=== PATIENT | female | born 1990 | race Caucasian/White ===

== ENCOUNTER 2018-06-07 02:19 | Outpatient (CLI) | payer BC, SELFPAY ==
--- NOTE | 2018-06-07 08:25 | DI.RAD_ITS ---
SYMPTOM/DIAGNOSIS: ABD PAIN, NAUSEA AROUND TIME OF EATING, R10.9 ABDOMINAL ULTRASOUND: Routine examination was performed. The aorta and IVC are unremarkable. The liver has a normal appearance. The gallbladder and common duct are unremarkable. The pancreatic tail cannot be seen but the remainder of the pancreas is unremarkable. The spleen and kidneys have a normal appearance. IMPRESSION: Negative abdominal ultrasound.
== END 2018-06-07 02:39 ==
PROVIDERS: PCP Pediatrics; Visit Provider Family Medicine
DX: R10.9 Unspecified abdominal pain (principal); R11.0 Nausea
CPT/HCPCS: 76700

== ENCOUNTER 2018-06-28 01:39 | Outpatient (CLI) | payer BC, SELFPAY ==
--- NOTE | 2018-06-28 08:30 | DI.NM_ITS ---
SYMPTOMS/DIAGNOSIS: ABDOMINAL PAIN AND NAUSEA X 3 MONTHS, R10.9 CCK HEPATOBILIARY SCAN: 5.1 mCi of technetium 99m mebrofenin were administered IV. There is prompt visualization of the small bowel and gallbladder. 1.2 mcg of CCK was infused over 45 minutes. The patient experienced mild abdominal pain similar to her previous symptoms. The gallbladder ejection fraction is normal and calculated at 92%. IMPRESSION: Normal gallbladder ejection fraction of 92%.
== END 2018-06-28 01:59 ==
PROVIDERS: PCP Family Medicine; Visit Provider Family Medicine
DX: R10.84 Generalized abdominal pain (principal); R11.0 Nausea
CPT/HCPCS: 78227

== ENCOUNTER 2019-09-01 17:04 | Emergency (ER) | payer MEDICAID, SELFPAY ==
[2019-09-01 17:10] VITALS: BP 148/89; PULSE 102; RESP 16; TEMP 36.8; O2SAT 97
--- NOTE | 2019-09-01 17:28 | W.ED.GENAD ---
Discharge Plan Disposition Patient Disposition: HOME Condition: Stable Discharge Details Chief Complaint: Orthopedic Clinical Impression: Sprain of forearm, left Primary Care Provider: Jaqui Romero ED Provider: Geraldo Umaña Home Meds and New Rx's Prescriptions: No Action No Known Home Meds RF: 0 Discharge Instructions Instructions: Sprain (ED) Additional Instructions: Avoid activities that worsen pain. Rest your arm over the next 1 to 2 weeks. Please use wrist splint for the next 1 to 2 weeks. Please take ibuprofen over the counter. Take 600mg by mouth every 6 hours as needed for pain. Please contact your primary care physician to arrange follow-up. Return to the ER for any worsening or new concerning symptoms. If symptoms persist despite treatment, you will need additional work-up including potential diagnostic imaging. Referrals: Jaqui Romero [Primary Care Provider] - Medical Decision Making 28-year-old female here with pain, tenderness and mild swelling distal posterior forearm over the past 2 days after raking leaves. Suspect forearm strain/sprain. Plan for immobilization with splint and increased dose of NSAID. NSAID dosing was reviewed with the patient. Patient was encouraged to rest her arm and maintain immobilization. We discussed imaging forearm. While I do not think acute fracture is present, there are other potential bony abnormalities that could result in presentation. Patient provided informed refusal of imaging at this time and noted that she would plan on obtaining imaging should symptoms not improve with conservative management. Usual and customary discharge instructions were provided. I did stress the need to return immediately should she have any worsening or new concerning symptoms and to return for repeat assessment should symptoms not improve. HPI General Mode of arrival: ambulatory. Date/Time Provider Initiated Documentation: 09/01/19 17:28. Limitations to Documentation: no limitations. Information obtained by: patient. HPI Narrative: 28-year-old female presents with chief complaint of left forearm pain. Pain started 2 days ago and has persisted despite taking intermittent ibuprofen. Patient notes pain started the evening after raking leaves. Pain is moderate and worse with movement of her wrist. She denies any associated direct trauma to her wrist or forearm. No associated rash or fever. She does not recall any particular injury. Related Data Home Medications Medication Instructions Recorded Confirmed Unknown [No Known Home Meds] 09/01/19 09/01/19 Allergies Allergy/AdvReac Type Severity Reaction Status Date / Time No Known Allergies Allergy Unverified 09/01/19 17:15 General Stated Complaint: Orthopedic ALYSIA: 4 Review of Systems Constitutional Constitutional: Denies fever(s) Musculoskeletal Musculoskeletal: Reports as per HPI [facility] Social History Smoking/Tobacco Use Status: Never Alcohol Intake: current Alcohol Intake frequency: holidays/special occasions only Substance use type: does not use Do you feel safe at home: Yes Do you feel safe in your relationship?: Yes Exam Const General: cooperative and healthy appearing Cardio Rate: regular rate Rhythm: regular rhythm Pulses: radial pulses present on the left 2+ Extrem Right upper extremity: elbow/forearm Details: tenderness Location: other (Distal forearm posteriorly), swelling (Mid to distal posterior forearm mild) and other (Pain with supination and extension at wrist); no unusual warmth, no abrasions and no ecchymosis and wrist Details: no tenderness and no swelling Course Vital Signs Vital signs: Vital Signs Temperature 36.8 C 09/01/19 17:10 Pulse 102 H 09/01/19 17:10 Respiratory Rate 16 09/01/19 17:10 Blood Pressure 148/89 H 09/01/19 17:10 Pulse Oximetry 97 09/01/19 17:10 Temperature 36.8 C 09/01/19 17:10 Temperature Source Tympanic 09/01/19 17:10 Pulse 102 H 09/01/19 17:10 Respiratory Rate 16 09/01/19 17:10 Respiratory Effort Non-Labored 09/01/19 17:14 Blood Pressure 148/89 H 09/01/19 17:10 Blood Pressure Position Sitting 09/01/19 17:10 Pulse Oximetry 97 09/01/19 17:10 Oxygen Delivery Method Room Air 09/01/19 17:10 Oxygen Flow Rate 0 09/01/19 17:10 Pain Level 7 09/01/19 17:10
== END 2019-09-01 17:46 | disposition home or self-care (01) ==
PROVIDERS: Emergency Provider Student in an Organized Health Care Education/Training Program; PCP Family Medicine
DX: S63.592A Other specified sprain of left wrist, initial encounter (principal); X50.3XXA Overexertion from repetitive movements, initial encounter
CPT/HCPCS: 29125; 99283; L3908

== ENCOUNTER 2020-06-28 02:37 | Outpatient (CLI) | payer MEDICAID, SELFPAY ==
--- NOTE | 2020-06-28 | DI.US_ITS ---
EXAM: MG MAMMO DIAGNOSTIC BI CLINICAL HISTORY: DIAGNOSTIC, RT BREAST LUMP, N63.0. TECHNIQUE: Craniocaudal and mediolateral oblique Full Field Digital Mammography views with Computer Aided Diagnosis followed by Tomosynthesis and right breast ultrasound. COMPARISON: No previous for comparison. FINDINGS: Mammography/Tomosynthesis: Masses/Architectural Distortion: There is a 3 cm spiculated mass with associated architectural distor tion and microcalcifications 3 cm from the nipple. This corresponds to the palpable abnormality. Microcalcifictions: Please see the above discussion Skin Thickening/Nipple Retraction: None. Right breast US: Echotexture: Please see below. Shadowing: Please see below. Cyst: None. Solid lesions: There is a 3.2 x 1.2 cm hypoechoic spiculated area at the 12 o'clock position of the r ight breast immediately adjacent to the nipple. There is an associated hypoechoic nodule measuring 0 .7 cm with irregular borders. This area corresponds to the mammographic and palpable abnormality. Ductal dilation: None. Axilla: 4 well-circumscribed hypoechoic nodes are seen in the axilla. The largest measures 1.6 cm in length. IMPRESSION: 1. 3 cm spiculated mass with associated architectural distortion of microcalcifications in the retroa reolar region consistent with the patient's palpable abnormality. 2. Findings are suspicious for malignancy. 3. The findings were discussed with the patient on the date of the examination. BI-RADS Category 5 - Highly Suggestive of Malignancy: Biopsy recommended Breast Density - Category C - Heterogeneously dense Breast density Category C or D implies that the patient has dense breast tissue. Dense breast tissue can make it harder to find cancer on a mammogram. Dense breast tissue is also associated with an incr eased risk of breast cancer. This information about the result of the mammogram report was provided to the patient to raise their awareness. Use this report when you speak with the patient about their risks for breast cancer, which includes their family history. At that time, you may recommend additional screening tests (Ultrasoun d or MRI) as these tests may add significant information. A negative radiographic report should not delay biopsy if a dominant or clinically suspicious mass is present. Up to ten percent of cancers are not identified on mammography. A negative report may reinforce clinical impression. Adenosis and dense breasts may obscure an underlying neoplasm. False positive reports average 6 to 10%. Patient will receive a letter notifying them of these results.
== END 2020-06-28 02:57 ==
PROVIDERS: PCP Nurse Practitioner Family; Visit Provider Nurse Practitioner Family
DX: R92.0 Mammographic microcalcification found on diagnostic imaging of breast (principal); R92.8 Other abnormal and inconclusive findings on diagnostic imaging of breast
CPT/HCPCS: 76642; 77062; 77066; G0279

== ENCOUNTER 2020-07-07 18:30 | Emergency (ER) | payer MEDICAID, SELFPAY ==
[2020-07-07 18:37] VITALS: BP 161/98; PULSE 99; RESP 18; TEMP 37.2; O2SAT 99
--- NOTE | 2020-07-07 19:14 | ED.GENADUL_ITS ---
Discharge Plan Disposition Patient Disposition: HOME Condition: Stable Discharge Details Clinical Impression: Dry mouth, Throat discomfort Primary Care Provider: Charleen Williamson ED Provider: Valarie Madden Home Meds and New Rx's Prescriptions: No Action fluoxetine 10 mg capsule 20 mg PO DAILY RF: 0 Mucinex DM 30-600 mg Tablet Extended Release 12 Hr 1 tab PO PRN PRNRF: 0 Discharge Instructions Instructions: Pharyngitis (ED), Dry Mouth (ED) Additional Instructions: Gargle with warm salt water up to 3 times daily as needed. Increase oral fluids. Please discuss your symptoms with your primary care provider. Follow up with primary care provider in 3-5 days. Return to ED sooner if any worsening or concerns. Increase oral fluids. Please take Tylenol or Ibuprofen with food every 4-6 hours as needed for pain and swelling. The strep swab obtained today was negative. As always thank you for allowing us to care for you if you have any other concerns, hesitate to return to the ED. Referrals: Charleen Williamson [Primary Care Provider] - Medical Decision Making 29-year-old female presents to the ER chief complaint of dry mouth and throat irritation. She attributes the symptoms to new diet medication of Prozac which she has been taking for approximately 2 weeks increased dose just yesterday to 20 mg by her PCP. She also reports some increased phlegm to her her throat, she denies any productive cough, fever, myalgias or chills. She does endorse a rece nt diagnosis of breast cancer she does have upcoming follow-up through her PCP for this. At this time rapid strep swab ordered and obtained. POC rapid strep negative. Patient does appear anxious, I did offer anxiety medications. Patient prefers to follow-up with PCP regarding this. Patient was instructed to increase oral fluids, suck on hard candies if needed for dry mouth. Patient is hemodynamically stable, no tachycardia, no increased work of breathing no evidence of shortness of breath or cough. Patient instructed to follow-up with PCP. This text was generated using [employer] system, please disregard any oddities of phrase or misspellings. HPI General Mode of arrival: ambulatory . Date/Time Provider Initiated Documentation: 07/07/20 18:43 . Limitations to Documentation: no limitations . Information obtained by: patient . HPI Narrative: 29-year-old female presents to the ER chief complaint of dry mouth and throat irritation. She attributes the symptoms to new diet medication of Prozac which she has been taking for approximately 2 weeks increased dose just yesterday to 20 mg by her PCP. She also reports some increased phlegm to her her throat, she denies any productive cough, fever, myalgias or chills. She does endorse a recent diagnosis of breast cancer she does have upcoming follow-up through her PCP for this. Related Data Home Medications Medication Instructions Recorded Confirmed dextromethorphan-guaifenesin 1 tab PO PRN PRN 07/07/20 07/07/20 [Mucinex DM] fluoxetine 20 mg PO DAILY 07/07/20 07/07/20 Allergies Allergy/AdvReac Type Severity Reaction Status Date / Time No Known Allergies Allergy Unverified 07/07/20 18:42 General Stated Complaint: GenMedical ALYSAI: 4 Review of Systems Narrative: Constitutional: Negative for weight loss, alert and oriented, well groomed, normal body habitus, appears comfortable. HEENT: Denies trauma, headaches, blurry vision, nasal discharge, trouble swallowing. Dry mouth, throat irritation. Chest: Denies chest pain, palpitations, irregular rhythm, hypertension. Respiratory: Denies Shortness of breath, cough, hemoptysis. GI: Denies abdominal pain, nausea, vomiting, diarrhea, constipation. : Denies dysuria, hematuria, flank pain, rectal bleeding. Neuro: Denies dizziness, blurry vision, weakness, syncope, headache or facial numbness. Hematologic: Denies easy bruising, intolerance to heat or cold, hair loss. [facility] Social History Smoking/Tobacco Use Status: Never Smoking risk assessment performed?: Yes Alcohol Intake: current Alcohol Intake frequency: holidays/special occasions only Drug use: Never Substance use type: does not use Do you feel safe at home: Yes Do you feel safe in your relationship?: Yes Exam Narrative Exam Narrative: Constitutional: Alert and oriented x3. Appears stated age. Normal body habitus. Head: Normocephalic, no trauma. Eyes: Pupils PERRLA, Red reflex noted, EOM's intact. Eyelids symmetrical without lesions, discharge, or swelling. ENT: Bilateral TM's WNL, External ear normal to inspection, no mastoid TTP, swelling, or erythema, Nasal turbinates WNL, no nasal discharge. Normal dentition, Posterior pharynx mildly erythemic tonsils 2+ bilaterally, uvula midline,, no exudate. Chest: RRR, Normal S1, S2, distal pulses intact. Resp: Lungs clear to auscultation bilaterally, no wheezes, rales, or rhonchi. Musculoskeletal: Normal gait, 5/5 strength to all four extremities. Skin: No suspicious rashes or lesions. Capillary refill less than 2 sec. Neurologic: Cranial nerves II-XII intact. Alert and oriented x 3. DTR's intact. Hematologic/Lymphatic: No ecchymosis, no lymphadenopathy. Course Vital Signs Vital signs: Vital Signs Temperature 37.2 C 07/07/20 18:37 Pulse 99 H 07/07/20 18:37 Respiratory Rate 18 07/07/20 18:37 Blood Pressure 161/98 H 07/07/20 18:37 Pulse Oximetry 99 07/07/20 18:37 Temperature 37.2 C 07/07/20 18:37 Temperature Source Temporal Artery Scan 07/07/20 18:37 Pulse 99 H 07/07/20 18:37 Respiratory Rate 18 07/07/20 18:37 Respiratory Effort Non-Labored 07/07/20 18:43 Blood Pressure 161/98 H 07/07/20 18:37 Blood Pressure Position Sitting 07/07/20 18:37 Pulse Oximetry 99 07/07/20 18:37 Oxygen Delivery Method Room Air 07/07/20 18:37 Oxygen Flow Rate 0 07/07/20 18:37 Pain Level 3 07/07/20 18:37
[2020-07-07 19:59] VITALS: RESP 14
[2020-07-07 20:33] VITALS: BP 148/89; PULSE 77; RESP 16; O2SAT 97
== END 2020-07-07 20:43 | disposition home or self-care (01) ==
PROVIDERS: Emergency Provider Registered Nurse Emergency; PCP Nurse Practitioner Family
DX: R68.2 Dry mouth, unspecified (principal); J02.9 Acute pharyngitis, unspecified
CPT/HCPCS: 87880; 99283; 99282

== ENCOUNTER 2021-01-21 10:28 | Outpatient (RCR) | payer MEDICAID, SELFPAY ==
[2021-01-21 14:29] LABS: HCG Qual (Urine) Negative
== END 2021-01-24 23:59 | disposition home or self-care (01) ==
LOC: INF 10:28
PROVIDERS: PCP Nurse Practitioner Family; Visit Provider Radiology Radiation Oncology
DX: C50.111 Malignant neoplasm of central portion of right female breast (principal); Z45.2 Encounter for adjustment and management of vascular access device; Z17.0 Estrogen receptor positive status [ER+]
CPT/HCPCS: 81025

== ENCOUNTER 2021-05-21 03:36 | Outpatient (RCR) | payer MEDICAID, SELFPAY ==
[2021-04-30 08:42] LABS: Abs Immature Grans 0.01 10^3/uL (0.0-0.06); Absolute Basophil Count 0.05 10^3/uL (0.0-0.2); Absolute Eosinophil Count 0.05 10^3/uL (0.0-0.7); Absolute Lymphocyte Count 1.39 10^3/uL (1.2-3.4); Absolute Monocyte Count 0.46 10^3/uL (0.1-0.8); Absolute Neutrophil Count 3.39 10^3/uL (1.2-6.7); Basophils % 0.9; Eosinophils % 0.9; HCT 36.8 % (36.0-46.0); HGB 12.3 g/dL (11.2-15.7); Immature Grans % 0.2; MCH 30.4 pg (27.0-33.0); MCHC 33.4 % (32.0-36.0); MCV 91.1 fL (80-95); MPV 8.4 fL (8.0-11.0); Monocytes % 8.6; Neutrophils % 63.4; Nucleated RBC 0 %; Platelet Count 203 10^3/uL (130-400); RBC 4.04 10^6/uL (3.93-5.22); RDW 11.9 % (11.7-14.6); RDW-SD 39.8 fL; WBC 5.35 10^3/uL (4.4-10.8)
[2021-04-30] MEDS: Normal Saline Flush 10 ML SYR IVP (08:50)
[2021-04-30 09:10] LABS: ALT 26 U/L (14-59); AST 18 U/L (15-37); Albumin 3.8 g/dL (3.4-5.0); Alkaline Phosphatase 74 U/L (46-116); Anion Gap 8.9 mmol/L (3-11); BUN 16 mg/dL (7-18); Bilirubin, Total 0.4 mg/dL (0.2-1.0); CO2 28.1 mmol/L (21.0-32.0); CREATININE 0.8 mg/dL (0.55-1.02); Calcium 9.2 mg/dL (8.5-10.1); Chloride 104 mmol/L (98-107); Glucose 105 mg/dL (74-106); Potassium 3.7 mmol/L (3.5-5.1); Sodium 141 mmol/L (136-145); Total Protein 8.2 g/dL (6.4-8.2)
[2021-05-21] MEDS: Normal Saline Flush 10 ML SYR IVP (13:15)
[2021-05-21 13:29] LABS: Abs Immature Grans 0.02 10^3/uL (0.0-0.06); Absolute Basophil Count 0.05 10^3/uL (0.0-0.2); Absolute Eosinophil Count 0.05 10^3/uL (0.0-0.7); Absolute Lymphocyte Count 1.17 10^3/uL (1.2-3.4); Absolute Monocyte Count 0.79 10^3/uL (0.1-0.8); Absolute Neutrophil Count 4.29 10^3/uL (1.2-6.7); Basophils % 0.8; Eosinophils % 0.8; HCT 37.7 % (36.0-46.0); HGB 13.2 g/dL (11.2-15.7); Immature Grans % 0.3; Lymphocytes % 18.4; MCH 31.1 pg (27.0-33.0); MCV 88.9 fL (80-95); MPV 8.7 fL (8.0-11.0); Monocytes % 12.4; Neutrophils % 67.3; Nucleated RBC 0 %; Platelet Count 178 10^3/uL (130-400); RBC 4.24 10^6/uL (3.93-5.22); RDW 11.9 % (11.7-14.6); RDW-SD 38.1 fL; WBC 6.37 10^3/uL (4.4-10.8)
[2021-05-21 13:40] LABS: ALT 56 U/L (14-59); AST 31 U/L (15-37); Albumin 3.8 g/dL (3.4-5.0); Alkaline Phosphatase 91 U/L (46-116); Anion Gap 7.7 mmol/L (3-11); BUN 13 mg/dL (7-18); Bilirubin, Total 0.3 mg/dL (0.2-1.0); CO2 29.3 mmol/L (21.0-32.0); CREATININE 0.8 mg/dL (0.55-1.02); Calcium 9.2 mg/dL (8.5-10.1); Chloride 102 mmol/L (98-107); Glucose 115 mg/dL (74-106); Potassium 3.7 mmol/L (3.5-5.1); Sodium 139 mmol/L (136-145); Total Protein 8.7 g/dL (6.4-8.2)
== END 2021-05-27 23:59 | disposition home or self-care (01) ==
LOC: INF 03:36
PROVIDERS: PCP Nurse Practitioner Family; Visit Provider Internal Medicine
DX: C50.911 Malignant neoplasm of unspecified site of right female breast (principal); Z45.2 Encounter for adjustment and management of vascular access device
CPT/HCPCS: 36591; 80053; 85025

== ENCOUNTER 2022-06-03 20:49 | Outpatient (REF) | payer MEDICAID, SELFPAY ==
[2022-06-03 23:14] LABS: Magnesium 1.5 mg/dL (1.8-2.4); Vitamin B12 527 pg/mL (193-986)
== END 2022-06-03 20:50 | disposition home or self-care (01) ==
LOC: NCHCN 20:49
PROVIDERS: PCP Nurse Practitioner Family; Visit Provider Nurse Practitioner Family
DX: I10 Essential (primary) hypertension (principal); F41.8 Other specified anxiety disorders; G47.62 Sleep related leg cramps; R68.89 Other general symptoms and signs
CPT/HCPCS: 82607; 83735

== ENCOUNTER 2022-08-04 16:55 | Emergency (ER) | payer MEDICAID, SELFPAY ==
[2022-08-04] VITALS (14 sets, daily range): BP systolic 111–115; BP diastolic 65–70; PULSE 78–91; RESP 15–26; TEMP 37.2; O2SAT 97–99
[2022-08-04 17:24] LABS: Abs Immature Grans 0.05 10^3/uL (0.0-0.06); Absolute Basophil Count 0.04 10^3/uL (0.0-0.2); Absolute Eosinophil Count 0.03 10^3/uL (0.0-0.7); Absolute Lymphocyte Count 1.03 10^3/uL (1.2-3.4); Absolute Monocyte Count 0.66 10^3/uL (0.1-0.8); Absolute Neutrophil Count 8.04 10^3/uL (1.2-6.7); Basophils % 0.4; Eosinophils % 0.3; HCT 37.6 % (36.0-46.0); HGB 13.3 g/dL (11.2-15.7); Immature Grans % 0.5; Lymphocytes % 10.5; MCH 31.4 pg (27.0-33.0); MCHC 35.4 % (32.0-36.0); MCV 89 fL (80-95); Monocytes % 6.7; Neutrophils % 81.6; Platelet Count 130 10^3/uL (130-400); RBC 4.23 10^6/uL (3.93-5.22); RDW 11.4 % (11.7-14.6); RDW-SD 36.8 fL; WBC 9.85 10^3/uL (4.4-10.8)
[2022-08-04 17:39] LABS: ALT 35 U/L (14-59); AST 45 U/L (15-37); Albumin 3.5 g/dL (3.4-5.0); Alkaline Phosphatase 83 U/L (46-116); Anion Gap 6.8 mmol/L (3-11); BUN 13 mg/dL (7-18); Bilirubin, Total 0.4 mg/dL (0.2-1.0); CO2 26.2 mmol/L (21.0-32.0); CREATININE 0.8 mg/dL (0.55-1.02); Calcium 9.1 mg/dL (8.5-10.1); Chloride 101 mmol/L (98-107); Estimated GFR 102.22 (mL/min/1.73m2); Glucose 125 mg/dL (74-106); Magnesium 1.5 mg/dL (1.8-2.4); Sodium 134 mmol/L (136-145); Total Protein 8.2 g/dL (6.4-8.2)
[2022-08-04] MEDS: Prochlorperazine 10 MG/2 ML VIAL IVP (17:39)
[2022-08-04] MEDS: Normal Saline 50 ML 200 ML (17:39)
[2022-08-04] MEDS: Lactated Ringers 1,000 ML 1000 ML IV (17:39)
[2022-08-04] MEDS: MAGNESIUM SULFATE 1 GM/100 ML BAG IVPB (17:58)
--- NOTE | 2022-08-04 18:33 | ED.GENADUL_ITS ---
Discharge Plan Disposition Patient Disposition: Home Discharge Details Clinical Impression: Nausea & vomiting, Hypomagnesemia Primary Care Provider: Charleen Williamson ED Provider: Preeti Gallegos Home Meds and New Rx's Prescriptions: New prochlorperazine maleate [Compazine] 10 mg tablet 10 mg PO Q6H PRNQty: 10 0RF magnesium gluconate 30 mg (550 mg) tablet 30 mg PO BID Qty: 10 0RF Continued fluoxetine 10 mg capsule 20 mg PO DAILY Patient Comments: not taking Mucinex DM 30-600 mg Tablet Extended Release 12 Hr 1 tab PO PRN PRN trazodone 50 mg tablet 150 mg PO QHS Patient Comments: TAKE 3 TABLETS BY MOUTH EVERY NIGHT sertraline 100 mg tablet 200 mg PO DAILY Patient Comments: TAKE 2 TABLETS BY MOUTH EVERY DAY omeprazole 40 mg capsule,delayed release(DR/EC) 40 mg PO DAILY Patient Comments: TAKE 1 CAPSULE BY MOUTH EVERY DAY DIRECTED. INCREASE IN DOSAGE PER REQUEST OF ONCOLOGY meloxicam 7.5 mg tablet 7.5 mg PO DAILY Patient Comments: TAKE 1 TABLET BY MOUTH DAILY. MAY INCREASE TO 2 TABLETS DAILY NEEDED magnesium oxide 400 mg (241.3 mg magnesium) tablet 400 mg PO DAILY propranolol 20 mg tablet 20 mg PO BID Patient Comments: TAKE 1 TABLET BY MOUTH TWICE DAILY DIRECTED hydroxyzine HCl 10 mg tablet 10 mg PO PRN PRN Patient Comments: TAKE 1 TO 2 TABLETS BY MOUTH EVERY 8 HOURS NEEDED ondansetron 4 mg tablet,disintegrating 4 mg PO PRN PRN Patient Comments: PLACE ONE TABLET ON THE TONGUE AND ALLOW TO DISSOLVE EVERY 6 HOURS NEEDED tamoxifen 20 mg tablet 20 mg PO DAILY Patient Comments: Take 1 tablet by mouth once a day vitamin B complex-folic acid 0.4 mg tablet 1 tab PO DAILY melatonin 5 mg Tablet 10 mg PO HS PRN Discharge Instructions Instructions: Acute Nausea and Vomiting (ED) Additional Instructions: Take Compazine as needed for nausea and vomiting Take magnesium as as prescribed as your magnesium is low, follow-up with your doctor regarding this finding Please be reevaluated should you have persistent, new, or worsening symptoms Stand Alone Forms: Work Release Referrals: Charleen Williamson [Primary Care Provider] - 1 day Discharge Data Discharge Date/Time-TO BE ENTERED AT DEPARTURE: 08/04/22 19:06 Medical Decision Making 31-year-old presents with nausea in the absence of vomiting Appears well, diagnostic labs within normal limits Aside from magnesium which is slightly low, given IV magnesium and will increase her supplementation at home Encouraged to follow-up with her doctor Given antiemetics for home, able to tolerate p.o. after fluids and Reglan in the emergency department Return precautions reviewed and patient expressed understanding, discharged home stable condition with stable vitals Medical Records Medical records reviewed: Yes I reviewed the patient's medical records. Lab Data Lab results reviewed: Yes I reviewed the patient's lab results. HPI General Date/Time Provider Initiated Documentation: 08/04/22 17:01 . HPI Narrative: This 31-year-old female with history of hypertension and breast cancer presents with report of nausea that started approximately an hour ago. Denies fever or chills. Denies any chance of . Denies chest pain or shortness of breath. Denies known spoiled food exposure Related Data Home Medications Medication Instructions Recorded Confirmed dextromethorphan-guaifenesin 30 1 tab PO PRN PRN 07/07/20 08/04/22 mg-600 mg tablet extended [id number] hr (Mucinex DM) fluoxetine 10 mg capsule 20 mg PO DAILY 07/07/20 08/04/22 hydroxyzine HCl 10 mg tablet 10 mg PO PRN PRN 08/04/22 08/04/22 magnesium gluconate 30 mg (550 mg) 30 mg PO BID #10 tabs 08/04/22 tablet magnesium oxide 400 mg (241.3 mg 400 mg PO DAILY 08/04/22 08/04/22 magnesium) tablet melatonin 5 mg tablet 10 mg PO HS PRN 08/04/22 08/04/22 meloxicam 7.5 mg tablet 7.5 mg PO DAILY 08/04/22 08/04/22 omeprazole 40 mg capsule,delayed 40 mg PO DAILY 08/04/22 08/04/22 release ondansetron 4 mg disintegrating 4 mg PO PRN PRN 08/04/22 08/04/22 tablet prochlorperazine maleate 10 mg 10 mg PO Q6H PRN #10 tabs 08/04/22 tablet (Compazine) propranolol 20 mg tablet 20 mg PO BID 08/04/22 08/04/22 sertraline 100 mg tablet 200 mg PO DAILY 08/04/22 08/04/22 tamoxifen 20 mg tablet 20 mg PO DAILY 08/04/22 08/04/22 trazodone 50 mg tablet 150 mg PO QHS 08/04/22 08/04/22 vitamin B complex-folic acid 0.4 1 tab PO DAILY 08/04/22 08/04/22 mg tablet Previous Rx's Medication Instructions Recorded magnesium gluconate 30 mg (550 mg) 30 mg PO BID #10 tabs 08/04/22 tablet prochlorperazine maleate 10 mg 10 mg PO Q6H PRN #10 tabs 08/04/22 tablet (Compazine) Allergies Allergy/AdvReac Type Severity Reaction Status Date / Time silver AdvReac Mild Topical Unverified 08/04/22 17:02 [From Tegaderm AG Mesh] Irritation General Stated Complaint: Nausea/Vomit/Diar ALYSIA: 3 PFSH All Active Problems (Updated 08/04/22 @ 18:51 by PAYTON Frank) Dry mouth (Acute) Throat discomfort (Acute) Nausea & vomiting (Acute) Hypomagnesemia (Acute) Social History Smoking/Tobacco Use Status: Never Smoking risk assessment performed?: Yes Alcohol Intake: current Alcohol Intake frequency: holidays/special occasions only Drug use: Never Substance use type: does not use Do you feel safe at home: Yes Do you feel safe in your relationship?: Yes Exam Const General: cooperative, comfortable and no acute distress Orientation: alert and oriented x3 Eyes Pupils: PERRL Resp Effort & Inspection: normal respiratory effort Auscultation: clear to auscultation bilaterally Cardio Rate: regular rate Rhythm: regular rhythm GI Inspection: normal to inspection Other: Nontender Skin General skin exam: no rashes or lesions noted Neuro General: patient alert and patient oriented x3 Course Vital Signs Vital signs: Vital Signs Temperature 37.2 C 08/04/22 16:58 Pulse 78 08/04/22 16:58 Respiratory Rate 15 08/04/22 16:58 Blood Pressure 115/70 08/04/22 16:58 Pulse Oximetry 99 08/04/22 16:58 Temperature 37.2 C 08/04/22 16:58 Temperature Source Oral 08/04/22 16:58 Pulse 78 08/04/22 16:58 Respiratory Rate 15 08/04/22 16:58 Respiratory Effort Normal 08/04/22 17:00 Blood Pressure 115/70 08/04/22 16:58 Blood Pressure Position Sitting 08/04/22 16:58 Pulse Oximetry 99 08/04/22 16:58 Oxygen Delivery Method Room Air 08/04/22 16:58 Oxygen Flow Rate 0 08/04/22 16:58 Pain Level 0 08/04/22 16:58 Lab/Test Results Lab/Test Results: Laboratory Tests Range/Units 08/04/22 08/04/22 17:16 17:16 WBC (4.4-10.8) 10^3/uL 9.85 RBC (3.93-5.22) 10^6/uL 4.23 Hgb (11.2-15.7) g/dL 13.3 Hct (36.0-46.0) % 37.6 MCV (80-95) fL 89 MCH (27.0-33.0) pg 31.4 MCHC (32.0-36.0) % 35.4 RDW (11.7-14.6) % 11.4 L Plt Count (130-400) 10^3/uL 130 MPV (8.0-11.0) fL 8.0 Immature Gran % 0.5 Neutrophils % 81.6 Lymphocytes % 10.5 Monocytes % 6.7 Eosinophils % 0.3 Basophils % 0.4 Nucleated RBC % (0.0-0.3) % 0.0 Absolute Neutrophils (1.2-6.7) 10^3/uL 8.04 H Absolute Lymphocytes (1.2-3.4) 10^3/uL 1.03 L Absolute Monocytes (0.1-0.8) 10^3/uL 0.66 Absolute Eosinophils (0.0-0.7) 10^3/uL 0.03 Absolute Basophils (0.0-0.2) 10^3/uL 0.04 Sodium (136-145) mmol/L 134 L Potassium (3.5-5.1) mmol/L 4.0 Chloride (98-107) mmol/L 101 Carbon Dioxide (21.0-32.0) mmol/L 26.2 Anion Gap (3-11) mmol/L 6.8 BUN (7-18) mg/dL 13 Creatinine (0.55-1.02) mg/dL 0.8 Est GFR (CKD-EPI 2020) (mL/min/1.73m2) 102.22 Glucose (74-106) mg/dL 125 H Calcium (8.5-10.1) mg/dL 9.1 Magnesium (1.8-2.4) mg/dL 1.5 L Total Bilirubin (0.2-1.0) mg/dL 0.4 AST (15-37) U/L 45 H ALT (14-59) U/L 35 Alkaline Phosphatase (46-116) U/L 83 Total Protein (6.4-8.2) g/dL 8.2 Albumin (3.4-5.0) g/dL 3.5
[2022-08-04] MEDS: Prochlorperazine 10 MG TAB PO (19:00)
--- NOTE | 2022-08-05 08:00 | NUR.NOTE ---
Nursing Note: Accessed pt chart to determine whether or not pt had an MRI ordered. DI called stating that they had an order for her that matched another patient and was confirming her order. There was none documented and will DI will disregard the order for this patient.l
== END 2022-08-04 19:06 | disposition home or self-care (01) ==
PROVIDERS: Emergency Provider Physician Assistant; PCP Nurse Practitioner Family
DX: E83.42 Hypomagnesemia (principal); R11.2 Nausea with vomiting, unspecified; I10 Essential (primary) hypertension
CPT/HCPCS: 36415; 80053; 96361; 96365; 96375; 99284; 83735; 85025; J0780; J3475

== ENCOUNTER 2022-08-06 15:40 | Outpatient (REF) | payer MEDICAID, SELFPAY ==
[2022-08-06 21:36] LABS: Anion Gap 5.7 mmol/L (3-11); BUN 14 mg/dL (7-18); CO2 29.3 mmol/L (21.0-32.0); CREATININE 0.9 mg/dL (0.55-1.02); Calcium 8.4 mg/dL (8.5-10.1); Chloride 104 mmol/L (98-107); Estimated GFR 88.75 (mL/min/1.73m2); Glucose 85 mg/dL (74-106); Magnesium 1.6 mg/dL (1.8-2.4); Potassium 3.8 mmol/L (3.5-5.1); Sodium 139 mmol/L (136-145)
== END 2022-08-06 15:41 | disposition home or self-care (01) ==
LOC: NCHCN 15:40
PROVIDERS: PCP Nurse Practitioner Family; Visit Provider Nurse Practitioner Family
DX: E83.42 Hypomagnesemia (principal)
CPT/HCPCS: 80048; 83735

== ENCOUNTER 2022-08-21 10:05 | Outpatient (REF) | payer MEDICAID, SELFPAY ==
[2022-08-21 15:11] LABS: Magnesium 1.3 mg/dL (1.8-2.4)
== END 2022-08-21 10:06 | disposition home or self-care (01) ==
LOC: LBN 10:05
PROVIDERS: PCP Nurse Practitioner Family; Visit Provider Nurse Practitioner Family
DX: E83.42 Hypomagnesemia (principal)
CPT/HCPCS: 83735

== ENCOUNTER 2022-09-08 17:54 | Outpatient (REF) | payer OTHER, SELFPAY ==
[2022-09-08 15:45] LABS: Magnesium 1.5 mg/dL (1.8-2.4)
== END 2022-09-08 17:55 | disposition home or self-care (01) ==
LOC: NCHCN 17:54
PROVIDERS: PCP Nurse Practitioner Family; Visit Provider Nurse Practitioner Family
DX: E83.42 Hypomagnesemia (principal); G47.62 Sleep related leg cramps; I10 Essential (primary) hypertension; R51.9 Headache, unspecified; K30 Functional dyspepsia
CPT/HCPCS: 83735

== ENCOUNTER 2022-10-09 18:22 | Outpatient (REF) | payer OTHER, SELFPAY ==
[2022-10-09 15:24] LABS: Magnesium 1.3 mg/dL (1.8-2.4)
== END 2022-10-09 18:23 | disposition home or self-care (01) ==
LOC: NCHCN 18:22
PROVIDERS: PCP Nurse Practitioner Family; Visit Provider Nurse Practitioner Family
DX: E83.42 Hypomagnesemia (principal)
CPT/HCPCS: 83735

== ENCOUNTER 2022-11-11 16:04 | Outpatient (REF) | payer OTHER, SELFPAY ==
[2022-11-11 21:28] LABS: Abs Immature Grans 0.02 10^3/uL (0.0-0.06); Absolute Basophil Count 0.07 10^3/uL (0.0-0.2); Absolute Eosinophil Count 0.09 10^3/uL (0.0-0.7); Absolute Lymphocyte Count 1.94 10^3/uL (1.2-3.4); Absolute Monocyte Count 0.46 10^3/uL (0.1-0.8); Absolute Neutrophil Count 4.33 10^3/uL (1.2-6.7); Eosinophils % 1.3; HCT 36.4 % (36.0-46.0); HGB 12.6 g/dL (11.2-15.7); Immature Grans % 0.3; Lymphocytes % 28.1; MCH 31.6 pg (27.0-33.0); MCHC 34.6 % (32.0-36.0); MCV 91 fL (80-95); Monocytes % 6.7; Neutrophils % 62.6; RBC 3.99 10^6/uL (3.93-5.22); RDW 11.4 % (11.7-14.6); RDW-SD 38.4 fL; WBC 6.91 10^3/uL (4.4-10.8)
[2022-11-11 21:39] LABS: Iron 124 ug/dL (50-170); Total Iron Binding Capacity 382 ug/dL (250-450); Transferrin Sat 32 % (15-50)
[2022-11-11 21:46] LABS: Anion Gap 7.5 mmol/L (3-11); BUN 15 mg/dL (7-18); CO2 31.5 mmol/L (21.0-32.0); Calcium 9.5 mg/dL (8.5-10.1); Chloride 101 mmol/L (98-107); Estimated GFR 77.72 (mL/min/1.73m2); Ferritin 78 ng/mL (8-252); Glucose 105 mg/dL (74-106); Magnesium 1.6 mg/dL (1.8-2.4); Potassium 4.3 mmol/L (3.5-5.1); Sodium 140 mmol/L (136-145); TSH (W/Ref FT4) 1.99 uIU/mL (0.36-3.74)
[2022-11-11 21:59] LABS: Platelet Count 161 10^3/uL (130-400)
== END 2022-11-11 16:05 | disposition home or self-care (01) ==
LOC: NCHCN 16:04
PROVIDERS: PCP Nurse Practitioner Family; Visit Provider Nurse Practitioner Family
DX: E83.42 Hypomagnesemia (principal); I10 Essential (primary) hypertension; F41.8 Other specified anxiety disorders; K59.00 Constipation, unspecified; C50.111 Malignant neoplasm of central portion of right female breast; G47.62 Sleep related leg cramps
CPT/HCPCS: 80048; 82728; 83540; 83550; 83735; 84443; 85025

== ENCOUNTER 2022-12-04 09:56 | Outpatient (REF) | payer OTHER, SELFPAY ==
[2022-12-05 11:25] LABS: Varicella IgG Antibody Positive (See Note)
== END 2022-12-04 09:57 | disposition home or self-care (01) ==
LOC: NCHCN 09:56
PROVIDERS: PCP Nurse Practitioner Family; Visit Provider Nurse Practitioner Family
DX: Z11.59 Encounter for screening for other viral diseases (principal); Z02.0 Encounter for examination for admission to educational institution
CPT/HCPCS: 86787

== ENCOUNTER 2023-03-23 19:03 | Outpatient (CLI) | payer OTHER, SELFPAY ==
[2023-03-24 14:44] LABS: Hepatitis B Surface Ag Negative (Negative)
[2023-03-25 10:20] LABS: HBs Antibody, Quant >1000.0 mIU/mL (See Note); Hepatitis B Surface Ab Positive (See Note)
== END 2023-03-23 19:04 | disposition home or self-care (01) ==
LOC: LBO 19:04
PROVIDERS: PCP Nurse Practitioner Family; Visit Provider Nurse Practitioner Family
DX: Z02.1 Encounter for pre-employment examination (principal)
CPT/HCPCS: 36415; 86706; 87340

== ENCOUNTER 2023-07-28 15:27 | Outpatient (REF) | payer OTHER, SELFPAY ==
--- NOTE | 2023-07-28 09:15 | PAPFT_PTH ---
PATIENT: Alis Silva LOC: [id number] AGE/SX: 32/F ROOM: RE07/28/[address]: Charleen Williamson : 1990 BED: DIS: 07/28/2023 SPEC #: [id number] RECD: 07/28/23 18:01 STATUS: DANAE PANIAGUA #: [id number] VON: 07/28/23 09:[address]: Charleen Williamson DEPT: [facility] Cytology RECD BY: Preeti Winston Tissues: 1 - CX/ENDOCX FOR PAP SMEARS Procedures: PAP THIN PREP/UVM Screening HPV DNA PROBE Comments: [id number] (HPV 16 & 18/45)
== END 2023-07-28 15:28 | disposition home or self-care (01) ==
LOC: NCHCN 15:27
PROVIDERS: PCP Nurse Practitioner Family; Visit Provider Nurse Practitioner Family
DX: Z00.00 Encounter for general adult medical examination without abnormal findings (principal); Z12.4 Encounter for screening for malignant neoplasm of cervix; Z01.419 Encounter for gynecological examination (general) (routine) without abnormal findings; R87.810 Cervical high risk human papillomavirus (HPV) DNA test positive
CPT/HCPCS: 88142; 87624

== ENCOUNTER 2023-08-10 10:22 | Outpatient (REF) | payer OTHER, SELFPAY ==
[2023-08-10 16:05] LABS: ALT 29 U/L (14-59); AST 28 U/L (15-37); Albumin 3.6 g/dL (3.4-5.0); Alkaline Phosphatase 72 U/L (46-116); Anion Gap 8.6 mmol/L (3-11); BUN 18 mg/dL (7-18); Bilirubin, Total 0.4 mg/dL (0.2-1.0); CO2 27.4 mmol/L (21.0-32.0); Calculated LDL 86 mg/dL (<100); Chloride 106 mmol/L (98-107); Cholesterol 150 mg/dL (<200); Estimated GFR 77.72 (mL/min/1.73m2); Glucose 86 mg/dL (74-106); HDL Cholesterol 49 mg/dL (40-60); Magnesium 1.7 mg/dL (1.8-2.4); Sodium 142 mmol/L (136-145); Total Protein 7.9 g/dL (6.4-8.2); Triglyceride 77 mg/dL (<150); Vitamin B12 706 pg/mL (193-986)
== END 2023-08-10 10:23 | disposition home or self-care (01) ==
LOC: NCHCN 10:22
PROVIDERS: PCP Nurse Practitioner Family; Visit Provider Nurse Practitioner Family
DX: I10 Essential (primary) hypertension (principal); K30 Functional dyspepsia; M54.59 Other low back pain
CPT/HCPCS: 80053; 80061; 82607; 83735

== ENCOUNTER 2023-09-04 16:15 | Emergency (ER) | payer OTHER, SELFPAY ==
[2023-09-04 16:26] VITALS: BP 138/87; PULSE 85; RESP 18; TEMP 36.3; O2SAT 99
--- NOTE | 2023-09-04 16:30 | DI.RAD_ITS ---
Exam(s) XR KNEE RT 3V AP,LAT,MADHAVI EXAM: XR KNEE RT 3V AP,LAT,MADHAVI CLINICAL HISTORY: twisted on stairs, pain medial. TECHNIQUE: 2D digital imaging was performed of the right knee. Three views obtained. AP, lateral an d PA tunnel views were obtained. COMPARISON: No exams were available for comparison FINDINGS: BONES: No acute fracture is present. No bony destructive lesion is seen. JOINTS: The knee is normally aligned. No joint effusion is seen. SOFT TISSUE: Normal. IMPRESSION: Unremarkable radiographs of the right knee. DATA REPOSITORY: RADIATION DOSE DELIVERED:
--- NOTE | 2023-09-04 16:55 | ED.GENADUL_ITS ---
Discharge Plan Disposition Patient Disposition: Home Condition: Stable Discharge Details Clinical Impression: Right knee sprain, Right knee injury Primary Care Provider: Charleen Williamson ED Provider: Geraldo Umaña Home Meds and New Rx's Prescriptions: Continued acetylcysteine 600 mg capsule 600 mg PO BID Patient Comments: TAKE 1 CAPSULE BY MOUTH TWO TIMES A DAY Probacap 10 billion cell capsule 100 mmu cells PO DAILY biotin 1 mg capsule 1 mg PO DAILY trazodone 50 mg tablet 75 mg PO QHS Patient Comments: TAKE 3 TABLETS BY MOUTH EVERY NIGHT sertraline 100 mg tablet 200 mg PO DAILY Patient Comments: TAKE 2 TABLETS BY MOUTH EVERY DAY omeprazole 40 mg capsule,delayed release(DR/EC) 20 mg PO DAILY Patient Comments: TAKE 1 CAPSULE BY MOUTH EVERY DAY DIRECTED. INCREASE IN DOSAGE PER REQUEST OF ONCOLOGY propranolol 20 mg tablet 20 mg PO BID Patient Comments: TAKE 1 TABLET BY MOUTH TWICE DAILY DIRECTED hydroxyzine HCl 10 mg tablet 10 mg PO PRN PRN Patient Comments: TAKE 1 TO 2 TABLETS BY MOUTH EVERY 8 HOURS NEEDED vitamin B complex-folic acid 0.4 mg tablet 1 tab PO DAILY melatonin 5 mg Tablet 10 mg PO HS PRN magnesium gluconate 30 mg (550 mg) tablet 30 mg PO BID Qty: 10 0RF Discharge Instructions Instructions: Knee Sprain (ED) Additional Instructions: Please take ibuprofen over the counter. Take 600mg by mouth every 6 hours as needed for pain. Please take acetaminophen (tylenol) - 650mg every 6 hours by mouth as needed for pain. Please use hinged knee brace and crutches. Weight-bear as tolerated. If pain does not improve over the next 1 week, please follow-up with orthopedics. Avoid activities that worsen pain. Please contact your primary care physician to arrange follow-up. Return to the ER immediately for any worsening or new concerning symptoms. Stand Alone Forms: Work Release Referrals: [facility] [Provider Group] Charleen Williamson [Primary Care Provider] - Discharge Data Discharge Date/Time-TO BE ENTERED AT DEPARTURE: 09/04/23 17:21 HPI General Mode of arrival: ambulatory . Date/Time Provider Initiated Documentation: 09/04/23 16:44 . Limitations to Documentation: no limitations . Information obtained by: patient . HPI Narrative: 32-year-old female here after twisting her knee, sustaining injury this morning. Patient states she was going down the stairs and stepped and twisted her knee. Patient has pain medial knee. Associated mild swelling. No other injury sustained. No associated numbness or tingling. Related Data Home Medications Medication Instructions Recorded Confirmed hydroxyzine HCl 10 mg tablet 10 mg PO PRN PRN 08/04/22 09/04/23 magnesium gluconate 30 mg (550 mg) 30 mg PO BID #10 tabs 08/04/22 09/04/23 tablet melatonin 5 mg tablet 10 mg PO HS PRN 08/04/22 09/04/23 omeprazole 40 mg capsule,delayed 20 mg PO DAILY 08/04/22 09/04/23 release propranolol 20 mg tablet 20 mg PO BID 08/04/22 09/04/23 sertraline 100 mg tablet 200 mg PO DAILY 08/04/22 09/04/23 trazodone 50 mg tablet 75 mg PO QHS 08/04/22 09/04/23 vitamin B complex-folic acid 0.4 1 tab PO DAILY 08/04/22 09/04/23 mg tablet Lactobacillus acidophilus 10 100 mmu cells PO DAILY 09/04/23 09/04/23 billion cell capsule (Probacap) acetylcysteine 600 mg capsule 600 mg PO BID 09/04/23 09/04/23 biotin 1 mg capsule 1 mg PO DAILY 09/04/23 09/04/23 Previous Rx's Medication Instructions Recorded magnesium gluconate 30 mg (550 mg) 30 mg PO BID #10 tabs 08/04/22 tablet Allergies Allergy/AdvReac Type Severity Reaction Status Date / Time silver AdvReac Mild Topical Unverified 09/04/23 16:29 [From Tegaderm AG Mesh] Irritation General Stated Complaint: Orthopedic ALYSIA: 4 Review of Systems Musculoskeletal Musculoskeletal: Reports as per HPI Neurologic Neurologic: Reports as per HPI Exam Const General: cooperative and no acute distress [facility] Mouth: moist mucous membranes Cardio Rate: regular rate and not tachycardic Rhythm: regular rhythm Skin General skin exam: no rashes or lesions noted Neuro General: patient alert, patient awake, patient oriented x3 and tone normal Extrem Left lower extremity: knee Details: tenderness Location: of the medial joint line, swelling Location: of the patella (mild) and knee ligament exam abnormal Details: valgus stress test Details: pain noted Course Vital Signs Vital signs: Vital Signs Temperature 36.3 C L 09/04/23 16:26 Pulse 85 09/04/23 16:26 Respiratory Rate 18 09/04/23 16:26 Blood Pressure 138/87 09/04/23 16:26 Pulse Oximetry 99 09/04/23 16:26 Temperature 36.3 C L 09/04/23 16:26 Temperature Source Temporal Artery Scan 09/04/23 16:26 Pulse 85 09/04/23 16:26 Respiratory Rate 18 09/04/23 16:26 Respiratory Effort Normal, Non-Labored 09/04/23 16:35 Blood Pressure 138/87 09/04/23 16:26 Blood Pressure Position Sitting 09/04/23 16:26 Pulse Oximetry 99 09/04/23 16:26 Oxygen Delivery Method Room Air 09/04/23 16:26 Oxygen Flow Rate 0 09/04/23 16:26 Pain Level 7 09/04/23 16:35 Medical Decision Making 32-year-old female here after twisting her knee, sustaining injury this morning. Patient has pain medial knee. Mild swelling. Patient does have pain on valgus stress. ACL and PCL intact. Suspect lateral collateral ligament strain versus meniscal tear. Considered avulsion fracture. X-ray of the knee was reviewed and interpreted by radiology: Unremarkable radiographs of the right knee. Tylenol was provided for pain. Plan for hinged knee brace and crutches. Unfortunately no hinged knee brace available at this time. I will provide Aashish wrap and instructed the patient to seek hinged knee brace at pharmacy. All results were discussed with the patient. Usual customary discharge instructions were reviewed. Quality:SDOH Health Related Social Needs: No Data to Display PFSH All Active Problems Right knee injury (Acute) Right knee sprain (Acute) Throat discomfort (Acute) Dry mouth (Acute) Social History Smoking/Tobacco Use Status: Never Smoking risk assessment performed?: Yes Alcohol Intake: current Alcohol Intake frequency: holidays/special occasions only Drug use: Never Substance use type: does not use Do you feel safe at home: Yes Do you feel safe in your relationship?: Yes
[2023-09-04] MEDS: Acetaminophen 325 MG TAB 650 MG PO (17:05)
== END 2023-09-04 17:21 | disposition home or self-care (01) ==
LOC: ER 17:30
PROVIDERS: Emergency Provider Student in an Organized Health Care Education/Training Program; PCP Nurse Practitioner Family
DX: S83.92XA Sprain of unspecified site of left knee, initial encounter (principal); X50.1XXA Overexertion from prolonged static or awkward postures, initial encounter; Y93.01 Activity, walking, marching and hiking; Y92.89 Other specified places as the place of occurrence of the external cause
CPT/HCPCS: 73562; 99283

== ENCOUNTER 2024-02-24 14:40 | Outpatient (CLI) | payer OTHER, SELFPAY ==
[2024-02-24 15:44] LABS: TSH 2.46 uIU/mL (0.36-3.74)
[2024-02-24 23:18] LABS: Thyroperoxidase Antibody <28 U/mL (<=60)
[2024-02-25 09:33] LABS: Syphilis Serology (RPR) Negative (Negative)
[2024-02-25 09:36] LABS: HIV-1/2 Ag & Ab Screen Negative (Negative)
[2024-02-25 09:37] LABS: Rubella IgG Ab (UVM) Positive (See Note); Varicella IgG Antibody Positive (See Note)
[2024-02-25 12:41] LABS: Chlamydia Result Negative (Negative); GC Result Negative (Negative)
[2024-02-25 14:47] LABS: Hepatitis B Surface Ag Negative (Negative)
[2024-02-25 15:11] LABS: Hep B Core Antibody Negative (Negative)
[2024-02-25 15:41] LABS: Hepatitis C Ab w Rflx HCV PCR Negative (Negative)
[2024-02-26 13:19] LABS: Antimullerian Hormone 0.75 ng/mL (0.58-8.1)
== END 2024-02-24 14:41 | disposition home or self-care (01) ==
LOC: LBO 14:40
PROVIDERS: PCP Nurse Practitioner Family; Visit Provider Obstetrics & Gynecology
DX: Z11.3 Encounter for screening for infections with a predominantly sexual mode of transmission (principal); Z11.4 Encounter for screening for human immunodeficiency virus [HIV]; Z11.59 Encounter for screening for other viral diseases
CPT/HCPCS: 36415; 86704; 86787; 86803; 86850; 86900; 86901; 87340; 87389; 87491; 87591; 83520; 84443; 86376; 86592; 86762

== ENCOUNTER 2024-05-09 13:52 | Outpatient (REF) | payer OTHER, SELFPAY ==
--- OUTSIDE RECORDS SUMMARY | 2024-05-09 13:54 | XMS_ITS | Encounter Summary ---
Author Organization [facility] Address [facility] [place] [address] Care Team Providers Care Assistant Tennis Professional Name Role Phone Charleen Williamson APRN Primary Care Provider [phone] Reason for Visit * Reason Comments Follow-up Encounter Details Date Type Department Care Team (Late st Contact Info) Description 02/15/2024 1:00 PM EDT Office Visit Radiation Oncology at [address] [phone] Eleonora Mensah MD [facility] [address] S/P radiotherapy Social History Tobacco Use Types Packs/Day Years Used Date Smoking Tobacco: Never Smokeless Tobacco: Never Alcohol Use Standard Drinks/Week Comments Not Currently 0 (1 standard drink = 0.6 oz pur e alcohol) Overall Financial Resource Strain (CARDIA) Answe r Date Recorded How hard is it for you to pa y for the very basics like food, housing, medical care, and heating? Somewhat hard 04/23/2021 Hunger Vital Sign Answer Date Recorded Within the past 12 months, y ou worried that your food would run out before you got the money to buy more. Sometimes true Within the past 12 months, t he food you bought just didn't last and you didn't have money to get more. Never true PRAPARE - Transportation Answer Date Re corded In the past 12 months, has l ack of transportation kept you from medical appointments or from getting medications? No 03/28 In the past 12 months, has l ack of transportation kept you from meetings, work, or from getting things needed for daily living? No 04/23/2021 Housing Stability Vital Sign Answer Connor e Recorded In the last 12 months, was t here a time when you were not able to pay the mortgage or rent on time? No 04/23/2021 In the last 12 months, how many places have you lived? 1 04/23/2021 In the last 12 months, was t here a time when you did not have a steady place to sleep or slept in a residential (including now)? No 04/23/2021 Sex and Gender Information Value Date Recorded Sex Assigned at Female 07/19/2020 8:39 AM EDT Gender Identity Female 08/04/2022 1:11 PM EDT Sexual Orientation Straight 08/04/2022 1: 11 PM EDT documented as of this encounter Last Filed Vital Signs Vital Sign Reading Time Taken Comments Blood Pressure - - Pulse - - Temperature - - Respiratory Rate - - Oxygen Saturation - - Inhaled Oxygen Concentration - - Weight 82.9 kg (182 lb 12.8 oz) 024 1:07 PM EDT with shoes Height - - Body Mass Index 28.03 08/13/2023 1:33 PM EDT documented in this encounter Patient Instructions * Patient Instructions* Eleonora Mensah MD - 02/15/2024 1:00 PM EDT Osbaldo Alis. Your exam is without worrisome finding. Someone will contact you to schedule followup in 1 year. Eleonora documented in this encounter Progress Notes * Eleonora Mensah MD - 02/15/2024 1:00 PM EDT Images from the original note were not included. CC: Scheduled followup s/p xrt completion. HPI: Alis is a 33 y/o f who completed xrt 2 yr., 8 mos ago (06/03/21) for breast ca, R, invasive caw/ductal & lobular features, gr 2, ER+AR+, Her2+, cT3 cN1, s/p neoadjuvant TCHP, followed by R mastectomy w/NLOC excision clipped R axillary lymph node, unsuccessful SNB, ypT1b(m) ypN1mi, +LVI. Randomized on [id number] to ax dissxn, removing 13 lymph nodes, all neg. Xrt off protocol. Adjuvant TDM-1 concomitant w/xrt. Cabrera & goserelin started after xrt completion. 06/12/21 Dr. Cornejo, possible q 3 wk dosing of goserelin, continue TDM-1, start cabrera. 01/29/22 TDM-1 completed. 08/15/21 L mmg: Focal asymmetry L breast. 08/16/21 dx'ic L mmg: Neg 12/02/21 plain xray R hand: Diffuse soft tissue swelling. 12/02/21 bone scan: No definite skeletal metastases are present. Increased activity in multiple right-sided ribs is in a pattern most suggestive of fractures. Please correlate with a history of pain or trauma. If further clarification is needed, consider radiographs of the right-sided ribs. 02/11/22 MRI R hand: Cystic lesion within the volar subcutaneous tissues overlying the third finger proximal phalanx. This lesion has benign imaging features and likely represents a digital ganglion or mucoid cyst. 08/28/22 L mmg: Neg 08/28/22 Dr. Hunt, rtc 1 yr w/L mmg. 08/13/23 Dr. Cornejo, Stop tamoxifen and attempt with support from [facility]. - F/u with med onc after / or 2 years whichever comes sooner. 08/31/23 L mmg: No mammographic evidence of malignancy. IN VIEW OF HER RISK FACTORS AND BREAST DENSITY, BREAST MRI SCREENING SHOULD BE CONSIDERED IN ADDITION TO MAMMOGRAPHY. 09/16/23 Dr. Hunt, MRI breast, rtc 1 yr w/L mmg. 11/11/23 MRI B breast: Neg S: Continues to manage L hand/arm lymphedema w/sleeve which she wears @ night; lymphedema stable, doesn't change much. No new pain/lump. Past Medical History: Diagnosis Date Anxiety Breast cancer Depression Hypertension Lymphedema-right arm/ahnd No lupus/scleroderma. Past Surgical History: Procedure Laterality Date IR MEDIPORT PLACEMENT 07/23/2020 IR Mediport Placement [facility] INTERVENTIONL RAD IR MEDIPORT REMOVAL 02/13/2022 IR Mediport Removal 02/13/2022 Sena Green PA [facility] INTERVENTIONL RAD MAMMO US BIOPSY LYMPH NODE RIGHT Right 06/29/2020 Mammo US Biopsy Lymph Node Right 06/29/2020 Danni Osuna MD [facility] RAD MAMMOGRAPHY MAMMO US BIOPSY RIGHT Right 06/29/2020 Mammo Us Biopsy Right 06/29/2020 Danni Osuna MD [facility] RAD MAMMOGRAPHY MAMMO US NEEDLE LOCALIZATION RIGHT Right 01/03/2021 Mammo US Needle Localization Right 01/03/2021 Mili Burgos MD [facility] RAD MAMMOGRAPHY MRI GUIDED BIOPSY BREAST VACUUM ASSISTED LEFT Left 07/18/2020 MRI Guided Biopsy Breast Vacuum Assisted Left 07/18/2020 [facility] RAD MRI PRO BX/REMV, LYMPH NODE, DEEP AXILL Right 01/03/2021 BIOPSY OR EXCISION OF LYMPH NODE(S), OPEN, DEEP AXILLARY NODE(S) (WRVU 6.43) performed by Eulalio Hunt MD at [facility] MAIN OR PRO EXCISE BREAST LES W XRAY MARKER Right 01/03/2021 EXCISION LESION, BREAST W/ PREOP.MARKER (NEEDLE LOC.) (WRVU 6.69) performed by Eulalio Hunt, MDat [facility] MAIN OR PRO EXCISION LESION TENDON SHEATH OR JT CAPSULE, HAND OR FINGER Right 04/29/2022 EXCISION LESION TENDON SHEATH OR JOINT CAPSULE, HAND OR FINGER (WRVU 3.57) performed by Yoshi Abbasi MD at [facility] OSC PRO INTRAOP SENTINEL LYMPH ID W/DYE INJECTION Right 01/03/2021 INTRAOPERATIVE ID (MAPPING) SENTINEL LYMPH NODE,INCLUDES INJECTION (WRVU 2.5) performed by Eulalio Hunt MD at [facility] MAIN OR PRO MASTECTOMY, SIMPLE, COMPLETE Right 01/03/2021 MASTECTOMY, SIMPLE, COMPLETE (WRVU 15.85) performed by Eulalio Hunt MD at [facility] MAIN OR PRO REMOVE ARMPITS LYMPH NODES COMPLT Right 01/28/2021 LYMPHADENECTOMY, AXILLARY, COMPLETE (WRVU 13.87) performed by Eulalio Hunt MD at [facility] OSC Oral surgery Your Medications Accurate as of February 15, 2024 1:20 PM. If you have any questions, ask your nurse or doctor. Continued medications, unchanged Dose Details acetaminophen 500 mg tablet Commonly known as: Tylenol Take 2 tablets by mouth every 6 hours. 1,000 mg Quantity: 30 tablet Refills: 1 B Complex-Folic Acid 0.4 mg Tablet Take 1 tablet by mouth nightly. 1 tablet Refills: 0 hydrOXYzine 10 mg tablet Commonly known as: Atarax TAKE 1 TO 2 TABLETS BY MOUTH EVERY 8 HOURS NEEDED FOR ANXIETY Refills: 0 magnesium oxide 400 mg (241.3 mg magnesium) Tablet Commonly known as: Mag-Ox Take by mouth 2 times daily. Refills: 0 melatonin 5 mg tablet Take by mouth nightly. Refills: 0 NAC 600 mg Tablet Take 600 mg by mouth 2 times daily. Generic drug: acetylcysteine 600 mg Refills: [address] capsule Commonly known as: PriLOSEC Take 20 mg by mouth daily. 20 mg Refills: 0 ondansetron ODT 4 mg disintegrating tablet Commonly known as: Zofran-ODT Take 4 mg by mouth as needed. 4 mg Refills: 0 propranoloL 20 mg tablet Commonly known as: Inderal Take 20 mg by mouth 2 times daily. 20 mg Refills: 0 SERTRALINE ORAL Take 100 mg by mouth 2 times daily. 100 mg Refills: 0 traZODone 50 mg tablet Commonly known as: Desyrel Take 3 tablets by mouth nightly. 150 mg Quantity: 90 tablet Refills: 3 Physical Exam Constitutional: General: She is not in acute distress. Comments: Wt 82.9 kg (182 lb 12.8 oz) Comment: with shoes BMI 28.03 kg/m?? HENT: Head: Normocephalic. Eyes: General: No scleral icterus. Right eye: No discharge. Left eye: No discharge. Extraocular Movements: Extraocular movements intact. Conjunctiva/sclera: Conjunctivae normal. Pulmonary: Effort: Pulmonary effort is normal. No respiratory distress. Breath sounds: No stridor. Comments: S/p R mastectomy. No visible/palpable ca on R chest wall. Chest: Breasts: Left: No inverted nipple, mass, nipple discharge, skin change or tenderness. Abdominal: General: There is no distension. Palpations: Abdomen is soft. There is no mass. Tenderness: There is no abdominal tenderness. There is no guarding or rebound. Musculoskeletal: General: Swelling (Mild, nonpitting edema dorsal R hand; veins in area much less visible than on dorsal L hand) present. No tenderness. Normal range of motion. Cervical back: Normal range of motion and neck supple. No tenderness. Lymphadenopathy: Head: Right side of head: No submental, submandibular, preauricular, posterior auricular or occipital adenopathy. Left side of head: No submental, submandibular, preauricular, posterior auricular or occipital adenopathy. Cervical: No cervical adenopathy. Upper Body: Right upper body: No supraclavicular or axillary adenopathy. Left upper body: No supraclavicular or axillary adenopathy. Skin: General: Skin is warm and dry. Neurological: Mental Status: She is alert and oriented to person, place, and time. Coordination: Coordination normal. Gait: Gait normal. Psychiatric: Mood and Affect: Mood normal. Behavior: Behavior normal. Thought Content: Thought content normal. Judgment: Judgment normal. A: 1. ROSALEE. 2. Mild lymphedema dorsal R hand. P: Rtc 1 yr. I certify spending at least 15 mins in providing care to this patient today as reflected by the following activities: - review of patient's medical record in the chart, including interpretation of imaging, laboratory and pathologic studies referenced above - documenting the outcome of today's visit as above documented in this encounter Plan of Treatment Upcoming Encounters Date Type Department Care Team (Late st Contact Info) Description 02/13/2025 1:00 PM EDT Office Visit Radiation Oncology at [address] [phone] Eleonora Mensah MD [facility] [place] [address] documented as of this encounter Visit Diagnoses Diagnosis S/P radiotherapy Convalescence following radiotherapy documented in this encounter Care Teams Assistant Tennis Professional Relationship Specialty Start Date End Date Charleen Williamson APRN [address] [place] [address] PCP - General Family Medicine 06/29/20 documented as of this encounter
--- OUTSIDE RECORDS SUMMARY | 2024-05-09 13:54 | XMS_ITS | Encounter Summary ---
Author Organization [facility] Address [address] [place] [address] Care Team Providers Care Asset Protection Agent Name Role Phone Unavailable Primary Care Provider Unavailabl e Encounter Details Date Type Department Care Team (Late st Contact Info) Description 06/17/2022 Lab Requisition [facility] Pathology & Laboratory Medicine - [facility] [address] [place] [address] Outr Resulting Lab, Provider Social History Tobacco Use Types Packs/Day Years Used Date Smoking Tobacco: Never Assessed Comments Unknown Sex and Gender Information Value Date Recorded Sex Assigned at Not on file Legal Sex Female 11:09 EST Gender Identity Not on file Sexual Orientation Not on file documented as of this encounter Plan of Treatment Not on file documented as of this encounter Procedures Procedure Name Priority Date/Time Associated Diagnosis Comments HEPATITIS B SURFACE ANTIBODY Routine 06/17/2022 10:35 EST VARICELLA IGG ANTIBODY Routine 06/17/2022 10:35 EST documented in this encounter Results * HEPATITIS B SURFACE ANTIBODY (06/17/2022 10:35 EST) Hep B Surface Ab, Quantitative <3.1 See Note mIU/mL 06/18/2022 9:27 EST [facility] Comment: Reference Range for Hep B Surface Ab, Quant: Positive: >= 10.0 mIU/mL Negative: ??< 10.0 mIU/mL Patient is presumed to not be immune to infection with Hepatitis B Virus. Hep B Surface Ab, Qualitative Negative See Note 06/18/2022 9:27 EST [facility] Comment: Reference Range for Hep B Surface Ab, Qual: Unvaccinated: ??Negative Vaccinated: ??Positive Blood VENOUS BLOOD / Unknown 06/17/2022 10:35 EST 06/17/2022 17:14 EST us Provider Outr Resulting Lab CHEMISTRY & BLOOD GA S ORDERABLES Final Result Performing Organization Address [facility] Co de Phone Number [facility] [address] [place] [address] * VARICELLA IGG ANTIBODY (06/17/2022 10:35 EST) Varicella IgG Ab Positive See Note 06/19/2022 12:37 EST [facility] Comment:Presence of detectab le Varicella Zoster virus IgG antibodies. Blood VENOUS BLOOD / Unknown 06/17/2022 10:35 EST 06/17/2022 17:14 EST us Provider Outr Resulting Lab IMMUNOLOGY AND SEROL OGY ORDERABLES Final Result Performing Organization Address [facility] Co de Phone Number [facility] [address] [place] [address] documented in this encounter Visit Diagnoses Not on filedocumented in this encounter
--- OUTSIDE RECORDS SUMMARY | 2024-05-09 13:54 | XMS_ITS | Encounter Summary ---
Author Organization [facility] Address [address] [place] [address] Care Team Providers Care Sampler Ovens Name Role Phone Unavailable Primary Care Provider Unavailabl e Encounter Details Date Type Department Care Team (Late st Contact Info) Description 02/24/2024 Lab Requisition [facility] Pathology & Laboratory Medicine - [facility] [address] [place] [address] Outr Resulting Lab, Provider Social History Tobacco [...] Procedure Name Priority Date/Time Associated Diagnosis Comments HIV 1/2 ANTIGEN AND ANTIBODY, 4TH GENERATION Routine 02/24/2024 14:35 EDT documented in this encounter Results * HIV 1/2 ANTIGEN AND ANTIBODY, 4TH GENERATION (02/24/2024 14:35 EDT) HIV 1 and 2 Antibody/p24 Antigen, 4th Generation Negative Negative 02/25/2024 9:31 EDT [facility] Comment:If acute HIV-1 infec tion is suspected in a high risk patient, submit plasma specimen for HIV-1 RNA quantitation test. Blood VENOUS BLOOD / Unknown 02/24/2024 14:35 EDT 02/24/2024 21:51 EDT Narrative [facility] - 02/25/2024 9:31 EDT Fourth Generation assay performed on the [employer] XPT. us Provider Outr Resulting Lab IMMUNOLOGY AND SEROL OGY ORDERABLES Final Result [facility] [address] [place] [address] documented in this encounter Visit Diagnoses Not on filedocumented in this encounter
--- OUTSIDE RECORDS SUMMARY | 2024-05-09 13:54 | XMS_ITS | Encounter Summary ---
Author Organization [facility] Address [address] [place] [address] Care Team Providers Care Bench Repair Technician Name Role Phone Unavailable Primary Care Provider Unavailabl e Encounter Details Date Type Department Care Team (Late st Contact Info) Description 12/04/2022 Lab Requisition [facility] Pathology & Laboratory Medicine - [facility] [address] [place] [address] Outr Resulting Lab, Provider Social History Tobacco [...] Procedure Name Priority Date/Time Associated Diagnosis Comments VARICELLA IGG ANTIBODY Routine 12/04/2022 9:45 EDT documented in this encounter Results * VARICELLA IGG ANTIBODY (12/04/2022 9:45 EDT) Varicella IgG Ab Positive See Note 12/05/2022 11:19 EDT [facility] Comment:Presence of detectab le Varicella Zoster virus IgG antibodies. Blood VENOUS BLOOD / Unknown 12/04/2022 9:45 EDT 12/04/2022 21:26 EDT us Provider Outr Resulting Lab IMMUNOLOGY AND SEROL OGY ORDERABLES Final Result [facility] [address] [place] [address] documented in this encounter Visit Diagnoses Not on filedocumented in this encounter
--- OUTSIDE RECORDS SUMMARY | 2024-05-09 13:54 | XMS_ITS | Encounter Summary ---
Author Organization [facility] Address [address] [place] [address] Care Team Providers Care Line Patroller Name Role Phone Unavailable Primary Care Provider Unavailabl e Encounter Details Date Type Department Care Team (Late st Contact Info) Description 02/24/2024 Lab Requisition [facility] Pathology & Laboratory Medicine - [facility] [address] [place] [address] Outr Resulting Lab, Provider Social History Tobacco [...] Procedure Name Priority Date/Time Associated Diagnosis Comments THYROPEROXIDASE ANTIBODY Routine 02/24/2024 14:35 EDT SYPHILIS SEROLOGY Routine 02/24/2024 14: 35 EDT RUBELLA IGG ANTIBODY Routine 02/24/2024 14:35 EDT VARICELLA IGG ANTIBODY Routine 14:35 EDT documented in this encounter Results * THYROPEROXIDASE ANTIBODY (02/24/2024 14:35 EDT) Thyroperoxidase Ab <28 <=60 U/mL 2023 23:14 EDT [facility] Blood VENOUS BLOOD / Unknown 02/24/2024 14:35 EDT 02/24/2024 21:51 EDT us Provider Outr Resulting Lab CHEMISTRY & BLOOD GA S ORDERABLES Final Result Performing Organization Address [facility]/ZIP Co de Phone Number [facility] [address] [place] [address] * SYPHILIS SEROLOGY (02/24/2024 14:35 EDT) Syphilis Serology Negative Negative 02/25/2024 9:27 EDT [facility] Blood VENOUS BLOOD / Unknown 02/24/2024 14:35 EDT 02/24/2024 21:51 EDT us Provider Outr Resulting Lab IMMUNOLOGY AND SEROL OGY ORDERABLES Final Result Performing Organization Address [facility] Co de Phone Number [facility] [address] [place] [address] * VARICELLA IGG ANTIBODY (02/24/2024 14:35 EDT) Varicella IgG Ab Positive See Note 02/25/2024 9:32 EDT [facility] Comment:Presence of detectab le Varicella Zoster virus IgG antibodies. Blood VENOUS BLOOD / Unknown 02/24/2024 14:35 EDT 02/24/2024 21:51 EDT us Provider Outr Resulting Lab IMMUNOLOGY AND SEROL OGY ORDERABLES Final Result Performing Organization Address [facility] Co de Phone Number [facility] [address] [place] [id number] * RUBELLA IGG ANTIBODY (02/24/2024 14:35 EDT) Rubella IgG Ab Positive See Note 02/25/2024 9:31 EDT [facility] Comment:Positive for IgG ant ibodies to Rubella virus. Blood VENOUS BLOOD / Unknown 02/24/2024 14:35 EDT 02/24/2024 21:51 EDT us Provider Outr Resulting Lab CHEMISTRY & BLOOD GA S ORDERABLES Final Result Performing Organization Address [facility]/State/ZIP Co de Phone Number [facility] [address] [place] [address] documented in this encounter Visit Diagnoses Not on filedocumented in this encounter
--- OUTSIDE RECORDS SUMMARY | 2024-05-09 13:54 | XMS_ITS | Clinical Summary ---
Author Organization [facility] Address [address] [place] [address] Care Team Providers Care Life Insurance Sales Agent Name Role Phone Unavailable Primary Care Provider Unavailabl e Encounters Date Type Department Care Team Description 02/24/2024 Lab Requisition [facility] Pathology & Laboratory [address] [address] Outr Resulting Lab, Provider 02/24/2024 Lab Requisition [facility] Pathology & Laboratory [address] [address] Outr Resulting Lab, Provider 02/24/2024 Lab Requisition [facility] Pathology & Laboratory [address] [address] Outr Resulting Lab, Provider 02/24/2024 Lab Requisition [facility] Pathology & Laboratory [address] [address] Outr Resulting Lab, Provider from Last 3 Months Social History Tobacco Use Types Packs/Day Years Used Date Smoking Tobacco: Never Assessed Comments Unknown Sex and Gender Information Value Date Recorded Sex Assigned at Not on file Legal Sex Female 11:09 EST Gender Identity Not on file Sexual Orientation Not on file Plan of Treatment Health Maintenance Due Date Last Done Comments Hepatitis B Vaccine (1 of 3 - 19+ 3-dose series) 09/27 COVID-19 Vaccine ( season) 2023 Hepatitis C Screen Completed 02/24/2024 Procedures Procedure Name Priority Date/Time Associated Diagnosis Comments HOLD SST Today 02/24/2024 14:35 EDT HIV 1/2 ANTIGEN AND ANTIBODY, 4TH GENERATION Routine 02/24/2024 14:35 EDT HEPATITIS B CORE ANTIBODY (TOTAL) Today 02/24/2024 14:35 EDT HEPATITIS B SURFACE ANTIGEN Today 02/24/2024 14:35 EDT HEPATITIS C AB W REFLEX TO HCV RNA BY PCR Today 02/24/2024 14:35 EDT THYROPEROXIDASE ANTIBODY Routine 02/24/2024 14:35 EDT SYPHILIS SEROLOGY Routine 02/24/2024 14: 35 EDT VARICELLA IGG ANTIBODY Routine 14:35 EDT RUBELLA IGG ANTIBODY Routine 02/24/2024 14:35 EDT CHLAMYDIA/N. GONORRHOEAE AMPLIFIED NUCLEIC ACID Routine 02/24/2024 14:15 EDT from Last 3 Months Results * HOLD SST (02/24/2024 14:35 EDT) Hold Hold 02/24/2024 23:01 EDT [facility] Blood VENOUS BLOOD / Unknown 02/24/2024 14:35 EDT 02/24/2024 21:51 EDT us Provider Outr Resulting Lab LAB INFO SERVICE AND SUPPORT & PHONE RESULT Final Result [facility] [address] [place] [phone] * THYROPEROXIDASE ANTIBODY (02/24/2024 14:35 EDT) Thyroperoxidase Ab <28 <=60 U/mL 2023 23:14 EDT [facility] Blood VENOUS BLOOD / Unknown 02/24/2024 14:35 EDT 02/24/2024 21:51 EDT us Provider Outr Resulting Lab CHEMISTRY & BLOOD GA S ORDERABLES Final Result [facility] [address] [place] [address] * SYPHILIS SEROLOGY (02/24/2024 14:35 EDT) Syphilis Serology Negative Negative 02/25/2024 9:27 EDT [facility] Blood VENOUS BLOOD / Unknown 02/24/2024 14:35 EDT 02/24/2024 21:51 EDT us Provider Outr Resulting Lab IMMUNOLOGY AND SEROL OGY ORDERABLES Final Result Performing Organization Address [facility]/ZIP Co de Phone Number [facility] [address] [place] [address] * HEPATITIS C AB W REFLEX TO HCV RNA BY PCR (02/24/2024 14:35 EDT) Hep C Antibody Negative Negative 02/25/2024 15:36 EDT [facility] Blood VENOUS BLOOD / Unknown 02/24/2024 14:35 EDT 02/24/2024 21:51 EDT us Provider Outr Resulting Lab CHEMISTRY & BLOOD GA S ORDERABLES Final Result Performing Organization Address [facility]/ZIP Co de Phone Number [facility] [address] [place] [address] * HEPATITIS B CORE ANTIBODY (TOTAL) (02/24/2024 14:35 EDT) Hepatitis B Core Ab, Total Negative Negative 02/25/2024 15:06 EDT [facility] Blood VENOUS BLOOD / Unknown 02/24/2024 14:35 EDT 02/24/2024 21:51 EDT us Provider Outr Resulting Lab CHEMISTRY & BLOOD GA S ORDERABLES Final Result [facility] [address] [place], [place] [id number] * RUBELLA IGG ANTIBODY (02/24/2024 14:35 EDT) Rubella IgG Ab Positive See Note 02/25/2024 9:31 EDT [facility] Comment:Positive for IgG ant ibodies to Rubella virus. Blood VENOUS BLOOD / Unknown 02/24/2024 14:35 EDT 02/24/2024 21:51 EDT us Provider Outr Resulting Lab CHEMISTRY & BLOOD GA S ORDERABLES Final Result Performing Organization Address City/[facility]/ZIP Co de Phone Number [facility] [address] [place], [place] [phone] * HEPATITIS B SURFACE ANTIGEN (02/24/2024 14:35 EDT) Hep B Surface Ag Negative Negative 02/25/2024 14:41 EDT [facility] Blood VENOUS BLOOD / Unknown 02/24/2024 14:35 EDT 02/24/2024 21:51 EDT us Provider Outr Resulting Lab CHEMISTRY & BLOOD GA S ORDERABLES Final Result Performing Organization Address [facility]/ZIP Co de Phone Number [facility] [address] [place], [place] [phone] * VARICELLA IGG ANTIBODY (02/24/2024 14:35 EDT) Varicella IgG Ab Positive See Note 02/25/2024 9:32 EDT [facility] Comment:Presence of detectab le Varicella Zoster virus IgG antibodies. Blood VENOUS BLOOD / Unknown 02/24/2024 14:35 EDT 02/24/2024 21:51 EDT us Provider Outr Resulting Lab IMMUNOLOGY AND SEROL OGY ORDERABLES Final Result [facility] [address] [place] [id number] * HIV 1/2 ANTIGEN AND ANTIBODY, 4TH GENERATION (02/24/2024 14:35 EDT) Pathologist [facility] HIV 1 and 2 Antibody/p24 Antigen, 4th Generation Negative Negative 02/25/2024 9:31 EDT [facility] Comment:If acute HIV-1 infec tion is suspected in a high risk patient, submit plasma specimen for HIV-1 RNA quantitation test. Blood VENOUS BLOOD / Unknown 02/24/2024 14:35 EDT 02/24/2024 21:[address] [facility] - 02/25/2024 9:31 EDT Fourth Generation assay performed on the Krowderaur XPT. us Provider Outr Resulting Lab IMMUNOLOGY AND SEROL OGY ORDERABLES Final Result Performing Organization Address [facility]/ZIP Co de Phone Number [facility] [address] [place] [phone] * CHLAMYDIA/N. GONORRHOEAE AMPLIFIED NUCLEIC ACID (02/24/2024 14:15 EDT) Pathologist [facility] Neisseria gonorrhoeae Result Negative Negative 02/25/2024 12:35 EDT [facility] Chlamydia trachomatis Result Negative Negative 02/25/2024 12:35 EDT [facility] Urine URINE / Unknown 02/24/2024 1 4:15 EDT 02/24/2024 21:[address] [facility] - 02/25/2024 12:35 EDT A first catch urine specimen is acceptable for detection of Gonorrhea and Chlamydia, but might detect up to 10% fewer infections when compared with vaginal swab samples. us Provider Outr Resulting Lab MICROBIOLOGY - GENER AL ORDERABLES Final Result Performing Organization Address City/[facility]/ZIP Co de Phone Number [facility] [address] [place] [phone] from Last 3 Months
--- OUTSIDE RECORDS SUMMARY | 2024-05-09 13:54 | XMS_ITS | Encounter Summary ---
Author Organization [facility] Address [facility] [place] [address] Care Team Providers Care Historical Interpreter Name Role Phone Charleen Williamson APRN Primary Care Provider [phone] Encounter Details Date Type Department Care Team (Latest Contact Info) Description 09/13/2023 Travel Social History Tobacco Use Types Packs/Day Years [...] place to sleep or slept in a half-way (including now)? No 04/23/2021 Sex and Gender Information Value Date Recorded Sex Assigned at Female 07/19/2020 8:39 AM EDT Gender Identity Female 08/04/2022 1:11 PM EDT Sexual Orientation Straight 08/04/2022 1: 11 PM EDT documented as of this encounter Plan of Treatment Upcoming Encounters Date Type Department Care Team (Late st Contact Info) Description 02/13/2025 1:00 PM EDT Office Visit Radiation Oncology at [address] [phone] Eleonora Mensah MD [facility] [place] [address] documented as of this encounter Visit Diagnoses Not on filedocumented in this encounter Care Teams Historical Interpreter Relationship Specialty Start Date End Date Charleen Williamson APRN [address] [place] [address] PCP - General Family Medicine 06/29/20 documented as of this encounter
--- OUTSIDE RECORDS SUMMARY | 2024-05-09 13:54 | XMS_ITS | Encounter Summary ---
Author Organization [facility] Address [address] [place] [address] Care Team Providers Care Seed Corn Manager Production Name Role Phone Unavailable Primary Care Provider Unavailabl e Encounter Details Date Type Department Care Team (Late st Contact Info) Description 02/24/2024 Lab Requisition [facility] Pathology & Laboratory Medicine - [facility] [address] [place] [address] Outr Resulting Lab, Provider Social History Tobacco [...] Procedure Name Priority Date/Time Associated Diagnosis Comments CHLAMYDIA/N. GONORRHOEAE AMPLIFIED NUCLEIC ACID Routine 02/24/2024 14:15 EDT documented in this encounter Results * CHLAMYDIA/N. GONORRHOEAE AMPLIFIED NUCLEIC ACID (02/24/2024 14:15 EDT) Neisseria gonorrhoeae Result Negative Negative 02/25/2024 12:35 EDT [facility] Chlamydia trachomatis Result Negative Negative 02/25/2024 12:35 EDT [facility] Urine URINE / Unknown 02/24/2024 1 4:15 EDT 02/24/2024 21:43 EDT Narrative [facility] - 02/25/2024 12:35 EDT A first catch urine specimen is acceptable for detection of Gonorrhea and Chlamydia, but might detect up to 10% fewer infections when compared with vaginal swab samples. us Provider Outr Resulting Lab MICROBIOLOGY - GENER AL ORDERABLES Final Result [facility] [address] [place] [address] documented in this encounter Visit Diagnoses Not on filedocumented in this encounter
--- OUTSIDE RECORDS SUMMARY | 2024-05-09 13:54 | XMS_ITS | Encounter Summary ---
Author Organization [facility] [place] [place] [address] Care Team Providers Care Stitching Machine Feeder Or Offbearer Name Role Phone Charleen Williamson APRN Primary Care Provider [phone] Reason for Referral * Diagnostic Test (Routine) - Closed Specialty Diagnoses / Procedures Referred By Contac t Referred To Contact Radiology Diagnoses Malignant neoplasm of right breast in female, estrogen receptor positive, unspecified site of breast Procedures MRI Breast wwo Contrast Eulalio Lujan MD [facility] [place] [address] [place] [address] Referral ID Status Reason Start Date Expiration Date V isits Requested Visits Authorized [id number] Closed Specialty Service Requested 09/16/2023 03/18/2025 1 1 Reason for Visit * Diagnostic Test (Routine) - Closed Specialty Diagnoses / Procedures Referred By Contac t Referred To Contact Radiology Diagnoses Malignant neoplasm of right breast in female, estrogen receptor positive, unspecified site of breast Procedures MRI Breast wwo Contrast Eulalio Lujan MD [facility] [place] [address] [place] [address] Referral ID Status Reason Start Date Expiration Date V isits Requested Visits Authorized [id number] Closed Specialty Service Requested 09/16/2023 03/18/2025 1 1 Encounter Details Date Type Department Care Team (Latest Contact Info) Description 11/11/2023 8:15 AM EDT - 11/11/2023 11:59 PM EDT Hospital Encounter MRI at [facility] [place] [phone] Eulalio Hunt MD [facility] [place] [address] Malignant neoplasm of right breast in female, estrogen receptor positive, unspecified site of breast Discharge Disposition: Home Social History Tobacco Use Types Packs/Day Years [...] place to sleep or slept in a mcfp (including now)? No 04/23/2021 Sex and Gender Information Value Date Recorded Sex Assigned at Female 07/19/2020 8:39 AM EDT Gender Identity Female 08/04/2022 1:11 PM EDT Sexual Orientation Straight 08/04/2022 1: 11 PM EDT documented as of this encounter Medications at Time of Discharge Medication Sig Dispensed Refills Start Date End Date traZODone (Desyrel) 50 mg tablet Take 3 tablets by mouth nightly. 90 tablet 3 01/14/2023 magnesium oxide (Mag-Ox) 400 mg (241.3 mg magnesium) Tablet Take by mouth 2 times daily. 05/27/2022 B Complex-Folic Acid 0.4 mg Tablet Take 1 tablet by mouth nightly. 05/27/2022 sertraline HCl (SERTRALINE ORAL) Take 100 mg by mouth 2 times daily. acetaminophen (Tylenol) 500 mg Tablet Take 2 tablets by mouth every 6 hours. 30 tablet 1 01/28/2021 acetylcysteine (NAC) 600 mg Tablet Take 600 mg by mouth 2 times daily. omeprazole (PriLOSEC) [address] capsule Take 20 mg by mouth daily. 10/30/2020 propranoloL (Inderal) 20 mg Tablet Take 20 mg by mouth 2 times daily. 09/19/2020 ondansetron ODT (Zofran-ODT) 4 mg Tablet, Rapid Dissolve Take 4 mg by mouth as needed. 08/15/2020 melatonin 5 mg Tablet Take by mouth nightly. hydrOXYzine (Atarax) 10 mg Tablet TAKE 1 TO 2 TABLETS BY MOUTH EVERY 8 HOURS NEEDED FOR ANXIETY 07/09/2020 tamoxifen (Nolvadex) 20 mg tabletIndications:Malig nant 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, estrogen receptor positive,Medication management,Lymphedema of arm Take 1 tablet by mouth daily. 90 tablet 1 05/28/2023 02/15/2024 meloxicam (Mobic) 7.5 mg tabletIndications:Aroma tase inhibitor-associated arthralgia TAKE 1 TABLET BY MOUTH DAILY. MAY INCREASE TO 2 TABLETS DAILY NEEDED 60 tablet 5 03/24/2023 02/15/2024 diclofenac (Voltaren) 1 % Gel Apply 2 g to each affected area up to 4 times daily; maximum dose per joint: 8 g/day; maximum total body dose (all combined joints): 32 g/day. 200 g 07/24/2021 02/15/2024 lactobacillus rhamnosus, GG, (CULTURELLE) 10 billion cell Capsule Take 1 capsule by mouth daily. 02/15/2024 documented as of this encounter Plan of Treatment Upcoming Encounters Date Type Department Care Team (Late st Contact Info) Description 02/13/2025 1:00 PM EDT Office Visit Radiation Oncology at [address] [phone] Eleonora Mensah MD [facility] [place] [address] documented as of this encounter Procedures Procedure Name Priority Date/Time Associated Diagnosis Comments MRI BREAST WWO CONTRAST BILAT Routine 11/11/2023 9:37 AM EDT Malignant neoplasm of right breast in female, estrogen receptor positive, unspecified site of breast documented in this encounter Results * MRI Breast wwo Contrast Bilat (11/11/2023 9:37 AM EDT) Protagen WORKSTATION ID [id number] 1 RAD Anatomical Region Laterality Modality Breast Bilateral Magnetic Resonan ce Impressions 11/11/2023 3:52 PM EDT No MRI evidence of malignancy. RECOMMENDATION: Annual surveillance. FINAL ASSESSMENT: LEFT BREAST: BI-RADS Category 2: Benign Thank you for letting us participate in the care of this patient. ??If you are a health care provider and have any questions regarding this report, please contact the number below. ??For patients who have questions please contact the health senior care manager that requested your imaging first. ? Narrative 11/11/2023 3:52 PM EDT EXAMINATION: MRI BREAST WWO CONTRAST BILAT CLINICAL INDICATION: s/p right mastectomy for cancer. High risk for cancer due to her hisytory and family history and her young age and she has extremely dense breasts on mammography. TECHNIQUE: Multiplanar sequences were obtained pre- and post- Dotarem enhancement, to include SPGR weighted dynamic run-off and subtraction sequences obtained after the intravenous administration of 16 ccs of Dotarem. Computer algorithm analysis for lesion detection and kinetic contrast enhancement curve analysis was performed, using [employer] software. COMPARISON STUDIES: Compared and/or correlated with prior studies including MRI dated 12/14/2020 and more recent mammograms from August 2023 and August 2022.. FINDINGS: Background Enhancement Pattern (first post Dotarem image): Moderate (50-75% breast) Amount of Fibroglandular Tissue: The breast tissue is extremely dense, which lowers the sensitivity of mammography. LEFT Breast: No specific suspicious enhancing mass or nonmass enhancement is seen on the background of moderate parenchymal enhancement. Postbiopsy clip is again noted in the central breast, mid to posterior depth from prior benign biopsy. RIGHT Breast: Status post mastectomy. Lymph Node Basins/Other: There is no evidence of internal mammary or axillary adenopathy. No significant abnormalities are seen in the chest wall or skin. Eulalio Hunt MD IMG MRI ORDERABLES documented in this encounter Visit Diagnoses Diagnosis Malignant neoplasm of right breast in female, estrogen receptor positive, unspecified site of breast documented in this encounter Administered Medications Inactive Administered Medications - up to 3 most recent administrations Medication Order MAR Action Action Date Dose Rate Site gadoterate meglumine (Dotarem) (0.5 mMol/mL) injection solution 0-100 mL 0-100 mL, Intravenous, ONCE PRN, 1 dose, Starting on Thu11/11/23 at 0919, Until Thu11/11/23 at 0919, Per Protocol, Radiology Contrast, Routine Given 11/11/2023 9:19 AM EDT 16 mLs documented in this encounter Care Teams Stitching Machine Feeder Or Offbearer Relationship Specialty Start Date End Date Charleen Williamson APRN [address] [place] [address] PCP - General Family Medicine 06/29/20 documented as of this encounter
--- OUTSIDE RECORDS SUMMARY | 2024-05-09 13:54 | XMS_ITS | Encounter Summary ---
Author Organization [facility] Address [address] [place] [address] Care Team Providers Care Customer Assistant Name Role Phone Unavailable Primary Care Provider Unavailabl e Encounter Details Date Type Department Care Team (Late st Contact Info) Description 03/23/2023 Lab Requisition [facility] Pathology & Laboratory Medicine - [facility] [address] [place] [address] Outr Resulting Lab, Provider Social History Tobacco [...] Diagnosis Comments HEPATITIS B SURFACE ANTIBODY Routine 03/23/2023 14:25 EST HEPATITIS B SURFACE ANTIGEN Routine 03/23/2023 14:25 EST documented in this encounter Results * HEPATITIS B SURFACE ANTIBODY (03/23/2023 14:25 EST) Hep B Surface Ab, Quantitative >1,000.0 See Note mIU/mL 03/25/2023 10:16 EST [facility] Comment: Reference Range for Hep B Surface Ab, Quant: Positive: >= 10.0 mIU/mL Negative: ??< 10.0 mIU/mL Patient is presumed to be immune to infection with Hepatitis B Virus. Hep B Surface Ab, Qualitative Positive See Note 03/25/2023 10:16 EST [facility] Comment: Reference Range for Hep B Surface Ab, Qual: Unvaccinated: ??Negative Vaccinated: ??Positive Blood VENOUS BLOOD / Unknown 03/23/2023 14:25 EST 03/23/2023 21:43 EST us Provider Outr Resulting Lab CHEMISTRY & BLOOD GA S ORDERABLES Final Result Performing Organization Address City/[facility]/ZIP Co de Phone Number [facility] [address] [place] [address] * HEPATITIS B SURFACE ANTIGEN (03/23/2023 14:25 EST) Hep B Surface Ag Negative Negative 03/24/2023 14:39 EST [facility] Blood VENOUS BLOOD / Unknown 03/23/2023 14:25 EST 03/23/2023 21:43 EST us Provider Outr Resulting Lab CHEMISTRY & BLOOD GA S ORDERABLES Final Result Performing Organization Address [facility] Co de Phone Number [facility] [address] [place] [address] documented in this encounter Visit Diagnoses Not on filedocumented in this encounter
--- OUTSIDE RECORDS SUMMARY | 2024-05-09 13:54 | XMS_ITS ---
Author Organization [facility] Address [facility] [place] [address] Care Team Providers Care Engineering Analyst Name Role Phone Charleen Williamson APRN Primary Care Provider [phone] Active Problems Problem Noted Date Diagnosed Date Medication management 05/28/2023 Ganglion cyst of flexor tendon sheath right long finger 02/20/2022 Subcutaneous mass of finger of right hand 2021 Lymphedema of arm 09/30/2021 Malignant neoplasm of right breast in female, estrogen receptor positive 07/04/2020 Overview (02/26/2021): 29 yo self-palpated a mass under the right nipple when she noticed it had inverted at the end of May 2020. 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 R ALN bx + metastatic carcinoma. CT and bone scan negative for distant metastases cT2N1 grade 2/3 Stage IB Echo 07/20 normal Port placed and genetic testing sent 07/23/20 Fertility preservation referral, with egg harvest tentatively planned for 08/12/20, last depo provera shot 06/17 Ovarian suppression to improve chance of ovarian recovery planned for 08/13/20 2nd covid vaccination planned 08/14 Cycle 1 TCH-P 08/17/20- completed cycle 6 11/29/20 Lumpectomy with residual disease and 04/27 SLN + with treatmnet effect Randomized on [id number] to axillary dissection S/p Ax dissection LN + Adjuvant RT and TDM-1 planned. Fhx: PGM with breast cancer in her 80's; paternal aunt with ovarian ca; 2 brothers without cancer; no cousins with breast or ovarian cancer. menses age 14 to present; no menses while on Depo provera. Current Oncology Plans No current plan information found. Past Plans ADULT TREATMENT Plan Name Start Date Discontinue Date Treatment Medications Discontinue Reason Plan Provider [facility] ONC BREAST CANCER - ADO-TRASTuzum ab EMTANSINE (KADCYLA) 2 07/11/2022 ado-TRASTuzumab emtansine (Kadcyla) in sodium chloride 0.9% 250 mL infusion Therapy Complete Tyra Cornejo MD 14 of 14 cycles started [facility] ONC BREAST CANCER - CARBOplatin / DOCEtaxel / TRASTuzumab / PERTuzumab 08/11/19 21 03/01/2021 CARBOplatin (Paraplatin) in 150 mL infusionDOCEtaxeL (Taxotere) in sodium chloride 0.9% 250 mL infusionPERTuzumab (Perjeta) in sodium chloride 0.9% 250 mL infusionTRASTuzumab- anns (Kanjinti) in sodium chloride 0.9% 250 mL infusion Therapy Complete Tyra Cornejo MD 6 of 6 cycles started Mediport Maintenance Plan Name Start Date Discontinue Date Treatment Medications Discontinue Reason Plan Provider MEDIPORT ADMINISTRATION 10/23/2020 11/18/2023 No medications scheduled. Therapy Complete Tyra Cornejo MD Therapy Plan 1 Plan Name Start Date Discontinue Date Treatment Medications Discontinue Reason Plan Provider [facility] GOSERELIN (ZOLADEX) 3.6 MG 08/14/2020 07/01/2021 No medications scheduled. Patient Preference Tyra Cornejo MD Radiation Treatments * No radiation treatments are documented for this patient in [facility]. Treatments may have been administered in another system.
--- OUTSIDE RECORDS SUMMARY | 2024-05-09 13:54 | XMS_ITS | Encounter Summary ---
Author Organization [facility] Address [facility] [place] [address] Care Team Providers Care Social And Human Services Assistant Name Role Phone Charleen Williamson APRN Primary Care Provider [phone] [phone] Encounter Details Date Type Department Care Team (Late st Contact Info) Description 09/14/2023 Telephone Obstetrics [place] [phone] Gena Newmna MD [facility] DR OBSTETRICS [place] [address] Social History Tobacco Use Types Packs/Day Years [...] place to sleep or slept in a longterm (including now)? No 04/23/2021 Sex and Gender Information Value Date Recorded Sex Assigned at Female 07/19/2020 8:39 AM EDT Gender Identity Female 08/04/2022 1:11 PM EDT Sexual Orientation Straight 08/04/2022 1: 11 PM EDT documented as of this encounter Plan of Treatment Upcoming Encounters Date Type Department Care Team (Late st Contact Info) Description 02/13/2025 1:00 PM EDT Office Visit Radiation Oncology at [address] [phone] Eleonora Mensah MD [facility] DR [place] [address] documented as of this encounter Visit Diagnoses Not on filedocumented in this encounter Care Teams Social And Human Services Assistant Relationship Specialty Start Date End Date Charleen Williamson APRN [address] [place] [address] PCP - General Family Medicine 06/29/20 documented as of this encounter
--- OUTSIDE RECORDS SUMMARY | 2024-05-09 13:54 | XMS_ITS | Encounter Summary ---
Author Organization [facility] Address [facility] [place] [address] Care Team Providers Care Outreach Specialist Name Role Phone Charleen Williamson APRN Primary Care Provider +1 [phone] Encounter Details Date Type Department Care Team (Latest Contact Info) Description 02/15/2024 Travel Social History Tobacco Use Types Packs/Day [...] PM EDT Office Visit Radiation Oncology at [address] [phone] Eleonora Mensah MD [facility] [address] [place] [address] documented as of this encounter Visit Diagnoses Not on filedocumented in this encounter Care Teams Outreach Specialist Relationship Specialty Start Date End Date Charleen Williamson APRN [address] [place] [address] PCP - General Family Medicine 06/29/20 documented as of this encounter
--- OUTSIDE RECORDS SUMMARY | 2024-05-09 13:54 | XMS_ITS | Referral Summary ---
Author Organization [facility] Address [address] [place] [address] Care Team Providers Care Real Estate Subagent Name Role Phone Unavailable Primary Care Provider Unavailabl e Encounters Date Type Department Care Team Description 02/24/2024 Lab Requisition [facility] Pathology & Laboratory [address] [address] Outr Resulting Lab, Provider 02/24/2024 Lab Requisition [facility] Pathology & Laboratory [address] [address] Outr Resulting Lab, Provider 02/24/2024 Lab Requisition [facility] Pathology & Laboratory [address] [address] Outr Resulting Lab, Provider 02/24/2024 Lab Requisition [facility] Pathology & Laboratory [address] [address] Outr Resulting Lab, Provider from Last 3 Months Social History Tobacco Use Types Packs/Day Years Used Date Smoking Tobacco: Never Assessed Comments Unknown Sex and Gender Information Value Date Recorded Sex Assigned at Not on file Legal Sex Female 11:09 EST Gender Identity Not on file Sexual Orientation Not on file Plan of Treatment Not on file Procedures Procedure Name Priority Date/Time Associated Diagnosis [...] 14:35 EDT) Hold Hold 02/24/2024 23:01 EDT [facility] Blood VENOUS BLOOD / Unknown 02/24/2024 14:35 EDT 02/24/2024 21:51 EDT us Provider Outr Resulting Lab LAB INFO SERVICE AND SUPPORT & PHONE RESULT Final Result Performing Organization Address [facility]/ZIP Co de Phone Number [facility] [address] [place] [address] * THYROPEROXIDASE ANTIBODY (02/24/2024 14:35 EDT) Thyroperoxidase Ab <28 <=60 U/mL 2023 23:14 EDT [facility] Blood VENOUS BLOOD / Unknown 02/24/2024 14:35 EDT 02/24/2024 21:51 EDT us Provider Outr Resulting Lab CHEMISTRY & BLOOD GA S ORDERABLES Final Result Performing Organization Address City/[facility]/ZIP Co de Phone Number [facility] [address] [place] [address] * SYPHILIS SEROLOGY (02/24/2024 14:35 EDT) Syphilis Serology Negative Negative 02/25/2024 9:27 EDT [facility] Blood VENOUS BLOOD / Unknown 02/24/2024 14:35 EDT 02/24/2024 21:51 EDT us Provider Outr Resulting Lab IMMUNOLOGY AND SEROL OGY ORDERABLES Final Result [facility] [address] [place] [address] * HEPATITIS C AB W REFLEX TO HCV RNA BY PCR (02/24/2024 14:35 EDT) Pathologist [facility] Hep C Antibody Negative Negative 02/25/2024 15:36 EDT [facility] Blood VENOUS BLOOD / Unknown 02/24/2024 14:35 EDT 02/24/2024 21:51 EDT us Provider Outr Resulting Lab CHEMISTRY & BLOOD GA S ORDERABLES Final Result Performing Organization Address City/[facility]/ZIP Co de Phone Number [facility] [address] [place] [address] * HEPATITIS B CORE ANTIBODY (TOTAL) (02/24/2024 14:35 EDT) Pathologist [facility] Hepatitis B Core Ab, Total Negative Negative 02/25/2024 15:06 EDT [facility] Blood VENOUS BLOOD / Unknown 02/24/2024 14:35 EDT 02/24/2024 21:51 EDT us Provider Outr Resulting Lab CHEMISTRY & BLOOD GA S ORDERABLES Final Result Performing Organization Address City/[facility]/ZIP Co de Phone Number [facility] [address] [place] [address] * RUBELLA IGG ANTIBODY (02/24/2024 14:35 EDT) Pathologist [facility] Rubella IgG Ab Positive See Note 02/25/2024 9:31 EDT [facility] Comment:Positive for IgG ant ibodies to Rubella virus. Blood VENOUS BLOOD / Unknown 02/24/2024 14:35 EDT 02/24/2024 21:51 EDT us Provider Outr Resulting Lab CHEMISTRY & BLOOD GA S ORDERABLES Final Result Performing Organization Address City/[facility]/ZIP Co de Phone Number [facility] [address] [place] [address] * HEPATITIS B SURFACE ANTIGEN (02/24/2024 14:35 EDT) Pathologist [facility] Hep B Surface Ag Negative Negative 02/25/2024 14:41 EDT [facility] Blood VENOUS BLOOD / Unknown 02/24/2024 14:35 EDT 02/24/2024 21:51 EDT us Provider Outr Resulting Lab CHEMISTRY & BLOOD GA S ORDERABLES Final Result Performing Organization Address [facility] Co de Phone Number [facility] [address] [place] [address] * VARICELLA IGG ANTIBODY (02/24/2024 14:35 EDT) Pathologist [facility] Varicella IgG Ab Positive See Note 02/25/2024 9:32 EDT [facility] Comment:Presence of detectab le Varicella Zoster virus IgG antibodies. Blood VENOUS BLOOD / Unknown 02/24/2024 14:35 EDT 02/24/2024 21:51 EDT us Provider Outr Resulting Lab IMMUNOLOGY AND SEROL OGY ORDERABLES Final Result Performing Organization Address [facility] Co de Phone Number [facility] [address] [place] [id number] * HIV 1/2 ANTIGEN AND ANTIBODY, 4TH GENERATION (02/24/2024 14:35 EDT) Pathologist [facility] HIV 1 and 2 Antibody/p24 Antigen, 4th Generation Negative Negative 02/25/2024 9:31 EDT [facility] Comment:If acute HIV-1 infec tion is suspected in a high risk patient, submit plasma specimen for HIV-1 RNA quantitation test. Blood VENOUS BLOOD / Unknown 02/24/2024 14:35 EDT 02/24/2024 21:51 EDT [facility] - 02/25/2024 9:31 EDT Fourth Generation assay performed on the Siemens Centaur XPT. us Provider Outr Resulting Lab IMMUNOLOGY AND SEROL OGY ORDERABLES Final Result Performing Organization Address [facility]/ZIP Co de Phone Number [facility] [address] [place] [address] * CHLAMYDIA/N. GONORRHOEAE AMPLIFIED NUCLEIC ACID (02/24/2024 14:15 EDT) Pathologist [facility] Neisseria gonorrhoeae Result Negative Negative 02/25/2024 12:35 EDT [facility] Chlamydia trachomatis Result Negative Negative 02/25/2024 12:35 EDT [facility] Urine URINE / Unknown 02/24/2024 1 4:15 EDT 02/24/2024 21:43 EDT [facility] - 02/25/2024 12:35 EDT A first catch urine specimen is acceptable for detection of Gonorrhea and Chlamydia, but might detect up to 10% fewer infections when compared with vaginal swab samples. us Provider Outr Resulting Lab MICROBIOLOGY - GENER AL ORDERABLES Final Result [facility] [address] [place] [address] from Last 3 Months
--- OUTSIDE RECORDS SUMMARY | 2024-05-09 13:54 | XMS_ITS | Encounter Summary ---
Author Organization [facility] Address [address] [place] [address] Care Team Providers Care Mail Manager Name Role Phone Unavailable Primary Care Provider Unavailabl e Encounter Details Date Type Department Care Team (Late st Contact Info) Description 02/24/2024 Lab Requisition [facility] Pathology & Laboratory Medicine - [facility] [address] [place] [address] Outr Resulting Lab, Provider Social History Tobacco [...] Comments HOLD SST Today 02/24/2024 14:35 EDT HEPATITIS C AB W REFLEX TO HCV RNA BY PCR Today 02/24/2024 14:35 EDT HEPATITIS B CORE ANTIBODY (TOTAL) Today 02/24/2024 14:35 EDT HEPATITIS B SURFACE ANTIGEN Today 02/24/2024 14:35 EDT documented in this encounter Results * HOLD SST (02/24/2024 14:35 EDT) Hold Hold 02/24/2024 23:01 EDT [facility] Blood VENOUS BLOOD / Unknown 02/24/2024 14:35 EDT 02/24/2024 21:51 EDT us Provider Outr Resulting Lab LAB INFO SERVICE AND SUPPORT & PHONE RESULT Final Result [facility] [address] [place] [address] * HEPATITIS B CORE ANTIBODY (TOTAL) (02/24/2024 14:35 EDT) Hepatitis B Core Ab, Total Negative Negative 02/25/2024 15:06 EDT [facility] Blood VENOUS BLOOD / Unknown 02/24/2024 14:35 EDT 02/24/2024 21:51 EDT us Provider Outr Resulting Lab CHEMISTRY & BLOOD GA S ORDERABLES Final Result Performing Organization Address City/[facility]/ZIP Co de Phone Number [facility] [address] [place] [address] * HEPATITIS B SURFACE ANTIGEN (02/24/2024 14:35 EDT) Hep B Surface Ag Negative Negative 02/25/2024 14:41 EDT [facility] Blood VENOUS BLOOD / Unknown 02/24/2024 14:35 EDT 02/24/2024 21:51 EDT us Provider Outr Resulting Lab CHEMISTRY & BLOOD GA S ORDERABLES Final Result [facility] [address] [place] [address] * HEPATITIS C AB W REFLEX TO HCV RNA BY PCR (02/24/2024 14:35 EDT) Hep C Antibody Negative Negative 02/25/2024 15:36 EDT [facility] Blood VENOUS BLOOD / Unknown 02/24/2024 14:35 EDT 02/24/2024 21:51 EDT us Provider Outr Resulting Lab CHEMISTRY & BLOOD GA S ORDERABLES Final Result [facility] [address] [place] [address] documented in this encounter Visit Diagnoses Not on filedocumented in this encounter
--- OUTSIDE RECORDS SUMMARY | 2024-05-09 13:54 | XMS_ITS | Encounter Summary ---
Author Organization [facility] Address [facility] [place] [address] Care Team Providers Care Certified Green Building Engineer Name Role Phone Charleen Williamson APRN Primary Care Provider +1 [phone] Encounter Details Date Type Department Care Team (Latest Contact Info) Description 11/10/2023 Travel Social History Tobacco Use Types Packs/Day [...] place to sleep or slept in a care home (including now)? No 04/23/2021 Sex and Gender Information Value Date Recorded Sex Assigned at Female 07/19/2020 8:39 AM EDT Gender Identity Female 08/04/2022 1:11 PM EDT Sexual Orientation Straight 08/04/2022 1: 11 PM EDT documented as of this encounter Plan of Treatment Upcoming Encounters Date Type Department Care Team (Late st Contact Info) Description 02/13/2025 1:00 PM EDT Office Visit Radiation Oncology at [address] [phone] Eleonora Mensah MD [facility] [place] [address] documented as of this encounter Visit Diagnoses Not on filedocumented in this encounter Care Teams Certified Green Building Engineer Relationship Specialty Start Date End Date Charleen Williamson APRN [address] [place] [address] PCP - General Family Medicine 06/29/20 documented as of this encounter
--- OUTSIDE RECORDS SUMMARY | 2024-05-09 13:54 | XMS_ITS | Encounter Summary ---
Author Organization [facility] Address [facility] [place] [address] Care Team Providers Care Crop Supervisor Name Role Phone Charleen Williamson APRN Primary Care Provider +1 -[phone] Encounter Details Date Type Department Care Team (Latest Contact Info) Description 09/16/2023 Travel Social History Tobacco Use Types Packs/Day [...] PM EDT Office Visit Radiation Oncology at [address] [phone] Eleonora Mensah MD [facility] [place] [address] documented as of this encounter Visit Diagnoses Not on filedocumented in this encounter Care Teams Crop Supervisor Relationship Specialty Start Date End Date Charleen Williamson APRN [address] [place] [address] PCP - General Family Medicine 06/29/20 documented as of this encounter
--- OUTSIDE RECORDS SUMMARY | 2024-05-09 13:54 | XMS_ITS | Encounter Summary ---
Author Organization [facility] [place] [address] Care Team Providers Care Backwinder Name Role Phone Charleen Williamson APRN Primary Care Provider [phone] Reason for Referral * Diagnostic Test (Routine) - Closed Specialty Diagnoses / Procedures Referred By Contac t Referred To Contact Radiology Diagnoses Malignant neoplasm of right breast in female, estrogen receptor positive, unspecified site of breast Procedures MRI Breast wwo Contrast BilEulalio Lu MD [facility] [place] [address] [place] [address] Referral ID Status Reason Start Date Expiration Date V isits Requested Visits Authorized [id number] Closed Specialty Service Requested 09/16/2023 03/18/2025 1 1 Reason for Visit * Reason Comments Follow-up Encounter Details Date Type Department Care Team (Late st Contact Info) Description 09/16/2023 8:30 AM EDT Office Visit Hematology [place] [address] Eulalio Hunt MD [facility] [place] [address] Malignant neoplasm of right breast in female, estrogen receptor positive, unspecified site of breast Social History Tobacco Use Types Packs/Day Years [...] place to sleep or slept in a correction (including now)? No 04/23/2021 Sex and Gender Information Value Date Recorded Sex Assigned at Female 07/19/2020 8:39 AM EDT Gender Identity Female 08/04/2022 1:11 PM EDT Sexual Orientation Straight 08/04/2022 1: 11 PM EDT documented as of this encounter Last Filed Vital Signs Vital Sign Reading Time Taken Comments Blood Pressure 116/67 09/16/2023 9:05 AM EDT Pulse 94 09/16/2023 9:05 AM EDT Temperature 36.8 ??C (98.2 ??F) 09/16/2023 9:05 AM ED T Respiratory Rate 18 09/16/2023 9:05 AM EDT Oxygen Saturation 97% 09/16/2023 9:05 AM EDT Inhaled Oxygen Concentration - - Weight - - Height - - Body Mass Index - - documented in this encounter Progress Notes * Eulalio Hunt MD - 09/16/2023 8:30 AM EDT Alis Silva is a 32-year-old woman who returns after neoadjuvant chemotherapy for a HER-2 positive right breast cancer and then right mastectomy and right axillary targeted node excision on January 03, 2021, and right ax dissection on 01/28/21. She presented in June 2020 with a 5 cm palpable mass underneath the areola of her right breast with an 8 x 5 cm area of erythema and edema of the skin over this area. Right axillary ultrasound showed one lymph node that was 8 mm in diameter with a thickened cortex and core biopsy was positive for cancer. Core biopsy of her breast mass showed invasive carcinoma, ER positive, NE positive and HER-2 positive. MRI showed a 6 x 4 cm mass that involved the nipple. She had a metastatic work- up CT and bone scan showed no distant metastases. 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 She has a family history of breast cancer in her paternal grandmother who developed breast cancer in her 80s. A paternal aunt had ovarian cancer. Alis is not of Ashkenazi Sabianism heritage. She was considered to not have inflammatory breast cancer because she did not meet the NCCN criteria of more than a third of her breast skin being erythematous and edematous. She received 6 cycles of TCHP with egg preservation. Follow-up MRI showed that the mass in her breast decreased from 6 x 4 x 2.7 cm to 3.7 x 2 x 2 cm. Asecond mass seen on prechemo MRI in the 10:00 radian was no longer seen on MRI. On my exam she had a 3 cm mass underneath her areola. She still had some erythema of her central right breast that was less robust than it was initially. I recommended a mastectomy and a targeted node excision and sentinel node excision. On 01/03/2021 I did a right mastectomy. A pre-op ultrasound of her right axilla showed one slightly enlarged node. That node was wire localized. The clip was close to that node but not in it. I injected blue dye and used technetium. There were no radioactive nodes seen nor any blue lymphatic channelsor nodes identified. I removed the node that was targeted with the wire that was visible on ultrasound prior to surgery. Our specimen mammogram clearly showed that node was removed along with the wire. The clip was not seen in that specimen. I sent some additional tissue from the resection specimen(I had removed the wire and node en bloc with the axillary tail of the breast) and did a mammogram on that and I did not see the clip either. I had clearly removed the only node that was seen on postchemo ultrasound and so I did not proceed with any further surgery at that time. Pathology showed that she had a 1 mm metastasis in 1 lymph node that was identified. No other nodeswere seen. In her breast she had a 13 cm tumor bed with isolated tumor cells and nests of tumor cells throughout that tumor bed. All the margins were widely negative, > 1 cm. There was some dermal lymphovascular invasion seen. She randomized on the alliance trial [id number] to the axillary dissection arm. Therefore on 01/28/2021I did a right axillary dissection. 0 of 13 nodes were positive. She was treated with adjuvant XRT in May 2021 was on TDM-1 because she did not achieve a CR with neoadjuvant chemo. She has been on POSADA, stopped a month ago and will be trying to get . Tyra Cornejo is her medical oncologist. 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 She now returns for a check. She has not felt any chest wall or breast masses. On physical exam there are no right chest wall masses. No right axillary adenopathy. ROM right arm:abducts to about 150 degrees. Moderate right arm and hand edema. No left breast masses, no left axillary adenopathy. Left mammo from 08/31/23 was benign. Impression: No evidence of local recurrence or left breast new primary cancer. Onset of right arm edema soon after XRT, which she is managing. We discussed screening MRI in addition to mammography and she is interested in that, so I will order it. Plan:I will see her back in 1 year with a left mammo (f/u required for [place] trial) documented in this encounter Plan of Treatment Upcoming Encounters Date Type Department Care Team (Late st Contact Info) Description 02/13/2025 1:00 PM EDT Office Visit Radiation Oncology at [address] [address] Eleonora Mensah MD [facility] DR RADIATION [place] [address] Scheduled Orders Name Type Priority Associated Diagnoses Orde r Schedule Mammo Screening Cad and [place] Left Imaging Routine Malignant neoplasm of right breast in female, estrogen receptor positive, unspecified site of breast Expected: 09/15/2024 (Approximate), Expires: 03/17/2025 documented as of this encounter Results * MRI Breast wwo Contrast Bilat (11/11/2023 9:37 AM EDT) WORKSTATION ID [id number] 1 RAD Anatomical Region [...] who have questions please contact the health in home caregiver that requested your imaging first. ? Narrative [...] contrast enhancement curve analysis was performed, using [employer] software. COMPARISON STUDIES: Compared and/or correlated with [...] estrogen receptor positive, unspecified site of breast Malignant neoplasm of right breast in female, estrogen receptor positive, unspecified site of breast documented in this encounter Care Teams Backwinder Relationship Specialty Start Date End Date Charleen Williamson APRN [address] [place] [address] PCP - General Family Medicine 06/29/20 documented as of this encounter
--- OUTSIDE RECORDS SUMMARY | 2024-05-09 13:54 | XMS_ITS | Encounter Summary ---
Author Organization [facility] Address [address] [place] [address] Care Team Providers Care Mannequin Molder Name Role Phone Unavailable Primary Care Provider Unavailabl e Encounter Details Date Type Department Care Team (Latest Contact Info) Description 07/29/2023 Lab Requisition [facility] Pathology & Laboratory Medicine - [facility] [address] [place] [address] Charleen Williamson, CONSULTANT EDUCATION [address] [facility] [address] [place] [address] Encounter for gynecological examination (general) (routine) without abnormal findings; Encounter for screening for malignant neoplasm of cervix; Encounter for general adult medical examination without abnormal findings Social History Tobacco Use Types Packs/Day Years [...] Procedure Name Priority Date/Time Associated Diagnosis Comments PAP TEST Today 07/28/2023 9:15 EDT Encounter for gynecological examination (general) (routine) without abnormal findings Encounter for screening for malignant neoplasm of cervix Encounter for general adult medical examination without abnormal findings HPV GENOTYPES 16 AND 18/45 Today 07/28/2023 9:15 EDT Encounter for gynecological examination (general) (routine) without abnormal findings Encounter for screening for malignant neoplasm of cervix Encounter for general adult medical examination without abnormal findings HPV DNA DETECTION WITH GENOTYPING, PCR Today 07/28/2023 9:15 EDT Encounter for gynecological examination (general) (routine) without abnormal findings Encounter for screening for malignant neoplasm of cervix Encounter for general adult medical examination without abnormal findings documented in this encounter Results * HPV GENOTYPES 16 AND 18/45 (07/28/2023 9:15 EDT) HPV High Risk type 16, PCR Negative Negative 08/05/2023 10:10 EDT [facility] HPV18/45 RNA (HPV18/45) Negative Negative 08/05/2023 10:10 EDT [facility] Pap Test CERVIX UTERI STRUCTURE / Unknown 07/28/2023 9:15 EDT 08/03/2023 6:09 EDT Charleen Williamson CONSULTANT EDUCATION MICROBIOLOGY - GENERAL OR DERABLES Final Result Performing Organization Address [facility] Co de Phone Number [facility] [address] [place] [phone] * (ABNORMAL) HUMAN PAPILLOMAVIRUS (HPV) DETECTION-HIGH RISK TYPES (07/28/2023 9:15 EDT) HPV other High Risk types, PCR Positive( A) Negative 08/05/2023 10:10 EDT [facility] Comment:E6 OR E7 mRNA from o ne or more types of HPV types 16,18,31,33,35,39,45,51,52,56,58,59,66, and 68 is detected by cilnical scientist mediated amplification. High and intermediate risk HPV types are associated with most squamous intraepithelial lesions and cervical cancers. Pap Test CERVIX UTERI STRUCTURE / Unknown 07/28/2023 9:15 EDT 08/03/2023 6:09 EDT us Charleen Williamson CONSULTANT EDUCATION MICROBIOLOGY - GENERAL OR DERABLES Final Result Performing Organization Address [facility]/ZIP Co de Phone Number [facility] [address] [place] [phone] * PAP TEST (07/28/2023 9:15 EDT) Specimens A. Cervix and/or Endocervix , ThinPrep Imaging System with Manual Evaluation 08/05/2023 10:10 EDT [facility] Specimen Adequacy Satisfactory for Evaluation - transformation zone component absent 08/05/2023 10:10 EDT [facility] General Categorization Negative for intraepithelial lesion or malignancy 08/05/2023 10:10 T [facility] Attestation . 08/05/2023 10:10 T [facility] at 1010 Clinical History See below 08/05/19 10:10 EDT [facility] HPV The result for the Human Papillomavirus (HPV) Detection-High Risk Types is Positive . E6 OR E7 mRNA from one or more types of HPV types 16,18,31,33,35,39 ,45,51,52,56,58,5 9,66, and 68 is detected by cilnical scientist mediated amplification. High and intermediate risk HPV types are associated with most squamous intraepithelial lesions and cervical cancers. Testing was performed on specimen [id number] and was resulted on 08/03/2023 1518 EDT by FAMILIA, LAB INSTRUMENT RESULTS IN 08/05/2023 10:10 EDT [facility] Genotyping 16 & 18/45 The results for the HPV Genotypes 16 and 18/45 are Negative for the HPV16 RNA and Negative for the HPV18/45 RNA (HPV18/45). Testing was performed on specimen [id number] and was resulted on 08/04/2023 1507 EDT by FAMILIA, LAB INSTRUMENT RESULTS IN 08/05/2023 10:10 EDT [facility] Performing Lab [facility] 08/05/2023 10:10 EDT [facility] Scanned Images 08/05/2023 10:10 EDT [facility] Pap Test CERVIX UTERI STRUCTURE / Unknown 07/28/2023 9:15 EDT 07/29/2023 10:57 EDT us Charleen Williamson CONSULTANT EDUCATION PATHOLOGY ORDERABLES Madhavi banks Result [facility] [address] [place] [address] documented in this encounter Visit Diagnoses Diagnosis Encounter for gynecological examination (general) (routine) without abnormal findings Encounter for screening for malignant neoplasm of cervix Screening for malignant neoplasm of the cervix Encounter for general adult medical examination without abnormal findings Unspecified general medical examination documented in this encounter
--- OUTSIDE RECORDS SUMMARY | 2024-05-09 13:54 | XMS_ITS | Encounter Summary ---
Author Organization [facility] Address [address] [place] [address] Care Team Providers Care Pack Worker Name Role Phone Unavailable Primary Care Provider Unavailabl e Encounter Details Date Type Department Care Team (Late st Contact Info) Description 06/18/[address] [facility] Pathology & Laboratory Medicine - [facility] [address] [place] [address] Outr Resulting Lab, Provider Social History Tobacco [...] Procedure Name Priority Date/Time Associated Diagnosis Comments QUANTIFERON MITOGEN (PERFORMABLE) Today 06/17/2022 10:35 EST QUANTIFERON TB2 (PERFORMABLE) Today 06/17/2022 10:35 EST QUANTIFERON TB1 (PERFORMABLE) Today 06/17/2022 10:35 EST QUANTIFERON NIL (PERFORMABLE) Today 06/17/2022 10:35 EST QUANTIFERON INTERPRETATION (PERFORMABLE) Today 06/17/2022 10:35 EST QUANTIFERON TB GOLD PLUS Routine 06/17/2022 10:35 EST documented in this encounter Results * QUANTIFERON INTERPRETATION (PERFORMABLE) (06/17/2022 10:35 EST) Quantiferon Interpretation Negative Negative 06/19/2022 17:21 EST [facility] Comment:No interferon-gamma response to M. tuberculosis antigens was detected. ??Infection with M. tuberculosis is unlikely. A single negative result does not exclude infection with M. tuberculosis. ??In patients at high risk for M. tuberculosis infection, a second test should be considered. TB1 Ag minus Nil 0.00 IU/ml 06/19/19 17:21 EST [facility] TB2 Ag minus Nil 0.00 IU/mL 06/19/19 17:21 EST [facility] Blood VENOUS BLOOD / Unknown 06/17/2022 10:35 EST 06/19/2022 15:56 EST Narrative [facility] - 06/19/2022 17:21 EST Results were obtained with the [employer] QuantiFERON-TB Gold Plus CLIA. New platform in use 01/02/2021 us Provider Outr Resulting Lab IMMUNOLOGY AND SEROL OGY ORDERABLES Final Result Performing Organization Address [facility] Co de Phone Number [facility] [address] [place] [address] * QUANTIFERON MITOGEN (PERFORMABLE) (06/17/2022 10:35 EST) Blood VENOUS BLOOD / Unknown 06/17/2022 10:35 EST 06/18/2022 17:05 EST us Provider Outr Resulting Lab IMMUNOLOGY AND SEROL OGY ORDERABLES Final Result Performing Organization Address [facility] Co de Phone Number [facility] [address] [place] [phone] * QUANTIFERON TB2 (PERFORMABLE) (06/17/2022 10:35 EST) Blood VENOUS BLOOD / Unknown 06/17/2022 10:35 EST 06/18/2022 17:05 EST us Provider Outr Resulting Lab IMMUNOLOGY AND SEROL OGY ORDERABLES Final Result Performing Organization Address [facility]/ZIP Co de Phone Number [facility] [address] [place] [address] * QUANTIFERON TB1 (PERFORMABLE) (06/17/2022 10:35 EST) Blood VENOUS BLOOD / Unknown 06/17/2022 10:35 EST 06/18/2022 17:05 EST us Provider Outr Resulting Lab IMMUNOLOGY AND SEROL OGY ORDERABLES Final Result Performing Organization Address [facility] Co de Phone Number [facility] [address] [place] [address] * QUANTIFERON NIL (PERFORMABLE) (06/17/2022 10:35 EST) Blood VENOUS BLOOD / Unknown 06/17/2022 10:35 EST 06/18/2022 17:05 EST us Provider Outr Resulting Lab IMMUNOLOGY AND SEROL OGY ORDERABLES Final Result Performing Organization Address [facility] Co de Phone Number [facility] [address] [place] [address] documented in this encounter Visit Diagnoses Not on filedocumented in this encounter
--- OUTSIDE RECORDS SUMMARY | 2024-05-09 13:54 | XMS_ITS | Clinical Summary ---
Author Organization [facility] Address [facility] [place] [address] Care Team Providers Care Oven Press Tender Name Role Phone Charleen Williamson APRN Primary Care Provider [phone] Allergies Active Allergy Reactions Criticality Noted Date Comments Transparent Dressings 08/17/2020 Use alcohol and betadine, no biopatch. USE DUODERM Medications Medication Sig Dispensed Refills Start Date End Date Status hydrOXYzine (Atarax) 10 mg Tablet TAKE 1 TO 2 TABLETS BY MOUTH EVERY 8 HOURS NEEDED FOR ANXIETY 07/09/2020 Active melatonin 5 mg Tablet Take by mouth nightly. Active ondansetron ODT (Zofran-ODT) 4 mg Tablet, Rapid Dissolve Take 4 mg by mouth as needed. 08/15/2020 Active propranoloL (Inderal) 20 mg Tablet Take 20 mg by mouth 2 times daily. 09/19/2020 Active omeprazole (PriLOSEC) [address] capsule Take 20 mg by mouth daily. 10/30/2020 Active acetylcysteine (NAC) 600 mg Tablet Take 600 mg by mouth 2 times daily. Active acetaminophen (Tylenol) 500 mg Tablet Take 2 tablets by mouth every 6 hours. 30 tablet 1 01/28/2021 Active sertraline HCl (SERTRALINE ORAL) Take 100 mg by mouth 2 times daily. Active magnesium oxide (Mag-Ox) 400 mg (241.3 mg magnesium) Tablet Take by mouth 2 times daily. 05/27/2022 Active B Complex-Folic Acid 0.4 mg Tablet Take 1 tablet by mouth nightly. 05/27/2022 Active traZODone (Desyrel) 50 mg tablet Take 3 tablets by mouth nightly. 90 tablet 3 01/14/2023 Active Active Problems Problem Noted Date Diagnosed Date [...] the end of May 2020. [place] [facility] [place]2 + right invasive carcinoma with [...] SLN + with treatmnet effect Randomized on [id number] to axillary dissection S/p Ax dissection LN + Adjuvant RT and TDM-1 planned. Fhx: PGM with breast cancer in her 80's; paternal aunt with ovarian ca; 2 brothers without cancer; no cousins with breast or ovarian cancer. menses age 14 to present; no menses while on Depo provera. Encounters Date Type Department Care Team Description 02/15/2024 1:00 PM EDT Office Visit Radiation Oncology at [address] [phone] Eleonora Mensah MD S/P radiotherapy 02/15/2024 Travel from Last 3 Months Immunizations Name Administration Dates Next Due Covid-19 Bivalent (Pfizer Co mirnaty) 12yrs+ (1396-9160) 01/27/2022 Covid-19 Monovalent (Moderna Spikevax) 12yrs+ () 09/06/2021,02/18/2021,08/14/2020, 021 Family History Medical History Relation Comments Hypertension Father Hypertension Paternal Aunt Ovarian Cancer Paternal Aunt 's (around 2010) Uterine Cancer Paternal Aunt Hypertension Paternal Grandfather Breast Cancer Paternal Grandmother 's Hypertension Paternal Grandmother Type 2 Diabetes Paternal Grandmother Relation Status Comments Father Paternal Aunt Alive Paternal Grandfather Paternal Grandmother Alive Social History Tobacco Use Types Packs/Day Years [...] place to sleep or slept in a penitentiary (including now)? No 04/23/2021 Sex and Gender Information Value Date Recorded Sex Assigned at Female 07/19/2020 8:39 AM EDT Gender Identity Female 08/04/2022 1:11 PM EDT Sexual Orientation Straight 08/04/2022 1: 11 PM EDT Last Filed Vital Signs Vital Sign Reading Time Taken Comments Blood Pressure 116/67 09/16/2023 9:05 AM EDT Pulse 94 09/16/2023 9:05 AM EDT Temperature 36.8 ??C (98.2 ??F) 09/16/2023 9 :05 AM EDT Respiratory Rate 18 09/16/2023 9:05 AM EDT Oxygen Saturation 97% 09/16/2023 9:0 5 AM EDT Inhaled Oxygen Concentration - - Weight 82.9 kg (182 lb 12.8 oz) 024 1:07 PM EDT with shoes Height 172 cm (5' 7.72) 08/13/2023 1:3 3 PM EDT Body Mass Index 28.03 08/13/2023 1:33 PM EDT Plan of Treatment Upcoming Encounters Date Type Department Care Team (Late st Contact Info) Description 02/13/2025 1:00 PM EDT Office Visit Radiation Oncology at [address] [phone] Eleonora Mensah MD [facility] DR [place] [address] Health Maintenance Due Date Last Done Comments HIV screen 2010 Hepatitis C Screening 2010 Hepatitis B vaccine (0-59 yr s) (1) 09/28/2011 Tetanus/Diphtheria/Pertussis Vaccines (1 - Tdap) 09/28/2011 HPV test 2022 PAP Smear 2022 Covid-19 Vaccine (6 - 2023-2 5 season) 2023 01/27/2022, 09/06/2021, 02/18/2021, Additional history exists Influenza (Flu) vaccine (1 o f 1 - Influenza standard series) 12/27/2023 Medical Devices Implanted Type Area Duck Bill Operator Device Identifier Shelf Expiration Date Model / Serial / Lot Breast Clip-06/29/2020 Implanted:Qty: 1 on 06/29/2020 by Danni Osuna MD Breast Clip Right: Breast [id number] / [id number] / Description:SENOMARKULTRACOR ENHANCED COIL Breast Clip-06/29/2020 Implanted:Qty: 1 on 06/29/2020 by Danni Osuna MD Breast Clip Right: Axilla [id number] / [id number] / Description:ULTRACOR TWIRL Breast Clip-07/18/2020 Implanted:06/26 (Quantity not on file) Breast Clip Left: Breast [id number] / [id number] / [id number] Explanted Type Area Duck Bill Operator Device Identifier Shelf Expiration Date Model / Serial / Lot Port Infusion 8fr Cath Power Lp Ct Plastic Dignity ([id number])-06/26 Implanted:Qty : 1 on 07/23/2020 by Ernesto Urbina MD Explanted:Qty : 1 on 02/13/2022 by Sena Green PA IMPLANTS Left: Chest Wall [employer] - MEDCOMP IN [id number] / / [id number] Description:8fr mini power p ort in LEFT IJ Advance Directives * Attempt Cardiopulmonary Resuscitation - Inpatient (Latest Code Status on File) Date Activated Date Inactivated Comments 02/13/2022 1:55 PM 02/14/2022 4:40 AM Question Answer Comments Code Status decision made by: Patient * Attempt Cardiopulmonary Resuscitation - Inpatient Date Activated Date Inactivated Comments 01/28/2021 7:24 AM 01/28/2021 1:35 PM Question Answer Comments Code Status decision made by: Patient * Attempt Cardiopulmonary Resuscitation - Inpatient Date Activated Date Inactivated Comments 01/03/2021 12:08 PM 01/03/2021 9:21 PM Question Answer Comments Code Status decision made by: Patient * Attempt Cardiopulmonary Resuscitation - Inpatient Date Activated Date Inactivated Comments 07/23/2020 8:19 AM 07/24/2020 4:42 AM Question Answer Comments Code Status decision made by: Patient Care Teams Oven Press Tender Relationship Specialty Start Date End Date Charleen Williamson APRN [address] [place] [phone] PCP - General Family Medicine 06/29/20
--- OUTSIDE RECORDS SUMMARY | 2024-05-09 13:55 | XMS_ITS | Encounter Summary ---
Author Organization [facility] Address [facility] [place] [address] Care Team Providers Care Assembler Bonding Name Role Phone Charleen Williamson APRN Primary Care Provider [phone] Reason for Visit * Reason Onset Date Comments Medication Refill 03/23/2023 Encounter Details Date Type Department Care Team (Late st Contact Info) Description 03/23/2023 Refill Hematology [place] [address] Tyra Cornejo MD [facility] [place] [address] Social History Tobacco Use Types Packs/Day Years [...] place to sleep or slept in a halfway (including now)? No 04/23/2021 Sex and Gender Information Value Date Recorded Sex Assigned at Female 07/19/2020 8:39 AM EDT Gender Identity Female 08/04/2022 1:11 PM EDT Sexual Orientation Straight 08/04/2022 1: 11 PM EDT documented as of this encounter Miscellaneous Notes * Telephone Encounter - Delma Briones RN - 03/24/2023 10:43 AM EST Left vm for Alis to call back re: meloxicam refill request to assess pain and indication for continued refill prior to sending to provider for review. Alis returned my call at 11:58am. Report she thinks she takes meloxicam for general aches and pains, current treatment with tamoxifen. Per review of medical record, refill appears to be appropriate. Script prepared and sent to provider for review, signature and escribe. documented in this encounter Plan of Treatment Upcoming Encounters Date Type Department Care Team (Late st Contact Info) Description 02/13/2025 1:00 PM EDT Office Visit Radiation Oncology at [address] [phone] Eleonora Mensah MD [facility] [place] [address] documented as of this encounter Visit Diagnoses Not on filedocumented in this encounter Care Teams Assembler Bonding Relationship Specialty Start Date End Date Charleen Williamson APRN [address] [place] [address] PCP - General Family Medicine 06/29/20 documented as of this encounter
--- OUTSIDE RECORDS SUMMARY | 2024-05-09 13:55 | XMS_ITS | Encounter Summary ---
Author Organization [facility] Address [facility] [place] [address] Care Team Providers Care Carton Stenciler Name Role Phone Charleen Williamson APRN Primary Care Provider [phone] Encounter Details Date Type Department Care Team (Latest Contact Info) Description 08/10/2023 Travel Social History Tobacco Use Types Packs/Day [...] place to sleep or slept in a intermediate (including now)? No 04/23/2021 Sex and Gender Information Value Date Recorded Sex Assigned at Female 07/19/2020 8:39 AM EDT Gender Identity Female 08/04/2022 1:11 PM EDT Sexual Orientation Straight 08/04/2022 1: 11 PM EDT documented as of this encounter Plan of Treatment Upcoming Encounters Date Type Department Care Team (Late st Contact Info) Description 02/13/2025 1:00 PM EDT Office Visit Radiation Oncology at [address] [phone] Eleonora Mensah MD [facility] [place] [address] documented as of this encounter Visit Diagnoses Not on filedocumented in this encounter Care Teams Carton Stenciler Relationship Specialty Start Date End Date Charleen Williamson APRN [address] [place] [address] PCP - General Family Medicine 06/29/20 documented as of this encounter
--- OUTSIDE RECORDS SUMMARY | 2024-05-09 13:55 | XMS_ITS | Encounter Summary ---
[place] [address] Care Team Providers Care Urology Teacher Name Role Phone Charleen Williamson APRN Primary Care Provider [phone] Reason for Visit * Reason Comments Follow-up Encounter Details Date Type Department Care Team (Late st Contact Info) Description 06/18/2022 2:00 PM EST Office Visit Hematology [place] [address] Bernadine Velazquez PA Malignant neoplasm of right breast in female, [...] Sign Reading Time Taken Comments Blood Pressure 129/77 06/18/2022 1:54 PM EST Pulse 88 06/18/2022 1:54 PM EST Temperature 36.4 ??C (97.6 ??F) 06/18/2022 1 :54 PM EST Respiratory Rate 19 06/18/2022 1:54 PM EST Oxygen Saturation 98% 06/18/2022 1:5 4 PM EST Inhaled Oxygen Concentration - - Weight 79.5 kg (175 lb 4.3 oz) 06/18/19 1:54 PM EST with chains Height 175 cm (5' 8.9) 06/18/2022 1:54 PM EST Body Mass Index 25.96 06/18/2022 1:54 PM EST documented in this encounter Progress Notes * Bernadine Velazquez PA - 06/18/2022 2:00 PM EST [facility] ?? Breast Oncology Clinic: Follow-up Visit ?? Identification:??31??y.o.??female with locally advanced right breast cancer; s/p neoadjuvant chemotherapy with TCHP, R mastectomy/ALND; currently on adjuvant T- DM1 for residual disease??until 01/29/22. ?? Interim History:??Alis??presents today for follow-up, accompanied by her . She reports doing well on tamoxifen. Lymphedema is stable. She has been working with Sonam Bc on anti-depressantregimen and recently stopped Effexor & was started back on Sertraline. Hot flashes tolerable, better than when she initially started tamoxifen. She is inquiring about POSITIIVE study trial data presented at [facility]. Had excision of flexor sheath ganglion right long finger on 04/29/22. ?? Review of Systems: General: Denies fevers,??chills,??appetite changes.??++fatigue, grade 2. able to do ADL's, startingto work a bit now.?? Skin: Denies rashes, new skin lesions. HEENT: Denies headaches, double vision, dental pain, mouth sores. Pulm: Denies cough??or SOB.?? CV: Denies chest pain, palpitations. Extremities: Denies peripheral edema, leg swelling/pain/redness. GI: Denies vomiting, heartburn, diarrhea, constipation, hematochezia, melena.?? : Denies dysuria, hematuria. Repro: Premenopausal. Copper IUD placed recently. Previously on Depot Provera q3 months, last dose early June 2020. Currently receiving goserelin, last dose??10/16. Interested in discussing fertility and process for seeking .?No vaginal bleeding. Denies vaginal dryness or irritation. Heme: Denies bleeding, easy bruising. MSK: Denies??other??new or worsening skeletal pain, joint pains, myalgias. Neuro: Denies dizziness, lightheadedness, weakness, balance problems. ?? Psych:??stable.? Breast Cancer History: Diagnosis: -??29 yo self-palpated a mass under the right nipple when she noticed it had inverted at the end 2020.?? 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 R ALN bx + metastatic carcinoma.?? -??cT2N1 grade 2/3 Stage IB - 07/04/20 negative bone scan - 07/11/[address] - 07/11/20 breast MRI - L breast 6 mm mass; R breast - large retroareolar mass, additional mass at the posterior R outer breast with NME bridging the 2 masses; bx-proven R axillary node is identified,no other morphologically abnormal LNs; focal carlton-areolar skin thickening of R breast , <30% breast. - 07/18/20 bx of left breast lesion c/w benign breast tissue with nodular adenosis - 07/23/20 genetic testing done (see results below under Family History) ?? Treatment: - 08/13/2020 oocyte harvesting and embryo cryopreservation - 08/14/2020 goserelin dose #1 at [place] - 08/17/2020 cycle 1 neoadjuvant TCHP - 09/06/2020 cycle 2 TCHP - 2020 cycle 3 TCHP - 10/18/2020 cycle 4 TCHP - 11/08/2020 cycle 5 TCHP - 11/29/2020 cycle 6 TCHP, dose-reduced carbo/taxol - mastectomy + SLNB: 13 cm tumor bed w/ scattered foci of invasive disease, +LVI, 1 node with microscopic disease - Consented to [place] trial evaluating axillary dissection vs RT and randomized to dissection: 0/13 nodes positive. - Not eligible for adjuvant tucatinib trial due to participation in the [place] axillary management trial. - TDM-1??q3 wks x 14 cycles completed 01/29/22 - RT completed 04/22/21??to 06/03/21: 50??Gy in 25??fxs to R supraclavicular fossa, R axilla & R chest wall??with 6 & 10 MV Xray external beam, followed by volume reduction & 10 Gy/5 fxs tomastectomy scar with 9 MeV electron beam, boosting mastectomy scar to 60 Gy/30 fxs.??3D xrt??used.?? -goserelin + tamoxifen 07/16?? -tamoxifen alone as of 01/29/22 ?? RFs: Menses started age 14. No menses while on Depo provera. Now has copper IUD. ?? PMH: ? Patient Active Problem List Diagnosis Code ??? Malignant neoplasm of right breast in female, estrogen receptor positive C50.911, Z17.0 Anxiety ?? FH/Genetics: family history includes Breast Cancer (age of onset: 83) in her paternal grandmother; Ovarian Cancer (age of onset: 50) in her paternal aunt; Uterine Cancer (age of onset: 50) in her paternal aunt. ?? 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 - VUS was detected in the following??genes: Gene?Variant RET?c.2982A>C (p.Uov825Fsr) SDHB ?c.482A>G (p.Vwl634Czm) ?? SH: No smoking No current EtOH to [employer] occ on [employer] / unemployed No children - desires biological children in the future ?? Vitals: Last value Range last 8 hrs Temperature Temp: -- Heart Rate Heart Rate: -- Blood Pressure BP: -- Respiratory Rate Resp: -- SpO2 SpO2: -- Physical Exam: Vitals reviewed. General: A&Ox3. Well-developed??and well-nourished.??No acute distress. Head:??Normocephalic, atraumatic. Eyes: EOMs intact. Conjunctiva pink. No scleral icterus. Pulmonary:??Breathing comfortably on room air. Breasts: Right: s/p mastectomy without reconstruction. No chest wall masses or tenderness. Left: no masses, tenderness, erythema or edema. Extremities:??No??LE??edema.??Right??lymphedema sleeve and glove in place. Musculoskeletal: no point tenderness over ribs. Neurological: Gait normal. No focal deficits noted. Skin: Warm??and dry.??No rashes??noted. Psychiatric: ??Affect is mood-congruent. Insight is good. Thought-content is normal, future-oriented. ? Assessment & Plan:??Alis??is a 31??y.o.??premenopausal??woman with a large, node+, [place]+ HER2+ breast cancer, partial pathologic response to neoadjuvant TCHP??[[id number]], s/p??mastectomy/ALND, RT, now on tamoxifen alone. ROSALEE. ?? #Breast cancer ??? completed adjuvant T-DM1, 01/29/22.? continue tamoxifen. ?? #Treatment monitoring for toxicity Check cholesterol panel on tamoxifen #Right UE lymphedema Continue??lymphedema sleeve ?#Future childbearing ??? contraindicated during T-DM1 and for 7 months after last dose. ??? Safety of interrupting endocrine therapy to allow for is not known -- primary resultsof the POSITIVE study show that, under close medical surveillance and during a determined period, interruption of endocrine therapy in young women with endocrine-responsive breast cancer planning does not increase the risk of short-term relapse. This was relayed to pt. ??? Alis and Elmer have their embryos banked. Could consider carrying her own vs surrogate vs adoption.??They will reach out for a f/u fertility appt.? #Vasomotor symptoms ??? Effexor discontinued, now on Sertraline per??Sonam Yancey ELECTRON BEAM WELDING MACHINE OPERATOR. RTC in 3 months. ?? Bernadine Velazquez PA-C Breast Medical Oncology [facility] [address] - [phone] ? documented in this encounter Plan of Treatment Upcoming Encounters Date Type Department Care Team (Late st Contact Info) Description 02/13/2025 1:00 PM EDT Office Visit Radiation Oncology at [address] [phone] Eleonora Mensah MD [facility] [place] [address] documented as of this encounter Visit Diagnoses Diagnosis Malignant neoplasm of right breast in female, estrogen receptor positive, unspecified site of breast documented in this encounter Care Teams Urology Teacher Relationship Specialty Start Date End Date Charleen Williamson APRN [address] [place] [address] PCP - General Family Medicine 06/29/20 documented as of this encounter
--- OUTSIDE RECORDS SUMMARY | 2024-05-09 13:55 | XMS_ITS | Encounter Summary ---
[place] [address] Care Team Providers Care Shake Backboard Notcher Name Role Phone Charleen Williamson APRN Primary Care Provider [phone] Encounter Details Date Type Department Care Team (Latest Contact Info) Description 06/18/2022 12:31 PM EST - 06/18/2022 11:59 PM EST Hospital Encounter Hematology [place] [address] Malignant 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, estrogen receptor positive; Medication management Discharge Disposition: Home Social History Tobacco Use [...] place to sleep or slept in a prison (including now)? No 04/23/2021 Sex and Gender Information Value Date Recorded Sex Assigned at Female 07/19/2020 8:39 AM EDT Gender Identity Female 08/04/2022 1:11 PM EDT Sexual Orientation Straight 08/04/2022 1: 11 PM EDT documented as of this encounter Medications at Time of Discharge Medication Sig Dispensed Refills Start Date End Date magnesium oxide (Mag-Ox) 400 mg (241.3 mg [...] EVERY 8 HOURS NEEDED FOR ANXIETY 07/09/2020 traZODone (Desyrel) 50 mg Tablet Take 3 tablets by mouth nightly. 90 tablet 3 06/18/2022 01/09/2023 tamoxifen (NOLVADEX) 20 mg Tablet TAKE ONE TABLET BY MOUTH EVERY DAY 90 tablet 3 05/29/2022 09/01/2022 meloxicam (MOBIC) 7.5 mg Tablet TAKE 1 TABLET BY MOUTH DAILY. MAY INCREASE TO 2 TABLETS DAILY NEEDED 60 tablet 5 04/23/2022 03/24/2023 lidocaine (Xylocaine) 2 % jelly Apply topically to anal fissure as needed for pain relief. Do not use more than 30 mL in a 24-hr period. 30 mL 2 09/04/2021 06/10/2023 diclofenac (Voltaren) 1 % Gel Apply 2 [...] EDT Office Visit Radiation Oncology at [address] [phone] Eleonora Mensah MD [facility] [place] [address] documented as of this encounter Procedures Procedure Name Priority Date/Time Associated Diagnosis Comments HC VITAMIN D TOTAL-25 HYDROXY Routine 06/18/2022 12:49 PM EST Malignant 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, estrogen receptor positive Medication management HC VENIPUNCTURE Routine 06/18/2022 12:49 PM EST Malignant 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, estrogen receptor positive Medication management documented in this encounter Results * Vitamin D, 25-Hydroxy (06/18/2022 12:49 PM EST) Vitamin D Total 25 OH 34 21 - 100 ng/mL [facility] Vit D Interp Sufficient [facility] Blood 06/18/2022 12:4 9 PM EST 06/18/2022 12:57 PM EST Narrative Resulting Agency Comment Spec In Lab Tyra Cornejo MD CHEMISTRY ORDERABLE S [facility] [place] [address] * Lipid Panel (Reflex Direct LDL) (06/18/2022 12:49 PM EST) Cholesterol, Total 158 mg/dL [facility] Comment: Lower Risk: <200 mg/dL Average Risk: 200-239 mg/dL Higher Risk: >iu=212 mg/dL Triglyceride 175 mg/dL [facility] Comment: Average Risk/Lower Risk: <150 mg/dL Borderline High Risk: 150-199 mg/dL High Risk: 200-499 mg/dL Very High Risk: >et=558 mg/dL HDL Cholesterol 45 mg/dL [facility] Comment: Males: ?? Higher Risk: <40 mg/dL Females: ?? Higher Risk: <50 mg/dL LDL Cholesterol 78 mg/dL [facility] Comment: Lowest Risk: <100 mg/dL Lower Risk: 100-129 mg/dL Borderline High Risk: 130-159 mg/dL High Risk: 160-189 mg/dL Very High Risk: >tb=954 mg/dL Cholesterol/HDL Ratio 3.5 ratio [facility] Lipid Interpretation See Note [facility] Comment: Lipid management should be guided by a patient? s ASCVD risk, goals and preferences. ACC/AHA Guidelines recommend high intensity statin if clinical ASCVD or LDL greater than or equal to 190 mg/dL. [email or web address]/CMZ-OZM-Avyfzivhk Adults aged 40-75 with LDL 70-189 mg/dL should have their 10 year ASCVD risk estimated with the ACC/AHA ASCVD risk anthropology lecturer http://tools.acc.org/CNPGP-Nipw-Gsdwofrvn/ Statin should be discussed if risk greater than or equal to 7.5% in non-diabetics. With diabetes, moderate intensity statin is recommended if risk less than 7.5%, high intensity if risk greater than or equal to 7.5%. Annual lipid monitoring on statins is not necessary. Evaluate secondary causes of Triglycerides greater than 500 mg/dL or LDL greater than 190 mg/dL: See table 6 of ACC/AHA Guideline. Lifestyle modification is a critical component of ASCVD risk reduction. Blood 06/18/2022 12:4 9 PM EST 06/18/2022 12:57 PM EST Narrative Resulting Agency Comment Spec In Lab Tyra Cornejo MD CHEMISTRY ORDERABLE S Performing Organization Address City/State/[facility] Co de Phone Number [facility] [place] [address] documented in this encounter Visit Diagnoses Diagnosis Malignant 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, estrogen receptor positive Medication management Encounter for long-term (current) use of other medications documented in this encounter Care Teams Shake Backboard Notcher Relationship Specialty Start Date End Date Charleen Williamson APRN [address] [place] [address] PCP - General Family Medicine 06/29/20 documented as of this encounter
--- OUTSIDE RECORDS SUMMARY | 2024-05-09 13:55 | XMS_ITS | Encounter Summary ---
Author Organization [facility] Address [facility] [place] [address] Care Team Providers Care Land Manager Name Role Phone Charleen Williamson APRN Primary Care Provider [phone] Reason for Visit * Reason Comments Establish Care * Consultation (Routine) - Closed Specialty Diagnoses / Procedures Referred By Contac t Referred To Contact Obstetrics and Gynecology Diagnoses 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, estrogen receptor positive Medication management Lymphedema of arm Eleonora Saez PA [facility] [place] [address] [facility] [employer] [address] [place] [address] Referral ID Status Reason Start Date Expiration Date V isits Requested Visits Authorized [id number] Closed Consult, Test & Treat 05/28/2023 05/27/2024 1 1 Encounter Details Date Type Department Care Team (Late st Contact Info) Description 06/10/2023 9:15 AM EST Office Visit Obstetrics [place] [address] Gali Sams MD [facility] OBSTETRICS [place] [address] Encounter for preconception consultation; History of breast cancer Social History Tobacco Use Types Packs/Day Years [...] place to sleep or slept in a skilled nursing (including now)? No 04/23/2021 Sex and Gender Information Value Date Recorded Sex Assigned at Female 07/19/2020 8:39 AM EDT Gender Identity Female 08/04/2022 1:11 PM EDT Sexual Orientation Straight 08/04/2022 1: 11 PM EDT documented as of this encounter Last Filed Vital Signs Vital Sign Reading Time Taken Comments Blood Pressure 110/66 06/10/2023 8:49 AM EST Pulse 76 06/10/2023 8:49 AM EST Temperature 36.3 ??C (97.3 ??F) 06/10/2023 8:49 AM ES T Respiratory Rate 17 06/10/2023 8:49 AM EST Oxygen Saturation 97% 06/10/2023 8:49 AM EST Inhaled Oxygen Concentration - - Weight 79.7 kg (175 lb 11.2 oz) 06/10/2023 8:49 AM EST Height 172.7 cm (5' 8) 06/10/2023 8:49 AM EST Body Mass Index 26.72 06/10/2023 8:49 AM EST documented in this encounter Progress Notes * Jojo De Santiago LNA - 06/10/2023 9:15 AM EST __x__ Patient not reached, will update meds, allergies, tobacco, pharmacy, pain/depression during visit. ____Patient reached and the following information was reviewed/obtained per protocol: ___Confirmed patient name and date of ___Confirmed upcoming appt ___Reviewed medications, allergies, tobacco, pharmacy, pain/depression Confirmed has completed any pre-visit questionnaires If has not received required previsit questionnaires, send via [address] Other information or concerns: [phone] * Gali Sams MD - 06/10/2023 9:15 AM EST Diagnosis/Maternal Medicine Consult Note Alis Silva is a 32 y.o. year old female who is at Unknown gestation. She is seen in consultation at the request of PAYTON Rios for evaluation of preconception history of breast cancer. She was seen today for maternal- medicine consultation. Review of Systems Constitutional:feels well Patient Active Problem List Diagnosis Date Noted Medication management 05/28/2023 Ganglion cyst of flexor tendon sheath right long finger 02/20/2022 Subcutaneous mass of finger of right hand 01/24/2022 Lymphedema of arm 09/30/2021 Malignant neoplasm of right breast in female, estrogen receptor positive 07/04/2020 Past Medical History: Diagnosis Date Anxiety Breast cancer Depression Hypertension Lymphedema-right arm/ahnd Past Surgical History: Procedure Laterality Date IR MEDIPORT PLACEMENT 07/23/2020 IR Mediport Placement [facility] [place] INTERVENTIONL RAD IR MEDIPORT REMOVAL 02/13/2022 IR Mediport Removal 02/13/2022 Sena Green PA [facility] [place] INTERVENTIONL RAD MAMMO US BIOPSY LYMPH NODE RIGHT Right 06/29/2020 Mammo US Biopsy Lymph Node Right 06/29/2020 Danni Osuna MD [facility] RAD MAMMOGRAPHY MAMMO US BIOPSY RIGHT Right 06/29/2020 Mammo Us Biopsy Right 06/29/2020 Danni Osuna MD [facility] RAD MAMMOGRAPHY MAMMO US NEEDLE LOCALIZATION RIGHT Right 01/03/2021 Mammo US Needle Localization Right 01/03/2021 Mili Burgos MD [facility] RAD MAMMOGRAPHY MRI GUIDED BIOPSY BREAST VACUUM ASSISTED LEFT Left 07/18/2020 MRI Guided Biopsy Breast Vacuum Assisted Left 07/18/2020 [facility] RAD MRI PRO BX/REMV, LYMPH NODE, DEEP AXILL Right 01/03/2021 BIOPSY OR EXCISION OF LYMPH NODE(S), OPEN, DEEP AXILLARY NODE(S) (WRVU 6.43) performed by Eulalio Hunt MD at [facility] MAIN OR PRO EXCISE BREAST LES W XRAY MARKER Right 01/03/2021 EXCISION LESION, BREAST W/ PREOP.MARKER (NEEDLE LOC.) (WRVU 6.69) performed by Eulalio Hunt MDat [facility] [place] MAIN OR PRO EXCISION LESION TENDON SHEATH OR JT CAPSULE, HAND OR FINGER Right 04/29/2022 EXCISION LESION TENDON SHEATH OR JOINT CAPSULE, HAND OR FINGER (WRVU 3.57) performed by Yoshi Abbasi MD at [facility] OSC PRO INTRAOP SENTINEL LYMPH ID W/DYE INJECTION Right 01/03/2021 INTRAOPERATIVE ID (MAPPING) SENTINEL LYMPH NODE,INCLUDES INJECTION (WRVU 2.5) performed by Eulalio Hunt MD at [facility] MAIN OR PRO MASTECTOMY, SIMPLE, COMPLETE Right 01/03/2021 MASTECTOMY, SIMPLE, COMPLETE (WRVU 15.85) performed by Eulalio Hunt MD at [facility] [place] MAIN OR PRO REMOVE ARMPITS LYMPH NODES COMPLT Right 01/28/2021 LYMPHADENECTOMY, AXILLARY, COMPLETE (WRVU 13.87) performed by Eulalio Hunt MD at [facility] OSC Family History Problem Relation Age of Onset Hypertension Father Type 2 Diabetes Paternal Grandmother Hypertension Paternal Grandmother Breast Cancer Paternal Grandmother 83 's Hypertension Paternal Grandfather Hypertension Paternal Aunt Ovarian Cancer Paternal Aunt 50 's (around 2010) Uterine Cancer Paternal Aunt 50 Social History Occupational History Not on file Tobacco Use Smoking status: Never Smokeless tobacco: Never Vaping Use Vaping Use: Never used Substance and Sexual Activity Alcohol use: Not Currently Drug use: Never Sexual activity: Not on file OB History 0 Para 0 Term 0 0 AB 0 Living 0 SAB 0 IAB 0 Ectopic 0 Multiple 0 Live Births 0 Current Outpatient Medications Medication Sig Dispense Refill tamoxifen (Nolvadex) 20 mg tablet Take 1 tablet by mouth daily. 90 tablet 1 meloxicam (Mobic) 7.5 mg tablet TAKE 1 TABLET BY MOUTH DAILY. MAY INCREASE TO 2 TABLETS DAILY NEEDED 60 tablet 5 traZODone (Desyrel) 50 mg tablet Take 3 tablets by mouth nightly. 90 tablet 3 magnesium oxide (Mag-Ox) 400 mg (241.3 mg magnesium) Tablet Take by mouth 2 times daily. B Complex-Folic Acid 0.4 mg Tablet Take 1 tablet by mouth nightly. sertraline HCl (SERTRALINE ORAL) Take 100 mg by mouth 2 times daily. acetaminophen (Tylenol) 500 mg Tablet Take 2 tablets by mouth every 6 hours. 30 tablet 1 acetylcysteine (NAC) 600 mg Tablet Take 600 mg by mouth 2 times daily. omeprazole (PriLOSEC) 40 mg Capsule, Delayed Release(E.C.) Take 40 mg by mouth daily. propranoloL (Inderal) 20 mg Tablet Take 20 mg by mouth 2 times daily. ondansetron ODT (Zofran-ODT) 4 mg Tablet, Rapid Dissolve Take 4 mg by mouth as needed. lactobacillus rhamnosus, GG, (CULTURELLE) 10 billion cell Capsule Take 1 capsule by mouth daily. melatonin 5 mg Tablet Take by mouth nightly. hydrOXYzine (Atarax) 10 mg Tablet TAKE 1 TO 2 TABLETS BY MOUTH EVERY 8 HOURS NEEDED FOR ANXIETY diclofenac (Voltaren) 1 % Gel Apply 2 g to each affected area up to 4 times daily; maximum dose perjoint: 8 g/day; maximum total body dose (all combined joints): 32 g/day. (Patient not taking: Reported on 09/24/2022) 200 g 0 No current facility-administered medications for this visit. Allergies Allergen Reactions Tegaderm [Transparent Dressings] Use alcohol and betadine, no biopatch. USE DUODERM Physical Exam BP 110/66 Pulse 76 Temp 36.3 ??C (97.3 ??F) Resp 17 Ht 172.7 cm (5' 8) Wt 79.7 kg (175 lb 11.2 oz) SpO2 97% BMI 26.72 kg/m?? General: alert, well appearing, in no apparent distress HEENT: normocephalic, atraumatic Neurologic:alert, oriented, normal speech, no focal findings or movement disorder noted Psychiatric: Affect is Appropriate. Assessment and Recommendations: 32 y.o. year old female not currently for preconception counseling for history of breast cancer. I spent 40 minutes in face to face time with the patient of which 80% was in direct counseling, and a total of 10 minutes in patient care reviewing records and discussing her with other consultants. We reviewed her history in detail. She has frozen embryos and is considering a . She had stage 3 ER/NM + HER2 + invasive breast carcinoma diagnosed 2020 s/p mastectomy ALND, s/p neoadjuvant therapy TCHP, and Tamoxifen x2 years. Now off Tamoxifen for 3 months. She completed Trastuzumab 01/2022. We reviewed the recommendation to avoid for 2 years after diagnosis to minimize the risk of recurrence in . I encouraged her to confer with her oncologist about the appropriatetiming of to optimize outcomes. The risk of disease recurrence is ~ 8-9% and interruptionof Tamoxifen for does not seem to increase the risk. She has hypertension but is on Inderal for anxiety and hypertension. We reviewed the increased riskassociated with hypertension in including growth issues, abruption, exacerbation ofhypertension, preeclampsia, and delivery. Inderal is not considered a first line antihypertensive agent for but it's dual effect as in managing anxiety may warrant its continuation in . The FOB has type 1 DM. We reviewed the increased risk for his children to develop future type 1 DM. I recommend starting folic acid supplementation prior to conception 400-1000mcg to reduce the risk for feta neural tube defects. I appreciate the opportunity to be involved in this patients care, and am available if further questions should arise. GALI SAMS MD 06/10/2023 Cc: Eleonora Saez PA [facility] [place] [address] , with copy of ultrasound report documented in this encounter Plan of Treatment Upcoming Encounters Date Type Department Care Team (Late Contact Info) Description 02/13/2025 1:00 PM EDT Office Visit Radiation Oncology at [address] [address] Eleonora Mensah MD [facility] [place] [address] Scheduled Referrals Name Type Priority Associated Diagnoses Orde r Schedule Referral to Maternal Medicine Outpatient Referral Routine 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, estrogen receptor positive Medication management Lymphedema of arm Ordered: 05/28/2023 documented as of this encounter Visit Diagnoses Diagnosis Encounter for preconception consultation History of breast cancer Personal history of malignant neoplasm of breast documented in this encounter Care Teams Land Manager Relationship Specialty Start Date End Date Charleen Williamson APRN [address] [place] [id number] PCP - General Family Medicine 06/29/20 documented as of this encounter
--- OUTSIDE RECORDS SUMMARY | 2024-05-09 13:55 | XMS_ITS | Encounter Summary ---
[place] [address] Care Team Providers Care Warehouse Delivery Driver Name Role Phone Charleen Williamson APRN Primary Care Provider [phone] Reason for Visit * Auth/Cert (Routine) Specialty Diagnoses / Procedures Referred By Contac t Referred To Contact Diagnoses mucous cyst Procedures PRO EXCISION LESION TENDON SHEATH OR JT CAPSULE, HAND OR FINGER EXCISION LESION TENDON SHEATH OR JOINT CAPSULE, HAND OR FINGER (WRVU 3.57) Silas Abbasi MD [facility] [place] [address] [facility] Referral ID Status Reason Start Date Expiration Date Visits Re quested Visits Authorized [id number] 1 1 Encounter Details Date Type Department Care Team (Late st Contact Info) Description 04/29/2022 10:55 AM EST - 04/29/2022 12:00 PM EST Surgery [place] [address] [facility] [place] [address] EXCISION LESION TENDON SHEATH OR JOINT CAPSULE, HAND OR FINGER (WRVU 3.57) Social History Tobacco Use Types Packs/Day Years Used Date Smoking Tobacco: Never Smokeless Tobacco: Never Alcohol Use Standard Drinks/Week Comments Not Currently 0 (1 standard drink = 0.6 oz pur e alcohol) Overall Financial Resource Strain (CARDIA) Diogo costa Date Recorded How hard is it for [...] Orientation Straight 08/04/2022 1: 11 PM EDT COVID-19 Exposure Response Date Recorded In the last 10 days, have yo u been in contact with someone who was confirmed or suspected to have Coronavirus/COVID-19? No / Unsure 02/17/2022 8:31 PM EDT documented as of this encounter Last Filed Vital Signs Vital Sign Reading Time Taken Comments Blood Pressure 102/60 04/29/2022 12:00 PM EST Pulse 56 04/29/2022 12:00 PM EST Temperature 36.3 ??C (97.3 ??F) 04/29/2022 11:[address] Respiratory Rate 16 04/29/2022 11:53 AM EST Oxygen Saturation 100% 04/29/2022 12:00 PM EST Inhaled Oxygen Concentration - - Weight 78 kg (172 lb) 04/29/2022 9:48 AM EST Height 175.3 cm (5' 9) 04/29/2022 9:48 AM EST Body Mass Index 25.4 04/29/2022 9:48 AM EST documented in this encounter Discharge Instructions * Discharge Instructions* Aleyda Lewis, RN - 04/29/2022 9:54 AM EST At 0945 am you received 1000 mg of acetaminophen- Your next dose should not be taken before 8 hourshave passed. Next dose not before- 5:45pm You should not take more than a total of 3000 mg of acetaminophen in a 24 hour period. General Anesthesia Discharge Instructions Go home and rest. You may be sleepy for several hours. Take it easy as sudden position changes may cause nausea and/or dizziness. Use caution on stairs. Do not smoke if you are alone. Follow a light to regular diet as tolerated today. If nausea occurs, start with clear liquids, and progress slowly to a regular diet. Do not drive, operate machinery, drink alcoholic beverages or make any legal decisions after havinggeneral anesthesia. The medications given change your reaction time and alter your judgement. IV site -- slight redness is normal, you can use warm compresses. If tenderness and redness increases or foul drainage occurs, please contact your M.D. Patients who have had endotracheal tubes/LMA (tubes used by the anesthesia staff to ensure a safe airway during your operation) may have a sore throat. This is normal and cold liquids or soothing lozenges will help ease this discomfort. Narcotic pain medications can cause constipation, please ask the surgeons office what they recommend for prevention of this. Some non-pharmaceutical means of constipation prevention include increasing intake of fluids, eating more fruits and vegetables as well as fruit juices. If you are uncomfortable and/or unable to urinate within 8 hours of discharge and it is before 5 pm, call your physician. If it is after 5pm go to the closest emergency room or call the hospital plodder operator at [phone] and ask for physician bonded structures repairer covering for your physician. Questions or problems after 5pm or on a weekend: Call the [facility] plodder operator at and ask for the physician bonded structures repairer covering for your doctor. SCOPOLAMINE PATCH DISCHARGE INSTRUCTIONS You are wearing a scopolamine patch.This is a medication patch used to prevent and treat nausea andvomiting after surgery. The patch is located behind your ear. Please follow these instructions while you are wearing the patch. Try not to touch the patch. If you do touch the patch, wash your hands right away. Make sure to remove all traces of medicationfrom your hands. If the medication gets on your hands and then you touch your eyes, your vision may become blurry oryour pupils may widen. These are both normal and temporary reactions; they will go away shortly. You may remove the patch as early as: tonight BUT must remove it no later than am/pm on There will still be some active ingredients on the patch, so fold it in half (with the sticky sidestogether) and throw it in the trash. This will help prevent others from coming into contact with it. After removing the patch, carefully wash your hands and behind your ear (or wherever the patch was placed) with soap and water. If you have not urinated in 6-8 hours after your surgery, remove the patch and call your surgeon. * Patient Instructions* Bhavik Ordaz MD - 04/29/2022 11:03 AM EST Orthopaedic Hand Surgery Same Day Discharge Instructions: General Activities Diet: Start light and progress as tolerated. No alcoholic beverages on the day of surgery or while taking narcotics. If taking narcotics, make sure you are getting plenty of fluids and fiber. In general, care should be taken the first several days following surgery to limit strenuous activity. You want to avoid any activities that you may lose your balance, slip, trip, fall or re-injure your surgery. You may shower tomorrow. Cover your dressing/cast with a plastic bag to keep it dry. No driving while taking narcotic medications or wearing a device (splint, cast, sling, brace) that limits joint mobility. When you feel you can safely control your vehicle and respond to unpredictable situations you may resume driving. Hand Use Decreased sensation for several hours following surgery is often from the local anesthesia used during the procedure. This will resolve on its own. If a regional anesthetic was used, wear your sling until you regain full function of your limb, andkeep a close eye on the positioning of your arm and hand. When you have regained function and sensation you may then remove the sling. Do not use your operative hand for any lifting, pushing or pulling. You may move your elbow and shoulder as tolerated. Gentle exercises with any exposed fingers are encouraged and gently opening and closing the digits will keep the joints flexible. Specific activities and exercises will be discussed at your first postoperative visit. Elevation Some swelling is expected after surgery. Keep your hand properly elevated above the level of the heart i.e., fingers above palm, palm above the wrist, wrist above the elbow. Use pillows to increase elevation. Do not rely on a sling as it does not sufficiently elevate your hand. For proper elevation while walking around place your surgical hand on your opposite shoulder. Dressing/ Wound: The post-op dressing, splint or cast is a very important part of your treatment. If you have any questions please call us for clarification. If your dressing becomes wet or damaged please call the office. No creams, lotions or ointments on your incision. Keep steri-strips in place. They will fall off ontheir own Keep your dressing clean and DRY until your follow-up appointment. Do not change your dressing. Pain Management Most patients only require narcotics for a short period of time. Ice and elevation is an effective and important modality to use in conjunction with your oral pain medication. In a day or two you maybe ready to start decreasing the amount of pain medication your taking. Pain medication is to be taken on an ???as needed?if needed?? basis. Remember to start with the least amount and evaluate its effectiveness. You should not drink alcoholic beverages while on pain medication. If tolerated, please take Tylenol three times a day in conjunction with the narcotic as they complement each other. Once pain is better controlled, you may simply take extra strength Tylenol, one to two tablets every six hours as needed. Do not exceed 3,000 mg in 24 hours. The most common side effects of narcotic pain medications are nausea and constipation. To decrease nausea always take pain medication with food. If you are experiencing vomiting, please call us rightaway. To minimize constipation, drink plenty of fluids, eat a high fiber diet with plenty of fruitsand vegetables, and take a stool softener or laxative as needed. You may take an anti-inflammatory medication such as Ibuprofen/Advil/Motrin or Naproxen/Aleve. Refer to the medication bottles for daily allowance and dosing. Discontinue if it causes stomach upset. Contact Information: During clinic hours M-F 8-4:30 please call [phone] If it is after 5:00PM on a weekday or a weekend and it is of an urgent nature please call [phone] and ask for the on-call orthopaedic resident. Call if: You have a fever greater than 101 F or experience chills Increased drainage from incision Redness or extreme swelling around incision Increased pain or change in pain that is not controlled with elevation, ice and your pain medication. Any questions concerns related to surgery Future Appointments Date Time Provider Department Center 05/06/2022 3:30 PM Jossy Yancey APRN [facility] HEM ONC [facility] 05/12/2022 10:00 AM Silas Abbasi MD [facility] ORTH 3A [facility] 06/18/2022 3:00 PM LABORATORY, TECH [facility] INF 3K [facility] 06/18/2022 4:00 PM Tyra Cornejo MD [facility] HEM ONC [facility] 02/09/2023 11:00 AM Dafne Dykes, PhD [facility] PSY 5D Behavioral H 02/16/2023 11:00 AM Dafne Dykes, PhD [facility] PSY 5D Behavioral H documented in this encounter Medications at Time of Discharge Medication Sig Dispensed Refills Start Date End Date sertraline HCl (SERTRALINE ORAL) Take 100 mg [...] EVERY 8 HOURS NEEDED FOR ANXIETY 07/09/2020 traMADoL (Ultram) 50 mg Tablet Take 1 tablet by mouth every 6 hours as needed for Pain. 12 tablet 04/29/2022 06/18/2022 meloxicam (MOBIC) 7.5 mg Tablet TAKE 1 TABLET BY MOUTH DAILY. MAY INCREASE TO 2 TABLETS DAILY NEEDED 60 tablet 5 04/23/2022 03/24/2023 lidocaine-prilocaine (EMLA) Cream APPLY A THINK LAYER OF CREAM TO DESIGNATED SITE OF INTACT SKIN 60 MINUTES PRIOR TO ACCESING PORT. COVER SITE WITH OCCLUSIVE DRESSING. 30 g 1 09/11/2021 06/18/2022 lidocaine (Xylocaine) 2 % jelly Apply topically [...] joints): 32 g/day. 200 g 07/24/2021 02/15/2024 tamoxifen (NOLVADEX) 20 mg Tablet Take 1 tablet by mouth daily. 90 tablet 3 06/12/2021 05/29/2022 traZODone (Desyrel) 50 mg Tablet Take 3 tablets by mouth nightly. 90 tablet 3 04/18/2021 06/18/2022 Miscellaneous Medical Supply Misc by [facility]Non-Drug; Combo Route) route. Remedy Phytoplex Moisturizer. Apply to area of radiation twice a day but no less than 2 hours before a treatment. 06/18/2022 lactobacillus rhamnosus, GG, (CULTURELLE) 10 billion cell Capsule Take 1 capsule by mouth daily. 02/15/2024 documented as of this encounter Progress Notes * Blanca Knapp RN - 04/29/2022 12:38 PM EST Discharge instructions and medications reviewed with patient and Elmer. All questions answered and written copy sent home with patient. Refreshments, snacks, and bathroom offered prior to discharge. Patient ambulated to car for discharge accompanied by [facility] staff member. documented in this encounter H&P Notes * Bhavik Ordaz MD - 04/29/2022 10:57 AM EST 24-HOUR UPDATE Alis Silva's history and physical exam have been reviewed and completed. There has been no interval change from that of the pre-operative history and physical exam done within the last 30 days. CV: RRR, no RMG Pulm: LCTAB 04/29/22 10:57 AM documented in this encounter Miscellaneous Notes * Brief Op Note - Silas Abbasi MD - 04/29/2022 12:12 PM EST Brief Operative Note Patient Name: Alis Silva : [id number] MR#: [id number] Case Date: 04/29/2022 Surgeon: Surgeon(s) and Role: * Silas Abbasi MD - Primary * Bhavik Ordaz MD - Resident Preoperative diagnosis: Flexor sheath ganglion right long finger Postoperative diagnosis: Flexor sheath ganglion right long finger Procedure(s) (LRB): EXCISION LESION TENDON SHEATH OR JOINT CAPSULE, HAND OR FINGER (WRVU 3.57) (Right) Anesthesia: General Complications: None Intake: 700 cc crystalloid Output: Estimated Blood Loss: 2 cc Urine Output:: (no urine output recorded) Other Output: (no other output recorded) Drains: None Specimens removed during surgery: Order Name Source Comment Collection Info Order Time SPECIMEN TO PATHOLOGY mucous cyst Flexor shealth ganglion, right long finger excision No 04/29/2022 11:41 AM Time specimen removed from patient: 11:41 AM Number of tissue samples (in container) 1 Disposition: awakened from anesthesia, extubated and taken to the recovery room in a stable condition, having suffered no apparent untoward event. Condition: doing well without problems Attestation: Case Date: 04/29/2022 I was present and I participated during the entire procedure (does not need to include opening and closing). * Op Note - Silas Abbasi MD - 04/29/2022 11:30 AM EST [facility] Operative Note Patient Name: Alis Silva : [id number] MR#: [id number] Case Date: 04/29/2022 Surgeon: Surgeon(s) and Role: * Silas Abbasi MD - Primary * Bhavik Ordaz MD - Resident Preoperative diagnosis: Flexor sheath ganglion right long finger Postoperative diagnosis: Flexor sheath ganglion right long finger Procedure: Excision of flexor sheath ganglion right long finger Anesthesia: General Operative indication: Alis Silva is a 31-year-old female who presents with an enlarging flexor sheath ganglion coming from between the A1 and A2 pulleys of her right long finger. She was brought to the operating room for excision of this flexor sheath ganglion. Summary of procedure: After general anesthesia was performed, and 2 g of intravenous cefazolin wereadministered, the patient's right upper extremity was prepped with a Hibiclens scrub and a ChloraPrep. Her right upper extremity was draped in the usual sterile fashion. A preoperative timeout was performed as per [facility] protocol. 5 cc of 2% lidocaine was then infiltrated subcutaneously over the ganglion which was palpable at the proximal digital flexion crease on the palmar surface of her right long finger. No tourniquet was used for this procedure. A Franklin incision was made centered over this flexor sheath mass. Subcutaneous spreading was performed and hemostasis was achieved with electrocautery. Great care was taken to avoid injury to the radial and ulnar digital neurovascular bundles. The flexor sheath ganglion was found to be coming in from within the interval of the A1 and A2 pulleys. The stalk entered into this interval. The stalk with the cyst were excised in its entirety with a small rim of distal A1 jennifer. No injury occurred to the flexor tendons. No residual stalk or cyst was left behind. The cyst was sent to pathology. The site was now copiously irrigated. The skin was closed with 4-0 nylon suture. A sterile soft dressing was applied. She was then extubated and transferred to recovery room in stable condition. Estimated blood loss was 2 cc. IV fluid replacement was 700 cc of crystalloid. She tolerated the procedure well without apparent complications. Attestation: Case Date: 04/29/2022 I was present and I participated during the entire procedure (does not need to include opening and closing). SILAS ABBASI MD 04/29/2022 documented in this encounter Plan of Treatment Upcoming Encounters Date Type Department Care Team (Late st Contact Info) Description 02/13/2025 1:00 PM EDT Office Visit Radiation Oncology at [address] [address] [facility] [place] [address] documented as of this encounter Procedures Procedure Name Priority Date/Time Associated Diagnosis Comments SURGICAL PATHOLOGY REPORT Routine 04/29/2022 11:41 AM EST SPECIMEN TO PATHOLOGY Routine 04/29/2022 11:41 AM EST Excision Lesion Tendon Sheath Or Jt Capsule, Hand Or Finger ([id number]) 04/29/2022 11:08 AM EST Subcutaneous mass of finger of right hand EXCISION LESION TENDON SHEATH OR JOINT CAPSULE, HAND OR FINGER Routine 04/29/2022 9:30 AM EST Subcutaneous mass of finger of right hand documented in this encounter Results * Surgical Pathology Report (04/29/2022 11:41 AM EST) Final Diagnosis [id number] ? Location: [facility] The signing pathologist has (i) examined the relevant preparation(s) for the specimen(s) and (ii) rendered or confirmed the diagnosis(es). . ?Surgical Pathology DIAGNOSIS A - Flexor ??sheath, right long finger, excision: - Ganglion cyst Electronically signed by: ?Tono CRAFT, PhD, Mervin Cespedes Verified: ??05/01/2022 9:21 ?? Dermatopathologist , Bone & Soft Tissue Pathologist Performed at: ??-[facility] Dept. of Pathology, [place] [address] Motor Vehicle Or Caravan Salesperson: Tray Rao MD, FCAP, ??CLIA Certificate: [id number] SPECIMEN(S) SUBMITTED A - Flexor ??sheath ganglion, right long finger, excision (1) CLINICAL INFORMATION Mucous cyst SPECIMEN PROCESSING A - Labeled/Fixative: Flexor sheath ganglion, right long finger, formalin. Quantity/Size: Single, 1.4 x 0.6 x 0.5 cm. Tissue Description: Dominguez-pink fibromembranous portion of soft tissue. Sections/Processin g: Bisected and entirely submitted in 1 cassette labeled A1. ??nrl 05/01/2022 9:21 AM EST [facility] GANGLION CYST / Unknown 04/29/2022 11:41 AM EST 04/29/2022 11:41 AM EST Silas Abbasi MD PATHOLOGY/CYTOLOGY [facility] Performing Organization Address City/[facility]/ZIP Co de Phone Number [facility] [address] [place] [address] * Specimen to Pathology (04/29/2022 11:41 AM EST) AP Specimen 04/29/2022 11:4 1 AM EST 04/29/2022 11:41 AM EST Narrative [facility] - 04/29/2022 11:41 AM EST Specimen requisition ordered. ??Separate Pathology report to follow Silas Abbasi MD PATHOLOGY/CYTOLOGY [facility] [address] documented in this encounter Visit Diagnoses Diagnosis Subcutaneous mass of finger of right hand Subcutaneous mass of finger of right hand documented in this encounter Administered Medications Inactive Administered Medications - up to 3 most recent administrations Medication Order MAR Action Action Date Dose Rate Site acetaminophen (Tylenol) tablet 1,000 mg 1,000 mg, Oral, ONCE, 1 dose, On Thu04/29/22 at 1000, Administer with SIP of H2O only. Maximum dose of acetaminophen is 4,000 mg from all sources in 24 hours., Day of Surgery (Day of Procedure), Routine Given 04/29/2022 9:40 AM EST 1,000 mg fentaNYL (pf) (50 mcg/mL) multi-dose injection 25 mcg 25 mcg, Intravenous, EVERY 5 MIN PRN, Starting on Thu04/29/22 at 1206, Until Thu04/29/22 at 1512, Pain, Mild to moderate pain (1-5 out of 10), Hold for respiratory rate less than 10 per minute. Maximum dose 200 mcg over one hour, including OR administration. If ordered with HYDROmorphone or morphine, give HYDROmorphone or morphine first and use fentaNYL for breakthrough pain., PACU Recovery, Routine fentaNYL (pf) (50 mcg/mL) multi-dose injection 50 mcg 50 mcg, Intravenous, EVERY 5 MIN PRN, Starting on Thu04/29/22 at 1206, Until Thu04/29/22 at 1512, Pain, Moderate to severe pain (6-10 out of 10), Hold for respiratory rate less than 10 per minute. Maximum dose 200 mcg over one hour, including OR administration. If ordered with HYDROmorphone or morphine, give HYDROmorphone or morphine first and use fentaNYL for breakthrough pain., PACU Recovery, Routine HYDROmorphone (Dilaudid) (0.2 mg/1 mL) injection syringe 0.4 mg 0.4 mg, Intravenous, EVERY 10 MIN PRN, Starting on Thu04/29/22 at 1206, Until Thu04/29/22 at 1512, Pain, For Mild to Moderate Pain (1-5 out of 10), Hold for respiratory rate less than 10 per minute. Maximum dose 4 mg over one hour including administrations in the OR. If multiple pain medications are ordered, start with HYDROmorphone or morphine and use fentaNYL for breakthrough pain, PACU Recovery, Routine HYDROmorphone (Dilaudid) (0.2 mg/1 mL) injection syringe 0.6 mg 0.6 mg, Intravenous, EVERY 10 MIN PRN, Starting on Thu04/29/22 at 1206, Until Thu04/29/22 at 1512, Pain, For Moderate to Severe Pain (6-10 out of 10), Hold for respiratory rate less than 10 per minute. Maximum dose 4 mg over one hour including administrations in the OR. If multiple pain medications are ordered, start with HYDROmorphone or morphine and use fentaNYL for breakthrough pain, PACU Recovery, Routine lactated ringers infusion 1,000 mL, at 100 mL/hr, Intravenous, CONTINUOUS, Starting on Thu04/29/22 at 1000, Until Thu04/29/22 at 1512, Day of Surgery (Day of Procedure) lidocaine (Xylocaine) 1% (10 mg/mL) injection 3 mg 3 mg (0.3 mL), Subcutaneous, ONCE PRN, 1 dose, Starting on Thu04/29/22 at 0931, Until Thu04/29/22 at 1512, for discomfort with PIV insertion, Day of Surgery (Day of Procedure), Routine lidocaine-EPINEPHrine (pf) (2% - 1:200,000) injection ONCE PRN, Starting on Thu04/29/22 at 1133, Until Thu04/29/22 at 1512, Intra-Operative (Intra-Procedure), Routine Given 04/29/2022 11:33 AM EST 9 mLs 19- Surgical Site naloxone (Narcan) (0.4 mg/mL) injection 0.04 mg 0.04 mg, Intravenous, EVERY 5 MIN PRN, 3 doses, Starting on Thu04/29/22 at 1206, Until Thu04/29/22 at 1512, Opioid Reversal, for respiratory rate less than 6 or unresponsive., May repeat every 5 minutes to increase respiratory rate. DO NOT exceed 0.12 mg total dose. Notify anesthesia immediately if administered., PACU Recovery, Routine prochlorperazine (Compazine) (5 mg/mL) injection 5 mg 5 mg, Intravenous, EVERY 30 MIN PRN, 2 doses, Starting on Thu04/29/22 at 1206, Until Thu04/29/22 at 1512, Nausea, Maximum total dose of 10 mg (including OR administration). If multiple antiemetics ordered, use ondansetron first and if ineffective use prochlorperazine second and if ineffective use promethazine, PACU Recovery, Routine scopolamine (Transderm Scop) 1 mg over 3 days patch 1 patch 1 patch, Transdermal, Administer over 24 Hours, ONCE, 1 dose, On Thu04/29/22 at 1015, Day of Surgery (Day of Procedure), Routine Patch Applied 04/29/2022 9:58 AM EST 1 patch 01- Ear Behind (Left) scopolamine (Transderm-Scop) 1 mg patch Patch Verification Transdermal, 2 TIMES DAILY, 2 doses, First dose on Thu04/29/22 at 2200, Last dose on Thu04/30/22 at 0900, Verify scopolamine 1 mg patch., Recovery (Recovery-Hospital Unit) sodium chloride 0.9 % (flush) (BD PosiFlush Normal Saline 0.9) flush 5-20 mL 5-20 mL, Intravenous, EVERY 1 MIN PRN, Starting on Thu04/29/22 at 0931, Until Thu04/29/22 at 1512, flush, Flush pertains to all indwelling lines. Flush per protocol found in the job aid using the link provided on this medication record., Day of Surgery (Day of Procedure), Routine documented in this encounter Active and Recently Administered Medications Times are shown in EST. Scheduled Medication Order 04/27/2022 04/28/2022 04/29/2022 acetaminophen (Tylenol) tablet 1,000 mg (COMPLETED) 1,000 mg, Oral, ONCE, 1 dose, On Thu04/29/22 at 1000, Administer with SIP of H2O only. Maximum dose of acetaminophen is 4,000 mg from all sources in 24 hours., Day of Surgery (Day of Procedure), Routine 0940 (Given - Provid er: Aleyda Lewis RN) scopolamine (Transderm Scop) 1 mg over 3 days patch 1 patch 1 patch, Transdermal, Administer over 24 Hours, ONCE, 1 dose, On Thu04/29/22 at 1015, Day of Surgery (Day of Procedure), Routine 0958 (Patch Applied - Provider: Aleyda Lewis RN)1310 (Due: Patch Removed - Provider: Automatic Discharge Provider - Comment: Time automatically adjusted from order being discontinued) scopolamine (Transderm-Scop) 1 mg patch Patch Verification Transdermal, 2 TIMES DAILY, 2 doses, First dose on Thu04/29/22 at 2200, Last dose on Thu04/30/22 at 0900, Verify scopolamine 1 mg patch., Recovery (Recovery-Hospital Unit) Continuous Medication Order 04/27/2022 04/28/2022 04/29/2022 lactated ringers infusion 1,000 mL, at 100 mL/hr, Intravenous, CONTINUOUS, Starting on Thu04/29/22 at 1000, Until Thu04/29/22 at 1512, Day of Surgery (Day of Procedure) 1000 (Due) PRN Medication Order 04/27/2022 04/28/2022 04/29/2022 fentaNYL (pf) (50 mcg/mL) multi-dose injection 25 mcg(Linked Group 1) 25 mcg, Intravenous, EVERY 5 MIN PRN, Starting on Thu04/29/22 at 1206, Until Thu04/29/22 at 1512, Pain, Mild to moderate pain (1-5 out of 10), Hold for respiratory rate less than 10 per minute. Maximum dose 200 mcg over one hour, including OR administration. If ordered with HYDROmorphone or morphine, give HYDROmorphone or morphine first and use fentaNYL for breakthrough pain., PACU Recovery, Routine fentaNYL (pf) (50 mcg/mL) multi-dose injection 50 mcg(Linked Group 1) 50 mcg, Intravenous, EVERY 5 MIN PRN, Starting on Thu04/29/22 at 1206, Until Thu04/29/22 at 1512, Pain, Moderate to severe pain (6-10 out of 10), Hold for respiratory rate less than 10 per minute. Maximum dose 200 mcg over one hour, including OR administration. If ordered with HYDROmorphone or morphine, give HYDROmorphone or morphine first and use fentaNYL for breakthrough pain., PACU Recovery, Routine HYDROmorphone (Dilaudid) (0.2 mg/1 mL) injection syringe 0.4 mg(Linked Group 2) 0.4 mg, Intravenous, EVERY 10 MIN PRN, Starting on Thu04/29/22 at 1206, Until Thu04/29/22 at 1512, Pain, For Mild to Moderate Pain (1-5 out of 10), Hold for respiratory rate less than 10 per minute. Maximum dose 4 mg over one hour including administrations in the OR. If multiple pain medications are ordered, start with HYDROmorphone or morphine and use fentaNYL for breakthrough pain, PACU Recovery, Routine HYDROmorphone (Dilaudid) (0.2 mg/1 mL) injection syringe 0.6 mg(Linked Group 2) 0.6 mg, Intravenous, EVERY 10 MIN PRN, Starting on Thu04/29/22 at 1206, Until Thu04/29/22 at 1512, Pain, For Moderate to Severe Pain (6-10 out of 10), Hold for respiratory rate less than 10 per minute. Maximum dose 4 mg over one hour including administrations in the OR. If multiple pain medications are ordered, start with HYDROmorphone or morphine and use fentaNYL for breakthrough pain, PACU Recovery, Routine lidocaine (Xylocaine) 1% (10 mg/mL) injection 3 mg 3 mg (0.3 mL), Subcutaneous, ONCE PRN, 1 dose, Starting on Thu04/29/22 at 0931, Until Thu04/29/22 at 1512, for discomfort with PIV insertion, Day of Surgery (Day of Procedure), Routine lidocaine-EPINEPHrine (pf) (2% - 1:200,000) injection (CANCELED) ONCE PRN, Starting on Thu04/29/22 at 1133, Until Thu04/29/22 at 1512, Intra-Operative (Intra-Procedure), Routine 1133 (Given - Provid er: Silas Abbasi MD) naloxone (Narcan) (0.4 mg/mL) injection 0.04 mg 0.04 mg, Intravenous, EVERY 5 MIN PRN, 3 doses, Starting on Thu04/29/22 at 1206, Until Thu04/29/22 at 1512, Opioid Reversal, for respiratory rate less than 6 or unresponsive., May repeat every 5 minutes to increase respiratory rate. DO NOT exceed 0.12 mg total dose. Notify anesthesia immediately if administered., PACU Recovery, Routine prochlorperazine (Compazine) (5 mg/mL) injection 5 mg 5 mg, Intravenous, EVERY 30 MIN PRN, 2 doses, Starting on Thu04/29/22 at 1206, Until Thu04/29/22 at 1512, Nausea, Maximum total dose of 10 mg (including OR administration). If multiple antiemetics ordered, use ondansetron first and if ineffective use prochlorperazine second and if ineffective use promethazine, PACU Recovery, Routine sodium chloride 0.9 % (flush) (BD PosiFlush Normal Saline 0.9) flush 5-20 mL 5-20 mL, Intravenous, EVERY 1 MIN PRN, Starting on Thu04/29/22 at 0931, Until Thu04/29/22 at 1512, flush, Flush pertains to all indwelling lines. Flush per protocol found in the job aid using the link provided on this medication record., Day of Surgery (Day of Procedure), Routine Linked Groups Order Group 1: fentaNYL (pf) (50 mcg/mL) multi-dose injection 25 mcgJump to med 25 mcg, Intravenous, EVERY 5 MIN PRN, Starting on Thu04/29/22 at 1206, Until Thu04/29/22 at 1512, Pain, Mild to moderate pain (1-5 out of 10), Hold for respiratory rate less than 10 per minute. Maximum dose 200 mcg over one hour, including OR administration. If ordered with HYDROmorphone or morphine, give HYDROmorphone or morphine first and use fentaNYL for breakthrough pain., PACU Recovery, Routine Or fentaNYL (pf) (50 mcg/mL) multi-dose injection 50 mcgJump to med 50 mcg, Intravenous, EVERY 5 MIN PRN, Starting on Thu04/29/22 at 1206, Until Thu04/29/22 at 1512, Pain, Moderate to severe pain (6-10 out of 10), Hold for respiratory rate less than 10 per minute. Maximum dose 200 mcg over one hour, including OR administration. If ordered with HYDROmorphone or morphine, give HYDROmorphone or morphine first and use fentaNYL for breakthrough pain., PACU Recovery, Routine Group 2: HYDROmorphone (Dilaudid) (0.2 mg/1 mL) injection syringe 0.4 mgJump to med 0.4 mg, Intravenous, EVERY 10 MIN PRN, Starting on Thu04/29/22 at 1206, Until Thu04/29/22 at 1512, Pain, For Mild to Moderate Pain (1-5 out of 10), Hold for respiratory rate less than 10 per minute. Maximum dose 4 mg over one hour including administrations in the OR. If multiple pain medications are ordered, start with HYDROmorphone or morphine and use fentaNYL for breakthrough pain, PACU Recovery, Routine Or HYDROmorphone (Dilaudid) (0.2 mg/1 mL) injection syringe 0.6 mgJump to med 0.6 mg, Intravenous, EVERY 10 MIN PRN, Starting on Thu04/29/22 at 1206, Until Thu04/29/22 at 1512, Pain, For Moderate to Severe Pain (6-10 out of 10), Hold for respiratory rate less than 10 per minute. Maximum dose 4 mg over one hour including administrations in the OR. If multiple pain medications are ordered, start with HYDROmorphone or morphine and use fentaNYL for breakthrough pain, PACU Recovery, Routine documented in this encounter Care Teams Warehouse Delivery Driver Relationship Specialty Start Date End Date Charleen Williamson APRN [address] [place] [address] PCP - General Family Medicine 06/29/20 documented as of this encounter
--- OUTSIDE RECORDS SUMMARY | 2024-05-09 13:55 | XMS_ITS | Encounter Summary ---
Author Organization [facility] [place] [address] Care Team Providers Care Clock And Watch Assembler Name Role Phone Charleen Williamson APRN Primary Care Provider [phone] Reason for Referral * Physical Therapy (Routine) - Authorized Specialty Diagnoses / Procedures Referred By Contac t Referred To Contact Physical Therapy Diagnoses 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, estrogen receptor positive Medication management Lymphedema of arm Eleonora Saez PA [facility] [place] [address] [facility] [place] [address] Referral ID Status Reason Start Date Expiration Date Visits Requested Visits Authorized [id number] Authorized Evaluate and Treat 05/28/2023 05/27/2024 35 35 * Consultation (Routine) - Closed Specialty Diagnoses / Procedures Referred By Fawn t Referred To Contact Obstetrics and Gynecology Diagnoses 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, estrogen receptor positive Medication management Lymphedema of arm Eleonora Saez PA [facility] [place] [address] [facility] [address] [place] [address] Referral ID Status Reason Start Date Expiration Date V isits Requested Visits Authorized [id number] Closed Consult, Test & Treat 05/28/2023 05/27/2024 1 1 Reason for Visit * Reason Comments Follow-up Encounter Details Date Type Department Care Team (Kirstin st Contact Info) Description 05/28/2023 2:00 PM EST Office Visit Hematology [place] [address] Cheryl Stephenson MD 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, estrogen receptor positive; Medication management; Lymphedema of arm Social History Tobacco Use Types Packs/Day Years [...] place to sleep or slept in a [place] care facility (including now)? No 04/23/2021 Sex and Gender Information Value Date Recorded Sex Assigned at Female 07/19/2020 8:39 AM EDT Gender Identity Female 08/04/2022 1:11 PM EDT Sexual Orientation Straight 08/04/2022 1: 11 PM EDT documented as of this encounter Last Filed Vital Signs Vital Sign Reading Time Taken Comments Blood Pressure 114/61 05/28/2023 1:54 PM EST Pulse 69 05/28/2023 1:54 PM EST Temperature 36.8 ??C (98.2 ??F) 05/28/2023 1 :54 PM EST Respiratory Rate 18 05/28/2023 1:54 PM EST Oxygen Saturation 100% 05/28/2023 1:5 4 PM EST Inhaled Oxygen Concentration - - Weight 71.8 kg (158 lb 4.6 oz) 05/28/19 1:54 PM EST with boots Height 177.6 cm (5' 9.92) 05/28/2023 1 :54 PM EST Body Mass Index 22.76 05/28/2023 1:54 PM EST documented in this encounter Patient Instructions * Patient Instructions* Eleonora Saez PA - 05/28/2023 2:00 PM EST - please RTC in 8 wks w/ appt for MD visit - scheduling, please assist pt in making appts for PT/OT lymphedema clinic and maternal referral - pt is aware documented in this encounter Progress Notes * Eleonora Saez PA - 05/28/2023 2:00 PM EST Images from the original note were not included. [facility] Breast Oncology Clinic: Follow-up Visit Identification: 32 y.o. female with Stage 3 right breast cancer; s/p neoadjuvant chemotherapy with TCHP, R mastectomy/ALND; s/p T-DM1 for residual disease completed 01/29/22. Interim History: Ms. Silva is here today for a f/u visit here today with her , she continues to take the tamoxifen and it will be paused 07/18, she does experience menses but they are irregular since she completed her chemo, otherwise, she denies abnormal vaginal bleeding or swelling in either calf, she does wish to become and will need a highway truck driver/GYN referral, she did freeze embryos She continues to have lymphedema concerns of her right arm, she originally did follow w/ PT/OT and wore a sleeve but with working multiple jobs, she does not like wearing it throughout the day and night due to it being uncomfortable and limited time, she finds the sleeve irritating at night due to it compressing her hand and fingers She has noticed some tingling in her tips of her fingers of her right arm for which she also has lymphedema on that side, some difficulty with .net architect strength due to the swelling At today's visit, she has no breast concerns and denies any new lumps or bumps in her breasts or axilla. She denies any new or worsening headaches, visual changes/diplopia, excessive fatigue and or weightloss, fevers, chest pain, dyspnea, abdominal complaints including melena or hematochezia, rash, N/V/C/D, or lower extremity swelling, vaginal dryness or bleeding, additional VMS S&S, new bony-tenderness that is unexplained. Review of Systems: General: Denies fevers, chills, appetite changes. ++fatigue, grade 2. able to do ADL's, starting towork a bit now. Skin: Denies rashes HEENT: Denies headaches, double vision Pulm: Denies SOB. CV: Denies chest pain Extremities: Denies peripheral edema, leg swelling/pain/redness. GI: Denies vomiting, diarrhea, constipation, hematochezia, melena. : Denies dysuria, hematuria. - deferred Repro: Premenopausal. Copper IUD placed. s/p goserelin, last dose 10/16. LMP end of 03/2023, Interested in discussing fertility and process for seeking . No vaginal bleeding. Denies vaginal dryness or irritation. Heme: Denies bleeding, easy bruising. - deferred MSK: Denies other new or worsening skeletal pain, joint pains, myalgias. Neuro: Denies dizziness, lightheadedness, weakness, balance problems. - deferred Psych: stable. Breast Cancer History: Diagnosis: - dx at age 29 :self-palpated a mass under the right nipple when she noticed it had inverted at theend of May 2020. 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 R ALN bx+ metastatic carcinoma. - cT2N1 grade 2/3 Stage IB - 07/04/20 negative [...] done (see results below under Family History) Treatment: - 08/13/2020 oocyte harvesting and embryo cryopreservation - 08/14/2020 goserelin dose #1 at [place] - 08/17/2020 cycle 1 neoadjuvant TCHP - 09/06/2020 cycle 2 TCHP - 2020 cycle 3 TCHP - 10/18/2020 cycle 4 TCHP - 11/08/2020 cycle 5 TCHP - 11/29/2020 cycle 6 TCHP, dose-reduced carbo/taxol - mastectomy + SLNB: 13 cm tumor bed w/ scattered foci of invasive disease, +LVI, 1 node with microscopic disease - Consented to Chaplin trial evaluating axillary dissection vs RT and randomized to dissection: 0/13 nodes positive. - Not eligible for adjuvant tucatinib trial due to participation in the Chaplin axillary management trial. - TDM-1 q3 wks x 14 cycles completed 01/29/22 - RT completed 04/22/21 to 06/03/21: 50 Gy in 25 fxs to R supraclavicular fossa, R axilla & R chest wall with 6 & 10 MV Xray external beam, followed by volume reduction & 10 Gy/5 fxs to mastectomy scar with 9 MeV electron beam, boosting mastectomy scar to 60 Gy/30 fxs. 3D xrt used. -goserelin + tamoxifen 07/16 -tamoxifen alone as of 01/29/22 RFs: Menses started age 14. No menses while on Depo provera. Now has copper IUD. PMH: Patient Active Problem List Diagnosis Code Malignant neoplasm of right breast in female, estrogen receptor positive C50.911, Z17.0 Anxiety FH/Genetics: family history includes Breast Cancer (age of onset: 83) in her paternal grandmother; Ovarian Cancer (age of onset: 50) in her paternal aunt; Uterine Cancer (age of onset: 50) in her paternal aunt. 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 - VUS was detected in the following genes: Gene Variant RET c.2982A>C (p.Vsf352Apd) SDHB c.482A>G (p.Qfu062Tth) SH: No smoking No current EtOH to Elmer [employer] occ on [employer] / unemployed No children - desires biological children in the future Vitals: Patient Vitals for the past 24 hrs: Temp Pulse Resp BP SpO2 05/28/23 1354 36.8 ??C (98.2 ??F) 69 18 114/61 100 % Physical Exam: Vitals reviewed. General: A&Ox3. Well-developed and well-nourished. No acute distress. Head: Normocephalic, atraumatic. Eyes: Conjunctiva pink. No scleral icterus. Pulmonary: Breathing comfortably on room air. Breasts: Right: s/p mastectomy without reconstruction. No chest wall masses or tenderness. Left: no masses, tenderness, erythema or edema. Extremities: No LE edema. Right arm with 1+ lymphedema, normal ROM. Musculoskeletal: no point tenderness over ribs, negative Phalen's sign, negative Dimple's sign Neurological: Gait normal. No focal deficits noted. Skin: Warm and dry. No rashes noted. Psychiatric: Affect is mood-congruent. Insight is good. Thought-content is normal, future-oriented. Assessment & Plan: Alis is a 32 y.o. premenopausal woman with a large, node+, ER/MT+ HER2+ breast cancer, partial pathologic response to neoadjuvant TCHP [[id number]], s/p mastectomy/ALND, RT, now on tamoxifen alone. ROSALEE, she is here today for a f/u visit. #Breast cancer completed adjuvant T-DM1, 01/29/22. continue tamoxifen until 07/18 - pending planning for upcoming pause for attempts after establishing care with shot hole shooter Reviewed POSITIVE trial results showing safety of interrupting tamoxifen to seek after 2 yrs, then resuming after child bearing. Alis endorsed understanding risks entailed. #Treatment monitoring for toxicity - tamoxifen refill provided - Please touch base w/ PCP to check cholesterol panel on tamoxifen, no labs today #Right UE lymphedema - her N/T appears to be related lymphedema related, no evidence for comorbid carpal tunnel and or tenosynovitis - emphasized importance of PT/OT lymphedema clinic to re-assess her S&S - updated PT/OT lymphedema clinic referral provided today - encouraged lymphedema exercises and provided exercise information - Continue lymphedema sleeve #Future childbearing Safety of interrupting endocrine therapy to allow for is supported by retrospective data showing no increased risk of recurrence from , and -- primary results of the POSITIVE studyshow that, under close medical surveillance and during a determined period, interruption of endocrine therapy in young women with endocrine-responsive breast cancer planning does not increase the risk of short-term relapse. This was relayed to pt. Alis and Elmer have their embryos banked. Could consider carrying her own vs surrogatevs adoption. Maternal medicine referral provided today #Mammograms - please continue to follow w/ breast surgery who will order your L-sided mammogram #Vasomotor symptoms Continue Sertraline per Sonam Yancey DIRECTOR FOOD SAFETY - not discussed today Case discussed with Dr. Degroot and Dr. Stephenson. - please RTC in 8 wks w/ appt for MD visit - scheduling, please assist pt in making appts for PT/OT lymphedema clinic and maternal referral - pt is aware Manage stress levels, for any psychological concerns please let us know and or for emergencies please go to your nearest ER or call [phone] All questions were answered to the patient's satisfaction and they state understanding and agreement with today's treatment plan. They are encouraged to follow up sooner if they develop any new or concerning symptoms. If symptoms worsen or fail to improve as expected, or if they develop other concerning symptoms. Total time spent on the date of the encounter: 45 minutes (Includes time spent reviewing prior notes and tests, obtaining a history, performing an exam, counseling and education, coordination of care, ordering medications/tests, placing referrals, interpreting results, and documenting in the chart). Eleonora Saez PA-C Physician Project Control Analyst Breast Oncology Instructor in Medicine, [employer] [employer] [facility] [employer], [facility] Attending attestation: I have seen, examined the patient at clinic, and discussed the management with hematology oncology fellow, Dr.Elaine Seema MD and PAYTON Arnett. I have reviewed all pertinent laboratory and radiographic findings. I have reviewed Eleonora Saez's note; I agree with assessment and plan Counseling: Total time spent: 30 minutes with > 50% spend in discussion of above, [id number] time and coordination of care with the patient today Records were reviewed which included imaging ( mammogram, US, MRI, PET/CT, Ultrasounds that were non breast, CTs, ), surgical reports, pathology reports and physician notes. The patient was counseled extensively. We discussed the results of all recent diagnostic tests and what these results mean. We discussed the prognosis of the disease. We discussed the risks and benefits of the treatment plan at length. The patient was given instruction for treatment and the follow up appointments were reviewed. We reviewed all the medications and educated the patient about their appropriate uses. The importance of compliance with all medications and instruction was emphasized. All aspects of the plan were discussed with the patient. The patient was given opportunities to askquestions, which we answered. Mrs. Alis Silva has endorsed agreement and understanding of the treatment plan. * Karlie Degroot MD - 05/28/2023 2:00 PM EST Attending attestation: I have seen, examined the patient at clinic, and discussed the management with hematology oncology fellow, Dr.Elaine Seema MD and PAYTON Arnett. I have reviewed all pertinent laboratory and radiographic findings. I have reviewed Eleonora Saez's note; I agree with assessment and plan Counseling: Total time spent: 30 minutes with > 50% spend in discussion of above, [id number] time and coordination of care with the patient today Records were reviewed which included imaging ( mammogram, US, MRI, PET/CT, Ultrasounds that were non breast, CTs, ), surgical reports, pathology reports and physician notes. The patient was counseled extensively. We discussed the results of all recent diagnostic tests and what these results mean. We discussed the prognosis of the disease. We discussed the risks and benefits of the treatment plan at length. The patient was given instruction for treatment and the follow up appointments were reviewed. We reviewed all the medications and educated the patient about their appropriate uses. The importance of compliance with all medications and instruction was emphasized. All aspects of the plan were discussed with the patient. The patient was given opportunities to askquestions, which we answered. Mrs. Alis Silva has endorsed agreement and understanding of the treatment plan. documented in this encounter Miscellaneous Notes * Addendum Note - Karlie Degroot MD - 05/28/2023 2:00 PM ESTAddended by: KARLIE DEGROOT on: 06/05/2023 02:35 PM Modules accepted: Level of Service * Addendum Note - Karlie Degroot MD - 05/28/2023 2:00 PM ESTAddended by: KARLIE DEGROOT on: 06/05/2023 02:38 PM Modules accepted: Level of Service * Addendum Note - Karlie Degroot MD - 05/28/2023 2:00 PM ESTAddended by: KARLIE DEGROOT on: 07/01/2023 09:37 PM Modules accepted: Level of Service documented in this encounter Plan of Treatment Upcoming Encounters Date Type Department Care Team (Late st Contact Info) Description 02/13/2025 1:00 PM EDT Office Visit Radiation Oncology at [address] [phone] Eleonora Mensah MD [facility] [place] [address] Scheduled Referrals Name Type Priority Associated Diagnoses Orde r Schedule Referral to Maternal Medicine Outpatient Referral Routine 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, estrogen receptor positive Medication management Lymphedema of arm Ordered: 05/28/2023 Referral to PT/OT for Lymphedema Outpatient Referral Routine 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, estrogen receptor positive Medication management Lymphedema of arm Ordered: 05/28/2023 documented as of this encounter Visit Diagnoses Diagnosis 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, estrogen receptor positive Medication management Encounter for long-term (current) use of other medications Lymphedema of arm Other lymphedema documented in this encounter Care Teams Clock And Watch Assembler Relationship Specialty Start Date End Date Charleen Williamson APRN [address] [place] [address] PCP - General Family Medicine 06/29/20 documented as of this encounter
--- OUTSIDE RECORDS SUMMARY | 2024-05-09 13:55 | XMS_ITS | Encounter Summary ---
[facility] Organization [facility] Address [facility] [place] [address] Care Team Providers Care Bed Teacher Name Role Phone Charleen Williamson APRN Primary Care Provider [phone] Encounter Details Date Type Department Care Team (Latest Contact Info) Description 09/24/2022 Travel Social History Tobacco Use Types Packs/Day [...] PM EDT Office Visit Radiation Oncology at [address] [phone] Eleonora Mensah MD [facility] [place] [address] documented as of this encounter Visit Diagnoses Not on filedocumented in this encounter Care Teams Bed Teacher Relationship Specialty Start Date End Date Charleen Williamson APRN [address] [place] [address] PCP - General Family Medicine 06/29/20 documented as of this encounter
--- OUTSIDE RECORDS SUMMARY | 2024-05-09 13:55 | XMS_ITS | Encounter Summary ---
Author Organization [facility] Address [facility] [address] Care Team Providers Care Manuscript Reader Name Role Phone Charleen Williamson APRN Primary Care Provider +1 -[phone] Reason for Visit * Reason Comments Follow-up Encounter Details Date Type Department Care Team (Late st Contact Info) Description 08/13/2023 1:30 PM EDT Office Visit [place] [address] Tyra Cornejo MD [facility] DR [place]EM[place] [address] Malignant neoplasm of right breast in female, estrogen receptor positive, unspecified site of breast; Medication management Social History Tobacco Use Types Packs/Day Years [...] Sign Reading Time Taken Comments Blood Pressure 142/75 08/13/2023 1:33 PM EDT Pulse 68 08/13/2023 1:33 PM EDT Temperature 37.1 ??C (98.8 ??F) 08/13/2023 1:33 PM ED T Respiratory Rate 17 08/13/2023 1:33 PM EDT Oxygen Saturation 97% 08/13/2023 1:33 PM EDT Inhaled Oxygen Concentration - - Weight 78 kg (171 lb 15.3 oz) 08/13/2023 1:33 PM EDT Height 172 cm (5' 7.72) 08/13/2023 1:33 PM EDT Body Mass Index 26.37 08/13/2023 1:33 PM EDT documented in this encounter Progress Notes * Danni Aguero APRN - 08/13/2023 1:30 PM EDT Images from the original note were not included. [facility] Breast Oncology Clinic: Follow-up Visit Identification: 32 y.o. female with Stage 3 right breast cancer; s/p neoadjuvant chemotherapy with TCHP, R mastectomy/ALND; s/p T-DM1 for residual disease completed 01/29/22. Interim History: Here because she is interested in seeking and looking for approval from med onc. At today's visit, she has no breast concerns and denies any new lumps or bumps in her breasts or axilla. Review of Systems: General: Denies fevers, chills, [...] theend of May 2020. 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 - Not eligible for adjuvant tucatinib trial due to participation in the [place] axillary management trial. - TDM-1 q3 wks [...] tamoxifen 07/16 -tamoxifen alone as of 01/29/22 -08/13/23 holding tamoxifen for RFs: Menses started age 14. 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 - VUS was detected in the following genes: Gene Variant RET c.2982A>C (p.Ejp644Ryr) SDHB c.482A>G (p.Qeh196Ysz) SH: No smoking No current EtOH to [employer] Works occ on [employer] / unemployed No children - desires biological children in the future Objective Vitals: Patient Vitals for the past 24 hrs: Temp Pulse Resp BP SpO2 08/13/23 1333 37.1 ??C (98.8 ??F) 68 17 142/75 97 % Wt Readings from Last 3 Encounters: 08/13/23 78 kg (171 lb 15.3 oz) 06/10/23 79.7 kg (175 lb 11.2 oz) 05/28/23 71.8 kg (158 lb 4.6 oz) Physical Exam: Vitals reviewed. General: A&Ox3. Well-developed [...] y.o. premenopausal woman with a large, node+, ER/[place]+ HER2+ breast cancer, partial pathologic response to neoadjuvant TCHP [[id number]], s/p mastectomy/ALND, RT, now on tamoxifen alone. ROSALEE, she is here today for a f/u visit. #Breast cancer completed adjuvant T-DM1, 01/29/22. Stop tamoxifen today Reviewed POSITIVE trial results showing safety of [...] own vs surrogatevs adoption. Maternal medicine referral in place Discussed she should not restart tamoxifen while or and she may return to med onc if she has concerns at any time. Plan to see us in 2 years #Mammograms - please continue to follow w/ breast surgery who will order your L-sided mammogram #Vasomotor symptoms Continue Sertraline per Sonam Yancey APRN Brooks: - Stop tamoxifen and attempt with support from MFM. - F/u with med onc after / or 2 years whichever comes sooner. Manage stress levels, for any psychological concerns [...] interpreting results, and documenting in the chart). [facility] documented in this encounter Plan of Treatment Upcoming Encounters Date Type Department Care Team (Late st Contact Info) Description 02/13/2025 1:00 PM EDT Office Visit Radiation Oncology at [address] [phone] Eleonora Mensah MD [facility] [place] [address] documented as of this encounter Visit Diagnoses Diagnosis Malignant neoplasm of right breast in female, estrogen receptor positive, unspecified site of breast Medication management Encounter for long-term (current) use of other medications documented in this encounter Care Teams Manuscript Reader Relationship Specialty Start Date End Date Charleen Williamson APRN [address] [place] [address] PCP - General Family Medicine 06/29/20 documented as of this encounter
--- OUTSIDE RECORDS SUMMARY | 2024-05-09 13:55 | XMS_ITS | Encounter Summary ---
Author Organization [facility] Address [facility] [place] [address] Care Team Providers Care Computer Repair Instructor Name Role Phone Charleen Williamson APRN Primary Care Provider +1 [phone] Encounter Details Date Type Department Care Team (Latest Contact Info) Description 05/26/2023 Travel Social History Tobacco Use Types Packs/Day [...] place to sleep or slept in a detention (including now)? No 04/23/2021 Sex and Gender Information Value Date Recorded Sex Assigned at Female 07/19/2020 8:39 AM EDT Gender Identity Female 08/04/2022 1:11 PM EDT Sexual Orientation Straight 08/04/2022 1: 11 PM EDT documented as of this encounter Plan of Treatment Upcoming Encounters Date Type Department Care Team (Late st Contact Info) Description 02/13/2025 1:00 PM EDT Office Visit Radiation Oncology at [address] [phone] Eleonora Mensah MD [facility] [place] [address] documented as of this encounter Visit Diagnoses Not on filedocumented in this encounter Care Teams Computer Repair Instructor Relationship Specialty Start Date End Date Charleen Williamson APRN [address] [place] [address] PCP - General Family Medicine 06/29/20 documented as of this encounter
--- OUTSIDE RECORDS SUMMARY | 2024-05-09 13:55 | XMS_ITS | Encounter Summary ---
Author Organization [facility] Address [facility] [place] [address] Care Team Providers Care Management Tech Name Role Phone Charleen Williamson APRN Primary Care Provider +1 -[phone] Encounter Details Date Type Department Care Team (Latest Contact Info) Description 06/10/2023 Travel Social History Tobacco Use Types Packs/Day [...] PM EDT Office Visit Radiation Oncology at [address] [phone] Eleonora Mensah MD [facility] [place] [address] documented as of this encounter Visit Diagnoses Not on filedocumented in this encounter Care Teams Management Tech Relationship Specialty Start Date End Date Charleen Williamson APRN [address] [place] [address] PCP - General Family Medicine 06/29/20 documented as of this encounter
--- OUTSIDE RECORDS SUMMARY | 2024-05-09 13:55 | XMS_ITS | Encounter Summary ---
Author Organization [facility] Address [facility] [place] [address] Care Team Providers Care Financing Analyst Name Role Phone Charleen Williamson APRN Primary Care Provider +1 [phone] Reason for Visit * Reason Comments Follow-up Encounter Details Date Type Department Care Team (Late st Contact Info) Description 09/24/2022 2:30 PM EDT Office Visit [place]ology [place] [address] Tyra Cornejo MD [facility] DR H[place] [address] 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, estrogen receptor positive Social History Tobacco Use Types Packs/Day Years [...] place to sleep or slept in a mcc (including now)? No 04/23/2021 Sex and Gender Information Value Date Recorded Sex Assigned at Female 07/19/2020 8:39 AM EDT Gender Identity Female 08/04/2022 1:11 PM EDT Sexual Orientation Straight 08/04/2022 1: 11 PM EDT documented as of this encounter Last Filed Vital Signs Vital Sign Reading Time Taken Comments Blood Pressure 115/72 09/24/2022 2:14 PM EDT Pulse 77 09/24/2022 2:14 PM EDT Temperature 36.3 ??C (97.3 ??F) 09/24/2022 2:14 PM ED T Respiratory Rate 18 09/24/2022 2:14 PM EDT Oxygen Saturation 98% 09/24/2022 2:14 PM EDT Inhaled Oxygen Concentration - - Weight 73.3 kg (161 lb 9.6 oz) 09/24/2022 2:14 P M EDT Height 176.2 cm (5' 9.37) 09/24/2022 2:14 PM ED T Body Mass Index 23.61 09/24/2022 2:14 PM EDT documented in this encounter Progress Notes * Tyra Cornejo MD - 09/24/2022 2:30 PM EDT [facility] ?? Breast Oncology Clinic: Follow-up Visit ?? Identification:??32??y.o.??female with Stage 3 right breast cancer; s/p neoadjuvant chemotherapy with TCHP, R mastectomy/ALND; s/p T-DM1 for residual disease completed 01/29/22. ?? Interim History:??Alis??presents today for follow-up. She reports doing well on tamoxifen. Lymphedema is stable but she can't wear the sleeve at work. 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 . Doing well on Sertraline. Hot flashes tolerable, better than when she initially started tamoxifen. She is inquiring about [place] study trial data presented at [facility]. Had excision of flexor sheath ganglion right [...] Denies dysuria, hematuria. Repro: Premenopausal. Copper IUD placed. s/p goserelin, last dose??10/16. No menses. Occasional pelvic cramping, no breast tenderness. Interested in discussing fertility and process for seeking .?No vaginal bleeding. Denies vaginal dryness or irritation. Heme: Denies bleeding, easy bruising. MSK: Denies??other??new or worsening skeletal pain, joint pains, myalgias. Neuro: Denies dizziness, lightheadedness, weakness, balance problems. ?? Psych:??stable.? Breast Cancer History: Diagnosis: -??dx at age 29 :self-palpated a mass under the right nipple when she noticed it had inverted at the end of May 2020.?? 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 - Not eligible for adjuvant tucatinib trial due to participation in the [place] axillary management trial. - TDM-1??q3 wks x 14 cycles completed 01/29/22 - RT completed 04/22/21??to 06/03/21: 50??Gy in 25??fxs to R supraclavicular fossa, R axilla &??Rchest wall??with 6 &??10 MV Xray external beam, followed by volume reduction &??10 Gy/5 fxsto mastectomy scar with 9 MeV electron beam, [...] paternal aunt. ?? On??07/23/2020,??Alis??underwent genetic testing via [employer] Multi-Cancer Panel: - A pathogenic MUTYH??mutation was detected (only one copy), specifially??c.1187G>A (p.[id number]). - VUS was detected in the following??genes: Gene?Variant RET?c.2982A>C (p.Ftm438Bkk) SDHB ?c.482A>G (p.[id number]) ?? SH: No smoking No current EtOH to [employer] occ on [employer] / unemployed No children - desires biological children in the future ?? Vitals: Last value Range last 8 hrs Temperature Temp: 36.3 ??C (97.3 ??F) Temp: [36.3 ??C (97.3 ??F)] Heart Rate Heart Rate: 77 Heart Rate: [77] Blood Pressure BP: 115/72 BP: (115)/(72) Respiratory Rate Resp: 18 Resp: [18] SpO2 SpO2: 98 % SpO2: [98 %] Physical Exam: Vitals reviewed. General: A&Ox3. Well-developed??and well-nourished.??No acute distress. Head:??Normocephalic, atraumatic. Eyes: EOMs intact. Conjunctiva pink. No scleral icterus. Pulmonary:??Breathing comfortably on room air. Breasts: Right: s/p mastectomy without reconstruction. No chest wall masses or tenderness. Left: no masses, tenderness, erythema or edema. Extremities:??No??LE??edema.??Right??arm with 1+ lymphedema, normal ROM. Musculoskeletal:??no pointtenderness over ribs. Neurological: Gait normal. No focal deficits noted. Skin: Warm??and dry.??No rashes??noted. Psychiatric: ??Affect is mood-congruent. Insight is good. Thought-content is normal, future-oriented. ? Assessment & Plan:??Alis??is a 32??y.o.??premenopausal??woman with a large, node+, ER/[place]+ HER2+ breast cancer, partial pathologic response to neoadjuvant TCHP??[[id number]], s/p??mastectomy/ALND, RT, now on tamoxifen alone. ROSALEE. ?? #Breast cancer ??? completed adjuvant T-DM1, 01/29/22.? continue tamoxifen until 07/18. ??? Reviewed POSITIVE trial results showing safety of interrupting tamoxifen to seek after 2 yrs, then resuming after child bearing. . ?? #Treatment monitoring for toxicity Check cholesterol panel on tamoxifen ?? #Right UE lymphedema Continue??lymphedema sleeve ?#Future childbearing ??? Safety of interrupting endocrine therapy to allow for is supported by retrospective data showing no increased risk of recurrence from , and -- primary results of the POSITIVE study show that, under close [...] a f/u fertility appt.? #Vasomotor symptoms ??? Continue Sertraline per??Sonam Bc METAL PICKLING EQUIPMENT OPERATOR. ?? RTC in 6 months. Contact fertility clinic for work up after interrupting tamoxifen approx 07/18. ?? documented in this encounter Plan of Treatment Upcoming Encounters Date Type Department Care Team (Late st Contact Info) Description 02/13/2025 1:00 PM EDT Office Visit Radiation Oncology at [address] [phone] Eleonora Mensah MD [facility] [place] [address] documented as of this encounter Visit Diagnoses Diagnosis 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, estrogen receptor positive documented in this encounter Care Teams Financing Analyst Relationship Specialty Start Date End Date Charleen Williamson APRN [address] [place] [address] PCP - General Family Medicine 06/29/20 documented as of this encounter
--- OUTSIDE RECORDS SUMMARY | 2024-05-09 13:55 | XMS_ITS | Encounter Summary ---
Author Organization [facility] [place] [address] Care Team Providers Care Manager In Training Name Role Phone Charleen Williamson APRN Primary Care Provider +1 -[phone] Encounter Details Date Type Department Care Team (Late st Contact Info) Description 07/11/2022 Orders Only Hematology [place] [phone] Meg Titus Social History Tobacco Use Types Packs/Day Years [...] place to sleep or slept in a long term (including now)? No 04/23/2021 Sex and Gender Information Value Date Recorded Sex Assigned at Female 07/19/2020 8:39 AM EDT Gender Identity Female 08/04/2022 1:11 PM EDT Sexual Orientation Straight 08/04/2022 1: 11 PM EDT documented as of this encounter Plan of Treatment Upcoming Encounters Date Type Department Care Team (Late st Contact Info) Description 02/13/2025 1:00 PM EDT Office Visit Radiation Oncology at [address] [phone] Eleonora Mensah MD [facility] [place] [address] documented as of this encounter Visit Diagnoses Not on filedocumented in this encounter Care Teams Manager In Training Relationship Specialty Start Date End Date Charleen Williamson APRN [address] [place] [address] PCP - General Family Medicine 06/29/20 documented as of this encounter
--- OUTSIDE RECORDS SUMMARY | 2024-05-09 13:55 | XMS_ITS | Encounter Summary ---
[place] [address] Care Team Providers Care Log Chain Feeder Name Role Phone Charleen Williamson APRN Primary Care Provider +1 -[phone] Encounter Details Date Type Department Care Team (Late st Contact Info) Description 12/17/2022 Telephone [place]ematology [place] [address] Delma Briones RN Social History Tobacco Use Types Packs/Day Years [...] place to sleep or slept in a nursing home (including now)? No 04/23/2021 Sex and Gender Information Value Date Recorded Sex Assigned at Female 07/19/2020 8:39 AM EDT Gender Identity Female 08/04/2022 1:11 PM EDT Sexual Orientation Straight 08/04/2022 1: 11 PM EDT documented as of this encounter Miscellaneous Notes * Telephone Encounter - Delma Briones RN - 12/17/2022 10:20 AM EDT Call to [facility], they report they already transferred the trazodone script and she filled it on 11/15. Pharmacist, juni reports it was only filled for a 30 day supply and given that it was written for 90days, they are able to provide her with refills. They do not require a new script. Call placed to Alis to let her know that [facility] is refilling her trazodone and it should be ready later today. * Telephone Encounter - Delma Briones RN - 12/17/2022 10:13 AM EDT ----- Message from Delma Briones RN sent at 12/17/2022 9:30 AM EDT ----- Regarding: FW: Trazadone script ----- Message ----- From: Danni Ryan Sent: 12/17/2022 8:46 AM EDT To: [facility] Hem Onc Triage Breast Subject: Trazadone script Good morning Alis called and states insurance requests she fill at [facility] pharmacy and requests new script be sent to them please Thank you documented in this encounter Plan of Treatment Upcoming Encounters Date Type Department Care Team (Kirstin st Contact Info) Description 02/13/2025 1:00 PM EDT Office Visit Radiation Oncology at [address] [phone] Eleonora Mensah MD [facility] [place] [address] documented as of this encounter Visit Diagnoses Not on filedocumented in this encounter Care Teams Log Chain Feeder Relationship Specialty Start Date End Date Charleen Williamson, OBSTETRIC ANAESTHETIST [address] [place] [address] PCP - General Family Medicine 06/29/20 documented as of this encounter
--- OUTSIDE RECORDS SUMMARY | 2024-05-09 13:55 | XMS_ITS | Encounter Summary ---
Author Organization [facility] [place] [address] Care Team Providers Care Securities And Real Estate Director Name Role Phone Charleen Williamson APRN Primary Care Provider +1 -[phone] Reason for Visit * Reason Onset Date Comments Medication Refill 09/01/2022 Encounter Details Date Type Department Care Team (Late st Contact Info) Description 09/01/2022 Refill Hematology [place] [phone] Marisela Gonzalez, RETAIL INTERIOR DESIGNER ROOM Social History Tobacco Use Types Packs/Day Years [...] place to sleep or slept in a senior living (including now)? No 04/23/2021 Sex and Gender Information Value Date Recorded Sex Assigned at Female 07/19/2020 8:39 AM EDT Gender Identity Female 08/04/2022 1:11 PM EDT Sexual Orientation Straight 08/04/2022 1: 11 PM EDT documented as of this encounter Miscellaneous Notes * Telephone Encounter - Marisela Gonzalez RN - 09/01/2022 9:19 AM EDT Message received from medical secretary receptionist: Alis called this morning and has requested we send her prescription to [facility]. tamoxifen (NOLVADEX) 20 mg Tablet [[id number]] Per review of medical record last prescribed 05/2022 to different pharmacy Unable to locate pharmacy in [place]. Spoke w/ pt who stated that it's the pharmacy at [facility]- [phone] phone #. Explained to pt need to add pharmacy to [place] system prior to being able to escribe there. Pt verbalized understanding. Call placed to [facility], spoke w/ Barbara who stated that they are [place] [facility] [place]. Able to locate pharmacy in [place]. Script pended to provider for review, signature and escribe documented in this encounter Plan of Treatment Upcoming Encounters Date Type Department Care Team (Late st Contact Info) Description 02/13/2025 1:00 PM EDT Office Visit Radiation Oncology at [address] [phone] Eleonora Mensah MD [facility] [place] [address] documented as of this encounter Visit Diagnoses Not on filedocumented in this encounter Care Teams Securities And Real Estate Director Relationship Specialty Start Date End Date Charleen Williamson APRN [address] [place] [address] PCP - General Family Medicine 06/29/20 documented as of this encounter
--- OUTSIDE RECORDS SUMMARY | 2024-05-09 13:55 | XMS_ITS | Encounter Summary ---
[place] [address] Care Team Providers Care Tallow Maker Name Role Phone Charleen Williamson APRN Primary Care Provider +1 -[phone] Reason for Visit * Reason Onset Date Comments Other 06/10/2022 Medication quest ion Encounter Details Date Type Department Care Team (Late st Contact Info) Description 06/10/2022 Telephone [place]ematology [place] [address] Subha Holt, RN Other (Medication question) Social History Tobacco Use Types Packs/Day Years [...] encounter Miscellaneous Notes * Telephone Encounter - Subha Holt RN - 06/10/2022 1:15 PM EST ----- Message from Danni Ryan sent at 06/10/2022 12:51 PM EST ----- Regarding: Rose Mary rob Contact: [facility] in [place] just called and let me know that they and all locale pharmacies are out ofthis, and don't know when they'll get more. They're wondering if you can ok a substitute? [phone] Call placed to patient an spoke to Alis. She clarifies that she is looking for the Xylocaine prescription not the EMLA cream. [facility] is out of stock. Patient does not like [facility]. Patient checked message from [facility] which says they are out of stock but it is on it's way. Alis will call [facility] and see what on it's way means. If it is in the next day or two she will wait. If it is too far out she will ask them fi they can transfer to a different [facility]. If none of the [facility] can get it in a timely fashion she will ask them to transfer the RX to [facility]. If none of these options work she will call us back and ask that we write the Rx to mail order. documented in this encounter Plan of Treatment Upcoming Encounters Date Type Department Care Team (Late st Contact Info) Description 02/13/2025 1:00 PM EDT Office Visit Radiation Oncology at [address] [phone] Eleonora Mensah MD [facility] [place] [address] documented as of this encounter Visit Diagnoses Not on filedocumented in this encounter Care Teams Tallow Maker Relationship Specialty Start Date End Date Charleen Williamson APRN [address] [place] [address] PCP - General Family Medicine 06/29/20 documented as of this encounter
--- OUTSIDE RECORDS SUMMARY | 2024-05-09 13:55 | XMS_ITS | Encounter Summary ---
Author Organization [facility] Address [facility] [place] [address] Care Team Providers Care Administrative Services Manager Name Role Phone Charleen Williamson APRN Primary Care Provider +1 [phone] Encounter Details Date Type Department Care Team (Latest Contact Info) Description 08/13/2023 Travel Social History Tobacco Use Types Packs/Day [...] PM EDT Office Visit Radiation Oncology at [address] [phone] Eleonora Mensah MD [facility] [place] [address] documented as of this encounter Visit Diagnoses Not on filedocumented in this encounter Care Teams Administrative Services Manager Relationship Specialty Start Date End Date Charleen Williamson APRN [address] [place] [address] PCP - General Family Medicine 06/29/20 documented as of this encounter
--- OUTSIDE RECORDS SUMMARY | 2024-05-09 13:55 | XMS_ITS | Encounter Summary ---
Author Organization [facility] Address [facility] [place] [address] Care Team Providers Care Hyperion Administrator Name Role Phone Charleen Williamson APRN Primary Care Provider +1 [phone] Encounter Details Date Type Department Care Team (Late st Contact Info) Description 05/06/2022 3:30 PM EST TH Visit (TeleHealth) [place] [phone] Jossy Yancey SUPERVISOR FUNCTIONAL TESTING [facility] [place] [address] Current moderate episode of major depressive disorder without prior episode (Primary Dx); HER2-positive carcinoma of right breast Social History Tobacco Use Types Packs/Day [...] to sleep or slept in a senior care (including now)? No 04/23/2021 Sex and Gender Information Value Date Recorded Sex Assigned at Female 07/19/2020 8:39 AM EDT Gender Identity Female 08/04/2022 1:11 PM EDT Sexual Orientation Straight 08/04/2022 1: 11 PM EDT documented as of this encounter Progress Notes * Jossy Yancey APRN - 05/06/2022 3:30 PM EST PSYCHIATRY CONSULTATION AT [facility] FOLLOW UP Time Spent: 25 minutes Location: Alis located in her home in [place] Attendee(s): Jossy Snell APRN HISTORY Patient Identification: Alis Silva is a 31 y.o. Female presents today with MDD after their initial psychiatric evaluation on 08/06/21. Patient has locally advanced right breast cancer; s/p neoadjuvant chemotherapy with TCHP, R mastectomy/ALND; currently on adjuvant T-DM1 for residual disease. Current cancer treatment regiment: she is s/p??mastectomy/ALND, RT. She started tamoxifen on 06/18/21 and is also on adjuvant T-DM1, with Goserelin 10.8 mg q12 weeks (for ovarian suppression). Will only be on Tamoxifen after 01/29/22 Chief Complaint: I'm okay. HPI: () Currently at 150 mg and reports that she's 'good'. Feels that being done with one oncologic medication has been helpful. Denies side effects that are concerning. Feels her mood has improved and overall sustained with less irritability. Anxiety continues at times, especially in the afternoon. Notices when she doesn't take hydroxyzine, propranolol and NAC. Holidays were good, spent mostly at home. S/p cyst removal-will have wrap removed next week. Hoping for increased function/less pain. Unsure if it will make a difference in swelling. Looking towards adoption though is frustrated with the alexandre of adoption. Did apply for dental school-hopes to hear back next week Sleep at nighttime-'for the most part okay'. Discuss returning care back to Charleen; Alis is open to this and understands I am available if needed in the future. Denies SI/HI. Pertinent Medication Side Effects: Gabapentin I felt like a zombie when I took it in the morning (discontinued), Effexor: Restlessness day/evening Patient denies signs/symptoms of prasanna or hypomania, mood swings, paranoia, or a/v/t/g hallucinations. The patient denies suicidal/homicidal thoughts, intents, or plans. Support and encouragement were provided. PHQ9 Questionnaires Data (Clinic and Pt Entered): Today's value PHQ-9 QUESTIONNAIRE (AMB) 04/23/2021 Little interest or pleasure (Clinic) Not at all Down, depressed, hopeless (Clinic) Not at all Most Recent GAD7 GAD7 Questionnaires Data: last 4 values No flowsheet data found. Problem List: Patient Active Problem List Diagnosis Code ??? Malignant neoplasm of right breast in female, estrogen receptor positive C50.911, Z17.0 ??? Lymphedema of arm I89.0 ??? Subcutaneous mass of finger of right hand R22.31 ??? Ganglion cyst of flexor tendon sheath right long finger M67.40 Current Medications: Current Outpatient Medications Medication Sig Dispense Refill ??? traMADoL (Ultram) 50 mg Tablet Take 1 tablet by mouth every 6 hours as needed for Pain. 12 tablet 0 ??? meloxicam (MOBIC) 7.5 mg Tablet TAKE 1 TABLET BY MOUTH DAILY. MAY INCREASE TO 2 TABLETS DAILY NEEDED 60 tablet 5 ??? sertraline HCl (SERTRALINE ORAL) Take 150 mg by mouth. ??? lidocaine-prilocaine (EMLA) Cream APPLY A THINK LAYER OF CREAM TO DESIGNATED SITE OF INTACT SKIN 60 MINUTES PRIOR TO ACCESING PORT. COVER SITE WITH OCCLUSIVE DRESSING. (Patient not taking: Reported on 03/18/2022) 30 g 1 ??? lidocaine (Xylocaine) 2 % jelly Apply topically to anal fissure as needed for pain relief. Do not use more than 30 mL in a 24-hr period. (Patient not taking: Reported on 03/18/2022) 30 mL 2 ??? diclofenac (Voltaren) 1 % Gel Apply 2 g to each affected area up to 4 times daily; maximum doseper joint: 8 g/day; maximum total body dose (all combined joints): 32 g/day. (Patient taking differently: as needed. Apply 2 g to each affected area up to 4 times daily; maximum dose per joint: 8 g/day; maximum total body dose (all combined joints): 32 g/day.) 200 g 0 ??? tamoxifen (NOLVADEX) 20 mg Tablet Take 1 tablet by mouth daily. 90 tablet 3 ??? traZODone (Desyrel) 50 mg Tablet Take 3 tablets by mouth nightly. 90 tablet 3 ??? Miscellaneous Medical Supply Misc by [facility]Non-Drug; Combo Route) route. Remedy Phytoplex Moisturizer. Apply to area of radiation twice a day but no less than 2 hours before a treatment. ??? acetaminophen (Tylenol) 500 mg Tablet Take 2 tablets by mouth every 6 hours. (Patient taking differently: Take 1,000 mg by mouth as needed.) 30 tablet 1 ??? acetylcysteine (NAC) 600 mg Tablet Take 600 mg by mouth 2 times daily. ??? omeprazole (PriLOSEC) 40 mg Capsule, Delayed Release(E.C.) Take 40 mg by mouth daily. ??? propranoloL (Inderal) 20 mg Tablet Take 20 mg by mouth 2 times daily. ??? ondansetron ODT (Zofran-ODT) 4 mg Tablet, Rapid Dissolve Take 4 mg by mouth as needed. ??? lactobacillus rhamnosus, GG, (CULTURELLE) 10 billion cell Capsule Take 1 capsule by mouth daily. ??? melatonin 5 mg Tablet Take by mouth nightly. ??? hydrOXYzine (Atarax) 10 mg Tablet TAKE 1 TO 2 TABLETS BY MOUTH EVERY 8 HOURS NEEDED FOR ANXIETY No current facility-administered medications for this visit. Review of Systems: System Positive Negative Psychiatric X (as per HPI) Constitutional fatigue Integumentary x Eyes/Ears/Sinuses x Cardiac x Respiratory x Gastrointestinal x Genitourinary x Vascular Right hand lymphedema Musculoskeletal Low back pain, overall chronic Neurologic x Hematologic x Endocrine x Allergy x PFSH: (0) PAST PSYCHIATRIC HISTORY: ?? Hospitalizations: none ?? Suicide attempts: borderline suicidal when I got my diagnosis-unsure of what changed her mind ?? Counseling/Therapy: through PCP had a couple meetings with a therapist post-diagnosis ?? Medication Trials: current zoloft 200 mg- started 07/25/20-tapered off 07/2021 due to loss of efficacy. Restarted 01/15/22. Propranolol 20 mg BID (HR and anxiety) Hydroxyzine buspar (discontinue 08/06/21)-felt quite activated at night with it Trazodone 150 mg Effexor 225 mg (started at 37.5 mg 09/08/21, began to taper off 11/13/21 after 2 weeks of 225 mg withno obvious benefit since starting the medication) Trintellix 10 mg, increased to 20 mg x 3 weeks: restlessness SUBSTANCE USE HISTORY: ETOH: None currently Drugs: none Nicotine: none Caffeine: Very minimal, doesn't like coffee ?? FAMILY PSYCHIATRIC HISTORY: We never really talked about mental health growing up. No family history of suicide attempts ?? DEVELOPMENTAL/PSYCHOSOCIAL HISTORY: Currently lives in [place], [place] with her Elmer Relationship status: . 4 years Quality of relationship: supportive Progeny: Children: 0 Grandchildren: 0 Occupation: not working now; on disability-RA, diabetes Leisure pursuits: TV, reading Daily pursuits: Walking, getting dogs out, reading Continued engagement in important activities: yes. since your diagnosis have you been able to remain involved in activities that are important to you? ?? 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 Trauma/Abuse History: not reviewed EXAM Constitutional System ? Vital Signs: There were no vitals taken for this visit. Musculoskeletal System ? Muscle Strength/Tone: normal tone, no weakness ? Gait and Station: steady gait, without abnormality Psychiatric System ? General Appearance/Behavior: Cooperative. Appropriately dressed; behavior is guarded ? Movements: no abnormal movements or tremor ? Speech: slow rate, volume, and tone ? Thought Process: coherent, goal-directed ? Associations: Tight ? Abnormal Thoughts and Perceptions / Thought Content: Focused on Homicidality / Violent Thoughts: Denies Suicidality: Denies Hallucinations: Denies Delusions: None Obsessions: None ? Judgment and Insight: good/fair ? Mood & Affect: Mood is okay. Affect is flat, minimally engaged ? Orientation: to person, place, time and situation ? Attention/Concentration: grossly intact ? Memory: grossly intact ? Language: normal ? Fund of Knowledge: school admissions representative of education level MEDICAL DECISION MAKING ; ASSESSMENT: Alis Silva is a 31 y.o. Female with symptoms of MDD and anxiety, both likely exacerbated by previous ovarian suppression. We will continue Zoloft at 150 mg as mood continues to be overall positively sustained. If anxiety continues to increase, Zoloft can be titrated back to 200 mg. RECOMMENDATIONS/PLAN ?? Safety: SI/HI denied; reviewed office and emergency contact info. Crisis line is [phone] ?? Medications: Zoloft 150 mg with plan to continue care with PCP ?? Additional treatment recommendations: Continue with Sharon as scheduled ?? FOLLOW-UP CARE: 1. Follow up care: not planned-will continue with PCP and can reach out as needed 3. Pt is aware is aware of emergency contact procedures and given crisis phone number Routine suicide risk assessment: Acute suicide risk is considered low in light of personal, genetic, and demographic factors. Thank you for consulting me in the care of Alis Silva. I would be happy to see Alis Silva for another consultation in the future if that would be helpful. Please contact me with any questions regarding her care or to collaborate further on this case. Jossy Yancey APRN 05/06/2022 documented in this encounter Plan of Treatment Upcoming Encounters Date Type Department Care Team (Late st Contact Info) Description 02/13/2025 1:00 PM EDT Office Visit Radiation Oncology at [address] [phone] Eleonora Mensah MD [facility] [place] [address] documented as of this encounter Visit Diagnoses Diagnosis Current moderate episode of major depressive disorder without prior episode- Primary HER2-positive carcinoma of right breast documented in this encounter Care Teams Hyperion Administrator Relationship Specialty Start Date End Date Charleen Williamson APRN [address] [place] [address] PCP - General Family Medicine 06/29/20 documented as of this encounter
--- OUTSIDE RECORDS SUMMARY | 2024-05-09 13:55 | XMS_ITS | Encounter Summary ---
Author Organization [facility] Address [facility] [place] [address] Care Team Providers Care Jewel Hole Finish Opener Name Role Phone Charleen Williamson APRN Primary Care Provider [phone] [phone] Encounter Details Date Type Department Care Team (Late st Contact Info) Description 06/12/2023 Orders Only Hematology [place] [phone] Eleonora Saez PA [facility] [place] [address] Malignant neoplasm of right breast in female, estrogen receptor positive, unspecified site of breast; Lymphedema of arm Social History Tobacco Use [...] place to sleep or slept in a retirement (including now)? No 04/23/2021 Sex and Gender Information Value Date Recorded Sex Assigned at Female 07/19/2020 8:39 AM EDT Gender Identity Female 08/04/2022 1:11 PM EDT Sexual Orientation Straight 08/04/2022 1: 11 PM EDT documented as of this encounter Plan of Treatment Upcoming Encounters Date Type Department Care Team (Late st Contact Info) Description 02/13/2025 1:00 PM EDT Office Visit Radiation Oncology at [address] [phone] Eleonora Mensah MD [facility] [place] [address] documented as of this encounter Visit Diagnoses Diagnosis Malignant neoplasm of right breast in female, estrogen receptor positive, unspecified site of breast Lymphedema of arm Other lymphedema documented in this encounter Care Teams Jewel Hole Finish Opener Relationship Specialty Start Date End Date Charleen Williamson APRN [address] [place] [address] PCP - General Family Medicine 06/29/20 documented as of this encounter
--- OUTSIDE RECORDS SUMMARY | 2024-05-09 13:55 | XMS_ITS | Encounter Summary ---
[place] [address] Care Team Providers Care Nut Processing Supervisor Name Role Phone Charleen Williamson APRN Primary Care Provider +1 [phone] Reason for Visit * Reason Onset Date Comments Medication Refill 03/24/2023 Encounter Details Date Type Department Care Team (Late st Contact Info) Description 03/24/2023 Refill Hematology [place] [phone] Delma Briones RN Aromatase inhibitor-associated arthralgia Social History Tobacco Use Types Packs/Day Years [...] PM EDT Office Visit Radiation Oncology at [address] [phone] Eleonora Mensah MD [facility] [place] [address] documented as of this encounter Visit Diagnoses Diagnosis Aromatase inhibitor-associated arthralgia Pain in joint, site unspecified documented in this encounter Care Teams Nut Processing Supervisor Relationship Specialty Start Date End Date Charleen Williamson APRN [address] [place] [address] PCP - General Family Medicine 06/29/20 documented as of this encounter
--- OUTSIDE RECORDS SUMMARY | 2024-05-09 13:55 | XMS_ITS | Encounter Summary ---
Author Organization [facility] Address [facility] [place] [address] Care Team Providers Care Embedder Name Role Phone Charleen Williamson APRN Primary Care Provider +1 [phone] Encounter Details Date Type Department Care Team (Latest Contact Info) Description 08/30/2023 Travel Social History Tobacco Use Types Packs/Day [...] PM EDT Office Visit Radiation Oncology at [address] [phone] Eleonora Mensah MD [facility] [place] [address] documented as of this encounter Visit Diagnoses Not on filedocumented in this encounter Care Teams Embedder Relationship Specialty Start Date End Date Charleen Williamson APRN [address] [place] [address] PCP - General Family Medicine 06/29/20 documented as of this encounter
--- OUTSIDE RECORDS SUMMARY | 2024-05-09 13:55 | XMS_ITS | Encounter Summary ---
Author Organization [facility] Address [facility] [place] [address] Care Team Providers Care Barrel Lathe Operator Name Role Phone Charleen Williamson APRN Primary Care Provider +1 -[phone] Encounter Details Date Type Department Care Team (Latest Contact Info) Description 02/10/2023 Travel Social History Tobacco Use Types Packs/Day [...] EDT Office Visit Radiation Oncology at [address] [phone] Eleonora Mensah MD [facility] [place] [address] documented as of this encounter Visit Diagnoses Not on filedocumented in this encounter Care Teams Barrel Lathe Operator Relationship Specialty Start Date End Date Charleen Williamson APRN [address] [place] [address] PCP - General Family Medicine 06/29/20 documented as of this encounter
--- OUTSIDE RECORDS SUMMARY | 2024-05-09 13:55 | XMS_ITS | Encounter Summary ---
Author Organization [facility] Address [facility] [place] [address] Care Team Providers Care Electronics Technology Department Chair Name Role Phone Charleen Williamson APRN Primary Care Provider +1 -[phone] Encounter Details Date Type Department Care Team (Late st Contact Info) Description 12/08/2022 Telephone Psychiatry [place] [address] Xiao Crowley Social History Tobacco Use Types Packs/Day Years [...] place to sleep or slept in a chcf (including now)? No 04/23/2021 Sex and Gender Information Value Date Recorded Sex Assigned at Female 07/19/2020 8:39 AM EDT Gender Identity Female 08/04/2022 1:11 PM EDT Sexual Orientation Straight 08/04/2022 1: 11 PM EDT documented as of this encounter Miscellaneous Notes * Telephone Encounter - Xiao Crowley - 12/08/2022 8:59 AM EDT Pt called looking to reschedule her apt on 02/16. Call back is [phone]. Thank you documented in this encounter Plan of Treatment Upcoming Encounters Date Type Department Care Team (Late st Contact Info) Description 02/13/2025 1:00 PM EDT Office Visit Radiation Oncology at [address] [phone] Eleonora Mensah MD [facility] [address] [place] [address] documented as of this encounter Visit Diagnoses Not on filedocumented in this encounter Care Teams Electronics Technology Department Chair Relationship Specialty Start Date End Date Charleen Williamson APRN [address] [place] [address] PCP - General Family Medicine 06/29/20 documented as of this encounter
--- OUTSIDE RECORDS SUMMARY | 2024-05-09 13:55 | XMS_ITS | Encounter Summary ---
Author Organization [facility] Address [facility] [place] [address] Care Team Providers Care Sewer Digger Name Role Phone Charleen Williamson APRN Primary Care Provider +1 -[phone] Encounter Details Date Type Department Care Team (Latest Contact Info) Description 06/08/2023 Travel Social History Tobacco Use Types Packs/Day [...] place to sleep or slept in a fpc (including now)? No 04/23/2021 Sex and Gender Information Value Date Recorded Sex Assigned at Female 07/19/2020 8:39 AM EDT Gender Identity Female 08/04/2022 1:11 PM EDT Sexual Orientation Straight 08/04/2022 1: 11 PM EDT documented as of this encounter Plan of Treatment Upcoming Encounters Date Type Department Care Team (Late st Contact Info) Description 02/13/2025 1:00 PM EDT Office Visit Radiation Oncology at [address] [phone] Eleonora Mensah MD [facility] [address] [place] [address] documented as of this encounter Visit Diagnoses Not on filedocumented in this encounter Care Teams Sewer Digger Relationship Specialty Start Date End Date Charleen Williamson APRN [address] [place] [address] PCP - General Family Medicine 06/29/20 documented as of this encounter
--- OUTSIDE RECORDS SUMMARY | 2024-05-09 13:55 | XMS_ITS | Encounter Summary ---
Author Organization [facility] Address [facility] [place] [address] Care Team Providers Care Swat Team Member Name Role Phone Charleen Williamson APRN Primary Care Provider +1 -[phone] Reason for Referral * Physical Therapy (Routine) - Closed Specialty Diagnoses / Procedures Referred By Contmaycol weston Referred To Contact Diagnoses Ganglion cyst of flexor tendon sheath Yoshi Abbasi MD [facility] [place] [address] Physical Therapy, [address] [address] Referral ID Status Reason Start Date Expiration Date V isits Requested Visits Authorized [id number] Closed Evaluate and Treat 05/12/2022 11/08/2022 12 12 Reason for Visit * Reason Comments Post Op NXR DOS:04/29/22 RIGH T HAND CYST EXC Encounter Details Date Type Department Care Team (Late st Contact Info) Description 05/12/2022 10:00 AM EST Office [place] [phone] Yoshi Abbasi MD [facility] [place] [address] Ganglion cyst of flexor tendon sheath right long finger Social History Tobacco Use Types Packs/Day Years [...] place to sleep or slept in a long-term (including now)? No 04/23/2021 Sex and Gender Information Value Date Recorded Sex Assigned at Female 07/19/2020 8:39 AM EDT Gender Identity Female 08/04/2022 1:11 PM EDT Sexual Orientation Straight 08/04/2022 1: 11 PM EDT documented as of this encounter Last Filed Vital Signs Vital Sign Reading Time Taken Comments Blood Pressure 112/64 05/12/2022 9:53 AM EST Pulse - - Temperature - - Respiratory Rate - - Oxygen Saturation - - Inhaled Oxygen Concentration - - Weight 78 kg (172 lb) 05/12/2022 9:53 AM EST Height 175.3 cm (5' 9) 05/12/2022 9:53 AM EST Body Mass Index 25.4 05/12/2022 9:53 AM EST documented in this encounter Progress Notes * Yoshi Abbasi MD - 05/12/2022 10:00 AM EST Alis Silva underwent excision of a flexor sheath ganglion from between the A1 and A2 pulleys of her right long finger done on 04/29/2022. She had pre- existing lymphedema and therefore this was done without a tourniquet. She feels as though her hand is a bit more swollen since her surgery and her fingers are a bit stiff. Examination reveals that her right long finger is sensate and well perfused. Her right hand is mildly more swollen than it was prior to surgery consistent with lymphedema. Her incision does not appear to be infected and there is no drainage. Sutures are being removed and Steri-Strips will be applied today. She will be referred to her lymphedema therapist in the [place] area for follow-up management to help her with her lymphedema. She will see me back for this in the future on an as-needed basis. * Nona Amaya - 05/12/2022 10:00 AM EST Patient identification was verified using two identifiers and consent was obtained. YES Patient verbalized understanding of procedure: YES The incision area was cleaned and prepped using sterile antiseptic swab. YES Sterile gauze was placed next to suture line to act as a receptacle for removed bowen.YES All sutures were removed by gently pulling the knot away from the skin and cutting the sutures as close to the skin as possible. YES Incision was inspected and cleaned with a sterile, antiseptic swab. YES Wound closure strips were applied to maintain contact between wound edges. YES Patient tolerated procedure well. YES Patient instructed on care of incision. YES Additional patient questions for provider: None Additional comments: None documented in this encounter Plan of Treatment Upcoming Encounters Date Type Department Care Team (Late st Contact Info) Description 02/13/2025 1:00 PM EDT Office Visit Radiation Oncology at [address] [phone] Eleonora Mensah MD [facility] [place] [address] Scheduled Referrals Name Type Priority Associated Diagnoses Orde r Schedule Referral to Physical Therapy Outpatient Referral Routine Ganglion cyst of flexor tendon sheath right long finger Ordered: 05/12/2022 documented as of this encounter Visit Diagnoses Diagnosis Ganglion cyst of flexor tendon sheath right long finger Ganglion of tendon sheath documented in this encounter Care Teams Swat Team Member Relationship Specialty Start Date End Date Charleen Williamson, [employer] [address] [place] [address] PCP - General Family Medicine 06/29/20 documented as of this encounter
--- OUTSIDE RECORDS SUMMARY | 2024-05-09 13:55 | XMS_ITS | Encounter Summary ---
[facility] Address [facility] [place] [address] Care Team Providers Care Independent Sales Representative Name Role Phone Charleen Williamson APRN Primary Care Provider +1 -[phone] Reason for Referral * Consultation (Routine) - Closed Specialty Diagnoses / Procedures Referred By Contac t Referred To Contact Obstetrics and Gynecology Diagnoses Encounter for preconception consultation Gali Shelby MD [facility] OBSTETRICS [place] [address] [facility] [place] [place] [address] Referral ID Status Reason Start Date Expiration Date V isits Requested Visits Authorized [id number] Closed Consult, Test & Treat 08/21/2023 08/20/2024 1 1 Encounter Details Date Type Department Care Team (Late st Contact Info) Description 08/21/2023 Orders Only Obstetrics [place] [address] Gali Shelby MD [facility] OBSTETRICS [place] [address] Encounter for preconception consultation Social History Tobacco Use Types Packs/Day Years [...] place to sleep or slept in a alf (including now)? No 04/23/2021 Sex and Gender Information Value Date Recorded Sex Assigned at Female 07/19/2020 8:39 AM EDT Gender Identity Female 08/04/2022 1:11 PM EDT Sexual Orientation Straight 08/04/2022 1: 11 PM EDT documented as of this encounter Plan of Treatment Upcoming Encounters Date Type Department Care Team (Late st Contact Info) Description 02/13/2025 1:00 PM EDT Office Visit Radiation Oncology at [address] [phone] Eleonora Mensah MD [facility] [place] [address] Scheduled Referrals Name Type Priority Associated Diagnoses Orde r Schedule Referral to Ob-Order Entry Clerk Outpatient Referral Routine Encounter for preconception consultation Ordered: 08/21/2023 documented as of this encounter Visit Diagnoses Diagnosis Encounter for preconception consultation documented in this encounter Care Teams Independent Sales Representative Relationship Specialty Start Date End Date Charleen Williamson APRN [address] [place] [address] PCP - General Family Medicine 06/29/20 documented as of this encounter
--- OUTSIDE RECORDS SUMMARY | 2024-05-09 13:55 | XMS_ITS | Encounter Summary ---
Author Organization [facility] Address [facility] [place] [address] Care Team Providers Care Cds Sales Advisor Name Role Phone Charleen Williamson APRN Primary Care Provider +1 -[phone] Encounter Details Date Type Department Care Team (Latest Contact Info) Description 08/27/2022 Travel Social History Tobacco Use Types Packs/Day [...] PM EDT Office Visit Radiation Oncology at [address] [phone] Eleonora Mensah MD [facility] [place] [address] documented as of this encounter Visit Diagnoses Not on filedocumented in this encounter Care Teams Cds Sales Advisor Relationship Specialty Start Date End Date Charleen Williamson APRN [address] [place] [address] PCP - General Family Medicine 06/29/20 documented as of this encounter
--- OUTSIDE RECORDS SUMMARY | 2024-05-09 13:55 | XMS_ITS | Encounter Summary ---
Author Organization [facility] [place] [address] Care Team Providers Care Bedspread Inspector Name Role Phone Charleen Williamson APRN Primary Care Provider +1 -[phone] Encounter Details Date Type Department Care Team (Late st Contact Info) Description 06/03/2023 Telephone Obstetrics [place] [address] George Interiano Social History Tobacco Use Types Packs/Day Years [...] PM EDT Office Visit Radiation Oncology at [address] [phone] Eleonora Mensah MD [facility] [place] [address] documented as of this encounter Visit Diagnoses Not on filedocumented in this encounter Care Teams Bedspread Inspector Relationship Specialty Start Date End Date Charleen Williamson APRN [address] [place] [address] PCP - General Family Medicine 06/29/20 documented as of this encounter
--- OUTSIDE RECORDS SUMMARY | 2024-05-09 13:55 | XMS_ITS | Encounter Summary ---
Author Organization [facility] Address [facility] [place] [address] Care Team Providers Care Event Technician Name Role Phone Charleen Williamson APRN Primary Care Provider +1 -[phone] Encounter Details Date Type Department Care Team (Latest Contact Info) Description 05/11/2022 Travel Social History Tobacco Use Types Packs/Day [...] PM EDT Office Visit Radiation Oncology at [address] [phone] Eleonora Mensah MD [facility] [place] [address] documented as of this encounter Visit Diagnoses Not on filedocumented in this encounter Care Teams Event Technician Relationship Specialty Start Date End Date Charleen Williamson APRN [address] [place] [address] PCP - General Family Medicine 06/29/20 documented as of this encounter
--- OUTSIDE RECORDS SUMMARY | 2024-05-09 13:55 | XMS_ITS | Encounter Summary ---
Author Organization [facility] Address [facility] [place] [address] Care Team Providers Care Job Placement Officer Name Role Phone Charleen Williamson APRN Primary Care Provider +1 -[phone] Encounter Details Date Type Department Care Team (Latest Contact Info) Description 06/17/2022 Travel Social History Tobacco Use Types Packs/Day [...] PM EDT Office Visit Radiation Oncology at [address] [phone] Eleonora Mensah MD [facility] [place] [address] documented as of this encounter Visit Diagnoses Not on filedocumented in this encounter Care Teams Job Placement Officer Relationship Specialty Start Date End Date Charleen Williamson APRN [address] [place] [address] PCP - General Family Medicine 06/29/20 documented as of this encounter
--- OUTSIDE RECORDS SUMMARY | 2024-05-09 13:55 | XMS_ITS | Encounter Summary ---
Author Organization [facility] [place] [address] Care Team Providers Care Chucker Name Role Phone Charleen Williamson APRN Primary Care Provider +1 -[phone] Reason for Visit * Reason Onset Date Comments Medication Refill 01/09/2023 Encounter Details Date Type Department Care Team (Late st Contact Info) Description 01/09/2023 Refill H[place]ology [place] [phone] Bernadine Velazquez PA Social History Tobacco Use Types Packs/Day Years [...] place to sleep or slept in a custodial (including now)? No 04/23/2021 Sex and Gender Information Value Date Recorded Sex Assigned at Female 07/19/2020 8:39 AM EDT Gender Identity Female 08/04/2022 1:11 PM EDT Sexual Orientation Straight 08/04/2022 1: 11 PM EDT documented as of this encounter Miscellaneous Notes * Telephone Encounter - Subha Holt RN - 01/13/2023 8:21 AM EDTSummary: Medication Refill Received request via [facility] [facility] for refill of Trazodone. Per review of medical record, refill appears to be appropriate. Patient requesting change of pharmacy Last prescribed 06/18/22 Script prepared and sent to provider for review, signature and escribe. documented in this encounter Plan of Treatment Upcoming Encounters Date Type Department Care Team (Late st Contact Info) Description 02/13/2025 1:00 PM EDT Office Visit Radiation Oncology at [address] [phone] Eleonora Mensah MD [facility] [place] [address] documented as of this encounter Visit Diagnoses Not on filedocumented in this encounter Care Teams Chucker Relationship Specialty Start Date End Date Charleen Williamson APRN [address] [place] [address] PCP - General Family Medicine 06/29/20 documented as of this encounter
--- OUTSIDE RECORDS SUMMARY | 2024-05-09 13:55 | XMS_ITS | Encounter Summary ---
Author Organization [facility] Address [facility] [place] [address] Care Team Providers Care Goat Herder Name Role Phone Charleen Williamson APRN Primary Care Provider +1 -[phone] Encounter Details Date Type Department Care Team (Latest Contact Info) Description 05/28/2023 Travel Social History Tobacco Use Types Packs/Day [...] PM EDT Office Visit Radiation Oncology at [address] [phone] Eleonora Mensah MD [facility] [place] [address] documented as of this encounter Visit Diagnoses Not on filedocumented in this encounter Care Teams Goat Herder Relationship Specialty Start Date End Date Charleen Williamson APRN [address] [place] [address] PCP - General Family Medicine 06/29/20 documented as of this encounter
--- OUTSIDE RECORDS SUMMARY | 2024-05-09 13:55 | XMS_ITS | Encounter Summary ---
Author Organization [facility] [place] [address] Care Team Providers Care Heating And Ventilating Tender Name Role Phone Charleen Williamson APRN Primary Care Provider +1 [phone] Reason for Visit * Physical Therapy (Routine) - Authorized Specialty Diagnoses / Procedures Referred By Contac t Referred To Contact Physical Therapy Diagnoses 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, estrogen receptor positive Medication management Lymphedema of arm Eleonora Saez PA [facility] [place] [place] [address] [facility] [place] [address] Referral ID Status Reason Start Date Expiration Date Visits Requested Visits Authorized [id number] Authorized Evaluate and Treat 05/28/2023 05/27/2024 35 35 Encounter Details Date Type Department Care Team (Late st Contact Info) Description 06/10/2023 8:00 AM EST Office [place] [address] Kathy Perez, PT [facility] PHYSICAL MEDICINE & [place] [address] Secondary lymphedema Social History Tobacco Use Types Packs/Day Years Used Date Smoking Tobacco: Never Smokeless Tobacco: Never Alcohol Use Standard Drinks/Week Comments Not Currently 0 (1 standard drink = 0.6 oz pur e alcohol) Overall Financial Resource Strain (CARDIA) Arpita r Recorded How hard is it for you [...] place to sleep or slept in a jail (including now)? No 04/23/2021 Sex and Gender Information Value Date Recorded Sex Assigned at Female 07/19/2020 8:39 AM EDT Gender Identity Female 08/04/2022 1:11 PM EDT Sexual Orientation Straight 08/04/2022 1: 11 PM EDT documented as of this encounter Miscellaneous Notes * Initial Evaluation - Kathy Perez, PT - 06/10/2023 8:00 AM EST UE LYMPHEDEMA INITIAL EXAMINATION Date of Exam/First treatment: 06/10/23 Date of Onset :OR 2020, xrt finished 06/03/21 Referring Provider: PAYTON Rios Diagnosis and pertinent co-morbidities: right upper extremity lymphedema Total Treatment time: 60 minutes Total Timed Code Treatment: 60 minutes eval and self chcf management CURRENT HISTORY: Alis Silva is a 32 y.o. 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 Randomized on [id number] to ax dissxn, removing 13 lymph nodes, all neg. Saw Abdno Covarrubiasjackie, PT, CLT here at post op in 2020 then followed up closer to home. Also sleeve and gove which she is not allowed to wear at work. She didn't bring with her today. Doesn't know Brand name or size . Referred to PT for fitting of night time garment. Patient Active Problem List Diagnosis Code Malignant neoplasm of right breast in female, estrogen receptor positive C50.911, Z17.0 Lymphedema of arm I89.0 Subcutaneous mass of finger of right hand R22.31 Ganglion cyst of flexor tendon sheath right long finger M67.40 Medication management Z79.899 Work History and personal factors affecting plan of care: , lives in [place], [place] with and 3 cats. 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 Current Exercise: none. Very active job PAIN: aching, throbbing when swollen - 4/10 FUNCTIONAL LIMITATIONS: On a difficulty scale with 0 being unable to perform an activity, and 10 being able to perform at a pre injury level At RISK FOR CELLULITIS CLINICAL FINDINGS: 1) observation, posture : right shoulder protracted and internally rotated. 2) ROM: N/T 3) strength: N/T 4) palpation/inspection : lymphedema right upper extremity - more in the the forearm, wrist, hand .No fibrosis. 5) UE circumferences (cm) Right 06/10/23 Left 06/10/23 Mcp s 19.8 19.5 palm 21.0 20.0 Wrist 18.5 17.5 -10 cm 26.2 22.0 Elbow 26.5 25.2 +10 cm 29.0 29.5 G 32.8 32.2 length 41 CLINICAL EVALUATION AND DIAGNOSIS: 32 yo female with h/o right breast cancer, IDC, 0/13 LNP s/p neoadjuvant and xrt now with secondary lymphedema right upper extremity. Pt has a compression sleeve and glove but is not allowed to wear it at work because of the need to frequently wash her hands. She would likely benefit from Night time garment and Probably a pump to help reduce her welling as much as possible, prevent fibrosis and decrease risk of cellulitis and improve quality of life. Clinical presentation: Stable Evolving Unstable x Notes: Today Eval Pt education Looked at night time garments. Pt liked the [employer] Relax which I think is an excellent choice. Looked at pumps. Will schedule trial for hopefully June. Encouraged patient to wear her compression sleeve and glove as much as possible when not at work (except not at night). Clinical decision making of moderate complexity using standardized patient assessment instrument and measurable assessment of functional outcome. The patient's rehabilitation potential is good GOALS: Therapy Short Term Goals 4 weeks 1. Obtain well fitting night time compression garments. 2. independent in self care. 3. Pump trial Therapy Manager English Goals 8 weeks 1. maintain reduction in swelling. 2> reduced swelling INITIAL TREATMENT INCLUDED: eval, self care/home management PLAN: Frequency and duration: FU in June for pump trial and at fit and effectiveness of night time garment. Treatment: manual lymphatic drainage compression bandaging exercise teaching self care garment fitting The plan has been discussed with the patient and she has agreed with plan. KATHY PEREZ, PT documented in this encounter Plan of Treatment Upcoming Encounters Date Type Department Care Team (Late st Contact Info) Description 02/13/2025 1:00 PM EDT Office Visit Radiation Oncology at [address] [phone] Eleonora Mensah MD [facility] [place] [address] Scheduled Referrals Name Type Priority Associated Diagnoses Orde r Schedule Referral to PT/OT for Lymphedema Outpatient Referral Routine 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, estrogen receptor positive Medication management Lymphedema of arm Ordered: 05/28/2023 documented as of this encounter Visit Diagnoses Diagnosis Secondary lymphedema Other lymphedema documented in this encounter Care Teams Heating And Ventilating Tender Relationship Specialty Start Date End Date Charleen Williamson APRN [address] [place] [address] PCP - General Family Medicine 06/29/20 documented as of this encounter
--- OUTSIDE RECORDS SUMMARY | 2024-05-09 13:55 | XMS_ITS | Encounter Summary ---
[place] [address] Care Team Providers Care Ranch Hand Supervisor Name Role Phone Charleen Williamson APRN Primary Care Provider [phone] [phone] Reason for Visit * Auth/Cert (Routine) Specialty Diagnoses / Procedures Referred By Fawn weston Referred To Contact Diagnoses mucous cyst Procedures PRO EXCISION LESION TENDON SHEATH OR JT CAPSULE, HAND OR FINGER EXCISION LESION TENDON SHEATH OR JOINT CAPSULE, HAND OR FINGER (WRVU 3.57) Yoshi Abbasi MD [facility] [place] [address] [facility] Referral ID Status Reason Start Date Expiration Date Visits Re quested Visits Authorized [id number] 1 1 Encounter Details Date Type Department Care Team (Late st Contact Info) Description 04/29/2022 11:11 AM EST Anesthesia Event [place] [address] Guy Dodge MD [facility] [place] [address] Tommy Colon MD [facility] [place] [address] Anesthesia Record Procedure Summary Procedure Name Responsible Anesthesiologist Anesthesia Start Time Anesthesia Stop Time EXCISION LESION TENDON SHEATH OR JOINT CAPSULE, HAND OR FINGER (WRVU 3.57) (Right: Hand) Guy Dodge MD 04/29/22 1111 04/29/22 1201 Events Date Time Event Comment 04/29/2022 0952 1108 AN Verify 1111 Start 1111 An Start Data 1115 An Induction 1118 An Intubation 1122 Anesthesia Ready 1152 Extubation/LMA Out 1152 an stop data 1201 Recovery or ICU Handoff Genie ent care was transferred to the destination unit staff after review of the patient's medical history, current anesthetic/surgical status and plan, according to the Provider Handoff Checklist. 1201 Stop Meds Name Total Propofol 200 mg Propofol INF 128.7 mg fentaNYL 50 mcg Midazolam 2 mg Dexamethasone 8 mg Ondansetron 8 mg ePHEDrine 10 mg ceFAZolin 2 g Dexmedetomidine 8 mcg Lactated Ringers 0 mL * Agents Name O2 Air N2O Sevoflurane (et) * Blood No blood administrations on file. Lines, Drains, and Airways Type Details Placement Removal Incision lower, Right; breast ; horizontal 01/03/21 1328 by Incision 02/13/22; 1429; Left , upper; chest; horizontal, non-laparascopic puncture; former mediport pocket 02/13/22 1429 by Lora Shahid, RN Incision 04/29/22; 1130; Right; palm 04/29/22 1130 by Dalila Cornejo, DENISE (RETIRED) Peripheral IV Line - Single Lumen 04/29/22; 1050; basilic vein (medial side of arm), left; wnlj-vjb-iuimit catheter system; Anatomical Landmarks; 20 gauge; Marques; 04/29/22; 1305 04/29/22 1050 by Aleyda Lewis RN 04/29/22 1305 by Blanca Knapp RN Supraglottic Mask Ventilation: Easy (1); LMA Type: iGel; LMA Size: 3; Inserted by: lux mccabe; Removal Date: 04/29/22; Removal Time: 1152 04/29/22 1123 by Jennifer Hood CRNA 04/29/22 1152 by Jennifer Hood CRNA documented in this encounter Social History Tobacco Use Types Packs/Day Years [...] PM EDT documented as of this encounter OR Notes * Anesthesia Postprocedure Evaluation - Guy Dodge MD - 04/29/2022 2:18 PM EST Department of Anesthesiology Post-procedure Note Patient: Alis Silva Procedure Summary Date: 04/29/22 Room / Location: [facility] OR [address] [place] [address] OSC Anesthesia Start: 1111 Anesthesia Stop: 1201 Procedure: EXCISION LESION TENDON SHEATH OR JOINT CAPSULE, HAND OR FINGER (WRVU 3.57) (Right: Hand)Diagnosis: Subcutaneous mass of finger of right hand (mucous cyst) Surgeons: Yoshi Abbasi MD Responsible Provider: Guy Dodge MD Anesthesia Type: general ASA Status: 2 All Anesthesia Providers: Anesthesiologist: Guy Dodge MD FRAMING MECHANIC: Jennifer Hood CRNA Vitals Value Taken Time BP 115/75 04/29/22 1245 Temp 36.3 ??C (97.3 ??F) 04/29/22 1153 Pulse 64 04/29/22 1246 Resp 16 04/29/22 1245 SpO2 100 % 04/29/22 1246 Pain Level 0 04/29/22 1245 Vitals shown include unvalidated device data. Patient Location: PACU/[facility] Level of Consciousness: Awake and Alert Pain Management: Satisfactory Analgesia PONV: None Cardiovascular Status: At Baseline and Hemodynamically Stable Respiratory Status: At Baseline and Room Air Postoperative Fluid Status: Intravascular EUvolemia Possible Anesthetic Complications: NONE apparent at time of evaluation Final Primary Anesthesia Type: General (The anesthetic type performed was the same as planned.) Comments: Guy Dodge MD * Anesthesia Preprocedure Evaluation - Guy Dodge MD - 04/29/2022 9:51 AM EST Pre-Anesthesia Evaluation for: Alis Silva a 31 y.o. female. Procedure(s): EXCISION LESION TENDON SHEATH OR JOINT CAPSULE, HAND OR FINGER (VU 3.57) Patient Active Problem List Diagnosis Date Noted ??? Ganglion cyst of flexor tendon sheath right long finger 02/20/2022 ??? Subcutaneous mass of finger of right hand 01/24/2022 ??? Lymphedema of arm 09/30/2021 ??? Malignant neoplasm of right breast in female, estrogen receptor positive 07/04/2020 History reviewed. No pertinent past medical history. Past Surgical History: Procedure Laterality Date ??? IR MEDIPORT PLACEMENT 07/23/2020 IR Mediport Placement [facility] INTERVENTIONL RAD ??? IR MEDIPORT REMOVAL 02/13/2022 IR Mediport Removal 02/13/2022 Sean Green PA [facility] INTERVENTIONL RAD ??? MAMMO US BIOPSY LYMPH NODE RIGHT Right 06/29/2020 Mammo US Biopsy Lymph Node Right 06/29/2020 Danni Osuna MD [facility] RAD MAMMOGRAPHY ??? MAMMO US BIOPSY RIGHT Right 06/29/2020 Mammo Us Biopsy Right 06/29/2020 Danni Osuna MD [facility] RAD MAMMOGRAPHY ??? MAMMO US NEEDLE LOCALIZATION RIGHT Right 01/03/2021 Mammo US Needle Localization Right 01/03/2021 Mili Burgos MD [facility] RAD MAMMOGRAPHY ??? MRI GUIDED BIOPSY BREAST VACUUM ASSISTED LEFT Left 07/18/2020 MRI Guided Biopsy Breast Vacuum Assisted Left 07/18/2020 [facility] RAD MRI ??? PRO BX/REMV, LYMPH NODE, DEEP AXILL Right 01/03/2021 BIOPSY OR EXCISION OF LYMPH NODE(S), OPEN, DEEP AXILLARY NODE(S) (WRVU 6.43) performed by Eulalio Hunt MD at [facility] MAIN OR ??? PRO EXCISE BREAST LES W XRAY MARKER Right 01/03/2021 EXCISION LESION, BREAST W/ PREOP.MARKER (NEEDLE LOC.) (WRVU 6.69) performed by Eulalio Hunt MDat [facility] MAIN OR ??? PRO INTRAOP SENTINEL LYMPH ID W/DYE INJECTION Right 01/03/2021 INTRAOPERATIVE ID (MAPPING) SENTINEL LYMPH NODE,INCLUDES INJECTION (WRVU 2.5) performed by Eulalio Hunt MD at [facility] MAIN OR ??? PRO MASTECTOMY, SIMPLE, COMPLETE Right 01/03/2021 MASTECTOMY, SIMPLE, COMPLETE (WRVU 15.85) performed by Eulalio Hunt MD at [facility] MAIN OR ??? PRO REMOVE ARMPITS LYMPH NODES COMPLT Right 01/28/2021 LYMPHADENECTOMY, AXILLARY, COMPLETE (WRVU 13.87) performed by Eulalio Hunt MD at [facility] OSC Social History Tobacco Use ??? Smoking status: Never ??? Smokeless tobacco: Never Substance Use Topics ??? Alcohol use: Not Currently Social History Substance and Sexual Activity Drug Use Never Allergies Allergen Reactions ??? Tegaderm [Transparent Dressings] Use alcohol and betadine, no biopatch. USE DUODERM Medications: MAR and/or home medications have been reviewed. Physical Exam: Preprocedure Vitals Current as of 04/29/22 0951 BP: 110/78 Pulse: 65 Resp: 20 SpO2: 95 Temp: 37 ??C (98.6 ??F) Height: 175.3 cm (5' 9) (04/29/22) Weight: 78 kg (172 lb) (04/29/22) BMI: 25.4 IBW: 66.2 kg (146 lb 0.4 oz) Last edited 04/29/22 0948 by MV Airway Assessment: Mallampati: II TM distance: >3 FB Neck ROM: full Cardiovascular Assessment: system normal Pulmonary Assessment: pulmonary exam normal Dental Assessment: Misc Assessment: Last Filed Perioperative Cognitive Screening None Anesthesia Plan: ASA 2 general, with a(n) intravenous induction 31yo female presenting for right hand finger surgery Hx of ponv, no other prior anesthetic problems Appropriately npo Plan for GA LMA Region - Other Informed Consent: Anesthetic plan and risks discussed with patient. Plan discussed with FRAMING MECHANIC. Anesthesia Screening documented in this encounter Plan of Treatment Upcoming Encounters Date Type Department Care Team (Late st Contact Info) Description 02/13/2025 1:00 PM EDT Office Visit Radiation Oncology at [address] [phone] Eleonora Mensah MD [facility] [place] [address] documented as of this encounter Visit Diagnoses Not on filedocumented in this encounter Administered Medications Inactive Administered Medications - up to 3 most recent administrations Medication Order MAR Action Action Date Dose Rate Site ceFAZolin (Ancef) 1 g in dextrose 5% 50 mL infusion Intravenous, PRN, Starting on Thu04/29/22 at 1125, Until Thu04/29/22 at 1201, Administer over 30 Minutes, Anesthesia Intra-op Given 04/29/2022 11:25 AM EST 2 g dexAMETHasone (Decadron) injection Intravenous, PRN, Starting on Thu04/29/22 at 1125, Until Thu04/29/22 at 1201, Anesthesia Intra-op, Routine Given 04/29/2022 11:25 AM EST 8 mg dexmedeTOMIDine (Precedex) (4 mcg/mL) bolus injection (Anesthsia) Intravenous, PRN, Starting on Thu04/29/22 at 1115, Until Thu04/29/22 at 1201, Anesthesia Intra-op, Routine Given 04/29/2022 11:15 AM EST 8 mcg ePHEDrine sulfate (5 mg/mL) multi-dose injection Intravenous, PRN, Starting on Thu04/29/22 at 1130, Until Thu04/29/22 at 1201, Anesthesia Intra-op, Routine Given 04/29/2022 11:30 AM EST 10 mg fentaNYL (pf) (50 mcg/mL) multi-dose injection Intravenous, PRN, Starting on Thu04/29/22 at 1117, Until Thu04/29/22 at 1201, Anesthesia Intra-op, Routine Given 04/29/2022 11:17 AM EST 50 mcg lactated ringers infusion Intravenous, CONTINUOUS PRN, Starting on Thu04/29/22 at 1108, Until Thu04/29/22 at 1201, Anesthesia Intra-op New Bag 04/29/2022 11:08 AM EST midazolam (pf) (Versed) (1 mg/mL) multi-dose injection Intravenous, PRN, Starting on Thu04/29/22 at 1108, Until Thu04/29/22 at 1201, Anesthesia Intra-op, Routine Given 04/29/2022 11:08 AM EST 2 mg ondansetron (pf) (Zofran) (2 mg/mL) injection Intravenous, PRN, Starting on Thu04/29/22 at 1125, Until Thu04/29/22 at 1201, Anesthesia Intra-op, Routine Given 04/29/2022 11:41 AM EST 4 mg Given 04/29/2022 11:25 AM EST 4 mg propofoL (Diprivan) (10 mg/mL) infusion Intravenous, CONTINUOUS PRN, Starting on Thu04/29/22 at 1115, Until Thu04/29/22 at 1201, Anesthesia Intra-op, Routine New Bag 04/29/2022 11:15 AM EST 50 mcg/kg/min 23.4 mL/hr propofoL (Diprivan) 10 mg/mL bolus injection (Anesthesia) Intravenous, PRN, Starting on Thu04/29/22 at 1115, Until Thu04/29/22 at 1201, Anesthesia Intra-op Given 04/29/2022 11:15 AM EST 200 mg documented in this encounter Care Teams Ranch Hand Supervisor Relationship Specialty Start Date End Date Charleen Williamson APRN [address] [place] [address] PCP - General Family Medicine 06/29/20 documented as of this encounter
--- OUTSIDE RECORDS SUMMARY | 2024-05-09 13:55 | XMS_ITS | Encounter Summary ---
Author Organization [facility] Address [facility] [place] [address] Care Team Providers Care Self Rising Flour Mixer Name Role Phone Charleen Williamson APRN Primary Care Provider [phone] [phone] Reason for Visit * Reason Comments Follow-up Encounter Details Date Type Department Care Team (Late st Contact Info) Description 02/10/2023 10:00 AM EDT Office Visit Radiation Oncology at [address] [phone] Eleonora Mensah MD [facility] [place] [address] S/P radiotherapy Social History Tobacco Use Types [...] Sign Reading Time Taken Comments Blood Pressure 110/70 02/10/2023 10:06 AM EDT Pulse 85 02/10/2023 10:06 AM EDT Temperature 36.8 ??C (98.2 ??F) 02/10/2023 10:06 AM E DT Respiratory Rate 18 02/10/2023 10:06 AM EDT Oxygen Saturation 98% 02/10/2023 10:06 AM EDT Inhaled Oxygen Concentration - - Weight 75.8 kg (167 lb) 02/10/2023 10:06 AM EDT Height 176 cm (5' 9.29) 02/10/2023 10:06 AM EDT Body Mass Index 24.45 02/10/2023 10:06 AM EDT documented in this encounter Patient Instructions * Patient Instructions* Eleonora Mensah MD - 02/10/2023 10:00 AM EDT Your exam is without worrisome finding. Someone will contact you to schedule followup in 1 year. documented in this encounter Progress Notes * Eleonora Mensah MD - 02/10/2023 10:00 AM EDT Images from the original note were not included. CC: Scheduled followup s/p xrt completion. HPI: Alis is a 32 y/o f who completed xrt 1 yr., 8 mos ago (06/03/21) for breast ca, R, invasive caw/ductal & lobular features, gr 2, ER+NV+, Her2+, cT3 cN1, s/p neoadjuvant TCHP, followed by R mastectomy w/NLOC excision clipped R axillary lymph node, unsuccessful SNB, ypT1b(m) ypN1mi, +LVI. Randomized on [id number] to ax dissxn, removing 13 lymph nodes, [...] Dr. Hunt, rtc 1 yr w/L mmg. S: Lymphedema fluctuates w/activity; usually less w/increased activity. Seen by PT who advised PT appts 3 X/wk but Alis doesn't have enough time in day w/work schedule to allow 3 PT appts/wk. 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 Has a lymphedema sleeve but not allowed to wear it @ work. No new swelling/pain. History reviewed. No pertinent past medical history. No lupus/scleroderma. Past Surgical History: Procedure Laterality Date IR MEDIPORT PLACEMENT 07/23/2020 IR Mediport Placement [facility] INTERVENTIONL RAD IR MEDIPORT REMOVAL 02/13/2022 IR Mediport Removal 02/13/2022 Sena Green PA [facility] INTERVENTIONL RAD MAMMO US BIOPSY LYMPH NODE RIGHT Right 06/29/2020 Mammo US Biopsy Lymph Node Right 06/29/2020 Danni Osuna MD [facility] RAD MAMMOGRAPHY MAMMO US BIOPSY RIGHT Right 06/29/2020 Mammo Us Biopsy Right 06/29/2020 Danni Osuna MD [facility] RAD MAMMOGRAPHY MAMMO US NEEDLE LOCALIZATION RIGHT Right 01/03/2021 Mammo US Needle Localization Right 01/03/2021 Mili Burgos MD [facility] RAD MAMMOGRAPHY MRI GUIDED BIOPSY BREAST VACUUM ASSISTED LEFT Left 07/18/2020 MRI Guided Biopsy Breast Vacuum Assisted Left 07/18/2020 [facility] RAD MRI PRO BX/REMV, LYMPH NODE, DEEP AXILL Right 01/03/2021 BIOPSY OR EXCISION OF LYMPH NODE(S), OPEN, DEEP AXILLARY NODE(S) (WRVU 6.43) performed by Eulalio Hunt MD at [facility] MAIN OR PRO EXCISE BREAST LES W XRAY MARKER Right 01/03/2021 EXCISION LESION, BREAST W/ PREOP.MARKER (NEEDLE LOC.) (WRVU 6.69) performed by Eulalio Hunt, MDat [facility] MAIN OR PRO EXCISION LESION TENDON SHEATH OR JT CAPSULE, HAND OR FINGER Right 04/29/2022 EXCISION LESION TENDON SHEATH OR JOINT CAPSULE, HAND OR FINGER (WRVU 3.57) performed by Yoshi Abbasi MD at [facility] OSC PRO INTRAOP SENTINEL LYMPH ID W/DYE INJECTION Right 01/03/2021 INTRAOPERATIVE ID (MAPPING) SENTINEL LYMPH NODE,INCLUDES INJECTION (WRVU 2.5) performed by Eulalio Hunt MD at [facility] MAIN OR PRO MASTECTOMY, SIMPLE, COMPLETE Right 01/03/2021 MASTECTOMY, SIMPLE, COMPLETE (WRVU 15.85) performed by Eulalio Hunt MD at [facility] MAIN OR PRO REMOVE ARMPITS LYMPH NODES COMPLT Right 01/28/2021 LYMPHADENECTOMY, AXILLARY, COMPLETE (WRVU 13.87) performed by Eulalio Hunt MD at [facility] OSC Oral surgery Your Medications Accurate as of February 10, 2023 10:21 AM. If you have any questions, ask your nurse or doctor. Continued medications, unchanged Dose Details acetaminophen 500 mg tablet Commonly known as: Tylenol Take 2 tablets by mouth every 6 hours. 1,000 mg Quantity: 30 tablet Refills: 1 B Complex-Folic Acid 0.4 mg Tablet Take 1 tablet by mouth nightly. 1 tablet Refills: 0 diclofenac 1 % Gel Commonly known as: Voltaren Apply 2 g to each affected area up to 4 times daily; maximum dose per joint: 8 g/day; maximum totalbody dose (all combined joints): 32 g/day. Quantity: 200 g Refills: 0 hydrOXYzine 10 mg tablet Commonly known as: Atarax TAKE 1 TO 2 TABLETS BY MOUTH EVERY 8 HOURS NEEDED FOR ANXIETY Refills: 0 lactobacillus rhamnosus (GG) 10 billion cell Capsule Commonly known as: CULTURELLE Take 1 capsule by mouth daily. 1 capsule Refills: 0 lidocaine 2 % jelly Commonly known as: Xylocaine Apply topically to anal fissure as needed for pain relief. Do not use more than 30 mL in a 24-hr period. Quantity: 30 mL Refills: 2 magnesium oxide 400 mg (241.3 mg magnesium) Tablet Commonly known as: Mag-Ox Take by mouth 2 times daily. Refills: 0 melatonin 5 mg tablet Take by mouth nightly. Refills: 0 meloxicam 7.5 mg tablet Commonly known as: Mobic TAKE 1 TABLET BY MOUTH DAILY. MAY INCREASE TO 2 TABLETS DAILY NEEDED Quantity: 60 tablet Refills: 5 NAC 600 mg Tablet Take 600 mg by mouth 2 times daily. Generic drug: acetylcysteine 600 mg Refills: [address] capsule Commonly known as: PriLOSEC Take 40 mg by mouth daily. 40 mg Refills: 0 ondansetron ODT 4 mg disintegrating tablet Commonly known as: Zofran-ODT Take 4 mg by mouth as needed. 4 mg Refills: 0 propranoloL 20 mg tablet Commonly known as: Inderal Take 20 mg by mouth 2 times daily. 20 mg Refills: 0 SERTRALINE ORAL Take 100 mg by mouth 2 times daily. 100 mg Refills: 0 tamoxifen 20 mg tablet Commonly known as: Nolvadex Take 1 tablet by mouth daily. 20 mg Quantity: 90 tablet Refills: 3 traZODone 50 mg tablet Commonly known as: Desyrel Take 3 tablets by mouth nightly. 150 mg Quantity: 90 tablet Refills: 3 Physical Exam Constitutional: General: She is not in acute distress. Comments: BP 110/70 (Patient Position: Sitting) Pulse 85 Temp 36.8 ??C (98.2 ??F) (Temporal) Resp 18 Ht 176 cm (5' 9.29) Wt 75.8 kg (167 lb) SpO2 98% BMI 24.45 kg/m?? HENT: Head: Normocephalic. Eyes: General: No [...] dorsal R hand. P: Rtc 1 yr. 15 mins encounter. documented in this encounter Plan of Treatment Upcoming Encounters Date Type Department Care Team (Late st Contact Info) Description 02/13/2025 1:00 PM EDT Office Visit Radiation Oncology at [address] [phone] Eelonora Mensah MD [facility] [place] [address] documented as of this encounter Visit Diagnoses Diagnosis S/P radiotherapy Convalescence following radiotherapy documented in this encounter Care Teams Self Rising Flour Mixer Relationship Specialty Start Date End Date Charleen Williamson APRN [address] [place] [address] PCP - General Family Medicine 06/29/20 documented as of this encounter
--- OUTSIDE RECORDS SUMMARY | 2024-05-09 13:55 | XMS_ITS | Encounter Summary ---
Author Organization [facility] [place] [address] Care Team Providers Care Hop Separator Name Role Phone Charleen Williamson APRN Primary Care Provider [phone] Encounter Details Date Type Department Care Team (Latest Contact Info) Description 08/28/2022 9:41 AM EDT - 08/28/2022 11:59 PM EDT Hospital Encounter Mammography/[place] [address] Malignant 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, estrogen receptor positive Discharge Disposition: Home Social History Tobacco Use [...] place to sleep or slept in a fci (including now)? No 04/23/2021 Sex and Gender [...] EDT Office Visit Radiation Oncology at [address] [phone] Eleonora Mensah MD [facility] [place] [address] documented as of this encounter Procedures Procedure Name Priority Date/Time Associated Diagnosis Comments MAMMO SCREENING CAD AND PADMAJA LEFT Routine 08/28/2022 9:54 AM EDT Malignant 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, estrogen receptor positive documented in this encounter Results * Mammo Screening Cad and Padmaja Left (08/28/2022 9:54 AM EDT) Anatomical Region Laterality Modality Breast Left Mammography Narrative 08/28/2022 4:45 PM EDT EXAMINATION: Unilateral left breast mammogram CLINICAL HISTORY: Personal history of breast cancer. Status post right mastectomy. Technique: CC and MLO views were obtained of the left breast using standard 2-D mammography as well as 3-D tomosynthesis. Computer aided detection was used. Comparison: This is compared with prior images. Findings: The breasts are heterogeneously dense, which may obscure small masses. There are no suspicious microcalcifications, masses, or areas of distortion. The pattern is stable. Conclusion: No mammographic evidence of malignancy. Recommendation: Routine annual screening mammography is recommended for women age 40 and above. Additional studies may be recommended for women with higher than average risk for breast cancer. Given patient's age, personal history of breast cancer, and breast density, recommend high risk screening MRI. BI-RADS Category 1: Negative Thank you for letting us participate in the care of this patient. ??If you are a health care provider and have any questions regarding this report, please contact the number below. ??For patients who have questions please contact the health career services manager that requested your imaging first. ? Eulalio Hunt MD IMG MAMMO ORDERABLES documented in this encounter Visit Diagnoses Diagnosis Malignant 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, estrogen receptor positive documented in this encounter Care Teams Hop Separator Relationship Specialty Start Date End Date Charleen Williamson APRN [address] [place] [address] PCP - General Family Medicine 06/29/20 documented as of this encounter
--- OUTSIDE RECORDS SUMMARY | 2024-05-09 13:55 | XMS_ITS | Encounter Summary ---
Author Organization [facility] Address [facility] [place] [address] Care Team Providers Care Shoe Cobbler Name Role Phone Charleen Williamson APRN Primary Care Provider [phone] Reason for Visit * Reason Comments Medication Refill Encounter Details Date Type Department Care Team (Late st Contact Info) Description 05/29/2022 Refill [place] [phone] Tyra Cornejo MD [facility] [address] [place] [address] Social History Tobacco Use Types Packs/Day Years [...] Telephone Encounter - Subha Holt RN - 05/29/2022 9:38 AM EST Received request via [employer] for refill of Tamoxifen. Per review of medical record- Started May 2021. Per review of medical record, refill appears to be appropriate. Last prescribed 06/12/21 Script prepared and sent to provider for review, signature and escribe. documented in this encounter Plan of Treatment Upcoming Encounters Date Type Department Care Team (Late st Contact Info) Description 02/13/2025 1:00 PM EDT Office Visit Radiation Oncology at [address] [phone] Eleonora Mensah MD [facility] [place] [address] documented as of this encounter Visit Diagnoses Not on filedocumented in this encounter Care Teams Shoe Cobbler Relationship Specialty Start Date End Date Charleen Williamson APRN [address] [place] [address] PCP - General Family Medicine 06/29/20 documented as of this encounter
--- OUTSIDE RECORDS SUMMARY | 2024-05-09 13:55 | XMS_ITS | Encounter Summary ---
Author Organization [facility]ly [facility] Address [facility] [place] [address] Care Team Providers Care Senior Principal Process Engineer Name Role Phone Charleen Williamson APRN Primary Care Provider [phone] Reason for Visit * Reason Comments Follow-up Encounter Details Date Type Department Care Team (Late st Contact Info) Description 08/28/2022 11:15 AM EDT Office [place] [address] Eulalio Hunt MD [facility] [place] [address] Malignant neoplasm of central portion of right [...] place to sleep or slept in a assisted (including now)? No 04/23/2021 Sex and Gender [...] - Inhaled Oxygen Concentration - - Weight 73.7 kg (162 lb 6.4 oz) 08/28/2022 11:06 AM EDT Height - - Body Mass Index 24.05 06/18/2022 1:54 PM EST documented in this encounter Progress Notes * Eulalio Hunt MD - 08/28/2022 11:15 AM EDT Alis Silva is a 31-year-old woman who returns after neoadjuvant chemotherapy for [...] breast mass showed invasive carcinoma, ER positive, AK positive and HER-2 positive. MRI showed a 6 x 4 cm mass that involved the nipple. She had a metastatic work- up CT and bone scan showed no distant metastases. 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 She was considered to not have inflammatory [...] seen. She randomized on the alliance trial [id number] to the axillary dissection arm. Therefore on 01/28/2021I did a right axillary dissection. 0 of 13 nodes were positive. She was treated with adjuvant XRT in May 2021 was on TDM-1 because she did not achieve a CR with neoadjuvant chemo. She is now on POSADA. Tyra Cornejo is her medical oncologist. 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 She now returns for a check. She has not josé miguel any chest wall or breast masses. On physical exam there are no right chest wall masses. No right axillary adenopathy. ROM right arm:abducts to about 150 degrees. Moderate right arm and hand edema. No left breast masses, no left axillary adenopathy. Left mammo from today looks benign to my eye. Impression: No evidence of local recurrence or left breast new primary cancer. Onset of right arm edema soon after XRT, which she is managing. Plan:I will see her back in 1 year with a left mammo (f/u required for [place] trial) documented in this encounter Plan of Treatment Upcoming Encounters Date Type Department Care Team (Late st Contact Info) Description 02/13/2025 1:00 PM EDT Office Visit Radiation Oncology at [address] [phone] Eleonora Mensah MD [facility] [place] [address] documented as of this encounter Results * Mammo Screening Cad and Vijay Left (08/31/2023 9:07 AM EDT) Anatomical Region Laterality Modality Breast Left Mammography Narrative 08/31/2023 9:39 AM EDT LEFT BREAST MAMMOGRAPHY REASON FOR EXAM: Screening ??History of breast cancer TECHNIQUE: CC and MLO views were obtained of the left breast using standard 2-D mammography as well as 3-D tomosynthesis. Computer aided detection was used. This is compared with prior images. FINDINGS: The breast is extremely dense, which lowers the sensitivity of mammography. There are no suspicious microcalcifications, masses, or areas of distortion. The pattern is stable. CONCLUSION: No mammographic evidence of malignancy. IN VIEW OF HER RISK FACTORS AND BREAST DENSITY, BREAST MRI SCREENING SHOULD BE CONSIDERED IN ADDITION TO MAMMOGRAPHY. RECOMMENDATION: Regular screening mammograms starting at age 40 reduces the risk of from breast cancer. Yearly screening provides the most benefit. Women should discuss with their provider their preferred breast cancer screening schedule. Women should report any breast changes to a health care provider right away. Some women, because of their family history, a genetic tendency, or other factors, should be screened with annual breast MRI as well as with mammograms. A result letter has been sent to this patient by the [facility]. BIRADS CATEGORY 1: NEGATIVE Electronically signed by: ??DOUGLAS WILLIS MD Eulalio Hunt MD IMG MAMMO ORDERABLES documented in this encounter Visit Diagnoses Diagnosis Malignant 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, estrogen receptor positive Malignant 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, estrogen receptor positive documented in this encounter Care Teams Senior Principal Process Engineer Relationship Specialty Start Date End Date Charleen Williamson, IVY [address] [place] [address] PCP - General Family Medicine 06/29/20 documented as of this encounter
--- OUTSIDE RECORDS SUMMARY | 2024-05-09 13:55 | XMS_ITS | Encounter Summary ---
Author Organization [facility] Address [facility] [address] Care Team Providers Care Tool Maker Name Role Phone Charleen Williamson APRN Primary Care Provider [phone] Encounter Details Date Type Department Care Team (Latest Contact Info) Description 08/31/2023 8:57 AM EDT - 08/31/2023 11:59 PM EDT Hospital Encounter Mammography/[place] [address] Eulalio Hunt MD [facility] [place] [address] Malignant neoplasm of central portion of right [...] FOR ANXIETY 07/09/2020 tamoxifen (Nolvadex) 20 mg tabletIndications:Malderek nant neoplasm of overlapping sites of right [...] PM EDT Office Visit Radiation Oncology at [address] [phone] Eleonora Mensah MD [facility] [place] [address] documented as of this encounter Procedures Procedure Name Priority Date/Time Associated Diagnosis Comments MAMMO SCREENING CAD AND PADMAJA LEFT Routine 08/31/2023 9:07 AM EDT Malignant 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, estrogen receptor positive documented in this encounter Results * Mammo Screening Cad and Padmaja Left (08/31/2023 9:07 AM EDT) Anatomical Region [...] positive documented in this encounter Care Teams Tool Maker Relationship Specialty Start Date End Date Charleen Williamson APRN [address] [place] [address] PCP - General Family Medicine 06/29/20 documented as of this encounter
--- OUTSIDE RECORDS SUMMARY | 2024-05-09 13:55 | XMS_ITS | Encounter Summary ---
[place] [address] Care Team Providers Care Munitions Handler Name Role Phone Charleen Williamson APRN Primary Care Provider [phone] Reason for Visit * Reason Onset Date Comments Other 06/12/2023 Order for lymphe brittany garment Encounter Details Date Type Department Care Team (Late st Contact Info) Description 06/12/2023 Telephone [place]ology [place] [address] Subha Holt, RN Other (Order for lymphedema garment) Social History Tobacco Use Types Packs/Day Years [...] Telephone Encounter - Subha Holt RN - 06/12/2023 8:31 AM ESTSummary: garment order From: Dalila Perez PT Sent: 06/12/2023 8:06 AM EST To: PAYTON Rios; [facility] [place] [facility] Nurse Subject: orders for night time compression garment Thank you for the referral to see Alis for fitting with night time sleeve for her lymphedema. If someone could enter an order in the chart for same that would be great. 1) [employer] custom night time garment CCL1 FYI - I also recommended a pump. More to follow on that. Dalila Perez PT, CLT Order for compression garment written and pended to provider for review and signature if in agreement. Msg to Dalila that order has been signed. documented in this encounter Plan of Treatment Upcoming Encounters Date Type Department Care Team (Late st Contact Info) Description 02/13/2025 1:00 PM EDT Office Visit Radiation Oncology at [address] [phone] Eleonora Mensah MD [facility] [place] [address] documented as of this encounter Visit Diagnoses Diagnosis HER2-positive carcinoma of breast Chronic acquired lymphedema Other lymphedema documented in this encounter Care Teams Munitions Handler Relationship Specialty Start Date End Date Charleen Williamson APRN [address] [place] [address] PCP - General Family Medicine 06/29/20 documented as of this encounter
--- OUTSIDE RECORDS SUMMARY | 2024-05-09 13:56 | XMS_ITS | Encounter Summary ---
Author Organization [facility] Address [facility] [place] [address] Care Team Providers Care Commission Sales Associate Name Role Phone Charleen Williamson APRN Primary Care Provider [phone] Encounter Details Date Type Department Care Team (Latest Contact Info) Description 03/17/2022 1:30 PM EST TH Visit (TeleHealth) Psychiatry [place] [id number] Dafne Dykes, PhD [facility] [place] [address] Cognitive decline; Depression, unspecified depression type; Malignant neoplasm of central portion of right [...] as of this encounter Progress Notes * Dafne Dykes, PhD - 03/17/2022 1:30 PM EST NEUROPSYCHOLOGICAL CONSULTATION Patient's Name: Alis Silva A#: [id number] Date of Evaluation: 03/10, Age: 31 years Date of : 1990 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 Silva was referred for neuropsychological evaluation in view of her history of cognitive concerns in a context of breast cancer. Background information was obtained from an interview with the patient and from a review of medical records. History of the Present Illness: Ms. Silva has a history of locally advanced right breast cancer diagnosed 06/29/2020, s/p neoadjuvant chemotherapy with TCHP, right mastectomy/ALND, adjuvant T-DM1 forresidual disease, and is now on tamoxifen. When initially seen for neuropsychological consultation in July 2021, she reported frequent memoryissues, e.g., forgetting what she was doing mid-task, relying more on lists, and sometimes word finding difficulties. She started noticing this after radiation and felt it had been about the same over time. On brief neurocognitive testing at that time, she showed variable processing speed and difficulty with cognitive flexibility that were thought to be at least partly secondary to depression. The evaluation was abbreviated given the likely impact of depression on her cognitive functioning at that time, and the potential for near-term improvement once her psychotherapeutic care was established. She has been working with Sonam Yancey APRN and Sharon Desir (Feeder Associate) and has been starting to feel better. On interview today, she reports continued difficulty with short-term memory and reports ???forgetting things all the time?? . It was difficult for her to come up with examples. She also reports sometimes experiencing word-finding difficulty. She denied other cognitive difficulties. She reported hersleep is ???mostly ok?? and that her energy level is slowly improving. Since resuming sertraline, she reports her mood has been somewhat better. She has not particularly noticed improvement in cognition though she felt it might be too soon to tell. Other Medical History: She feels she has had anxiety since childhood, but never marked enough to require treatment. She has no history of head injury, seizures, or other neurological disorder. She has never used drugs or tobacco products, and has no history of alcohol use disorder. Developmental, Educational, and Social History: Her and early development were within normal limits. She never had attention or learning difficulties. She was a good student with grades mostly in the ???A?? range. She was less strong in Math and feels she has always had relatively weak spatial skills. 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 Shecurrently works on a [employer]. Family Medical History: There is no known family history of cognitive disorders such as ADHD or learning disorder in her family. Family history includes high blood pressure (mother, father), breast cancer (paternal grandmother), and ovarian and uterine cancer (paternal aunt). Medications: sertraline; meloxicam; lidocaine-prilocaine cream; lidocaine jelly; diclofenac (Voltaren) gel; tamoxifen; trazodone (Desyrel); acetaminophen (Tylenol); acetylcysteine (NAC); omeprazole (Prilosec); propranoloL (Inderal); ondansetron (Zofran); lactobacillus rhamnosus (Culturelle); melatonin; hydroxyzine (Atarax). Prior Neuropsychological Testing: As above. BEHAVIORAL OBSERVATIONS: Ms. Silva was alert and fully cooperative with the evaluation. She was able to understand and respond to interview questions. She was able to see and hear the test stimuli and understood all test instructions. She navigated well in the telehealth context. Her range of affect was restricted in general, though increased over time during the evaluation and was appropriate to context. She engaged well in the testing process and put forth maximal effort. The obtained test results are considered a valid indication of her current level of cognitive functioning. PROCEDURES ADMINISTERED: Clinical Interview Digit Span Forward and Backward (WAIS-IV) Brief Test of Attention (BTA) Symbol-Digit Modalities Test Oral Bethalto-Making Test Alternating Figures Ruth Ann-Chiang Executive Function System (DK) Color-Word Test NCSE Judgment Similarities (WAIS-IV) Heath Verbal Learning Test - Revised (HVLT-R) Trinh Memory Scale - IV Logical Memory Brief Visuospatial Memory Test - Revised Sentence Comprehension (BDAE3) Ruth Ann-Chiang Executive Function System (DK) Verbal Fluency Still Pond Naming Test - 3 Repetition (BDAE3) Reading () Narrative Writing Sample (Cookie Theft) Written Math Sample Test of Premorbid Function Proctor Visual Organization Test Drawings to Command and Copy Clock Drawing Test Visual Puzzles (WAIS-IV) Thumb-Finger Sequencing Test Linn Depression Inventory-II Villalta Apathy Scale Insomnia Severity Index Fatigue Severity Index Due to the COVID-19 pandemic, this appointment was, with the consent of the patient, carried out using gauzz software with the patient located at her parents??? home in [place]. A description of the specific test modifications is available on request. Telehealth testing is still undergoing evaluation in scientific research. This was taken into account during test administration and interpretation, and the diagnostic considerations and recommendations in this report are presented with this in mind. All tests were administered by the neuropsychologist. TEST RESULTS: Note: Descriptors are based on age-appropriate healthy adult normative data. The term ???within normal limits?? (WNL) is used when a more specific descriptor is not applicable. The descriptors referto the current test results only. Descriptor Standard Score Scaled z Percentile Very Superior >= 130 > 16 >= 2 >= 98 Superior 120-129 14-15 1.3 to 1.9 91-97 High Average 110-119 12-13 0.7 to 1.2 75-90 Average 90-109 8-11 -0.6 to +0.6 25-74 Low Average 80-89 6-7 -0.7 to -1.3 9-24 Borderline 70-79 4-5 -1.4 to -2.0 2-8 Extremely Low < 70 < 4 < -2 < 2 Measure Score Descriptor 07/2021 Current Attention and Executive Functioning Digit Span Forward () 9 12 High Average Digit Span Backward () 10 10 Average Brief Test of Attention (RS, KS) , 25-74 Average DK Stroop - Colors () 9 Average Words () 10 Average Color-Word () 8 Average Oral Bethalto-Making A (Seconds, z) 8 (-1.3) 7, -0.6 Average Oral Bethalto-Making B (Seconds, z) discontinued 77, -3.3 Extremely Low Alternating Figures (errors) 2 0 WNL NCSE Judgment (RS) 5/6 WNL Similarities () 8 Average Learning and Memory HVLT-R Form 1 1 Learning Trials (RS) 7, 10, 11 9, 11, 11 Total Learning (RS, z) 28/36 (-0.2) 31/36, 0.5 Average Delayed Recall (RS, z) 11/12 (0.4) 11/, 0.4 Average Recognition (TH, FP, z) 12, 1 FP (0.1) 11, 2 FP, -1.3 Low Average Logical Memory Immediate () 9 Average Delayed Recall () 9 Average Recognition (RS, CP) , 10-16 Low Average BVMT-R Form 1 Learning Trials (RS) 3, 6, 9 Total Learning (RS, z) 18/36, -2.0 Borderline Delayed Recall (RS, z) 8/12, -1.4 Borderline Recognition (TH, FP, KS) 6/6, 0 FP, >16 WNL Language Skills BDAE Speech Comprehension (RS) 7/10 Borderline [place] Pond Naming Test (RS, z) 57/60, 0.3 Average DK Verbal Fluency Form A A Letter () 8 11 Average Category () 2 9 Average Repetition (RS) 7/ WNL BDAE Reading Aloud (RS) 02/03 WNL Reading Comprehension (RS) 5/ WNL Narrative Writing Sample (Errors) 0 WNL Written Math Sample (RS) 10 WNL Test of Premorbid Function () 115 High Average Spatial Skills Proctor Visual Organization Test (T) 41 Low Average Visual Puzzles () 5 Borderline Drawing to Command - Cube (RS, z) -- 3, -1.4 Borderline Drawings to Copy - Cross (RS, z) 1 (0.8) 1, 0.8 High Average Cube (RS, z) 1 (0.8) 3, -1.5 Borderline Hexagons (RS, z) 3 (-2.1) 3, -2.1 Extremely Low Clock Drawing to Command (RS) 11/03 12/04 WNL Fine Motor Skills TFST - Dominant (RS, z) -- 8, -0.6 Average TFST - Nondominant (RS, z) 9 (0.1) 8, -0.5 Average Questionnaires Linn Depression Inventory (RS) BDI-Fast Screen 8 BDI-II 21 Moderate Villalta Apathy Scale (RS, z) 38, -3.0 Elevated Insomnia Severity Index (RS) 12 Subthreshold Elevation Fatigue Severity Scale (RS) 7 Severe RS = raw score; = age scaled score; T = T-score; TH = total hits; FP = false positives; KS = percentile rank; CP = cumulative percentage Note: Higher z-scores and standard scores reflect better neuropsychological status in all cases. REVIEW OF TEST RESULTS: Attention and Executive Functions: Basic auditory attention span was high average on a digit repetition task. Auditory-verbal working memory was average on a reverse digit repetition task. Speed of processing was consistently average. Cognitive flexibility was extremely low on one challenging timedtask, and within normal limits on another more basic task. Practical reasoning was within normal limits. Abstract verbal reasoning was average. Overall, with the exception of impaired cognitive flexibility (evangelina to mental multi-tasking) on one challenging task, attention and executive abilities were within normal limits. Learning and Memory: Learning and delayed recall of a word list were average. Recognition cueing did not further improve performance. Recall of stories was average on both immediate and delayed testing, and again recognition cueing did not further improve performance. Learning of a set of geometricdesigns was borderline. She was able to retain the information and reproduce it later, and recognition testing was within normal limits. Overall, with the exception of borderline spatial learning, this domain was within normal limits. Language: Speech comprehension was in the borderline range, with a small number of mistakes noted for basic yes/no questions and longer paragraph-length material. Confrontation naming was average andnear the top possible level for the test. Rate of word retrieval was also average. Brief screens ofreading fluency, reading comprehension, narrative writing, and written math were all within normal limits. Her reading vocabulary was in the high average range. Overall, with the exception of a smallnumber of speech comprehension errors (which may have been related to variation in attention), receptive and expressive language were intact. Spatial Skills: Visuoperceptual integration was low average. Ability to mentally arrange geometric designs to match a pattern was borderline. Drawings ranged from extremely low to high average; her lower scores were due to struggling with the drawing of a cube and minor imprecision on drawing of two intersecting hexagons. Overall, spatial skills were an area of personal weakness with most scores in the borderline to low average range. Fine Motor: Thumb-finger sequencing was within normal limits bilaterally. Self-Reports: On a depression screening questionnaire, she endorsed a moderate degree of symptoms including sadness, anhedonia, feelings of failure, guilt, and low self-worth, restlessness, and irritability among others. She also endorsed a relatively high number of symptoms of apathy. She denied suicidal ideation, intent, and plan. Her pattern of responses on an insomnia screening was consistentwith subthreshold insomnia. She takes melatonin about a half hour before bed, and also takes trazodone nightly. 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 . She reports that her tells her she snores but not that she stops breathing. Her self-rated level of fatigue was severe. Overall, she appears to be experiencing moderate depression, insomnia, and severe fatigue. Comparison to Prior Testing: Compared to limited screening from July 2021, Ms. Silva shows improved attention and word retrieval. She had greater difficulty drawing a cube on current testing, but her spatial skills are otherwise stable. Her remaining scores are also stable. SUMMARY AND RECOMMENDATIONS: Ms. Silva showed intact cognition in most areas on this evaluation. This includes intact attention, working memory, processing speed, practical reasoning, abstract reasoning, verbal learning and memory, naming, word retrieval, and fine motor coordination bilaterally. She did show impaired cognitive flexibility on a challenging rapid processing task; a personal weakness in spatial skills and spatial learning; and a small number of speech comprehension errors (that may have been attentional in origin). She also appears to be experiencing moderate depression, sleepdisruption, and severe fatigue. In summary, current testing is notable for impairment of cognitive flexibility, which is evangelina to ???mental multi-tasking?? , and other milder spatial and speech comprehension weaknesses. The pattern of findings is nonspecific with respect to etiology. In her case, contributing factors likely include her depression, sleep disturbance, and fatigue, and possibly a lifelong weakness in spatial skills(per her report). Direct effects of her breast cancer and treatment cannot be ruled out on the basis of this evaluation. Compared to an July 2021 cognitive screening, she shows improved cognition insome areas on formal testing, which may be related at least partly to the fact that she has now established mental health care and she feels her mood and energy level have been gradually improving. (1) I reviewed the preliminary findings with Ms. Silva at the time of testing, and met with her on 04/02/2022 to review the final results and recommendations in more detail. She demonstrated a good understanding of the information and appeared to find the results reassuring. She is aware she can access this report through [facility]. (2) She will benefit from continuing to engage in psychiatric and psychological care. In view of her moderate level of residual depression despite psychopharmacologic treatment, continued close monitoring and adjustments as needed in her medication regimen will be an important part of her care. It may also be helpful to review the medications she is currently taking for sleep (melatonin, trazodone) and how she is using them. (3) If not already done, it may be beneficial to include sleep recommendations as part of her psychotherapy. In the interim, I reviewed with her strategies she might wish to try such as: - going to bed and waking up at the same time each day - creating a good sleeping environment (comfortable, dark enough, quiet enough, right temperature) - developing relaxing nighttime rituals - using relaxation strategies before bed (see below [facility] resource) - exercising regularly, avoiding caffeine, and continue to avoid alcohol If she continues to have sleep disruption despite further intervention, a referral to Sleep Medicine may be appropriate. (4) [facility] offers a number of self-care resources for stress management, mindfulness, and general wellness that may be helpful to her: [email or web address]-[email or web address]-hioy-resources. On this this website, click on Stress Management, and click on Health Tools (at the bottom). Under Health Tools, I suggest she review one or more of these modules: - Breathing Exercises for Relaxation - Doing Guided Imagery to Relax, and - Doing Progressive Muscle Relaxation. (5) At the discretion of her referring clinician, she may benefit from lab tests for treatable etiologies of cognitive decline (e.g., Vitamins B12, B6, B9; homocysteine and methylmalonic acid if B12 or B9 are low; TSH). In addition, brain imaging may be appropriate, especially if she continues to experience subjective cognitive difficulties despite improvements in her mood and sleep. (6) I am hopeful that she will experience improved cognition with improvements in her mood and sleep. In the meantime, however, I encouraged her to use compensatory cognitive strategies. Based on hercurrent profile, the most important strategy is to avoid multi-tasking as follows: - focus on one task at a time, setting others aside - break larger tasks into smaller steps, and focus on one step at a time - set aside a quiet time and place for cognitive tasks - keep an organized environment, and minimize unnecessary visual and auditory distractions (7) Activity pacing is also likely to be helpful in managing her fatigue. I reviewed several ramirez elements with her: - take regular rest breaks throughout the day, ideally before becoming tired to avoid build-up of fatigue - schedule demanding tasks for times of day when you are most likely to be rested - set a time limit on fatiguing tasks - alternate easy and difficult tasks (8) We discussed the availability of Occupational Therapy if she would like assistance with implementing compensatory cognitive strategies and activity pacing, and she is aware she can request a referral. (9) In view of the fact that she continues to experience significant subjective cognitive concerns and is performing below expectation in some respects on formal testing, she would benefit from a brief neurobehavioral status exam in approximately one year (or sooner if needed) to track her cognitive trajectory and provide updated recommendations. She is in agreement with this plan, and I will create a call-back for her for the Fall of 2022. Thank you for referring Ms. Silva for neuropsychological evaluation. Please do not hesitate to contact me if I can be of assistance (Neuropsychology or via eD or [facility]). Dafne Dykes, PhD Clinical Neuropsychologist [id number]: 1:00 (1 unit) [id number]: 3:21 (3 units) [id number]: 0:30 (1 unit) [id number]: 3:07 (6 units) documented in this encounter Plan of Treatment Upcoming Encounters Date Type Department Care Team (Late st Contact Info) Description 02/13/2025 1:00 PM EDT Office Visit Radiation Oncology at [address] [phone] Eleonora Mensah MD [facility] [place] [address] documented as of this encounter Visit Diagnoses Diagnosis Cognitive decline Unspecified persistent mental disorders due to conditions classified elsewhere Depression, unspecified depression type Malignant 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, estrogen receptor positive documented in this encounter Care Teams Commission Sales Associate Relationship Specialty Start Date End Date Charleen Williamson APRN [address] [place] [address] PCP - General Family Medicine 06/29/20 documented as of this encounter
--- OUTSIDE RECORDS SUMMARY | 2024-05-09 13:56 | XMS_ITS | Encounter Summary ---
Author Organization [facility] Address [facility] [place] [address] Care Team Providers Care Network Design Architect Name Role Phone Charleen Williamson APRN Primary Care Provider [phone] Encounter Details Date Type Department Care Team (Late st Contact Info) Description 02/25/2022 3:30 PM EDT TH Visit (TeleHealth) Hematology [place] [address] Jossy Yancey ICE DELIVERY DRIVER [facility] [place] [address] Current moderate episode of major depressive disorder without prior episode (Primary Dx); Swelling of right hand; Malignant neoplasm of overlapping sites of right [...] Recorded In the last 10 days, have gino ryan been in contact with someone who was confirmed or suspected to have Coronavirus/COVID-19? No / Unsure 02/17/2022 8:31 PM EDT documented as of this encounter Progress Notes * Jossy Yancey APRN - 02/25/2022 3:30 PM EDT PSYCHIATRY CONSULTATION AT [facility] FOLLOW UP Time Spent: 30 minutes Location: Alis located in her home in [place] Attendee(s): Jossy Snell APRN HISTORY Patient Identification: [...] () Currently at 150 mg and reports the following that she's 'okay'. Denies side effects that are concerning. Feels her mood has improved but admits that she feels a great amount of depression 'because of the shit I have going on'. Less irritability, less snappy. Discusses the goal of applying for jobs; she states she has not completed because she and her do not have a vehicle as their motor went on their truck and their other truck's inspection ran out. Some jobs looked viable though near [place]. 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 Sleep at nighttime-'for the most part okay'. When wakes up to pee it's hard to get back to sleep asshe starts thinking and can't shut down. Denies overt anxiety. Denies SI/HI. Pertinent Medication Side Effects: Gabapentin [...] Outpatient Medications Medication Sig Dispense Refill ??? venlafaxine (EFFEXOR-XR) 150 mg Capsule, Sust. Release 24 hr ??? sertraline HCl (SERTRALINE ORAL) Take 150 mg by mouth. ??? meloxicam (MOBIC) 7.5 mg Tablet Take 1 tablet by mouth daily. May increase to 2 tablets daily if needed. 60 tablet 5 ??? lidocaine-prilocaine (EMLA) Cream APPLY A THINK LAYER OF CREAM TO DESIGNATED SITE OF INTACT SKIN 60 MINUTES PRIOR TO ACCESING PORT. COVER SITE WITH OCCLUSIVE DRESSING. 30 g 1 ??? lidocaine (Xylocaine) 2 % jelly Apply topically to anal fissure as needed for pain relief. Do not use more than 30 mL in a 24-hr period. 30 mL 2 ??? diclofenac (Voltaren) 1 [...] 3 ??? Miscellaneous Medical Supply Misc by [facility]Non-Drug; Combo Route) route. Remedy Phytoplex Moisturizer. Apply to area of radiation twice a day but no less than 2 hours before a treatment. ??? acetaminophen (Tylenol) 500 mg Tablet Take 2 tablets by mouth every 6 hours. (Patient taking differently: Take 1,000 mg by mouth as needed.) 30 tablet 1 ??? ibuprofen (Advil) 600 mg Tablet Take 1 tablet by mouth every 6 hours. (Patient not taking: No sig reported) 30 tablet 12 ??? acetylcysteine (NAC) 600 mg Tablet Take 600 mg by mouth 2 times daily. ??? omeprazole (PriLOSEC) 40 mg Capsule, Delayed Release(E.C.) Take 40 mg by mouth daily. ??? prochlorperazine (Compazine) 10 mg Tablet Take 1 tablet by mouth every 6 hours as needed for Nausea. (Patient not taking: No sig reported) 15 tablet 0 ??? propranoloL (Inderal) 20 mg Tablet Take [...] Hematologic x Endocrine x Allergy x PFSH: () PAST PSYCHIATRIC HISTORY: ?? Hospitalizations: none ?? [...] attempts ?? DEVELOPMENTAL/PSYCHOSOCIAL HISTORY: Currently lives in [place], [place] with her Elmer Relationship status: . [...] ?? 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 Trauma/Abuse History: not reviewed EXAM Constitutional System ? Vital Signs: There were no vitals taken for this visit. Musculoskeletal System ? Muscle Strength/Tone: normal tone, no weakness ? Gait and Station: steady gait, without abnormality Psychiatric System ? General Appearance/Behavior: Cooperative and pleasant. Appropriately dressed in cold-weather clothes (cold in house), behavior is guarded ? Movements: no abnormal [...] ? Language: normal ? Fund of Knowledge: investment representative of education level MEDICAL DECISION MAKING ; ASSESSMENT: Alis Silva is a 31 y.o. Female with symptoms of MDD and anxiety, both likely exacerbated by ovarian suppression. We will continue Zoloft at 150 mg with a MyDH check in in about 3 weeks. Though we have room to increase towards 200 mg Alis has not been at this therapeutic dose forvery long and appears to be benefiting from our changes. RECOMMENDATIONS/PLAN ?? Safety: SI/HI denied; reviewed office and emergency contact info. Crisis line is [phone] ?? Medications: Zoloft 150 mg ?? Additional treatment recommendations: Continue with Sharon as scheduled ?? FOLLOW-UP CARE: 1. Follow up care planned for: Apr 01 3. Pt is aware is aware of emergency contact procedures and given crisis phone number Routine suicide risk assessment: Acute suicide risk is considered low in light of personal, genetic, and demographic factors. Thank you for consulting me in the care of Alis Silva. I would be happy to see Alis iSlva for another consultation in the future if that would be helpful. Please contact me with any questions regarding his care or to collaborate further on this case. 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
--- OUTSIDE RECORDS SUMMARY | 2024-05-09 13:56 | XMS_ITS | Encounter Summary ---
[place] [address] Care Team Providers Care Corporate Pilot Name Role Phone Charleen Williamson APRN Primary Care Provider [phone] Encounter Details Date Type Department Care Team (Latest Contact Info) Description 04/01/2022 2:00 PM EST TH Visit (TeleHealth) [place] [address] Sharon Desir Current moderate episode of major depressive disorder without prior episode Social History Tobacco Use Types Packs/Day Years [...] as of this encounter Progress Notes * Sharon Desir - 04/01/2022 2:00 PM EST [facility] PSYCHO-ONCOLOGY FOLLOW-UP N [facility] HEMATOLOGY AND ONCOLOGY AT [facility] [id number] Dept: [phone] Loc: [phone] 04/01/2022 2:00 PM Time spent: 45 minutes. Location: Telehealth. Alis Silva gave permission for and was seen for today's appointment with a Telehealth visit. During this visit they were located [place]. Alis Silva is aware that for any urgent matter they can call [phone]. Attendees: Patient SESSION #: 8 CHIEF COMPLAINT Adjustment to cancer dx and tx GOALS FOR THERAPY ??? Reduce anxiety and depressive symptoms ??? Improve coping with uncertainty and fear of recurrence S/O Since the previous session, Alis Silva reported decreased anxiety and maintained depression. She rated her anxiety at a 3 on scale from 1 (not at all) to 10 (extremely) and her depression at a 4. Today's session focused on behavioral activation. Alis reported that she did not complete her goal of reading before bed due to her forgetting to do it. She suggested ways that she could remember to complete her goals, including setting a reminder on her phone or writing the goals down on the white board next to her bed. She reported that she was experiencing an improved mood due to being busy w ith work but expressed concerns that it would decrease since work is slowing down. 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 She reported that she is also interested in adoption or surrogacy but does not have money for it. She noted that some programs may have financial assistance, so she set a goal to look into this before her next session. We also completed an activity convention planner together to help her intentionally participate in pleasurable activities, including reading, coloring, and doing word puzzles. Diagnosis: Major depressive disorder, moderate Mental Status: No SI. Mental status WNL. Fully engaged in therapy process. P In between sessions, Alis will complete her behavioral activation activity convention planner and look into financial assistance for adoption or surrogacy. Follow-up appointment scheduled for return in 1 month. Alis Silva has my contact information and was encouraged to reach out to me in the future as needed. * Lacy Barroso, PhD - 04/01/2022 2:00 PM EST I have reviewed this note and agree with the plan and treatment Lacy Barroso, PhD documented in this encounter Plan of Treatment Upcoming Encounters Date Type Department Care Team (Late st Contact Info) Description 02/13/2025 1:00 PM EDT Office Visit Radiation Oncology at [address] [phone] Eleonora Mensah MD [facility] [place] [address] documented as of this encounter Visit Diagnoses Diagnosis Current moderate episode of major depressive disorder without prior episode documented in this encounter Care Teams Corporate Pilot Relationship Specialty Start Date End Date Charleen Williamson APRN [address] [place] [address] PCP - General Family Medicine 06/29/20 documented as of this encounter
--- OUTSIDE RECORDS SUMMARY | 2024-05-09 13:56 | XMS_ITS | Encounter Summary ---
Author Organization [facility] Address [facility] [place] [address] Care Team Providers Care Area Field Person Name Role Phone Charleen Williamson APRN Primary Care Provider [phone] [phone] Encounter Details Date Type Department Care Team (Latest Contact Info) Description 02/19/2022 Travel Social History Tobacco Use Types Packs/Day [...] EDT Office Visit Radiation Oncology at [address] [phone] Eleonora Mensah MD [facility] [place] [address] documented as of this encounter Visit Diagnoses Not on filedocumented in this encounter Care Teams Area Field Person Relationship Specialty Start Date End Date Charleen Williamson APRN [address] [place] [address] PCP - General Family Medicine 06/29/20 documented as of this encounter
--- OUTSIDE RECORDS SUMMARY | 2024-05-09 13:56 | XMS_ITS | Encounter Summary ---
Author Organization [facility] Address [facility] [place] [address] Care Team Providers Care Visitor Services Technician Name Role Phone Charleen Williamson APRN Primary Care Provider [phone] [phone] Encounter Details Date Type Department Care Team (Latest Contact Info) Description 03/16/2022 Travel Social History Tobacco Use Types Packs/Day [...] PM EDT Office Visit Radiation Oncology at [address] [phone] [facility] [address] [place] [address] documented as of this encounter Visit Diagnoses Not on filedocumented in this encounter Care Teams Visitor Services Technician Relationship Specialty Start Date End Date Charleen Williamson APRN [address] [place] [address] PCP - General Family Medicine 06/29/20 documented as of this encounter
--- OUTSIDE RECORDS SUMMARY | 2024-05-09 13:56 | XMS_ITS | Encounter Summary ---
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 [facility] [place] [address] Current moderate episode of major depressive disorder without prior episode (Primary Dx); Swelling of right hand; 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, estrogen receptor positive; Right hand pain Social History Tobacco Use Types Packs/Day Years [...] Progress Notes * Jossy Yancey APRN - 02/04/2022 9:30 AM EDT PSYCHIATRY CONSULTATION AT [facility] FOLLOW UP Time Spent: 30 minutes Location: Alis located in her home in [place] Attendee(s): Jossy Snell APRN HISTORY Patient Identification: [...] 01/29/22 Chief Complaint: I'm okay. HPI: () Restarted Zoloft and discontinued Trintellix. Currently at 100 mg and reports the following that she's 'okay'. Denies side effects including restlessness, upset stomach. Does endorse headaches but weare unsure if related to Zoloft. Sleep at nighttime-'for the most part okay'. Hot flashes at night-last for a few minutes then pass. Continues to 'get irritable over nothing'. Does express to me that she struggles with several aspects of life: not working full-time, living 'where I live', and stressors with her 's family with whom they share property with. Though minimal detail provided Alis states she's working with Sharon on verbalized issues. Denies overt anxiety. Has MRI scheduled on hand to see if ganglion cyst in hand (Feb 11) Denies SI/HI. Pertinent Medication Side Effects: Gabapentin I felt like a zombie when I took it in the morning (discontinued), Effexor: Restlessness day/evening Patient denies signs/symptoms of prasnana or hypomania, mood swings, paranoia, or a/v/t/g [...] mass of finger of right hand R22.31 Current Medications: Current Outpatient Medications Medication Sig Dispense Refill ??? vortioxetine (Trintellix) 20 mg Tablet Take 1 tablet by mouth daily. (Patient not taking: Reported on 01/24/2022) 30 tablet 3 ??? meloxicam (MOBIC) 7.5 mg Tablet Take [...] 3 ??? Miscellaneous Medical Supply Misc by [facility] [place]Non-Drug; Combo Route) route. Remedy Phytoplex Moisturizer. Apply [...] 1 tablet by mouth every 6 hours. 30 tablet 12 ??? acetylcysteine (NAC) 600 mg Tablet Take 600 mg by mouth 2 times daily. ??? omeprazole (PriLOSEC) 40 mg Capsule, Delayed Release(E.C.) Take 40 mg by mouth daily. ??? prochlorperazine (Compazine) 10 mg Tablet Take 1 tablet by mouth every 6 hours as needed for Nausea. 15 tablet 0 ??? propranoloL (Inderal) 20 [...] attempts ?? DEVELOPMENTAL/PSYCHOSOCIAL HISTORY: Currently lives in [place], [place] with her Elmer Relationship status: . [...] ?? 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 Trauma/Abuse History: not reviewed EXAM Constitutional System [...] ? Language: normal ? Fund of Knowledge: cash application representative of education level MEDICAL DECISION MAKING ; ASSESSMENT: Alis Silva is a 31 y.o. Female with symptoms of MDD and anxiety, both likely exacerbated by ovarian suppression. We will continue Zoloft and increase to 150 mg this Thursday (02/08). Tamara continues to work with Sharon and feels this is beneficial for therapy. Though Alis feels continued irritability she is also struggling with psychosocial stressors (not working full[place]time, [place], interpersonal struggles with 's family). Continued therapy will be most helpful for coping in conjunction with medication. RECOMMENDATIONS/PLAN ?? Safety: SI/HI denied; reviewed office and emergency contact info. Crisis line is [phone] ?? Medications: Zoloft 150 mg starting Thursday 02/08 ?? Additional treatment recommendations: Continue with Sharon as scheduled ?? FOLLOW-UP CARE: 1. Follow up care planned for: Feb 25 3:30 video 3. Pt is aware is aware of [...] further on this case. Jossy Yancey APRN 02/04/2022 documented in this encounter Plan of Treatment Upcoming Encounters Date Type Department Care Team (Late st Contact Info) Description 02/13/2025 1:00 PM EDT Office Visit Radiation Oncology at [address] [phone] Eleonora Mensah MD [facility] [place] [address] documented as of this encounter Visit Diagnoses Diagnosis Current moderate episode of major depressive disorder without prior episode- Primary Swelling of right hand 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, estrogen receptor positive Right hand pain Pain in limb documented in this encounter Care Teams Associate Automation Engineer Relationship Specialty Start Date End Date Charleen Williamson APRN [address] [place] [address] PCP - General Family Medicine 06/29/20 documented as of this encounter
--- OUTSIDE RECORDS SUMMARY | 2024-05-09 13:56 | XMS_ITS | Encounter Summary ---
Author Organization [facility] [place] [address] Care Team Providers Care Divinity Professor Name Role Phone Charleen Williamson APRN Primary Care Provider +1 [phone] Reason for Referral * Diagnostic Test (Routine) - Closed Specialty Diagnoses / Procedures Referred By Contac t Referred To Contact Radiology Diagnoses Subcutaneous mass of finger of right hand Procedures MRI Hand wwo Contrast Right MRI Hand wo Contrast Right Ching Bone PA [facility] [place] [address] [place] [address] Referral ID Status Reason Start Date Expiration Date V isits Requested Visits Authorized [id number] Closed Specialty Service Requested 01/24/2022 07/25/2023 1 1 Reason for Visit * Diagnostic Test (Routine) - Closed Specialty Diagnoses / Procedures Referred By Contac t Referred To Contact Radiology Diagnoses Subcutaneous mass of finger of right hand Procedures MRI Hand wwo Contrast Right MRI Hand wo Contrast Right Ching Bone PA [facility] [place] [address] [place] [address] Referral ID Status Reason Start Date Expiration Date V isits Requested Visits Authorized [id number] Closed Specialty Service Requested 01/24/2022 07/25/2023 1 1 Encounter Details Date Type Department Care Team (Latest Contact Info) Description 02/11/2022 7:26 PM EDT - 02/11/2022 11:59 PM EDT Hospital [facility] [place] [address] Yoshi Abbasi MD [facility] [place] [address] Subcutaneous mass of finger of right hand Discharge Disposition: Home Social History Tobacco Use [...] EVERY 8 HOURS NEEDED FOR ANXIETY 07/09/2020 venlafaxine (EFFEXOR-XR) 150 mg Capsule, Sust. Release 24 hr 12/23/2021 02/27/2022 meloxicam (MOBIC) 7.5 mg Tablet Take 1 tablet by mouth daily. May increase to 2 tablets daily if needed. 60 tablet 5 10/24/2021 04/23/2022 lidocaine-prilocaine (EMLA) Cream APPLY A THINK LAYER [...] 04/18/2021 06/18/2022 Miscellaneous Medical Supply Misc by [facility]Non-Drug; Combo Route) route. Remedy Phytoplex Moisturizer. Apply to area of radiation twice a day but no less than 2 hours before a treatment. 06/18/2022 ibuprofen (Advil) 600 mg Tablet Take 1 tablet by mouth every 6 hours. 30 tablet 12 01/28/2021 03/24/2022 prochlorperazine (Compazine) 10 mg Tablet Take 1 tablet by mouth every 6 hours as needed for Nausea. 15 tablet 12/07/2020 03/24/2022 lactobacillus rhamnosus, GG, (CULTURELLE) 10 billion cell Capsule Take 1 capsule by mouth daily. 02/15/2024 documented as of this encounter Plan of Treatment Upcoming Encounters Date Type Department Care Team (Late st Contact Info) Description 02/13/2025 1:00 PM EDT Office Visit Radiation Oncology at [address] [phone] Eleonora Mensah MD [facility] [place] [address] documented as of this encounter Procedures Procedure Name Priority Date/Time Associated Diagnosis Comments MRI HAND RIGHT WITH/WO CONTRAST Routine 02/11/2022 8:31 PM EDT Subcutaneous mass of finger of right hand documented in this encounter Results * MRI Hand wwo Contrast Right (02/11/2022 8:31 PM EDT) Anatomical Region Laterality Modality Hand Right Magnetic Resonan ce Impressions 02/12/2022 10:12 AM EDT Cystic lesion within the volar subcutaneous tissues overlying the third finger proximal phalanx. This lesion has benign imaging features and likely represents a digital ganglion or mucoid cyst. I have personally reviewed the image(s) and the resident's interpretation and agree with the findings, Sheryl Carvajal MD at 02/12/2022 10:12 AM Thank you for letting us participate in the care of this patient. ??If you are a health care provider and have any questions regarding this report, please contact the number below. ??For patients who have questions please contact the health child care center administrator that requested your imaging first. ? Electronically signed by: Sheryl Carvajal MD, [facility] ([phone]), at 02/12/2022 10:12 AM Narrative 02/12/2022 10:12 AM EDT EXAMINATION: MRI HAND WWO CONTRAST RIGHT CLINICAL HISTORY: right middle finger volar MP joint mass TECHNIQUE: MRI of the right hand with and without 16 ml Dotarem contrast COMPARISON: Right hand radiograph 12/02/2021 FINDINGS: There is a 13 x 13 x 8 mm T2/STIR hyperintense cystic lesion within the volar subcutaneous tissues superficial to the third proximal phalanx. Uniform fine rim enhancement. No solid enhancing components. Lesion abuts but is distinct from the deeper flexor digitorum profundus tendon. No identifiable stalk or communication to adjacent MTP joint. Normal marrow signal. Normal muscle bulk and signal. Normal appearance of the joint spaces. Procedure Note Sheryl Carvajal MD - 02/12/2022 EXAMINATION: MRI HAND WWO CONTRAST RIGHT CLINICAL HISTORY: right middle finger volar MP joint mass TECHNIQUE: MRI of the right hand with and without 16 ml Dotarem contrast COMPARISON: Right hand radiograph 12/02/2021 FINDINGS: There is a 13 x 13 x 8 mm T2/STIR hyperintense cystic lesion within thevolar subcutaneous tissues superficial to the third proximal phalanx. Uniformfine rim enhancement. No solid enhancing components. Lesion abuts but is distinct from the deeper flexor digitorum profundustendon. No identifiable stalk or communication to adjacent MTP joint. Normal marrow signal. Normal muscle bulk and signal. Normal appearance ofthe joint spaces. IMPRESSION Cystic lesion within the volar subcutaneous tissues overlying the thirdfinger proximal phalanx. This lesion has benign imaging features and likelyrepresents a digital ganglion or mucoid cyst. I have personally reviewed the image(s) and the resident's interpretationand agree with the findings, Sheryl Carvajal MD at 02/12/2022 10:12 AM Thank you for letting us participate in the care of this patient. If youare a health care provider and have any questions regarding this report,please contact the number below. For patients who have questions please contactthe health child care center administrator that requested your imaging first. Electronically signed by: Sheryl Carvajal MD, [facility]([phone]), at 02/12/2022 10:12 AM Yoshi Abbasi MD IMG MRI ORDERABLES documented in this encounter Visit Diagnoses Diagnosis Subcutaneous mass of finger of right hand documented in this encounter Administered Medications Inactive Administered Medications - up to 3 most recent administrations Medication Order MAR Action Action Date Dose Rate Site gadoterate meglumine (Dotarem) (0.5 mMol/mL) injection solution 0-100 mL 0-100 mL, Intravenous, ONCE PRN, 1 dose, Starting on Tu02/11/22 at 2030, Until Thu02/11/22 at 2030, Per Protocol, Radiology Contrast, Routine Given 02/11/2022 8:31 PM EDT 16 mLs documented in this encounter Care Teams Divinity Professor Relationship Specialty Start Date End Date Charleen Williamson APRN [address] [place] [address] PCP - General Family Medicine 06/29/20 documented as of this encounter
--- OUTSIDE RECORDS SUMMARY | 2024-05-09 13:56 | XMS_ITS | Encounter Summary ---
Author Organization [facility] Address [facility] [place] [address] Care Team Providers Care Cylinder Valve Repairer Name Role Phone Charleen Williamson APRN Primary Care Provider [phone] [phone] Encounter Details Date Type Department Care Team (Latest Contact Info) Description 02/17/2022 Travel Social History Tobacco Use Types Packs/Day [...] EDT Office Visit Radiation Oncology at [address] [phone] Eleonora Mensah MD [facility] [place] [address] documented as of this encounter Visit Diagnoses Not on filedocumented in this encounter Care Teams Cylinder Valve Repairer Relationship Specialty Start Date End Date Charleen Williamson APRN [address] [place] [address] PCP - General Family Medicine 06/29/20 documented as of this encounter
--- OUTSIDE RECORDS SUMMARY | 2024-05-09 13:56 | XMS_ITS | Encounter Summary ---
Author Organization [facility] Address [facility] [place] [address] Care Team Providers Care Liner Checker Name Role Phone Charleen Williamson APRN Primary Care Provider +1 [phone] Encounter Details Date Type Department Care Team (Latest Contact Info) Description 03/10/2022 Travel Social History Tobacco Use Types Packs/Day [...] EDT Office Visit Radiation Oncology at [address] [phone] Eleonora Mensah MD [facility] [place] [address] documented as of this encounter Visit Diagnoses Not on filedocumented in this encounter Care Teams Liner Checker Relationship Specialty Start Date End Date Charleen Williamson APRN [address] [place] [address] PCP - General Family Medicine 06/29/20 documented as of this encounter
--- OUTSIDE RECORDS SUMMARY | 2024-05-09 13:56 | XMS_ITS | Encounter Summary ---
Author Organization [facility] Address [facility] [place] [address] Care Team Providers Care Acid Recovery Operator Name Role Phone Charleen Williamson APRN Primary Care Provider +1 [phone] Encounter Details Date Type Department Care Team (Latest Contact Info) Description 03/10/2022 10:00 AM EST TH Visit (TeleHealth) Psychiatry [place] [phone] Dafne Dykes, PhD [facility] [address] Malignant neoplasm of central portion of right [...] Progress Notes * Dafne Dykes, PhD - 03/10/2022 10:00 AM EST Neuropsychology Note. This evaluation will be completed over more than one visit. The final visit is scheduled for 2021. documented in this encounter Plan of Treatment Upcoming Encounters Date Type Department Care Team (Late st Contact Info) Description 02/13/2025 1:00 PM EDT Office Visit Radiation Oncology at [address] [phone] [facility] [place] [address] documented as of this encounter Visit Diagnoses Diagnosis Malignant 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, estrogen receptor positive documented in this encounter Care Teams Acid Recovery Operator Relationship Specialty Start Date End Date Charleen Williamson APRN [address] [place] [address] PCP - General Family Medicine 06/29/20 documented as of this encounter
--- OUTSIDE RECORDS SUMMARY | 2024-05-09 13:56 | XMS_ITS | Encounter Summary ---
Author Organization [facility] Address [facility] [place] [address] Care Team Providers Care Aquatic Performer Name Role Phone Charleen Williamson APRN Primary Care Provider +1 [phone] Reason for Visit * Reason Comments Chemotherapy * Treatment/Therapy Plan Authorization (Routine) - Closed Specialty Diagnoses / Procedures Referred By Fawn t Referred To Contact Diagnoses 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, estrogen receptor positive Procedures INJ, ADO-TRASTUZUMAB EMT 1MG TC GOSERELIN ACETATE IMPLANT, 3.6MG (ZOLADEX) TC PALONOSETRON HCL, 25MCG, INJECTION (ALOXI) Tyra Cornejo MD [facility] [place] [address] [facility] Hem Onc Office [address] [place] [phone] Referral ID Status Reason Start Date Expiration Date Visits Re quested Visits Authorized [id number] Closed 03/01/2021 04/26/2022 99 99 Encounter Details Date Type Department Care Team (Latest Contact Info) Description 01/29/2022 6:53 AM EDT - 01/29/2022 11:59 PM EDT Hospital Encounter Hematology [place] [address] Malignant neoplasm of overlapping sites of right [...] Sign Reading Time Taken Comments Blood Pressure 109/72 01/29/2022 7:51 AM EDT Pulse 76 01/29/2022 7:51 AM EDT Temperature 36.7 ??C (98 ??F) 01/29/2022 7:51 AM EDT Respiratory Rate 20 01/29/2022 7:51 AM EDT Oxygen Saturation 97% 01/29/2022 7:51 AM EDT Inhaled Oxygen Concentration - - Weight 79.9 kg (176 lb 2.4 oz) 01/29/2022 7:51 A M EDT Height 177.6 cm (5' 9.92) 01/29/2022 7:51 AM ED T Body Mass Index 25.33 01/29/2022 7:51 AM EDT documented in this encounter Medications at Time of Discharge Medication Sig Dispensed Refills Start Date End Date acetaminophen (Tylenol) 500 mg Tablet Take 2 [...] Capsule, Sust. Release 24 hr 12/23/2021 02/27/2022 vortioxetine (Trintellix) 20 mg Tablet Take 1 tablet by mouth daily. 30 tablet 3 12/10/2021 02/04/2022 meloxicam (MOBIC) 7.5 mg Tablet Take 1 [...] 04/18/2021 06/18/2022 Miscellaneous Medical Supply Misc [place] [facility]Non-Drug; Combo Route) route. Remedy Phytoplex Moisturizer. Apply [...] as of this encounter Progress Notes * Raquel Xiong RN - 01/29/2022 8:08 AM EDT Patient Name: Alis Silva Patient Age: 31 y.o. Birthdate: 1990 Admit date: 01/29/2022 Attending Physician: No att. providers found Alis Silva, 31 y.o. female with diagnosis of Breast CA is here for IV infusion of Kadcyla 303mg. CYCLE: 14 DAY: 1 S: Pt. offers no complaints at this time. O: Orders independently verified for correct drug name, route and dosage per patient's height, weight and BSA by Raquel Xiong RN and onsite pharmacist. IV Medication administered per hospitalpolicy. REACTIONS: None. Pre-medicated with Aloxi 0.25 mg IV, and Decadron 10 mg IV. A: Pt. Tolerated treatment well. Alis Silva confirms that all questions and issues have been addressed. P: Return to clinic as scheduled. documented in this encounter Plan of Treatment Upcoming Encounters Date Type Department Care Team (Late st Contact Info) Description 02/13/2025 1:00 PM EDT Office Visit Radiation Oncology at [address] [phone] Eleonora Mensah MD [facility] [place] [address] documented as of this encounter Visit Diagnoses Diagnosis 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, estrogen receptor positive documented in this encounter Administered Medications Inactive Administered Medications - up to 3 most recent administrations Medication Order MAR Action Action Date Dose Rate Site ado-TRASTuzumab emtansine (Kadcyla) 300 mg in sodium chloride 0.9% 265 mL infusion 300 mg, Intravenous, ONCE, 1 dose, On Thu01/29/22 at 0930, Administer over 30 Minutes, Monitor patient for ado-trastuzumab emtansine infusion reactions 30 minutes after each subsequent dose if the first dose was well-tolerated. Dose Ordered = 303 mg (3.6 mg/kg). Pharmacist rounded dose per procedure., This agent is restricted to outpatient use. Is this drug being given as an outpatient? Yes New Bag 01/29/2022 9:07 AM EDT 300 mg 530 mL/hr dexAMETHasone (PF) (Decadron) (10 mg/mL) injection 10 mg 10 mg, Intravenous, ONCE, 1 dose, On Thu01/29/22 at 0830 Given 01/29/2022 8:36 AM EDT 10 mg heparin (pf) (porcine) (100 units/mL) flush 5 mL syringe 500 Units 500 Units, Intravenous, ONCE PRN, Starting on Thu01/29/22 at 0804, Until Alannah 01/30/22 at 0434, Line Care, Refer to Intravenous (IV) Procedure: Accessing Implanted Vascular Access Devices (344) procedure and/or Intravenous (IV) Job Aid: Adult Flushing & Catheter Care (2011) job aid for additional information regarding guidelines and administration., Routine Given 01/29/2022 9:50 AM EDT 500 Units palonosetron (Aloxi) (0.05 mg/mL) injection 0.25 mg 0.25 mg, Intravenous, ONCE, 1 dose, On Thu01/29/22 at 0830, Routine Given 01/29/2022 8:33 AM EDT 0.25 mg sodium chloride 0.9 % (flush) (BD PosiFlush Normal Saline 0.9) flush 5-20 mL 5-20 mL, Intravenous, EVERY 1 MIN PRN, Starting on Thu01/29/22 at 0653, Until Alannah 01/30/22 at 0434, Line Care, Flush pertains to all indwelling lines. Flush per protocol found in the job aid using the link provided on this medication record. Refer to Intravenous (IV) Job Aid: Adult Flushing & Catheter Care (7343) job aid for additional information regarding guidelines and administration., Routine Given 01/29/2022 9:50 AM EDT 20 mLs Given 01/29/2022 7:12 AM EDT 20 mLs documented in this encounter Care Teams Aquatic Performer Relationship Specialty Start Date End Date Charleen Williamson APRN [address] [place] [address] PCP - General Family Medicine 06/29/20 documented as of this encounter
--- OUTSIDE RECORDS SUMMARY | 2024-05-09 13:56 | XMS_ITS | Encounter Summary ---
[place] [address] Care Team Providers Care Movie Shot Cameraman Name Role Phone Charleen Williamson APRN Primary Care Provider +1 [phone] Reason for Visit * Auth/Cert (Routine) Specialty Diagnoses / Procedures Referred By Contac t Referred To Contact Diagnoses mucous cyst Procedures PRO EXCISION LESION TENDON SHEATH OR JT CAPSULE, HAND OR FINGER EXCISION LESION TENDON SHEATH OR JOINT CAPSULE, HAND OR FINGER (WRVU 3.57) Silas Abbasi MD [facility] [place] [address] [facility] Referral ID Status Reason Start Date Expiration Date Visits Re quested Visits Authorized [id number] 1 1 Encounter Details Date Type Department Care Team (Latest Contact Info) Description 04/29/2022 9:18 AM EST - 04/29/2022 1:10 PM [facility] Hospital Encounter [place] [address] Silas Abbasi MD [facility] [place] [address] Subcutaneous mass of finger of right hand [...] Sign Reading Time Taken Comments Blood Pressure 115/75 04/29/2022 12:45 PM EST Pulse 71 04/29/2022 12:45 PM EST Temperature 36.3 ??C (97.3 ??F) 04/29/2022 11:[address] Respiratory Rate 16 04/29/2022 12:45 PM EST Oxygen Saturation 98% 04/29/2022 12:45 PM EST Inhaled Oxygen Concentration - - [...] closest emergency room or call the hospital box blank machine operator at [phone] and ask for physician animated cartoons painter covering for your physician. Questions or problems after 5pm or on a weekend: Call the [facility] box blank machine operator at and ask for the physician animated cartoons painter covering for your doctor. SCOPOLAMINE PATCH DISCHARGE [...] During clinic hours M-F 8-4:30 please call [phone] If it is after 5:00PM on a weekday or a weekend and it is of an urgent nature please call [phone] and ask for the on-call orthopaedic resident. [...] Center 05/06/2022 3:30 PM Jossy Yancey APRN [facility] HEM ONC [facility] 05/12/2022 10:00 AM Silas Abbasi MD [facility] ORTH 3A [facility] 06/18/2022 3:00 PM LABORATORY, TECH [facility] INF 3K [facility] 06/18/2022 4:00 PM Tyra Cornejo MD [facility] HEM ONC [facility] 02/09/2023 11:00 AM Dafne Dykes, PhD [facility] PSY 5D Behavioral H 02/16/2023 11:00 AM Dafne Dykes, PhD [facility] PSY 5D Behavioral H documented in this [...] 04/18/2021 06/18/2022 Miscellaneous Medical Supply Misc [place] [facility]Non-[place]; Combo Route) route. Remedy Phytoplex Moisturizer. Apply [...] Operative Note Patient Name: Alis Silva : [id number] MR#: [id number] Case Date: 04/29/2022 Surgeon: Surgeon(s) and Role: [...] Abbasi MD - 04/29/2022 11:30 AM EST [facility] Operative Note Patient Name: Alis Silva : [id number] MR#: [id number] Case Date: 04/29/2022 Surgeon: Surgeon(s) and Role: [...] A preoperative timeout was performed as per [facility] protocol. 5 cc of 2% lidocaine was [...] PM EDT Office Visit Radiation Oncology at [address] [phone] Eleonora Mensah MD [facility] [place] [address] documented as of this encounter Procedures Procedure Name Priority Date/Time Associated Diagnosis Comments SURGICAL PATHOLOGY REPORT Routine 04/29/2022 11:41 AM EST SPECIMEN TO PATHOLOGY Routine 04/29/2022 11:41 AM EST Excision Lesion Tendon Sheath Or Jt Capsule, Hand Or Finger (35074) 04/29/2022 11:08 AM EST Subcutaneous mass of finger of right hand EXCISION LESION TENDON SHEATH OR JOINT CAPSULE, HAND OR FINGER Routine 04/29/2022 9:30 AM EST Subcutaneous mass of finger of right hand documented in this encounter Results * Surgical Pathology Report (04/29/2022 11:41 AM EST) Final Diagnosis [id number] ? Location: [facility] The signing pathologist has (i) examined the relevant preparation(s) for the specimen(s) and (ii) rendered or confirmed the diagnosis(es). . ?Surgical Pathology DIAGNOSIS A - Flexor ??sheath, right long finger, excision: - Ganglion cyst Electronically signed by: ?Tono CRAFT, PhD, Mervin Cespedes Verified: ??05/01/2022 9:21 ?? Dermatopathologist , Bone & Soft Tissue Pathologist Performed at: ??-[facility] Dept. of Pathology, [place] [address] [id number] Technical Lead: Tray Rao MD, FCAP, ??CLIA Certificate: [id number] SPECIMEN(S) SUBMITTED A - Flexor ??sheath ganglion, right long finger, excision (1) CLINICAL INFORMATION Mucous cyst SPECIMEN PROCESSING A - Labeled/Fixative: Flexor sheath ganglion, right long finger, formalin. Quantity/Size: Single, 1.4 x 0.6 x 0.5 cm. Tissue Description: Dominguez-pink fibromembranous portion of soft tissue. Sections/Processin g: Bisected and entirely submitted in 1 cassette labeled A1. ??nrl 05/01/2022 9:21 AM EST [facility] GANGLION CYST / Unknown 04/29/2022 11:41 AM EST 04/29/2022 11:41 AM EST Silas Abbasi MD PATHOLOGY/CYTOLOGY O ROGELIO Performing Organization Address City/[facility]/ZIP Co de Phone Number [facility] [address] [place] [address] * Specimen to Pathology (04/29/2022 11:41 AM EST) AP Specimen 04/29/2022 11:4 1 AM EST 04/29/2022 11:41 AM EST Narrative [facility] - 04/29/2022 11:41 AM EST Specimen requisition ordered. ??Separate Pathology report to follow Silas Abbasi MD PATHOLOGY/CYTOLOGY O ROGELIO [facility] [place] [address] documented in this encounter Visit Diagnoses Diagnosis [...] Day of Surgery (Day of Procedure), Routine naloxone (Narcan) (0.4 mg/mL) injection 0.04 mg [...] Routine documented in this encounter Care Teams Movie Shot Cameraman Relationship Specialty Start Date End Date Charleen Williamson, IVY [address] [place] [address] PCP - General Family Medicine 06/29/20 documented as of this encounter
--- OUTSIDE RECORDS SUMMARY | 2024-05-09 13:56 | XMS_ITS | Encounter Summary ---
Author Organization [facility] Address [facility] [place] [address] Care Team Providers Care Section Crews Activities Clerk Name Role Phone Charleen Williamson APRN Primary Care Provider [phone] [phone] Encounter Details Date Type Department Care Team (Latest Contact Info) Description 03/30/2022 Travel Social History Tobacco Use Types Packs/Day [...] PM EDT Office Visit Radiation Oncology at [address] [phone] Eleonora Mensah MD [facility] [place] [address] documented as of this encounter Visit Diagnoses Not on filedocumented in this encounter Care Teams Section Crews Activities Clerk Relationship Specialty Start Date End Date Charleen Williamson APRN [address] [place] [address] PCP - General Family Medicine 06/29/20 documented as of this encounter
--- OUTSIDE RECORDS SUMMARY | 2024-05-09 13:56 | XMS_ITS | Encounter Summary ---
Author Organization [facility] Address [facility] [place] [address] Care Team Providers Care Butter Maker Name Role Phone Charleen Williamson APRN Primary Care Provider [phone] [phone] Encounter Details Date Type Department Care Team (Late st Contact Info) Description 04/01/2022 3:30 PM EST TH Visit (TeleHealth) Hematology [place] [id number] Jossy Yancey SUPERVISOR OF RESEARCH [facility] [place] [address] Current moderate episode of major depressive disorder [...] Progress Notes * Jossy Yancey APRN - 04/01/2022 3:30 PM EST PSYCHIATRY CONSULTATION AT [facility] FOLLOW UP Time Spent: 25 minutes Location: Alis located in her home in [place] via telephone due to technological issues Attendee(s): Jossy Snell APRN HISTORY Patient Identification: [...] mg and reports the following that she's 'good'. Feels that being done with one oncologic medication has been helpful. Denies side effects that are concerning. Feels her mood has improved and overall sustained with less irritability. Holiday was good at family camp with immediate family to celebrate. Looking towards adoption/gestational carrier and wondering what options there are. Sleep at nighttime-'for the most part okay'. Denies overt anxiety. Denies SI/HI. Pertinent Medication [...] Outpatient Medications Medication Sig Dispense Refill ??? sertraline HCl (SERTRALINE ORAL) Take 150 [...] 3 ??? Miscellaneous Medical Supply Misc by [facility].(Non-Drug; Combo Route) route. Remedy Phytoplex Moisturizer. Apply [...] attempts ?? DEVELOPMENTAL/PSYCHOSOCIAL HISTORY: Currently lives in [place], [place] with her Elmer Relationship status: . [...] ?? 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 Trauma/Abuse History: not reviewed EXAM Constitutional [...] ? Language: normal ? Fund of Knowledge: security representative of education level MEDICAL DECISION MAKING ; ASSESSMENT: Alis Silva is a 31 y.o. Female with symptoms of MDD and anxiety, both likely exacerbated by ovarian suppression. We will continue Zoloft at 150 mg as mood continues to be overall positively sustained. Though we have room to increase towards 200 mg Alis has not been at this therapeutic dose for very long and appears to be benefiting from our changes. We discuss likely transition to PCP after our next visit, which she is agreeable to. RECOMMENDATIONS/PLAN ?? Safety: SI/HI denied; reviewed office and emergency contact info. Crisis line is [phone] ?? Medications: Zoloft 150 mg ?? Additional treatment recommendations: Continue with Sahron as scheduled ?? FOLLOW-UP CARE: 1. Follow up care planned for: May 06 3:30 video 3. Pt is aware is [...] further on this case. Jossy Yancey APRN 04/01/2022 documented in this encounter Plan of Treatment Upcoming Encounters Date Type Department Care Team (Late st Contact Info) Description 02/13/2025 1:00 PM EDT Office Visit Radiation Oncology at [address] [phone] Eleonora Mensah MD [facility] [place] [address] documented as of this encounter Visit Diagnoses Diagnosis Current moderate episode of major depressive disorder without prior episode- Primary HER2-positive carcinoma of right breast documented in this encounter Care Teams Butter Maker Relationship Specialty Start Date End Date Charleen Williamson APRN [address] [place] [address] PCP - General Family Medicine 06/29/20 documented as of this encounter
--- OUTSIDE RECORDS SUMMARY | 2024-05-09 13:56 | XMS_ITS | Encounter Summary ---
Author Organization [facility] Address [facility] [place] [address] Care Team Providers Care Business Account Executive Name Role Phone Charleen Williamson APRN Primary Care Provider [phone] [phone] Reason for Visit * Reason Comments Follow-up Encounter Details Date Type Department Care Team (Late st Contact Info) Description 02/10/2022 4:00 PM EDT Office Visit Radiation Oncology at [address] [phone] Eleonora Mensah MD [facility] [place] [address] S/P radiotherapy Social History Tobacco Use Types [...] Sign Reading Time Taken Comments Blood Pressure 132/82 02/10/2022 4:08 PM EDT Pulse 78 02/10/2022 4:08 PM EDT Temperature 36.6 ??C (97.8 ??F) 02/10/2022 4 :08 PM EDT Respiratory Rate 18 02/10/2022 4:08 PM EDT Oxygen Saturation 99% 02/10/2022 4:0 8 PM EDT Inhaled Oxygen Concentration - - Weight 80.6 kg (177 lb 12.8 oz) 022 4:08 PM EDT with shoes Height - - Body Mass Index 25.57 01/29/2022 7:51 AM EDT documented in this encounter Patient Instructions * Patient Instructions* Eleonora Mensah MD - 02/10/2022 4:00 PM EDT Alis Roblero. Since your appointment, I've been wondering if physical therapy might help decrease the swelling inyour right hand. It might be worthwhile for you to see one of the physical therapists @ who specializes in treating lymphedema, for @ least 1 visit. Would you like me to place a referral? Someone will contact you to schedule followup in 1 year. Eleonora documented in this encounter Progress Notes * Eleonora Mensah MD - 02/10/2022 4:00 PM EDT Images from the original note were not included. CC: Scheduled followup s/p xrt completion. HPI: Alis is a 31 y/o f who completed xrt 8 mos ago (06/03/21) for breast ca, R, invasive ca w/ductal &??lobular features, gr 2, ER+MA+, Her2+, cT3 cN1, s/p neoadjuvant TCHP, followed by R mastectomy w/NLOC excision clipped R axillary lymph node, unsuccessful SNB, ypT1b(m) ypN1mi, +LVI. ??Randomized on [id number] to ax dissxn, removing 13 lymph nodes, all neg. ??Xrt off protocol. ??Adjuvant TDM-1 concomitant w/xrt. ??Cabrera & goserelin started after xrt completion. 06/12/21 Dr. Cornejo, possible q 3 wk dosing of goserelin, continue TDM-1, start cabrera. 01/29/22 TDM-1. 08/15/21 L mmg: Focal asymmetry L breast. [...] needed, consider radiographs of the right-sided ribs. Subjective: Lymphedema R hand managed w/compression glove. Degree of lymphedema varies w/how much she is using R hand. 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 Does not notice any arm lymphedema. Accompanied by . History reviewed. No pertinent past medical history. No lupus/scleroderma. Past Surgical History: Procedure Laterality Date ??? IR MEDIPORT PLACEMENT 07/23/2020 IR Mediport Placement [facility] INTERVENTIONL RAD ??? MAMMO US BIOPSY LYMPH NODE RIGHT Right 06/29/2020 Mammo US Biopsy Lymph Node Right 06/29/2020 Danni Osuna MD [facility] RAD MAMMOGRAPHY ??? MAMMO US BIOPSY RIGHT Right 06/29/2020 Mammo Us Biopsy Right 06/29/2020 Danni Osuna MD [facility] RAD MAMMOGRAPHY ??? MAMMO US NEEDLE LOCALIZATION RIGHT Right 01/03/2021 Mammo US Needle Localization Right 01/03/2021 Mili Burgos MD [facility] RAD MAMMOGRAPHY ??? MRI GUIDED BIOPSY BREAST VACUUM ASSISTED LEFT Left 07/18/2020 MRI Guided Biopsy Breast Vacuum Assisted Left 07/18/2020 [facility] RAD MRI ??? PRO BX/REMV, LYMPH NODE, DEEP AXILL Right 01/03/2021 BIOPSY OR EXCISION OF LYMPH NODE(S), OPEN, DEEP AXILLARY NODE(S) (WRVU 6.43) performed by Eulalio Hunt MD at [facility] MAIN OR ??? PRO EXCISE BREAST LES W XRAY MARKER Right 01/03/2021 EXCISION LESION, BREAST W/ PREOP.MARKER (NEEDLE LOC.) (WRVU 6.69) performed by Eulalio Hunt MDat [facility] MAIN OR ??? PRO INTRAOP SENTINEL LYMPH ID W/DYE INJECTION Right 01/03/2021 INTRAOPERATIVE ID (MAPPING) SENTINEL LYMPH NODE,INCLUDES INJECTION (WRVU 2.5) performed by Eulalio Hunt MD at [facility] MAIN OR ??? PRO MASTECTOMY, SIMPLE, COMPLETE Right 01/03/2021 MASTECTOMY, SIMPLE, COMPLETE (WRVU 15.85) performed by Eulalio Hunt MD at [facility] MAIN OR ??? PRO REMOVE ARMPITS LYMPH NODES COMPLT Right 01/28/2021 LYMPHADENECTOMY, AXILLARY, COMPLETE (WRVU 13.87) performed by Eulalio Hunt MD at [facility] OSC Oral surgery Your Medications Accurate as of February 10, 2022 4:19 PM. If you have any questions, ask your nurse or doctor. Continued medications with new dosing Dose Details acetaminophen 500 mg Tab Commonly known as: Tylenol Take 2 tablets by mouth every 6 hours. What changed: ?? when to take this ?? reasons to take this 1,000 mg Quantity: 30 tablet Refills: 1 diclofenac 1 % Gel Commonly known as: Voltaren Apply 2 g to each affected area up to 4 times daily; maximum dose per joint: 8 g/day; maximum totalbody dose (all combined joints): 32 g/day. What changed: ?? when to take this ?? reasons to take this Quantity: 200 g Refills: 0 Continued medications, unchanged Dose Details hydrOXYzine 10 mg Tab Commonly known as: Atarax TAKE 1 TO 2 TABLETS BY MOUTH EVERY 8 HOURS NEEDED FOR ANXIETY Refills: 0 ibuprofen 600 mg Tab Commonly known as: Advil Take 1 tablet by mouth every 6 hours. 600 mg Quantity: 30 tablet Refills: 12 lactobacillus rhamnosus (GG) 10 billion cell Cap Commonly known as: CULTURELLE Take 1 capsule by mouth daily. 1 capsule Refills: 0 lidocaine 2 % Jell Commonly known as: Xylocaine Apply topically to anal fissure as needed for pain relief. Do not use more than 30 mL in a 24-hr period. Quantity: 30 mL Refills: 2 lidocaine-prilocaine Crea Commonly known as: EMLA APPLY A THINK LAYER OF CREAM TO DESIGNATED SITE OF INTACT SKIN 60 MINUTES PRIOR TO ACCESING PORT. COVER SITE WITH OCCLUSIVE DRESSING. Quantity: 30 g Refills: 1 melatonin 5 mg Tab Take by mouth nightly. Refills: 0 meloxicam 7.5 mg Tab Commonly known as: MOBIC Take 1 tablet by mouth daily. May increase to 2 tablets daily if needed. 7.5 mg Quantity: 60 tablet Refills: 5 Miscellaneous Medical Supply Misc by [facility].(Non-Drug; Combo Route) route. Remedy Phytoplex Moisturizer. Apply to area of radiation twice a day but no less than 2 hours before a treatment. Refills: 0 NAC 600 mg Tab Take 600 mg by mouth 2 times daily. Generic drug: acetylcysteine 600 mg Refills: 0 omeprazole 40 mg Cpdr Commonly known as: PriLOSEC Take 40 mg by mouth daily. 40 mg Refills: 0 ondansetron ODT 4 mg Tbdl Commonly known as: Zofran-ODT Take 4 mg by mouth as needed. 4 mg Refills: 0 prochlorperazine 10 mg Tab Commonly known as: Compazine Take 1 tablet by mouth every 6 hours as needed for Nausea. 10 mg Quantity: 15 tablet Refills: 0 propranoloL 20 mg Tab Commonly known as: Inderal Take 20 mg by mouth 2 times daily. 20 mg Refills: 0 SERTRALINE ORAL Take 150 mg by mouth. 150 mg Refills: 0 tamoxifen 20 mg Tab Commonly known as: NOLVADEX Take 1 tablet by mouth daily. 20 mg Quantity: 90 tablet Refills: 3 traZODone 50 mg Tab Commonly known as: Desyrel Take 3 tablets by mouth nightly. 150 mg Quantity: 90 tablet Refills: 3 Physical Exam Constitutional: General: She is not in acute distress. Comments: BP 132/82 (Patient Position: Sitting) Pulse 78 Temp 36.6 ??C (97.8 ??F) (Temporal) Resp 18 Wt 80.6 kg (177 lb 12.8 oz) Comment: with shoes SpO2 99% BMI 25.57 kg/m?? HENT: Head: Normocephalic. Eyes: General: No scleral icterus. Right eye: No discharge. Left eye: No discharge. Extraocular Movements: Extraocular movements intact. Conjunctiva/sclera: Conjunctivae normal. Pulmonary: Effort: Pulmonary effort is normal. No respiratory distress. Breath sounds: No stridor. Comments: S/p R mastectomy. Minimal hyperpigmentation R chest wall, consistent w/post xrt change. No visible/palpable ca on R chest wall. Chest: Breasts: Right: No axillary adenopathy or supraclavicular adenopathy. Left: No inverted nipple, mass, nipple discharge, skin change, tenderness, axillary adenopathy or supraclavicular adenopathy. Abdominal: General: There is no distension. Palpations: [...] 2. Mild lymphedema dorsal R hand. P: Consider PT for R hand. Rtc [address] Hunt w/L mmg July. 20 mins encounter. ?? documented in this encounter Plan of Treatment Upcoming Encounters Date Type Department Care Team (Late st Contact Info) Description 02/13/2025 1:00 PM EDT Office Visit Radiation Oncology at [address] [phone] Eleonora Mensah MD [facility] [place] [address] documented as of this encounter Visit Diagnoses Diagnosis S/P radiotherapy Convalescence following radiotherapy documented in this encounter Care Teams Business Account Executive Relationship Specialty Start Date End Date Charleen Williamson APRN [address] [place] [address] PCP - General Family Medicine 06/29/20 documented as of this encounter
--- OUTSIDE RECORDS SUMMARY | 2024-05-09 13:56 | XMS_ITS | Encounter Summary ---
[place] [address] Care Team Providers Care Java Programmer Analyst Name Role Phone Charleen Williamson APRN Primary Care Provider [phone] [phone] Reason for Referral * Diagnostic Test (Routine) - Closed Specialty Diagnoses / Procedures Referred By Contac t Referred To Contact Radiology Diagnoses Subcutaneous mass of finger of right hand Procedures MRI Hand wwo Contrast Right MRI Hand wo Contrast Right Ching Bone PA [facility] [place] [address] [place] [address] Referral ID Status Reason Start Date Expiration Date V isits Requested Visits Authorized [id number] Closed Specialty Service Requested 01/24/2022 07/25/2023 1 1 Reason for Visit * Reason Comments Establish Care * Consultation (Routine) - Closed Specialty Diagnoses / Procedures Referred By Contac t Referred To Contact Orthopaedics Diagnoses Right hand pain Tyra Cornejo MD [facility] [address] [place] [address] [facility] [address] [place] [phone] Referral ID Status Reason Start Date Expiration Date V isits Requested Visits Authorized [id number] Closed Consult, Test & Treat 12/18/2021 12/18/2022 1 1 Encounter Details Date Type Department Care Team (Late st Contact Info) Description 01/24/2022 2:30 PM EDT Office Visit Orthopaedics at [facility] [place] [phone] Ching Bone PA [facility] DR ORTHOPAEDIC [place] [address] Subcutaneous mass of finger of right hand Social History Tobacco Use Types Packs/Day Years [...] Sign Reading Time Taken Comments Blood Pressure 129/75 01/24/2022 2:27 PM EDT Pulse 82 01/24/2022 2:27 PM EDT Temperature - - Respiratory Rate - - Oxygen Saturation - - Inhaled Oxygen Concentration - - Weight 80.3 kg (177 lb) 01/24/2022 2:27 PM EDT Height 172.7 cm (5' 8) 01/24/2022 2:27 PM EDT Body Mass Index 26.91 01/24/2022 2:27 PM EDT documented in this encounter Progress Notes * Ching Bone PA - 01/24/2022 2:30 PM EDT PATIENT NAME: Alis Silva AGE: 31 y.o. MR#: [id number] DATE OF VISIT: 01/24/2022 DATE OF INJURY/ONSET: couple years CHIEF COMPLAINT: Right hand pain HISTORY OF PRESENT ILLNESS: Ms. Silva is a right hand dominant 31 y.o. female who comes into clinic today for evaluation of the right hand. The patient has a history significant for breast cancer with arm lymphedema. 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 She reports right middle finger pain located over the volar aspect of the MP joint worse with driving and gripping. No numbness. She denies triggering. Medications and Allergies were reviewed in eD-H PAST MEDICAL HX: No past medical history on file. PAST SURGICAL HX: Past Surgical History: Procedure Laterality Date ??? IR MEDIPORT PLACEMENT 07/23/2020 IR Mediport Placement [facility] INTERVENTIONL RAD ??? MAMMO US BIOPSY LYMPH NODE RIGHT Right 06/29/2020 Mammo US Biopsy Lymph Node Right 06/29/2020 Danni Osuna MD [facility] RAD MAMMOGRAPHY ??? MAMMO US BIOPSY RIGHT Right 06/29/2020 Mammo Us Biopsy Right 06/29/2020 Danni Osuna MD [facility] RAD MAMMOGRAPHY ??? MAMMO US NEEDLE LOCALIZATION RIGHT Right 01/03/2021 Mammo US Needle Localization Right 01/03/2021 Mili Burgos MD [facility] RAD MAMMOGRAPHY ??? MRI GUIDED BIOPSY BREAST VACUUM ASSISTED LEFT Left 07/18/2020 MRI Guided Biopsy Breast Vacuum Assisted Left 07/18/2020 [facility] RAD MRI ??? PRO BX/REMV, LYMPH NODE, DEEP AXILL Right 01/03/2021 BIOPSY OR EXCISION OF LYMPH NODE(S), OPEN, DEEP AXILLARY NODE(S) (WRVU 6.43) performed by Eulalio Hunt MD at [facility] MAIN OR ??? PRO EXCISE BREAST LES W XRAY MARKER Right 01/03/2021 EXCISION LESION, BREAST W/ PREOP.MARKER (NEEDLE LOC.) (WRVU 6.69) performed by Eulalio Hunt MDat [facility] MAIN OR ??? PRO INTRAOP SENTINEL LYMPH ID W/DYE INJECTION Right 01/03/2021 INTRAOPERATIVE ID (MAPPING) SENTINEL LYMPH NODE,INCLUDES INJECTION (WRVU 2.5) performed by Eulalio Hunt MD at [facility] MAIN OR ??? PRO MASTECTOMY, SIMPLE, COMPLETE Right 01/03/2021 MASTECTOMY, SIMPLE, COMPLETE (WRVU 15.85) performed by Eulalio Hunt MD at [facility] MAIN OR ??? PRO REMOVE ARMPITS LYMPH NODES COMPLT Right 01/28/2021 LYMPHADENECTOMY, AXILLARY, COMPLETE (WRVU 13.87) performed by Eulalio Hunt MD at [facility] OSC FAMILY HX: Family History Problem Relation Age of Onset ??? Breast Cancer Paternal Grandmother 83 's ??? Ovarian Cancer Paternal Aunt 50 's (around 2010) ??? Uterine Cancer Paternal Aunt 50 SOCIAL HX: Social History Occupational History ??? Not on file Tobacco Use ??? Smoking status: Never Smoker ??? Smokeless tobacco: Never Used Vaping Use ??? Vaping Use: Never used Substance and Sexual Activity ??? Alcohol use: Not Currently ??? Drug use: Never ??? Sexual activity: Not on file ROS: Constitutional: Denies fevers, chills Respiratory: Denies shortness of breath, cough Cardiac: Denies chest pain, palpitations GI: denies abdominal pain, nausea, vomiting Skin: Denies new rashes or lesions Neuro: no numbness Musculoskeletal: as above in HPI General Health, Prior Treatments, PreExisting Condition, Health Habits, About You 01/22/2022 PROMIS-10 General Health Good PROMIS-10 Quality of Life Fair PROMIS-10 Physical Health Good PROMIS-10 Mental Health Fair PROMIS-10 Social Activity Fair PROMIS-10 Everyday Activities Mostly PROMIS-10 Pain 5 PROMIS-10 Fatigue Moderate PROMIS-10 Social Roles Good PROMIS-10 Anxious or Depressed Sometimes PROMIS PHYSICAL SCORE (range 16-68) 42.3 PROMIS MENTAL SCORE (range 21-68) 36.3 Treatments Tried Acetaminophen (e.g. Tylenol), Over the counter anti- inflammatory drugs (e.g Advil,Aspirin, Aleve) Alzheimers or dementia No Cirrohosis or liver disease No HIV/AIDS No Pain in more than one joint in legs No Back or neck pain Yes Heart attack No Heart failure No Unclog/bypass leg arteries No Stroke, blood clot, TIA No Asthma No Emphysema, chronic bronchities, or COPD No Stomach ulcers/peptic ulcer disease No Diabetes No Poor kidney function No Rheumatic condtions No Cancer Yes Cancer spread No Leukemia or polycythemia vera No Lymphoma No Weight (lbs) 177 Height (feet) 5 feet Height (Inches) 8 BMI 26.91 (Overweight) Ever used tobacco products No Ever used alcoholic beverages Yes Alcohol frequency Never WHO - Alcohol Advice 0 (You are at low risk of health and other problems from your current pattern of use.) Live Alone No Marital situation Schooling 4 - year college Combined Household Income Less than $10,000 # People Supported 2 Slovak, , No, not Slovak// Race White Health Literacy Extremely Currently working Yes Current job situation Part-time due to health Employment status before injury Currently working Returned to previous employment Yes Working at same capacity as before injury No Spending time in inpatient rehab facility No Rate overall condition today 7 PHYSICAL EXAM: Ms. Silva is a 31 y.o. female General appearance: in no acute distress, alert, cooperative Psych: cooperative with exam, appropriate Head: normocephalic, atraumatic EENT: EOMI grossly intact Neck: supple, trachea midline Cardiac: regular rate and rhythm by peripheral pulse Lungs: non-labored respirations Musculoskeletal: RUE ??? Inspection: Lymphedema of right hand ??? Palpation: Minimally TTP over palmar aspect of middle finger MP joint with palpable mass. No triggering. ??? ROM: Full finger ROM. ??? Neurovascular: SGILT R/M/U/Ax nerve distributions; AIN/PIN/U nerves fire; 2+ radial pulse DIAGNOSTIC STUDIES: Right hand XR were personally reviewed and demonstrate preserved anatomic alignment without evidence of fracture or dislocation ASSESSMENT: Right hand mass, likely cyst coming from MP joint versus flexor sheath ganglion versus other mass PLAN: - The patient was counseled that she likely has a flexor sheath ganglion of the right middle finger. She was counseled that we recommend a right hand MRI for further evaluation of the etiology. She will avoid activities that aggravate her symptoms. She was counseled that if this is indeed a ganglion cyst then we would recommend either observation versus surgical excision. - She will return for follow up after MRI for results review. - The patient understands to contact us if they have any other questions or concerns. Ching Bone PA-C Department of Orthopaedics [facility] documented in this encounter Plan of Treatment Upcoming Encounters Date Type Department Care Team (Late st Contact Info) Description 02/13/2025 1:00 PM EDT Office Visit Radiation Oncology at [address] [phone] Eleonora Mensah MD [facility] [place] [address] documented as of this encounter Results * MRI Hand wwo [...] who have questions please contact the health ocular care aide that requested your imaging first. ? Narrative 02/12/2022 10:12 AM EDT EXAMINATION: MRI [...] patients who have questions please contactthe health ocular care aide that requested your imaging first. Electronically signed by: Sheryl Carvajal MD, [facility]([phone]), at 02/12/2022 10:12 AM Yoshi Abbasi MD IMG MRI ORDERABLES documented in this encounter Visit Diagnoses Diagnosis Subcutaneous mass of finger of right hand Subcutaneous mass of finger of right hand documented in this encounter Care Teams Java Programmer Analyst Relationship Specialty Start Date End Date Charleen Williamson APRN [address] [place] [address] PCP - General Family Medicine 06/29/20 documented as of this encounter
--- OUTSIDE RECORDS SUMMARY | 2024-05-09 13:56 | XMS_ITS | Encounter Summary ---
[facility] [place] [address] Care Team Providers Care Inventory Administrator Name Role Phone Charleen Williamson APRN Primary Care Provider [phone] [phone] Reason for Visit * Treatment/Therapy Plan Authorization (Routine) - Closed Specialty Diagnoses / Procedures Referred By Contac t Referred To Contact Diagnoses 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, estrogen receptor positive Procedures INJ, ADO-TRASTUZUMAB EMT 1MG TC GOSERELIN ACETATE IMPLANT, 3.6MG (ZOLADEX) TC PALONOSETRON HCL, 25MCG, INJECTION (ALOXI) Tyra Cornejo MD [facility] [address] HEMATOLOGY [place] [address] [facility] Hem Onc Office [address] [place] [phone] Referral ID Status Reason Start Date Expiration Date Visits Re quested Visits Authorized [id number] Closed 03/01/2021 04/26/2022 99 99 Encounter Details Date Type Department Care Team (Latest Contact Info) Description 01/29/2022 6:52 AM EDT Hospital Encounter Hematology [place] [address] Malignant neoplasm of overlapping sites of right [...] 04/18/2021 06/18/2022 Miscellaneous Medical Supply Misc by [employer].(Non-Drug; Combo Route) route. Remedy Phytoplex Moisturizer. Apply [...] of this encounter Progress Notes * Jossy Ghotra RN - 01/29/2022 7:14 AM EDT Patient Name: Alis Silva Patient Age: 31 y.o. Birthdate: 1990 Admit date: 01/29/2022 Attending Physician: No att. providers found Access visit. See MAR and/or flowsheet. documented in this encounter Plan of Treatment Upcoming Encounters Date Type Department Care Team (Late st Contact Info) Description 02/13/2025 1:00 PM EDT Office Visit Radiation Oncology at [address] [phone] Eleonora Mensah MD [facility] [address] [place] [address] documented as of this encounter Procedures Procedure Name Priority Date/Time Associated Diagnosis Comments HEMOGRAM STAT 01/29/2022 7:10 AM EDT 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, estrogen receptor positive DIFFERENTIAL, AUTOMATED STAT 01/29/2022 7:10 AM EDT 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, estrogen receptor positive HC CBC,PLT & AUTO DIFF STAT 7:10 AM EDT 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, estrogen receptor positive COMPREHENSIVE METABOLIC PANEL STAT 01/29/2022 7:10 AM EDT 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, estrogen receptor positive documented in this encounter Results * Differential, Automated (01/29/2022 7:10 AM EDT) Neutrophil % 60.8 % [facility] Neutrophil Absolute 4.05 1.70 - 6.10 x10(3)/[facility] Lymph % 25.6 % [facility] Lymphocytes Abs 1.7 0.9 - 3.2 x10(3)/[facility] Monocyte % 10.7 % [facility] Monocyte Abs 0.7 0.3 - 0.9 x10(3)/[facility] Eos % 1.7 % [facility] Eosinophils Abs 0.1 0.0 - 0.4 x10(3)/[facility] Basophil % 0.9 % [facility] Baso Absolute 0.1 0.0 - 0.1 x10(3)/[facility] Immature Gran % 0.30 % [facility] Comment: Immature granulocytes(IG's)percentage and absolute count will include metamyelocytes, myelocytes, and promyelocytes. Blood smears from CBCs yielding IG's will be scanned manually for concordance. If this scan disagrees with the automated IG or if promyelocytes are noted, a manual differential will be performed. Immature Gran Absolute 0.02 0.00 - 0.04 x10(3)/[facility] Blood 01/29/2022 7:10 AM EDT 01/29/2022 7:25 AM EDT Narrative Resulting Agency Comment Spec In Lab Tyra Cornejo MD HEMATOLOGY ORDERABL ES [facility] [address] * (ABNORMAL) Hemogram (01/29/2022 7:10 AM EDT) White Blood Cell 6.6 4.0 - 9.5 x10(3)/mc L [facility] Red Blood Cell 3.74(L) 4.00 - 5.21 x10(6)/ L [facility] Hemoglobin 11.5(L) 11.7 - 15.5 g/dL [facility] Hematocrit 32.7(L) 35.7 - 45.8 % [facility] Mean Cell Volume 87.4 82.6 - 94.[address] [facility] Mean Cell Hemoglobin 30.7 27.1 - 32.[address] [facility] Mean Cell Hemoglobin Concentration 35.2(H) 31.7 - 35.0 g/dL [facility] Platelet 72(L) 145 - 357 x10(3)/mc L [facility] RDW Standard Deviation 38.5 37.0 - 46.[address] [facility] RDW coefficient of variation 12.0 11.5 - 14.1 % [facility] Mean Platelet Volume 9.2 7.6 - 12.9 [facility] NRBC% auto 0.0 % [facility] NRBC Absolute 0.000 0.000 - 0.000 x10(3)/mc L [facility] Blood 01/29/2022 7:10 AM EDT 01/29/2022 7:25 AM EDT Narrative Resulting Agency Comment Spec In Lab Tyra Cornejo MD HEMATOLOGY ORDERABL ES [facility] [place] [address] * (ABNORMAL) Comprehensive metabolic panel (non-fasting) (01/29/2022 7:10 AM EDT) Glucose 106 65 - 199 mg/dL [facility] Comment:Diabetes: >=200 mg/d L plus symptoms Blood Urea Nitrogen 18 8 - 18 mg/dL [facility] Creatinine 0.80 0.70 - 1.20 mg/dL [facility] Sodium 138 135 - 145 mmol/L [facility] Potassium 3.9 3.5 - 5.0 mmol/L [facility] Comment: Please note: ??Patients with WBC >100,000 may have falsely elevated Potassium levels. ??For accurate Potassium quantification in these patients send serum separator tube (gold top) for subsequent determinations. ??Contact the Clinical Chemistry Laboratory if there are any questions. Chloride 102 98 - 107 mmol/L [facility] Carbon Dioxide 28 22 - 31 mmol/L [facility] Anion Gap 8 5 - 15 mmol/L [facility] Calcium 9.6 8.5 - 10.5 mg/dL [facility] Protein, Total 8.0 6.1 - 8.0 g/dL [facility] Albumin 4.2 3.2 - 5.2 g/dL [facility] Aspartate Aminotransferase 33(H) 0 - 30 unit/L [facility] Alanine Aminotransferase 22 0 - 30 unit/L [facility] Alkaline Phosphatase 62 35 - 105 unit/L [facility] Bilirubin, Total 0.2 0.2 - 1.3 mg/dL [facility] Est Glomerular Filtration Rate 102 >=60 mL/min/1. 73 m?? [facility] Comment: This patient's estimated GFR was calculated using the 2020 CKD-EPI equation. The estimated GFR can vary from the measured GFR by up to 30% in the absence of rapidly changing kidney function. Assessment of the estimated GFR is not appropriate when creatinine concentrations are rapidly changing. For clinical situations in which a more precise estimate of GFR is necessary, consider alternative methods of GFR estimation such as a 24-hour urine creatinine clearance. Assignment of CKD stage 1-5 for patients with an eGFR near the transition point between stages may be based on clinical assessment of muscle mass and symptoms in addition to eGFR. Blood 01/29/2022 7:10 AM EDT 01/29/2022 7:25 AM EDT Narrative Resulting Agency Comment Spec In Lab Tyra Cornejo MD CHEMISTRY ORDERABLE S [facility] [place] [address] documented in this encounter Visit Diagnoses Diagnosis 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, estrogen receptor positive documented in this encounter Administered Medications Inactive Administered Medications - up to 3 most recent administrations Medication Order MAR Action Action Date Dose Rate Site sodium chloride 0.9 % (flush) (BD PosiFlush Normal Saline 0.9) flush 5-20 mL 5-20 mL, Intravenous, EVERY 1 MIN PRN, Starting on 01/29/22 at 0653, Until Alannah 01/30/22 at 0434, Line Care, Flush pertains to all indwelling lines. Flush per protocol found in the job aid using the link provided on this medication record. Refer to Intravenous (IV) Job Aid: Adult Flushing & Catheter Care (3239) job aid for additional information regarding guidelines and administration., Routine Given 01/29/2022 9:50 AM EDT 20 mLs Given 01/29/2022 7:12 AM EDT 20 mLs documented in this encounter Care Teams Inventory Administrator Relationship Specialty Start Date End Date Charleen Williamson APRN [address] [place] [address] PCP - General Family Medicine 06/29/20 documented as of this encounter
--- OUTSIDE RECORDS SUMMARY | 2024-05-09 13:56 | XMS_ITS | Encounter Summary ---
Author Organization [facility] Address [facility] [place] [address] Care Team Providers Care Coil Cutter Name Role Phone Charleen Williamson APRN Primary Care Provider [phone] [phone] Encounter Details Date Type Department Care Team (Latest Contact Info) Description 04/02/2022 10:00 AM EST TH Visit (TeleHealth) Psychiatry [place] [phone] Dafne Dykes, PhD [facility] [place] [address] Cognitive decline; Depression, unspecified depression type; Malignant [...] place to sleep or slept in a snf (including now)? No 04/23/2021 Sex and Gender Information Value Date Recorded Sex Assigned at Female 07/19/2020 8:39 AM EDT Gender Identity Female 08/04/2022 1:11 PM EDT Sexual Orientation Straight 08/04/2022 1: 11 PM EDT documented as of this encounter Progress Notes * Dafne Dykes, PhD - 04/02/2022 10:00 AM EST Neuropsychology Feedback Note. I spoke with Ms. Silva to review her neuropsychological test results and recommendations. She demonstrated a good understanding of the information. 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
--- OUTSIDE RECORDS SUMMARY | 2024-05-09 13:56 | XMS_ITS | Encounter Summary ---
Author Organization [facility] Address [facility] [place] [address] Care Team Providers Care Accounting Manager Controller Name Role Phone Charleen Williamson APRN Primary Care Provider [phone] [phone] Encounter Details Date Type Department Care Team (Latest Contact Info) Description 03/18/2022 Travel Social History Tobacco Use Types Packs/Day [...] EDT Office Visit Radiation Oncology at [address] [phone] Eleonora Mensah MD [facility] DR [place] [address] documented as of this encounter Visit Diagnoses Not on filedocumented in this encounter Care Teams Accounting Manager Controller Relationship Specialty Start Date End Date Charleen Williamson APRN [address] [place] [address] PCP - General Family Medicine 06/29/20 documented as of this encounter
--- OUTSIDE RECORDS SUMMARY | 2024-05-09 13:56 | XMS_ITS | Encounter Summary ---
Author Organization [facility] Address [facility] [place] [address] Care Team Providers Care Patient Ambassador Name Role Phone Charleen Williamson APRN Primary Care Provider [phone] [phone] Encounter Details Date Type Department Care Team (Late st Contact Info) Description 01/14/2022 3:00 PM EDT TH Visit (TeleHealth) Hematology [place] [address] Jossy Yancey CYLINDER INSPECTOR AND TESTER [facility] [place] [place] [address] Current moderate episode of major depressive disorder without prior episode (Primary Dx); TALISHA (generalized anxiety disorder); Malignant neoplasm of overlapping sites of right [...] Progress Notes * Jossy Yancey APRN - 01/14/2022 3:00 PM EDT PSYCHIATRY CONSULTATION AT [facility] FOLLOW UP Time Spent: 25 minutes Location: Alis located in her home in [place] Attendee(s): Jossy Snell APRN HISTORY Patient Identification: [...] 01/29/22 Chief Complaint: I'm okay. HPI: () Trintellix 20 mg for about one month-continues to have bouts of irritability but most distressing is intermittent feelings of restlessness. Sometimes I feel fine, sometimes I feel restless. Has had restlessness randomly-feels like anxiety. Irritability 'depends on the day' -early afternoon- feels like Trintellix wears off (has been taking at night due to prior GI upset). When tired in the am feels irritable. Sleep has been 'weird'; will wake up at 5 am (which isn't ideal for her). 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 She prefers restarting Zoloft. We discuss that mood may stabilize a bit once infusions are completed (last one 01/29); will stop Trintellix today and start Zoloft 50 mg tomorrow (no need to taper due to long half life of the medication) Denies SI/HI. Pertinent Medication Side Effects: Gabapentin [...] C50.911, Z17.0 ??? 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 vortioxetine (Trintellix) 20 mg Tablet Take 1 tablet by mouth daily. 30 tablet 3 ??? meloxicam (MOBIC) 7.5 mg Tablet Take 1 tablet by mouth daily. May increase to 2 tablets daily if needed. 60 tablet 5 ??? lidocaine-prilocaine (EMLA) Cream APPLY A THINK LAYER OF CREAM TO DESIGNATED SITE OF INTACT SKIN 60 MINUTES PRIOR TO ACCESING PORT. COVER SITE WITH OCCLUSIVE DRESSING. 30 g 1 ??? RX ADULT COMPOUNDED MEDICATION After cleansing, apply topically to the fissure twice daily for four weeks. (Patient not taking: No sig reported) 1 each 0 ??? lidocaine (Xylocaine) 2 % jelly Apply [...] by mouth daily. 90 tablet 3 ??? silver sulfADIAZINE (Silvadene) 1 % Cream Apply as often as needed to irradiated area. (Patientnot taking: No sig reported) 50 g 0 ??? traZODone (Desyrel) 50 mg Tablet Take 3 tablets by mouth nightly. 90 tablet 3 ??? Miscellaneous Medical Supply Misc by [facility] [...] efficacy. Restarted 01/15/22. Propranolol 20 mg BID Hydroxyzine buspar (discontinue 08/06/21)-felt quite activated at night with it Trazodone 150 mg Effexor 225 mg (started at 37.5 mg 09/08/21, began to taper off 11/13/21 after 2 weeks of 225 mg withno obvious benefit since starting the medication) Trintellix: restlessness SUBSTANCE USE HISTORY: ETOH: None currently Drugs: none Nicotine: none Caffeine: Very minimal, doesn't like coffee ?? FAMILY PSYCHIATRIC HISTORY: We never really talked about mental health growing up. No family history of suicide attempts ?? DEVELOPMENTAL/PSYCHOSOCIAL HISTORY: Currently lives in [place], [place] with her Elmer Relationship status: . [...] ?? 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 Trauma/Abuse History: not reviewed EXAM Constitutional System ? Vital Signs: There were no vitals taken for this visit. Musculoskeletal System ? Muscle Strength/Tone: normal tone, no weakness ? Gait and Station: steady gait, without abnormality Psychiatric System ? General Appearance/Behavior: Cooperative and pleasant. Appropriately dressed. ? Movements: no abnormal movements or tremor ? Speech: regular rate, volume, and tone ? Thought Process: [...] ? Language: normal ? Fund of Knowledge: litigation claim representative of education level MEDICAL DECISION MAKING ; ASSESSMENT: Alis Silva is a 31 y.o. Female with symptoms of MDD and anxiety, both likely exacerbated by ovarian suppression. We will discontinueTrintellix to 20 mg (no need to taper due to longhalf life) and restart Zoloft at 50 mg. RECOMMENDATIONS/PLAN ?? Safety: SI/HI denied; reviewed office and emergency contact info. Crisis line is [phone] ?? Medications: Stop Trintellix 20 mg; tomorrow begin Zoloft 50 mg ?? Additional treatment recommendations: Continue with Sharon as scheduled ?? FOLLOW-UP CARE: 1. Follow up care planned for: 02/04 9:30 am video 3. Pt is aware is aware [...] further on this case. Jossy Yancey APRN 01/14/2022 documented in this encounter Plan of Treatment Upcoming Encounters Date Type Department Care Team (Late st Contact Info) Description 02/13/2025 1:00 PM EDT Office Visit Radiation Oncology at [address] [phone] Eleonora Mensah MD [facility] [place] [address] documented as of this encounter Visit Diagnoses Diagnosis Current moderate episode of major depressive disorder without prior episode- Primary TALISHA (generalized anxiety disorder) Generalized anxiety disorder 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, estrogen receptor positive documented in this encounter Care Teams Patient Ambassador Relationship Specialty Start Date End Date Charleen Williamson APRN [address] [place] [address] PCP - General Family Medicine 06/29/20 documented as of this encounter
--- OUTSIDE RECORDS SUMMARY | 2024-05-09 13:56 | XMS_ITS | Encounter Summary ---
Author Organization [facility] Address [facility] [place] [address] Care Team Providers Care Vending Machine Filler Name Role Phone Charleen Williamson APRN Primary Care Provider [phone] [phone] Encounter Details Date Type Department Care Team (Late st Contact Info) Description 03/18/2022 3:00 PM EST Office Visit Hematology [place] [phone] Tyra Cornejo MD [facility] HEMATOLOGY [place] [address] Malignant 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, estrogen receptor positive; Medication management Social History Tobacco Use Types [...] Sign Reading Time Taken Comments Blood Pressure 126/81 03/18/2022 2:50 PM EST Pulse 80 03/18/2022 2:50 PM EST Temperature 36.5 ??C (97.7 ??F) 03/18/2022 2:50 PM ES T Respiratory Rate 20 03/18/2022 2:50 PM EST Oxygen Saturation 98% 03/18/2022 2:50 PM EST Inhaled Oxygen Concentration - - Weight 77 kg (169 lb 12.1 oz) 03/18/2022 2:50 PM EST Height 176 cm (5' 9.29) 03/18/2022 2:50 PM EST Body Mass Index 24.86 03/18/2022 2:50 PM EST documented in this encounter Progress Notes * Tyra Cornejo MD - 03/18/2022 3:00 PM EST [facility] ?? Breast Oncology Clinic: Follow-up Visit ?? Identification:??31??y.o.??female with locally advanced right breast cancer; s/p neoadjuvant chemotherapy with TCHP, R mastectomy/ALND; currently on adjuvant T- DM1 for residual disease??until 01/29/22. ? Interim History:??Alis??presents today for follow-up . Finished TDM -1 01/29, port out 02/13. Worked a lot on [employer], just finished a huge order. Doing well on tamoxifen. Lymphedema is stable. ??Hand pain work up showed flexor sheath ganglion, working with ortho. ?She has been working with [employer] on anti- depressant regimen and doing better. Starting to think about child bearing in 2- 3 yrs. ?Joint pain is stable.? Review of Systems: General: Denies fevers,??chills,??appetite changes.??++fatigue, [...] Neuro: Denies dizziness, lightheadedness, weakness, balance problems. ??Psych:??stable.? Breast Cancer History: Diagnosis: -??29 yo self-palpated a mass under the right nipple when she noticed it had inverted at the end 2020.?? -??Dx 06/29/20 [facility] [place], ER/CT+ HER2 + right invasive carcinoma with ductal [...] cryopreservation - 08/14/2020 goserelin dose #1 at Left Hand - 08/17/2020 cycle 1 neoadjuvant TCHP - 09/06/2020 cycle 2 TCHP - 2020 cycle 3 TCHP - 10/18/2020 cycle 4 TCHP - 11/08/2020 cycle 5 TCHP - 11/29/2020 cycle 6 TCHP, dose-reduced carbo/taxol - mastectomy + SLNB: 13 cm tumor bed w/ scattered foci of invasive disease, +LVI, 1 node with microscopic disease - Consented to [place] trial evaluating axillary dissection vs RT and randomized to dissection: 0/13 nodes positive. - Not eligible for adjuvant tucatinib trial due to participation in the [place] axillary management trial. - TDM-1??q3 wks x [...] paternal aunt. ?? 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 - VUS was detected in the following??genes: Gene?Variant RET?c.2982A>C (p.Ltv008Ugi) SDHB ?c.482A>G (p.May905Cas) ?? SH: No smoking No current EtOH to [employer] [facility] on [employer] / unemployed No children - desires biological children in the future ?? Vitals: Last value Range last 8 hrs Temperature Temp: 36.5 ??C (97.7 ??F) Temp: [36.5 ??C (97.7 ??F)] Heart Rate Heart Rate: 80 Heart Rate: [80] Blood Pressure BP: 126/81 BP: (126)/(81) Respiratory Rate Resp: 20 Resp: [20] SpO2 SpO2: 98 % SpO2: [98 %] ? Physical Exam: Vitals reviewed. General: A&Ox3. Well-developed??and well-nourished.??No acute distress. Head:??Normocephalic, atraumatic. Eyes: EOMs intact. Conjunctiva pink. No scleral icterus. Chest: Port site (left) accessed. No tenderness. Pulmonary:??Breathing comfortably on room air. Extremities:??No??LE??edema.??Right??hand??with??1??+ edema, arm better, sleeve and glove in place.normal strength.?? Musculoskeletal : no point tenderness over ribs Neurological: Gait normal. No focal deficits noted. Skin: Warm??and dry.??No rashes??noted. Psychiatric: ??Affect is mood-congruent. Insight is good. Thought-content is normal, future-oriented.Good eye contact.? Results: Labs reviewed, ?? Assessment & Plan:??Alis??is a 31??y.o.??premenopausal??woman with a large, node+, ER/CT+ HER2+ breast cancer, partial pathologic response to neoadjuvant TCHP??[[id number]], s/p??mastectomy/ALND, RT, now on tamoxifen alone. ROSALEE. ?Right flank pain: resolved, consider spanx sports bra/ light compression for more support during her work ?? Right hand pain: Orthopedics referral in progress, surgery planned with Dr. Abbasi in April. ?#Breast cancer ??? completed adjuvant T-DM1,?? 01/29/22.? Continue tamoxifen, if high risk surgery for blood clots, d/c tamoxifen 4 wks prior to surgery.Will d/w Dr. Abbasi. ? #Treatment monitoring for toxicity Check cholesterol panel on tamoxifen ?? #Right wrist pain--ortho referral #Right UE lymphedema ??? Continue??lymphedema PT specialist ??? Voltaren gel applied locally up to 4x daily ?#Future childbearing ??? contraindicated during T-DM1 and for 7 months after last dose ??? Safety of interrupting endocrine therapy to allow for is not known -- ongoing POSITIVE trial looking at this and preliminary data suggest is safe after 2 yrs of tamoxifen. Current data do not suggest an increased risk of recurrence/ ??? Canelo have their embryos banked. Could consider carrying her own vs surrogate vs adoption.??They will reach out for a f/u fertility appt.? #Vasomotor symptoms ??? Unchanged??on current regimen, increase venlafaxine??as per?[employer] DIRECTOR MEDICAL as planned.? She declines a brief break in tamoxifen for now ?? #Psychosocial Continue f/u and recommendations ? F/u 3 months with labs ? documented in this encounter Plan of Treatment Upcoming Encounters Date Type Department Care Team (Late st Contact Info) Description 02/13/2025 1:00 PM EDT Office Visit Radiation Oncology at [address] [phone] Eleonora Mensah MD [facility] [place] [address] documented as of this encounter Results * Vitamin D, 25-Hydroxy (06/18/2022 12:49 PM EST) Vitamin D Total 25 OH 34 21 - 100 ng/mL [facility] Vit D Interp Sufficient [facility] Blood 06/18/2022 12:4 9 PM EST 06/18/2022 12:57 PM EST Narrative Resulting Agency Comment Spec In Lab Tyra Cornejo MD CHEMISTRY ORDERABLE S [facility] [place] [address] * Lipid Panel (Reflex Direct LDL) (06/18/2022 12:49 PM EST) Cholesterol, Total 158 mg/dL [facility] Comment: Lower Risk: <200 mg/dL Average Risk: 200-239 mg/dL Higher Risk: >ah=484 mg/dL Triglyceride 175 mg/dL [facility] Comment: Average Risk/Lower Risk: <150 mg/dL Borderline High Risk: 150-199 mg/dL High Risk: 200-499 mg/dL Very High Risk: >pp=170 mg/dL HDL Cholesterol 45 mg/dL [facility] Comment: Males: ?? Higher Risk: <40 mg/dL Females: ?? Higher Risk: <50 mg/dL LDL Cholesterol 78 mg/dL [facility] Comment: Lowest Risk: <100 mg/dL Lower Risk: 100-129 mg/dL Borderline High Risk: 130-159 mg/dL High Risk: 160-189 mg/dL Very High Risk: >ub=644 mg/dL Cholesterol/HDL Ratio 3.5 ratio [facility] Lipid Interpretation See Note [facility] Comment: Lipid management should be guided by a patient? s ASCVD risk, goals and preferences. ACC/AHA Guidelines recommend high intensity statin if clinical ASCVD or LDL greater than or equal to 190 mg/dL. http://[employer].com/SYX-AIL-Ezlkoqkjk Adults aged 40-75 with LDL 70-189 mg/dL should have their 10 year ASCVD risk estimated with the ACC/AHA ASCVD risk hospitality associate http://tools.acc.org/VAJBY-Qvnp-Ronpbfthu/ Statin should be discussed if risk greater [...] MD CHEMISTRY ORDERABLE S Performing Organization Address City/State/[facility] Co de Phone Number [facility] [place] [address] documented in this encounter Visit Diagnoses Diagnosis Malignant 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, estrogen receptor positive Medication management Encounter for long-term (current) use of other medications documented in this encounter Care Teams Vending Machine Filler Relationship Specialty Start Date End Date Charleen Williamson APRN [address] [place] [address] PCP - General Family Medicine 06/29/20 documented as of this encounter
--- OUTSIDE RECORDS SUMMARY | 2024-05-09 13:56 | XMS_ITS | Encounter Summary ---
Author Organization [facility] Address [facility] [place] [address] Care Team Providers Care Production Welder Name Role Phone Charleen Williamson APRN Primary Care Provider [phone] [phone] Reason for Visit * Reason Comments Follow-up Rt hand MRI Encounter Details Date Type Department Care Team (Late st Contact Info) Description 02/19/2022 1:00 PM EDT Office [place] [address] Silas Abbasi MD [facility] [place] [address] Subcutaneous mass of finger of right hand; Ganglion cyst of flexor tendon sheath right [...] Sign Reading Time Taken Comments Blood Pressure 123/73 02/19/2022 12:57 PM EDT Pulse - - Temperature - - Respiratory Rate - - Oxygen Saturation - - Inhaled Oxygen Concentration - - Weight 80.3 kg (177 lb) 02/19/2022 12:57 PM EDT Height 175.3 cm (5' 9) 02/19/2022 12:57 PM EDT Body Mass Index 26.14 02/19/2022 12:57 PM EDT documented in this encounter Progress Notes * Silas Abbasi MD - 02/19/2022 1:00 PM EDT I examined Alis Silva and I agree with Dr. Perez's note. She has a fairly large flexor sheathganglion on the palmar surface of her right long finger in the interval between the A1 and A2 pulleys which was confirmed by MRI. She would like to have this surgically excised. She does have lymphedema in her right arm due to prior lymph node surgery. Her right arm surgery would need to be done wit hout a tourniquet. She is aware of surgical risks which include but are not limited to infection, nerve injury, worsening swelling, recurrence of the mass, but delayed wound healing, finger stiffness, and sensitive scar. 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 SILAS ABBASI MD * Artie Perez MD - 02/19/2022 1:00 PM EDT Images from the original note were not included. Orthopaedic Hand Surgery Artie Perez MD CC: R mass over volar aspect of R middle MCP HPI: 31 y.o. female presenting to clinic for follow-up of MRI and further evaluation of R mass overvolar aspect of R middle MCP. Patient seen last 01/24 for complaints of the mass, which she has had for years. Patient has been unable to take care of it given she has a history of beast cancer and had nodes excised resulting in lymphedema of her R upper extremity. Patient is right handed and works on a [employer]. She has been experiencing worsening pain and reports worsening with daily activities including driving. Otherwise denies any loss of sensation or any other symptoms. She is currently taking tamoxifen for her history of breast cancer. Physical Exam: A&O x 3, resting comfortably in exam room RRR assessed peripherally Breathing comfortably on RA R Upper Extremity Exam: Trans-illuminating mass over volar aspect of R MCP between the A1 and A2 pulleys. Lymphedema of right upper extremity present. Mass is non-tender to palpation. Painless range of motion of elbow / wrist / fingers No effusion in elbow / wrist No ecchymosis, erythema, or overlying skin changes except as described above. Compartments soft and compressible. Sensation intact to light touch in M/R/U/LABC/MABC distributions Motor intact elbow flexion/extension, wrist flexion/extension, automatic head sawyer, EPL, AIN, IO Brisk capillary refill distally, 2+ radial pulse Imaging: MRI of right upper extremity shows Cystic lesion within the volar subcutaneous tissues overlying the third finger proximal phalanx. This lesion has benign imaging features and likely represents a digital ganglion or mucoid cyst. Assessment/Plan: 31 y.o. female with likely ganglion cyst of the volar flexor sheath in between A1 and A2 pulleys. MRI reviewed and diagnosis discussed with patient. At this time, recommending excisional biopsy of ganglion cyst of R middle finger. Risks and benefits of procedure were discussed at length including bleeding, infection, scarring, damage to nearby structures, risk of recurrence and re-operation, delayed wound healing, pain, and/or persistent or worsening swelling. Patient wishes toproceed with surgical intervention, however wants to schedule the procedure in late March/early April. Our office will be in touch with patient regarding scheduling procedure when a final decision is made about timing. Patient was seen and examined with Dr. Silas Abbasi. Consent signed in office. Artie Peerz MD Plastic and Reconstructive Surgery (PGY-2) * Kelli Menjivar RN - 02/19/2022 1:00 PM EDT Pre operative teaching done for cyst excision. Emphasis placed on keeping hand properly elevated with hand above heart,fingers above palm,palm above wrist and wrist above elbow for the first few daysand any time there is swelling. Patient may also use an ice pack on the extremity. Patient is to keep hand in original dressing until first follow up appointment. If showering, the extremity should be covered with a plastic bag and kept up and out of the way.. Patient was cautioned not to use the hand for any lifting,pushing or pulling. Suggestions for post op pain management suggested using the least amount initiallly and assessing discomfort on a daily basis. This should be tapered over a few days. Questions solicited and answered to patient satisfaction. Patient knows to call with any additionalquestions or concern.. documented in this encounter Plan of Treatment Upcoming Encounters Date Type Department Care Team (Late st Contact Info) Description 02/13/2025 1:00 PM EDT Office Visit Radiation Oncology at [address] [phone] Eleonora Mensah MD [facility] [place] [address] documented as of this encounter Visit Diagnoses Diagnosis Subcutaneous mass of finger of right hand Ganglion cyst of flexor tendon sheath right long finger Ganglion of tendon sheath documented in this encounter Care Teams Production Welder Relationship Specialty Start Date End Date Charleen Williamson, BENEFITS SPECIALIST RECRUITER [address] [place] [address] PCP - General Family Medicine 06/29/20 documented as of this encounter
--- OUTSIDE RECORDS SUMMARY | 2024-05-09 13:56 | XMS_ITS | Encounter Summary ---
Author Organization [facility] Address [facility] [place] [address] Care Team Providers Care Test Driller Name Role Phone Charleen Williamson APRN Primary Care Provider [phone] [phone] Encounter Details Date Type Department Care Team (Latest Contact Info) Description 03/02/2022 Travel Social History Tobacco Use Types Packs/Day [...] EDT Office Visit Radiation Oncology at [address] [phone] Eleonora Mensah MD [facility] [place] [address] documented as of this encounter Visit Diagnoses Not on filedocumented in this encounter Care Teams Test Driller Relationship Specialty Start Date End Date Charleen Williamson APRN [address] [place] [address] PCP - General Family Medicine 06/29/20 documented as of this encounter
--- OUTSIDE RECORDS SUMMARY | 2024-05-09 13:56 | XMS_ITS | Encounter Summary ---
[place] [address] Care Team Providers Care Leaf Size Picker Name Role Phone Charleen Williamson APRN Primary Care Provider [phone] [phone] Encounter Details Date Type Department Care Team (Latest Contact Info) Description 03/04/2022 3:00 PM EST TH Visit (TeleHealth) Hematology [place] [address] Sharon Desir Current moderate episode [...] encounter Progress Notes * Sharon Desir - 03/04/2022 3:00 PM EST [facility] PSYCHO-ONCOLOGY FOLLOW-UP [facility] HEMATOLOGY AND ONCOLOGY AT [facility] [address] Dept: [phone] Loc: [phone] 03/04/2022 2:00 PM Time spent: 45 minutes. Location: Telehealth. Alis Silva gave permission for and was seen for today's appointment with a Telehealth visit. During this visit they were located [place]. Alis Silva is aware that for any urgent matter they can call [phone]. Attendees: Patient SESSION #: 7 CHIEF COMPLAINT Adjustment to cancer dx and tx GOALS FOR THERAPY ??? Reduce anxiety and depressive symptoms ??? Improve coping with uncertainty and fear of recurrence S/O Since the previous session, Alis Silva reported decreased anxiety and maintained depression. She rated her anxiety at a 3 on scale from 1 (not at all) to 10 (extremely) and her depression at a 7. She reported that she did not complete her SMART goal of applying to jobs due to having car difficulties and not being able to drive to a new job if she were to get one. Today's session focused on behavioral activation. Alis endorsed an interest in increasing her self-care/leisure and reported that she has no motivation to engage in pleasurable activities given that she is fatigued from work. We discussed how scheduling activities related to self-care/leisure canhelp improve her mood and reduce depression, and Alis identified activities that she could complete inside her home that are not as fatiguing. She endorsed wanting to read more and agreed to schedule and engage in reading 2x/week on weekends. Diagnosis: Major depressive disorder, moderate Mental Status: No SI. Mental status WNL. Fully engaged in therapy process. P In between sessions, Alis will read 2x/week before bed. Follow-up appointment scheduled for return in 1 month. Alis Silva has my contact information and was encouraged to reach out to me in the future as needed. * Lacy Barroso, PhD - 03/04/2022 3:00 PM EST I have reviewed this note and agree with the plan and treatment Lacy Barroso, PhD documented in this encounter Plan of Treatment Upcoming Encounters Date Type Department Care Team (Late st Contact Info) Description 02/13/2025 1:00 PM EDT Office Visit Radiation Oncology at [address] [address] Eleonora Mensah MD [facility] [place] [address] documented as of this encounter Visit Diagnoses Diagnosis Current moderate episode of major depressive disorder without prior episode documented in this encounter Care Teams Leaf Size Picker Relationship Specialty Start Date End Date Charleen Williamson APRN [address] [place] [address] PCP - General Family Medicine 06/29/20 documented as of this encounter
--- OUTSIDE RECORDS SUMMARY | 2024-05-09 13:56 | XMS_ITS | Encounter Summary ---
Author Organization [facility] Address [facility] [place] [address] Care Team Providers Care Die Maintenance Name Role Phone Charleen Williamson APRN Primary Care Provider [phone] [phone] Reason for Visit * Treatment/Therapy Plan Authorization (Routine) - Closed Specialty Diagnoses / Procedures Referred By Contac t Referred To Contact Diagnoses 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, estrogen receptor positive Procedures INJ, ADO-TRASTUZUMAB EMT 1MG TC GOSERELIN ACETATE IMPLANT, 3.6MG (ZOLADEX) TC PALONOSETRON HCL, 25MCG, INJECTION (ALOXI) Tyra Cornejo MD [facility] [place] [address] [facility] Hem Onc Office [address] [place] [phone] Referral ID Status Reason Start Date Expiration Date Visits Re quested Visits Authorized [id number] Closed 03/01/2021 04/26/2022 99 99 Encounter Details Date Type Department Care Team (Latest Contact Info) Description 01/08/2022 6:56 AM EDT Hospital Encounter [place]ology [place] [address] Malignant neoplasm of overlapping sites [...] OCCLUSIVE DRESSING. 30 g 1 09/11/2021 06/18/2022 RX ADULT COMPOUNDED MEDICATION After cleansing, apply topically to the fissure twice daily for four weeks. 1 each 09/04/2021 01/24/2022 lidocaine (Xylocaine) 2 % jelly Apply topically [...] mouth daily. 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 50 g 05/21/2021 01/24/2022 traZODone (Desyrel) 50 mg Tablet Take 3 tablets by mouth nightly. 90 tablet 3 04/18/2021 06/18/2022 Miscellaneous Medical Supply Misc by [facility].(Non-Drug; Combo Route) route. Remedy [...] Progress Notes * Jossy Ghotra RN - 01/08/2022 7:22 AM EDT Patient Name: Alis Silva Patient Age: 31 y.o. Birthdate: 1990 Admit date: 01/08/2022 Attending Physician: No att. providers found Access visit. See MAR and/or flowsheet. documented in this encounter Plan of Treatment Upcoming Encounters Date Type Department Care Team (Late st Contact Info) Description 02/13/2025 1:00 PM EDT Office Visit Radiation Oncology at [address] [phone] Eleonora Mensah MD [facility] [place] [address] documented as of this encounter Procedures Procedure Name Priority Date/Time Associated Diagnosis Comments HEMOGRAM STAT 01/08/2022 7:13 AM EDT 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, estrogen receptor positive DIFFERENTIAL, AUTOMATED STAT 01/08/2022 7:13 AM EDT 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, estrogen receptor positive HC CBC,PLT & AUTO DIFF STAT 7:13 AM EDT 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, estrogen receptor positive COMPREHENSIVE METABOLIC PANEL STAT 01/08/2022 7:13 AM EDT 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, estrogen receptor positive documented in this encounter Results * Differential, Automated (01/08/2022 7:13 AM EDT) Neutrophil % 54.8 % [facility] Neutrophil Absolute 2.93 1.70 - 6.10 x10(3)/[facility] Lymph % 29.9 % [facility] Lymphocytes Abs 1.6 0.9 - 3.2 x10(3)/[facility] Monocyte % 12.3 % [facility] Monocyte Abs 0.7 0.3 - 0.9 x10(3)/[facility] Eos % 1.7 % [facility] Eosinophils Abs 0.1 0.0 - 0.4 x10(3)/[facility] Basophil % 0.9 % [facility] Baso Absolute 0.0 0.0 - 0.1 x10(3)/[facility] Immature Gran % 0.40 % [facility] Comment: Immature granulocytes(IG's)percentage and absolute count will include metamyelocytes, myelocytes, and promyelocytes. Blood smears from CBCs yielding IG's will be scanned manually for concordance. If this scan disagrees with the automated IG or if promyelocytes are noted, a manual differential will be performed. Immature Gran Absolute 0.02 0.00 - 0.04 x10(3)/[facility] Blood 01/08/2022 7:13 AM EDT 01/08/2022 7:23 AM EDT Narrative Resulting Agency Comment Spec In Lab Tyra Cornejo MD HEMATOLOGY ORDERABL ES [facility] [place] [address] * (ABNORMAL) Hemogram (01/08/2022 7:13 AM EDT) White Blood Cell 5.4 4.0 - 9.5 x10(3)/mc L [facility] Red Blood Cell 3.70(L) 4.00 - 5.21 x10(6)/mc L [facility] Hemoglobin 11.3(L) 11.7 - 15.5 g/dL [facility] Hematocrit 32.3(L) 35.7 - 45.8 % [facility] Mean Cell Volume 87.3 82.6 - 94.4 fL [facility] Mean Cell Hemoglobin 30.5 27.1 - 32.0 pg [facility] Mean Cell Hemoglobin Concentration 35.0 31.7 - 35.0 g/dL [facility] Platelet 75(L) 145 - 357 x10(3)/ L [facility] RDW Standard Deviation 39.3 37.0 - 46.0 [facility] RDW coefficient of variation 12.2 11.5 - 14.1 % [facility] Mean Platelet Volume 9.0 7.6 - 12.9 fL [facility] NRBC% auto 0.0 % [facility] NRBC Absolute 0.000 0.000 - 0.000 x10(3)/ L [facility] Blood 01/08/2022 7:13 AM EDT 01/08/2022 7:23 AM EDT Narrative Resulting Agency Comment Spec In Lab Tyra Cornejo MD HEMATOLOGY ORDERABL ES [facility] [place] [address] * (ABNORMAL) Comprehensive metabolic panel (non-fasting) (01/08/2022 7:13 AM EDT) [facility] Glucose 108 65 - 199 mg/dL [facility] Comment:Diabetes: >=200 mg/d L plus symptoms Blood Urea Nitrogen 13 8 - 18 mg/dL [facility] Creatinine 0.64(L) 0.70 - 1.20 mg/dL [facility] Sodium 139 135 - 145 mmol/L [facility] Potassium 3.9 3.5 - 5.0 mmol/L [facility] Comment: Please note: ??Patients with WBC >100,000 may have falsely elevated Potassium levels. ??For accurate Potassium quantification in these patients send serum separator tube (gold top) for subsequent determinations. ??Contact the Clinical Chemistry Laboratory if there are any questions. Chloride 101 98 - 107 mmol/L [facility] Carbon Dioxide 27 22 - 31 mmol/L [facility] Anion Gap 11 5 - 15 mmol/L [facility] Calcium 9.5 8.5 - 10.5 mg/dL [facility] Protein, Total 7.5 6.1 - 8.0 g/dL [facility] Albumin 4.2 3.2 - 5.2 g/dL [facility] Aspartate Aminotransferase 38(H) 0 - 30 unit/L [facility] Alanine Aminotransferase 34(H) 0 - 30 unit/L [facility] Alkaline Phosphatase 58 35 - 105 unit/L [facility] Bilirubin, Total 0.2 0.2 - 1.3 mg/dL [facility] Est Glomerular Filtration Rate 123 >=60 mL/min/1. 73 m?? [facility] Comment: This patient's estimated GFR [...] and symptoms in addition to eGFR. Blood 01/08/2022 7:13 AM EDT 01/08/2022 7:23 AM EDT Narrative Resulting Agency Comment Spec In Lab Tyra Cornejo MD CHEMISTRY ORDERABLE S [facility] [place] [address] documented in this encounter Visit Diagnoses Diagnosis [...] Intravenous, EVERY 1 MIN PRN, Starting on Thu01/08/22 at 0701, Until Alannah 01/09/22 at 0434, Line Care, Flush pertains to all indwelling lines. Flush per protocol found in the job aid using the link provided on this medication record. Refer to Intravenous (IV) Job Aid: Adult Flushing & Catheter Care (9731) job aid for additional information regarding guidelines and administration., Routine Given 01/08/2022 7:20 AM EDT 20 mLs documented in this encounter Care Teams Die Maintenance Relationship Specialty Start Date End Date Charleen Williamson APRN [address] [place] [address] PCP - General Family Medicine 06/29/20 documented as of this encounter
--- OUTSIDE RECORDS SUMMARY | 2024-05-09 13:56 | XMS_ITS | Encounter Summary ---
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, estrogen receptor positive Procedures IR Tyra Torres MD [facility] [address] HEMATOLOGY [place] [address] [facility] [place] [address] Referral ID Status Reason Start Date Expiration Date V isits Requested Visits Authorized [id number] Closed Specialty Service Requested 12/18/2021 06/20/2023 1 1 Reason for Visit * Diagnostic Test (Routine) - Closed Specialty Diagnoses / Procedures Referred By Contac t Referred To Contact Radiology Diagnoses Malignant 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, estrogen receptor positive Procedures IR Tyra Torres MD [facility] [address] HEMATOLOGY [place] [address] [facility] [place] [address] Referral ID Status Reason Start Date Expiration Date V isits Requested Visits Authorized [id number] Closed Specialty Service Requested 12/18/2021 06/20/2023 1 1 Encounter Details Date Type Department Care Team (Latest Contact Info) Description 02/13/2022 12:55 PM EDT - 02/13/2022 11:59 PM EDT Hospital Encounter Radiology at [facility] [place] [address] Tyra Cornejo MD [facility] [address] HEMATOLOGY [place] [address] Malignant neoplasm of central portion of right [...] Sign Reading Time Taken Comments Blood Pressure 132/79 02/13/2022 1:39 PM EDT Pulse 83 02/13/2022 1:39 PM EDT Temperature 37.2 ??C (99 ??F) 02/13/2022 1:39 PM EDT Respiratory Rate 20 02/13/2022 1:39 PM EDT Oxygen Saturation 98% 02/13/2022 1:39 PM EDT Inhaled Oxygen Concentration - - Weight - - Height - - Body Mass Index - - documented in this encounter Discharge Instructions * Discharge Instructions* Irene Raymond RN - 02/13/2022 2:20 PM EDT [facility] Vascular and Interventional Radiology Discharge Instructions for your Chest Port Removal Activity: Relax for the next 24 hours Diet: Drink plenty of fluids. Resume your regular diet Bandage: There is a sterile dressing consisting of small gauze with a clear dressing (Tegaderm or IV 3000). This dressing should be left in place for 48 hours. If the clear dressing becomes loose youshould place tape over the edges to secure it in place. No tub baths, swimming or whirlpools for 1 week. No showering for 48 hours. Note: There may be Kiana-barnett (skin glue) also, allow this to flake off. Do not pick this off. Bathing: Do not take a shower until 48 hours after your port is removed; after this time you may shower with the dressing in place, then remove it and pat your skin dry. After 48 hours, we recommend that you cover the area with THE AQUA GUARD PROVIDED for 1 week while showering, facing away from the shower stream. You may use a bandaid to cover the site after the 48 hours are up if there is any drainage. No tub baths, whirlpools or swimming for one week following port removal. Pain: Apply ice bag to site at 30 minute intervals (MAX 30 minutes on and AT LEAST 30 minutes off) for 24 hours. May use as needed for pain and/or bruising after 24 hours. When to call your healthcare provider: If you notice bleeding from the incision on your chest, you should lie flat and apply firm pressureover the site for 10-15 minutes, keeping the site covered and call your doctor. If you are still bleeding after 10-15 minutes, reapply pressure, and have someone drive you to the nearest Emergency Department, or call 911. If you develop pain, redness, drainage or swelling at or around chest incision site. If you develop a fever equal to or greater than 101 degrees Fahrenheit. You have received medication during your procedure to help lessen anxiety and keep you comfortable.These medications affect judgement and reaction time. We recommend that you do not drive, operate equipment, sign any important documents, or smoke unattended for 24 hours following your procedure. Because of the sedation, be careful on stairs, as you may be unsteady on your feet. You may resume your regular diet as tolerated. IV site -- slight redness, or tenderness is normal, you can use a warm compress. If tenderness and redness increases or foul drainage occurs, please contact your M. D. When to call the Interventional Radiology Department: Please call with any questions or concerns. If it is during regular office hours, please call [phone]. If it is after regular office hours, or on weekends or holidays, please call [phone] and ask to speak to the Hourly Associate station installer for Interventional Radiology. documented in this encounter Medications at Time [...] 04/18/2021 06/18/2022 Miscellaneous Medical Supply Misc by [facility].(Non-Drug; Combo Route) route. Remedy Phytoplex Moisturizer. Apply [...] as of this encounter Progress Notes * Ernestina Christiansen RN - 02/13/2022 11:59 PM EDT Interventional and Vascular Radiology Post-Procedure Call Name: Alis Silva Age: 31 y.o. Sex: Female Date of : 1990 Telephone Number: [phone] (home) Telephone Information: PCP Charleen Williamson, IVY [phone] Date/Time of call: February 14, 2022/8:38 AM Procedure: Mediport Removal Procedural Provider: Sena Green PA-C Contact made with Patient Are you having pain/difficulty breathing related to your procedure now? No Are you having any swelling or bleeding from the site? No If any, are your symptoms improving? NA Are you having any other problems related to your procedure? No Do you have any questions about the discharge instructions given to you? No Do you have any comments about your Nurse or Provider or the care you received? Yes Comments (if applicable): Everyone was great Concerns addressed, questions answered. POC updated and reviewed. Ernestina Christiansen RN * Lora Shahid RN - 02/13/2022 2:24 PM EDT [facility] NUR[facility] DATABASE Name: Alis Silva Date of : 1990 AGE: 31 y.o. Address: [address] [place] [address] Phone: [phone] (home) Mobile: Telephone Information: Referring Provider: Tyra Cornejo REASON FOR VISIT: Order Questions Answers Where will study be performed? [facility] Radiology [120] Reason for exam and clinical history: chemotherapy complete What labs need to be collected during imaging study? no Is the patient ? No Does patient require sedation? None Is the patient on anticoagulant / antiplatelet therapy ? No Plan Planned procedure: Port removal Labs to be performed day of procedure: No labs Sedation: No Sedation Prophylactic antibiotic : None Contrast: No contrast Additional medications for procedure: Lidocaine Position: Supine Consent: Pending Medications to discontinue (and days held): None Cytopathology presence needed: No Case Urgency:: G- Other (non E or F elective cases) No data recorded Allergies Allergen Reactions ??? Tegaderm [Transparent Dressings] Use alcohol and betadine, no biopatch. USE DUODERM Pertinent PMH: Patient Active Problem List Diagnosis Code ??? Malignant neoplasm of right breast in female, estrogen receptor positive C50.911, Z17.0 ??? Lymphedema of arm I89.0 ??? Subcutaneous mass of finger of right hand R22.31 ?? Date/Procedure Meds Given/Comments 07/23/20 Mediport placement Ancef 2 gm IV, Fentanyl 250 mcg IV, Versed 4 mg IV 02/13/22 Mediport removal Local only. ? 1405 to procedure room 4 via stretcher. Remained on stretcher supine. Local only. Laboratory Results: Lab Results Component Value Date CREATININE 0.80 01/29/2022 Lab Results Component Value Date K 3.9 01/29/2022 Lab Results Component Value Date PLATELET 72 (L) 01/29/2022 documented in this encounter Plan of Treatment Upcoming Encounters Date Type Department Care Team (Late st Contact Info) Description 02/13/2025 1:00 PM EDT Office Visit Radiation Oncology at [address] [address] Eleonora Mensah MD [facility] [place] [address] documented as of this encounter Procedures Procedure Name Priority Date/Time Associated Diagnosis Comments IR MEDIPORT REMOVAL Routine 02/13/2022 2 :54 PM EDT Malignant 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, estrogen receptor positive documented in this encounter Results * IR Mediport Removal (02/13/2022 2:54 PM EDT) Anatomical Region Laterality Modality X-Ray Angiograph y Narrative 02/13/2022 4:48 PM EDT Interventional Radiology Procedure Note Procedure: Subcutaneous venous port explant Indication: Right breast cancer, discontinue correction central venous access for chemotherapy Pre-procedure: Informed consent for the procedure including risks, benefits and alternatives was obtained. Active time-out was performed prior to the procedure. The site was prepared and draped using maximal sterile barrier technique. Sedation: None/ Technique: Local anesthetic was administered at the port site. A 2 cm transverse incision was made superior to the port. Catheter was removed from the vein via the subcutaneous tunnel. Hemostasis was achieved by applying direct pressure to the left neck. Blunt and sharp dissection used to remove, intact, the single-lumen port. Removal of the port reservoir, hub, and catheter were confirmed by their identification outside the patient. The wound was copiously irrigated with normal saline. The pocket was closed using a two-layer technique with 2-0 vicryl deep interrupted and 4-0 vicryl running subcuticular sutures. Skin closed with dermabond. Medications: Lidocaine 1% <10 cc subcutaneous Estimated blood loss: 1 mL Complications: No immediate Impression: Explantation of single-lumen left subcutaneous venous port with all components accounted for. Service provider: Sena Green PA-C Attending of record: Gorge Serra MD 02/13/2022 Tyra Cornejo MD IMG IR ORDERABLES documented in this encounter Visit Diagnoses Diagnosis Malignant 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, estrogen receptor positive documented in this encounter Administered Medications Inactive Administered Medications - up to 3 most recent administrations Medication Order MAR Action Action Date Dose Rate Site lidocaine (Xylocaine) 1% (10 mg/mL) injection 10 mg 10 mg, Subcutaneous, ONCE, 1 dose, On Alannah 02/13/22 at 1400, For use in Interventional Radiology (IR) only for procedure with direct provider supervision and verbal order., Angio/IR (Intra-Procedure), Routine Given 02/13/2022 2:26 PM EDT 10 mg lidocaine-EPINEPHrine (1% - 1:100,000) injection 20 mL 20 mL, Intradermal, ONCE, 1 dose, On Alannah 02/13/22 at 1400, For use in Interventional Radiology (IR) only for procedure with direct provider supervision and verbal order. *This order is NOT a Venous Ablation Order / Dose., Angio/IR (Intra-Procedure), Routine Given 02/13/2022 2:28 PM EDT 20 mLs documented in this encounter Care Teams Subway Train Operator Relationship Specialty Start Date End Date Charleen Williamson APRN [address] [place] [address] PCP - General Family Medicine 06/29/20 documented as of this encounter
--- OUTSIDE RECORDS SUMMARY | 2024-05-09 13:56 | XMS_ITS | Encounter Summary ---
Author Organization [facility] Address [facility] [place] [address] Care Team Providers Care Pile Driving Technician Name Role Phone Charleen Williamson APRN Primary Care Provider [phone] [phone] Encounter Details Date Type Department Care Team (Late st Contact Info) Description 02/11/2022 Telephone Radiation Oncology at [address] [address] Gretta Burk, RN Social History Tobacco Use Types Packs/Day [...] encounter Miscellaneous Notes * Telephone Encounter - Gretta Burk RN - 02/11/2022 1:43 PM EDT Telephone call to Alis to offer referral to PT for lymphedema. She responded that she is not interested in having a referral at this time. She would call back at a later time if this changes. Dr. Mensah updated with this note. * Telephone Encounter - Gretta Burk RN - 02/11/2022 1:40 PM EDT ----- Message from Eleonora Mensah MD sent at 02/11/2022 8:48 AM EDT ----- Gretta, will you please call & tell her I'm wondering if it might be worthwhile to see 1 of the physical therapists @ [facility] who specializes in lymphedema, for @ least 1 visit? If she would like, I can request referral. Eleonora documented in this encounter Plan of Treatment Upcoming Encounters Date Type Department Care Team (Late st Contact Info) Description 02/13/2025 1:00 PM EDT Office Visit Radiation Oncology at [address] [phone] Eleonora Mensah MD [facility] RADIATION ONCOLOGY [place] [id number] documented as of this encounter Visit Diagnoses Not on filedocumented in this encounter Care Teams Pile Driving Technician Relationship Specialty Start Date End Date Charleen Williamson APRN [address] [place] [address] PCP - General Family Medicine 06/29/20 documented as of this encounter
--- OUTSIDE RECORDS SUMMARY | 2024-05-09 13:56 | XMS_ITS | Encounter Summary ---
[place] [address] Care Team Providers Care Personal Banking Officer Name Role Phone Charleen Williamson APRN Primary Care Provider [phone] [phone] Encounter Details Date Type Department Care Team (Latest Contact Info) Description 03/18/2022 1:14 PM EST - 03/18/2022 11:59 PM EST Hospital Encounter [place] [address] HER2-positive carcinoma of right breast Discharge Disposition: Home Social History Tobacco [...] place to sleep or slept in a group home (including now)? No 04/23/2021 Sex and [...] 04/29/2022 06/18/2022 meloxicam (MOBIC) 7.5 mg Tablet Take 1 [...] 04/18/2021 06/18/2022 Miscellaneous Medical Supply Misc by [facility].(Non-Drug; Combo Route) route. Remedy Phytoplex Moisturizer. Apply [...] PM EDT Office Visit Radiation Oncology at [address] [phone] Eleonora Mensah MD [facility] [place] [address] documented as of this encounter Procedures Procedure Name Priority Date/Time Associated Diagnosis Comments HEMOGRAM Routine 03/18/2022 1:22 PM EST HER2-positive carcinoma of right breast DIFFERENTIAL, AUTOMATED Routine 03/18/2022 1:22 PM EST HER2-positive carcinoma of right breast HC CBC,PLT & AUTO DIFF Routine 03/18/2022 1:22 PM EST HER2-positive carcinoma of right breast HC VENIPUNCTURE Routine 03/18/2022 1:22 PM EST HER2-positive carcinoma of right breast documented in this encounter Results * Differential, Automated (03/18/2022 1:22 PM EST) Neutrophil % 60.0 % [facility] Neutrophil Absolute 4.37 1.70 - 6.10 x10(3)/[facility] Lymph % 29.2 % [facility] Lymphocytes Abs 2.1 0.9 - 3.2 x10(3)/[facility] Monocyte % 8.5 % [facility] Monocyte Abs 0.6 0.3 - 0.9 x10(3)/[facility] Eos % 1.2 % [facility] Eosinophils Abs 0.1 0.0 - 0.4 x10(3)/[facility] Basophil % 1.0 % [facility] Baso Absolute 0.1 0.0 - 0.1 x10(3)/[facility] Immature Gran % 0.10 % [facility] Comment: Immature granulocytes(IG's)percentage and absolute count will include metamyelocytes, myelocytes, and promyelocytes. Blood smears from CBCs yielding IG's will be scanned manually for concordance. If this scan disagrees with the automated IG or if promyelocytes are noted, a manual differential will be performed. Immature Gran Absolute 0.01 0.00 - 0.04 x10(3)/[facility] Blood 03/18/2022 1:22 PM EST 03/18/2022 1:28 PM EST Narrative Resulting Agency Comment Spec In Lab Omid Manning MD HEMATOLOGY ORDERABLE S [facility] [place] [address] * (ABNORMAL) Hemogram (03/18/2022 1:22 PM EST) White Blood Cell 7.3 4.0 - 9.5 x10(3)/mc L [facility] Red Blood Cell 3.97(L) 4.00 - 5.21 x10(6)/mc L [facility] Hemoglobin 12.5 11.7 - 15.5 g/dL [facility] Hematocrit 35.1(L) 35.7 - 45.8 % [facility] Mean Cell Volume 88.4 82.6 - 94.4 [facility] Mean Cell Hemoglobin 31.5 27.1 - 32.0 pg [facility] Mean Cell Hemoglobin Concentration 35.6(H) 31.7 - 35.0 g/dL [facility] Platelet 103(L) 145 - 357 x10(3)/mc L [facility] RDW Standard Deviation 40.1 37.0 - 46.0 [facility] RDW coefficient of variation 12.4 11.5 - 14.1 % [facility] Mean Platelet Volume 9.0 7.6 - 12.9 [facility] NRBC% auto 0.0 % [facility] NRBC Absolute 0.000 0.000 - 0.000 x10(3)/mc L [facility] Blood 03/18/2022 1:22 PM EST 03/18/2022 1:28 PM EST Narrative Resulting Agency Comment Spec In Lab Omid Manning MD HEMATOLOGY ORDERABLE S [facility] [place] [address] * (ABNORMAL) Comprehensive metabolic panel (non-fasting) (03/18/2022 1:22 PM EST) Glucose 65 65 - 199 mg/dL [facility] Comment:Diabetes: >=200 mg/d L plus symptoms Blood Urea Nitrogen 18 8 - 18 mg/dL [facility] Creatinine 0.90 0.70 - 1.20 mg/dL [facility] Sodium 140 135 - 145 mmol/L [facility] Potassium 3.7 3.5 - 5.0 mmol/L [facility] Comment: Please note: ??Patients with WBC >100,000 may have falsely elevated Potassium levels. ??For accurate Potassium quantification in these patients send serum separator tube (gold top) for subsequent determinations. ??Contact the Clinical Chemistry Laboratory if there are any questions. Chloride 101 98 - 107 mmol/L [facility] Carbon Dioxide 30 22 - 31 mmol/L [facility] Anion Gap 9 5 - 15 mmol/L [facility] Calcium 9.8 8.5 - 10.5 mg/dL [facility] Protein, Total 8.6(H) 6.1 - 8.0 g/dL [facility] Albumin 4.6 3.2 - 5.2 g/dL [facility] Aspartate Aminotransferase 30 0 - 30 unit/L [facility] Alanine Aminotransferase 21 0 - 30 unit/L [facility] Alkaline Phosphatase 67 35 - 105 unit/L [facility] Bilirubin, Total 0.3 0.2 - 1.3 mg/dL [facility] Est Glomerular Filtration Rate 89 >=60 mL/min/1. 73 m?? [facility] Comment: This patient's estimated GFR [...] and symptoms in addition to eGFR. Blood 03/18/2022 1:22 PM EST 03/18/2022 1:28 PM EST Narrative Resulting Agency Comment Spec In Lab Omid Manning MD CHEMISTRY ORDERABLES [facility] [place] [address] documented in this encounter Visit Diagnoses Diagnosis HER2-positive carcinoma of right breast documented in this encounter Care Teams Personal Banking Officer Relationship Specialty Start Date End Date Charleen Williamson APRN [address] [place] [address] PCP - General Family Medicine 06/29/20 documented as of this encounter
--- OUTSIDE RECORDS SUMMARY | 2024-05-09 13:56 | XMS_ITS | Encounter Summary ---
Author Organization [facility] Address [facility] [place] [address] Care Team Providers Care Machine Stone Polisher Name Role Phone Charleen Williamson APRN Primary Care Provider +1 [phone] Reason for Visit * Reason Comments Medication Refill Encounter Details Date Type Department Care Team (Late st Contact Info) Description 04/23/2022 Refill [place]ology [place] [phone] Tyra Cornejo MD [facility] HEMATOLOGY [place] [address] Social History Tobacco Use Types Packs/Day Years [...] Telephone Encounter - Marisela Gonzalez RN - 04/23/2022 3:22 PM EST Received request via [employer] [facility] [employer] [place] for refill of meloxicam. Per review of medical record, refill appears to be appropriate. Last prescribed 09/2021 Script prepared and sent to provider for review, signature and escribe. documented in this encounter Plan of Treatment Upcoming Encounters Date Type Department Care Team (Late st Contact Info) Description 02/13/2025 1:00 PM EDT Office Visit Radiation Oncology at [address] [phone] Eleonora Mensah MD [facility] [place] [address] documented as of this encounter Visit Diagnoses Not on filedocumented in this encounter Care Teams Machine Stone Polisher Relationship Specialty Start Date End Date Charleen Williamson APRN [address] [place] [address] PCP - General Family Medicine 06/29/20 documented as of this encounter
--- OUTSIDE RECORDS SUMMARY | 2024-05-09 13:56 | XMS_ITS | Encounter Summary ---
Author Organization [facility] [place] [place] [address] Care Team Providers Care Parts Counterman Name Role Phone Charleen Williamson APRN Primary Care Provider [phone] [phone] Encounter Details Date Type Department Care Team (Latest Contact Info) Description 02/04/2022 3:00 PM EDT TH Visit (TeleHealth) Hematology [place] [address] Sharon Desir Adjustment disorder with mixed anxiety and depressed mood Social History Tobacco Use Types Packs/Day Years [...] encounter Progress Notes * Sharon Desir - 02/04/2022 3:00 PM EDT [facility] PSYCHO[facility]ONCOLOGY FOLLOW-UP [facility] HEMATOLOGY AND ONCOLOGY AT [facility] [address] Dept: [phone] Loc: [phone] 02/04/2022 2:00 PM Time spent: 45 minutes. Location: Telehealth. Alis Silva gave permission for and was seen for today's appointment with a Telehealth visit. During this visit they were located [place]. Alis Silva is aware that for any urgent matter they can call [phone]. Attendees: Patient SESSION #: 6 CHIEF COMPLAINT Adjustment to cancer dx and tx GOALS FOR THERAPY ??? Reduce anxiety and depressive symptoms ??? Improve coping with uncertainty and fear of recurrence S/O Since the previous session, Alis Silva reported that she was experiencing some worries related to cancer recurrence and current living situations, including her job, money, and apartment. Today's session focused on identifying values and setting SMART goals that are in line with those values. She reported obtaining a job as one of her values but is worried about her fatigue interfering her ability to maintain work at a new place and that she will not get any job offers. She reportedthat these thoughts evoke anxiety, which result in her avoiding job applications. Alis identifieda SMART goal to apply for 3 jobs within the next 2 weeks. Diagnosis: Adjustment disorder with mixed anxiety and depressed mood Mental Status: No SI. Mental status WNL. Fully engaged in therapy process. P In between sessions, Alis will practice deep breathing when she is feeling anxious and apply for three jobs. Follow-up appointment scheduled for return in 1 month. Alis Silva has my contact information and was encouraged to reach out to me in the future as needed. * Lacy Barroso, PhD - 02/04/2022 3:00 PM EDT I have reviewed this note and agree with the plan and treatment Lacy Barroso, PhD documented in this encounter Plan of Treatment Upcoming Encounters Date Type Department Care Team (Late st Contact Info) Description 02/13/2025 1:00 PM EDT Office Visit Radiation Oncology at [address] [phone] Eleonora Mensah MD [facility] [place] [address] documented as of this encounter Visit Diagnoses Diagnosis Adjustment disorder with mixed anxiety and depressed mood documented in this encounter Care Teams Parts Counterman Relationship Specialty Start Date End Date Charleen Williamson APRN [address] [place] [address] PCP - General Family Medicine 06/29/20 documented as of this encounter
--- OUTSIDE RECORDS SUMMARY | 2024-05-09 13:57 | XMS_ITS | Encounter Summary ---
Author Organization [place] [address] Care Team Providers Care Pickler Helper Name Role Phone Charleen Williamson APRN Primary Care Provider [phone] [phone] Reason for Visit * Reason Comments Advice Only Right breast recon - hx of mastectomy * Consultation (Routine) - Closed Specialty Diagnoses / Procedures Referred By Fawn weston Referred To Contact Plastic Surgery Diagnoses Malignant 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, estrogen receptor positive Tyra Cornejo MD [facility] [address] HEMATOLOGY [place] [address] [facility] [address] [place] [address] Referral ID Status Reason Start Date Expiration Date V isits Requested Visits Authorized [id number] Closed Specialty Service Requested 11/07/2021 11/07/2022 1 1 Encounter Details Date Type Department Care Team (Late st Contact Info) Description 12/18/2021 2:00 PM EDT Office [place] [address] Collin Molina MD [facility] [place] [address] Personal history of breast cancer Social History Tobacco Use Types Packs/Day Years Used Date Smoking Tobacco: Never Smokeless Tobacco: Never Alcohol Use Standard Drinks/Week Comments Not Currently 0 (1 standard drink = 0.6 oz pur e alcohol) Overall Financial Resource Strain (CARDIA) Arpitae r Date Recorded How hard is it [...] - Inhaled Oxygen Concentration - - Weight 79.8 kg (176 lb) 12/18/2021 1:57 PM EDT Height 172.7 cm (5' 8) 12/18/2021 1:57 PM EDT Body Mass Index 26.76 12/18/2021 1:57 PM EDT documented in this encounter Progress Notes * Collin Molina MD - 12/18/2021 2:00 PM EDT Plastic Surgery Consultation Note Collin Molina MD. PCP: Charleen Williamson APRN DEVELOPMENTAL SERVICES WORKER: Eulalio Hunt MD. CC: breast reconstruction HPI: Alis Silva is a 31 y.o. female here in consultation, accompanied by her for today's visit. She had a right mastectomy done on 01/03/[address] Hunt. She reports that she is on the fence about having reconstruction. She notes that at the time of her mastectomy, Dr. Hunt did not want her to have immediate reconstruction due to the severity of her cancer. She denies use of tobacco or vape products. The patient is otherwise healthy. No heart, lung, breathing, liver, kidney, hepatitis, diabetes, thyroid, seizure issues, bleeding or blood clotting disorder. The patient has had surgeries in the past. She notes that she takes a long time to wake up after anesthesia. She works at her [employer]. No past medical history on file. Past Surgical History: Procedure Laterality Date ??? IR MEDIPORT PLACEMENT 07/23/2020 IR Mediport Placement [facility] INTERVENTIONL RAD ??? MAMMO US BIOPSY LYMPH NODE RIGHT Right 06/29/2020 Mammo US Biopsy Lymph Node Right 06/29/2020 Danni Osuna MD [facility] RAD MAMMOGRAPHY ??? MAMMO US BIOPSY RIGHT Right 06/29/2020 Mammo Us Biopsy Right 06/29/2020 Danni Osuna MD [facility] RAD MAMMOGRAPHY ??? MAMMO US NEEDLE LOCALIZATION RIGHT Right 01/03/2021 Mammo US Needle Localization Right 01/03/2021 Mili Burgos MD [facility] RAD MAMMOGRAPHY ??? MRI GUIDED BIOPSY BREAST VACUUM ASSISTED LEFT Left 07/18/2020 MRI Guided Biopsy Breast Vacuum Assisted Left 07/18/2020 [facility] RAD MRI ??? PRO BX/REMV, LYMPH NODE, DEEP AXILL Right 01/03/2021 BIOPSY OR EXCISION OF LYMPH NODE(S), OPEN, DEEP AXILLARY NODE(S) (WRVU 6.43) performed by Eulalio Hunt MD at [facility] MAIN OR ??? PRO EXCISE BREAST LES W XRAY MARKER Right 01/03/2021 EXCISION LESION, BREAST W/ PREOP.MARKER (NEEDLE LOC.) (WRVU 6.69) performed by Eulalio Hunt MDat [facility] MAIN OR ??? PRO INTRAOP SENTINEL LYMPH ID W/DYE INJECTION Right 01/03/2021 INTRAOPERATIVE ID (MAPPING) SENTINEL LYMPH NODE,INCLUDES INJECTION (WRVU 2.5) performed by Eulalio Hunt MD at [facility] MAIN OR ??? PRO MASTECTOMY, SIMPLE, COMPLETE Right 01/03/2021 MASTECTOMY, SIMPLE, COMPLETE (WRVU 15.85) performed by Eulalio Hunt MD at [facility] MAIN OR ??? PRO REMOVE ARMPITS LYMPH NODES COMPLT Right 01/28/2021 LYMPHADENECTOMY, AXILLARY, COMPLETE (WRVU 13.87) performed by Eulalio Hunt MD at [facility] OSC Social History Socioeconomic History ??? Marital status: Spouse name: Not on file ??? Number of children: Not on file ??? Years of education: Not on file ??? Highest education level: Not on file Occupational History ??? Not on file Tobacco Use ??? Smoking status: Never Smoker ??? Smokeless tobacco: Never Used Vaping Use ??? Vaping Use: Never used Substance and Sexual Activity ??? Alcohol use: Not Currently ??? Drug use: Never ??? Sexual activity: Not on file Other Topics Concern ??? 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 On Medicaid. Alis lives with her who is disabled and receives disability benefits. They also get food stamps, fuel assistance and use the local food pantry. Social Determinants of Health Financial Resource Strain: Medium Risk ??? Difficulty of Paying Living Expenses: Somewhat hard Food Insecurity: Food Insecurity Present ??? Worried About Running Out of Food in the Last Year: Sometimes true ??? Ran Out of Food in the Last Year: Never true Transportation Needs: No Transportation Needs ??? Lack of Transportation (Medical): No ??? Lack of Transportation (Non-Medical): No Physical Activity: Not on file Housing Stability: Low Risk ??? Unable to Pay for Housing in the Last Year: No ??? Number of Places Lived in the Last Year: 1 ??? Unstable Housing in the Last Year: No Allergies Allergen Reactions ??? Tegaderm [Transparent Dressings] Use alcohol and betadine, no biopatch. USE DUODERM Current Outpatient Medications on File Prior to Visit Medication Sig Dispense Refill ??? vortioxetine (Trintellix) [...] 3 ??? Miscellaneous Medical Supply Misc by [facility].(Non-Drug; Combo Route) route. Remedy [...] MOUTH EVERY 8 HOURS NEEDED FOR ANXIETY ??? RX ADULT COMPOUNDED MEDICATION After cleansing, apply topically to the fissure twice daily for four weeks. (Patient not taking: No sig reported) 1 each 0 ??? silver sulfADIAZINE (Silvadene) 1 % Cream Apply as often as needed to irradiated area. (Patientnot taking: No sig reported) 50 g 0 Current Facility-Administered Medications on File Prior to Visit Medication Dose Route Frequency Provider Last Rate Last Admin ??? sodium chloride 0.9 % (flush) (BD PosiFlush Normal Saline 0.9) flush 5-20 mL 5-20 mL Intravenous Q1 Min PRN Tyra Cornejo MD 20 mL at 12/18/21 0836 ??? [COMPLETED] palonosetron (Aloxi) (0.05 mg/mL) injection 0.25 mg 0.25 mg Intravenous Once Tyra Cornejo MD 0.25 mg at 12/18/21 1205 ??? [COMPLETED] dexAMETHasone (PF) (Decadron) (10 mg/mL) injection 10 mg 10 mg Intravenous Once Tyra Cornejo MD 10 mg at 12/18/21 1201 ??? [COMPLETED] goserelin (ZOLADEX) implant 10.8 mg 10.8 mg Subcutaneous Once Tyra Cornejo MD 10.8 mg at 12/18/21 1207 ??? [COMPLETED] ado-TRASTuzumab emtansine (Kadcyla) 300 mg in sodium chloride 0.9% 265 mL infusion 300 mg Intravenous Once Tyra Cornejo MD Stopped at 12/18/21 1259 ??? heparin (pf) (porcine) (100 units/mL) flush 5 mL syringe 500 Units 500 Units Intravenous Once PRN Tyra Cornejo MD 500 Units at 12/18/21 1312 ROS: HEENT, GI, /Renal, Psych, Card, Pulm, Endo, Heme, Immun, Neuro: negative Examination: Ht 172.7 cm (5' 8) Wt 79.8 kg (176 lb) BMI 26.76 kg/m?? Constitutional: No acute distress Right chest wall incisional scar Large pendulous [place] left breast Some evidence of pectus excavatum Indwelling left upper chest mediport Incisional scar on right extends to axilla No palpable masses or lesions Grade I abdominal pannus Enough abdominal soft tissue to make breast of smaller size Latissimus muscles fire symmetrically bilaterally Pt has lymphedema and wears a lymphedema glove on right hand Breast Measurements Right Left Ptosis Grade II-III SN-N (cm) 31 cm IMF-Nipple (cm) 14 cm Impression: Alis Silva is a 31 y.o. female patient here in consultation for right breast reconstruction. We discussed different reconstruction options including a NOEL flap, Latissimus flap with an implant. We discussed reducing her left breast to help with symmetry which could be done at thesame time of reconstruction or at a later time. We dicussed either changing Tamoxifen to a different drug or stopping 1 month prior to surgery. Post-operative restrictions include no lifting, pushing, or pulling more than 5lbs for 4-6 weeks. We discussed that they should expect 70% of their result at 3 month's post op. Walking is fine and encouraged. General risks of surgery including reconstruction: Bleeding; delayed healing; asymmetry; tissue or flap loss; delayed inset or need for revision; immediate versus staged reconstruction of nipple-areolar complex. Latissimus dorsi complications: asymmetry; loss of terminal extension of the arm; donor scar; prolonged drainage and high rate of seroma formation. TRAM Flap: Flap loss or failure, fat necrosis, hernia or bulge, loss of umbilical remnant, need forrevision. Free flap or NOEL flap complications: Flap loss or failure, microvascular anastomotic complications, fat necrosis, hernia or bulge, pneumothorax, loss of umbilical remnant, need for revision. Reduction mammoplasty/Mastopexy complications: tissue or nipple loss; fat necrosis. Implant related complications: The specific risks of implants were reviewed and she was provided with an ASPS informed consent document, the IOM report summary on the safety of silicone implants and the [place] brochure: Silicone implants, making an informed decision. We reviewed the general risksof implant reconstruction including: upper pole fullness, asymmetry, implant rupture, migration, infection, or contracture; visible rippling or waviness from the implant, likely need for revision or further surgery in the future. Plan: 1. Follow up in 6 months. 2. Re-send DANIEL video. Susana Darnell, am acting as scribe for Dr. Molina. All work documented was performed by Dr. Molina. ICOLLIN MD, performed the services which were documented by the scribe, and I agree withthe accuracy of the documentation in this encounter. documented in this encounter Plan of Treatment Upcoming Encounters Date Type Department Care Team (Late st Contact Info) Description 02/13/2025 1:00 PM EDT Office Visit Radiation Oncology at [address] [address] Eleonora Mensah MD [facility] [place] [address] Scheduled Referrals Name Type Priority Associated Diagnoses Orde r Schedule Referral to Plastic Surgery Outpatient Referral Routine Malignant 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, estrogen receptor positive Ordered: 11/07/2021 documented as of this encounter Visit Diagnoses Diagnosis Personal history of breast cancer Personal history of malignant neoplasm of breast documented in this encounter Care Teams Pickler Helper Relationship Specialty Start Date End Date Charleen Williamson APRN [address] [place] [address] PCP - General Family Medicine 06/29/20 documented as of this encounter
--- OUTSIDE RECORDS SUMMARY | 2024-05-09 13:57 | XMS_ITS | Encounter Summary ---
Author Organization [facility] Address [facility] [place] [address] Care Team Providers Care Solar Energy Technician Name Role Phone Charleen Williamson APRN Primary Care Provider +1 [phone] Reason for Visit * Treatment/Therapy Plan Authorization (Routine) - Closed Specialty Diagnoses / Procedures Referred By Contac t Referred To Contact Diagnoses 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, estrogen receptor positive Procedures INJ, ADO-TRASTUZUMAB EMT 1MG TC GOSERELIN ACETATE IMPLANT, 3.6MG (ZOLADEX) TC PALONOSETRON HCL, 25MCG, INJECTION (ALOXI) Tyra Cornejo MD [facility] [address] HEMATOLOGY [place] [address] [facility] Hem Onc Office [address] [place] [phone] Referral ID Status Reason Start Date Expiration Date Visits Re quested Visits Authorized [id number] Closed 03/01/2021 04/26/2022 99 99 Encounter Details Date Type Department Care Team (Latest Contact Info) Description 11/27/2021 8:03 AM EDT - 11/27/2021 11:59 PM EDT Hospital Encounter [place]ology [place] [address] Malignant neoplasm of overlapping sites of right [...] EVERY 8 HOURS NEEDED FOR ANXIETY 07/09/2020 vortioxetine (Trintellix) 10 mg Tablet Take 1 tablet by mouth daily. 30 tablet 3 11/25/2021 12/10/2021 meloxicam (MOBIC) 7.5 mg Tablet Take 1 [...] 06/18/2022 Miscellaneous Medical Supply Misc by [facility].(Non-Drug; Combo Route) [...] as of this encounter Progress Notes * Hilda Marin RN - 11/27/2021 8:30 AM EDT Patient Name: Alis Silva Patient Age: 31 y.o. Birthdate: 1990 Admit date: 11/27/2021 Attending Physician: No att. providers found Access visit. See MAR and/or flowsheet. documented in this encounter Plan of Treatment Upcoming Encounters Date Type Department Care Team (Late st Contact Info) Description 02/13/2025 1:00 PM EDT Office Visit Radiation Oncology at [address] [address] Eleonora Mensah MD [facility] [address] RADIATION [place] [address] documented as of this encounter Procedures Procedure Name Priority Date/Time Associated Diagnosis Comments HEMOGRAM STAT 11/27/2021 8:29 AM EDT 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, estrogen receptor positive DIFFERENTIAL, AUTOMATED STAT 11/27/2021 8:29 AM EDT 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, estrogen receptor positive HC CBC,PLT & AUTO DIFF STAT 8:29 AM EDT 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, estrogen receptor positive COMPREHENSIVE METABOLIC PANEL STAT 11/27/2021 8:29 AM EDT 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, estrogen receptor positive documented in this encounter Results * Differential, Automated (11/27/2021 8:29 AM EDT) Pathologist [facility] Neutrophil % 52.6 % [facility] Neutrophil Absolute 2.86 1.70 - 6.10 x10(3)/[facility] Lymph % 32.8 % [facility] Lymphocytes Abs 1.8 0.9 - 3.2 x10(3)/[facility] Monocyte % 11.8 % [facility] Monocyte Abs 0.6 0.3 - 0.9 x10(3)/[facility] Eos % 1.7 % [facility] Eosinophils Abs 0.1 0.0 - 0.4 x10(3)/[facility] Basophil % 0.9 % [facility] Baso Absolute 0.0 0.0 - 0.1 x10(3)/[facility] Immature Gran % 0.20 % [facility] Comment: Immature granulocytes(IG's)percentage and absolute count will include metamyelocytes, myelocytes, and promyelocytes. Blood smears from CBCs yielding IG's will be scanned manually for concordance. If this scan disagrees with the automated IG or if promyelocytes are noted, a manual differential will be performed. Immature Gran Absolute 0.01 0.00 - 0.04 x10(3)/[facility] Blood 11/27/2021 8:29 AM EDT 11/27/2021 8:43 AM EDT Narrative Resulting Agency Comment Spec In Lab Tyra Cornejo MD HEMATOLOGY ORDERABL ES [facility] [place] [address] * (ABNORMAL) Hemogram (11/27/2021 8:29 AM EDT) Pathologist [facility] White Blood Cell 5.4 4.0 - 9.5 x10(3)/mc L [facility] Red Blood Cell 3.68(L) 4.00 - 5.21 x10(6)/mc L [facility] Hemoglobin 11.3(L) 11.7 - 15.5 g/dL [facility] Hematocrit 32.1(L) 35.7 - 45.8 % [facility] Mean Cell Volume 87.2 82.6 - 94.4 fL [facility] Mean Cell Hemoglobin 30.7 27.1 - 32.0 pg [facility] Mean Cell Hemoglobin Concentration 35.2(H) 31.7 - 35.0 g/dL [facility] Platelet 96(L) 145 - 357 x10(3)/[facility] RDW Standard Deviation 39.9 37.0 - 46.0 [facility] RDW coefficient of variation 12.4 11.5 - 14.1 % [facility] Mean Platelet Volume 8.8 7.6 - 12.9 [facility] NRBC% auto 0.0 % [facility] NRBC Absolute 0.000 0.000 - 0.000 x10(3)/[facility] Blood 11/27/2021 8:29 AM EDT 11/27/2021 8:43 AM EDT Narrative Resulting Agency Comment Spec In Lab Tyra Cornejo MD HEMATOLOGY ORDERABL ES [facility] [place] [address] * (ABNORMAL) Comprehensive metabolic panel (non-fasting) (11/27/2021 8:29 AM EDT) Glucose 93 65 - 199 mg/dL [facility] Comment:Diabetes: >=200 mg/d L plus symptoms Blood Urea Nitrogen 10 8 - 18 mg/dL [facility] Creatinine 0.69(L) 0.70 - 1.20 mg/dL [facility] Sodium 140 135 - 145 mmol/L [facility] Potassium 4.2 3.5 - 5.0 mmol/L [facility] Comment: Please note: ??Patients with WBC >100,000 may have falsely elevated Potassium levels. ??For accurate Potassium quantification in these patients send serum separator tube (gold top) for subsequent determinations. ??Contact the Clinical Chemistry Laboratory if there are any questions. Chloride 103 98 - 107 mmol/L [facility] Carbon Dioxide 28 22 - 31 mmol/L [facility] Anion Gap 9 5 - 15 mmol/L [facility] Calcium 9.4 8.5 - 10.5 mg/dL [facility] Protein, Total 7.9 6.1 - 8.0 g/dL [facility] Albumin 4.3 3.2 - 5.2 g/dL [facility] Aspartate Aminotransferase 43(H) 0 - 30 unit/L [facility] Alanine Aminotransferase 39(H) 0 - 30 unit/L [facility] Alkaline Phosphatase 66 35 - 105 unit/L [facility] Bilirubin, Total <0.2(L) 0.2 - 1.3 mg/dL [facility] Est Glomerular Filtration Rate 120 >=60 mL/min/1. 73 m?? [facility] Comment: This patient's estimated GFR was [...] and symptoms in addition to eGFR. Blood 11/27/2021 8:29 AM EDT 11/27/2021 8:43 AM EDT Narrative Resulting Agency Comment Spec In Lab Tyra Cornejo MD CHEMISTRY ORDERABLE S [facility] [place] [place] [address] documented in this encounter Visit Diagnoses Diagnosis [...] Intravenous, EVERY 1 MIN PRN, Starting on Thu11/27/21 at 0807, Until Alannah 11/28/21 at 0434, Line Care, Flush pertains to all indwelling lines. Flush per protocol found in the job aid using the link provided on this medication record. Refer to Intravenous (IV) Job Aid: Adult Flushing & Catheter Care (7936) job aid for additional information regarding guidelines and administration., Routine Given 11/27/2021 8:30 AM EDT 20 mLs documented in this encounter Care Teams Solar Energy Technician Relationship Specialty Start Date End Date Charleen Williamson APRN [address] [place] [address] PCP - General Family Medicine 06/29/20 documented as of this encounter
--- OUTSIDE RECORDS SUMMARY | 2024-05-09 13:57 | XMS_ITS | Encounter Summary ---
Author Organization [facility] Address [facility] [place] [address] Care Team Providers Care Rinkman Name Role Phone Charleen Williamson APRN Primary Care Provider +1 -[phone] Reason for Visit * Reason Onset Date Comments Medication Refill 12/09/2021 Encounter Details Date Type Department Care Team (Late st Contact Info) Description 12/09/2021 Refill Hematology [place] [address] Tyra Cornejo MD [facility] HEMATOLOGY [place] [address] Social History Tobacco Use Types Packs/Day Years [...] EDT Office Visit Radiation Oncology at [address] [address] Eleonora Mensah MD [facility] [place] [address] documented as of this encounter Visit Diagnoses Not on filedocumented in this encounter Care Teams Rinkman Relationship Specialty Start Date End Date Charleen Williamson APRN [address] [place] [address] PCP - General Family Medicine 06/29/20 documented as of this encounter
--- OUTSIDE RECORDS SUMMARY | 2024-05-09 13:57 | XMS_ITS | Encounter Summary ---
Author Organization [facility] [place] [address] Care Team Providers Care Radiology Therapist Name Role Phone Charleen Williamson APRN Primary Care Provider +1 -[phone] Encounter Details Date Type Department Care Team (Late st Contact Info) Description 11/25/2021 Orders [place] [id number] Jossy Yancey APRN [facility] [place] [address] Social History Tobacco Use Types Packs/Day Years [...] EDT Office Visit Radiation Oncology at [address] [phone] [facility] [address] [place] [address] documented as of this encounter Visit Diagnoses Not on filedocumented in this encounter Care Teams Radiology Therapist Relationship Specialty Start Date End Date Charleen Williamson APRN [address] [place] [address] PCP - General Family Medicine 06/29/20 documented as of this encounter
--- OUTSIDE RECORDS SUMMARY | 2024-05-09 13:57 | XMS_ITS | Encounter Summary ---
Author Organization [facility] [place] [address] Care Team Providers Care Cheese Blender Name Role Phone Charleen Williamson APRN Primary Care Provider +1 -[phone] Encounter Details Date Type Department Care Team (Latest Contact Info) Description 11/26/2021 2:00 PM EDT TH Visit (TeleHealth) [place]ology [place] [address] Sharon Desir Adjustment disorder with [...] place to sleep or slept in a usp (including now)? No 04/23/2021 Sex and Gender Information Value Date Recorded Sex Assigned at Female 07/19/2020 8:39 AM EDT Gender Identity Female 08/04/2022 1:11 PM EDT Sexual Orientation Straight 08/04/2022 1: 11 PM EDT documented as of this encounter Progress Notes * Sharon Desir - 11/26/2021 2:00 PM EDT [facility] PSYCHO-ONCOLOG[facility] FOLLOW-UP N [facility] HEMAT[facility] ONCOL[facility]Y AT [facility] [address] Dept: [phone] Loc: [phone] 11/26/2021 1:00 PM Time spent: 45 minutes. Location: Telehealth. Alis Silva gave permission for and was seen for today's appointment with a Telehealth visit. During this visit they were located [place]. Alis Silva is aware that for any urgent matter they can call [phone]. Attendees: Patient SESSION #: 3 CHIEF COMPLAINT Adjustment to cancer dx and tx GOALS FOR THERAPY ??? Reduce anxiety and depressive symptoms ??? Improve coping with uncertainty and fear of recurrence S/O Since the previous session, Alis Silva reported that she has experienced increased depressivesymptoms and is in process of changing her medications. She expressed some frustrations over her symptoms not improving. 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 Today's session focused on establishing rapport and re-establishing treatment goals. Alis identified activities that she can engage in to improve her mood and depressive symptoms, including reading, spending time with her dogs, and camping. She continues to report anxiety symptoms, which are particularly elevated when she has an upcoming scan as she worries that it will reveal bad news. She reported feeling fidgety and nervous but feels better when taking her propanolol. Alis and Clinician discussed mindfulness skills that she may utilize to decrease awareness to anxiety and increase awareness to the present. Clinician introduced the 5-4-3-2-1 skill and Alis engaged with this during . A Diagnosis: Adjustment disorder with mixed anxiety and depressed mood Mental Status: No SI. Mental status WNL. Fully engaged in therapy process. P Between sessions, Alis agreed to practice the 5-4-3-2-1 skill at least once. She endorsed a desire to complete this when she is feeling anxious about her scans that are scheduled for Thursday. Follow-up appointment scheduled for return in 2 weeks. Alis Silva has my contact information and was encouraged to reach out to me in the future as needed. * Lacy Barroso, PhD - 11/26/2021 2:00 PM EDT I have reviewed this note and agree with the plan and treatment Lacy Barroso, PhD documented in this encounter Plan of Treatment Upcoming Encounters Date Type Department Care Team (Late st Contact Info) Description 02/13/2025 1:00 PM EDT Office Visit Radiation Oncology at [address] [address] Eleonora Mensah MD [facility] [place] [address] documented as of this encounter Visit Diagnoses Diagnosis Adjustment disorder with mixed anxiety and depressed mood documented in this encounter Care Teams Cheese Blender Relationship Specialty Start Date End Date Charleen Williamson APRN [address] [place] [address] PCP - General Family Medicine 06/29/20 documented as of this encounter
--- OUTSIDE RECORDS SUMMARY | 2024-05-09 13:57 | XMS_ITS | Encounter Summary ---
Author Organization [facility] [place] [address] Care Team Providers Care Muck Miner Blasting Name Role Phone Charleen Williamson APRN Primary Care Provider +1 -[phone] Encounter Details Date Type Department Care Team (Late st Contact Info) Description 11/07/2021 Telephone [place] [address] Susana Clemente Social History Tobacco Use Types Packs/Day Years [...] encounter Miscellaneous Notes * Telephone Encounter - Susana Clemente - 11/07/2021 4:54 PM EDT radha documented in this encounter Plan of Treatment Upcoming Encounters Date Type Department Care Team (Late st Contact Info) Description 02/13/2025 1:00 PM EDT Office Visit Radiation Oncology at [address] [address] Eleonora Mensah MD [facility] [place] [address] documented as of this encounter Visit Diagnoses Not on filedocumented in this encounter Care Teams Muck Miner Blasting Relationship Specialty Start Date End Date Charleen Williamson APRN [address] [place] [address] PCP - General Family Medicine 06/29/20 documented as of this encounter
--- OUTSIDE RECORDS SUMMARY | 2024-05-09 13:57 | XMS_ITS | Encounter Summary ---
Author Organization [facility] Address [facility] [place] [address] Care Team Providers Care Forensic Pathologist Name Role Phone Charleen Williamson APRN Primary Care Provider +1 -[phone] Reason for Visit * Reason Comments Chemotherapy Kadcyla/zoladex * Treatment/Therapy Plan Authorization (Routine) - Closed Specialty Diagnoses / Procedures Referred By Fawn weston Referred To Contact Diagnoses 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, estrogen receptor positive Procedures INJ, ADO-TRASTUZUMAB EMT 1MG TC GOSERELIN ACETATE IMPLANT, 3.6MG (ZOLADEX) TC PALONOSETRON HCL, 25MCG, INJECTION (ALOXI) Tyra Cornejo MD [facility] [place] [address] [facility] Hem Onc Office [address] [place] [phone] Referral ID Status Reason Start Date Expiration Date Visits Re quested Visits Authorized [id number] Closed 03/01/2021 04/26/2022 99 99 Encounter Details Date Type Department Care Team (Latest Contact Info) Description 12/18/2021 8:16 AM EDT - 12/18/2021 11:59 PM EDT Hospital Encounter [place] [address] Malignant neoplasm of overlapping sites of right [...] HOURS NEEDED FOR ANXIETY 07/09/2020 vortioxetine (Trintellix) 20 mg Tablet Take 1 [...] 04/18/2021 06/18/2022 Miscellaneous Medical Supply Misc by [facility].(Non-Drug; Combo Route) route. Remedy Phytoplex Moisturizer. Apply [...] Progress Notes * Jossy Ghotra RN - 12/18/2021 12:34 PM EDT Patient Name: Alis Silva Patient Age: 31 y.o. Birthdate: 1990 Admit date: 12/18/2021 Attending Physician: Shila att. providers found TIME TREATMENT STARTED: 1100 TIME TREATMENT ENDED: 1312 Alis Silva, 31 y.o. female with diagnosis of 1. 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, estrogen receptor positive is here for chemotherapy infusion of kadcyla and zoladex injection. PROTOCOL: NA CYCLE: 12 DAY: 1 S: Pt. offers no complaints at this time. Chemo checks performed per policy. Reviewed plan of care for Infusion visit, patient verbalized understanding of plan as outlined. Patient discharged to home O: Patient's Chemotherapy orders independently verified for correct drug name, route and dosage perpatient's height, weight and BSA by Jossy Ghotra RN and Pharmacist. REACTIONS (DESCRIPTION, TIME, INTERVENTION AND EFFECTIVENESS) None noted. A: Pt. Tolerated treatment well. Alis Silva confirms that all questions and issues have been addressed. Fluid intake, exercise, watching for a fever and handwashing discussed with patient. Pt deferred 30 min observation. P: Return to clinic per routine. documented in this encounter Plan of Treatment Upcoming Encounters Date Type Department Care Team (Late st Contact Info) Description 02/13/2025 1:00 PM EDT Office Visit Radiation Oncology at [address] [address] Eleonora Mensah MD [facility] [place] [address] documented as of this encounter Visit Diagnoses [...] 300 mg, Intravenous, ONCE, 1 dose, On Thu12/18/21 at 1215, Administer over 30 Minutes, Monitor patient for ado-trastuzumab emtansine infusion reactions 30 minutes after each subsequent dose if the first dose was well-tolerated. Dose Ordered = 303 mg (3.6 mg/kg). Pharmacist rounded dose per procedure., This agent is restricted to outpatient use. Is this drug being given as an outpatient? Yes New Bag 12/18/2021 12:29 PM EDT 300 mg 530 mL/hr dexAMETHasone (PF) (Decadron) (10 mg/mL) injection 10 mg 10 mg, Intravenous, ONCE, 1 dose, On Thu12/18/21 at 1115 Given 12/18/2021 12:01 PM EDT 10 mg goserelin (ZOLADEX) implant 10.8 mg 10.8 mg, Subcutaneous, ONCE, 1 dose, On Thu12/18/21 at 1115, Routine, This agent is restricted to outpatient use. Is this drug being given as an outpatient? Yes Given 12/18/2021 12:07 PM EDT 10.8 mg Right Lower Quadrant heparin (pf) (porcine) (100 units/mL) flush 5 mL syringe 500 Units 500 Units, Intravenous, ONCE PRN, Starting on Thu12/18/21 at 1057, Until Alannah 12/19/21 at 0434, Line Care, Refer to Intravenous (IV) Procedure: Accessing Implanted Vascular Access Devices (648) procedure and/or Intravenous (IV) Job Aid: Adult Flushing & Catheter Care (9821) job aid for additional information regarding guidelines and administration., Routine Given 12/18/2021 1:12 PM EDT 500 Units palonosetron (Aloxi) (0.05 mg/mL) injection 0.25 mg 0.25 mg, Intravenous, ONCE, 1 dose, On Thu12/18/21 at 1115, Routine Given 12/18/2021 12:05 PM EDT 0.25 mg documented in this encounter Care Teams Forensic Pathologist Relationship Specialty Start Date End Date Charleen Williamson APRN [address] [place] [address] PCP - General Family Medicine 06/29/20 documented as of this encounter
--- OUTSIDE RECORDS SUMMARY | 2024-05-09 13:57 | XMS_ITS | Encounter Summary ---
[place] [address] Care Team Providers Care Chief Mate Name Role Phone Charleen Williamson APRN Primary Care Provider [phone] [phone] Encounter Details Date Type Department Care Team (Late st Contact Info) Description 12/05/2021 Telephone Hematology [place] [address] Sarah Mckinney, RN Social History Tobacco Use Types Packs/Day [...] encounter Miscellaneous Notes * Telephone Encounter - Sarah Mckinney RN - 12/05/2021 8:56 AM EDT Caller: Alis Relationship: Self Clarified Two Patient Identifiers: [] Reason For Call: No chief complaint on file. Assessment/Symptom Review (onset, location, duration, what makes it better or worse, pertinent positives and negatives): Spoke to patient regarding myDH message and complaint of pain. Patient reports that she has right side rib pain. Denies obvious injury to the area.Reports that pain is improved, currently 2/10 at rest and 6/10 with activity. Patient is currently taking two 7.5mg tablets of meloxicam in the morning.Patient reports that tylenol extra strength does help. She is currently taking it as needed, 2 tablets once or twice daily. Advised patient that the maximum dose of meloxicam is 2 tablets daily. Advised patient not to increase meloxicam dose. Advised patient that she could continue taking tylenol as needed. Advised patient that I would follow up with provider. Currently patient verbalized that pain is tolerable and improved, advised patient to seek emergency evaluation if pain became severe. Patient verbalized understanding. Review of Systems Related to Reason for Call: System POS NEG Not Applicable Head (ENT /Neuro) [] [] [] Cardiac [] [] [] Respiratory [] [] [] GI [] [] [] [] [] [] Musculoskeletal [x] [] [] Integumentary [] [] [] Mental Health [] [] [] Select Specific Decision Support Tool Used: None available, provider to review Name of Guideline/Protocol Used: N/A Disposition/Plan of Care: Defer to provider recommendation Patient/Caregiver verbalizes understanding of plan of care: Yes Patient/Caregiver agrees with plan: Yes Advised patient/caregiver to: call office back for any new or worsening symptoms Patient/Caregiver demonstrates understanding via teach back: Yes * Telephone Encounter - Sarah Mckinney RN - 12/05/2021 8:51 AM EDT ----- Message from Alis Silva sent at 12/04/2021 6:26 PM EDT ----- Regarding: Meloxicam Hi wondering if you have heard anything back from Dr Cornejo? My right side is still bothering me, not as bad but I definitely notice it if I???m doing much of anything. Also when I sneeze it still hurts bad which is making me think it might be my ribs. I guess what I need to know is if I can take meloxicam twice a day or not and if Tylenol is my only other option for pain? documented in this encounter Plan of Treatment Upcoming Encounters Date Type Department Care Team (Late st Contact Info) Description 02/13/2025 1:00 PM EDT Office Visit Radiation Oncology at [address] [phone] Eleonora Mensah MD [facility] [place] [address] documented as of this encounter Visit Diagnoses Not on filedocumented in this encounter Care Teams Chief Mate Relationship Specialty Start Date End Date Charleen Williamson APRN [address] [place] [address] PCP - General Family Medicine 06/29/20 documented as of this encounter
--- OUTSIDE RECORDS SUMMARY | 2024-05-09 13:57 | XMS_ITS | Encounter Summary ---
[facility] Organization [facility] [place] [address] Care Team Providers Care Audio Visual Project Manager Name Role Phone Charleen Williamson APRN Primary Care Provider [phone] [phone] Encounter Details Date Type Department Care Team (Latest Contact Info) Description 01/07/2022 3:00 PM EDT TH Visit (TeleHealth) Hematology [place] [address] Sharon Desir Adjustment disorder with [...] encounter Progress Notes * Sharon Desir - 01/07/2022 3:00 PM EDT [facility] PSYCHO-ONCOLOGY FOLLOW-UP N [facility] HEMATOLOGY AND ONCOLOGY AT [facility] [address] Dept: [phone] Loc: [phone] 01/07/2022 2:00 PM Time spent: 45 minutes. Location: Telehealth. Alis Silva gave permission for and was seen for today's appointment with a Telehealth visit. During this visit they were located [place]. Alis Silva is aware that for any urgent matter they can call [phone]. Attendees: Patient SESSION #: 5 CHIEF COMPLAINT Adjustment to cancer dx and tx GOALS FOR THERAPY ??? Reduce anxiety and depressive symptoms ??? Improve coping with uncertainty and fear of recurrence S/O Since the previous session, Alis Silva reported that she was experiencing some worries related to cancer recurrence after she finishes her infusion treatments. She reported feeling overall restless and anxious with no specific thoughts causing this general anxiety. Today's session focused on identifying coping and relaxation skills to help with her generalized anxiety. We discussed how to practice relaxation despite feeling anxious. We practiced diaphragmatic breathing in session, and discussed how to notice intrusive, anxious thoughts and return focus back to breathing. Diagnosis: Adjustment disorder with mixed anxiety and depressed mood Mental Status: No SI. Mental status WNL. Fully engaged in therapy process. P In between sessions, Alis will practice deep breathing when she is feeling anxious. Follow-up appointment scheduled for return in 1 month. Alis Silva has my contact information and was encouraged to reach out to me in the future as needed. * Lacy Barroso, PhD - 01/07/2022 3:00 PM EDT I have reviewed this note and agree with the plan and treatment Lacy Barroso, PhD documented in this encounter Plan of Treatment Upcoming Encounters Date Type Department Care Team (Late st Contact Info) Description 02/13/2025 1:00 PM EDT Office Visit Radiation Oncology at [address] [address] Eleonora Mensah MD [facility] [place] [address] documented as of this encounter Visit Diagnoses Diagnosis Adjustment disorder with mixed anxiety and depressed mood documented in this encounter Care Teams Audio Visual Project Manager Relationship Specialty Start Date End Date Charleen Williamson APRN [address] [place] [address] PCP - General Family Medicine 06/29/20 documented as of this encounter
--- OUTSIDE RECORDS SUMMARY | 2024-05-09 13:57 | XMS_ITS | Encounter Summary ---
[place] [address] Care Team Providers Care Process Development Technician Name Role Phone Charleen Williamson APRN Primary Care Provider [phone] Reason for Referral * Diagnostic Test (Routine) - Closed Specialty Diagnoses / Procedures Referred By Contac t Referred To Contact Radiology Diagnoses Malignant 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, estrogen receptor positive Procedures NM Bone Scan Whole Body Tyra Cornejo MD [facility] [address] HEMATOLOGY [place] [address] [place] [address] Referral ID Status Reason Start Date Expiration Date V isits Requested Visits Authorized [id number] Closed Specialty Service Requested 11/06/2021 05/09/2023 1 1 Reason for Visit * Diagnostic Test (Routine) - Closed Specialty Diagnoses / Procedures Referred By Contac t Referred To Contact Radiology Diagnoses Malignant 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, estrogen receptor positive Procedures NM Bone Scan Whole Body Tyra Cornejo MD [facility] [address] HEMATOLOGY [place] [address] [facility] [place] [address] Referral ID Status Reason Start Date Expiration Date V isits Requested Visits Authorized [id number] Closed Specialty Service Requested 11/06/2021 05/09/2023 1 1 Encounter Details Date Type Department Care Team (Latest Contact Info) Description 12/02/2021 8:40 AM EDT - 12/02/2021 9:10 AM EDT Hospital Encounter Nuclear Medicine at [facility] [place] [address] Tyra Cornejo MD [facility] [address] HEMATOLOGY [place] [address] Malignant neoplasm of central portion of right [...] 04/18/2021 06/18/2022 Miscellaneous Medical Supply Misc by [facility].(Non-Drug; Combo Route) route. Remedy Phytoplex Moisturizer. Apply [...] PM EDT Office Visit Radiation Oncology at [address] [address] Eleonora Mensah MD [facility] [place] [address] documented as of this encounter Procedures Procedure Name Priority Date/Time Associated Diagnosis Comments NM BONE SCAN WHOLE BODY Routine 12/02/2021 12:45 PM EDT Malignant 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, estrogen receptor positive documented in this encounter Results * NM Bone Scan Whole Body (12/02/2021 12:45 PM EDT) Anatomical Region Laterality Modality Nuclear Medicine Impressions 12/03/2021 11:28 AM EDT No definite skeletal metastases are present. Increased activity in multiple right-sided ribs is in a pattern most suggestive of fractures. Please correlate with a history of pain or trauma. If further clarification is needed, consider radiographs of the right-sided ribs. I have personally reviewed the image(s) and the resident's interpretation and agree with the findings, Finn Zhu MD at 12/03/2021 11:28 AM Thank you for letting us participate in the care of this patient. ??If you are a health care provider and have any questions regarding this report, please contact the number below. ??For patients who have questions please contact the health customer care associate that requested your imaging first. ? Electronically signed by: Finn Zhu MD, [facility] ([phone]), at 12/03/2021 11:28 AM Narrative 12/03/2021 11:28 AM EDT EXAMINATION: NM BONE SCAN WHOLE BODY CLINICAL HISTORY: mid-thoracic back pain Malignant 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, estrogen receptor positive s/p neoadjuvant chemotherapy with TCHP, R mastectomy/ALND; currently on adjuvant T-DM1 for residual disease?until 01/29/22. TECHNIQUE: Three hours following the intravenous administration of 24.5 mCi of technetium-99m MDP, planar images of the skeleton in anterior and posterior projection were obtained. COMPARISON: Bone scan 07/04/2020 FINDINGS: Foci of increased activity are present in multiple right lateral ribs (approximately 3-7). This was not present in the prior study. Normal renally excreted activity in bilateral kidneys and in the urinary bladder. Procedure Note Finn Zhu MD - 12/03/2021 EXAMINATION: NM BONE SCAN WHOLE BODY CLINICAL HISTORY: mid-thoracic back pain Malignant 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,estrogen receptor positive s/p neoadjuvant chemotherapy with TCHP, R mastectomy/ALND; currently onadjuvant T-DM1 for residual disease?until 01/29/22. TECHNIQUE: Three hours following the intravenous administration of 24.5mCi of technetium-99m MDP, planar images of the skeleton in anterior andposterior projection were obtained. COMPARISON: Bone scan 07/04/2020 FINDINGS: Foci of increased activity are present in multiple right lateral ribs (approximately 3-7). This was not present in the prior study. Normal renally excreted activity in bilateral kidneys and in the urinary bladder. IMPRESSION No definite skeletal metastases are present. Increased activity in multiple right-sided ribs is in a pattern mostsuggestive of fractures. Please correlate with a history of pain or trauma. Iffurther clarification is needed, consider radiographs of the right-sided ribs. I have personally reviewed the image(s) and the resident's interpretationand agree with the findings, Finn Zhu MD at 12/03/2021 11:28 AM Thank you for letting us participate in the care of this patient. If youare a health care provider and have any questions regarding this report,please contact the number below. For patients who have questions please contactthe health customer care associate that requested your imaging first. Electronically signed by: Finn Zhu MD, [facility]([phone]), at 12/03/2021 11:28 AM Tyra Cornejo MD [facility] [place] ORDERABLES documented in this encounter Visit Diagnoses Diagnosis Malignant 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, estrogen receptor positive documented in this encounter Administered Medications Inactive Administered Medications - up to 3 most recent administrations Medication Order MAR Action Action Date Dose Rate Site technetium (Tc-99m) methylene diphosphonate (MDP) injection 0-30 mCi 0-30 mCi, Intravenous, ONCE PRN, 1 dose, Starting on Thu12/02/21 at 0909, Until Thu12/02/21 at 0905, Per Protocol, Radiology Contrast, Routine Given 12/02/2021 9:05 AM EDT 24.5 mCi Left Arm documented in this encounter Care Teams Process Development Technician Relationship Specialty Start Date End Date Charleen Williamson APRN [address] [place] [address] PCP - General Family Medicine 06/29/20 documented as of this encounter
--- OUTSIDE RECORDS SUMMARY | 2024-05-09 13:57 | XMS_ITS | Encounter Summary ---
Author Organization [facility] [place] [address] Care Team Providers Care Core Java Software Engineer Name Role Phone Charleen Williamson APRN Primary Care Provider [phone] Reason for Referral * Consultation (Routine) - Closed Specialty Diagnoses / Procedures Referred By Contac t Referred To Contact Plastic Surgery Diagnoses Malignant 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, estrogen receptor positive yTra Cornejo MD [facility] DR HEMATOLOGY [place] [address] [facility] Plastic Surg [address] [place] [address] Referral ID Status Reason Start Date Expiration Date V isits Requested Visits Authorized [id number] Closed Specialty Service Requested 11/07/2021 11/07/2022 1 1 * Diagnostic Test (Routine) - Closed Specialty Diagnoses / Procedures Referred By Contac t Referred To Contact Radiology Diagnoses Malignant 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, estrogen receptor positive Procedures NM Bone Scan Whole Body Tyra Cornejo MD [facility] HEMATOLOGY [place] [address] [place] [address] Referral ID Status Reason Start Date Expiration Date V isits Requested Visits Authorized [id number] Closed Specialty Service Requested 11/06/2021 05/09/2023 1 1 Reason for Visit * Reason Comments Follow-up Encounter Details Date Type Department Care Team (Kirstin bond Contact Info) Description 11/06/2021 1:30 PM EDT Office Visit Hematology and Oncology at [facility] [place] [address] Tyra Cornejo MD [facility] DR HEMATOLOGY [place] [address] Malignant neoplasm of central portion of right [...] Sign Reading Time Taken Comments Blood Pressure 124/90 11/06/2021 1:15 PM EDT Pulse 81 11/06/2021 1:15 PM EDT Temperature 36.7 ??C (98.1 ??F) 11/06/2021 1:15 PM ED T Respiratory Rate 17 11/06/2021 1:15 PM EDT Oxygen Saturation 97% 11/06/2021 1:15 PM EDT Inhaled Oxygen Concentration - - Weight 80.7 kg (178 lb) 11/06/2021 1:15 PM EDT Height 175.3 cm (5' 9.02) 11/06/2021 1:15 PM ED T Body Mass Index 26.27 11/06/2021 1:15 PM EDT documented in this encounter Progress Notes * Tyra Cornejo MD - 11/06/2021 1:30 PM EDT [facility] Breast Oncology Clinic: Follow-up Visit ?? Identification:??31??y.o.??female with locally advanced right breast cancer; s/p neoadjuvant chemotherapy with TCHP, R mastectomy/ALND; currently on adjuvant T- DM1 for residual disease until 01/29/22. ? Interim History:??Alis??presents today for 3-week follow-up on adjuvant T-DM1, ?Alis is doing better.?Working more, notes a pain in her right hand, would like to talk to someone about it. Mid back pain is unchanged. Saw her chiropractor, pain is stable. Used to have more low back pain, now mid-thoracic. She has seen PT and fitted for a sleeve and glove but that made theswelling worse. Was seen last week for wrapping, now somewhat better.??Hot flashes are stable. She has been working with Sonam Bc on increasing effexor. Joint pain is stable.? Review of Systems: General: Denies fevers,??chills,??appetite changes. ++fatigue, grade 2. able to do ADL's, starting to work a bit now. Skin: Denies rashes, new skin lesions. HEENT: Denies headaches, double vision, dental pain, mouth sores. Pulm: Denies cough or SOB. CV: Denies chest pain, palpitations. Extremities: Denies peripheral edema, leg swelling/pain/redness. GI: Denies vomiting, heartburn, diarrhea, constipation, hematochezia, melena.?? : Denies dysuria, hematuria. Repro: Premenopausal. Previously on Depot Provera q3 months, last dose early June 2020. Currently receiving goserelin, last dose 10/16. Interested in discussing fertility and process for seeking . No vaginal bleeding. Denies vaginal dryness or irritation. Heme: Denies bleeding, easy bruising. MSK: Denies??other??new or worsening skeletal pain, joint pains, myalgias. Neuro: Denies dizziness, lightheadedness, weakness, balance problems. Psych: stable. ?? Breast Cancer History: Diagnosis: -??29 yo self-palpated a mass under the right nipple when she noticed it had inverted at the end 2020.?? 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 Treatment: - 08/13/2020 oocyte harvesting and embryo cryopreservation - 08/14/2020 goserelin dose #1 at [place] - 08/17/2020 cycle 1 neoadjuvant TCHP - 09/06/2020 cycle 2 TCHP - 2020 cycle 3 TCHP - 10/18/2020 cycle 4 TCHP - 11/08/2020 cycle 5 TCHP - 11/29/2020 cycle 6 TCHP, dose-reduced carbo/taxol - mastectomy + SLNB: 13 cm tumor bed w/ scattered foci of invasive disease, +LVI, 1 node with microscopic disease - Consented to [place] trial evaluating axillary dissection vs RT and randomized to dissection: 0/13 nodes positive. - Not eligible for adjuvant tucatinib trial due to participation in the [place] axillary management trial. - TDM-1??q3 wks x 14 cycles planned as per LUIS trial results showing improved PFS with TDM-1 compared to trastuzumab in those who did not achieve a path CR with NAC. - RT completed 04/22/21??to 06/03/21: 50??Gy in 25??fxs to R supraclavicular fossa, R axilla & R chest wall??with 6 & 10 MV Xray external beam, followed by volume reduction & 10 Gy/5 fxs tomastectomy scar with 9 MeV electron beam, boosting mastectomy scar to 60 Gy/30 fxs.??3D xrt??used.?? -goserelin + tamoxifen 07/16 ?? RFs: Menses started age 14. No menses while on Depo provera. ?? PMH: ? Patient Active Problem List Diagnosis Code ??? Malignant neoplasm of right breast in female, estrogen receptor positive C50.911, Z17.0 Anxiety ?? FH/Genetics: family history includes Breast Cancer (age of onset: 83) in her paternal grandmother; Ovarian Cancer (age of onset: 50) in her paternal aunt; Uterine Cancer (age of onset: 50) in her paternal aunt. ?? On??07/23/2020,??Alis??underwent genetic testing via [employer]'s Multi-Cancer Panel: - A pathogenic MUTYH??mutation was detected (only one copy), specifially??c.1187G>A (p.Mgk144Ewl). - VUS was detected in the following??genes: Gene?Variant RET?c.2982A>C (p.Kez989Ghv) SDHB ?c.482A>G (p.Slz712Aur) ?? SH: No smoking No current EtOH to [employer] occ on [employer] / unemployed No children - desires biological children in the future ?? Vitals: Last value Range last 8 hrs Temperature Temp: 36.7 ??C (98.1 ??F) Temp: -- Heart Rate Heart Rate: 81 Heart Rate: -- Blood Pressure BP: 124/90 BP: -- Respiratory Rate Resp: 17 Resp: -- SpO2 SpO2: 97 % SpO2: -- ? Physical Exam: Vitals reviewed. General: A&Ox3. Well-developed??and well-nourished.??No acute distress. Head:??Normocephalic, atraumatic. Eyes: EOMs intact. Conjunctiva pink. No scleral icterus. Chest: Port site (left) accessed. No tenderness. Pulmonary:??Breathing comfortably on room air. Extremities:??No??LE??edema.??Right??arm with 1 + edema, normal strength. Musculoskeletal : tenderness directly over spine focally in mid-thoracic spine, between scapula, nomuscle tenderness, weakness, numbness or tingling.?? Neurological: Gait normal. No focal deficits noted. Skin: Warm??and dry.??No rashes??noted. Psychiatric: ??Affect is mood-congruent. Insight is good. Thought-content is normal, future-oriented.Good eye contact.? Results: Labs reviewed, meet parameters for treatment today? Assessment & Plan:??Alis??is a 31??y.o.??premenopausal??woman with a large, node+, ER/IN+ HER2+ breast cancer, partial pathologic response to neoadjuvant TCHP??[[id number]], s/p??mastectomy/ALND, RT, and is now receiving adjuvant T- DM1 for residual disease per??LUIS trial showing improved outcomes compared to trastuzumab.?She started tamoxifen on 06/18/21 and continues on ovarian suppression with grade 2 hot flashes. Will plan on goserelin until she is done with TDM-1 for fertilitypreservation, then continue tamoxifen alone. ?? Mid-back pain: proceed with chiropractor f/u appts as planned, will get bone scan now to assist with orthopedics work up. ?? #Breast cancer ?? Continue with adjuvant T-DM1,??to complete 14 cycles, last 01/29/22. ?? Goserelin 10.8 mg q12 weeks, endocrine markers show effective suppression of ovarian function.? Continue tamoxifen ? #Treatment monitoring for toxicity ?? Laboratory results are within acceptable limits to proceed with treatment today. ?? Cardiovascular monitoring: TTE repeated 06/26/21 and stable, next due 01/16. ?? #Right wrist pain #Right UE lymphedema ?? Continue??lymphedema PT specialist ?? Voltaren gel applied locally up to 4x daily ?#Future childbearing ?? contraindicated during T-DM1 and for 7 months after last dose ?? Safety of interrupting endocrine therapy to allow for is not known -- ongoing POSITIVEtrial looking at this. Current data do not suggest an increased risk of recurrence, though the healthy mother effect is likely a confounding factor. ?? Alis and Elmer have their embryos banked. Could consider carrying her own vs surrogate vs adoption. They will reach out for a f/u fertility appt. ?? #Vasomotor symptoms ?? Unchanged??on current regimen, increase venlafaxine as per Sonam Yancey APRN as planned.? She declines a brief break in tamoxifen for now ?? #Psychosocial Continue f/u and recommendations # right hand pain: bone scan, referral to orthopedics # referral to plastic surgery to discuss recon options. F/u 3 months Echo in Dec ? documented in this encounter Plan of Treatment Upcoming Encounters Date Type Department Care Team (Late st Contact Info) Description 02/13/2025 1:00 PM EDT Office Visit Radiation Oncology at [address] [address] Eleonora Mensah MD [facility] DR [place] [address] Scheduled Referrals Name Type Priority Associated Diagnoses Orde r Schedule Referral to Plastic Surgery Outpatient Referral Routine Malignant 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, estrogen receptor positive Ordered: 11/07/2021 documented as of this encounter Results * NM Bone Scan [...] caregiver that requested your imaging first. ? Electronically signed by: Finn Zhu MD, [facility] ([phone]), at 12/03/2021 11:28 AM Narrative 12/03/2021 11:28 [...] patients who have questions please contactthe health in home caregiver that requested your imaging first. Electronically signed by: Finn Zhu MD, [facility]([phone]), at 12/03/2021 11:28 AM Tyra Cornejo MD [facility] ORDERABLES * XR Hand Min 3 views Right (Generic) (12/02/2021 9:21 AM EDT) Anatomical Region Laterality Modality Hand Right Digital Radiogra phy Impressions 12/02/2021 10:17 AM EDT Normal osseous structures of the right hand. I have personally reviewed the image(s) and the resident's interpretation and agree with the findings, Sheryl Carvajal MD at 12/02/2021 10:17 AM Thank you for letting us participate in the care of this patient. ??If you are a health care provider and have any questions regarding this report, please contact the number below. ??For patients who have questions please contact the health in home caregiver that requested your imaging first. ? Electronically signed by: Sheryl Carvajal MD, [facility] ([phone]), at 12/02/2021 10:17 AM Narrative 12/02/2021 10:17 AM EDT EXAMINATION: XR HAND MIN 3 VIEWS RIGHT (GENERIC) CLINICAL HISTORY: right hand pain/ bone spur TECHNIQUE: 3 views RIGHT hand: PA, oblique, and lateral. COMPARISON: None FINDINGS: No fracture or malalignment. No focal sclerotic or lucencies. Preserved joint spaces the right hand. Diffuse soft tissue swelling. Procedure Note Sheryl Carvajal MD - 12/02/2021 EXAMINATION: XR HAND MIN 3 VIEWS RIGHT (GENERIC) CLINICAL HISTORY: right hand pain/ bone spur TECHNIQUE: 3 views RIGHT hand: PA, oblique, and lateral. COMPARISON: None FINDINGS: No fracture or malalignment. No focal sclerotic or lucencies. Preservedjoint spaces the right hand. Diffuse soft tissue swelling. IMPRESSION Normal osseous structures of the right hand. I have personally reviewed the image(s) and the resident's interpretationand agree with the findings, Sheryl Carvajal MD at 12/02/2021 10:17 AM Thank you for letting us participate in the care of this patient. If youare a health care provider and have any questions regarding this report,please contact the number below. For patients who have questions please contactthe health in home caregiver that requested your imaging first. Electronically signed by: Sheryl Carvajal MD, [facility]([phone]), at 12/02/2021 10:17 AM Tyra Cornejo MD IMG DX ORDERABLES documented in this encounter Visit Diagnoses Diagnosis Malignant 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, estrogen receptor positive Malignant 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, estrogen receptor positive Malignant 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, estrogen receptor positive documented in this encounter Care Teams Core Java Software Engineer Relationship Specialty Start Date End Date Charleen Williamson APRN [address] [place] [address] PCP - General Family Medicine 06/29/20 documented as of this encounter
--- OUTSIDE RECORDS SUMMARY | 2024-05-09 13:57 | XMS_ITS | Encounter Summary ---
Author Organization [facility] Address [facility] [place] [address] Care Team Providers Care Commercial Crabber Name Role Phone Charleen Williamson APRN Primary Care Provider [phone] [phone] Encounter Details Date Type Department Care Team (Late st Contact Info) Description 01/03/2022 [place] [address] Sena Green PA [facility] [place] [address] Social History Tobacco Use Types Packs/Day Years [...] PM EDT documented as of this encounter H&P Notes * Sena Green PA - 01/03/2022 8:53 AM EDT Images from the original note were not included. Interventional Radiology Focused Pre-procedure H&P: PCP: Charleen Williamson APRN Referring Provider: No ref. provider found Planned procedure: Port removal Procedure indication: Right breast cancer, completion of chemotherapy IR workflow: Procedure request received through Interventional Radiology eDH order queue. There are no answered order specific questions. History of Present Illness: Per chart review, Alis Silva is a 31 y.o. female with PMH of R breast CA (completed chemotherapy) who presents to Interventional Radiology to undergo port removal. LIJ port placed at [facility] in June. Remainder of patient's medical and surgical history, allergies, medications, and social/family history obtained below as previously outlined in patient's medical record. IR History: As above Imagin07/23/20 Assessment: 31 y.o. female with R breast CA s/p chemo presenting to Interventional Radiology for port removal. Plan Planned procedure: Port removal Labs to be performed day of procedure: No labs Sedation: No Sedation Prophylactic antibiotic : None Contrast: No contrast Additional medications for procedure: Lidocaine Position: Supine Consent: Pending Medications to discontinue (and days held): None Cytopathology presence needed: No Case Urgency:: G- Other (non E or F elective cases) Labs: Lab Results Component Value Date HGB 11.3 (L) 12/18/2021 HCT 31.7 (L) 12/18/2021 WBC 5.3 12/18/2021 PLATELET 82 (L) 12/18/2021 BUN 14 12/18/2021 CREATININE 0.84 12/18/2021 ALBUMIN 4.2 12/18/2021 BILITOT 0.3 12/18/2021 AST 37 (H) 12/18/2021 ALT 24 12/18/2021 ALKPHOS 56 12/18/2021 Allergies: Tegaderm [transparent dressings] Medications: Current Outpatient Medications on File Prior to [...] 3 ??? Miscellaneous Medical Supply Misc by [facility].(Non-Drug; Combo Route) route. [...] NEEDED FOR ANXIETY No current facility-administered medications on file prior to visit. Past Medical/Surgical history: Patient Active Problem List Diagnosis Code ??? Malignant neoplasm of right breast in female, estrogen receptor positive C50.911, Z17.0 ??? Lymphedema of arm I89.0 No past medical history on file. Past Surgical History: Procedure Laterality Date ??? IR MEDIPORT PLACEMENT 07/23/2020 IR Mediport Placement [facility] INTERVENTIONL RAD ??? MAMMO US BIOPSY LYMPH NODE RIGHT Right 06/29/2020 Mammo US Biopsy Lymph Node Right 06/29/2020 Danni Osuna MD [facility] RAD MAMMOGRAPHY ??? MAMMO US BIOPSY RIGHT Right 06/29/2020 Mammo Us Biopsy Right 06/29/2020 Danni Osuna MD [facility] RAD MAMMOGRAPHY ??? MAMMO US NEEDLE LOCALIZATION RIGHT Right 01/03/2021 Mammo US Needle Localization Right 01/03/2021 Mili Burgos MD [facility] RAD MAMMOGRAPHY ??? MRI GUIDED BIOPSY BREAST VACUUM ASSISTED LEFT Left 07/18/2020 MRI Guided Biopsy Breast Vacuum Assisted Left 07/18/2020 [facility] RAD MRI ??? PRO BX/REMV, LYMPH NODE, DEEP AXILL Right 01/03/2021 BIOPSY OR EXCISION OF LYMPH NODE(S), OPEN, DEEP AXILLARY NODE(S) (WRVU 6.43) performed by Eulalio Hunt MD at [facility] MAIN OR ??? PRO EXCISE BREAST LES W XRAY MARKER Right 01/03/2021 EXCISION LESION, BREAST W/ PREOP.MARKER (NEEDLE LOC.) (WRVU 6.69) performed by Eulalio Hunt MDat [facility] MAIN OR ??? PRO INTRAOP SENTINEL LYMPH ID W/DYE INJECTION Right 01/03/2021 INTRAOPERATIVE ID (MAPPING) SENTINEL LYMPH NODE,INCLUDES INJECTION (WRVU 2.5) performed by Eulalio Hunt MD at [facility] MAIN OR ??? PRO MASTECTOMY, SIMPLE, COMPLETE Right 01/03/2021 MASTECTOMY, SIMPLE, COMPLETE (WRVU 15.85) performed by Eulalio Hunt MD at [facility] MAIN OR ??? PRO REMOVE ARMPITS LYMPH NODES COMPLT Right 01/28/2021 LYMPHADENECTOMY, AXILLARY, COMPLETE (WRVU 13.87) performed by Eulalio Hunt MD at [facility] OSC Social History and Habits: Social History Tobacco Use ??? Smoking status: Never Smoker ??? Smokeless tobacco: Never Used Vaping Use ??? Vaping Use: Never used Substance Use Topics ??? Alcohol use: Not Currently ??? Drug use: Never Significant Family History: Family History Problem Relation Age of Onset ??? Breast Cancer Paternal Grandmother 83 's ??? Ovarian Cancer Paternal Aunt 50 's (around 2010) ??? Uterine Cancer Paternal Aunt 50 Pertinent ROS: as per HPI Physical Exam: Pending (to be performed in IR the day of procedure) ASA: Pending (to be assessed in IR the day of procedure) Mallampati class: Pending (to be assessed in IR the day of procedure) 01/03/2022 Sena Green PA-C documented in this encounter Plan of Treatment Upcoming Encounters Date Type Department Care Team (Late st Contact Info) Description 02/13/2025 1:00 PM EDT Office Visit Radiation Oncology at [address] [address] Eleonora Mensah MD [facility] [place] [address] documented as of this encounter Visit Diagnoses Not on filedocumented in this encounter Care Teams Commercial Crabber Relationship Specialty Start Date End Date Charleen Williamson APRN [address] [place] [address] PCP - General Family Medicine 06/29/20 documented as of this encounter
--- OUTSIDE RECORDS SUMMARY | 2024-05-09 13:57 | XMS_ITS | Encounter Summary ---
Author Organization [facility] Address [facility] [place] [address] Care Team Providers Care Aqua Ammonia Operator Name Role Phone Charleen Williamson APRN Primary Care Provider [phone] Reason for Visit * Treatment/Therapy Plan Authorization (Routine) - Closed Specialty Diagnoses / Procedures Referred By Contac t Referred To Contact Diagnoses 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, estrogen receptor positive Procedures INJ, ADO-TRASTUZUMAB EMT 1MG TC GOSERELIN ACETATE IMPLANT, 3.6MG (ZOLADEX) TC PALONOSETRON HCL, 25MCG, INJECTION (ALOXI) Tyra Cornejo MD [facility] [place] [address] [facility] Hem Onc Office [address] [place] [phone] Referral ID Status Reason Start Date Expiration Date Visits Re quested Visits Authorized [id number] Closed 03/01/2021 04/26/2022 99 99 Encounter Details Date Type Department Care Team (Latest Contact Info) Description 01/08/2022 6:57 AM EDT - 01/08/2022 11:59 PM EDT Hospital Encounter Hematology [place] [address] Malignant 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, estrogen receptor positive; Malignant neoplasm of overlapping sites of right [...] Sign Reading Time Taken Comments Blood Pressure 118/79 01/08/2022 7:51 AM EDT Pulse 68 01/08/2022 7:51 AM EDT Temperature 36.6 ??C (97.8 ??F) 01/08/2022 7:51 AM ED T Respiratory Rate 20 01/08/2022 7:51 AM EDT Oxygen Saturation 98% 01/08/2022 7:51 AM EDT Inhaled Oxygen Concentration - - Weight 80.4 kg (177 lb 4 oz) 01/08/2022 7:51 AM EDT Height 175.5 cm (5' 9.09) 01/08/2022 7:51 AM ED T Body Mass Index 26.1 01/08/2022 7:51 AM EDT documented in this encounter [...] 04/18/2021 06/18/2022 Miscellaneous Medical Supply Misc [place] [facility]Non-Drug; Combo Route) route. Remedy Phytoplex Moisturizer. Apply [...] Progress Notes * Hilda Marin RN - 01/08/2022 7:30 AM EDT Patient Name: Alis Silva Patient Age: 31 y.o. Birthdate: 1990 Admit date: 01/08/2022 Attending Physician: No att. providers found Alis Silva, 31 y.o. female with diagnosis of breast cancer is here for chemotherapy infusion of Kadcyla. PROTOCOL: n/a CYCLE: 13 DAY: 1 S: Pt. offers no complaints at this time. Reviewed plan of care for infusion visit, patient verbalized understanding of plan as outlined. O: Chemotherapy orders independently verified for correct drug name, route and dosage per patient'sheight, weight and BSA by Hilda Marin RN, RN and onsite pharmacist. Chemotherapy administered per protocol. REACTIONS (DESCRIPTION, TIME, INTERVENTION AND EFFECTIVENESS) none A: Pt. Tolerated treatment with out issue. Alis Silva confirms that all questions and issues have been addressed. P: Return to clinic as scheduled. documented in this encounter Plan of Treatment Upcoming Encounters Date Type Department Care Team (Late st Contact Info) Description 02/13/2025 1:00 PM EDT Office Visit Radiation Oncology at [address] [address] [facility] [place] [address] documented as of this encounter Visit Diagnoses Diagnosis Malignant 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, estrogen receptor positive 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, estrogen receptor positive documented in this encounter Administered Medications Inactive Administered Medications - up to 3 most recent administrations Medication Order MAR Action Action Date Dose Rate Site ado-TRASTuzumab emtansine (Kadcyla) 300 mg in sodium chloride 0.9% 265 mL infusion 300 mg, Intravenous, ONCE, 1 dose, On Thu01/08/22 at 0930, Administer over 30 Minutes, Monitor patient for ado-trastuzumab emtansine infusion reactions 30 minutes after each subsequent dose if the first dose was well-tolerated. Dose Ordered = 303 mg (3.6 mg/kg). Pharmacist rounded dose per procedure., This agent is restricted to outpatient use. Is this drug being given as an outpatient? Yes New Bag 01/08/2022 9:23 AM EDT 300 mg 530 mL/hr dexAMETHasone (PF) (Decadron) (10 mg/mL) injection 10 mg 10 mg, Intravenous, ONCE, 1 dose, On Thu01/08/22 at 0830 Given 01/08/2022 8:15 AM EDT 10 mg heparin (pf) (porcine) (100 units/mL) flush 5 mL syringe 500 Units 500 Units, Intravenous, ONCE PRN, Starting on Thu01/08/22 at 0804, Until Alannah 01/09/22 at 0434, Line Care, Refer to Intravenous (IV) Procedure: Accessing Implanted Vascular Access Devices (654) procedure and/or Intravenous (IV) Job Aid: Adult Flushing & Catheter Care (1593) job aid for additional information regarding guidelines and administration., Routine Given 01/08/2022 9:58 AM EDT 500 Units palonosetron (Aloxi) (0.05 mg/mL) injection 0.25 mg 0.25 mg, Intravenous, ONCE, 1 dose, On Thu01/08/22 at 0830, Routine Given 01/08/2022 8:15 AM EDT 0.25 mg documented in this encounter Care Teams Aqua Ammonia Operator Relationship Specialty Start Date End Date Charleen Williamson APRN [address] [place] [address] PCP - General Family Medicine 06/29/20 documented as of this encounter
--- OUTSIDE RECORDS SUMMARY | 2024-05-09 13:57 | XMS_ITS | Encounter Summary ---
Author Organization [facility] Address [facility] [place] [address] Care Team Providers Care Rehab Services Aide Name Role Phone Charleen Williamson APRN Primary Care Provider [phone] Reason for Referral * Diagnostic Test (Routine) - Closed Specialty Diagnoses / Procedures Referred By Contac t Referred To Contact Cardiology Diagnoses Lymphedema of arm Malignant 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, estrogen receptor positive Procedures Echocardiogram Transthoracic Germania Cornejo MD [facility] [address] [place] [address] [facility] [place] [address] Referral ID Status Reason Start Date Expiration Date V isits Requested Visits Authorized [id number] Closed Specialty Service Requested 10/16/2021 10/16/2022 1 1 Reason for Visit * Diagnostic Test (Routine) - Closed Specialty Diagnoses / Procedures Referred By Contac t Referred To Contact Cardiology Diagnoses Lymphedema of arm Malignant 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, estrogen receptor positive Procedures Echocardiogram Transthoracic Germania Cornejo MD [facility] [address] [place] [address] [facility] [place] [address] Referral ID Status Reason Start Date Expiration Date V isits Requested Visits Authorized [id number] Closed Specialty Service Requested 10/16/2021 10/16/2022 1 1 Encounter Details Date Type Department Care Team (Latest Contact Info) Description 01/06/2022 9:15 AM EDT - 01/06/2022 11:59 PM EDT Hospital Encounter Non-Invasive Cardiology Lab [facility] [place] [address] Germania Cornejo MD [facility] [address] [place] [address] Lymphedema of arm; Malignant neoplasm of central portion of right [...] 04/18/2021 06/18/2022 Miscellaneous Medical Supply Misc by [facility].(Non-Drug; Combo Route) route. Remedy Phytoplex [...] EDT Office Visit Radiation Oncology at [address] [address] Eleonora Mensah MD [facility] [place] [address] documented as of this encounter Procedures Procedure Name Priority Date/Time Associated Diagnosis Comments ECHO COMPLETE Routine 01/06/2022 10:18 AM EDT Lymphedema of arm Malignant 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, estrogen receptor positive documented in this encounter Results * ECHO COMPLETE (01/06/2022 10:18 AM EDT) EF 66 HEARTLAB SYSTEM Anatomical Region Laterality Modality Cardiac Other 01/06/2022 9:34 AM EDT Narrative 01/06/2022 10:28 AM EDT ? Echocardiogram Report Name: ALIS SILVA ? Study Date: 01/06/2022 09:34 AM ? BP: 129/84 mmHg ? Patient Location: 4A 0000 ? HR: 73 : 1990 ? Height: 173 cm ?Account: [id number] Age: 31 yrs ? Weight: 80 kg Gender: Female ?BSA: 1.9 m2 Ordering Physician: GERMANIA CORNEJO Referring Physician: GERMANIA CORNEJO Performed By: Mark Perrin RDCS Reason For Study: Breast tumor Interpretation Summary Left ventricle is of normal size. Wall thickness is normal. Left ventricular systolic function is normal. The left ventricular ejection fraction is 66% by Garcia's biplane (global strain did not appear to track properly - especially at the lateral wall). There are no segmental wall motion abnormalities. No significant valvular abnormalities. Other details as below. As compared to the prior echo report from 06/26/2021, there is no significant change. Procedure Complete-[id number]. Satisfactory quality. There is normal sinus rhythm. Left Ventricle Left ventricle is of normal size. There is no ventricular septal defect. Wall thickness is normal. Left ventricular systolic function is normal. The left ventricular ejection fraction is 66% by Garcia's biplane. There are no segmental wall motion abnormalities. Right Ventricle The right ventricle is of normal size. Right ventricular systolic function is normal. Left Atrium The left atrium is normal. There is no evidence for a patent foramen ovale. Right Atrium The right atrium is normal. Aortic Valve The aortic valve is structurally normal. There is no aortic stenosis. There is no aortic regurgitation. Mitral Valve The mitral valve is structurally and functionally normal. Tricuspid Valve The tricuspid valve is structurally normal. There is trace tricuspid regurgitation. Pulmonic Valve The pulmonic valve appears to be structurally and functionally normal. Great Arteries The aortic root is of normal size. No abnormalities are identified. Venous Inferior vena cava is normal in size. Inferior vena cava collapse greater than 50% with respiration. Pericardium/Pleural The pericardium appears normal. Hemodynamics Pulmonary artery hypertension could not be assessed due to inadequate tricuspid regurgitation jet. Left ventricular diastolic function is normal. Left ventricular filling pressure is normal. Ejection Fraction ?2D Measurements ? Volumes LV Biplane EF: 65.5 % ? IVSd: 0.78 cm ?LA Volume Index: ?LVIDd: 4.3 cm ?LVIDs: 2.8 cm ?19.1 ml/m2 ? EDV Biplane: 92.3 ml ?LVPWd: 0.83 cm ? EDV Biplane Index: 47.6 ?LV mass(C)d: 107.7 grams ? ESV Biplane: 31.8 ml ?LV mass(C)dI: 55.5 grams/m2 ?ESV Biplane Index: 16.4 ?Ao root diam: 2.8 cm ? SV(LVOT): 55.6 ml ?Ao root diam index: 1.5 ?LV Stroke Volume: 55.6 ml ?asc Aorta Diam: 2.5 cm ?LVOT diam: 1.8 cm ?SI(LVOT): 28.7 ml/m2 Doppler LV V1 VTI: 21.9 cm LVOT max Velocity: 102.8 cm/sec Ao Max: 124.3 cm/sec Ao valve max: 6.2 mmHg MV E max tushar: 92.5 cm/sec MV A max tushar: 62.4 cm/sec MV E/A: 1.5 MV dec time: 0.15 sec Lat Peak E' Tushar: 17.7 cm/sec E/ e' (lat): 5.2 Med Peak E' Tushar: 14.3 cm/sec E/e' (med): 6.4 E/e' Average: 5.8 I ?WMSI = 1.00 ? % Normal = 100 ?Segments ??Size X - Cannot ?2 - ?4 - ?1-2 ? small Interpret ?1 - Normal ?? Hypokinetic 3 - Akinetic Dyskinetic ?? 3-5 ? moderate 5 - ? 6-14 ?large Aneurysmal ?15-16 ?? diffuse Procedure Note Jabari Piedra MD - 01/06/2022 Echocardiogram Report Name: REYNAALIS Study Date: 01/06/2022 09:34 AM BP: 129/84mmHg Patient Location: [address] [place] [address] HR: 73 : 1990 Height: 173 cm Account:[id number] Age: 31 yrs Weight: 80 kg Gender: Female BSA: 1.9 m2 Ordering Physician: GERMANIA CORNEJO Referring Physician: GERMANIA CORNEJO Performed By: Mark Perrin RDCS Reason For Study: Breast tumor Interpretation Summary Left ventricle is of normal size. Wall thickness is normal. Leftventricular systolic function is normal. The left ventricular ejection fraction is 66%by Garcia's biplane (global strain did not appear to track properly -especially at the lateral wall). There are no segmental wall motion abnormalities. No significant valvular abnormalities. Other details as below. As compared to the prior echo report from 06/26/2021, there is nosignificant change. Procedure Complete-[id number]. Satisfactory quality. There is normal sinus rhythm. Left Ventricle Left ventricle is of normal size. There is no ventricular septal defect.Wall thickness is normal. Left ventricular systolic function is normal. Theleft ventricular ejection fraction is 66% by Garcia's biplane. There are nosegmental wall motion abnormalities. Right Ventricle The right ventricle is of normal size. Right ventricular systolic functionis normal. Left Atrium The left atrium is normal. There is no evidence for a patent foramenovale. Right Atrium The right atrium is normal. Aortic Valve The aortic valve is structurally normal. There is no aortic stenosis.There is no aortic regurgitation. Mitral Valve The mitral valve is structurally and functionally normal. Tricuspid Valve The tricuspid valve is structurally normal. There is trace tricuspid regurgitation. Pulmonic Valve The pulmonic valve appears to be structurally and functionally normal. Great Arteries The aortic root is of normal size. No abnormalities are identified. Venous Inferior vena cava is normal in size. Inferior vena cava collapse greaterthan 50% with respiration. Pericardium/Pleural The pericardium appears normal. Hemodynamics Pulmonary artery hypertension could not be assessed due to inadequatetricuspid regurgitation jet. Left ventricular diastolic function is normal. Leftventricular filling pressure is normal. Ejection Fraction 2D Measurements Volumes LV Biplane EF: 65.5 % IVSd: 0.78 cm LA VolumeIndex: LVIDd: 4.3 cm LVIDs: 2.8 cm 19.1 ml/m2 EDV Biplane: 92.3ml LVPWd: 0.83 cm EDV BiplaneIndex: 47.6 LV mass(C)d: 107.7 grams ESV Biplane: 31.8ml LV mass(C)dI: 55.5 grams/m2 ESV BiplaneIndex: 16.4 Ao root diam: 2.8 cm SV(LVOT): 55.6ml Ao root diam index: 1.5 LV Stroke Volume:55.6 ml asc Aorta Diam: 2.5 cm LVOT diam: 1.8 cm SI(LVOT): 28.7ml/m2 Doppler LV V1 VTI: 21.9 cm LVOT max Velocity: 102.8 cm/sec Ao Max: 124.3 cm/sec Ao valve max: 6.2 mmHg MV E max tushar: 92.5 cm/sec MV A max tushar: 62.4 cm/sec MV E/A: 1.5 MV dec time: 0.15 sec Lat Peak E' Tushar: 17.7 cm/sec E/ e' (lat): 5.2 Med Peak E' Tushar: 14.3 cm/sec E/e' (med): 6.4 E/e' Average: 5.8 I WMSI = 1.00 % Normal = 100 SegmentsSize X - Cannot 2 - 4 - 1-2small Interpret 1 - Normal Hypokinetic 3 - Akinetic Dyskinetic 3-5moderate 5 - 6-14large Aneurysmal 15-16diffuse Germania Cornejo MD ECHO ORDERABLES documented in this encounter Visit Diagnoses Diagnosis Lymphedema of arm Other lymphedema Malignant 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, estrogen receptor positive documented in this encounter Care Teams Rehab Services Aide Relationship Specialty Start Date End Date Charleen Williamson APRN [address] [place] [address] PCP - General Family Medicine 06/29/20 documented as of this encounter
--- OUTSIDE RECORDS SUMMARY | 2024-05-09 13:57 | XMS_ITS | Encounter Summary ---
[place] [address] Care Team Providers Care Professional System Administrator Name Role Phone Charleen Williamson APRN Primary Care Provider [phone] Reason for Referral * Diagnostic Test (Routine) - Closed Specialty Diagnoses / Procedures Referred By Contac t Referred To Contact Radiology Diagnoses Malignant 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, estrogen receptor positive Procedures IR Mediport Removal Tyra Cornejo MD [facility] DR HEMATOLOGY [place] [address] [facility] [place] [address] Referral ID Status Reason Start Date Expiration Date V isits Requested Visits Authorized [id number] Closed Specialty Service Requested 12/18/2021 06/20/2023 1 1 * Consultation (Routine) - Closed Specialty Diagnoses / Procedures Referred By Contac t Referred To Contact Orthopaedics Diagnoses Right hand pain Tyra Cornejo MD [facility] HEMATOLOGY [place] [address] [facility] [address] [place] [phone] Referral ID Status Reason Start Date Expiration Date V isits Requested Visits Authorized [id number] Closed Consult, Test & Treat 12/18/2021 12/18/2022 1 1 Reason for Visit * Reason Comments Follow-up Encounter Details Date Type Department Care Team (Kirstin bond Contact Info) Description 12/18/2021 9:30 AM EDT Office Visit Hematology and Oncology at [facility] [place] [address] Tyra Cornejo MD [facility] HEMATOLOGY [place] [address] Right hand pain; Malignant neoplasm of central portion of right [...] place to sleep or slept in a fdc (including now)? No 04/23/2021 Sex and Gender Information Value Date Recorded Sex Assigned at Female 07/19/2020 8:39 AM EDT Gender Identity Female 08/04/2022 1:11 PM EDT Sexual Orientation Straight 08/04/2022 1: 11 PM EDT documented as of this encounter Last Filed Vital Signs Vital Sign Reading Time Taken Comments Blood Pressure 124/79 12/18/2021 9:03 AM EDT Pulse 78 12/18/2021 9:03 AM EDT Temperature 36.5 ??C (97.7 ??F) 12/18/2021 9:03 AM ED T Respiratory Rate 18 12/18/2021 9:03 AM EDT Oxygen Saturation 99% 12/18/2021 9:03 AM EDT Inhaled Oxygen Concentration - - Weight 79.9 kg (176 lb 2.4 oz) 12/18/2021 9:03 A M EDT Height 172.7 cm (5' 7.99) 12/18/2021 9:03 AM ED T Body Mass Index 26.79 12/18/2021 9:03 AM EDT documented in this encounter Progress Notes * Tyra Cornejo MD - 12/18/2021 9:30 AM EDT [facility] ?? Breast Oncology Clinic: Follow-up Visit ?? Identification:??31??y.o.??female with locally advanced right breast cancer; s/p neoadjuvant chemotherapy with TCHP, R mastectomy/ALND; currently on adjuvant T- DM1 for residual disease until 01/29/22. ? Interim History:??Alis??presents today for follow-up on adjuvant T-DM1, ?Alis is doing??ok.?Working more, notes sudden pain in right flank, now resolved. No trauma or coughing. Bone scan and xrays negative but right hand bothers her the most. Hot flashes are stable.?She has been working with Sonam Yancey on anti-depressant regimen. Starting to think about childbearing in 2-3 yrs. ?Joint pain is stable.? Review of [...] inverted at the end 2020.?? -??[place] [facility] [place] HER2 + right invasive carcinoma with ductal [...] cryopreservation - 08/14/2020 goserelin dose #1 at [facility] - 08/17/2020 cycle 1 neoadjuvant TCHP - 09/06/2020 cycle 2 TCHP - 2020 cycle 3 TCHP - 10/18/2020 cycle 4 TCHP - 11/08/2020 cycle 5 TCHP - 11/29/2020 cycle 6 TCHP, dose-reduced carbo/taxol - mastectomy + SLNB: 13 cm tumor bed w/ scattered foci of invasive disease, +LVI, 1 node with microscopic disease - Consented to [place] trial evaluating axillary dissection vs RT and randomized to dissection: 0/13 nodes positive. - Not eligible for adjuvant tucatinib trial due to participation in the [place] axillary management trial. - TDM-1??q3 wks x 14 cycles planned as per ULIS trial results showing improved PFS with TDM-1 [...] 60 Gy/30 fxs.??3D xrt??used.?? -goserelin + tamoxifen 07/16? RFs: Menses started age 14. No menses [...] paternal aunt. ?? 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 - VUS was detected in the following??genes: Gene?Variant RET?c.2982A>C (p.Tob073Xha) SDHB ?c.482A>G (p.Dfw654Zuh) ?? SH: No smoking No current EtOH to Elmer Montiel occ on [employer] / unemployed No children - desires biological children in the future ?? Vitals: Last value Range last 8 hrs Temperature Temp: 36.5 ??C (97.7 ??F) Temp: [36.5 ??C (97.7 ??F)] Heart Rate Heart Rate: 78 Heart Rate: [78] Blood Pressure BP: 124/79 BP: (124)/(79) Respiratory Rate Resp: 18 Resp: [18] SpO2 SpO2: 99 % SpO2: [99 %] Physical Exam: Vitals reviewed. General: A&Ox3. Well-developed??and well-nourished.??No acute distress. Head:??Normocephalic, atraumatic. Eyes: EOMs intact. Conjunctiva pink. No scleral icterus. Chest: Port site (left) accessed. No tenderness. Pulmonary:??Breathing comfortably on room air. Extremities:??No??LE??edema.??Right??arm??with 1 + edema, normal strength.?? Musculoskeletal : no point tenderness over ribs Neurological: Gait normal. No focal deficits noted. Skin: Warm??and dry.??No rashes??noted. Psychiatric: ??Affect is mood-congruent. Insight is good. Thought-content is normal, future-oriented.Good eye contact.? Results: Labs reviewed, meet parameters for treatment today?? Bone scan reviewed showing rib fractures ?? Assessment & Plan:??Alis??is a 31??y.o.??premenopausal??woman with a large, node+, ER/NM+ HER2+ breast cancer, partial pathologic response to neoadjuvant TCHP??[[id number]], s/p??mastectomy/ALND, RT, and is now receiving adjuvant T- DM1 for residual disease per??LUIS trial showing improved outcomes compared to trastuzumab.?She started tamoxifen on 06/18/21 and continues on ovarian suppression??with grade 2 hot flashes. Will plan on goserelin until she is done with TDM-1 for fertility preservation, then continue tamoxifen alone.?Right flank pain: resolved, consider spanx sports bra/ light compression for more support during her work Right hand pain: Orthopedics referral ?#Breast cancer ?? Continue with adjuvant T-DM1,??to complete 14 cycles, last 01/29/22. ?? Goserelin 10.8 mg q12 weeks, endocrine markers show effective suppression of ovarian function.? Continue tamoxifen ?? Port out after 01/29. ? #Treatment monitoring for toxicity ?? Laboratory results are within acceptable limits to proceed with treatment today. ?? Cardiovascular monitoring: TTE repeated 06/26/21 and stable, next due 01/16.? #Right wrist pain--ortho referral #Right UE lymphedema ?? Continue??lymphedema PT specialist [...] #Vasomotor symptoms ?? Unchanged??on current regimen, increase venlafaxine??as per?Sonam Yancey [employer]IC[employer]ED SOCIAL WORKER as planned.? She declines a brief break in tamoxifen for now ?? #Psychosocial Continue f/u and recommendations ? # referral to plastic surgery pending later today. ?? F/u 3 months Echo in Dec ? documented in this encounter Plan of Treatment Upcoming Encounters Date Type Department Care Team (Late st Contact Info) Description 02/13/2025 1:00 PM EDT Office Visit Radiation Oncology at [address] [address] Eleonora Mensah MD [facility] [place] [address] Scheduled Referrals Name Type Priority Associated Diagnoses Order Schedule Referral to Orthopaedics Outpatient Referral Routine Right hand pain Ordered: 12/18/2021 documented as of this encounter Results * IR Mediport Removal (02/13/2022 2:54 PM EDT) Anatomical Region Laterality Modality X-Ray Angiograph y Narrative 02/13/2022 4:48 PM EDT Interventional Radiology Procedure Note Procedure: Subcutaneous venous port explant Indication: Right breast cancer, discontinue prison central venous access for chemotherapy Pre-procedure: Informed [...] documented in this encounter Visit Diagnoses Diagnosis Right hand pain Pain in limb Malignant 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, estrogen receptor positive Malignant 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, estrogen receptor positive documented in this encounter Care Teams Professional System Administrator Relationship Specialty Start Date End Date Charleen Williamson APRN [address] [place] [address] PCP - General Family Medicine 06/29/20 documented as of this encounter
--- OUTSIDE RECORDS SUMMARY | 2024-05-09 13:57 | XMS_ITS | Encounter Summary ---
Author Organization [facility] Address [facility] [place] [address] Care Team Providers Care International Specialist Name Role Phone Charleen Williamson APRN Primary Care Provider [phone] Encounter Details Date Type Department Care Team (Late st Contact Info) Description 11/12/2021 11:00 AM EDT TH Visit (TeleHealth) [place]ology [place] [address] Jossy Yancey APRN [facility] [place] [address] Current moderate episode of major depressive disorder without prior episode (Primary Dx); Cognitive changes Social History Tobacco Use Types Packs/Day Years [...] Progress Notes * Jossy Yancey APRN - 11/12/2021 11:00 AM EDT PSYCHIATRY CONSULTATION AT [facility] FOLLOW UP Time Spent: 20 minutes Location: Alis located [place] in [place] Attendee(s): Jossy Snell APRN HISTORY Patient Identification: [...] 10.8 mg q12 weeks (for ovarian suppression). Chief Complaint: I'm okay. HPI: () Since last visit had started Effexor 225 mg about 2.5 weeks ago. Today states she's found no obvious benefit from this medication and feels her mood seemed more 'predictable' on Zoloft and felt better depression-panda it's not helping my depression'. Continued feelings of restlessness during day and evening-feels like I have to move. Normally I'm pretty chill. Also noticing an increase in anxiety. Short fuse still-'snappy' at times. Went camping at [facility]-had a really good time and was happy to be be away with her and her dogs. Hot flashes continue, most obvious with higher temperatures. Continues struggling with lymphedema in her hand. Doing massage for drainage. Waldo and Alex's two dogs that she walks twice daily. Did well camping. Denies SI/HI Pertinent Medication Side Effects: Gabapentin I felt [...] Outpatient Medications Medication Sig Dispense Refill ??? meloxicam (MOBIC) 7.5 mg Tablet Take 1 tablet by mouth daily. May increase to 2 tablets daily if needed. 60 tablet 5 ??? venlafaxine XR (Effexor-XR) 75 mg Capsule, Sust. Release 24 hr Take 1 capsule by mouth daily. Take in addition to 150 mg capsule 30 capsule 3 ??? venlafaxine XR (EFFEXOR-XR) 150 mg Capsule, Sust. Release 24 hr Take 1 capsule by mouth daily. 30 capsule 3 ??? lidocaine-prilocaine (EMLA) Cream APPLY A THINK [...] a 24-hr period. 30 mL 2 ??? gabapentin (Neurontin) 100 mg Capsule Take 1 capsule by mouth 2 times daily. (Patient not taking: No sig reported) 60 capsule 0 ??? diclofenac (Voltaren) 1 % Gel Apply [...] No sig reported) 50 g 0 ??? clotrimazole (Mycelex) 10 mg Jennifer ??? triamcinolone (Kenalog) 0.1 % Cream APPLY SMALL AMOUNT TOPICALLY TO THE AFFECTED AREA TWICE DAILY ??? traZODone (Desyrel) 50 mg Tablet Take 3 tablets by mouth nightly. 90 tablet 3 ??? Miscellaneous Medical Supply Misc by [facility].(Non-Drug; Combo Route) route. [...] 4 mg by mouth as needed. ??? loratadine (Claritin) 10 mg Tablet Take 10 mg by mouth daily. ??? lactobacillus rhamnosus, GG, (CULTURELLE) 10 billion [...] Medication Trials: current zoloft 200 mg- started 07/25/20 Propranolol 20 mg BID Hydroxyzine buspar (discontinue 08/06/21)-felt quite activated at night with it Trazodone 150 mg Effexor 225 mg (started at 37.5 mg 09/08/21, began to taper off 11/13/21 after 2 weeks of 225 mg withno obvious benefit since starting the medication) SUBSTANCE USE HISTORY: ETOH: None currently Drugs: none Nicotine: none Caffeine: Very minimal, doesn't like coffee ?? FAMILY PSYCHIATRIC HISTORY: We never really talked about mental health growing up. No family history of suicide attempts ?? DEVELOPMENTAL/PSYCHOSOCIAL HISTORY: Currently lives in [place], [place] with her Elmer Relationship status: . 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 Trauma/Abuse History: not reviewed EXAM Constitutional System ? Vital Signs: There were no vitals taken for this visit. Musculoskeletal System ? Muscle Strength/Tone: normal tone, no weakness ? Gait and Station: steady gait, without abnormality Psychiatric System ? General Appearance/Behavior: Cooperative and pleasant. ? Movements: no abnormal movements or tremor ? Speech: regular rate, volume, and tone ? Thought Process: coherent, goal-directed ? Associations: Tight ? Abnormal Thoughts and Perceptions / Thought Content: Focused on Homicidality / Violent Thoughts: Denies Suicidality: Denies Hallucinations: Denies Delusions: None Obsessions: None ? Judgment and Insight: good/fair ? Mood & Affect: Mood is okay. Affect not seen due to telephone ? Orientation: to person, place, time and situation ? Attention/Concentration: grossly intact ? Memory: grossly intact ? Language: normal ? Fund of Knowledge: it sales representative of education level MEDICAL DECISION MAKING ; ASSESSMENT: Alsi Silva is a 31 y.o. Female with symptoms of MDD and anxiety, both likely exacerbated by ovarian suppression. We have successfully tapered off Zoloft though have found no benefitfrom Effexor at its maximum recommended dose (and since starting felt more antsy). A trial of vortioxetine could benefit depression, anxiety and the cognitive issues Alis has noted. RECOMMENDATIONS/PLAN ?? Safety: SI/HI denied; reviewed office and emergency contact info. Crisis line is [phone] ?? Medications: Continue Effexor 225 mg though recommend tapering and starting Trintellix if [place] in agreement (message sent to her with recs) ?? Additional treatment recommendations: on waitlist for new trainee at [facility] ?? FOLLOW-UP CARE: 1. Follow up care planned for: not planned as of yet; likely in one month 3. Pt is aware is aware of [...] further on this case. Jossy Yancey APRN 11/12/2021 documented in this encounter Plan of Treatment Upcoming Encounters Date Type Department Care Team (Late st Contact Info) Description 02/13/2025 1:00 PM EDT Office Visit Radiation Oncology at [address] [address] Eleonora Mensah MD [facility] [place] [address] documented as of this encounter Visit Diagnoses Diagnosis Current moderate episode of major depressive disorder without prior episode- Primary Cognitive changes Other signs and symptoms involving cognition documented in this encounter Care Teams International Specialist Relationship Specialty Start Date End Date Charleen Williamson APRN [address] [place] [address] PCP - General Family Medicine 06/29/20 documented as of this encounter
--- OUTSIDE RECORDS SUMMARY | 2024-05-09 13:57 | XMS_ITS | Encounter Summary ---
Author Organization [facility] Address [facility] [place] [address] Care Team Providers Care Architectural Job Captain Name Role Phone Charleen Williamson APRN Primary Care Provider [phone] Reason for Visit * Treatment/Therapy Plan Authorization (Routine) - Closed Specialty Diagnoses / Procedures Referred By Contac t Referred To Contact Diagnoses 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, estrogen receptor positive Procedures INJ, ADO-TRASTUZUMAB EMT 1MG TC GOSERELIN ACETATE IMPLANT, 3.6MG (ZOLADEX) TC PALONOSETRON HCL, 25MCG, INJECTION (ALOXI) Tyra Cornejo MD [facility] DR HEMATOLOGY [place] [address] [facility] Hem Onc Office [address] [place] [phone] Referral ID Status Reason Start Date Expiration Date Visits Re quested Visits Authorized [id number] Closed 03/01/2021 04/26/2022 99 99 Encounter Details Date Type Department Care Team (Latest Contact Info) Description 11/27/2021 8:03 AM EDT - 11/27/2021 11:59 PM EDT Hospital Encounter [place]ematology [place] [address] Malignant neoplasm of overlapping sites of right [...] Sign Reading Time Taken Comments Blood Pressure 143/93 11/27/2021 9:47 AM EDT Pulse 70 11/27/2021 9:47 AM EDT Temperature 36.6 ??C (97.8 ??F) 11/27/2021 9:47 AM ED T Respiratory Rate 18 11/27/2021 9:47 AM EDT Oxygen Saturation 99% 11/27/2021 9:47 AM EDT Inhaled Oxygen Concentration - - Weight 79.7 kg (175 lb 9.6 oz) 11/27/2021 9:47 A M EDT Height 172.7 cm (5' 8) 11/27/2021 9:47 AM EDT Body Mass Index 26.7 11/27/2021 9:47 AM EDT documented in this encounter Medications [...] 04/18/2021 06/18/2022 Miscellaneous Medical Supply Misc by [facility].(Non-Drug; Combo Route) route. Remedy Phytoplex [...] as of this encounter Progress Notes * Eleonora Allen RN - 11/27/2021 10:15 AM EDT Patient Name: Alis Silva Patient Age: 31 y.o. Birthdate: 1990 Admit date: 11/27/2021 Attending Physician: No att. providers found Alis Silva, 31 y.o. female with diagnosis of breast cancer is here for chemotherapy infusion of Kadcyla. PROTOCOL: No CYCLE: 11 DAY: 1 S: Pt. offers no complaints at this time. Reviewed plan of care for infusion visit; patient verbalized understanding of plan as outlined. O: Chemotherapy orders independently verified for correct drug name, route and dosage per patient'sheight, weight and BSA by Eleonora Allen, DENISE and onsite pharmacist. Chemotherapy administered per hospital policy. REACTIONS (DESCRIPTION, TIME, INTERVENTION AND EFFECTIVENESS) None reported. A: Pt. Tolerated treatment well. Alis Silva confirms that all questions and issues have been addressed. P: Return to clinic as scheduled. documented in this encounter Plan of Treatment Upcoming Encounters Date Type Department Care Team (Late st Contact Info) Description 02/13/2025 1:00 PM EDT Office Visit Radiation Oncology at [address] [phone] Eleonora Mensah MD [facility] [place] [address] documented as of this encounter Results * (ABNORMAL) Comprehensive metabolic panel (non-fasting) (11/27/2021 8:29 AM EDT) Glucose 93 65 - 199 mg/dL [facility] Comment:Diabetes: >=200 mg/d L plus symptoms Blood Urea Nitrogen 10 8 - 18 mg/dL [facility] Creatinine 0.69(L) 0.70 - 1.20 mg/dL [facility] Sodium 140 135 - 145 mmol/L [facility] Potassium 4.2 3.5 - 5.0 mmol/L [facility] Comment: Please note: ??Patients with WBC >100,000 may have falsely elevated Potassium levels. ??For accurate Potassium quantification in these patients send serum separator tube (gold top) for subsequent determinations. ??Contact the Clinical Chemistry Laboratory if there are any questions. Chloride 103 98 - 107 mmol/L [facility] Carbon Dioxide 28 22 - 31 mmol/L [facility] Anion Gap 9 5 - 15 mmol/L [facility] Calcium 9.4 8.5 - 10.5 mg/dL [facility] Protein, Total 7.9 6.1 - 8.0 g/dL [facility] Albumin 4.3 3.2 - 5.2 g/dL [facility] Aspartate Aminotransferase 43(H) 0 - 30 unit/L [facility] Alanine Aminotransferase 39(H) 0 - 30 unit/L [facility] Alkaline Phosphatase 66 35 - 105 unit/L [facility] Bilirubin, Total <0.2(L) 0.2 - 1.3 mg/dL [facility] Est Glomerular Filtration Rate 120 >=60 mL/min/1. 73 m?? [facility] Comment: This patient's estimated [...] Lab Tyra Cornejo MD CHEMISTRY ORDERABLE S [facility] [place] [address] documented in this encounter Visit Diagnoses Diagnosis [...] 300 mg, Intravenous, ONCE, 1 dose, On Thu11/27/21 at 1045, Administer over 30 Minutes, Monitor patient for ado-trastuzumab emtansine infusion reactions 30 minutes after each subsequent dose if the first dose was well-tolerated. Dose Ordered = 303 mg (3.6 mg/kg). Pharmacist rounded dose per procedure., This agent is restricted to outpatient use. Is this drug being given as an outpatient? Yes New Bag 11/27/2021 10:46 AM EDT 300 mg 530 mL/hr dexAMETHasone (PF) (Decadron) (10 mg/mL) injection 10 mg 10 mg, Intravenous, ONCE, 1 dose, On Thu11/27/21 at 0945 Given 11/27/2021 10:06 AM EDT 10 mg heparin (pf) (porcine) (100 units/mL) flush 5 mL syringe 500 Units 500 Units, Intravenous, ONCE PRN, Starting on Thu11/27/21 at 0928, Until Alannah 11/28/21 at 0434, Line Care, Refer to Intravenous (IV) Procedure: Accessing Implanted Vascular Access Devices (654) procedure and/or Intravenous (IV) Job Aid: Adult Flushing & Catheter Care (8746) job aid for additional information regarding guidelines and administration., Routine Given 11/27/2021 11:25 AM EDT 500 Units palonosetron (Aloxi) (0.05 mg/mL) injection 0.25 mg 0.25 mg, Intravenous, ONCE, 1 dose, On Thu11/27/21 at 0945, Routine Given 11/27/2021 10:04 AM EDT 0.25 mg sodium chloride 0.9 % (flush) (BD PosiFlush Normal Saline 0.9) flush 5-20 mL 5-20 mL, Intravenous, EVERY 1 MIN PRN, Starting on Thu11/27/21 at 0928, Until Alannah 11/28/21 at 0434, Line Care, Flush pertains to all indwelling lines. Flush per protocol found in the job aid using the link provided on this medication record. Refer to Intravenous (IV) Job Aid: Adult Flushing & Catheter Care (7373) job aid for additional information regarding guidelines and administration., Routine Given 11/27/2021 11:25 AM EDT 20 mLs documented in this encounter Care Teams Architectural Job Captain Relationship Specialty Start Date End Date Charleen Williamson APRN [address] [place] [address] PCP - General Family Medicine 06/29/20 documented as of this encounter
--- OUTSIDE RECORDS SUMMARY | 2024-05-09 13:57 | XMS_ITS | Encounter Summary ---
Author Organization [facility] [place] [address] Care Team Providers Care Spooler Name Role Phone Charleen Williamson APRN Primary Care Provider [phone] Encounter Details Date Type Department Care Team (Late st Contact Info) Description 11/26/2021 11:00 AM EDT TH Visit (TeleHealth) [place] [address] Jossy Yancey ELECTRIC TRAIN DRIVER [facility] [address] Current moderate episode of major depressive disorder without prior episode (Primary Dx); Cognitive changes; TALISHA (generalized anxiety disorder); Lymphedema of arm; Malignant neoplasm of overlapping sites of right [...] Progress Notes * Jossy Yancey APRN - 11/26/2021 11:00 AM EDT PSYCHIATRY CONSULTATION AT [facility] FOLLOW UP Time Spent: 25 minutes Location: Alis located in her home in [place] Attendee(s): Jossy Snell APRN HISTORY Patient Identification: [...] weeks (for ovarian suppression). Chief Complaint: I'm pretty shitty. HPI: () On Effexor 37.5 mg with a few days left-plan to transition to Trintellix though Alis alerts me that PA is needed. Will follow up on that as she's failed both Sertraline and Venlafaxine and options are limited due to contraindications with Zoladex and Tamoxifen. Feeling very dong and reactive. I wanted to punch my hand through the wall. Did not do but feelsvery frustrated with her mental health struggles. She is open to Trintellix though asks 'what if this doesn't help? Then what?'.She is experiencing pretty severe hotflashes still though does want to attend to her mental health (we discuss Cymbalta as an alternative though likely will not be beneficial for mood as evidenced by lack of efficacy with Effexor). Denies SI/HI. Hot flashes continue, most obvious with higher temperatures. Continues struggling with lymphedema in her hand. Doing massage for drainage. 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 Pertinent Medication Side Effects: Gabapentin I felt [...] ??? Miscellaneous Medical Supply Misc by [facility]Non-Drug; Combo Route) route. Remedy Phytoplex Moisturizer. Apply [...] 07/25/20-tapered off 07/2021 due to loss of efficacy Propranolol 20 mg BID Hydroxyzine buspar (discontinue [...] attempts ?? DEVELOPMENTAL/PSYCHOSOCIAL HISTORY: Currently lives in [place], [place] with her Elmer Relationship status: . [...] ?? 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 Trauma/Abuse History: not reviewed EXAM Constitutional [...] ? Language: normal ? Fund of Knowledge: specialty sales representative of education level MEDICAL DECISION [...] and the cognitive issues Alis has noted. She is very frustrated with her current mental health though is open to starting Trintellix. Will complete PA with recommendation to continue Effexor 37.5 mg until medication is received (her pharmacy is also only open M-). RECOMMENDATIONS/PLAN ?? Safety: SI/HI denied; reviewed office and emergency contact info. Crisis line is [phone] ?? Medications: Effexor 37.5 mg until Trintellix is obtained ?? Additional treatment recommendations: Starting therapy with Sharon through [facility] this afternoon ?? FOLLOW-UP CARE: 1. Follow up care [...] further on this case. Jossy Yancey APRN 11/26/2021 documented in this encounter Plan of Treatment Upcoming Encounters Date Type Department Care Team (Late st Contact Info) Description 02/13/2025 1:00 PM EDT Office Visit Radiation Oncology at [address] [address] Eleonora Mensah MD [facility] [place] [address] documented as of this encounter Visit Diagnoses Diagnosis Current moderate episode of major depressive disorder without prior episode- Primary Cognitive changes Other signs and symptoms involving cognition TALISHA (generalized anxiety disorder) Generalized anxiety disorder Lymphedema of arm Other lymphedema 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, estrogen receptor positive documented in this encounter Care Teams Spooler Relationship Specialty Start Date End Date Charleen Williamson APRN [address] [place] [address] PCP - General Family Medicine 06/29/20 documented as of this encounter
--- OUTSIDE RECORDS SUMMARY | 2024-05-09 13:57 | XMS_ITS | Encounter Summary ---
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, estrogen receptor positive Procedures INJ, ADO-TRASTUZUMAB EMT 1MG TC GOSERELIN ACETATE IMPLANT, 3.6MG (ZOLADEX) TC PALONOSETRON HCL, 25MCG, INJECTION (ALOXI) Tyra Cornejo MD [facility] [address] [place] [address] [facility] Hem Onc Office [address] [place] [id number] Referral ID Status Reason Start Date Expiration Date Visits Re quested Visits Authorized [id number] Closed 03/01/2021 04/26/2022 99 99 Encounter Details Date Type Department Care Team (Latest Contact Info) Description 11/06/2021 11:53 AM EDT - 11/06/2021 11:59 PM EDT Hospital Encounter [place]ematology [place] [address] Malignant neoplasm of overlapping sites of right [...] EVERY 8 HOURS NEEDED FOR ANXIETY 07/09/2020 meloxicam (MOBIC) 7.5 mg Tablet Take 1 tablet by mouth daily. May increase to 2 tablets daily if needed. 60 tablet 5 10/24/2021 04/23/2022 venlafaxine XR (Effexor-XR) 75 mg Capsule, Sust. Release 24 hr Take 1 capsule by mouth daily. Take in addition to 150 mg capsule 30 capsule 3 10/16/2021 11/25/2021 venlafaxine XR (EFFEXOR-XR) 150 mg Capsule, Sust. Release 24 hr Take 1 capsule by mouth daily. 30 capsule 3 10/01/2021 11/25/2021 lidocaine-prilocaine (EMLA) Cream APPLY A THINK LAYER [...] 24-hr period. 30 mL 2 09/04/2021 06/10/2023 gabapentin (Neurontin) 100 mg Capsule Take 1 capsule by mouth 2 times daily. 60 capsule 08/07/2021 11/15/2021 diclofenac (Voltaren) 1 % Gel Apply 2 g to each affected area up to 4 times daily; maximum dose per joint: 8 g/day; maximum total body dose (all combined joints): 32 g/day. 200 g 07/24/2021 02/15/2024 tamoxifen (NOLVADEX) 20 mg Tablet Take 1 tablet by mouth daily. 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 50 g 05/21/2021 01/24/2022 clotrimazole (Mycelex) 10 mg Jennifer 01/02/2021 11/15/2021 triamcinolone (Kenalog) 0.1 % Cream APPLY SMALL AMOUNT TOPICALLY TO THE AFFECTED AREA TWICE DAILY 03/26/2021 11/15/2021 traZODone (Desyrel) 50 mg Tablet Take 3 tablets by mouth nightly. 90 tablet 3 04/18/2021 06/18/2022 Miscellaneous Medical Supply Misc by [facility].(Non-Drug; Combo Route) route. Remedy [...] needed for Nausea. 15 tablet 12/07/2020 03/24/2022 loratadine (Claritin) 10 mg Tablet Take 10 mg by mouth daily. 11/15/2021 lactobacillus rhamnosus, GG, (CULTURELLE) 10 billion cell Capsule Take 1 capsule by mouth daily. 02/15/2024 documented as of this encounter Progress Notes * Sandra Richards, RN - 11/06/2021 4:02 PM EDT Patient Name: Alis Silva Patient Age: 31 y.o. Birthdate: 1990 Admit date: 11/06/2021 Attending Physician: No att. providers found Patient Name: Alis Silva Patient Age: 31 y.o. Birthdate: 1990 Admit date: 11/06/2021 Attending Physician: No att. providers found Alis Silva, 31 y.o. female with diagnosis of breast cancer is here for chemotherapy infusion of Kadcyla. PROTOCOL: n/a CYCLE: 10 DAY: 1 S: Pt. offers no complaints at this time. Reviewed plan of care for infusion visit, patient verbalized understanding of plan as outlined. O: Chemotherapy orders independently verified for correct drug name, route and dosage per patient'sheight, weight and BSA by SANDRA RICHARDS, RN, RN and onsite pharmacist. Chemotherapy administeredper protocol. REACTIONS (DESCRIPTION, TIME, INTERVENTION AND EFFECTIVENESS) none A: Pt. Tolerated treatment with out issue. Alis Avelar [place] confirms that all questions and issues have been addressed. P: Return to clinic as scheduled. documented in this encounter Plan of Treatment Upcoming Encounters Date Type Department Care Team (Late st Contact Info) Description 02/13/2025 1:00 PM EDT Office Visit Radiation Oncology at [address] [address] Eleonora Mensah MD [facility] [place] [address] documented as of this encounter Visit Diagnoses [...] 300 mg, Intravenous, ONCE, 1 dose, On Thu11/06/21 at 1545, Administer over 30 Minutes, Monitor patient for ado-trastuzumab emtansine infusion reactions 30 minutes after each subsequent dose if the first dose was well-tolerated. Dose Ordered = 303 mg (3.6 mg/kg). Pharmacist rounded dose per procedure., This agent is restricted to outpatient use. Is this drug being given as an outpatient? Yes New Bag 11/06/2021 3:15 PM EDT 300 mg 530 mL/hr dexAMETHasone (PF) (Decadron) (10 mg/mL) injection 10 mg 10 mg, Intravenous, ONCE, 1 dose, On Thu11/06/21 at 1445 Given 11/06/2021 3:00 PM EDT 10 mg palonosetron (Aloxi) (0.05 mg/mL) injection 0.25 mg 0.25 mg, Intravenous, ONCE, 1 dose, On Thu11/06/21 at 1445, Routine Given 11/06/2021 3:00 PM EDT 0.25 mg documented in this encounter Care Teams Weight Guesser Relationship Specialty Start Date End Date Charleen Williamson APRN [address] [place] [address] PCP - General Family Medicine 06/29/20 documented as of this encounter
--- OUTSIDE RECORDS SUMMARY | 2024-05-09 13:57 | XMS_ITS | Encounter Summary ---
Author Organization [facility] Address [facility] [place] [address] Care Team Providers Care Keyseater Operator Name Role Phone Charleen Williamson APRN Primary Care Provider [phone] [phone] Encounter Details Date Type Department Care Team (Late st Contact Info) Description 12/10/2021 3:00 PM EDT TH Visit (TeleHealth) [place] [address] Jossy Yancey SUPERVISOR OF OFFICIALS [facility] [place] [address] Current moderate episode of major depressive disorder without prior episode (Primary Dx); 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, estrogen receptor positive; Cognitive changes; TALISHA (generalized anxiety disorder) Social History Tobacco Use Types Packs/Day Years [...] Progress Notes * Jossy Yancey APRN - 12/10/2021 3:00 PM EDT PSYCHIATRY CONSULTATION AT [facility] FOLLOW UP Time Spent: 25 minutes Location: Alis located in her home in [place] Attendee(s): Jossy Snell APRN HISTORY Patient Identification: [...] suppression). Chief Complaint: I'm okay. HPI: () Trintellix 10 mg- had felt extremely dong, angry, pissed off when tapering off Effexor. Feels likeit was a sort of withdrawal. Does feel major nausea with Trintellix (between hours of 10-12 pm and is resolved with Zofran) but otherwise is well tolerated Has been meeting with Sharon for therapy-plan to engage every other week. 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 Continues to hot flashes. Denies SI/HI. Pertinent Medication Side Effects: Gabapentin [...] Medication Sig Dispense Refill ??? vortioxetine (Trintellix) 10 mg Tablet Take 1 [...] 3 ??? Miscellaneous Medical Supply Misc by [facility].(Non-Drug; Combo Route) route. Remedy [...] Eyes/Ears/Sinuses x Cardiac x Respiratory x Gastrointestinal Nausea between 10 am and noon Genitourinary x Vascular Right hand lymphedema Musculoskeletal [...] attempts ?? DEVELOPMENTAL/PSYCHOSOCIAL HISTORY: Currently lives in [place], [place] with her Elmer Relationship status: . [...] ?? 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 Trauma/Abuse History: not reviewed EXAM Constitutional [...] ? Language: normal ? Fund of Knowledge: hospital insurance representative of education level MEDICAL DECISION MAKING ; ASSESSMENT: Alis Silva is a 31 y.o. Female with symptoms of MDD and anxiety, both likely exacerbated by ovarian suppression. We will increase Trintellix to 20 mg and also suggested that Alis try taking at night to mitigate GI upset. She is open to this; we will meet in one month for f/u. RECOMMENDATIONS/PLAN ?? Safety: SI/HI denied; reviewed office and emergency contact info. Crisis line is [phone] ?? Medications: Trintellix 20 mg ?? Additional treatment recommendations: Continue with Sharon bi-weekly ?? FOLLOW-UP CARE: 1. Follow up care planned for: Jan 14 3 pm video 3. Pt is aware is aware [...] further on this case. Jossy Yancey APRN 12/10/2021 documented in this encounter Plan of Treatment Upcoming Encounters Date Type Department Care Team (Late st Contact Info) Description 02/13/2025 1:00 PM EDT Office Visit Radiation Oncology at [address] [address] Eleonora Mensah MD [facility] [place] [address] documented as of this encounter Visit Diagnoses Diagnosis Current moderate episode of major depressive disorder without prior episode- Primary 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, estrogen receptor positive Cognitive changes Other signs and symptoms involving cognition TALISHA (generalized anxiety disorder) Generalized anxiety disorder documented in this encounter Care Teams Keyseater Operator Relationship Specialty Start Date End Date Charleen Williamson APRN [address] [place] [address] PCP - General Family Medicine 06/29/20 documented as of this encounter
--- OUTSIDE RECORDS SUMMARY | 2024-05-09 13:57 | XMS_ITS | Encounter Summary ---
Author Organization [facility] Address [facility] [place] [address] Care Team Providers Care Bleach Packer Name Role Phone Charleen Williamson APRN Primary Care Provider [phone] [phone] Reason for Visit * Diagnostic Test (Routine) - Closed Specialty Diagnoses / Procedures Referred By Contac t Referred To Contact Radiology Diagnoses Malignant 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, estrogen receptor positive Procedures NM Bone Scan Whole Body Tyra Cornejo MD [facility] [address] [place] [address] [place] [address] Referral ID Status Reason Start Date Expiration Date V isits Requested Visits Authorized [id number] Closed Specialty Service Requested 11/06/2021 05/09/2023 1 1 Encounter Details Date Type Department Care Team (Latest Contact Info) Description 12/02/2021 11:30 AM EDT - 12/02/2021 11:59 PM EDT Hospital Encounter [place] [address] Tyra Cornejo MD [facility] [address] [place] [address] Discharge Disposition: Home Social History Tobacco Use [...] 04/18/2021 06/18/2022 Miscellaneous Medical Supply Misc by [facility].(Non-Drug; Combo Route) route. Remedy Phytoplex Moisturizer. Apply [...] EDT Office Visit Radiation Oncology at [address] [address] Eleonora Mensah MD [facility] [place] [address] documented as of this encounter Procedures Procedure [...] who have questions please contact the health managed care liaison that requested your imaging first. ? Electronically signed by: Finn Zhu MD, [facility] ([phone]), at 12/03/2021 11:28 AM Narrative 12/03/2021 11:28 [...] patients who have questions please contactthe health managed care liaison that requested your imaging first. Electronically signed by: Finn Zhu MD, [facility]([phone]), at 12/03/2021 11:28 AM Tyra Cornejo MD IMG NM ORDERABLES documented in this encounter Visit Diagnoses Not on filedocumented in this encounter Care Teams Bleach Packer Relationship Specialty Start Date End Date Charleen Williamson APRN [address] [place] [address] PCP - General Family Medicine 06/29/20 documented as of this encounter
--- OUTSIDE RECORDS SUMMARY | 2024-05-09 13:57 | XMS_ITS | Encounter Summary ---
Author Organization [facility] [place] [address] Care Team Providers Care Building Analyst/Supervisor Name Role Phone Charleen Williamson APRN Primary Care Provider [phone] [phone] Encounter Details Date Type Department Care Team (Latest Contact Info) Description 12/10/2021 2:00 PM EDT TH Visit (TeleHealth) Hematology [place] [address] Sharon Desir Adjustment disorder with [...] encounter Progress Notes * Sharon Desir - 12/10/2021 2:00 PM EDT [facility] PSYCHO-ONCOLOGY FOLLOW-UP N [facility] HEMATOLOGY AND ONCOLOGY AT [facility] [address] Dept: [phone] Loc: [phone] 12/10/2021 2:00 PM Time spent: 45 minutes. Location: Telehealth. Alis Silva gave permission for and was seen for today's appointment with a Telehealth visit. During this visit they were located [place]. Alis Silva is aware that for any urgent matter they can call [phone]. Attendees: Patient SESSION #: 4 CHIEF COMPLAINT Adjustment to cancer dx and tx GOALS FOR THERAPY ??? Reduce anxiety and depressive symptoms ??? Improve coping with uncertainty and fear of recurrence S/O Since the previous session, Alis Silva reported that she reported some increased fatigue and stressors related to work. She did demonstrate some increased acceptance to her treatments and is looking forward to finishing infusions in January. She reported that she did not enjoy camping due to it being too hot but has enjoyed getting back to a regular working schedule. Today's session focused on processing frustrations, anxiety, and sadness related to her not being able to become right now due to treatment. She stated that she hoped to have a baby by 30 but instead got cancer by 30. She reported that she is not able to attempt to get until February 2024 at the earliest; however, this would mean that she has to stop taking her medications and risk potential remittance. Clinician and Alis processed this together and explored her options. Diagnosis: Adjustment disorder with mixed anxiety and depressed mood Mental Status: No SI. Mental status WNL. Fully engaged in therapy process. P Follow-up appointment scheduled for return in 2 weeks. Alis Silva has my contact information and was encouraged to reach out to me in the future as needed. * Lacy Barroso, PhD - 12/10/2021 2:00 PM EDT I have reviewed this note and agree with the plan and treatment Lacy Barroso, PhD documented in this encounter Plan of Treatment Upcoming Encounters Date Type Department Care Team (Late st Contact Info) Description 02/13/2025 1:00 PM EDT Office Visit Radiation Oncology at [address] [address] Eleonora Mensah MD [facility] [place] [address] documented as of this encounter Visit Diagnoses Diagnosis Adjustment disorder with mixed anxiety and depressed mood documented in this encounter Care Teams Building Analyst/Supervisor Relationship Specialty Start Date End Date Charleen Williamson APRN [address] [place] [address] PCP - General Family Medicine 06/29/20 documented as of this encounter
--- OUTSIDE RECORDS SUMMARY | 2024-05-09 13:57 | XMS_ITS | Encounter Summary ---
Author Organization [facility] Address [facility] [place] [address] Care Team Providers Care Emissions Testing Technician Name Role Phone Charleen Williamson APRN Primary Care Provider [phone] [phone] Reason for Visit * Treatment/Therapy Plan Authorization (Routine) - Closed Specialty Diagnoses / Procedures Referred By Contac t Referred To Contact Diagnoses 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, estrogen receptor positive Procedures INJ, ADO-TRASTUZUMAB EMT 1MG TC GOSERELIN ACETATE IMPLANT, 3.6MG (ZOLADEX) TC PALONOSETRON HCL, 25MCG, INJECTION (ALOXI) Tyra Cornejo MD [facility] [address] [place] [address] [facility] Hem Onc Office [address] [place] [phone] Referral ID Status Reason Start Date Expiration Date Visits Re quested Visits Authorized [id number] Closed 03/01/2021 04/26/2022 99 99 Encounter Details Date Type Department Care Team (Latest Contact Info) Description 12/18/2021 8:15 AM EDT Hospital Encounter Hematology [place] [address] Malignant neoplasm of overlapping sites [...] as of this encounter Progress Notes * Thien Campoverde RN - 12/18/2021 8:37 AM EDT Access visit. See MAR and/or flowsheet. documented in this encounter Plan of Treatment Upcoming Encounters Date Type Department Care Team (Late st Contact Info) Description 02/13/2025 1:00 PM EDT Office Visit Radiation Oncology at [address] [phone] Eleonora Mensah MD [facility] [place] [address] documented as of this encounter Procedures Procedure Name Priority Date/Time Associated Diagnosis Comments HEMOGRAM STAT 12/18/2021 8:35 AM EDT 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, estrogen receptor positive DIFFERENTIAL, AUTOMATED STAT 12/18/2021 8:35 AM EDT 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, estrogen receptor positive HC ESTRADIOL, SERUM Routine 12/18/2021 8 :35 AM EDT 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, estrogen receptor positive HC CBC,PLT & AUTO DIFF STAT 8:35 AM EDT 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, estrogen receptor positive HC FSH ASSAY, SERUM Routine 12/18/2021 8 :35 AM EDT 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, estrogen receptor positive COMPREHENSIVE METABOLIC PANEL STAT 12/18/2021 8:35 AM EDT 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, estrogen receptor positive documented in this encounter Results * Differential, Automated (12/18/2021 8:35 AM EDT) Neutrophil % 56.2 % [facility] Neutrophil Absolute 2.96 1.70 - 6.10 x10(3)/[facility] Lymph % 29.5 % [facility] Lymphocytes Abs 1.6 0.9 - 3.2 x10(3)/[facility] Monocyte % 12.3 % [facility] Monocyte Abs 0.6 0.3 - 0.9 x10(3)/[facility] Eos % 0.9 % [facility] Eosinophils Abs 0.0 0.0 - 0.4 x10(3)/[facility] Basophil % 1.1 % [facility] Baso Absolute 0.1 0.0 - 0.1 x10(3)/[facility] Immature Gran % 0.00 % [facility] Comment: Immature granulocytes(IG's)percentage and absolute count will include metamyelocytes, myelocytes, and promyelocytes. Blood smears from CBCs yielding IG's will be scanned manually for concordance. If this scan disagrees with the automated IG or if promyelocytes are noted, a manual differential will be performed. Immature Gran Absolute 0.00 0.00 - 0.04 x10(3)/[facility] Blood 12/18/2021 8:35 AM EDT 12/18/2021 8:43 AM EDT Narrative Resulting Agency Comment Spec In Lab Tyra Cornejo MD HEMATOLOGY ORDERABL ES [facility] [place] [address] * (ABNORMAL) Hemogram (12/18/2021 8:35 AM EDT) [facility] White Blood Cell 5.3 4.0 - 9.5 x10(3)/mc L [facility] Red Blood Cell 3.58(L) 4.00 - 5.21 x10(6)/mc L [facility] Hemoglobin 11.3(L) 11.7 - 15.5 g/dL [facility] Hematocrit 31.7(L) 35.7 - 45.8 % [facility] Mean Cell Volume 88.5 82.6 - 94.4 fL [facility] Mean Cell Hemoglobin 31.6 27.1 - 32.0 pg [facility] Mean Cell Hemoglobin Concentration 35.6(H) 31.7 - 35.0 g/dL [facility] Platelet 82(L) 145 - 357 x10(3)/[facility] RDW Standard Deviation 40.2 37.0 - 46.0 fL [facility] RDW coefficient of variation 12.4 11.5 - 14.1 % [facility] Mean Platelet Volume 9.2 7.6 - 12.9 fL [facility] NRBC% auto 0.0 % [facility] NRBC Absolute 0.000 0.000 - 0.000 x10(3)/[facility] Blood 12/18/2021 8:35 AM EDT 12/18/2021 8:43 AM EDT Narrative Resulting Agency Comment Spec In Lab Tyra Cornejo MD HEMATOLOGY ORDERABL ES [facility] [place] [address] * (ABNORMAL) Comprehensive metabolic panel (non-fasting) (12/18/2021 8:35 AM EDT) [facility] Glucose 114 65 - 199 mg/dL [facility] Comment:Diabetes: >=200 mg/d L plus symptoms Blood Urea Nitrogen 14 8 - 18 mg/dL [facility] Creatinine 0.84 0.70 - 1.20 mg/dL [facility] Sodium 139 135 - 145 mmol/L [facility] Potassium 4.0 3.5 - 5.0 mmol/L [facility] Comment: Please note: ??Patients with WBC >100,000 may have falsely elevated Potassium levels. ??For accurate Potassium quantification in these patients send serum separator tube (gold top) for subsequent determinations. ??Contact the Clinical Chemistry Laboratory if there are any questions. Chloride 102 98 - 107 mmol/L [facility] Carbon Dioxide 29 22 - 31 mmol/L [facility] Anion Gap 8 5 - 15 mmol/L [facility] Calcium 9.5 8.5 - 10.5 mg/dL [facility] Protein, Total 7.9 6.1 - 8.0 g/dL [facility] Albumin 4.2 3.2 - 5.2 g/dL [facility] Aspartate Aminotransferase 37(H) 0 - 30 unit/L [facility] Alanine Aminotransferase 24 0 - 30 unit/L [facility] Alkaline Phosphatase 56 35 - 105 unit/L [facility] Bilirubin, Total 0.3 0.2 - 1.3 mg/dL [facility] Est Glomerular Filtration Rate 96 >=60 mL/min/1. 73 m?? [facility] Comment: This patient's estimated GFR [...] and symptoms in addition to eGFR. Blood 12/18/2021 8:35 AM EDT 12/18/2021 8:43 AM EDT Narrative Resulting Agency Comment Spec In Lab Tyra Cornejo MD CHEMISTRY ORDERABLE S Performing Organization Address [facility] [[email or web address]] Co de Phone Number [facility] [place] [address] * Follicle Stimulating Hormone (12/18/2021 8:35 AM EDT) Follicle Stimulating Hormone 2.8 mlU/ML [facility] Comment: Reference Ranges Male: ? 1.5-12.4 mIU/mL Female ?? Follicular: ?3.5-12.5 mIU/mL ?? Ovulation: ? 4.7-21.5 mIU/mL ?? Luteal: ?1.7-7.7 mIU/mL ?? Postmenopausal: ?25.8-134.8 mIU/mL Blood 12/18/2021 8:35 AM EDT 12/18/2021 8:43 AM EDT Narrative Resulting Agency Comment Spec In Lab Tyra Cornejo MD CHEMISTRY ORDERABLE S Performing Organization Address [facility] [[email or web address]] Co de Phone Number [facility] [place] [address] * Estradiol (12/18/2021 8:35 AM EDT) Estradiol <5 pg/mL [facility] Comment: Reference ranges: Males: Adult: ? 11 to 43 pg/mL Females: Non- females: ?Follicular: ??12-233 pg/mL ?Ovulation: ?? 41-398 pg/mL ?Luteal: ?22-341 pg/mL ?Postmenopausal: ?? <5 - 138 pg/mL females: ?1st trimester: ??154-3243 pg/mL ?2nd trimester: ??1561-04245 pg/mL ?3rd trimester: ??8525- >07658 pg/mL Blood 12/18/2021 8:35 AM EDT 12/18/2021 8:43 AM EDT Narrative Resulting Agency Comment Spec In Lab Tyra Cornejo MD CHEMISTRY ORDERABLE S [facility] [place] [address] documented in this encounter Visit Diagnoses Diagnosis [...] Intravenous, EVERY 1 MIN PRN, Starting on Thu12/18/21 at 0823, Until Alannah 12/19/21 at 0434, Line Care, Flush pertains to all indwelling lines. Flush per protocol found in the job aid using the link provided on this medication record. Refer to Intravenous (IV) Job Aid: Adult Flushing & Catheter Care (0890) job aid for additional information regarding guidelines and administration., Routine Given 12/18/2021 8:36 AM EDT 20 mLs documented in this encounter Care Teams Emissions Testing Technician Relationship Specialty Start Date End Date Charleen Williamson APRN [address] [place] [address] PCP - General Family Medicine 06/29/20 documented as of this encounter
--- OUTSIDE RECORDS SUMMARY | 2024-05-09 13:57 | XMS_ITS | Encounter Summary ---
Author Organization [facility] [address] Care Team Providers Care Retail Coordinator Name Role Phone Charleen Williamson APRN Primary Care Provider [phone] [phone] Encounter Details Date Type Department Care Team (Late st Contact Info) Description 11/26/2021 Telephone Psychiatry [place] [phone] Ronda Amaya, RN Social History Tobacco Use Types Packs/Day [...] encounter Miscellaneous Notes * Telephone Encounter - Ronda Amaya RN - 11/26/2021 4:10 PM EDT Let Alis sonalitellix was approved and pharmacy is filling now for leaf size picker by end of the day, Alis had no further questions. documented in this encounter Plan of Treatment Upcoming Encounters Date Type Department Care Team (Late st Contact Info) Description 02/13/2025 1:00 PM EDT Office Visit Radiation Oncology at [address] [phone] Eleonora Mensah MD [facility] [place] [address] documented as of this encounter Visit Diagnoses Not on filedocumented in this encounter Care Teams Retail Coordinator Relationship Specialty Start Date End Date Charleen Williamson APRN [address] [place] [address] PCP - General Family Medicine 06/29/20 documented as of this encounter
--- OUTSIDE RECORDS SUMMARY | 2024-05-09 13:57 | XMS_ITS | Encounter Summary ---
Author Organization [facility] Address [facility] [place] [address] Care Team Providers Care Chip Bin Operator Name Role Phone Charleen Williamson APRN Primary Care Provider +1 [phone] Encounter Details Date Type Department Care Team (Latest Contact Info) Description 12/02/2021 9:11 AM EDT - 12/02/2021 11:29 AM EDT Hospital Encounter XRay at [address] [place] [phone] Tyra Cornejo MD [facility] HEMATOLOGY [place] [address] Malignant neoplasm of central portion of right [...] 04/18/2021 06/18/2022 Miscellaneous Medical Supply Misc by [facility]Non-Drug; Combo Route) route. Remedy [...] PM EDT Office Visit Radiation Oncology at [address] [phone] Eleonora Mensah MD [facility] [place] [address] documented as of this encounter Procedures Procedure Name Priority Date/Time Associated Diagnosis Comments XR HAND MIN 3 VIEWS RIGHT Routine 12/02/2021 9:21 AM EDT Malignant 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, estrogen receptor positive documented in this encounter Results * XR Hand Min 3 views Right [...] have questions please contact the health career development specialist that requested your imaging first. ? Narrative 12/02/2021 10:17 AM EDT EXAMINATION: XR [...] patients who have questions please contactthe health career development specialist that requested your imaging first. Electronically signed by: Sheryl Carvajal MD, [facility]([phone]), at 12/02/2021 10:17 AM Tyra Cornejo MD IMG DX ORDERABLES documented in this encounter Visit Diagnoses Diagnosis Malignant 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, estrogen receptor positive documented in this encounter Care Teams Chip Bin Operator Relationship Specialty Start Date End Date Charleen Williamson APRN [address] [place] [address] PCP - General Family Medicine 06/29/20 documented as of this encounter
--- OUTSIDE RECORDS SUMMARY | 2024-05-09 13:57 | XMS_ITS | Encounter Summary ---
Author Organization [facility] Address [facility] [place] [address] Care Team Providers Care Rn Radiation Name Role Phone Charleen Williamson APRN Primary Care Provider +1 -[phone] Encounter Details Date Type Department Care Team (Latest Contact Info) Description 11/12/2021 1:00 PM EDT TH Visit (TeleHealth) Hematology [place] [phone] Dafne Dykes, PhD [facility] [place] [address] 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, estrogen receptor positive; Cognitive changes; Adjustment disorder with mixed anxiety and depressed [...] Progress Notes * Dafne Dykes, PhD - 11/12/2021 1:00 PM EDT Neuropsychology Note. I spoke with Ms. Silva by phone, as video visits are down today. We discussed her current cognitive and mood status. We agree to defer her evaluation by about three months to leave opportunity for a new medication to take effect. She is aware she is welcome to contact me in the meantime. documented in this encounter Plan of Treatment Upcoming Encounters Date Type Department Care Team (Late st Contact Info) Description 02/13/2025 1:00 PM EDT Office Visit Radiation Oncology at [address] [phone] Eleonora Mensah MD [facility] [place] [address] documented as of this encounter Visit Diagnoses Diagnosis 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, estrogen receptor positive Cognitive changes Other signs and symptoms involving cognition Adjustment disorder with mixed anxiety and depressed mood documented in this encounter Care Teams Rn Radiation Relationship Specialty Start Date End Date Charleen Williamson APRN [address] [place] [address] PCP - General Family Medicine 06/29/20 documented as of this encounter
--- OUTSIDE RECORDS SUMMARY | 2024-05-09 13:58 | XMS_ITS | Encounter Summary ---
Author Organization [facility] Address [facility] [address] Care Team Providers Care Electrician Front Name Role Phone Charleen Williamson APRN Primary Care Provider [phone] [phone] Reason for Visit * Treatment/Therapy Plan Authorization (Routine) - Closed Specialty Diagnoses / Procedures Referred By Contac t Referred To Contact Diagnoses 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, estrogen receptor positive Procedures INJ, ADO-TRASTUZUMAB EMT 1MG TC GOSERELIN ACETATE IMPLANT, 3.6MG (ZOLADEX) TC PALONOSETRON HCL, 25MCG, INJECTION (ALOXI) Tyra Cornejo MD [facility] [place] [address] [facility] Hem Onc Office [address] [place] [phone] Referral ID Status Reason Start Date Expiration Date Visits Re quested Visits Authorized [id number] Closed 03/01/2021 04/26/2022 99 99 Encounter Details Date Type Department Care Team (Latest Contact Info) Description 11/06/2021 11:52 AM EDT Hospital Encounter Hematology [place] [phone] Malignant neoplasm of overlapping sites of right [...] 04/18/2021 06/18/2022 Miscellaneous Medical Supply Misc by [facility]Non-Drug; Combo Route) route. Remedy Phytoplex Moisturizer. Apply [...] as of this encounter Progress Notes * Lori Cohn RN - 11/06/2021 12:16 PM EDT Patient Name: Alis Silva Patient Age: 31 y.o. Birthdate: 1990 Admit date: 11/06/2021 Attending Physician: No att. providers found Access visit. See MAR and/or flowsheet. documented in this encounter Plan of Treatment Upcoming Encounters Date Type Department Care Team (Late st Contact Info) Description 02/13/2025 1:00 PM EDT Office Visit Radiation Oncology at [address] [phone] Eleonora Mensah MD [facility] [place] [address] documented as of this encounter Procedures Procedure Name Priority Date/Time Associated Diagnosis Comments HEMOGRAM STAT 11/06/2021 12:19 PM EDT 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, estrogen receptor positive DIFFERENTIAL, AUTOMATED STAT 11/06/2021 12:19 PM EDT 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, estrogen receptor positive HC CBC,PLT & AUTO DIFF STAT 12:19 PM EDT 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, estrogen receptor positive COMPREHENSIVE METABOLIC PANEL STAT 11/06/2021 12:19 PM EDT 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, estrogen receptor positive documented in this encounter Results * Differential, Automated (11/06/2021 12:19 PM EDT) Neutrophil % 57.7 % [facility] Neutrophil Absolute 3.65 1.70 - 6.10 x10(3)/[facility] LAB[facility] Lymph % 27.4 % [facility] Lymphocytes Abs 1.7 0.9 - 3.2 x10(3)/[facility] Monocyte % 12.9 % [facility] Monocyte Abs 0.8 0.3 - 0.9 x10(3)/[facility] Eos % 0.9 % [facility] Eosinophils Abs 0.1 0.0 - 0.4 x10(3)/[facility] Basophil % 0.9 % [facility] Baso Absolute 0.1 0.0 - 0.1 x10(3)/[facility] Immature Gran % 0.20 % [facility] Comment: Immature granulocytes(IG's)percentage and absolute count will include metamyelocytes, myelocytes, and promyelocytes. Blood smears from CBCs yielding IG's will be scanned manually for concordance. If this scan disagrees with the automated IG or if promyelocytes are noted, a manual differential will be performed. Immature Gran Absolute 0.01 0.00 - 0.04 x10(3)/mcL [facility] Blood 11/06/2021 12:1 9 PM EDT 11/06/2021 12:27 PM EDT Narrative Resulting Agency Comment Spec In Lab Tyra Cornejo MD HEMATOLOGY ORDERABL ES [facility] [place] [address] * (ABNORMAL) Hemogram (11/06/2021 12:19 PM EDT) White Blood Cell 6.3 4.0 - 9.5 x10(3)/mc L [facility] Red Blood Cell 3.84(L) 4.00 - 5.21 x10(6)/mc L [facility] Hemoglobin 12.0 11.7 - 15.5 g/dL [facility] Hematocrit 33.9(L) 35.7 - 45.8 % [facility] Mean Cell Volume 88.3 82.6 - 94.4 fL [facility] Mean Cell Hemoglobin 31.3 27.1 - 32.0 pg [facility] Mean Cell Hemoglobin Concentration 35.4(H) 31.7 - 35.0 g/dL [facility] Platelet 152 145 - 357 x10(3)/mc L [facility] RDW Standard Deviation 40.8 37.0 - 46.0 [facility] RDW coefficient of variation 12.7 11.5 - 14.1 % [facility] Mean Platelet Volume 8.8 7.6 - 12.9 fL [facility] NRBC% auto 0.0 % [facility] NRBC Absolute 0.000 0.000 - 0.000 x10(3)/mc L [facility] Blood 11/06/2021 12:1 9 PM EDT 11/06/2021 12:27 PM EDT Narrative Resulting Agency Comment Spec In Lab Tyra Cornejo MD HEMATOLOGY ORDERABL ES [facility] [place] [address] * (ABNORMAL) Comprehensive metabolic panel (non-fasting) (11/06/2021 12:19 PM EDT) Glucose 98 65 - 199 mg/dL [facility] Comment:Diabetes: >=200 mg/d L plus symptoms Blood Urea Nitrogen 9 8 - 18 mg/dL [facility] Creatinine 0.79 0.70 - 1.20 mg/dL [facility] Sodium 140 135 - 145 mmol/L [facility] Potassium 4.1 3.5 - 5.0 mmol/L [facility] Comment: Please note: ??Patients with WBC >100,000 may have falsely elevated Potassium levels. ??For accurate Potassium quantification in these patients send serum separator tube (gold top) for subsequent determinations. ??Contact the Clinical Chemistry Laboratory if there are any questions. Chloride 104 98 - 107 mmol/L [facility] Carbon Dioxide 27 22 - 31 mmol/L [facility] Anion Gap 9 5 - 15 mmol/L [facility] Calcium 9.3 8.5 - 10.5 mg/dL [facility] Protein, Total 7.8 6.1 - 8.0 g/dL [facility] Albumin 3.9 3.2 - 5.2 g/dL [facility] Aspartate Aminotransferase 39(H) 0 - 30 unit/L [facility] Alanine Aminotransferase 32(H) 0 - 30 unit/L [facility] Alkaline Phosphatase 65 35 - 105 unit/L [facility] Bilirubin, Total 0.2 0.2 - 1.3 mg/dL [facility] Est Glomerular Filtration Rate 104 >=60 mL/min/1. 73 m?? [facility] Comment: This patient's estimated GFR was calculated using the 2021 CKD-EPI equation. The estimated GFR can vary [...] and symptoms in addition to eGFR. Blood 11/06/2021 12:1 9 PM EDT 11/06/2021 12:27 PM EDT Narrative Resulting Agency Comment Spec In Lab Tyra Cornjeo MD CHEMISTRY ORDERABLE S [facility] [place] [address] documented in this encounter Visit Diagnoses Diagnosis [...] Intravenous, EVERY 1 MIN PRN, Starting on Thu11/06/21 at 1153, Until Alannah 11/07/21 at 0434, Line Care, Flush pertains to all indwelling lines. Flush per protocol found in the job aid using the link provided on this medication record. Refer to Intravenous (IV) Job Aid: Adult Flushing & Catheter Care (6212) job aid for additional information regarding guidelines and administration., Routine Given 11/06/2021 12:16 PM EDT 20 mLs documented in this encounter Care Teams Electrician Front Relationship Specialty Start Date End Date Charleen Williamson APRN [address] [place] [address] PCP - General Family Medicine 06/29/20 documented as of this encounter
--- OUTSIDE RECORDS SUMMARY | 2024-05-09 13:58 | XMS_ITS | Encounter Summary ---
Author Organization [facility] Address [facility] [place] [address] Care Team Providers Care Renewable Energy Project Manager Name Role Phone Charleen Williamson APRN Primary Care Provider [phone] [phone] Reason for Visit * Treatment/Therapy Plan Authorization (Routine) - Closed Specialty Diagnoses / Procedures Referred By Contac t Referred To Contact Diagnoses 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, estrogen receptor positive Procedures INJ, ADO-TRASTUZUMAB EMT 1MG TC GOSERELIN ACETATE IMPLANT, 3.6MG (ZOLADEX) TC PALONOSETRON HCL, 25MCG, INJECTION (ALOXI) Tyra Cornejo MD [facility] [place] [address] [facility] Hem Onc Office [address] [place] [phone] Referral ID Status Reason Start Date Expiration Date Visits Re quested Visits Authorized [id number] Closed 03/01/2021 04/26/2022 99 99 Encounter Details Date Type Department Care Team (Latest Contact Info) Description 10/16/2021 8:58 AM EDT - 10/16/2021 11:59 PM EDT Hospital Encounter Hematology [place] [address] Malignant neoplasm of overlapping sites of right [...] 8 HOURS NEEDED FOR ANXIETY 07/09/2020 venlafaxine XR (Effexor-XR) 75 mg Capsule, Sust. [...] 04/18/2021 06/18/2022 Miscellaneous Medical Supply Misc by [facility]Non-Drug; Combo Route) route. Remedy Phytoplex Moisturizer. Apply [...] Progress Notes * Hilda Marin RN - 10/16/2021 12:29 PM EDT Patient Name: Alis Silva Patient Age: 31 y.o. Birthdate: 1990 Admit date: 10/16/2021 Attending Physician: No att. providers found Alis Silva, 31 y.o. female with diagnosis of breast cancer is here for chemotherapy infusion of Kadcyla. PROTOCOL: n/a CYCLE: 9 DAY: 1 S: Pt. offers no complaints at this time. Reviewed plan of care for infusion visit, patient verbalized understanding of plan as outlined. Patient declined 30 minute observation period. O: Chemotherapy orders independently verified for correct [...] EDT Office Visit Radiation Oncology at [address] [phone] Eleonora Mensah MD [facility] [place] [address] documented as of this encounter Results * (ABNORMAL) Comprehensive metabolic panel (non-fasting) (10/16/2021 9:33 AM EDT) Glucose 114 65 - 199 mg/dL [facility] Comment:Diabetes: >=200 mg/d L plus symptoms Blood Urea Nitrogen 9 8 - 18 mg/dL [facility] Creatinine 0.75 0.70 - 1.20 mg/dL [facility] Sodium 140 135 - 145 mmol/L [facility] Potassium 3.8 3.5 - 5.0 mmol/L [facility] Comment: Please note: ??Patients with WBC >100,000 may have falsely elevated Potassium levels. ??For accurate Potassium quantification in these patients send serum separator tube (gold top) for subsequent determinations. ??Contact the Clinical Chemistry Laboratory if there are any questions. Chloride 103 98 - 107 mmol/L [facility] Carbon Dioxide 24 22 - 31 mmol/L [facility] Anion Gap 13 5 - 15 mmol/L [facility] Calcium 9.0 8.5 - 10.5 mg/dL [facility] Protein, Total 7.6 6.1 - 8.0 g/dL [facility] Albumin 3.8 3.2 - 5.2 g/dL [facility] Aspartate Aminotransferase 34(H) 0 - 30 unit/L [facility] Alanine Aminotransferase 24 0 - 30 unit/L [facility] Alkaline Phosphatase 65 35 - 105 unit/L [facility] Bilirubin, Total <0.2(L) 0.2 - 1.3 mg/dL [facility] Est Glomerular Filtration Rate 110 >=60 mL/min/1. 73 m?? [facility] Comment: This patient's estimated [...] and symptoms in addition to eGFR. Blood 10/16/2021 9:33 AM EDT 10/16/2021 9:33 AM EDT Narrative Resulting Agency Comment Spec In Lab Tyra Cornejo MD CHEMISTRY ORDERABLE S [facility] [place] [address] documented in this encounter Visit Diagnoses Diagnosis [...] 300 mg, Intravenous, ONCE, 1 dose, On Thu10/16/21 at 1215, Administer over 30 Minutes, Monitor patient for ado-trastuzumab emtansine infusion reactions 30 minutes after each subsequent dose if the first dose was well-tolerated. Dose Ordered = 303 mg (3.6 mg/kg). Pharmacist rounded dose per procedure., This agent is restricted to outpatient use. Is this drug being given as an outpatient? Yes New Bag 10/16/2021 12:28 PM EDT 300 mg 530 mL/hr dexAMETHasone (PF) (Decadron) (10 mg/mL) injection 10 mg 10 mg, Intravenous, ONCE, 1 dose, On Thu10/16/21 at 1115 Given 10/16/2021 12:22 PM EDT 10 mg heparin (pf) (porcine) (100 units/mL) flush 5 mL syringe 500 Units 500 Units, Intravenous, ONCE PRN, Starting on Thu10/16/21 at 1059, Until Alannah 10/17/21 at 0434, Line Care, Refer to Intravenous (IV) Procedure: Accessing Implanted Vascular Access Devices (654) procedure and/or Intravenous (IV) Job Aid: Adult Flushing & Catheter Care (9235) job aid for additional information regarding guidelines and administration., Routine Given 10/16/2021 1:00 PM EDT 500 Units palonosetron (Aloxi) (0.05 mg/mL) injection 0.25 mg 0.25 mg, Intravenous, ONCE, 1 dose, On Thu10/16/21 at 1115, Routine Given 10/16/2021 12:22 PM EDT 0.25 mg documented in this encounter Care Teams Renewable Energy Project Manager Relationship Specialty Start Date End Date Charleen Williamson APRN [address] [place] [address] PCP - General Family Medicine 06/29/20 documented as of this encounter
--- OUTSIDE RECORDS SUMMARY | 2024-05-09 13:58 | XMS_ITS | Encounter Summary ---
Author Organization [facility] Address [facility] [place] [address] Care Team Providers Care Educational Consultant Name Role Phone Charleen Williamson APRN Primary Care Provider [phone] [phone] Encounter Details Date Type Department Care Team (Late st Contact Info) Description 10/24/2021 Orders Only Hematology [place] [phone] Tyra Cornejo MD [facility] [address] [place]EMATOLOG[place] [address] Social History Tobacco Use Types Packs/Day Years [...] EDT Office Visit Radiation Oncology at [address] [phone] Eleonora Mensah MD [facility] [place] [address] documented as of this encounter Visit Diagnoses Not on filedocumented in this encounter Care Teams Educational Consultant Relationship Specialty Start Date End Date Charleen Williamson APRN [address] [place] [address] PCP - General Family Medicine 06/29/20 documented as of this encounter
--- OUTSIDE RECORDS SUMMARY | 2024-05-09 13:58 | XMS_ITS | Encounter Summary ---
Author Organization [facility] Address [facility] [address] [place] [address] Care Team Providers Care Analytical Statistician Name Role Phone Charleen Williamson APRN Primary Care Provider [phone] Reason for Referral * Diagnostic Test (Routine) - Closed Specialty Diagnoses / Procedures Referred By Contac t Referred To Contact Cardiology Diagnoses Lymphedema of arm Malignant 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, estrogen receptor positive Procedures Echocardiogram Transthoracic Germania Cornejo MD [facility] [address] [place] [address] [facility] [place] [address] Referral ID Status Reason Start Date Expiration Date V isits Requested Visits Authorized [id number] Closed Specialty Service Requested 10/16/2021 10/16/2022 1 1 Encounter Details Date Type Department Care Team (Late st Contact Info) Description 10/16/2021 10:30 AM EDT Office Visit Hematology [place] [address] Germania Cornejo MD [facility] [address] [place] [address] Lymphedema of arm; Malignant neoplasm of central [...] Sign Reading Time Taken Comments Blood Pressure 125/78 10/16/2021 10:16 AM EDT Pulse 79 10/16/2021 10:16 AM EDT Temperature 36.3 ??C (97.3 ??F) 10/16/2021 10:16 AM E DT Respiratory Rate 18 10/16/2021 10:16 AM EDT Oxygen Saturation 97% 10/16/2021 10:16 AM EDT Inhaled Oxygen Concentration - - Weight 82.1 kg (181 lb) 10/16/2021 10:16 AM EDT Height 175.3 cm (5' 9.02) 10/16/2021 10:16 AM E DT Body Mass Index 26.72 10/16/2021 10:16 AM EDT documented in this encounter Progress Notes * Germania Cornejo MD - 10/16/2021 10:30 AM EDT [facility] Breast Oncology Clinic: Follow-up Visit ?? Identification:??31 y.o.??female with locally advanced right breast cancer; s/p neoadjuvant chemotherapy with TCHP, R mastectomy/ALND; currently on adjuvant T- DM1 for residual disease. ? Interim History:??Alis??presents today for 3-week follow-up on adjuvant T-DM1, cycle 9; ?Alis is doing better. ??Worked 2 days last week which was great but felt very tired afterward. Mid back pain is unchanged. Saw her chiropractor, pain is stable. Used to have more low back pain, now mid-thoracic. She has seen PT and fitted for a sleeve and glove but that made the swelling worse.Was seen last week for wrapping. Hot flashes are stable. She has been working with Sonam Yancey on increasing effexor. Joint pain is stable. ?? Review of Systems: General: Denies fevers,??chills,??appetite changes. [...] 2020. Currently receiving goserelin, last dose 10/16. No vaginal bleeding. Denies vaginal dryness or irritation. Heme: Denies bleeding, easy bruising. MSK: Denies??other??new or worsening skeletal pain, joint pains, myalgias. Neuro: Denies dizziness, lightheadedness, weakness, balance problems. Psych: stable. ?? Breast Cancer History: Diagnosis: -??29 yo self-palpated a mass under the right nipple when she noticed it had inverted at the end ofF2020.?? 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 - Not eligible for adjuvant tucatinib trial due to participation in the [place] axillary management trial. - TDM-1??q3 wks x 14 cycles planned as per LIUS trial results showing improved PFS with TDM-1 [...] paternal aunt. ?? 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 - VUS was detected in the following??genes: Gene?Variant RET?c.2982A>C (p.Vgf000Vzv) SDHB ?c.482A>G (p.Rjr871Vob) ?? SH: No smoking No current EtOH to [employer] occ on [employer] / unemployed No children - desires biological children in the future ?? Vitals: ?? Last value Range last 8 hrs Temperature Temp: 36.5 ??C (97.7 ??F) Temp: -- Heart Rate Heart Rate: 79 Heart Rate: -- Blood Pressure BP: 122/84 BP: -- Respiratory Rate Resp: 17 Resp: -- SpO2 SpO2: 99 % SpO2: -- ? Physical Exam: Vitals reviewed. General: A&Ox3. Well-developed??and well-nourished.??No acute distress. Head:??Normocephalic, atraumatic. Eyes: EOMs intact. Conjunctiva pink. No scleral icterus. Chest: Port site (left) accessed. No tenderness. Pulmonary:??Breathing comfortably on room air. Extremities:??No??LE??edema.??Right??arm with 2 + edema, normal strength. Musculoskeletal : tenderness directly over spine focally in mid-thoracic spine, between scapula, nomuscle tenderness, weakness, numbness or tingling. Neurological: Gait normal. No focal deficits noted. Skin: Warm??and dry.??No rashes??noted. Psychiatric: ??Affect is mood-congruent. Insight is good. Thought-content is normal, future-oriented.Good eye contact.? Results: Labs reviewed, meet parameters for treatment today Last value Range last 8 hrs Temperature Temp: 36.3 ??C (97.3 ??F) Temp: [36.3 ??C (97.3 ??F)] Heart Rate Heart Rate: 79 Heart Rate: [79] Blood Pressure BP: 125/78 BP: (125)/(78) Respiratory Rate Resp: 18 Resp: [18] SpO2 SpO2: 97 % SpO2: [97 %] ?? Assessment & Plan:??Alis??is a 31 y.o.??premenopausal??woman with a large, node+, ER/RI+ HER2+ breast cancer, partial pathologic response to neoadjuvant TCHP??[[id number]], s/p??mastectomy/ALND, RT, and is now receiving adjuvant T- DM1 for residual disease per??LUIS trial showing improvedoutcomes compared to trastuzumab.?She started tamoxifen on 06/18/21 and continues on ovarian suppression with grade 2 hot flashes. Will plan on goserelin until she is done with TDM-1 for fertility preservation, then continue tamoxifen alone. ?? Mid-back pain: proceed with chiropractor f/u appts as planned, if no improvement, consider further work up. Reimage at the end of TDM-1 with bone scan for new baseline. ?? #Breast cancer ?? Continue with adjuvant T-DM1,??to complete one year in Mar 2022.? Goserelin 10.8 mg q12 weeks, endocrine markers [...] carrying her own vs surrogate vs adoption. ?? #Vasomotor symptoms ?? Unchanged on current regimen, increase venlafaxine as per Sonam Yancey APRN as planned. ?? She declines a brief break in tamoxifen for now ?? #Psychosocial Continue f/u and recommendations ? documented in this encounter Plan of Treatment Upcoming Encounters Date Type Department Care Team (Late st Contact Info) Description 02/13/2025 1:00 PM EDT Office Visit Radiation Oncology at [address] [phone] Eleonora Mensah MD [facility] [place] [address] documented as of this encounter Results * ECHO COMPLETE (01/06/2022 10:18 AM EDT) EF 66 HEARTLAB SYSTEM Anatomical Region Laterality Modality Cardiac Other 01/06/2022 9:34 AM EDT Narrative 01/06/2022 10:28 AM EDT ? Echocardiogram Report Name: ALIS SILVA ? Study Date: 01/06/2022 09:34 AM ? BP: 129/84 mmHg ? Patient Location: [address] [place] [address] ? HR: 73 : 1990 ? Height: 173 cm ?Account: [id number] Age: 31 yrs ? Weight: 80 kg [...] 06/26/2021, there is no significant change. Procedure Complete-74126. Satisfactory quality. There is normal sinus rhythm. [...] Piedra MD - 01/06/2022 Echocardiogram Report Name: ALIS SILVA Study Date: 01/06/2022 09:34 AM BP: 129/84mmHg Patient Location: [address] [place] [address] HR: 73 : 1990 Height: 173 cm Account:[id number] Age: 31 yrs Weight: 80 kg Gender: [...] from 06/26/2021, there is nosignificant change. Procedure Complete-12397. Satisfactory quality. There is normal sinus rhythm. [...] right breast in female, estrogen receptor positive Lymphedema of arm Other lymphedema Malignant 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, estrogen receptor positive documented in this encounter Care Teams Analytical Statistician Relationship Specialty Start Date End Date Charleen Williamosn APRN [address] [place] [address] PCP - General Family Medicine 06/29/20 documented as of this encounter
--- OUTSIDE RECORDS SUMMARY | 2024-05-09 14:00 | XMS_ITS | Encounter Summary ---
Author Organization [facility] Address [facility] [place] [address] Care Team Providers Care Final Assembly Inspector Name Role Phone Charleen Williamson APRN Primary Care Provider [phone] [phone] Reason for Visit * Treatment/Therapy Plan Authorization (Routine) - Closed Specialty Diagnoses / Procedures Referred By Contac t Referred To Contact Diagnoses 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, estrogen receptor positive Procedures INJ, ADO-TRASTUZUMAB EMT 1MG TC GOSERELIN ACETATE IMPLANT, 3.6MG (ZOLADEX) TC PALONOSETRON HCL, 25MCG, INJECTION (ALOXI) Tyra Cornejo MD [facility] [address] [place] [address] [facility] Hem Onc Office [address] [place] [phone] Referral ID Status Reason Start Date Expiration Date Visits Re quested Visits Authorized [id number] Closed 03/01/2021 04/26/2022 99 99 Encounter Details Date Type Department Care Team (Latest Contact Info) Description 10/16/2021 8:58 AM EDT - 10/16/2021 11:59 PM EDT Hospital Encounter [place] [address] Malignant neoplasm of overlapping sites of right [...] 04/18/2021 06/18/2022 Miscellaneous Medical [facility] [...] as of this encounter Progress Notes * Solitario Lopez RN - 10/16/2021 9:28 AM EDT Patient Name: Alis Silva Patient Age: 31 y.o. Birthdate: 1990 Admit date: 10/16/2021 Attending Physician: No att. providers found Access visit. See MAR and/or flowsheet. documented in this encounter Plan of Treatment Upcoming Encounters Date Type Department Care Team (Late st Contact Info) Description 02/13/2025 1:00 PM EDT Office Visit Radiation Oncology at [address] [phone] Eleonora Mensah MD [facility] [place] [address] documented as of this encounter Procedures Procedure Name Priority Date/Time Associated Diagnosis Comments HEMOGRAM STAT 10/16/2021 9:33 AM EDT 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, estrogen receptor positive DIFFERENTIAL, AUTOMATED STAT 10/16/2021 9:33 AM EDT 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, estrogen receptor positive HC CBC,PLT & AUTO DIFF STAT 9:33 AM EDT 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, estrogen receptor positive COMPREHENSIVE METABOLIC PANEL STAT 10/16/2021 9:33 AM EDT 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, estrogen receptor positive documented in this encounter Results * Differential, Automated (10/16/2021 9:33 AM EDT) Neutrophil % 59.3 % [facility] Neutrophil Absolute 3.89 1.70 - 6.10 x10(3)/[facility] Lymph % 25.5 % [facility] Lymphocytes Abs 1.7 0.9 - 3.2 x10(3)/[facility] Monocyte % 12.8 % [facility] Monocyte Abs 0.8 0.3 - 0.9 x10(3)/[facility] Eos % 1.5 % [facility] Eosinophils Abs 0.1 0.0 - 0.4 x10(3)/[facility] Basophil % 0.6 % [facility] Baso Absolute 0.0 0.0 - 0.1 x10(3)/[facility] Immature Gran % 0.30 % [facility] Comment: Immature granulocytes(IG's)percentage and absolute count will include metamyelocytes, myelocytes, and promyelocytes. Blood smears from CBCs yielding IG's will be scanned manually for concordance. If this scan disagrees with the automated IG or if promyelocytes are noted, a manual differential will be performed. Immature Gran Absolute 0.02 0.00 - 0.04 x10(3)/[facility] Blood 10/16/2021 9:33 AM EDT 10/16/2021 9:33 AM EDT Narrative Resulting Agency Comment Spec In Lab Tyra Cornejo MD HEMATOLOGY ORDERABL ES Performing Organization Address City/[facility]/ZIP Co de Phone Number [facility] [place] [address] * (ABNORMAL) Hemogram (10/16/2021 9:33 AM EDT) White Blood Cell 6.6 4.0 - 9.5 x10(3)/mc L [facility] Red Blood Cell 3.86(L) 4.00 - 5.21 x10(6)/mc L [facility] Hemoglobin 11.6(L) 11.7 - 15.5 g/dL [facility] Hematocrit 33.3(L) 35.7 - 45.8 % [facility] Mean Cell Volume 86.3 82.6 - 94.4 fL [facility] Mean Cell Hemoglobin 30.1 27.1 - 32.0 pg [facility] Mean Cell Hemoglobin Concentration 34.8 31.7 - 35.0 g/dL [facility] Platelet 128(L) 145 - 357 x10(3)/mc L [facility] RDW Standard Deviation 39.5 37.0 - 46.0 [facility] RDW coefficient of variation 12.7 11.5 - 14.1 % [facility] Mean Platelet Volume 8.7 7.6 - 12.9 fL [facility] NRBC% auto 0.0 % [facility] NRBC Absolute 0.000 0.000 - 0.000 x10(3)/mc L [facility] Blood 10/16/2021 9:33 AM EDT 10/16/2021 9:33 AM EDT Narrative Resulting Agency Comment Spec In Lab Tyra Cornejo MD HEMATOLOGY ORDERABL ES [facility] [place] [address] * (ABNORMAL) Comprehensive metabolic panel (non-fasting) (10/16/2021 9:33 AM EDT) Glucose 114 65 - 199 mg/dL [facility] Comment:Diabetes: >=200 mg/d L plus symptoms Blood Urea Nitrogen 9 8 - 18 mg/dL [facility] Creatinine 0.75 0.70 - 1.20 mg/dL [facility] Sodium 140 135 - 145 mmol/L [facility] Potassium 3.8 3.5 - 5.0 mmol/L [facility] Comment: Please note: ??Patients with WBC >100,000 may have falsely elevated Potassium levels. ??For accurate Potassium quantification in these patients send serum separator tube (gold top) for subsequent determinations. ??Contact the Clinical Chemistry Laboratory if there are any questions. Chloride 103 98 - 107 mmol/L [facility] Carbon Dioxide 24 22 - 31 mmol/L [facility] Anion Gap 13 5 - 15 mmol/L [facility] Calcium 9.0 8.5 - 10.5 mg/dL [facility] Protein, Total 7.6 6.1 - 8.0 g/dL [facility] Albumin 3.8 3.2 - 5.2 g/dL [facility] Aspartate Aminotransferase 34(H) 0 - 30 unit/L [facility] Alanine Aminotransferase 24 0 - 30 unit/L [facility] Alkaline Phosphatase 65 35 - 105 unit/L [facility] Bilirubin, Total <0.2(L) 0.2 - 1.3 mg/dL [facility] Est Glomerular Filtration Rate 110 >=60 mL/min/1. 73 m?? [facility] Comment: This patient's estimated GFR [...] Lab Tyra Cornejo MD CHEMISTRY ORDERABLE S [facility] [place] [address] documented in this encounter Visit Diagnoses Diagnosis [...] Intravenous, EVERY 1 MIN PRN, Starting on 10/16/21 at 0904, Until Alannah 10/17/21 at 0434, Line Care, Flush pertains to all indwelling lines. Flush per protocol found in the job aid using the link provided on this medication record. Refer to Intravenous (IV) Job Aid: Adult Flushing & Catheter Care (5334) job aid for additional information regarding guidelines and administration., Routine Given 10/16/2021 9:28 AM EDT 20 mLs documented in this encounter Care Teams Final Assembly Inspector Relationship Specialty Start Date End Date Charleen Williamson APRN [address] [place] [address] PCP - General Family Medicine 06/29/20 documented as of this encounter
--- OUTSIDE RECORDS SUMMARY | 2024-05-09 14:00 | XMS_ITS | Encounter Summary ---
Author Organization [facility] Address [facility] [place] [address] Care Team Providers Care Sorting Livestock Worker Name Role Phone Charleen Williamson APRN Primary Care Provider [phone] [phone] Encounter Details Date Type Department Care Team (Late st Contact Info) Description 10/15/2021 11:00 AM EDT TH Visit (TeleHealth) [place] [address] [facility] [place] [address] Adjustment disorder with mixed anxiety and depressed mood; Lymphedema of arm; TALISHA (generalized anxiety disorder) Social History Tobacco [...] Progress Notes * Jossy Yancey APRN - 10/15/2021 11:00 AM EDT PSYCHIATRY CONSULTATION AT [facility] FOLLOW UP Time Spent: 30 minutes Location: Alis located in her home in [place] Attendee(s): Jossy Snell APRN HISTORY Patient Identification: [...] suppression). Chief Complaint: I'm okay. HPI: () I definitely still have a short fuse. Iterates that temper changed when she received her dx and started treatment. Gets frustrated very easily and mad at little things. Not noticing much change with Effexor XR. Negative effects include mild tiredness, possibly difficulty falling asleep, though once asleep Alis states she's good. Usually checking phone before bed and trying to shut down prior to. Sleep has possibly gotten worse since starting Effexor. Restlessness-throughout day, intermittent. When on Zoloft felt restlessness mostly in the evening. Daily scheduled up, dogs out, breakfast, some painting yesterday outdoors. After three hours felt wiped out. She understands fatigue is expected but is annoyed by this as she used to work long days without an issue. Hot flashes 'pretty bad'. Continues struggling with lymphedema. Had been wearing sleeve though thatincreased edema and pain. Getting wrapped during the week. [place] and Alex's two dogs that she walks twice daily. Chronic back pain-will sometimes do OTC pain relief Continues struggling with lymphedema. Had been wearing sleeve though that increased edema and pain.Getting wrapped during the week. Denies SI/HI Pertinent Medication Side Effects: Gabapentin I felt like a zombie when I took it in the morning (discontinued) Patient denies signs/symptoms of prasanna or hypomania, [...] Medications Medication Sig Dispense Refill ??? venlafaxine XR (EFFEXOR-XR) 150 mg Capsule, [...] daily for four weeks. (Patient not taking: Reported on 09/25/2021) 1 each 0 ??? lidocaine (Xylocaine) 2 [...] 3 ??? Miscellaneous Medical Supply Misc by [facility].(Non-Drug; Combo Route) route. Remedy Phytoplex Moisturizer. Apply [...] at night with it Trazodone 150 mg SUBSTANCE USE HISTORY: ETOH: None currently Drugs: none Nicotine: none Caffeine: Very minimal, doesn't like coffee ?? FAMILY PSYCHIATRIC HISTORY: We never really talked about mental health growing up. No family history of suicide attempts ?? DEVELOPMENTAL/PSYCHOSOCIAL HISTORY: Currently lives in [place], [place] with her Elmer Relationship status: . 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 Trauma/Abuse History: not reviewed EXAM Constitutional System ? Vital Signs: There were no vitals taken for this visit. Musculoskeletal System ? Muscle Strength/Tone: normal tone, no weakness ? Gait and Station: steady gait, without abnormality Psychiatric System ? General Appearance/Behavior: Well-developed, well nourished female appearing stated age. Dressed in casual weather-appropriate clothing. Cooperative and pleasant. ? Movements: no abnormal movements or tremor ? Speech: regular rate, volume, and tone ? Thought Process: coherent, goal-directed ? Associations: Tight ? Abnormal Thoughts and Perceptions / Thought Content: Focused on Homicidality / Violent Thoughts: Denies Suicidality: Denies Hallucinations: Denies Delusions: None Obsessions: None ? Judgment and Insight: good/fair ? Mood & Affect: Mood is okay. Affect is congruent with mild blunted presentation ? Orientation: to person, place, time and situation ? Attention/Concentration: grossly intact ? Memory: grossly intact ? Language: normal ? Fund of Knowledge: employee's representative of education level MEDICAL DECISION MAKING ; ASSESSMENT: Alis Silva is a 31 y.o. Female with symptoms of MDD and anxiety, both likely exacerbated by ovarian suppression. We have successfully tapered off Zoloft and continued Venlafaxine at150 mg for 1.5 weeks. Alis is interested in increasing to 225 mg; directed to take an additional 37.5 mg Thursday and with increase to 225 mg on Thursday of this week (10/18). Most beneficial will be continued therapy once the oncology center establishes a new trainee. F/U in two weeks. RECOMMENDATIONS/PLAN ?? Safety: SI/HI denied; reviewed office and emergency contact info. Crisis line is [phone] ?? Medications: Effexor 150 mg increasing to 225 mg this Thursday ?? Additional treatment recommendations: on waitlist for new trainee at [facility] ?? FOLLOW-UP CARE: 1. Follow up care planned for: 2 weeks with this provider 3. Pt is aware is aware of [...] further on this case. Jossy Yancey APRN 10/15/2021 documented in this encounter Plan of Treatment Upcoming Encounters Date Type Department Care Team (Late st Contact Info) Description 02/13/2025 1:00 PM EDT Office Visit Radiation Oncology at [address] [address] [facility] [place] [address] documented as of this encounter Visit Diagnoses Diagnosis Adjustment disorder with mixed anxiety and depressed mood Lymphedema of arm Other lymphedema TALISHA (generalized anxiety disorder) Generalized anxiety disorder documented in this encounter Care Teams Sorting Livestock Worker Relationship Specialty Start Date End Date Charleen Williamson APRN [address] [place] [address] PCP - General Family Medicine 06/29/20 documented as of this encounter
--- OUTSIDE RECORDS SUMMARY | 2024-05-09 14:01 | XMS_ITS | Encounter Summary ---
Author Organization [facility] Address [facility] [place] [address] Care Team Providers Care Transportation Planning Technician Name Role Phone Charleen Williamson APRN Primary Care Provider [phone] Encounter Details Date Type Department Care Team (Late st Contact Info) Description 10/01/2021 11:00 AM EDT TH Visit (TeleHealth) Hematology [place] [address] Jossy Yancey GENERAL LEDGER BOOKKEEPER [facility] [address] Adjustment disorder with mixed anxiety and depressed mood (Primary Dx); Lymphedema of arm; Malignant neoplasm of overlapping [...] Progress Notes * Jossy Yancey APRN - 10/01/2021 11:00 AM EDT PSYCHIATRY CONSULTATION AT [facility] FOLLOW UP Time Spent: 30 minutes Location: Alis located in her home in [place] Attendee(s): Jossy Snell APRN HISTORY Patient Identification: [...] suppression). Chief Complaint: I'm okay. HPI: () Continues feeling irritable, angry though thinks mood may be slightly improved. Less irritable thanin previous months and is unsure if this is related to Zoladex q 3 months versus monthly. We reviewZoladex and effects it has on body/emotions. Just increased Effexor XR to 112.5 mg on 09/[address] Cramer Hot flashes extreme when hot outside. . Gets frustrated very easily and mad at little things. This is not how I used to be. Gives exampleof leaving his shoes where they aren't supposed to go. I usually move them and then I'm pissy for a little while. Hoping to get back to work-wants to start at the [employer] and then go out from there Sleep- If I can fall asleep I'm fine. Waking up around 5 am and still going to bed around 9 pm. [place] and Alex's two dogs that she walks twice daily. Did go grocery shopping this past Thursday. Enjoys in general and felt good to get out. Therapy next week with Mei. Struggling with lymphedema of right hand-Thursday getting fitted with sleeve. Denies SI/HI Pertinent Medication Side Effects: Gabapentin [...] Medication Sig Dispense Refill ??? venlafaxine XR (Effexor-XR) 37.5 mg Capsule, Sust. Release 24 hr Take 3 capsules by mouth daily. 90 capsule 3 ??? lidocaine-prilocaine (EMLA) Cream APPLY [...] 3 ??? Miscellaneous Medical Supply Misc by [facility] [...] Negative Psychiatric X (as per HPI) Constitutional x Integumentary x Eyes/Ears/Sinuses x Cardiac x Respiratory x Gastrointestinal x Genitourinary x Vascular Right hand lymphedema Musculoskeletal x Neurologic x Hematologic x Endocrine x Allergy [...] attempts ?? DEVELOPMENTAL/PSYCHOSOCIAL HISTORY: Currently lives in [place], [place] with her Elmer Relationship status: . 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 Trauma/Abuse History: not reviewed EXAM Constitutional [...] ? Language: normal ? Fund of Knowledge: telephone claims representative of education level MEDICAL DECISION MAKING ; ASSESSMENT: Alis Silva is a 31 y.o. Female with symptoms of MDD and anxiety, both likely exacerbated by ovarian suppression. We have successfully tapered off Zoloft and continued Venlafaxine at112.5 mg this week. We will continue on this dose with plan to increase to 150 mg this Thursday. F/U in two weeks. RECOMMENDATIONS/PLAN ?? Safety: SI/HI denied; reviewed office and emergency contact info. Crisis line is [phone] ?? Medications: Effexor 112.5 mg increasing to 150 mg this Thursday ?? Additional treatment recommendations: continued therapy with Mei ?? FOLLOW-UP CARE: 1. Follow up care [...] collaborate further on this case. Jossy Yancey, GENERAL LEDGER BOOKKEEPER 10/01/2021 documented in this encounter Plan of Treatment Upcoming Encounters Date Type Department Care Team (Late st Contact Info) Description 02/13/2025 1:00 PM EDT Office Visit Radiation Oncology at [address] [phone] Eleonora Mensah MD [facility] [place] [address] documented as of this encounter Visit Diagnoses Diagnosis Adjustment disorder with mixed anxiety and depressed mood- Primary Lymphedema of arm Other lymphedema 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, estrogen receptor positive documented in this encounter Care Teams Transportation Planning Technician Relationship Specialty Start Date End Date Charleen Williamson APRN [address] [place] [address] PCP - General Family Medicine 06/29/20 documented as of this encounter
--- OUTSIDE RECORDS SUMMARY | 2024-05-09 14:01 | XMS_ITS | Encounter Summary ---
Author Organization [facility] [place] [address] Care Team Providers Care Financial Reporting Accountant Name Role Phone Charleen Williamson APRN Primary Care Provider [phone] [phone] Encounter Details Date Type Department Care Team (Late st Contact Info) Description 08/20/2021 11:30 AM EDT TH Visit (TeleHealth) Hematology [place] [address] Jossy Yancey BAG PRESSER [facility] [place] [address] Current moderate episode of major depressive disorder without prior episode (Primary Dx); TALISHA (generalized anxiety disorder); Malignant 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, estrogen receptor positive; Swelling of right hand Social History Tobacco Use [...] Progress Notes * Jossy Yancey APRN - 08/20/2021 11:30 AM EDT PSYCHIATRY CONSULTATION AT [facility] FOLLOW UP Time Spent: 30 minutes Location: Alis located in her home in [place] Attendee(s): Jossy Snell APRN HISTORY Patient Identification: Alis Silva is a 30 y.o. Female presents today with MDD after their initial psychiatric evaluation on 08/06/21. Patient has breast cancer. Current cancer treatment regiment: she is s/p??mastectomy/ALND, RT. She started tamoxifen on 06/18/21 and is also on adjuvant T-DM1, with Goserelin 10.8 mg q12 weeks (for ovarian suppression). Chief Complaint: I'm still really irritable. HPI: () Irritable, angry at times (swearing at times), shut down. Also frustrated with brain fog/decreased concentration. Did have neuropsychological test with Dr. Dykes last week. Feels sleep has improved with Buspar discontinued and starting gabapentin. Sleeping 9pm -7 am. We discuss trialing a few nights without gabapentin-the discontinuation of Buspar may be all she needed to sleep well again Review the likelihood of ovarian suppression exacerbating her underlying depression and anxiety. Her main concern is irritability and overall low mood. Anxiety is intermittent. As of today: Depression: 7/10 (ten being the worst) Anxiety: 4/5 Pertinent Medication Side Effects: Gabapentin I felt like a zombie when I took it in the morning Patient denies signs/symptoms of prasanna or hypomania, [...] in female, estrogen receptor positive C50.911, Z17.0 Current Medications: Current Outpatient Medications Medication Sig Dispense Refill ??? gabapentin (Neurontin) 100 mg Capsule Take 1 capsule by mouth 2 times daily. 60 capsule 0 ??? diclofenac (Voltaren) 1 % Gel Apply 2 g to each affected area up to 4 times daily; maximum doseper joint: 8 g/day; maximum total body dose (all combined joints): 32 g/day. 200 g 0 ??? tamoxifen (NOLVADEX) 20 [...] 3 ??? Miscellaneous Medical Supply Misc [place] [facility]Non-Drug; Combo Route) route. Remedy Phytoplex Moisturizer. Apply to area of radiation twice a day but no less than 2 hours before a treatment. ??? acetaminophen (Tylenol) 500 mg Tablet Take 2 tablets by mouth every 6 hours. 30 tablet 1 ??? ibuprofen (Advil) 600 mg Tablet Take 1 tablet by mouth every 6 hours. 30 tablet 12 ??? acetylcysteine (NAC) 600 mg Tablet Take 600 mg by mouth 2 times daily. ??? omeprazole (PriLOSEC) 40 mg Capsule, Delayed Release(E.C.) Take 40 mg by mouth daily. ??? sertraline (ZOLOFT) 100 mg Tablet Take 200 mg by mouth daily. ??? prochlorperazine (Compazine) [...] Take 10 mg by mouth daily. ??? lidocaine-prilocaine (EMLA) Cream Apply topically 60 minutes prior to accessing port. Apply a thick layer of cream to designated site of intact skin. Cover site with occlusive dressing. 30 g 1 ??? lactobacillus rhamnosus, GG, (CULTURELLE) 10 billion [...] x Gastrointestinal x Genitourinary x Vascular Right arm lymphedema Musculoskeletal x Neurologic x Hematologic x [...] attempts ?? DEVELOPMENTAL/PSYCHOSOCIAL HISTORY: Currently lives in [place], [place] with her Elmer Relationship status: . [...] ?? 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 Trauma/Abuse History: not reviewed EXAM Constitutional [...] good/fair ? Mood & Affect: Mood is not great. Affect is flat/congruent ? Orientation: to person, place, time and situation ? Attention/Concentration: grossly intact ? Memory: grossly intact ? Language: normal ? Fund of Knowledge: patient registration representative of education level MEDICAL DECISION MAKING ASSESSMENT: Alis Silva is a 30 y.o. Female with symptoms of MDD and anxiety, both likely exacerbated by ovarian suppression. Eliminating Buspar seems to have helped improve sleep though irritability during the day continues as does brain fog and overall low mood. We discuss stopping gabapentin altogether as sleep may be improved just by stopping Buspar. I am concerned with serotonin syndrome and do not want to add a serotonergic agent in combination with Trazodone and Zoloft. One consideration would be to discontinue Zoloft and start a SNRI; an alternative would be to add Abilify as an adjunct to current regimen. Venlafaxine would target not only mood symptoms but vasomotor symptoms Alis continues to have. Will begin by tapering Zoloft over the next few weeks and start venlafaxineat a low dose. RECOMMENDATIONS/PLAN ?? Safety: SI/HI denied; reviewed office and emergency contact info. Crisis line is [phone] ?? Medications: Zoloft 150 mg x 1 week, 100 mg x 1 week, 50 mg x 1 week then stop; start venlaxine 37.5 mg the day after stopping Zoloft ?? Additional treatment recommendations: continued therapy with Mei ?? FOLLOW-UP CARE: 1. Follow up care planned for: one month with this provider 3. Pt is aware [...] further on this case. Jossy Yancey APRN 08/20/21 documented in this encounter Plan of Treatment Upcoming Encounters Date Type Department Care Team (Late st Contact Info) Description 02/13/2025 1:00 PM EDT Office Visit Radiation Oncology at [address] [phone] Eleonora Mensah MD [facility] [place] [address] documented as of this encounter Visit Diagnoses Diagnosis Current moderate episode of major depressive disorder without prior episode- Primary TALISHA (generalized anxiety disorder) Generalized anxiety disorder Malignant 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, estrogen receptor positive Swelling of right hand documented in this encounter Care Teams Financial Reporting Accountant Relationship Specialty Start Date End Date Charleen Williamson APRN [address] [place] [address] PCP - General Family Medicine 06/29/20 documented as of this encounter
--- OUTSIDE RECORDS SUMMARY | 2024-05-09 14:01 | XMS_ITS | Encounter Summary ---
Author Organization [facility] Address [facility] [place] [address] Care Team Providers Care Rolloff Truck Driver Name Role Phone Charleen Williamson APRN Primary Care Provider [phone] [phone] Reason for Visit * Treatment/Therapy Plan Authorization (Routine) - Closed Specialty Diagnoses / Procedures Referred By Contac t Referred To Contact Diagnoses 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, estrogen receptor positive Procedures INJ, ADO-TRASTUZUMAB EMT 1MG TC GOSERELIN ACETATE IMPLANT, 3.6MG (ZOLADEX) TC PALONOSETRON HCL, 25MCG, INJECTION (ALOXI) Tyra Cornejo MD [facility] [place] [address] [facility] Hem Onc Office [address] [place] [phone] Referral ID Status Reason Start Date Expiration Date Visits Re quested Visits Authorized [id number] Closed 03/01/2021 04/26/2022 99 99 Encounter Details Date Type Department Care Team (Latest Contact Info) Description 09/04/2021 12:04 PM EDT - 09/04/2021 11:59 PM EDT Hospital Encounter Hematology [place] [address] Malignant neoplasm of overlapping sites of right [...] EVERY 8 HOURS NEEDED FOR ANXIETY 07/09/2020 RX ADULT COMPOUNDED MEDICATION After cleansing, apply topically to the fissure twice daily for four weeks. 1 each 09/04/2021 01/24/2022 lidocaine (Xylocaine) 2 % jelly Apply topically to anal fissure as needed for pain relief. Do not use more than 30 mL in a 24-hr period. 30 mL 2 09/04/2021 06/10/2023 venlafaxine XR (Effexor-XR) 37.5 mg Capsule, Sust. Release 24 hr Take 1 capsule by mouth daily. After 5 doses, increase to two capsules (begin this medicine after stopping Zoloft as directed) 30 capsule 09/03/2021 09/17/2021 gabapentin (Neurontin) 100 mg Capsule Take 1 [...] 04/18/2021 06/18/2022 Miscellaneous Medical Supply Misc by [facility].(Non-Drug; Combo Route) route. Remedy Phytoplex Moisturizer. Apply to area of radiation twice a day but no less than 2 hours before a treatment. 06/18/2022 ibuprofen (Advil) 600 mg Tablet Take 1 tablet by mouth every 6 hours. 30 tablet 12 01/28/2021 03/24/2022 sertraline (ZOLOFT) 100 mg Tablet Take 200 mg by mouth daily. 12/11/2020 09/17/2021 prochlorperazine (Compazine) 10 mg Tablet Take 1 tablet by mouth every 6 hours as needed for Nausea. 15 tablet 12/07/2020 03/24/2022 loratadine (Claritin) 10 mg Tablet Take 10 mg by mouth daily. 11/15/2021 lidocaine-prilocaine (EMLA) Cream Apply topically 60 minutes prior to accessing port. Apply a thick layer of cream to designated site of intact skin. Cover site with occlusive dressing. 30 g 1 07/20/2020 09/11/2021 lactobacillus rhamnosus, GG, (CULTURELLE) 10 billion cell Capsule Take 1 capsule by mouth daily. 02/15/2024 documented as of this encounter Progress Notes * Alis Mc RN - 09/04/2021 3:25 PM EDT Patient Name: Alis Silva Patient Age: 30 y.o. Birthdate: 1990 Admit date: 09/04/2021 Attending Physician: No att. providers found Alis Silva, 30 y.o. female with diagnosis of Breast cancer is here for chemotherapy infusion of Kadcyla. PROTOCOL: no CYCLE: 7 DAY: 1 S: Pt. offers no complaints at this time. Reviewed plan of care for infusion visit; patient verbalized understanding of plan as outlined. O: Chemotherapy orders independently verified for correct drug name, route and dosage per patient'sheight, weight and BSA by Alis Mc RN and onsite pharmacist. Chemotherapy administered per hospital [...] PM EDT Office Visit Radiation Oncology at [address] [phone] Eleonora Mensah MD [facility] DR [place] [address] documented as of this encounter Visit Diagnoses [...] 300 mg, Intravenous, ONCE, 1 dose, On Thu09/04/21 at 1530, Administer over 30 Minutes, Monitor patient for ado-trastuzumab emtansine infusion reactions 30 minutes after each subsequent dose if the first dose was well-tolerated. Dose Ordered = 303 mg (3.6 mg/kg). Pharmacist rounded dose per procedure., This agent is restricted to outpatient use. Is this drug being given as an outpatient? Yes New Bag 09/04/2021 3:57 PM EDT 300 mg 530 mL/hr dexamethasone (PF) (Decadron) (10 mg/mL) injection 10 mg 10 mg, Intravenous, ONCE, 1 dose, On Thu09/04/21 at 1430 Given 09/04/2021 2:51 PM EDT 10 mg heparin (pf) (porcine) (100 units/mL) flush 5 mL syringe 500 Units 500 Units, Intravenous, ONCE PRN, Starting on Thu09/04/21 at 1402, Until Alannah 09/05/21 at 0434, Line Care, Refer to Intravenous (IV) Procedure: Accessing Implanted Vascular Access Devices (214) procedure and/or Intravenous (IV) Job Aid: Adult Flushing & Catheter Care (1395) job aid for additional information regarding guidelines and administration., Routine Given 09/04/2021 4:36 PM EDT 500 Units palonosetron (Aloxi) (0.05 mg/mL) injection 0.25 mg 0.25 mg, Intravenous, ONCE, 1 dose, On Thu09/04/21 at 1430, Routine Given 09/04/2021 2:46 PM EDT 0.25 mg sodium chloride 0.9 % (flush) (BD PosiFlush Normal Saline 0.9) flush 5-20 mL 5-20 mL, Intravenous, EVERY 1 MIN PRN, Starting on Thu09/04/21 at 1402, Until Alannah 09/05/21 at 0434, Line Care, Flush pertains to all indwelling lines. Flush per protocol found in the job aid using the link provided on this medication record. Refer to Intravenous (IV) Job Aid: Adult Flushing & Catheter Care (6430) job aid for additional information regarding guidelines and administration., Routine Given 09/04/2021 4:36 PM EDT 20 mLs documented in this encounter Care Teams Rolloff Truck Driver Relationship Specialty Start Date End Date Charleen Williamson APRN [address] [place] [address] PCP - General Family Medicine 06/29/20 documented as of this encounter
--- OUTSIDE RECORDS SUMMARY | 2024-05-09 14:01 | XMS_ITS | Encounter Summary ---
[place] [address] Care Team Providers Care Manager Sports Name Role Phone Charleen Williamson APRN Primary Care Provider [phone] Encounter Details Date Type Department Care Team (Latest Contact Info) Description 10/08/2021 1:00 PM EDT TH Visit (TeleHealth) Hematology [place] [address] Mei Zamora Adjustment disorder with mixed anxiety and depressed [...] as of this encounter Progress Notes * Mei Zamora - 10/08/2021 1:00 PM EDT [facility] PSYCHO-ONCOLOGY FOLLOW-UP N [facility] HEMATOLOGY AND ONCOLOGY AT [facility] [id number] Dept: [phone] Loc: [phone] 10/08/2021 1:00PM Time spent: 45 minutes. Location: Telehealth. Alis Silva gave permission for and was seen for today's appointment with a Telehealth visit. During this visit they were located [place]. Alis Silva is aware that for any urgent matter they can call [phone]. Attendees: Patient SESSION #: 2 CHIEF COMPLAINT Adjustment to cancer dx and tx GOALS FOR THERAPY ??? Reduce anxiety, irritability and overwhelmed ??? Improve coping with uncertainty and fear of recurrence S/O Since the previous session, Alis Silva reported a slight improvement in anxiety and depression, likely due to a recent change in medication. Today's session focused on psychoeducation and behavioral activation. Therapist introduced Cognitive Behavioral Therapy and provided rationale for behavioral intervention. Patient and therapist identified multiple activities that would increase her positive affect, and problem solved barriers (money, low energy). Lastly, therapist notified patient ofher departure from [facility] at the end of September and patient and therapist discussed termination plan. Patient expressed that she would prefer to be transferred and agreed to [facility] for her next visit. A Diagnosis: Adjustment disorder with mixed anxiety and depressed mood Mental Status: No SI. Mental status WNL. Fully engaged in therapy process. P No follow up with current therapist required. Patient requested to be transferred to new training therapist. Alis Silva has my contact information and was encouraged to reach out to me in the future as needed. * Lacy Barroso, PhD - 10/08/2021 1:00 PM EDT I have reviewed this note and agree with the plan and treatment. Alis will be transferred to the incoming analytics intern towards the end of October/beginning of November. Alis is aware that she canreach out to this provider in the interim. Lacy Barroso, PhD documented in this encounter Plan of Treatment Upcoming Encounters Date Type Department Care Team (Late st Contact Info) Description 02/13/2025 1:00 PM EDT Office Visit Radiation Oncology at [address] [address] Eleonora Mensah MD [facility] [place] [address] documented as of this encounter Visit Diagnoses Diagnosis Adjustment disorder with mixed anxiety and depressed mood documented in this encounter Care Teams Manager Sports Relationship Specialty Start Date End Date Charleen Williamson APRN [address] [place] [address] PCP - General Family Medicine 06/29/20 documented as of this encounter
--- OUTSIDE RECORDS SUMMARY | 2024-05-09 14:01 | XMS_ITS | Encounter Summary ---
Author Organization [facility] Address [facility] [place] [address] Care Team Providers Care Floor Installation Mechanic Name Role Phone Charleen Williamson APRN Primary Care Provider [phone] Reason for Visit * Psychiatric (Routine) - Closed Specialty Diagnoses / Procedures Referred By Contac t Referred To Contact Hematology and Oncology Diagnoses Adjustment disorder with mixed anxiety and depressed mood Cognitive changes Barbara Cain PA [facility] [place] [address] Dafne Dykes, PhD [facility] [place] [address] Referral ID Status Reason Start Date Expiration Date V isits Requested Visits Authorized [id number] Closed Consult, Test & Treat 07/24/2021 07/24/2022 1 1 Encounter Details Date Type Department Care Team (Latest Contact Info) Description 08/12/2021 10:00 AM EDT TH Visit (TeleHealth) [place]ology [place] [address] Dafne Dykes, PhD [facility] [place] [address] Malignant 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, estrogen receptor positive; Adjustment disorder with mixed anxiety and depressed mood; Fatigue, unspecified type; Cognitive changes Social History Tobacco Use Types [...] Progress Notes * Dafne Dykes, PhD - 08/12/2021 10:00 AM EDT NEUROPSYCHOLOGICAL CONSULTATION Patient's Name: Alis Silva A#: [id number] Date of Evaluation: 08/12/2021 Age: 30 years Date of : 1990 Occupation: Not currently employed Sex: Female Education: 16+ years Lateral Dominance: Right-handed Referred By: IVY Moffett MD BACKGROUND AND REASON FOR REFERRAL: Ms. [...] cancer diagnosed 06/29/2020, s/p neoadjuvant chemotherapy with TCHP and right mastectomy/ALND. 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 She has been experiencing ongoing fatigue, cognitive difficulties, hot flashes, night sweats, irritability, sadness, and anxiety. She is being seen through the Psycho-Oncology program for medication treatment and is about to start psychotherapy. On interview today, she reports frequent difficulty remembering things. For example, if she stops mid-task she forgets what was doing. At doctor???s appointments, she has difficulty remembering answers to questions. Memory difficulties affect her ability to plan and organize unless she writes things down. She started noticing this after radiation and it???s been about the same over time. She sometimes notices difficulty with word-finding. She has not noticed significant difficulties with other cognitive domains such as speech comprehension or spatial skills. She is currently being treated forright arm lymphedema, but otherwise has not noticed difficulty with hand/arm function. She notices being a little off-balance when on a treadmill, but feels her gross motor function is otherwise within normal limits. In terms of activities of daily living, she sets alarms to remind her to take her medications. She tends to write things down now but sometimes forgets when she put the reminders. She is driving and has had no difficulties, accidents, or close-calls. Other Medical History: She has had depression and anxiety, which she feels is under fairly good control with medication. She will be starting psychotherapy through the psycho-oncology program tomorrow. She feels she has had anxiety since childhood, but never marked enough to require treatment. She has no history of head injury, seizures, or other neurological disorder. She has never used drugs ortobacco products. She is not currently consuming alcohol. Developmental, Educational, and Social History: Her and early development were within normal limits. She never had attention or learning difficulties. She was a good student with grades mostly in the ???A?? range. She was less strong in Math. 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 She has not been formally employed since then. 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 She would like to return to work when she is able, but is unsure what type of work she will do. Family Medical History: There is no known history of cognitive disorders such as ADHD or learning disorder in her family. Other family history includes high blood pressure (mother, father), breast cancer (paternal grandmother), and ovarian and uterine cancer (paternal aunt). Medications: gabapentin (Neurontin), diclofenac (Voltaren) gel, tamoxifen, Silvadene cream, clotrimazole (Mycelex), triamcinolone (Kenalog) cream, trazodone (Desyrel), acetaminophen (Tylenol), ibuprofen (Advil), acetylcysteine, omeprazole (Prilosec), sertraline (Zoloft), prochlorperazine (Compazine), propranoloL (Inderal), ondansetron (Zofran), loratadine (Claritin), lidocaine- prilocaine cream, lactobacillus rhamnosus, melatonin, hydroxyzine (Atarax). Prior Neuropsychological Testing: None. BEHAVIORAL OBSERVATIONS: Ms. Silva was alert and fully cooperative with the evaluation. She had no difficulty understanding interview questions. Her speech was fluent, without paraphasic errors, and normal in content. Thought processes were linear and goal-directed. Affect appeared depressed withrestricted range. She was able to see and hear the test stimuli, and understood the test instructions. At times, she was able to increase her performance (e.g., her rate of responding) with encouragement or a second trial. She appeared to give maximal effort, and the obtained results are considereda valid indication of her current level of cognitive functioning. PROCEDURES ADMINISTERED: Clinical Interview Digit Span Forward and Backward (WAIS-IV) Oral [place]-Making Test Alternating Figures Heath Verbal Learning Test - Revised (HVLT-R) Ruth Ann-Chiang Executive Function System (DK) Verbal Fluency Drawings to Command and Copy Clock Drawing Test Thumb-Finger Sequencing Test Linn Depression Inventory-Fast Screen for Medical Patients (BDI-FS) Due to the COVID-19 pandemic, this appointment was, with the consent of the patient, carried out using [employer] [place] software with the patient located at her parents??? home in [place]. A description of the specific test modifications [...] a more specific descriptor is not applicable. Descriptor Standard Score Scaled z Percentile Very [...] < -2 < 2 Measure Score Descriptor Attention and Executive Functioning Digit Span Forward () 9 Average Digit Span Backward () 10 Average Oral [place]-Making A (Seconds, z) 8 (-1.3) Low Average Oral [place]-Making B (Seconds, z)* 63 (-2.4) Extremely Low Alternating Figures (errors) 2 WNL Learning and Memory HVLT-R Form 1 Learning Trials (RS) 7, 10, 11 Total Learning (RS, z) 28/36 (-0.2) Average Delayed Recall (RS, z) 11/12 (0.4) Average Recognition (TH, FP, z) 12/12, 1 FP (0.1) Average Language Skills DK Verbal Fluency Form A Letter () 8 Average Category () 2 Extremely Low Spatial Skills Drawing to Command - Cube (RS, z) -- See Text Drawings to Copy - Cross (RS, z) 1 (0.8) High Average Cube (RS, z) 1 (0.8) High Average Hexagons (RS, z) 3 (-2.1) Extremely Low Clock Drawing to Command (RS) 7/10 WNL Fine Motor Skills TFST - Dominant (RS, z) -- See Text TFST - Nondominant (RS, z) 9 (0.1) Average Questionnaires BDI-FS (RS) 8 Mild RS = raw score; = age scaled score; T = T-score; TH = total hits; FP = false positives; FL = percentile rank; CP = cumulative percentage * prorated after discontinuation REVIEW OF TEST RESULTS: Attention and Executive Functions: Basic auditory attention span was in the average range. Auditory-verbal working memory was also in the average range. Her initial performance on a ojqvk-rz-axbkzhkzwp task was somewhat slow, but improved to the low average range with re-instruction on a second trial. When demands on cognitive flexibility were added, however, she was unable to complete the task; her her prorated score was in the extremely low range. On a step-down measure of cognitive flexibility, she made two errors (within normal limits). Learning and Memory: Learning of a word list was in the average range. Delayed recall and recognition of the words were also average. Language: Rate of word retrieval was in the average range on a letter-cued task, and in the extremely low range on a category-cued task. There were no paraphasic errors, rare repetitions, and no lossof set. Overall, the pattern was most suggestive of variable processing speed rather than a core language deficit per se. Spatial Skills: Clock-drawing to command was within normal limits, with only minor difficulty with spatial arrangement of the numbers and an error in setting the time. Her hujwiio-at-smepylr of a cube was a 2D square and was not scored. Drawings to copy were in the high average range for a cross and a cube. When asked to copy intersecting hexagons, there were minor errors in placement and size. Overall, despite some variability, spatial skills were grossly within normal limits. Fine Motor: Fine motor function could not be tested with her right (dominant) hand because of lymphedema. Left fine motor function was average. Questionnaire: On a brief mood screen, her pattern of responses suggested clinically significant depression. She endorsed items such as sadness, anhedonia, discouragement, sense of failure, loss of confidence, and self- critical thinking. She denied suicidal ideation, intent, and plan. Comparison to Prior Testing: No prior. SUMMARY AND RECOMMENDATIONS: On current brief evaluation, Ms. Silva???s cognition was intact in most domains assessed. This includes intact attention, working memory, verbal learning and memory, spatial skills, and fine motor function with the left hand (the right being treated for lymphedema). She did show variations in speed of processing, and difficulty with cognitive flexibility on a task that required her to rapidly switch trains of thought. Rate of word retrieval was also variable, mostlikely due to the rapid processing demands rather than a core language deficit per se. Mood was depressed. She denied suicidal ideation, intent, and plan. In summary, she showed variable processing speed and difficulty with cognitive flexibility (or ???mental multi-tasking?? ) in a context of otherwise intact cognition and depressed mood. Her isolated cognitive difficulties are likely at least partly due to her depression, though underlying deficits related to the cancer or its treatment cannot be ruled out at this time. Her difficulties are likelyexacerbated when she is tired and in situations that call for fast-paced responding and mental multi-tasking. (1) I reviewed the preliminary findings with Ms. Silva at the time of testing, and have met with her to review the final results in more detail. It is encouraging to see such strong memory test results at this time. (2) She can be commended for participating in both medication treatment and psychotherapy for treatment of depression. This treatment combination is optimal and we discussed that with improvement in her mood she is likely to also experience improvement in cognitive functioning. (3) In terms of compensatory cognitive strategies, at this time I recommend adopting small changes,such as starting to keep a single centralized marketing planner or diary where she can keep her lists and notes in one place. Ideally, this should be something that she can carry with her to medical appointments to help her respond to questions during appointments. (4) The current evaluation was abbreviated given the likely impact of depression on her current cognitive functioning and the potential for near-term improvement once her psychotherapeutic care is established. I would like to see her back in about three months to assess whether or not she continuesto experience significant subjective cognitive difficulties and to determine whether more comprehensive evaluation and/or cognitive rehabilitation is warranted at that time. She is in agreement with this plan. (5) She is aware she is welcome to contact me at any time in the interim ( or via [facility]). Thank you for referring Ms. Silva for neuropsychological evaluation. Please do not hesitate to contact me if I can be of assistance (Neuro-Oncology or via eD or [facility]). Dafne Dykes, PhD Clinical Neuropsychologist 14338: 0:18 (0 units) 30937: 1:00 (1 unit) 51797: 0:51 (1 unit) 20546: 0:30 (1 unit) 45465: 0:45 (1 unit) documented in this encounter Plan of Treatment Upcoming Encounters Date Type Department Care Team (Late st Contact Info) Description 02/13/2025 1:00 PM EDT Office Visit Radiation Oncology at [address] [phone] Eleonora Mensah MD [facility] [place] [address] Scheduled Referrals Name Type Priority Associated Diagnoses Order Schedule Referral to Neuropsychology Outpatient Referral Routine Adjustment disorder with mixed anxiety and depressed mood Cognitive changes Ordered: 07/24/2021 documented as of this encounter Visit Diagnoses Diagnosis Malignant 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, estrogen receptor positive Adjustment disorder with mixed anxiety and depressed mood Fatigue, unspecified type Cognitive changes Other signs and symptoms involving cognition documented in this encounter Care Teams Floor Installation Mechanic Relationship Specialty Start Date End Date Charleen Williamson APRN [address] [place] [address] PCP - General Family Medicine 06/29/20 documented as of this encounter
--- OUTSIDE RECORDS SUMMARY | 2024-05-09 14:01 | XMS_ITS | Encounter Summary ---
Author Organization [facility] Address [facility] [place] [address] Care Team Providers Care Spudder Name Role Phone Charleen Williamson APRN Primary Care Provider [phone] [phone] Reason for Visit * Reason Comments Follow-up Encounter Details Date Type Department Care Team (Late st Contact Info) Description 08/14/2021 1:30 PM EDT Office Visit Hematology [place] [address] Tyra Cornejo MD [facility] [address] [place] [address] Malignant 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, estrogen receptor positive; Lymphedema Social History Tobacco Use Types Packs/Day Years [...] Sign Reading Time Taken Comments Blood Pressure 125/81 08/14/2021 1:04 PM EDT Pulse 82 08/14/2021 1:04 PM EDT Temperature 36.7 ??C (98.1 ??F) 08/14/2021 1:04 PM ED T Respiratory Rate 17 08/14/2021 1:04 PM EDT Oxygen Saturation 100% 08/14/2021 1:04 PM EDT Inhaled Oxygen Concentration - - Weight 82.6 kg (182 lb) 08/14/2021 1:04 PM EDT Height 175 cm (5' 8.9) 08/14/2021 1:04 PM EDT Body Mass Index 26.96 08/14/2021 1:04 PM EDT documented in this encounter Progress Notes * Tyra Cornejo MD - 08/14/2021 1:30 PM EDT [facility] Breast Oncology Clinic: Follow-up Visit ?? Identification: 30 y.o. female with locally advanced right breast cancer; s/p neoadjuvant chemotherapy with TCHP, R mastectomy/ALND; currently on adjuvant T- DM1 for residual disease. ? Interim History: Alis presents today for 3-week follow-up on adjuvant T-DM1; ?? Her hand and wrist began swelling several weeks ago. Duplex US was negative for DVT. Alternating Tylenol and ibuprofen has been somewhat helpful. She has seen PT and a wrap was placed while she gets fitted for a sleeve. She would like to go back to work but this is another big setback. ?? She remains quite fatigued, mood is ok and she is following up with all recommended referrals and compliant with medications. She admits she isn't one to talk to people much about what she's feeling.She is trying to stay active. ? Review of Systems: General: Denies fevers, chills, appetite changes. Skin: Denies rashes, new skin lesions. HEENT: Denies headaches, double vision, dental pain, mouth sores. Pulm: Denies cough. Reports intermittent dyspnea with activity/stairs. CV: Denies chest pain, palpitations. Extremities: Denies peripheral edema, leg swelling/pain/redness. GI: Denies vomiting, heartburn, diarrhea, constipation, hematochezia, melena. : Denies dysuria, hematuria. Repro: Premenopausal. Previously on Depot Provera q3 months, last dose early June 2020. Currently receiving goserelin. No vaginal bleeding. Denies vaginal dryness or irritation. Heme: Denies bleeding, easy bruising. MSK: Denies other new or worsening skeletal pain, joint pains, myalgias. Neuro: Denies dizziness, lightheadedness, weakness, balance problems. Reports intermittent numbness/tingling in fingertips/toes, stable. Psych: Reports anxiety, depression. Taking trazodone for sleep. ?? Breast Cancer History: Diagnosis: -??29 yo self-palpated a mass under the right nipple when she noticed it had inverted at the end 2020.?? -??[place] [facility] [place]2 + right invasive carcinoma with ductal [...] cryopreservation - 08/14/2020 goserelin dose #1 at [place] - 08/17/2020 cycle 1 neoadjuvant TCHP - 09/06/2020 cycle 2 TCHP - 2020 cycle 3 TCHP - 10/18/2020 cycle 4 TCHP - 11/08/2020 cycle 5 TCHP - 11/29/2020 cycle 6 TCHP, dose-reduced carbo/taxol - mastectomy + SLNB: 13 cm tumor bed w/ scattered foci of invasive disease, +LVI, 1 node with microscopic disease - Consented to [place] trial evaluating axillary dissection vs RT and randomized to dissection: 0/13 nodes positive. - Not eligible for adjuvant tucatinib trial due to participation in the [place] axillary management trial. - TDM-1 q3 wks x 14 cycles planned as per [...] boosting mastectomy scar to 60 Gy/30 fxs.??3D xrt??used.? RFs: Menses started age 14. No menses while on Depo provera. ?? PMH: Patient Active Problem List Diagnosis Code ??? Malignant neoplasm of right breast in female, estrogen receptor positive C50.911, Z17.0 Anxiety ?? FH/Genetics: family history includes Breast Cancer (age of onset: 83) in her paternal grandmother; Ovarian Cancer (age of onset: 50) in her paternal aunt; Uterine Cancer (age of onset: 50) in her paternal aunt. ?? On??07/23/2020,??Alis??underwent genetic testing via [facility]'s Multi-Cancer Panel: - A pathogenic MUTYH??mutation was detected (only one copy), specifially??c.1187G>A (p.Uya543Uvg). - VUS was detected in the following??genes: Gene?Variant RET?c.2982A>C (p.Rhe847Pwc) SDHB ?c.482A>G (p.Mqu907Pzl) ?? SH: No smoking No current EtOH to [employer] occ on [employer] / unemployed No children - desires biological children in the future ?? Vitals: Last value Range last 8 hrs Temperature Temp: 36.7 ??C (98.1 ??F) Temp: -- Heart Rate Heart Rate: 82 Heart Rate: -- Blood Pressure BP: 125/81 BP: -- Respiratory Rate Resp: 17 Resp: -- SpO2 SpO2: 100 % SpO2: -- Physical Exam: Vitals reviewed. General: A&Ox3. Well-developed??and well-nourished.??No acute distress. Head:??Normocephalic, atraumatic. Eyes: EOMs intact. Conjunctiva pink. No scleral icterus. Chest: Port site (left) accessed. No tenderness. Pulmonary:??Breathing comfortably on room air. Extremities:??No LE edema. Right arm wrapped Neurological: Gait normal. No focal deficits noted. Skin: Warm??and dry.??No rashes??noted. Psychiatric: Affect is mood-congruent. Insight is good. Thought-content is normal, future-oriented.Good eye contact. ?? Results: Recent Results (from the past 72 hour(s)) Comprehensive metabolic panel (non-fasting) Result Value Ref Range Glucose Lvl 98 65 - 199 mg/dL BUN 11 8 - 18 mg/dL Creatinine 0.77 0.70 - 1.20 mg/dL Sodium 140 135 - 145 mmol/L Potassium 4.0 3.5 - 5.0 mmol/L Chloride 102 98 - 107 mmol/L CO2 26 22 - 31 mmol/L Anion Gap 12 5 - 15 mmol/L Calcium 9.7 8.5 - 10.5 mg/dL Total Protein 8.0 6.1 - 8.0 g/dL Albumin 4.2 3.2 - 5.2 g/dL AST 32 (H) 0 - 30 unit/L ALT 21 0 - 30 unit/L Alk Phos 74 35 - 105 unit/L Total Bilirubin 0.2 0.2 - 1.3 mg/dL Estimated GFR 105 >=60 mL/min/1.73 m?? Hemogram Result Value Ref Range WBC 7.1 4.0 - 9.5 x10(3)/mcL RBC 4.11 4.00 - 5.21 x10(6)/mcL Hemoglobin 12.8 11.7 - 15.5 g/dL Hematocrit 36.1 35.7 - 45.8 % MCV 87.8 82.6 - 94.4 fL MCH 31.1 27.1 - 32.0 pg MCHC 35.5 (H) 31.7 - 35.0 g/dL Platelets 163 145 - 357 x10(3)/mcL RDWSD 40.7 37.0 - 46.0 fL RDWCV 12.8 11.5 - 14.1 % MPV 8.9 7.6 - 12.9 fL nRBC % Auto 0.0 % nRBC Abs Auto 0.000 0.000 - 0.000 x10(3)/mcL Differential, Automated Result Value Ref Range Neutrophils % 61.9 % Neutr Abs (ANC) 4.40 1.70 - 6.10 x10(3)/mcL Lymphocytes % 25.1 % Lymphocytes Abs 1.8 0.9 - 3.2 x10(3)/mcL Monocytes % 10.5 % Monocyte Abs 0.8 0.3 - 0.9 x10(3)/mcL Eosinophils % 0.8 % Eosinophils Abs 0.1 0.0 - 0.4 x10(3)/mcL Basophils % 0.7 % Basophils Abs 0.0 0.0 - 0.1 x10(3)/mcL Immature Gran % 1.00 % Madalyn Gran Abs 0.07 (H) 0.00 - 0.04 x10(3)/mcL Assessment & Plan: Alis is a 30 y.o. premenopausal woman with a large, node+, ER/[place]+ HER2+ breast cancer, partial pathologic response to neoadjuvant TCHP??[[id number]], s/p??mastectomy/ALND, RT, and is now receiving adjuvant T- DM1 for residual disease per [place] trial showing improved outcomes compared to trastuzumab. She started tamoxifen on 06/18/21 and continues on ovarian suppression. ?? Alis is doing ok. She is compliant with all recommendations and we will continue to follow her closely. She may benefit from the Young Strong support group at [facility] for young breast cancer survivors. She is an excellent candidate for possible lymphatic transfer as suggested by Dr. Hunt. I will remind her of this at her next visit, but hopefully PT and massage will improve her function by then. ?? #Breast cancer ?? Continue with adjuvant T-DM1, to complete one year in Mar 2022. ?? Goserelin 10.8 mg q12 weeks, endocrine markers show effective suppression of ovarian function. ?? Continue tamoxifen Left mammo reviewed, and is benign. ?? #Treatment monitoring for toxicity ?? Laboratory results are within acceptable limits to proceed with treatment today. ?? Cardiovascular monitoring: TTE repeated 06/26/21 and stable ?? Mastectomy bra rx to [facility] in [place] ?? #Right wrist pain #Right UE lymphedema ?? Continue lymphedema PT specialist ?? Voltaren gel applied locally up to 4x daily ?? #Future childbearing ?? contraindicated during T-DM1 and for [...] surrogate vs adoption. ?? #Vasomotor symptoms ?? Stable on current regimen ?? She declines a brief break in tamoxifen for now ?? #Psychosocial Continue f/u and recommendations documented in this encounter Plan of Treatment Upcoming Encounters Date Type Department Care Team (Late st Contact Info) Description 02/13/2025 1:00 PM EDT Office Visit Radiation Oncology at [address] [phone] Eleonora Mensah MD [facility] [place] [address] documented as of this encounter Visit Diagnoses Diagnosis Malignant 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, estrogen receptor positive Lymphedema Other lymphedema documented in this encounter Care Teams Spudder Relationship Specialty Start Date End Date Charleen Williamson APRN [address] [place] [address] PCP - General Family Medicine 06/29/20 documented as of this encounter
--- OUTSIDE RECORDS SUMMARY | 2024-05-09 14:01 | XMS_ITS | Encounter Summary ---
Author Organization [facility] Address [facility] [place] [address] Care Team Providers Care Laborer Ammunition Assembly Name Role Phone Charleen Williamson APRN Primary Care Provider [phone] [phone] Reason for Visit * Treatment/Therapy Plan Authorization (Routine) - Closed Specialty Diagnoses / Procedures Referred By Contac t Referred To Contact Diagnoses 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, estrogen receptor positive Procedures INJ, ADO-TRASTUZUMAB EMT 1MG TC GOSERELIN ACETATE IMPLANT, 3.6MG (ZOLADEX) TC PALONOSETRON HCL, 25MCG, INJECTION (ALOXI) Tyra Cornejo MD [facility] [place] [address] [facility] Hem Onc Office [address] [place] [phone] Referral ID Status Reason Start Date Expiration Date Visits Re quested Visits Authorized [id number] Closed 03/01/2021 04/26/2022 99 99 Encounter Details Date Type Department Care Team (Latest Contact Info) Description 09/25/2021 8:40 AM EDT - 09/25/2021 11:59 PM EDT Hospital Encounter [place] [address] Malignant neoplasm of overlapping sites of right [...] NEEDED FOR ANXIETY 07/09/2020 venlafaxine XR (Effexor-XR) 37.5 mg Capsule, Sust. Release 24 hr Take 3 capsules by mouth daily. 90 capsule 3 09/25/2021 10/01/2021 lidocaine-prilocaine (EMLA) Cream APPLY A THINK LAYER [...] 06/18/2022 Miscellaneous Medical Supply Misc by [facility] [place].(Non-Drug; Combo Route) route. Remedy [...] Progress Notes * Eleonora Allen RN - 09/25/2021 5:04 PM EDT Patient Name: Alis Silva Patient Age: 30 y.o. Birthdate: 1990 Admit date: 09/25/2021 Attending Physician: No att. providers found Alis Silva, 30 y.o. female with diagnosis of breast cancer is here for chemotherapy infusion of Kadcyla and Zoladex injection. PROTOCOL: No CYCLE: 8 DAY: 1 S: Pt. offers no complaints [...] Encounters Date Type Department Care Team (Late Psychiatric hospital Info) Description 02/13/2025 1:00 PM EDT Office Visit Radiation Oncology at [address] [phone] Eleonora Mensah MD [facility] [place] [place] [address] documented as of this encounter Visit Diagnoses [...] 300 mg, Intravenous, ONCE, 1 dose, On Thu09/25/21 at 1530, Administer over 30 Minutes, Monitor patient for ado-trastuzumab emtansine infusion reactions 30 minutes after each subsequent dose if the first dose was well-tolerated. Dose Ordered = 303 mg (3.6 mg/kg). Pharmacist rounded dose per procedure., This agent is restricted to outpatient use. Is this drug being given as an outpatient? Yes New Bag 09/25/2021 4:06 PM EDT 300 mg 530 mL/hr dexamethasone (PF) (Decadron) (10 mg/mL) injection 10 mg 10 mg, Intravenous, ONCE, 1 dose, On Thu09/25/21 at 1445 Given 09/25/2021 3:44 PM EDT 10 mg goserelin (ZOLADEX) implant 10.8 mg 10.8 mg, Subcutaneous, ONCE, 1 dose, On Thu09/25/21 at 1430, Routine, This agent is restricted to outpatient use. Is this drug being given as an outpatient? Yes Given 09/25/2021 4:51 PM EDT 10.8 mg Left Lower Quadrant heparin (pf) (porcine) (100 units/mL) flush 5 mL syringe 500 Units 500 Units, Intravenous, ONCE PRN, Starting on Thu09/25/21 at 1408, Until Alannah 09/26/21 at 0434, Line Care, Refer to Intravenous (IV) Procedure: Accessing Implanted Vascular Access Devices (374) procedure and/or Intravenous (IV) Job Aid: Adult Flushing & Catheter Care (4795) job aid for additional information regarding guidelines and administration., Routine Given 09/25/2021 4:42 PM EDT 500 Units palonosetron (Aloxi) (0.05 mg/mL) injection 0.25 mg 0.25 mg, Intravenous, ONCE, 1 dose, On Thu09/25/21 at 1445, Routine Given 09/25/2021 3:43 PM EDT 0.25 mg sodium chloride 0.9 % (flush) (BD PosiFlush Normal Saline 0.9) flush 5-20 mL 5-20 mL, Intravenous, EVERY 1 MIN PRN, Starting on Thu09/25/21 at 1408, Until Alannah 09/26/21 at 0434, Line Care, Flush pertains to all indwelling lines. Flush per protocol found in the job aid using the link provided on this medication record. Refer to Intravenous (IV) Job Aid: Adult Flushing & Catheter Care (3623) job aid for additional information regarding guidelines and administration., Routine Given 09/25/2021 4:42 PM EDT 20 mLs documented in this encounter Care Teams Laborer Ammunition Assembly Relationship Specialty Start Date End Date Charleen Williamson APRN [address] [place] [address] PCP - General Family Medicine 06/29/20 documented as of this encounter
--- OUTSIDE RECORDS SUMMARY | 2024-05-09 14:01 | XMS_ITS | Encounter Summary ---
Author Organization [facility] Address [facility] [place] [address] Care Team Providers Care Log Handling Equipment Operator Name Role Phone Charleen Williamson APRN Primary Care Provider [phone] [phone] Reason for Visit * Reason Comments Follow-up Encounter Details Date Type Department Care Team (Late st Contact Info) Description 09/25/2021 10:00 AM EDT Office Visit Hematology [place] [address] Tyra Cornejo MD [facility] [address] [place] [address] Malignant 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, estrogen receptor positive; Lymphedema of arm Social History Tobacco Use [...] Sign Reading Time Taken Comments Blood Pressure 122/84 09/25/2021 9:44 AM EDT Pulse 79 09/25/2021 9:44 AM EDT Temperature 36.5 ??C (97.7 ??F) 09/25/2021 9:44 AM ED T Respiratory Rate 17 09/25/2021 9:44 AM EDT Oxygen Saturation 99% 09/25/2021 9:44 AM EDT Inhaled Oxygen Concentration - - Weight 81 kg (178 lb 9.6 oz) 09/25/2021 9:44 AM EDT Height 175.2 cm (5' 8.98) 09/25/2021 9:44 AM ED T Body Mass Index 26.39 09/25/2021 9:44 AM EDT documented in this encounter Progress Notes * Tyra Cornejo MD - 09/25/2021 10:00 AM EDT [facility] Breast Oncology Clinic: Follow-up Visit ?? Identification:??31 y.o.??female with locally advanced right breast cancer; s/p neoadjuvant chemotherapy with TCHP, R mastectomy/ALND; currently on adjuvant T- DM1 for residual disease. ? Interim History:??Alis??presents today for 3-week follow-up on adjuvant T-DM1, cycle 8; ?? Alis is doing ok. She has seen PT and a wrap was placed while she gets fitted for a sleeve. Hoping to get the sleeve in the next few weeks, as she needs it to go back to work. ?? She remains quite fatigued, mood is stable overall but Elmer reports an episode once [place] had a knife in her hand and made a comment about self-harm. She has been working with Sonam Yancey on depression and has started effexor but doesn't feel like it's helping at all yet. She has persistent hot flashes, night sweats and depression symptoms. She does not feel they are significantly worse, and denies suicidal ideation, but is not feeling much better. She has f/u with Sonam on 10/01. Also notes mid-back pain x 3 wks, has worked with a chiropractor for that in the past. Joint pain is stable. Review of Systems: General: Denies fevers,??chills,??appetite changes. Skin: Denies rashes, new skin lesions. [...] June 2020. Currently receiving goserelin, last dose 07/16. No vaginal bleeding. Denies vaginal dryness or [...] inverted at the end 2020.?? -??Dx 06/29/20 [facility] [place]+ HER2 + right invasive carcinoma with ductal [...] cryopreservation - 08/14/2020 goserelin dose #1 at [place] - 08/17/2020 cycle 1 neoadjuvant TCHP - 09/06/2020 cycle 2 TCHP - 2020 cycle 3 TCHP - 10/18/2020 cycle 4 TCHP - 11/08/2020 cycle 5 TCHP - 11/29/2020 cycle 6 TCHP, dose-reduced carbo/taxol - mastectomy + SLNB: 13 cm tumor bed w/ scattered foci of invasive disease, +LVI, 1 node with microscopic disease - Consented to [place] trial evaluating axillary dissection vs RT and randomized to dissection: 0/13 nodes positive. - Not eligible for adjuvant tucatinib trial due to participation in the [place] axillary management trial. - TDM-1??q3 wks x [...] paternal aunt. ?? On??07/23/2020,??Alis??underwent genetic testing via [facility] Multi-Cancer Panel: - A pathogenic MUTYH??mutation was detected (only one copy), specifially??c.1187G>A (p.Lhn979Zow). - VUS was detected in the following??genes: Gene?Variant RET?c.2982A>C (p.Lki782Vvw) SDHB ?c.482A>G (p.Tzh894Eba) ?? SH: No smoking No current EtOH to [employer] [facility] on [employer] / unemployed No children - desires biological [...] No tenderness. Pulmonary:??Breathing comfortably on room air. Extremities:??No??LE??edema.??Right arm wrapped Musculoskeletal : tenderness directly over spine focally in mid-thoracic spine, between scapula, nomuscle tenderness, weakness, numbness or tingling. Neurological: Gait normal. No focal deficits noted. Skin: Warm??and dry.??No rashes??noted. Psychiatric: Affect is mood-congruent. Insight is good. Thought-content is normal, future-oriented.Good eye contact. ?? Results: Labs reviewed, meet parameters for treatment today Assessment & Plan:??Alis??is a 31 y.o.??premenopausal??woman with a large, node+, ER/[place]+ HER2+ breast cancer, partial pathologic response to neoadjuvant TCHP??[[id number]], s/p??mastectomy/ALND, RT, and is now receiving adjuvant T- DM1 for residual disease per [place] trial showing improved outcomes compared to trastuzumab. She started tamoxifen on 06/18/21 and continues on ovarian suppression.? Alis is doing ok. We discussed her depression symptoms and I contacted Sonam Yancey who agrees with an increase in effexor to 112.5 mg daily. ?? Mid-back pain: proceed with chiropractor f/u appt as planned, if no improvement, consider further work up. We will help as we can to get her back to work after she has her sleeve. She is an excellent candidate for possible lymphatic transfer as suggested by Dr. Hunt. I will remind her of this at her next visit, but hopefully PT and massage will improve her function by then. ?? #Breast cancer ?? Continue with adjuvant T-DM1,??to complete one year in Mar 2022. ?? Goserelin 10.8 mg q12 weeks, endocrine markers show effective suppression of ovarian function. ?? Continue tamoxifen ?? #Treatment monitoring for toxicity ?? Laboratory results are within acceptable limits to proceed with treatment today. ?? Cardiovascular monitoring: TTE repeated 06/26/21 and stable ?? #Right wrist pain #Right UE lymphedema [...] ?? Unchanged on current regimen, increase venlafaxine to 112.5 mg daily, f/u with Sonam Yancey APRN as planned. ?? She declines a brief break in tamoxifen for now ?? #Psychosocial Continue f/u and recommendations ? documented in this encounter Plan of Treatment Upcoming Encounters Date Type Department Care Team (Late st Contact Info) Description 02/13/2025 1:00 PM EDT Office Visit Radiation Oncology at [address] [phone] Eleonora Menash MD [facility] [place] [address] documented as of this encounter Visit Diagnoses Diagnosis Malignant 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, estrogen receptor positive Lymphedema of arm Other lymphedema documented in this encounter Care Teams Log Handling Equipment Operator Relationship Specialty Start Date End Date Charleen Williamson APRN [address] [place] [address] PCP - General Family Medicine 06/29/20 documented as of this encounter
--- OUTSIDE RECORDS SUMMARY | 2024-05-09 14:01 | XMS_ITS | Encounter Summary ---
Author Organization [facility] Address [facility] [place] [address] Care Team Providers Care Used Car Sales Supervisor Name Role Phone Charleen Williamson APRN Primary Care Provider [phone] Encounter Details Date Type Department Care Team (Late st Contact Info) Description 07/24/2021 Notes Only Care Management [place] [phone] Kenyetta Kohler, DONOR TECHNICIAN Social History Tobacco Use Types Packs/Day Years [...] as of this encounter Progress Notes * Kenyetta Kohler MSW - 07/24/2021 2:52 PM EDT I'm able to meet with pt, Alis, after her f/u with PAYTON Moffett. We review ongoing benefit from financial assistance, particularly with current high alexandre of gas. I'm able to provide [employer] card today, and I also mail Alis a [employer] card. Alis reports that [facility] does not accept [place] Medicaid for prosthesis. I explore options closer to Alis's home, and let her know that the [facility] is in the process of working to accept [place] Medicaid. She is also interested in local exercise program tailored to bc tx -- something like [facility] but again close to her home. I'm able to reach out to PALS director, and connect Alis with her to review option of remote PALS program. Finally, I provide information/application for [employer] per Alis's interest in peer connection. Per her request I f/u with Alis over [facility] portal with resources per above. Completed today: Brief assessment Community Resource documented in this encounter Plan of Treatment Upcoming Encounters Date Type Department Care Team (Late st Contact Info) Description 02/13/2025 1:00 PM EDT Office Visit Radiation Oncology at [address] [phone] Eleonora Mensah MD [facility] [place] [address] documented as of this encounter Visit Diagnoses Not on filedocumented in this encounter Care Teams Used Car Sales Supervisor Relationship Specialty Start Date End Date Charleen Williamson APRN [address] [place] [address] PCP - General Family Medicine 06/29/20 documented as of this encounter
--- OUTSIDE RECORDS SUMMARY | 2024-05-09 14:01 | XMS_ITS | Encounter Summary ---
Author Organization [facility] Address [facility] [place] [address] Care Team Providers Care Mattress Weaver Name Role Phone Charleen Williamson APRN Primary Care Provider [phone] Reason for Visit * Treatment/Therapy Plan Authorization (Routine) - Closed Specialty Diagnoses / Procedures Referred By Contac t Referred To Contact Diagnoses 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, estrogen receptor positive Procedures INJ, ADO-TRASTUZUMAB EMT 1MG TC GOSERELIN ACETATE IMPLANT, 3.6MG (ZOLADEX) TC PALONOSETRON HCL, 25MCG, INJECTION (ALOXI) Tyra Cornejo MD [facility] [place] [address] [facility] Hem Onc Office [address] [place] [phone] Referral ID Status Reason Start Date Expiration Date Visits Re quested Visits Authorized [id number] Closed 03/01/2021 04/26/2022 99 99 Encounter Details Date Type Department Care Team (Latest Contact Info) Description 09/04/2021 12:04 PM EDT - 09/04/2021 11:59 PM EDT Hospital Encounter Hematology [place] [address] Malignant neoplasm of overlapping sites of right [...] 04/18/2021 06/18/2022 Miscellaneous Medical Supply Misc by [facility].(Non-Drug; Combo Route) route. [...] Progress Notes * Thien Campoverde RN - 09/04/2021 12:22 PM EDT Access visit. See MAR and/or flowsheet. documented in this encounter Plan of Treatment Upcoming Encounters Date Type Department Care Team (Late st Contact Info) Description 02/13/2025 1:00 PM EDT Office Visit Radiation Oncology at [address] [address] Eleonora Mensah MD [facility] [place] [place] [address] documented as of this encounter Procedures Procedure Name Priority Date/Time Associated Diagnosis Comments HEMOGRAM STAT 09/04/2021 12:20 PM EDT 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, estrogen receptor positive DIFFERENTIAL, AUTOMATED STAT 09/04/2021 12:20 PM EDT 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, estrogen receptor positive HC ESTRADIOL, SERUM Routine 09/04/2021 1 2:20 PM EDT 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, estrogen receptor positive HC CBC,PLT & AUTO DIFF STAT 12:20 PM EDT 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, estrogen receptor positive HC FSH ASSAY, SERUM Routine 09/04/2021 1 2:20 PM EDT 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, estrogen receptor positive COMPREHENSIVE METABOLIC PANEL STAT 09/04/2021 12:20 PM EDT 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, estrogen receptor positive documented in this encounter Results * Differential, Automated (09/04/2021 12:20 PM EDT) Neutrophil % 60.3 % [facility] Neutrophil Absolute 4.20 1.70 - 6.10 x10(3)/[facility] Lymph % 25.5 % [facility] Lymphocytes Abs 1.8 0.9 - 3.2 x10(3)/[facility] Monocyte % 12.1 % [facility] Monocyte Abs 0.8 0.3 - 0.9 x10(3)/[facility] Eos % 0.9 % [facility] Eosinophils Abs 0.1 0.0 - 0.4 x10(3)/[facility] Basophil % 0.9 % [facility] Baso Absolute 0.1 0.0 - 0.1 x10(3)/[facility] Immature Gran % 0.30 % [facility] Comment: Immature granulocytes(IG's)percentage and absolute count will include metamyelocytes, myelocytes, and promyelocytes. Blood smears from CBCs yielding IG's will be scanned manually for concordance. If this scan disagrees with the automated IG or if promyelocytes are noted, a manual differential will be performed. Immature Gran Absolute 0.02 0.00 - 0.04 x10(3)/[facility] Blood 09/04/2021 12:2 0 PM EDT 09/04/2021 12:33 PM EDT Narrative Resulting Agency Comment Spec In Lab Tyra Cornejo MD HEMATOLOGY ORDERABL ES [facility] [place] [address] * Hemogram (09/04/2021 12:20 PM EDT) White Blood Cell 7.0 4.0 - 9.5 x10(3)/[facility] Red Blood Cell 4.27 4.00 - 5.21 x10(6)/[facility] Hemoglobin 13.0 11.7 - 15.5 g/dL [facility] Hematocrit 37.2 35.7 - 45.8 % [facility] Mean Cell Volume 87.1 82.6 - 94.4 fL [facility] Mean Cell Hemoglobin 30.4 27.1 - 32.0 pg [facility] Mean Cell Hemoglobin Concentration 34.9 31.7 - 35.0 g/dL [facility] Platelet 165 145 - 357 x10(3)/[facility] RDW Standard Deviation 40.0 37.0 - 46.0 [facility] RDW coefficient of variation 12.6 11.5 - 14.1 % [facility] Mean Platelet Volume 8.6 7.6 - 12.9 fL [facility] NRBC% auto 0.0 % [facility] NRBC Absolute 0.000 0.000 - 0.000 x10(3)/[facility] Blood 09/04/2021 12:2 0 PM EDT 09/04/2021 12:33 PM EDT Narrative Resulting Agency Comment Spec In Lab Tyra Cornejo MD HEMATOLOGY ORDERABL ES [facility] [place] [address] * (ABNORMAL) Comprehensive metabolic panel (non-fasting) (09/04/2021 12:20 PM EDT) Glucose 97 65 - 199 mg/dL [facility] Comment:Diabetes: >=200 mg/d L plus symptoms Blood Urea Nitrogen 12 8 - 18 mg/dL [facility] Creatinine 0.79 0.70 - 1.20 mg/dL [facility] Sodium 139 135 - 145 mmol/L [facility] Potassium 3.9 3.5 - 5.0 mmol/L [facility] Comment: Please note: ??Patients with WBC >100,000 may have falsely elevated Potassium levels. ??For accurate Potassium quantification in these patients send serum separator tube (gold top) for subsequent determinations. ??Contact the Clinical Chemistry Laboratory if there are any questions. Chloride 101 98 - 107 mmol/L [facility] Carbon Dioxide 26 22 - 31 mmol/L [facility] Anion Gap 12 5 - 15 mmol/L [facility] Calcium 9.8 8.5 - 10.5 mg/dL [facility] Protein, Total 8.3(H) 6.1 - 8.0 g/dL [facility] Albumin 4.2 3.2 - 5.2 g/dL [facility] Aspartate Aminotransferase 35(H) 0 - 30 unit/L [facility] Alanine Aminotransferase 23 0 - 30 unit/L [facility] Alkaline Phosphatase 71 35 - 105 unit/L [facility] Bilirubin, Total 0.3 0.2 - 1.3 mg/dL [facility] Est Glomerular Filtration Rate 102 >=60 mL/min/1. 73 m?? [facility] Comment: This patient? s estimated glomerular filtration rate (eGFR) is between 102 mL/min/1.73 m2 (patients with less muscle mass) and 118 mL/min/1.73 m2 (patients with more muscle mass) as determined by the CKD-EPI equation. Assessment of eGFR is not appropriate when creatinine concentrations are rapidly changing. For clinical decisions where creatinine clearance will affect therapy, a 24-hour urine creatinine clearance may be advised. Assignment of CKD stage 1 - 5 for patients with an eGFR near the transition point between stages may be based on clinical assessment of muscle mass and symptoms in addition to eGFR. Blood 09/04/2021 12:2 0 PM EDT 09/04/2021 12:33 PM EDT Narrative Resulting Agency Comment Spec In Lab yTra Cornejo MD CHEMISTRY ORDERABLE S Performing Organization Address [facility] Co de Phone Number [facility] [place] [address] * Follicle Stimulating Hormone (09/04/2021 12:20 PM EDT) Follicle Stimulating Hormone 2.8 mlU/ML [facility] Comment: Reference Ranges Male: ? 1.5-12.4 mIU/mL Female ?? Follicular: ?3.5-12.5 mIU/mL ?? Ovulation: ? 4.7-21.5 mIU/mL ?? Luteal: ?1.7-7.7 mIU/mL ?? Postmenopausal: ?25.8-134.8 mIU/mL Blood 09/04/2021 12:2 0 PM EDT 09/04/2021 12:33 PM EDT Narrative Resulting Agency Comment Spec In Lab Tyra Cornejo MD CHEMISTRY ORDERABLE S Performing Organization Address [facility] Co de Phone Number [facility] [place] [address] * Estradiol (09/04/2021 12:20 PM EDT) Estradiol <5 pg/mL [facility] Comment: Reference ranges: Males: Adult: ? 11 to 43 pg/mL Females: Non- females: ?Follicular: ??12-233 pg/mL ?Ovulation: ?? 41-398 pg/mL ?Luteal: ?22-341 pg/mL ?Postmenopausal: ?? <5 - 138 pg/mL females: ?1st trimester: ??154-3243 pg/mL ?2nd trimester: ??1561-93223 pg/mL ?3rd trimester: ??8525- >66185 pg/mL Blood 09/04/2021 12:2 0 PM EDT 09/04/2021 12:33 PM EDT Narrative Resulting Agency Comment Spec In Lab Tyra Cornejo MD CHEMISTRY ORDERABLE S [facility] [place] [address] documented in this encounter Visit Diagnoses Diagnosis [...] Intravenous, EVERY 1 MIN PRN, Starting on 09/04/21 at 1206, Until Alannah 09/05/21 at 0434, Line Care, Flush pertains to all indwelling lines. Flush per protocol found in the job aid using the link provided on this medication record. Refer to Intravenous (IV) Job Aid: Adult Flushing & Catheter Care (0501) job aid for additional information regarding guidelines and administration., Routine Given 09/04/2021 12:21 PM EDT 20 mLs documented in this encounter Care Teams Mattress Weaver Relationship Specialty Start Date End Date Charleen Williamson APRN [address] [place] [address] PCP - General Family Medicine 06/29/20 documented as of this encounter
--- OUTSIDE RECORDS SUMMARY | 2024-05-09 14:01 | XMS_ITS | Encounter Summary ---
[place] [address] Care Team Providers Care Tester Operator Helper Name Role Phone Charleen Williamson APRN Primary Care Provider [phone] Reason for Visit * Reason Comments Medication Refill Encounter Details Date Type Department Care Team (Late st Contact Info) Description 09/11/2021 Refill Hematology [place] [address] Barbara Cain PA Social History Tobacco Use Types Packs/Day [...] Telephone Encounter - Subha Holt RN - 09/11/2021 10:29 AM EDT Received request via surescripts for refill of lidocaine-prilocaine EMLA Cream. Per review of medical record, refill is appropriate. Last prescribed 07/19/20 Script prepared and sent to provider for review, signature and escribe. documented in this encounter Plan of Treatment Upcoming Encounters Date Type Department Care Team (Late st Contact Info) Description 02/13/2025 1:00 PM EDT Office Visit Radiation Oncology at [address] [address] Eleonora Mensah MD [facility] [place] [address] documented as of this encounter Visit Diagnoses Not on filedocumented in this encounter Care Teams Tester Operator Helper Relationship Specialty Start Date End Date Charleen Williamson APRN [address] [place] [address] PCP - General Family Medicine 06/29/20 documented as of this encounter
--- OUTSIDE RECORDS SUMMARY | 2024-05-09 14:01 | XMS_ITS | Encounter Summary ---
Author Organization [facility] [place] [address] Care Team Providers Care Entry Level Manager Name Role Phone Charleen Williamson APRN Primary Care Provider [phone] Reason for Visit * Consultation (Routine) - Closed Specialty Diagnoses / Procedures Referred By Contac t Referred To Contact Hematology and Oncology Diagnoses Malignant 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, estrogen receptor positive Adjustment disorder with mixed anxiety and depressed mood Barbara Cain PA [facility] [place] [address] [facility] [place] [address] [place] [address] Referral ID Status Reason Start Date Expiration Date V isits Requested Visits Authorized [id number] Closed Consult, Test & Treat 07/03/2021 07/03/2022 1 1 Encounter Details Date Type Department Care Team (Latest Contact Info) Description 08/13/2021 4:00 PM EDT TH Visit (TeleHealth) Hematology [place] [address] Mei Zamora Adjustment disorder with [...] encounter Progress Notes * Mei Zamora - 08/13/2021 4:00 PM EDT [facility] PSYCHO-ONCOLOGY EVALUATION N [facility] HEMATOLOGY AND ONCOLOGY AT [facility] [address] Dept: [phone] Loc: [phone] 08/13/2021 4:00 PM REFERRAL QUESTION: Adjustment to cancer dx and tx Alis Silva is a 30 y.o. female who was referred by PAYTON Knight to evaluate and make recommendations regarding the appropriateness of cognitive- behavioral treatment for coping with cancer diagnosis. Alis was seen for 45 minutes. she was alone, and was seen Telehealth. Alis Silva gave permission for and was seen for today's appointment with a Telehealth visit. During this visit they were located [place]. Alis Silva is aware that for any urgent matter they can call [phone]. Limits to confidentiality were reviewed at the start of the session. SUMMARY Alis was referred for an evaluation of her psychological functioning secondary to a diagnosis of breast cancer. Main concerns: anxiety regarding recurrence, depression, feeling overwhelmed, distress tolerance, unknowns about fertility, irritability. Social support: good for emotional support (e.g., listening, comforting) and good for task support (e.g., transportation, daily living care). Primary support: comes from friend(s), parent(s) and spouse. Health behaviors: are not problematic. Information preference: she is a moderate information seeker, and indicates that the doctors/nurses are communicating well. Alis would ask questions to the team. Potential barriers to treatment compliance: none reported TREATMENT PLAN AND RECOMMENDATIONS Reviewed with the short-term nature of embedded psychosocial care at the [facility]. Specifically, treatment typically lasts 6-8 sessions. If after a short-term course of treatment Alis would continue tobenefit from ongoing therapy, she will be referred out to a community provider. Alis Silva expressed an understanding to the above and has agreed to return in 3 Weeks to participate in individual therapy. Treatment will involve the following strategies: distress tolerance and interpersonal skills via DBT. DBT may be particularly beneficial for patient because it includes specific/concrete skills and techniques for the patient to implement, that may improve her ability to tolerate negative/unwanted emotions and communicate effectively. DIAGNOSIS Adjustment disorder with mixed anxiety and depressed mood The above assessment and plan was based on the following information obtained during the appointment: MAIN CONCERN TO PATIENT ?? Feeling overwhelmed and anxious regarding recurrence and unknowns about future ?? Irritability (especially towards her ) and distress tolerance HISTORY & IMPACT CANCER DIAGNOSIS/TREATMENT: ?? Self-identified lump on right breast May 2020 ?? Dx of ER/DE+ HER2 + invasive carcinoma. R ALN bx + metastatic carcinoma. 06/29/21 at [facility] ?? Oocyte harvesting and embryo cryopreservation 07/2021 ?? Chemotherapy beginning 08/14/20, radiation therapy completed 04/22/21??to 06/03/21 ?? 12/2020 mastectomy ?? Currently on adjunctive T-DM1 and tamoxifen SOCIAL HISTORY/CURRENT FUNCTIONING Household composition: patient and spouse Relationship status: . Quality of relationship: supportive Progeny: Children: 0 Grandchildren: N/A Quality of relationship with children: supportive. Occupation: unemployed due to physical limitations ([employer]) Leisure pursuits: Reading, going camping, playing with dogs/cats Daily pursuits: Caring for dogs/cats, walk on treadmill daily Continued engagement in important activities: No physical limitations (lymphadema, injury on hand, fatigue) that keep her from engaging in her typical activities FAMILY/SOCIAL HX OF CANCER ?? Paternal grandmother- breast cancer ?? Paternal aunt- ovarian and uterine CURRENT SOCIAL SUPPORT NETWORK Primary support comes from friend(s), parent(s) and spouse Quality of EMOTIONAL support: good Quality of TASK support: good Family's reaction to diagnosis/treatment: shocked COPING STYLE Alis uses the following methods to cope with difficult circumstances: Reading, playing with animals, watch TV BMED QUESTIONNAIRES No flowsheet data found. No flowsheet data found. Chronic Pain Grade ??? Grade 0 = No pain ??? Grade 1, low intensity, low interference = Usual Pain Intensity score of less than 5 AND 2-itemdisability score less than 9 ??? Grade 2, moderate intensity = Usual Pain Intensity score of 5 or greater AND 2-item disability score less than 9 ??? Grade 3, moderate interference = 2-item disability score of 9-12 ??? Grade 4, severe interference = 2-item disability score of 13-20 No flowsheet data found. PHQ-9 QUESTIONNAIRE (AMB) 04/23/2021 Little interest or pleasure (Clinic) Not at all Down, depressed, hopeless (Clinic) Not at all No flowsheet data found. Other anxiety symptoms: Panic attacks: occurring daily beforehand; but has not occured since she has been on medications ADDITIONAL PSYCHOSOCIAL CONCERNS History of trauma: denied Current stressors: family, financial, occupational and drug and alcohol. Overall, how would you rate your quality of life? good SURVIVORSHIP CONCERNS Fear of cancer recurrence: yes, one of my biggest fears currently Avoidance of cancer reminders (thoughts/places): denied MENTAL HEALTH HISTORY Prior diagnoses: denied Prior psychiatric hospitalizations: No Prior outpatient treatment: No Prior suicide attempts or self-harm: No Prior substance abuse treatment:No Current treatment (therapy, medication): FB group[facility]; zoloft; propranonlol; hydroxyzine; effexor MENTAL STATUS Appearance: within normal limits Behavior: within normal limits Speech: within normal limits Affect: mood congruent Suicidality/homicidality: no suicidal ideation, no homicidal ideation Thought content/ process: within normal limits and goal directed Cognitive function: While not formally tested, function appears to be [facility]HAVI[facility] ETOH: not since dx; Medicinal Marijuana: no Drugs: denied Nicotine: non-smoker Caffeine: 0 cups/day Exercise: walks on the treadmill daily for 45mins Sleep: Hours of sleep per night 8; occasional difficulty falling asleep and staying asleep (difficulty caused by anxiety) DETAIL OF INFORMATION PREFERENCE Alis is a moderate information seeker . Alis is receiving the right amount of information from the doctors and nurses. Alis indicates that the doctors/nurses are communicating well. Alis would ask questions to the team. The assessment and plan for Alis are detailed at the beginning of this report. * Lacy Barroso, PhD - 08/13/2021 4:00 PM EDT I have reviewed this note and agree with the diagnosis, plan and treatment Lacy Barroso, PhD documented in this encounter Plan of Treatment Upcoming Encounters Date Type Department Care Team (Late st Contact Info) Description 02/13/2025 1:00 PM EDT Office Visit Radiation Oncology at [address] [phone] Eleonora Mensah MD [facility] [address] Scheduled Referrals Name Type Priority Associated Diagnoses Order Schedule Referral to [facility] Psychiatry (Cancer Center Only) Outpatient Referral Routine Malignant 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, estrogen receptor positive Adjustment disorder with mixed anxiety and depressed mood Ordered: 07/03/2021 documented as of this encounter Visit Diagnoses Diagnosis Adjustment disorder with mixed anxiety and depressed mood documented in this encounter Care Teams Entry Level Manager Relationship Specialty Start Date End Date Charleen Williamson APRN [address] [place] [address] PCP - General Family Medicine 06/29/20 documented as of this encounter
--- OUTSIDE RECORDS SUMMARY | 2024-05-09 14:01 | XMS_ITS | Encounter Summary ---
Author Organization [facility] Address [facility] [place] [address] Care Team Providers Care Salt Maker Name Role Phone Charleen Williamson APRN Primary Care Provider [phone] Reason for Visit * Reason Comments Follow-up Encounter Details Date Type Department Care Team (Late st Contact Info) Description 08/15/2021 11:00 AM EDT Office Visit [place] [address] Eulalio Hunt MD [facility] [place] [address] Malignant neoplasm of central portion of right [...] as of this encounter Progress Notes * Eulalio Hunt MD - 08/15/2021 11:00 AM EDT Alis Silva is a 30-year-old woman who returns after neoadjuvant chemotherapy for [...] breast mass showed invasive carcinoma, ER positive, CO positive and HER-2 positive. MRI showed a [...] seen. She randomized on the alliance trial [id number] to the axillary dissection arm. Therefore on 01/28/2021I did a right axillary dissection. 0 of 13 nodes were positive. She was treated with adjuvant XRT in May 2021 and is now on TDM-1 because she did not achieve a CR with neoadjuvant chemo. She now returns for a check. She recently began to develop right arm edema and has an william wrap on and is planning to get a sleeve soon. On physical exam there are no right chest wall masses. No right axillary adenopathy. Full ROM rightarm. Arm is wrapped: I did not remove the wrapping. No left breast masses, no left axillary adenopathy. Left mammo from today looks benign to my eye. Impression: No evidence of local recurrence or left breast new primary cancer. New onset of right arm edema soon after XRT. I informed her that if the sleeve is not effective, she could see Dr Molina about lymph node transfer I will see her back in 1 year with a left mammo documented in this encounter Plan of Treatment Upcoming Encounters Date Type Department Care Team (Late st Contact Info) Description 02/13/2025 1:00 PM EDT Office Visit Radiation Oncology at [address] [phone] Eleonora Mensah MD [facility] [place] [address] documented as of this encounter Results * Mammo Screening Cad and Vijay Left (08/28/2022 9:54 AM EDT) Anatomical Region [...] questions please contact the health senior care provider that requested your imaging first. ? Eulalio Hunt MD IMG MAMMO ORDERABLES documented in this encounter Visit Diagnoses Diagnosis Malignant 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, estrogen receptor positive Malignant 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, estrogen receptor positive documented in this encounter Care Teams Salt Maker Relationship Specialty Start Date End Date Charleen Williamson, [employer] [address] [place] [address] PCP - General Family Medicine 06/29/20 documented as of this encounter
--- OUTSIDE RECORDS SUMMARY | 2024-05-09 14:01 | XMS_ITS | Encounter Summary ---
Author Organization [facility] Address [facility] [place] [address] Care Team Providers Care Media Marketing Director Name Role Phone Charleen Williamson APRN Primary Care Provider +1 [phone] Reason for Visit * Treatment/Therapy Plan Authorization (Routine) - Closed Specialty Diagnoses / Procedures Referred By Contac t Referred To Contact Diagnoses 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, estrogen receptor positive Procedures INJ, ADO-TRASTUZUMAB EMT 1MG TC GOSERELIN ACETATE IMPLANT, 3.6MG (ZOLADEX) TC PALONOSETRON HCL, 25MCG, INJECTION (ALOXI) Tyra Cornejo MD [facility] [address] [place] [address] [facility] Hem Onc Office [address] [place] [phone] Referral ID Status Reason Start Date Expiration Date Visits Re quested Visits Authorized [id number] Closed 03/01/2021 04/26/2022 99 99 Encounter Details Date Type Department Care Team (Latest Contact Info) Description 09/25/2021 8:39 AM EDT Hospital Encounter Hematology [place] [address] Malignant neoplasm of overlapping sites [...] EVERY 8 HOURS NEEDED FOR ANXIETY 07/09/2020 lidocaine-prilocaine (EMLA) Cream APPLY A THINK LAYER [...] 06/18/2022 Miscellaneous Medical Supply Misc by [facility] [...] Progress Notes * Hilda Marin RN - 09/25/2021 9:12 AM EDT Patient Name: Alis Silva Patient Age: 30 y.o. Birthdate: 1990 Admit date: 09/25/2021 Attending Physician: No att. providers found Access visit. See MAR and/or flowsheet. documented in this encounter Plan of Treatment Upcoming Encounters Date Type Department Care Team (Late st Contact Info) Description 02/13/2025 1:00 PM EDT Office Visit Radiation Oncology at [address] [phone] Eleonora Mensah MD [facility] [place] [address] documented as of this encounter Procedures Procedure Name Priority Date/Time Associated Diagnosis Comments HEMOGRAM STAT 09/25/2021 9:10 AM EDT 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, estrogen receptor positive DIFFERENTIAL, AUTOMATED STAT 09/25/2021 9:10 AM EDT 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, estrogen receptor positive HC ESTRADIOL, SERUM Routine 09/25/2021 9 :10 AM EDT 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, estrogen receptor positive HC CBC,PLT & AUTO DIFF STAT 9:10 AM EDT 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, estrogen receptor positive HC FSH ASSAY, SERUM Routine 09/25/2021 9 :10 AM EDT 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, estrogen receptor positive COMPREHENSIVE METABOLIC PANEL STAT 09/25/2021 9:10 AM EDT 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, estrogen receptor positive documented in this encounter Results * Differential, Automated (09/25/2021 9:10 AM EDT) Neutrophil % 60.2 % [facility] Neutrophil Absolute 3.78 1.70 - 6.10 x10(3)/[facility] Lymph % 27.5 % [facility] Lymphocytes Abs 1.7 0.9 - 3.2 x10(3)/[facility] Monocyte % 10.2 % [facility] Monocyte Abs 0.6 0.3 - 0.9 x10(3)/[facility] Eos % 1.1 % [facility] Eosinophils Abs 0.1 0.0 - 0.4 x10(3)/[facility] Basophil % 0.8 % [facility] Baso Absolute 0.0 0.0 - 0.1 x10(3)/[facility] Immature Gran % 0.20 % [facility] Comment: Immature granulocytes(IG's)percentage and absolute count will include metamyelocytes, myelocytes, and promyelocytes. Blood smears from CBCs yielding IG's will be scanned manually for concordance. If this scan disagrees with the automated IG or if promyelocytes are noted, a manual differential will be performed. Immature Gran Absolute 0.01 0.00 - 0.04 x10(3)/[facility] Blood 09/25/2021 9:10 AM EDT 09/25/2021 9:48 AM EDT Narrative Resulting Agency Comment Spec In Lab Barbara CAIN HEMATOLOGY ORDERABLE S [facility] [place] [address] * (ABNORMAL) Hemogram (09/25/2021 9:10 AM EDT) White Blood Cell 6.3 4.0 - 9.5 x10(3)/mc L [facility] Red Blood Cell 4.09 4.00 - 5.21 x10(6)/mc L [facility] Hemoglobin 12.5 11.7 - 15.5 g/dL [facility] Hematocrit 35.6(L) 35.7 - 45.8 % [facility] Mean Cell Volume 87.0 82.6 - 94.4 fL [facility] Mean Cell Hemoglobin 30.6 27.1 - 32.0 pg [facility] Mean Cell Hemoglobin Concentration 35.1(H) 31.7 - 35.0 g/dL [facility] Platelet 146 145 - 357 x10(3)/mc L [facility] RDW Standard Deviation 39.8 37.0 - 46.0 [facility] RDW coefficient of variation 12.5 11.5 - 14.1 % [facility] Mean Platelet Volume 9.0 7.6 - 12.9 [facility] NRBC% auto 0.0 % [facility] NRBC Absolute 0.000 0.000 - 0.000 x10(3)/mc L [facility] Blood 09/25/2021 9:10 AM EDT 09/25/2021 9:48 AM EDT Narrative Resulting Agency Comment Spec In Lab Barbara CAIN HEMATOLOGY ORDERABLE S [facility] [place] [address] * (ABNORMAL) Comprehensive metabolic panel (non-fasting) (09/25/2021 9:10 AM EDT) Glucose 137 65 - 199 mg/dL [facility] Comment:Diabetes: >=200 mg/d L plus symptoms Blood Urea Nitrogen 15 8 - 18 mg/dL [facility] Creatinine 0.80 0.70 - 1.20 mg/dL [facility] Sodium 141 135 - 145 mmol/L [facility] Potassium 3.9 3.5 - 5.0 mmol/L [facility] Carbon Dioxide 28 22 - 31 mmol/L [facility] Anion Gap 10 5 - 15 mmol/L [facility] Calcium 9.4 8.5 - 10.5 mg/dL [facility] Protein, Total 7.9 6.1 - 8.0 g/dL [facility] Albumin 4.0 3.2 - 5.2 g/dL [facility] Aspartate Aminotransferase 34(H) 0 - 30 unit/L [facility] Alanine Aminotransferase 21 0 - 30 unit/L [facility] Alkaline Phosphatase 68 35 - 105 unit/L [facility] Bilirubin, Total 0.2 0.2 - 1.3 mg/dL [facility] Est Glomerular Filtration Rate 100 >=60 mL/min/1. 73 m?? [facility] Comment: This patient? s estimated glomerular filtration rate (eGFR) is between 100 mL/min/1.73 m2 (patients with less muscle mass) and 116 mL/min/1.73 m2 (patients with more muscle mass) [...] and symptoms in addition to eGFR. Blood 09/25/2021 9:10 AM EDT 09/25/2021 9:48 AM EDT Narrative Resulting Agency Comment Spec In Lab Tyra Cornejo MD CHEMISTRY ORDERABLE S Performing Organization Address [facility] Co de Phone Number [facility] [address] * Follicle Stimulating Hormone (09/25/2021 9:10 AM EDT) Follicle Stimulating Hormone 2.2 mlU/ML [facility] Comment: Reference Ranges Male: ? 1.5-12.4 mIU/mL Female ?? Follicular: ?3.5-12.5 mIU/mL ?? Ovulation: ? 4.7-21.5 mIU/mL ?? Luteal: ?1.7-7.7 mIU/mL ?? Postmenopausal: ?25.8-134.8 mIU/mL Blood 09/25/2021 9:10 AM EDT 09/25/2021 9:48 AM EDT Narrative Resulting Agency Comment Spec In Lab Tyra Cornejo MD CHEMISTRY ORDERABLE S Performing Organization Address [facility] Co de Phone Number [facility] [place] [address] * Estradiol (09/25/2021 9:10 AM EDT) Estradiol <5 pg/mL [facility] Comment: Reference ranges: Males: Adult: ? 11 to 43 pg/mL Females: Non- females: ?Follicular: ??12-233 pg/mL ?Ovulation: ?? 41-398 pg/mL ?Luteal: ?22-341 pg/mL ?Postmenopausal: ?? <5 - 138 pg/mL females: ?1st trimester: ??154-3243 pg/mL ?2nd trimester: ??1561-84275 pg/mL ?3rd trimester: ??8525- >91493 pg/mL Blood 09/25/2021 9:10 AM EDT 09/25/2021 9:48 AM EDT Narrative Resulting Agency Comment Spec In Lab Tyra Cornejo MD CHEMISTRY ORDERABLE S [facility] [place] [address] documented in this encounter Visit Diagnoses Diagnosis [...] 1 MIN PRN, Starting on Thu09/25/21 at 0842, Until Alannah 09/26/21 at 0434, Line Care, Flush pertains to all indwelling lines. Flush per protocol found in the job aid using the link provided on this medication record. Refer to Intravenous (IV) Job Aid: Adult Flushing & Catheter Care (3690) job aid for additional information regarding guidelines and administration., Routine Given 09/25/2021 9:12 AM EDT 20 mLs documented in this encounter Care Teams Media Marketing Director Relationship Specialty Start Date End Date Charleen Williamson APRN [address] [place] [address] PCP - General Family Medicine 06/29/20 documented as of this encounter
--- OUTSIDE RECORDS SUMMARY | 2024-05-09 14:01 | XMS_ITS | Encounter Summary ---
Author Organization [facility] Address [facility] [place] [address] Care Team Providers Care Political Anthropologist Name Role Phone Charleen Williamson APRN Primary Care Provider [phone] [phone] Reason for Visit * Treatment/Therapy Plan Authorization (Routine) - Closed Specialty Diagnoses / Procedures Referred By Contac t Referred To Contact Diagnoses 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, estrogen receptor positive Procedures INJ, ADO-TRASTUZUMAB EMT 1MG TC GOSERELIN ACETATE IMPLANT, 3.6MG (ZOLADEX) TC PALONOSETRON HCL, 25MCG, INJECTION (ALOXI) Tyra Cornejo MD [facility] DR [place] [address] [facility] Hem Onc Office [address] [place] [phone] Referral ID Status Reason Start Date Expiration Date Visits Re quested Visits Authorized [id number] Closed 03/01/2021 04/26/2022 99 99 Encounter Details Date Type Department Care Team (Latest Contact Info) Description 08/14/2021 12:01 PM EDT - 08/14/2021 11:59 PM EDT Hospital Encounter Hematology [place] [address] Malignant neoplasm of overlapping sites of right [...] EVERY 8 HOURS NEEDED FOR ANXIETY 07/09/2020 gabapentin (Neurontin) 100 mg Capsule Take 1 [...] 04/18/2021 06/18/2022 [facility] [...] as of this encounter Progress Notes * Dalila Sotelo RN - 08/14/2021 4:45 PM EDT Patient Name: Alis Silva Patient Age: 30 y.o. Birthdate: 1990 Admit date: 08/14/2021 Attending Physician: No att. providers found Alis Silva, 30 y.o. female with diagnosis of Breast CA is here for chemotherapy infusion of Kadcyla . CYCLE: 6 DAY: 1 S: Pt. offers no complaints at this time. O: Chemotherapy orders independently verified for correct drug name, route and dosage per patient'sheight, weight and BSA by Dalila Sotelo RN and onsite pharmacist REACTIONS (DESCRIPTION, TIME, INTERVENTION AND EFFECTIVENESS) None A: Pt. Tolerated treatment well. Alis Silva confirms that all questions and issues have been addressed. P: Return to clinic as scheduled. Pt. chemo teaching instructions included: During clinic hours (8am-5pm Thursday-Thursday): pt. can call [phone] with questions or concerns. After clinic hours (5pm-8am Thursday-Thursday and weekends) pt can call [phone] and ask for the word processor operator/oncologist distribution engineer. Alis verbalized understanding of potential chemotherapy side effects and home care including but not limited to- handwashing to prevent infection, signs and symptoms of low blood counts (fever, fatigue, bleeding), to call with a fever of 100.4 or greater, any significant constipation/diarrhea, importance of nutrition and fluid intake (drinking at least 32-64 ounces of non-caffeinated beverages/d ay), mouth care. Alis verbalized understanding of how to take prescription medications given for home use after chemotherapy. documented in this encounter Plan of Treatment Upcoming Encounters Date Type Department Care Team (Late st Contact Info) Description 02/13/2025 1:00 PM EDT Office Visit Radiation Oncology at [address] [phone] Eleonora Mensah MD [facility] [place] [address] documented as of this encounter Results * (ABNORMAL) Comprehensive metabolic panel (non-fasting) (08/14/2021 12:10 PM EDT) Glucose 98 65 - 199 mg/dL [facility] Comment:Diabetes: >=200 mg/d L plus symptoms Blood Urea Nitrogen 11 8 - 18 mg/dL [facility] Creatinine 0.77 0.70 - 1.20 mg/dL [facility] Sodium 140 135 - 145 mmol/L [facility] Potassium 4.0 3.5 - 5.0 mmol/L [facility] Comment: Please note: ??Patients with WBC >100,000 may have falsely elevated Potassium levels. ??For accurate Potassium quantification in these patients send serum separator tube (gold top) for subsequent determinations. ??Contact the Clinical Chemistry Laboratory if there are any questions. Chloride 102 98 - 107 mmol/L [facility] Carbon Dioxide 26 22 - 31 mmol/L [facility] Anion Gap 12 5 - 15 mmol/L [facility] Calcium 9.7 8.5 - 10.5 mg/dL [facility] Protein, Total 8.0 6.1 - 8.0 g/dL [facility] Albumin 4.2 3.2 - 5.2 g/dL [facility] Aspartate Aminotransferase 32(H) 0 - 30 unit/L [facility] Alanine Aminotransferase 21 0 - 30 unit/L [facility] Alkaline Phosphatase 74 35 - 105 unit/L [facility] Bilirubin, Total 0.2 0.2 - 1.3 mg/dL [facility] Est Glomerular Filtration Rate 105 >=60 mL/min/1. 73 m?? [facility] Comment: This patient? s estimated glomerular filtration rate (eGFR) is between 105 mL/min/1.73 m2 (patients with less muscle mass) and 122 mL/min/1.73 m2 (patients with more muscle mass) [...] and symptoms in addition to eGFR. Blood 08/14/2021 12:1 0 PM EDT 08/14/2021 12:37 PM EDT Narrative Resulting Agency Comment Spec In Lab Tyra Cornejo MD CHEMISTRY ORDERABLE S [facility] [place] [address] documented in this encounter Visit Diagnoses Diagnosis [...] 300 mg, Intravenous, ONCE, 1 dose, On Thu08/14/21 at 1530, Administer over 30 Minutes, Monitor patient for ado-trastuzumab emtansine infusion reactions 30 minutes after each subsequent dose if the first dose was well-tolerated. Dose Ordered = 303 mg (3.6 mg/kg). Pharmacist rounded dose per procedure., This agent is restricted to outpatient use. Is this drug being given as an outpatient? Yes New Bag 08/14/2021 3:43 PM EDT 300 mg 530 mL/hr dexamethasone (PF) (Decadron) (10 mg/mL) injection 10 mg 10 mg, Intravenous, ONCE, 1 dose, On Thu08/14/21 at 1430 Given 08/14/2021 3:11 PM EDT 10 mg heparin (pf) (porcine) (100 units/mL) flush 5 mL syringe 500 Units 500 Units, Intravenous, ONCE PRN, Starting on Thu08/14/21 at 1414, Until Alannah 08/15/21 at 0434, Line Care, Refer to Intravenous (IV) Procedure: Accessing Implanted Vascular Access Devices (654) procedure and/or Intravenous (IV) Job Aid: Adult Flushing & Catheter Care (3211) job aid for additional information regarding guidelines and administration., Routine Given 08/14/2021 4:17 PM EDT 500 Units palonosetron (Aloxi) (0.05 mg/mL) injection 0.25 mg 0.25 mg, Intravenous, ONCE, 1 dose, On Thu08/14/21 at 1430, Routine Given 08/14/2021 3:10 PM EDT 0.25 mg documented in this encounter Care Teams Political Anthropologist Relationship Specialty Start Date End Date Charleen Williamson APRN [address] [place] [address] PCP - General Family Medicine 06/29/20 documented as of this encounter
--- OUTSIDE RECORDS SUMMARY | 2024-05-09 14:01 | XMS_ITS | Encounter Summary ---
[place] [address] Care Team Providers Care Greens Or Grounds Superintendent Name Role Phone Charleen Williamson APRN Primary Care Provider [phone] [phone] Reason for Visit * Reason Onset Date Comments Medical Care Coordination 08/16/2021 Mastec jess bra Encounter Details Date Type Department Care Team (Late st Contact Info) Description 08/16/2021 Telephone Hematology [place] [address] Subha Holt, RN Medical Care Coordination (Mastectomy bra) Social History Tobacco Use Types Packs/Day Years [...] Telephone Encounter - Subha Holt RN - 08/16/2021 4:55 PM EDT Tyra Cornejo MD Sent: ThuAugust 16, 2021 ??4:32 PM To: P [facility] Hem Onc Breast Oncology Scheduling; Eulalio Hunt MD; P [facility] Hem Onc Triage Breast Karlene/ aspen --please schedule f/u with me in about 3 months Triage--can you help get a mastectomy bra order to the [facility] supplier in [place] ? [address] [place] [address] [phone] Post Right mastectomy bras ordered and pended to provider for signature. Order signed by provider and e-faxed to [phone]. 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
--- OUTSIDE RECORDS SUMMARY | 2024-05-09 14:01 | XMS_ITS | Encounter Summary ---
Author Organization [facility] Address [facility] [place] [address] Care Team Providers Care Core Stacker Name Role Phone Charleen Williamson APRN Primary Care Provider [phone] [phone] Encounter Details Date Type Department Care Team (Late st Contact Info) Description 09/17/2021 11:30 AM EDT TH Visit (TeleHealth) Hematology [place] [address] Jossy Yancey ELECTRICAL PROSPECTING OBSERVER [facility] [place] [address] Adjustment disorder with mixed anxiety and depressed mood (Primary Dx); Malignant neoplasm of overlapping sites [...] Progress Notes * Jossy Yancey APRN - 09/17/2021 11:30 AM EDT PSYCHIATRY CONSULTATION AT [facility] FOLLOW UP Time Spent: 30 minutes Location: Alis located in her home in [place] Attendee(s): Jossy Snell APRN HISTORY Patient Identification: [...] Complaint: I'm still really irritable. HPI: () Has tapered off of Zoloft and admits to feeling irritable, angry. Started Effexor 37.5 mg last weekand 75 mg today. We plan to continue 75 mg for next two weeks and will check in thereafter. Hot flashes extreme when hot outside. Had been sleeping 9pm -7 am but states since coming off Zoloft it's been hard to sleep when tapering and felt like she's activated at night Minimal 'fun' activities but planning on getting take out for birthday. Hopes to meet with Mei for therapy in near future. Pertinent Medication Side Effects: Gabapentin I felt [...] Outpatient Medications Medication Sig Dispense Refill ??? lidocaine-prilocaine (EMLA) Cream APPLY A THINK LAYER OF CREAM TO DESIGNATED SITE OF INTACT SKIN 60 MINUTES PRIOR TO ACCESING PORT. COVER SITE WITH OCCLUSIVE DRESSING. 30 g 1 ??? RX ADULT COMPOUNDED MEDICATION After cleansing, apply topically to the fissure twice daily for four weeks. 1 each 0 ??? lidocaine (Xylocaine) 2 % jelly Apply topically to anal fissure as needed for pain relief. Do not use more than 30 mL in a 24-hr period. 30 mL 2 ??? venlafaxine XR (Effexor-XR) 37.5 mg Capsule, Sust. Release 24 hr Take 1 capsule by mouth daily.After 5 doses, increase to two capsules (begin this medicine after stopping Zoloft as directed) (Patient not taking: Reported on 09/04/2021) 30 capsule 0 ??? gabapentin (Neurontin) 100 mg Capsule Take 1 capsule by mouth 2 times daily. (Patient not taking: Reported on 09/04/2021) 60 capsule 0 ??? diclofenac (Voltaren) 1 [...] attempts ?? DEVELOPMENTAL/PSYCHOSOCIAL HISTORY: Currently lives in [place], [place] with her Elmer Relationship status: . [...] ?? 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 Trauma/Abuse History: not reviewed EXAM Constitutional [...] & Affect: Mood is okay. Affect is blunted ? Orientation: to person, place, time and situation ? Attention/Concentration: grossly intact ? Memory: grossly intact ? Language: normal ? Fund of Knowledge: account retention representative of education level MEDICAL DECISION MAKING ; ASSESSMENT: Alis Silva is a 30 y.o. Female with symptoms of MDD and anxiety, both likely exacerbated by ovarian suppression. We have successfully tapered off Zoloft and started Venlafaxine 75 mg this week. We will continue on this dose with plan to increase if necessary after our next meeting. SI/HI denied. RECOMMENDATIONS/PLAN ?? Safety: SI/HI denied; reviewed office and emergency contact info. Crisis line is [phone] ?? Medications: Effexor 75 mg with plan to increase to 112.5 mg (max dose 225 mg) ?? Additional treatment recommendations: continued therapy with [...] further on this case. Jossy Yancey APRN 09/17/2021 documented in this encounter Plan of Treatment Upcoming Encounters Date Type Department Care Team (Late st Contact Info) Description 02/13/2025 1:00 PM EDT Office Visit Radiation Oncology at [address] [phone] Eleonora Mensah MD [facility] [place] [address] documented as of this encounter Visit Diagnoses Diagnosis Adjustment disorder with mixed anxiety and depressed mood- Primary 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, estrogen receptor positive documented in this encounter Care Teams Core Stacker Relationship Specialty Start Date End Date Charleen Williamson APRN [address] [place] [address] PCP - General Family Medicine 06/29/20 documented as of this encounter
--- OUTSIDE RECORDS SUMMARY | 2024-05-09 14:01 | XMS_ITS | Encounter Summary ---
Author Organization [facility] Address [facility] [place] [address] Care Team Providers Care Publications Distribution Clerk Name Role Phone Charleen Williamson APRN Primary Care Provider [phone] [phone] Encounter Details Date Type Department Care Team (Latest Contact Info) Description 08/16/2021 2:58 PM EDT - 08/16/2021 11:59 PM EDT Hospital [place] [address] Reema Florence MD [facility] [place] [address] Abnormal finding on breast imaging Discharge Disposition: Home Social History Tobacco Use [...] EDT Office Visit Radiation Oncology at [address] [address] Eleonora Mensah MD [facility] [place] [address] documented as of this encounter Procedures Procedure Name Priority Date/Time Associated Diagnosis Comments MAMMO CALL BACK DIAGNOSTIC PADMAJA WITHOUT CAD LEFT Routine 08/16/2021 3:20 PM EDT Abnormal finding on breast imaging documented in this encounter Results * Mammo Call Back Diagnostic Padmaja Without Cad Left (08/16/2021 3:20 PM EDT) Anatomical Region Laterality Modality Breast Left Mammography Impressions 08/16/2021 3:31 PM EDT No mammographic evidence of malignancy. Recommendation: High risk screening. BI-RADS Category 1: Negative Thank you for letting us participate in the care of this patient. ??If you are a health care provider and have any questions regarding this report, please contact the number below. ??For patients who have questions please contact the health health care manager that requested your imaging first. ? Electronically signed by: Danni Osuna MD, [facility] ([phone]), at 08/16/2021 3:31 PM Narrative 08/16/2021 3:31 PM EDT EXAMINATION: MAMMO CALL BACK DIAGNOSTIC PADMAJA WITHOUT CAD LEFT CLINICAL HISTORY: Abnormal finding on breast imaging TECHNIQUE: True lateral, spot compression CC and spot compression MLO views were obtained of the left breast. 2-D direct digital capture, 3-D tomosynthesis and computer aided detection (CAD) were used.. COMPARISON: This study was compared with prior images. FINDINGS: There are no suspicious masses, suspicious microcalcifications, or areas of architectural distortion. Specifically the questioned asymmetry represents overlapping fibroglandular tissue. Reema Florence MD IMG MAMMO ORDERABL ES documented in this encounter Visit Diagnoses Diagnosis Abnormal finding on breast imaging Other (abnormal) findings on radiological examination of breast documented in this encounter Care Teams Publications Distribution Clerk Relationship Specialty Start Date End Date Charleen Williamson, [employer] IN[employer] [address] [place] [address] PCP - General Family Medicine 06/29/20 documented as of this encounter
--- OUTSIDE RECORDS SUMMARY | 2024-05-09 14:01 | XMS_ITS | Encounter Summary ---
Author Organization [facility] Address [facility] [place] [address] Care Team Providers Care Front Desk Admin Name Role Phone Charleen Williamson APRN Primary Care Provider [phone] [phone] Reason for Visit * Treatment/Therapy Plan Authorization (Routine) - Closed Specialty Diagnoses / Procedures Referred By Contac t Referred To Contact Diagnoses 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, estrogen receptor positive Procedures INJ, ADO-TRASTUZUMAB EMT 1MG TC GOSERELIN ACETATE IMPLANT, 3.6MG (ZOLADEX) TC PALONOSETRON HCL, 25MCG, INJECTION (ALOXI) Tyra Cornejo MD [facility] [place] [address] [facility] Hem Onc Office [address] [place] [id number] Referral ID Status Reason Start Date Expiration Date Visits Re quested Visits Authorized [id number] Closed 03/01/2021 04/26/2022 99 99 Encounter Details Date Type Department Care Team (Latest Contact Info) Description 08/14/2021 12:00 PM EDT Hospital Encounter Hematology [place] [address] Malignant neoplasm of overlapping sites [...] 04/18/2021 06/18/2022 Miscellaneous Medical Supply Misc by [facility] [place]Non-Drug; Combo Route) route. [...] as of this encounter Progress Notes * Michaela Mcleod RN - 08/14/2021 12:14 PM EDT Patient Name: Alis Silva Patient Age: 30 y.o. Birthdate: 1990 Admit date: 08/14/2021 Attending Physician: No att. providers found Access visit. See MAR and/or flowsheet. documented in this encounter Plan of Treatment Upcoming Encounters Date Type Department Care Team (Late st Contact Info) Description 02/13/2025 1:00 PM EDT Office Visit Radiation Oncology at [address] [phone] Eleonora Mensah MD [facility] [place] [address] documented as of this encounter Procedures Procedure Name Priority Date/Time Associated Diagnosis Comments HEMOGRAM STAT 08/14/2021 12:10 PM EDT 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, estrogen receptor positive DIFFERENTIAL, AUTOMATED STAT 08/14/2021 12:10 PM EDT 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 Neutrophil Absolute 4.40 1.70 - 6.10 x10(3)/[facility] Lymph % 25.1 % [facility] Lymphocytes Abs 1.8 0.9 - 3.2 x10(3)/[facility] Monocyte % 10.5 % [facility] Monocyte Abs 0.8 0.3 - 0.9 x10(3)/[facility] Eos % 0.8 % [facility] Eosinophils Abs 0.1 0.0 - 0.4 x10(3)/[facility] Basophil % 0.7 % [facility] Baso Absolute 0.0 0.0 - 0.1 x10(3)/[facility] Immature Gran % 1.00 % [facility] Comment: Immature granulocytes(IG's)percentage and absolute count will include metamyelocytes, myelocytes, and promyelocytes. Blood smears from CBCs yielding IG's will be scanned manually for concordance. If this scan disagrees with the automated IG or if promyelocytes are noted, a manual differential will be performed. Immature Gran Absolute 0.07(H) 0.00 - 0.04 x10(3)/[facility] Blood 08/14/2021 12:1 0 PM EDT 08/14/2021 12:37 PM EDT Narrative Resulting Agency Comment Spec In Lab Tyra Cornejo MD HEMATOLOGY ORDERABL ES [facility] [place] [address] * (ABNORMAL) Hemogram (08/14/2021 12:10 PM EDT) Pathologist [facility] White Blood Cell 7.1 4.0 - 9.5 x10(3)/[facility] Red Blood Cell 4.11 4.00 - 5.21 x10(6)/mc L [facility] Hemoglobin 12.8 11.7 - 15.5 g/dL [facility] Hematocrit 36.1 35.7 - 45.8 % [facility] Mean Cell Volume 87.8 82.6 - 94.4 fL [facility] Mean Cell Hemoglobin 31.1 27.1 - 32.0 pg [facility] Mean Cell Hemoglobin Concentration 35.5(H) 31.7 - 35.0 g/dL [facility] Platelet 163 145 - 357 x10(3)/mc L [facility] RDW Standard Deviation 40.7 37.0 - 46.0 fL [facility] RDW coefficient of variation 12.8 11.5 - 14.1 % [facility] Mean Platelet Volume 8.9 7.6 - 12.9 fL [facility] NRBC% auto 0.0 % [facility] NRBC Absolute 0.000 0.000 - 0.000 x10(3)/mc L [facility] Blood 08/14/2021 12:1 0 PM EDT 08/14/2021 12:37 PM EDT Narrative Resulting Agency Comment Spec In Lab Tyra Cornejo MD HEMATOLOGY ORDERABL ES [facility] [place] [address] * (ABNORMAL) Comprehensive metabolic panel (non-fasting) (08/14/2021 12:10 PM EDT) Glucose 98 65 - 199 mg/dL [facility] Comment:Diabetes: >=200 mg/d L plus symptoms Blood Urea Nitrogen 11 8 - 18 mg/dL [facility] Creatinine 0.77 0.70 - 1.20 mg/dL [facility] Sodium 140 135 - 145 mmol/L [facility] Potassium 4.0 3.5 - 5.0 mmol/L [facility] Comment: Please note: ??Patients with WBC >100,000 may have falsely elevated Potassium levels. ??For accurate Potassium quantification in these patients send serum separator tube (gold top) for subsequent determinations. ??Contact the Clinical Chemistry Laboratory if there are any questions. Chloride 102 98 - 107 mmol/L [facility] Carbon Dioxide 26 22 - 31 mmol/L [facility] Anion Gap 12 5 - 15 mmol/L [facility] Calcium 9.7 8.5 - 10.5 mg/dL [facility] Protein, Total 8.0 6.1 - 8.0 g/dL [facility] Albumin 4.2 3.2 - 5.2 g/dL [facility] Aspartate Aminotransferase 32(H) 0 - 30 unit/L [facility] Alanine Aminotransferase 21 0 - 30 unit/L [facility] Alkaline Phosphatase 74 35 - 105 unit/L [facility] Bilirubin, Total 0.2 0.2 - 1.3 mg/dL [facility] Est Glomerular Filtration Rate 105 >=60 mL/min/1. 73 m?? [facility] Comment: This patient? s estimated [...] Lab Tyra Cornejo MD CHEMISTRY ORDERABLE S [facility] [place] [address] documented in this encounter Visit Diagnoses Diagnosis [...] Intravenous, EVERY 1 MIN PRN, Starting on 08/14/21 at 1201, Until Alannah 08/15/21 at 0434, Line Care, Flush pertains to all indwelling lines. Flush per protocol found in the job aid using the link provided on this medication record. Refer to Intravenous (IV) Job Aid: Adult Flushing & Catheter Care (4398) job aid for additional information regarding guidelines and administration., Routine Given 08/14/2021 12:13 PM EDT 20 mLs documented in this encounter Care Teams Front Desk Admin Relationship Specialty Start Date End Date Charleen Williamson APRN [address] [place] [address] PCP - General Family Medicine 06/29/20 documented as of this encounter
--- OUTSIDE RECORDS SUMMARY | 2024-05-09 14:01 | XMS_ITS | Encounter Summary ---
Author Organization [facility] Address [facility] [place] [address] Care Team Providers Care Manager Business Banking Name Role Phone Charleen Williamson APRN Primary Care Provider [phone] [phone] Encounter Details Date Type Department Care Team (Latest Contact Info) Description 08/15/2021 9:55 AM EDT - 08/15/2021 11:59 PM EDT Hospital Encounter Mammography/[place] [address] Eulalio Hunt MD [facility] [place] [address] Malignant neoplasm of central portion of right [...] PM EDT Office Visit Radiation Oncology at [address] [address] Eleonora Mensah MD [facility] [place] [address] documented as of this encounter Procedures Procedure Name Priority Date/Time Associated Diagnosis Comments MAMMO SCREENING CAD AND PADMAJA LEFT Routine 08/15/2021 10:08 AM EDT Malignant 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, estrogen receptor positive documented in this encounter Results * Mammo Screening Cad and Padmaja Left (08/15/2021 10:08 AM EDT) Anatomical Region Laterality Modality Breast Left Mammography Impressions 08/15/2021 11:42 AM EDT Focal asymmetry left breast for which additional imaging is recommended. The Breast Imaging Division will contact the patient to coordinate this follow-up. BI-RADS Category 0: Incomplete-Need Additional Imaging Evaluation and/or Prior Mammograms for Comparison * ??Regular screening mammograms starting between age 40 and 50 reduces the risk of from breast cancer. * ??All screening tests have both risks and benefits. These risks and benefits should be assessed for each individual patient through discussion with their provider to determine their preferred breast cancer screening schedule. * ??Women should report any breast changes to a health care provider right away. * ??Some women, because of their family history, a genetic tendency, or other factors, should be screened with annual breast MRI as well as with mammograms. (The number of women who fall into this category is very small). Patients and health care providers should discuss the history of each patient to decide if earlier screening and/or breast MRI are appropriate. * ??Screening should continue as long as a woman is in good health and is expected to live 10 years or longer. * ??Screening mammography may not detect 10-15% of breast cancers. Thank you for letting us participate in the care of this patient. ??If you are a health care provider and have any questions regarding this report, please contact the number below. ??For patients who have questions please contact the health weekend caregiver that requested your imaging first. ? Electronically signed by: Reema Florence MD, [facility] ([phone]), at 08/15/2021 11:42 AM Narrative 08/15/2021 11:42 AM EDT EXAMINATION: MAMMO SCREENING CAD AND PADMAJA LEFT CLINICAL HISTORY: s/p right mastectomy for cancer TECHNIQUE: CC and MLO views were obtained of the left breast. 2-D and 3- D tomosynthesis images were obtained. Computer aided detection was used. COMPARISON: 06/28/2020 FINDINGS: Breast density: The breasts are heterogeneously dense, which may obscure small masses Patient is status post right mastectomy. There is a 13 mm focal asymmetry in the upper outer left breast, 7.5 cm from the nipple. This may be related to superimposition or under compression, but additional imaging is recommended for further evaluation. No concerning microcalcifications are present. There is a biopsy clip in the central left breast noted. Eulalio Hunt MD IMG MAMMO ORDERABLES documented in this encounter Visit Diagnoses Diagnosis Malignant 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, estrogen receptor positive documented in this encounter Care Teams Manager Business Banking Relationship Specialty Start Date End Date Charleen Williamson, WATER PURIFICATION CHEMIST [address] [place] [address] PCP - General Family Medicine 06/29/20 documented as of this encounter
--- OUTSIDE RECORDS SUMMARY | 2024-05-09 14:01 | XMS_ITS | Encounter Summary ---
Author Organization [facility] Address [facility] [place] [address] Care Team Providers Care Power And Recovery Supervisor Name Role Phone Charleen Williamson APRN Primary Care Provider [phone] [phone] Encounter Details Date Type Department Care Team (Latest Contact Info) Description 08/13/2021 3:00 PM EDT TH Visit (TeleHealth) Hematology [place] [phone] Dafne Dykes, PhD [facility] [place] [address] Malignant 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, estrogen receptor positive; Cognitive changes; Fatigue, unspecified type; Adjustment disorder with mixed anxiety and depressed [...] Progress Notes * Dafne Dykes, PhD - 08/13/2021 3:00 PM EDT Neuropsychology Note. I spoke with Ms. Silva to review her neuropsychological screening results and recommendations. She demonstrated a good understanding of the information, and is in agreement with the plan for near-term follow-up in about three months. documented in this encounter Plan of Treatment Upcoming Encounters Date Type Department Care Team (Late st Contact Info) Description 02/13/2025 1:00 PM EDT Office Visit Radiation Oncology at [address] [address] Eleonora Mensah MD [facility] [place] [address] documented as of this encounter Visit Diagnoses Diagnosis Malignant 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, estrogen receptor positive Cognitive changes Other signs and symptoms involving cognition Fatigue, unspecified type Adjustment disorder with mixed anxiety and depressed mood documented in this encounter Care Teams Power And Recovery Supervisor Relationship Specialty Start Date End Date Charleen Williamson APRN [address] [place] [address] PCP - General Family Medicine 06/29/20 documented as of this encounter
--- OUTSIDE RECORDS SUMMARY | 2024-05-09 14:01 | XMS_ITS | Encounter Summary ---
Author Organization [facility] Address [facility] [place] [address] Care Team Providers Care Core Drill Operator Name Role Phone Charleen Williamson APRN Primary Care Provider [phone] [phone] Reason for Visit * Consultation (Urgent) - Closed Specialty Diagnoses / Procedures Referred By Contac t Referred To Contact Hematology and Oncology Diagnoses Malignant 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, estrogen receptor positive Adjustment disorder with mixed anxiety and depressed mood Barbara Cain PA [facility] [place] [address] [facility] [address] [place] [address] Referral ID Status Reason Start Date Expiration Date V isits Requested Visits Authorized [id number] Closed Consult, Test & Treat 07/24/2021 07/24/2022 1 1 Encounter Details Date Type Department Care Team (Late st Contact Info) Description 08/06/2021 2:00 PM EDT TH Visit (TeleHealth) [place] [address] Jossy Yancey APRN [facility] [place] [address] Adjustment disorder with mixed anxiety and depressed mood (Primary Dx); TALISHA (generalized anxiety disorder); Cognitive changes; Swelling of right hand; Malignant neoplasm of central portion of right [...] Progress Notes * Jossy Yancey APRN - 08/06/2021 2:00 PM EDT PSYCHIATRY CONSULTATION IN [facility]: INITIAL EVALUATION REFERRING PROVIDER: Barbara Cain Pa [facility] Hematology/[place] [address] LOCATION: N [facility] HEMATOLOGY AND ONCOLOGY AT [facility] [address] Dept: [phone] Loc: [phone] 08/06/2021 LENGTH OF APPOINTMENT: 60 minutes PATIENT IDENTIFICATION: Alis Silva is a 30 y.o. female who presents at the request of Barbara Cain PA-C for evaluation of anxiety and depression. Patient has large, node+, ER/MS+ HER2+ breast cancer, partial pathologic response to neoadjuvant TCHP??[[id number]], s/p??mastectomy/ALND, RT. She started tamoxifen on 06/18/21 and is also on adjuvant T-DM1, (recently completed cycle 5) with Goserelin 10.8 mg q12 weeks (for ovarian suppression). CC: I think I have always had anxiety. HPI Alis Silva is a 30 y.o. female with current symptoms of anxiety and irritability; she has been on sertraline for over one year and is currently at 200 mg in conjunction with Trazodone 150 mg, Buspar 5 mg BID, and hydroxyzine 10 mg BID for her mental health. She states that sometimes reading or petting her cat can help decrease negative thoughts and anxiety. She reports that physically she has been struggling with vasomotor symptoms-hot flashes during day and when getting to bed/overnight Mild increase in anxiety with this but 'nothing too bad'. She also states that since starting Busparher sleep has been 'terrible' and she's been feeling more restless at night. Alis states that shedid have an appointment with a psychiatrist through her local health center ([facility]) though cancelled it due to psychiatry offered through the cancer center; I did encourage Alis mookule an intake there for half-way psychiatric needs as our relationship will be relatively short term. She will also be meeting with Dr. Dykes in regards to reported brain fog and decreased concentration. Alis states that looking back she feels like she's always had anxiety but never had significant 'reason' for it. She feels it's better controlled with sertraline but feels her mind wandering to 'dark places' at times and admits to irritability that is not always triggered (though tells me about her steroid- induced prasanna with anger/irritability that she struggled with after infusion), otherwise denying symptoms of prasanna. She states she has good support from and parents and currently lives at an apartment with her on his family's [employer]. 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 She admits to a l imited social network due to COVID. Alis's main concern is her irritability as well as recent onset of difficulty sleeping with addition of Buspar. PHQ9 Questionnaires Data (Clinic and Pt Entered): Today's value PHQ-9 QUESTIONNAIRE (AMB) 04/23/2021 Little interest or pleasure (Clinic) Not at all Down, depressed, hopeless (Clinic) Not at all GAD7 Questionnaires Data: last 4 values No flowsheet data found. PSYCHIATRIC ROS: Neurovegative symptoms Sleep:Hours of sleep per night - was sleeping well but then started Buspar and feels like it's harder to fall asleep, also harder to fall back asleep when up to pee. Feels like mind starts racing. More irritable Appetite: nauseous after infusions, eating otherwise 'normal'. Can't eat spicy or fried foods. Three meals daily Energy: I'd like to be working but my body says no. Will walk on treadmill, get dogs out for walks (11 year old dog and 5 month old puppy). Three cats. Exercise: treadmill walking-typically walks for 45 minute, 4% incline Concentration: fair Paranoia/Delusions: none Auditory/Visual Hallucinations: none Prasanna/Hypomania: none though felt manic-high energy but 'angry' after infusion (steroid-induced) Panic Attacks: no specific symptoms PTSD symptoms: none OCD symptoms: none PAST PSYCHIATRIC HISTORY: Hospitalizations: none Suicide attempts: borderline suicidal when I got my diagnosis-unsure of what changed her mind Counseling/Therapy: through PCP had a couple meetings with a therapist post-diagnosis Medication Trials: current zoloft - started 07/25/20 Propranolol Hydroxyzine buspar SUBSTANCE USE HISTORY: ETOH: None currently Drugs: none Nicotine: none Caffeine: Very minimal, doesn't like coffee FAMILY PSYCHIATRIC HISTORY: We never really talked about mental health growing up. No family history of suicide attempts DEVELOPMENTAL/PSYCHOSOCIAL HISTORY: Currently lives in [place], [place] with her Elmer Relationship status: . 4 years Quality of relationship: supportive Progeny: Children: 0 Grandchildren: 0 Occupation: not working now; on disability-RA, diabetes Leisure pursuits: TV, reading Daily pursuits: Walking, getting dogs out, reading Continued engagement in important activities: yes. since your diagnosis have you been able to remain involved in activities that are important to you? Level of education: Trauma/Abuse History: not reviewed ACTIVE PROBLEMS: Patient Active Problem List Diagnosis Code ??? Malignant neoplasm of right breast in female, estrogen receptor positive C50.911, Z17.0 CURRENT MEDICATIONS: Current Outpatient Medications on File Prior to Visit Medication Sig Dispense Refill ??? busPIRone (Buspar) 5 mg Tablet Take 5 mg by mouth 3 times daily. ??? diclofenac (Voltaren) 1 % Gel Apply [...] 3 ??? Miscellaneous Medical Supply Misc by [facility]Non-Drug; Combo Route) route. Remedy Phytoplex Moisturizer. Apply [...] facility-administered medications on file prior to visit. MEDICAL ROS: System Positive Psychiatric X (as per HPI) Constitutional fatigue Integumentary neg Eyes/Ears/Sinuses neg Cardiac neg Respiratory neg Gastrointestinal neg Genitourinary neg Vascular R arm lymphedema (painful, swollen) Musculoskeletal neg Neurologic neg Hematologic neg Endocrine neg Allergies Allergen Reactions ??? Tegaderm [Transparent Dressings] Use alcohol and betadine, no biopatch. USE DUODERM LABS: Lab Results Component Value Date WBC 7.4 07/24/2021 HGB 13.1 07/24/2021 HCT 38.0 07/24/2021 MCV 87.4 07/24/2021 PLATELET 209 07/24/2021 Lab Results Component Value Date NA 136 07/24/2021 K 3.9 07/24/2021 CL 100 07/24/2021 CO2 26 07/24/2021 BUN 16 07/24/2021 CREATININE 0.70 07/24/2021 GLUCOSE 85 07/24/2021 CALCIUM 10.0 07/24/2021 Lab Results Component Value Date ALT 20 07/24/2021 AST 28 07/24/2021 ALKPHOS 79 07/24/2021 BILITOT 0.3 07/24/2021 Lab Results Component Value Date TSH 1.80 07/24/2021 No results found for: [id number] No results found for: SFOLATE Vitals: No data found. NEURO EXAM: No muscle atrophy, tics, tremors, or abnormal movements.Normal.None. MENTAL STATUS EXAM Manner/Cooperation: Minimal. Orientation: person, place and time Appearance: Neat. Hygiene: Good. Eye Contact: WNL. Speech: Rate: slow Volume: WNL. Quality: WNL. Mood: Euthymic. Affect: Flat. Suicidally/homicidally: no suicidal ideation, no homicidal ideation Thought Process: Associations: Intact. Content: Logical Perception: Denied AH/VH Judgement: Fair. Insight: fair Recent and remote memory: Not formally tested, appeared intact based on interview Attention/Concentration: Alert PHQ9 Questionnaires Data (Clinic and Pt Entered): last 4 values of depression scores No flowsheet data found. No flowsheet data found. GAD7 Questionnaires Data: last 4 values of anxiety scores No flowsheet data found. Routine Suicide Risk Assessment: Patient denies suicidal and homicidal ideation. Protective factorsinclude: family and community support, engaged in medical and/or mental health care, effective coping skills and future orientation ASSESSMENT: 1. TALISHA 2. Adjustment disorder with mixed anxiety and depression Alis Silva is a 30 y.o. female with history of what appears to be TALISHA, exacerbated by her cancer diagnosis and multi-modal treatment. She is currently at maximum dose of Sertraline and Trazodone 150 mg; adding another serotonergic agent would cause concern for serotonin syndrome. Buspar may be contributing to restlessness overnight and increased irritability; we discuss discontinuing this and trying gabapentin, both for anxiety and mood as well as vasomotor symptoms. We will start at a low dose (100 mg BID) and check in via myDH in one week. Could increase thereafter but want to mitigate sedation as much as possible. Also recommend rescheduling psychiatry appointment at [facility] for longer term engagement. PLAN: ?? Safety: SI/HI denied; reviewed office and emergency contact info. Crisis line is [phone] ?? Labs: none needed at this time ?? Medications: ?? Discontinue Buspar 5 mg BID ?? Begin gabapentin 100 mg BID (AM, dinner) ?? Additional treatment recommendations: ?? Therapy: 08/07 initial appointment with Mei Zamora ?? FOLLOW-UP CARE: --Patient will follow up with this telegraphic typewriter installer on 08/20 at 1130 via video --Patient is aware they can call the office with questions or concerns --Patient is aware of emergency contact procedures Thank you for consulting me in the care of this patient. Please feel free to contact me with questions or to collaborate further on this case. Jossy Yancey APRN 08/06/21 documented in this encounter Plan of Treatment Upcoming Encounters Date Type Department Care Team (Late st Contact Info) Description 02/13/2025 1:00 PM EDT Office Visit Radiation Oncology at [address] [address] Eleonora Mensah MD [facility] [place] [address] documented as of this encounter Visit Diagnoses Diagnosis Adjustment disorder with mixed anxiety and depressed mood- Primary TALISHA (generalized anxiety disorder) Generalized anxiety disorder Cognitive changes Other signs and symptoms involving cognition Swelling of right hand Malignant 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, estrogen receptor positive documented in this encounter Care Teams Core Drill Operator Relationship Specialty Start Date End Date Charleen Williamson APRN [address] [place] [address] PCP - General Family Medicine 06/29/20 documented as of this encounter
--- OUTSIDE RECORDS SUMMARY | 2024-05-09 14:01 | XMS_ITS | Encounter Summary ---
[place] [address] Care Team Providers Care Revenue Cycle Consultant Name Role Phone Charleen Williamson APRN Primary Care Provider [phone] Encounter Details Date Type Department Care Team (Latest Contact Info) Description 09/10/2021 2:00 PM EDT TH Visit (TeleHealth) Hematology [place] [address] Mei Zamora Adjustment disorder with [...] encounter Progress Notes * Mei Zamora - 09/10/2021 2:00 PM EDT [facility] PSYCHO-ONCOLOGY FOLLOW-UP N [facility] HEMATOLOGY AND ONCOLOGY AT [facility] [address] Dept: [phone] Loc: [phone] 09/30/2021 8:13 AM Time spent: 45 minutes. Location: Telehealth. Alis Silva gave permission for and was seen for today's appointment with a Telehealth visit. During this visit they were located [place]. Alis Silva is aware that for any urgent matter they can call [phone]. Attendees: Patient SESSION #: 1 CHIEF COMPLAINT Adjustment to cancer dx and tx GOALS FOR THERAPY ??? Reduce anxiety, irritability and overwhelmed ??? Improve coping with uncertainty and fear of recurrence S/O Since the previous session, Alis Silva reported feeling overwhelmed and irritable. Today's session focused on identifying triggers for anxiety and irritability. Patient and therapist discussed areas in her life where she does and does not have control. Therapist discussed how attempting to control aspects of life makes things worse, and patient agreed. Therapist introduced worry time and discussed how this may help her let go of things she cannot control. A Diagnosis: Adjustment disorder with mixed anxiety and depressed mood Mental Status: No SI. Mental status WNL. Fully engaged in therapy process. P Between sessions, Alis practice worry time Follow-up appointment schedule for return in 2 Weeks. Alis Silva has my contact information and was encouraged to reach out to me in the future as needed. * Lacy Barroso, PhD - 09/10/2021 2:00 PM EDT I have reviewed this note and agree with the plan and treatment Lacy Barroso, PhD documented in this encounter Plan of Treatment Upcoming Encounters Date Type Department Care Team (Late st Contact Info) Description 02/13/2025 1:00 PM EDT Office Visit Radiation Oncology at [address] [phone] Eleonora Mensah MD [facility] DR RADIATION [facility]COLOGY [place] [address] documented as of this encounter Visit Diagnoses Diagnosis Adjustment disorder with mixed anxiety and depressed mood documented in this encounter Care Teams Revenue Cycle Consultant Relationship Specialty Start Date End Date Charleen Williamson APRN [address] [place] [address] PCP - General Family Medicine 06/29/20 documented as of this encounter
--- OUTSIDE RECORDS SUMMARY | 2024-05-09 14:01 | XMS_ITS | Encounter Summary ---
Author Organization [facility] Address [facility] [place] [address] Care Team Providers Care Steam Setter Name Role Phone Charleen Williamson APRN Primary Care Provider [phone] Reason for Visit * Treatment/Therapy Plan Authorization (Routine) - Closed Specialty Diagnoses / Procedures Referred By Contac t Referred To Contact Diagnoses 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, estrogen receptor positive Procedures INJ, ADO-TRASTUZUMAB EMT 1MG TC GOSERELIN ACETATE IMPLANT, 3.6MG (ZOLADEX) TC PALONOSETRON HCL, 25MCG, INJECTION (ALOXI) Tyra Cornejo MD [facility] [place] [address] [facility] Hem Onc Office [address] [place] [phone] Referral ID Status Reason Start Date Expiration Date Visits Re quested Visits Authorized [id number] Closed 03/01/2021 04/26/2022 99 99 Encounter Details Date Type Department Care Team (Latest Contact Info) Description 07/24/2021 11:23 AM EDT - 07/24/2021 11:59 PM EDT Hospital Encounter [place]ematology [place] [address] Malignant neoplasm of overlapping sites of right [...] EVERY 8 HOURS NEEDED FOR ANXIETY 07/09/2020 busPIRone (Buspar) 5 mg Tablet Take 5 mg by mouth 3 times daily. 08/07/2021 diclofenac (Voltaren) 1 % Gel Apply 2 [...] 04/18/2021 06/18/2022 Miscellaneous Medical Supply Misc by [facility]Non-Drug; Combo Route) route. Remedy Phytoplex Moisturizer. Apply [...] as of this encounter Progress Notes * Kymberly Harris RN - 07/24/2021 11:55 AM EDT Patient Name: Alis Silva Patient Age: 30 y.o. Birthdate: 1990 Admit date: 07/24/2021 Attending Physician: No att. providers found Access visit. See MAR and/or flowsheet. documented in this encounter Plan of Treatment Upcoming Encounters Date Type Department Care Team (Late st Contact Info) Description 02/13/2025 1:00 PM EDT Office Visit Radiation Oncology at [address] [phone] Eleonora Mensah MD [facility] [place] [address] documented as of this encounter Procedures Procedure Name Priority Date/Time Associated Diagnosis Comments HC THYROID STIMULATING HORMONE, SERUM Routine 07/24/2021 11:52 AM EDT 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, estrogen receptor positive HEMOGRAM STAT 07/24/2021 11:52 AM EDT 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, estrogen receptor positive DIFFERENTIAL, AUTOMATED STAT 07/24/2021 11:52 AM EDT 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, estrogen receptor positive HC CBC,PLT & AUTO DIFF STAT 11:52 AM EDT 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, estrogen receptor positive COMPREHENSIVE METABOLIC PANEL STAT 07/24/2021 11:52 AM EDT 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, estrogen receptor positive documented in this encounter Results * Differential, Automated (07/24/2021 11:52 AM EDT) Neutrophil % 64.9 % [facility] Neutrophil Absolute 4.78 1.70 - 6.10 x10(3)/[facility] Lymph % 22.8 % [facility] Lymphocytes Abs 1.7 0.9 - 3.2 x10(3)/[facility] Monocyte % 10.4 % [facility] Monocyte Abs 0.8 0.3 - 0.9 x10(3)/[facility] Eos % 0.9 % [facility] Eosinophils Abs 0.1 0.0 - 0.4 x10(3)/[facility] Basophil % 0.9 % [facility] Baso Absolute 0.1 0.0 - 0.1 x10(3)/[facility]OR[facility] Immature Gran % 0.10 % [facility] Comment: Immature granulocytes(IG's)percentage and absolute count will include metamyelocytes, myelocytes, and promyelocytes. Blood smears from CBCs yielding IG's will be scanned manually for concordance. If this scan disagrees with the automated IG or if promyelocytes are noted, a manual differential will be performed. Immature Gran Absolute 0.01 0.00 - 0.04 x10(3)/[facility] Blood 07/24/2021 11:5 2 AM EDT 07/24/2021 12:16 PM EDT Narrative Resulting Agency Comment Spec In Lab Tyra Cornejo MD HEMATOLOGY ORDERABL ES [facility] [place] [address] * Hemogram (07/24/2021 11:52 AM EDT) [facility] White Blood Cell 7.4 4.0 - 9.5 x10(3)/[facility] Red Blood Cell 4.35 4.00 - 5.21 x10(6)/[facility] Hemoglobin 13.1 11.7 - 15.5 g/dL [facility] Hematocrit 38.0 35.7 - 45.8 % [facility] Mean Cell Volume 87.4 82.6 - 94.4 fL [facility] Mean Cell Hemoglobin 30.1 27.1 - 32.0 pg [facility] Mean Cell Hemoglobin Concentration 34.5 31.7 - 35.0 g/dL [facility] Platelet 209 145 - 357 x10(3)/[facility] RDW Standard Deviation 39.2 37.0 - 46.0 [facility] RDW coefficient of variation 12.3 11.5 - 14.1 % [facility] Mean Platelet Volume 8.8 7.6 - 12.9 [facility] NRBC% auto 0.0 % [facility] NRBC Absolute 0.000 0.000 - 0.000 x10(3)/[facility] Blood 07/24/2021 11:5 2 AM EDT 07/24/2021 12:16 PM EDT Narrative Resulting Agency Comment Spec In Lab Tyra Cornejo MD HEMATOLOGY ORDERABL ES [facility] [place] [address] * (ABNORMAL) Comprehensive metabolic panel (non-fasting) (07/24/2021 11:52 AM EDT) [facility] Glucose 85 65 - 199 mg/dL [facility] Comment:Diabetes: >=200 mg/d L plus symptoms Blood Urea Nitrogen 16 8 - 18 mg/dL [facility] Creatinine 0.70 0.70 - 1.20 mg/dL [facility] Sodium 136 135 - 145 mmol/L [facility] Potassium 3.9 3.5 - 5.0 mmol/L [facility] Comment: Please note: ??Patients with WBC >100,000 may have falsely elevated Potassium levels. ??For accurate Potassium quantification in these patients send serum separator tube (gold top) for subsequent determinations. ??Contact the Clinical Chemistry Laboratory if there are any questions. Chloride 100 98 - 107 mmol/L [facility] Carbon Dioxide 26 22 - 31 mmol/L [facility] Anion Gap 10 5 - 15 mmol/L [facility] Calcium 10.0 8.5 - 10.5 mg/dL [facility] Protein, Total 8.4(H) 6.1 - 8.0 g/dL [facility] Albumin 4.5 3.2 - 5.2 g/dL [facility] Aspartate Aminotransferase 28 0 - 30 unit/L [facility] Alanine Aminotransferase 20 0 - 30 unit/L [facility] Alkaline Phosphatase 79 35 - 105 unit/L [facility] Bilirubin, Total 0.3 0.2 - 1.3 mg/dL [facility] Est Glomerular Filtration Rate 118 >=60 mL/min/1. 73 m?? [facility] Comment: This patient? s estimated glomerular filtration rate (eGFR) is between 118 mL/min/1.73 m2 (patients with less muscle mass) and 137 mL/min/1.73 m2 (patients with more muscle mass) [...] and symptoms in addition to eGFR. Blood 07/24/2021 11:5 2 AM EDT 07/24/2021 12:16 PM EDT Narrative Resulting Agency Comment Spec In Lab Tyra Cornejo MD CHEMISTRY ORDERABLE S Performing Organization Address City/[facility]/ZIP Co de Phone Number [facility] [place] [address] * TSH Jackson (07/24/2021 11:52 AM EDT) Thyroid Stimulating Hormone 1.80 0.27 - 4.20 mcIU/mL [facility] Comment: Reference Interval (mcIU/mL): Females: ??First Trimester: 0.23-3.88 ??Second Trimester: 0.22-3.90 ??Third Trimester: 0.44-4.66 Blood 07/24/2021 11:5 2 AM EDT 07/24/2021 12:16 PM EDT Narrative Resulting Agency Comment Spec In Lab Tyra Cornejo MD CHEMISTRY ORDERABLE S Performing Organization Address [facility] Co de Phone Number [facility] [place] [address] documented in this encounter Visit Diagnoses Diagnosis [...] Intravenous, EVERY 1 MIN PRN, Starting on Thu07/24/21 at 1124, Until Thu07/25/21 at 0435, Line Care, Flush pertains to all indwelling lines. Flush per protocol found in the job aid using the link provided on this medication record. Refer to Intravenous (IV) Job Aid: Adult Flushing & Catheter Care (5441) job aid for additional information regarding guidelines and administration., Routine Given 07/24/2021 11:55 AM EDT 20 mLs documented in this encounter Care Teams Steam Setter Relationship Specialty Start Date End Date Charleen Williamson APRN [address] [place] [address] PCP - General Family Medicine 06/29/20 documented as of this encounter
--- OUTSIDE RECORDS SUMMARY | 2024-05-09 14:01 | XMS_ITS | Encounter Summary ---
[place] [address] Care Team Providers Care Extrusion Die Coordinator Name Role Phone Charleen Williamson APRN Primary Care Provider [phone] Reason for Referral * Consultation (Routine) - Closed Specialty Diagnoses / Procedures Referred By Fawn t Referred To Contact Podiatry Diagnoses Paronychia of great toe of right foot Ingrown nail Barbara Cain PA [facility] [place] [address] [facility] [place] [address] Referral ID Status Reason Start Date Expiration Date V isits Requested Visits Authorized [id number] Closed Consult, Test & Treat 09/04/2021 09/04/2022 1 1 Reason for Visit * Reason Comments Follow-up Encounter Details Date Type Department Care Team (Late st Contact Info) Description 09/04/2021 1:30 PM EDT Office Visit [place] [address] Barbara Cain PA Malignant 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, estrogen receptor positive; Swelling of right hand; Adjustment disorder with mixed anxiety and depressed mood; Chronic anal fissure; Paronychia of great toe of right foot; Ingrown nail Social History Tobacco Use Types Packs/Day Years [...] Sign Reading Time Taken Comments Blood Pressure 128/89 09/04/2021 1:28 PM EDT Pulse 81 09/04/2021 1:28 PM EDT Temperature 36.4 ??C (97.5 ??F) 09/04/2021 1:28 PM ED T Respiratory Rate 18 09/04/2021 1:28 PM EDT Oxygen Saturation 96% 09/04/2021 1:28 PM EDT Inhaled Oxygen Concentration - - Weight 81.3 kg (179 lb 3.2 oz) 09/04/2021 1:28 P M EDT Height 174 cm (5' 8.5) 09/04/2021 1:28 PM EDT Body Mass Index 26.85 09/04/2021 1:28 PM EDT documented in this encounter Patient Instructions * Attachments The following attachments cannot be sent through Care Everywhere. * Anal Fissure ([facility]) * Paronychia ([facility]) documented in this encounter Progress Notes * Barbara Cain PA - 09/04/2021 1:30 PM EDT [facility] Breast Oncology Clinic: Follow-up Visit Identification: Alis Silva is a 30 y.o. female with locally advanced right breast cancer; s/pneoadjuvant chemotherapy with TCHP, R mastectomy/ALND; currently on adjuvant T-DM1 for residual disease. Medical Oncologist: Tyra Cornejo MD Interim History: Alis presents today for 3-week follow-up on adjuvant T-DM1; consideration of cycle 7. Working on coming off sertraline with psychiatric nursing assistant; currently on 100 mg, will start 50 mg tomorrow. Feeling more irritable and angry, especially when a hot flash comes on. Continuing on trazodone. Gabapentin discontinued (felt fatigued, did not help hot flashes). She continues to have anal irritation, pain, and bleeding, especially with bowel movements. PCP rx'd Nystatin and triamcinolone, but they have not helped. Having some irritation around the nails on her toes; expressed pus from the right great toe last week. Right arm swelling and wrist pain persists; working on getting a sleeve. Review of Systems: General: Denies fevers, chills, appetite changes. Skin: Denies rashes, new skin lesions. HEENT: Denies headaches, double vision, dental pain, mouth sores. Pulm: Denies cough. Reports intermittent dyspnea with activity/stairs. CV: Denies chest pain, palpitations. Extremities: Denies peripheral edema, leg swelling/pain/redness. GI: Denies vomiting, heartburn, diarrhea, melena. : Denies dysuria, hematuria. Repro: Premenopausal. [...] Reports anxiety, depression. Taking trazodone for sleep. Breast Cancer History: Diagnosis: - 29 yo self-palpated a mass under the right nipple when she noticed it had inverted at the end of May 2020. 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 - Not eligible for adjuvant tucatinib trial due to participation in the [place] axillary management trial. - TDM-1 q3 wks x 14 cycles planned as per LUIS trial results showing improved PFS with TDM-1 compared to trastuzumab in those who did not achieve a path CR with NAC. - RT completed 04/22/21 to 06/03/21: 50 Gy in 25 fxs to R supraclavicular fossa, R axilla & R chest wall with 6 & 10 MV Xray external beam, followed by volume reduction & 10 Gy/5 fxs to mastectomy scar with 9 MeV electron beam, boosting mastectomy scar to 60 Gy/30 fxs. 3D xrt used.? RFs: Menses started age 14. 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 - VUS was detected in the following genes: Gene Variant RET c.2982A>C (p.Eeo937Hqm) SDHB c.482A>G (p.Hpv392Caa) SH: No smoking No current EtOH to [employer] occ on [employer] / unemployed No children - desires biological children in the future Vitals: Patient Vitals for the past 24 hrs: Temp Pulse Resp BP SpO2 09/04/21 1328 36.4 ??C (97.5 ??F) 81 18 128/89 96 % Wt Readings from Last 3 Encounters: 09/04/21 81.3 kg (179 lb 3.2 oz) 08/14/21 82.6 kg (182 lb) 07/24/21 82.6 kg (182 lb 3.2 oz) Physical Exam: Vitals reviewed. General: A&Ox3. Well-developed and well-nourished. No acute distress. Head: Normocephalic, atraumatic. Eyes: EOMs intact. Conjunctiva pink. No scleral icterus. Chest: Port site (left) accessed. No tenderness. Blotchy erythema; no hives. Pulmonary: Breathing comfortably on room air. Lungs CTAB CV: RRR without murmurs. No LE edema. Breasts: s/p right mastectomy. Left breast without suspicious masses, skin changes, nipple changes,or palpable axillary nodes. Abdomen: NTND. : Skin tag and linear ulceration extending into anus at 7:00. No erythema, fluctuance, rash, or hemorrhoids. Extremities: Right arm wrapped. Neurological: Gait normal. No focal deficits noted. Skin: Warm and dry. No rashes noted. Psychiatric: Mood is anxious. Affect is mood-congruent. Insight is good. Thought-content is normal,future-oriented. Results: Lab Results Component Value Date WBC 7.0 09/04/2021 HGB 13.0 09/04/2021 HCT 37.2 09/04/2021 MCV 87.1 09/04/2021 PLATELET 165 09/04/2021 Lab Results Component Value Date NEUTROABS 4.20 09/04/2021 Lab Results Component Value Date NA 139 09/04/2021 K 3.9 09/04/2021 CL 101 09/04/2021 CO2 26 09/04/2021 BUN 12 09/04/2021 CREATININE 0.79 09/04/2021 GLUCOSE 97 09/04/2021 CALCIUM 9.8 09/04/2021 ESTGFR 102 09/04/2021 Lab Results Component Value Date ALT 23 09/04/2021 AST 35 (H) 09/04/2021 ALKPHOS 71 09/04/2021 BILITOT 0.3 09/04/2021 ALBUMIN 4.2 09/04/2021 PROT 8.3 (H) 09/04/2021 Baseline TTE 07/20/20: EF 62% TTE 12/06/20: EF = 54% TTE 02/20/21: EF = 59% TTE 06/26/21: EF = 61% Most recent left mammo 08/16/21 (callback): benign Assessment & Plan: Alis is a 30 y.o. premenopausal woman with a large, node+, ER/OR+ HER2+ breast cancer, partial pathologic response to neoadjuvant TCHP [[id number]], s/p mastectomy/ALND, RT, and is now receiving adjuvant T-DM1 for residual disease per LUIS trial. She started tamoxifen on 06/18/21 and continues on ovarian suppression. #Breast cancer ?? Continue with adjuvant T-DM1, cycle 7 ?? Goserelin 10.8 mg q12 weeks - due at next visit; could consider holding to see if this helps with some of her symptoms ?? Continue tamoxifen ?? Left mammo UTD #Treatment monitoring for toxicity ?? Laboratory results are within acceptable limits to proceed with treatment today. ?? Cardiovascular monitoring: TTE repeated 06/26/21 and stable #Right wrist pain #Right UE lymphedema ?? Referred to lymphedema PT specialist ?? Voltaren gel applied locally up to 4x daily (difficult with current lymphedema wraps); OK to alternate tylenol and ibuprofen per bottle instructions #Anal fissure ?? Topical nitroglycerin BID x 4 weeks ?? Topical lidocaine PRN for pain ?? Sitz baths and general supportive care (written info provided) ?? Increase fiber ?? If no improvement after 4-8 weeks, refer to surgery #Paronychia ?? No indication for oral abx ?? General hygiene/care instructions provided ?? Referral to podiatry for nail care #Psychosocial ?? Followed by psycho-oncology for med management and counseling ?? Breast cancer cognitive clinic evaluation showed isolated cognitive difficulties likely due at least in part to depression ?? HOTEL DESK CLERK following Total time spent on the date of the encounter: 45 minutes (Includes time spent reviewing prior notes and tests, obtaining a history, performing an exam, counseling and education, coordination of care, ordering medications/tests, placing referrals, interpreting results, and documenting in the chart). Barbara Cain PA-C Comprehensive Breast Program, Medical Oncology [facility] Pager - [phone] Future Appointments Date Time Provider Department Center 09/10/2021 2:00 PM Mei Zamora [facility] HEM ONC [facility] 09/17/2021 11:30 AM Jossy Yancey APRN [facility] HEM ONC [facility] 09/25/2021 9:00 AM ACCESS ROOM [facility] INF [address] [place] [address] 09/25/2021 10:00 AM Tyra Cornejo MD [facility] HEM ONC [facility] 09/25/2021 3:00 PM [facility] [address] 10/16/2021 9:30 AM ACCESS ROOM [facility] INF [address] [place] [address] 10/16/2021 10:30 AM Tyra Cornejo MD [facility] HEM ONC [facility] 10/16/2021 12:00 PM [facility] INFUSION THERAPY [facility] INF 3K [facility] 11/06/2021 12:15 PM ACCESS ROOM [facility] INF 3K [facility] 11/06/2021 1:30 PM Tyra Cornejo MD [facility] HEM ONC [facility] 11/06/2021 3:00 PM [facility] INFUSION THERAPY [facility] INF 3K [facility] 11/12/2021 1:00 PM Dafne Dykes, PhD [facility] HEM ONC [facility] documented in this encounter Plan of Treatment Upcoming Encounters Date Type Department Care Team (Late st Contact Info) Description 02/13/2025 1:00 PM EDT Office Visit Radiation Oncology at [address] [address] Eleonora Mensah MD [facility] [place] [address] Scheduled Referrals Name Type Priority Associated Diagnoses Orde r Schedule Referral to Podiatry Outpatient Referral Routine Paronychia of great toe of right foot Ingrown nail Ordered: 09/04/2021 documented as of this encounter Visit Diagnoses Diagnosis Malignant 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, estrogen receptor positive Swelling of right hand Adjustment disorder with mixed anxiety and depressed mood Chronic anal fissure Anal fissure Paronychia of great toe of right foot Onychia and paronychia of toe Ingrown nail Ingrowing nail documented in this encounter Care Teams Extrusion Die Coordinator Relationship Specialty Start Date End Date Charleen Williamson, JAVASCRIPT ENGINEER [address] [address] PCP - General Family Medicine 06/29/20 documented as of this encounter
--- OUTSIDE RECORDS SUMMARY | 2024-05-09 14:01 | XMS_ITS | Encounter Summary ---
Author Organization [facility] Address [facility] [place] [address] Care Team Providers Care Turbine Blade Assembler Name Role Phone Charleen Williamson APRN Primary Care Provider [phone] Encounter Details Date Type Department Care Team (Late st Contact Info) Description 09/25/2021 Notes Only Care Management [facility] [id number] Kenyetta Kohler, CITY PLANNING TEACHER Social History Tobacco Use Types Packs/Day Years [...] Progress Notes * Kenyetta Kohler MSW - 09/25/2021 9:59 AM EDT I'm able to meet briefly with pt, Alis, while she is here today for oncology follow up with Dr. Cornejo. Alis reports that she is thinking of changing jobs when she completes tx. 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 However, she has concerns about potential change of insurance plan/loss of [place] Medicaidif she takes on more gainful employment. We review insurance basics of annual financial responsibility in the form of deductible, co-insurance, and ohm-kn-hcgide maximum. Alis would like to maintain zero to minimal co-pays for prescription coverage. We also review that eligibility for [place] Medicaid depends on household income, and if Alis takes a position earning over the limit she could lose the coverage. 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 She is also considering going back to school. Per our planning I send her link to Cancer + Careers website (https://[email or web address].org/en) for her review. We also plan to keep in touch as she thinks through her preferences and options so Ican offer relevant resources as may be useful to her process. Completed today: Brief assessment Other: employment resources documented in this encounter Plan of Treatment Upcoming Encounters Date Type Department Care Team (Late st Contact Info) Description 02/13/2025 1:00 PM EDT Office Visit Radiation Oncology at [address] [phone] Eleonora Mensah MD [facility] [place] [address] documented as of this encounter Visit Diagnoses Not on filedocumented in this encounter Care Teams Turbine Blade Assembler Relationship Specialty Start Date End Date Charleen Williamson APRN [address] [place] [address] PCP - General Family Medicine 06/29/20 documented as of this encounter
--- OUTSIDE RECORDS SUMMARY | 2024-05-09 14:02 | XMS_ITS | Encounter Summary ---
Author Organization [facility] Address [facility] [place] [address] Care Team Providers Care Foreign Food Cook Specialty Name Role Phone Charleen Williamson APRN Primary Care Provider [phone] Reason for Visit * Reason Comments Chemotherapy Cycle 2, Day 1 * Treatment/Therapy Plan Authorization (Routine) - Closed Specialty Diagnoses / Procedures Referred By Fawn weston Referred To Contact Diagnoses 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, estrogen receptor positive Procedures INJ, ADO-TRASTUZUMAB EMT 1MG TC GOSERELIN ACETATE IMPLANT, 3.6MG (ZOLADEX) TC PALONOSETRON HCL, 25MCG, INJECTION (ALOXI) Tyra Cornejo MD [facility] [address] H[place]ATOLOGY [place] [address] [facility] Hem Onc Office [address] [place] [address] Referral ID Status Reason Start Date Expiration Date Visits Re quested Visits Authorized [id number] Closed 03/01/2021 04/26/2022 99 99 Encounter Details Date Type Department Care Team (Late st Contact Info) Description 05/21/2021 2:30 PM EST Infusion Hematology Oncology at [address] [address] Malignant neoplasm of overlapping sites of right [...] as of this encounter Progress Notes * Fernando Fisher RN - 05/21/2021 2:30 PM EST INFUSION THERAPY ADMINISTRATION NOTES DIAGNOSIS: Breast Cancer CYCLE #2: Day 1 REASON FOR VISIT: ado-Trastuzumab emtansine SUBJECTIVE Alis Silva offers no complaints. Seen by provider in clinic. Dexamethasone added to premedication to aid with nausea symptoms. OBJECTIVE LAB DATA: Done today at [facility] [place] for treatment. IV ACCESS: Mediport accessed at OSH for Labs, brisk blood return noted. Pre administration: Chemotherapy orders independently verified for drug name, route, and dosage per patient's height, weight and BSA by Fernando Fisher, DENISE & onsite pharmacist. REACTIONS (DESCRIPTION, TIME, INTERVENTION AND EFFECTIVENESS) none ASSESSMENT Alis Silva was awake, alert and tolerated treatment well. Remained in clinic for 30 min afterinfusion to monitor for reactions without issue. PLAN Return to clinic per routine. documented in this encounter Plan of Treatment Upcoming Encounters Date Type Department Care Team (Late st Contact Info) Description 02/13/2025 1:00 PM EDT Office Visit Radiation Oncology at [address] [phone] Eleonora Mensah MD [facility] [place] [address] documented as of this encounter Visit Diagnoses [...] 300 mg, Intravenous, ONCE, 1 dose, On Thu05/21/21 at 1545, Administer over 30 Minutes, Monitor patient for ado-trastuzumab emtansine infusion reactions 30 minutes after each subsequent dose if the first dose was well-tolerated. Dose Ordered = 303 mg (3.6 mg/kg). Pharmacist rounded dose per procedure., This agent is restricted to outpatient use. Is this drug being given as an outpatient? Yes New Bag 05/21/2021 2:59 PM EST 300 mg 530 mL/hr dexamethasone (Decadron) injection 10 mg 10 mg, Intravenous, ONCE, 1 dose, On Thu05/21/21 at 1445 Given 05/21/2021 2:26 PM EST 10 mg heparin (pf) (porcine) (100 units/mL) flush 5 mL syringe 500 Units 500 Units, Intravenous, ONCE PRN, Starting on Thu05/21/21 at 1416, Until Thu05/21/21 at 1827, Line Care, Refer to Intravenous (IV) Procedure: Accessing Implanted Vascular Access Devices (654) procedure and/or Intravenous (IV) Job Aid: Adult Flushing & Catheter Care (3907) job aid for additional information regarding guidelines and administration., Routine Given 05/21/2021 4:04 PM EST 500 Units ondansetron (Zofran) tablet 8 mg 8 mg, Oral, ONCE, 1 dose, On Thu05/21/21 at 1445, Administer prior to chemotherapy, Routine Given 05/21/2021 2:24 PM EST 8 mg sodium chloride 0.9 % (flush) (BD PosiFlush Normal Saline 0.9) flush 5-20 mL 5-20 mL, Intravenous, EVERY 1 MIN PRN, Starting on Thu05/21/21 at 1416, Until Thu05/21/21 at 1827, Line Care, Flush pertains to all indwelling lines. Flush per protocol found in the job aid using the link provided on this medication record. Refer to Intravenous (IV) Job Aid: Adult Flushing & Catheter Care (4516) job aid for additional information regarding guidelines and administration., Routine Given 05/21/2021 4:04 PM EST 20 mLs documented in this encounter Care Teams Foreign Food Cook Specialty Relationship Specialty Start Date End Date Charleen Williamson APRN [address] [place] [address] PCP - General Family Medicine 06/29/20 documented as of this encounter
--- OUTSIDE RECORDS SUMMARY | 2024-05-09 14:02 | XMS_ITS | Encounter Summary ---
Author Organization [facility] Address [facility] [place] [address] Care Team Providers Care Press Tender Incendiary Grenade Name Role Phone Charleen Williamson APRN Primary Care Provider [phone] [phone] Reason for Visit * Reason Comments Chemotherapy Kadcyla * Treatment/Therapy Plan Authorization (Routine) - Closed Specialty Diagnoses / Procedures Referred By Fawn weston Referred To Contact Diagnoses 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, estrogen receptor positive Procedures INJ, ADO-TRASTUZUMAB EMT 1MG TC GOSERELIN ACETATE IMPLANT, 3.6MG (ZOLADEX) TC PALONOSETRON HCL, 25MCG, INJECTION (ALOXI) Tyra Cornejo MD [facility] [place] [address] [facility] Hem Onc Office [address] [place] [phone] Referral ID Status Reason Start Date Expiration Date Visits Re quested Visits Authorized [id number] Closed 03/01/2021 04/26/2022 99 99 Encounter Details Date Type Department Care Team (Latest Contact Info) Description 07/24/2021 11:23 AM EDT - 07/24/2021 11:59 PM EDT Hospital Encounter [place] [address] Malignant neoplasm of overlapping sites of right [...] 06/18/2022 Miscellaneous Medical Supply Misc [place] [facility] [place]rug; Combo Route) route. Remedy Phytoplex Moisturizer. Apply [...] as of this encounter Progress Notes * Kasia Krishna RN - 07/24/2021 4:13 PM EDT Patient Name: Alis Silva Patient Age: 30 y.o. Birthdate: 1990 Admit date: 07/24/2021 Attending Physician: Shila att. providers found Alis Silva, 30 y.o. female with diagnosis of 1. 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, estrogen receptor positive is here for chemotherapy infusion of Kadcyla. PROTOCOL: n/a CYCLE: 5 DAY: 1 S: Pt. offers no complaints at this time. Reviewed plan of care for infusion visit, patient verbalized understanding of plan as outlined. O: Chemotherapy orders independently verified for correct drug name, route and dosage per patient'sheight, weight and BSA by Kasia Krishna RN, RN and onsite pharmacist. Chemotherapy administered per protocol. REACTIONS (DESCRIPTION, TIME, INTERVENTION AND EFFECTIVENESS) none A: Pt. Tolerated treatment without issue. Alis Silva confirms that all questions and issues have been addressed. Patient waited for 30 min obs period, no issues observed/reported. P: Return to clinic as scheduled. documented in this encounter Plan of Treatment Upcoming Encounters Date Type Department Care Team (Late st Contact Info) Description 02/13/2025 1:00 PM EDT Office Visit Radiation Oncology at [address] [phone] Eleonora Mensah MD [facility] [place] [address] documented as of this encounter Results * (ABNORMAL) Comprehensive metabolic panel (non-fasting) (07/24/2021 11:52 AM EDT) Glucose 85 65 - 199 mg/dL [facility] Comment:Diabetes: >=200 mg/d L plus symptoms Blood Urea Nitrogen 16 8 - 18 mg/dL [facility] Creatinine 0.70 0.70 - 1.20 mg/dL [facility] Sodium 136 135 - 145 mmol/L [facility] Potassium 3.9 3.5 - 5.0 mmol/L [facility] Comment: Please note: ??Patients with WBC >100,000 may have falsely elevated Potassium levels. ??For accurate Potassium quantification in these patients send serum separator tube (gold top) for subsequent determinations. ??Contact the Clinical Chemistry Laboratory if there are any questions. Chloride 100 98 - 107 mmol/L [facility] Carbon Dioxide 26 22 - 31 mmol/L [facility] Anion Gap 10 5 - 15 mmol/L [facility] Calcium 10.0 8.5 - 10.5 mg/dL [facility] Protein, Total 8.4(H) 6.1 - 8.0 g/dL [facility] Albumin 4.5 3.2 - 5.2 g/dL [facility] Aspartate Aminotransferase 28 0 - 30 unit/L [facility] Alanine Aminotransferase 20 0 - 30 unit/L [facility] Alkaline Phosphatase 79 35 - 105 unit/L [facility] Bilirubin, Total 0.3 0.2 - 1.3 mg/dL [facility] Est Glomerular Filtration Rate 118 >=60 mL/min/1. 73 m?? [facility] Comment: This patient? s estimated [...] CHEMISTRY ORDERABLE S [facility] [place] [place] [address] documented in this encounter Visit Diagnoses Diagnosis [...] 300 mg, Intravenous, ONCE, 1 dose, On Thu07/24/21 at 1545, Administer over 30 Minutes, Monitor patient for ado-trastuzumab emtansine infusion reactions 30 minutes after each subsequent dose if the first dose was well-tolerated. Dose Ordered = 303 mg (3.6 mg/kg). Pharmacist rounded dose per procedure., This agent is restricted to outpatient use. Is this drug being given as an outpatient? Yes New Bag 07/24/2021 3:42 PM EDT 300 mg 530 mL/hr dexamethasone (PF) (Decadron) (10 mg/mL) injection 10 mg 10 mg, Intravenous, ONCE, 1 dose, On Thu07/24/21 at 1445 Given 07/24/2021 3:32 PM EDT 10 mg heparin (pf) (porcine) (100 units/mL) flush 5 mL syringe 500 Units 500 Units, Intravenous, ONCE PRN, Starting on Thu07/24/21 at 1429, Until Alannah 07/25/21 at 0435, Line Care, Refer to Intravenous (IV) Procedure: Accessing Implanted Vascular Access Devices (774) procedure and/or Intravenous (IV) Job Aid: Adult Flushing & Catheter Care (8476) job aid for additional information regarding guidelines and administration., Routine Given 07/24/2021 4:50 PM EDT 500 Units palonosetron (Aloxi) (0.05 mg/mL) injection 0.25 mg 0.25 mg, Intravenous, ONCE, 1 dose, On Thu07/24/21 at 1445, Routine Given 07/24/2021 3:31 PM EDT 0.25 mg sodium chloride 0.9 % (flush) (BD PosiFlush Normal Saline 0.9) flush 5-20 mL 5-20 mL, Intravenous, EVERY 1 MIN PRN, Starting on Thu07/24/21 at 1429, Until Alananh 07/25/21 at 0435, Line Care, Flush pertains to all indwelling lines. Flush per protocol found in the job aid using the link provided on this medication record. Refer to Intravenous (IV) Job Aid: Adult Flushing & Catheter Care (7578) job aid for additional information regarding guidelines and administration., Routine Given 07/24/2021 4:48 PM EDT 20 mLs documented in this encounter Care Teams Press Tender Incendiary Grenade Relationship Specialty Start Date End Date Charleen Williamson, AERIAL SURVEY TECHNICIAN [address] [place] [address] PCP - General Family Medicine 06/29/20 documented as of this encounter
--- OUTSIDE RECORDS SUMMARY | 2024-05-09 14:02 | XMS_ITS | Encounter Summary ---
Author Organization [facility] Address [facility] [place] [address] Care Team Providers Care Wet Cleaner Machine Name Role Phone Charleen Williamson APRN Primary Care Provider [phone] [phone] Reason for Visit * Treatment/Therapy Plan Authorization (Routine) - Closed Specialty Diagnoses / Procedures Referred By Contac t Referred To Contact Diagnoses 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, estrogen receptor positive Procedures INJ, ADO-TRASTUZUMAB EMT 1MG TC GOSERELIN ACETATE IMPLANT, 3.6MG (ZOLADEX) TC PALONOSETRON HCL, 25MCG, INJECTION (ALOXI) Tyra Cornejo MD [facility] [address] [place] [address] [facility] Hem Onc Office [address] [place] [phone] Referral ID Status Reason Start Date Expiration Date Visits Re quested Visits Authorized [id number] Closed 03/01/2021 04/26/2022 99 99 Encounter Details Date Type Department Care Team (Latest Contact Info) Description 06/12/2021 7:45 AM EST Hospital Encounter Hematology [place] [address] Malignant neoplasm of overlapping sites [...] EVERY 8 HOURS NEEDED FOR ANXIETY 07/09/2020 silver sulfADIAZINE (Silvadene) 1 % CreamIndications:Contac t [...] 06/18/2022 Miscellaneous Medical [place]isc [place] [facility] [place]; Combo Route) route. Remedy Phytoplex Moisturizer. Apply to area of radiation twice a day but no less than 2 hours before a treatment. 06/18/2022 ibuprofen (Advil) 600 mg Tablet Take 1 tablet by mouth every 6 hours. 30 tablet 12 01/28/2021 03/24/2022 oxyCODONE (Roxicodone) 5 mg Tablet Take 1 tablet by mouth every 6 hours as needed for Pain. 10 tablet 01/03/2021 07/03/2021 sertraline (ZOLOFT) 100 mg Tablet Take 200 mg by mouth daily. 12/11/2020 09/17/2021 prochlorperazine (Compazine) 10 mg Tablet Take 1 tablet by mouth every 6 hours as needed for Nausea. 15 tablet 12/07/2020 03/24/2022 dexamethasone (DECADRON) 2 mg Tablet Take 2 tablets 2-3 days after chemotherapy, then take 1 tablet for 1-3 more days, stop when nausea resolves. 6 tablet 11/29/2020 07/03/2021 chlorhexidine (PERIDEX) 0.12 % Mouthwash Take 15 mLs by mouth 2 times daily. 120 mL 11/29/2020 07/03/2021 LORazepam (Ativan) 0.5 mg Tablet Take 1 tablet by mouth every 6 hours as needed (chemotherapy induced nausea). 30 tablet 11/13/2020 07/03/2021 loratadine (Claritin) 10 mg Tablet Take 10 [...] as of this encounter Progress Notes * Rosio Castillo RN - 06/12/2021 8:04 AM EST Patient Name: Alis Silva Patient Age: 30 y.o. Birthdate: 1990 Admit date: 06/12/2021 Attending Physician: No att. providers found Access visit. See MAR and/or flowsheet. * Rosio Castillo RN - 06/12/2021 8:01 AM EST Patient Name: Alis Silva Patient Age: 30 y.o. Birthdate: 1990 Admit date: 06/12/2021 Attending Physician: No att. providers found Access visit. See MAR and/or flowsheet. documented in this encounter Miscellaneous Notes * Addendum Note - Rosio Castillo RN - 06/12/2021 8:04 AM ESTEncounter addended by: Rosio Castillo RN on: 06/12/2021 8:04 AM Actions taken: Flowsheet accepted, Clinical Note Signed documented in this encounter Plan of Treatment Upcoming Encounters Date Type Department Care Team (Late st Contact Info) Description 02/13/2025 1:00 PM EDT Office Visit Radiation Oncology at [address] [phone] Eleonora Mensah MD [facility] [place] [address] documented as of this encounter Procedures Procedure Name Priority Date/Time Associated Diagnosis Comments HEMOGRAM STAT 06/12/2021 7:59 AM EST 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, estrogen receptor positive DIFFERENTIAL, AUTOMATED STAT 06/12/2021 7:59 AM EST 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, estrogen receptor positive HC CBC,PLT & AUTO DIFF STAT 7:59 AM EST 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, estrogen receptor positive COMPREHENSIVE METABOLIC PANEL STAT 06/12/2021 7:59 AM EST 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, estrogen receptor positive documented in this encounter Results * Differential, Automated (06/12/2021 7:59 AM EST) Neutrophil % 67.3 % [facility] Neutrophil Absolute 3.11 1.70 - 6.10 x10(3)/[facility] Lymph % 19.9 % [facility] Lymphocytes Abs 0.9 0.9 - 3.2 x10(3)/[facility] Monocyte % 10.0 % [facility] Monocyte Abs 0.5 0.3 - 0.9 x10(3)/[facility] Eos % 1.3 % [facility] Eosinophils Abs 0.1 0.0 - 0.4 x10(3)/[facility] Basophil % 1.1 % [facility] Baso Absolute 0.0 0.0 - 0.1 x10(3)/[facility] Immature Gran % 0.40 % [facility] Comment: Immature granulocytes(IG's)percentage and absolute count will include metamyelocytes, myelocytes, and promyelocytes. Blood smears from CBCs yielding IG's will be scanned manually for concordance. If this scan disagrees with the automated IG or if promyelocytes are noted, a manual differential will be performed. Immature Gran Absolute 0.02 0.00 - 0.04 x10(3)/[facility] Blood 06/12/2021 7:59 AM EST 06/12/2021 8:25 AM EST Narrative Resulting Agency Comment Spec In Lab Tyra Cornejo MD HEMATOLOGY ORDERABL ES [facility] [place] [address] * (ABNORMAL) Hemogram (06/12/2021 7:59 AM EST) White Blood Cell 4.6 4.0 - 9.5 x10(3)/[facility] Red Blood Cell 4.08 4.00 - 5.21 x10(6)/[facility] Hemoglobin 12.9 11.7 - 15.5 g/dL [facility] Hematocrit 36.2 35.7 - 45.8 % [facility] Mean Cell Volume 88.7 82.6 - 94.4 [facility] Mean Cell Hemoglobin 31.6 27.1 - 32.0 pg [facility] Mean Cell Hemoglobin Concentration 35.6(H) 31.7 - 35.0 g/dL [facility] Platelet 185 145 - 357 x10(3)/[facility] RDW Standard Deviation 38.2 37.0 - 46.0 [facility] RDW coefficient of variation 11.9 11.5 - 14.1 % [facility] Mean Platelet Volume 8.6 7.6 - 12.9 [facility] NRBC% auto 0.0 % [facility] NRBC Absolute 0.000 0.000 - 0.000 x10(3)/[facility] Blood 06/12/2021 7:59 AM EST 06/12/2021 8:25 AM EST Narrative Resulting Agency Comment Spec In Lab Tyra Cornejo MD HEMATOLOGY ORDERABL ES [facility] [place] [address] * (ABNORMAL) Comprehensive metabolic panel (non-fasting) (06/12/2021 7:59 AM EST) Glucose 138 65 - 199 mg/dL [facility] Comment:Diabetes: >=200 mg/d L plus symptoms Blood Urea Nitrogen 16 8 - 18 mg/dL [facility] Creatinine 0.70 0.70 - 1.20 mg/dL [facility] Sodium 137 135 - 145 mmol/L [facility] [...] Laboratory if there are any questions. Chloride 99 98 - 107 mmol/L [facility] Carbon Dioxide 26 22 - 31 mmol/L [facility] Anion Gap 12 5 - 15 mmol/L [facility] Calcium 9.9 8.5 - 10.5 mg/dL [facility] Protein, Total 8.1(H) 6.1 - 8.0 g/dL [facility] Albumin 4.3 3.2 - 5.2 g/dL [facility] Aspartate Aminotransferase 25 0 - 30 unit/L [facility] Alanine Aminotransferase 29 0 - 30 unit/L [facility] Alkaline Phosphatase 93 35 - 105 unit/L [facility] Bilirubin, Total 0.3 0.2 - 1.3 mg/dL [facility] Est Glomerular Filtration Rate 118 >=60 mL/min/1. 73 m?? [facility] [place] [...] and symptoms in addition to eGFR. Blood 06/12/2021 7:59 AM EST 06/12/2021 8:25 AM EST Narrative Resulting Agency Comment Spec In Lab Tyra Cornejo MD CHEMISTRY ORDERABLE S [facility] [place] [address] documented in this encounter Visit Diagnoses Diagnosis [...] Intravenous, EVERY 1 MIN PRN, Starting on Thu06/12/21 at 0747, Until Alannah 06/13/21 at 0434, Line Care, Flush pertains to all indwelling lines. Flush per protocol found in the job aid using the link provided on this medication record. Refer to Intravenous (IV) Job Aid: Adult Flushing & Catheter Care (5388) job aid for additional information regarding guidelines and administration., Routine Given 06/12/2021 8:01 AM EST 20 mLs documented in this encounter Care Teams Wet Cleaner Machine Relationship Specialty Start Date End Date Charleen Williamson APRN [address] [place] [address] PCP - General Family Medicine 06/29/20 documented as of this encounter
--- OUTSIDE RECORDS SUMMARY | 2024-05-09 14:02 | XMS_ITS | Encounter Summary ---
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 Social History Tobacco Use [...] Sign Reading Time Taken Comments Blood Pressure 126/75 05/14/2021 10:20 AM EST Pulse 85 05/14/2021 10:20 AM EST Temperature 37.3 ??C (99.1 ??F) 05/14/2021 1 0:20 AM EST Respiratory Rate 16 05/14/2021 10:2 0 AM EST Oxygen Saturation 99% 05/14/2021 10: 20 AM EST Inhaled Oxygen Concentration - - Weight 82.9 kg (182 lb 12.8 oz) 022 10:20 AM EST Height - - Body Mass Index 26.98 05/03/2021 10:29 AM EST documented in this encounter Patient Instructions * Patient Instructions* Eleonora Mensah MD - 05/14/2021 10:30 AM EST 1% hydrocortisone cream is available over the counter & can be applied to the irradiated area for itchiness. documented in this encounter Progress Notes * Eleonora Mensah MD - 05/14/2021 10:30 AM EST Images from the original note were not included. 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 Randomized on [id number] to ax dissxn, removing 13 lymph nodes, all neg. Xrt off protocol. Adjuvant TDM-1 concomitant w/xrt. On zoladex. Cabrera after xrt completion. ?? CURRENT TREATMENT DOSE: 32 Gy R supraclav, R axilla, R chest wall ANTICIPATED TOTAL DOSE: 50 Gy R supraclav, R axilla, R chest wall; 60 Gy mastectomy scar Current # of xrt received: 16 Anticipated total # of xrt txs: 30 Evaluation of port verification films: Approved. For details, see electronic film record in [employer]. Changes in Medical Condition: Rash (possibly from TDM-1) on legs less, seen by Heme-Onc DATA ACQUISITION TECHNICIAN yesterday w/rec to follow. Itchiness of skin w/in irrad'd area, incompletely relieved by phytoplex cream. Soreness of throat relieved by baking soda & salt mouth rinse/gargle. Back pain, longstanding, managed w/ibuprofen & chiropracter; bothers her when lying on xrt tx table. Tried tylenol for B sh oulder pain when on xrt tx table, but it bothered stomach, prefers to deal w/shoulder pain w/o medication. Pain?: See above. Your Medications Accurate as of May 14, 2021 10:39 AM. If you have any questions, ask your nurse or doctor. Continued medications, unchanged Dose Details acetaminophen 500 mg Tab Commonly known as: Tylenol Take 2 tablets by mouth every 6 hours. 1,000 mg Quantity: 30 tablet Refills: 1 chlorhexidine 0.12 % Mwsh Commonly known as: Peridex Take 15 mLs by mouth 2 times daily. 15 mL Quantity: 120 mL Refills: 0 clotrimazole 10 mg Troc Commonly known as: Mycelex Refills: 0 dexamethasone 2 mg Tab Commonly known as: DECADRON Take 2 tablets 2-3 days after chemotherapy, then take 1 tablet for 1-3 more days, stop when nausea resolves. Quantity: 6 tablet Refills: 0 hydrOXYzine 10 mg Tab Commonly known as: [...] by mouth daily. 1 capsule Refills: 0 lidocaine-prilocaine Crea Commonly known as: EMLA Apply topically 60 minutes prior to accessing port. Apply a thick layer of cream to designated siteof intact skin. Cover site with occlusive dressing. Quantity: 30 g Refills: 1 loratadine 10 mg Tab Commonly known as: Claritin Take 10 mg by mouth daily. 10 mg Refills: 0 LORazepam 0.5 mg Tab Commonly known as: Ativan Take 1 tablet by mouth every 6 hours as needed (chemotherapy induced nausea). 0.5 mg Quantity: 30 tablet Refills: 0 melatonin 5 mg Tab Take by mouth nightly. Refills: 0 Miscellaneous Medical [place] [facility] [place]; Combo Route) route. Remedy Phytoplex [...] mouth as needed. 4 mg Refills: 0 oxyCODONE 5 mg Tab Commonly known as: Roxicodone Take 1 tablet by mouth every 6 hours as needed for Pain. 5 mg Quantity: 10 tablet Refills: 0 prochlorperazine 10 mg Tab Commonly known as: Compazine Take 1 tablet by mouth every 6 hours as needed for Nausea. 10 mg Quantity: 15 tablet Refills: 0 propranoloL 20 mg Tab Commonly known as: Inderal Take 20 mg by mouth 2 times daily. 20 mg Refills: 0 sertraline 100 mg Tab Commonly known as: ZOLOFT Take 200 mg by mouth daily. 200 mg Refills: 0 traZODone 50 mg Tab Commonly known as: Desyrel Take 3 tablets by mouth nightly. 150 mg Quantity: 90 tablet Refills: 3 triamcinolone 0.1 % Crea Commonly known as: Kenalog APPLY SMALL AMOUNT TOPICALLY TO THE AFFECTED AREA TWICE DAILY Refills: 0 Physical Exam: BP 126/75 (Patient Position: Sitting) Pulse 85 Temp 37.3 ??C (99.1 ??F) (Temporal) Resp 16 Wt 82.9 kg (182 lb 12.8 oz) SpO2 99% BMI 26.98 kg/m?? A&Ox3, NAD. Irrad'd area w/mild erythema. Amb stable. Imagin03/19/21 Dx'ic Rad Interp CTsim: No suspicious lesion. Performance Status: KPS 100% Response to xrt: As expected. Irradiation Related Symptoms: Skin rxn. Pharyngitis/esophagitis. Treatment for Symptom Control: 1% htc recommended for itchiness w/in irrad'd area; also given aquaphor ointment. Phytoplex cream. Baking soda & salt gargle; declines BMX. Pain Management: Ibuprofen. Recommendation on Continuing Course of xrt: Continue. 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
--- OUTSIDE RECORDS SUMMARY | 2024-05-09 14:02 | XMS_ITS | Encounter Summary ---
Author Organization [facility] Address [facility] [place] [address] Care Team Providers Care [employer] Supervisor Name Role Phone Charleen Williamson APRN Primary Care Provider [phone] Encounter Details Date Type Department Care Team (Late st Contact Info) Description 05/02/2021 Orders Only Hematology [place] [phone] Omid Manning MD [facility] [address] [place]AT[place] [address] Social History Tobacco Use Types Packs/Day Years [...] EDT Office Visit Radiation Oncology at [address] [phone] [address] [facility] [place] [address] documented as of this encounter Visit Diagnoses Not on filedocumented in this encounter Care Teams [employer] Supervisor Relationship Specialty Start Date End Date Charleen Williamson APRN [address] [place] [address] PCP - General Family Medicine 06/29/20 documented as of this encounter
--- OUTSIDE RECORDS SUMMARY | 2024-05-09 14:02 | XMS_ITS | Encounter Summary ---
Author Organization [facility] Address [facility] [place] [address] Care Team Providers Care Wheel Setter Name Role Phone Charleen Williamson APRN Primary Care Provider [phone] Reason for Visit * Reason Comments Injections SC zoladex * Treatment/Therapy Plan Authorization (Routine) - Closed Specialty Diagnoses / Procedures Referred By Fawn weston Referred To Contact Diagnoses 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, estrogen receptor positive Procedures INJ, ADO-TRASTUZUMAB EMT 1MG TC GOSERELIN ACETATE IMPLANT, 3.6MG (ZOLADEX) TC PALONOSETRON HCL, 25MCG, INJECTION (ALOXI) Tyra Cornejo MD [facility] [address] [place] [address] [facility] Hem Onc Office [address] [place] [phone] Referral ID Status Reason Start Date Expiration Date Visits Re quested Visits Authorized [id number] Closed 03/01/2021 04/26/2022 99 99 Encounter Details Date Type Department Care Team (Late st Contact Info) Description 05/03/2021 10:30 AM EST Infusion Hematology Oncology at [address] [phone] Malignant neoplasm of overlapping sites [...] Sign Reading Time Taken Comments Blood Pressure 112/68 05/03/2021 10:29 AM EST Pulse 82 05/03/2021 10:29 AM EST Temperature 36.9 ??C (98.4 ??F) 05/03/2021 1 0:29 AM EST Respiratory Rate 20 05/03/2021 10:2 9 AM EST Oxygen Saturation 99% 05/03/2021 10: 29 AM EST Inhaled Oxygen Concentration - - Weight 85 kg (187 lb 6.4 oz) 05/03/2021 10:29 AM EST with boots on Height 175.3 cm (5' 9.02) 05/03/2021 1 0:29 AM EST Body Mass Index 27.66 05/03/2021 10:29 AM EST documented in this encounter Progress Notes * Cheryl Nuñez RN - 05/03/2021 10:30 AM EST INFUSION THERAPY ADMINISTRATION NOTES DIAGNOSIS: Breast Cancer CYCLE #: Ongoing REASON FOR VISIT: SQ zoladex SUBJECTIVE: Alis Silva offers no complaints. OBJECTIVE: VSS LAB DATA: NA IV ACCESS: NA Pre administration: Chemotherapy orders independently verified for drug name, route, and dosage per patient's height, weight and BSA by Cheryl Nuñez, DENISE and Staff Pharmacist(s). REACTIONS (DESCRIPTION, TIME, INTERVENTION AND EFFECTIVENESS) none ASSESSMENT: Alis Silva was awake, alert and tolerated treatment well. Injection administered in RLQ. PLAN: Return to clinic per routine. documented in this encounter Plan of Treatment Upcoming Encounters Date Type Department Care Team (Late st Contact Info) Description 02/13/2025 1:00 PM EDT Office Visit Radiation Oncology at [address] [phone] Eleonora Mensah MD [facility] [place] [address] documented as of this encounter Visit Diagnoses Diagnosis 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, estrogen receptor positive documented in this encounter Administered Medications Inactive Administered Medications - up to 3 most recent administrations Medication Order MAR Action Action Date Dose Rate Site goserelin (ZOLADEX) implant 3.6 mg 3.6 mg, Subcutaneous, ONCE, 1 dose, On Thu05/03/21 at 1100, Routine, This agent is restricted to outpatient use. Is this drug being given as an outpatient? Yes Given 05/03/2021 11:13 AM EST 3.6 mg Right Lower Quadrant lidocaine (Xylocaine) 1% (10 mg/mL) injection 10 mg 10 mg (1 mL), Subcutaneous, ONCE, 1 dose, On Thu05/03/21 at 1100, Order either Ice or lidocaine for the injection. Inject up to 3 mL, Routine Given 05/03/2021 11:00 AM EST 10 mg documented in this encounter Care Teams Wheel Setter Relationship Specialty Start Date End Date Charleen Williamson APRN [address] [place] [address] PCP - General Family Medicine 06/29/20 documented as of this encounter
--- OUTSIDE RECORDS SUMMARY | 2024-05-09 14:02 | XMS_ITS | Encounter Summary ---
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 Social History Tobacco Use Types Packs/Day Years [...] Sign Reading Time Taken Comments Blood Pressure 118/65 05/21/2021 10:57 AM EST Pulse 91 05/21/2021 10:57 AM EST Temperature 37.2 ??C (99 ??F) 05/21/2021 10: 57 AM EST Respiratory Rate 18 05/21/2021 10:5 7 AM EST Oxygen Saturation 99% 05/21/2021 10: 57 AM EST Inhaled Oxygen Concentration - - Weight 84.5 kg (186 lb 3.2 oz) 05/21/19 22 10:57 AM EST with boots Height - - Body Mass Index 27.48 05/03/2021 10:29 AM EST documented in this encounter Patient Instructions * Patient Instructions* Jc Mensah MD - 05/21/2021 10:45 AM EST Prescription for silvadene sent to [facility]'s. Apply small amount to back of left hand & if no reaction within 48 hours, may then apply to irradiated area as often as needed, just not within 2 hours prior to radiotherapy. documented in this encounter Progress Notes * Jc Mensah MD - 05/21/2021 10:45 AM EST Images from the original note were not included. DIAGNOSIS: 30 y/o premenopausal female w/central breast ca, R, invasive ca w/ductal & lobular features, gr 2, ER+NV+, Her2+, cT3 cN1, s/p neoadjuvant TCHP, followed by R mastectomy w/NLOC excision clipped R axillary lymph node, unsuccessful SNB, ypT1b(m) ypN1mi, +LVI. Randomized on [id number] to ax dissxn, removing 13 lymph nodes, all neg. Xrt off protocol. Adjuvant TDM-1 concomitant w/xrt. On zoladex. Cabrera after xrt completion. ?? CURRENT TREATMENT DOSE: 42 Gy R supraclav, R axilla, R chest wall ANTICIPATED TOTAL DOSE: 50 Gy R supraclav, R axilla, R chest wall; 60 Gy mastectomy scar Current # of xrt received: 21 Anticipated total # of xrt txs: 30 Evaluation of port verification films: Approved. For details, see electronic film record in [employer]. Changes in Medical Condition: Rash (possibly from TDM-1) on legs less, seen by Heme-Onc PEDIATRICS HOSPITALIST yesterday w/rec to follow. Itchiness of skin w/in irrad'd area, incompletely relieved by phytoplex cream. Soreness of throat less, relieved by baking soda & salt mouth rinse/gargle. Back pain, longstanding, managed w/ibuprofen & chiropracter; bothers her when lying on xrt tx table. Tried tylenol for B shoulder pain when on xrt tx table, but it bothered stomach, prefers to deal w/shoulder pain w/o medication. Pain?: See above. Your Medications Accurate as of May 21, 2021 11:29 AM. If you have any questions, ask your nurse or doctor. New Medications Dose Details silver sulfADIAZINE 1 % Crea Commonly known as: Silvadene Apply as often as needed to irradiated area. Started by: JC MENSAH MD Quantity: 50 g Refills: 0 Continued medications, unchanged Dose Details acetaminophen 500 [...] Refills: 0 Miscellaneous Medical Supply Misc by [facility].(Non-Drug; Combo Route) route. Remedy Phytoplex Moisturizer. Apply [...] TWICE DAILY Refills: 0 Physical Exam: BP 118/65 (Patient Position: Sitting) Pulse 91 Temp 37.2 ??C (99 ??F) (Temporal) Resp 18 Wt 84.5 kg (186 lb 3.2 oz) Comment: with boots SpO2 99% BMI 27.48 kg/m?? A&Ox3, NAD. Irrad'd area w/moderate erythema. Amb stable. Imagin03/19/21 Dx'ic Rad Interp CTsim: No suspicious lesion. Performance Status: KPS 100% Response to xrt: As expected. Irradiation Related Symptoms: Skin rxn. Pharyngitis/esophagitis. Treatment for Symptom Control: Rx for silvadene. 1% htc recommended for itchiness w/in irrad'd area; also given aquaphor ointment. Phytoplex cream. Baking soda & salt gargle; declines BMX. Pain Management: Ibuprofen. Recommendation on Continuing Course of xrt: Continue. 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
--- OUTSIDE RECORDS SUMMARY | 2024-05-09 14:02 | XMS_ITS | Encounter Summary ---
Author Organization [facility] Address [facility] [place] [address] Care Team Providers Care Rug Receiving Clerk Name Role Phone Charleen Williamson APRN Primary Care Provider [phone] Reason for Visit * Treatment/Therapy Plan Authorization (Routine) - Closed Specialty Diagnoses / Procedures Referred By Contac t Referred To Contact Diagnoses 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, estrogen receptor positive Procedures INJ, ADO-TRASTUZUMAB EMT 1MG TC GOSERELIN ACETATE IMPLANT, 3.6MG (ZOLADEX) TC PALONOSETRON HCL, 25MCG, INJECTION (ALOXI) Tyra Cornejo MD [facility] DR HEMATOLOGY [place] [address] [facility] Hem Onc Office [address] [place] [phone] Referral ID Status Reason Start Date Expiration Date Visits Re quested Visits Authorized [id number] Closed 03/01/2021 04/26/2022 99 99 Encounter Details Date Type Department Care Team (Latest Contact Info) Description 07/03/2021 8:20 AM EST - 07/03/2021 11:59 PM EST Hospital Encounter Hematology [place] [phone] Malignant neoplasm of overlapping sites of right [...] 8 HOURS NEEDED FOR ANXIETY 07/09/2020 tamoxifen (NOLVADEX) 20 mg Tablet Take 1 [...] as of this encounter Progress Notes * AshleighNikki york RN - 07/03/2021 12:41 PM EST Patient Name: Alis Silva Patient Age: 30 y.o. Birthdate: 1990 Admit date: 07/03/2021 Attending Physician: Shila att. providers found Alis Silva, 30 y.o. female with diagnosis of 1. 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, estrogen receptor positive is here for chemotherapy infusion of Kadycla/Zolodex. PROTOCOL: no CYCLE: 4 WEEK: n/a DAY: 1 S: Pt. offers complaints 09/03 to right arm r/t radiation. Patient did speak to NOA Moffett about this today. Declined taking any medication and did not want to at this time. Reviewed plan of care for infusion visit, patient verbalized understanding of plan as outlined. O: Chemotherapy orders independently verified for correct drug name, route and dosage per patient'sheight, weight and BSA by aMrnie Sotelo RN and onsite pharmacist. REACTIONS (DESCRIPTION, TIME, INTERVENTION AND EFFECTIVENESS) None reported. A: Alis Silva tolerated treatment well and confirms that all questions and issues have been addressed. P: Return to clinic as scheduled. documented in this encounter Plan of Treatment Upcoming Encounters Date Type Department Care Team (Late st Contact Info) Description 02/13/2025 1:00 PM EDT Office Visit Radiation Oncology at [address] [phone] Eleonora Mensah MD [facility] [place] [address] documented as of this encounter Results * Comprehensive metabolic panel (non-fasting) (07/03/2021 8:50 AM EST) Glucose 128 65 - 199 mg/dL [facility] Comment:Diabetes: >=200 mg/d L plus symptoms Blood Urea Nitrogen 11 8 - 18 mg/dL [facility] Creatinine 0.78 0.70 - 1.20 mg/dL [facility] Sodium 138 135 - 145 mmol/L [facility] Potassium 3.9 3.5 - 5.0 mmol/L [facility] Comment: Please note: ??Patients with WBC >100,000 may have falsely elevated Potassium levels. ??For accurate Potassium quantification in these patients send serum separator tube (gold top) for subsequent determinations. ??Contact the Clinical Chemistry Laboratory if there are any questions. Chloride 100 98 - 107 mmol/L [facility] Carbon Dioxide 27 22 - 31 mmol/L [facility] Anion Gap 11 5 - 15 mmol/L [facility] Calcium 9.7 8.5 - 10.5 mg/dL [facility] Protein, Total 8.0 6.1 - 8.0 g/dL [facility] Albumin 4.2 3.2 - 5.2 g/dL [facility] Aspartate Aminotransferase 27 0 - 30 unit/L [facility] Alanine Aminotransferase 22 0 - 30 unit/L [facility] Alkaline Phosphatase 87 35 - 105 unit/L [facility] Bilirubin, Total 0.2 0.2 - 1.3 mg/dL [facility] Est Glomerular Filtration Rate 103 >=60 mL/min/1. 73 m?? [facility] Comment: This patient? s estimated glomerular filtration rate (eGFR) is between 103 mL/min/1.73 m2 (patients with less muscle mass) and 120 mL/min/1.73 m2 (patients with more muscle mass) [...] and symptoms in addition to eGFR. Blood 07/03/2021 8:50 AM EST 07/03/2021 9:04 AM EST Narrative Resulting Agency Comment Spec In Lab Tyra Cornejo MD CHEMISTRY ORDERABLE S Performing Organization Address [facility] de Phone Number [facility] [place] [address] * Follicle Stimulating Hormone (07/03/2021 8:50 AM EST) Follicle Stimulating Hormone 3.7 mlU/ML [facility] Comment: Reference Ranges Male: ? 1.5-12.4 mIU/mL Female ?? Follicular: ?3.5-12.5 mIU/mL ?? Ovulation: ? 4.7-21.5 mIU/mL ?? Luteal: ?1.7-7.7 mIU/mL ?? Postmenopausal: ?25.8-134.8 mIU/mL Blood 07/03/2021 8:50 AM EST 07/03/2021 9:04 AM EST Narrative Resulting Agency Comment Spec In Lab Tyra Cornejo MD CHEMISTRY ORDERABLE S Performing Organization Address [facility] de Phone Number [facility] [place] [address] * Estradiol (07/03/2021 8:50 AM EST) Estradiol <5 pg/mL [facility] Comment: Reference ranges: Males: Adult: ? 11 to 43 pg/mL Females: Non- females: ?Follicular: ??12-233 pg/mL ?Ovulation: ?? 41-398 pg/mL ?Luteal: ?22-341 pg/mL ?Postmenopausal: ?? <5 - 138 pg/mL females: ?1st trimester: ??154-3243 pg/mL ?2nd trimester: ??1561-09255 pg/mL ?3rd trimester: ??8525- >13446 pg/mL Blood 07/03/2021 8:50 AM EST 07/03/2021 9:04 AM EST Narrative Resulting Agency Comment Spec In Lab Tyra Cornejo MD CHEMISTRY ORDERABLE S [facility] [place] [address] documented in this encounter Visit Diagnoses Diagnosis [...] 300 mg, Intravenous, ONCE, 1 dose, On Thu07/03/21 at 1215, Administer over 30 Minutes, Monitor patient for ado-trastuzumab emtansine infusion reactions 30 minutes after each subsequent dose if the first dose was well-tolerated. Dose Ordered = 303 mg (3.6 mg/kg). Pharmacist rounded dose per procedure., This agent is restricted to outpatient use. Is this drug being given as an outpatient? Yes New Bag 07/03/2021 12:07 PM EST 300 mg 530 mL/hr dexamethasone (PF) (Decadron) (10 mg/mL) injection 10 mg 10 mg, Intravenous, ONCE, 1 dose, On Thu07/03/21 at 1115 Given 07/03/2021 11:47 AM EST 10 mg goserelin (ZOLADEX) implant 10.8 mg 10.8 mg, Subcutaneous, ONCE, 1 dose, On Thu07/03/21 at 1115, Routine, This agent is restricted to outpatient use. Is this drug being given as an outpatient? Yes Given 07/03/2021 12:23 PM EST 10.8 mg Abdominal Tissue heparin (pf) (porcine) (100 units/mL) flush 5 mL syringe 500 Units 500 Units, Intravenous, ONCE PRN, Starting on Thu07/03/21 at 1057, Until Alannah 07/04/21 at 0434, Line Care, Refer to Intravenous (IV) Procedure: Accessing Implanted Vascular Access Devices (654) procedure and/or Intravenous (IV) Job Aid: Adult Flushing & Catheter Care (1365) job aid for additional information regarding guidelines and administration., Routine Given 07/03/2021 1:07 PM EST 500 Units palonosetron (Aloxi) (0.05 mg/mL) injection 0.25 mg 0.25 mg, Intravenous, ONCE, 1 dose, On Thu07/03/21 at 1115, Routine Given 07/03/2021 11:45 AM EST 0.25 mg sodium chloride 0.9 % (flush) (BD PosiFlush Normal Saline 0.9) flush 5-20 mL 5-20 mL, Intravenous, EVERY 1 MIN PRN, Starting on Thu07/03/21 at 1057, Until Alannah 07/04/21 at 0434, Line Care, Flush pertains to all indwelling lines. Flush per protocol found in the job aid using the link provided on this medication record. Refer to Intravenous (IV) Job Aid: Adult Flushing & Catheter Care (2818) job aid for additional information regarding guidelines and administration., Routine Given 07/03/2021 1:06 PM EST 20 mLs documented in this encounter Care Teams Rug Receiving Clerk Relationship Specialty Start Date End Date Charleen Williamson APRN [address] [place] [address] PCP - General Family Medicine 06/29/20 documented as of this encounter
--- OUTSIDE RECORDS SUMMARY | 2024-05-09 14:02 | XMS_ITS | Encounter Summary ---
Author Organization [facility] [place] [address] Care Team Providers Care College Hire Name Role Phone Charleen Williamson APRN Primary Care Provider [phone] Reason for Referral * Physical Therapy (Routine) - Closed Specialty Diagnoses / Procedures Referred By Contac t Referred To Contact Physical Therapy Diagnoses Malignant 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, estrogen receptor positive Fatigue, unspecified type Physical deconditioning Barbara Cain PA [facility] [place] [address] Referral ID Status Reason Start Date Expiration Date V isits Requested Visits Authorized [id number] Closed Evaluate and Treat 07/03/2021 12/30/2021 12 12 * Consultation (Routine) - Closed Specialty Diagnoses / Procedures Referred By Contac t Referred To Contact Hematology and Oncology Diagnoses Malignant 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, estrogen receptor positive Adjustment disorder with mixed anxiety and depressed mood Barbara Cain PA [facility] [place] [address] [facility] Onc [address] [place] [address] Referral ID Status Reason Start Date Expiration Date V isits Requested Visits Authorized [id number] Closed Consult, Test & Treat 07/03/2021 07/03/2022 1 1 Reason for Visit * Reason Comments Follow-up Encounter Details Date Type Department Care Team (Latest Contact Info) Description 07/03/2021 9:45 AM EST Office Visit Hematology and Oncology at [facility] [place] [address] Barbara Cain PA Malignant 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, estrogen receptor positive; Adjustment disorder with mixed anxiety and depressed mood; Fatigue, unspecified type; Physical deconditioning Social History Tobacco Use Types Packs/Day Years [...] Sign Reading Time Taken Comments Blood Pressure 128/82 07/03/2021 9:36 AM EST Pulse 86 07/03/2021 9:36 AM EST Temperature 36.3 ??C (97.3 ??F) 07/03/2021 9:36 AM ES T Respiratory Rate 16 07/03/2021 9:36 AM EST Oxygen Saturation 97% 07/03/2021 9:36 AM EST Inhaled Oxygen Concentration - - Weight 84.8 kg (187 lb) 07/03/2021 9:36 AM EST Height 175 cm (5' 8.9) 07/03/2021 9:36 AM EST Body Mass Index 27.7 07/03/2021 9:36 AM EST documented in this encounter Progress Notes * Barbara Cain PA - 07/03/2021 9:45 AM EST [facility] Breast Oncology Clinic: Follow-up Visit Identification: 30 y.o. female with locally advanced right breast cancer; s/p neoadjuvant chemotherapy with TCHP, R mastectomy/ALND; currently on adjuvant T- DM1 for residual disease. Medical Oncologist: Tyra Cornejo MD Interim History: Alis presents today for 3-week follow-up on adjuvant T-DM1. She's doing okay. Started doing more stretches and is now having arm pain over lateral upper arm. Remains fatigued; ableto work 3 hrs at a time; takes naps. Not exercising much but got a puppy (goldendoodle named Davis)! She feels tired and nauseous for a few days after each infusion. Bowels normal. Hot flashes and night sweats daily, no change since starting tamoxifen on 06/18/21. Has not noticed any mood changes, increased nausea, headache, dizziness, muscle cramping, or other side effects. Review of Systems: General: Denies fevers, appetite changes. Reports feeling cold, fatigue. Skin: Denies rashes, new skin lesions. HEENT: Denies headaches, double vision, dental pain, mouth sores. Pulm: Denies cough. Reports intermittent dyspnea with activity/stairs. CV: Denies chest pain, palpitations. Extremities: Denies peripheral edema, leg swelling/pain/redness. Breast: Denies new masses, nipple discharge, breast pain. Lymph: Denies lymphadenopathy, lymphedema. GI: Denies vomiting, heartburn, diarrhea, constipation, hematochezia, melena. Reports occ abdominaldiscomfort. : Denies dysuria, hematuria. Repro: Premenopausal. Previously on Depot Provera q3 months, last dose early June 2020. Currently receiving goserelin. No vaginal bleeding. Denies abnormal vaginal bleeding, vaginal dryness or irritation. Heme: Denies bleeding, easy bruising. MSK: Denies new or worsening skeletal pain, joint pains, myalgias. Has occ farris/ankle aching. Neuro: Denies dizziness, lightheadedness, weakness, balance problems. Reports intermittent numbness/tingling in fingertips/toes, stable. Reports forgetfulness. Psych: Denies depression, insomnia. Reports anxiety. On sertraline, propranolol, hydroxyzine. Breast Cancer History: Diagnosis: - 29 yo self-palpated a mass under the right nipple when she noticed it had inverted at the end of May 2020. 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 - Not eligible for adjuvant tucatinib trial due to participation in the [place] axillary management trial. - TDM-1 q3 wks [...] in female, estrogen receptor positive C50.911, Z17.0 Meds: Miscellaneous Medical Supply, acetaminophen, acetylcysteine, clotrimazole, hydrOXYzine, ibuprofen, lactobacillus rhamnosus (GG), lidocaine-prilocaine, loratadine, melatonin, omeprazole, ondansetron ODT, prochlorperazine, propranoloL, sertraline, silver sulfADIAZINE, tamoxifen, traZODone, and triamci nolone FH/Genetics: family history includes Breast Cancer (age of onset: 83) in her paternal grandmother; Ovarian Cancer (age of onset: 50) in her paternal aunt; Uterine Cancer (age of onset: 50) in her paternal aunt. 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 - VUS was detected in the following genes: Gene Variant RET c.2982A>C (p.[id number]) SDHB c.482A>G (p.[id number]) SH: No smoking No current EtOH to [employer] occ on [employer] / unemployed Vitals: Patient Vitals for the past 24 hrs: Temp Pulse Resp BP SpO2 07/03/21 0936 36.3 ??C (97.3 ??F) 86 16 128/82 97 % Wt Readings from Last 3 Encounters: 07/03/21 84.8 kg (187 lb) 06/17/21 85.5 kg (188 lb 9.6 oz) 06/12/21 83 kg (183 lb) Physical Exam: Vitals reviewed. General: A&Ox3. Well-developed and well-nourished. No acute distress. Head: Normocephalic, atraumatic. Eyes: EOMs intact. Conjunctiva pink. No scleral icterus. Mouth: Good dentition. No oral erythema, exudates, or ulcerations. Neck: Supple, nontender. No cervical or supraclavicular lymphadenopathy. No thyromegaly. Chest: Port site (left) accessed. No tenderness. Cardiovascular: Normal rate, regular rhythm. No murmurs appreciated. No peripheral edema. Pulmonary: Breathing comfortably on room air. Lungs clear to auscultation bilaterally without wheezes, rhonchi, or crackles. Breasts: ?? Right: s/p mastectomy, incision well healed. No palpable axillary nodes. Cording of axilla with limited right arm ROM. ??? Left: There are no suspicious masses, skin changes, nipple changes, or palpable axillary nodes. Musculoskeletal: No spinal or pelvic tenderness upon palpation. No TTP of upper right arm. Neurological: Gait normal. No focal deficits noted. Skin: Warm and dry. No rashes noted. Psychiatric: Mood is anxious. Affect is mood-congruent. Insight is good. Thought-content is normal,future-oriented. Results: Lab Results Component Value Date WBC 5.1 07/03/2021 HGB 12.2 07/03/2021 HCT 35.1 (L) 07/03/2021 MCV 88.2 07/03/2021 PLATELET 180 07/03/2021 Lab Results Component Value Date NEUTROABS 3.17 07/03/2021 Lab Results Component Value Date NA 138 07/03/2021 K 3.9 07/03/2021 CL 100 07/03/2021 CO2 27 07/03/2021 BUN 11 07/03/2021 CREATININE 0.78 07/03/2021 GLUCOSE 128 07/03/2021 CALCIUM 9.7 07/03/2021 ESTGFR 103 07/03/2021 Lab Results Component Value Date ALT 22 07/03/2021 AST 27 07/03/2021 ALKPHOS 87 07/03/2021 BILITOT 0.2 07/03/2021 ALBUMIN 4.2 07/03/2021 PROT 8.0 07/03/2021 No results found for: TSH Baseline TTE 07/20/20: EF 62% TTE 12/06/20: EF = 54% TTE 02/20/21: EF = 59% TTE 06/26/21: EF = 61% Assessment & Plan: Alis is a 30 y.o. woman with a large, node+, ER/[place]+ HER2+ breast cancer, partial pathologic response to neoadjuvant TCHP [[id number]], s/p mastectomy/ALND, RT, and is now receiving adjuvant T-DM1 for residual disease per [facility]. She started tamoxifen on 06/18/21 and continues on ovarian suppression. She is tolerating treatment with minimal treatment related toxicities. Laboratory results are within acceptable limits to proceed with treatment today. #Breast cancer ?? Continue with adjuvant T-DM1, cycle 4 ?? Goserelin 10.8 mg q12 weeks ?? Left mammo scheduled 08/15, will discuss ?indication for MRI screening with Dr. Hunt #Treatment monitoring for toxicity ?? Laboratory results are within acceptable limits to proceed with treatment today. ?? Cardiovascular monitoring: TTE repeated 06/26/21 and stable #Symptom management ?? Nausea: premed Zofran changed to Aloxi ?? Fatigue: encouraged exercise; PT referral locally for deconditioning and exercise post-tx; TSH at next visit #Psychosocial ?? Continue anxiety med management with PCP ?? Referral for short term counseling here. LOGISTICS ASSOCIATE to assist with keno terminal operator counseling referral. All questions answered, many about recurrence/surveillance. Total time spent on the date of the encounter: 50 minutes (Includes time spent reviewing prior notes and tests, obtaining a history, performing an exam, counseling and education, coordination of care, ordering medications/tests, placing referrals, interpreting results, and documenting in the chart). Barbara Cain PA-C Medical Oncology - Breast & GI Cancers [facility] Pager - [phone] Future Appointments Date Time Provider Department Center 07/24/2021 11:30 AM ACCESS ROOM [facility] [place] [address] [place] [address] 07/24/2021 1:30 PM Barbara Cain PA [facility] [place] [facility] 07/24/2021 3:00 PM [facility] INFUSION THERAPY [facility] [address] [place] [address] 08/14/2021 12:15 PM ACCESS ROOM [facility] [address] [place] [address] 08/14/2021 1:30 PM Tyra Cornejo MD [facility] [place] [facility] 08/14/2021 3:00 PM [facility] INFUSION THERAPY [facility] [address] [place] [address] 08/15/2021 10:10 AM [facility] DB CINDY ROOM 2 MH Mammo [facility] Rad 08/15/2021 11:00 AM Eulalio Hunt MD [facility] [place] [facility] 09/04/2021 12:15 PM ACCESS ROOM [facility] [address] [place] [address] 09/04/2021 1:30 PM Barbara Cain PA [facility] [place] [facility] 09/04/2021 3:00 PM [facility] INFUSION THERAPY [address] documented in this encounter Plan of Treatment Upcoming Encounters Date Type Department Care Team (Late st Contact Info) Description 02/13/2025 1:00 PM EDT Office Visit Radiation Oncology at [address] [phone] Eleonora Mensah MD [facility] [place] [address] Scheduled Referrals Name Type Priority Associated Diagnoses Orde r Schedule Referral to [facility] Psychiatry (Cancer Center Only) Outpatient Referral Routine Malignant 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, estrogen receptor positive Adjustment disorder with mixed anxiety and depressed mood Ordered: 07/03/2021 Referral to Physical Therapy Outpatient Referral Routine Malignant 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, estrogen receptor positive Fatigue, unspecified type Physical deconditioning Ordered: 07/03/2021 documented as of this encounter Visit Diagnoses Diagnosis Malignant 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, estrogen receptor positive Adjustment disorder with mixed anxiety and depressed mood Fatigue, unspecified type Physical deconditioning Debility, unspecified documented in this encounter Care Teams College Hire Relationship Specialty Start Date End Date Charleen Williamson APRN [address] [place] [address] PCP - General Family Medicine 06/29/20 documented as of this encounter
--- OUTSIDE RECORDS SUMMARY | 2024-05-09 14:02 | XMS_ITS | Encounter Summary ---
Author Organization [facility] Address [facility] [place] [address] Care Team Providers Care Welt Sewer Name Role Phone Charleen Williamson APRN Primary Care Provider +1 [phone] Encounter Details Date Type Department Care Team (Late st Contact Info) Description 07/22/2021 Orders Only [place]ology [place] [phone] Tyra Cornejo MD [facility] [address] [place] [address] Social History Tobacco Use Types Packs/Day Years [...] EDT Office Visit Radiation Oncology at [address] [phone] Eleonora Mensah MD [facility] [place] [address] documented as of this encounter Visit Diagnoses Not on filedocumented in this encounter Care Teams Welt Sewer Relationship Specialty Start Date End Date Charleen Williamson APRN [address] [place] [address] PCP - General Family Medicine 06/29/20 documented as of this encounter
--- OUTSIDE RECORDS SUMMARY | 2024-05-09 14:02 | XMS_ITS | Encounter Summary ---
Author Organization [facility] Address [facility] [place] [address] Care Team Providers Care Rotary Swaging Machine Operator Name Role Phone Charleen Williamson APRN Primary Care Provider +1 [phone] Reason for Visit * Reason Comments On Treatment Visit Encounter Details Date Type Department Care Team (Late st Contact Info) Description 05/07/2021 11:15 AM EST Office Visit Radiation Oncology at [address] [phone] Eleonora Mensah MD [facility] [place] [address] Hormone receptor positive malignant neoplasm of right [...] Sign Reading Time Taken Comments Blood Pressure 113/76 05/07/2021 10:00 AM EST Pulse 79 05/07/2021 10:00 AM EST Temperature 36.1 ??C (97 ??F) 05/07/2021 10: 00 AM EST Respiratory Rate 17 05/07/2021 10:0 0 AM EST Oxygen Saturation 100% 05/07/2021 10: 00 AM EST Inhaled Oxygen Concentration - - Weight 84.3 kg (185 lb 12.8 oz) 022 10:00 AM EST with boots Height - - Body Mass Index 27.43 05/03/2021 10:29 AM EST documented in this encounter Patient Instructions * Patient Instructions* Eleonora Mensah MD - 05/07/2021 11:15 AM EST The sore throat may be from radiotherapy. Mix 1 teaspoon salt + 1 teaspoon baking soda + 1 quart lukewarm water. Gargle with mixture 3 times/day. documented in this encounter Progress Notes * Eleonora Mensah MD - 05/07/2021 11:15 AM EST Images from the original note were not included. DIAGNOSIS: 30 y/o premenopausal female w/central breast ca, R, invasive ca w/ductal & lobular features, gr 2, ER+[place]+, Her2+, cT3 cN1, s/p neoadjuvant TCHP, followed by R mastectomy w/NLOC excision clipped R axillary lymph node, unsuccessful SNB, ypT1b(m) ypN1mi, +LVI. Randomized on [id number] to ax dissxn, removing 13 lymph nodes, all neg. Xrt off protocol. Adjuvant TDM-1 concomitant w/xrt. On zoladex. Cabrera after xrt completion. ?? CURRENT TREATMENT DOSE: 22 Gy R supraclav, R axilla, R chest wall ANTICIPATED TOTAL DOSE: 50 Gy R supraclav, R axilla, R chest wall; 60 Gy mastectomy scar Current # of xrt received: 11 Anticipated total # of xrt txs: 30 Evaluation of port verification films: Approved. For details, see electronic film record in [email or web address] System. Changes in Medical Condition: A new rash on legs over past wk, not itchy, she thinks is from TDM-1,no new detergent/soap/lotion/med. Mild soreness of throat. Back pain, longstanding, managed w/ibuprofen & chiropracter (last visit several wks ago) bothers her when lying on xrt tx table. Managing w/tylenol prior to xrt for B shoulder pain when on xrt tx table w/arms up. Mild pinkening of irrad'd area. Zoladex given 05/03/21. Pain?: See above. Your Medications Accurate as of May 07, 2021 10:58 AM. If you have any questions, ask [...] Refills: 0 Miscellaneous Medical Supply Misc by Misc.(Non-Drug; Combo Route) route. Remedy Phytoplex Moisturizer. Apply [...] TWICE DAILY Refills: 0 Physical Exam: BP 113/76 (Patient Position: Sitting) Pulse 79 Temp 36.1 ??C (97 ??F) (Temporal) Resp 17 Wt 84.3 kg (185 lb 12.8 oz) Comment: with boots SpO2 100% BMI 27.43 kg/m?? A&Ox3, NAD. Intraoral exam shows moist mucosa w/o mucositis/thrush/lesion. Irrad'd area w/minimal erythema. A few 1 mm minimal erythematous crusted areas on L lower leg. Amb stable. Imagin03/19/21 Dx'ic Rad Interp CTsim: No suspicious lesion. Performance Status: KPS 100% Response to xrt: As expected. Irradiation Related Symptoms: Pharyngitis/esophagitis. Skin rxn. Treatment for Symptom Control: Baking soda & salt gargle; declines BMX. Phytoplex cream. Pain Management: Tylenol/ibuprofen. Recommendation on Continuing Course of xrt: Continue. Notify Dr. Manning about possible skin eruption after TDM-1. documented in this encounter Plan of Treatment Upcoming Encounters Date Type Department Care Team (Late st Contact Info) Description 02/13/2025 1:00 PM EDT Office Visit Radiation Oncology at [address] [phone] Eleonora Mensah MD [facility] [place] [address] documented as of this encounter Visit Diagnoses Diagnosis Hormone receptor positive malignant neoplasm of right breast documented in this encounter Care Teams Rotary Swaging Machine Operator Relationship Specialty Start Date End Date Charleen Williamson APRN [address] [place] [address] PCP - General Family Medicine 06/29/20 documented as of this encounter
--- OUTSIDE RECORDS SUMMARY | 2024-05-09 14:02 | XMS_ITS | Encounter Summary ---
Author Organization [facility] Address [facility] [place] [address] Care Team Providers Care High School Football Coach Name Role Phone Charleen Williamson APRN Primary Care Provider +1 [phone] Reason for Visit * Reason Comments Follow-up Encounter Details Date Type Department Care Team (Late st Contact Info) Description 06/12/2021 9:00 AM EST Office Visit Hematology [place] [address] Tyra Cornejo MD [facility] [address] [place] [address] Randi Schwarz MD HER2-positive carcinoma of right breast; Encounter for chemotherapy management Social History Tobacco Use Types Packs/Day [...] Sign Reading Time Taken Comments Blood Pressure 127/83 06/12/2021 8:57 AM EST Pulse 82 06/12/2021 8:57 AM EST Temperature 37.1 ??C (98.8 ??F) 06/12/2021 8:57 AM ES T Respiratory Rate 16 06/12/2021 8:57 AM EST Oxygen Saturation 97% 06/12/2021 8:57 AM EST Inhaled Oxygen Concentration - - Weight 83 kg (183 lb) 06/12/2021 8:57 AM EST Height 175.3 cm (5' 9.02) 06/12/2021 8:57 AM ES T Body Mass Index 27.01 06/12/2021 8:57 AM EST documented in this encounter Progress Notes * Randi Schwarz MD - 06/12/2021 9:00 AM EST Patient ID: Alis Silva is a 30 y.o. female. ?? CC: breast cancer follow-up Interval history: Alis presents for consideration of cycle 3 of TDM1. Completed RT on 06/03 She reports fatigue with more effort needed to complete daily tasks. 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 She denied new breast changes, no new lumps/swelling under the arm or in the neck Her appetite is not bad, has nausea sometimes compazine and zofran are used infrequently. She is the most nauseous after infusions. No abdominal pain, diarrhea or constipation She has dyspnea with exertion, which is stable She described hot flashes at least once daily. Also, has joint pain and stiffness of the hands, particularly in the morning but this gets better throughout the day. No formal exercise routine HPI:?? 30 y.o. self-palpated a mass under the right nipple when she noticed it had inverted at the end of May 2020. 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 ?? R ALN bx + metastatic carcinoma. CT and bone scan negative for distant metastases cT2N1 grade 2/3 Stage IB Echo 07/20 normal Port placed and genetic testing sent 07/23/20 Fertility preservation referral, with egg harvest tentatively planned for 08/12/20, last depo provera shot 06/17 Ovarian suppression to improve chance of ovarian recovery planned for 08/13/20 2nd covid vaccination planned 08/14 Cycle 1 TCH-P 08/17/20, completed 6 cycles S/p mastectomy and sentinel node : 13 cm tumor bed with scattered foci of invasive disease, + LVI, 1 node with microscopic disease. Consented to [place] trial evaluating axillary dissection vs RT and randomized to dissection: 0/13nodes positive. Not eligible for adjuvant tucatinib trial due to participation in the [place] axillary management trial. TDM-1 q 3 wks x 14 cycles planned as per LUIS trial results showing improved PFS with TDM-1 compared to trastuzumab in those who did not achieve a path CR with NAC. ?? Fhx: PGM with breast cancer in her 80's; paternal aunt with ovarian ca; 2 brothers without cancer; no cousins with breast or ovarian cancer. menses age 14 to present; no menses while on Depo provera. 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 Review of Systems Constitutional: Positive for activity change. Tired by ADL's., not working due to fatigue. HENT: Negative for nosebleeds. Eyes: Negative. Respiratory: As above Gastrointestinal: Mild nausea Endocrine: Negative. Genitourinary: Negative. Musculoskeletal: Negative. Skin: Negative. Allergic/Immunologic: Negative. Neurological: Negative. Psychiatric/Behavioral: Negative. ? Objective: Physical Exam Constitutional: General: She is not in acute distress. HENT: Mouth/Throat: Mouth: Mucous membranes are moist. Pharynx: Oropharynx is clear. Eyes: General: No scleral icterus. Cardiovascular: Rate and Rhythm: Regular rhythm. Heart sounds: Normal heart sounds. No murmur heard. Pulmonary: Effort: Pulmonary effort is normal. No respiratory distress. Chest: Comments: Right mastectomy scar. No overlying nodules or skin changes. No masses in left breast. Noaxillary adenopathy Musculoskeletal: Right lower leg: No edema. Left lower leg: No edema. Lymphadenopathy: Cervical: No cervical adenopathy. Neurological: General: No focal deficit present. Mental Status: She is alert and oriented to person, place, and time. ?? Echo 02/20/21 with stable EF Assessment and Plan: ?? #1 Breast cancer--Alis is a 30 yo woman with ER+ HER2 + breast cancer,+ clinical response to NAC but partial path response [[id number]] grade 2 er/pr + her2 + stage IIA], s/p RT and is now receivingadjuvant ado-trastuzumab emtasine. She has received 2 of the planned 14 cycles with minimal treatment related toxicities. She will commence tamoxifen as part of adjuvant therapy and continues with ovarian suppression while receiving TDM1. Last received goserelin on 05/31/21 #2 Chemotherapy--monitoring for toxicity Lab parameters met and will proceed with cycle 3 We discussed need for Rpt echo #3 Fatigue--grade 2. Slowly improving ?? #4 Menopausal symptoms--Mild hot flashes, stable. ?? #5 Bone health--chronic LBP, worse with inactivity. Resumed seeing her chiropractor with good effect. ?? #6 Medication management --Script sent for Tamoxifen 20mg po daily. Side effects may include but are not limited to fatigue, worsening of hot flashes, joint aches/stiffness, vaginal dryness/bleeding and increased risk of blood clots (DVTs). #Genetic testing:One pathogenic variant identified in MUTYH identified ?? Plan: -Commence Tamoxifen 20mg po daily -Proceed with cycle 3 of T-DM1 -RTC x 3 weeks for cycle 4 of T-DM 1 -Plan for TTE ahead of next treatment Alis was seen and discussed with attending, Dr. Clemente Schwarz MD Hematology/Oncology Fellow Pager: [phone] * Tyra Cornejo MD - 06/12/2021 9:00 AM EST I have seen the patient in person and reviewed the resident's above history and I agree with the details as written. The assessment and plan were formulated in discussion with me and I agree with them as documented. Pertinent History: Doing well after RT except for fatigue. Starting to work again. Hair coming in. Pertinent Exam: Mild hyperpigmentation right chest wall, s/p RT Major issues addressed: Continue ovarian suppression, start tamoxifen Plan: Consult pharmacy on q 3 wk dosing of goserelin for pt convenience Continue TDM-1 Start tamoxifen documented in this encounter Plan of Treatment Upcoming Encounters Date Type Department Care Team (Late st Contact Info) Description 02/13/2025 1:00 PM EDT Office Visit Radiation Oncology at [address] [phone] Eleonora Mensah MD [facility] [place] [address] documented as of this encounter Visit Diagnoses Diagnosis HER2-positive carcinoma of right breast Encounter for chemotherapy management documented in this encounter Care Teams High School Football Coach Relationship Specialty Start Date End Date Charleen Williamson APRN [address] [place] [address] PCP - General Family Medicine 06/29/20 documented as of this encounter
--- OUTSIDE RECORDS SUMMARY | 2024-05-09 14:02 | XMS_ITS | Encounter Summary ---
Author Organization [facility] Address [facility] [place] [address] Care Team Providers Care Sustainability Officer Name Role Phone Charleen Williamson APRN Primary Care Provider [phone] [phone] Encounter Details Date Type Department Care Team (Late st Contact Info) Description 05/21/2021 Orders Only Hematology [place] [address] Tyra Cornejo MD [facility] [address] [place] [address] Social History Tobacco Use Types Packs/Day Years [...] EDT Office Visit Radiation Oncology at [address] [phone] Eleonora Mensah MD [facility] [place] [address] documented as of this encounter Visit Diagnoses Not on filedocumented in this encounter Care Teams Sustainability Officer Relationship Specialty Start Date End Date Charleen Williamson APRN [address] [place] [address] PCP - General Family Medicine 06/29/20 documented as of this encounter
--- OUTSIDE RECORDS SUMMARY | 2024-05-09 14:02 | XMS_ITS | Encounter Summary ---
Author Organization [facility] Address [facility] [place] [address] Care Team Providers Care Applied Exercise Physiologist Name Role Phone Charleen Williamson APRN Primary Care Provider [phone] [phone] Encounter Details Date Type Department Care Team (Late st Contact Info) Description 05/02/2021 Orders Only Hematology/Oncology at [address] [phone] Janet Wheeler APRN [facility] [address] Social History Tobacco Use Types Packs/Day Years [...] PM EDT Office Visit Radiation Oncology at [address] [phone] Eleonora Mensah MD [facility] [place] [address] documented as of this encounter Visit Diagnoses Not on filedocumented in this encounter Care Teams Applied Exercise Physiologist Relationship Specialty Start Date End Date Charleen Williamson APRN [address] [place] [address] PCP - General Family Medicine 06/29/20 documented as of this encounter
--- OUTSIDE RECORDS SUMMARY | 2024-05-09 14:02 | XMS_ITS | Encounter Summary ---
Author Organization [facility] Address [facility] [place] [address] Care Team Providers Care Jacquard Loom Weaver Name Role Phone Charleen Williamson APRN Primary Care Provider [phone] [phone] Reason for Visit * Treatment/Therapy Plan Authorization (Routine) - Closed Specialty Diagnoses / Procedures Referred By Contac t Referred To Contact Diagnoses 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, estrogen receptor positive Procedures INJ, ADO-TRASTUZUMAB EMT 1MG TC GOSERELIN ACETATE IMPLANT, 3.6MG (ZOLADEX) TC PALONOSETRON HCL, 25MCG, INJECTION (ALOXI) Tyra Cornejo MD [facility] [address] [place] [address] [facility] Hem Onc Office [address] [place] [phone] Referral ID Status Reason Start Date Expiration Date Visits Re quested Visits Authorized [id number] Closed 03/01/2021 04/26/2022 99 99 Encounter Details Date Type Department Care Team (Latest Contact Info) Description 06/12/2021 7:46 AM EST - 06/12/2021 11:59 PM EST Hospital Encounter Hematology [place] [address] Malignant neoplasm of overlapping sites of right [...] 04/18/2021 06/18/2022 Miscellaneous Medical Supply Misc by [facility].(Non-Drug; Combo Route) route. Remedy Phytoplex [...] Progress Notes * Hilda Marin RN - 06/12/2021 10:10 AM EST Patient Name: Alis Silva Patient Age: 30 y.o. Birthdate: 1990 Admit date: 06/12/2021 Attending Physician: No att. providers found Alis Silva, 30 y.o. female with diagnosis of breast cancer is here for chemotherapy infusion of Kadcyla. PROTOCOL: n/a CYCLE: 3 DAY: 1 S: Pt. offers no complaints [...] EDT Office Visit Radiation Oncology at [address] [phone] Eleonora Mensah MD [facility] [place] [address] documented as of this encounter Results * (ABNORMAL) Comprehensive metabolic panel (non-fasting) (06/12/2021 7:59 AM EST) Glucose 138 65 - 199 mg/dL [facility] Comment:Diabetes: >=200 mg/d L plus symptoms Blood Urea Nitrogen 16 8 - 18 mg/dL [facility] Creatinine 0.70 0.70 - 1.20 mg/dL [facility] Sodium 137 135 - 145 mmol/L [facility] Potassium 3.9 3.5 - 5.0 mmol/L [facility] Comment: Please note: ??Patients with WBC >100,000 may have falsely elevated Potassium levels. ??For accurate Potassium quantification in these patients send serum separator tube (gold top) for subsequent determinations. ??Contact the Clinical Chemistry Laboratory if there are any questions. Chloride 99 98 - 107 mmol/L [facility] Carbon Dioxide 26 22 - 31 mmol/L [facility] Anion Gap 12 5 - 15 mmol/L [facility] Calcium 9.9 8.5 - 10.5 mg/dL [facility] Protein, Total 8.1(H) 6.1 - 8.0 g/dL [facility] Albumin 4.3 3.2 - 5.2 g/dL [facility] Aspartate Aminotransferase 25 0 - 30 unit/L [facility] Alanine Aminotransferase 29 0 - 30 unit/L [facility] Alkaline Phosphatase 93 35 - 105 unit/L [facility] [...] Lab Tyra Cornejo MD CHEMISTRY ORDERABLE S [facility] [place] [address] documented in this encounter Visit Diagnoses Diagnosis [...] 300 mg, Intravenous, ONCE, 1 dose, On Thu06/12/21 at 1145, Administer over 30 Minutes, Monitor patient for ado-trastuzumab emtansine infusion reactions 30 minutes after each subsequent dose if the first dose was well-tolerated. Dose Ordered = 303 mg (3.6 mg/kg). Pharmacist rounded dose per procedure., This agent is restricted to outpatient use. Is this drug being given as an outpatient? Yes New Bag 06/12/2021 11:23 AM EST 300 mg 530 mL/hr dexamethasone (PF) (Decadron) (10 mg/mL) injection 10 mg 10 mg, Intravenous, ONCE, 1 dose, On Thu06/12/21 at 1045 Given 06/12/2021 10:39 AM EST 10 mg heparin (pf) (porcine) (100 units/mL) flush 5 mL syringe 500 Units 500 Units, Intravenous, ONCE PRN, Starting on Thu06/12/21 at 1028, Until [place] 06/13/21 at 0434, Line Care, Refer to Intravenous (IV) Procedure: Accessing Implanted Vascular Access Devices (444) procedure and/or Intravenous (IV) Job Aid: Adult Flushing & Catheter Care (3669) job aid for additional information regarding guidelines and administration., Routine Given 06/12/2021 12:08 PM EST 500 Units ondansetron (Zofran) tablet 8 mg 8 mg, Oral, ONCE, 1 dose, On Thu06/12/21 at 1045, Administer prior to chemotherapy, Routine Given 06/12/2021 10:39 AM EST 8 mg documented in this encounter Care Teams Jacquard Loom Weaver Relationship Specialty Start Date End Date Charleen Williamson APRN [address] [place] [address] PCP - General Family Medicine 06/29/20 documented as of this encounter
--- OUTSIDE RECORDS SUMMARY | 2024-05-09 14:02 | XMS_ITS | Encounter Summary ---
Author Organization [facility] [place] [address] Care Team Providers Care Photographic Equipment Technician Name Role Phone Charleen Williamson APRN Primary Care Provider +1 -[phone] Encounter Details Date Type Department Care Team (Late st Contact Info) Description 07/03/2021 Telephone Hematology [place] [address] Danni Ryan Social History Tobacco Use Types Packs/Day Years [...] encounter Miscellaneous Notes * Telephone Encounter - Danni Ryan - 07/03/2021 3:40 PM EST Faxed referral for physical therapy to [facility] at [phone], documented in this encounter Plan of Treatment Upcoming Encounters Date Type Department Care Team (Late st Contact Info) Description 02/13/2025 1:00 PM EDT Office Visit Radiation Oncology at [address] [phone] Eleonora Mensah MD [facility] [place] [address] documented as of this encounter Visit Diagnoses Not on filedocumented in this encounter Care Teams Photographic Equipment Technician Relationship Specialty Start Date End Date Charleen Williamson APRN [address] [place] [address] PCP - General Family Medicine 06/29/20 documented as of this encounter
--- OUTSIDE RECORDS SUMMARY | 2024-05-09 14:02 | XMS_ITS | Encounter Summary ---
Author Organization [facility] [place] [address] Care Team Providers Care Stud Setter Name Role Phone Charleen Williamson APRN Primary Care Provider +1 [phone] Reason for Visit * Reason Onset Date Comments Other 05/08/2021 Encounter Details Date Type Department Care Team (Late st Contact Info) Description 05/08/2021 Telephone Hematology/Oncology at [address] [phone] Kristin Pat RN Other Social History Tobacco Use Types Packs/Day Years [...] encounter Miscellaneous Notes * Telephone Encounter - Kristin Pat RN - 05/08/2021 4:04 PM EST Pt was noted by Dr. Mensah to have skin eruptions on legs and arms. Pt had left for day so laura Puentes Bobbin Winder was not able to look at it. Pt describes them as less than pea size shaped reddened area on lower legs and arms. They are not itchy she noted them last Thursday day after receiving Kadcyla.. they are not itchy. Laura puentse would like to look at them Thursday when pt comes in for radiation and when laura is on site next. Pt will ask for med onc triage nurse. Pt will call if they change or worsen. Dr. Cornejo and Dr. Manning updated via this note documented in this encounter Plan of Treatment Upcoming Encounters Date Type Department Care Team (Late st Contact Info) Description 02/13/2025 1:00 PM EDT Office Visit Radiation Oncology at [address] [phone] Eleonora Mensah MD [facility] [place] [address] documented as of this encounter Visit Diagnoses Not on filedocumented in this encounter Care Teams Stud Setter Relationship Specialty Start Date End Date Charleen Williamson APRN [address] [place] [address] PCP - General Family Medicine 06/29/20 documented as of this encounter
--- OUTSIDE RECORDS SUMMARY | 2024-05-09 14:02 | XMS_ITS | Encounter Summary ---
Author Organization Formerly [facility], [facility] Address [facility] [place] [address] Care Team Providers Care Machine Stone Polisher Apprentice Name Role Phone Charleen Williamson APRN Primary Care Provider [phone] Reason for Visit * Reason Comments Follow-up Encounter Details Date Type Department Care Team (Late st Contact Info) Description 06/17/2021 3:30 PM EST Office Visit Radiation Oncology at [address] [phone] Eleonora Mensah MD [facility] [place] [address] S/P radiotherapy Social History Tobacco Use Types [...] Reading Time Taken Comments Blood Pressure 129/75 06/17/2021 3:30 PM EST Pulse 79 06/17/2021 3:30 PM EST Temperature 37.2 ??C (99 ??F) 06/17/2021 3:3 0 PM EST Respiratory Rate 18 06/17/2021 3:30 PM EST Oxygen Saturation 99% 06/17/2021 3:3 0 PM EST Inhaled Oxygen Concentration - - Weight 85.5 kg (188 lb 9.6 oz) 06/17/19 3:30 PM EST with boots Height 175.3 cm (5' 9.02) 06/17/2021 3 :30 PM EST Body Mass Index 27.84 06/17/2021 3:30 PM EST documented in this encounter Patient Instructions * Patient Instructions* Eleonora Mensah MD - 06/17/2021 3:48 PM EST Your exam shows that you are healing nicely from radiotherapy. You may use a straight/regular razor on your right underarm. You may expose the irradiated area to sun, but it is recommended that you apply sunscreen with an SPF of @ least #45 on the irradiated area prior to exposing it to sun. You may swim in chlorinated water. You may expose irradiated area to hot tub water. Someone will contact you to schedule followup with me in January. documented in this encounter Progress Notes * Eleonora Mensah MD - 06/17/2021 3:30 PM EST Images from the original note were not included. CC: Scheduled followup s/p xrt completion. HPI: Alis is a 30 y/o f who completed xrt 2 wks ago (06/03/21) for breast ca, R, invasive ca w/ductal &??lobular features, gr 2, ER+CT+, Her2+, cT3 cN1, s/p neoadjuvant TCHP, followed by R mastectomy w/NLOC excision clipped R axillary lymph node, unsuccessful SNB, ypT1b(m) ypN1mi, +LVI. ??Randomized on [id number] to ax dissxn, removing 13 lymph nodes, all neg. ??Xrt off protocol. ??Adjuvant TDM-1 concomitant w/xrt. ??On zoladex. ??Cabrera after xrt completion. 06/12/21 Dr. Cornejo, possible q 3 wk dosing of goserelin, continue TDM-1, start cabrera. Subjective: Plans to start cabrera tomorrow. Skin w/in irrad'd area healing. No past medical history on file. No lupus/scleroderma. Past Surgical History: Procedure Laterality Date ??? IR MEDIPORT PLACEMENT 07/23/2020 IR Mediport Placement [facility] INTERVENTIONL RAD ??? MAMMO US BIOPSY LYMPH NODE RIGHT Right 06/29/2020 Mammo US Biopsy Lymph Node Right 06/29/2020 Danni Osuna MD [facility] RAD MAMMOGRAPHY ??? MAMMO US BIOPSY RIGHT Right 06/29/2020 Mammo Us Biopsy Right 06/29/2020 Danni Osuna MD [facility] RAD MAMMOGRAPHY ??? MAMMO US NEEDLE LOCALIZATION RIGHT Right 01/03/2021 Mammo US Needle Localization Right 01/03/2021 Mili Burgos MD [facility] RAD MAMMOGRAPHY ??? MRI GUIDED BIOPSY BREAST VACUUM ASSISTED LEFT Left 07/18/2020 MRI Guided Biopsy Breast Vacuum Assisted Left 07/18/2020 [facility] RAD MRI ??? PRO BX/REMV, LYMPH NODE, DEEP AXILL Right 01/03/2021 BIOPSY OR EXCISION OF LYMPH NODE(S), OPEN, DEEP AXILLARY NODE(S) (WRVU 6.43) performed by Eulalio Hunt MD at [facility] MAIN OR ??? PRO EXCISE BREAST LES W XRAY MARKER Right 01/03/2021 EXCISION LESION, BREAST W/ PREOP.MARKER (NEEDLE LOC.) (WRVU 6.69) performed by Eulalio Hunt MDat [facility] MAIN OR ??? PRO INTRAOP SENTINEL LYMPH ID W/DYE INJECTION Right 01/03/2021 INTRAOPERATIVE ID (MAPPING) SENTINEL LYMPH NODE,INCLUDES INJECTION (WRVU 2.5) performed by Eulalio Hunt MD at [facility] MAIN OR ??? PRO MASTECTOMY, SIMPLE, COMPLETE Right 01/03/2021 MASTECTOMY, SIMPLE, COMPLETE (WRVU 15.85) performed by Eulalio Hunt MD at [facility] MAIN OR ??? PRO REMOVE ARMPITS LYMPH NODES COMPLT Right 01/28/2021 LYMPHADENECTOMY, AXILLARY, COMPLETE (WRVU 13.87) performed by Eulalio Hunt MD at [facility] OSC Oral surgery Your Medications Accurate as of June 17, 2021 4:04 PM. If you have any questions, ask [...] by mouth daily. 200 mg Refills: 0 silver sulfADIAZINE 1 % Crea Commonly known as: Silvadene Apply as often as needed to irradiated area. Quantity: 50 g Refills: 0 tamoxifen 20 mg Tab Commonly [...] AFFECTED AREA TWICE DAILY Refills: 0 Physical Exam Constitutional: General: She is not in acute distress. Comments: BP 129/75 (Patient Position: Sitting) Pulse 79 Temp 37.2 ??C (99 ??F) (Temporal) Resp 18 Ht 175.3 cm (5' 9.02) Wt 85.5 kg (188 lb 9.6 oz) Comment: with boots SpO2 99% BMI 27.84 kg/m?? HENT: Head: Normocephalic. Eyes: General: No scleral icterus. Right eye: No discharge. Left eye: No discharge. Extraocular Movements: Extraocular movements intact. Conjunctiva/sclera: Conjunctivae normal. Pulmonary: Effort: Pulmonary effort is normal. No respiratory distress. Breath sounds: No stridor. Comments: S/p R mastectomy. Mild erythema R chest wall, consistent w/post xrt change. [...] is no guarding or rebound. Musculoskeletal: General: No swelling or tenderness. Normal range of motion. Cervical back: [...] Thought content normal. Judgment: Judgment normal. A: Healing well from xrt. P: Care of irrad'd skin discussed. Rtc Dr. Hunt w/Arslan mmg July. ?? documented in this encounter Plan of Treatment Upcoming Encounters Date Type Department Care Team (Late st Contact Info) Description 02/13/2025 1:00 PM EDT Office Visit Radiation Oncology at [address] [phone] Eleonora Mensah MD [facility] [place] [address] documented as of this encounter Visit Diagnoses Diagnosis S/P radiotherapy Convalescence following radiotherapy documented in this encounter Care Teams Machine Stone Polisher Apprentice Relationship Specialty Start Date End Date Charleen Williamson APRN [address] [place] [address] PCP - General Family Medicine 06/29/20 documented as of this encounter
--- OUTSIDE RECORDS SUMMARY | 2024-05-09 14:02 | XMS_ITS | Encounter Summary ---
Author Organization Pending Sale To [facility] Address [facility] [place] [address] Care Team Providers Care Health Care Attorney Name Role Phone Charleen Williamson APRN Primary Care Provider [phone] Reason for Referral * Diagnostic Test (Routine) - Closed Specialty Diagnoses / Procedures Referred By Contac t Referred To Contact Cardiology Diagnoses Malignant 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, estrogen receptor positive Procedures Echocardiogram Transthoracic([facility] or [facility]) Germania Cornejo MD [facility] [place] [address] [facility] [place] [address] Referral ID Status Reason Start Date Expiration Date V isits Requested Visits Authorized [id number] Closed Specialty Service Requested 05/20/2021 05/20/2022 1 1 Encounter Details Date Type Department Care Team (Late st Contact Info) Description 05/20/2021 Orders Only [place]ology [place] [phone] Germania Cornejo MD [facility] [place] [address] Malignant neoplasm of central portion of right [...] EDT Office Visit Radiation Oncology at [address] [phone] Eleonora Mensah MD [facility] [place] [address] documented as of this encounter Results * ECHO COMPLETE W CONTRAST (06/26/2021 3:53 PM EST) EF 61 HEARTLAB SYSTEM Anatomical Region Laterality Modality Other 06/26/2021 2:40 PM EST Narrative 06/26/2021 4:07 PM EST ?[facility] ?[address] ? [place] [address] ?Voice: ?Fax: ? Echocardiogram Report Name: ALIS SILVA ? Study Date: 06/26/2021 02:40 PMBP: 122/64 mmHg ? Patient Location: : 1990 ? Height: 175 cm ? Account: [id number] Age: 30 yrs ? Weight: 85 kg Gender: Female ?BSA: 2.0 m2 Ordering Physician: GERMANIA CORNEJO Referring Physician: GERMANIA CORNEJO Performed By: Jolly Jo RDCS Reason For Study: Malignant 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, estrogen receptor positive Exam Location: [facility]. Interpretation Summary Left ventricle is of normal size. Wall thickness is normal. The left ventricular ejection fraction is 61% by Garcia's biplane. There are no segmental wall motion abnormalities. The right ventricle is of normal size. Right ventricular systolic function is normal. No significant valve disease. Compared to study from 02/20/2021, findings are similar. Procedure Complete-[id number]. Image enhancement Definity was used for left ventricular opacification. Left Ventricle Left ventricle is of normal size. No membranous ventricular septal defect. Wall thickness is normal. Left ventricular systolic function is normal. The left ventricular ejection fraction is 61% by Garcia's biplane. There are no segmental [...] mitral valve is structurally and functionally normal. There is trace mitral regurgitation. Tricuspid Valve The tricuspid valve is structurally normal. There is trace tricuspid regurgitation. Pulmonic Valve The pulmonic valve is not well visualized. Great Arteries The aortic root is of [...] ?2D Measurements ? Volumes LV Biplane EF: 61.0 % ? IVSd: 0.93 cm ?LA volume: 27.2 ml ?LVIDd: 4.2 cm ?LA Volume Index: ?LVIDs: 2.6 cm ?LVPWd: 1.0 cm ?13.5 ml/m2 ? EDV(MOD-sp4): 89.3 ml ?Ao root diam: 2.9 cm ? EDV(MOD-sp2): 95.4 ml ?LVOT diam: 2.0 cm ?SV(LVOT): 59.9 ml ? LV Stroke Volume: 62.0 ml ? SI(LVOT): 29.8 ml/m2 Doppler MV E max nabila: 79.9 cm/sec MV A max nabila: 67.3 cm/sec MV E/A: 1.2 MV dec time: 0.18 sec E/ e' (lat): 4.4 E/e' (med): 4.8 Procedure Note Gio Haywood MD - 06/26/[address] [address] Voice: Fax: Echocardiogram Report Name: ALIS SILVA Study Date: 202:40 PMBP: 122/64 mmHg Patient Location: : 1990 Height: 175 cm Account: [id number] Age: 30 yrs Weight: 85 kg Gender: Female BSA: 2.0 m2 Ordering Physician: GERMANIA CORNEJO Referring Physician: GERMANIA CORNEJO Performed By: Jolly Jo RDCS Reason For Study: Malignant neoplasm of central portion of right breastin female, estrogen receptor positive Exam Location: [facility]. Interpretation Summary Left ventricle is of normal size. Wall thickness is normal. The leftventricular ejection fraction is 61% by Garcia's biplane. There are no segmental wallmotion abnormalities. The right ventricle is of normal size. Right ventricular systolic functionis normal. No significant valve disease. Compared to study from 02/20/2021, findings are similar. Procedure Complete-[id number]. Image enhancement Definity was used for left ventricular opacification. Left Ventricle Left ventricle is of normal size. No membranous ventricular septal defect.Wall thickness is normal. Left ventricular systolic function is normal. Theleft ventricular ejection fraction is 61% by Garcia's biplane. There are nosegmental wall [...] mitral valve is structurally and functionally normal. There is tracemitral regurgitation. Tricuspid Valve The tricuspid valve is structurally normal. There is trace tricuspid regurgitation. Pulmonic Valve The pulmonic valve is not well visualized. Great Arteries The aortic root is of [...] Fraction 2D Measurements Volumes LV Biplane EF: 61.0 % IVSd: 0.93 cm LA volume: 27.2ml LVIDd: 4.2 cm LA VolumeIndex: LVIDs: 2.6 cm LVPWd: 1.0 cm 13.5 ml/m2 EDV(MOD-sp4):89.3 ml Ao root diam: 2.9 cm EDV(MOD-sp2):95.4 ml LVOT diam: 2.0 cm SV(LVOT): 59.9ml LV Stroke Volume:62.0 ml SI(LVOT): 29.8ml/m2 Doppler MV E max nabila: 79.9 cm/sec MV A max nabila: 67.3 cm/sec MV E/A: 1.2 MV dec time: 0.18 sec E/ e' (lat): 4.4 E/e' (med): 4.8 Germania Cornejo MD ECHO ORDERABLES documented in this encounter Visit Diagnoses Diagnosis Malignant 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, 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
--- OUTSIDE RECORDS SUMMARY | 2024-05-09 14:02 | XMS_ITS | Encounter Summary ---
[place] [address] Care Team Providers Care Knotter Name Role Phone Charleen Williamson APRN Primary Care Provider [phone] Encounter Details Date Type Department Care Team (Late st Contact Info) Description 07/19/2021 11:30 AM EDT Tech [place] [phone] Vanda Tate Swelling of right hand; Malignant neoplasm of [...] EDT Office Visit Radiation Oncology at [address] [phone] Eleonora Mensah MD [facility] [place] [address] documented as of this encounter Procedures Procedure Name Priority Date/Time Associated Diagnosis Comments DUPLEX FOR DVT, ARM, UNILAT STAT 07/19/2021 11:10 AM EDT Swelling of right hand Malignant 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, estrogen receptor positive documented in this encounter Results * Duplex for DVT, Arm, Unilat (07/19/2021 11:10 AM EDT) VB Text Report Department: Vascular Surgery Lab Patient: [id number] (ALIS SILVA) CPT: 18452 Referring Physician: GERMANIA CORNEJO ?? Indications: right hand/arm swelling and pain, progressive, pt with hx of right breast cancer s/p mastectomy, ongoing chemotherapy, ? DVT. Findings: Right: The axillary, brachial, radial, ulnar, cephalic and basilic veins are patent and fully compressible with no evidence of thrombus. The internal jugular vein is patent and fully compressible with no evidence of thrombus. While compression maneuvers cannot be performed on the subclavian or innominate veins, there is no pulsed Doppler or color Doppler evidence to suggest thrombus in these veins. Interpretation: Right: No evidence of upper extremity deep or superficial venous thrombus. No evidence of internal jugular vein thrombus. Comparison: ?? No previous study in our vascular lab database for comparison. Electronically Signed by: SENA MORELOS on 2021-07-19 03:04:45 PM [facility] VB Text Report End of Report [facility] 07/19/2021 11:1 0 AM EDT Germania Cornejo MD VASCULAR ORDERABLES [facility] documented in this encounter Visit Diagnoses Diagnosis Swelling of right hand Malignant 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, estrogen receptor positive documented in this encounter Care Teams Knotter Relationship Specialty Start Date End Date Charleen Williamson APRN [address] [place] [address] PCP - General Family Medicine 06/29/20 documented as of this encounter
--- OUTSIDE RECORDS SUMMARY | 2024-05-09 14:02 | XMS_ITS | Encounter Summary ---
Author Organization [facility] [place] [address] Care Team Providers Care Sample Weaver Name Role Phone Charleen Williamson APRN Primary Care Provider [phone] Reason for Referral * Psychiatric (Routine) - Closed Specialty Diagnoses / Procedures Referred By Contac t Referred To Contact Hematology and Oncology Diagnoses Adjustment disorder with mixed anxiety and depressed mood Cognitive changes Barbara Cain PA [facility] [place] [address] Dafne Dykes, PhD [facility] [place] [address] Referral ID Status Reason Start Date Expiration Date V isits Requested Visits Authorized [id number] Closed Consult, Test & Treat 07/24/2021 07/24/2022 1 1 * Consultation (Urgent) - Closed Specialty Diagnoses / Procedures Referred By Contac t Referred To Contact Hematology and Oncology Diagnoses Malignant 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, estrogen receptor positive Adjustment disorder with mixed anxiety and depressed mood Barbara Cain PA [facility] [place] [address] [facility] Onc [address] [place] [address] Referral ID Status Reason Start Date Expiration Date V isits Requested Visits Authorized [id number] Closed Consult, Test & Treat 07/24/2021 07/24/2022 1 1 Reason for Visit * Reason Comments Follow-up Encounter Details Date Type Department Care Team (Late st Contact Info) Description 07/24/2021 1:30 PM EDT Office Visit [place] [address] Barbara Cain PA Malignant 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, estrogen receptor positive; Adjustment disorder with mixed anxiety and depressed mood; Localized edema; Cognitive changes Social History Tobacco Use Types [...] Sign Reading Time Taken Comments Blood Pressure 134/82 07/24/2021 1:20 PM EDT Pulse 93 07/24/2021 1:20 PM EDT Temperature 36.4 ??C (97.5 ??F) 07/24/2021 1:20 PM ED T Respiratory Rate 18 07/24/2021 1:20 PM EDT Oxygen Saturation 97% 07/24/2021 1:20 PM EDT Inhaled Oxygen Concentration - - Weight 82.6 kg (182 lb 3.2 oz) 07/24/2021 1:20 P M EDT Height 175 cm (5' 8.9) 07/24/2021 1:20 PM EDT Body Mass Index 26.99 07/24/2021 1:20 PM EDT documented in this encounter Progress Notes * Barbara Cain PA - 07/24/2021 1:30 PM EDT [facility] Breast Oncology Clinic: Follow-up Visit Identification: 30 y.o. female with locally advanced right breast cancer; s/p neoadjuvant chemotherapy with TCHP, R mastectomy/ALND; currently on adjuvant T- DM1 for residual disease. Medical Oncologist: Tyra Cornejo MD Interim History: Alis presents today for 3-week follow-up on adjuvant T-DM1; consideration of cycle 5. She has had right wrist pain for about a month, mostly at the thumb base, but occasionally radiating up the arm. It started after she tried tapping trees. Her PCP referred her to PT, which has not yet been helpful. Her hand and wrist began swelling about a week ago. Duplex US was negative for DVT. Alternating Tylenol and ibuprofen has been somewhat helpful. She remains quite fatigued. She reports 'brain fog,' trouble concentrating, and forgetting things. She is having hot flashes and night sweats daily, now more severe and lasting longer. She is irritable and more anxious and sad. She is on max dose sertraline, and her PCP recently added Buspar, though it has not yet been helpful. She is scheduled to see their psychiatrist at the end of July. She is walking on the treadmill everyday. She has several questions about endocrine therapy and future childbearing. Review of Systems: General: Denies fevers, chills, [...] end of May 2020. - Dx 06/29/20 [facility] [place] ER/LA+ HER2 + right invasive carcinoma with ductal [...] cryopreservation - 08/14/2020 goserelin dose #1 at [place] - 08/17/2020 cycle 1 neoadjuvant TCHP - 09/06/2020 cycle 2 TCHP - 2020 cycle 3 TCHP - 10/18/2020 cycle 4 TCHP - 11/08/2020 cycle 5 TCHP - 11/29/2020 cycle 6 TCHP, dose-reduced carbo/taxol - mastectomy + SLNB: 13 cm tumor bed w/ scattered foci of invasive disease, +LVI, 1 node with microscopic disease - Consented to [place] trial evaluating axillary dissection vs RT and randomized to dissection: 0/13 nodes positive. - Not eligible for adjuvant tucatinib trial due to participation in the [place] axillary management trial. 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 - VUS was detected in the following genes: Gene Variant RET c.2982A>C (p.Cee690Vlb) SDHB c.482A>G (p.Seh166Uno) SH: No smoking No current EtOH to [employer] occ on [employer] / unemployed No children - desires biological children in the future Vitals: Patient Vitals for the past 24 hrs: Temp Pulse Resp BP SpO2 07/24/21 1320 36.4 ??C (97.5 ??F) 93 18 134/82 97 % Wt Readings from Last 3 Encounters: 07/24/21 82.6 kg (182 lb 3.2 oz) 07/03/21 84.8 kg (187 lb) 06/17/21 85.5 kg (188 lb 9.6 oz) Physical Exam: Vitals reviewed. General: A&Ox3. Well-developed and well-nourished. No acute distress. Head: Normocephalic, atraumatic. Eyes: EOMs intact. Conjunctiva pink. No scleral icterus. Chest: Port site (left) accessed. No tenderness. Pulmonary: Breathing comfortably on room air. Extremities: No LE edema. Right wrist with early lymphedema signs (loss of definition in right wrist). Tinel's sign neg for CTS (no radiation of pain, but does have pain over volar aspect of wrist). Phalen's negative. Wrist flexion limited to ~75 degrees. Tenderness at right thumb base. Neurological: Gait normal. No focal deficits noted. Skin: Warm and dry. No rashes noted. Psychiatric: Mood is anxious. Affect is mood-congruent. Insight is good. Thought-content is normal,future-oriented. Results: Lab Results Component Value Date WBC 7.4 07/24/2021 HGB 13.1 07/24/2021 HCT 38.0 07/24/2021 MCV 87.4 07/24/2021 PLATELET 209 07/24/2021 Lab Results Component Value Date NEUTROABS 4.78 07/24/2021 Lab Results Component Value Date NA 136 07/24/2021 K 3.9 07/24/2021 CL 100 07/24/2021 CO2 26 07/24/2021 BUN 16 07/24/2021 CREATININE 0.70 07/24/2021 GLUCOSE 85 07/24/2021 CALCIUM 10.0 07/24/2021 ESTGFR 118 07/24/2021 Lab Results Component Value Date ALT 20 07/24/2021 AST 28 07/24/2021 ALKPHOS 79 07/24/2021 BILITOT 0.3 07/24/2021 ALBUMIN 4.5 07/24/2021 PROT 8.4 (H) 07/24/2021 Lab Results Component Value Date TSH 1.80 07/24/2021 Baseline TTE 07/20/20: EF 62% TTE 12/06/20: EF = 54% TTE 02/20/21: EF = 59% TTE 06/26/21: EF = 61% Assessment & Plan: Alis is a 30 y.o. premenopausal woman with a large, node+, ER/LA+ HER2+ breast cancer, partial pathologic response to neoadjuvant TCHP [[id number]], s/p mastectomy/ALND, RT, and is now receiving adjuvant T-DM1 for residual disease per [facility]. She started tamoxifen on 06/18/21 and continues on ovarian suppression. Alis is having more significant symptoms from endocrine therapy, such as VMS. She is also bothered by fatigue, irritability, and cognitive changes, likely due to a combination of endocrine therapy and recovery from prior treatments and the stress of diagnosis. We talked about how the early monthsof endocrine therapy, after chemo and radiation, can be quite challenging as this is a major adjustment period. Side effects do tend to improve over time. Nonetheless, these are distressing to her atthe time. She is interested in a referral to our psychiatric nurse practitioners here to discuss psychiatric medication management. Venlafaxine may be a great choice for her due to low interaction wit h tamoxifen and possible benefit in reducing hot flashes. We could also consider gabapentin for help with hot flashes and neuropathic pain. If symptoms remain significant despite these methods, we could discuss altering her endocrine therapy (either to tamoxifen alone, or OS + AI). #Breast cancer ?? Continue with adjuvant T-DM1, cycle 5 ?? Goserelin 10.8 mg q12 weeks ?? Continue tamoxifen ?? Left mammo scheduled 08/15, she will discuss ?indication for MRI screening with Dr. Hunt #Treatment monitoring for toxicity ?? Laboratory results are within acceptable limits to proceed with treatment today. ?? Cardiovascular monitoring: TTE repeated 06/26/21 and stable #Right wrist pain #Right UE lymphedema ?? Referred to lymphedema PT specialist ?? Voltaren gel applied locally up to 4x daily #Future childbearing ?? contraindicated during T-DM1 and [...] carrying her own vs surrogate vs adoption. #Vasomotor symptoms ?? Discussed non-pharmacologic management and common triggers ?? Will wait for psych WAX PATTERN REPAIRER consult before adding medications ?? She declines a brief break in tamoxifen for now #Psychosocial ?? Psycho-oncology referral for med management ?? Referral to breast cancer cognitive clinic for evaluation given level of distress around cognitive changes ?? Will begin counseling with Mei Zamora on 08/07 ?? FAMILY SUPPORT COORDINATOR following -- will assist with peer mentor match All questions answered, many about recurrence/surveillance. Total time spent on the date of the encounter: 50 minutes (Includes time spent reviewing prior notes and tests, obtaining a history, performing an exam, counseling and education, coordination of care, ordering medications/tests, placing referrals, interpreting results, and documenting in the chart). Barbara Cain PA-C Comprehensive Breast Program, Medical Oncology [facility] Pager - [phone] Future Appointments Date Time Provider Department Center 07/30/2021 10:00 AM Jossy Yancey APRN [facility] [place] [facility] [place]C [facility] [place] 08/07/2021 2:00 PM Mei Zamora [facility] [place] HEM ONC [facility] [place] 08/14/2021 12:15 PM ACCESS ROOM [facility] [place] INF [address] [place] [address] 08/14/2021 1:30 PM Tyra Cornejo MD [facility] [place] HEM [facility]C [facility] [place] 08/14/2021 3:00 PM [facility] INFUSION THERAPY [facility] [place] [facility] [address] [place] [address] 08/15/2021 10:10 AM [facility] DB CINDY ROOM 2 MH Mammo [facility] Rad 08/15/2021 11:00 AM Eulalio Hunt MD [facility] [place] SURG [facility] [place] 09/04/2021 12:15 PM ACCESS ROOM [facility] [place] IN[facility] [address] [place] [address] 09/04/2021 1:30 PM Barbara Cain PA [facility] [place] HEM ONC [facility] [place] 09/04/2021 3:00 PM [facility] INF[facility] THERAPY [address] documented in this encounter Plan of Treatment Upcoming Encounters Date Type Department Care Team (Late st Contact Info) Description 02/13/2025 1:00 PM EDT Office Visit Radiation Oncology at [address] [address] Eleonora Mensah MD [facility] [place] [address] Scheduled Referrals Name Type Priority Associated Diagnoses Order Schedule Referral to [facility] Psychiatry (Cancer Center Only) Outpatient Referral Routine Malignant 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, estrogen receptor positive Adjustment disorder with mixed anxiety and depressed mood Ordered: 07/24/2021 Referral to Neuropsychology Outpatient Referral Routine Adjustment disorder with mixed anxiety and depressed mood Cognitive changes Ordered: 07/24/2021 documented as of this encounter Visit Diagnoses Diagnosis Malignant 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, estrogen receptor positive Adjustment disorder with mixed anxiety and depressed mood Localized edema Edema Cognitive changes Other signs and symptoms involving cognition documented in this encounter Care Teams Sample Weaver Relationship Specialty Start Date End Date Charleen Williamson APRN [address] [place] [address] PCP - General Family Medicine 06/29/20 documented as of this encounter
--- OUTSIDE RECORDS SUMMARY | 2024-05-09 14:02 | XMS_ITS | Encounter Summary ---
Author Organization [facility] Address [facility] [place] [address] Care Team Providers Care Rough Rib Grader Name Role Phone Charleen Williamson APRN Primary Care Provider [phone] Reason for Visit * Reason Comments On Treatment Visit Encounter Details Date Type Department Care Team (Late st Contact Info) Description 05/28/2021 10:30 AM EST Office Visit Radiation Oncology at [address] [phone] Eleonora Mensah MD [facility] [place] [address] Hormone receptor positive malignant neoplasm of right [...] PM EDT documented as of this encounter Patient Instructions * Patient Instructions* Eleonora Mensah MD - 05/28/2021 10:30 AM EST You will complete radiotherapy M., 06/03/21. Please continue @ least 1 of the creams/ointments (Phytoplex or aquaphor ointment or silvadene or 1% hydrocortisone cream) @ least once/day to irradiated area. If you develop a moist peel, apply silvadene @ least once/day to area to prevent infection. Please do not use a straight/regular razor on your right underarm. An electric razor is ok. Please do not expose the irradiated area to sun, cover it with clothing. Please do not expose irradiated area to chlorinated water. Saltwater or freshwater is ok. Please do not expose irradiated area to hot tub water. Hot bath/shower ok. Followup M., 06/17/21 @ 3:30. documented in this encounter Progress Notes * Eleonora Mensah MD - 05/28/2021 10:30 AM EST Images from the original note were not included. DIAGNOSIS: 30 y/o premenopausal female w/central breast ca, R, invasive ca w/ductal & lobular features, gr 2, ER+[place]+, Her2+, cT3 cN1, s/p neoadjuvant TCHP, followed by R mastectomy w/NLOC excision clipped R axillary lymph node, unsuccessful SNB, ypT1b(m) ypN1mi, +LVI. Randomized on [id number] to ax dissxn, removing 13 lymph nodes, all neg. Xrt off protocol. Adjuvant TDM-1 concomitant w/xrt. On zoladex. Cabrera after xrt completion. ?? CURRENT TREATMENT DOSE: 50 Gy R supraclav, R axilla, R chest wall; 52 Gy mastectomy scar ANTICIPATED TOTAL DOSE: 50 Gy R supraclav, R axilla, R chest wall; 60 Gy mastectomy scar Current # of xrt received: 25 R supraclav, R axilla, R chest wall; 26 Gy mastectomy scar Anticipated total # of xrt txs: 25 R supraclav, R axilla, R chest wall; 30 mastectomy scar Evaluation of port verification films: Approved. For details, see electronic film record in [employer]. Changes in Medical Condition: Increased soreness of skin w/in irrad'd area, managed w/ibuprofen & silvadene. Throat ok. Pain?: See above. Your Medications Accurate as of May 28, 2021 10:24 AM. If you have any questions, ask [...] Refills: 0 Miscellaneous Medical Supply Misc by [facility] [...] irradiated area. Quantity: 50 g Refills: 0 traZODone 50 mg Tab Commonly known as: Desyrel Take 3 tablets by mouth nightly. 150 mg Quantity: 90 tablet Refills: 3 triamcinolone 0.1 % Crea Commonly known as: Kenalog APPLY SMALL AMOUNT TOPICALLY TO THE AFFECTED AREA TWICE DAILY Refills: 0 Physical Exam: A&Ox3, NAD. Irrad'd area w/moderately brisk erythema, intact. Amb stable. Imagin03/19/21 Dx'ic Rad Interp CTsim: No suspicious lesion. Performance Status: KPS 100% Response to xrt: As expected. Irradiation Related Symptoms: Skin rxn. Treatment for Symptom Control: Silvadene. 1% htc recommended for itchiness w/in irrad'd area; also given aquaphor ointment. Phytoplex cream. Pain Management: Ibuprofen. Recommendation on Continuing Course of xrt: Continue. Completes xrt 06/03/21. Care of irrad'd area discussed. Rtc 06/17/21. documented in this encounter Plan of Treatment Upcoming Encounters Date Type Department Care Team (Late st Contact Info) Description 02/13/2025 1:00 PM EDT Office Visit Radiation Oncology at [address] [phone] Eleonora Mensah MD [facility] [place] [address] documented as of this encounter Visit Diagnoses Diagnosis Hormone receptor positive malignant neoplasm of right breast documented in this encounter Care Teams Rough Rib Grader Relationship Specialty Start Date End Date Charleen Williamson APRN [address] [place] [address] PCP - General Family Medicine 06/29/20 documented as of this encounter
--- OUTSIDE RECORDS SUMMARY | 2024-05-09 14:02 | XMS_ITS | Encounter Summary ---
Author Organization [facility] Address [facility] [place] [address] Care Team Providers Care Painter Barrel Name Role Phone Charleen Williamson APRN Primary Care Provider [phone] [phone] Reason for Visit * Treatment/Therapy Plan Authorization (Routine) - Closed Specialty Diagnoses / Procedures Referred By Contac t Referred To Contact Diagnoses 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, estrogen receptor positive Procedures INJ, ADO-TRASTUZUMAB EMT 1MG TC GOSERELIN ACETATE IMPLANT, 3.6MG (ZOLADEX) TC PALONOSETRON HCL, 25MCG, INJECTION (ALOXI) Germania Cornejo MD [facility] DR HEMATOLOGY [place] [address] [facility] Hem Onc Office [address] [place] [phone] Referral ID Status Reason Start Date Expiration Date Visits Re quested Visits Authorized [id number] Closed 03/01/2021 04/26/2022 99 99 Encounter Details Date Type Department Care Team (Latest Contact Info) Description 07/03/2021 8:19 AM EST Hospital Encounter Hematology [place] [address] Malignant neoplasm of overlapping sites [...] 04/18/2021 06/18/2022 Miscellaneous Medical Supply Misc by [facility].(Non-Drug; Combo Route) route. Remedy Phytoplex Moisturizer. Apply [...] as of this encounter Progress Notes * Mindi Vences RN - 07/03/2021 8:58 AM EST Patient Name: Alis Silva Patient Age: 30 y.o. Birthdate: 1990 Admit date: 07/03/2021 Attending Physician: No att. providers found Access visit. See MAR and/or flowsheet. documented in this encounter Plan of Treatment Upcoming Encounters Date Type Department Care Team (Late st Contact Info) Description 02/13/2025 1:00 PM EDT Office Visit Radiation Oncology at [address] [phone] Eleonora Mensah MD [facility] DR [place] [address] documented as of this encounter Procedures Procedure Name Priority Date/Time Associated Diagnosis Comments HEMOGRAM STAT 07/03/2021 8:50 AM EST 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, estrogen receptor positive DIFFERENTIAL, AUTOMATED STAT 07/03/2021 8:50 AM EST 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, estrogen receptor positive HC ESTRADIOL, SERUM Routine 07/03/2021 8 :50 AM EST 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, estrogen receptor positive HC CBC,PLT & AUTO DIFF STAT 8:50 AM EST 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, estrogen receptor positive HC FSH ASSAY, SERUM Routine 07/03/2021 8 :50 AM EST 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, estrogen receptor positive COMPREHENSIVE METABOLIC PANEL STAT 07/03/2021 8:50 AM EST 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, estrogen receptor positive documented in this encounter Results * Differential, Automated (07/03/2021 8:50 AM EST) Neutrophil % 61.8 % [place] [facility] Neutrophil Absolute 3.17 1.70 - 6.10 x10(3)/[facility] Lymph % 22.3 % [facility] Lymphocytes Abs 1.1 0.9 - 3.2 x10(3)/[facility] Monocyte % 12.9 % [facility] Monocyte Abs 0.7 0.3 - 0.9 x10(3)/[facility] Eos % 1.4 % [facility] Eosinophils Abs 0.1 0.0 - 0.4 x10(3)/[facility] Basophil % 1.2 % [facility] Baso Absolute 0.1 0.0 - 0.1 x10(3)/[facility] Immature Gran % 0.40 % [facility] Comment: Immature granulocytes(IG's)percentage and absolute count will include metamyelocytes, myelocytes, and promyelocytes. Blood smears from CBCs yielding IG's will be scanned manually for concordance. If this scan disagrees with the automated IG or if promyelocytes are noted, a manual differential will be performed. Immature Gran Absolute 0.02 0.00 - 0.04 x10(3)/[facility] Blood 07/03/2021 8:50 AM EST 07/03/2021 9:04 AM EST Narrative Resulting Agency Comment Spec In Lab Germania Cornejo MD HEMATOLOGY ORDERABL ES [facility] [place] [address] * (ABNORMAL) Hemogram (07/03/2021 8:50 AM EST) [facility] White Blood Cell 5.1 4.0 - 9.5 x10(3)/mc L [facility] Red Blood Cell 3.98(L) 4.00 - 5.21 x10(6)/mc L [facility] Hemoglobin 12.2 11.7 - 15.5 g/dL [facility] Hematocrit 35.1(L) 35.7 - 45.8 % [facility] Mean Cell Volume 88.2 82.6 - 94.4 fL [facility] Mean Cell Hemoglobin 30.7 27.1 - 32.0 pg [facility] Mean Cell Hemoglobin Concentration 34.8 31.7 - 35.0 g/dL [facility] Platelet 180 145 - 357 x10(3)/mc L [facility] RDW Standard Deviation 38.2 37.0 - 46.0 fL [facility] RDW coefficient of variation 11.9 11.5 - 14.1 % [facility] Mean Platelet Volume 8.9 7.6 - 12.9 fL [facility] NRBC% auto 0.0 % [facility] NRBC Absolute 0.000 0.000 - 0.000 x10(3)/mc L [facility] Blood 07/03/2021 8:50 AM EST 07/03/2021 9:04 AM EST Narrative Resulting Agency Comment Spec In Lab Germania Cornejo MD HEMATOLOGY ORDERABL ES [facility] [place] [address] * Estradiol (07/03/2021 8:50 AM EST) Estradiol <5 pg/mL [facility] Comment: Reference ranges: Males: Adult: ? 11 to 43 pg/mL Females: Non- females: ?Follicular: ??12-233 pg/mL ?Ovulation: ?? 41-398 pg/mL ?Luteal: ?22-341 pg/mL ?Postmenopausal: ?? <5 - 138 pg/mL females: ?1st trimester: ??154-3243 pg/mL ?2nd trimester: ??1561-84402 pg/mL ?3rd trimester: ??8525- >94054 pg/mL Blood 07/03/2021 8:50 AM EST 07/03/2021 9:04 AM EST Narrative Resulting Agency Comment Spec In Lab Germania Cornejo MD CHEMISTRY ORDERABLE S Performing Organization Address [facility] Co de Phone Number [facility] [place] [address] * Follicle Stimulating Hormone (07/03/2021 8:50 AM EST) Follicle Stimulating Hormone 3.7 mlU/ML [facility] Comment: Reference Ranges Male: ? 1.5-12.4 mIU/mL Female ?? Follicular: ?3.5-12.5 mIU/mL ?? Ovulation: ? 4.7-21.5 mIU/mL ?? Luteal: ?1.7-7.7 mIU/mL ?? Postmenopausal: ?25.8-134.8 mIU/mL Blood 07/03/2021 8:50 AM EST 07/03/2021 9:04 AM EST Narrative Resulting Agency Comment Spec In Lab Germania Cornejo MD CHEMISTRY ORDERABLE S Performing Organization Address [facility] Co de Phone Number [facility] [place] [address] * Comprehensive metabolic panel (non-fasting) (07/03/2021 8:50 AM EST) Glucose 128 65 - 199 mg/dL [facility] Comment:Diabetes: >=200 mg/d L plus symptoms Blood Urea Nitrogen 11 8 - 18 mg/dL [facility] Creatinine 0.78 0.70 - 1.20 mg/dL [facility] Sodium 138 135 - 145 mmol/L [facility] Potassium 3.9 3.5 - 5.0 mmol/L [facility] Comment: Please note: ??Patients with WBC >100,000 may have falsely elevated Potassium levels. ??For accurate Potassium quantification in these patients send serum separator tube (gold top) for subsequent determinations. ??Contact the Clinical Chemistry Laboratory if there are any questions. Chloride 100 98 - 107 mmol/L [facility] Carbon Dioxide 27 22 - 31 mmol/L [facility] Anion Gap 11 5 - 15 mmol/L [facility] Calcium 9.7 8.5 - 10.5 mg/dL [facility] Protein, Total 8.0 6.1 - 8.0 g/dL [facility] Albumin 4.2 3.2 - 5.2 g/dL [facility] Aspartate Aminotransferase 27 0 - 30 unit/L [facility] Alanine Aminotransferase 22 0 - 30 unit/L [facility] Alkaline Phosphatase 87 35 - 105 unit/L [facility] Bilirubin, Total 0.2 0.2 - 1.3 mg/dL [facility] Est Glomerular Filtration Rate 103 >=60 mL/min/1. 73 m?? [facility] Comment: This patient? s estimated [...] Narrative Resulting Agency Comment Spec In Lab Germania Cornejo MD CHEMISTRY ORDERABLE S [facility] [place] [address] documented in this encounter Visit Diagnoses Diagnosis [...] 1 MIN PRN, Starting on Thu07/03/21 at 0822, Until Alannah 07/04/21 at 0434, Line Care, Flush pertains to all indwelling lines. Flush per protocol found in the job aid using the link provided on this medication record. Refer to Intravenous (IV) Job Aid: Adult Flushing & Catheter Care (0964) job aid for additional information regarding guidelines and administration., Routine Given 07/03/2021 8:56 AM EST 20 mLs documented in this encounter Care Teams Painter Barrel Relationship Specialty Start Date End Date Charleen Williamson APRN [address] [place] [address] PCP - General Family Medicine 06/29/20 documented as of this encounter
--- OUTSIDE RECORDS SUMMARY | 2024-05-09 14:02 | XMS_ITS | Encounter Summary ---
Author Organization [facility] Address [facility] [place] [address] Care Team Providers Care Assistant Softball Coach Name Role Phone Charleen Williamson APRN Primary Care Provider +1 -[phone] Encounter Details Date Type Department Care Team (Late st Contact Info) Description 07/01/2021 Orders Only [place]ology [place] [phone] Tyra Cornejo MD [facility] [address] HEMATOLOGY [place] [address] Social History Tobacco Use Types Packs/Day Years [...] EDT Office Visit Radiation Oncology at [address] [phone] Eleonora Mensah MD [facility] [place] [address] documented as of this encounter Visit Diagnoses Not on filedocumented in this encounter Care Teams Assistant Softball Coach Relationship Specialty Start Date End Date Charleen Williamson APRN [address] [place] [address] PCP - General Family Medicine 06/29/20 documented as of this encounter
--- OUTSIDE RECORDS SUMMARY | 2024-05-09 14:02 | XMS_ITS | Encounter Summary ---
Author Organization [facility] Address [facility] [place] [address] Care Team Providers Care Senior Microsoft Consultant Name Role Phone Charleen Williamson APRN Primary Care Provider +1 -[phone] Encounter Details Date Type Department Care Team (Late st Contact Info) Description 04/30/2021 Notes Only Hematology/Oncology at [address] [phone] Jaqui Martins, [facility] OFFICE OF CARE MANAGEMENT Social History Tobacco Use Types Packs/Day Years [...] as of this encounter Progress Notes * Jaqui Martins, JOINT FINISHER - 04/30/2021 10:06 AM EST Reason for Referral: Brief assessment of social and emotional needs. Met with pt during her infusion visit today to introduce myself and role of professor of social work to assess/address barriers to getting toand through treatments; address support needs and connect with community services and resources as needed. Reviewed notes from Ronda Silva MSW and Britney Roach MSW. Pt scored +SDOH on her screening. Family/Social Supports: Pt identified her of 3 years as her primary support. Her parents live nearby. She has a support in her PCP office. Living Situation/Daily Activities/Transportation: Pt manages her daily chores and activities. She is tired some of the time. She does not expect any issues with transportation other than cost of gas.We have a gas guzzling truck. She stated she did look into mileage reimbursement through [employer] but did not find it worth it. Gave pt information to [facility] re their financial assistance with travel costs. Pt already accessed fund through the [facility] for travel costs and repair of their vehicle. Assisted pt with 2/$50 gas cards from the [facility] to help with cost of travel for her 6 weeks of RT treatments. Work/Finances/Insurance: Pt is not working right now. 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 She has Medicaid for insurance. Pt indicated their largest expenses is their rent and truck payment. Suggested considering the [employer] for help with rent, truck payment and food assistance. Pt indicated she does get food assistance and fuel assistance. Advance Directives: Pt has not completed her advance directive and does not want information re this. Utilization of Community Resources: [employer] (August 2020); food assistance; fuel assistance. Adjustment to Illness/Mental Health Concerns: Need to assess further. Identified Needs: financial resources to assist with travel expenses and some other costs as only has husbands SSDI income to live on. Referrals: Gave pt information re [facility] and suggested [employer] as a resource. Pt to consider. Social Work Interventions: Brief assessment Supportive Counseling Food insecurity resources Financial resources Transportation resources Plan: Informed pt of JOINT FINISHER availability and contact information. Will follow to assess/address psychosocial needs. MILAGROS Montes, MANAGER PRICING, OSW-C Chemical Supervisor [facility] documented in this encounter Plan of Treatment Upcoming Encounters Date Type Department Care Team (Late st Contact Info) Description 02/13/2025 1:00 PM EDT Office Visit Radiation Oncology at [address] [phone] Eleonora Mensah MD [facility] [place] [address] documented as of this encounter Visit Diagnoses Not on filedocumented in this encounter Care Teams Senior Microsoft Consultant Relationship Specialty Start Date End Date Charleen Williamson APRN [address] [place] [address] PCP - General Family Medicine 06/29/20 documented as of this encounter
--- OUTSIDE RECORDS SUMMARY | 2024-05-09 14:02 | XMS_ITS | Encounter Summary ---
Author Organization [facility] Address [facility] [place] [address] Care Team Providers Care Hand Paster Name Role Phone Charleen Williamson APRN Primary Care Provider +1 -[phone] Encounter Details Date Type Department Care Team (Late st Contact Info) Description 06/03/2021 10:30 AM EST Notes Only Radiation Oncology at [address] [phone] Eleonora Mensah MD [facility] [place] [address] Social History Tobacco Use Types Packs/Day Years [...] of this encounter Progress Notes * Eleonora Mensah MD - 06/03/2021 10:30 AM EST Alis Avelar Ricardo has completed xrt for breast ca, R, invasive ca w/ductal &??lobular features, 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 Randomized on [id number] to ax dissxn, removing 13 lymph nodes, all neg. Xrt off protocol. Adjuvant TDM-1 concomitant w/xrt. On zoladex. Cabrera after xrt completion.. The course of xrt is summarized as follows: Treatment was given from 04/22/21 to 06/03/21. 50 Gy in 25 fxs was given to R supraclavicular fossa, R axilla & R chest wall with 6 & 10 MV Xray external beam, followed by volume reduction & 10 Gy/5 fxs to mastectomy scar with 9 MeV electron beam, boosting mastectomy scar to 60 Gy/30 fxs. 3D xrt used. The course of xrt was tolerated well, w/the expected side effect of skin reaction w/in irradiated area managed w/silvadene, 1% hydrocortisone cream, aquaphor ointment & phytoplex cream. Exam nearcompletion of xrt showed moderately brisk erythema w/in irradiated area, skin intact. Rtc 06/17/20. documented in this encounter Plan of Treatment Upcoming Encounters Date Type Department Care Team (Late st Contact Info) Description 02/13/2025 1:00 PM EDT Office Visit Radiation Oncology at [address] [phone] Eleonora Mensah MD [facility] [place] [address] documented as of this encounter Visit Diagnoses Not on filedocumented in this encounter Care Teams Hand Paster Relationship Specialty Start Date End Date Charleen Williamson APRN [address] [place] [address] PCP - General Family Medicine 06/29/20 documented as of this encounter
--- OUTSIDE RECORDS SUMMARY | 2024-05-09 14:02 | XMS_ITS | Encounter Summary ---
Author Organization [facility] [place] [address] Care Team Providers Care Professor Of Sport Management Name Role Phone Charleen Williamson APRN Primary Care Provider +1 -[phone] Reason for Referral * Diagnostic Test (Emergency) - Closed Specialty Diagnoses / Procedures Referred By Contac t Referred To Contact Diagnoses Swelling of right hand Malignant 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, estrogen receptor positive Procedures Duplex for DVT, Arm, Unilat Barbara Cain PA [facility] [place] [address] [facility] Lab [address] [place] [address] Referral ID Status Reason Start Date Expiration Date V isits Requested Visits Authorized [id number] Closed Specialty Service Requested 07/18/2021 07/18/2022 1 1 Encounter Details Date Type Department Care Team (Late st Contact Info) Description 07/18/2021 Orders Only Hematology [place] [address] Barbara Cain PA Swelling of right hand; Malignant neoplasm of [...] PM EDT Office Visit Radiation Oncology at [address] [phone] Eleonora Mensah MD [facility] [place] [address] documented as of this encounter Results * Duplex for DVT, Arm, Unilat (07/19/2021 11:10 AM EDT) VB Text Report Department: Vascular Surgery Lab Patient: [id number] (ALIS SILVA) CPT: 94689 Referring Physician: GERMANIA CORNEJO ?? Indications: right [...] positive documented in this encounter Care Teams Professor Of Sport Management Relationship Specialty Start Date End Date Charleen Williamson APRN [address] [place] [address] PCP - General Family Medicine 06/29/20 documented as of this encounter
--- OUTSIDE RECORDS SUMMARY | 2024-05-09 14:02 | XMS_ITS | Encounter Summary ---
Author Organization [facility] [place] [address] Care Team Providers Care Lathe Operator Name Role Phone Charleen Williamson APRN Primary Care Provider +1 -[phone] Reason for Referral * Physical Therapy (Routine) - Closed Specialty Diagnoses / Procedures Referred By Contac t Referred To Contact Diagnoses Localized edema Malignant 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, estrogen receptor positive Barbara Cain PA [facility] GENERAL [place] [address] Physical Therapy, Raul Aponte [place] [address] Referral ID Status Reason Start Date Expiration Date V isits Requested Visits Authorized [id number] Closed Evaluate and Treat 07/19/2021 01/15/2022 12 12 Reason for Visit * Reason Onset Date Comments Arm Swelling 07/18/2021 Encounter Details Date Type Department Care Team (Late st Contact Info) Description 07/18/2021 Telephone Hematology [place] [address] Subha Holt RN Arm Swelling Social History Tobacco Use Types Packs/Day Years [...] Telephone Encounter - Subha Holt RN - 07/18/2021 10:43 AM EDT Images from the original note were not included. Referral Call received from patient was going to OT for wrist pain and last week hand looked swollen. Since then it is not just hand it is her whole arm too. Painful 6/10 achy when using and 5/10 when not using, Denies redness, no injuries, no warmth. Lower arm feels tight. Touching arm makes pain go up. Elevating arm Raul Aponte PT [place] fax Saw lymphedema specialist. Appointment. Tomorrow. Alis called to report OT noticed her hand looked swollen last week and since then the swelling has moved up her whole arm. 6/10 achy Pain when using and 5/10 pain otherwise. Denies warmth, redness,injury. Has PT appointment tomorrow. I will call PT to see if current referral is adequate for them to evaluate test and treat if it is indeed lymphedema and if not will pend new referral. Alis has an appointment with you 07/24. She is wondering what she can take for pain. She usually takes IBU for pain. Can she take this or should she take tylenol? Discussed elevating her arm. Barbara Cain, Subha Pantoja, RN Thanks, Bea. I think we should get an US of the arm to evaluate for DVT. Can you see where she would like to go (here vs [facility] or other) and get an order going? I agree with checking on PT referral too so they can do some lypmhedema work if that is it. Ibuprofen or tylenol is OK; can also alternate each -- just follow dosing/max on bottle. [facility] or . Referral pended to provider for review and signature and faxed to number above with provider notes,demographics, alergy and medication lists. Barbara Cain PA Andrews, Patricia A, DENISE; Walter Mcpherson, It's not the axilla, it would be the whole right arm. I will put in order now. Bea, please still ask PT to eyeball it tomorrow, and she should call us or go to ED if it is worsening before the US can be done. Call placed to patient to review plan Right arm swelling. Patient agrees with plan and will cancel PT appointment for Wednesday 07/19 and come to for US of right arm for rule out DVT. documented in this encounter Plan of Treatment Upcoming Encounters Date Type Department Care Team (Late st Contact Info) Description 02/13/2025 1:00 PM EDT Office Visit Radiation Oncology at [address] [phone] Eleonora Mensah MD [facility] [place] [address] Scheduled Referrals Name Type Priority Associated Diagnoses Orde r Schedule Referral to Physical Therapy Outpatient Referral Routine Localized edema Malignant 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, estrogen receptor positive Ordered: 07/19/2021 documented as of this encounter Visit Diagnoses Diagnosis Localized edema Edema Malignant 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, estrogen receptor positive documented in this encounter Care Teams Lathe Operator Relationship Specialty Start Date End Date Charleen Williamson APRN [address] [place] [address] PCP - General Family Medicine 06/29/20 documented as of this encounter
--- OUTSIDE RECORDS SUMMARY | 2024-05-09 14:02 | XMS_ITS | Encounter Summary ---
Author Organization [facility] Address [facility] [place] [address] Care Team Providers Care Lab Head Name Role Phone Charleen Williamson APRN Primary Care Provider [phone] [phone] Encounter Details Date Type Department Care Team (Late st Contact Info) Description 06/20/2021 Orders Only H[place]ology [place] [phone] Tyra Cornejo MD [facility] [address] HEMATOLOGY [place] [address] Social History Tobacco Use Types Packs/Day Years [...] EDT Office Visit Radiation Oncology at [address] [phone] Eleonora Mensah MD [facility] [place] [address] documented as of this encounter Visit Diagnoses Not on filedocumented in this encounter Care Teams Lab Head Relationship Specialty Start Date End Date Charleen Williamson APRN [address] [place] [address] PCP - General Family Medicine 06/29/20 documented as of this encounter
--- OUTSIDE RECORDS SUMMARY | 2024-05-09 14:02 | XMS_ITS | Encounter Summary ---
Author Organization [facility] Address [facility] [place] [address] Care Team Providers Care Solar Energy Systems Designer Name Role Phone Charleen Williamson APRN Primary Care Provider [phone] [phone] Encounter Details Date Type Department Care Team (Late st Contact Info) Description 05/21/2021 2:00 PM EST Office Visit Hematology/Oncology at [address] [phone] Omid Manning MD [facility] [address] [place] [address] Janet Wheeler APRN [facility] [place] [address] Malignant 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, estrogen receptor positive; HER2-positive carcinoma of right breast Social History [...] Sign Reading Time Taken Comments Blood Pressure 129/68 05/21/2021 1:45 PM EST Pulse 88 05/21/2021 1:45 PM EST Temperature 36.6 ??C (97.8 ??F) 05/21/2021 1:45 PM ES T Respiratory Rate 18 05/21/2021 1:45 PM EST Oxygen Saturation 99% 05/21/2021 1:45 PM EST Inhaled Oxygen Concentration - - Weight 85.5 kg (188 lb 9.6 oz) 05/21/2021 1:45 P M EST Height 175.3 cm (5' 9.02) 05/21/2021 1:45 PM ES T Body Mass Index 27.84 05/21/2021 1:45 PM EST documented in this encounter Progress Notes * Janet Wheeler, SURVEY CREW CHIEF - 05/21/2021 2:00 PM EST Hematology & Medical Oncology [address] [id number] Alis returns today to continue treatment for ER/AR+ HER2+ breast cancer ?HPI: 29 yo self-palpated a mass under the right nipple when she noticed it had inverted at the end of May 2020. Dx 06/29/20 [facility] [place]/AR + HER2 + right invasive carcinoma with [...] 1 node with microscopic disease. Consented to [place] trial evaluating axillary dissection vs RT and randomized to dissection: 0/13nodes positive. Not eligible for adjuvant tucatinib trial due to participation in the [place] axillary management trial. TDM-1 q 3 wks x 14 cycles planned as per [facility] trial results showing improved PFS with TDM-1 compared to trastuzumab in those who did not achieve a path CR with NAC. Interval history(05/21/21): Alis is in clinic today for follow-up of breast cancer and to continueadjuvant therapy with Kadcyla. She is also receiving RT. Complains of nausea on Day 2 and 3 post treatment. She is using the compazine and zofran with some effect. Numbness and tingling in her extremities minimal- she had a couple of brief episodes in her arms and legs that came and went quickly.No fever or chills. No cough. Eating and drinking well. Ms. Silva continues to see Dr. Cramer. She has an appointment with her in May. Denies any new lumps or bumps. No shortness of breath, chest pain or edema. No other focal complaints today. ?? Fhx: PGM with breast cancer in her 80's; paternal aunt with ovarian ca; 2 brothers without cancer; no cousins with breast or ovarian cancer. menses age 14 to present; no menses while on Depo provera. ? Review of Systems Constitutional: Positive for activity change. Very tired by ADL's., not working due to fatigue. HENT: Negative for nosebleeds. Eyes: Negative. Respiratory: Negative. Gastrointestinal: negative Endocrine: Negative. Genitourinary: Negative. Musculoskeletal: Negative. Skin: Negative. Allergic/Immunologic: Negative. Neurological: Negative. Psychiatric/Behavioral: Negative. ? Objective: There were no vitals taken for this visit. Vitals and nursing note reviewed. Constitutional: General: She is not in acute distress. HENT: Head: Normocephalic. Nose: No congestion or rhinorrhea. Eyes: General: No scleral icterus. Conjunctiva/sclera: Conjunctivae normal. Cardiovascular: Rate and Rhythm: Normal rate. Pulses: Normal pulses. Pulmonary: Effort: Pulmonary effort is normal. Lungs clear TO. Chest: Breasts: Right: Incision well healed. Abdominal: General: Abdomen is flat. Musculoskeletal: General: Normal range of motion. Cervical back: Normal range of motion. Skin: General: Skin is warm and dry. Neurological: General: No focal deficit present. Mental Status: She is alert and oriented to person, place, and time. Psychiatric: Mood and Affect: Mood normal. Behavior: Behavior normal. Thought Content: Thought content normal. Judgment: Judgment normal. ?echo 02/20/21 with stable EF Labs: 05/21/21- WBC-6.37 Hgb/Hct-13.2/37.7 Plt-178 ANC-4.29 Na-139 K+-3.7 BUN/Cr-13/0.8 Glucose-115 Ca-9.2 T. Bili-0.3 AST-31 ALT-56 Alk phos-91 Albumin-3.8 04/30/21- WBC-5.35 Hgb/Hct-12.3/36.8 Plt-203 ANC-3.39 Na-141 K+-3.7 BUN/Cr-16/0.8 Glucose-105 Ca-9.2 T. Bili-0.4 AST-18 ALT-26 Alk phos-74 Albumin-3.8 Assessment and Plan: ? #1 Breast cancer--30 yo with ER+ her2 + breast cancer , + clinical response to NAC. Partial path response. [id number] grade 2 er/pr + her2 + stage IIA 04/30/21- ADO-Trastuzumab Emtansine-Kadcyla IV 3.6mg/kg over 90 minutes every 3 weeks for 14 cycles. ?? # Fatigue--grade 2. Should start improving, seeking emotional support appropriately. ?? # Menopausal symptoms--stable. She is on Zoladex injections. Next due on 05/31/21. She is having hot flashes. No menstrual bleeding. ?? # Bone health--chronic LBP, worse with inactivity. Resumed seeing her chiropractor with good effect. ?? # Medication management --no new rx. Tamoxifen after RT. Alis presents today to continue treatment with Kadcyla IV. Labs and toxicities assessed and we will continue with current treatment plan. She has some mild nausea on day 2 and 3. Will add dexamethasone to premedication today. . Plan: ??1. Proceed with Kadcyla today as scheduled. 2. Continue radiation therapy as scheduled. Final treatment planned for 06/03/21. 3. Follow up in 3 weeks with CBC,CMP and 3rd cycle of Kadcyla . Alis voiced understanding of the plan and was given an opportunity to ask questions which I answered to the best of my ability.Alis understands she can call the clinic between visits with any questions/concerns or new symptoms. Janet Wheeler MSN, SURVEY CREW CHIEF, AOCNP Medical Oncology I spent 30 minutes, (including face to face and non-face to face time) for this encounter. This includes: Preparation for the visit: _x_ reviewing test results _x_ obtaining interim medical/surgical history __ reviewing patient completed questionnaires During the visit: _x_ obtaining the history/ROS _x_ performing medically appropriate examination and ROS _x_ reviewing test results with patient/family/caregiver _x_ discussing disease status _x_ counseling/educating the patient/family/caregiver __ ordering medications/tests/procedures _x_ referring and communicating with other health professionals Post visit: x__ documenting in medical record x__ communications with other health professionals __ other: documented in this encounter Plan of Treatment Upcoming Encounters Date Type Department Care Team (Late st Contact Info) Description 02/13/2025 1:00 PM EDT Office Visit Radiation Oncology at [address] [phone] Eleonora Mensah MD [facility] [place] [address] documented as of this encounter Visit Diagnoses Diagnosis Malignant 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, estrogen receptor positive HER2-positive carcinoma of right breast documented in this encounter Care Teams Solar Energy Systems Designer Relationship Specialty Start Date End Date Charleen Williamson, SURVEY CREW CHIEF [address] [place] [address] PCP - General Family Medicine 06/29/20 documented as of this encounter
--- OUTSIDE RECORDS SUMMARY | 2024-05-09 14:02 | XMS_ITS | Encounter Summary ---
[place] [address] Care Team Providers Care Block Machine Operator Name Role Phone Charleen Williamson APRN Primary Care Provider [phone] [phone] Reason for Visit * Reason Comments Injections Zoladex * Treatment/Therapy Plan Authorization (Routine) - Closed Specialty Diagnoses / Procedures Referred By Fawn weston Referred To Contact Diagnoses 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, estrogen receptor positive Procedures TC GOSERELIN ACETATE IMPLANT, 3.6MG (ZOLADEX) J9202 Zoladex (Goserelin) Tyra Cornejo MD [facility] DR [place] [address] [facility] [address] [place] [address] Referral ID Status Reason Start Date Expiration Date Visits Re quested Visits Authorized [id number] Closed 07/27/2020 07/14/2021 99 99 Encounter Details Date Type Department Care Team (Late st Contact Info) Description 05/31/2021 10:30 AM EST Infusion Hematology Oncology at [address] [phone] Malignant neoplasm of overlapping sites [...] Sign Reading Time Taken Comments Blood Pressure 114/69 05/31/2021 10:30 AM EST Pulse 86 05/31/2021 10:30 AM EST Temperature - - Respiratory Rate 16 05/31/2021 10:30 AM EST Oxygen Saturation 99% 05/31/2021 10:30 AM EST Inhaled Oxygen Concentration - - Weight - - Height - - Body Mass Index - - documented in this encounter Progress Notes * Charline Carpio RN - 05/31/2021 10:30 AM EST INFUSION THERAPY ADMINISTRATION NOTES DIAGNOSIS: Breast Cancer REASON FOR VISIT: SQ zoladex SUBJECTIVE: Alis Silva offers no complaints. OBJECTIVE: Patient Vitals for the past 24 hrs: Pulse Resp BP SpO2 O2 Device 05/31/21 1030 86 16 114/69 99 % RA Pre administration: Chemotherapy orders independently verified for drug name, route, and dosage per patient's height, weight and BSA by Charline Carpio, DENISE and Staff Pharmacist(s). REACTIONS (DESCRIPTION, TIME, INTERVENTION AND EFFECTIVENESS) none ASSESSMENT: Alis Silva was awake, alert and tolerated treatment well. Injection administered in LLQ. PLAN: Return to clinic per routine. documented in this encounter Plan of Treatment Upcoming Encounters Date Type Department Care Team (Late st Contact Info) Description 02/13/2025 1:00 PM EDT Office Visit Radiation Oncology at [address] [phone] [facility] [place] [address] documented as of this encounter Visit Diagnoses Diagnosis 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, estrogen receptor positive documented in this encounter Administered Medications Inactive Administered Medications - up to 3 most recent administrations Medication Order MAR Action Action Date Dose Rate Site goserelin (ZOLADEX) implant 3.6 mg 3.6 mg, Subcutaneous, ONCE, 1 dose, On Thu05/31/21 at 1030, Routine, This agent is restricted to outpatient use. Is this drug being given as an outpatient? Yes Given 05/31/2021 10:32 AM EST 3.6 mg Left Lower Quadrant lidocaine (Xylocaine) 1% (10 mg/mL) injection 10 mg 10 mg (1 mL), Subcutaneous, ONCE, 1 dose, On Thu05/31/21 at 1030, Order either Ice or lidocaine for the injection. Inject up to 3 mL, Routine Given 05/31/2021 10:30 AM EST 10 mg Left Lower Quadrant documented in this encounter Care Teams Block Machine Operator Relationship Specialty Start Date End Date Charleen Williamson APRN [address] [place] [address] PCP - General Family Medicine 06/29/20 documented as of this encounter
--- OUTSIDE RECORDS SUMMARY | 2024-05-09 14:02 | XMS_ITS | Encounter Summary ---
Author Organization [facility] Address [facility] [place] [address] Care Team Providers Care Catcher Plug Name Role Phone Charleen Williamson APRN Primary Care Provider [phone] [phone] Reason for Referral * Diagnostic Test (Routine) - Closed Specialty Diagnoses / Procedures Referred By Contac t Referred To Contact Cardiology Diagnoses Malignant 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, estrogen receptor positive Procedures Echocardiogram Transthoracic([facility] or [facility]) Germania Cornejo MD [facility] [address] [place] [address] [facility] [place] [address] Referral ID Status Reason Start Date Expiration Date V isits Requested Visits Authorized [id number] Closed Specialty Service Requested 05/20/2021 05/20/2022 1 1 Reason for Visit * Diagnostic Test (Routine) - Closed Specialty Diagnoses / Procedures Referred By Contac t Referred To Contact Cardiology Diagnoses Malignant 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, estrogen receptor positive Procedures Echocardiogram Transthoracic([facility] or [facility]) Germania Cornejo MD [facility] [address] [place] [address] [facility] [place] [address] Referral ID Status Reason Start Date Expiration Date V isits Requested Visits Authorized [id number] Closed Specialty Service Requested 05/20/2021 05/20/2022 1 1 Encounter Details Date Type Department Care Team (Latest Contact Info) Description 06/26/2021 2:08 PM EST - 06/26/2021 11:59 PM EST Hospital Encounter Non-Invasive Cardiology Lab [facility] [place] [address] Germania Cornejo MD [facility] [address] [place] [address] Malignant neoplasm of central portion of right [...] Medical Supply Misc by [facility].(Non-Drug; Combo Route) route. Remedy [...] EDT Office Visit Radiation Oncology at [address] [phone] Eleonora Mensah MD [facility] [address] [place] [address] documented as of this encounter Procedures Procedure Name Priority Date/Time Associated Diagnosis Comments ECHO COMPLETE W CONTRAST Routine 06/26/2021 3:53 PM EST Malignant 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, estrogen receptor positive documented in this encounter Results * ECHO COMPLETE W CONTRAST (06/26/2021 3:53 PM EST) EF 61 HEARTLAB SYSTEM Anatomical Region Laterality Modality Other 06/26/2021 2:40 PM EST Narrative 06/26/2021 4:07 PM EST ?[facility] ?[address] ? [place] [address] ?Voice: ?Fax: ? Echocardiogram Report Name: ALIS SILVA ? Study Date: 06/26/2021 02:40 PMBP: 122/64 mmHg ? Patient Location: : 1990 ? Height: 175 cm ? Account: [id number] Age: 30 yrs ? Weight: 85 kg Gender: Female ?BSA: 2.0 m2 Ordering Physician: GERMANIA CORNEJO Referring Physician: GERMANIA CORNEJO Performed By: Jolly Jo RDCS Reason For Study: Malignant 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, estrogen receptor positive Exam Location: [facility]. Interpretation Summary Left ventricle is of normal size. Wall thickness is normal. The left ventricular ejection fraction is 61% by Garcia's biplane. There are no segmental wall motion abnormalities. The right ventricle is of normal size. Right ventricular systolic function is normal. No significant valve disease. Compared to study from 02/20/2021, findings are similar. Procedure Complete-[id number]. Image enhancement Definity was used for left [...] Procedure Note Gio Haywood MD - 06/26/2021 [facility] [address] [place] [address] Voice: Fax: Echocardiogram Report Name: ALIS SILVA Study Date: 202:40 PMBP: 122/64 mmHg Patient Location: : 1990 Height: 175 cm Account: [id number] Age: 30 yrs Weight: 85 kg Gender: Female BSA: 2.0 m2 Ordering Physician: GERMANIA CORNEJO Referring Physician: GERMANIA CORNEJO Performed By: Jolly Jo RDCS Reason For Study: Malignant neoplasm of central portion of right breastin female, estrogen receptor positive Exam Location: [facility]. Interpretation Summary Left ventricle is of normal size. Wall thickness is normal. The leftventricular ejection fraction is 61% by Garcia's biplane. There are no segmental wallmotion abnormalities. The right ventricle is of normal size. Right ventricular systolic functionis normal. No significant valve disease. Compared to study from 02/20/2021, findings are similar. Procedure Complete-[id number]. Image enhancement Definity was used for left [...] MAR Action Action Date Dose Rate Site perflutren lipid microspheres (Definity) injection 0.5 mL 0.5 mL, Intravenous, ONCE PRN, 1 dose, Starting on Thu06/26/21 at 1554, Until Thu06/26/21 at 1500, Other, for enhancement of sub-optimal echo images, Echo Lab (Intra-Procedure), Routine Given 06/26/2021 3:00 PM EST 1.5 mLs documented in this encounter Care Teams Catcher Plug Relationship Specialty Start Date End Date Charleen Williamson APRN [address] [place] [address] PCP - General Family Medicine 06/29/20 documented as of this encounter
--- OUTSIDE RECORDS SUMMARY | 2024-05-09 14:03 | XMS_ITS | Encounter Summary ---
Author Organization [facility] Address [facility] [place] [address] Care Team Providers Care Document Control Associate Name Role Phone ClayNiharika packerhryn Christopher HAYNES Primary Care Provider [phone] [phone] Encounter Details Date Type Department Care Team (Late st Contact Info) Description 02/26/2021 Orders Only Hematology [place] [address] Tyra Cornejo MD [facility] DR HEMATOLOGY [place] [address] Social History Tobacco Use Types Packs/Day Years Used Date Smoking Tobacco: Never Smokeless Tobacco: Never Alcohol Use Standard Drinks/Week Comments Not Currently 0 (1 standard drink = 0.6 oz pur e alcohol) Overall Financial Resource Strain (CARDIA) Answe r Date Recorded How hard is it for you to pa y for the very basics like food, housing, medical care, and heating? Hard 07/04/2020 Sex and Gender Information Value Date Recorded Sex Assigned at Female 07/19/2020 8:39 AM EDT Gender Identity Female 08/04/2022 1:11 PM EDT Sexual Orientation Straight 08/04/2022 1: 11 PM EDT documented as of this encounter Plan of Treatment Upcoming Encounters Date Type Department Care Team (Late st Contact Info) Description 02/13/2025 1:00 PM EDT Office Visit Radiation Oncology at [address] [phone] Eleonora Mensah MD [facility] [place] [address] documented as of this encounter Visit Diagnoses Not on filedocumented in this encounter Care Teams Document Control Associate Relationship Specialty Start Date End Date Charleen Williamson APRN [address] [place] [address] PCP - General Family Medicine 06/29/20 documented as of this encounter
--- OUTSIDE RECORDS SUMMARY | 2024-05-09 14:03 | XMS_ITS | Encounter Summary ---
Author Organization [facility] [place] [address] Care Team Providers Care Obstetrical Nurse Name Role Phone Charleen Williamson APRN Primary Care Provider [phone] [phone] Reason for Visit * Treatment/Therapy Plan Authorization (Routine) - Closed Specialty Diagnoses / Procedures Referred By Contac t Referred To Contact Diagnoses 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, estrogen receptor positive Procedures TC GOSERELIN ACETATE IMPLANT, 3.6MG (ZOLADEX) [id number] Zoladex (Goserelin) Tyra Cornejo MD [facility] [address] [place] [address] [facility] [address] [place] [address] Referral ID Status Reason Start Date Expiration Date Visits Re quested Visits Authorized [id number] Closed 07/27/2020 07/14/2021 99 99 Encounter Details Date Type Department Care Team (Latest Contact Info) Description 02/26/2021 1:45 PM EDT - 02/26/2021 11:59 PM EDT Hospital Encounter Hematology [place] [address] Malignant neoplasm of overlapping sites [...] EVERY 8 HOURS NEEDED FOR ANXIETY 07/09/2020 clotrimazole (Mycelex) 10 mg Jennifer 01/02/2021 11/15/2021 dexamethasone (Decadron) 4 mg Tablet 01/02/202104/30 sulfamethoxazole-trime thoprim DS (Bactrim DS) 800-160 mg Tablet Take 1 tablet by mouth 2 times daily for 10 days. 20 tablet 1 02/26/2021 03/08/2021 ibuprofen (Advil) 600 mg Tablet Take 1 tablet by mouth every 6 hours. 30 tablet 12 01/28/2021 03/24/2022 oxyCODONE (Roxicodone) 5 mg Tablet Take 1 tablet by mouth every 6 hours as needed for Pain. 10 tablet 01/03/2021 07/03/2021 traZODone (Desyrel) 50 mg Tablet Take 3 tablets by mouth nightly. 90 tablet 3 12/20/2020 04/18/2021 sertraline (ZOLOFT) 100 mg Tablet Take 200 [...] Progress Notes * Kymberly Harris RN - 02/26/2021 5:03 PM EDT Patient Name: Alis Silva Patient Age: 30 y.o. Birthdate: 1990 Admit date: 02/26/2021 Attending Physician: No att. providers found Access visit. See MAR and/or flowsheet. Zoladex administered, tolerated well. documented in this encounter Plan of Treatment Upcoming Encounters Date Type Department Care Team (Late st Contact Info) Description 02/13/2025 1:00 PM EDT Office Visit Radiation Oncology at [address] [phone] Eleonora Mensah MD [facility] [place] [address] documented as of this encounter Visit Diagnoses Diagnosis 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, estrogen receptor positive documented in this encounter Administered Medications Inactive Administered Medications - up to 3 most recent administrations Medication Order MAR Action Action Date Dose Rate Site goserelin (ZOLADEX) implant 3.6 mg 3.6 mg, Subcutaneous, ONCE, 1 dose, On Thu02/26/21 at 1630, Routine, This agent is restricted to outpatient use. Is this drug being given as an outpatient? Yes Given 02/26/2021 4:47 PM EDT 3.6 mg Right Lower Quadrant lidocaine (Xylocaine) 1% (10 mg/mL) injection 10 mg 10 mg (1 mL), Subcutaneous, ONCE, 1 dose, On Thu02/26/21 at 1630, Order either Ice or lidocaine for the injection. Inject up to 3 mL, Routine Given 02/26/2021 4:47 PM EDT 10 mg Right Lower Quadrant documented in this encounter Care Teams Obstetrical Nurse Relationship Specialty Start Date End Date Charleen Williamson APRN [address] [place] [address] PCP - General Family Medicine 06/29/20 documented as of this encounter
--- OUTSIDE RECORDS SUMMARY | 2024-05-09 14:03 | XMS_ITS | Encounter Summary ---
Author Organization [facility] [place] [address] Care Team Providers Care Surgical Resident Name Role Phone Charleen Williamson APRN Primary Care Provider +1 -[phone] Encounter Details Date Type Department Care Team (Latest Contact Info) Description 02/26/2021 1:44 PM EDT Hospital Encounter Hematology [place] [phone] Malignant neoplasm of central portion of right [...] 11/15/2021 dexamethasone (Decadron) 4 mg Tablet 01/02/202104/30 ibuprofen (Advil) 600 mg Tablet Take 1 [...] Progress Notes * Michaela Mcleod RN - 02/26/2021 2:01 PM EDT Patient Name: Alis Silva Patient Age: 30 y.o. Birthdate: 1990 Admit date: 02/26/2021 Attending Physician: No att. providers found Access visit. See MAR and/or flowsheet. documented in this encounter Plan of Treatment Upcoming Encounters Date Type Department Care Team (Late st Contact Info) Description 02/13/2025 1:00 PM EDT Office Visit Radiation Oncology at [address] [phone] Eleonora Mensah MD [facility] [place] [address] Scheduled Orders Name Type Priority Associated Diagnoses Orde r Schedule urine, qualitative ([place]) Lab Routine Malignant 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, estrogen receptor positive 1 Occurrences starting 02/26/2021 until 02/26/2021 documented as of this encounter Procedures Procedure Name Priority Date/Time Associated Diagnosis Comments HEMOGRAM STAT 02/26/2021 1:55 PM EDT Malignant 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, estrogen receptor positive DIFFERENTIAL, AUTOMATED STAT 02/26/2021 1:55 PM EDT Malignant 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, estrogen receptor positive HC CBC,PLT & AUTO DIFF STAT 1:55 PM EDT Malignant 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, estrogen receptor positive COMPREHENSIVE METABOLIC PANEL STAT 02/26/2021 1:55 PM EDT Malignant 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, estrogen receptor positive documented in this encounter Results * Differential, Automated (02/26/2021 1:55 PM EDT) Pathologist [facility] Neutrophil % 61.6 % [facility] Neutrophil Absolute 5.27 1.70 - 6.10 x10(3)/[facility] Lymph % 30.3 % [facility] Lymphocytes Abs 2.6 0.9 - 3.2 x10(3)/[facility] Monocyte % 6.8 % [facility] Monocyte Abs 0.6 0.3 - 0.9 x10(3)/[facility] Eos % 0.6 % [facility] Eosinophils Abs 0.0 0.0 - 0.4 x10(3)/[facility] Basophil % 0.5 % [facility] Baso Absolute 0.0 0.0 - 0.1 x10(3)/[facility] Immature Gran % 0.20 % [facility] Comment: Immature granulocytes(IG's)percentage and absolute count will include metamyelocytes, myelocytes, and promyelocytes. Blood smears from CBCs yielding IG's will be scanned manually for concordance. If this scan disagrees with the automated IG or if promyelocytes are noted, a manual differential will be performed. Immature Gran Absolute 0.02 0.00 - 0.04 x10(3)/[facility] Blood 02/26/2021 1:55 PM EDT 02/26/2021 2:02 PM EDT Narrative Resulting Agency Comment Spec In Lab Tyra Cronejo MD HEMATOLOGY ORDERABL ES [facility] [place] [address] * (ABNORMAL) Hemogram (02/26/2021 1:55 PM EDT) Pathologist [facility] White Blood Cell 8.6 4.0 - 9.5 x10(3)/mc L [facility] Red Blood Cell 4.17 4.00 - 5.21 x10(6)/mc L [facility] Hemoglobin 13.1 11.7 - 15.5 g/dL [facility] Hematocrit 37.5 35.7 - 45.8 % [facility] Mean Cell Volume 89.9 82.6 - 94.4 fL [facility] Mean Cell Hemoglobin 31.4 27.1 - 32.0 pg [facility] Mean Cell Hemoglobin Concentration 34.9 31.7 - 35.0 g/dL [facility] Platelet 245 145 - 357 x10(3)/ L [facility] RDW Standard Deviation 36.7(L) 37.0 - 46.0 [facility] RDW coefficient of variation 11.0(L) 11.5 - 14.1 % [facility] Mean Platelet Volume 8.4 7.6 - 12.9 [facility] NRBC% auto 0.0 % [facility] NRBC Absolute 0.000 0.000 - 0.000 x10(3)/ L [facility] Blood 02/26/2021 1:55 PM EDT 02/26/2021 2:02 PM EDT Narrative Resulting Agency Comment Spec In Lab Tyra Cornejo MD HEMATOLOGY ORDERABL ES [facility] [place] [address] * (ABNORMAL) Comprehensive metabolic panel (non-fasting) (02/26/2021 1:55 PM EDT) Glucose 140 65 - 199 mg/dL [facility] Comment:Diabetes: >=200 mg/d L plus symptoms Blood Urea Nitrogen 11 8 - 18 mg/dL [facility] Creatinine 0.72 0.70 - 1.20 mg/dL [facility] Sodium 138 135 - 145 mmol/L [facility] Potassium 4.1 3.5 - 5.0 mmol/L [facility] Comment: Please note: ??Patients with WBC >100,000 may have falsely elevated Potassium levels. ??For accurate Potassium quantification in these patients send serum separator tube (gold top) for subsequent determinations. ??Contact the Clinical Chemistry Laboratory if there are any questions. Chloride 103 98 - 107 mmol/L [facility] Carbon Dioxide 24 22 - 31 mmol/L [facility] Anion Gap 11 5 - 15 mmol/L [facility] Calcium 9.9 8.5 - 10.5 mg/dL [facility] Protein, Total 8.5(H) 6.1 - 8.0 g/dL [facility] Albumin 4.3 3.2 - 5.2 g/dL [facility] Aspartate Aminotransferase Not Perf 0 - 30 [facility] Comment:Unable to quantitate due to sample hemolysis. Sample redraw suggested. Alanine Aminotransferase 16 0 - 30 unit/L [facility] Alkaline Phosphatase 90 35 - 105 unit/L [facility] Bilirubin, Total 0.2 0.2 - 1.3 mg/dL [facility] Est Glomerular Filtration Rate 114 >=60 mL/min/1. 73 m?? [facility] Comment: This patient? s estimated glomerular filtration rate (eGFR) is between 114 mL/min/1.73 m2 (patients with less muscle mass) and 132 mL/min/1.73 m2 (patients with more muscle mass) [...] and symptoms in addition to eGFR. Blood 02/26/2021 1:55 PM EDT 02/26/2021 2:02 PM EDT Narrative Resulting Agency Comment Spec In Lab Tyra Cornejo MD CHEMISTRY ORDERABLE S [facility] [place] [address] documented in this encounter Visit Diagnoses Diagnosis Malignant 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, estrogen receptor positive documented in this encounter Administered Medications Inactive Administered Medications - up to 3 most recent administrations Medication Order MAR Action Action Date Dose Rate Site heparin (pf) (porcine) (100 units/mL) flush 5 mL syringe 500 Units 500 Units, Intravenous, ONCE PRN, Starting on Thu02/26/21 at 1350, Until Thu02/27/21 at 0440, Line Care, Routine Given 02/26/2021 2:00 PM EDT 500 Units sodium chloride 0.9 % (flush) (BD PosiFlush Normal Saline 0.9) flush 20 mL 20 mL, Intravenous, EVERY 1 MIN PRN, Starting on Thu02/26/21 at 1349, Until Thu02/27/21 at 0440, Technical Research Scientist, Routine Given 02/26/2021 2:00 PM EDT 20 mLs documented in this encounter Care Teams Surgical Resident Relationship Specialty Start Date End Date Charleen Williamson APRN [address] [place] [address] PCP - General Family Medicine 06/29/20 documented as of this encounter
--- OUTSIDE RECORDS SUMMARY | 2024-05-09 14:03 | XMS_ITS | Encounter Summary ---
[place] [address] Care Team Providers Care Freedom Of Information Officer Name Role Phone Charleen Williamson APRN Primary Care Provider +1 [phone] Reason for Visit * Reason Comments Injections Zoladex Breast Cancer * Treatment/Therapy Plan Authorization (Routine) - Closed Specialty Diagnoses / Procedures Referred By Fawn weston Referred To Contact Diagnoses 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, estrogen receptor positive Procedures TC GOSERELIN ACETATE IMPLANT, 3.6MG (ZOLADEX) [id number] Zoladex (Goserelin) Tyra Cornejo MD [facility] DR [place]Y [place] [address] [facility] [address] [place] [address] Referral ID Status Reason Start Date Expiration Date Visits Re quested Visits Authorized [id number] Closed 07/27/2020 07/14/2021 99 99 Encounter Details Date Type Department Care Team (Late st Contact Info) Description 01/25/2021 12:30 PM EDT Infusion Hematology Oncology at [address] [phone] Malignant neoplasm of overlapping sites [...] Sign Reading Time Taken Comments Blood Pressure 138/74 01/25/2021 12:27 PM EDT Pulse 84 01/25/2021 12:27 PM EDT Temperature 36.6 ??C (97.8 ??F) 01/25/2021 1 2:27 PM EDT Respiratory Rate 18 01/25/2021 12:2 7 PM EDT Oxygen Saturation 99% 01/25/2021 12: 27 PM EDT Inhaled Oxygen Concentration - - Weight 84.7 kg (186 lb 12.8 oz) 021 12:27 PM EDT Height - - Body Mass Index 27.76 12/19/2020 8:45 AM EDT documented in this encounter Progress Notes * Mireille Gasca RN - 01/25/2021 12:30 PM EDT INFUSION THERAPY ADMINISTRATION NOTES DIAGNOSIS: Breast CA REASON FOR VISIT: Zoladex Injection SUBJECTIVE Alis is here for her Zoladex injection. She reports that she has surgery scheduled for Mon 01/28. OBJECTIVE Pre administration: Orders independently verified for drug name, route, and dosage by Shea Gasca RN and pharmacist on-site. REACTIONS (DESCRIPTION, TIME, INTERVENTION AND EFFECTIVENESS) none ASSESSMENT Ms. Silva was awake, alert and she tolerated treatment well. PLAN Surgery scheduled for 01/28. She currently is scheduled for SIM on 02/[address] Mensah but does not feel that she will be ready for that. RN message to Dr. Mensah and rad/onc nursing to review plan for SIM and contact patient to discuss. documented in this encounter Plan of Treatment Upcoming Encounters Date Type Department Care Team (Late st Contact Info) Description 02/13/2025 1:00 PM EDT Office Visit Radiation Oncology at [address] [phone] Eleonora eMnsah MD [facility] RADIATION ONCOLOGY [place] [address] documented as of this encounter Visit Diagnoses Diagnosis 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, estrogen receptor positive documented in this encounter Administered Medications Inactive Administered Medications - up to 3 most recent administrations Medication Order MAR Action Action Date Dose Rate Site goserelin (ZOLADEX) implant 3.6 mg 3.6 mg, Subcutaneous, ONCE, 1 dose, On Thu01/25/21 at 1245, Routine, This agent is restricted to outpatient use. Is this drug being given as an outpatient? Yes Given 01/25/2021 12:49 PM EDT 3.6 mg Left Lower Quadrant lidocaine (Xylocaine) 1% (10 mg/mL) injection 10 mg 10 mg (1 mL), Subcutaneous, ONCE, 1 dose, On Thu01/25/21 at 1245, Order either Ice or lidocaine for the injection. Inject up to 3 mL, Routine Given 01/25/2021 12:45 PM EDT 10 mg Left Lower Quadrant documented in this encounter Care Teams Freedom Of Information Officer Relationship Specialty Start Date End Date Charleen Williamson APRN [address] [place] [address] PCP - General Family Medicine 06/29/20 documented as of this encounter
--- OUTSIDE RECORDS SUMMARY | 2024-05-09 14:03 | XMS_ITS | Encounter Summary ---
Author Organization [facility] [place] [address] Care Team Providers Care Water Resource Consultant Name Role Phone Charleen Williamson APRN Primary Care Provider +1 -[phone] Encounter Details Date Type Department Care Team (Latest Contact Info) Description 02/26/2021 1:00 PM EDT Clinical Support [place] [phone] Visit for wound check Social History Tobacco Use Types Packs/Day Years [...] as of this encounter Progress Notes * Chary Garcia, RN - 02/26/2021 1:00 PM EDT Pt was seen and evaluated by Dr Hunt documented in this encounter Plan of Treatment Upcoming Encounters Date Type Department Care Team (Late st Contact Info) Description 02/13/2025 1:00 PM EDT Office Visit Radiation Oncology at [address] [phone] Eleonora Mensah MD [facility] [place] [address] documented as of this encounter Visit Diagnoses Diagnosis Visit for wound check Encounter for other specified aftercare documented in this encounter Care Teams Water Resource Consultant Relationship Specialty Start Date End Date Charleen Williamson APRN [address] [place] [address] PCP - General Family Medicine 06/29/20 documented as of this encounter
--- OUTSIDE RECORDS SUMMARY | 2024-05-09 14:03 | XMS_ITS | Encounter Summary ---
Author Organization [facility] Address [facility] [place] [address] Care Team Providers Care Business Development Sales Executive Name Role Phone Charleen Williamson APRN Primary Care Provider +1 -[phone] Reason for Visit * Reason Comments Follow-up Encounter Details Date Type Department Care Team (Late st Contact Info) Description 02/26/2021 3:00 PM EDT Office Visit Hematology [place] [address] Tyra Cornejo MD [facility] DR HEMATOLOGY [place] [address] Malignant neoplasm of central portion of right [...] Sign Reading Time Taken Comments Blood Pressure 126/80 02/26/2021 2:55 PM EDT Pulse 93 02/26/2021 2:55 PM EDT Temperature 36.8 ??C (98.2 ??F) 02/26/2021 2 :55 PM EDT Respiratory Rate 22 02/26/2021 2:55 PM EDT Oxygen Saturation 98% 02/26/2021 2:5 5 PM EDT Inhaled Oxygen Concentration - - Weight 84.2 kg (185 lb 9.6 oz) 02/27/20 2:55 PM EDT with shoes Height 175.3 cm (5' 9.02) 02/26/2021 2 :55 PM EDT with shoes Body Mass Index 27.4 02/26/2021 2:55 PM EDT documented in this encounter Progress Notes * Tyra Cornejo MD - 02/26/2021 3:00 PM EDT Patient ID: Alis Silva is a 30 y.o. female. ?? Cc: breast cancer ?? 29 yo self-palpated a mass under the right nipple when she noticed it had inverted at the end of May 2020. Dx 06/29/20 [facility], ER/OR + HER2 + right invasive carcinoma with [...] 1 node with microscopic disease. Consented to [place] trial evaluating axillary dissection vs RT and randomized to dissection: 0/13nodes positive. Not eligible for adjuvant tucatinib trial due to participation in the [place] axillary management trial. TDM-1 q 3 wks [...] Negative. Psychiatric/Behavioral: Negative. ? Objective: Physical Exam Last value Range last 8 hrs Temperature Temp: 36.8 ??C (98.2 ??F) Temp: -- Heart Rate Heart Rate: 93 Heart Rate: -- Blood Pressure BP: 126/80 BP: -- Respiratory Rate Resp: 22 Resp: -- SpO2 SpO2: 98 % SpO2: -- Vitals and nursing note reviewed. Constitutional: General: She is not in acute distress. HENT: Head: Normocephalic. Right Ear: External ear normal. Left Ear: External ear normal. Nose: No congestion or rhinorrhea. Eyes: General: No scleral icterus. Conjunctiva/sclera: Conjunctivae normal. Cardiovascular: Rate and Rhythm: Normal rate. Pulses: Normal pulses. Pulmonary: Effort: Pulmonary effort is normal. Chest: Breasts: Right: chest wall healing well Abdominal: General: Abdomen is flat. Musculoskeletal: General: [...] Judgment normal. ?echo 02/20/21 with stable EF Assessment and Plan: ?? No problem-specific Assessment & Plan notes found for this encounter. ?? #1 Breast cancer--30 yo with ER+ her2 + breast cancer , + clinical response to NAC. Partial path response. [id number] grade 2 er/pr + her2 + stage IIA ? #2 Chemotherapy--monitoring for toxicity--thrombocytopenia resolved. ?? #3 Fatigue--grade 2. Should start improving, seeking emotional support appropriately. ?? #4 Menopausal symptoms--stable. ?? #5 Bone health--chronic LBP, worse with inactivity. Resumed seeing her chiropractor with good effect. ?? #6 Medication management --no new rx. Tamoxifen after RT. ?? Plan: f/u with rad onc and St [facility] infusion to start TDM-1 ?? After RT: Breast cancer recovery trial and PHIT trial * Jh Nurys T - 02/26/2021 3:00 PM EDT Patient ID: Alis Silva is a 30 y.o. female. ?? Cc: breast cancer ?? Interval history: Since her last cycle of chemotherapy with TCH-P 11/29/20, the patient has been feeling overall well. She underwent R mastectomy and R axillary targeted node excision by Dr. Hunt which revealed residual invasive carcinoma with ductal and lobular features, dermal lymphovascular invasion present and probable or definite response to neoadjuvant therapy. 1/ LN+ with 1mm of metastasis. R axillary LN dissection 01/28/21 revealed 0/13 LN+. She also endorses anxiety / depression related to her illness and seeks counseling services. She isstable on sertraline and lorazepam under the guidance of her PCP. ?? 29 yo self-palpated a mass under the right nipple when she noticed it had inverted at the end of May 2020. Dx 06/29/20 [facility], ER/OR + HER2 + right invasive carcinoma with [...] covid vaccination planned 08/14 Cycle 1 TCH-P 08/17/20 Cycle 6 TCH-P 11/29/20 01/03/21- R mastectomy and R axillary targeted node excision which revealed 1/1 LN+. 1mm metastasis in 1 LN. No extranodal extension present. R breast mastectomy revealed residual invasive carcinoma with ductal and lobular features, dermal lymphovascular invasion present. Partial pathalogic response. Probable or definite response to presurgical therapy. ER 70-80%, OR 1-10%, HER2+. pTX pN1mi. 01/28/21- R axillary LN dissection. 0/13 LN+. ?? Fhx: PGM with breast cancer in her 80's; paternal aunt with ovarian ca; 2 brothers without cancer; no cousins with breast or ovarian cancer. menses age 14 to present; no menses while on Depo provera. ? Review of Systems PE: Abdominal: General: Abdomen is flat. Musculoskeletal: General: Normal range of motion. Cervical back: Normal range of motion. Skin: General: Skin is warm and dry. Neurological: General: No focal deficit present. Mental Status: She is alert and oriented to person, place, and time. Psychiatric: Mood and Affect: Mood normal. Behavior: Behavior normal. Thought Content: Thought content normal. Judgment: Judgment normal. ?? Assessment and Plan: ?? 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 In patients who were treated with neoadjuvant chemotherapy, such as Ms. Silva, are treated with [id number] targeted therapy in the adjuvant setting, with the specific chemotherapy regimen dependent on the pathalogic findings of response to treatment. Because this patient was found to have residualdisease, we will offer her 14 cycles of TDM-1, which is an antibody-drug conjugate of Trastuzumab, in the adjuvant setting (Carmencita et al. JCO. 2020). In addition, she endorses anxiety and depression worse from baseline associated with her illness. She is stable on lorazepam and sertraline under the guidance of her primary care physician and would like counseling services in addition. ?? #1 Breast cancer--30 yo with ER+ her2 + breast cancer s/p TCH-P x 6, s/p R mastectomy with residualdisease ?? #2 Chemotherapy--monitoring for toxicity-- resolved, platelets 245k #3 Bone health--chronic LBP, worse with inactivity. She can return to her chiropractor as needed. #4 Depression / anxiety -- will help with coordinating counseling services. ? Plan: f/u with rad onc and St J infusion to start TDM-1 ?? After RT: Breast cancer recovery trial and PHIT trial Help with coordinating counseling services for depression / anxiety related to illness documented in this encounter Plan of Treatment Upcoming Encounters Date Type Department Care Team (Late st Contact Info) Description 02/13/2025 1:00 PM EDT Office Visit Radiation Oncology at [address] [phone] Eleonora Mensah MD [facility] DR RADI[place] [address] documented as of this encounter Visit Diagnoses Diagnosis Malignant 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, estrogen receptor positive documented in this encounter Care Teams Business Development Sales Executive Relationship Specialty Start Date End Date Charleen Williamson, NURSE RESEARCHER [address] [place] [address] PCP - General Family Medicine 06/29/20 documented as of this encounter
--- OUTSIDE RECORDS SUMMARY | 2024-05-09 14:03 | XMS_ITS | Encounter Summary ---
Author Organization [facility] [place] [address] Care Team Providers Care Gis Database Administrator Name Role Phone Charleen Williamson APRN Primary Care Provider [phone] [phone] Reason for Referral * Physical Therapy (Routine) - Closed Specialty Diagnoses / Procedures Referred By Contac t Referred To Contact Physical Therapy Diagnoses Malignant neoplasm of female breast, unspecified estrogen receptor status, unspecified laterality, unspecified site of breast Eulalio Hunt MD [facility] [place] [address] Referral ID Status Reason Start Date Expiration Date V isits Requested Visits Authorized [id number] Closed Evaluate and Treat 02/13/2021 08/12/2021 12 12 Encounter Details Date Type Department Care Team (Late st Contact Info) Description 02/13/2021 Orders Only General Surgery at [place] [phone] Eulalio Hunt MD [facility] [address] Malignant neoplasm of female breast, unspecified estrogen receptor status, unspecified laterality, unspecified site of breast Social History Tobacco [...] EDT Office Visit Radiation Oncology at [address] [phone] Eleonora Mensah MD [facility] [place] [address] Scheduled Referrals Name Type Priority Associated Diagnoses Orde r Schedule Referral to Physical Therapy Outpatient Referral Routine Malignant neoplasm of female breast, unspecified estrogen receptor status, unspecified laterality, unspecified site of breast Ordered: 02/13/2021 documented as of this encounter Visit Diagnoses Diagnosis Malignant neoplasm of female breast, unspecified estrogen receptor status, unspecified laterality, unspecified site of breast documented in this encounter Care Teams Gis Database Administrator Relationship Specialty Start Date End Date Charleen Williamson APRN [address] [place] [address] PCP - General Family Medicine 06/29/20 documented as of this encounter
--- OUTSIDE RECORDS SUMMARY | 2024-05-09 14:03 | XMS_ITS | Encounter Summary ---
[place] [address] Care Team Providers Care Refrigerator Car Icer Name Role Phone ClayCharleen APRN Primary Care Provider +1 [phone] Reason for Visit * Reason Onset Date Comments Other 01/22/2021 SDM Encounter Details Date Type Department Care Team (Late st Contact Info) Description 01/22/2021 Telephone [facility] [place] [phone] Annette Alvarez Other (SDM) Social History Tobacco Use Types Packs/Day Years [...] encounter Miscellaneous Notes * Telephone Encounter - Annette Alvarez - 01/25/2021 2:27 PM EDT Left another message for patient in effort to offer her decision support counseling, based on referral from Dr. Eleonora Mensah. Plan: Will send patient myd-h message with contact information. Annette Alvarez MA Shared Decision Making Specialist Knowledge Map * Telephone Encounter - Annette Alvarez - 01/22/2021 2:29 PM EDT Left message for patient after receiving referral from Radiation Oncologist, Dr. Eleonora Mensah, to offer patient decision support counseling. Will try patient again later in the week if no return call. Annette Alvarez MA Shared Decision Making Specialist Knowledge Map documented in this encounter Plan of Treatment Upcoming Encounters Date Type Department Care Team (Late st Contact Info) Description 02/13/2025 1:00 PM EDT Office Visit Radiation Oncology at [address] [phone] Eleonora Mensah MD [facility] [place] [address] documented as of this encounter Visit Diagnoses Not on filedocumented in this encounter Care Teams Refrigerator Car Icer Relationship Specialty Start Date End Date Charleen Williamson APRN [address] [place] [address] PCP - General Family Medicine 06/29/20 documented as of this encounter
--- OUTSIDE RECORDS SUMMARY | 2024-05-09 14:03 | XMS_ITS | Encounter Summary ---
Author Organization [facility] Address [facility] [place] [address] Care Team Providers Care Bilingual School Psychologist Name Role Phone Charleen Williamson APRN Primary Care Provider [phone] [phone] Reason for Visit * Consultation (Routine) - Closed Specialty Diagnoses / Procedures Referred By Contac t Referred To Contact Radiation Oncology Diagnoses Malignant neoplasm of upper-outer quadrant of right female breast, unspecified estrogen receptor status Procedures Simulation for Radiation Therapy Planning Eleonora Mensah MD [facility] [place] [address] [facility] Rad Onc Office [address] [place] [phone] Referral ID Status Reason Start Date Expiration Date V isits Requested Visits Authorized [id number] Closed Consult, Test & Treat 01/21/2021 01/21/2022 33 33 Encounter Details Date Type Department Care Team (Latest Contact Info) Description 03/19/2021 11:30 AM EST Ancillary Appointment Radiation Oncology at [address] [phone] Eleonora Mensah MD [facility] [place] [address] Malignant neoplasm of central portion of right female breast, unspecified estrogen receptor status Social History Tobacco Use Types Packs/Day Years [...] this encounter Patient Instructions * Patient Instructions* Gretta Burk RN - 03/19/2021 11:30 AM EST Information for Patients receiving radiation therapy to the Breast Approximately two weeks after your first treatment, you may begin to experience side effects causedby the radiation. These effects may continue throughout the treatment period and not start improving until 1-2 weeks after treatment is completed. Your doctor will tell you which side effects you aremost likely to experience, when you will notice them and how long they might last. It is important to follow the appropriate instructions to minimize your discomfort. Skin Care ??? Wash skin in the treatment field with lukewarm water and mild or moisturizing, unscented soap daily. Blot skin dry with a soft towel. ??? Do not apply any ointment, salve, deodorant, perfume, cologne, cosmetic or self-remedy to the treatment area while you are undergoing radiation and for 1-2 weeks following treatment. An all natural deodorant with no aluminum can be used if necessary. ??? Moisturizing cream will be provided for you. This may be used in the treatment area once daily beginning on your first treatment day. Do not apply 2 hours before your radiation treatments. As dryness/redness develop you can use this more often. ??? Do not rub or scratch the skin in the treatment field. This includes shaving unless you use an electric razor. If your skin becomes dry or itchy, tell your nurse or doctor. If necessary, your doctor may order a medication specifically for this problem. ??? Do not use hot water bottles, heating lights, electric heating pads, or hot packs to the treatment area. ??? Keep treated areas out of the sun throughout the treatment period. Be careful of sun exposure to the treatment field for one year following treatment. Please use SPF> 30 to all exposed areas of skin and limit sun exposure. ??? Avoid tight fitting clothes. We would prefer that you wear a cotton t-shirt instead of a bra. If you are unable to go without a bra please wear a soft cotton bra without underwire. ??? Examine your skin in the treatment area daily and watch for changes. If you cannot reach the whole treatment field ask a family member to look at it and apply cream as needed. Be careful to keep the area under your breast clean and dry as this area can get irritated first. ??? You will meet with your nurse and doctor weekly. They will check your skin and help you with any side effects you are having. Please ask to see the nurse if you have concerns in between these days. ??? During the last weeks of treatment you may notice some peeling of skin and/or a moist reaction.Be sure to let us know if this happens so we can provide you with further skin care instructions.. ??? Continue to stay active, walk daily, eat healthy foods and drink several glasses of water each day. Fatigue You may notice that you feel unusually tired towards the end of treatment. This is not unusual. We recommend that you pace your activities and plan for rest periods to avoid becoming over-tired. Feel free to direct any questions or concerns you may have related to your treatment to your nurse or doctor. [facility] Radiation Oncology Our normal business hours are: Thursday - Thursday 8 AM to 5 PM [place], [place], [place] For emergent situations after hours please call for either location and ask for the Radiation Oncologist direct support professional home health. documented in this encounter Progress Notes * Gretta Burk RN - 03/19/2021 11:30 AM EST Radiation Oncology Simulation Note Alis Montero is here for radiation planning , undergoing a simulation to the right chest wall andsupraclavicular fossa, right axilla for breast cancer treatment . Usual radiation oncology routines and purpose of on treatment visits were explained. Remedy Phytoplex Moisturizer cream provided and instructions for use reviewed Anticipatory Guidance: Please see AVS which was reviewed with patient. Barriers to Treatment/ Compliance issues identified: None identified Patient confirms they can have no difficulties lying flat. pre- medication plan made: none needed Referrals: * Eleonora Mensah MD - 03/19/2021 11:30 AM EST Here for sim. HX: 30 y/o f w/central breast ca, R, invasive ca w/ductal & lobular features, gr 2, ER+GA+, Her2+, cT3 cN1, s/p neoadjuvant TCHP, followed by R mastectomy w/NLOC excision clipped R axillary lymphnode, unsuccessful SNB, ypT1b(m) ypN1mi, +LVI. Randomized on [id number] to ax dissxn, which was done 01/28/21. Path: 13 lymph nodes, all neg. 02/26/21 Dr. Hunt, 14 x 6 cm mild erythema under lateral mastectomy scar, rx for bactrim for 10 days, rtc June w/mmg. 02/26/21 Dr. Cornejo, TDM-1 x 14, adjuvant; rhodes after xrt. S: Healing well from axillary dissxn. Completed bactrim. Redness resolved. No pain. O: R mastectomy scar well healed. Drain site scar R ant ax line, 4 cm inf to mastectomy scar. No erythema. No evidence of swelling/ca. Sim: Custom vac bag w/breast bd immobilization; flat bbs on R mastectomy scar, drain site scar & around breast perimeter from 2-10:00; CT through neck & chest; 3D xrt planned. She tolerated sim well, w/o problem. Tx Plan: 3D xrt. Start xrt 1-2 wks. documented in this encounter Plan of Treatment Upcoming Encounters Date Type Department Care Team (Late st Contact Info) Description 02/13/2025 1:00 PM EDT Office Visit Radiation Oncology at [address] [phone] Eleonora Mensah MD [facility] [place] [address] documented as of this encounter Visit Diagnoses Diagnosis Malignant neoplasm of central portion of right female breast, unspecified estrogen receptor status documented in this encounter Care Teams Bilingual School Psychologist Relationship Specialty Start Date End Date Charleen Williamson APRN [address] [place] [address] PCP - General Family Medicine 06/29/20 documented as of this encounter
--- OUTSIDE RECORDS SUMMARY | 2024-05-09 14:03 | XMS_ITS | Encounter Summary ---
Author Organization [facility] [place] [address] Care Team Providers Care Tenter Frame Back Tender Name Role Phone Charleen Williamson APRN Primary Care Provider [phone] [phone] Encounter Details Date Type Department Care Team (Late st Contact Info) Description 01/21/2021 Orders Only Radiation Oncology at [address] [phone] Lyla Mccollum RN Malignant neoplasm of central portion of right [...] as of this encounter Miscellaneous Notes * Addendum Note - Lyla Mccollum RN - 01/21/2021 9:10 AM EDTAddended by: LYLA MCCOLLUM on: 01/21/2021 11:12 AM Modules accepted: Orders documented in this encounter Plan of Treatment Upcoming Encounters Date Type Department Care Team (Late st Contact Info) Description 02/13/2025 1:00 PM EDT Office Visit Radiation Oncology at [address] [phone] Eleonora Mensah MD [facility] [place] [address] Scheduled Orders Name Type Priority Associated Diagnoses Orde r Schedule urine, qualitative ([place]) Lab Routine Malignant 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, estrogen receptor positive Expected: 01/21/2021 (Approximate), Expires: 07/23/2021 documented as of this encounter Visit Diagnoses Diagnosis Malignant 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, estrogen receptor positive documented in this encounter Care Teams Tenter Frame Back Tender Relationship Specialty Start Date End Date Charleen Williamson APRN [address] [place] [address] PCP - General Family Medicine 06/29/20 documented as of this encounter
--- OUTSIDE RECORDS SUMMARY | 2024-05-09 14:03 | XMS_ITS | Encounter Summary ---
Author Organization [facility] Address [facility] [address] [facility] [place] [address] Care Team Providers Care Fry Cook Name Role Phone Charleen Williamson APRN Primary Care Provider [phone] [phone] Reason for Visit * Reason Comments Follow-up Encounter Details Date Type Department Care Team (Late st Contact Info) Description 02/13/2021 8:30 AM EDT Office Visit Hematology [place] [address] Eulalio Hunt MD [facility] [place] [address] Malignant neoplasm of central portion of right [...] Sign Reading Time Taken Comments Blood Pressure 123/79 02/13/2021 8:34 AM EDT Pulse 80 02/13/2021 8:34 AM EDT Temperature 36.6 ??C (97.9 ??F) 02/13/2021 8 :34 AM EDT Respiratory Rate 22 02/13/2021 8:34 AM EDT Oxygen Saturation 97% 02/13/2021 8:3 4 AM EDT Inhaled Oxygen Concentration - - Weight 85.4 kg (188 lb 3.2 oz) 02/14/20 8:34 AM EDT with shoes Height 175.3 cm (5' 9) 02/13/2021 8:34 AM EDT with shoes Body Mass Index 27.79 02/13/2021 8:34 AM EDT documented in this encounter Progress Notes * Eulalio Hunt MD - 02/13/2021 8:30 AM EDT Alis Silva is a 30-year-old [...] breast mass showed invasive carcinoma, ER positive, RI positive and HER-2 positive. MRI showed a [...] seen. She randomized on the alliance trial [id number] to the axillary dissection arm. Therefore on 01/28/2021I did a right axillary dissection. 0 of 13 nodes were positive. She now returns for a check. Her AMRSHA drain has been putting out about 60 mL a day despite keeping her arm in a sling. On physical exam her incision is very nicely healed. There is no sign of infection, hematoma or seroma. I removed her drain. Impression: Alis is recovering well after right axillary dissection and after right mastectomy. I gave her a copy of her pathology report and we reviewed it. She understands that chest wall radiation therapy is planned. Since she has to move her arm above her head for the treatment planning films we are going to delay her treatment planning CT scan for about 3 weeks from now so that she can accomplish that to get her treatment planning CT. I asked my secretary office clerk to set her up with a physical therapist in [facility]. I demonstrated rangeof motion exercises for her which I asked her to start 5 days from now to give it a little more time to seal down and heal up given the given that she was draining 60 mL/day from her drain. I also asked for her to set her up to see Brianna Collier to discuss right breast prosthesis. I will plan to see her back in June with a left mammogram. She will be due for a screening mammogram at that time. Copy to Eleonora Bazan and Tyra Cornejo. documented in this encounter Plan of Treatment Upcoming Encounters Date Type Department Care Team (Late st Contact Info) Description 02/13/2025 1:00 PM EDT Office Visit Radiation Oncology at [address] [phone] Eleonora Mensah MD [facility] [place] [address] documented as of this encounter Results * [...] questions please contact the health career development coordinator that requested your imaging first. ? Narrative 08/15/2021 11:42 AM EDT EXAMINATION: MAMMO [...] positive documented in this encounter Care Teams Fry Cook Relationship Specialty Start Date End Date Charleen Williamson APRN [address] [place] [address] PCP - General Family Medicine 06/29/20 documented as of this encounter
--- OUTSIDE RECORDS SUMMARY | 2024-05-09 14:03 | XMS_ITS | Encounter Summary ---
Author Organization [facility] [place] [address] Care Team Providers Care Seamer Elastic Band Name Role Phone Clay Charleen White APRN Primary Care Provider [phone] [phone] Encounter Details Date Type Department Care Team (Late st Contact Info) Description 02/26/2021 Notes [place] [phone] Kenyetta Kohler, PSYCHIATRIC ASSISTANT Social History Tobacco Use Types Packs/Day Years [...] this encounter Progress Notes * Kenyetta Kohler PSYCHIATRIC ASSISTANT - 02/26/2021 4:45 PM EDT I'm able to meet with pt, Alis, while she is here today for f/u with Dr. Cornejo. She presentswith some blunted mood and congruent affect, and is accompanied by Elmer in the exam room. Note: Pt physical address in [place], [place]; mailing address in [place]. Alis requests resources/referrals for individual therapy to address ongoing stress, depression, and anxiety related to adjustment to illness. She also requests link to [facility] support group, and would like to speak with a oracle programmer. Alis and Elmer continue to report some financial strain with fixed income, including increased cost of gas and monthly bills for reproductive clinic per egg retrieval and embryo banking, as well as auto insurance. Per their report they are provided with $100 V[employer] gift card and $20 [employer] gas card. Per plan with Alis I f/u with resources to her [facility] account. Completed today: Brief assessment Care Coordination Financial resources Transportation resources documented in this encounter Plan of Treatment Upcoming Encounters Date Type Department Care Team (Late st Contact Info) Description 02/13/2025 1:00 PM EDT Office Visit Radiation Oncology at [address] [phone] Eleonora Mensah MD [facility] [place] [address] documented as of this encounter Visit Diagnoses Not on filedocumented in this encounter Care Teams Seamer Elastic Band Relationship Specialty Start Date End Date Charleen Williamson APRN [address] [place] [address] PCP - General Family Medicine 06/29/20 documented as of this encounter
--- OUTSIDE RECORDS SUMMARY | 2024-05-09 14:03 | XMS_ITS | Encounter Summary ---
Author Organization [facility] [place] [address] Care Team Providers Care Teradata Architect Name Role Phone Charleen Williamson APRN Primary Care Provider +1 [phone] Encounter Details Date Type Department Care Team (Late st Contact Info) Description 03/06/2021 10:00 AM EST Telephone [place]ematology [place] [phone] [facility] [place] [address] Social History Tobacco Use Types Packs/Day Years [...] encounter Miscellaneous Notes * Telephone Encounter - Minal Hart RD - 03/06/2021 9:20 AM EST [facility] Initial Assessment Patient Name: Alis Silva Diagnosis:ER/ND+, HER-2 + breast cancer Assessment: HPI Pt is 30 yo female s/p right mastectomy and right axillary targeted node excision after neoadjuvantchemotherapy. She is planned for adjuvant radiation. Patient Active Problem List Diagnosis Code ??? Malignant neoplasm of right breast in female, estrogen receptor positive C50.911, Z17.0 Estimated body mass index is 27.4 kg/m?? as calculated from the following: Height as of 02/26/21: 175.3 cm (5' 9.02). Weight as of 02/26/21: 84.2 kg (185 lb 9.6 oz). Wt Readings from Last 3 Encounters: 02/26/21 84.2 kg (185 lb 9.6 oz) 02/13/21 85.4 kg (188 lb 3.2 oz) 01/28/21 84.8 kg (187 lb) Lost 5# after chemo ended Medications: bactrim Labs: Lab Results Component Value Date NA 138 02/26/2021 K 4.1 02/26/2021 CL 103 02/26/2021 CO2 24 02/26/2021 BUN 11 02/26/2021 CREATININE 0.72 02/26/2021 GLUCOSE 140 02/26/2021 CALCIUM 9.9 02/26/2021 ESTGFR 114 02/26/2021 PO intake: not eating as much as during chemo. Steroids made her really hungry during treatment Pt has a list of questions prepared. She is asking about f/v intake and specific f/u, protein sources, ideas for lunch, and snack ideas. She is currently eating 3 meals per day and not snacking. She has lost 5# since chemo ended, but had gained wt during treatment. No vitamins or supplements except probiotics Nutrition Intervention: ? Discussed snack/lunch ideas ? Discussed fruit/veggie intake, options ? Discussed exercise recommendations ? Send handouts via [facility]: [employer] Snack ideas, 100 kcal additions Monitoring and Evaluation: Will follow up with pt as needed. I have provided her with my card and contact information should she have any questions in the meantime. Thank you for this consult. Minal Hart RD documented in this encounter Plan of Treatment Upcoming Encounters Date Type Department Care Team (Late st Contact Info) Description 02/13/2025 1:00 PM EDT Office Visit Radiation Oncology at [address] [phone] Eleonora Mensah MD [facility] [place] [address] documented as of this encounter Visit Diagnoses Not on filedocumented in this encounter Care Teams Teradata Architect Relationship Specialty Start Date End Date Charleen Williamson APRN [address] [place] [address] PCP - General Family Medicine 06/29/20 documented as of this encounter
--- OUTSIDE RECORDS SUMMARY | 2024-05-09 14:03 | XMS_ITS | Encounter Summary ---
[place] [address] Care Team Providers Care Aerial Gunner Superintendent Name Role Phone Clay Charleen White APRN Primary Care Provider [phone] Reason for Visit * Auth/Cert Specialty Diagnoses / Procedures Referred By Fawn t Referred To Contact Diagnoses Breast cancer breast cancer Procedures PRO REMOVE ARMPITS LYMPH NODES COMPLT LYMPHADENECTOMY, AXILLARY, COMPLETE (WRVU 13.87) Referral ID Status Reason Start Date Expiration Date Visits Re quested Visits Authorized [id number] 1 1 Encounter Details Date Type Department Care Team (Latest Contact Info) Description 01/28/2021 6:22 AM EDT - 01/28/2021 11:27 AM EDT Hospital Encounter [place] [address] Eulalio Eng MD [facility] [place] [address] Discharge Disposition: Home Social History Tobacco Use [...] Reading Time Taken Comments Blood Pressure 114/69 01/28/2021 10:45 AM EDT Pulse 80 01/28/2021 10:45 AM EDT Temperature 36.1 ??C (97 ??F) 01/28/2021 10:03 AM EDT Respiratory Rate 16 01/28/2021 10:45 AM EDT Oxygen Saturation 99% 01/28/2021 10:45 AM EDT Inhaled Oxygen Concentration - - Weight 84.8 kg (187 lb) 01/28/2021 6:36 AM EDT Height 172.7 cm (5' 8) 01/28/2021 6:36 AM EDT Body Mass Index 28.43 01/28/2021 6:36 AM EDT documented in this encounter Discharge Instructions * Discharge Instructions* Maida Mcpherson RN - 01/28/2021 7:30 AM EDT SCOPOLAMINE PATCH DISCHARGE INSTRUCTIONS You are wearing a scopolamine patch.This is a medication patch used to prevent and treat nausea andvomiting after surgery. The patch is located behind your left ear. Please follow these instructions while you are wearing the patch. Try not to touch the patch. ??? If you do touch the patch, wash your hands right away. Make sure to remove all traces of medication from your hands. ??? If the medication gets on your hands and then you touch your eyes, your vision may become blurry or your pupils may widen. These are both normal and temporary reactions; they will go away shortly. You may remove the patch as early as: tonight BUT must remove it no later than 0715 am on There will still be some active ingredients on the patch, so fold it in half (with the sticky sidestogether) and throw it in the trash. This will help prevent others from coming into contact with it. After removing the patch, carefully wash your hands and behind your ear (or wherever the patch was placed) with soap and water. ?? If you have not urinated in 6-8 hours after your surgery, remove the patch and call your surgeon. General Anesthesia Discharge Instructions Go home and [...] closest emergency room or call the hospital heavy equipment operator at [phone] and ask for physician internal communications intern covering for your physician. Questions or problems after 5pm or on a weekend: Call the [facility] heavy equipment operator at and ask for the physician internal communications intern covering for your doctor. * Patient Instructions* Monica Montoya MD - 01/28/2021 9:57 AM EDT Images from the original note were not included. Instructions following Breast Surgery Wound Care: Keep dressing on incision for the next 5 days, then you may remove and leave open to air. You may shower tomorrow morning with the tape covering the site. Do not scrub area vigorously for the next 1 week. Do not soak incision(s) under water for the next 2 weeks (i.e. soaking in bath or swimming) as this may promote a wound infection. You may remove dressing if it becomes saturated/wet and replace with dry gauze as needed for seepage/comfort. If there are pieces of tape directly on the incision (steri-strips), please leave them onuntil they fall off on their own. You may trim them back as they begin to peel up. ICE: You may apply ice to incision during the first 48 hours following surgery to help limit swelling, bruising, and discomfort. You may also find wearing a bra for the first two days following surgery will help with discomfort, although this is not absolutely necessary. Your stitches will dissolve and do not need to be removed. Activity: As tolerated by your comfort level. Call Doctor for: Please call if you notice worsening redness or drainage from incision(s) lasting longer than 5 days after your surgery, any foul-smelling drainage from the incision, pain not controlled by pain medications, persistent nausea and vomiting, or for any fevers greater than 101.3 F. The number for questions is [phone] before 5 PM week. Pain Medication: Please use ibuprofen (motrin, advil) 600 mg four times per day with food and tylenol 1000 mg. If you still have significant pain after taking ibuprofen and tylenol, then use the opioid that was prescribed for you from your previous surgery. No driving for 8 hours after any dose of opioid pain medication if one was prescribed for you. Follow-up: Follow-up appointment will be scheduled with in 1-2 weeks. However please call our clinic sooner if your drain is putting out 30cc or less in a 24 hour period Scheduled Appointments: The following appointment with Dr. Eng has been scheduled on your behalf: Future Appointments Date Time Provider Department Center 02/05/2021 11:00 AM [facility] 02/05/2021 11:30 AM Eleonora Mensah MD [facility] 02/05/2021 11:30 AM TYSON BELTRAN/ONC, TREATMENT [facility] Beltran [facility] 02/13/2021 8:30 AM Eulalio Eng MD [facility] HEM ONC [facility] Please call [phone] (clinic number) if any changes need to be made to your appointment time. Cedric Mitchell Drain Nursing Discharge Instructions: Inspect the skin around the insertion site daily for signs of infection such as: ??? Redness or swelling ??? Pus or drainage ??? Fever over 100 F (38 C) or chills ??? Increased pain or discomfort at the insertion site Washing instructions: ??? Gently wash the skin with tap water and pat dry ??? Rinse and air dry the skin before wearing clothes Tube Maintenance: ??? Make sure the tube is properly secured to prevent accidental removal. ??? Strip tubing and empty your drain in the morning and evening ??? Record the drainage amount in the chart provided by your nurse. Contact your physician if: ??? There is a significant change in drainage amount or color. ??? If the tube becomes dislodged. ??? If you notice signs of infection (see above). DRAIN CARE INSTRUCTIONS Drains help to keep fluid from collecting by removing the extra blood and fluid from under the skinor from an abscess within the body. A drain is temporary. It stays in place until the drainage has slowed down or stopped. Your Provider will decide when each drain should be removed. This is usuallyafter each drain has 30cc or less in 24 hours for 2-3 days in a row. You may then be scheduled for w hat is called a Sinogram to check and see if the fluid collection has gotten smaller but this varies. How do I care for the drains at home? Pin your drain/s to your clothing by using a safety pin through the plastic loop on the top of the bulb. If the drain is not attached to your clothing, it may pull out from under your skin. Also, a drain usually feels more comfortable when it???s attached. To care for the drain at home, you will have to empty the drain, ???strip?? the drain tubing, and change the dressing if applicable. * See the following pages for instructions on how to do this. What problems may I have with my drain? The bulb is not compressed- The bulb may not be squeezed tightly enough, the plug may not be closed securely, or the tube has slipped out a bit and is leaking. Follow the instructions on how to empty the drain. If the bulb remains expanded, then notify your doctor or nurse during business hours. ??? No drainage or sudden decrease in amount of drainage- This may be due to a plug in the drain. Please notify your doctor or nurse during business hours. ??? The tube accidentally falls out- If this happens, place a dry gauze dressing over the drain site and notify your doctor or nurse during business hours. ??? Increased redness, swelling, or heat around the tube insertion site- This may be a sign of infection. Take your temperature: if it is higher than 101F or 38.8C, call your doctor or nurse immediately. Otherwise, notify your doctor or nurse during business hours and keep the dressing clean and dry. How to Empty Your Drain Note: Wash your hands thoroughly before emptying your drain(s). Unpin the drain from your clothing. 1. Turn the white stopcock so it is not parallel (in line) with the tubing. 2. Unscrew the tubing with the bulb attached from stopcock. Make sure you keep everything clean. 3. Attach the syringe with sterile saline to the stopcock. 4. Re-attach the tubing with the bulb to the stopcock. 5. Invert the bulb and pull open the plug. 6. Have the plastic measuring cup from the hospital ready to collect and measure the drainage. Please measure the output at the same time every 24 hours and record the amount. 1. 7. Turn the drain upside down and squeeze the contents of the bulb into the measuring cup. Be sure to empty the bulb as completely as possible. Flush the contents in the toilet. 8. Use the drain output log chart to record the amount of drainage twice a day or any time the bulbis full. Record the total for 24 hours for each drain you have. 9. If you have more than one drain, remember to record the drainage from each drain separately. 10. To prevent infection, do not let the stopper or top of the bottle touch the measuring cup or any other surface. 2. Use one hand to squeeze all of the air from the drain. With the drain still squeezed, use your other hand to replace the top. This creates the suction necessary to remove the fluids from your body. 3. Pin the drain back on your clothing to avoid pulling it out accidently. 4. Wash your hands again. Remember to wash your hands before and after the procedure to reduce the risk of infection. Flushing the Drain: Do Not flush the drain. Cedric-Mitchell Drainage Record NAME: Date of Surgery: Date: Time: If more than one drain, which one: Drainage Amount (per drain) Total Amount (per drain; in 24 hours) documented in this encounter Medications at Time [...] as of this encounter Progress Notes * Tyra Washington RN - 01/28/2021 11:28 AM EDT Discharge instructions and medications reviewed with patient and escort. All questions answered andwritten copy sent home with patient. Patient ambulated to car for discharge accompanied by [facility] staff member. knows to pick pulling machine operator meds and where. * Joy Cid RN - 01/24/2021 10:50 AM EDT Patient states that they and there , Elmer (escort for the day of surgery) have had the Covid vaccine. They also deny any fever, cough, SOB or any other illness in the last 14 days. Patient informed of procedure to be followed upon arrival to the [facility]. That being, COVID questions will be asked again, temperature will be taken, patient and caregiver/power truck driver will be given a mask to wear the entire time they are in the [facility] building. Patient also stated when I asked about menstruating that she is not getting her period currently because she is getting Zolidex injections to protect her ovaries. Patient states she just took at test at [facility] and had to have a negative test to be part of this study. documented in this encounter H&P Notes * Eulalio Eng MD - 01/28/2021 7:19 AM EDT I examined and marked this patient today and she is ready for surgery. Right axillary dissection for breast cancer documented in this encounter Miscellaneous Notes * Op Note - Eulalio Eng MD - 01/28/2021 8:05 AM EDT [facility] Operative Note Patient Name: Alis Silva : [id number] MR#: [id number] Case Date: 01/28/2021 Surgeon: Surgeon(s) and Role: * Eulalio Eng MD - Primary * Monica Montoya MD - Resident Preoperative diagnosis: breast cancer Postoperative diagnosis: breast cancer Procedure(s) (LRB): LYMPHADENECTOMY, AXILLARY, COMPLETE (WRVU 13.87) (Right) Anesthesia: General Estimated Blood Loss: 20 ml Specimens removed during surgery: right axillary contents Drains: Drain/Device Site 01/03/21 1444 Right lower breast collapsible closed device (Active) Drain/Device Site 01/28/21 0926 Right axilla collapsible closed device (Active) Dressing dressing applied 01/28/21926 Surgical Closure: Primary Closure - skin incision is completely closed without any wires, lilly, drains or other devices Indications for surgery: Alis Silva is a 30-year-old woman who had a positive targeted lymph node removed from her right axilla after neoadjuvant chemotherapy. She was entered on Mcfarlan trial [id number] which randomized her to receive an axillary dissection. Details of the operation: She was prepped with ChloraPrep and was draped. She was given preoperative antibiotics. I anesthetized the skin and then opened her old mastectomy incision from the lateral border of her pectoralis major to the lateral edge of the incision. We then created a skin flap between the axillary contents and the skin going up to the level of the axillary vein. We dissected along the lateral border of the pectoralis minor until we identified the axillary vein. We then dissected along axillary vein and saw the thoracodorsal vein and the thoracodorsal nerve. We then clamped divided and tied the tissue medial to the thoracodorsal nerve and the chest wall. After clearing some of this tissue we then carefully dissected and identified the long thoracic nerve. We dissected thatnerve out. We then removed all the mary tissue that was between the long thoracic and the thoracodorsal nerves. We removed all the nodes from level 2 of the axilla. We then continued to dissect downalong the thoracodorsal nerve and the thoracodorsal vein and artery and cleared the nerves in the central and lateral part cleared the nodes in the central and lateral portions of the axilla. The specimen was then sent to pathology labeled right axillary contents. We achieved meticulous hemostasis. The thoracodorsal and long thoracic nerves were both functional at the end of the case. We made sure we had perfect hemostasis. We then left a 10 Turkmen Cedric-Mitchell drain and sutured that in place. The suction held nicely after closing the deep dermis with interrupted 3- 0 Vicryl and the skin with 4-0 Monocryl. Infection Bundle used? N/A Attestation: Case Date: 01/28/2021 I was present and I participated during the entire procedure (does not need to include opening and closing). EULALIO ENG MD 01/28/2021 documented in this encounter Plan of Treatment Upcoming Encounters Date Type Department Care Team (Late st Contact Info) Description 02/13/2025 1:00 PM EDT Office Visit Radiation Oncology at [address] [address] Eleonora Mensah MD [facility] [place] [address] documented as of this encounter Procedures Procedure Name Priority Date/Time Associated Diagnosis Comments SURGICAL PATHOLOGY REPORT Routine 01/28/2021 9:20 AM EDT SPECIMEN TO PATHOLOGY Routine 01/28/2021 9:20 AM EDT Remove Armpits Lymph Nodes Complt (12593) Yes 01/28/2021 7:31 AM EDT breast cancer documented in this encounter Results * Surgical Pathology Report (01/28/2021 9:20 AM EDT) Final Diagnosis [id number] ? Location: [facility] The signing pathologist has (i) examined the relevant preparation(s) for the specimen(s) and (ii) rendered or confirmed the diagnosis(es). . ?Surgical Pathology DIAGNOSIS Right axillary dissection: Thirteen lymph nodes, negative for malignancy (0/13). Electronically signed by: ?Annel Michaels DO Verified: ??01/31/2021 14:25 ??Pathologist Performed at: ??-[facility] Dept. of Pathology, [place], [place] SPECIMEN(S) SUBMITTED A - Right axillary ??dissection , excision (1) CLINICAL INFORMATION Breast cancer SPECIMEN PROCESSING A - Labeled/Fixativ e: Right axillary dissection, fresh. Quantity/Size: Multiple, 15 x 7 x 3 cm. Tissue Description: Adipose tissue with focal fibrosis and embedded suture material. Multiple lymph nodes are identified, up to 3.5 cm in greatest dimension. Sections/Proces sing: The lymph nodes are entirely submitted. Public Bath Attendant sections in 18 cassettes as follows: ?A1: ??Four nodes ?A2: ??Three nodes ?A3: ??Two nodes ?A4: ??One node bisected ?A5: ??One node bisected ?A6: ??One node bisected ?A7-A9: ??? One lymph node, serially sectioned ?A10-A15: ??One node serially sectioned ?A16-A18: ??One node serially sectioned ??sns 01/31/2021 2:25 PM EDT [facility] Axillary Contents 01/28/2021 9:20 AM EDT 01/28/2021 9:20 AM EDT Eulalio Eng MD PATHOLOGY/CYTOLOGY O ROGELIO Performing Organization Address City/[facility]/ZIP Co de Phone Number [facility] [place] [address] * Specimen to Pathology (01/28/2021 9:20 AM EDT) AP Specimen 01/28/2021 9:20 AM EDT 01/28/2021 9:20 AM EDT Narrative [facility] - 01/28/2021 9:20 AM EDT Specimen requisition ordered. ??Separate Pathology report to follow Eulalio Eng MD PATHOLOGY/CYTOLOGY O ROGELIO Performing Organization Address City/[facility] Co de Phone Number [facility] [place] [address] documented in this encounter Visit Diagnoses Not on filedocumented in this encounter Administered Medications Inactive Administered Medications - up to 3 most recent administrations Medication Order MAR Action Action Date Dose Rate Site heparin (pf) (porcine) (100 units/mL) flush 5 mL syringe 500 Units 500 Units (5 mL), Intravenous, DAILY PRN, 1 dose, Starting on Thu01/28/21 at 1103, Until Thu01/28/21 at 1330, Line Care, Terminal Flush for de-accessing of Implantable Port, Routine scopolamine (TRANSDERM-SCOP) 1 mg patch Patch Removal Transdermal, ONCE, 1 dose, On Thu01/29/21 at 0730, Remove scopolamine 1 mg patch, Recovery (Recovery-Hospital Unit) scopolamine (TRANSDERM-SCOP) 1 mg patch Patch Verification Transdermal, 2 TIMES DAILY, 2 doses, First dose on Thu01/28/21 at 1930, Last dose on Thu01/29/21 at 0900, Verify scopolamine 1 mg patch., Recovery (Recovery-Hospital Unit) documented in this encounter Active and Recently Administered Medications Times are shown in EDT. Scheduled Medication Order 01/26/2021 01/27/2021 01/28/2021 ceFAZolin (Ancef) 2 g in dextrose 5% 100 mL infusion (COMPLETED) 2 g, Intravenous, 30 MIN PRE-OP, 1 dose, On Thu01/28/21 at 0745, Administer over 30 Minutes, Indication for (Active or Suspected): Prophylaxis 0746 (Given - Provid er: Zac Tucker) scopolamine (TRANSDERM-SCOP) 1 mg patch Patch Removal Transdermal, ONCE, 1 dose, On Thu01/29/21 at 0730, Remove scopolamine 1 mg patch, Recovery (Recovery-Hospital Unit) scopolamine (TRANSDERM-SCOP) 1 mg patch Patch Verification Transdermal, 2 TIMES DAILY, 2 doses, First dose on Thu01/28/21 at 1930, Last dose on Thu01/29/21 at 0900, Verify scopolamine 1 mg patch., Recovery (Recovery-Hospital Unit) Continuous Medication Order 01/26/2021 01/27/2021 01/28/2021 lactated ringers infusion (CANCELED) 1,000 mL, at 100 mL/hr, Intravenous, CONTINUOUS, Starting on Thu01/28/21 at 0645, Until Thu01/28/21 at 1129, Day of Surgery (Day of Procedure) 0735 (New Bag - Prov ider: Zac Tucker)0747 (Anesthesia Volume Adjustment - Provider: Zac Tucker)0936 (Anesthesia Volume Adjustment - Provider: Zac Tucker) PRN Medication Order 01/26/2021 01/27/2021 01/28/2021 BUpivacaine (pf) (Marcaine) (5 mg/mL) 0.5% injection (CANCELED) ONCE PRN, Starting on Thu01/28/21 at 0805, Until Thu01/28/21 at 1330, Intra-Operative (Intra-Procedure), Routine 0805 (Given - Provid er: Monica Montoya MD - Comment: mixed 1:1 with 1% lidocaine) heparin (pf) (porcine) (100 units/mL) flush 5 mL syringe 500 Units 500 Units (5 mL), Intravenous, DAILY PRN, 1 dose, Starting on Thu01/28/21 at 1103, Until Thu01/28/21 at 1330, Line Care, Terminal Flush for de-accessing of Implantable Port, Routine lidocaine (pf) (Xylocaine) (10 mg/mL) 1% injection (CANCELED) ONCE PRN, Starting on Thu01/28/21 at 0805, Until Thu01/28/21 at 1330, Intra-Operative (Intra-Procedure), Routine 0805 (Given - Provid er: Monica Montoya MD - Comment: mixed 1:1 with 0.5% marcaine) oxyCODONE (Roxicodone) tablet 5 mg 5 mg, Oral, ONCE PRN, 1 dose, Starting on Thu01/28/21 at 0957, Until Thu01/28/21 at 1330, Pain, May repeat once in 30 minutes if ineffective., Routine documented in this encounter Care Teams Aerial Gunner Superintendent Relationship Specialty Start Date End Date Charleen Williamson APRN [address] [place] [address] PCP - General Family Medicine 06/29/20 documented as of this encounter
--- OUTSIDE RECORDS SUMMARY | 2024-05-09 14:03 | XMS_ITS | Encounter Summary ---
Author Organization [facility] Address [facility] [place] [address] Care Team Providers Care Package Winder Name Role Phone Charleen Williamson APRN Primary Care Provider [phone] [phone] Reason for Visit * Reason Comments On Treatment Visit Encounter Details Date Type Department Care Team (Late st Contact Info) Description 04/30/2021 12:45 PM EST Office Visit Radiation Oncology at [address] [phone] Eleonora Mensah MD [facility] [place] [address] Hormone receptor positive malignant neoplasm of right [...] Progress Notes * Eleonora Mensah MD - 04/30/2021 12:45 PM EST Images from the original note were not included. DIAGNOSIS: 30 y/o premenopausal female w/central breast ca, R, invasive ca w/ductal & lobular features, gr 2, ER+MS+, Her2+, cT3 cN1, s/p neoadjuvant TCHP, followed by R mastectomy w/NLOC excision clipped R axillary lymph node, unsuccessful SNB, ypT1b(m) ypN1mi, +LVI. Randomized on [id number] to ax dissxn, removing 13 lymph nodes, all neg. Xrt off protocol. Adjuvant TDM-1 concomitant w/xrt. Cabrera after xrt completion. ?? CURRENT TREATMENT DOSE: 12 Gy R supraclav, R axilla, R chest wall ANTICIPATED TOTAL DOSE: 50 Gy R supraclav, R axilla, R chest wall; 60 Gy mastectomy scar Current # of xrt received: 6 Anticipated total # of xrt txs: 30 Evaluation of port verification films: Approved. For details, see electronic film record in [facility]. Changes in Medical Condition: Back pain, longstanding, managed w/ibuprofen & chiropracter (lastvisit several wks ago) bothers her when lying on xrt tx table. Forgot to try tylenol prior to xrt for B shoulder pain when on xrt tx table w/arms up. No problem w/irrad'd area. Asks if next zoladex can be sched'd; says due next wk. Pain?: See above. Your Medications Accurate as of April 30, 2021 1:07 PM. If you have any questions, ask [...] Refills: 0 Miscellaneous Medical Supply Misc by Mary Hurley [...] AREA TWICE DAILY Refills: 0 Physical Exam: 186 lbs 97 F 79 18 115/76 SpO2 99% A&Ox3, NAD. Irrad'd area w/minimal erythema. Amb stable. Imagin03/19/21 Dx'ic Rad Interp CTsim: No suspicious lesion. Performance Status: KPS 100% Response to xrt: As expected. Irradiation Related Symptoms: Skin rxn. Treatment for Symptom Control: Phytoplex cream. Pain Management: Advised 2 tylenol (reg/extra strength) half hr prior to xrt; could also take ibuprofen @ same time. Recommendation on Continuing Course of xrt: Continue. Ask Heme-Onc about next zoladex. 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
--- OUTSIDE RECORDS SUMMARY | 2024-05-09 14:03 | XMS_ITS | Encounter Summary ---
Author Organization [facility] Address [facility] [place] [address] Care Team Providers Care [employer] Name Role Phone Charleen Williamson APRN Primary Care Provider [phone] [phone] Encounter Details Date Type Department Care Team (Late st Contact Info) Description 04/30/2021 9:00 AM EST Office Visit Hematology/Oncology at [address] [phone] Janet Wheeler APRN [facility] [place] [address] Malignant neoplasm of overlapping sites of right [...] Sign Reading Time Taken Comments Blood Pressure 115/76 04/30/2021 8:43 AM EST Pulse 79 04/30/2021 8:43 AM EST Temperature 36.1 ??C (97 ??F) 04/30/2021 8:43 AM EST Respiratory Rate 18 04/30/2021 8:43 AM EST Oxygen Saturation 99% 04/30/2021 8:43 AM EST Inhaled Oxygen Concentration - - Weight 84.5 kg (186 lb 3.2 oz) 04/30/2021 8:43 A M EST Height 175.3 cm (5' 9.02) 04/30/2021 8:43 AM ES T Body Mass Index 27.48 04/30/2021 8:43 AM EST documented in this encounter Progress Notes * Janet Wheeler, BIG DATA HADOOP DEVELOPER - 04/30/2021 9:00 AM EST Patient ID: Alis Silva is a 30 y.o. female. ?? Cc: breast cancer ?? 29 yo self-palpated a mass under the right nipple when she noticed it had inverted at the end of May 2020. Dx 06/29/20 [facility] [place], [place] + HER2 + right invasive carcinoma with [...] 1 node with microscopic disease. Consented to [place] trial evaluating axillary dissection vs RT and randomized to dissection: 0/13nodes positive. Not eligible for adjuvant tucatinib trial due to participation in the [place] axillary management trial. TDM-1 q 3 wks x 14 cycles planned as per LUIS trial results showing improved PFS with TDM-1 compared to trastuzumab in those who did not achieve a path CR with NAC. Interval history(04/30/21): Alis is in clinic today for follow-up of breast cancer and to start adjuvant therapy with Kadcyla. She complains of fatigue. Numbness and tingling in her extremities minimal. No fever or chills. No cough. Eating and drinking well. She started radiation therapy. Ms. Silva would like to receive adjuvant treatment here while getting radiation therapy. She'll continue tofollow with Dr. Cornejo after that. Breast incision has healed well. Denies any new lumps or bumps. ?? Fhx: PGM with breast cancer in [...] Negative. Neurological: Negative. Psychiatric/Behavioral: Negative. ? Objective: BP 115/76 (Patient Position: Sitting) Pulse 79 Temp 36.1 ??C (97 ??F) (Temporal) Resp 18 Ht175.3 cm (5' 9.02) Wt 84.5 kg (186 lb 3.2 oz) SpO2 99% BMI 27.48 kg/m?? Vitals and nursing note reviewed. Constitutional: General: [...] normal. ?echo 02/20/21 with stable EF Labs: 04/30/21- WBC-5.35 Hgb/Hct-12.3/36.8 Plt-203 ANC-3.39 Na-141 K+-3.7 BUN/Cr-16/0.8 Glucose-105 Ca-9.2 T. Bili-0.4 AST-18 ALT-26 Alk phos-74 Albumin-3.8 Assessment and Plan: ? #1 Breast cancer--30 yo with ER+ her2 + breast cancer , + clinical response to NAC. Partial path response. [id number] grade 2 er/pr + her2 + stage IIA Here to begin TDM 1. Approval was based on LUIS ([id number]), a randomized, multicenter, open- label trial of 1486 patients with HER2-positive EBC. Breast tumor samples were required to demonstrate HER2 overexpression defined as 3+ IHC or DONALD amplification ratio >= 2.0 determined at a central laboratory using [place]???s PATHWAY anti-HER2-/marcos (4B5) Rabbit Monoclonal Primary Antibody or INFORM HER2 Dual DONALD DNA Probe Cocktail assays. Patients were required to have had neoadjuvant taxane and trastuzumab-based therapy with residual invasive tumor in the breast and/or axillary lymph nodes. Patients received radiotherapy and/or hormonal therapy concurrent with study treatment per local guidelines. Patients were randomized (1:1) to receive ado-trastuzumab emtansine 3.6 mg/kg intravenously or trastuzumab 6 mg/kg intravenously on day 1 of a 21-day cycle for 14 cycles. The trial???s primary endpoint was invasive disease-free survival (IDFS), defined as the time from the date of randomization to first occurrence of ipsilateral invasive breast tumor recurrence, ipsilateral local or regional invasive breast cancer recurrence, distant recurrence, contralateral invasive breast cancer, or from any cause. After a median follow-up of 40 months, the trial demonstrated a statistically significant improvement in IDFS in patients who received ado-trastuzumab emtansine compared with those who received trastuzumab (HR 0.50; 95% CI: 0.39, 0.64; p<0.0001). Overallsurvival data were not mature at the time of the IDFS analysis. The recommended ado-trastuzumab emtansine dose is 3.6 mg/kg given as an intravenous infusion every 3 weeks (21-day cycle) for a total of 14 cycles for patients with EBC, unless there is disease recurrence or unacceptable toxicity. ?? # Fatigue--grade 2. Should start improving, seeking emotional support appropriately. ?? # Menopausal symptoms--stable. ?? # Bone health--chronic LBP, worse with inactivity. Resumed seeing her chiropractor with good effect. ?? # Medication management --no new rx. Tamoxifen after RT. Alis presents today to begin treatment with Kadcyla IV. The following information was reviewed with the patient. Antitumor Therapy Schedule: ADO-Trastuzumab Emtansine-Kadcyla IV 3.6mg/kg over 90 minutes every 3 weeks for 14 cycles. Laboratory Tests: You will need labs done prior to every chemotherapy treatment. Provider Visits: You will see the doctor or TARGETING ACQUISITION OFFICER before each treatment to review your labs and make sure you are doing OK. Possible Side Effects include, but are not limited to: Kadcyla-The most common adverse reactions (>= 25%) with KADCYLA were fatigue, nausea, increased transaminases, musculoskeletal pain, hemorrhage, thrombocytopenia, headache, peripheral neuropathy, and arthralgia. Medications: the following prescriptions should be picked up before starting treatment She has ondansetron tablets at home. Plan: Alis was given written information regarding treatment regimen, side effects and managementstrategies. We reviewed side effects of medications, symptom management, how and when to call the clinic, home safety and emergency procedures. She was given an opportunity to ask questions and verbalized understanding of the information and treatment plan. No barriers to learning were identified. Alis was counseled on how to call for any further questions or concerns. ??? Treatment is scheduled to begin today. 04/30/21. ??? Testing/Diagnostics o Baseline blood work was reviewed and is adequate for treatment ??? Fertility: She has preserved her eggs and gone through ovarian suppression. ??? Smoking cessation: N/A ??? Offered services of social work and flight instructor if needed. . Plan: ??1. Proceed with Kadcyla today as scheduled. 2. Continue radiation therapy as scheduled. 3. Follow up in 3 weeks with CBC,CMP and 2nd cycle of Kadcyla on May 21. Alis voiced understanding of the plan and was given an opportunity to ask questions which I answered to the best of my ability.Alis understands she can call the clinic between visits with any questions/concerns or new symptoms. Janet Wheeler MSN, BIG DATA HADOOP DEVELOPER, AOCNP Medical Oncology I spent 30 minutes, [...] EDT Office Visit Radiation Oncology at [address] [phone] Eleonora Mensah MD [facility] [place] [address] documented as of this encounter Visit Diagnoses Diagnosis 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, estrogen receptor positive HER2-positive carcinoma of right breast documented in this encounter Care Teams [employer] Relationship Specialty Start Date End Date Charleen Williamson APRN [address] [place] [address] PCP - General Family Medicine 06/29/20 documented as of this encounter
--- OUTSIDE RECORDS SUMMARY | 2024-05-09 14:03 | XMS_ITS | Encounter Summary ---
[place] [address] Care Team Providers Care Assistant Branch Operations Manager Name Role Phone Charleen Williamson APRN Primary Care Provider [phone] [phone] Reason for Visit * Reason Onset Date Comments Medication Refill 04/18/2021 Encounter Details Date Type Department Care Team (Late st Contact Info) Description 04/18/2021 Refill Hematology [place] [address] Marisela Gonzalez, CHAIRMAN & CHIEF EXECUTIVE OFFICER ROOM Social History Tobacco Use Types Packs/Day [...] Telephone Encounter - Marisela Gonzalez RN - 04/18/2021 9:11 AM EST Message received from membership secretary: Alis called and requests a refill of her Trazadone be sent to the [facility] in [place], [place]. She has 3 days left. Last prescribed 12/20/20 Taking for sleep per review of medical record. Script pended to provider for review, signature and escribe. documented in this encounter Plan of Treatment Upcoming Encounters Date Type Department Care Team (Late st Contact Info) Description 02/13/2025 1:00 PM EDT Office Visit Radiation Oncology at [address] [phone] Eleonora Mensah MD [facility] DR [place] [address] documented as of this encounter Visit Diagnoses Not on filedocumented in this encounter Care Teams Assistant Branch Operations Manager Relationship Specialty Start Date End Date Charleen Williamson APRN [address] [place] [address] PCP - General Family Medicine 06/29/20 documented as of this encounter
--- OUTSIDE RECORDS SUMMARY | 2024-05-09 14:03 | XMS_ITS | Encounter Summary ---
Author Organization [facility] Address [facility] [place] [address] Care Team Providers Care Sales Associate Fishing Name Role Phone Charleen Williamson APRN Primary Care Provider [phone] [phone] Reason for Visit * Consultation (Routine) - Closed Specialty Diagnoses / Procedures Referred By Contac t Referred To Contact Hematology and Oncology Diagnoses Malignant 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, estrogen receptor positive Tyra Cornejo MD [facility] DR HEMAT[place] [address] Stj Hem Onc Office [address] [place] [phone] Referral ID Status Reason Start Date Expiration Date V isits Requested Visits Authorized [id number] Closed Consult, Test & Treat 03/15/2021 03/15/2022 1 1 Encounter Details Date Type Department Care Team (Late st Contact Info) Description 04/23/2021 3:00 PM EST Office Visit Hematology/Oncology at [address] [phone] [facility] [address] HEMATOLOGY [place] [address] [facility] [place] [address] HER2-positive carcinoma of right breast (Primary Dx); Encounter for chemotherapy management Social History Tobacco [...] Taken Comments Blood Pressure - - Pulse 87 04/23/2021 2:57 PM EST Temperature 37.3 ??C (99.1 ??F) 04/23/2021 2:57 PM ES T Respiratory Rate 16 04/23/2021 2:57 PM EST Oxygen Saturation 98% 04/23/2021 2:57 PM EST Inhaled Oxygen Concentration - - Weight 84.8 kg (187 lb) 04/23/2021 2:57 PM EST Height 175.3 cm (5' 9.02) 04/23/2021 2:57 PM ES T Body Mass Index 27.6 04/23/2021 2:57 PM EST documented in this encounter Progress Notes * Kristin Pat, RN - 04/23/2021 3:00 PM EST MEDICAL ONCOLOGY INITIAL NURSING ASSESSMENT ADVANCE DIRECTIVES: In EDH [ ] Has documents [ ] Will bring in [ ] none at this time IF NO: Advance Directive pamphlet provided : Referral to Care Management : PRESENTING SYSTEMS and PATHOLOGY: found lump in right breast REVIEW OF SYSTEMS:see Nigel's note Prior Radiotherapy: no[ x ] Yes[ ]Site Date Facility Prior Chemotherapy: no[ ] Yes[ x ] with Dr. Cramer LastTreatment: Balance difficulty: [ x ]no [ ]yes At risk for fall: [x ] no [ ] yes If yes, actions implemented to prevent fall. Patient/family instructed to avoid independent ambulation. Use wheelchair and ask for assistance of staff while in the clinic. ADL [ x ] no limits [ ] needs dressing assistance [ ] needs meal assistance Assistive device:[ x]none [ ]cane [ ]walker [ ]wheelchair [ ]other: explain PAIN ASSESSMENT: [ 0 ] out of 10 Location: Description: [ ] Dull [ ] Sharp [ ] Burning [ ] Throbbing [ ] Radiating [ ] Continuous [ ]Intermittent Aggravating Factors: [ ] Movement [ ] Position [ ]Immobility [ ]Other Alleviating Factors: [ ]Medication [ ] Positioning [ ] Other Current Pain Management Plan: [ ]Satisfied [ ] Not satisfied SOCIAL ASSESSMENT: See EDH social assessment information entered. Support Systems: lives with , parents live local transportation plan: [x ]private vehicle [ ] RCT needs Social Work referral [ ] Unknown at this time needs Social Work referral Barriers to treatment: none at this time Referrals/Interventions: LEARNING STYLE: Visual and verbal, wants written material and verbal discussion. TEACHING: __ NCI ???Chemotherapy and You?? and folder given __ Specific chemotherapy literature provided and reviewed with patient * Omid Manning MD - 04/23/2021 3:00 PM EST Patient ID: Alis Silva is a 30 y.o. female. ?? Cc: breast cancer ?? 29 yo self-palpated a mass under the right nipple when she noticed it had inverted at the end of May 2020. Dx 06/29/20 [facility] [place], [place] + HER2 + right invasive carcinoma with [...] 1 node with microscopic disease. Consented to [place] trial evaluating axillary dissection vs RT and randomized to dissection: 0/13nodes positive. Not eligible for adjuvant tucatinib trial due to participation in the [place] axillary management trial. TDM-1 q 3 wks x 14 cycles planned as per LUIS trial results showing improved PFS with TDM-1 compared to trastuzumab in those who did not achieve a path CR with NAC. Interval history: Alis is in clinic for follow-up appointment on breast cancer and to start adjuvant therapy with Kadcyla. She still feels tired. Numbness and tingling in her extremities minimal. No fever or chills. Eating and drinking well. She started radiation therapy yesterday. Ms. Silva would like to receive adjuvant treatment here while getting radiation therapy. She'll continue to follow with Dr. Cornejo after that. ?? Fhx: PGM with breast cancer in [...] Negative. Neurological: Negative. Psychiatric/Behavioral: Negative. ? Objective: Pulse 87 Temp 37.3 ??C (99.1 ??F) (Temporal) Resp 16 Ht 175.3 cm (5' 9.02) Wt 84.8 kg (187lb) SpO2 98% BMI 27.60 kg/m?? Vitals and nursing note reviewed. Constitutional: [...] 02/20/21 with stable EF Assessment and Plan: ? #1 Breast cancer--30 yo with ER+ her2 + breast cancer , + clinical response to NAC. Partial path response. [id number] grade 2 er/pr + her2 + stage IIA We discussed risk and benefits of TDM 1. pproval was based on LUIS ([id number]), a randomized, multicenter, open- label trial of 1486 patients with HER2-positive EBC. Breast tumor samples were required to demonstrate HER2 overexpression defined as 3+ IHC or DONALD amplification ratio >= 2.0 determined at a central laboratory using [place]???s PATHWAY anti-HER2-/marcos (4B5) Rabbit Monoclonal Primary Antibody or INFORM HER2 Dual DONALD DNA Probe Cocktail assays. Patients were required to have had neoadjuvant taxane and trastuzumab-basedtherapy with residual invasive tumor in the breast [...] the time of the IDFS analysis. The most common adverse reactions (>= 25%) with KADCYLA were fatigue, nausea, increased transaminases, musculoskeletal pain, hemorrhage, thrombocytopenia, headache, peripheral neuropathy, and arthralgia. The recommended ado-trastuzumab emtansine dose is 3.6 mg/kg given as an intravenous infusion every 3 weeks (21-day cycle) for a total of 14 cycles for patients with EBC, unless there is disease recurrence or unacceptable toxicity. All questions were answered to patient satisfaction. She is interested to proceed with Kadcyla. Informed verbal consent was obtained ?? #2 Chemotherapy--monitoring for toxicity--thrombocytopenia resolved. ?? #3 Fatigue--grade 2. Should start improving, seeking emotional support appropriately. ?? #4 Menopausal symptoms--stable. ?? #5 Bone health--chronic LBP, worse with inactivity. Resumed seeing her chiropractor with good effect. ?? #6 Medication management --no new rx. Tamoxifen after RT. ?? Plan: ??1. Next visit with OIL PLANT OPERATOR, CBC, CMP and Kadcyla on April 30 2. After that visit with blood work and 2nd cycle of Kadcyla on May 21 The plan was discussed with the patient in details. All questions were answered to patient satisfaction. I would like to thank Dr. Cornejo for allowing me to participate in the care of this wonderful lady documented in this encounter Plan of Treatment Upcoming Encounters Date Type Department Care Team (Late st Contact Info) Description 02/13/2025 1:00 PM EDT Office Visit Radiation Oncology at [address] [phone] [facility] [place] [address] documented as of this encounter Visit Diagnoses Diagnosis HER2-positive carcinoma of right breast- Primary Encounter for chemotherapy management documented in this encounter Care Teams Sales Associate Fishing Relationship Specialty Start Date End Date Charleen Williamson APRN [address] [place] [address] PCP - General Family Medicine 06/29/20 documented as of this encounter
--- OUTSIDE RECORDS SUMMARY | 2024-05-09 14:03 | XMS_ITS | Encounter Summary ---
Author Organization [facility] Address [place] [address] Care Team Providers Care Racecourse Barrier Attendant Name Role Phone Charleen Williamson APRN Primary Care Provider [phone] [phone] Encounter Details Date Type Department Care Team (Late st Contact Info) Description 02/26/2021 1:00 PM EDT Office [place] [phone] Eulalio Hunt MD [facility] [place] [address] Cellulitis of chest wall Social History Tobacco Use Types Packs/Day Years [...] Progress Notes * Eulalio Hunt MD - 02/26/2021 1:00 PM EDT Alis Silva is a 30-year-old woman [...] breast mass showed invasive carcinoma, ER positive, ME positive and HER-2 positive. MRI showed a [...] seen. She randomized on the [place] trial [id number] to the axillary dissection arm. Therefore on 01/28/2021I did a right axillary dissection. 0 of 13 nodes were positive. I removed her drain on 02/13/21. She now returns for a check. She has recently developed some erythema under the mastectomy flaps. No fevers, no tenderness. No drainage of fluid. On physical exam her incision is very nicely healed. She has a 14 X 6 cm area of mild erythema under the lateral side of her mastectomy scar. No fluid collection. Non-tender. Impression: Cellulitis right chest after mastectomy. Will give bactrim for 10 days. She has an appointment with PT: I told her she could do any stretching exercise she wants. I will plan to see her back in June with a left mammogram. She will be due for a screening mammogram at that time. documented in this encounter Plan of Treatment Upcoming Encounters Date Type Department Care Team (Late st Contact Info) Description 02/13/2025 1:00 PM EDT Office Visit Radiation Oncology at [address] [phone] Eleonora Mensah MD [facility] DR [place] [address] documented as of this encounter Visit Diagnoses Diagnosis Cellulitis of chest wall Cellulitis and abscess of trunk documented in this encounter Care Teams Racecourse Barrier Attendant Relationship Specialty Start Date End Date Charleen Williamson APRN [address] [address] PCP - General Family Medicine 06/29/20 documented as of this encounter
--- OUTSIDE RECORDS SUMMARY | 2024-05-09 14:03 | XMS_ITS | Encounter Summary ---
Author Organization [facility] Address [facility] [place] [address] Care Team Providers Care Director Of Aviation Name Role Phone Charleen Williamson APRN Primary Care Provider [phone] Reason for Referral * Consultation (Routine) - Closed Specialty Diagnoses / Procedures Referred By Contac t Referred To Contact Hematology and Oncology Diagnoses Malignant 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, estrogen receptor positive Tyra Cornejo MD [facility] [place] [address] [facility] Hem Onc Office [address] [place] [phone] Referral ID Status Reason Start Date Expiration Date V isits Requested Visits Authorized [id number] Closed Consult, Test & Treat 03/15/2021 03/15/2022 1 1 Encounter Details Date Type Department Care Team (Late st Contact Info) Description 03/15/2021 Orders Only [place]ematology [place] [address] Tyra Cornejo MD [facility] [place] [address] Malignant neoplasm of central portion of right [...] EDT Office Visit Radiation Oncology at [address] [phone] Eleonora Mensah MD [facility] [address] Scheduled Referrals Name Type Priority Associated Diagnoses Order Schedule Referral to Hematology and Oncology Outpatient Referral Routine Malignant 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, estrogen receptor positive Ordered: 03/15/2021 documented as of this encounter Visit Diagnoses Diagnosis Malignant 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, estrogen receptor positive documented in this encounter Care Teams Director Of Aviation Relationship Specialty Start Date End Date Charleen Williamson APRN [address] [place] [address] PCP - General Family Medicine 06/29/20 documented as of this encounter
--- OUTSIDE RECORDS SUMMARY | 2024-05-09 14:03 | XMS_ITS | Encounter Summary ---
Author Organization [facility] [place] [address] Care Team Providers Care Jv Baseball Coach Name Role Phone Charleen Williamson APRN Primary Care Provider [phone] [phone] Encounter Details Date Type Department Care Team (Late st Contact Info) Description 02/15/2021 Orders Only [place] [id number] Tyra Cornejo MD [facility] [address] [place] [address] Malignant neoplasm of central portion of right [...] encounter Miscellaneous Notes * Addendum Note - Nimesh Bonner RN - 02/15/2021 3:26 PM EDTAddended by: NIMESH BONNER on: 02/18/2021 03:51 PM Modules accepted: Orders * Addendum Note - Nimesh Bonner RN - 02/15/2021 3:26 PM EDTAddended by: NIMESH BONNER on: 02/22/2021 01:45 PM Modules accepted: Orders documented in this encounter Plan of Treatment Upcoming Encounters Date Type Department Care Team (Late st Contact Info) Description 02/13/2025 1:00 PM EDT Office Visit Radiation Oncology at [address] [phone] Eleonora Mensah MD [facility] [place] [address] documented as of this encounter Results * (ABNORMAL) Comprehensive metabolic panel (non-fasting) (02/26/2021 1:55 PM EDT) [facility] Glucose 140 65 - 199 mg/dL [facility] Comment:Diabetes: >=200 mg/d L plus symptoms Blood Urea Nitrogen 11 8 - 18 mg/dL [facility] Creatinine 0.72 0.70 - 1.20 mg/dL [facility] Sodium 138 135 - 145 mmol/L [facility] Potassium 4.1 3.5 - 5.0 mmol/L [facility] [...] mmol/L [facility] Anion Gap 11 5 - 15 mmol/L [facility] Calcium 9.9 8.5 - 10.5 mg/dL [facility] Protein, Total 8.5(H) 6.1 - 8.0 g/dL [facility] Albumin 4.3 3.2 - 5.2 g/dL [facility] Aspartate Aminotransferase Not Perf 0 - 30 [facility] Comment:Unable to quantitate due to sample hemolysis. Sample redraw suggested. Alanine Aminotransferase 16 0 - 30 unit/L [facility] Alkaline Phosphatase 90 35 - 105 unit/L [facility] Bilirubin, Total 0.2 0.2 - 1.3 mg/dL [facility] Est Glomerular Filtration Rate 114 >=60 mL/min/1. 73 m?? [facility] Comment: This patient? s [...] CHEMISTRY ORDERABLE S [facility] [place] [address] documented in this encounter Visit Diagnoses Diagnosis Malignant 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, estrogen receptor positive documented in this encounter Care Teams Jv Baseball Coach Relationship Specialty Start Date End Date Charleen Williamson APRN [address] [place] [address] PCP - General Family Medicine 06/29/20 documented as of this encounter
--- OUTSIDE RECORDS SUMMARY | 2024-05-09 14:03 | XMS_ITS | Encounter Summary ---
Author Organization [facility] Address [facility] [place] [address] Care Team Providers Care Guide Dog Mobility Instructor Name Role Phone Charleen Williamson APRN Primary Care Provider [phone] [phone] Reason for Visit * Reason Comments Chemotherapy Cycle 1, Day 1; Kadc yla * Treatment/Therapy Plan Authorization (Routine) - Closed Specialty Diagnoses / Procedures Referred By Fawn weston Referred To Contact Diagnoses 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, estrogen receptor positive Procedures INJ, ADO-TRASTUZUMAB EMT 1MG TC GOSERELIN ACETATE IMPLANT, 3.6MG (ZOLADEX) TC PALONOSETRON HCL, 25MCG, INJECTION (ALOXI) Tyra Cornejo MD [facility] [place] [address] [facility] Hem Onc Office [address] [place] [phone] Referral ID Status Reason Start Date Expiration Date Visits Re quested Visits Authorized [id number] Closed 03/01/2021 04/26/2022 99 99 Encounter Details Date Type Department Care Team (Late st Contact Info) Description 04/30/2021 9:30 AM EST Infusion Hematology Oncology at [address] [phone] Malignant neoplasm of overlapping sites [...] as of this encounter Progress Notes * Jorden Chiang RN - 04/30/2021 9:30 AM EST INFUSION THERAPY ADMINISTRATION NOTES DIAGNOSIS: Breast Cancer CYCLE #: 1, Day 1 REASON FOR VISIT: ado-Trastuzumab emtansine SUBJECTIVE Alis Silva offers no complaints. OBJECTIVE LAB DATA: [facility] at [facility] IV ACCESS: Mediport accessed at OSH for Labs, brisk blood return noted Pre administration: Chemotherapy orders independently verified for drug name, route, and dosage per patient's height, weight and BSA by JORDEN CHIANG, DENISE & onsite pharmacist. REACTIONS (DESCRIPTION, TIME, INTERVENTION AND EFFECTIVENESS) none ASSESSMENT Alis Silva was awake, alert and tolerated treatment well. Remained in clinic for 90min after infusion to monitor for reactions without issue PLAN Return to clinic per routine. documented in this encounter Plan of Treatment Upcoming Encounters Date Type Department Care Team (Late st Contact Info) Description 02/13/2025 1:00 PM EDT Office Visit Radiation Oncology at [address] [phone] Eleonora Mensah MD [facility] [place] [address] documented as of this encounter [...] 300 mg, Intravenous, ONCE, 1 dose, On Thu04/30/21 at 1045, Administer over 90 Minutes, Dose Ordered = 303 mg (3.6 mg/kg). Pharmacist rounded dose per procedure. Monitor patient for 90 minutes after the first dose of ado-trastuzumab emtansine for infusion reactions., This agent is restricted to outpatient use. Is this drug being given as an outpatient? Yes New Bag 04/30/2021 10:08 AM EST 300 mg 176.7 mL/hr heparin (pf) (porcine) (100 units/mL) flush 5 mL syringe 500 Units 500 Units, Intravenous, ONCE PRN, Starting on Thu04/30/21 at 0919, Until Thu04/30/21 at 1751, Line Care, Refer to Intravenous (IV) Procedure: Accessing Implanted Vascular Access Devices (784) procedure and/or Intravenous (IV) Job Aid: Adult Flushing & Catheter Care (6323) job aid for additional information regarding guidelines and administration., Routine Given 04/30/2021 1:16 PM EST 500 Units ondansetron (Zofran) tablet 8 mg 8 mg, Oral, ONCE, 1 dose, On Thu04/30/21 at 0945, Administer prior to chemotherapy, Routine Given 04/30/2021 9:27 AM EST 8 mg sodium chloride 0.9 % (flush) (BD PosiFlush Normal Saline 0.9) flush 5-20 mL 5-20 mL, Intravenous, EVERY 1 MIN PRN, Starting on Thu04/30/21 at 0919, Until Thu04/30/21 at 1751, Line Care, Flush pertains to all indwelling lines. Flush per protocol found in the job aid using the link provided on this medication record. Refer to Intravenous (IV) Job Aid: Adult Flushing & Catheter Care (4764) job aid for additional information regarding guidelines and administration., Routine Given 04/30/2021 1:15 PM EST 20 mLs documented in this encounter Care Teams Guide Dog Mobility Instructor Relationship Specialty Start Date End Date Charleen Williamson APRN [address] [place] [address] PCP - General Family Medicine 06/29/20 documented as of this encounter
--- OUTSIDE RECORDS SUMMARY | 2024-05-09 14:03 | XMS_ITS | Encounter Summary ---
Author Organization [facility] [place] [address] Care Team Providers Care File Keeper Name Role Phone Charleen Williamson APRN Primary Care Provider [phone] [phone] Encounter Details Date Type Department Care Team (Late st Contact Info) Description 04/16/2021 Telephone Radiation Oncology at [address] [phone] Eleonora Mensah MD [facility] [place] [address] Social History Tobacco Use Types Packs/Day Years [...] encounter Miscellaneous Notes * Telephone Encounter - Eleonora Mensah MD - 04/16/2021 8:11 AM EST Phone conversation w/Alis to explain decision to give radiotherapy off protocol, in order to minimize xrt dose to L breast. Beam films 04/18/21, start xrt 04/22/21. 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
--- OUTSIDE RECORDS SUMMARY | 2024-05-09 14:03 | XMS_ITS | Encounter Summary ---
Author Organization [facility] [place] [address] Care Team Providers Care Design Maker Name Role Phone ClayCharleen packer Christopher HAYNES Primary Care Provider [phone] [phone] Encounter Details Date Type Department Care Team (Late st Contact Info) Description 01/21/2021 Orders Only H[place]ology [place] [address] Tyra Cornejo MD [facility] DR [place] [address] Social History Tobacco Use Types Packs/Day Years [...] EDT Office Visit Radiation Oncology at [address] [phone] Eleonora Mensah MD [facility] [place] [address] documented as of this encounter Visit Diagnoses Not on filedocumented in this encounter Care Teams Design Maker Relationship Specialty Start Date End Date Charleen Williamson APRN [address] [place] [address] PCP - General Family Medicine 06/29/20 documented as of this encounter
--- OUTSIDE RECORDS SUMMARY | 2024-05-09 14:03 | XMS_ITS | Encounter Summary ---
[place] [address] Care Team Providers Care Asphalt Patcher Name Role Phone Charleen Williamson APRN Primary Care Provider [phone] [phone] Reason for Visit * Reason Comments Chemotherapy Injections * Treatment/Therapy Plan Authorization (Routine) - Closed Specialty Diagnoses / Procedures Referred By Fawn weston Referred To Contact Diagnoses 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, estrogen receptor positive Procedures TC GOSERELIN ACETATE IMPLANT, 3.6MG (ZOLADEX) [id number] Zoladex (Goserelin) Tyra Cornejo MD [facility] [place] [address] [facility] Hem Onc [address] [place] [address] Referral ID Status Reason Start Date Expiration Date Visits Re quested Visits Authorized [id number] Closed 07/27/2020 07/14/2021 99 99 Encounter Details Date Type Department Care Team (Late st Contact Info) Description 04/05/2021 8:00 AM EST Infusion Hematology Oncology at [address] [phone] Malignant neoplasm of overlapping sites [...] Sign Reading Time Taken Comments Blood Pressure 129/62 04/05/2021 8:15 AM EST Pulse 75 04/05/2021 8:15 AM EST Temperature 37.1 ??C (98.7 ??F) 04/05/2021 8:15 AM ES T Respiratory Rate 20 04/05/2021 8:15 AM EST Oxygen Saturation 98% 04/05/2021 8:15 AM EST Inhaled Oxygen Concentration - - Weight 85.6 kg (188 lb 12.8 oz) 04/05/2021 8:15 AM EST Height 175.3 cm (5' 9.02) 04/05/2021 8:15 AM ES T Body Mass Index 27.87 04/05/2021 8:15 AM EST documented in this encounter Progress Notes * Steven Luque RN - 04/05/2021 8:00 AM EST Infusion Note Diagnosis: Breast Cancer Treatment: Zoladex Injection Zoladex 3.6 mg injected in Left Lower Quadrant Patient instructed on side effects of Zoladex. Patient states understanding of teaching, Patient aware to call clinic with any questions or concerns. Plan: Return to clinic as scheduled. documented in this encounter Plan of Treatment Upcoming Encounters Date Type Department Care Team (Late st Contact Info) Description 02/13/2025 1:00 PM EDT Office Visit Radiation Oncology at [address] [phone] Eleonora Mensah MD [facility] [place] [address] documented as of this encounter Visit Diagnoses Diagnosis 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, estrogen receptor positive documented in this encounter Administered Medications Inactive Administered Medications - up to 3 most recent administrations Medication Order MAR Action Action Date Dose Rate Site goserelin (ZOLADEX) implant 3.6 mg 3.6 mg, Subcutaneous, ONCE, 1 dose, On Thu04/05/21 at 0845, Routine, This agent is restricted to outpatient use. Is this drug being given as an outpatient? Yes Given 04/05/2021 8:31 AM EST 3.6 mg Left Lower Quadrant lidocaine (Xylocaine) 1% (10 mg/mL) injection 10 mg 10 mg (1 mL), Subcutaneous, ONCE, 1 dose, On Thu04/05/21 at 0845, Order either Ice or lidocaine for the injection. Inject up to 3 mL, Routine Given 04/05/2021 8:28 AM EST 10 mg documented in this encounter Care Teams Asphalt Patcher Relationship Specialty Start Date End Date Charleen Williamson APRN [address] [place] [address] PCP - General Family Medicine 06/29/20 documented as of this encounter
--- OUTSIDE RECORDS SUMMARY | 2024-05-09 14:03 | XMS_ITS | Encounter Summary ---
[place] [address] Care Team Providers Care Engineer Systems Name Role Phone Charleen Williamson APRN Primary Care Provider +1 [phone] Encounter Details Date Type Department Care Team (Late st Contact Info) Description 02/19/2021 Telephone [place] [phone] Candi Erwin RN Social History Tobacco Use Types Packs/Day [...] encounter Miscellaneous Notes * Telephone Encounter - Candi Erwin RN - 02/19/2021 9:11 AM EDT Images from the original note were not included. Nursing Triage - Phone Note CALLER: Alis Christopher RN CHIEF COMPLAINT: swelling SUBJECTIVE- I am having some swelling near my incision line where Dr. Hunt did my surgery. PERTINENT PAST SURGICAL HISTORY: Alis Silva is a 30-year-old woman who returns after neoadjuvant chemotherapy for a HER-2 positive right breast cancer and then right mastectomy and right axillary targeted node excision on January 03, 2021, and right ax dissection on 01/28/21. ?? She presented in June 2020 with a [...] breast mass showed invasive carcinoma, ER positive, NJ positive and HER-2 positive. MRI showed a 6 x 4 cm mass that involved the nipple. She had a metastatic work- up CT and bone scan showed no distant metastases. ?? 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 ?? She was considered to not have inflammatory breast cancer because she did not meet the NCCN criteria of more than a third of her breast skin being erythematous and edematous. ?? She received 6 cycles of TCHP with egg preservation. ?? Follow-up MRI showed that the mass in [...] targeted node excision and sentinel node excision. ?? On 01/03/2021 I did a right mastectomy. [...] with any further surgery at that time. ?? Pathology showed that she had a 1 mm metastasis in 1 lymph node that was identified. No other nodeswere seen. In her breast she had a 13 cm tumor bed with isolated tumor cells and nests of tumor cells throughout that tumor bed. All the margins were widely negative, > 1 cm. There was some dermal lymphovascular invasion seen. ?? She randomized on the alliance trial [id number] to the axillary dissection arm. Therefore on 01/28/2021I did a right axillary dissection. 0 of 13 nodes were positive. ?? She now returns for a check. Her MARSHA drain has been putting out about 60 mL a day despite keeping her arm in a sling. ?? On physical exam her incision is very nicely healed. There is no sign of infection, hematoma or seroma. I removed her drain. ?? Impression: Alis is recovering well after right axillary dissection and after right mastectomy. ?? I gave her a copy of her pathology report and we reviewed it. ?? She understands that chest wall radiation therapy is planned. Since she has to move her arm above her head for the treatment planning films we are going to delay her treatment planning CT scan for about 3 weeks from now so that she can accomplish that to get her treatment planning CT. ?? I asked my pellet press operator to set her up with a physical therapist in [facility]. I demonstrated rangeof motion exercises for her which I asked her to start 5 days from now to give it a little more time to seal down and heal up given the given that she was draining 60 mL/day from her drain. ?? I also asked for her to set her up to see Brianna Collier to discuss right breast prosthesis. ?? I will plan to see her back in June with a left mammogram. She will be due for a screening mammogram at that time. ?? Copy to Eleonora Bazan and Tyra Cornejo. NURSING ASSESSMENT: Spoke with Alis. She states that she started to develop some swelling by her left axilla incision. She says that is is not red or warm to the touch No drainage.She is unable to describe the size because of the nature of the swelling. She denies fevers, chills, nausea or pain but does have generalized discomfort. She would like to know if this is something that needs to be drained. INTERVENTION/PLAN/ FOLLOW UP: I have asked Alis to continue to monitor the area for s/sx of infection, which includes spreading redness, warmth to the area, fever, increasing pain or new purulent drainage. I told her to send us a photo of the area and I will forward it to Dr. Hunt; in the meantime she can apply a warm compress and take her prescribed pain relievers like Tylenol. She agrees to this plan. Disposition:Patient to continue to monitor from home. Teaching:I reviewed the signs and symptoms of infection (fever of 101, spreading redness that is hot to the touch, purulent drainage, severe persistent pain) and instructed the patient to continue tomonitor. Patient able to verbalize teaching plan: Y Worsening symptoms:If you develop fever of 101, spreading redness, purulent drainage, severe prolonged pain, prolonged nausea and vomiting, please call ([phone] during daytime and [phone] at night/weekends) and/or go to the ED for evaluation. If you are bleeding and cannot get it to stop,have chest pain or breathing difficulties please go to the closest ED or call 911 for assistance. Patient able to verbalize worsening symptom plan: Y Resource in decision making: PCP: Charleen Williamson APRN documented in this encounter Plan of Treatment Upcoming Encounters Date Type Department Care Team (Late st Contact Info) Description 02/13/2025 1:00 PM EDT Office Visit Radiation Oncology at [address] [phone] Eleonora Mensah MD [facility] [place] [address] documented as of this encounter Visit Diagnoses Not on filedocumented in this encounter Care Teams Engineer Systems Relationship Specialty Start Date End Date Charleen Williamson APRN [address] [place] [address] PCP - General Family Medicine 06/29/20 documented as of this encounter
--- OUTSIDE RECORDS SUMMARY | 2024-05-09 14:03 | XMS_ITS | Encounter Summary ---
[place] [address] Care Team Providers Care Saxophone Teacher Name Role Phone Charleen Williamson APRN Primary Care Provider [phone] [phone] Reason for Visit * Auth/Cert Specialty Diagnoses / Procedures Referred By Fawn t Referred To Contact Diagnoses Breast cancer breast cancer Procedures PRO REMOVE ARMPITS LYMPH NODES COMPLT LYMPHADENECTOMY, AXILLARY, COMPLETE (WRVU 13.87) Referral ID Status Reason Start Date Expiration Date Visits Re quested Visits Authorized [id number] 1 1 Encounter Details Date Type Department Care Team (Late st Contact Info) Description 01/28/2021 7:30 AM EDT - 01/28/2021 9:45 AM EDT Surgery [place] [address] Eulalio Eng MD [facility] [place] [address] LYMPHADENECTOMY, AXILLARY, COMPLETE (WRVU 13.87) Social History Tobacco Use Types Packs/Day Years [...] Sign Reading Time Taken Comments Blood Pressure 128/86 01/28/2021 6:52 AM EDT Pulse 76 01/28/2021 6:52 AM EDT Temperature 36.2 ??C (97.2 ??F) 01/28/2021 6:52 AM ED T Respiratory Rate 16 01/28/2021 6:52 AM EDT Oxygen Saturation 98% 01/28/2021 6:52 AM EDT Inhaled Oxygen Concentration - - [...] closest emergency room or call the hospital nuclear plant equipment operator at [phone] and ask for physician occupational therapist's assistant covering for your physician. Questions or problems after 5pm or on a weekend: Call the [facility] nuclear plant equipment operator at and ask for the physician occupational therapist's assistant covering for your doctor. * Patient Instructions* [...] 101.3 F. The number for questions is [phone] before 5 PM week. Pain Medication: Please [...] 11:00 AM [facility]in [facility] [place] [facility] 02/05/2021 11:30 AM Eleonora Mensah MD [facility] [place] [facility] 02/05/2021 11:30 AM ST[facility]idel RAD/ONC, TREATMENT [facility] [place] [facility] 02/13/2021 8:30 AM Eulalio Eng [address] [facility] HEM ONC [facility] Please call [phone] (clinic number) if any changes need to [...] accompanied by [facility] staff member. knows to picking machine operator meds and where. * Joy [...] again, temperature will be taken, patient and caregiver/double bottom driver will be given a mask to wear the entire time they are in the [facility] building. Patient also stated when I asked about menstruating that she is not getting her period currently because she is getting Zolidex injections to protect her ovaries. Patient states she just took at test at [facility] and had to have a negative test [...] Eng MD - 01/28/2021 8:[address] [facility] Operative Note Patient Name: Alis Silva : [id number] MR#: [id number] Case Date: 01/28/2021 Surgeon: Surgeon(s) and Role: [...] collapsible closed device (Active) Dressing dressing applied 01/28/21 0927 Surgical Closure: Primary Closure - skin incision is completely closed without any wires, lilly, drains or other devices Indications for surgery: Alis Silva is a 30-year-old woman who had a positive targeted lymph node removed from her right axilla after neoadjuvant chemotherapy. She was entered on [place] trial [id number] which randomized her to receive an axillary [...] perfect hemostasis. We then left a 10 Citizen [place] Cedric-Mitchell drain and sutured that in place. [...] EDT Office Visit Radiation Oncology at [address] [address] Eleonora Mensah MD [facility] [place] [address] documented as of this encounter Procedures Procedure Name Priority Date/Time Associated Diagnosis Comments SURGICAL PATHOLOGY REPORT Routine 01/28/2021 9:20 AM EDT SPECIMEN TO PATHOLOGY Routine 01/28/2021 9:20 AM EDT Remove Armpits Lymph Nodes Complt ([id number]) Yes 01/28/2021 7:31 AM EDT breast cancer documented in this encounter Results * Surgical Pathology Report (01/28/2021 9:20 AM EDT) Final Diagnosis [id number] ? Location: [facility] The signing pathologist has (i) examined the relevant preparation(s) for the specimen(s) and (ii) rendered or confirmed the diagnosis(es). . ?Surgical Pathology DIAGNOSIS Right axillary dissection: Thirteen lymph nodes, negative for malignancy (0/13). Electronically signed by: ?Annel Michaels DO Verified: ??01/31/2021 14:25 ??Pathologist Performed at: ??-[facility] Dept. of Pathology, [place], [place] SPECIMEN(S) SUBMITTED A - Right axillary [...] sing: The lymph nodes are entirely submitted. Remote Encoding Center Manager sections in 18 cassettes as follows: ?A1: ??Four nodes ?A2: ??Three nodes ?A3: ??Two nodes ?A4: ??One node bisected ?A5: ??One node bisected ?A6: ??One node bisected ?A7-A9: ??? One lymph node, serially sectioned ?A10-A15: ??One node serially sectioned ?A16-A18: ??One node serially sectioned ??sns 01/31/2021 2:25 PM EDT [facility] Axillary Contents 01/28/2021 9:20 AM EDT 01/28/2021 9:20 AM EDT Eulalio Eng MD PATHOLOGY/CYTOLOGY O ROGELIO Performing Organization Address City/[facility]/ZIP Co de Phone Number [facility] [place] [address] * Specimen to Pathology (01/28/2021 9:20 AM EDT) AP Specimen 01/28/2021 9:20 AM EDT 01/28/2021 9:20 AM EDT Narrative [facility] - 01/28/2021 9:20 AM EDT Specimen requisition ordered. ??Separate Pathology report to follow Eulalio Eng MD PATHOLOGY/CYTOLOGY O ROGELIO Performing Organization Address [facility] [place] [address] documented in this encounter Visit Diagnoses Not on filedocumented in this encounter Administered Medications Inactive Administered Medications - up to 3 most recent administrations Medication Order MAR Action Action Date Dose Rate Site BUpivacaine (pf) (Marcaine) (5 mg/mL) 0.5% injection ONCE PRN, Starting on Thu01/28/21 at 0805, Until Thu01/28/21 at 1330, Intra-Operative (Intra-Procedure), Routine Given 01/28/2021 8:05 AM EDT 5 mLs 19- Surgical Site heparin (pf) (porcine) (100 units/mL) flush 5 mL syringe 500 Units 500 Units (5 mL), Intravenous, DAILY PRN, 1 dose, Starting on Thu01/28/21 at 1103, Until Thu01/28/21 at 1330, Line Care, Terminal Flush for de-accessing of Implantable Port, Routine lidocaine (pf) (Xylocaine) (10 mg/mL) 1% injection ONCE PRN, Starting on Thu01/28/21 at 0805, Until Thu01/28/21 at 1330, Intra-Operative (Intra-Procedure), Routine Given 01/28/2021 8:05 AM EDT 5 mLs 19- Surgical Site scopolamine (TRANSDERM-SCOP) 1 mg patch Patch Removal [...] Until Thu01/28/21 at 1330, Intra-Operative (Intra-Procedure), Routine 08 (Given - Provid er: Monica Montoya MD [...] Until Thu01/28/21 at 1330, Intra-Operative (Intra-Procedure), Routine 08 (Given - Provid er: Monica Montoya MD - Comment: mixed 1:1 with 0.5% marcaine) oxyCODONE (Roxicodone) tablet 5 mg 5 mg, Oral, ONCE PRN, 1 dose, Starting on Thu01/28/21 at 0957, Until Thu01/28/21 at 1330, Pain, May repeat once in 30 minutes if ineffective., Routine documented in this encounter Care Teams Saxophone Teacher Relationship Specialty Start Date End Date Charleen Williamson APRN [address] [place] [address] PCP - General Family Medicine 06/29/20 documented as of this encounter
--- OUTSIDE RECORDS SUMMARY | 2024-05-09 14:03 | XMS_ITS | Encounter Summary ---
Author Organization [facility] [place] [address] Care Team Providers Care Sharepoint Engineer Name Role Phone Charleen Williamson APRN Primary Care Provider [phone] [phone] Encounter Details Date Type Department Care Team (Late st Contact Info) Description 03/06/2021 Telephone Radiation Oncology at [address] [address] Gretta Burk RN Social History Tobacco Use Types Packs/Day [...] Telephone Encounter - Gretta Burk RN - 03/06/2021 6:01 PM EST Telephone call to patient. She asks if the Leo protocol is available in [facility]. I let her knowthat we do not have the camaras in [facility] and that for now she would have to go to [facility] for that protocol. I also let her know that both Dr. Cornejo and Dr. Cabrera advised that she should have the radiation wherever it's most comfortable/convenient for her. Alis states that [facility] is most convenient rather than daily trips to [facility] so she will plan to receive her xrt in [facility]. She anticipates coming in 03/[address] sim[address] * Telephone Encounter - Gretta Burk RN - 03/06/2021 6:00 PM EST ----- Message from Odessa Jones sent at 03/06/2021 12:36 PM EST ----- Can you please call the patient and explain the below information. Thank you, Odessa ----- Message ----- From: Danni Ryan Sent: 03/06/2021 10:35 AM EST To: [facility] Office Associate Could you please help with passing along Dr. Cabrera' response to patient? ----- Message ----- From: Tyra Cornejo MD Sent: 03/05/2021 8:31 AM EST To: Eleonora Mensah MD, Sveta Cabrera MD, # Ok thanks Sveta! Karlene/ Dafne--could you let alis know? If she wants the special cameras that Dr. Cabrera discussed at her presentation she'd have to come to [facility] but at this point there's no proven advantage to doing that. She should have the radiation wherever it's most comfortable for her. Tyra ----- Message ----- From: Sveta Cabrera MD Sent: 03/04/2021 10:09 PM EST To: Tyra Cornejo MD, Eleonora Mensah MD, # Tyra- We don't have cameras in [facility]. Interestingly, we do in [place] though. Hopefully, we will in all of our sites someday. Meanwhile, I recommend that she have tx where it is most convenient for her now though. lj ----- Message ----- From: Tyra Cornejo MD Sent: 03/01/2021 4:38 PM EST To: Eleonora Mensah MD, Sveta Cabrera MD, # Please schedule TDM-1 infusions in [facility], needs med onc referral but I can enter the beacon plan. F/u with me in about 3 months Rad Onc as planned: Alis Maza was asking about the Renato protocol, is that possible in [facility]? documented in this encounter Plan of Treatment Upcoming Encounters Date Type Department Care Team (Late st Contact Info) Description 02/13/2025 1:00 PM EDT Office Visit Radiation Oncology at [address] [phone] Eleonora Mensah MD [facility] [place] [address] documented as of this encounter Visit Diagnoses Not on filedocumented in this encounter Care Teams Sharepoint Engineer Relationship Specialty Start Date End Date Charleen Williamson, TECHNICAL SERVICE REP [address] [place] [address] PCP - General Family Medicine 06/29/20 documented as of this encounter
--- OUTSIDE RECORDS SUMMARY | 2024-05-09 14:03 | XMS_ITS | Encounter Summary ---
Author Organization [facility] Address [facility] [place] [address] Care Team Providers Care Inspector Balance Bridge Name Role Phone Charleen Williamson APRN Primary Care Provider [phone] [phone] Reason for Referral * Diagnostic Test (Routine) - Closed Specialty Diagnoses / Procedures Referred By Contac t Referred To Contact Cardiology Diagnoses Malignant 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, estrogen receptor positive Procedures Echocardiogram Transthoracic([facility]) Tyra Cornejo MD [facility] [address] [place] [address] [facility] [place] [address] Referral ID Status Reason Start Date Expiration Date V isits Requested Visits Authorized [id number] Closed Specialty Service Requested 02/13/2021 02/13/2022 1 1 Reason for Visit * Diagnostic Test (Routine) - Closed Specialty Diagnoses / Procedures Referred By Contac t Referred To Contact Cardiology Diagnoses Malignant 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, estrogen receptor positive Procedures Echocardiogram Transthoracic([facility]) Tyra oCrnejo MD [facility] [address] [place] [address] [facility] [place] [address] Referral ID Status Reason Start Date Expiration Date V isits Requested Visits Authorized [id number] Closed Specialty Service Requested 02/13/2021 02/13/2022 1 1 Encounter Details Date Type Department Care Team (Latest Contact Info) Description 02/20/2021 8:45 AM EDT - 02/20/2021 11:59 PM EDT Hospital Encounter Non[place] [address] Tyra Cornejo MD [facility] [address] [place] [address] Malignant neoplasm of central portion of right [...] EDT Office Visit Radiation Oncology at [address] [address] Eleonora Mensah MD [facility] [place] [address] documented as of this encounter Procedures Procedure Name Priority Date/Time Associated Diagnosis Comments ECHO COMPLETE W CONTRAST Routine 02/20/2021 10:26 AM EDT Malignant 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, estrogen receptor positive documented in this encounter Results * ECHO COMPLETE W CONTRAST (02/20/2021 10:26 AM EDT) EF 59 HEARTLAB SYSTEM Anatomical Region Laterality Modality Other 02/20/2021 Narrative 02/20/2021 10:38 AM EDT Procedure: ?Transthoracic Echocardiogram Patient: ?REYNA FORMAN R ?(Age): 1990(30y) Med Rec#: ? [id number] ?Sex: ?F ? [place] Loc: ? [facility] ?Ht / Wt: ??175.26(cm)/85.2 Pt. Loc: ?Echo Lab ?BSA: ?2.01 Study Date: ?? 02/20/2021 ?Pt. Type: Outpatient Tape: ? Referring: Tyra Cornejo Reading: Gio Garcia ([id number]) Egg Grader: Jolly Jo Diagnosis: *Malignant neoplasm of central portion of right female breast (C50.111) *Estrogen receptor positive status [ER+] (Z17.0) BP: ? 129/78 SUMMARY: 1. The left ventricular chamber size is normal. Left ventricular wall thickness is normal. There are no left ventricular segmental wall motion abnormalities. There is normal global left ventricular systolic function. The quantitative left ventricular ejection fraction by biplane Garcia's method is 59%. Doppler assessment is consistent with normal left sided filling pressure. The study was too technically limited to perform an analysis of strain. 2. The right ventricle is normal in size. Right ventricular global systolic function is normal. 3. There is no hemodynamically significant valve disease. 4. No significant change compared to the prior study from 12/06/20. 5. See remainder of report for additional findings. Findings ? : Study Quality: ? Technically limited Left Ventricle: ? The left ventricular chamber size is normal. ?Left ventricular wall thickness is normal. ?There is no evidence of LVOT obstruction. ?There is normal global left ventricular systolic function. ?The quantitative left ventricular ejection fraction by biplane Garcia's method is 59%. ?There are no left ventricular segmental wall motion abnormalities. ?Doppler assessment is consistent with normal left sided filling pressure. Left Atrium: ? The left atrium is normal in size. Right Ventricle: ? The right ventricle is normal in size. ?Right ventricular global systolic function is normal. ?Pulmonary artery hypertension could not be assessed due to inadequate tricuspid regurgitation jet. Right Atrium: ? The right atrium is normal in size. Aortic Valve: ? The aortic valve is tricuspid. ?There is no evidence of aortic valve stenosis. ?There is no evidence of aortic regurgitation. Mitral Valve: ? The mitral valve leaflets appear normal. Tricuspid Valve: ? The tricuspid valve leaflets are morphologically normal. ?There is no evidence of tricuspid valve regurgitation present. Pulmonic Valve: ? The pulmonic valve is not well visualized. Pericardium: ? There is no pericardial effusion. Aorta: ? The aortic root is normal in size. ?The ascending aorta is normal in size. Pulmonary Artery: ? The main pulmonary artery is not well visualized. Venous: ? The inferior vena cava appears normal in size. ?There is a greater than 50% respiratory change in the inferior vena cava dimension. Misc: ? Two-dimensional echo, spectral Doppler and color Doppler performed. ?Definity contrast (one 1.5 ml vial)was used to enhance endocardial definition. Excess contrast was discarded. Chambers 2D ?Value ?Units (Range) ? IVSd (2D) ? 0.76 ? cm ? LVPWd (2D) ?0.83 ? cm ? IVS:LVPW ratio (2D) 0.92 ? ratio ? RWT (2D) ?0.34 ? ratio ? RWT PW (2D) ? 0.36 ? ratio ? LVIDd (2D) ?4.67 ? cm ? LVIDs (2D) ?2.92 ? cm ? LVIDd (2D) index ?2.32 ? cm/m2 ? LVIDs (2D) index ?1.45 ? cm/m2 ? LV FS (2D) ?37.47 ?% ? EF Teichholz (2D) ?? 67.51 ?% ? Ao root diameter (2D3 ?cm (2.1 - 3.6) ? Ascending Ao ?2.4 ?cm (2 - 3.5) ? Volumes/Mass ?Value ?Units (Range) ? LA Area 4 CH ?10 ? cm2 (<21) ? RA AREA 4CH ? 9 ?cm2 ? LA ESV BP (MOD) inde9.05 ? ml/m2 ? LV ESV SP 4CH (MOD) 28.1 ? ml ? LV ESV SP 2CH (MOD) 32.4 ? ml ? LV EDV BP ? 75.8 ? ml ? LV ESV BP ? 31 ? ml ? LV EDV BP index ? 37.67 ?ml/m2 ? LV ESV BP index ? 15.41 ?ml/m2 ? BP EF (MOD) ? 59.1 ? % ? LV mass (2D) ?120.36 ? g ? LV mass (2D) index ??59.82 ?g/m2 ? Diastolic/Systolic Function ?Value ?Units (Range) ? MV E-wave Vmax ?0.84 ? m/sec ? MV deceleration [id number] ?msec ? MV A-wave Vmax ?0.53 ? m/sec ? MV E:A ratio ?1.58 ? ratio ? LV septal e' Vmax ?? 0.16 ? m/sec ? LV lateral e' Vmax ??0.14 ? m/sec ? LV average e' Vmax ??0.15 ? m/sec ? LV E:e' septal ratio5.27 ? ratio ? LV E:e' lateral rati6.02 ? ratio ? LV average E:e' rati5.62 ? ratio ? Aortic Valve ?Value ?Units (Range) ? LVOT diameter ? 1.8 ?cm ? LVOT Vmax ? 1.08 ? m/sec ? LVOT VTI ?20.7 ? cm ? LVOT peak gradient ??5 ?mmHg ? LVOT mean gradient ??2 ?mmHg ? SV LVOT ? 52.65 ?ml ? SV LVOT Index ? 26 ? ml/m2 ? Mitral Valve ?Value ?Units (Range) ? MV PHT ?68 ? msec ? MVA (PHT) ? 3.2 ?cm2 ? This report has been electronically signed by: Gio Garcia MD ? 02/20/2021 10:37:38 Images reviewed and interpretation verified [facility] Cardiac Ultrasound Laboratory Procedure Note Gio Garcia MD - 02/20/2021 Procedure: Transthoracic Echocardiogram Patient: REYNA HEMPHILL(Age): 1990(30y) Med Rec#: [id number] Sex: F [place] Loc[place] [facility] Ht / Wt: 175.26(cm)/85.2 Pt. Loc: Echo Lab BSA: 2.01 Study Date: 02/20/2021 Pt. Type: Outpatient Tape: Referring: Tyra Cornejo Reading: Gio Garcia ([id number]) Egg Grader: Jolly Jo Diagnosis: *Malignant neoplasm of central portion of right female breast (C50.111) *Estrogen receptor positive status [ER+] (Z17.0) BP: 129/78 SUMMARY: 1. The left ventricular chamber size is normal. Left ventricular wall thickness is normal. There are no left ventricular segmental wall motion abnormalities. There is normal global left ventricular systolic function. The quantitative left ventricular ejection fraction by biplane Garcia's method is 59%. Doppler assessment is consistent with normal left sided filling pressure. The study was too technically limited to perform an analysis of strain. 2. The right ventricle is normal in size. Right ventricular global systolic function is normal. 3. There is no hemodynamically significant valve disease. 4. No significant change compared to the prior study from 12/06/20. 5. See remainder of report for additional findings. Findings : Study Quality: Technically limited Left Ventricle: The left ventricular chamber size is normal. Left ventricular wall thickness is normal. There is no evidence of LVOT obstruction. There is normal global left ventricular systolic function. The quantitative left ventricular ejection fraction by biplane Garcia's method is 59%. There are no left ventricular segmental wall motion abnormalities. Doppler assessment is consistent with normal left sided filling pressure. Left Atrium: The left atrium is normal in size. Right Ventricle: The right ventricle is normal in size. Right ventricular global systolic function is normal. Pulmonary artery hypertension could not be assessed due to inadequate tricuspid regurgitation jet. Right Atrium: The right atrium is normal in size. Aortic Valve: The aortic valve is tricuspid. There is no evidence of aortic valve stenosis. There is no evidence of aortic regurgitation. Mitral Valve: The mitral valve leaflets appear normal. Tricuspid Valve: The tricuspid valve leaflets are morphologically normal. There is no evidence of tricuspid valve regurgitation present. Pulmonic Valve: The pulmonic valve is not well visualized. Pericardium: There is no pericardial effusion. Aorta: The aortic root is normal in size. The ascending aorta is normal in size. Pulmonary Artery: The main pulmonary artery is not well visualized. Venous: The inferior vena cava appears normal in size. There is a greater than 50% respiratory change in the inferior vena cava dimension. Misc: Two-dimensional echo, spectral Doppler and color Doppler performed. Definity contrast (one 1.5 ml vial)was used to enhance endocardial definition. Excess contrast was discarded. Chambers 2D Value Units (Range) IVSd (2D) 0.76 cm LVPWd (2D) 0.83 cm IVS:LVPW ratio (2D) 0.92 ratio RWT (2D) 0.34 ratio RWT PW (2D) 0.36 ratio LVIDd (2D) 4.67 cm LVIDs (2D) 2.92 cm LVIDd (2D) index 2.32 cm/m2 LVIDs (2D) index 1.45 cm/m2 LV FS (2D) 37.47 % EF Teichholz (2D) 67.51 % Ao root diameter (2D3 cm (2.1 - 3.6) Ascending Ao 2.4 cm (2 - 3.5) Volumes/Mass Value Units (Range) LA Area 4 CH 10 cm2 (<21) RA AREA 4CH 9 cm2 LA ESV BP (MOD) inde9.05 ml/m2 LV ESV SP 4CH (MOD) 28.1 ml LV ESV SP 2CH (MOD) 32.4 ml LV EDV BP 75.8 ml LV ESV BP 31 ml LV EDV BP index 37.67 ml/m2 LV ESV BP index 15.41 ml/m2 BP EF (MOD) 59.1 % LV mass (2D) 120.36 g LV mass (2D) index 59.82 g/m2 Diastolic/Systolic Function Value Units (Range) MV E-wave Vmax 0.84 m/sec MV deceleration quaj883 msec MV A-wave Vmax 0.53 m/sec MV E:A ratio 1.58 ratio LV septal e' Vmax 0.16 m/sec LV lateral e' Vmax 0.14 m/sec LV average e' Vmax 0.15 m/sec LV E:e' septal ratio5.27 ratio LV E:e' lateral rati6.02 ratio LV average E:e' rati5.62 ratio Aortic Valve Value Units (Range) LVOT diameter 1.8 cm LVOT Vmax 1.08 m/sec LVOT VTI 20.7 cm LVOT peak gradient 5 mmHg LVOT mean gradient 2 mmHg SV LVOT 52.65 ml SV LVOT Index 26 ml/m2 Mitral Valve Value Units (Range) MV PHT 68 msec MVA (PHT) 3.2 cm2 This report has been electronically signed by: Gio Garcia MD 02/20/2021 10:37:38 Images reviewed and interpretation verified [facility] Cardiac Ultrasound Laboratory Tyra Cornejo MD ECHO ORDERABLES documented in this [...] Intravenous, ONCE PRN, 1 dose, Starting on Thu02/20/21 at 1027, Until Thu02/20/21 at 0945, Other, for enhancement of sub-optimal echo images, Echo Lab (Intra-Procedure), Routine Given 02/20/2021 9:45 AM EDT 1.5 mLs documented in this encounter Care Teams Inspector Balance Bridge Relationship Specialty Start Date End Date Charleen Williamson, PERSONALIZED LIVING MANAGER NURSE [address] [place] [address] PCP - General Family Medicine 06/29/20 documented as of this encounter
--- OUTSIDE RECORDS SUMMARY | 2024-05-09 14:03 | XMS_ITS | Encounter Summary ---
Author Organization Formerly [facility], [facility] Address [facility] [place] [address] Care Team Providers Care Power Line Installer And Repairer Name Role Phone Charleen Williamson APRN Primary Care Provider +1 [phone] Reason for Referral * Diagnostic Test (Routine) - Closed Specialty Diagnoses / Procedures Referred By Contac t Referred To Contact Cardiology Diagnoses Malignant 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, estrogen receptor positive Procedures Echocardiogram Transthoracic([facility] or [facility]) Tyra Cornejo MD [facility] [address] [place] [address] [facility] [place] [address] Referral ID Status Reason Start Date Expiration Date V isits Requested Visits Authorized [id number] Closed Specialty Service Requested 02/13/2021 02/13/2022 1 1 Encounter Details Date Type Department Care Team (Late st Contact Info) Description 02/13/2021 Orders Only [place] [address] Tyra Cornejo MD [facility] [place] [address] Malignant neoplasm of central portion of right [...] EDT Office Visit Radiation Oncology at [address] [phone] Eleonora Mensah MD [facility] [place] [address] documented as of this encounter Results * ECHO COMPLETE W CONTRAST (02/20/2021 10:26 AM EDT) EF 59 HEARTLAB SYSTEM Anatomical Region Laterality Modality Other 02/20/2021 Narrative 02/20/2021 10:38 AM EDT Procedure: ?Transthoracic Echocardiogram Patient: ?REYNA FORMAN R ?(Age): 1990(30y) Med Rec#: ? [id number] ?Sex: ?F ? Site Loc: ? [facility] [place]Ht / Wt: ??175.26(cm)/85.2 Pt. Loc: ?Echo Lab ?BSA: ?2.01 Study Date: ?? 02/20/2021 ?Pt. Type: Outpatient Tape: ? Referring: Tyra Cornejo Reading: Gio Garcia ([id number]) Coffee Brewer: Jolly Jo Diagnosis: *Malignant neoplasm of central [...] Vmax ?0.84 ? m/sec ? MV deceleration [id number] ?msec ? MV A-wave Vmax ?0.53 ? [...] 02/20/2021 10:37:38 Images reviewed and interpretation verified [facility] Procedure Note Gio Garcia MD - 02/20/2021 Procedure: Transthoracic Echocardiogram Patient: REYNA Avelar DOB(Age): 1990(30y) Med Rec#: [id number] Sex: F Site Loc: [facility] Ht / Wt: 175.26(cm)/85.2 Pt. Loc: Echo Lab BSA: 2.01 Study Date: 02/20/2021 Pt. 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
--- OUTSIDE RECORDS SUMMARY | 2024-05-09 14:03 | XMS_ITS | Encounter Summary ---
Author Organization [facility] Address [facility] [place] [address] Care Team Providers Care Felled Seam Operator Chainstitch Name Role Phone Charleen Williamson APRN Primary Care Provider +1 [phone] Encounter Details Date Type Department Care Team (Latest Contact Info) Description 02/08/2021 2:41 PM EDT - 02/08/2021 11:59 PM EDT Hospital En[place] [address] Mili Burgos MD [facility] [place] [address] Discharge Disposition: Home Social History Tobacco Use [...] EDT Office Visit Radiation Oncology at [address] [phone] Eleonora Mensah MD [facility] [place] [address] documented as of this encounter Procedures Procedure Name Priority Date/Time Associated Diagnosis Comments MAMMO BREAST PATHOLOGY MASTECTOMY Routine 02/08/2021 2:41 PM EDT documented in this encounter Results * MAMMO BREAST PATHOLOGY MASTECTOMY (02/08/2021 2:41 PM EDT) Narrative Dicom, Auditing User - 02/08/2021 2:41 PM EDT This exam is auto-finalizing. No interpretation was done. Mili Hester MD IMG MAMM O ORDERABLES documented in this encounter Visit Diagnoses Not on filedocumented in this encounter Care Teams Felled Seam Operator Chainstitch Relationship Specialty Start Date End Date Charleen Williamson APRN [address] [place] [address] PCP - General Family Medicine 06/29/20 documented as of this encounter
--- OUTSIDE RECORDS SUMMARY | 2024-05-09 14:03 | XMS_ITS | Encounter Summary ---
Author Organization [facility] [place] [address] Care Team Providers Care Broom Stitcher Name Role Phone Clay, Charleen White APRN Primary Care Provider +1 [phone] Reason for Visit * Auth/Cert Specialty Diagnoses / Procedures Referred By Fawn t Referred To Contact Diagnoses Breast cancer breast cancer Procedures PRO REMOVE ARMPITS LYMPH NODES COMPLT LYMPHADENECTOMY, AXILLARY, COMPLETE (WRVU 13.87) Referral ID Status Reason Start Date Expiration Date Visits Re quested Visits Authorized [id number] 1 1 Encounter Details Date Type Department Care Team (Late st Contact Info) Description 01/28/2021 7:35 AM EDT Anesthesia Event [facility] [address] Ronda Rincon MD [facility] [place] [address] Bull Matamoros MD Anesthesia Record Procedure Summary Procedure Name Responsible Anesthesiologist Anesthesia Start Time Anesthesia Stop Time LYMPHADENECTOMY, AXILLARY, COMPLETE (WRVU 13.87) (Right: Axilla) Ronda Rincon MD 01/28/21 0735 01/28/21 1003 Events Date Time Event Comment 01/28/2021 0723 0734 AN Verify 0735 Start 0735 An Start Data 0741 An Induction 0744 An Intubation 0746 Anesthesia Ready 0955 Extubation/LMA Out 0958 an stop data 1003 Recovery or ICU Handoff Genie ent care was transferred to the destination unit staff after review of the patient's medical history, current anesthetic/surgical status and plan, according to the Provider Handoff Checklist. 1003 Stop Meds Name Total Midazolam 2 mg fentaNYL 100 mcg Propofol 330 mg Propofol INF 1,674.8 mg Dexamethasone 4 mg Ondansetron 8 mg PHENYLephrine 160 mcg ceFAZolin (Ancef) 2 g in dextrose 5% 100 mL infusion 2 g ePHEDrine 20 mg ketorolac (Toradol) (30 mg/mL) injection 30 mg lactated ringers infusion 450 mL * Agents Name O2 Air N2O Sevoflurane (et) * Blood No blood administrations on file. Lines, Drains, and Airways Type Details Placement Removal Incision lower, Right; breast ; horizontal 01/03/21 1328 by (RETIRED) Implanted Port - Single Lumen (non-apheresis) 07/23/20; 0709; 02/13/22; 1440 07/23/20 0709 by Michaela Mcleod RN 02/13/22 1440 by Lora Shahid RN Incision 07/23/20; 0918; Left , lower; neck; non-laparascopic puncture; mediport insertion site ; 12/23/21 (LDA cleanup utility RA#[id number]); 1715 (LDA cleanup utility RA#[id number]) 07/23/20 0918 by Lora Shahid RN 12/23/21 1715 by Jose Alfredo Michaels Incision 07/23/20; 0925; Left , upper; chest; horizontal, non-laparascopic puncture; mediport pocket site ; 12/23/21 (LDA cleanup utility RA#[id number]); 1715 (LDA cleanup utility RA#[id number]) 07/23/20 0925 by Lora Shahid RN 12/23/21 1715 by Jose Alfredo Michaels (RETIRED) Implanted Port - Single Lumen (non-apheresis) 07/23/20; 0941; infraclavicular fossa, left; power injectable port; superior vena cava; Dr. Urbina; Lot #[id number] [address] Port ; 01/28/21; 1127 07/23/20 0941 by Lora Shahid RN 01/28/21 1127 by Trya Washington RN Drain/Device Site 01/03/21; 1444; Righ t; lower; breast; collapsible closed device; not present upon assessment; 02/13/22; 1441 01/03/21 1444 by Barbara Giraldo RN 02/13/22 144 by Lora Shahid RN Supraglottic Mask Ventilation: Ea sy (1); LMA Size: 4; Removal Date: 01/28/21; Removal Time: 95401/28/21 0749 by Zac Tucker MD 01/28/21 0955 by Zac Tucker MD Incision 01/28/21; 0805; Righ t, upper; axilla; horizontal; LDA not present upon assessment; 02/13/22; 14401/28/21 0805 by Dafne Erwin RN 02/13/22 1441 by Lora Shahid RN Drain/Device Site 01/28/21; 09; Righ t; axilla; collapsible closed device; Dr. [place]; 10Fr Flat Drain; LDA not present upon admission; 02/13/22; 1442 01/28/21 0926 by Dafne Erwin RN 02/13/22 1442 by Lora Shahid, RN documented in this encounter Social History Tobacco [...] OR Notes * Anesthesia Postprocedure Evaluation - Zac Tucker - 01/28/2021 10:16 AM EDT Department of Anesthesiology Post-procedure Note Patient: Alis Silva Procedure Summary Date: 01/28/21 Room / Location: [facility] OR [address] [place] [address] [facility] Anesthesia Start: 734 Anesthesia Stop: 1003 Procedure: LYMPHADENECTOMY, AXILLARY, COMPLETE (WRVU 13.87) (Right Axilla) Diagnosis: (breast cancer) Surgeons: Eulalio Hunt MD Responsible Provider: Ronda Rincon MD Anesthesia Type: general ASA Status: 2 All Anesthesia Providers: Anesthesiologist: Ronda Rincon MD Electronic Parts Designer: Zac Tucker MD Vitals Value Taken Time BP 131/81 01/28/21 1003 Temp 36.1 ??C (97 ??F) 01/28/21 1003 Pulse 76 01/28/21 1003 Resp 16 01/28/21 1003 SpO2 98 % 01/28/21 1003 Pain Level Patient Location: PACU/[facility] Level of Consciousness: Awake and Alert Pain Management: Satisfactory Analgesia PONV: None Cardiovascular Status: At Baseline and Hemodynamically Stable Respiratory Status: At Baseline and Room Air Postoperative Fluid Status: Intravascular EUvolemia Possible Anesthetic Complications: NONE apparent at time of evaluation Final Primary Anesthesia Type: General (The anesthetic type performed was the same as planned.) Comments: Zac Tucker MD * Anesthesia Preprocedure Evaluation - Ronda Rincon MD - 01/27/2021 1:42 PM EDT Pre-Anesthesia Evaluation for: Alis Silva a 30 y.o. female. Procedure(s): LYMPHADENECTOMY, AXILLARY, COMPLETE (WRVU 13.87) Patient Active Problem List Diagnosis ??? Malignant neoplasm of right breast in female, estrogen receptor positive 29 yo self-palpated a mass under the right nipple when she noticed it had inverted at the end of May 2020. Dx 06/29/20 [facility] + HER2 + right invasive carcinoma with [...] vaccination planned 08/14 Cycle 1 TCH-P 08/17/20 Fhx: PGM with breast cancer in her 80's; paternal aunt with ovarian ca; 2 brothers without cancer; no cousins with breast or ovarian cancer. menses age 14 to present; no menses while on Depo provera. No past medical history on file. Past Surgical History: Procedure Laterality Date ??? IR MEDIPORT PLACEMENT 07/23/2020 IR Mediport Placement [facility] INTERVENTIONL RAD ??? MAMMO US BIOPSY LYMPH NODE RIGHT Right 06/29/2020 Mammo US Biopsy Lymph Node Right 06/29/2020 Danni Osuna MD [facility] RAD MAMMOGRAPHY ??? MAMMO US BIOPSY RIGHT Right 06/29/2020 Mammo Us Biopsy Right 06/29/2020 Danni Osuna MD [facility] RAD MAMMOGRAPHY ??? MAMMO US NEEDLE LOCALIZATION RIGHT Right 01/03/2021 Mammo US Needle Localization Right 01/03/2021 Mili Burgos MD [facility] RAD MAMMOGRAPHY ??? MRI GUIDED BIOPSY BREAST VACUUM ASSISTED LEFT Left 07/18/2020 MRI Guided Biopsy Breast Vacuum Assisted Left 07/18/2020 [facility] RAD MRI ??? PRO BX/REMV, LYMPH NODE, DEEP AXILL Right 01/03/2021 BIOPSY OR EXCISION OF LYMPH NODE(S), OPEN, DEEP AXILLARY NODE(S) (WRVU 6.43) performed by Eulalio Hunt MD at [facility] MAIN OR ??? PRO EXCISE BREAST LES W XRAY MARKER Right 01/03/2021 EXCISION LESION, BREAST W/ PREOP.MARKER (NEEDLE LOC.) (WRVU 6.69) performed by Eulalio Hunt MDat [facility] MAIN OR ??? PRO INTRAOP SENTINEL LYMPH ID W/DYE INJECTION Right 01/03/2021 INTRAOPERATIVE ID (MAPPING) SENTINEL LYMPH NODE,INCLUDES INJECTION (WRVU 2.5) performed by Eulalio Hunt MD at [facility] MAIN OR ??? PRO MASTECTOMY, SIMPLE, COMPLETE Right 01/03/2021 MASTECTOMY, SIMPLE, COMPLETE (WRVU 15.85) performed by Eulalio Hunt MD at [facility] MAIN OR Social History Tobacco Use ??? Smoking status: Never Smoker ??? Smokeless tobacco: Never Used Substance Use Topics ??? Alcohol use: Not Currently Social History Substance and Sexual Activity Drug Use Never Allergies Allergen Reactions ??? Tegaderm [Transparent Dressings] Use alcohol and betadine, no biopatch. USE DUODERM Medications: MAR and/or home medications have been reviewed. Physical Exam: Preprocedure Vitals Current as of 01/27/21 1342 No BP, pulse, respiration, SpO2, or temperature recorded. Height: Weight: BMI: IBW: Airway Assessment: Mallampati: II TM distance: >3 FB Neck ROM: full Cardiovascular Assessment: system normal Pulmonary Assessment: pulmonary exam normal Dental Assessment: - normal exam Misc Assessment: IV access: Peripheral line Last Filed Perioperative Cognitive Screening None Anesthesia Plan: ASA 2 general, 30 yo f will undergo lymphadenectomy of R axilla. No significant Mhx based on chart review. Underwent mastectomy month ago: Mac 3, Gr1v. Will plan on GA with LMA. Informed Consent: Anesthesia Screening documented in this encounter Plan of Treatment Upcoming Encounters Date Type Department Care Team (Late st Contact Info) Description 02/13/2025 1:00 PM EDT Office Visit Radiation Oncology at [address] [phone] Eleonora Mensah MD [facility] [place] [address] documented as of this encounter Visit Diagnoses Not on filedocumented in this encounter Administered Medications Inactive Administered Medications - up to 3 most recent administrations Medication Order MAR Action Action Date Dose Rate Site ceFAZolin (Ancef) 2 g in dextrose 5% 100 mL infusion 2 g, Intravenous, 30 MIN PRE-OP, 1 dose, On Thu01/28/21 at 0745, Administer over 30 Minutes, Indication for (Active or Suspected): Prophylaxis Given 01/28/2021 7:46 AM EDT 2 g dexamethasone (Decadron) injection Intravenous, PRN, Starting on Thu01/28/21 at 0752, Until Thu01/28/21 at 1003, Anesthesia Intra-op, Routine Given 01/28/2021 7:52 AM EDT 4 mg ePHEDrine sulfate (5 mg/mL) multi-dose injection Intravenous, PRN, Starting on Thu01/28/21 at 0757, Until Thu01/28/21 at 1003, Anesthesia Intra-op, Routine Given 01/28/2021 8:06 AM EDT 10 mg Given 01/28/2021 7:57 AM EDT 10 mg fentaNYL (pf) (50 mcg/mL) multi-dose injection Intravenous, PRN, Starting on Thu01/28/21 at 0752, Until Thu01/28/21 at 1003, Anesthesia Intra-op, Routine Given 01/28/2021 9:33 AM EDT 50 mcg Given 01/28/2021 8:55 AM EDT 25 mcg Given 01/28/2021 7:52 AM EDT 25 mcg ketorolac (Toradol) (30 mg/mL) injection Intravenous, PRN, Starting on Thu01/28/21 at 0934, Until Thu01/28/21 at 1003, Anesthesia Intra-op, Routine Given 01/28/2021 9:34 AM EDT 30 mg lactated ringers infusion 1,000 mL, at 100 mL/hr, Intravenous, CONTINUOUS, Starting on Thu01/28/21 at 0645, Until Thu01/28/21 at 1129, Day of Surgery (Day of Procedure) New Bag 01/28/2021 7:35 AM EDT midazolam (pf) (Versed) (1 mg/mL) multi-dose injection Intravenous, PRN, Starting on Thu01/28/21 at 0734, Until Thu01/28/21 at 1003, Anesthesia Intra-op, Routine Given 01/28/2021 7:34 AM EDT 2 mg ondansetron (pf) (Zofran) (2 mg/mL) injection Intravenous, PRN, Starting on Thu01/28/21 at 0752, Until Thu01/28/21 at 1003, Anesthesia Intra-op, Routine Given 01/28/2021 9:43 AM EDT 4 mg Given 01/28/2021 7:52 AM EDT 4 mg PHENYLephrine in NS (PF) (NIKO-SYNEPHRINE) 0.8 mg/10 mL (80 mcg/mL) multi-dose injection Syrg Intravenous, PRN, Starting on Thu01/28/21 at 0758, Until Thu01/28/21 at 1003, Anesthesia Intra-op, Routine Given 01/28/2021 8:07 AM EDT 80 mcg Given 01/28/2021 7:58 AM EDT 80 mcg propofoL (Diprivan) 10 mg/mL bolus injection (Anesthesia) Intravenous, PRN, Starting on Thu01/28/21 at 0741, Until Thu01/28/21 at 1003, Anesthesia Intra-op Given 01/28/2021 9:46 AM EDT 20 mg Given 01/28/2021 9:43 AM EDT 10 mg Given 01/28/2021 9:42 AM EDT 30 mg propofoL (Diprivan) infusion Intravenous, CONTINUOUS PRN, Starting on Thu01/28/21 at 0741, Until Thu01/28/21 at 1003, Anesthesia Intra-op, Routine Rate/Dose Change 01/28/2021 9:32 AM EDT 150 mcg/kg/min 76.32 mL/hr Rate/Dose Change 01/28/2021 8:55 AM EDT 175 mcg/kg/min 89. 04 mL/hr Rate/Dose Change 01/28/2021 8:34 AM EDT 150 mcg/kg/min 76. 32 mL/hr documented in this encounter Care Teams Broom Stitcher Relationship Specialty Start Date End Date Charleen Williamson APRN [address] [place] [address] PCP - General Family Medicine 06/29/20 documented as of this encounter
--- OUTSIDE RECORDS SUMMARY | 2024-05-09 14:03 | XMS_ITS | Encounter Summary ---
Author Organization [facility] [place] [address] Care Team Providers Care Library Supervisor Name Role Phone Charleen Williamson APRN Primary Care Provider +1 [phone] Encounter Details Date Type Department Care Team (Late st Contact Info) Description 04/14/2021 Telephone [place] [phone] Eleonora Mensah MD [facility] [place] [address] Social History Tobacco Use Types Packs/Day Years [...] Telephone Encounter - Eleonora Mensah MD - 04/14/2021 2:47 PM EST Phone call to discuss timing of tomorrow's appointment, no answer, left VM. documented in this encounter Plan of Treatment Upcoming Encounters Date Type Department Care Team (Late st Contact Info) Description 02/13/2025 1:00 PM EDT Office Visit Radiation Oncology at [address] [address] Eleonora Mensah MD [facility] [place] [address] documented as of this encounter Visit Diagnoses Diagnosis Malignant neoplasm of upper-outer quadrant of right female breast, unspecified estrogen receptor status documented in this encounter Care Teams Library Supervisor Relationship Specialty Start Date End Date Charleen Williamson APRN [address] [place] [address] PCP - General Family Medicine 06/29/20 documented as of this encounter
--- OUTSIDE RECORDS SUMMARY | 2024-05-09 14:03 | XMS_ITS | Encounter Summary ---
[place] [address] Care Team Providers Care Machine Clothing Man Name Role Phone Charleen Williamson APRN Primary Care Provider +1 [phone] Encounter Details Date Type Department Care Team (Late st Contact Info) Description 02/19/2021 [place] [phone] Brianna Collier Social History Tobacco Use Types Packs/Day Years Used Date Smoking Tobacco: Never Smokeless Tobacco: Never Alcohol Use Standard Drinks/Week Comments Not Currently 0 (1 standard drink = 0.6 oz pur e alcohol) Overall Financial Resource Strain (CARDIA) Diogo r Date Recorded How hard is it [...] encounter Miscellaneous Notes * Telephone Encounter - Brianna Collier - 02/19/2021 2:13 PM EDT Returned call from voicemail message. All questions answered. Patient scheduled. documented in this encounter Plan of Treatment Upcoming Encounters Date Type Department Care Team (Late st Contact Info) Description 02/13/2025 1:00 PM EDT Office Visit Radiation Oncology at [address] [phone] Eleonora Mensah MD [facility] [place] [address] documented as of this encounter Visit Diagnoses Not on filedocumented in this encounter Care Teams Machine Clothing Man Relationship Specialty Start Date End Date Charleen Williamson, ALL AROUND PATTERNMAKER [address] [place] [address] PCP - General Family Medicine 06/29/20 documented as of this encounter
--- OUTSIDE RECORDS SUMMARY | 2024-05-09 14:03 | XMS_ITS | Encounter Summary ---
Author Organization [facility] Address [facility] [place] [address] Care Team Providers Care Hospital Corpsman Name Role Phone Charleen Williamson APRN Primary Care Provider [phone] [phone] Reason for Visit * Reason Comments On Treatment Visit Encounter Details Date Type Department Care Team (Late st Contact Info) Description 04/23/2021 4:15 PM EST Office Visit Radiation Oncology at [address] [phone] Eleonora Mensah MD [facility] [address] Hormone receptor positive malignant neoplasm [...] Progress Notes * Eleonora Mensah MD - 04/23/2021 4:15 PM EST Images from the original note were not included. DIAGNOSIS: 30 y/o premenopausal female w/premenopausal femail w/central breast ca, R, invasive ca w/ductal & lobular features, gr 2, ER+MN+, Her2+, cT3 cN1, s/p neoadjuvant TCHP, followed by R mastectomy w/NLOC excision clipped R axillary lymph node, unsuccessful SNB, ypT1b(m) ypN1mi, +LVI. Randomized on [id number] to ax dissxn, removing 13 lymph nodes, all neg. Xrt off protocol. Adjuvant TDM-1 concomitant w/xrt. Cabrera after xrt completion. ?? CURRENT TREATMENT DOSE: 4 Gy R supraclav, R axilla, R chest wall ANTICIPATED TOTAL DOSE: 50 Gy R supraclav, R axilla, R chest wall; 60 Gy mastectomy scar Current # of xrt received: 2 Anticipated total # of xrt txs: 30 Evaluation of port verification films: Approved. For details, see electronic film record in [employer]. Changes in Medical Condition: B shoulder pain when on xrt tx table w/arms up. Pain?: See above. Your Medications Accurate as of April 23, 2021 4:33 PM. If you have any questions, ask your nurse or doctor. Continued medications, unchanged Dose Details acetaminophen 500 mg Tab Commonly known as: Tylenol Take 2 tablets by mouth every 6 hours. 1,000 mg Quantity: 30 tablet Refills: 1 chlorhexidine 0.12 % Mwsh Commonly known as: Peridex Take 15 mLs by mouth 2 times daily. 15 mL Quantity: 120 mL Refills: 0 dexamethasone 2 mg Tab Commonly [...] Refills: 0 Miscellaneous Medical Supply Misc by [facility].(Non-Drug; Combo Route) route. Remedy Phytoplex Moisturizer. [...] mg Quantity: 90 tablet Refills: 3 Physical Exam: 187 lbs 99.1 F 87 16 SpO2 98% A&Ox3, NAD. Amb stable. Imagin03/19/21 Dx'ic Rad Interp CTsim: No suspicious lesion. Performance Status: KPS 100% Response to xrt: As expected. Irradiation Related Symptoms: None. Treatment for Symptom Control: Phytoplex cream for irrad'd area. Pain Management: Advised 2 tylenol (reg/extra strength) half hr prior to xrt. Recommendation on Continuing Course of xrt: Continue. documented in this encounter Plan of Treatment Upcoming Encounters Date Type Department Care Team (Late st Contact Info) Description 02/13/2025 1:00 PM EDT Office Visit Radiation Oncology at [address] [phone] Eleonora Mensah MD [facility] [place] [address] documented as of this encounter Visit Diagnoses Diagnosis Hormone receptor positive malignant neoplasm of right breast documented in this encounter Care Teams Hospital Corpsman Relationship Specialty Start Date End Date Charleen Williamson APRN [address] [place] [address] PCP - General Family Medicine 06/29/20 documented as of this encounter
--- OUTSIDE RECORDS SUMMARY | 2024-05-09 14:04 | XMS_ITS | Encounter Summary ---
[place] [address] Care Team Providers Care Electrical Appliance Preparer Name Role Phone Charleen Williamson APRN Primary Care Provider [phone] Reason for Visit * Reason Onset Date Comments Follow-up 11/30/2020 multiple issues Encounter Details Date Type Department Care Team (Late st Contact Info) Description 11/30/2020 Telephone [place]ology [place] [phone] Subha Holt RN Follow-up (multiple issues) Social History Tobacco Use Types Packs/Day Years Used Date Smoking Tobacco: Never Smokeless Tobacco: Never Overall Financial Resource Strain (CARDIA) Answe r [...] Telephone Encounter - Subha Holt RN - 11/30/2020 12:19 PM EDT Images from the original note were not included. Message received from line tender: Danni Ryan [facility] Hem Onc Triage Breast Good morning, Alis called with multiple issues this morning, and would like a call back [phone] to discuss, please! *has anal tear, Dr. Cornejo suggested yesterday that she apply Desitin. However, she had to quickly wipe it all off, as she felt like the skin was burning, as her skin is too sensitive. She wonders if she can use petroleum jelly instead? *she doesn't remember whether she mentioned to Dr. Cornejo that just about the anal tear, she has a small grape sized hard, painful lump/bump. She said it only hurts when she touches it, and shecan see it in the mirror. *she's wondering if she is ok to make dentist and eye appointments, routine, or if she should hold off a bit longer. *finally, wondering how long she should keep using the magic mouthwash. She said that she never actually got mouth sores, was using preventatively. Could you please give her a call [phone] to advise on all of the above? Call placed to patient. Noticed tear a couple of rounds of chemo ago. Noticed lump a week and a half ago. Above the tear. Painful when touched. Painful with BM sometimes. Tyra Cornejo MD Andrews, Patricia A, RN She should try sitz baths once or twice daily, 6-8 inches of warm water in a tub, either with or without epsom salts. Avoid inserting anything into the anus, but vaseline or petroleum around the areais ok. Can also try calendula cream for babies ([employer] product) Call placed to patient and left. [employer] message sent. documented in this encounter Plan of Treatment Upcoming Encounters Date Type Department Care Team (Late st Contact Info) Description 02/13/2025 1:00 PM EDT Office Visit Radiation Oncology at [address] [phone] Eleonora Mensah MD [facility] [place] [address] documented as of this encounter Visit Diagnoses Not on filedocumented in this encounter Care Teams Electrical Appliance Preparer Relationship Specialty Start Date End Date Charleen Williamson APRN [address] [place] [address] PCP - General Family Medicine 06/29/20 documented as of this encounter
--- OUTSIDE RECORDS SUMMARY | 2024-05-09 14:04 | XMS_ITS | Encounter Summary ---
Author Organization [facility] Address [facility] [place] [address] Care Team Providers Care Food Services Coordinator Name Role Phone Charleen Williamson APRN Primary Care Provider [phone] Reason for Visit * Treatment/Therapy Plan Authorization (Routine) - Closed Specialty Diagnoses / Procedures Referred By Contac t Referred To Contact Diagnoses 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, estrogen receptor positive Procedures TC PEGFILGRASTIM, 6MG, INJECTION TC APREPITANT, 1 MG, INJECTION TC PALONOSETRON HCL, 25MCG, INJECTION (ALOXI) TC PACLITAXEL, 1MG, INJ TC PERTUZUMAB, 1 MG, INJECTION TC CARBOPLATIN, 50MG, INJECTION (PARAPLATIN) [id number] Romie (Trastuzumab-anns) Tyra Cornejo MD [facility] [address] HEMATOLOGY [place] [address] [facility] Hem Onc [address] [place] [address] Referral ID Status Reason Start Date Expiration Date Visits Re quested Visits Authorized [id number] Closed 07/20/2020 07/20/2021 99 99 Encounter Details Date Type Department Care Team (Latest Contact Info) Description 11/29/2020 8:38 AM EDT - 11/29/2020 11:59 PM EDT Hospital Encounter Hematology [place] [address] Malignant neoplasm of overlapping sites [...] Sig Dispensed Refills Start Date End Date omeprazole (PriLOSEC) [address] capsule Take [...] EVERY 8 HOURS NEEDED FOR ANXIETY 07/09/2020 dexamethasone (DECADRON) 2 mg Tablet Take 2 [...] (chemotherapy induced nausea). 30 tablet 11/13/2020 07/03/2021 mupirocin (BACTROBAN) 2 % Ointment 0.1 g by Nasal route 2 times daily. Use one-half of tube in each nostril twice daily for five (5) days. After application, press sides of nose together and gently massage. 10 g 10/23/2020 12/19/2020 omeprazole (PriLOSEC) 20 mg Capsule, Delayed Release(E.C.) Take 20 mg by mouth daily. 12/19/2020 sertraline (Zoloft) 50 mg Tablet TAKE 1 TABLET BY MOUTH DAILY 08/08/2020 12/19/2020 loratadine (Claritin) 10 mg Tablet Take 10 mg by mouth daily. 11/15/2021 prochlorperazine (Compazine) 10 mg Tablet Take 1 tablet by mouth every 6 hours as needed for Nausea. 15 tablet 3 07/20/2020 12/07/2020 lidocaine-prilocaine (EMLA) Cream Apply topically 60 minutes prior to accessing port. Apply a thick layer of cream to designated site of intact skin. Cover site with occlusive dressing. 30 g 1 07/20/2020 09/11/2021 lactobacillus rhamnosus, GG, (CULTURELLE) 10 billion cell Capsule Take 1 capsule by mouth daily. 02/15/2024 traZODone (Desyrel) 50 mg Tablet Take 1 tablet by mouth nightly. My take up to three nightly for sleep. 90 tablet 3 07/18/2020 12/20/2020 documented as of this encounter Progress Notes * Kymberly Harris RN - 11/29/2020 4:24 PM EDT Patient Name: Alis Silva Patient Age: 30 y.o. Birthdate: 1990 Admit date: 11/29/2020 Attending Physician: No att. providers found Alis Silva, 30 y.o. female with diagnosis of Breast Cancer is here for chemotherapy infusion of T-CHP, Zoladex injection, and application of OnPro. PROTOCOL: N/A CYCLE: 6 DAY: 1 S: Pt. offers no complaints at this time. Reviewed plan of care for infusion visit, patient verbalized understanding of plan as outlined. O: Chemotherapy orders independently verified for correct drug name, route and dosage per patient'sheight, weight and BSA by Kymberly Harris RN, RN and onsite pharmacist. Chemotherapy administered [...] EDT Office Visit Radiation Oncology at [address] [phone] Eleonroa Mensah MD [facility] [place] [address] documented as of this encounter Visit Diagnoses Diagnosis 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, estrogen receptor positive documented in this encounter Administered Medications Inactive Administered Medications - up to 3 most recent administrations Medication Order MAR Action Action Date Dose Rate Site aprepitant (CINVANTI) injection Emul 130 mg 130 mg, Intravenous, Administer over 2 Minutes, ONCE, 1 dose, On Alannah 11/29/20 at 1100, Alternative administration of IV push over 2 minutes is a recommendation from the battalion fire chief. Administer prior to chemotherapy., Routine Given 11/29/2020 12:02 PM EDT 130 mg CARBOplatin (Paraplatin) 600 mg in dextrose 5% 310 mL infusion 600 mg (Target AUC = 4), Intravenous, ONCE, 1 dose, On Alannah 11/29/20 at 1400, Administer over 30 Minutes, Warning Vesicant/Irritant Medication New Bag 11/29/2020 3:19 PM EDT 600 mg 620 mL/hr dexamethasone (PF) (Decadron) (10 mg/mL) injection 10 mg 10 mg, Intravenous, ONCE, 1 dose, On Alannah 11/29/20 at 1100, Administer 60 minutes prior to DOCEtaxel Given 11/29/2020 12:02 PM EDT 10 mg diphenhydrAMINE (Benadryl) capsule 50 mg 50 mg, Oral, ONCE, 1 dose, On Alannah 11/29/20 at 1100, Administer 60 minutes prior to DOCEtaxel, Routine Given 11/29/2020 12:01 PM EDT 50 mg DOCEtaxeL (Taxotere) 120 mg in sodium chloride 0.9% Non-PVC 256 mL infusion 120 mg, Intravenous, ONCE, 1 dose, On Alannah 11/29/20 at 1300, Administer over 60 Minutes, Warning Vesicant/Irritant Medication Dose Ordered = 122 mg (60 mg/m2). Pharmacist rounded dose per procedure. New Bag 11/29/2020 2:08 PM EDT 120 mg 256 mL/hr famotidine (Pepcid) (10 mg/mL) injection 20 mg 20 mg, Intravenous, ONCE, 1 dose, On Alannah 11/29/20 at 1100, Administer 60 minutes prior to DOCEtaxel Given 11/29/2020 12:02 PM EDT 20 mg goserelin (ZOLADEX) implant 3.6 mg 3.6 mg, Subcutaneous, ONCE, 1 dose, On Alannah 11/29/20 at 1100, Routine, This agent is restricted to outpatient use. Is this drug being given as an outpatient? Yes Given 11/29/2020 4:09 PM EDT 3.6 mg Right Lower Quadrant heparin (pf) (porcine) (100 units/mL) flush 5 mL syringe 500 Units 500 Units, Intravenous, ONCE PRN, Starting on Alannah 11/29/20 at 1036, Until Thu11/30/20 at 0436, Line Care, Refer to Intravenous (IV) Procedure: Accessing Implanted Vascular Access Devices (914) procedure and/or Intravenous (IV) Job Aid: Adult Flushing & Catheter Care (8578) job aid for additional information regarding guidelines and administration., Routine Given 11/29/2020 3:57 PM EDT 500 Units lidocaine (Xylocaine) 1% (10 mg/mL) injection 10 mg 10 mg (1 mL), Subcutaneous, ONCE, 1 dose, On Alannah 11/29/20 at 1100, Order either Ice or lidocaine for the injection. Inject up to 3 mL, Routine Given 11/29/2020 4:09 PM EDT 10 mg Right Lower Quadrant palonosetron (Aloxi) (0.05 mg/mL) injection 0.25 mg 0.25 mg, Intravenous, ONCE, 1 dose, On Alannah 11/29/20 at 1100, Administer over 30 seconds., Routine Given 11/29/2020 12:02 PM EDT 0.25 mg pegfilgrastim (Neulasta Onpro) (6 mg/0.6 mL) injection kit 6 mg 6 mg, Subcutaneous, ONCE, 1 dose, On Alannah 11/29/20 at 1100, Allow the prefilled syringe co-packaged with the on-body injector to reach room temperature at least 30 minutes prior to administration. , Routine, This agent is restricted to outpatient use. Is this drug being given as an outpatient? Yes Given 11/29/2020 4:02 PM EDT 6 mg Right Arm pertuzumab (Perjeta) 420 mg in sodium chloride 0.9% 264 mL infusion 420 mg, Intravenous, ONCE, 1 dose, On Alannah 11/29/20 at 1200, Administer over 30 Minutes, This agent is restricted to outpatient use. Is this drug being given as an outpatient? Yes New Bag 11/29/2020 12:15 PM EDT 420 mg 528 mL/hr TRASTuzumab-anns (Kanjinti) 510 mg in sodium chloride 0.9% 274.31 mL infusion 510 mg (rounded from 513 mg = 6 mg/kg/dose ? 85.5 kg Treatment plan Recorded weight), Intravenous, ONCE, 1 dose, On Alannah 11/29/20 at 1230, Administer over 30 Minutes, Incompatible in D5W, This agent is restricted to outpatient use. Is this drug being given as an outpatient? Yes New Bag 11/29/2020 1:22 PM EDT 510 mg 548.6 mL/hr documented in this encounter Care Teams Food Services Coordinator Relationship Specialty Start Date End Date Charleen Williamson APRN [address] [place] [address] PCP - General Family Medicine 06/29/20 documented as of this encounter
--- OUTSIDE RECORDS SUMMARY | 2024-05-09 14:04 | XMS_ITS | Encounter Summary ---
[place] [address] Care Team Providers Care Therapist Physical Name Role Phone Charleen Williamson APRN Primary Care Provider [phone] Reason for Visit * Reason Onset Date Comments Diarrhea 12/11/2020 Encounter Details Date Type Department Care Team (Late st Contact Info) Description 12/11/2020 Telephone Hematology [place] [phone] Subha Holt RN Diarrhea Social History Tobacco Use Types Packs/Day Years [...] Telephone Encounter - Subha Holt RN - 12/11/2020 7:54 AM EDT Tyra Cornejo MD Sent: Iram December 09, 2020 ??3:14 PM To: Karen Trevizo, Cc: Barbara Cain PA; Subha Holt RN Thank you Flaco It is also a common side effect of pertuzumab. Her chemo doses were reduced for the last cycle fortunately so I hope this resolves from here. Ill copy Barbara Cain and Bea oHlt to check in with her tomorrow to make sure she is hydrating well. May also benefit from metamucil or citrucel to bulkup her stools. Call placed to patient to follow up on diarrhea. Better today. 2-3 loose stools by 1500. Took the metamucil this morning to bulk stool and had a nutritional shake. Vomited that up. Does not currentlyhave nausea. Today has had 3 imodium. Last loose stool 3 hours ago. No atropine today. Afebrile. Noimprovement of appetite. Eating 2/3 usual diet. Food in general is not appealing, no specific foods. Egg sandwich stayed down for lunch. Some abdominal pain this morning after taking metamucil. Feelslike it might be the metamucil that made her throw up. Bumpy tongue is worse today. Makes it harder to eat. Taking in about 32 oz bottle of water and 2 gator aids. Discussed the need to push fluids. Suggested trying to add in jello, pop cicles, soups to help boost her fluid intake. She will monitor and call with any new or worsening s/s, new fever, vomiting that does not mello, more than 5-6 loose stools. No follow up needed by RN at this time. documented in this encounter Plan of Treatment Upcoming Encounters Date Type Department Care Team (Late st Contact Info) Description 02/13/2025 1:00 PM EDT Office Visit Radiation Oncology at [address] [phone] Eleonora Mensah MD [facility] [place] [address] documented as of this encounter Visit Diagnoses Not on filedocumented in this encounter Care Teams Therapist Physical Relationship Specialty Start Date End Date Charleen Williamson APRN [address] [place] [address] PCP - General Family Medicine 3/5/21 documented as of this encounter
--- OUTSIDE RECORDS SUMMARY | 2024-05-09 14:04 | XMS_ITS | Encounter Summary ---
Author Organization [facility] Address [facility] [place] [address] Care Team Providers Care Second Chef Name Role Phone Charleen Williamson APRN Primary Care Provider [phone] [phone] Reason for Visit * Auth/Cert Specialty Diagnoses / Procedures Referred By Fawn t Referred To Contact Diagnoses Breast cancer BREAST CANCER Procedures PRO MASTECTOMY, SIMPLE, COMPLETE PRO BX/REMV, LYMPH NODE, DEEP AXILL PRO INTRAOP SENTINEL LYMPH ID W/DYE INJECTION PRO EXCISE BREAST LES W XRAY MARKER MASTECTOMY, SIMPLE, COMPLETE (WRVU 15.85) BIOPSY OR EXCISION OF LYMPH NODE(S), OPEN, DEEP AXILLARY NODE(S) (WRVU 6.43) INTRAOPERATIVE ID (MAPPING) SENTINEL LYMPH NODE,INCLUDES INJECTION (WRVU 2.5) EXCISION LESION, BREAST W/ PREOP.MARKER (NEEDLE LOC.) (WRVU 6.69) MODIFIER WITH NEEDLE LOC., LESION #1 MODIFIER SENTINEL NODE EXCISION Referral ID Status Reason Start Date Expiration Date Visits Re quested Visits Authorized [id number] 1 1 Encounter Details Date Type Department Care Team (Latest Contact Info) Description 01/03/2021 9:16 AM EDT - 01/03/2021 10:46 AM EDT Hospital [place] [phone] Eulalio Hunt MD [facility] [address] Malignant neoplasm of right breast in female, [...] 11/15/2021 dexamethasone (Decadron) 4 mg Tablet 01/02/202104/30 oxyCODONE (Roxicodone) 5 mg Tablet Take 1 [...] as of this encounter Progress Notes * Segun Munoz - 01/02/2021 1:30 PM EDT Pre-procedure note for needle breast biopsies performed in radiology. Procedure date: Tomorrow Procedure type: right breast NLOC and sentinel node injection Allergies: Tegaderm [transparent dressings] Medications: Current Outpatient Medications: ??? traZODone (Desyrel) 50 mg Tablet, Take 3 tablets by mouth nightly., Disp: 90 tablet, Rfl: 3 ??? omeprazole (PriLOSEC) 40 mg Capsule, Delayed Release(E.C.), Take 40 mg by mouth daily., Disp: ,Rfl: ??? sertraline (ZOLOFT) 100 mg Tablet, Take 200 mg by mouth daily., Disp: , Rfl: ??? prochlorperazine (Compazine) 10 mg Tablet, Take 1 tablet by mouth every 6 hours as needed for Nausea., Disp: 15 tablet, Rfl: 0 ??? dexamethasone (DECADRON) 2 mg Tablet, Take 2 tablets 2-3 days after chemotherapy, then take 1 tablet for 1-3 more days, stop when nausea resolves., Disp: 6 tablet, Rfl: 0 ??? chlorhexidine (PERIDEX) 0.12 % Mouthwash, Take 15 mLs by mouth 2 times daily., Disp: 120 mL, Rfl: 0 ??? LORazepam (Ativan) 0.5 mg Tablet, Take 1 tablet by mouth every 6 hours as needed (chemotherapy induced nausea)., Disp: 30 tablet, Rfl: 0 ??? propranoloL (Inderal) 20 mg Tablet, Take 20 mg by mouth 2 times daily., Disp: , Rfl: ??? ondansetron ODT (Zofran-ODT) 4 mg Tablet, Rapid Dissolve, Take 4 mg by mouth as needed., Disp: , Rfl: ??? loratadine (Claritin) 10 mg Tablet, Take 10 mg by mouth daily., Disp: , Rfl: ??? lidocaine-prilocaine (EMLA) Cream, Apply topically 60 minutes prior to accessing port. Apply a thick layer of cream to designated site of intact skin. Cover site with occlusive dressing., Disp: 30 g, Rfl: 1 ??? lactobacillus rhamnosus, GG, (CULTURELLE) 10 billion cell Capsule, Take 1 capsule by mouth daily., Disp: , Rfl: ??? melatonin 5 mg Tablet, Take by mouth nightly., Disp: , Rfl: ??? hydrOXYzine (Atarax) 10 mg Tablet, TAKE 1 TO 2 TABLETS BY MOUTH EVERY 8 HOURS NEEDED FOR ANXIETY, Disp: , Rfl: Anticoagulation status: none stopped on: N/A Imaging reviewed and procedural plan approved by Dr. Segun Munoz MD documented in this encounter Plan of Treatment Upcoming Encounters Date Type Department Care Team (Late st Contact Info) Description 02/13/2025 1:00 PM EDT Office Visit Radiation Oncology at [address] [phone] Eleonora Mensah MD [facility] [place] [address] documented as of this encounter Procedures Procedure Name Priority Date/Time Associated Diagnosis Comments MAMMO US NEEDLE LOCALIZATION RIGHT Routine 01/03/2021 10:17 AM EDT Malignant neoplasm of right breast in female, estrogen receptor positive, unspecified site of breast documented in this encounter Results * Mammo US Needle Localization Right (01/03/2021 10:17 AM EDT) Anatomical Region Laterality Modality Breast Right Mammography Impressions 01/03/2021 10:27 AM EDT Status post ultrasound-guided needle localization and confirmation of appropriate positioning. Status post sentinel lymph node injection without follow-up imaging. The radiotracer injection was administered under the supervision of authorized user Dr. Brent Mason. Thank you for letting us participate in the care of this patient. ??If you are a health care provider and have any questions regarding this report, please contact the number below. ??For patients who have questions please contact the health caregivers non medical that requested your imaging first. ? Electronically signed by: Mili Whalen MD, [facility] ([phone]), at 01/03/2021 10:27 AM Narrative 01/03/2021 10:27 AM EDT ULTRASOUND GUIDED NEEDLE LOCALIZATION OF ??right axillary lymph node CLINICAL HISTORY: PLEASE NEEDLE LOCALIZE RIGHT BREAST CANCER AXILLA NODE TECHNIQUE:Informed consent was confirmed and a timeout procedure was performed per protocol. Using sterile technique and local anesthetic (less than 5 cc's of 1% lidocaine) a needle localization of the biopsy-proven metastatic lymph node in the right axilla was performed using ultrasound guidance. The needle was positioned through the mass. After confirming satisfactory positioning of the needle the wire was deployed and a sonographic image was obtained. This image confirms the wire traverses the lesion and the tip of the wire is 1 cm beyond the lesion. A sentinel node injection was performed using 0.2 mCi of Tc-99m sulfur colloid. One third was injected into the dermis and 2/3 was injected in the parenchyma. Half the dose was injected subcutaneously and half injected intradermally. No additional imaging was performed. There were no complications. Images were annotated on PACS for the operating surgeon. Procedural attestation: Resident: Dr. Segun Mann I performed the procedure with the resident observing. Eulalio Hunt MD IMG MAMMO ORDERABLES documented in this encounter Visit Diagnoses Diagnosis Malignant neoplasm of right breast in female, estrogen receptor positive, unspecified site of breast documented in this encounter Administered Medications Inactive Administered Medications - up to 3 most recent administrations Medication Order MAR Action Action Date Dose Rate Site lidocaine (Xylocaine) 1% (10 mg/mL) injection 10 mg 10 mg, Intradermal, ONCE, 1 dose, On Alannah 01/03/21 at 1000, Routine Given 01/03/2021 10:00 AM EDT 10 mg documented in this encounter Care Teams Second Chef Relationship Specialty Start Date End Date Charleen Williamson APRN [address] [place] [address] PCP - General Family Medicine 06/29/20 documented as of this encounter
--- OUTSIDE RECORDS SUMMARY | 2024-05-09 14:04 | XMS_ITS | Encounter Summary ---
Author Organization [facility] Address [facility] [place] [address] Care Team Providers Care Beam Carrier Hauler Pusher Name Role Phone Charleen Williamson APRN Primary Care Provider [phone] Reason for Referral * Consultation (Routine) - Closed Specialty Diagnoses / Procedures Referred By Contac t Referred To Contact Diagnoses Malignant neoplasm of upper-outer quadrant of right female breast, unspecified estrogen receptor status Eleonora Mensah MD [facility] [place] [address] Ed [place] [address] Referral ID Status Reason Start Date Expiration Date V isits Requested Visits Authorized [id number] Closed Consult, Test & Treat 01/21/2021 01/21/2022 1 1 * Consultation (Routine) - Closed Specialty Diagnoses / Procedures Referred By Contac t Referred To Contact Radiation Oncology Diagnoses Malignant neoplasm of upper-outer quadrant of right female breast, unspecified estrogen receptor status Procedures Simulation for Radiation Therapy Planning Eleonora Mensah MD [facility] [place] [address] [facility] Rad Onc Office [address] [place] [phone] Referral ID Status Reason Start Date Expiration Date V isits Requested Visits Authorized [id number] Closed Consult, Test & Treat 01/21/2021 01/21/2022 33 33 Reason for Visit * Reason Comments Radiation Consult Encounter Details Date Type Department Care Team (Late st Contact Info) Description 01/21/2021 11:00 AM EDT Office Visit Radiation Oncology at [address] [phone] Eleonora Mensah MD [facility] [place] [address] Malignant neoplasm of upper-outer quadrant of right female breast, unspecified estrogen receptor status; Malignant neoplasm of central portion of right [...] Sign Reading Time Taken Comments Blood Pressure 125/80 01/21/2021 10:38 AM EDT Pulse 98 01/21/2021 10:38 AM EDT Temperature 37.3 ??C (99.1 ??F) 01/21/2021 10:38 AM E DT Respiratory Rate 20 01/21/2021 10:38 AM EDT Oxygen Saturation 98% 01/21/2021 10:38 AM EDT Inhaled Oxygen Concentration - - Weight 84.9 kg (187 lb 3.2 oz) 01/21/2021 10:38 AM EDT Height - - Body Mass Index 27.82 12/19/2020 8:45 AM EDT documented in this encounter Patient Instructions * Patient Instructions* Eleonora Mensah MD - 01/21/2021 11:00 AM EDT Someone will call you to schedule CTsimulation for T., 02/05/21 @ earliest. If surgery is to be done on underarm, someone will call you to schedule CTsimulation to be done 3 weeks after surgery @ earliest. Someone will call you to schedule consultation with [facility], which you can decline/accept. I will ask Dr. Cornejo about zoladex. documented in this encounter Progress Notes * Gretta Burk RN - 01/21/2021 11:00 AM EDT RADIATION ONCOLOGY NURSING INITIAL NURSING ASSESSMENT IDENTIFICATION: Alis Silva is a 30 y.o. year-old female with right breast cancer. ER+ [place]+ Her2 marcos positive. PRESENTING SYMPTOMS/CHIEF COMPLAINT: Self palpated mass which led to work up and diagnosis. REVIEW OF SYSTEMS: Review of Systems Constitutional: Positive for appetite change and fatigue (improving post chemo). Respiratory: Negative for cough and shortness of breath. Cardiovascular: Negative for chest pain. Gastrointestinal: Positive for rectal pain (occ blood on tissue when wiping. discomfort 4/10 with BM only). Negative for blood in stool, constipation, diarrhea, nausea and vomiting. Genitourinary: Negative for dysuria. Musculoskeletal: Positive for back pain (history of back pain chronic). Negative for gait problem. Neurological: Negative for dizziness, gait problem and light-headedness. IN THE PAST 12 MONTHS HAVE YOU: Fallen more than one time? No Injured yourself as result of the fall? N/a Experienced difficulty with walking/problems with balance? No Do you use any assistive devices? No Any history of collagen vascular diseases: No Any Implanted Devices/Hardware: No Mediport, breast clip If yes please put alert in ARIA patient summary Prior Radiotherapy: No Prior Chemotherapy: Last chemo done November 29, 2020 Prior Hormone Therapy: Just during egg harvest. LEARNING ASSESSMENT REVIEWED: yes ADVANCED DIRECTIVE: not discussed this encounter. PAIN ASSESSMENT: 0 out of 10 *eD-H Adult PCS Flow Sheet if 4 or above SOCIAL ASSESSMENT: See ED social assessment information entered. Support Systems: Elmer and family. Barriers to treatment: None identified by patient. Finances have been a concern and she is happy that she can receive treatment in [facility] rather than [facility]. Referrals/Interventions: PLANTING MATERIAL UNLOADER per routine to follow. RADIATION SPECIFIC TEACHING: [facility] Radiation Therapy and You Site specific teaching : Breast teaching to be done by nursing on day of simulation. Other: PLAN: Per Dr. Mensah * Eleonora Mensah MD - 01/21/2021 11:00 AM EDT Images from the original note were not included. CC: Referred by Shea Williamson APRN, for eval for xrt for breast ca. HPI: Alis is a 30 y/o f who presented after noticing a R breast mass beneath areola. [facility] 06/28/20 dx'ic B mmg & R breast US: R breast retroareolar mass w/assoc'd microcalcs. 06/29/20 R axillary US: Morphologically abnl 0.8 cm nonenlarged R axillary lymph node. 06/29/20 US guided core needle bxs R axillary node & R breast. Path: A - R axillary node: Lymph node w/met ca, ER+[place]+, Her2 FISH+. B - R breast: Invasive ca w/ductal & lobular features. 07/04/20 bone scan: No skeletal met. 07/11/20 CT c/a/p: 1. Right breast mass. Morphologically suspicious subcentimeter right axillary lymph node. 2. No metastatic disease in the abdomen or pelvis. ?? 07/11/20 Dr. Hunt, exam showing 8 x 5 cm erythema around R areola; erythema assoc'd w/pitting edema; 5 x 4 cm mass underneath R areola; areolar skin immobile over mass; mass mobile on chest wall; no adenopathy. 07/11/20 MRI B breasts: Right breast: Dominant retroareolar mass with contiguous nonmass enhancement extending to a second mass in the right upper outer quadrant suggestive of a satellite lesion with intervening DCIS. There is overlying skin thickening and distortion. Known right axillary node metastasis is visualized. L breast w/6 mm mass w/plateau kinetics. 07/23/20 genetic testing: One pathogenic MUTYH mutation. 07/18/20 MRI guided core needle bxs L breast. Path: Benign. 10/23/20 CXR: No acute C-P findings. 11/29/20 completed TCHP x 6, w/egg preservation. 12/14/20 MRI B breasts: Partial response of dominant known malignancy in the right retroareolar region. Complete imaging response of lesion in the right upper outer quadrant. No adenopathy. 12/19/20 Dr. Hunt, exam showed 3 cm R breast mass @ 9:00, 2 cm from nipple w/8 x 5 cm erythema assoc'd w/skin edema, centered on nipple, no adenopathy. 12/26/20 Breast Tumor Bd: Options Discussed: mastectomy + axillary dissection vs targeted node excision + SLN. Recommendations: Radiation Oncology consult reasonable to avoid axillary dissection and proceed with targeted node excision + SLN. 01/03/21 R mastectomy, R axillary NLOC node excision & excision of additional R axillary mary tissue w/specimen mmg, SNB attempted, but no appreciable radioactivity/blue nodes, no palpable adenopathy. 1 drain placed in inferior flap. Path: A - Targeted lymph node, excision: Residual met ca in 1 lymph node (04/27). Met deposit 1 mm, no PARI. B - R axillary lower mary tissue, excision: Benign, no mary tissue identified. C - R breast: Residual invasive ca w/ductal & lobular features; gr 2, tumor site central (nipple); partial path response. Treated tumor bed retroareolar, measuring 13.0 cm. +LVI, including dermalLVI. RM-. DISCUSSION A 13.0 cm mass was grossly identified in the retroareolar region of the right breast. ??Microscopic sections taken from this area show residual invasive carcinoma within ??a treated tumor bed ?? consisting of fibrosis, stromal edema, chronic inflammation, foamy macrophages, and stromal calcifications. A size of residual invasive carcinoma ??is difficult to determine. While residual invasive carcinoma spans the majority of ??sections taken from the 13.0 cm gross mass, the tumor is present as single cells ??and small tumor nests with large intervening areas of fibrosis without tumor. The ??largest microscopic measurement on a single slide is 1.0 cm. The residual tumor is ??likely best staged as ypT1b(m) ypN1mi pMX. Compared to the tumor cellularity in the pre-treatment core biopsy [id number]) ??estimated therapeutic response in the breast is 75-85%. 01/16/21 Breast Tumor Bd: Clinical stage prior to NAC was cT3N1. Rec Rad Onc consult, discuss enrollment on [id number], consider [id number] after surg/xrt. 01/16/21 Dr. Hunt, demonstrated ROM exercises, to start in a few days, consent for [place] trial [id number] signed Subjective: Healing well. No pain. No hand/arm swelling. ROM arms around shoulders ok. Energy levelok. History reviewed. No pertinent past medical history. No lupus/scleroderma. No prior xrt. Past Surgical History: Procedure Laterality Date ??? IR MEDIPORT PLACEMENT 07/23/2020 IR Mediport Placement [facility] INTERVENTIONL RAD ??? MAMMO US BIOPSY LYMPH NODE RIGHT Right 06/29/2020 Mammo US Biopsy Lymph Node Right 06/29/2020 Danni Osuna MD [facility] RAD MAMMOGRAPHY ??? MAMMO US BIOPSY RIGHT Right 06/29/2020 Mammo Us Biopsy Right 06/29/2020 Danni Osuna MD [facility] RAD MAMMOGRAPHY ??? MAMMO US NEEDLE LOCALIZATION RIGHT Right 01/03/2021 Mammo US Needle Localization Right 01/03/2021 Mili Burgos MD [facility] RAD MAMMOGRAPHY ??? MRI GUIDED BIOPSY BREAST VACUUM ASSISTED LEFT Left 07/18/2020 MRI Guided Biopsy Breast Vacuum Assisted Left 07/18/2020 [facility] RAD MRI ??? PRO BX/REMV, LYMPH NODE, DEEP AXILL Right 01/03/2021 BIOPSY OR EXCISION OF LYMPH NODE(S), OPEN, DEEP AXILLARY NODE(S) (WRVU 6.43) performed by Eulalio Hunt MD at [facility] MAIN OR ??? PRO EXCISE BREAST LES W XRAY MARKER Right 01/03/2021 EXCISION LESION, BREAST W/ PREOP.MARKER (NEEDLE LOC.) (WRVU 6.69) performed by Eulalio Hunt MDat [facility] MAIN OR ??? PRO INTRAOP SENTINEL LYMPH ID W/DYE INJECTION Right 01/03/2021 INTRAOPERATIVE ID (MAPPING) SENTINEL LYMPH NODE,INCLUDES INJECTION (WRVU 2.5) performed by Eulalio Hunt MD at [facility] MAIN OR ??? PRO MASTECTOMY, SIMPLE, COMPLETE Right 01/03/2021 MASTECTOMY, SIMPLE, COMPLETE (WRVU 15.85) performed by Eulalio Hunt MD at [facility] MAIN OR Oral surgery Your Medications Accurate as of January 21, 2021 11:59 PM. If you have any questions, ask your nurse or doctor. Continued medications, unchanged Dose Details chlorhexidine 0.12 % Mwsh Commonly known as: [...] 0 lactobacillus rhamnosus (GG) 10 billion cell Cap [...] Tab Take by mouth nightly. Refills: 0 NAC 600 mg Tab Take [...] 150 mg Quantity: 90 tablet Refills: 3 FHx: + ca, breast in pat grmo, ovarian in pat aunt. Physical Exam Constitutional: General: She is not in acute distress. Comments: BP 125/80 (Patient Position: Sitting) Pulse 98 Temp 37.3 ??C (99.1 ??F) (Temporal) Resp 20 Wt 84.9 kg (187 lb 3.2 oz) SpO2 98% BMI 27.82 kg/m?? HENT: Head: Normocephalic. Eyes: General: No scleral icterus. Right eye: No discharge. Left eye: No discharge. Extraocular Movements: Extraocular movements intact. Conjunctiva/sclera: Conjunctivae normal. Pulmonary: Effort: Pulmonary effort is normal. No respiratory distress. Breath sounds: No stridor. Comments: R mastectomy scar healing well. Drain site scar R midaxillary line, 5 cm from mastectomy scar. No visible/palpable ca on R chest wall. [...] of motion and neck supple. No tenderness. Right lower leg: No edema. Left lower leg: No edema. Lymphadenopathy: Head: Right side of head: No [...] Thought content normal. Judgment: Judgment normal. A: Young, premenopausal femail w/central breast ca, R, invasive ca w/ductal & lobular features,gr 2, ER+[place]+, Her2+, cT3 cN1, s/p neoadjuvant TCHP, followed by R mastectomy w/NLOC excision clipped R axillary lymph node, unsuccessful SNB, ypT1b(m) ypN1mi, +LVI. P: We discussed xrt as per [place] [id number] protocol. Xrt would be directed to R chest wall & draining lymphatics & given in 30 fxs. Possible side effects of xrt discussed, w/acute/immediate side effects including: Pinkening, soreness & peeling of skin in treated area; swelling of treated area; soreness of treated area; cough;shortness of breath; sore throat; sense of fullness in throat; swelling of R hand/arm, which could be permanent; numbness, tingling, weakness & difficulty coordinating R hand/arm; tiredness. To decrease risk of lymphedema, she was instructed to avoid bp measurement on R upper extremity, avoid needle sticks on R upper extremity, avoid lifting heavy objects with R upper extremity & to contact her physician if upper extremity turns pink or starts to swell. 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 Need for CTsim prior to xrt discussed. She underwent urine test today for [id number] & will await randomization to axillary dissection vs axillary xrt. CTsim 02/05/21, which likely be rescheduled if she is randomized to axillary dissection. She voiced some indecision about proceeding on [id number] trial, as she may prefer axillary dissection, given that it is the more established treatment regimen, & was agreeable to referral to [facility] for assistance if needed. She asked if zoladex will be continued & I will check w/Dr. Cornejo. Radiation reid:Post mastectomy Radiation boost:Yes Total dose of radiation: 60 Gy 80 mins in encounter. documented in this encounter Plan of Treatment Upcoming Encounters Date Type Department Care Team (Late st Contact Info) Description 02/13/2025 1:00 PM EDT Office Visit Radiation Oncology at [address] [phone] Eleonora Mensah MD [facility] [place] [address] Scheduled Orders Name Type Priority Associated Diagnoses Orde r Schedule Simulation for Radiation Therapy Planning Procedures Routine Malignant neoplasm of upper-outer quadrant of right female breast, unspecified estrogen receptor status Ordered: 01/21/2021 Scheduled Referrals Name Type Priority Associated Diagnoses Orde r Schedule Referral to [facility] Outpatient Referral Routine Malignant neoplasm of upper-outer quadrant of right female breast, unspecified estrogen receptor status Ordered: 01/21/2021 documented as of this encounter Visit Diagnoses Diagnosis Malignant neoplasm of upper-outer quadrant of right female breast, unspecified estrogen receptor status Malignant neoplasm of central portion of right female breast, unspecified estrogen receptor status documented in this encounter Care Teams Beam Carrier Hauler Pusher Relationship Specialty Start Date End Date Charleen Williamson APRN [address] [place] [address] PCP - General Family Medicine 06/29/20 documented as of this encounter
--- OUTSIDE RECORDS SUMMARY | 2024-05-09 14:04 | XMS_ITS | Encounter Summary ---
Author Organization [facility] Address [facility] [place] [address] Care Team Providers Care Data Reviewer Name Role Phone Charleen Williamson APRN Primary Care Provider [phone] Reason for Visit * Auth/Cert Specialty Diagnoses [...] Expiration Date Visits Re quested Visits Authorized [id number] 1 1 Encounter Details Date Type Department Care Team (Late st Contact Info) Description 01/03/2021 12:00 PM EDT - 01/03/2021 2:45 PM EDT [place] [phone] Eulalio Hunt MD [facility] [place] [address] MASTECTOMY, SIMPLE, COMPLETE (WRVU 15) Social History Tobacco Use Types Packs/Day Years [...] Sign Reading Time Taken Comments Blood Pressure 150/83 01/03/2021 11:01 AM EDT Pulse 85 01/03/2021 11:01 AM EDT Temperature 36.8 ??C (98.2 ??F) 01/03/2021 11:01 AM E DT Respiratory Rate 16 01/03/2021 11:01 AM EDT Oxygen Saturation 97% 01/03/2021 11:01 AM EDT Inhaled Oxygen Concentration - - Weight - - Height - - Body Mass Index - - documented in this encounter Discharge Instructions * Discharge Instructions* Bk Winston MD - 01/03/2021 2:54 PM EDT Images from the original note were not included. DRAIN CARE INSTRUCTIONS Drains help to keep fluid from collecting by removing the extra blood and fluid from under the skinor from an abscess within the body. A drain is temporary. It stays in place until the drainage has slowed down or stopped. You should call the clinic to schedule an appointment to have the drain removed when the output is less than 30mL over a 24hr period. Please call in 10 days if the drain output remains greater than 30mL daily. Inspect the skin around the insertion site [...] the drainage amount in the chart provided below. Contact your physician if: ??? There is a significant change in drainage amount or color. ??? If the tube becomes dislodged. ??? If you notice signs of infection (see above). What problems may I have with my [...] the dressing clean and dry. How to empty the bulb of a Cedric-Mitchell drain Follow any instructions your doctor gives you. How often you empty the bulb depends on how much fluid is draining. Empty the bulb when it is half full. 1. Wash your hands with soap and water. 2. Take the plug out of the bulb. 3. Empty the bulb. If your doctor asks you to measure the fluid, empty the fluid into a measuring cup, and write down the color and how much you collected. Your doctor will want to know this information. 4. Clean the plug with alcohol. 5. Squeeze the bulb until it is flat. This removes all the air from the bulb. You may need to put the bulb on a table or a counter to flatten it. 6. Keep the bulb flat, and put the plug in. The bulb should stay flat after you put the plug back in. This creates the suction that pulls the fluid into the bulb. 7. Empty the fluid into the toilet. 8. Wash your hands. How to change the dressing around your surgical drain You may have a dressing (bandage). The dressing is often made of gauze pads held on with tape. You should change the dressing daily, or more frequently if necessary. 1. Wash your hands with soap and water. 2. Take off the dressing from around the drain. 3. Clean the drain site and the skin around it with soap and water. Use gauze or a cotton swab. 4. When the site is dry, put on a new dressing. The way your dressing is put on depends on what kind of drain you have. You will get instructions for your type of drain. 5. Wash your hands again with soap and water. Your doctor may ask you to keep track of your dressing changes. Write down the time of day and the amount and color of the fluid on the dressing. How to help prevent clogs in your surgical drain Squeezing or milking the tube of your surgical drain can help prevent clogs so that it drains correctly. Your doctor will tell you when you need to do this. In general, you do this when: ?? You see a clot in the tube that prevents fluid from draining. The clot may look like a dark, stringy lining. ?? You see fluid leaking around the tube where it goes into the skin. Follow these steps for milking the tube. 1. Use one hand to hold and pinch the tube where it leaves the skin. 2. With the thumb and first finger of your other hand, pinch the tube just below where you're holding it. 3. Slowly and firmly push your thumb and first finger down the tubing toward the end of the tube. 4. Repeat this as many times as needed to move the clot. If you have a Cedric-Mitchell (MARSHA) drain, the clot should move down the tube and into the bulb. If you have a Quincy drain, the clot should move into the dressing. Cedric-Mitchell Drainage Record NAME: Date of Surgery: Date: Time: If more than one drain, which one: Drainage Amount (per drain) Total Amount (per drain; in 24 hours) * Patient Instructions* Bk Winston MD - 01/03/2021 12:14 PM EDT Instructions following Breast Surgery Wound Care: Keep dressing on incision for the next 5 days, then you may remove and leave open to air. You may shower tomorrow morning with the Tegaderm covering the site. Do not scrub area [...] 101.3 F. The number for questions is [phone] before 5 PM week. Pain Medication: Please use ibuprofen (motrin, advil) 600 mg three times per day with food and tylenol 650 mg every 8 hours between the ibuprofen doses. If you still have significant pain after taking ibuprofen and tylenol, then use the opioid that was prescribed for you. No driving for 8 hours after any dose of opioid pain medication if one was prescribed for you. Follow-up: Follow-up appointment will be scheduled with in 1-2 weeks. Scheduled Appointments: The following appointment with Dr. Hunt has been scheduled on your behalf: Future Appointments Date Time Provider Department Center 01/14/2021 9:00 AM Ame Beard PT PT Rehab [facility] 01/16/2021 4:00 PM Eulalio Hunt MD [facility] [place]G [facility] Please call [phone] (clinic number) if any changes need to be made to your appointment time. documented in this encounter Medications at Time [...] as of this encounter Progress Notes * Magdalena Todd RN - 01/03/2021 7:15 PM EDT AVS reviewed with patient and patients by previous RN. Patient meets discharge criteria at this time. Patient discharged home with . DENISE Nichols * Jamila Mcclellan RN - 01/03/2021 6:24 PM EDT Patient alert and oriented, vital signs stable. Reviewed discharge instructions; patient and mingo verbalized understanding. Copy of instruction sheet with contact numbers for questions/concerns with _pt and mark_. Pain assessment documented. documented in this encounter H&P Notes * Eulalio Hunt MD - 01/03/2021 12:06 PM EDT I examined this patient today and she is marked and is ready for surgery Right mastectomy and sentinel node and targeted node removal for breast cancer documented in this encounter Miscellaneous Notes * Op Note - Eulalio Hunt MD - 01/03/2021 12:56 PM EDT [facility] [place] Operative Note Patient Name: Alis Silva : [id number] MR#: [id number] Case Date: 01/03/2021 Surgeon: Surgeon(s) and Role: * Eulalio Hunt MD - Primary * Bk Winston MD - Resident Preoperative diagnosis: BREAST CANCER Postoperative diagnosis: BREAST CANCER Procedure(s) (LRB): MASTECTOMY, SIMPLE, COMPLETE (WRVU 15.85) (Right) BIOPSY OR EXCISION OF LYMPH NODE(S), OPEN, DEEP AXILLARY NODE(S) (WRVU 6.43) (Right) INTRAOPERATIVE ID (MAPPING) SENTINEL LYMPH NODE,INCLUDES INJECTION (WRVU 2.5) (Right) EXCISION LESION, BREAST W/ PREOP.MARKER (NEEDLE LOC.) (WRVU 6.69) (Right) MODIFIER WITH NEEDLE LOC., LESION #1 (Right) MODIFIER SENTINEL NODE EXCISION (Right) Anesthesia: General Estimated Blood Loss: 100 mL Specimens removed during surgery: right breast; right axillary wire localized node; additional right axillary mary tissue. Drains: Drain/Device Site 01/03/21 1444 Right lower breast collapsible closed device (Active) Surgical Closure: Primary Closure - skin incision is completely closed without any wires, lilly, drains or other devices Indications for surgery: Alis Silva is a 30-year-old woman who presented with an extensive cancer in her right breast. She had some erythema over the central portion of her breast but it was not greater than a third of the breast skin to satisfy the criteria for inflammatory breast cancer. 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 We decided to proceed with a mastectomy. She also had a suspicious right axillary lymph node on ultrasound preoperatively and core biopsy that was positive for cancer. So we wire localized that node. The wire was placed in a node that was the only node that was visible in the right axilla. The clip was not in any node; it was about 5 mm away from that node. Details of the operation: I used the gamma probe and was not able to detect a peak of radioactivityin the right axilla despite the technetium having been injected several hours before surgery. I injected 3 mL of methylene blue dye in the right breast at the upper outer areolar border and massaged that. We then anesthetized the skin and made the inferior mastectomy incision and just the medial half ofthe upper arm of the mastectomy incision. We did not make the whole incision to give the blue dye and Tc more time to travel to the lymph nodes. We placed 2-0 silk sutures for retraction. I then created a thin skin flap inferiorly to past the inferior mammary fold, tapering it down to the chest wall. We also created a skin flap to the right edge of the sternum. At this point we then finished the incision in the skin on the superior lateral portion of the ellipse. We therefore gave the blue dye and the technetium another 30 to 45 minutes to get to the axilla. We then made this incision and placed a few more retraction sutures then we created this superior skin flap. We then removed all the breast tissue including the fascia from the pectoralis major muscle. When we got up into the axilla I flicked the wire into the wound and then actually divided the lower axillary tissue at least 3 cm cranial to where the wire was going into the lower axillary tissue. I used right angles and clamped and then cut and then we tied with several right angles to help prevent lymphatic leakage. In this way the breast and the targeted lymph node were removed. I then trimmed some tissue that was around the wire off the axillary edge of the specimen so that Icould create a specimen to be imaged for the targeted node. There was no appreciable radioactivity or blue nodes in that specimen. A specimen mammogram was done and it showed that the node that was targeted was removed but there was no clip in the specimen. I therefore removed some of the additional superior lateral tissue from the mastectomy specimen and got a mammogram of that and there was no clip seen in that either. I had a discussion with Radiologist Dr. Rivera about this. It was clear that the node that we removed was the only node that was seen in the axilla on pre-op US and it was v lisha close to the clip and it was therefore the node that needed to be removed and I removed that node. I was not going to blindly try to take out more no more mary tissue in an attempt to get the clip since our real goal was the node that the clip was marking and we had clearly taken that out. I used the gamma probe and the remaining radioactivity in the axilla had a maximal count of 2. There were no blue lymphatic channels and there were no blue nodes that I could envision in the axilla. I consider doing a completion axillary dissection but decided that that really was not going to change how this patient was going to be cared for with adjuvant treatments since its extremely likely she will be getting postmastectomy chest wall and axillary radiation therapy and additional Her-2 targeted and hormone systemic therapy. Therefore I did not proceed with an axillary dissection. There were certainly no palpable or enlarged nodes in the axilla. We then made sure he had perfect hemostasis. I irrigated. I then did a pec block I. I injected 10 mL of lidocaine Marcaine solution underneath the fascia of the serratus lateral to the pectoralis major and pectoralis minor muscles. Then placed a 10 [place] [employer] Cedric-Mitchell drain through a stab wound in the inferior inferior flap and sutured that in place. We then placed 3-0 Vicryl sutures in the deep dermis and 3-0 Monocryl suturesto close the skin. The drain was placed to suction and suction held. At first it did not hold and Ihad a place two 4-0 nylon sutures in the skin but after I did that the suction held well. Gauze and IV 3000 plastic dressings were placed. Infection Bundle used? N/A Attestation: Case Date: 01/03/2021 I was present and I participated during the entire procedure (does not need to include opening and closing). EULALIO HUNT MD 01/03/2021 documented in this encounter Plan of Treatment Upcoming Encounters Date Type Department Care Team (Late st Contact Info) Description 02/13/2025 1:00 PM EDT Office Visit Radiation Oncology at [address] [phone] Eleonora Mensah MD [facility] [place] [address] documented as of this encounter Procedures Procedure Name Priority Date/Time Associated Diagnosis Comments SPECIMEN TO PATHOLOGY Routine 01/03/2021 2:31 PM EDT SPECIMEN TO PATHOLOGY Routine 01/03/2021 2:09 PM EDT SPECIMEN TO PATHOLOGY Routine 01/03/2021 2:02 PM EDT SURGICAL PATHOLOGY REPORT Routine 01/03/2021 2:00 PM EDT MODIFIER SENTINEL NODE EXCISION 01/03/2021 12:33 PM EDT BREAST CANCER MODIFIER WITH NEEDLE LOC., LESION #1 01/03/2021 12:33 PM EDT BREAST CANCER Excise Breast Les W Xray Marker ([id number]) 01/03/2021 12:33 PM EDT BREAST CANCER Intraop [place] Lymph Id W/Dye Injection ([id number]) 01/03/2021 12:33 PM EDT BREAST CANCER Bx/Remv, Lymph Node, Deep Axill ([id number]) 01/03/2021 12:33 PM EDT BREAST CANCER Mastectomy, Simple, Complete ([id number]) 01/03/2021 12:33 PM EDT BREAST CANCER POCT GLUCOSE Routine 01/03/2021 11:36 AM EDT documented in this encounter Results * Specimen to Pathology (01/03/2021 2:31 PM EDT) AP Specimen 01/03/2021 2:31 PM EDT 01/03/2021 2:[address] [facility] - 01/03/2021 2:31 PM EDT Specimen requisition ordered. ??Separate Pathology report to follow Eulalio Hunt MD PATHOLOGY/CYTOLOGY O ROGELIO Performing Organization Address [facility] [place] [address] * Specimen to Pathology (01/03/2021 2:09 PM EDT) AP Specimen 01/03/2021 2:09 PM EDT 01/03/2021 2:[address] [facility] - 01/03/2021 2:09 PM EDT Specimen requisition ordered. ??Separate Pathology report to follow Eulalio Hunt MD PATHOLOGY/CYTOLOGY O ROGELIO Performing Organization Address [facility]/ZIP Co de Phone Number [facility] [place] [address] * Specimen to Pathology (01/03/2021 2:02 PM EDT) AP Specimen 01/03/2021 2:02 PM EDT 01/03/2021 2:[address] [facility] - 01/03/2021 2:02 PM EDT Specimen requisition ordered. ??Separate Pathology report to follow Eulalio Hunt MD PATHOLOGY/CYTOLOGY O ROGELIO [facility] [place] [address] * Surgical Pathology Report (01/03/2021 2:00 PM EDT) Final Diagnosis [id number] ? Location: [facility]; [facility]; A The signing pathologist has (i) examined the relevant preparation(s) for the specimen(s) and (ii) rendered or confirmed the diagnosis(es). . ?Surgical Pathology DIAGNOSIS A - Targeted lymph node, excision: ??- Residual metastatic carcinoma present in one lymph node (04/27). ?- Metastatic deposit: 1 mm in size, no extranodal extension. ?- Background fibrosis and treatment effect present. B - Right axillary lower mary tissue, excision: ??- Benign breast tissue, no mary tissue identified. C - Right breast, mastectomy, post neoadjuvant therapy: ??- Residual invasive carcinoma with ductal and lobular ?features; partial pathologic response (see Synoptic Report ?and Discussion). ??- Treated tumor bed, retroareolar, measuring 13.0 cm. ??- Lymphovascular invasion, including dermal lymphovascular ?invasion present. ??- Epidermis uninvolved by tumor. ??- Biopsy site changes present. Electronically signed by: ?Annel Michaels DO Verified: ??01/15/2021 12:54 ??Pathologist Performed at: ??-[facility] Dept. of Pathology, [place], [place] SYNOPTIC Specimen ? Procedure: ??Total mastectomy ? Specimen Laterality: ??Right Tumor ? Tumor Site: ??Central; ??Nipple ? 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 Glandular (Acinar) / Tubular Differentiation: ??Score 3 ? Nuclear Pleomorphism: ??Score 2 ? Mitotic Rate: ??Score 1 ? Overall Grade: ??Grade 2 (scores of 6 or 7) ? Tumor Size: ??Size of largest invasive focus cannot be determined - see ?Discussion ? Ductal Carcinoma In Situ (DCIS): ??Not identified ? Lobular Carcinoma In Situ (LCIS): ??Not identified ? Tumor Extent ?Skin Invasion: ??Invasive carcinoma directly invades into the dermis ? or epidermis without skin ulceration (this does not change the T ? classification) ? Lymphovascular Invasion: ??Present ? Dermal Lymphovascular Invasion: ??Present ? Microcalcification s: ??Present in non-neoplastic tissue ? Treatment Effect in the Breast: ??Probable or definite response to presurgical ?therapy in the invasive carcinoma ? Treatment Effect in the Lymph Nodes: ??Probable or definite response to ?presurgical therapy in metastatic carcinoma Margins ? Invasive Carcinoma Margins: ??Uninvolved by invasive carcinoma ?Distance from Closest Margin (Millimeters): ??Greater than 10 mm ?Closest Margin(s): ??Anterior; ??Posterior Lymph Nodes . SYNOPTIC ? Regional Lymph Nodes: ??Involved by tumor cells ?Number of Lymph Nodes with Macrometastases (> 2 mm): ??0 ?Number of Lymph Nodes with Micrometastases (> 0.2 mm to 2 mm and / or > ? 200 cells): ??1 ?Number of Lymph Nodes with Isolated Tumor Cells (<= 0.2 mm or <= 200 ? cells): ??0 ?Size of Largest Metastatic Deposit (Millimeters): ??1 mm ?Extranodal Extension: ??Not identified ?Total Number of Lymph Nodes Examined: ??1 Pathologic Stage Classification (pTNM, AJCC 8th Edition) ? TNM Descriptors: ??y (post-treatment) ? Primary Tumor (pT): ??pTX ? Regional Lymph Nodes (pN): ??pN1mi Tumor Block(s): ??C8, C21 CAP eCC May 2019 Annual Release ER, MD, and HER2 studies (performed on prior biopsy, [id number]): ER: Positive (70-80%, moderate to strong) MD: Positive (1-10%, weak) HER2 FISH: Positive (HER2/CEP-17 ratio = 12.7) DISCUSSION A 13.0 cm mass was grossly identified in the retroareolar region of the right breast. Microscopic sections taken from this area show residual invasive carcinoma within a treated tumor bed ?? consisting of fibrosis, stromal edema, chronic inflammation, foamy macrophages, and stromal calcifications. A size of residual invasive carcinoma is difficult to determine. While residual invasive carcinoma spans the majority of sections taken from the 13.0 cm gross mass, the tumor is present as single cells and small tumor nests with large intervening areas of fibrosis without tumor. The largest microscopic measurement on a single slide is 1.0 cm. The residual tumor is likely best staged as ypT1b(m) ypN1mi pMX. Compared to the tumor cellularity in the pre-treatment core biopsy [id number]) estimated therapeutic response in the breast is 75-85%. SPECIMEN(S) SUBMITTED A - Targeted node, excision (1) B - Right axillary lower mary tissue, excision (1) C - Right breast, excision (1) CLINICAL INFORMATION Breast cancer SPECIMEN PROCESSING A - Labeled/Fixative: Right axillary targeted node, fresh. Quantity/Size: Single, 5.3 x 4.0 x 1.0 cm. Tissue Description: Adipose tissue with six potential lymph nodes, up to 2.3 x 1.2 x 1.0 cm. Sections/Processin g: [employer]ing [employer] sections in 8 cassettes as follows: ?A1: ??Two lymph nodes; in toto ?A2: ??One candidate lymph node; serially sectioned and entirely submitted ?A3: ??One lymph node; in toto ?A4-A5: ??One lymph node; serially sectioned and entirely submitted ?A6-A8: ??One lymph node; serially sectioned and entirely submitted B - Labeled/Fixative: Right axillary lower mary tissue, fresh. Quantity/Size: Single, 10.5 x 5.5 x 2.0 cm. Tissue Description: Adipose tissue with three lymph nodes, up to 1.2 x 0.7 x 0.5 cm. . SPECIMEN PROCESSING Sections/Processin g: Motor[employer]ing [employer] sections in 8 cassettes as follows: ?B1-B2: ??One lymph node; serially sectioned and entirely submitted ?B3-B7: ??One lymph node; serially sectioned and entirely submitted ?B8: ??One lymph node; in toto C - Labeled/Fixative: Right breast, fresh. Quantity/Size/Weig ht: Single, M-L 24.0 cm; S-I 23.5 cm; A-P 6.0 cm, 1600 g. SPECIMEN DESCRIPTION Resection Specimen: Intact, right, simple mastectomy. Orientation: Long stitch lateral; short stitch cranial. Skin: 24.0 x 13.5 cm, unremarkable. Nipple: 0.6 cm diameter, inverted. Deep Margin: Smooth, no irregularities. LESION ??Description: 13.0 x 5.0 x 1.0 cm, salazar-pink, rubbery mass, Retroareolar, with ill- defined borders. ??Location: Retroareolar. ??Clip: Identified. ??Margins: 5.2 cm the posterior margin; 1.5 cm to skin; 1.0 cm to anterior margin. OTHER Parenchyma: Yellow, 85% fibrous tissue; 15% fatty tissue. Ink Designation: Posterior margin inked black. Anterior margin inked blue. Sections/Processin g: Motor[employer] Commanding [employer] sections in 28 cassettes as follows: ?C1: ??Nipple ?C2: ??Skin underneath nipple ?C3-C10: ??Clip and tumor bed, sections from posterior to skin margin. Mid ? retroareolar. ?C11-C15: ??From superior to inferior tumor bed; field representatives director sections ?C16-C18: ??From superior to inferior tumor bed; mid to inferior ?C19-C20: ??Medial to clip; field representatives director section ?C21-C23: ??Lateral to clip; field representatives director sections ?C24-C28: ??Upper outer quadrant; field representatives director sections Ischemic Time: 2.1 hours, Case presented to Dr. Salas. ??njrs 01/15/2021 12:[address] [facility] BREAST STRUCTURE / Unknown 01/03/2021 2:00 PM EDT 01/03/2021 2:00 PM EDT Axillary Contents 01/03/2021 2:00 PM EDT 01/03/2021 2:00 PM EDT BREAST STRUCTURE / Unknown 01/03/2021 2:00 PM EDT 01/03/2021 2:00 PM EDT Eulalio Hunt MD PATHOLOGY/CYTOLOGY Aldo [address] [facility] [place] [address] * POCT Glucose (01/03/2021 11:36 AM EDT) Glucose, POC 104 65 - 199 mg/dL [facility] Comment: Supplemental ranges: <140 mg/dL before meals <180 mg/dL all other times of the day Blood 01/03/2021 11:3 6 AM EDT 01/03/2021 11:36 AM EDT Eulalio Hunt MD POINT OF CARE TEST O RDERABLES [facility] [place] [address] documented in this encounter Visit Diagnoses Not on filedocumented in this encounter Administered Medications Inactive Administered Medications - up to 3 most recent administrations Medication Order MAR Action Action Date Dose Rate Site BUpivacaine (pf) (Marcaine) (5 mg/mL) 0.5% injection ONCE PRN, Starting on [place] 01/03/21 at 1430, Until [place] 01/03/21 at 2116, Intra-Operative (Intra-Procedure), Routine Given 01/03/2021 2:30 PM EDT 10 mLs 19- Surgical Site HYDROmorphone (Dilaudid) (0.2 mg/1 mL) injection syringe 0.2 mg 0.2 mg, Intravenous, EVERY 10 MIN PRN, Starting on [place] 01/03/21 at 1509, Until [place] 01/03/21 at 1736, Pain, For Mild to Moderate Pain (1-5 out of 10), Hold for respiratory rate less than 10 per minute. Maximum dose 3 mg over one hour including administrations in the OR. If multiple pain medications are ordered, start with HYDROmorphone or morphine and use fentaNYL for breakthrough pain, PACU Recovery, Routine Given 01/03/2021 5:27 PM EDT 0.2 mg Given 01/03/2021 4:49 PM EDT 0.2 mg lactated ringers infusion 1,000 mL, at 100 mL/hr, Intravenous, CONTINUOUS, Starting on Alannah 01/03/21 at 1130, Until Alannah 01/03/21 at 1736, Day of Surgery (Day of Procedure) New Bag 01/03/2021 12:32 PM EDT New Bag 01/03/2021 11:31 AM EDT 1,000 mLs 100 mL/hr lidocaine (pf) (Xylocaine) (10 mg/mL) 1% injection ONCE PRN, Starting on Alannah 01/03/21 at 1430, Until Alannah 01/03/21 at 2116, Intra-Operative (Intra-Procedure), Routine Given 01/03/2021 2:30 PM EDT 10 mLs 19- Surgical Site methylene blue (Provayblue) (5 mg/mL) injection ONCE PRN, Starting on Alannah 01/03/21 at 1256, Until Alannah 01/03/21 at 2116, Intra-Operative (Intra-Procedure) Given 01/03/2021 12:56 PM EDT 3 mLs 19- Surgical Site oxyCODONE (Roxicodone) tablet 5 mg 5 mg, Oral, EVERY 4 HOURS PRN, Starting on Alannah 01/03/21 at 1713, Until Alannah 01/03/21 at 2116, Pain, Routine Given 01/03/2021 6:16 PM EDT 5 mg documented in this encounter Active and Recently Administered Medications Times are shown in EDT. Scheduled Medication Order 01/01/2021 01/02/2021 01/03/2021 ceFAZolin (Ancef) 2 g in dextrose 5% 100 mL (2 x 1 g/50 mL premix bags) infusion (COMPLETED) 2 g, Intravenous, EVERY 3 HOURS, 1 dose, First dose on Alannah 01/03/21 at 1130, Administer over 30 Minutes, Total dose of ceFAZolin 2 grams, administered using two ceFAZolin 1g/50mL IV bags. Infuse each ceFAZolin 1g/50mL bag over 30 minutes (100 ml/hr) for total infusion time of 60 minutes. On the MAR, document administration of first bag using New Bag (1 of 2) MAR action for dose of 1g. On the MAR, document administration of second bag using Next Bag (2 of 2) MAR action for dose of 1g (resulting in total dose of 2g)., Intra-Operative (Intra-Procedure), Indication for (Active or Suspected): Prophylaxis 1247 (Given - Provid er: Terry Moctezuma MD) Continuous Medication Order 01/01/2021 01/02/2021 01/03/2021 lactated ringers infusion (CANCELED) 1,000 mL, at 100 mL/hr, Intravenous, CONTINUOUS, Starting on Alannah 01/03/21 at 1130, Until Alannah 01/03/21 at 1736, Day of Surgery (Day of Procedure) 1131 (New Bag - Prov ider: Jeovanny Parmar RN)1231 (Paused - Provider: Terry Moctezuma MD - Comment: Switch to gravity)1232 (New Bag - Provider: Terry Moctezuma MD)1338 (Anesthesia Volume Adjustment - Provider: Terry Moctezuma MD)1430 (Anesthesia Volume Adjustment - Provider: Terry Moctezuma MD) PRN Medication Order 01/01/2021 01/02/2021 01/03/2021 BUpivacaine (pf) (Marcaine) (5 mg/mL) 0.5% injection (CANCELED) ONCE PRN, Starting on Alannah 01/03/21 at 1430, Until Alannah 01/03/21 at 2116, Intra-Operative (Intra-Procedure), Routine 1430 (Given - Provid er: Eulalio Hunt MD - Comment: 1% lidocaine and 0.5% bupivacaine mixed 1:1 Total of 20mLs given) HYDROmorphone (Dilaudid) (0.2 mg/1 mL) injection syringe 0.2 mg (CANCELED)(Linked Group 1) 0.2 mg, Intravenous, EVERY 10 MIN PRN, Starting on Alannah 01/03/21 at 1509, Until Alannah 01/03/21 at 1736, Pain, For Mild to Moderate Pain (1-5 out of 10), Hold for respiratory rate less than 10 per minute. Maximum dose 3 mg over one hour including administrations in the OR. If multiple pain medications are ordered, start with HYDROmorphone or morphine and use fentaNYL for breakthrough pain, PACU Recovery, Routine 1649 (Given - Provid er: Jamila Mcclellan RN)1727 (Given - Provider: Jamila Mcclellan RN) lidocaine (pf) (Xylocaine) (10 mg/mL) 1% injection (CANCELED) ONCE PRN, Starting on Alannah 01/03/21 at 1430, Until Alannah 01/03/21 at 2116, Intra-Operative (Intra-Procedure), Routine 1430 (Given - Provid er: Eulalio Hunt MD - Comment: 1% lidocaine and 0.5% bupivacaine mixed 1:1 Total of 20mLs given) methylene blue (Provayblue) (5 mg/mL) injection (CANCELED) ONCE PRN, Starting on Alannah 01/03/21 at 1256, Until Alannah 01/03/21 at 2116, Intra-Operative (Intra-Procedure) 1256 (Given - Provid er: Eulalio Hunt MD) oxyCODONE (Roxicodone) tablet 5 mg 5 mg, Oral, EVERY 4 HOURS PRN, Starting on Alannah 01/03/21 at 1713, Until Alannah 01/03/21 at 2116, Pain, Routine 1816 (Given - Provid er: Jamila Mcclellan RN) Linked Groups Order Group 1: HYDROmorphone (Dilaudid) (0.2 mg/1 mL) injection syringe 0.2 mg (CANCELED)Jump to med 0.2 mg, Intravenous, EVERY 10 MIN PRN, Starting on Alannah 01/03/21 at 1509, Until Alannah 01/03/21 at 1736, Pain, For Mild to Moderate Pain (1-5 out of 10), Hold for respiratory rate less than 10 per minute. Maximum dose 3 mg over one hour including administrations in the OR. If multiple pain medications are ordered, start with HYDROmorphone or morphine and use fentaNYL for breakthrough pain, PACU Recovery, Routine Or HYDROmorphone (Dilaudid) (0.2 mg/1 mL) injection syringe 0.4 mg (CANCELED) 0.4 mg, Intravenous, EVERY 10 MIN PRN, Starting on Alannah 01/03/21 at 1509, Until Alannah 01/03/21 at 1736, Pain, For Moderate to Severe Pain (6-10 out of 10), Hold for respiratory rate less than 10 per minute. Maximum dose 3 mg over one hour including administrations in the OR. If multiple pain medications are ordered, start with HYDROmorphone or morphine and use fentaNYL for breakthrough pain, PACU Recovery, Routine documented in this encounter Care Teams Data Reviewer Relationship Specialty Start Date End Date Charleen Williamson APRN [address] [place] [address] PCP - General Family Medicine 06/29/20 documented as of this encounter
--- OUTSIDE RECORDS SUMMARY | 2024-05-09 14:04 | XMS_ITS | Encounter Summary ---
Author Organization [facility] [place] [address] Care Team Providers Care Heavy Equipment Rental Associate Name Role Phone Charleen Williamson APRN Primary Care Provider [phone] Reason for Visit * Treatment/Therapy Plan Authorization [...] (PARAPLATIN) [id number] Romie (Trastuzumab-anns) Tyra Cornejo MD [facility] [address] HEMATOLOGY [place] [address] [facility] [address] [place] [address] Referral ID Status Reason Start Date Expiration Date Visits Re quested Visits Authorized [id number] Closed 07/20/2020 07/20/2021 99 [phone] Encounter Details Date Type Department Care Team (Latest Contact Info) Description 11/08/2020 10:27 AM EDT - 11/08/2020 11:59 PM EDT Hospital Encounter Hematology [place] [address] 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, estrogen receptor positive; Malignant neoplasm of central portion of right [...] days, stop when nausea resolves. 6 tablet 1 11/08/2020 11/29/2020 mupirocin (BACTROBAN) 2 % Ointment 0.1 g by Nasal route 2 times daily. Use one-half of tube in each nostril twice daily for five (5) days. After application, press sides of nose together and gently massage. 10 g 10/23/2020 12/19/2020 chlorhexidine (PERIDEX) 0.12 % Mouthwash Take 15 mLs by mouth 2 times daily. 120 mL 3 09/06/2020 11/29/2020 omeprazole (PriLOSEC) 20 mg Capsule, Delayed Release(E.C.) [...] as of this encounter Progress Notes * Rinku Berry, DENISE - 11/08/2020 5:57 PM EDT Patient Name: Alis Silva Patient Age: 30 y.o. Birthdate: 1990 Admit date: 11/08/2020 Attending Physician: No att. providers found 1700 Assumed care of patient. Carbo hung and finished. OnPro flashing Green at discharge. Chemo completed without incident. Patient discharged to home * Sherita Lainez RN - 11/08/2020 4:13 PM EDT Patient Name: Alis Silva Patient Age: 30 y.o. Birthdate: 1990 Admit date: 11/08/2020 Attending Physician: No att. providers found Alis Silva, 30 y.o. female with diagnosis of breast cancer is here for chemotherapy infusion of T-CHP, Zoladex injection and application of OnPro. PROTOCOL: N/a CYCLE: 5 WEEK: N/a DAY: 1 S: 0.5 mg PO PRN Ativan given for anxiety with good effect. O: Chemotherapy orders independently verified for correct drug name, route and dosage per patient'sheight, weight and BSA by Sherita Lainez RN and onsite pharmacist REACTIONS (DESCRIPTION, TIME, INTERVENTION AND EFFECTIVENESS) None reported A: Pt. Tolerated treatment well. Alis Silva confirms that all questions and issues have been addressed. P: Return to clinic per protocol documented in this encounter Plan of Treatment Upcoming Encounters Date Type Department Care Team (Late st Contact Info) Description 02/13/2025 1:00 PM EDT Office Visit Radiation Oncology at [address] [phone] Eleonora Mensah MD [facility] [place] [address] documented as of this encounter Procedures Procedure Name Priority Date/Time Associated Diagnosis Comments GOLD TUBE HOLD Routine 11/08/2020 2:00 PM EDT COMPREHENSIVE METABOLIC PANEL STAT 11/08/2020 1:49 PM EDT Malignant 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, estrogen receptor positive documented in this encounter Results * Gold Tube HOLD (11/08/2020 2:00 PM EDT) Gold Hold Sample in lab. [facility] Blood No Charge / Unknown 11/08/2020 2:00 PM EDT 11/08/2020 2:13 PM EDT Barbara CAIN CHEMISTRY ORDERABLES [facility] [place] [address] * (ABNORMAL) Comprehensive metabolic panel (non-fasting) (11/08/2020 1:49 PM EDT) Glucose 132 65 - 199 mg/dL [facility] Comment:Diabetes: >=200 mg/d L plus symptoms Blood Urea Nitrogen 11 8 - 18 mg/dL [facility] Creatinine 0.69(L) 0.70 - 1.20 mg/dL [facility] Sodium 138 135 - 145 mmol/L [facility] Potassium 3.6 3.5 - 5.0 mmol/L [facility] Comment: Please note: ??Patients with WBC >100,000 may have falsely elevated Potassium levels. ??For accurate Potassium quantification in these patients send serum separator tube (gold top) for subsequent determinations. ??Contact the Clinical Chemistry Laboratory if there are any questions. Chloride 103 98 - 107 mmol/L [facility] Carbon Dioxide 25 22 - 31 mmol/L [facility] Anion Gap 10 5 - 15 mmol/L [facility] Calcium 9.3 8.5 - 10.5 mg/dL [facility] Protein, Total 7.6 6.1 - 8.0 gm/dL [facility] Albumin 4.4 3.2 - 5.2 gm/dL [facility] Aspartate Aminotransferase 17 0 - 30 unit/L [facility] Alanine Aminotransferase 24 0 - 30 unit/L [facility] Alkaline Phosphatase 64 35 - 105 unit/L [facility] Bilirubin, Total 0.4 0.2 - 1.3 mg/dL [facility] Est Glomerular Filtration Rate 118 >=60 mL/min/1. 73 m?? [facility] Comment: This patient? [...] and symptoms in addition to eGFR. Blood 11/08/2020 1:49 PM EDT 11/08/2020 1:57 PM EDT Narrative Resulting Agency Comment Spec In Lab Tyra Cornejo MD CHEMISTRY ORDERABLE S [facility] [place] [address] * Comprehensive metabolic panel (non-fasting) (11/08/2020 10:45 AM EDT) Glucose 124 65 - 199 mg/dL [facility] Comment:Diabetes: >=200 mg/d L plus symptoms Blood Urea Nitrogen 13 8 - 18 mg/dL [facility] Creatinine 0.75 0.70 - 1.20 mg/dL [facility] Sodium 139 135 - 145 mmol/L [facility] Potassium Not Perf 3.5 - 5.0 [facility] Comment: Please note: ??Patients with WBC >100,000 may have falsely elevated Potassium levels. ??For accurate Potassium quantification in these patients send serum separator tube (gold top) for subsequent determinations. ??Contact the Clinical Chemistry Laboratory if there are any questions. Unable to quantitate due to sample hemolysis. ??Sample redraw suggested. 11/08/20 11:36 [facility] Chloride 104 98 - 107 mmol/L [facility] Carbon Dioxide 24 22 - 31 mmol/L [facility] Anion Gap 11 5 - 15 mmol/L [facility] Calcium 9.3 8.5 - 10.5 mg/dL [facility] Protein, Total 7.7 6.1 - 8.0 gm/dL [facility] Albumin 4.4 3.2 - 5.2 gm/dL [facility] Aspartate Aminotransferase Not Perf 0 - 30 [facility] Comment: Unable to quantitate due to sample hemolysis. ??Sample redraw suggested. 11/08/20 11:36 [facility] Alanine Aminotransferase Not Perf 0 - 30 [facility] Comment: Unable to quantitate due to sample hemolysis. ??Sample redraw suggested. 11/08/20 11:36 [facility] Alkaline Phosphatase 61 35 - 105 unit/L [facility] Bilirubin, Total 0.4 0.2 - 1.3 mg/dL [facility] Est Glomerular Filtration Rate 108 >=60 mL/min/1. 73 m?? [facility] Comment: This patient? s estimated glomerular filtration rate (eGFR) is between 108 mL/min/1.73 m2 (patients with less muscle mass) and 126 mL/min/1.73 m2 (patients with more muscle mass) [...] and symptoms in addition to eGFR. Blood 11/08/2020 10:4 5 AM EDT 11/08/2020 10:57 AM EDT Narrative Resulting Agency Comment Spec In Lab Tyra Cornejo MD CHEMISTRY ORDERABLE S [facility] [place] [id number] documented in this encounter Visit Diagnoses Diagnosis [...] 2 Minutes, ONCE, 1 dose, On Alannah 11/08/20 at 1245, Alternative administration of IV push over 2 minutes is a recommendation from the lumber piler. Administer prior to chemotherapy., Routine Given 11/08/2020 2:31 PM EDT 130 mg CARBOplatin (Paraplatin) 900 mg in dextrose 5% 340 mL infusion 900 mg (Target AUC = 6), Intravenous, ONCE, 1 dose, On Alannah 11/08/20 at 1500, Administer over 30 Minutes, Warning Vesicant/Irritant Medication New Bag 11/08/2020 5:16 PM EDT 900 mg 680 mL/hr dexamethasone (PF) (Decadron) (10 mg/mL) injection 10 mg 10 mg, Intravenous, ONCE, 1 dose, On Alannah 11/08/20 at 1245, Administer 60 minutes prior to DOCEtaxel Given 11/08/2020 2:30 PM EDT 10 mg diphenhydrAMINE (Benadryl) capsule 50 mg 50 mg, Oral, ONCE, 1 dose, On [place] 11/08/20 at 1245, Administer 60 minutes prior to DOCEtaxel, Routine Given 11/08/2020 1:31 PM EDT 50 mg DOCEtaxeL (Taxotere) 140 mg in sodium chloride 0.9% Non-PVC 257 mL infusion 140 mg, Intravenous, ONCE, 1 dose, On Alannah 11/08/20 at 1500, Administer over 60 Minutes, Warning Vesicant/Irritant Medication Dose Ordered = 153 mg (75 mg/m2). Pharmacist rounded dose per procedure. New Bag 11/08/2020 4:03 PM EDT 140 mg 257 mL/hr famotidine (Pepcid) (10 mg/mL) injection 20 mg 20 mg, Intravenous, ONCE, 1 dose, On Alannah 11/08/20 at 1245, Administer 60 minutes prior to DOCEtaxel Given 11/08/2020 2:30 PM EDT 20 mg goserelin (ZOLADEX) implant 3.6 mg 3.6 mg, Subcutaneous, ONCE, 1 dose, On Alannah 11/08/20 at 1245, Routine, This agent is restricted to outpatient use. Is this drug being given as an outpatient? Yes Given 11/08/2020 4:03 PM EDT 3.6 mg Left Lower Quadrant heparin (pf) (porcine) (100 units/mL) flush 5 mL syringe 500 Units 500 Units, Intravenous, ONCE PRN, Starting on Alannah 11/08/20 at 1215, Until Thu11/09/20 at 0441, Line Care, Refer to Intravenous (IV) Procedure: Accessing Implanted Vascular Access Devices (084) procedure and/or Intravenous (IV) Job Aid: Adult Flushing & Catheter Care (1080) job aid for additional information regarding guidelines and administration., Routine Given 11/08/2020 5:49 PM EDT 500 Units lidocaine (Xylocaine) 1% (10 mg/mL) injection 10 mg 10 mg (1 mL), Subcutaneous, ONCE, 1 dose, On Alannah 11/08/20 at 1245, Order either Ice or lidocaine for the injection. Inject up to 3 mL, Routine Given 11/08/2020 4:00 PM EDT 10 mg LORazepam (Ativan) tablet 0.5 mg 0.5 mg, Oral, EVERY 4 HOURS PRN, Starting on Alannah 11/08/20 at 1438, Until Thu11/09/20 at 0441, Anxiety, Nausea, Vomiting, If multiple antiemetics are ordered, use in the following sequence: Ondansetron>Prochlorpe razine or Promethazine>Lorazepam >Metoclopramide, Routine Given 11/08/2020 2:44 PM EDT 0.5 mg palonosetron (Aloxi) (0.25 mg/mL) injection 0.25 mg 0.25 mg, Intravenous, ONCE, 1 dose, On Alannah 11/08/20 at 1245, Administer over 30 seconds., Routine Given 11/08/2020 2:30 PM EDT 0.25 mg pegfilgrastim (Neulasta Onpro) (6 mg/0.6 mL) injection kit 6 mg 6 mg, Subcutaneous, ONCE, 1 dose, On Alannah 11/08/20 at 1245, Allow the prefilled syringe co-packaged with the on-body injector to reach room temperature at least 30 minutes prior to administration. , Routine, This agent is restricted to outpatient use. Is this drug being given as an outpatient? Yes Given 11/08/2020 5:44 PM EDT 6 mg Right Arm pertuzumab (Perjeta) 420 mg in sodium chloride 0.9% 264 mL infusion 420 mg, Intravenous, ONCE, 1 dose, On Alannah 11/08/20 at 1330, Administer over 30 Minutes, This agent is restricted to outpatient use. Is this drug being given as an outpatient? Yes New Bag 11/08/2020 2:36 PM EDT 420 mg 528 mL/hr TRASTuzumab-anns (Kanjinti) 510 mg in sodium chloride 0.9% 274.31 mL infusion 510 mg (rounded from 513 mg = 6 mg/kg/dose ? 85.5 kg Treatment plan Recorded weight), Intravenous, ONCE, 1 dose, On Alannah 11/08/20 at 1330, Administer over 30 Minutes, Incompatible in D5W, This agent is restricted to outpatient use. Is this drug being given as an outpatient? Yes New Bag 11/08/2020 3:21 PM EDT 510 mg 548.6 mL/hr documented in this encounter Care Teams Heavy Equipment Rental Associate Relationship Specialty Start Date End Date Charleen Williamson APRN [address] [place] [address] PCP - General Family Medicine 06/29/20 documented as of this encounter
--- OUTSIDE RECORDS SUMMARY | 2024-05-09 14:04 | XMS_ITS | Encounter Summary ---
Author Organization Formerly [facility] Address [facility] [place] [address] Care Team Providers Care Rim Roller Operator Name Role Phone Charleen Williamson APRN Primary Care Provider [phone] [phone] Reason for Referral * Diagnostic Test (Routine) - Closed Specialty Diagnoses / Procedures Referred By Contac t Referred To Contact Radiology Diagnoses Malignant 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, estrogen receptor positive SOB (shortness of breath) Procedures MRI Breast wwo Contrast Tyra Alarcon MD [facility] DR H[place] [address] [place] [address] Referral ID Status Reason Start Date Expiration Date V isits Requested Visits Authorized [id number] Closed Specialty Service Requested 10/23/2020 04/24/2022 1 1 Reason for Visit * Diagnostic Test (Routine) - Closed Specialty Diagnoses / Procedures Referred By Contac t Referred To Contact Radiology Diagnoses Malignant 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, estrogen receptor positive SOB (shortness of breath) Procedures MRI Breast wwo Contrast Tyra Alarcon MD [facility] DR [place] [address] [place] [address] Referral ID Status Reason Start Date Expiration Date V isits Requested Visits Authorized [id number] Closed Specialty Service Requested 10/23/2020 04/24/2022 1 1 Encounter Details Date Type Department Care Team (Latest Contact Info) Description 12/14/2020 8:14 AM EDT - 12/14/2020 11:59 PM EDT Hospital Encounter MRI at [facility] [address] Tyra Cornejo MD [facility] DR [place] [address] Malignant 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, estrogen receptor positive; SOB (shortness of breath) Discharge Disposition: Home Social History Tobacco Use [...] EVERY 8 HOURS NEEDED FOR ANXIETY 07/09/2020 sertraline (ZOLOFT) 100 mg Tablet Take 200 [...] 07/18/2020 12/20/2020 documented as of this encounter Plan of Treatment Upcoming Encounters Date Type Department Care Team (Late st Contact Info) Description 02/13/2025 1:00 PM EDT Office Visit Radiation Oncology at [address] [phone] Eleonora Mensah MD [facility] [place] [address] documented as of this encounter Procedures Procedure Name Priority Date/Time Associated Diagnosis Comments MRI BREAST WWO CONTRAST BILAT Routine 12/14/2020 9:56 AM EDT Malignant 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, estrogen receptor positive SOB (shortness of breath) documented in this encounter Results * MRI Breast wwo Contrast Bilat (12/14/2020 9:56 AM EDT) Anatomical Region Laterality Modality Breast Bilateral Magnetic Resonan ce Impressions 12/14/2020 12:38 PM EDT Partial response of dominant known malignancy in the right retroareolar region. Complete imaging response of lesion in the right upper outer quadrant RECOMMENDATION:Definitive management. LEFT BREAST 1. Normal RIGHT BREAST ??6. Known malignancy Thank you for letting us participate in the care of this patient. ??If you are a health care provider and have any questions regarding this report, please contact the number below. ??For patients who have questions please contact the health medicare coordinator that requested your imaging first. ? Narrative 12/14/2020 12:38 PM EDT BILATERAL BREAST MRI CLINICAL INDICATION: ??Status post neoadjuvant chemotherapy for right breast cancer with dominant mass measuring 6 cm in the retroareolar area and a second lesion measuring 1.7 cm with intervening nonmass enhancement. MR guided core biopsy of an incidental left breast mass was benign. TECHNIQUE: Multiplanar sequences were obtained post- gadolinium enhancement, to include SPGR weighted dynamic run-off and subtraction sequences obtained after the intravenous administration of 20 ccs of Dotarem. Computer algorithm analysis for lesion detection and kinetic contrast enhancement curve analysis was performed, using [employer] software. Kinetic features are impaired as the technologist injected and obtained the first sequence at the same time, limiting the quality of the subtraction images. COMPARISON STUDIES: Compared and/or correlated with prior studies including 07/11/2020. FINDINGS: Background Enhancement Pattern (first post gadolinium image): Minimal Amount of Fibroglandular Tissue: Heterogeneous LEFT Breast: There are no morphologic abnormalities were areas of abnormal parenchymal enhancement. RIGHT Breast:There is persistent but slightly decreased skin thickening and edema. There is increased edema within the retroareolar mass. The mass has decreased in size (transverse diameter 2 cm, decreased from 4 cm, anterior to posterior diameter 2 cm, decreased from 2.7 cm, and superior to inferior dimension 3.7 cm, decreased from 6 cm). The second mass is no longer visualized in the right upper outer quadrant. Lymph Node Basins/Other: There is no evidence of internal mammary or axillary adenopathy.. No significant abnormalities are seen in the chest wall or skin.. Tyra Cornejo MD IMG MRI ORDERABLES documented in this encounter Visit Diagnoses Diagnosis Malignant 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, estrogen receptor positive SOB (shortness of breath) Shortness of breath documented in this encounter Administered Medications Inactive Administered Medications - up to 3 most recent administrations Medication Order MAR Action Action Date Dose Rate Site gadoterate meglumine (Dotarem) (0.5 mMol/mL) injection solution 0-100 mL 0-100 mL, Intravenous, ONCE PRN, 1 dose, Starting on Thu12/14/20 at 0938, Until Thu12/14/20 at 0938, Per Protocol, Radiology Contrast, Routine Given 12/14/2020 9:38 AM EDT 20 mLs documented in this encounter Care Teams Rim Roller Operator Relationship Specialty Start Date End Date Charleen Williamson APRN [address] [place] [address] PCP - General Family Medicine 06/29/20 documented as of this encounter
--- OUTSIDE RECORDS SUMMARY | 2024-05-09 14:04 | XMS_ITS | Encounter Summary ---
[place] [address] Care Team Providers Care Radar Operator Name Role Phone Charleen Williamson APRN Primary Care Provider [phone] [phone] Reason for Visit * Physical Therapy (Routine) - Closed Specialty Diagnoses / Procedures Referred By Fawn t Referred To Contact Physical Therapy Diagnoses Breast cancer Eulalio Hunt MD [facility] [place] [address] [facility] [place] [address] Referral ID Status Reason Start Date Expiration Date Visits Re quested Visits Authorized [id number] Closed 12/27/2020 12/27/2021 30 30 Encounter Details Date Type Department Care Team (Late st Contact Info) Description 01/14/2021 9:00 AM EDT Office [place] [address] Ame Santo, PT H/O right mastectomy Social History Tobacco Use Types Packs/Day Years [...] encounter Miscellaneous Notes * Initial Evaluation - Ame Santo, PT - 01/14/2021 9:00 AM EDT Images from the original note were not included. PHYSICAL THERAPY EVALUATION Date of Exam/First treatment: 01/14/2021 Date of Onset 01/03/2021 Referring Provider: Eulalio Hunt Primary Insurance: Payor: [place] / Plan: [place] PRIMARY CARE PL[place] / Product Type: *No Product type* / Diagnosis and pertinent co-morbidities: No diagnosis found. Medicare Cert Period: 01/14/2021 - total treatment time: 45 minutes total timed code treatment: 0 minutes 1 eval CURRENT HISTORY: Alis Silva is a 30 y.o. female s/p R mastectomy , pt had chemo pre surgery for R sided breastcancer . 04/27 nodes positive. No complications. Patient Active Problem List Diagnosis Date Noted ??? Malignant neoplasm of right breast in female, estrogen receptor positive 07/04/2020 Adjuvant Treatment pending: Radiation Hormonal Social: Pt. lives in [facility] [place] [facility], near [facility] and would follow up PT closer to her home Work: on medical leave Function/exercise history: lives with , three cats and dog Walking distance/frequency had been walking 2 miles most days Other exercise Hobbies Pain: Very little pain, mostly at night when she is on her back.0-3/10 Hasn't needed any medicationfor a few days. FUNCTIONAL LIMITATIONS: On a difficulty scale with 0 being unable to perform an activity, and 10 being able to perform at a pre injury level she rates Walk for exercise, drive her car, reach over head, do dishes, vacum 5/10 CLINICAL FINDINGS: Posture: Forward R shoulder Active Range of motion: supine L wnl No previous injury to R shoulder rom deferred due to drain in place right left Sh flexion Sh abduction Sh ER Sh IR na na Strength: L 5/5 R not tested Palpation/inspection: deferred Flexibility: decreased at: pectoralis CLINICAL EVALUATION AND DIAGNOSIS: pt in sling with drain still in place will need to have PT follow up closer to home to return to full function /pain free Clinical presentation: Stable Evolving Unstable Notes: Clinical decision making of moderate complexity using standardized patient assessment instrument and measurable assessment of functional outcome. The patient's rehabilitation potential is good. GOALS: Therapy Short Term Goals: 2 weeks 1. Increase ROM 90/90 flexion/abd active 2. Decrease pain 0-1 3 independent in all home ex Therapy Finance Professor Goals: 6 weeks 1. Full functional use of UE without discomfort 2. Walking 150 min a week INITIAL TREATMENT INCLUDED: Plan: Treatment: Home ex, education, manual therapy as needed Frequency and Duration: Follow up per Raul Aponte's office /PT The plan has been discussed with the patient and she has agreed with it. AME SANTO PT documented in this encounter Plan of Treatment Upcoming Encounters Date Type Department Care Team (Late st Contact Info) Description 02/13/2025 1:00 PM EDT Office Visit Radiation Oncology at [address] [phone] Eleonora Mensah MD [facility] [place] [address] documented as of this encounter Visit Diagnoses Diagnosis H/O right mastectomy Acquired absence of breast and nipple documented in this encounter Care Teams Radar Operator Relationship Specialty Start Date End Date Charleen Williamson APRN [address] [place] [address] PCP - General Family Medicine 06/29/20 documented as of this encounter
--- OUTSIDE RECORDS SUMMARY | 2024-05-09 14:04 | XMS_ITS | Encounter Summary ---
Author Organization Formerly [facility] Address [facility] [address] Care Team Providers Care Business Process Expert Name Role Phone ClayNiharika packerhrjessica White IVY Primary Care Provider [phone] [phone] Encounter Details Date Type Department Care Team (Late st Contact Info) Description 12/19/2020 Orders [place] [address] [facility] [place] [address] Malignant neoplasm of right breast in female, [...] EDT Office Visit Radiation Oncology at [address] [phone] [facility] [place] [address] documented as of this encounter Results * Mammo Specimen Right (01/03/2021 2:46 PM EDT) Anatomical Region Laterality Modality Breast Right Mammography Impressions 01/03/2021 3:47 PM EDT Positive specimen x-ray as described. Results phoned to the operating surgeon intraoperatively. Thank you for letting us participate in the care of this patient. ??If you are a health care provider and have any questions regarding this report, please contact the number below. ??For patients who have questions please contact the health adult day care worker that requested your imaging first. ? Electronically signed by: Mili Whalen MD, [facility] ([phone]), at 01/03/2021 3:47 PM Narrative 01/03/2021 3:47 PM EDT EXAMINATION: Specimen x-ray INDICATION: Intraoperative specimen image for adequacy of lesion and/or clip removal TECHNIQUE: A single projection specimen x-ray from the right axilla is obtained superimposed on alphanumeric grid COMPARISON: This is correlated with preoperative imaging FINDINGS: Morphologically abnormal lymph node and localization wire are identified in the surgical specimen. Biopsy clip from prior axillary lymph node biopsy is not present in the surgical specimen. As discussed with Dr. Hunt, the clip was noted to be outside of the morphologically abnormal lymph node at the time of preoperative wire localization. Additional tissue from the upper outer quadrant of the right mastectomy was imaged and does not contain the axillary node biopsy clip. Eulalio Hunt MD IMG MAMMO ORDERABLES * Mammo [place] Node Injection (01/03/2021 10:18 AM EDT) Anatomical Region Laterality Modality Breast N/A Mammography Impressions 01/03/2021 10:27 AM EDT Status [...] who have questions please contact the health adult day care worker that requested your imaging first. ? Electronically signed by: Mili Whalen MD, [facility] ([phone]), at 01/03/2021 10:27 AM Narrative 01/03/2021 10:27 [...] observing. Eulalio Hunt MD IMG MAMMO ORDERABLES * Mammo US Needle Localization Right (01/03/2021 [...] who have questions please contact the health adult day care worker that requested your imaging first. ? Electronically signed by: Mili Whalen MD, [facility] ([phone]), at 01/03/2021 10:27 AM Narrative 01/03/2021 10:27 [...] breast documented in this encounter Care Teams Business Process Expert Relationship Specialty Start Date End Date Charleen Williamson APRN [address] [place] [address] PCP - General Family Medicine 06/29/20 documented as of this encounter
--- OUTSIDE RECORDS SUMMARY | 2024-05-09 14:04 | XMS_ITS | Encounter Summary ---
[place] [address] Care Team Providers Care Catalog Library Assistant Name Role Phone Charleen Williamson APRN Primary Care Provider [phone] [phone] Encounter Details Date Type Department Care Team (Late st Contact Info) Description 01/18/2021 Telephone [place] [phone] Reema Quinones RN Social History Tobacco Use Types Packs/Day [...] encounter Miscellaneous Notes * Telephone Encounter - Reema Quinones RN - 01/18/2021 4:08 PM EDT I received a voicemail message from Gali, nurse with [facility]. She is calling to report that the patient has declined further care. She states that the patient is doing well and managing independently. documented in this encounter Plan of Treatment Upcoming Encounters Date Type Department Care Team (Late st Contact Info) Description 02/13/2025 1:00 PM EDT Office Visit Radiation Oncology at [address] [phone] Eleonora Mensah MD [facility] [place] [address] documented as of this encounter Visit Diagnoses Not on filedocumented in this encounter Care Teams Catalog Library Assistant Relationship Specialty Start Date End Date Charleen Williamson APRN [address] [place] [address] PCP - General Family Medicine 06/29/20 documented as of this encounter
--- OUTSIDE RECORDS SUMMARY | 2024-05-09 14:04 | XMS_ITS | Encounter Summary ---
Author Organization [facility] Address [facility] [place] [address] Care Team Providers Care Pound Keeper Name Role Phone Charleen Williamson APRN Primary Care Provider +1 -[phone] Reason for Visit * Treatment/Therapy Plan Authorization [...] (PARAPLATIN) [id number] Romie (Trastuzumab-anns) Tyra Cornejo MD [facility] DR H[place]AT[place] [address] [facility] [address] [place] [address] Referral ID Status Reason Start Date Expiration Date Visits Re quested Visits Authorized [id number] Closed 07/20/2020 07/20/2021 99 99 Encounter Details Date Type Department Care Team (Latest Contact Info) Description 11/29/2020 8:37 AM EDT Hospital Encounter Hematology [place] [address] Malignant neoplasm of overlapping sites [...] EVERY 8 HOURS NEEDED FOR ANXIETY 07/09/2020 LORazepam (Ativan) 0.5 mg Tablet Take 1 [...] as of this encounter Progress Notes * Sherita Lainez, RN - 11/29/2020 9:02 AM EDT Patient Name: Alis Silva Patient Age: 30 y.o. Birthdate: 1990 Admit date: 11/29/2020 Attending Physician: No att. providers found Access visit. See MAR and/or flowsheet. documented in this encounter Miscellaneous Notes * Addendum Note - Sherita Lainez RN - 11/29/2020 9:03 AM EDTEncounter addended by: Sherita Lainez, RN on: 11/29/2020 9:03 AM Actions taken: Flowsheet accepted documented in this encounter Plan of Treatment Upcoming Encounters Date Type Department Care Team (Late st Contact Info) Description 02/13/2025 1:00 PM EDT Office Visit Radiation Oncology at [address] [phone] Eleonora Mensah MD [facility] [place] [address] documented as of this encounter Procedures Procedure Name Priority Date/Time Associated Diagnosis Comments HEMOGRAM STAT 11/29/2020 9:00 AM EDT 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, estrogen receptor positive DIFFERENTIAL, AUTOMATED STAT 11/29/2020 9:00 AM EDT 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, estrogen receptor positive CBC,PLT & AUTO DIFF STAT 9:00 AM EDT 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, estrogen receptor positive COMPREHENSIVE METABOLIC PANEL STAT 11/29/2020 9:00 AM EDT 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, estrogen receptor positive documented in this encounter Results * Differential, Automated (11/29/2020 9:00 AM EDT) Neutrophil % 56.0 % [facility] Neutrophil Absolute 2.62 1.70 - 6.10 x10(3)/[facility] Lymph % 34.4 % [facility] Lymphocytes Abs 1.6 0.9 - 3.2 x10(3)/[facility] Monocyte % 9.0 % [facility] Monocyte Abs 0.4 0.3 - 0.9 x10(3)/[facility] Eos % 0.0 % [facility] Eosinophils Abs 0.0 0.0 - 0.4 x10(3)/[facility] Basophil % 0.4 % [facility] Baso Absolute 0.0 0.0 - 0.1 x10(3)/[facility] Immature Gran % 0.20 % [facility] Comment: Immature granulocytes(IG's)percentage and absolute count will include metamyelocytes, myelocytes, and promyelocytes. Blood smears from CBCs yielding IG's will be scanned manually for concordance. If this scan disagrees with the automated IG or if promyelocytes are noted, a manual differential will be performed. Immature Gran Absolute 0.01 0.00 - 0.04 x10(3)/[facility] Blood 11/29/2020 9:00 AM EDT 11/29/2020 9:11 AM EDT Narrative Resulting Agency Comment Spec In Lab Barbara CAIN HEMATOLOGY ORDERABLE S [facility] [place] [address] * (ABNORMAL) Hemogram (11/29/2020 9:00 AM EDT) White Blood Cell 4.7 4.0 - 9.5 x10(3)/mc L [facility] Red Blood Cell 2.55(L) 4.00 - 5.21 x10(6)/mc L [facility] Hemoglobin 9.0(L) 11.7 - 15.5 gm/dL [facility] Hematocrit 26.0(L) 35.7 - 45.8 % [facility] Mean Cell Volume 102.0(H) 82.6 - 94.4 fL [facility] Mean Cell Hemoglobin 35.3(H) 27.1 - 32.0 pg [facility] Mean Cell Hemoglobin Concentration 34.6 31.7 - 35.0 gm/dL [facility] Platelet 65(L) 145 - 357 x10(3)/mc L [facility] RDW Standard Deviation 57.0(H) 37.0 - 46.0 [facility] RDW coefficient of variation 15.6(H) 11.5 - 14.1 % [facility] Mean Platelet Volume 9.5 7.6 - 12.9 [facility] NRBC% auto 0.0 % [facility] NRBC Absolute 0.000 0.000 - 0.000 x10(3)/mc L [facility] Blood 11/29/2020 9:00 AM EDT 11/29/2020 9:11 AM EDT Narrative Resulting Agency Comment Spec In Lab Barbara CAIN HEMATOLOGY ORDERABLE S [facility] [place] [address] * Comprehensive metabolic panel (non-fasting) (11/29/2020 9:00 AM EDT) Glucose 122 65 - 199 mg/dL [facility] Comment:Diabetes: >=200 mg/d L plus symptoms Blood Urea Nitrogen 10 8 - 18 mg/dL [facility] Creatinine 0.72 0.70 - 1.20 mg/dL [facility] Sodium 142 135 - 145 mmol/L [facility] Potassium 3.8 3.5 - 5.0 mmol/L [facility] Comment: Please note: ??Patients with WBC >100,000 may have falsely elevated Potassium levels. ??For accurate Potassium quantification in these patients send serum separator tube (gold top) for subsequent determinations. ??Contact the Clinical Chemistry Laboratory if there are any questions. Chloride 105 98 - 107 mmol/L [facility] Carbon Dioxide 26 22 - 31 mmol/L [facility] Anion Gap 11 5 - 15 mmol/L [facility] Calcium 8.9 8.5 - 10.5 mg/dL [facility] Protein, Total 7.0 6.1 - 8.0 gm/dL [facility] Albumin 4.2 3.2 - 5.2 gm/dL [facility] Aspartate Aminotransferase 20 0 - 30 unit/L [facility] Alanine Aminotransferase 21 0 - 30 unit/L [facility] Alkaline Phosphatase 60 35 - 105 unit/L [facility] Bilirubin, Total 0.3 0.2 - 1.3 mg/dL [facility] Est Glomerular Filtration Rate 114 >=60 mL/min/1. 73 m?? [facility] Comment: This patient? s estimated [...] and symptoms in addition to eGFR. Blood 11/29/2020 9:00 AM EDT 11/29/2020 9:11 AM EDT Narrative Resulting Agency Comment Spec In Lab Tyra Cornejo MD CHEMISTRY ORDERABLE S [facility] [place] [address] documented in this encounter Visit Diagnoses Diagnosis [...] Intravenous, EVERY 1 MIN PRN, Starting on Alannah 11/29/20 at 0847, Until Thu11/30/20 at 0436, Line Care, Flush pertains to all indwelling lines. Flush per protocol found in the job aid using the link provided on this medication record. Refer to Intravenous (IV) Job Aid: Adult Flushing & Catheter Care (9665) job aid for additional information regarding guidelines and administration., Routine Given 11/29/2020 9:01 AM EDT 20 mLs documented in this encounter Care Teams Pound Keeper Relationship Specialty Start Date End Date Charleen Williamson APRN [address] [place] [address] PCP - General Family Medicine 06/29/20 documented as of this encounter
--- OUTSIDE RECORDS SUMMARY | 2024-05-09 14:04 | XMS_ITS | Encounter Summary ---
Author Organization [facility] Address [facility] [place] [address] Care Team Providers Care Bed Machine Operator Name Role Phone Charleen Williamson APRN Primary Care Provider +1 [phone] Encounter Details Date Type Department Care Team (Late st Contact Info) Description 11/08/2020 Notes [place] [phone] Kenyetta Kohler, ASSISTANT ACTIVITIES DIRECTOR Social History Tobacco Use Types Packs/Day Years [...] this encounter Progress Notes * Kenyetta Kohler ASSISTANT ACTIVITIES DIRECTOR - 11/08/2020 1:27 PM EDT Per pt email request I'm able to meet with her today while she is present for consultation with PAYTON Moffett. Pt is accompanied by , Daren. Pt presents with stable mood and affect, and is alert, oriented, and conversant with normal speech and soft volume. Pt has asked to discuss need for financial assistance per unemployment status and 's disability status. They drive approx 1.5 hours to treatment and have been having car trouble.Pt provides anestimate for repairs, and will obtain another estimate for additional needed repairs next week. We review that pt applied for assistance through [facility] with former [facility] child protective services social worker MILAGROS Hernandez. Zack submit an additional application to [facility] for vehicle repair estimate. I will also consider additional sources of available funding as pt's need for financial assistance is ongoing at this time. Pt is given $20 gas card for today's appt. I will submit pt's application to [facility]. documented in this encounter Plan of Treatment Upcoming Encounters Date Type Department Care Team (Late st Contact Info) Description 02/13/2025 1:00 PM EDT Office Visit Radiation Oncology at [address] [address] Eleonora Mensah MD [facility] [place] [address] documented as of this encounter Visit Diagnoses Not on filedocumented in this encounter Care Teams Bed Machine Operator Relationship Specialty Start Date End Date Charleen Williamson APRN [address] [place] [address] PCP - General Family Medicine 06/29/20 documented as of this encounter
--- OUTSIDE RECORDS SUMMARY | 2024-05-09 14:04 | XMS_ITS | Encounter Summary ---
Author Organization [facility] [place] [address] Care Team Providers Care Gis Analyst Developer Name Role Phone Charleen Williamson APRN Primary Care Provider +1 [phone] Encounter Details Date Type Department Care Team (Late st Contact Info) Description 01/17/2021 Orders Only [place] [phone] Tyra Cornejo MD [facility] [place] [address] Malignant neoplasm of central portion of right [...] Addendum Note - Nimesh Bonner RN - 01/17/2021 3:40 PM EDTAddended by: NIMESH BONNER on: 02/18/2021 03:46 PM Modules accepted: Orders documented in this encounter Plan of Treatment Upcoming Encounters Date Type Department Care Team (Late st Contact Info) Description 02/13/2025 1:00 PM EDT Office Visit Radiation Oncology at [address] [address] Eleonora Mensah MD [facility] [place] [address] documented as of this encounter Visit Diagnoses Diagnosis Malignant 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
--- OUTSIDE RECORDS SUMMARY | 2024-05-09 14:04 | XMS_ITS | Encounter Summary ---
Author Organization [facility] Address [facility] [place] [address] Care Team Providers Care Mash Preparatory Operator Name Role Phone Charleen Williamson APRN Primary Care Provider +1 [phone] Reason for Visit * Auth/Cert Specialty Diagnoses [...] Expiration Date Visits Re quested Visits Authorized [id number] 1 1 Encounter Details Date Type Department Care Team (Latest Contact Info) Description 01/03/2021 9:15 AM EDT Hospital Encounter [place] [phone] Eulalio Hunt MD [facility] [place] [address] Malignant neoplasm of right breast in female, [...] EDT Office Visit Radiation Oncology at [address] [address] Eleonora Mensha MD [facility] [place] [address] documented as of this encounter Procedures Procedure Name Priority Date/Time Associated Diagnosis Comments MAMMO SENTINEL NODE INJECTION Routine 01/03/2021 10:18 AM EDT Malignant neoplasm of right breast in female, estrogen receptor positive, unspecified site of breast documented in this encounter Results * Mammo [place] Node Injection (01/03/2021 10:18 AM EDT) Anatomical [...] who have questions please contact the health emergency care tech that requested your imaging first. ? Electronically signed by: Mili Whalen MD, [facility] ([phone]), at 01/03/2021 10:27 AM Narrative 01/03/2021 10:27 [...] Action Date Dose Rate Site technetium (Tc-99m) sulfur colloid injection 0-18 mCi 0-18 mCi, Intradermal, ONCE PRN, 1 dose, Starting on Alannah 01/03/21 at 1033, Until Alannah 01/03/21 at 1015, Per Protocol, Radiology Contrast, Routine Given 01/03/2021 10:15 AM EDT 1.5 mCi documented in this encounter Care Teams Mash Preparatory Operator Relationship Specialty Start Date End Date Charleen Williamson APRN [address] [place] [address] PCP - General Family Medicine 06/29/20 documented as of this encounter
--- OUTSIDE RECORDS SUMMARY | 2024-05-09 14:04 | XMS_ITS | Encounter Summary ---
Author Organization [facility] Address [facility] [place] [address] Care Team Providers Care Cognos Lead Name Role Phone Charleen Williamson APRN Primary Care Provider +1 [phone] Encounter Details Date Type Department Care Team (Late st Contact Info) Description 11/29/2020 10:00 AM EDT Office Visit Hematology [place] [phone] Tyra Cornejo MD [facility] DR HEMATOLOGY [place] [address] Malignant neoplasm of central portion of right [...] Sign Reading Time Taken Comments Blood Pressure 139/70 11/29/2020 9:49 AM EDT Pulse 92 11/29/2020 9:49 AM EDT Temperature 36.1 ??C (97 ??F) 11/29/2020 9:49 AM EDT Respiratory Rate 17 11/29/2020 9:49 AM EDT Oxygen Saturation 97% 11/29/2020 9:49 AM EDT Inhaled Oxygen Concentration - - Weight 89.1 kg (196 lb 6.4 oz) 11/29/2020 9:49 A M EDT Height 174.7 cm (5' 8.78) 11/29/2020 9:49 AM ED T Body Mass Index 29.19 11/29/2020 9:49 AM EDT documented in this encounter Progress Notes * Tyra Cornejo MD - 11/29/2020 10:00 AM EDT Images from the original note were not included. Subjective: Patient ID: Alis Silva is a 30 y.o. female. Cc: breast cancer Interval history: Alis is here for her last cycle of chemotherapy. She reports increasing fatigue, and feeling very tired for the week after chemo with persistent nausea. Takes anti-emetics and dexamethasone with good effect, is able to eat and drink regularly. Has chronic low back pain that is also a bit worse lately. Usually sees a chiropractor but hasn't seen him/ her recently. Has continuednasal pain and patch of mucosal inflammation left nares, and an anal tear. Denies significant constipation or straining. Occasional blood on toilet paper, last time over a week ago. No pain, fevers, chills or sweats. 29 yo self-palpated a mass under the right nipple when she noticed it had inverted at the end of May 2020. [place] 06/29/20 [facility] + HER2 + right invasive carcinoma with [...] present; no menses while on Depo provera. Review of Systems Constitutional: Positive for activity change. Very tired by ADL's., not working due to fatigue. HENT: Negative for nosebleeds. Eyes: Negative. Respiratory: Negative. Gastrointestinal: Positive for anal bleeding and rectal pain. Endocrine: Negative. Genitourinary: Negative. Musculoskeletal: Negative. Skin: Negative. Allergic/Immunologic: Negative. Neurological: Negative. Psychiatric/Behavioral: Negative. Objective: Physical Exam Vitals and nursing note reviewed. Constitutional: General: She is not in acute distress. HENT: Head: Normocephalic. Right Ear: External ear normal. Left Ear: External ear normal. Nose: No congestion or rhinorrhea. Comments: Erythema and edema inner left nares with scab. Eyes: General: No scleral icterus. Conjunctiva/sclera: Conjunctivae normal. Cardiovascular: Rate and Rhythm: Normal rate. Pulses: Normal pulses. Pulmonary: Effort: Pulmonary effort is normal. Chest: Breasts: Right: Mass present. No nipple discharge, skin change or tenderness. Abdominal: General: Abdomen is flat. Genitourinary: Musculoskeletal: General: Normal range of motion. Cervical back: Normal range of motion. Skin: General: Skin is warm and dry. Neurological: General: No focal deficit present. Mental Status: She is alert and oriented to person, place, and time. Psychiatric: Mood and Affect: Mood normal. Behavior: Behavior normal. Thought Content: Thought content normal. Judgment: Judgment normal. labs reviewed and discussed with Alis, Pl count 65K, anc ok Assessment and Plan: No problem-specific Assessment & Plan notes found for this encounter. #1 Breast cancer--30 yo with ER+ her2 + breast cancer , + clinical response to NAC. Mass still present but skin changes resolved. MRI planned next week and f/u with Dr. Hunt on 12/12. Pre and post photos are in patients chart to assist with tumor board discussion regarding optimal surgical management. Alis is interested in breast conservation if possible. #2 Chemotherapy--monitoring for toxicity--thrombocytopenia, will dose reduce carbo and docetaxel today. #3 Fatigue--grade 2. Should start improving, especially with dose reductions. #4 Menopausal symptoms--stable. #5 Bone health--chronic LBP, worse with inactivity. She can return to her chiropractor as needed. #6 Medication management --dexamethasone and peridex renewed. Desitin to [place]-anal area. Plan: Cycle 6 TCHP today with dose reductions as above F/u approximately 4-6 wks, coordinate with post op visit to review pathology documented in this encounter Plan of Treatment Upcoming Encounters Date Type Department Care Team (Late st Contact Info) Description 02/13/2025 1:00 PM EDT Office Visit Radiation Oncology at [address] [address] Eleonora Mensah MD [facility] [place] [address] documented as of this encounter Visit Diagnoses Diagnosis Malignant 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, estrogen receptor positive documented in this encounter Care Teams Cognos Lead Relationship Specialty Start Date End Date Charleen Williamson APRN [address] [place] [address] PCP - General Family Medicine 06/29/20 documented as of this encounter
--- OUTSIDE RECORDS SUMMARY | 2024-05-09 14:04 | XMS_ITS | Encounter Summary ---
Author Organization [facility] Address [facility] [place] [address] Care Team Providers Care Building Certifier Name Role Phone Charleen Williamson APRN Primary Care Provider +1 [phone] Encounter Details Date Type Department Care Team (Latest Contact Info) Description 01/16/2021 Multidisciplinary Ca re Committee [place] [phone] Tyra Cornejo MD [facility] [place] [address] Social History Tobacco Use Types Packs/Day Years [...] of this encounter Progress Notes * Tyra Cornejo MD - 01/16/2021 11:30 AM EDT Breast - Tumor Board Note Date Presented: 01/16/2021 Presenting Physician: Saturnino Hunt Diagnosis/Tumor Site: Is this Metastatic Disease: No Synopsis of History/HPI: Date Presented: Synopsis of History/HPI:30 yo woman with large central right breast mass with skin involvement and erythema, her2+ Imaging:photograph shows <1/3 of breast involved with erythema, not classic inflammatory appearance Pathology/Histology: IDCA er/pr + her2 pos Stage:[id number] grade 2/3 stage IB ; anatomic stage pending surgical path Surgery 12/03/20: Imaging:excellent radiographic response to NAC Pathology/Histology: 13 cm tumor bed with significant treatment effect, down to 1 cm. No epidermal involvement or treatment effect. Stage:cT3N1 [id number] Clinical Data (Exams, Labs, etc.): pre-op US identified an abnormal node without a clip in it, so this was wire loc'd; blue dye and technetium did not identify sentinel nodes, wired node was removed. Molecular Pathology Results:HER2 FISH + Clinical Trial Availability: [id number] RT vs cALND; and [id number] TDM-1 + tucatinib vs TDM-1 for residual node + ER+/ HEr2+ disease after NAC Options Discussed: Presentation photograph prior to starting neoadjuvant chemotherapy reviewed again showing 8 cm erythema discretely and directly overlying the tumor mass, covering <30% of the breast. No visual or pathologic skin involvement, therefore clinical stage prior to NAC was cT3N1. Recommendations: Radiation Oncology consult, discuss enrollment on [id number] , also consider [id number] after surg/ RT. DISCLAIMER: The patient was discussed and the tumor board made recommendations but it is ultimatelyup to the treatment provider(s) and the patient to determine the patient???s care. documented in this encounter Plan of Treatment Upcoming Encounters Date Type Department Care Team (Late st Contact Info) Description 02/13/2025 1:00 PM EDT Office Visit Radiation Oncology at [address] [address] Eleonora Mensah MD [facility] [place] [address] documented as of this encounter Visit Diagnoses Not on filedocumented in this encounter Care Teams Building Certifier Relationship Specialty Start Date End Date Charleen Williamson APRN [address] [place] [address] PCP - General Family Medicine 06/29/20 documented as of this encounter
--- OUTSIDE RECORDS SUMMARY | 2024-05-09 14:04 | XMS_ITS | Encounter Summary ---
[place] [address] Care Team Providers Care Market Research Specialist Name Role Phone Charleen Williamson APRN Primary Care Provider +1 -[phone] Reason for Visit * Reason Onset Date Comments Diarrhea 12/10/2020 Encounter Details Date Type Department Care Team (Late st Contact Info) Description 12/10/2020 Telephone Hematology [place] [phone] Marisela Gonzalez DIGITAL MEDIA DESIGNER ROOM Diarrhea Social History Tobacco Use Types Packs/Day [...] Telephone Encounter - Marisela Gonzalez RN - 12/10/2020 8:27 AM EDT Message received from secretary administrative assistant: [phone] - patient called - states the medications she has fordiarrhea aren't helping - hoping something else can be called in to help - [facility] in [place], [place] Per Tyra Cornejo MD in response to msg from regional marketing manager fellow: It is also a common side effect of pertuzumab. Her chemo doses were reduced for the last cycle fortunately so I hope this resolves fromhere. Ill copy Barbara Cain and Bea Holt to check in with her tomorrow to make sure she is hydrating well. May also benefit from metamucil or citrucel to bulk up her stools. Diagnosis/Treatment- carbotaxel, paclitaxel, pertuzumab, trastuzumab Spoke w/ pt who stated that she spoke w/ the fellow on Thursday and that was the worst day for diarrhea. She wasn't drinking as much over the weekend as she was tired of having diarrhea but today sshe's had about 40 oz water/flavored water. Stools are still liquid but not as bad, only 3-4 stools in the last 24hrs. Over the weekend had about 10 loose stools. Stools were varying amounts of liquid, no blood or black stools. No abd distention, firmness, bloating or pain. Last time she took imodium oratropine was last night. Denies dizziness or lightheadedness w/ position change, urine is clear or slightly yellow. She has been forcing herself to eat, ate breakfast and lunch today. No appetite andis eating less than usual. No fever. Has two little sore spots on her tongue, no white patches in mouth. Denies any other complaints including pain, SOB, emesis. Some nausea but not taking compazine. Plan: as above- metamucil, citrucel to help bulk up stool, push fluids, discussed ways to increase fluid intake (smoothies, jellow, popsicles) and need to take in liquids that contained electrolytes nikita as wasn't eating well, imodium /lomotil as prescribed, discussed that her diarrhea would take time to resolve as would the mouth sores however both were expected side effects from her treatment, encouraged baking soda/salt water rinses in add't to her mouthwash, clinic will check in later this week. Pt verbalized agreement with plan and knows to call clinic with any concerns and/or questions. documented in this encounter Plan of Treatment Upcoming Encounters Date Type Department Care Team (Late st Contact Info) Description 02/13/2025 1:00 PM EDT Office Visit Radiation Oncology at [address] [address] Eleonora Mensah MD [facility] [place] [address] documented as of this encounter Visit Diagnoses Not on filedocumented in this encounter Care Teams Market Research Specialist Relationship Specialty Start Date End Date Charleen Williamson APRN [address] [place] [address] PCP - General Family Medicine 06/29/20 documented as of this encounter
--- OUTSIDE RECORDS SUMMARY | 2024-05-09 14:04 | XMS_ITS | Encounter Summary ---
[place] [address] Care Team Providers Care Data Keyer Name Role Phone Charleen Williamson APRN Primary Care Provider +1 -[phone] Encounter Details Date Type Department Care Team (Latest Contact Info) Description 01/14/2021 10:00 AM EDT Clinical Support [place] [phone] Change or removal of drains Social History Tobacco Use Types Packs/Day Years [...] this encounter Patient Instructions * Patient Instructions* Halina Jin RN - 01/14/2021 10:00 AM EDT Alis Silva 01/14/2021 9:32 AM Contact information for the General Surgery Nurses After clinic hours, weekday holidays or on the weekend please call and ask to speak to the Doctor consumer services consultant ?? You need to keep your drain site covered with bacitracin and a gauze dressing while it is draining. This usually lasts 24-48 hours. Your dressing needs to be changed when it becomes wet. A small amount of drainage is normal. ?? You may develop a seroma (which is a collection of fluid) at or around the drain site. A seroma may be firm or soft and can vary in shapes and size. This is not a medical emergency, but we would like a call if this develops. Call if you develop any of the followin. Fever greater than 100.5 or chills. 2. Continual drainage from your drain site. 3. Redness and or swelling of your drain site or surgical incision (mingo the area with a permanent marker so you can tell if it is worsening). 4. Pain that is not controlled with Tylenol (acetaminophen), Advil (ibuprofen) or prescription painmedication. . documented in this encounter Progress Notes * Halina Jin RN - 01/14/2021 10:00 AM EDT Date: 01/14/2021 Time: 9:55 AM Procedure:Right simple mastectomy Surgeon: Dr. Eulalio Hunt Drain Site: Right chest wall Amount of Time Drain was in: 12 days Drainage volume in past 24 hours: 20ml Documentation of drain removal: The patient is identified as Alis Silva. Alis exposed the drain site and was comfortably positioned on exam table. I explained as I proceeded what I was doing. The suction on the collection bulb was released and the suture cut thus removing the suture from the skin. Alis was instructed to take a deep breath;at which time the drain was easily removed intact. Bacitracin ointment on dry sterile gauze was placed at the drain site and secured with tape. Alistolerated the procedure with well. Patient Education: Alis Silva was instructed to keep the drain site covered with bacitracin and gauze while it continues to drain (usually 24-48 hours). The dressing should be changed when wet. I reviewed with Alis the following information which the received in a written form. All questions were answered and concerns addressed. 1. You will need to cover your drain site while it is draining. This usually lasts 24-48 hours. Your dressing needs to be changed when it becomes wet. A small amount of drainage is normal. Apply a small amount of Bacitracin ointment to the gauze and secure with tape over your drain site. 2. You may develop a seroma (a collection of fluid) at or around the drain site. A seroma may be firm or soft and can vary in shapes and size. This is not a medical emergency, but it is something to call the General Surgery nurses to discuss further instructions. The nurse's phone number is [phone]. 3. Call the General Surgery nurses or the General Surgery Doctor consumer services consultant if you develop any of the following: A. Fever greater than 100.5 or chills. B. Continual drainage from your drain site. C. Redness / swelling of your drain site or surgical incision. Should you develop redness mingo the area with a permanent marker so you can tell if it is worsening. D. Pain that is not controlled with Tylenol (acetaminophen), Advil (ibuprofen) or prescription painmedication. documented in this encounter Plan of Treatment Upcoming Encounters Date Type Department Care Team (Late st Contact Info) Description 02/13/2025 1:00 PM EDT Office Visit Radiation Oncology at [address] [address] Eleonora Mensah MD [facility] [place] [address] documented as of this encounter Visit Diagnoses Diagnosis Change or removal of drains Other specified aftercare following surgery documented in this encounter Care Teams Data Keyer Relationship Specialty Start Date End Date Charleen Williamson APRN [address] [place] [address] PCP - General Family Medicine 06/29/20 documented as of this encounter
--- OUTSIDE RECORDS SUMMARY | 2024-05-09 14:04 | XMS_ITS | Encounter Summary ---
[place] [address] Care Team Providers Care Hearing Therapy Director Name Role Phone Charleen Williamson APRN Primary Care Provider +1 [phone] Encounter Details Date Type Department Care Team (Late st Contact Info) Description 12/07/2020 Orders Only Hematology [place] [phone] Karen Trevizo DO Social History Tobacco Use Types Packs/Day Years [...] as of this encounter Progress Notes * Karen Trevizo DO - 12/07/2020 6:46 PM EDT Patient ID: Alis Silva : [id number] Call from: Alis Rosio Castus (self) Alis Silva is a 30 yo f with ER+ her2 + breast cancer who is being treated by Dr. Cornejo with [facility]. She is calling today because she has had diarrhea in the past few days. She reports that she had about 10 bowel movements that were loose in the last 24 hours. She has taken 8 Imodium's and3 doses of atropine which have both together helped her diarrhea. She reports that it is now improved. She has had diarrhea after her previous cycles but it was not this bad. She also reports some nausea but no vomiting. She is also had poor appetite. She has been checking her temperatures and has continued to be afebrile, she denies any abdominal pain but reports that her stomach feels upset. She has no other complaints. I explained to Alis that this is a possible side effects especially with the docetaxel. I explained that a doses of Imodium is a lot and that we should avoid taking any more. Her diarrhea is well controlled for now but I recommended that if it comes back or if she feels dehydrated or that she is unable to make up for the fluid loss in her diarrhea that she should proceed to the emergency departm ent for IV fluid administration and work-up of her diarrhea and why it is not responding to the administered medication. Alis voiced understanding of this plan and she agrees. I told her that she does not have to come to the emergency department at and that she can be seen in her local department. I told her that I would remain on-call throughout the night. She should call me back if she hasany questions or any worsening of her symptoms Alis had also called earlier for a refill on her Compazine but it was sent to the wrong pharmacy so I refilled it to her local pharmacy instead. Karen Trevizo DO Fellow, Hematology and Medical Oncology [facility] Pager: [phone], 12/07/20, 6:48 PM CC: Dr. Cornejo. documented in this encounter Plan of Treatment Upcoming Encounters Date Type Department Care Team (Late st Contact Info) Description 02/13/2025 1:00 PM EDT Office Visit Radiation Oncology at [address] [phone] Eleonora eMnsah MD [facility] [place] [address] documented as of this encounter Visit Diagnoses Not on filedocumented in this encounter Care Teams Hearing Therapy Director Relationship Specialty Start Date End Date Charleen Williamson APRN [address] [place] [address] PCP - General Family Medicine 06/29/20 documented as of this encounter
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
--- OUTSIDE RECORDS SUMMARY | 2024-05-09 14:04 | XMS_ITS | Encounter Summary ---
[place] [address] Care Team Providers Care Admin Prog Coord Name Role Phone Charleen Williamson APRN Primary Care Provider [phone] [phone] Reason for Visit * Reason Comments Patient Education Encounter Details Date Type Department Care Team (Latest Contact Info) Description 12/19/2020 9:30 AM EDT Clinical Support [place] [phone] Other specified counseling Social History Tobacco Use Types Packs/Day Years [...] as of this encounter Progress Notes * Reema Champion RN - 12/19/2020 9:30 AM EDT Alis Silva presents to the General Surgery Clinic to receive pre-operative teaching on drain care. She has completed a course of chemo for right breast cancer, and she is scheduled for: 01/03/21: Right simple mastectomy with sentinel nodes with Dr. Hunt A Cedric Mitchell drain model was used to teach drain care along with the milking/ stripping techniques. Written information was reviewed with and given to Alis along with a tally sheet to keep trackof amounts, a marsupial pouch and a measuring cup. Post Breast Surgery Exercises were reviewed and given to Alis. A Visiting Nurse referral was offered to Alis. She accepts referral to [facility] for first visit date of 01/04/21 to assist with drain care and general post-op care: [facility] REFERRAL FORM Referral Date12/19/2020 New Admission: x Re-Admission: Resumption of Care: PATIENT INFORMATION Last Name: First Name: Alis Mailing Address: same Service Address: [address] [place] [address] City: [place] State: [place] Zip: [address] Emergency Contact: renetta Mercedes Contact : 89 Gender: female Marital Status: REFERRAL INFORMATION Visit to occur within 24 hours of discharge Requested First Visit Date: 01/04/21 Home Care: x Admit Date: outpatient surgery 01/03/21 SN: x PT: OT: ST: Discharge Date: REFERRAL SOURCE INFORMATION [facility] 4 L Address: [address] [facility] City: [place] State: [place] Zip: [address] Referral Contact:General Surgery Nurses MD for 1st visit: Eulalio villalba MD whose signature will cover the order(s) for the next 60 days: same Primary Care Physician: Charleen Williamson APRN Phone: DIAGNOSES Primary Diagnosis: RIGHT breast cancer Surgical Procedures: RIGHT simple mastectomy Date: 07/11/20 Date: 01/03/21 INSURANCE INFORMATION (attached) Medicaid#: Eff. Date: Group#: Policy#: CLINICAL INFORMATION and HOME CARE ORDERS Medication and Allergies: Attached Referral Taken By: Signature: Procedure: right simple mastectomy (1 MARSHA drain) Expected Date: 01/03/21 Home care orders: RN visits initially once a day for post-operative assessment. Home Care Orders: Retirement (RN) ?? Inspect incision and drain site daily for signs and symptoms of infection. (Hot, red, swelling, pain, bleeding or drainage noted) ?? Remove original dressing on day 2; no further dressing necessary unless draining. ?? Teach dressing care/changes as appropriate. ?? Do not use any products on incision or drain site unless instructed. ?? Do not submerge the incision for 2 weeks or drain site for 2 weeks after removal. ?? Assess bowel functions: Stool softeners and laxatives are recommended to prevent constipation while using narcotics. ?? Assess bladder function: Urinary retention requires quick assessment, treatment and follow up. Call Doc concrete bucket hooker or Clinic ?? Pain assessment 0-10 scale: Teach narcotic awareness (keep medications locked up, do not discussmedications with people who do not need to know), teach compliance, weaning, side effects and risk factors. ?? Use ibuprofen and acetaminophen alternating- Do not exceed maximum 24 hour dose. ?? Teach comfort measures: rest, ice, warmth, elevation, and positioning. ?? Reinforce drain teaching (i.e. emptying the drain, care of the drain, stripping the tubing and monitoring the output). ?? Avoid repetitious movement of affected extremity while the drain is in. ?? If drain amounts increase, assess activity; curtailing activity of affected extremity may resultin a decrease of drain output. ?? Teach troubleshooting techniques for drain and site care. ?? When the drain output is less than 30 cc's in a 24 hour period for 2 days; call to arrange drainremoval. ?? When the drain has been removed, apply bacitracin dressings to the site to absorb drainage. ?? Assess for and teach about seroma. ?? Teach and reinforce after breast surgery exercises per instruction sheet. ?? Assess nutritional status and encourage the following daily goals. ?? Daily multivitamin ?? 60 grams of protein consumption ?? 64 ounces of hydrating fluids ?? Teach the importance of ambulation, ankle exercises, deep breathing and coughing. ?? Teach self-assessment for infection, pneumonia, deep vein thrombosis and other post-operative complications. documented in this encounter Plan of Treatment Upcoming Encounters Date Type Department Care Team (Late st Contact Info) Description 02/13/2025 1:00 PM EDT Office Visit Radiation Oncology at [address] [phone] Eleonora Mensah MD [facility] [place] [address] documented as of this encounter Procedures Procedure Name Priority Date/Time Associated Diagnosis Comments ORDS - PROVIDER CARE SCAN 12/19/2020 12:00 AM EDT documented in this encounter Results * SCAN DOC: ORDS - PROVIDER CARE (12/19/2020 12:00 AM EDT) Unknown MEDIA MGR SCAN EXT O RDR/RSLT documented in this encounter Visit Diagnoses Diagnosis Other specified counseling documented in this encounter Care Teams Admin Prog Coord Relationship Specialty Start Date End Date Charleen Williamson APRN [address] [place] [address] PCP - General Family Medicine 06/29/20 documented as of this encounter
--- OUTSIDE RECORDS SUMMARY | 2024-05-09 14:04 | XMS_ITS | Encounter Summary ---
Author Organization [facility] Address [facility] [place] [address] Care Team Providers Care Drop Man Name Role Phone Clay, Charleen White APRN Primary Care Provider [phone] [phone] Encounter Details Date Type Department Care Team (Latest Contact Info) Description 12/26/2020 Multidisciplinary Ca re Committee Hematology [place] [phone] Trya Cornejo MD [facility] DR HEM[place]OLOGY [place] [address] Social History Tobacco Use Types Packs/Day Years [...] Progress Notes * Tyra Cornejo MD - 12/26/2020 11:59 PM EDT Breast - Tumor Board Note Date Presented: 01/04/2021 12/26/20 Presenting Physician: Marilee Diagnosis/Tumor Site: Is this Metastatic Disease: No Synopsis of History/HPI:30 yo woman with large central right breast mass with skin involvement and erythema, her2+ Imaging:photograph shows <1/3 of breast involved with erythema, not classic inflammatory appearance Pathology/Histology: IDCA er/pr + her2 pos Stage:[id number] grade 2/3 stage IB ; anatomic stage pending surgical path Clinical Data (Exams, Labs, etc.): Molecular Pathology Results:n/a Clinical Trial Availability: none Options Discussed: mastectomy + axillary dissection vs targeted node excision + SLN Recommendations: Radiation Oncology consult reasonable to avoid axillary dissection and proceed with targeted node excision + SLN DISCLAIMER: The patient was discussed and the tumor board made recommendations but it is ultimatelyup to the treatment provider(s) and the patient to determine the patient???s care. documented in this encounter Plan of Treatment Upcoming Encounters Date Type Department Care Team (Late st Contact Info) Description 02/13/2025 1:00 PM EDT Office Visit Radiation Oncology at [address] [phone] [address] [facility] [place] [address] documented as of this encounter Visit Diagnoses Not on filedocumented in this encounter Care Teams Drop Man Relationship Specialty Start Date End Date Charleen Williamson APRN [address] [place] [address] PCP - General Family Medicine 06/29/20 documented as of this encounter
--- OUTSIDE RECORDS SUMMARY | 2024-05-09 14:04 | XMS_ITS | Encounter Summary ---
Author Organization [facility] Address [facility] [place] [address] Care Team Providers Care Floor Waxer Name Role Phone Charleen Williamson APRN Primary Care Provider [phone] [phone] Reason for Visit * Auth/Cert Specialty Diagnoses [...] Expiration Date Visits Re quested Visits Authorized [id number] 1 1 Encounter Details Date Type Department Care Team (Latest Contact Info) Description 01/03/2021 9:16 AM EDT - 01/03/2021 10:46 AM EDT Hospital En[place] [phone] Eulalio Hunt MD [facility] [place] [address] Malignant neoplasm of right breast in female, [...] EDT Office Visit Radiation Oncology at [address] [phone] Eleonora Mensah MD [facility] [place] [address] documented as of this encounter Procedures Procedure Name Priority Date/Time Associated Diagnosis Comments MAMMO SPECIMEN RIGHT Routine 01/03/2021 2:46 PM EDT Malignant neoplasm of right breast in female, estrogen receptor positive, unspecified site of breast documented in this encounter Results * Mammo Specimen Right [...] who have questions please contact the health care support representative that requested your imaging first. ? Electronically signed by: Mili Whalen MD, [facility] ([phone]), at 01/03/2021 3:47 PM Narrative 01/03/2021 3:47 [...] clip. Eulalio Hunt MD IMG MAMMO ORDERABLES documented in this encounter Visit Diagnoses Diagnosis Malignant neoplasm of right breast in female, estrogen receptor positive, unspecified site of breast documented in this encounter Care Teams Floor Waxer Relationship Specialty Start Date End Date Charleen Williamson, SEAMING INSPECTOR [address] [place] [address] PCP - General Family Medicine 06/29/20 documented as of this encounter
--- OUTSIDE RECORDS SUMMARY | 2024-05-09 14:04 | XMS_ITS | Encounter Summary ---
[place] [address] Care Team Providers Care Nursing Home Manager Name Role Phone Charleen Williamson APRN Primary Care Provider +1 [phone] Reason for Visit * Reason Onset Date Comments Fatigue 12/04/2020 Encounter Details Date Type Department Care Team (Late st Contact Info) Description 12/04/2020 Telephone Hematology [place] [phone] Subha Holt RN Fatigue Social History Tobacco Use Types Packs/Day Years [...] Telephone Encounter - Subha Holt RN - 12/04/2020 8:46 AM EDT Images from the original note were not included. TRIAGE CALL Message received from accredited legal secretary: Received call from pt, transferred by accredited legal secretary who identified pt's name/ and provided MRN to RN. Message received from accredited legal secretary: Dafne Cabrera [facility] [place] Breast Call back [phone] Alis called with c/o a couple days of lethargy. She took her BP last night and it was on the low side (she couldn't remember the exact numbers) and she took her BP this morning and it was 111/75. Could you call and chat with her? She just wants to make sure this is normal for people that are on chemo and not something she needs to be concerned with. Diagnosis/current treatment:Breast cancer/ FinishedCARBOplatin / DOCEtaxel / TRASTuzumab / PERTuzumab 11/29; herceptin to begin 12/20 Call placed to patient. Identified via name and : Yes Symptom Review per conversation with caller: Feeling very low energy to do anything. Can't do anything for more than 5 minutes for more than 5 minutes without being SOB or fatigued. At it is 130/90. This AM about 111/75. Feeling so tired she needs to sit down, denies dizziness, and lightheadedness. HR 88 when she had the 111/75. Walking the dog she can feel her HR is sped up. Platelet count was 67 on 11/29. Provided bleeding precautions and reasons to call. Nose Bleed that does not stop with pressure, blood in stool, unusual bruising. Patient wonders if she should get labs again while she is in 12/07. Message sent to provider. Plan of Care and actions for worsening condition per discussion with PAYTON Hale, Telephone Triage for Oncology Nurses, 3rd Edition, ONC, [place] and [place], 2019 Barbara Cain PA Andrews, Patricia A, RN Thanks, I think OK to monitor for now. She is still within the timeframe for these to be expected side effects. Coming up on rose, her counts will likely be low. Can you call on to see how she is doing? If worsening or not improving, may add labs for 12/07. She should call us with any dizziness, lightheadedness, chest pain, SOB with rest, or bleeding. Pt/responsible caregiver able to read back and verbalize understanding of plan and intention to comply with plan/disposition: Yes Pt/responsible caregiver able to verbalize understanding of and intention to call clinic with any new or worsening signs or symptoms: yes Follow up needed? no Patient will monitor s/s and call if not feeling better by Thursday 12/07. documented in this encounter Plan of Treatment Upcoming Encounters Date Type Department Care Team (Late st Contact Info) Description 02/13/2025 1:00 PM EDT Office Visit Radiation Oncology at [address] [phone] Eleonora Mensah MD [facility] [place] [address] documented as of this encounter Visit Diagnoses Not on filedocumented in this encounter Care Teams Nursing Home Manager Relationship Specialty Start Date End Date Charleen Williamson APRN [address] [place] [address] PCP - General Family Medicine 06/29/20 documented as of this encounter
--- OUTSIDE RECORDS SUMMARY | 2024-05-09 14:04 | XMS_ITS | Encounter Summary ---
Author Organization [facility] Address [facility] [place] [address] Care Team Providers Care Community Health Agent Name Role Phone Charleen Williamson APRN Primary Care Provider [phone] Reason for Visit * Reason Comments Follow Up Surgery Encounter Details Date Type Department Care Team (Late st Contact Info) Description 01/16/2021 4:00 PM EDT Office [place] [address] Eulalio Hunt MD [facility] [place] [address] Malignant neoplasm of right breast in female, [...] Progress Notes * Eulalio Hunt MD - 01/16/2021 4:00 PM EDT Alis Silva is a 30-year-old woman who returns after neoadjuvant chemotherapy for a HER-2 positive right breast cancer and then right mastectomy and right axillary targeted node excision on January 03, 2021. She presented in June 2020 with a [...] breast mass showed invasive carcinoma, ER positive, IN positive and HER-2 positive. MRI showed a [...] was some dermal lymphovascular invasion seen. She now returns for a check. She had her drain taken out a couple days ago. She has no pain. On physical exam her skin is completely viable, her incision is nicely healed, there is no sign of infection or hematoma. She has a trace amount of fluid seroma underneath her inferior mastectomy flap. Impression: Alis is recovering well from her right mastectomy and targeted node excision. I gave her a copy of her pathology report and we reviewed it. We discussed her case in tumor board today. I demonstrated range of motion exercises for her and she has an appointment with physical therapy to go over range of motion. I asked her to start that a few days from now just to let things heal down a little bit further. I discussed with Alis that the standard next treatment with a positive node after neoadjuvant therapy would be to proceed with a completion axillary dissection. Our radiation oncologist will recommend adjuvant radiation therapy to the chest wall and mary basins. She is eligible for the [place] trial [id number] which randomizes patients to receive axillary dissection plus adjuvant radiation therapy versus adjuvant radiation therapy alone. I discussed the study with her and answered her questions. She read and signed the consent form and I gave her a copy of the signed consent form. Will wait to see which rx group she randomizes to. Will make sure she has a rad onc appointment. documented in this encounter Plan of Treatment Upcoming Encounters Date Type Department Care Team (Late st Contact Info) Description 02/13/2025 1:00 PM EDT Office Visit Radiation Oncology at [address] [address] Eleonora Mensah MD [facility] [place] [address] documented as of this encounter Visit Diagnoses Diagnosis Malignant neoplasm of right breast in female, estrogen receptor positive, unspecified site of breast documented in this encounter Care Teams Community Health Agent Relationship Specialty Start Date End Date Charleen Williasmon APRN [address] [place] [address] PCP - General Family Medicine 06/29/20 documented as of this encounter
--- OUTSIDE RECORDS SUMMARY | 2024-05-09 14:04 | XMS_ITS | Encounter Summary ---
[place] [address] Care Team Providers Care Airline Lounge Receptionist Name Role Phone Charleen Williamson APRN Primary Care Provider [phone] Reason for Visit * Reason Onset Date Comments Medication Refill 12/07/2020 Encounter Details Date Type Department Care Team (Late st Contact Info) Description 12/07/2020 Refill Hematology [place] [address] Subha Holt RN Social History Tobacco Use Types Packs/Day [...] Telephone Encounter - Subha Holt RN - 12/07/2020 8:41 AM EDT Images from the original note were not included. Message received from choke setter: Danni Ryan [facility] Hem Onc Triage Breast Good morning, Alis called today and would like a refill of her Compazine sent to [facility] in [place], [place]. She can be reached at [phone] if needed. Received request via [employer] for refill of compazine. Per review of medical record, refill is appropriate. Last prescribed 07/20/20 Script prepared and sent to provider for review, signature and escribe. documented in this encounter Plan of Treatment Upcoming Encounters Date Type Department Care Team (Late st Contact Info) Description 02/13/2025 1:00 PM EDT Office Visit Radiation Oncology at [address] [address] Eleonora Mensah MD [facility] [place] [address] documented as of this encounter Visit Diagnoses Not on filedocumented in this encounter Care Teams Airline Lounge Receptionist Relationship Specialty Start Date End Date Charleen Williamson APRN [address] [place] [address] PCP - General Family Medicine 06/29/20 documented as of this encounter
--- OUTSIDE RECORDS SUMMARY | 2024-05-09 14:04 | XMS_ITS | Encounter Summary ---
[place] [address] Care Team Providers Care Digital Solutions Architect Name Role Phone Charleen Williamson APRN Primary Care Provider [phone] Reason for Visit * Reason Onset Date Comments Medication Refill 12/19/2020 Encounter Details Date Type Department Care Team (Late st Contact Info) Description 12/19/2020 Refill [place] [address] Marisela Gonzalez ENGINE LATHE SET UP OPERATOR ROOM Social History Tobacco Use Types Packs/Day [...] Telephone Encounter - Marisela Gonzalez RN - 12/19/2020 3:26 PM EDT Message received from paralegal legal secretary: Call back [phone] Alis would like a refill of her trazodone sent to [facility] in [place], [place] My [facility] sent to pt for clarification on amount taking. Pt replied w/ myDH that she was taking 3/night. Last prescribed 3/24/21 Script pended to provider for review, signature and escribe. documented in this encounter Plan of Treatment Upcoming Encounters Date Type Department Care Team (Late st Contact Info) Description 02/13/2025 1:00 PM EDT Office Visit Radiation Oncology at [address] [address] Eleonora Mensah MD [facility] [place] [address] documented as of this encounter Visit Diagnoses Not on filedocumented in this encounter Care Teams Digital Solutions Architect Relationship Specialty Start Date End Date Charleen Williamson, END MAKER [address] [place] [address] PCP - General Family Medicine 06/29/20 documented as of this encounter
--- OUTSIDE RECORDS SUMMARY | 2024-05-09 14:04 | XMS_ITS | Encounter Summary ---
Author Organization [facility] Address [facility] [place] [address] Care Team Providers Care Labor Contract Analyst Name Role Phone Charleen Williamson APRN Primary Care Provider [phone] Reason for Visit * Reason Comments Follow-up Encounter Details Date Type Department Care Team (Late st Contact Info) Description 12/19/2020 8:30 AM EDT Office Visit Hematology [place] [address] Eulalio Hunt MD [facility] [place] [address] Malignant neoplasm of central portion of right [...] Sign Reading Time Taken Comments Blood Pressure 146/85 12/19/2020 8:45 AM EDT Pulse 89 12/19/2020 8:45 AM EDT Temperature 36.4 ??C (97.5 ??F) 12/19/2020 8:45 AM ED T Respiratory Rate 17 12/19/2020 8:45 AM EDT Oxygen Saturation 97% 12/19/2020 8:45 AM EDT Inhaled Oxygen Concentration - - Weight 89.9 kg (198 lb 3.2 oz) 12/19/2020 8:45 A M EDT Height 174.7 cm (5' 8.78) 12/19/2020 8:45 AM ED T Body Mass Index 29.46 12/19/2020 8:45 AM EDT documented in this encounter Progress Notes * Eulalio Hunt MD - 12/19/2020 8:30 AM EDT Alis Silva is a 30-year-old woman who returns after neoadjuvant chemo for Her-2 and ER positiveright breast cancer. In June 2020 She had a mammogram which showed a 2.7 cm right retroareolar mass with calcificationsand some skin thickening. On ultrasound a 2.5 cm mass was seen at 11:00 2 cm from the right nipple. Core biopsy showed invasive carcinoma, ER positive, CA positive and HER-2 positive. On examination of her right breast in June she had an 8 x 5 cm area of erythema over the skin thatis present around the areola. There is pitting edema of the skin in that area also. Her nipple is inverted. There is a 5 x 4 cm mass present underneath the entire areola. The areolar skin is really not movable over the mass. The mass is movable on the chest wall. Right axillary ultrasound showed 1 lymph node with that was 8 mm in diameter but had a thickened cortex. Core biopsy of that was positive for cancer. MRI showed an extensive right breast cancer involving the nipple. MRI also showed a suspicious left breast mass: core bx: benign. Metastatic work-up has included a bone scan and CT that were negative for metastatic disease. She has a family history of breast cancer in her paternal grandmother who developed breast cancer in her 80s. A paternal aunt had ovarian cancer. Alis is not of Ashkenazi Latter-Day heritage. Genetic testing: MUTYH mutation: increased risk colon cancer: recommend colos at age 27. She is G0, P0. She received 6 cycles of TCHP with egg preservation. F/U MRI: The main mass on MRI decreased from 6 X 4 X 2.7 to 3.7 X 2 X 2 cm. The tumor continues to involve the base of the nipple and the areaola, especially at the infero-lateral aspect. Skin thickening can still be seen on MRI. The second mass identified on the pre-chemo MRI: 1.7 cm 10:00 8 cm from nipple, is no longer seen on MRI. Current medications: Inderal and hydroxyzine. She has no known drug allergies. Past surgical history significant for some oral surgery. Social history: she works on a [employer] outside of [facility]. She is here with her significant other. His name is Elmer. Review of systems: negative for cardiac, pulmonary, renal symptoms. Rest of ROS negative. On physical exam she is alert and oriented. In general she appears anxious. BMI is 29. Lungs are clear. Heart is a regular rhythm. There is a 3 cm mass in the right breast located at 9:00, 2 cm from nipple. There is 8 X 5 cm of erythema right breast with skin edema, centered on the nipple. There are no other masses in the right breast. There is no right axillary adenopathy. She has full range of motion of the right arm, no right arm edema. I personally reviewed her new MRI images. Impression: 29-year-old woman with ER positive Her-2 positive right breast cancer with a partial response to neoadjuvant chemo. She had erythema of the skin and edema of the skin over an 8 X 5 cm area at the time of my initial exam. Although this may not satisfy the NCCN criteria from inflammatory breast cancer (involvement of more than one third of the breast skin with erythema and edema), her involvement of the skin was very close to 1/3 of the breast and it has not significantly decreased in response to neoadjuvant chemo. The NCCN guideline for treatment of inflammatory breast cancer is total mastectomy without immediate reconstruction and axillary dissection. Given the persistent extent of tumor in her breast and skin, and persistent involvement of the nipple, I feel that mastectomy is certainly required, and will plan on that, without immediate reconstruction. As for treatment of the axilla, she has not had bulky adenopathy; largest node was 8 mm, but it wasbiopsied pre-chemo and was positive for cancer. The axillary nodes are not palpable now and are notenlarged on post-chemo MRI. In the interest of minimizing the chance of arm edema, one could consider doing a sentinel node and target and excise the clipped node, as we would routinely do for patients after neoadjuvant chemo who do not have a diagnosis of inflammatory breast cancer. She would liketo limit the chance of arm edema. We recognize that she will be recommended to have chest wall and axillary XRT post-op, which should control any microscopic mary disease. [facility] now will plan to do a targeted node excision and sentinel node excision rather than axillary dissection. documented in this encounter Plan of Treatment Upcoming Encounters Date Type Department Care Team (Late st Contact Info) Description 02/13/2025 1:00 PM EDT Office Visit Radiation Oncology at [address] [address] Eleonora Mensah MD [facility] [place] [address] documented as of this encounter Visit Diagnoses Diagnosis Malignant 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, estrogen receptor positive documented in this encounter Care Teams Labor Contract Analyst Relationship Specialty Start Date End Date Charleen Williamson APRN [address] [place] [address] PCP - General Family Medicine 06/29/20 documented as of this encounter
--- OUTSIDE RECORDS SUMMARY | 2024-05-09 14:04 | XMS_ITS | Encounter Summary ---
Author Organization [facility] Address [facility] [place] [address] Care Team Providers Care Physical Testing Supervisor Name Role Phone Charleen Williamson APRN Primary Care Provider [phone] Reason for Referral * Diagnostic Test (Routine) - Closed Specialty Diagnoses / Procedures Referred By Contac t Referred To Contact Cardiology Diagnoses Malignant 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, estrogen receptor positive Procedures Echocardiogram Transthoracic([facility] or [facility]) Barbara Cain PA [facility] [place] [address] [facility] [place] [address] Referral ID Status Reason Start Date Expiration Date V isits Requested Visits Authorized [id number] Closed Specialty Service Requested 11/12/2020 11/12/2021 1 1 Reason for Visit * Diagnostic Test (Routine) - Closed Specialty Diagnoses / Procedures Referred By Contac t Referred To Contact Cardiology Diagnoses Malignant 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, estrogen receptor positive Procedures Echocardiogram Transthoracic([facility] or [facility]) Barbara Cain PA [facility] [place] [address] [facility] [place] [address] Referral ID Status Reason Start Date Expiration Date V isits Requested Visits Authorized [id number] Closed Specialty Service Requested 11/12/2020 11/12/2021 1 1 Encounter Details Date Type Department Care Team (Latest Contact Info) Description 12/06/2020 9:45 AM EDT - 12/06/2020 11:59 PM EDT Hospital Encounter Non-Invasive Cardiology Lab [facility] [place] [address] Tyra Cornejo MD [facility] [place] [address] Malignant neoplasm of central portion of right [...] EDT Office Visit Radiation Oncology at [address] [address] Eleonora Mensah MD [facility] [place] [address] documented as of this encounter Procedures Procedure Name Priority Date/Time Associated Diagnosis Comments ECHO COMPLETE W CONTRAST Routine 12/06/2020 11:53 AM EDT Malignant 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, estrogen receptor positive documented in this encounter Results * ECHO COMPLETE W CONTRAST (12/06/2020 11:53 AM EDT) EF 59 HEARTLAB SYSTEM Anatomical Region Laterality Modality Other 12/06/2020 Narrative 12/06/2020 12:29 PM EDT Procedure: ?Transthoracic Echocardiogram Patient: ?REYNA FORMAN ?(Age): 1990(30y) Med Rec#: ? [id number] ?Sex: ?F ? Site Loc: ? [facility] ?Ht / Wt: ??172.72(cm)/88.9 Pt. Loc: ?Echo Lab ?BSA: ?2.03 Study Date: ?? 12/06/2020 ?Pt. Type: Outpatient Tape: ? Referring: Tyra Cornejo Reading: Conrad Yeung ([id number]) Director Of Epidemiology: Sunshine Joseph Diagnosis: *Estrogen receptor positive status [ER+] (Z17.0) *Malignant neoplasm of central portion of right female breast (C50.111) *Patient with breast cancer, currently receiving TCHP, transitioning to year of anti-HER2 tx1 vial Optison given after port was accessed vy IV team BP: ? 123/70 SUMMARY: 1. The left ventricular chamber size is normal. There is normal global left ventricular systolic function with an EF of 59% and no wall motion abnormalities. 2. Right ventricular chamber size, wall thickness, and systolic function are within normal limits. 3. The cardiac valves appear structurally and functionally normal. 4. This is a normal echo. ??Compared to the images of June 2020, there has been no change. Findings ? : Study Quality: ? Technically limited Left Ventricle: ? The left ventricular chamber size is normal. ?Left ventricular wall thickness is normal. ?There is no evidence of LVOT obstruction. ?No ventricular septal defect is visualized. ?There is normal global left ventricular systolic function. ?The quantitative left ventricular ejection fraction by biplane Garcia's method is 54%. ?The quantitative left ventricular ejection fraction by 3-D rendering is 59%. ?There are no left ventricular segmental wall motion abnormalities. ?Doppler assessment is consistent with normal left sided filling pressure. Left Atrium: ? The left atrium is normal in size. Right Ventricle: ? Right ventricular chamber size, wall thickness, and systolic function are within normal limits. ?Pulmonary artery hypertension could not be assessed due to inadequate tricuspid regurgitation jet. Right Atrium: ? The right atrium appears normal. Aortic Valve: ? The aortic valve is trileaflet. The leaflets are thin with normal excursion. There is no aortic stenosis or regurgitation present. Mitral Valve: ? The mitral valve appears normal in structure and function. Tricuspid Valve: ? The tricuspid valve appears normal in structure and function. ?There is trace tricuspid regurgitation present. Pulmonic Valve: ? The pulmonic valve appears normal in structure and function. ?There is trace pulmonic regurgitation present. Pericardium: ? The pericardium appears normal and there is no evidence of a pericardial effusion. Aorta: ? The aortic root is normal in size. ?The ascending aorta is normal in size. Pulmonary Artery: ? The main pulmonary artery appears normal. Venous: ? The inferior vena cava appears normal in size. ?There is a greater than 50% respiratory change in the inferior vena cava dimension. Misc: ? The cardiac valves appear structurally and functionally normal. ?Two-dimensional echo, spectral Doppler and color Doppler performed. ?Optison contrast (one 3 ml vial) was used to enhance endocardial definition. Excess contrast was discarded. Chambers 2D ?Value ?Units (Range) ? RVIDd ??Base ? 3.8 ?cm ? RVIDd ??Mid (AP) ? 3.1 ?cm ? IVSd (2D) ? 0.93 ? cm ? LVPWd (2D) ?0.87 ? cm ? IVS:LVPW ratio (2D) 1.07 ? ratio ? RWT (2D) ?0.41 ? ratio ? RWT PW (2D) ? 0.4 ?ratio ? LVIDd (2D) ?4.34 ? cm ? LVIDs (2D) ?2.56 ? cm ? LVIDd (2D) index ?2.14 ? cm/m2 ? LVIDs (2D) index ?1.26 ? cm/m2 ? LV FS (2D) ?41.05 ?% ? EF Teichholz (2D) ?? 72.15 ?% ? Ao root diameter (2D2.81 ? cm (2.1 - 3.6) ? Ascending Ao ?2.62 ? cm (2 - 3.5) ? Volumes/Mass ?Value ?Units (Range) ? LA Area 4 CH ?14 ? cm2 (<21) ? LA ESV BP (A/L) inde15.95 ?ml/m2 ? RA AREA 4CH ? 13 ? cm2 ? LV ESV SP 4CH (MOD) 42.41 ?ml ? LV ESV SP 2CH (MOD) 44.55 ?ml ? LV EDV BP ? 94.49 ?ml ? LV ESV BP ? 43.88 ?ml ? LV EDV BP index ? 46.63 ?ml/m2 ? LV ESV BP index ? 21.66 ?ml/m2 ? BP EF (MOD) ? 53.56 ?% ? LV mass (2D) ?124.97 ? g ? LV mass (2D) index ??61.67 ?g/m2 ? Diastolic/Systolic Function ?Value ?Units (Range) ? MV E-wave Vmax ?0.89 ? m/sec ? MV deceleration msru571.05 ? msec ? MV A-wave Vmax ?0.73 ? m/sec ? MV E:A ratio ?1.22 ? ratio ? LV septal e' Vmax ?? 0.14 ? m/sec ? LV lateral e' Vmax ??0.19 ? m/sec ? LV average e' Vmax ??0.17 ? m/sec ? LV E:e' septal ratio6.35 ? ratio ? LV E:e' lateral rati4.68 ? ratio ? LV average E:e' rati5.39 ? ratio ? Aortic Valve ?Value ?Units (Range) ? LVOT diameter ? 1.97 ? cm ? LVOT Vmax ? 0.97 ? m/sec ? LVOT VTI ?16.05 ?cm ? LVOT peak gradient ??3.75 ? mmHg ? LVOT mean gradient ??2.84 ? mmHg ? SV LVOT ? 48.96 ?ml ? CO LVOT ? 6.82 ? l/min ? Cardiac index ? 3.37 ? l/min/m2 ? Tricuspid Valve ?Value ?Units (Range) ? TAPSE ? 2.2 ?cm ? Pulmonic Valve/Qp:Qs ?Value ?Units (Range) ? MD end-diastolic Vma1.25 ? m/sec ? Wall Motion: Segment Name ?Rest ? Base-Anteroseptal ?? Normal ? Base-Anterior ? Normal ? Base-Anterolateral ??Normal ? Base-Posterolateral Normal ? Base-Inferior ? Normal ? Base-Inferoseptal ?? Normal ? Mid-Anteroseptal ?Normal ? Mid-Anterior ?Normal ? Mid-Anterolateral ?? Normal ? Mid-Posterolateral ??Normal ? Mid-Inferior ?Normal ? Mid-Inferoseptal ?Normal ? Jermyn-Septal ? Normal ? Jermyn-Anterior ? Normal ? Jermyn-Lateral ?Normal ? Jermyn-Inferior ? Normal ? Jermyn-Tip ?Normal ? This report has been electronically signed by: Conrad Yeung M.D. ? 12/06/2020 12:28:43 Images reviewed and interpretation verified [facility] Cardiac Ultrasound Laboratory Procedure Note Conrad Yeung MD - 12/06/2020 Procedure: Transthoracic Echocardiogram Patient: REYNA HEMPHILL(Age): 1990(30y) Med Rec#: [id number] Sex: F Site Loc: [facility] Ht / Wt: 172.72(cm)/88.9 Pt. Loc: Echo Lab BSA: 2.03 Study Date: 12/06/2020 Pt. Type: Outpatient Tape: Referring: Tyra Cornejo Reading: Conrad Yeung ([id number]) Director Of Epidemiology: Sunshine Joseph Diagnosis: *Estrogen receptor positive status [ER+] (Z17.0) *Malignant neoplasm of central portion of right female breast (C50.111) *Patient with breast cancer, currently receiving TCHP, transitioning to year of anti-HER2 tx1 vial Optison given after port was accessed vy IV team BP: 123/70 SUMMARY: 1. The left ventricular chamber size is normal. There is normal global left ventricular systolic function with an EF of 59% and no wall motion abnormalities. 2. Right ventricular chamber size, wall thickness, and systolic function are within normal limits. 3. The cardiac valves appear structurally and functionally normal. 4. This is a normal echo. Compared to the images of June 2020, there has been no change. Findings : Study Quality: Technically limited Left Ventricle: The left ventricular chamber size is normal. Left ventricular wall thickness is normal. There is no evidence of LVOT obstruction. No ventricular septal defect is visualized. There is normal global left ventricular systolic function. The quantitative left ventricular ejection fraction by biplane Garcia's method is 54%. The quantitative left ventricular ejection fraction by 3-D rendering is 59%. There are no left ventricular segmental wall motion abnormalities. Doppler assessment is consistent with normal left sided filling pressure. Left Atrium: The left atrium is normal in size. Right Ventricle: Right ventricular chamber size, wall thickness, and systolic function are within normal limits. Pulmonary artery hypertension could not be assessed due to inadequate tricuspid regurgitation jet. Right Atrium: The right atrium appears normal. Aortic Valve: The aortic valve is trileaflet. The leaflets are thin with normal excursion. There is no aortic stenosis or regurgitation present. Mitral Valve: The mitral valve appears normal in structure and function. Tricuspid Valve: The tricuspid valve appears normal in structure and function. There is trace tricuspid regurgitation present. Pulmonic Valve: The pulmonic valve appears normal in structure and function. There is trace pulmonic regurgitation present. Pericardium: The pericardium appears normal and there is no evidence of a pericardial effusion. Aorta: The aortic root is normal in size. The ascending aorta is normal in size. Pulmonary Artery: The main pulmonary artery appears normal. Venous: The inferior vena cava appears normal in size. There is a greater than 50% respiratory change in the inferior vena cava dimension. Misc: The cardiac valves appear structurally and functionally normal. Two-dimensional echo, spectral Doppler and color Doppler performed. Optison contrast (one 3 ml vial) was used to enhance endocardial definition. Excess contrast was discarded. Chambers 2D Value Units (Range) RVIDd Base 3.8 cm RVIDd Mid (AP) 3.1 cm IVSd (2D) 0.93 cm LVPWd (2D) 0.87 cm IVS:LVPW ratio (2D) 1.07 ratio RWT (2D) 0.41 ratio RWT PW (2D) 0.4 ratio LVIDd (2D) 4.34 cm LVIDs (2D) 2.56 cm LVIDd (2D) index 2.14 cm/m2 LVIDs (2D) index 1.26 cm/m2 LV FS (2D) 41.05 % EF Teichholz (2D) 72.15 % Ao root diameter (2D2.81 cm (2.1 - 3.6) Ascending Ao 2.62 cm (2 - 3.5) Volumes/Mass Value Units (Range) LA Area 4 CH 14 cm2 (<21) LA ESV BP (A/L) inde15.95 ml/m2 RA AREA 4CH 13 cm2 LV ESV SP 4CH (MOD) 42.41 ml LV ESV SP 2CH (MOD) 44.55 ml LV EDV BP 94.49 ml LV ESV BP 43.88 ml LV EDV BP index 46.63 ml/m2 LV ESV BP index 21.66 ml/m2 BP EF (MOD) 53.56 % LV mass (2D) 124.97 g LV mass (2D) index 61.67 g/m2 Diastolic/Systolic Function Value Units (Range) MV E-wave Vmax 0.89 m/sec MV deceleration ehvx161.05 msec MV A-wave Vmax 0.73 m/sec MV E:A ratio 1.22 ratio LV septal e' Vmax 0.14 m/sec LV lateral e' Vmax 0.19 m/sec LV average e' Vmax 0.17 m/sec LV E:e' septal ratio6.35 ratio LV E:e' lateral rati4.68 ratio LV average E:e' rati5.39 ratio Aortic Valve Value Units (Range) LVOT diameter 1.97 cm LVOT Vmax 0.97 m/sec LVOT VTI 16.05 cm LVOT peak gradient 3.75 mmHg LVOT mean gradient 2.84 mmHg SV LVOT 48.96 ml CO LVOT 6.82 l/min Cardiac index 3.37 l/min/m2 Tricuspid Valve Value Units (Range) TAPSE 2.2 cm Pulmonic Valve/Qp:Qs Value Units (Range) MD end-diastolic Vma1.25 m/sec Wall Motion: Segment Name Rest Base-Anteroseptal Normal Base-Anterior Normal Base-Anterolateral Normal Base-Posterolateral Normal Base-Inferior Normal Base-Inferoseptal Normal Mid-Anteroseptal Normal Mid-Anterior Normal Mid-Anterolateral Normal Mid-Posterolateral Normal Mid-Inferior Normal Mid-Inferoseptal Normal Jermyn-Septal Normal Jermyn-Anterior Normal Jermyn-Lateral Normal Jermyn-Inferior Normal Jermyn-Tip Normal This report has been electronically signed by: Conrad Yeung M.D. 12/06/2020 12:28:43 Images reviewed and interpretation verified [facility] Cardiac Ultrasound Laboratory Tyra Cornejo MD ECHO ORDERABLES documented in this encounter Visit Diagnoses Diagnosis Malignant 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, estrogen receptor positive documented in this encounter Administered Medications Inactive Administered Medications - up to 3 most recent administrations Medication Order MAR Action Action Date Dose Rate Site perflutren protein-A microsphers (Optison) (0.22 mg/mL) injection 0.5 mL 0.5 mL, Intravenous, ONCE PRN, 1 dose, Starting on Alannah 12/06/20 at 1153, Until Alannah 12/06/20 at 1153, for enhancement of sub-optimal echo images, Echo Lab (Intra-Procedure), Routine Given 12/06/2020 11:53 AM EDT 0.5 mLs documented in this encounter Care Teams Physical Testing Supervisor Relationship Specialty Start Date End Date Charleen Williamson APRN [address] [place] [address] PCP - General Family Medicine 06/29/20 documented as of this encounter
--- OUTSIDE RECORDS SUMMARY | 2024-05-09 14:04 | XMS_ITS | Encounter Summary ---
[place] [address] Care Team Providers Care Oven Tender Bagels Name Role Phone Charleen Williamson APRN Primary Care Provider [phone] Reason for Visit * Reason Onset Date Comments Medication Refill 11/13/2020 Encounter Details Date Type Department Care Team (Late st Contact Info) Description 11/13/2020 Refill Hematology [place] [address] Marisela Gonzalez, CHILD AND YOUTH PROGRAM ASSISTANT ROOM Social History Tobacco Use Types Packs/Day [...] Telephone Encounter - Marisela Gonzalez RN - 11/13/2020 8:00 AM EDT Message received from press secretary: Call back [phone] Alis would like a refill of her lorazepam sent to [email or web address] in [place], [place]. She is down to 2pills. Last prescribed 07/20/20 Per 11/08 note from Barbara Cain PA-C: Antiemetic plan: ? Premedications: Cinvanti, Aloxi ? Home regimen: ?? Dexamethasone 4 mg for 2-3 days, followed by 2 mg for 1-3 days Compazine and/or Zofran and/or Ativan PRN. Spoke w/ pt who stated that she's been using compazine in addition to the ativan for nausea control. She hasn't used the ondansetron at all as it hadn't helped her nausea last cycle. Her nausea is worse the first few days after chemo and she takes the compazine QID those days along w/ ativan 'a couple times/day'.Has taken the compazine once today and at present nausea controlled. No emesis. Trying to stay well hydrated. Otherwise - she is slightly constipated but took a laxative. She had 'a bitof rib pain' the first few days after chemo, has mostly resolved now. For the pain she didn't take anything as 'otc meds tend to upset my stomach'. Plan: will send ativan refill to prescriber for review, signature and escribe; discussed need to manage constipation to avoid worsening nausea, discussed use of heat or ice for rib pain and to call clinic when occurs so assessment and treatment plan can be made, encouraged hydration Pt verbalized agreement with plan and knows to call clinic with any concerns and/or questions. documented in this encounter Plan of Treatment Upcoming Encounters Date Type Department Care Team (Late st Contact Info) Description 02/13/2025 1:00 PM EDT Office Visit Radiation Oncology at [address] [address] Eleonora Mensah MD [facility] DR RADIATION ONCOLOGY [place], [place] [id number] documented as of this encounter Visit Diagnoses Not on filedocumented in this encounter Care Teams Oven Tender Bagels Relationship Specialty Start Date End Date Charleen Williamson APRN [address] [place] [address] PCP - General Family Medicine 06/29/20 documented as of this encounter
--- OUTSIDE RECORDS SUMMARY | 2024-05-09 14:04 | XMS_ITS | Encounter Summary ---
[place] [address] Care Team Providers Care Wireless Telegrapher Name Role Phone Charleen Williamson APRN Primary Care Provider [phone] Reason for Visit * Reason Onset Date Comments Nausea 11/15/2020 Fatigue 11/15/2020 Encounter Details Date Type Department Care Team (Late st Contact Info) Description 11/15/2020 Telephone Hematology [place] [id number] Subha Holt RN Nausea; Fatigue Social History Tobacco Use Types Packs/Day [...] Telephone Encounter - Subha Holt RN - 11/15/2020 8:29 AM EDT Message received from real estate legal secretary: Dafne Cabrera [facility] Hem Onc Triage Breast Call back [phone] Alis called with c/o upset stomach. Woke up this morning around 5am with upset stomach, drank some water and immediately vomited back up. Tried small bite of qatari muffin and some Gatorade which stayed down. She's wondering if there is something she's able to take in addition to the compazine for upset stomach. She also mentioned general feeling of lethargy and weakness. Noticed that even taking her dog out for a short walk makes her exhausted and also causes her leg muscles to ache/cramp. She's wondering if this is related to chemo or something else. CARBOplatin / DOCEtaxel / TRASTuzumab / PERTuzumab Cycle 5/6 11/13. Nausea and soft stool tarted yesterday. Stomach is better now but was worse in AM. Vomited once this morning. Threw up all the water she drank. Took compazine this morning. Yesterday soft stool and on this AM. Is taking imodium. Imodium is keeping that in check. Not very hungry. Eating about 75% of her usual. Drinking about 8 8oz.glasses of water and gator aid. Did not take as much steroid this time around per Barbara changed dosing 2pills 1- 3 days and 1 pill 1-3 days. She wonders if that is why she feels worse. Feeling weak and lethargic. Just walking the dogs wears her out. No fevers, denies light headed ness, dizziness. We discussed taking compazine at first sign of nausea or upset stomach, don't wait until she is throwing up. Take imodium as needed. Sip fluids, don't gulp. Gulping fluids can cause you to throw it back up. Rest. This is cycle 5/6 and her body is tired and does not recover from each treatment as quickly. Alis agrees to the plan to watch these symptoms, take medications at first sign of symptom, continue to take in fluids but in sips and rest as needed. Patient verbalizes understanding to call with new or worsening s/s. documented in this encounter Plan of Treatment Upcoming Encounters Date Type Department Care Team (Late st Contact Info) Description 02/13/2025 1:00 PM EDT Office Visit Radiation Oncology at [address] [address] Eleonora Mensah MD [facility] [address] [place] [address] documented as of this encounter Visit Diagnoses Not on filedocumented in this encounter Care Teams Wireless Telegrapher Relationship Specialty Start Date End Date Charleen Williamson APRN [address] [place] [address] PCP - General Family Medicine 06/29/20 documented as of this encounter
--- OUTSIDE RECORDS SUMMARY | 2024-05-09 14:04 | XMS_ITS | Encounter Summary ---
[place] [address] Care Team Providers Care Associate Pathologist Name Role Phone Charleen Williamson APRN Primary Care Provider [phone] Reason for Visit * Auth/Cert Specialty Diagnoses [...] Expiration Date Visits Re quested Visits Authorized [id number] 1 1 Encounter Details Date Type Department Care Team (Late st Contact Info) Description 01/03/2021 12:33 PM EDT Anesthesia [place] [address] Akilah Perera MD Mikhail, Daniel, MD Anesthesia Record Procedure Summary Procedure Name Responsible Anesthesiologist Anesthesia Start Time Anesthesia Stop Time MASTECTOMY, SIMPLE, COMPLETE (WRVU 15) (Right: Breast) Akilah Perera MD 01/03/21 1233 01/03/21 1456 Events Date Time Event Comment 01/03/2021 1208 1233 AN Verify 1233 Start 1233 An Start Data 1238 An Induction 1240 An Intubation 1247 Anesthesia Ready 1258 Procedure Start 1305 Break/Relief In I assumed ca re for Break Relief before which we: 1. Identified the patient 2. Identified the responsible provider(s) 3. Reviewed the pertinent medical history 4. Discussed the surgical plan and course 5. Reviewed intra-op anesthesia management and issues during anesthesia 6. Set expectations for the relief (and/or post-procedure) period 7. Allowed opportunity for questions and acknowledgement of understanding LINK SHAIKH MD 1452 Extubation/LMA Out 1452 an stop data 1456 Recovery or ICU Handoff Genie ent care was transferred to the destination unit staff after review of the patient's medical history, current anesthetic/surgical status and plan, according to the Provider Handoff Checklist. 1456 Stop Meds Name Total fentaNYL 75 mcg Propofol 200 mg Rocuronium 50 mg PHENYLephrine 80 mcg Ondansetron 4 mg Neostigmine 3 mg Glycopyrrolate 0.6 mg ceFAZolin (Ancef) 2 g in dex trose 5% 100 mL (2 x 1 g/50 mL premix bags) infusion 2 g Dexmedetomidine 16 mcg Propofol INF 188.79 mg ketorolac (Toradol) (30 mg/mL) injection 30 mg lactated ringers infusion 700 mL * Agents Name O2 Air N2O Sevoflurane (et) * Blood No blood administrations on file. Lines, Drains, and Airways Type Details Placement Removal Incision lower, Right; breast ; horizontal 01/03/21 1328 by (RETIRED) Implanted Port - Single Lumen (non-apheresis) 07/23/20; 0709; 02/13/22; 1440 07/23/20 0709 by Michaela Mcleod, RN 02/13/22 1440 by Lora Shahid, RN Incision 07/23/20; 0918; Left , lower; neck; non-laparascopic puncture; mediport insertion site ; 12/23/21 (LDA cleanup utility RA#[id number]); 171 (LDA cleanup utility RA#[id number]) 07/23/20 0918 by Lora Shahid, RN 12/23/21 171 by Jose Alfredo Michaels Incision 07/23/20; 0925; Left , upper; chest; horizontal, non-laparascopic puncture; mediport pocket site ; 12/23/21 (LDA cleanup utility RA#[id number]); 1715 (LDA cleanup utility RA#[id number]) 07/23/20 09 by Lora Shahid RN 12/23/21 171 by Jose Alfredo Michaels (RETIRED) Implanted Port - Single Lumen (non-apheresis) 07/23/20; 09; infraclavicular fossa, left; power injectable port; superior vena cava; Dr. Urbina; Lot #[id number] [address] Port ; 01/28/21; 112[address]/23/20 09 by Lora Shahid RN 01/28/21 112 by Tyra Washington RN ETT Mask Ventilation: Ea mj (1); ETT Type: Cuffed, Oral; ETT Size: 7 mm; Mac Blade: 3; Notes: Asleep, Pre-O2; Attempts: 1; Laryngoscopy Grade: 1; ETT Placement Verified By: Capnometry, Visual; Inserted by: Jose Elias CRAFT; Removal Date: 01/03/21; Removal Time: 1452 01/03/21 1240 by Terry Moctezuma MD 01/03/21 1452 by Terry Moctezuma MD Drain/Device Site 01/03/21; 1444; Righ t; lower; breast; collapsible closed device; not present upon assessment; 02/13/22; 1441 01/03/21 1444 by Barbara Giraldo RN 02/13/22 1441 by Lora Shahid RN documented in this encounter Social History [...] OR Notes * Anesthesia Postprocedure Evaluation - Terry Moctezuma MD - 01/03/2021 3:22 PM EDT Department of Anesthesiology Post-procedure Note Patient: Alis Silva Procedure Summary Date: 01/03/21 Room / Location: [address] MAIN OR Anesthesia Start: 1233 Anesthesia Stop: 1456 Procedures: MASTECTOMY, SIMPLE, COMPLETE (WRVU 15.85) (Right Breast) BIOPSY OR EXCISION OF LYMPH NODE(S), OPEN, DEEP AXILLARY NODE(S) (WRVU 6.43) (Right Axilla) INTRAOPERATIVE ID (MAPPING) SENTINEL LYMPH NODE,INCLUDES INJECTION (WRVU 2.5) (Right ) EXCISION LESION, BREAST W/ PREOP.MARKER (NEEDLE LOC.) (WRVU 6.69) (Right Breast) MODIFIER WITH NEEDLE LOC., LESION #1 (Right ) MODIFIER SENTINEL NODE EXCISION (Right ) Diagnosis: (BREAST CANCER) Surgeons: Eulalio Hunt MD Responsible Provider: Akilah Perera MD Anesthesia Type: general ASA Status: 3 All Anesthesia Providers: Anesthesiologist: Akilah Perera MD Corporate Human Resources Manager: Terry Moctezuma MD Vitals Value Taken Time BP 131/81 01/03/21 1515 Temp Pulse 86 01/03/21 1522 Resp 20 01/03/21 1522 SpO2 100 % 01/03/21 1518 Pain Level Vitals shown include unvalidated device data. Patient Location: PACU/[facility] Level of Consciousness: Conscious but Sleepy Pain Management: Satisfactory Analgesia PONV: None Cardiovascular Status: At Baseline and Hemodynamically Stable Respiratory Status: At Baseline, Room Air and Supplemental O2 (NC or FM) Postoperative Fluid Status: Intravascular EUvolemia Possible Anesthetic Complications: NONE apparent at time of evaluation Final Primary Anesthesia Type: General (The anesthetic type performed was the same as planned.) Comments: Terry Moctezuma MD * Anesthesia Preprocedure Evaluation - Akilah Perera MD - 01/02/2021 7:21 PM EDT Pre-Anesthesia Evaluation for: Alis Silva a 30 y.o. female. Procedure(s): MASTECTOMY, SIMPLE, COMPLETE (WRVU 15.85) BIOPSY OR EXCISION OF LYMPH NODE(S), OPEN, DEEP AXILLARY NODE(S) (WRVU 6.43) INTRAOPERATIVE ID (MAPPING) SENTINEL LYMPH NODE,INCLUDES INJECTION (WRVU 2.5) EXCISION LESION, BREAST W/ PREOP.MARKER (NEEDLE LOC.) (WRVU 6.69) MODIFIER WITH NEEDLE LOC., LESION #1 MODIFIER SENTINEL NODE EXCISION Patient Active Problem List Diagnosis ??? Malignant neoplasm of right breast in female, estrogen receptor positive 29 yo self-palpated a mass under the right nipple when she noticed it had inverted at the end of May 2020. [place] [facility] [place]2 + right invasive carcinoma with [...] IR MEDIPORT PLACEMENT 07/23/2020 IR Mediport Placement [facility] INTERVENTIONL RAD ??? MAMMO US BIOPSY LYMPH NODE RIGHT Right 06/29/2020 Mammo US Biopsy Lymph Node Right 06/29/2020 Danni Osuna MD [facility] RAD MAMMOGRAPHY ??? MAMMO US BIOPSY RIGHT Right 06/29/2020 Mammo Us Biopsy Right 06/29/2020 Danni Osuna MD [facility] RAD MAMMOGRAPHY ??? MRI GUIDED BIOPSY BREAST VACUUM ASSISTED LEFT Left 07/18/2020 MRI Guided Biopsy Breast Vacuum Assisted Left 07/18/2020 [facility] RAD MRI Social History Tobacco Use ??? Smoking status: Never Smoker ??? Smokeless tobacco: Never Used Substance Use Topics ??? Alcohol use: Not on file Social History Substance and Sexual Activity Drug Use Not on file Allergies Allergen Reactions ??? Tegaderm [Transparent Dressings] Use alcohol and betadine, no biopatch. USE DUODERM Medications: MAR and/or home medications have been reviewed. Physical Exam: Preprocedure Vitals Current as of 01/02/211920 No BP, pulse, respiration, SpO2, or temperature recorded. Height: Weight: BMI: IBW: Airway Assessment: Mallampati: I TM distance: >3 FB Neck ROM: full Cardiovascular Assessment: Rhythm: regular Rate: normal system normal Pulmonary Assessment: unlabored breathing pulmonary exam normal Dental Assessment: Misc Assessment: IV access: Central line Other exam findings: Port accessed Last Filed Perioperative Cognitive Screening None Anesthesia Plan: ASA 3 general, with a(n) intravenous induction 30 y.o., 89 kg (BMI of 29) female with breast cancer presenting for Right complete mastectomy. PMH significant for anxiety, breast cancer s/p neoadjuvant chemotherapy and GERD on omeprazole. Anesthetic hx: No reported prior complications with anesthesia Airway hx: no records ECHO: 2020 04. The left ventricular chamber size is normal. There is normal global left ventricular systolic function with an EF of 59% and no wall motion abnormalities. Lab Results Component Value Date HGB 9.0 (L) 11/29/2020 PLATELET 65 (L) 11/29/2020 NA 142 11/29/2020 K 3.8 11/29/2020 CREATININE 0.72 11/29/2020 No results for input(s): ABORH in the last 7068 hours. Allergies: -- Tegaderm (Transparent Dressings) -- Use alcohol and betadine, no biopatch. USE DUODERM NPO Status: Appropriate Anesthetic Plan: GA with ETT Standard ASA monitoring Adequate IV access Region - Other Informed Consent: Anesthetic plan and risks discussed with patient. Plan discussed with resident. Anesthesia Screening documented in this encounter Plan of Treatment Upcoming Encounters Date Type Department Care Team (Late st Contact Info) Description 02/13/2025 1:00 PM EDT Office Visit Radiation Oncology at [address] [phone] Eleonora Mensah MD [facility] [place] [address] documented as of this encounter Visit Diagnoses Not on filedocumented in this encounter Administered Medications Inactive Administered Medications - up to 3 most recent administrations Medication Order MAR Action Action Date Dose Rate Site ceFAZolin (Ancef) 2 g in dextrose 5% 100 mL (2 x 1 g/50 mL premix bags) infusion 2 g, Intravenous, EVERY 3 HOURS, 1 [...] (Intra-Procedure), Indication for (Active or Suspected): Prophylaxis Given 01/03/2021 12:47 PM EDT 2 g dexmedetomidine (Precedex) (4 mcg/mL) bolus injection (Anesthsia) Intravenous, PRN, Starting on Alannah 01/03/21 at 1252, Until Alannah 01/03/21 at 1522, Anesthesia Intra-op, Routine Given 01/03/2021 12:57 PM EDT 8 mcg Given 01/03/2021 12:52 PM EDT 8 mcg fentaNYL (pf) (50 mcg/mL) multi-dose injection Intravenous, PRN, Starting on Alannah 01/03/21 at 1306, Until Alannah 01/03/21 at 1522, Anesthesia Intra-op, Routine Given 01/03/2021 1:58 PM EDT 25 mcg Given 01/03/2021 1:06 PM EDT 50 mcg glycopyrrolate (Robinul) (0.2 mg/mL) multi-dose injection Intravenous, PRN, Starting on Alannah 01/03/21 at 1408, Until Alannah 01/03/21 at 1522, Anesthesia Intra-op, Routine Given 01/03/2021 2:11 PM EDT 0.2 mg Given 01/03/2021 2:08 PM EDT 0.4 mg ketorolac (Toradol) (30 mg/mL) injection Intravenous, PRN, Starting on Alannah 01/03/21 at 1414, Until Alannah 01/03/21 at 1522, Anesthesia Intra-op, Routine Given 01/03/2021 2:14 PM EDT 30 mg lactated ringers infusion 1,000 mL, at 100 mL/hr, Intravenous, CONTINUOUS, Starting on Alannah 01/03/21 at 1130, Until Alannah 01/03/21 at 1736, Day of Surgery (Day of Procedure) New Bag 01/03/2021 12:32 PM EDT New Bag 01/03/2021 11:31 AM EDT 1,000 mLs 100 mL/hr neostigmine (Bloxiver) (1 mg/mL) injection Intravenous, PRN, Starting on Alannah 01/03/21 at 1408, Until Alannah 01/03/21 at 1522, Anesthesia Intra-op, Routine Given 01/03/2021 2:08 PM EDT 3 mg ondansetron (pf) (Zofran) (2 mg/mL) injection Intravenous, PRN, Starting on Alannah 01/03/21 at 1408, Until Alannah 01/03/21 at 1522, Anesthesia Intra-op, Routine Given 01/03/2021 2:08 PM EDT 4 mg PHENYLephrine in NS (PF) (NIKO-SYNEPHRINE) 0.8 mg/10 mL (80 mcg/mL) multi-dose injection Syrg Intravenous, PRN, Starting on Alannah 01/03/21 at 1342, Until Alannah 01/03/21 at 1522, Anesthesia Intra-op, Routine Given 01/03/2021 1:42 PM EDT 80 mcg propofoL (Diprivan) 10 mg/mL bolus injection (Anesthesia) Intravenous, PRN, Starting on Alannah 01/03/21 at 1238, Until Alannah 01/03/21 at 1522, Anesthesia Intra-op Given 01/03/2021 12:38 PM EDT 200 mg propofoL (Diprivan) infusion Intravenous, CONTINUOUS PRN, Starting on Alannah 01/03/21 at 1308, Until Alannah 01/03/21 at 1522, Anesthesia Intra-op, Routine Rate/Dose Change 01/03/2021 1:36 PM EDT 25 mcg/kg/min 13.485 mL/hr New Bag 01/03/2021 1:08 PM EDT 50 mcg/kg/min 26.97 mL/h r rocuronium (Zemuron) (10 mg/mL) multi-dose injection Intravenous, PRN, Starting on Alannah 01/03/21 at 1238, Until Alannah 01/03/21 at 1522, Anesthesia Intra-op, Routine Given 01/03/2021 12:38 PM EDT 50 mg documented in this encounter Care Teams Associate Pathologist Relationship Specialty Start Date End Date Charleen Williamson APRN [address] [place] [address] PCP - General Family Medicine 06/29/20 documented as of this encounter
--- OUTSIDE RECORDS SUMMARY | 2024-05-09 14:05 | XMS_ITS | Encounter Summary ---
[place] [address] Care Team Providers Care Singing Telegram Performer Name Role Phone Charleen Williamson APRN Primary Care Provider [phone] Reason for Visit * Reason Comments Follow-up Encounter Details Date Type Department Care Team (Late st Contact Info) Description 2020 11:00 AM EDT Office Visit [place] [address] Barbara Cain PA Malignant neoplasm of right breast in female, estrogen receptor positive, unspecified site of breast; Diarrhea, unspecified type; Thrush; CINV (chemotherapy-induced nausea and vomiting) Social History Tobacco Use Types Packs/Day Years [...] Sign Reading Time Taken Comments Blood Pressure 139/93 2020 10:43 AM EDT Pulse 82 2020 10:43 AM EDT Temperature 37.3 ??C (99.1 ??F) 2020 1 0:43 AM EDT Respiratory Rate 18 2020 10:4 3 AM EDT Oxygen Saturation 98% 2020 10: 43 AM EDT Inhaled Oxygen Concentration - - Weight 89.3 kg (196 lb 13.9 oz) 021 10:43 AM EDT Height 174.7 cm (5' 8.78) 2020 1 0:43 AM EDT Body Mass Index 29.26 2020 10:43 AM EDT documented in this encounter Progress Notes * Barbara Cain PA - 2020 11:00 AM EDT [facility] Follow-up Visit CC: breast cancer Identification: 30 y.o. female with locally advanced right breast cancer on neoadjuvant chemotherapy with TCHP Medical Oncologist: Tyra Cornejo MD Interim History: Alis presents today to continue neoadjuvant chemotherapy with TCHP q3 weeks x 6 cycles. Alis presents today for cycle 3. Overall feels cycle 2 went much better than the first. She notesimproved appetite, nausea, and energy with 4 mg dexamethasone for 1 week after treatment. She took compazine a few times for breakthrough nausea with good relief. She experienced diarrhea a handful of days, no more than 3 loose stools per day and responding to 1 dose of imodium. She experienced recurrence of thrush which cleared after an additional 7 days of clotrimazole troches. No mouth soresor irritation; felt that Peridex rinse dried out her mouth. No neuropathy symptoms but fingertips feel swollen when she is walking on the treadmill. No further leg swelling. She is walking 60 minutesper day, eating and hydrating well. Review of Systems: General: Denies fevers, chills, appetite changes, weight changes, fatigue. Skin: Denies rashes, new skin lesions. Scalp itching resolved. HEENT: Denies double vision, dental pain, mouth sores. Reports less than 5 headaches in the past 3 weeks, had to take ibuprofen on some occasions. Reports intermittent blurred vision with distance. Pulm: Denies cough, dyspnea. CV: Denies chest pain, palpitations. Extremities: Denies peripheral edema, leg swelling/pain/redness. Breast: Denies new masses, nipple discharge, breast pain. Breast erythema has decreased further. Lymph: Denies lymphadenopathy, lymphedema. Posterior left neck node has gone away. GI: Denies N/V/C, abdominal pain, heartburn, melena, hematochezia. Reports occasional diarrhea. Reports very mild constipation in the first few days after chemo. : Denies dysuria, hematuria. UTI sx have not recurred. Repro: Premenopausal. Previously on Depot Provera q3 months, last dose early June 2020. Currently receiving goserelin q3 weeks. No vaginal bleeding since last visit. Denies abnormal vaginal bleeding, vaginal dryness or irritation. Endo: Denies hot flashes. Reports nighttime sweating but not waking up with hot flashes. Heme: Denies bleeding. Has noticed some small bruises. MSK: Denies new or worsening skeletal pain, joint pains, myalgias. No Neulasta associated aches. Neuro: Denies dizziness, lightheadedness, weakness, balance problems, peripheral neuropathy, cognitive changes. Psych: Denies depression, insomnia. Feels mood is more stable but still anxious, particularly aboutgoing out in public/COVID exposures. Started sertraline on 07/25, taking 50 mg. Breast Cancer History: Diagnosis: - 29 yo self-palpated a mass under the right nipple when she noticed it had inverted at the end of May 2020. 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 R ALN bx + metastatic carcinoma. - cT2N1 grade 2/3 Stage [...] cryopreservation - 08/14/2020 goserelin dose #1 at [facility] - 08/17/2020 cycle 1 neoadjuvant TCHP - 09/06/2020 cycle 2 TCHP, dose #2 goserelin - 2020 cycle 3 TCHP, dose #3 goserelin ?? RFs: menses age 14 to present; no menses while on Depo provera. ?? PMH: Patient Active Problem List Diagnosis Code ??? Malignant neoplasm of right breast in female, estrogen receptor positive C50.911, Z17.0 Meds: chlorhexidine, clotrimazole, dexamethasone, diphenoxylate-atropine, hydrOXYzine, lactobacillus rhamnosus (GG), lidocaine-prilocaine, loratadine, melatonin, nitrofurantoin, omeprazole, ondansetron ODT, prochlorperazine, sertraline, and traZODone Allergies: Allergies Allergen Reactions ??? Tegaderm [Transparent Dressings] Use mepilex FH: family history includes Breast Cancer (age of onset: 83) in her paternal grandmother; Ovarian Cancer (age of onset: 50) in her paternal aunt; Uterine Cancer (age of onset: 50) in her paternal aunt. 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 - VUS was detected in the following genes: Gene Variant RET c.2982A>C (p.Gbm262Bzs) SDHB c.482A>G (p.[id number]) SH: Social History Tobacco Use ??? Smoking status: Never Smoker ??? Smokeless tobacco: Never Used Vaping Use ??? Vaping Use: Never used Substance Use Topics ??? Alcohol use: Not on file ??? Drug use: Not on file Social History Social History Narrative Had been working on a [employer] outside of [facility] but unemployed recently. On Medicaid. Alis lives with her who is disabled and receives disability benefits. They also get food stamps, fuel assistance and use the local food pantry. Vitals: Patient Vitals for the past 24 hrs: Temp Pulse Resp BP SpO2 09/27/20 1043 37.3 ??C (99.1 ??F) 82 18 (!) 139/93 98 % Wt Readings from Last 3 Encounters: 09/27/20 89.3 kg (196 lb 13.9 oz) 09/06/20 88.5 kg (195 lb) 08/17/20 89.6 kg (197 lb 9.6 oz) Physical Exam: Vitals reviewed and remarkable for: BP 139/93 (anxious), weight gain of 1 pound in the last 3 weeks; afebrile General: A&Ox3. Well-developed and well-nourished. No acute distress. Head: Normocephalic, atraumatic. Eyes: PERRL. EOMs intact. Conjunctiva pink. No scleral icterus. Mouth: Good dentition. No oral erythema, exudates, or ulcerations. Neck: Supple, nontender. No cervical or supraclavicular lymphadenopathy. No thyromegaly. Chest: Port site (left) accessed. No tenderness. Diffuse patchy erythema beginning at edge of Mepilex dressing and extending across chest wall. Cardiovascular: Normal rate, regular rhythm. No murmurs appreciated. No peripheral edema. Pulmonary: Breathing comfortably on room air. Lungs clear to auscultation bilaterally without wheezes, rhonchi, or crackles. Breasts: ?? Right: Nearly resolved erythema and induration. General retroareolar density without mass. No palpable axillary nodes. ??? Left: There are no suspicious masses, skin changes, nipple changes, or palpable axillary nodes. Musculoskeletal: No spinal or pelvic tenderness upon palpation. Neurological: Gait normal. No focal deficits noted. Skin: Warm and dry. No rashes noted. Psychiatric: Friendly and conversive. Mood is euthymic. Affect is mood- congruent. Insight is good. Thought-content is normal, future-oriented. Results: Lab Results Component Value Date WBC 8.9 09/06/2020 HGB 11.5 (L) 09/06/2020 HCT 33.1 (L) 09/06/2020 MCV 87.8 09/06/2020 PLATELET 190 09/06/2020 Lab Results Component Value Date NEUTROABS 5.62 09/06/2020 Lab Results Component Value Date NA 138 09/06/2020 K 4.2 09/06/2020 CL 105 09/06/2020 CO2 25 09/06/2020 BUN 10 09/06/2020 CREATININE 0.73 09/06/2020 GLUCOSE 94 09/06/2020 CALCIUM 9.3 09/06/2020 ESTGFR 113 09/06/2020 Lab Results Component Value Date ALT 26 09/06/2020 AST 19 09/06/2020 ALKPHOS 86 09/06/2020 BILITOT 0.3 09/06/2020 ALBUMIN 4.2 09/06/2020 PROT 7.8 09/06/2020 Baseline echo 07/20/20: EF 62% Assessment & Plan: Alis is a 30 y.o. woman with locally advanced right breast cancer. She underwent oocyte harvesting and embryo preservation and received her first dose of goserelin for preservation of ovarian function on 08/14/20. She started TCHP neoadjuvant chemotherapy on 08/17/20. Her breast exam has significantly improved. She presents today for cycle 3 of TCHP. Laboratory results are within acceptable limits to proceed with treatment today. She is feeling much better with improved side effect management. ?? Proceed with C3 of TCHP, to be given q3 weeks x 6 cycles ?? Goserelin injections for fertility preservation to be done q3 weeks to align with chemotherapy treatments. ?? Growth factor support: Neulasta OnPro. Taking Claritin. ?? Contraception: Dr. Cornejo has recommended abstinence for 4 weeks, after which ovaries shouldbe suppressed with goserelin. ?? Cardiovascular monitoring: Baseline TTE 07/20/20, EF 62%. Due December. ?? Antiemetic plan: ?? Premedications: Cinvanti, Aloxi ?? Home regimen: ?? Dexamethasone 4 mg every morning as needed for up to 1 week after treatments. ?? Compazine and/or Ativan PRN. ?? Symptom management: ?? Diarrhea: Imodium, has not needed Lomotil ?? Constipation: Mild and likely due to Aloxi. Will keep for nausea control. Encouraged hydration, prune juice +/- laxative in the days after treatment. ?? Thrush: resolved, can restart clotrimazole troches if it recurs, or treat systemically ?? Psychosocial: Coping well, anxiety improved. Good support from , PCP. Followed by MILAGROS Hernandez. ?? Coordination of care: ?? Transition to HER2-targeted therapy after TCHP, final recommendations will depend on pathology. [facility] ?? She intends to have surgery here. We will notify Dr. Hunt's office at the time of cycle 4. ?? RTC in 3 weeks. She will contact me in the interim if she has any concerns. ?? She will get her port dressing changed after our visit as she is experiencing an allergic rash. No refills needed. All questions answered. Barbara Cain PA-C Medical Oncology - Breast & GI Cancers [facility] Pager - [phone] Future Appointments Date Time Provider Department Center 2020 11:00 AM Barbara Cain PA [facility] [place] [facility] 2020 12:30 PM [facility]AP[facility] [place] [address] [place] [address] 10/18/2020 10:00 AM ACCESS ROOM [facility] [address] [place] [address] 10/18/2020 11:00 AM Tyra Cornejo MD [facility] [place] 10/18/2020 12:30 PM [facility]ION THERAPY [facility] [address] [place] [address] 11/08/2020 10:30 AM ACCESS ROOM [facility] [address] [place] [address] 11/08/2020 11:30 AM Barbara Cain PA [facility] 11/08/2020 1:00 PM [facility] INFUSION THERAPY [facility] [address] [place] [address] 11/29/2020 9:00 AM ACCESS ROOM [facility] [address] [place] [address] 11/29/2020 10:00 AM Tyra Cornejo MD [facility] 11/29/2020 11:30 AM [facility] [address] documented in this encounter Plan of Treatment Upcoming Encounters Date Type Department Care Team (Late st Contact Info) Description 02/13/2025 1:00 PM EDT Office Visit Radiation Oncology at [address] [address] Eleonora Mensah MD [facility] [place] [address] documented as of this encounter Visit Diagnoses Diagnosis Malignant neoplasm of right breast in female, estrogen receptor positive, unspecified site of breast Diarrhea, unspecified type Thrush Candidiasis of mouth CINV (chemotherapy-induced nausea and vomiting) Nausea with vomiting documented in this encounter Care Teams Singing Telegram Performer Relationship Specialty Start Date End Date Charleen Williamson APRN [address] [place] [address] PCP - General Family Medicine 06/29/20 documented as of this encounter
--- OUTSIDE RECORDS SUMMARY | 2024-05-09 14:05 | XMS_ITS | Encounter Summary ---
[place] [address] Care Team Providers Care Steam Hand Name Role Phone Charleen Williamson APRN Primary Care Provider [phone] Encounter Details Date Type Department Care Team (Latest Contact Info) Description 10/23/2020 1:45 PM EDT - 10/23/2020 2:05 PM EDT Hospital Encounter [place]ematology [place] [address] Malignant 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, estrogen receptor positive (Primary Dx); SOB (shortness of breath); Non-cardiac chest pain Discharge Disposition: Home Social History Tobacco Use [...] Sig Dispensed Refills Start Date End Date propranoloL (Inderal) 20 mg Tablet Take 20 mg by mouth 2 times daily. 09/19/2020 ondansetron ODT (Zofran-ODT) 4 mg Tablet, Rapid Dissolve Take 4 mg by mouth as needed. 08/15/2020 melatonin 5 mg Tablet Take by mouth nightly. hydrOXYzine (Atarax) 10 mg Tablet TAKE 1 TO 2 TABLETS BY MOUTH EVERY 8 HOURS NEEDED FOR ANXIETY 07/09/2020 dexamethasone (DECADRON) 2 mg Tablet Take 1 tablet by mouth daily (after breakfast). For 3-5 days after chemotherapy, stop when nausea resolves. 6 tablet 1 10/18/2020 11/08/2020 chlorhexidine (PERIDEX) 0.12 % Mouthwash Take 15 [...] Progress Notes * Rosio Castillo RN - 10/23/2020 2:11 PM EDT Patient Name: Alis Silva Patient Age: 30 y.o. Birthdate: 1990 Admit date: 10/23/2020 Attending Physician: No att. providers found Access visit. See MAR and/or flowsheet. documented in this encounter Plan of Treatment Upcoming Encounters Date Type Department Care Team (Late st Contact Info) Description 02/13/2025 1:00 PM EDT Office Visit Radiation Oncology at [address] [phone] Eleonora Mensah MD [facility] [address] [place] [address] documented as of this encounter Procedures Procedure Name Priority Date/Time Associated Diagnosis Comments SCAN, PERIPHERAL BLOOD Routine 2:15 PM EDT HEMOGRAM Routine 10/23/2020 2:15 PM EDT Malignant 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, estrogen receptor positive SOB (shortness of breath) Non-cardiac chest pain DIFFERENTIAL, AUTOMATED Routine 10/23/2020 2:15 PM EDT Malignant 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, estrogen receptor positive SOB (shortness of breath) Non-cardiac chest pain HC CBC,PLT & AUTO DIFF Routine 2:15 PM EDT Malignant 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, estrogen receptor positive SOB (shortness of breath) Non-cardiac chest pain COMPREHENSIVE METABOLIC PANEL Routine 10/23/2020 2:15 PM EDT Malignant 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, estrogen receptor positive SOB (shortness of breath) Non-cardiac chest pain documented in this encounter Results * Scan, Peripheral Blood (10/23/2020 2:15 PM EDT) Plat estimate Decreased [facility] RBC Morphology Normal [facility] Blood 10/23/2020 2:15 PM EDT 10/23/2020 2:15 PM EDT Narrative Resulting Agency Comment Spec In Lab Tyra Cornejo MD HEMATOLOGY ORDERABL ES [facility] [place] [address] * (ABNORMAL) Differential, Automated (10/23/2020 2:15 PM EDT) Neutrophil % 67.9 % [facility] Neutrophil Absolute 4.12 1.70 - 6.10 x10(3)/ L [facility] Lymph % 23.2 % [facility] Lymphocytes Abs 1.4 0.9 - 3.2 x10(3)/ L [facility] Monocyte % 6.8 % [facility] Monocyte Abs 0.4 0.3 - 0.9 x10(3)/[facility] Eos % 0.2 % [facility] Eosinophils Abs 0.0 0.0 - 0.4 x10(3)/[facility] Basophil % 0.3 % [facility] Baso Absolute 0.0 0.0 - 0.1 x10(3)/[facility] Immature Gran % 1.60 % [facility] Comment: Immature granulocytes(IG's)percentage and absolute count will include metamyelocytes, myelocytes, and promyelocytes. Blood smears from CBCs yielding IG's will be scanned manually for concordance. If this scan disagrees with the automated IG or if promyelocytes are noted, a manual differential will be performed. Immature Gran Absolute 0.10(H) 0.00 - 0.04 x10(3)/ L [facility] Blood 10/23/2020 2:15 PM EDT 10/23/2020 2:15 PM EDT Narrative Resulting Agency Comment Spec In Lab Tyra Cornejo MD HEMATOLOGY ORDERABL ES [facility] [place] [address] * (ABNORMAL) Hemogram (10/23/2020 2:15 PM EDT) Pathologist [facility] White Blood Cell 6.1 4.0 - 9.5 x10(3)/mc L [facility] Red Blood Cell 3.57(L) 4.00 - 5.21 x10(6)/mc L [facility] Hemoglobin 11.8 11.7 - 15.5 gm/dL [facility] Hematocrit 33.1(L) 35.7 - 45.8 % [facility] Mean Cell Volume 92.7 82.6 - 94.4 fL [facility] Mean Cell Hemoglobin 33.1(H) 27.1 - 32.0 pg [facility] Mean Cell Hemoglobin Concentration 35.6(H) 31.7 - 35.0 gm/dL [facility] Platelet 119(L) 145 - 357 x10(3)/[facility] RDW Standard Deviation 49.9(H) 37.0 - 46.0 fL [facility] RDW coefficient of variation 14.6(H) 11.5 - 14.1 % [facility] Mean Platelet Volume 9.1 7.6 - 12.9 fL [facility] NRBC% auto 0.0 % [facility] NRBC Absolute 0.000 0.000 - 0.000 x10(3)/[facility] Blood 10/23/2020 2:15 PM EDT 10/23/2020 2:15 PM EDT Narrative Resulting Agency Comment Spec In Lab Tyra Cornejo MD HEMATOLOGY ORDERABL ES [facility] [place] [address] * (ABNORMAL) Comprehensive metabolic panel (non-fasting) (10/23/2020 2:15 PM EDT) Glucose 103 65 - 199 mg/dL [facility] Comment:Diabetes: >=200 mg/d L plus symptoms Blood Urea Nitrogen 15 8 - 18 mg/dL [facility] Creatinine 0.79 0.70 - 1.20 mg/dL [facility] Sodium 136 135 - 145 mmol/L [facility] Potassium 3.6 3.5 - 5.0 mmol/L [facility] Comment: Please note: ??Patients with WBC >100,000 may have falsely elevated Potassium levels. ??For accurate Potassium quantification in these patients send serum separator tube (gold top) for subsequent determinations. ??Contact the Clinical Chemistry Laboratory if there are any questions. Chloride 99 98 - 107 mmol/L [facility] Carbon Dioxide 27 22 - 31 mmol/L [facility] Anion Gap 10 5 - 15 mmol/L [facility] Calcium 9.5 8.5 - 10.5 mg/dL [facility] Protein, Total 8.1(H) 6.1 - 8.0 gm/dL [facility] Albumin 4.7 3.2 - 5.2 gm/dL [facility] Aspartate Aminotransferase 26 0 - 30 unit/L [facility] Alanine Aminotransferase 37(H) 0 - 30 unit/L [facility] Alkaline Phosphatase 106(H) 35 - 105 unit/L [facility] Bilirubin, Total 0.5 0.2 - 1.3 mg/dL [facility] [...] and symptoms in addition to eGFR. Blood 10/23/2020 2:15 PM EDT 10/23/2020 2:15 PM EDT Narrative Resulting Agency Comment Spec In Lab Tyra Cornejo MD CHEMISTRY ORDERABLE S [facility] [address] [place] [address] documented in this encounter Visit Diagnoses Diagnosis Malignant 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, estrogen receptor positive- Primary SOB (shortness of breath) Shortness of breath Non-cardiac chest pain Other chest pain documented in this encounter Administered Medications Inactive Administered Medications - up to 3 most recent administrations Medication Order MAR Action Action Date Dose Rate Site heparin (pf) (porcine) (100 units/mL) flush 5 mL syringe 500 Units 500 Units, Intravenous, ONCE PRN, Starting on Thu10/23/20 at 1353, Until Thu10/24/20 at 0435, Line Care, Routine Given 10/23/2020 2:10 PM EDT 500 Units sodium chloride 0.9 % (flush) flush 20 mL 20 mL, Intravenous, EVERY 1 MIN PRN, Starting on Thu10/23/20 at 1353, Until Thu10/24/20 at 0435, Chief Sales Officer, Routine Given 10/23/2020 2:10 PM EDT 20 mLs documented in this encounter Care Teams Steam Hand Relationship Specialty Start Date End Date Charleen Williamson APRN [address] [place] [address] PCP - General Family Medicine 06/29/20 documented as of this encounter
--- OUTSIDE RECORDS SUMMARY | 2024-05-09 14:05 | XMS_ITS | Encounter Summary ---
Author Organization [facility] Address [facility] [place] [address] Care Team Providers Care Assistant Program Director Name Role Phone Charleen Williamson APRN Primary Care Provider [phone] Reason for Referral * Diagnostic Test (Routine) - Closed Specialty Diagnoses / Procedures Referred By Contac t Referred To Contact Radiology Diagnoses Malignant 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, estrogen receptor positive SOB (shortness of breath) Procedures MRI Breast wwo Contrast Bilat Tyra Cornejo MD [facility] [address] [place] [address] [place] [address] Referral ID Status Reason Start Date Expiration Date V isits Requested Visits Authorized [id number] Closed Specialty Service Requested 10/23/2020 04/24/2022 1 1 Encounter Details Date Type Department Care Team (Late st Contact Info) Description 10/23/2020 Orders Only Hematology [place] [address] Tyra Cornejo MD [facility] [place] [address] Malignant 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, estrogen receptor positive; SOB (shortness of breath); Non-cardiac chest pain Social History Tobacco Use Types Packs/Day [...] PM EDT Office Visit Radiation Oncology at [address] [address] Eleonora Mensah MD [facility] [place] [address] documented as of this encounter Results * [...] have questions please contact the health care nurse rn that requested your imaging first. ? Electronically signed by: Danni Osuna MD, [facility] ([phone]), at 12/14/2020 12:38 PM Narrative 12/14/2020 12:38 PM EDT BILATERAL BREAST [...] contrast enhancement curve analysis was performed, using Weblio software. Kinetic features are impaired as the [...] skin.. Tyra Cornejo MD IMG MRI ORDERABLES * XR Chest PA & Lateral (Generic) (10/23/2020 2:31 PM EDT) Anatomical Region Laterality Modality Chest N/A Digital Radiogra phy Impressions 10/23/2020 3:46 PM EDT No acute cardiopulmonary findings. I have personally reviewed the image(s) and the resident's interpretation and agree with the findings, Jung Byrne MD at 10/23/2020 3:46 PM Thank you for letting us participate in the care of this patient. ??If you are a health care provider and have any questions regarding this report, please contact the number below. ??For patients who have questions please contact the health care nurse rn that requested your imaging first. ? Electronically signed by: Jung Byrne MD, [facility] ([phone]), at 10/23/2020 3:46 PM Narrative 10/23/2020 3:46 PM EDT EXAMINATION: XR CHEST PA AND LATERAL (GENERIC) CLINICAL HISTORY: sob + chest pain TECHNIQUE: PA and lateral views of the chest COMPARISON: CT chest abdomen pelvis are 2020 FINDINGS: Left-sided chest port with its catheter tip at the cavoatrial junction. Metallic ring projected over the right mid lung likely a prior breast biopsy clip. Lungs are clear. No pneumothorax. Cardiomediastinal silhouette, pleura, mónica and pulmonary vasculature are unremarkable. No acute osseous abnormality, specifically no sclerotic or lytic lesions are seen. Procedure Note Jung Byrne MD - 10/23/2020 EXAMINATION: XR CHEST PA AND LATERAL (GENERIC) CLINICAL HISTORY: sob + chest pain TECHNIQUE: PA and lateral views of the chest COMPARISON: CT chest abdomen pelvis are 2020 FINDINGS: Left-sided chest port with its catheter tip at the cavoatrial junction.Metallic ring projected over the right mid lung likely a prior breast biopsyclip. Lungs are clear. No pneumothorax. Cardiomediastinal silhouette, pleura,mónica and pulmonary vasculature are unremarkable. No acute osseous abnormality, specifically no sclerotic or lytic lesions are seen. IMPRESSION No acute cardiopulmonary findings. I have personally reviewed the image(s) and the resident's interpretationand agree with the findings, Jung Byrne MD at 10/23/2020 3:46 PM Thank you for letting us participate in the care of this patient. If youare a health care provider and have any questions regarding this report,please contact the number below. For patients who have questions please contactthe health care nurse rn that requested your imaging first. Electronically signed by: Jung Byrne MD, [facility]([phone]), at 10/23/2020 3:46 PM Tyra Cornejo MD IMG DX ORDERABLES * (ABNORMAL) D-Dimer, Quantitative (10/23/2020 2:20 PM EDT) Pathologist [facility] D-Dimer 672(H) 0 - 500 FEU ng/ml [facility] Comment: The D-Dimer assay is used to aid in the diagnosis of deep vein thrombosis and pulmonary embolism. A normal D-Dimer result (less than 500 FEU ng/ml) has a negative predictive value of approximately 95% for the exclusion of acute PE and DVT when there is low to moderate pretest probability. To use age adjusted cutoff: Age x 10 ng/ml. Blood 10/23/2020 2:20 PM EDT 10/23/2020 2:38 PM EDT Narrative Resulting Agency Comment Spec In Lab Tyra Cornejo MD HEMATOLOGY ORDERABL ES [facility] [place] [address] * (ABNORMAL) Comprehensive metabolic panel (non-fasting) (10/23/2020 2:15 PM EDT) Pathologist [facility] Glucose 103 65 - 199 mg/dL [facility] Comment:Diabetes: >=200 mg/d L plus symptoms Blood Urea Nitrogen 15 8 - 18 mg/dL [facility] Creatinine 0.79 0.70 - 1.20 mg/dL [facility] Sodium 136 135 - 145 mmol/L [facility] Potassium 3.6 3.5 - 5.0 mmol/L [facility] Comment: Please note: ??Patients with WBC >100,000 may have falsely elevated Potassium levels. ??For accurate Potassium quantification in these patients send serum separator tube (gold top) for subsequent determinations. ??Contact the Clinical Chemistry Laboratory if there are any questions. Chloride 99 98 - 107 mmol/L [facility] Carbon Dioxide 27 22 - 31 mmol/L [facility] Anion Gap 10 5 - 15 mmol/L [facility] Calcium 9.5 8.5 - 10.5 mg/dL [facility] Protein, Total 8.1(H) 6.1 - 8.0 gm/dL [facility] Albumin 4.7 3.2 - 5.2 gm/dL [facility] Aspartate Aminotransferase 26 0 - 30 unit/L [facility] Alanine Aminotransferase 37(H) 0 - 30 unit/L [facility] Alkaline Phosphatase 106(H) 35 - 105 unit/L [facility] Bilirubin, Total 0.5 0.2 - 1.3 mg/dL [facility] Est Glomerular Filtration Rate 102 >=60 mL/min/1. 73 m?? [facility] Comment: This patient? [...] S [facility] [place] [address] documented in this encounter Visit Diagnoses Diagnosis Malignant 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, estrogen receptor positive SOB (shortness of breath) Shortness of breath Non-cardiac chest pain Other chest pain Malignant 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, estrogen receptor positive SOB (shortness of breath) Shortness of breath Non-cardiac chest pain Other chest pain Malignant 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, estrogen receptor positive SOB (shortness of breath) Shortness of breath documented in this encounter Care Teams Assistant Program Director Relationship Specialty Start Date End Date Charleen Williamson, IVY [address] [place] [address] PCP - General Family Medicine 06/29/20 documented as of this encounter
--- OUTSIDE RECORDS SUMMARY | 2024-05-09 14:05 | XMS_ITS | Encounter Summary ---
Author Organization [facility] Address [facility] [place] [address] Care Team Providers Care Check Services Clerk Name Role Phone Charleen Williamson APRN Primary Care Provider [phone] Reason for Visit * Reason Comments Chemotherapy TCHP * Treatment/Therapy Plan Authorization (Routine) - Closed Specialty Diagnoses / Procedures Referred By Fawn weston Referred To Contact Diagnoses 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, estrogen receptor positive Procedures TC PEGFILGRASTIM, 6MG, INJECTION TC APREPITANT, 1 MG, INJECTION TC PALONOSETRON HCL, 25MCG, INJECTION (ALOXI) TC PACLITAXEL, 1MG, INJ TC PERTUZUMAB, 1 MG, INJECTION TC CARBOPLATIN, 50MG, INJECTION (PARAPLATIN) [id number] Corbyjinti (Trastuzumab-anns) Tyra Cornejo MD [facility] [address] [place] [address] [facility] Hem On[facility] [address] [place] [address] Referral ID Status Reason Start Date Expiration Date Visits Re quested Visits Authorized [id number] Closed 07/20/2020 07/20/2021 99 99 Encounter Details Date Type Department Care Team (Latest Contact Info) Description 09/06/2020 8:45 AM EDT - 09/06/2020 11:59 PM EDT Hospital Encounter Hematology [place] [address] Malignant neoplasm of overlapping sites [...] Sig Dispensed Refills Start Date End Date ondansetron ODT (Zofran-ODT) 4 mg Tablet, Rapid Dissolve Take 4 mg by mouth as needed. 08/15/2020 melatonin 5 mg Tablet Take by mouth nightly. hydrOXYzine (Atarax) 10 mg Tablet TAKE 1 TO 2 TABLETS BY MOUTH EVERY 8 HOURS NEEDED FOR ANXIETY 07/09/2020 dexamethasone (Decadron) 4 mg Tablet Take 1 tablet by mouth daily (after breakfast). 7 tablet 5 09/06/2020 10/18/2020 diphenoxylate-atropine (Lomotil) 2.5-0.025 mg Tablet Take 1 tablet by mouth 4 times daily as needed for Diarrhea. 60 tablet 3 09/06/2020 10/18/2020 chlorhexidine (PERIDEX) 0.12 % Mouthwash Take 15 mLs by mouth 2 times daily. 120 mL 3 09/06/2020 11/29/2020 nitrofurantoin (Macrobid) 100 mg Capsule Take 1 capsule by mouth 2 times daily. 10 tablet 08/25/2020 10/18/2020 clotrimazole (MYCELEX) 10 mg Jennifer Take 1 tablet by mouth 5 times daily. One tablet dissolved in the mouth five times daily for 7 to 14 days. 70 tablet 08/23/2020 09/13/2020 omeprazole (PriLOSEC) 20 mg Capsule, Delayed Release(E.C.) [...] Progress Notes * Kasia Krishna RN - 09/06/2020 1:28 PM EDT Patient Name: Alis Silva Patient Age: 29 y.o. Birthdate: 1990 Admit date: 09/06/2020 Attending Physician: No att. providers found Alis Silva, 29 y.o. female with diagnosis of 1. 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, estrogen receptor positive is here for chemotherapy infusion of TCHP w/ zoladex injection and OnPro application. PROTOCOL: n/a CYCLE: 2 DAY: 1 S: Pt. offers no complaints at this time. Reviewed plan of care for infusion visit, patient verbalized understanding of plan as outlined. O: Chemotherapy orders independently verified for correct drug name, route and dosage per patient'sheight, weight and BSA by Kasia Krishna, DENISE, RN and onsite pharmacist. Chemotherapy administered per protocol. REACTIONS (DESCRIPTION, TIME, INTERVENTION AND EFFECTIVENESS) none A: Pt. Tolerated treatment without issue. Alis Silva confirms that all questions and issues have been addressed. Zoladex given LLQ abd, tolerated well. Neulasta OnPro applied to right arm, green light flashing and canister reads full at discharge. Patient verbalizes understanding of instructions. P: Return to clinic as scheduled. documented in this encounter Plan of Treatment Upcoming Encounters Date Type Department Care Team (Late st Contact Info) Description 02/13/2025 1:00 PM EDT Office Visit Radiation Oncology at [address] [phone] Eleonora Mensah MD [facility] [place] [address] documented as of this encounter Results * Comprehensive metabolic panel (non-fasting) (09/06/2020 8:57 AM EDT) Glucose 94 65 - 199 mg/dL [facility] Comment:Diabetes: >=200 mg/d L plus symptoms Blood Urea Nitrogen 10 8 - 18 mg/dL [facility] Creatinine 0.73 0.70 - 1.20 mg/dL [facility] Sodium 138 135 - 145 mmol/L [facility] Potassium 4.2 3.5 - 5.0 mmol/L [facility] Comment: Please note: ??Patients with WBC >100,000 may have falsely elevated Potassium levels. ??For accurate Potassium quantification in these patients send serum separator tube (gold top) for subsequent determinations. ??Contact the Clinical Chemistry Laboratory if there are any questions. Chloride 105 98 - 107 mmol/L [facility] Carbon Dioxide 25 22 - 31 mmol/L [facility] Anion Gap 8 5 - 15 mmol/L [facility] Calcium 9.3 8.5 - 10.5 mg/dL [facility] Protein, Total 7.8 6.1 - 8.0 gm/dL [facility] Albumin 4.2 3.2 - 5.2 gm/dL [facility] Aspartate Aminotransferase 19 0 - 30 unit/L [facility] Alanine Aminotransferase 26 0 - 30 unit/L [facility] Alkaline Phosphatase 86 35 - 105 unit/L [facility] Bilirubin, Total 0.3 0.2 - 1.3 mg/dL [facility] Est Glomerular Filtration Rate 113 >=60 mL/min/1. 73 m?? [facility] Comment: This patient? s estimated glomerular filtration rate (eGFR) is between 113 mL/min/1.73 m2 (patients with less muscle mass) and 131 mL/min/1.73 m2 (patients with more muscle mass) [...] and symptoms in addition to eGFR. Blood specimen (specimen) 09/06/2020 8:57 AM EDT 09/06/2020 9:08 AM EDT Narrative Resulting Agency Comment Spec In Lab Tyra Cornejo MD CHEMISTRY ORDERABLE S [facility] [place] [address] documented in this encounter Visit Diagnoses Diagnosis 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, estrogen receptor positive documented in this encounter Administered Medications Inactive Administered Medications - up to 3 most recent administrations Medication Order MAR Action Action Date Dose Rate Site aprepitant (CINVANTI) injection Emul 130 mg 130 mg, Intravenous, Administer over 2 Minutes, ONCE, 1 dose, On Alannah 09/06/20 at 1115, Alternative administration of IV push over 2 minutes is a recommendation from the care coordination manager. Administer prior to chemotherapy., Routine Given 09/06/2020 12:58 PM EDT 130 mg CARBOplatin (Paraplatin) 900 mg in dextrose 5% 340 mL infusion 900 mg (Target AUC = 6), Intravenous, ONCE, 1 dose, On Alannah 09/06/20 at 1215, Administer over 30 Minutes, Warning Vesicant/Irritant Medication New Bag 09/06/2020 4:04 PM EDT 900 mg 680 mL/hr dexamethasone (PF) (Decadron) (10 mg/mL) injection 10 mg 10 mg, Intravenous, ONCE, 1 dose, On [place] 09/06/20 at 1115, Administer 60 minutes prior to DOCEtaxel Given 09/06/2020 12:48 PM EDT 10 mg diphenhydrAMINE (Benadryl) capsule 50 mg 50 mg, Oral, ONCE, 1 dose, On [place] 09/06/20 at 1115, Administer 60 minutes prior to DOCEtaxel, Routine Given 09/06/2020 12:47 PM EDT 50 mg DOCEtaxeL (Taxotere) 140 mg in sodium chloride 0.9% Non-PVC 257 mL infusion 140 mg, Intravenous, ONCE, 1 dose, On Alannah 09/06/20 at 1215, Administer over 60 Minutes, Warning Vesicant/Irritant Medication Dose Ordered = 153 mg (75 mg/m2). Pharmacist rounded dose per procedure. New Bag 09/06/2020 2:53 PM EDT 140 mg 257 mL/hr famotidine (Pepcid) (10 mg/mL) injection 20 mg 20 mg, Intravenous, ONCE, 1 dose, On [place] 09/06/20 at 1115, Administer 60 minutes prior to DOCEtaxel Given 09/06/2020 12:53 PM EDT 20 mg goserelin (ZOLADEX) implant 3.6 mg 3.6 mg, Subcutaneous, ONCE, 1 dose, On [place] 09/06/20 at 1115, Routine, This agent is restricted to outpatient use. Is this drug being given as an outpatient? Yes Given 09/06/2020 4:47 PM EDT 3.6 mg Left Lower Quadrant heparin (pf) (porcine) (100 units/mL) flush 5 mL syringe 500 Units 500 Units, Intravenous, ONCE PRN, Starting on Alannah 09/06/20 at 1047, Until Thu09/07/20 at 0436, Line Care, Refer to Intravenous (IV) Procedure: Accessing Implanted Vascular Access Devices (744) procedure and/or Intravenous (IV) Job Aid: Adult Flushing & Catheter Care (9859) job aid for additional information regarding guidelines and administration., Routine Given 09/06/2020 4:41 PM EDT 500 Units lidocaine (Xylocaine) 1% (10 mg/mL) injection 10 mg 10 mg (1 mL), Subcutaneous, ONCE, 1 dose, On Alannah 09/06/20 at 1115, Order either Ice or lidocaine for the injection. Inject up to 3 mL, Routine Given 09/06/2020 4:43 PM EDT 10 mg loperamide (Imodium A-D) capsule 2 mg 2 mg, Oral, ONCE, 1 dose, On [place]annah 09/06/20 at 1115, Do not exceed 16 mg/day., Routine Given 09/06/2020 12:46 PM EDT 2 mg palonosetron (Aloxi) (0.25 mg/mL) injection 0.25 mg 0.25 mg, Intravenous, ONCE, 1 dose, On [place]annah 09/06/20 at 1115, Administer over 30 seconds., Routine Given 09/06/2020 12:56 PM EDT 0.25 mg pegfilgrastim (Neulasta Onpro) (6 mg/0.6 mL) injection kit 6 mg 6 mg, Subcutaneous, ONCE, 1 dose, On Alannah 09/06/20 at 1115, Allow the prefilled syringe co-packaged with the on-body injector to reach room temperature at least 30 minutes prior to administration. , Routine, This agent is restricted to outpatient use. Is this drug being given as an outpatient? Yes Given 09/06/2020 4:53 PM EDT 6 mg Right Arm pertuzumab (Perjeta) 420 mg in sodium chloride 0.9% 264 mL infusion 420 mg, Intravenous, ONCE, 1 dose, On Alannah 09/06/20 at 1215, Administer over 30 Minutes, This agent is restricted to outpatient use. Is this drug being given as an outpatient? Yes New Bag 09/06/2020 1:07 PM EDT 420 mg 528 mL/hr sodium chloride 0.9 % (flush) flush 5-20 mL 5-20 mL, Intravenous, EVERY 1 MIN PRN, Starting on Alannah 09/06/20 at 1047, Until Thu09/07/20 at 0436, Line Care, Flush pertains to all indwelling lines. Flush per protocol found in the job aid using the link provided on this medication record. Refer to Intravenous (IV) Job Aid: Adult Flushing & Catheter Care (4781) job aid for additional information regarding guidelines and administration., Routine Given 09/06/2020 4:39 PM EDT 20 mLs TRASTuzumab-anns (Kanjinti) 510 mg in sodium chloride 0.9% 274.31 mL infusion 510 mg (rounded from 513 mg = 6 mg/kg/dose ? 85.5 kg Treatment plan Recorded weight), Intravenous, ONCE, 1 dose, On Alannah 09/06/20 at 1215, Administer over 30 Minutes, Incompatible in D5W, This agent is restricted to outpatient use. Is this drug being given as an outpatient? Yes New Bag 09/06/2020 2:12 PM EDT 510 mg 548.6 mL/hr documented in this encounter Care Teams Check Services Clerk Relationship Specialty Start Date End Date Charleen Williamson, IVY [address] [place] [address] PCP - General Family Medicine 06/29/20 documented as of this encounter
--- OUTSIDE RECORDS SUMMARY | 2024-05-09 14:05 | XMS_ITS | Encounter Summary ---
Author Organization [facility] Address [facility] [place] [address] Care Team Providers Care Highway Construction Inspector Name Role Phone Charleen Williamson APRN Primary Care Provider [phone] [phone] Reason for Visit * Treatment/Therapy Plan Authorization [...] [id number] Romie (Trastuzumab-anns) Tyra Cornejo MD [facility] [address] [place] [address] [facility] [place] [address] [place] [address] Referral ID Status Reason Start Date Expiration Date Visits Re quested Visits Authorized [id number] Closed 07/20/2020 07/20/2021 99 99 Encounter Details Date Type Department Care Team (Latest Contact Info) Description 2020 10:00 AM EDT - 2020 10:11 AM EDT Hospital Encounter Hematology [place] [address] Malignant neoplasm of overlapping sites [...] 8 HOURS NEEDED FOR ANXIETY 07/09/2020 clotrimazole (MYCELEX) 10 mg Jennifer Take 1 tablet by mouth 5 times daily. One tablet dissolved in the mouth five times daily for 7 to 14 days. 70 tablet 09/13/2020 10/18/2020 dexamethasone (Decadron) 4 mg Tablet Take 1 [...] 2 times daily. 10 tablet 08/25/2020 10/18/2020 omeprazole (PriLOSEC) 20 mg Capsule, Delayed Release(E.C.) [...] Progress Notes * Kymberly Harris RN - 2020 10:32 AM EDT Patient Name: Alis Silva Patient Age: 30 y.o. Birthdate: 1990 Admit date: 2020 Attending Physician: No att. providers found Access visit. See MAR and/or flowsheet. documented in this encounter Miscellaneous Notes * Addendum Note - Sherita Lainez RN - 2020 11:37 AM EDTEncounter addended by: Sherita Lainez RN on: 2020 11:37 AM Actions taken: Flowsheet accepted, Allergies modified documented in this encounter Plan of Treatment Upcoming Encounters Date Type Department Care Team (Late st Contact Info) Description 02/13/2025 1:00 PM EDT Office Visit Radiation Oncology at [address] [address] Eleonora Mensah MD [facility] [place] [address] documented as of this encounter Procedures Procedure Name Priority Date/Time Associated Diagnosis Comments HEMOGRAM STAT 2020 10:25 AM EDT 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, estrogen receptor positive DIFFERENTIAL, AUTOMATED STAT 2020 10:25 AM EDT 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, estrogen receptor positive HC CBC,PLT & AUTO DIFF STAT 10:25 AM EDT 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, estrogen receptor positive COMPREHENSIVE METABOLIC PANEL STAT 2020 10:25 AM EDT 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, estrogen receptor positive documented in this encounter Results * Differential, Automated (2020 10:25 AM EDT) Neutrophil % 60.9 % [facility] Neutrophil Absolute 4.02 1.70 - 6.10 x10(3)/[facility] Lymph % 30.7 % [facility] Lymphocytes Abs 2.0 0.9 - 3.2 x10(3)/[facility] Monocyte % 7.0 % [facility] Monocyte Abs 0.5 0.3 - 0.9 x10(3)/[facility] Eos % 0.0 % [facility] Eosinophils Abs 0.0 0.0 - 0.4 x10(3)/[facility] Basophil % 1.1 % [facility] Baso Absolute 0.1 0.0 - 0.1 x10(3)/[facility] Immature Gran % 0.30 % [facility] Comment: Immature granulocytes(IG's)percentage and absolute count will include metamyelocytes, myelocytes, and promyelocytes. Blood smears from CBCs yielding IG's will be scanned manually for concordance. If this scan disagrees with the automated IG or if promyelocytes are noted, a manual differential will be performed. Immature Gran Absolute 0.02 0.00 - 0.04 x10(3)/mcL [facility] Blood 2020 10:2 5 AM EDT 2020 11:06 AM EDT Narrative Resulting Agency Comment Spec In Lab Barbara CAIN HEMATOLOGY ORDERABLE S [facility] [place] [address] * (ABNORMAL) Hemogram (2020 10:25 AM EDT) White Blood Cell 6.6 4.0 - 9.5 x10(3)/mc L [facility] Red Blood Cell 3.52(L) 4.00 - 5.21 x10(6)/mc L [facility] Hemoglobin 11.3(L) 11.7 - 15.5 gm/dL [facility] Hematocrit 32.2(L) 35.7 - 45.8 % [facility] Mean Cell Volume 91.5 82.6 - 94.4 fL [facility] Mean Cell Hemoglobin 32.1(H) 27.1 - 32.0 pg [facility] Mean Cell Hemoglobin Concentration 35.1(H) 31.7 - 35.0 gm/dL [facility] Platelet 146 145 - 357 x10(3)/mc L [facility] RDW Standard Deviation 49.1(H) 37.0 - 46.0 fL [facility] RDW coefficient of variation 14.9(H) 11.5 - 14.1 % [facility] Mean Platelet Volume 8.6 7.6 - 12.9 fL [facility] NRBC% auto 0.0 % [facility] NRBC Absolute 0.000 0.000 - 0.000 x10(3)/mc L [facility] Blood 2020 10:2 5 AM EDT 2020 11:06 AM EDT Narrative Resulting Agency Comment Spec In Lab Barbara CAIN HEMATOLOGY ORDERABLE S [facility] [place] [address] * (ABNORMAL) Comprehensive metabolic panel (non-fasting) (2020 10:25 AM EDT) Glucose 98 65 - 199 mg/dL [facility] Comment:Diabetes: >=200 mg/d L plus symptoms Blood Urea Nitrogen 9 8 - 18 mg/dL [facility] Creatinine 0.82 0.70 - 1.20 mg/dL [facility] Sodium 140 135 - 145 mmol/L [facility] Potassium 4.2 3.5 - 5.0 mmol/L [facility] Comment: Please note: ??Patients with WBC >100,000 may have falsely elevated Potassium levels. ??For accurate Potassium quantification in these patients send serum separator tube (gold top) for subsequent determinations. ??Contact the Clinical Chemistry Laboratory if there are any questions. Chloride 105 98 - 107 mmol/L [facility] Carbon Dioxide 26 22 - 31 mmol/L [facility] Anion Gap 9 5 - 15 mmol/L [facility] Calcium 9.3 8.5 - 10.5 mg/dL [facility] Protein, Total 7.8 6.1 - 8.0 gm/dL [facility] Albumin 4.4 3.2 - 5.2 gm/dL [facility] Aspartate Aminotransferase 24 0 - 30 unit/L [facility] Alanine Aminotransferase 36(H) 0 - 30 unit/L [facility] Alkaline Phosphatase 83 35 - 105 unit/L [facility] Bilirubin, Total 0.4 0.2 - 1.3 mg/dL [facility] Est Glomerular Filtration Rate 97 >=60 mL/min/1. 73 m?? [facility] Comment: This patient? s estimated glomerular filtration rate (eGFR) is between 97 mL/min/1.73 m2 (patients with less muscle mass) and 113 mL/min/1.73 m2 (patients with more muscle mass) [...] and symptoms in addition to eGFR. Blood 2020 10:2 5 AM EDT 2020 11:06 AM EDT Narrative Resulting Agency Comment Spec In Lab Tyra Cornejo MD CHEMISTRY ORDERABLE S [facility] [place] [address] documented in this encounter Visit Diagnoses Diagnosis 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, estrogen receptor positive documented in this encounter Administered Medications Inactive Administered Medications - up to 3 most recent administrations Medication Order MAR Action Action Date Dose Rate Site sodium chloride 0.9 % (flush) flush 5-20 mL 5-20 mL, Intravenous, EVERY 1 MIN PRN, Starting on Alannah 09/27/20 at 1012, Until Thu09/28/20 at 0436, Line Care, Flush pertains to all indwelling lines. Flush per protocol found in the job aid using the link provided on this medication record. Refer to Intravenous (IV) Job Aid: Adult Flushing & Catheter Care (6220) job aid for additional information regarding guidelines and administration., Routine Given 2020 10:32 AM EDT 20 mLs documented in this encounter Care Teams Highway Construction Inspector Relationship Specialty Start Date End Date Charleen Williamson APRN [address] [place] [address] PCP - General Family Medicine 3/5/21 documented as of this encounter
--- OUTSIDE RECORDS SUMMARY | 2024-05-09 14:05 | XMS_ITS | Encounter Summary ---
Author Organization [facility] Address [facility] [place] [address] Care Team Providers Care Wrapping Machine Tender Name Role Phone Charleen Williamson APRN Primary Care Provider [phone] Reason for Visit * Treatment/Therapy Plan Authorization [...] (PARAPLATIN) [id number] Romie (Trastuzumab-anns) Tyra Cornejo MD [facility] [place] [address] [facility] [place] [facility] Onc [address] [place] [address] Referral ID Status Reason Start Date Expiration Date Visits Re quested Visits Authorized [id number] Closed 07/20/2020 07/20/2021 99 99 Encounter Details Date Type Department Care Team (Latest Contact Info) Description 10/18/2020 9:47 AM EDT - 10/18/2020 11:59 PM EDT Hospital Encounter [place] [address] Malignant neoplasm of overlapping sites [...] Progress Notes * Eleonora Allen RN - 10/18/2020 5:42 PM EDT Patient Name: Alis Silva Patient Age: 30 y.o. Birthdate: 1990 Admit date: 10/18/2020 Attending Physician: Shila att. providers found Alis Silva, 30 y.o. female with diagnosis of BREAST CA is here for chemotherapy infusion of PERTUZUMAB, TRASTUZUMAB, DOCETAXEL AND CARBOPLATIN; ONPRO application and Zoladex injection. PROTOCOL: No CYCLE: 4 DAY: 1 S: Pt. offers no complaints at this time. Reviewed plan of care for infusion visit; patient verbalized understanding of plan as outlined. O: Chemotherapy orders independently verified for correct drug name, route and dosage per patient'sheight, weight and BSA by Eleonora Allen RN and onsite pharmacist. Chemotherapy administered per hospital policy. REACTIONS (DESCRIPTION, TIME, INTERVENTION AND EFFECTIVENESS) None reported. Patient was observed 30mins post Pertuzumab/before Trastuzumab; no s/s of reaction. A: Pt. Tolerated treatment well. Alis Silva confirms that all questions and issues have been addressed. P: Return to clinic as scheduled. documented in this encounter Plan of Treatment Upcoming Encounters Date Type Department Care Team (Late st Contact Info) Description 02/13/2025 1:00 PM EDT Office Visit Radiation Oncology at [address] [phone] Eleonora Mensah MD [facility] [place] [address] documented as of this encounter Results * (ABNORMAL) Comprehensive metabolic panel (non-fasting) (10/18/2020 10:05 AM EDT) Glucose 132 65 - 199 mg/dL [facility] Comment:Diabetes: >=200 mg/d L plus symptoms Blood Urea Nitrogen 12 8 - 18 mg/dL [facility] Creatinine 0.71 0.70 - 1.20 mg/dL [facility] Sodium 139 135 - 145 mmol/L [facility] Potassium 3.9 3.5 - 5.0 mmol/L [facility] Comment: Please note: ??Patients with WBC >100,000 may have falsely elevated Potassium levels. ??For accurate Potassium quantification in these patients send serum separator tube (gold top) for subsequent determinations. ??Contact the Clinical Chemistry Laboratory if there are any questions. Chloride 104 98 - 107 mmol/L [facility] Carbon Dioxide 26 22 - 31 mmol/L [facility] Anion Gap 9 5 - 15 mmol/L [facility] Calcium 9.4 8.5 - 10.5 mg/dL [facility] Protein, Total 7.5 6.1 - 8.0 gm/dL [facility] Albumin 4.3 3.2 - 5.2 gm/dL [facility] Aspartate Aminotransferase 26 0 - 30 unit/L [facility] Alanine Aminotransferase 36(H) 0 - 30 unit/L [facility] Alkaline Phosphatase 74 35 - 105 unit/L [facility] Bilirubin, Total 0.3 0.2 - 1.3 mg/dL [facility] Est Glomerular Filtration Rate 116 >=60 mL/min/1. 73 m?? [facility] Comment: This patient? s estimated glomerular filtration rate (eGFR) is between 116 mL/min/1.73 m2 (patients with less muscle mass) and 134 mL/min/1.73 m2 (patients with more muscle mass) [...] and symptoms in addition to eGFR. Blood 10/18/2020 10:0 5 AM EDT 10/18/2020 10:46 AM EDT Narrative Resulting Agency Comment Spec In Lab Tyra Cornejo MD CHEMISTRY ORDERABLE S [facility] [place] [address] documented in this encounter Visit Diagnoses Diagnosis 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, estrogen receptor positive documented in this encounter Administered Medications Inactive Administered Medications - up to 3 most recent administrations Medication Order MAR Action Action Date Dose Rate Site aprepitant (CINVANTI) injection Emul 130 mg 130 mg, Intravenous, Administer over 2 Minutes, ONCE, 1 dose, On Alannah 10/18/20 at 1200, Alternative administration of IV push over 2 minutes is a recommendation from the lead miner. Administer prior to chemotherapy., Routine Given 10/18/2020 1:03 PM EDT 130 mg CARBOplatin (Paraplatin) 900 mg in dextrose 5% 340 mL infusion 900 mg (Target AUC = 6), Intravenous, ONCE, 1 dose, On Alannah 10/18/20 at 1300, Administer over 30 Minutes, Warning Vesicant/Irritant Medication New Bag 10/18/2020 4:14 PM EDT 900 mg 680 mL/hr dexamethasone (PF) (Decadron) (10 mg/mL) injection 10 mg 10 mg, Intravenous, ONCE, 1 dose, On Alannah 10/18/20 at 1200, Administer 60 minutes prior to DOCEtaxel Given 10/18/2020 1:06 PM EDT 10 mg diphenhydrAMINE (Benadryl) capsule 50 mg 50 mg, Oral, ONCE, 1 dose, On Alannah 10/18/20 at 1200, Administer 60 minutes prior to DOCEtaxel, Routine Given 10/18/2020 12:53 PM EDT 50 mg DOCEtaxeL (Taxotere) 160 mg in sodium chloride 0.9% Non-PVC 258 mL infusion 160 mg, Intravenous, ONCE, 1 dose, On Thu10/18/20 at 1300, Administer over 60 Minutes, Warning Vesicant/Irritant Medication Dose Ordered = 153 mg (75 mg/m2). Pharmacist rounded dose per procedure. New Bag 10/18/2020 2:58 PM EDT 160 mg 258 mL/hr famotidine (Pepcid) (10 mg/mL) injection 20 mg 20 mg, Intravenous, ONCE, 1 dose, On Alannah 10/18/20 at 1200, Administer 60 minutes prior to DOCEtaxel Given 10/18/2020 12:58 PM EDT 20 mg goserelin (ZOLADEX) implant 3.6 mg 3.6 mg, Subcutaneous, ONCE, 1 dose, On Alannah 10/18/20 at 1200, Routine, This agent is restricted to outpatient use. Is this drug being given as an outpatient? Yes Given 10/18/2020 5:10 PM EDT 3.6 mg Abdominal Tissue heparin (pf) (porcine) (100 units/mL) flush 5 mL syringe 500 Units 500 Units, Intravenous, ONCE PRN, Starting on Thu10/18/20 at 1136, Until Thu10/19/20 at 0436, Line Care, Refer to Intravenous (IV) Procedure: Accessing Implanted Vascular Access Devices (514) procedure and/or Intravenous (IV) Job Aid: Adult Flushing & Catheter Care (0836) job aid for additional information regarding guidelines and administration., Routine Given 10/18/2020 4:50 PM EDT 500 Units lidocaine (Xylocaine) 1% (10 mg/mL) injection 10 mg 10 mg (1 mL), Subcutaneous, ONCE, 1 dose, On Alannah 10/18/20 at 1200, Order either Ice or lidocaine for the injection. Inject up to 3 mL, Routine Given 10/18/2020 5:03 PM EDT 10 mg Abdominal Tissue palonosetron (Aloxi) (0.25 mg/mL) injection 0.25 mg 0.25 mg, Intravenous, ONCE, 1 dose, On Alannah 10/18/20 at 1200, Administer over 30 seconds., Routine Given 10/18/2020 12:55 PM EDT 0.25 mg pegfilgrastim (Neulasta Onpro) (6 mg/0.6 mL) injection kit 6 mg 6 mg, Subcutaneous, ONCE, 1 dose, On Alannah 10/18/20 at 1200, Allow the prefilled syringe co-packaged with the on-body injector to reach room temperature at least 30 minutes prior to administration. , Routine, This agent is restricted to outpatient use. Is this drug being given as an outpatient? Yes Given 10/18/2020 4:50 PM EDT 6 mg pertuzumab (Perjeta) 420 mg in sodium chloride 0.9% 264 mL infusion 420 mg, Intravenous, ONCE, 1 dose, On Alannah 10/18/20 at 1300, Administer over 30 Minutes, This agent is restricted to outpatient use. Is this drug being given as an outpatient? Yes New Bag 10/18/2020 1:13 PM EDT 420 mg 528 mL/hr TRASTuzumab-anns (Kanjinti) 510 mg in sodium chloride 0.9% 274.31 mL infusion 510 mg (rounded from 513 mg = 6 mg/kg/dose ? 85.5 kg Treatment plan Recorded weight), Intravenous, ONCE, 1 dose, On Alannah 10/18/20 at 1300, Administer over 30 Minutes, Incompatible in D5W, This agent is restricted to outpatient use. Is this drug being given as an outpatient? Yes New Bag 10/18/2020 2:18 PM EDT 510 mg 548.6 mL/hr documented in this encounter Care Teams Wrapping Machine Tender Relationship Specialty Start Date End Date Charleen Williamson APRN [address] [place] [address] PCP - General Family Medicine 06/29/20 documented as of this encounter
--- OUTSIDE RECORDS SUMMARY | 2024-05-09 14:05 | XMS_ITS | Encounter Summary ---
[place] [address] Care Team Providers Care Bass Guitar Teacher Name Role Phone Charleen Williamson APRN Primary Care Provider [phone] [phone] Reason for Visit * Reason Onset Date Comments Abdominal Cramping 08/30/2020 Vaginal Bleeding 08/30/2020 Encounter Details Date Type Department Care Team (Late st Contact Info) Description 08/30/2020 Telephone Hematology [place] [phone] Subha Holt RN Abdominal Cramping; Vaginal Bleeding Social History Tobacco Use Types Packs/Day Years [...] Telephone Encounter - Subha Holt RN - 08/30/2020 8:46 AM EDT Images from the original note were not included. TRIAGE CALL Message received from new home sales consultant: Danni Ryan [facility] [place] Hem Onc Triage Breast Good morning, Alis called this morning, as she is having some spotting and cramping, which started last night. First dose of Zoladex 08/14. Could you please give her a call on her cell [phone]? Diagnosis/current treatment: Breast cancer/ CARBOplatin / DOCEtaxel / TRASTuzumab / PERTuzumab/Neulasta Call placed to patient. Symptom Review per conversation with caller: Light period. Started last night. Tolerable cramping. Diarrhea better but if she doesn't take the initial dose of imodium everyday then her bowels get loose and go to liquid. No more floaters in her eyes. Plan of Care and actions for worsening condition per discussion with PAYTON Moffett Sarah K, PA Andrews, Patricia A, RN It is typical, and she has been through so many hormonal changes recently from being on Depot to doing IVF to starting zoladex. It varies but should start to even out after the next 1 or 2 injections. Discussed information about spotting and cramping provided by PAYTON Moffett. Patient states she was being cautious and letting us know. Pt/responsible caregiver able to read back and verbalize understanding of plan and intention to comply with plan/disposition: Yes Pt/responsible caregiver able to verbalize understanding of and intention to call clinic with any new or worsening signs or symptoms: yes documented in this encounter Plan of Treatment Upcoming Encounters Date Type Department Care Team (Late st Contact Info) Description 02/13/2025 1:00 PM EDT Office Visit Radiation Oncology at [address] [phone] Eleonora Mensah MD [facility] [place] [address] documented as of this encounter Visit Diagnoses Not on filedocumented in this encounter Care Teams Bass Guitar Teacher Relationship Specialty Start Date End Date Charleen Williamson APRN [address] [place] [address] PCP - General Family Medicine 06/29/20 documented as of this encounter
--- OUTSIDE RECORDS SUMMARY | 2024-05-09 14:05 | XMS_ITS | Encounter Summary ---
[place] [address] Care Team Providers Care Berry Grower Name Role Phone Charleen Williamson APRN Primary Care Provider [phone] [phone] Reason for Visit * Reason Onset Date Comments Other 08/27/2020 nasal dryness Encounter Details Date Type Department Care Team (Late st Contact Info) Description 08/27/2020 Telephone [place]ematology [place] [phone] Subha Holt RN Other (nasal dryness) Social History Tobacco Use Types Packs/Day Years [...] Telephone Encounter - Subha Holt RN - 08/27/2020 4:46 PM EDT Images from the original note were not included. Message received from gear lapper: Dafne Cabrera [facility] Triage Breast Call back [phone] Alis called with c/o dryness in her nose. She is running a humidifier in her bedroom and living room of the house but it's not helping. She's wondering if there is something she can do to help withdryness. Call placed to patient. Her nose has been very dry and she is already running a humidifier at night. Denies nose bleeds. Suggested she could purchase OTC saline spray at any pharmacy that she can spray in her nose to moisten the mucous membranes. She should follow the animal husbandry teacher's instructions for use. She could alsotry putting some petroleum/unpetroleum jelly in each of her nares at bed time to help with overnight dryness. Patient verbalizes understanding to call with new or worsening s/s. documented in this encounter Plan of Treatment Upcoming Encounters Date Type Department Care Team (Late st Contact Info) Description 02/13/2025 1:00 PM EDT Office Visit Radiation Oncology at [address] [phone] Eleonora Mensah MD [facility] [place] [address] documented as of this encounter Visit Diagnoses Not on filedocumented in this encounter Care Teams Berry Grower Relationship Specialty Start Date End Date Charleen Williamson APRN [address] [place] [address] PCP - General Family Medicine 06/29/20 documented as of this encounter
--- OUTSIDE RECORDS SUMMARY | 2024-05-09 14:05 | XMS_ITS | Encounter Summary ---
[place] [address] Care Team Providers Care Commercial Credit Portfolio Manager Name Role Phone Charleen Williamson APRN Primary Care Provider [phone] Reason for Visit * Reason Onset Date Comments Shortness of Breath 10/22/2020 Encounter Details Date Type Department Care Team (Late st Contact Info) Description 10/22/2020 Telephone [place] [id number] Subha Holt RN Shortness of Breath Social History Tobacco Use Types Packs/Day Years [...] Telephone Encounter - Subha Holt RN - 10/22/2020 3:28 PM EDT Images from the original note were not included. TRIAGE CALL Message received from dental secretary: Dafne Cabrera [facility] Hem Onc Triage Breast Call back [phone] Alis called with various symptoms issues. Last night she was having issues with breathing when she laid flat or on her side last night to go to bed. When she woke up this morning her ribs hurt on both sides. She is also still having issues with getting the raw spot in her left nostril to heal andthe scab is almost blocking the entire left side of her nostril. She has also had about 6 loose stools today but doesn't know if she should take her Lomotil or not.She also skipped her AM dose of steroid and isn't sure if that is causing her loose bowels. Diagnosis/current treatment: Right breast cancer/CARBOplatin / DOCEtaxel / TRASTuzumab / PERTuzumab/Neulasta/21 day cycle. 10/18 last C4 Call placed to patient Symptom Review per conversation with caller: Last night when she went to bed it felt harder than normal to breath. Tried back and side sleeping. When she woke she had right sided 4/10 rib pain that went away after a couple of hours. Having to take deep breaths more often than normal. Denies chest pain but when she takes deep breaths her throat hurts a little. Denies arm or shoulder pain. Even though rib pain went away it still feels like she isn't getting a full breath. The first anxiety med she took she had some breating issues. Denies fevers Raw spot in left nare and was completely blocking nare last night. Running the humidifier at night but right now she is staying with her parents as her is in the hospital with fevers. Bad sinus infection that got worse. 6 episodes of liquid diarrhea today. She has only taken one imodium today and will follow up with more. Provider dropped her steroid dose down and today was the first day of the lower dose. More fatigue, more nausea with lower steroid And generally feeling worse. Plan of Care and actions for worsening condition per discussion with Tyra Cornejo MD. Tyra Cornejo MD Andrews, Patricia A RN She should come in for labs, CXR vitals MD ag (I have time this afternoon I think) and referral to ED for further work up if anything abnormal. Call placed to patient to review plan of care per provider. Alis states that her breathing seems a little better today. No diarrhea today. White stuff on tongue is back. She has been using the peridex. Patient agrees to come in to today for CXR, provider visit and labs. Alis will mention thrush to provider again to possibly receive another Rx for fluconazole to treat thrush. Pt/responsible caregiver able to read back and [...] EDT Office Visit Radiation Oncology at [address] [phone] Eleonora Mensah MD [facility] [place] [address] documented as of this encounter Visit Diagnoses Not on filedocumented in this encounter Care Teams Commercial Credit Portfolio Manager Relationship Specialty Start Date End Date Charleen Williamson APRN [address] [place] [address] PCP - General Family Medicine 06/29/20 documented as of this encounter
--- OUTSIDE RECORDS SUMMARY | 2024-05-09 14:05 | XMS_ITS | Encounter Summary ---
Author Organization [facility] Address [facility] [place] [address] Care Team Providers Care Pharmacy Customer Care Specialist Name Role Phone Charleen Williamson APRN Primary Care Provider [phone] Encounter Details Date Type Department Care Team (Late st Contact Info) Description 10/18/2020 11:00 AM EDT Office Visit Hematology [place] [phone] Tyra Cornejo MD [facility] [address] [place] [address] Malignant neoplasm of central portion of right [...] Sign Reading Time Taken Comments Blood Pressure 145/96 10/18/2020 10:48 AM EDT Pulse 82 10/18/2020 10:48 AM EDT Temperature 37.1 ??C (98.8 ??F) 10/18/2020 10:48 AM E DT Respiratory Rate 16 10/18/2020 10:48 AM EDT Oxygen Saturation 99% 10/18/2020 10:48 AM EDT Inhaled Oxygen Concentration - - Weight 88.6 kg (195 lb 5.2 oz) 10/18/2020 10:48 AM EDT Height 174.1 cm (5' 8.54) 10/18/2020 10:48 AM E DT Body Mass Index 29.23 10/18/2020 10:48 AM EDT documented in this encounter Progress Notes * Tyra Cornejo MD - 10/18/2020 11:00 AM EDT Patient ID: Alis Silva is a 30 y.o. female. ?? Cc: breast cancer ?? Interval history: Alis is here by herself today. Daren is in the hospital due to fevers, covid negative, and they've both been vaccinated. She is doing ok today. Side effects have improved, managed reasonably well with supportive care. Notices increased agitation at the end of the first week, taking dex 4 mg daily for that week. Takes compazine 2x/ cycle, usually in the first week, also immodium once or twice. No lomotil. Leg swelling, mouth pain and dry eye has resolved. No vaginal bleeding, spotting or cramping. Not much work to do this time of year. Is working out on the treadmill an hour a day. 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 ?? 29 yo self-palpated a mass under the right nipple when she noticed it had inverted at the end of May 2020. [place] [facility] [place] HER2 + right invasive carcinoma [...] vaccination planned 08/14 Cycle 1 TCH-P 08/17/20 ?? Fhx: PGM with breast cancer in her 80's; paternal aunt with ovarian ca; 2 brothers without cancer; no cousins with breast or ovarian cancer. menses age 14 to present; no menses while on Depo provera. ? Review of Systems Constitutional: Positive for activity change . Negative for appetite change, chills, diaphoresis, fever and unexpected weight change. HENT: Negative. Eyes: visual floaters have resolved. Respiratory: Negative. Gastrointestinal: Negative. Endocrine: Negative. Genitourinary: Negative. Musculoskeletal: Negative. No pain after neulasta. Skin: Right breast redness resolved. Allergic/Immunologic: Negative. Neurological: Negative. Hematological: Negative. Psychiatric/Behavioral: Negative. ? Objective: Physical Exam Vitals reviewed. HENT: Head: Normocephalic. Right Ear: External ear normal. Left Ear: External ear normal. Eyes: General: No scleral icterus. Cardiovascular: Rate and Rhythm: Normal rate. Pulses: Normal pulses. Pulmonary: Effort: Pulmonary effort is normal. Chest: Breasts: Right: Inverted nipple, mass palpable in central retroareolar region 3 cm, erythema and peau d'orange has resolved. No nipple discharge or tenderness. No palpable adenopathy. Abdominal: General: Bowel sounds are normal. Musculoskeletal: Cervical back: Normal range of motion. Skin: General: Skin is warm. Neurological: General: No focal deficit present. Mental Status: She is alert and oriented to person, place, and time. Mental status is at baseline. Psychiatric: Mood and Affect: Mood normal. Behavior: Behavior normal. Thought Content: Thought content normal. Judgment: Judgment normal. ? Assessment and Plan: ?? No problem-specific Assessment & Plan notes found for this encounter. ?? #1 Breast cancer--30 yo with Stage IB triple positive breast cancer, partial clinical response to cycle 1-3 TCHP. Multiple grade 1/2 toxicities, mostly resolved, managing well overall . ? #2 Chemotherapy--monitoring for toxicity--labs reviewed and meet parameters for treatment. ?? Diarrhea: grade 1, immodium prn. ?? Nausea--grade 1, dex reduce to 2 mg daily day 1-5 prn; compazine prn. #3 Fatigue--improved, continue normal activities and exercise as tolerated. ?? #4 Menopausal symptoms--continue goserelin, ?? #5 Bone health--no bone pain ?? #6 Medication management--as above, dex re-ordered with 2 mg tablets. ?? Plan: Cycle 4 today + goserelin ?? F/u 3 wks for cycle 5 + goserelin Last chemo planned for 11/29 Discuss timing of MRI with Dr. Hunt documented in this encounter Plan of Treatment Upcoming Encounters Date Type Department Care Team (Late st Contact Info) Description 02/13/2025 1:00 PM EDT Office Visit Radiation Oncology at [address] [phone] Eleonora Mensah MD [facility] [place] [address] documented as of this encounter Visit Diagnoses Diagnosis Malignant 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, estrogen receptor positive documented in this encounter Care Teams Pharmacy Customer Care Specialist Relationship Specialty Start Date End Date Charleen Williamson APRN [address] [place] [address] PCP - General Family Medicine 06/29/20 documented as of this encounter
--- OUTSIDE RECORDS SUMMARY | 2024-05-09 14:05 | XMS_ITS | Encounter Summary ---
Author Organization [facility] Address [facility] [place] [address] Care Team Providers Care Wildlife Conservationist Name Role Phone Charleen Williamson APRN Primary Care Provider [phone] Reason for Visit * Treatment/Therapy Plan Authorization [...] (PARAPLATIN) [id number] Romie (Trastuzumab-anns) Tyra Cornejo MD [facility] [address] HEMATOLOGY [place] [address] [facility] Hem Onc [address] [place] [address] Referral ID Status Reason Start Date Expiration Date Visits Re quested Visits Authorized [id number] Closed 07/20/2020 07/20/2021 99 99 Encounter Details Date Type Department Care Team (Latest Contact Info) Description 09/06/2020 8:44 AM EDT Hospital Encounter Hematology [place] [phone] Malignant neoplasm of overlapping sites [...] EVERY 8 HOURS NEEDED FOR ANXIETY 07/09/2020 nitrofurantoin (Macrobid) 100 mg Capsule Take 1 [...] Progress Notes * Lori Cohn RN - 09/06/2020 8:59 AM EDT Patient Name: Alis Silva Patient Age: 29 y.o. Birthdate: 1990 Admit date: 09/06/2020 Attending Physician: No att. providers found Access visit. See MAR and/or flowsheet. documented in this encounter Plan of Treatment Upcoming Encounters Date Type Department Care Team (Late st Contact Info) Description 02/13/2025 1:00 PM EDT Office Visit Radiation Oncology at [address] [phone] Eleonora Mensah MD [facility] [place] [address] documented as of this encounter Procedures Procedure Name Priority Date/Time Associated Diagnosis Comments HEMOGRAM STAT 09/06/2020 8:57 AM EDT 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, estrogen receptor positive DIFFERENTIAL, AUTOMATED STAT 09/06/2020 8:57 AM EDT 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, estrogen receptor positive HC CBC,PLT & AUTO DIFF STAT 8:57 AM EDT 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, estrogen receptor positive COMPREHENSIVE METABOLIC PANEL STAT 09/06/2020 8:57 AM EDT 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, estrogen receptor positive documented in this encounter Results * Differential, Automated (09/06/2020 8:57 AM EDT) Neutrophil % 63.5 % [facility] Neutrophil Absolute 5.62 1.70 - 6.10 x10(3)/[facility] Lymph % 25.6 % [facility] Lymphocytes Abs 2.3 0.9 - 3.2 x10(3)/[facility] Monocyte % 8.9 % [facility] Monocyte Abs 0.8 0.3 - 0.9 x10(3)/[facility] Eos % 0.3 % [facility] Eosinophils Abs 0.0 0.0 - 0.4 x10(3)/[facility] Basophil % 1.4 % [facility] Baso Absolute 0.1 0.0 - 0.1 x10(3)/[facility] Immature Gran % 0.30 % [facility] Comment: Immature granulocytes(IG's)percentage and absolute count will include metamyelocytes, myelocytes, and promyelocytes. Blood smears from CBCs yielding IG's will be scanned manually for concordance. If this scan disagrees with the automated IG or if promyelocytes are noted, a manual differential will be performed. Immature Gran Absolute 0.03 0.00 - 0.04 x10(3)/[facility] Blood specimen (specimen) 09/06/2020 8:57 AM EDT 09/06/2020 9:08 AM EDT Narrative Resulting Agency Comment Spec In Lab Barbara CAIN HEMATOLOGY ORDERABLE S [facility] [place] [address] * (ABNORMAL) Hemogram (09/06/2020 8:57 AM EDT) White Blood Cell 8.9 4.0 - 9.5 x10(3)/mc L [facility] Red Blood Cell 3.77(L) 4.00 - 5.21 x10(6)/mc L [facility] Hemoglobin 11.5(L) 11.7 - 15.5 gm/dL [facility] Hematocrit 33.1(L) 35.7 - 45.8 % [facility] Mean Cell Volume 87.8 82.6 - 94.[address] [facility] Mean Cell Hemoglobin 30.5 27.1 - 32.[address] [facility] Mean Cell Hemoglobin Concentration 34.7 31.7 - 35.0 gm/dL [facility] Platelet 190 145 - 357 x10(3)/mc L [facility] RDW Standard Deviation 38.3 37.0 - 46.[address] [facility] RDW coefficient of variation 12.3 11.5 - 14.1 % [facility] Mean Platelet Volume 8.6 7.6 - 12.[address] [facility] NRBC% auto 0.0 % [facility] NRBC Absolute 0.000 0.000 - 0.000 x10(3)/mc L [facility] Blood specimen (specimen) 09/06/2020 8:57 AM EDT 09/06/2020 9:08 AM EDT Narrative Resulting Agency Comment Spec In Lab Barbara CAIN HEMATOLOGY ORDERABLE S [facility] [place] [address] * Comprehensive metabolic panel (non-fasting) (09/06/2020 8:57 AM EDT) Glucose 94 65 - 199 mg/dL [facility] Comment:Diabetes: >=200 mg/d L plus symptoms Blood Urea Nitrogen 10 8 - 18 mg/dL [facility] Creatinine 0.73 0.70 - 1.20 mg/dL [facility] Sodium 138 135 - 145 mmol/L [facility] Potassium 4.2 3.5 - 5.0 mmol/L [facility] Comment: Please note: ??Patients with WBC >100,000 may have falsely elevated Potassium levels. ??For accurate Potassium quantification in these patients send serum separator tube (gold top) for subsequent determinations. ??Contact the Clinical Chemistry Laboratory if there are any questions. Chloride 105 98 - 107 mmol/L [facility] Carbon Dioxide 25 22 - 31 mmol/L [facility] Anion Gap 8 5 - 15 mmol/L [facility] Calcium 9.3 8.5 - 10.5 mg/dL [facility] Protein, Total 7.8 6.1 - 8.0 gm/dL [facility] Albumin 4.2 3.2 - 5.2 gm/dL [facility] Aspartate Aminotransferase 19 0 - 30 unit/L [facility] Alanine Aminotransferase 26 0 - 30 unit/L [facility] Alkaline Phosphatase 86 35 - 105 unit/L [facility] Bilirubin, Total 0.3 0.2 - 1.3 mg/dL [facility] Est Glomerular Filtration Rate 113 >=60 mL/min/1. 73 m?? [facility] CHEMISTRY ORDERABLE [facility] [place] [address] documented in this encounter Visit Diagnoses Diagnosis [...] MIN PRN, Starting on Alannah 09/06/20 at 0847, Until 09/07/20 at 0436, Line Care, Flush pertains to all indwelling lines. Flush per protocol found in the job aid using the link provided on this medication record. Refer to Intravenous (IV) Job Aid: Adult Flushing & Catheter Care (2621) job aid for additional information regarding guidelines and administration., Routine Given 09/06/2020 8:59 AM EDT 20 mLs documented in this encounter Care Teams Wildlife Conservationist Relationship Specialty Start Date End Date Charleen Williamson APRN [address] [place] [address] PCP - General Family Medicine 06/29/20 documented as of this encounter
--- OUTSIDE RECORDS SUMMARY | 2024-05-09 14:05 | XMS_ITS | Encounter Summary ---
Author Organization [facility]ly [facility] [place] [address] Care Team Providers Care Printing Equipment Mechanic Name Role Phone Charleen Williamson APRN Primary Care Provider [phone] [phone] Reason for Visit * Treatment/Therapy Plan Authorization [...] [id number] Romie (Trastuzumab-anns) Tyra Cornejo MD [facility] [place] [address] [facility] Hem Onc [address] [place] [address] Referral ID Status Reason Start Date Expiration Date Visits Re quested Visits Authorized [id number] Closed 07/20/2020 07/20/2021 99 99 Encounter Details Date Type Department Care Team (Latest Contact Info) Description 11/08/2020 10:26 AM EDT Hospital Encounter Hematology [place] [address] Malignant neoplasm of overlapping sites [...] EVERY 8 HOURS NEEDED FOR ANXIETY 07/09/2020 mupirocin (BACTROBAN) 2 % Ointment 0.1 g [...] Progress Notes * Thien Campoverde RN - 11/08/2020 11:08 AM EDT Access visit. See MAR and/or flowsheet. documented in this encounter Miscellaneous Notes * Addendum Note - Michaela Mcleod RN - 11/08/2020 1:58 PM EDTEncounter addended by: Michaela Mcleod RN on: 11/08/2020 1:58 PM Actions taken: Allergies modified * Addendum Note - Michaela Mcleod RN - 11/08/2020 12:28 PM EDTEncounter addended by: Michaela Mcleod RN on: 11/08/2020 12:28 PM Actions taken: Child order released for a procedure order documented in this encounter Plan of Treatment Upcoming Encounters Date Type Department Care Team (Late st Contact Info) Description 02/13/2025 1:00 PM EDT Office Visit Radiation Oncology at [address] [phone] Eleonora Mensah MD [facility] DR RADIATION ONCOLOGY [facility] [place] [address] documented as of this encounter Procedures Procedure Name Priority Date/Time Associated Diagnosis Comments COMPREHENSIVE METABOLIC PANEL STAT 11/08/2020 12:36 PM EDT Malignant 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, estrogen receptor positive HEMOGRAM STAT 11/08/2020 10:45 AM EDT 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, estrogen receptor positive DIFFERENTIAL, AUTOMATED STAT 11/08/2020 10:45 AM EDT 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, estrogen receptor positive HC CBC,PLT & AUTO DIFF STAT 10:45 AM EDT 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, estrogen receptor positive COMPREHENSIVE METABOLIC PANEL STAT 11/08/2020 10:45 AM EDT 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, estrogen receptor positive documented in this encounter Results * (ABNORMAL) Comprehensive metabolic panel (non-fasting) (11/08/2020 12:36 PM EDT) Glucose 96 65 - 199 mg/dL [facility] Comment:Diabetes: >=200 mg/d L plus symptoms Blood Urea Nitrogen 12 8 - 18 mg/dL [facility] Creatinine 0.65(L) 0.70 - 1.20 mg/dL [facility] Sodium 137 135 - 145 mmol/L [facility] Potassium Not Perf 3.5 - 5.0 [facility] Comment: Please note: ??Patients with WBC >100,000 may have falsely elevated Potassium levels. ??For accurate Potassium quantification in these patients send serum separator tube (gold top) for subsequent determinations. ??Contact the Clinical Chemistry Laboratory if there are any questions. Unable to quantitate due to sample hemolysis. ??Sample redraw suggested. called 11/08/20 13:32 to Barbara Cain Chloride 105 98 - 107 mmol/L [facility] Carbon Dioxide 24 22 - 31 mmol/L [facility] Anion Gap 8 5 - 15 mmol/L [facility] Calcium 8.9 8.5 - 10.5 mg/dL [facility] Protein, Total Not Perf 6.1 - 8.0 [facility] Comment: Unable to quantitate due to sample hemolysis. ??Sample redraw suggested. called 11/08/20 13:32 to Barbara Baezsh Albumin 4.3 3.2 - 5.2 gm/dL [facility] Aspartate Aminotransferase Not Perf 0 - 30 [facility] Comment: Unable to quantitate due to sample hemolysis. ??Sample redraw suggested. called 11/08/20 13:32 to Barbara Cain Alanine Aminotransferase Not Perf 0 - 30 [facility] Comment: Unable to quantitate due to sample hemolysis. ??Sample redraw suggested. called 11/08/20 13:32 to Barbara Baezsh Alkaline Phosphatase Not Perf 35 - 105 [facility] Comment: Unable to quantitate due to sample hemolysis. ??Sample redraw suggested. called 11/08/20 13:32 to Barbara Baezsh Bilirubin, Total 0.4 0.2 - 1.3 mg/dL [facility] Est Glomerular Filtration Rate 121 >=60 mL/min/1. 73 m?? [facility] Comment: This patient? s estimated glomerular filtration rate (eGFR) is between 121 mL/min/1.73 m2 (patients with less muscle mass) and 140 mL/min/1.73 m2 (patients with more muscle mass) [...] symptoms in addition to eGFR. Blood 11/08/2020 12:3 6 PM EDT 11/08/2020 12:52 PM EDT Narrative Resulting Agency Comment Spec In Lab Tyra Cornejo MD [place] [address] * Differential, Automated (11/08/2020 10:45 AM EDT) Pathologist [facility] Neutrophil % 58.5 % [facility] Neutrophil Absolute 3.67 1.70 - 6.10 x10(3)/[facility] Lymph % 29.2 % [facility] Lymphocytes Abs 1.8 0.9 - 3.2 x10(3)/[facility] Monocyte % 10.7 % [facility] Monocyte Abs 0.7 0.3 - 0.9 x10(3)/[facility] Eos % 0.2 % [facility] Eosinophils Abs 0.0 0.0 - 0.4 x10(3)/[facility] Basophil % 1.1 % [facility] Baso Absolute 0.1 0.0 - 0.1 x10(3)/[facility] Immature Gran % 0.30 % [facility] Comment: Immature granulocytes(IG's)percentage and absolute count will include metamyelocytes, myelocytes, and promyelocytes. Blood smears from CBCs yielding IG's will be scanned manually for concordance. If this scan disagrees with the automated IG or if promyelocytes are noted, a manual differential will be performed. Immature Gran Absolute 0.02 0.00 - 0.04 x10(3)/[facility] Blood 11/08/2020 10:4 5 AM EDT 11/08/2020 10:57 AM EDT Narrative Resulting Agency Comment Spec In Lab Barbara CAIN [place] [address] * (ABNORMAL) Hemogram (11/08/2020 10:45 AM EDT) [facility] White Blood Cell 6.3 4.0 - 9.5 x10(3)/ L [facility] Red Blood Cell 3.09(L) 4.00 - 5.21 x10(6)/ L [facility] Hemoglobin 10.4(L) 11.7 - 15.5 gm/dL [facility] Hematocrit 30.2(L) 35.7 - 45.8 % [facility] Mean Cell Volume 97.7(H) 82.6 - 94.4 fL [facility] Mean Cell Hemoglobin 33.7(H) 27.1 - 32.0 pg [facility] Mean Cell Hemoglobin Concentration 34.4 31.7 - 35.0 gm/dL [facility] Platelet 145 145 - 357 x10(3)/[facility] RDW Standard Deviation 54.6(H) 37.0 - 46.0 [facility] RDW coefficient of variation 15.6(H) 11.5 - 14.1 % [facility] Mean Platelet Volume 9.6 7.6 - 12.9 [facility] NRBC% auto 0.0 % [facility] NRBC Absolute 0.000 0.000 - 0.000 x10(3)/[facility] Blood 11/08/2020 10:4 5 AM EDT 11/08/2020 10:57 AM EDT Narrative Resulting Agency Comment Spec In Lab Barbara CAIN HEMATOLOGY ORDERABLE S [facility] [place] [address] * Comprehensive metabolic panel (non-fasting) (11/08/2020 10:45 AM EDT) Glucose 124 65 - 199 mg/dL [facility] Comment:Diabetes: >=200 mg/d L plus symptoms Blood Urea Nitrogen 13 8 - 18 mg/dL [facility] Creatinine 0.75 0.70 - 1.20 mg/dL [facility] Sodium 139 135 - 145 mmol/L [facility] Potassium Not Perf 3.5 - 5.0 [facility] Comment: Please note: ??Patients with WBC >100,000 may have falsely elevated Potassium levels. ??For accurate Potassium quantification in these patients send serum separator tube (gold top) for subsequent determinations. ??Contact the Clinical Chemistry Laboratory if there are any questions. Unable to quantitate due to sample hemolysis. ??Sample redraw suggested. 11/08/20 11:36 [facility] Chloride 104 98 - 107 mmol/L [facility] Carbon Dioxide 24 22 - 31 mmol/L [facility] Anion Gap 11 5 - 15 mmol/L [facility] Calcium 9.3 8.5 - 10.5 mg/dL [facility] Protein, Total 7.7 6.1 - 8.0 gm/dL [facility] Albumin 4.4 3.2 - 5.2 gm/dL [facility] Aspartate Aminotransferase Not Perf 0 - 30 [facility] Comment: Unable to quantitate due to sample hemolysis. ??Sample redraw suggested. 11/08/20 11:36 [facility] Alanine Aminotransferase Not Perf 0 - 30 [facility] Comment: Unable to quantitate due to sample hemolysis. ??Sample redraw suggested. 11/08/20 11:36 [facility] Alkaline Phosphatase 61 35 - 105 unit/L [facility] Bilirubin, Total 0.4 0.2 - 1.3 mg/dL [facility] Est Glomerular Filtration Rate 108 >=60 mL/min/1. 73 m?? [facility] ORDERABLE S [facility] [place] [place] [address] documented in this encounter Visit Diagnoses Diagnosis [...] EVERY 1 MIN PRN, Starting on Alannah 11/08/20 at 1029, Until Thu11/09/20 at 0436, Line Care, Flush pertains to all indwelling lines. Flush per protocol found in the job aid using the link provided on this medication record. Refer to Intravenous (IV) Job Aid: Adult Flushing & Catheter Care (4143) job aid for additional information regarding guidelines and administration., Routine Given 11/08/2020 11:07 AM EDT 20 mLs documented in this encounter Care Teams Printing Equipment Mechanic Relationship Specialty Start Date End Date Charleen Williamson APRN [address] [place] [address] PCP - General Family Medicine 06/29/20 documented as of this encounter
--- OUTSIDE RECORDS SUMMARY | 2024-05-09 14:05 | XMS_ITS | Encounter Summary ---
[place] [address] Care Team Providers Care Personal Banker Name Role Phone Charleen Williamson APRN Primary Care Provider [phone] [phone] Reason for Visit * Reason Onset Date Comments Other 08/27/2020 swollen lymph no de Encounter Details Date Type Department Care Team (Late st Contact Info) Description 08/27/2020 Telephone Hematology [place] [phone] Subha Holt RN Other (swollen lymph node) Social History Tobacco Use Types Packs/Day Years [...] Encounter - Subha Holt RN - 08/27/2020 8:31 AM EDT Images from the original note were not included. TRIAGE CALL Danni Ryan [facility] Hem Onc Triage Breast Good morning, Alis called and states that she has a new swollen lymph node, that she says is in the back of herneck on the left side. She said that it is a little bit sore to the touch and that she just noticedit this morning. She also mentioned that the digestive issues that she mentioned last week have gotten a little bit better, but that they are still not at her baseline. Could you please give her a call on her cell phone [phone]? Diagnosis/current treatment:Right Breast Cancer/CARBOplatin / DOCEtaxel / TRASTuzumab / PERTuzumab/Neulasta Call placed to patient Symptom Review per conversation with caller: Left back of neck swollen lymph node. Hairline. Pea sized. Tender to touch. Not warm to the touch. Denies fevers temp this morning was about 98. Bowels are better. Stool is a little more formed but not normal. Been using the tablets and they taste gross. Head has been itchy. No extra hair in her brush. Had already cut it shorter. Thought she had a UTI. Called in to fellow who put her on Macrobid. The pills are huge but the burning is better. Drinking 6-8 8 oz glasses of water per day . Patient mentioned that her sense of taste has dulled since chemo but she can smell and taste food. Plan of Care and actions for worsening condition per discussion with PAYTON Moffett and Telephone Triage for Oncology Nurses, 3rd Edition, ONC, [place] and [place], 2019 Barbara Cain PA Andrews, Patricia A, RN ...she can use the lidocaine cream on a small spot on her abdomen, but the nurses also have orders to give lidocaine subcutaneously before the injection. We will have to take a look at the lymph node when she is in this week. It sounds like it may be more of a pustule related to the HER2 therapies. No other rash/skin changes? For the scalp itching she can try Selsun Blue or Neutrogena T-Gel shampoo. Patient will monitor taste and smell and if she loses sense of taste and smell will contact us as then she may need to have COIVD ruled out before her next visit to . Pt/responsible caregiver able to read back and [...] EDT Office Visit Radiation Oncology at [address] [address] Eleonora Mensah MD [facility] [place] [address] documented as of this encounter Visit Diagnoses Not on filedocumented in this encounter Care Teams Personal Banker Relationship Specialty Start Date End Date Charleen Williamson APRN [address] [place] [address] PCP - General Family Medicine 06/29/20 documented as of this encounter
--- OUTSIDE RECORDS SUMMARY | 2024-05-09 14:05 | XMS_ITS | Encounter Summary ---
Author Organization [facility] Address [facility] [place] [address] Care Team Providers Care Document Examiner Name Role Phone Charleen Williamson APRN Primary Care Provider [phone] [phone] Reason for Visit * Reason Comments Chemotherapy [...] (PARAPLATIN) [id number] Romie (Trastuzumab-anns) Tyra Cornejo MD [facility] [address] [place] [address] [facility] Hem Onc [address] [place] [address] Referral ID Status Reason Start Date Expiration Date Visits Re quested Visits Authorized [id number] Closed 07/20/2020 07/20/2021 99 99 Encounter Details Date Type Department Care Team (Latest Contact Info) Description 2020 10:12 AM EDT - 2020 11:59 PM EDT Hospital Encounter Hematology [place] [address] Malignant neoplasm of overlapping sites [...] Progress Notes * Mindi Vences RN - 2020 3:25 PM EDT Patient Name: Alis Silva Patient Age: 30 y.o. Birthdate: 1990 Admit date: 2020 Attending Physician: No att. providers found Alis Silva, 30 y.o. female with diagnosis of breast cancer is here for chemotherapy infusion of Pertuzumab, Trastuzumab, Docetaxel, Carboplatin and Onpro application as well as Zoladex injection. PROTOCOL: No CYCLE: 3 DAY: 1 S: Pt. offers no complaints at this time. O: Chemotherapy orders independently verified for correct drug name, route and dosage per patient'sheight, weight and BSA by Fadi Vences RN and onsite pharmacist REACTIONS (DESCRIPTION, TIME, INTERVENTION AND EFFECTIVENESS) None A: Pt. Tolerated treatment well. Alis Silva confirms that all questions and issues have been addressed. P: Return to clinic as scheduled documented in this encounter Plan of Treatment Upcoming Encounters Date Type Department Care Team (Late st Contact Info) Description 02/13/2025 1:00 PM EDT Office Visit Radiation Oncology at [address] [phone] Eleonora Mensah MD [facility] DR RADIATION ONCOLOGY [place] [address] documented as of this encounter Visit Diagnoses [...] 2 Minutes, ONCE, 1 dose, On Alannah 09/27/20 at 1245, Alternative administration of IV push over 2 minutes is a recommendation from the sap portal consultant. Administer prior to chemotherapy., Routine Given 2020 1:11 PM EDT 130 mg CARBOplatin (Paraplatin) 900 mg in dextrose 5% 340 mL infusion 900 mg (Target AUC = 6), Intravenous, ONCE, 1 dose, On Alannah 09/27/20 at 1345, Administer over 30 Minutes, Warning Vesicant/Irritant Medication New Bag 2020 5:11 PM EDT 900 mg 680 mL/hr dexamethasone (PF) (Decadron) (10 mg/mL) injection 10 mg 10 mg, Intravenous, ONCE, 1 dose, On Alannah 09/27/20 at 1245, Administer 60 minutes prior to DOCEtaxel Given 2020 1:20 PM EDT 10 mg diphenhydrAMINE (Benadryl) capsule 50 mg 50 mg, Oral, ONCE, 1 dose, On Alannah 09/27/20 at 1245, Administer 60 minutes prior to DOCEtaxel, Routine Given 2020 1:14 PM EDT 50 mg DOCEtaxeL (Taxotere) 160 mg in sodium chloride 0.9% Non-PVC 258 mL infusion 160 mg, Intravenous, ONCE, 1 dose, On Alannah 09/27/20 at 1345, Administer over 60 Minutes, Dose Ordered = 153 mg (75 mg/m2). Pharmacist rounded dose per procedure. Warning Vesicant/Irritant Medication New Bag 2020 3:50 PM EDT 160 mg 258 mL/hr famotidine (Pepcid) (10 mg/mL) injection 20 mg 20 mg, Intravenous, ONCE, 1 dose, On Alannah 09/27/20 at 1245, Administer 60 minutes prior to DOCEtaxel Given 2020 1:17 PM EDT 20 mg goserelin (ZOLADEX) implant 3.6 mg 3.6 mg, Subcutaneous, ONCE, 1 dose, On Alannah 09/27/20 at 1245, Routine, This agent is restricted to outpatient use. Is this drug being given as an outpatient? Yes Given 2020 6:04 PM EDT 3.6 mg Abdominal Tissue heparin (pf) (porcine) (100 units/mL) flush 5 mL syringe 500 Units 500 Units, Intravenous, ONCE PRN, Starting on Thu09/27/20 at 1224, Until Thu09/28/20 at 0436, Line Care, Refer to Intravenous (IV) Procedure: Accessing Implanted Vascular Access Devices (384) procedure and/or Intravenous (IV) Job Aid: Adult Flushing & Catheter Care (5758) job aid for additional information regarding guidelines and administration., Routine Given 2020 5:53 PM EDT 500 Units lidocaine (Xylocaine) 1% (10 mg/mL) injection 10 mg 10 mg (1 mL), Subcutaneous, ONCE, 1 dose, On Alannah 09/27/20 at 1245, Order either Ice or lidocaine for the injection. Inject up to 3 mL, Routine Given 2020 5:59 PM EDT 10 mg Abdominal Tissue palonosetron (Aloxi) (0.25 mg/mL) injection 0.25 mg 0.25 mg, Intravenous, ONCE, 1 dose, On Alannah 09/27/20 at 1245, Administer over 30 seconds., Routine Given 2020 1:15 PM EDT 0.25 mg pegfilgrastim (Neulasta Onpro) (6 mg/0.6 mL) injection kit 6 mg 6 mg, Subcutaneous, ONCE, 1 dose, On Alannah 09/27/20 at 1245, Allow the prefilled syringe co-packaged with the on-body injector to reach room temperature at least 30 minutes prior to administration. , Routine, This agent is restricted to outpatient use. Is this drug being given as an outpatient? Yes Given 2020 6:13 PM EDT 6 mg Right Arm pertuzumab (Perjeta) 420 mg in sodium chloride 0.9% 264 mL infusion 420 mg, Intravenous, ONCE, 1 dose, On Alannah 09/27/20 at 1345, Administer over 30 Minutes, This agent is restricted to outpatient use. Is this drug being given as an outpatient? Yes New Bag 2020 1:50 PM EDT 420 mg 528 mL/hr sodium chloride 0.9 % (flush) flush 5-20 mL 5-20 mL, Intravenous, EVERY 1 MIN PRN, Starting on Alannah 09/27/20 at 1224, Until Thu09/28/20 at 0436, Line Care, Flush pertains to all indwelling lines. Flush per protocol found in the job aid using the link provided on this medication record. Refer to Intravenous (IV) Job Aid: Adult Flushing & Catheter Care (8168) job aid for additional information regarding guidelines and administration., Routine Given 2020 5:53 PM EDT 20 mLs TRASTuzumab-anns (Kanjinti) 510 mg in sodium chloride 0.9% 274.31 mL infusion 510 mg (rounded from 513 mg = 6 mg/kg/dose ? 85.5 kg Treatment plan Recorded weight), Intravenous, ONCE, 1 dose, On Alannah 09/27/20 at 1345, Administer over 30 Minutes, Incompatible in D5W, This agent is restricted to outpatient use. Is this drug being given as an outpatient? Yes New Bag 2020 3:05 PM EDT 510 mg 548.6 mL/hr documented in this encounter Care Teams Document Examiner Relationship Specialty Start Date End Date Charleen Williamson APRN [address] [place] [address] PCP - General Family Medicine 06/29/20 documented as of this encounter
--- OUTSIDE RECORDS SUMMARY | 2024-05-09 14:05 | XMS_ITS | Encounter Summary ---
[place] [address] Care Team Providers Care Motor Hotel Manager Name Role Phone Charleen Williamson APRN Primary Care Provider [phone] [phone] Encounter Details Date Type Department Care Team (Latest Contact Info) Description 10/23/2020 2:06 PM EDT - 10/23/2020 2:21 PM EDT Hospital Encounter [place]ematology [place] [address] Malignant neoplasm of central portion of right [...] EDT Office Visit Radiation Oncology at [address] [phone] Eleonora Mensah MD [facility] [place] [address] documented as of this encounter Procedures Procedure Name Priority Date/Time Associated Diagnosis Comments HC VENIPUNCTURE Routine 10/23/2020 2:20 PM EDT Malignant 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, estrogen receptor positive SOB (shortness of breath) Non-cardiac chest pain documented in this encounter Results * (ABNORMAL) D-Dimer, Quantitative (10/23/2020 2:20 PM EDT) D-Dimer 672(H) 0 - 500 FEU ng/ml [facility] Comment: The D-Dimer assay is used [...] HEMATOLOGY ORDERABL ES [facility] [place] [address] documented in this encounter Visit Diagnoses Diagnosis Malignant 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
--- OUTSIDE RECORDS SUMMARY | 2024-05-09 14:05 | XMS_ITS | Encounter Summary ---
Author Organization [facility] [place] [address] Care Team Providers Care Yarder Engineer Name Role Phone Charleen Williamson APRN Primary Care Provider [phone] Encounter Details Date Type Department Care Team (Late st Contact Info) Description 09/18/2020 Orders Only [place]ematology [place] [phone] Barbara Cain PA Social History Tobacco Use [...] EDT Office Visit Radiation Oncology at [address] [phone] Eleonora Mensah MD [facility] [place] [address] documented as of this encounter Visit Diagnoses Not on filedocumented in this encounter Care Teams Yarder Engineer Relationship Specialty Start Date End Date Charleen Williamson APRN [address] [place] [address] PCP - General Family Medicine 06/29/20 documented as of this encounter
--- OUTSIDE RECORDS SUMMARY | 2024-05-09 14:05 | XMS_ITS | Encounter Summary ---
Author Organization [facility] Address [facility] [place] [address] Care Team Providers Care Business Office Associate Name Role Phone Charleen Williamson APRN Primary Care Provider [phone] [phone] Encounter Details Date Type Department Care Team (Latest Contact Info) Description 10/23/2020 2:22 PM EDT - 10/23/2020 11:59 PM EDT Hospital Encounter XRay at [address] [place] [address] Tyra Cornejo MD [facility] HEMATOLOGY [place] [address] Malignant neoplasm of central portion of right [...] and gently massage. 10 g 10/23/2020 12/19/2020 dexamethasone (DECADRON) 2 mg Tablet Take 1 [...] PM EDT Office Visit Radiation Oncology at [address] [address] Eleonora Mensah MD [facility] [place] [address] documented as of this encounter Procedures Procedure Name Priority Date/Time Associated Diagnosis Comments XR CHEST PA AND LATERAL Routine 10/23/2020 2:31 PM EDT Malignant 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, estrogen receptor positive SOB (shortness of breath) Non-cardiac chest pain documented in this encounter Results * XR Chest PA & Lateral (Generic) [...] who have questions please contact the health client care manager that requested your imaging first. ? Narrative 10/23/2020 3:46 PM EDT EXAMINATION: XR [...] patients who have questions please contactthe health client care manager that requested your imaging first. 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
--- OUTSIDE RECORDS SUMMARY | 2024-05-09 14:05 | XMS_ITS | Encounter Summary ---
Author Organization [place] [address] Care Team Providers Care Corporate Communications Associate Name Role Phone Charleen Williamson APRN Primary Care Provider [phone] [phone] Encounter Details Date Type Department Care Team (Late st Contact Info) Description 08/25/2020 Telephone Hematology [place] [phone] Gabe Quintana MD [facility] DR HEMATOLOGY/[place] [address] Social History Tobacco Use Types Packs/Day Years [...] encounter Miscellaneous Notes * Telephone Encounter - Gabe Quintana - 08/25/2020 11:49 AM EDT Reason for call: Possible UTI Alis Silva is a 29 y.o. female calling to report that she has burning urination and possible mild hematuria since yesterday. No fever, chills. Hydrating well. I prescribed Macrobid 100 mg BID Gabe Quintana MD, MS Hematology/Medical Oncology Fellow [facility] [place] at [facility] Page # [phone] 08/25/20, 11:54 AM documented in this encounter Plan of Treatment Upcoming Encounters Date Type Department Care Team (Late st Contact Info) Description 02/13/2025 1:00 PM EDT Office Visit Radiation Oncology at [address] [address] Eleonora Mensah MD [facility] [place] [address] documented as of this encounter Visit Diagnoses Not on filedocumented in this encounter Care Teams Corporate Communications Associate Relationship Specialty Start Date End Date Charleen Williamson APRN [address] [place] [address] PCP - General Family Medicine 06/29/20 documented as of this encounter
--- OUTSIDE RECORDS SUMMARY | 2024-05-09 14:05 | XMS_ITS | Encounter Summary ---
[place] [address] Care Team Providers Care Rn Intern Name Role Phone Charleen Williamson APRN Primary Care Provider [phone] [phone] Reason for Visit * Reason Onset Date Comments Diarrhea 08/22/2020 Encounter Details Date Type Department Care Team (Late st Contact Info) Description 08/22/2020 Telephone Hematology [place] [phone] Subha Holt RN Diarrhea Social History Tobacco [...] Telephone Encounter - Subha Holt RN - 08/22/2020 2:26 PM EDT Images from the original note were not included. TRIAGE CALL Message received from pathology secretary: Dafne Cabrera [facility] Triage Breast Call back [phone] Alis called with c/o ongoing issues with loose stools and occasional diarrhea. Called over the weekend and felt better Thursday. Thursday loose stools started again and she's back to having diarrhea today. She wanted to discuss if there is anything she can take to prevent this while she's on treatment. She was also wondering when she will need a follow-up ekg/echo as it was mentioned during her chemo teach but none have been scheduled. Diagnosis/current treatment:Breast cancer/ CARBOplatin / DOCEtaxel / TRASTuzumab / PERTuzumab Echo performed 07/20 Call placed to patient Symptom Review per conversation with caller: Started Thursday night loose stools and Thursday night diarrhea, back and forth. 2-3 Liquid stools today. Last loose stool was a couple of hours ago. Sometimes Green and blue afterblue gator aid. Denies blood in stool. Some cramping not bad. Denies abdominal distention. Eating relatively normal with mild nausea. Not taking nausea medication As it makes her tiered. Wondering when her next echo is. Uses [facility] Plan of Care and actions for worsening condition per discussion withBarbara Cain PA: Barbara Cain PA Andrews, Patricia A, RN Cc: Tyra Cornejo MD Hi Patti, Thanks for following up with her. It sounds like she will need something added to her antiemetic regimen - perhaps scheduled dexamethasone or olanzapine. Hopefully that will cut her nausea down and she will be able to manage with alternating compazine/zofran. She also had the zofran from her PCP and it was only 4 mg, so she might be better with 8 mg. Sanju Mary as she will see her next time and can discuss these additions for next cycle. We do the echo every 6 months while on HER2 targeted therapy, or sooner if she develops any cardiacsymptoms. Push fluids 8 or more 8 oz glasses of water. This can include soups, popsicles, jello, sports drinks. Small more frequent meals. Call with blood in her stool, severe abdominal cramping. Can use baby wipes or damp towelettes with each stool. Wipe gently, dab not wipe. Can use Desitin or A&D ointment if bottom gets sore. Can do sitz baths as well. Telephone Triage for Oncology Nurses, 3rd Edition, ONC, [place] and [place], 2019 Pt/responsible caregiver able to read back and [...] EDT Office Visit Radiation Oncology at [address] [address] Eleonora Mensah MD [facility] [place] [address] documented as of this encounter Visit Diagnoses Not on filedocumented in this encounter Care Teams Rn Intern Relationship Specialty Start Date End Date Charleen Williamson APRN [address] [place] [address] PCP - General Family Medicine 06/29/20 documented as of this encounter
--- OUTSIDE RECORDS SUMMARY | 2024-05-09 14:05 | XMS_ITS | Encounter Summary ---
Author Organization [facility] [place] [address] Care Team Providers Care Executive Director Sheltered Workshop Name Role Phone Charleen Williamson APRN Primary Care Provider [phone] [phone] Encounter Details Date Type Department Care Team (Late st Contact Info) Description 09/07/2020 Notes [place] [phone] Ronda Silva MSW Social History Tobacco Use Types Packs/Day Years [...] as of this encounter Progress Notes * Ronda Silva MSW - 09/07/2020 3:21 PM EDT CCM submitted a request to [employer] for assistance with the cost of pt's new tires. P- CCM will continue to provide support and resources to pt. documented in this encounter Plan of Treatment Upcoming Encounters Date Type Department Care Team (Late st Contact Info) Description 02/13/2025 1:00 PM EDT Office Visit Radiation Oncology at [address] [phone] Eleonora Mensah MD [facility] [place] [address] documented as of this encounter Visit Diagnoses Not on filedocumented in this encounter Care Teams Executive Director Sheltered Workshop Relationship Specialty Start Date End Date Charleen Williamson APRN [address] [place] [address] PCP - General Family Medicine 06/29/20 documented as of this encounter
--- OUTSIDE RECORDS SUMMARY | 2024-05-09 14:05 | XMS_ITS | Encounter Summary ---
Author Organization [facility] Address [facility] [place] [address] Care Team Providers Care Support Staff Name Role Phone Charleen Williamson APRN Primary Care Provider [phone] [phone] Reason for Visit * Reason Comments Follow-up Encounter Details Date Type Department Care Team (Late st Contact Info) Description 09/06/2020 10:00 AM EDT Office Visit [place]ematology [place] [address] Tyra Cornejo MD [facility] [address] [place] [address] Malignant neoplasm of overlapping sites of right [...] Sign Reading Time Taken Comments Blood Pressure 136/95 09/06/2020 9:55 AM EDT Pulse 72 09/06/2020 9:55 AM EDT Temperature 37 ??C (98.6 ??F) 09/06/2020 9:55 AM EDT Respiratory Rate 17 09/06/2020 9:55 AM EDT Oxygen Saturation 97% 09/06/2020 9:55 AM EDT Inhaled Oxygen Concentration - - Weight 88.5 kg (195 lb) 09/06/2020 9:55 AM EDT Height 175 cm (5' 8.9) 09/06/2020 9:55 AM EDT Body Mass Index 28.88 09/06/2020 9:55 AM EDT documented in this encounter Progress Notes * Tyra Cornejo MD - 09/06/2020 10:00 AM EDT Images from the original note were not included. Subjective: Patient ID: Alis Silva is a 29 y.o. female. Cc: breast cancer Interval history: Alis is here with her Daren. She is doing ok today. Had A lot of side effects from cycle 1, but managed reasonably well. Called in appropriately for assistance with diarrhea management and other side effects. Appetite maintained pretty well. Nausea was persistent for about 7 days, but no vomiting. Burning with urination resolved. Developed spotting and cramping last week, lasted 4-5 days and stopped. Has only worked one day since chemo started. 29 yo self-palpated a mass under the right nipple when she noticed it had inverted at the end of May 2020. Dx 06/29/20 [facility], ER/HI + HER2 + right invasive carcinoma with [...] of Systems Constitutional: Positive for activity change and fatigue. Negative for appetite change, chills, diaphoresis, fever and unexpected weight change. HENT: Negative. Eyes: Positive for visual disturbance. Distance vision is blurry; no double vision. Respiratory: Negative. Gastrointestinal: Negative. Endocrine: Negative. Genitourinary: Negative. Musculoskeletal: Negative. No pain after neulasta. Skin: Positive for color change. Right breast redness is markedly improved. Allergic/Immunologic: Negative. Neurological: Negative. Hematological: Negative. Psychiatric/Behavioral: Negative. Objective: Physical Exam Vitals reviewed. HENT: Head: Normocephalic. Right Ear: External ear normal. Left Ear: External ear normal. Eyes: General: No scleral icterus. Cardiovascular: Rate and Rhythm: Normal rate. Pulses: Normal pulses. Pulmonary: Effort: Pulmonary effort is normal. Chest: Breasts: Right: Inverted nipple, mass and skin change present. No nipple discharge or tenderness. Abdominal: General: Bowel sounds are normal. Musculoskeletal: Cervical back: Normal range of motion. Skin: General: Skin is warm. Neurological: General: No focal deficit present. Mental Status: She is alert and oriented to person, place, and time. Mental status is at baseline. Psychiatric: Mood and Affect: Mood normal. Behavior: Behavior normal. Thought Content: Thought content normal. Judgment: Judgment normal. Recent Results (from the past 24 hour(s)) Comprehensive metabolic panel (non-fasting) Result Value Ref Range Glucose Lvl 94 65 - 199 mg/dL BUN 10 8 - 18 mg/dL Creatinine 0.73 0.70 - 1.20 mg/dL Sodium 138 135 - 145 mmol/L Potassium 4.2 3.5 - 5.0 mmol/L Chloride 105 98 - 107 mmol/L CO2 25 22 - 31 mmol/L Anion Gap 8 5 - 15 mmol/L Calcium 9.3 8.5 - 10.5 mg/dL Total Protein 7.8 6.1 - 8.0 gm/dL Albumin 4.2 3.2 - 5.2 gm/dL AST 19 0 - 30 unit/L ALT 26 0 - 30 unit/L Alk Phos 86 35 - 105 unit/L Total Bilirubin 0.3 0.2 - 1.3 mg/dL Estimated GFR 113 >=60 mL/min/1.73 m?? Hemogram Result Value Ref Range WBC 8.9 4.0 - 9.5 x10(3)/mcL RBC 3.77 (L) 4.00 - 5.21 x10(6)/mcL Hemoglobin 11.5 (L) 11.7 - 15.5 gm/dL Hematocrit 33.1 (L) 35.7 - 45.8 % MCV 87.8 82.6 - 94.4 fL MCH 30.5 27.1 - 32.0 pg MCHC 34.7 31.7 - 35.0 gm/dL Platelets 190 145 - 357 x10(3)/mcL RDWSD 38.3 37.0 - 46.0 fL RDWCV 12.3 11.5 - 14.1 % MPV 8.6 7.6 - 12.9 fL nRBC % Auto 0.0 % nRBC Abs Auto 0.000 0.000 - 0.000 x10(3)/mcL Differential, Automated Result Value Ref Range Neutrophils % 63.5 % Neutr Abs (ANC) 5.62 1 - 6 x10(3)/mcL Lymphocytes % 25.6 % Lymphocytes Abs 2.3 0.9 - 3.2 x10(3)/mcL Monocytes % 8.9 % Monocyte Abs 0.8 0.3 - 0.9 x10(3)/mcL Eosinophils % 0.3 % Eosinophils Abs 0.0 0.0 - 0.4 x10(3)/mcL Basophils % 1.4 % Basophils Abs 0.1 0.0 - 0.1 x10(3)/mcL Immature Gran % 0.30 % Madalyn Gran Abs 0.03 0.00 - 0.04 x10(3)/mcL Assessment and Plan: No problem-specific Assessment & Plan notes found for this encounter. #1 Breast cancer--29 yo with Stage IB triple positive breast cancer, excellent clinical response tocycle 1 TCHP. Multiple grade 1/2 toxicities, managing pretty well overall . #2 Chemotherapy--monitoring for toxicity--labs reviewed and meet parameters for treatment. Diarrhea: add immodium to pre-meds today; continue immodium prn. If loose stools return and are worse than with cycle 1, start lomotil and take that on a scheduled basis, with immodium still prn for any break through loose stools. Once stools firm up, stop lomotil, continue immodium if needed, to try to avoid rebound constipation. Nausea--add dexamethasone 4 mg q am day 2-7 prn.Continue compazine PRN. Mouth pain: use peridex TID day 1-10 of each cycle Leg swelling-monitor, if worsens start dex 4 mg BID the day before chemo. Eye and nose dryness: saline eye drops and vaseline in the external nares qhs. Saline nasal mist orhumidifier can also be used. #3 Fatigue--often improves a bit after cycle 1. Try to resume normal activities and exercise as tolerated. #4 Menopausal symptoms--continue goserelin, will change to q 3 wks to accommodate schedule; may seespotting and cramping intermittently. Call if heavy bleeding or severe pain develops. UTI symptoms may also be more of a chemical cystitis, flush with PO fluids as much as possible. Antibiotics if blood, pain or fever develops. #5 Bone health--no bone pain #6 Medication management--as above, peridex, dex and lomotil script ordered. Plan: Cycle 2 today + goserelin F/u 3 wks for cycle 3 + goserelin documented in this encounter Plan of Treatment Upcoming Encounters Date Type Department Care Team (Late st Contact Info) Description 02/13/2025 1:00 PM EDT Office Visit Radiation Oncology at [address] [address] Eleonora Mensah MD [facility] [place] [address] documented as of this encounter Visit Diagnoses Diagnosis 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, estrogen receptor positive documented in this encounter Care Teams Support Staff Relationship Specialty Start Date End Date Charleen Williamson APRN [address] [place] [address] PCP - General Family Medicine 06/29/20 documented as of this encounter
--- OUTSIDE RECORDS SUMMARY | 2024-05-09 14:05 | XMS_ITS | Encounter Summary ---
Author Organization [facility] Address [facility] [place] [address] Care Team Providers Care Stoner Hand Name Role Phone Charleen Williamson APRN Primary Care Provider [phone] [phone] Reason for Visit * Treatment/Therapy Plan Authorization [...] (PARAPLATIN) [id number] Romie (Trastuzumab-anns) Tyra Cornejo MD [facility] DR [place] [address] [facility] Hem Onc [address] [place] [address] Referral ID Status Reason Start Date Expiration Date Visits Re quested Visits Authorized [id number] Closed 07/20/2020 07/20/2021 99 99 Encounter Details Date Type Department Care Team (Latest Contact Info) Description 10/18/2020 9:47 AM EDT - 10/18/2020 11:59 PM EDT Hospital Encounter Hematology [place] [address] Malignant neoplasm of overlapping sites [...] Progress Notes * Kasia Krishna RN - 10/18/2020 10:10 AM EDT Patient Name: Alis Silva Patient Age: 30 y.o. Birthdate: 1990 Admit date: 10/18/2020 Attending Physician: Shila att. providers found Access visit. See MAR and/or flowsheet. trialed alcohol/betadine w/ no biopatch. Patient states she has had rashes and itching w/ both mepilex and duoderm dressings. Patient chose to use duoderm today. documented in this encounter Miscellaneous Notes * Addendum Note - Michaela Mcleod RN - 10/18/2020 10:18 AM EDTEncounter addended by: Michaela Mcleod RN on: 10/18/2020 10:18 AM Actions taken: Allergies modified documented in this encounter Plan of Treatment Upcoming Encounters Date Type Department Care Team (Late st Contact Info) Description 02/13/2025 1:00 PM EDT Office Visit Radiation Oncology at [address] [address] 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, estrogen receptor positive COMPREHENSIVE METABOLIC PANEL STAT 10/18/2020 10:05 AM EDT 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, estrogen receptor positive documented in this encounter Results * Differential, Automated (10/18/2020 10:05 AM EDT) Neutrophil % 64.3 % [facility] Neutrophil Absolute 4.18 1.70 - 6.10 x10(3)/[facility] Lymph % 26.0 % [facility] Lymphocytes Abs 1.7 0.9 - 3.2 x10(3)/[facility] Monocyte % 8.3 % [facility] Monocyte Abs 0.5 0.3 - 0.9 x10(3)/[facility] Eos % 0.0 % [facility] Eosinophils Abs 0.0 0.0 - 0.4 x10(3)/[facility] Basophil % 1.2 % [facility] Baso Absolute 0.1 0.0 - 0.1 x10(3)/[facility] Immature Gran % 0.20 % [facility] Comment: Immature granulocytes(IG's)percentage and absolute count will include metamyelocytes, myelocytes, and promyelocytes. Blood smears from CBCs yielding IG's will be scanned manually for concordance. If this scan disagrees with the automated IG or if promyelocytes are noted, a manual differential will be performed. Immature Gran Absolute 0.01 0.00 - 0.04 x10(3)/[facility] Blood 10/18/2020 10:0 5 AM EDT 10/18/2020 10:46 AM EDT Narrative Resulting Agency Comment Spec In Lab Barbara CAIN HEMATOLOGY ORDERABLE S [facility] [place] [address] * (ABNORMAL) Hemogram (10/18/2020 10:05 AM EDT) White Blood Cell 6.5 4.0 - 9.5 x10(3)/mc L [facility] Red Blood Cell 3.41(L) 4.00 - 5.21 x10(6)/mc L [facility] Hemoglobin 11.1(L) 11.7 - 15.5 gm/dL [facility] Hematocrit 32.6(L) 35.7 - 45.8 % [facility] Mean Cell Volume 95.6(H) 82.6 - 94.4 fL [facility] Mean Cell Hemoglobin 32.6(H) 27.1 - 32.0 pg [facility] Mean Cell Hemoglobin Concentration 34.0 31.7 - 35.0 gm/dL [facility] Platelet 234 145 - 357 x10(3)/mc L [facility] RDW Standard Deviation 56.3(H) 37.0 - 46.0 [facility] RDW coefficient of variation 16.2(H) 11.5 - 14.1 % [facility] Mean Platelet Volume 8.5 7.6 - 12.9 [facility] NRBC% auto 0.0 % [facility] NRBC Absolute 0.000 0.000 - 0.000 x10(3)/ L [facility] Blood 10/18/2020 10:0 5 AM EDT 10/18/2020 10:46 AM EDT Narrative Resulting Agency Comment Spec In Lab Barbara CAIN HEMATOLOGY ORDERABLE S [facility] [place] [address] * (ABNORMAL) Comprehensive metabolic panel (non-fasting) (10/18/2020 10:05 AM EDT) Glucose 132 65 - 199 mg/dL [facility] Comment:Diabetes: >=200 mg/d L plus symptoms Blood Urea Nitrogen 12 8 - 18 mg/dL [facility] Creatinine 0.71 0.70 - 1.20 mg/dL [facility] Sodium 139 135 - 145 mmol/L [facility] Potassium 3.9 3.5 - 5.0 mmol/L [facility] Comment: Please note: ??Patients with WBC >100,000 may have falsely elevated Potassium levels. ??For accurate Potassium quantification in these patients send serum separator tube (gold top) for subsequent determinations. ??Contact the Clinical Chemistry Laboratory if there are any questions. Chloride 104 98 - 107 mmol/L [facility] Carbon Dioxide 26 22 - 31 mmol/L [facility] Anion Gap 9 5 - 15 mmol/L [facility] Calcium 9.4 8.5 - 10.5 mg/dL [facility] Protein, Total 7.5 6.1 - 8.0 gm/dL [facility] Albumin 4.3 3.2 - 5.2 gm/dL [facility] Aspartate Aminotransferase 26 0 - 30 unit/L [facility] Alanine Aminotransferase 36(H) 0 - 30 unit/L [facility] Alkaline Phosphatase 74 35 - 105 unit/L [facility] Bilirubin, Total 0.3 0.2 - 1.3 mg/dL [facility] Est Glomerular Filtration Rate 116 >=60 mL/min/1. 73 m?? [facility] Comment: This patient? s [...] Lab Tyra Cornejo MD CHEMISTRY ORDERABLE S [facility] [place] [address] documented in this encounter Visit Diagnoses Diagnosis 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, estrogen receptor positive documented in this encounter Administered Medications Inactive Administered Medications - up to 3 most recent administrations Medication Order MAR Action Action Date Dose Rate Site sodium chloride 0.9 % (flush) flush 5-20 mL 5-20 mL, Intravenous, EVERY 1 MIN PRN, Starting on [place] 10/18/20 at 0954, Until Thu10/19/20 at 0436, Line Care, Flush pertains to all indwelling lines. Flush per protocol found in the job aid using the link provided on this medication record. Refer to Intravenous (IV) Job Aid: Adult Flushing & Catheter Care (4829) job aid for additional information regarding guidelines and administration., Routine Given 10/18/2020 10:10 AM EDT 20 mLs documented in this encounter Care Teams Stoner Hand Relationship Specialty Start Date End Date Charleen Williamson APRN [address] [place] [address] PCP - General Family Medicine 06/29/20 documented as of this encounter
--- OUTSIDE RECORDS SUMMARY | 2024-05-09 14:05 | XMS_ITS | Encounter Summary ---
[place] [address] Care Team Providers Care Health Coach Name Role Phone Charleen Williamson APRN Primary Care Provider [phone] Encounter Details Date Type Department Care Team (Latest Contact Info) Description 09/07/2020 9:00 AM EDT TH Visit (TeleHealth) Hematology [place] [id number] Arjun Parker, [facility] Malignant neoplasm of right breast in female, [...] as of this encounter Progress Notes * Arjun Parker, [facility] - 09/07/2020 9:00 AM EDT Oncology Clinical Pharmacist Consultation: Cycle 2, Day 1 follow-up Visit Type: TOV Subjective: Patient ID: Alis Sivla is a 29 y.o. female diagnosed with ER/TX + HER2 + Breast Cancer who presented on 09/06/20 for cycle 2, day 1 of TCHP. Chemotherapy regimen including supportive care was reviewed during the telephone office visit with the patient. Allergies and Drug intolerance: Allergies Allergen Reactions ??? Tegaderm [Transparent Dressings] Use mepilex Chemotherapy Regimen includes the following agents: ?? Pertuzumab 420mg over 30mins every 21 days ?? Trastuzumab 6mg/kg over 30mins every 21 days ?? Docetaxel 75mg/m2 over 60mins every 21 days ?? Carboplatin AUC=6 over 30mins every 21 days Current Supportive Care Regimen: ?? Palonosetron 0.25mg IV prior to chemotherapy ?? Aprepitant 130mg IV prior to chemotherapy ?? Diphenhydramine 50mg PO prior to chemotherapy ?? Famotidine 20mg IV prior to chemotherapy ?? Dexamethasone 10mg PO prior to chemotherapy ?? Loperamide 2mg PO prior to chemotherapy ?? Pegfilgrastim (Neulasta Onpro) 6mg ?? Home prescriptions ?? Dexamethasone (Decadron) 4mg PO Qam for days 2-7 ?? Prochlorperazine (Compazine) 10mg Q6hrs PRN for nausea ?? Diphenoxylate-atropine (Lomotil) 1 tablet PO QID PRN for diarrhea Common side effects of this regimen include, but are not limited to: Docetaxel (taxotere): The most common potential side effects include: Hair loss, decrease in blood counts (decrease in white blood cells, red blood cells and platelets, resulting in increased risk ofinfection, anemia and bleeding), fluid retention, fatigue, peripheral neuropathy (pain, numbness ortingling in fingers and toes), nausea, changes in nails, and diarrhea. Less common side effects incl ude allergic reactions to the drug, muscle, bone or joint pain, and changes in liver function tests. Carboplatin (paraplatin): The most common side effects include decrease in blood counts (decrease in white blood cells, red blood cells and platelets resulting in increased risk of infection, anemia and bleeding), nausea and vomiting, taste changes, hair loss, weakness, low magnesium level. Less common side effects include infusion reaction, diarrhea or constipation, mouth sores, kidney dysfunction, ringing in the ears or hearing loss, electrolyte abnormalities. Trastuzumab (herceptin/Kanjinti) and Pertuzumab (perjeta): The most common potential side effects include: Diarrhea, mild nausea, rash, allergic reactions to the drug, and a small risk of heart failure or decrease in heart function. Patient reports the following side effects during cycle 1: ?? Fatigue ?? Significant Diarrhea after first infusion ?? Nausea persistent for ~7days after chemotherapy infusion ?? Mouth sore and mouth pain Assessment and Recommendations: Assessment Alis Silva is a 29 y.o. female diagnosed with ER/TX + HER2 + Breast Cancer who presented on 09/06/20 for cycle 2, day 1 of TCHP. She reported the following side effects during cycle 1 of therapy: fatigue, diarrhea, nausea, mouth pain. The chemotherapy schedule, supportive care, common side effects, and ways to manage side effects were discussed with the patient during the telephone visit today. The following side effect mitigation and management strategies were discussed with the patient: ?? Fatigue - Patient reports experiencing fatigue after her first treatment. We reviewed managementstrategies to help with these symptoms. She confirms good hydration throughout the day and takes naps as needed. ?? Diarrhea - patient experienced issues with loose stools after her first cycle of chemotherapy. She is aware immodium was added as a premed to her regimen and has a supply to take at home if needed. She confirms she also has the Lomotil to take if she experiences any issues with loose stool moving forward. ?? Nausea- patient experienced nausea for about 7 days. We reviewed she has also been prescribed dexamethasone to take at home. Patient also confirms she has started taking it today. ?? Mouth pain - She was using clotrimazole with good effects and has also been prescribed peridex to use with each chemo cycle. ?? Denies any skeletal-pain associated with the neulasta onpro and confirms she is taking loratadine to prevent these symptoms. ?? Mrs. Silva had no other issues or questions to discuss at this time. Patient knows to contact her care team should she encounter any new or worsening symptoms. Additional Recommendations: None F/u needed? no Alis Silva was provided with clinic pharmacist contact information. Pt understands no changes to current drug regimen were made at the appointment and that [facility] is providing recommendations for provider review and follow up. Arjun Patton RPH 09/06/20 2:20 PM 12 minutes were spent providing patient education. documented in this encounter Plan of Treatment Upcoming Encounters Date Type Department Care Team (Late st Contact Info) Description 02/13/2025 1:00 PM EDT Office Visit Radiation Oncology at [address] [phone] Eleonora Mensah MD [facility] [place] [address] documented as of this encounter Visit Diagnoses Diagnosis Malignant neoplasm of right breast in female, estrogen receptor positive, unspecified site of breast documented in this encounter Care Teams Health Coach Relationship Specialty Start Date End Date Charleen Williamson APRN [address] [place] [address] PCP - General Family Medicine 06/29/20 documented as of this encounter
--- OUTSIDE RECORDS SUMMARY | 2024-05-09 14:05 | XMS_ITS | Encounter Summary ---
[place] [address] Care Team Providers Care Tennis Professional Name Role Phone Charleen Williamson APRN Primary Care Provider [phone] Reason for Visit * Reason Onset Date Comments Eye Problem 08/23/2020 floaters Encounter Details Date Type Department Care Team (Late st Contact Info) Description 08/23/2020 Telephone [place]ematology [place] [phone] Subha Holt RN Eye Problem (floaters) Social History Tobacco Use Types Packs/Day Years [...] encounter Miscellaneous Notes * Addendum Note - Barbara Kim PA - 08/23/2020 3:49 PM EDTAddended by: BARBARA KIM on: 08/23/2020 03:49 PM Modules accepted: Orders * Addendum Note - Subha Holt RN - 08/23/2020 3:17 PM EDTAddended by: SUBHA HOLT on: 08/23/2020 03:17 PM Modules accepted: Orders * Telephone Encounter - Subha Holt RN - 08/23/2020 8:48 AM EDT Images from the original note were not included. TRIAGE CALL Message received from payroll secretary: Dafne Cabrera [facility] [place] [place] Call back [phone] Alis called with c/o floaters in the peripheral vision of her right eye, only lasted a couple minutes but wanted to make us aware in case there was reason to be concerned about it. She also mentioned increased sensitivity of her tongue and was wondering if there was a special toothpaste she could use to help with this. Diagnosis/current treatment:Right Breast Cancer/CARBOplatin / DOCEtaxel / TRASTuzumab / PERTuzumab and Neulasta Call placed to patient Symptom Review per conversation with caller: Floaters in peripheral vision. Lasted a couple of minutes and stopped. Denies blurred vision, redness, swelling, discharge or pain. Denies Hx of migraines however she does get Head aches. Usually relieved with lying down or napping. Takes IBU when she gets a HART but really it just makes her sleepy not really relieves pain. Tongue is also irritated. It feels like the back of her throat is irritated. She is a little hoarse. Her sensitivity toothpaste is irritating it. Diarrhea is better but still has to take one-two doses of imodium each day. Plan of Care and actions for worsening condition per discussion withTelephone Triage for Oncology Nurses, 3rd Edition, ONC, [place] [facility] [place], 2019 Monitor eye floaters making not of any other s/s associated. Call if painful, blurred or changes invision that are concerning and/or fever >100.4. Use baking soda, salt water gargles q4h prn especially after she eats. Can use Biotene but stay away from other commercial mouth washes. Get a new soft bristle tooth brush and floss and brush carefully. Avoid, foods that are too hot, spicy, dry, crunchy or acidic. Call if sores develop that interfere with swallowing, eating or opening her mouth. Look for and notify us if yellow or white patches develop on her tongue which could indicate an over growth of yeast. Monitor diarrhea. Push fluids. Call if imodium is not stopping the diarrhea, blood in stool, sever abdominal cramping. Patient called back after looking in the mirror. She noted she has white patches on the back of hertongue. Barbara Kim PA Andrews, Patricia A, RN Let's do clotrimazole troches (one 10 mg ole dissolved in the mouth five times daily) for 7-14 days. Thanks! Pt/responsible caregiver able to read back and [...] EDT Office Visit Radiation Oncology at [address] [phone] Eleonora Mensah MD [facility] [place] [address] documented as of this encounter Visit Diagnoses Not on filedocumented in this encounter Care Teams Tennis Professional Relationship Specialty Start Date End Date Charleen Williamson APRN [address] [place] [address] PCP - General Family Medicine 06/29/20 documented as of this encounter
--- OUTSIDE RECORDS SUMMARY | 2024-05-09 14:05 | XMS_ITS | Encounter Summary ---
Author Organization [facility] Address [facility] [place] [address] Care Team Providers Care Concrete Floater Name Role Phone Charleen Williamson APRN Primary Care Provider [phone] Encounter Details Date Type Department Care Team (Late st Contact Info) Description 09/06/2020 Notes [place] [phone] Ronda Silva MSW Social History Tobacco Use [...] Progress Notes * Ronda Silva MSW - 09/06/2020 4:03 PM EDT CCM/EVANGELINA met with pt during her infusion today. She states she tolerated her first chemo treatment well. Pt requested and was given a [employer] hat and will be mailed a gas card. I told pt she was eligibleto receive mileage reimbursement to her medical appts from [place] medicaid but she must sign-up with [facility] in [facility] to receive payments. I encouraged Alis to contact me with any questions or dale rns. P- CCM will continue to provide support and resources to pt. documented in this encounter Plan of Treatment Upcoming Encounters Date Type Department Care Team (Late st Contact Info) Description 02/13/2025 1:00 PM EDT Office Visit Radiation Oncology at [address] [phone] Eleonora Mensah MD [facility] [address] [place] [address] documented as of this encounter Visit Diagnoses Not on filedocumented in this encounter Care Teams Concrete Floater Relationship Specialty Start Date End Date Charleen Williamson, IVY [address] [place] [address] PCP - General Family Medicine 06/29/20 documented as of this encounter
--- OUTSIDE RECORDS SUMMARY | 2024-05-09 14:05 | XMS_ITS | Encounter Summary ---
[place] [address] Care Team Providers Care Board Handler Name Role Phone Charleen Williamson APRN Primary Care Provider [phone] Reason for Visit * Reason Onset Date Comments Mouth Lesions 09/13/2020 Encounter Details Date Type Department Care Team (Late st Contact Info) Description 09/13/2020 Telephone Hematology [place] [phone] Subha Holt RN Mouth Lesions Social History Tobacco Use Types Packs/Day Years [...] Telephone Encounter - Subha Holt RN - 09/13/2020 9:12 AM EDT Images from the original note were not included. Message received from secretary specialist: Dafne Cabrera [facility] Hem Onc Triage Breast Call back [phone] Alis called as her mouth sores and spots have returned and wanted to discuss restarting her clotrimazole. She has some on hand but if she restarts will need a refill. Can you call her to discuss? Call placed to patient and spoke with Alis. Mouth sores are back. She took the clotrimazole for a week and then 1 1/2 weeks. Dry mouth and white on back of her tongue. Eating normally. Took last dexamethasone today. Can she stop the peridex as it seems like it is drying out her mouth. Message sent to provider. Plan of care per Barbara Cain PA Andrews, Patricia A, RN Oh darn, yes let's do the same troches. If she hates the taste we could do nystatin swish and swallow instead but people hate the taste of that too and it's less effective. She can swap out the peridex for plain old salt/soda Prescription refill pended to provider for approval and signature. documented in this encounter Plan of Treatment Upcoming Encounters Date Type Department Care Team (Late st Contact Info) Description 02/13/2025 1:00 PM EDT Office Visit Radiation Oncology at [address] [phone] Eleonora Mensah MD [facility] DR [place] [address] documented as of this encounter Visit Diagnoses Not on filedocumented in this encounter Care Teams Board Handler Relationship Specialty Start Date End Date Charleen Williamson APRN [address] [place] [address] PCP - General Family Medicine 06/29/20 documented as of this encounter
--- OUTSIDE RECORDS SUMMARY | 2024-05-09 14:05 | XMS_ITS | Encounter Summary ---
Author Organization [facility] Address [facility] [place] [address] Care Team Providers Care Coal Unloader Name Role Phone Charleen Williamson APRN Primary Care Provider [phone] Reason for Referral * Diagnostic Test (Routine) - Closed Specialty Diagnoses / Procedures Referred By Contac t Referred To Contact Cardiology Diagnoses Malignant 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, estrogen receptor positive Procedures Echocardiogram Transthoracic([facility] or [facility]) Barbara Cain PA [facility] [place] [address] [facility] [place] [address] Referral ID Status Reason Start Date Expiration Date V isits Requested Visits Authorized [id number] Closed Specialty Service Requested 11/12/2020 11/12/2021 1 1 Reason for Visit * Reason Comments Follow-up Encounter Details Date Type Department Care Team (Late st Contact Info) Description 11/08/2020 11:30 AM EDT Office Visit Hematology [place] [address] Barbara Cain PA Malignant neoplasm [...] Sign Reading Time Taken Comments Blood Pressure 141/89 11/08/2020 11:22 AM EDT Pulse 92 11/08/2020 11:22 AM EDT Temperature 36.2 ??C (97.2 ??F) 11/08/2020 11:22 AM E DT Respiratory Rate 18 11/08/2020 11:22 AM EDT Oxygen Saturation 99% 11/08/2020 11:22 AM EDT Inhaled Oxygen Concentration - - Weight 88.6 kg (195 lb 5.2 oz) 11/08/2020 11:22 AM EDT Height 174.9 cm (5' 8.86) 11/08/2020 11:22 AM E DT Body Mass Index 28.96 11/08/2020 11:22 AM EDT documented in this encounter Progress Notes * Barbara Cain PA - 11/08/2020 11:[address] [facility] Follow-up Visit CC: breast cancer Identification: 30 y.o. female with locally advanced right breast cancer on neoadjuvant chemotherapy with TCHP Medical Oncologist: Tyra Cornejo MD Interim History: Alis presents today to continue neoadjuvant chemotherapy with TCHP q3 weeks x 6 cycles. She is here for consideration of cycle 5. She is feeling fairly well. She was evaluated a few days after her last chemotherapy by Dr. Cramer for rib pain, shortness of breath, and abdominal pain. She reports that the rib pain and shortness of breath have resolved, but she still gets occasional diffuse abdominal pains that are difficult to describe. She gets occasional nausea, worst in the days after treatments. She continues to havediarrhea, most pronounced in the first week (5 stools per day). Imodium works very well, and she has not had to use this in the last 1.5 weeks. She tried a BRAT diet but thinks this made things worse. She finds it difficult to hydrate due to nausea. While 4 mg dexamethasone made her irritable, she felt that the 2 mg dose did not help her nausea. She had a headache for the first week after chemotherapy. She was constipated for 2 days after the last treatment and felt a possible tear with minor rectal bleeding; this has since resolved. Review of Systems: General: Denies fevers, chills, appetite changes, weight changes, fatigue. Skin: Denies rashes, new skin lesions. HEENT: Denies double vision, dental pain, mouth sores. Reports headaches. Pulm: Denies cough, dyspnea. CV: Denies chest pain, palpitations. Extremities: Denies peripheral edema, leg swelling/pain/redness. Breast: Denies new masses, nipple discharge, breast pain. Breast erythema has decreased further. Lymph: Denies lymphadenopathy, lymphedema. GI: Denies vomiting, heartburn, melena. Reports nausea, abdominal pain, diarrhea, constipation. : Denies dysuria, hematuria. Repro: Premenopausal. Previously on Depot Provera q3 months, last dose early June 2020. Currently receiving goserelin q3 weeks. No vaginal bleeding. Denies abnormal vaginal bleeding, vaginal drynessor irritation. Endo: Denies hot flashes. Reports nighttime sweating. Heme: Denies bleeding, easy bruising. MSK: Denies new or worsening skeletal pain, joint pains, myalgias. No Neulasta associated aches. Knees ache, back hurt - chronic. Neuro: Denies dizziness, lightheadedness, weakness, balance problems, peripheral neuropathy, cognitive changes. Psych: Denies depression, insomnia. Reports anxiety. Started sertraline on 07/25. Breast Cancer History: Diagnosis: - 29 yo self-palpated a mass under the right nipple when she noticed it had inverted at the end of May 2020. 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 RFs: menses age 14 to present; no menses while on Depo provera. ?? PMH: Patient Active Problem List Diagnosis Code ??? Malignant neoplasm of right breast in female, estrogen receptor positive C50.911, Z17.0 Meds: chlorhexidine, dexamethasone, hydrOXYzine, lactobacillus rhamnosus (GG), lidocaine-prilocaine, loratadine, melatonin, mupirocin, omeprazole, ondansetron ODT, prochlorperazine, propranoloL, sertraline, and traZODone Allergies: Allergies Allergen Reactions ??? Tegaderm [Transparent Dressings] Use alcohol and betadine, no biopatch and duoderm. FH: family history includes Breast Cancer (age of onset: 83) in her paternal grandmother; Ovarian Cancer (age of onset: 50) in her paternal aunt; Uterine Cancer (age of onset: 50) in her paternal aunt. 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 - VUS was detected in the following genes: Gene Variant RET c.2982A>C (p.Glq091Inl) SDHB c.482A>G (p.Ssb855Dot) SH: Social History Tobacco Use ??? Smoking status: Never Smoker ??? Smokeless tobacco: Never Used Vaping Use ??? Vaping Use: Never used Substance Use Topics ??? Alcohol use: Not on file ??? 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 On Medicaid. Alis lives with her who is disabled and receives disability benefits. They also get food stamps, fuel assistance and use the local food pantry. Vitals: Patient Vitals for the past 24 hrs: Temp Pulse Resp BP SpO2 11/08/20 1122 36.2 ??C (97.2 ??F) 92 18 141/89 99 % Wt Readings from Last 3 Encounters: 11/08/20 88.6 kg (195 lb 5.2 oz) 10/23/20 88 kg (193 lb 15.7 oz) 10/18/20 88.6 kg (195 lb 5.2 oz) Physical Exam: Vitals reviewed and remarkable for: BP 141/89 (anxious) General: A&Ox3. Well-developed and well-nourished. No acute [...] Results: Lab Results Component Value Date WBC 6.3 11/08/2020 HGB 10.4 (L) 11/08/2020 HCT 30.2 (L) 11/08/2020 MCV 97.7 (H) 11/08/2020 PLATELET 145 11/08/2020 Lab Results Component Value Date NEUTROABS 3.67 11/08/2020 Lab Results Component Value Date NA 139 11/08/2020 K Not Perf 11/08/2020 CL 104 11/08/2020 CO2 24 11/08/2020 BUN 13 11/08/2020 CREATININE 0.75 11/08/2020 GLUCOSE 124 11/08/2020 CALCIUM 9.3 11/08/2020 ESTGFR 108 11/08/2020 Lab Results Component Value Date ALT Not Perf 11/08/2020 AST Not Perf 11/08/2020 ALKPHOS 61 11/08/2020 BILITOT 0.4 11/08/2020 ALBUMIN 4.4 11/08/2020 PROT 7.7 11/08/2020 Baseline echo 07/20/20: EF 62% Assessment & Plan: Alis is a 30 y.o. woman with locally advanced ER/MS+ HER2+ right breast cancer. She underwent oocyte harvesting and embryo preservation and received her first dose of goserelin for preservation of ovarian function on 08/14/20. She started TCHP neoadjuvant chemotherapy on 08/17/20. I can no longer feel her right breast mass. She presents today for cycle 5 of TCHP. Laboratory results are within acceptable limits to proceed with treatment today. ?? Proceed with C5 of TCHP, q3 weeks x 6 cycles ?? Goserelin injections for fertility preservation to be done q3 weeks to align with chemotherapy treatments. ?? Growth factor support: Neulasta OnPro. ?? Contraception: Dr. Cornejo has recommended abstinence for 4 weeks, after which ovaries shouldbe suppressed with goserelin. We will need to discuss a contraception plan after goserelin injections are stopped. ?? Cardiovascular monitoring: Baseline TTE 07/20/20, EF 62%. Due December, ordered today. ?? Antiemetic plan: ?? Premedications: Cinvanti, Aloxi ?? Home regimen: ?? Dexamethasone 4 mg for 2-3 days, followed by 2 mg for 1-3 days ?? Compazine and/or Zofran and/or Ativan PRN. ?? Symptom management: ?? Diarrhea: Imodium PRN, has not needed Lomotil ?? Constipation: Likely due to Aloxi, will keep for nausea control. Encouraged hydration, prune juice +/- laxative in the days after treatment. ?? Psychosocial: Coping well, anxiety improved. Good support from , PCP. Followed by Britney Kohler MSW. ?? Coordination of care: ?? Transition to HER2-targeted therapy after TCHP, final recommendations will depend on pathology. She may choose to have these treatments at [facility] in the winter. ?? She intends to have surgery here; MRI and f/u with Dr. Hunt planned for 12/06 and 12/12 ?? RTC in 3 weeks for 6th and final cycle of TCHP. She will contact me in the interim if she has any concerns. All questions answered. Barbara Cain PA-C Medical Oncology - Breast & GI Cancers [facility] Pager - [phone] Future Appointments Date Time Provider Department Center 11/08/2020 1:00 PM [facility] INFUSION THERAPY [facility] INF [address] [place] [address] 11/29/2020 9:00 AM ACCESS ROOM [facility] INF 3K [facility] 11/29/2020 10:00 AM Tyra Cornejo MD [facility] HEM ONC [facility] 11/29/2020 11:30 AM [facility] INFUSION THERAPY [facility] INF 3K [facility] 12/06/2020 10:50 AM [facility] MR 1 MH MRI [facility] Rad 12/12/2020 3:30 PM Eulalio Hunt MD [facility] SURG [facility] documented in this encounter Plan of Treatment Upcoming Encounters Date Type Department Care Team (Late st Contact Info) Description 02/13/2025 1:00 PM EDT Office Visit Radiation Oncology at [address] [phone] Eleonora Mensah MD [facility] [place] [address] documented as of this encounter Results * ECHO COMPLETE W CONTRAST (12/06/2020 11:53 AM EDT) EF 59 HEARTLAB SYSTEM Anatomical Region Laterality Modality Other 12/06/2020 Narrative 12/06/2020 12:29 PM EDT Procedure: ?Transthoracic Echocardiogram Patient: ?REYNA FORMAN ?(Age): 1990(30y) Med Rec#: ? [id number] ?Sex: ?F ? Site Loc: ? [facility] ?Ht / Wt: ??172.72(cm)/88.9 Pt. Loc: ?Echo Lab ?BSA: ?2.03 Study Date: ?? 12/06/2020 ?Pt. Type: Outpatient Tape: ? Referring: Tyra Cornejo Reading: Conrad Yeung ([id number]) Interactive Media Marketing Specialist: Sunshine Joseph Diagnosis: *Estrogen receptor positive status [...] Vmax ?0.89 ? m/sec ? MV deceleration [id number] ? msec ? MV A-wave Vmax ?0.73 [...] ? Pulmonic Valve/Qp:Qs ?Value ?Units (Range) ? MS end-diastolic Vma1.25 ? m/sec ? Wall Motion: Segment Name ?Rest ? Base-Anteroseptal ?? Normal ? Base-Anterior ? Normal ? Base-Anterolateral ??Normal ? Base-Posterolateral Normal ? Base-Inferior ? Normal ? Base-Inferoseptal ?? Normal ? Mid-Anteroseptal ?Normal ? Mid-Anterior ?Normal ? Mid-Anterolateral ?? Normal ? Mid-Posterolateral ??Normal ? Mid-Inferior ?Normal ? Mid-Inferoseptal ?Normal ? [place]-Septal ? Normal ? [place]-Anterior ? Normal ? [place]-Lateral ?Normal ? [place]-Inferior ? Normal ? [place]-Tip ?Normal ? This report has been electronically signed by: Conrad Yeung M.D. ? 12/06/2020 12:28:43 Images reviewed and interpretation verified [facility] Cardiac Ultrasound Laboratory Procedure Note Conrad Yeung MD - 12/06/2020 Procedure: Transthoracic Echocardiogram Patient: REYNA HEMPHILL(Age): 1990(30y) Med Rec#: [id number] Sex: F Site Loc: [facility] Ht / Wt: 172.72(cm)/88.9 Pt. Loc: Echo Lab BSA: 2.03 Study Date: 12/06/2020 Pt. Type: Outpatient Tape: Referring: Tyra Cornejo Reading: Conrad Yeung ([id number]) Interactive Media Marketing Specialist: Sunshine Joseph Diagnosis: *Estrogen receptor positive status [...] MV E-wave Vmax 0.89 m/sec MV deceleration [id number] msec MV A-wave Vmax 0.73 m/sec MV [...] 2.2 cm Pulmonic Valve/Qp:Qs Value Units (Range) MS end-diastolic Vma1.25 m/sec Wall Motion: Segment Name Rest Base-Anteroseptal Normal Base-Anterior Normal Base-Anterolateral Normal Base-Posterolateral Normal Base-Inferior Normal Base-Inferoseptal Normal Mid-Anteroseptal Normal Mid-Anterior Normal Mid-Anterolateral Normal Mid-Posterolateral Normal Mid-Inferior Normal Mid-Inferoseptal Normal [place]-Septal Normal [place]-Anterior Normal [place]-Lateral Normal [place]-Inferior Normal [place]-Tip Normal This report has been electronically signed by: Conrad Yeung M.D. 12/06/2020 12:28:43 Images reviewed and interpretation verified [facility] Cardiac Ultrasound Laboratory Tyra Cornejo MD ECHO ORDERABLES * (ABNORMAL) Comprehensive metabolic panel (non-fasting) (11/08/2020 1:49 PM EDT) Glucose 132 65 - 199 mg/dL [facility] Comment:Diabetes: >=200 mg/d L plus symptoms Blood Urea Nitrogen 11 8 - 18 mg/dL [facility] Creatinine 0.69(L) 0.70 - 1.20 mg/dL [facility] Sodium 138 135 - 145 mmol/L [facility] Potassium 3.6 3.5 - 5.0 mmol/L [facility] Comment: Please note: ??Patients with WBC >100,000 may have falsely elevated Potassium levels. ??For accurate Potassium quantification in these patients send serum separator tube (gold top) for subsequent determinations. ??Contact the Clinical Chemistry Laboratory if there are any questions. Chloride 103 98 - 107 mmol/L [facility] Carbon Dioxide 25 22 - 31 mmol/L [facility] Anion Gap 10 5 - 15 mmol/L [facility] Calcium 9.3 8.5 - 10.5 mg/dL [facility] Protein, Total 7.6 6.1 - 8.0 gm/dL [facility] Albumin 4.4 3.2 - 5.2 gm/dL [facility] Aspartate Aminotransferase 17 0 - 30 unit/L [facility] Alanine Aminotransferase 24 0 - 30 unit/L [facility] Alkaline Phosphatase 64 35 - 105 unit/L [facility] Bilirubin, Total 0.4 0.2 - 1.3 mg/dL [facility] Est Glomerular Filtration Rate 118 >=60 mL/min/1. 73 m?? [facility] Comment: This patient? s estimated [...] Lab Tyra Cornejo MD CHEMISTRY ORDERABLE S [facility] [place] [address] * (ABNORMAL) Comprehensive metabolic panel (non-fasting) (11/08/2020 12:36 PM EDT) Glucose 96 65 - 199 mg/dL [facility] Comment:Diabetes: >=200 mg/d L plus symptoms Blood Urea Nitrogen 12 8 - 18 mg/dL [facility] Creatinine 0.65(L) 0.70 - 1.20 mg/dL [facility] Sodium 137 135 - 145 mmol/L [facility] Potassium Not Perf 3.5 - 5.0 [facility] Comment: Please note: ??Patients with WBC >100,000 may have falsely elevated Potassium levels. ??For accurate Potassium quantification in these patients send serum separator tube (gold top) for subsequent determinations. ??Contact the Clinical Chemistry Laboratory if there are any questions. Unable to quantitate due to sample hemolysis. ??Sample redraw suggested. called 11/08/20 13:32 to Barbara Cain Chloride 105 98 - 107 mmol/L [facility] Carbon Dioxide 24 22 - 31 mmol/L [facility] Anion Gap 8 5 - 15 mmol/L [facility] Calcium 8.9 8.5 - 10.5 mg/dL [facility] Protein, Total Not Perf 6.1 - 8.0 [facility] Comment: Unable to quantitate due to sample hemolysis. ??Sample redraw suggested. called 11/08/20 13:32 to Barbara Cain Albumin 4.3 3.2 - 5.2 gm/dL [facility] Aspartate Aminotransferase Not Perf 0 - 30 [facility] Comment: Unable to quantitate due to sample hemolysis. ??Sample redraw suggested. called 11/08/20 13:32 to Barbara Cain Alanine Aminotransferase Not Perf 0 - 30 [facility] Comment: Unable to quantitate due to sample hemolysis. ??Sample redraw suggested. called 11/08/20 13:32 to Barbara Cain Alkaline Phosphatase Not Perf 35 - 105 [facility] Comment: Unable to quantitate due to sample hemolysis. ??Sample redraw suggested. called 11/08/20 13:32 to Barbara Cain Bilirubin, Total 0.4 0.2 - 1.3 mg/dL [facility] Est Glomerular Filtration Rate 121 >=60 mL/min/1. 73 m?? [facility] Comment: This patient? 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
--- OUTSIDE RECORDS SUMMARY | 2024-05-09 14:05 | XMS_ITS | Encounter Summary ---
[place] [address] Care Team Providers Care Production Cook Name Role Phone Charleen Williamson APRN Primary Care Provider [phone] Reason for Visit * Reason Onset Date Comments Follow-up 10/04/2020 mouth sores Encounter Details Date Type Department Care Team (Late st Contact Info) Description 10/04/2020 Telephone [place]ology [place] [phone] Subha Holt RN Follow-up (mouth sores) Social History Tobacco Use Types Packs/Day Years [...] Telephone Encounter - Subha Holt RN - 10/04/2020 9:00 AM EDT Images from the original note were not included. TRIAGE CALL Message received from area secretary: Dafne Cabrera [facility] Hem Onc Triage Breast Call back [phone] Alis called with c/o ongoing mouth sores and white spots on her tongue. She's wondering if she should restart her clotrimazole or not. Diagnosis/current treatment:Right breast cancer/CARBOplatin / DOCEtaxel / TRASTuzumab / PERTuzumab Call placed to patient Symptom Review per conversation with caller: White stuff on tongue, back and middle of tongue. Denies pain, redness, sores, fevers or chills. Does not interfere with eating except that her taste is off. Dry mouth is back again. Did not use peridex today but has been using lately. She finished the last batch of troches and restarted the peridex. This was fine for a little while and now they are back. Plan of Care and actions for worsening condition per discussion withPAYTON Moffett Telephone Triage for Oncology Nurses, 3rd Edition, ONC, [place] [facility] [place], 2019 Barbara Cain PA Andrews, Patricia A, RN Osbaldo Figueredo, I think by this point we should give her fluconazole PO. 200 mg on day 1, then 100 mg on days 2-7, with 1 refill to go up to 14 days if symptoms persist. Pt/responsible caregiver able to read back and [...] EDT Office Visit Radiation Oncology at [address] [phone] Eleonora Mensah MD [facility] [place] [address] documented as of this encounter Visit Diagnoses Not on filedocumented in this encounter Care Teams Production Cook Relationship Specialty Start Date End Date Charleen Williamson APRN [address] [place] [address] PCP - General Family Medicine 06/29/20 documented as of this encounter
--- OUTSIDE RECORDS SUMMARY | 2024-05-09 14:05 | XMS_ITS | Encounter Summary ---
Author Organization [facility] Address [facility] [place] [address] Care Team Providers Care Flat Spring Assembler Name Role Phone Charleen Williamson APRN Primary Care Provider [phone] [phone] Reason for Visit * Reason Comments Follow-up Encounter Details Date Type Department Care Team (Late st Contact Info) Description 10/23/2020 3:30 PM EDT Office Visit Hematology [place] [address] Tyra Cornejo MD [facility] [address] [place] [address] Malignant neoplasm of central portion of right [...] Sign Reading Time Taken Comments Blood Pressure 131/93 10/23/2020 3:28 PM EDT Pulse 100 10/23/2020 3:28 PM EDT Temperature 36.9 ??C (98.4 ??F) 10/23/2020 3:28 PM ED T Respiratory Rate 18 10/23/2020 3:28 PM EDT Oxygen Saturation 98% 10/23/2020 3:28 PM EDT Inhaled Oxygen Concentration - - Weight 88 kg (193 lb 15.7 oz) 10/23/2020 3:28 PM EDT Height 173.5 cm (5' 8.31) 10/23/2020 3:28 PM ED T Body Mass Index 29.23 10/23/2020 3:28 PM EDT documented in this encounter Progress Notes * Tyra Cornejo MD - 10/23/2020 3:30 PM EDT Images from the original note were not included. Subjective: Patient ID: Alis Silva is a 30 y.o. female. Cc: rib/ upper abdominal pain Interval history: Alis called in this am complaining of poor sleep due to shortness of breath, bilateral lower rib pain, upper abdominal pain, nausea and diarrhea. Eating and drinking ok. Persistent nausea, unimproved with compazine and ondansetron. No vomiting. 6 loose stools yesterday, took immodium once. 2 loose stools this am, took immodium before she camehere as directed. +nasal pain from nasal sore + coating on her tongue 29 yo self-palpated a mass under the right nipple when she noticed it had inverted at the end of May 2020. Dx 06/29/20 [facility], [place] + HER2 + right invasive carcinoma with [...] of Systems Constitutional: Positive for activity change. Staying with her parents until Daern is done with his antibiotics. Gets along well with her parents. HENT: Negative for mouth sores, nosebleeds and sore throat. Respiratory: Positive for shortness of breath. Negative for cough, wheezing and stridor. Cardiovascular: Negative for chest pain, palpitations and leg swelling. Gastrointestinal: Positive for abdominal pain, diarrhea and nausea. Negative for abdominal distention, anal bleeding, blood in stool and constipation. Endocrine: Negative. Genitourinary: Negative. Musculoskeletal: Negative. Skin: Negative. Neurological: Negative. Hematological: Negative. Psychiatric/Behavioral: Positive for agitation. Did get agitated on lower dex dose, stopped it early, after 3 days. Objective: Physical Exam Vitals reviewed. Constitutional: Appearance: Normal appearance. HENT: Head: Normocephalic. Right Ear: External ear normal. Left Ear: External ear normal. Nose: Mucosal edema present. Left Turbinates: Enlarged and swollen. Mouth/Throat: Mouth: Mucous membranes are moist. Pharynx: Oropharyngeal exudate present. No posterior oropharyngeal erythema. Comments: Scant exudate on posterior tongue, no white plaques. Eyes: General: No scleral icterus. Conjunctiva/sclera: Conjunctivae normal. Cardiovascular: Rate and Rhythm: Normal rate and regular rhythm. Pulses: Normal pulses. Heart sounds: Normal heart sounds. Pulmonary: Effort: Pulmonary effort is normal. No respiratory distress. Breath sounds: Normal breath sounds. No stridor. No wheezing, rhonchi or rales. Comments: Takes deep breaths without difficulty, no guarding or splinting, no pleurisy reported. Chest: Chest wall: No tenderness. Abdominal: General: Abdomen is flat. Bowel sounds are normal. There is no distension. Palpations: Abdomen is soft. There is no mass. Tenderness: There is no abdominal tenderness. There is no guarding or rebound. Hernia: No hernia is present. Musculoskeletal: General: Normal range of motion. Cervical back: Normal range of motion and neck supple. No rigidity. Lymphadenopathy: Cervical: No cervical adenopathy. Skin: General: Skin is warm and dry. Neurological: General: No focal deficit present. Mental Status: She is alert and oriented to person, place, and time. Psychiatric: Mood and Affect: Mood normal. Behavior: Behavior normal. Thought Content: Thought content normal. Judgment: Judgment normal. CXR viewed by me, normal cardiopulmonary imaging Normal pulse, and oxygen, and BP. Recent Results (from the past 24 hour(s)) Comprehensive metabolic panel (non-fasting) Result Value Ref Range Glucose Lvl 103 65 - 199 mg/dL BUN 15 8 - 18 mg/dL Creatinine 0.79 0.70 - 1.20 mg/dL Sodium 136 135 - 145 mmol/L Potassium 3.6 3.5 - 5.0 mmol/L Chloride 99 98 - 107 mmol/L CO2 27 22 - 31 mmol/L Anion Gap 10 5 - 15 mmol/L Calcium 9.5 8.5 - 10.5 mg/dL Total Protein 8.1 (H) 6.1 - 8.0 gm/dL Albumin 4.7 3.2 - 5.2 gm/dL AST 26 0 - 30 unit/L ALT 37 (H) 0 - 30 unit/L Alk Phos 106 (H) 35 - 105 unit/L Total Bilirubin 0.5 0.2 - 1.3 mg/dL Estimated GFR 102 >=60 mL/min/1.73 m?? Hemogram Result Value Ref Range WBC 6.1 4.0 - 9.5 x10(3)/mcL RBC 3.57 (L) 4.00 - 5.21 x10(6)/mcL Hemoglobin 11.8 11.7 - 15.5 gm/dL Hematocrit 33.1 (L) 35.7 - 45.8 % MCV 92.7 82.6 - 94.4 fL MCH 33.1 (H) 27.1 - 32.0 pg MCHC 35.6 (H) 31.7 - 35.0 gm/dL Platelets 119 (L) 145 - 357 x10(3)/mcL RDWSD 49.9 (H) 37.0 - 46.0 fL RDWCV 14.6 (H) 11.5 - 14.1 % MPV 9.1 7.6 - 12.9 fL nRBC % Auto 0.0 % nRBC Abs Auto 0.000 0.000 - 0.000 x10(3)/mcL Differential, Automated Result Value Ref Range Neutrophils % 67.9 % Neutr Abs (ANC) 4.12 1 - 6 x10(3)/mcL Lymphocytes % 23.2 % Lymphocytes Abs 1.4 0.9 - 3.2 x10(3)/mcL Monocytes % 6.8 % Monocyte Abs 0.4 0.3 - 0.9 x10(3)/mcL Eosinophils % 0.2 % Eosinophils Abs 0.0 0.0 - 0.4 x10(3)/mcL Basophils % 0.3 % Basophils Abs 0.0 0.0 - 0.1 x10(3)/mcL Immature Gran % 1.60 % Madalyn Gran Abs 0.10 (H) 0.00 - 0.04 x10(3)/mcL Scan, Peripheral Blood Result Value Ref Range Plat Estimate Decreased RBC Morphology Normal D-Dimer, Quantitative Result Value Ref Range D-Dimer, Quant 672 (H) 0 - 500 FEU ng/ml Assessment and Plan: No problem-specific Assessment & Plan notes found for this encounter. #1 Breast cancer--29 yo with her2 + breast cancer, clinical response to therapy, currently day 6 ofcycle 4. Chest pain/ SOB not reproducible on exam today, D-Dimer likely elevated due to chronic inflammationsecondary to chemo/ breast cancer. Low clinical probability of PE. #2 Chemotherapy--monitoring for toxicity--multiple grade 1/ 2 issues: Epigastric pain: increase omeprazole to 40 mg daily. Nausea poorly controlled on compazine and ondansetron--if omeprazole doesn't help, consider olanzapine day 1-3 with next cycle; add phenergan prn. Diarrhea--emphasized importance of Conscientious use of immodium with each loose stool, add lomotilif more than 6 loose stools in a day despite immodium as directed. Discussed a GI Friendly diet, with BRAT diet, simple carbohydrate comfort fords, as well as bone broth, warm milk and ovaltine qhs, warm soaks and/or hot water bottle to upper abdomen at night. Antibiotic ointment prescribed to inner left turbinate inflammation. If worsens or no improvement: ENT consult. #3 Fatigue--increased due to poor sleep. Try above interventions, call back if still not sleeping well. #4 Menopausal symptoms--stable. #5 Bone health--not discussed. #6 Medication management --as above. muciprocin nasal ointment prescribed to [facility] pharmacy Plan: as above If still struggling later this week/ next week, recommend IV hydration with IV phenergan. F/u as previously scheduled for cycle 5 documented in this encounter Plan of Treatment Upcoming Encounters Date Type Department Care Team (Late st Contact Info) Description 02/13/2025 1:00 PM EDT Office Visit Radiation Oncology at [address] [address] Eleonora Mensah MD [facility] [place] [address] documented as of this encounter Visit Diagnoses Diagnosis Malignant 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, estrogen receptor positive documented in this encounter Care Teams Flat Spring Assembler Relationship Specialty Start Date End Date Charleen Williamson APRN [address] [place] [address] PCP - General Family Medicine 06/29/20 documented as of this encounter
--- OUTSIDE RECORDS SUMMARY | 2024-05-09 14:06 | XMS_ITS | Encounter Summary ---
Author Organization [facility] [place] [address] Care Team Providers Care Lead Software Engineer Name Role Phone Charleen Williamson APRN Primary Care Provider [phone] Reason for Referral * Consultation (Urgent) - Specialty Diagnoses / Procedures Referred By Contac t Referred To Contact Reproductive Endocrinology Diagnoses Encounter for fertility preservation counseling 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, estrogen receptor positive Barbara Cain PA [facility] [place] [address] Referral ID Status Reason Start Date Expiration Date V isits Requested Visits Authorized [id number] Consult, Test & Treat 07/20/2020 01/16/2021 1 1 Encounter Details Date Type Department Care Team (Late st Contact Info) Description 07/20/2020 Orders Only [place]ology [place] [address] Barbara Cain PA Encounter for fertility preservation counseling; Malignant neoplasm of overlapping sites of right [...] EDT Office Visit Radiation Oncology at [address] [address] Eleonora Mensah MD [facility] [place] [address] Scheduled Referrals Name Type Priority Associated Diagnoses Orde r Schedule Referral to Infertility Outpatient Referral Routine Encounter for fertility preservation counseling 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, estrogen receptor positive Ordered: 07/20/2020 documented as of this encounter Visit Diagnoses Diagnosis Encounter for fertility preservation counseling 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, estrogen receptor positive documented in this encounter Care Teams Lead Software Engineer Relationship Specialty Start Date End Date Charleen Williamson APRN [address] [place] [address] PCP - General Family Medicine 06/29/20 documented as of this encounter
--- OUTSIDE RECORDS SUMMARY | 2024-05-09 14:06 | XMS_ITS | Encounter Summary ---
Author Organization [facility] Address [facility] [place] [address] Care Team Providers Care Ski Lift Mechanic Name Role Phone Charleen Williamson APRN Primary Care Provider [phone] [phone] Reason for Visit * Treatment/Therapy Plan Authorization [...] (PARAPLATIN) [id number] Romie (Trastuzumab-anns) Tyra Cornejo MD [facility] [address] [place] [address] [facility] Hem Onc [address] [place] [address] Referral ID Status Reason Start Date Expiration Date Visits Re quested Visits Authorized [id number] Closed 07/20/2020 07/20/2021 99 99 Encounter Details Date Type Department Care Team (Latest Contact Info) Description 08/17/2020 8:49 AM EDT - 08/17/2020 11:59 PM EDT Hospital Encounter [place]ology [place] [address] Malignant neoplasm of overlapping sites [...] PM EDT documented as of this encounter Discharge Instructions * Patient Instructions* Michaela Mcleod RN - 08/17/2020 12:07 PM EDT Pt. chemo teaching instructions reinforced: During clinic hours (8am-5pm Thursday-Thursday): pt. can call [phone] with questions or concerns. After clinic hours (5pm-8am Thursday-Thursday and weekends) pt can call [phone] and ask for the anime artist/oncologist workers compensation defense attorney. Alis Silva verbalized understanding of potential chemotherapy side effects and home care including but not limited to- handwashing to prevent infection, signs and symptoms of low blood counts (fever, fatigue, bleeding), to call with a fever of 100.4 or greater, any significant constipation/diarrhea, importance of nutrition and fluid intake (drinking at least 32-64 ounces of non-caffeinated beverages/day), mouth care. CALL IF YOU EXPERIENCE ?? Fever of 38 C /100.4 F or higher (do not take medicine to lower your temperature unless your care Team tells you it is OK) ?? Shaking chills with or without fever ?? Difficulty breathing-different from your normal breathing ?? New or uncontrolled pain anywhere ?? Inability to keep fluids down ?? Bleeding ?? Chest pain or palpitations ?? Fluttering in the chest (may feel like butterflies) ?? Swelling of the legs, arm or face ?? Sudden change in vision ?? Seizure ?? Changes in your bowel pattern, with or without abdominal pain (more than 3 loose stools per day,or no stool for 2 days) ?? Sudden changes in your ability to speak documented in this encounter Medications at Time of Discharge Medication Sig Dispensed Refills Start Date End Date ondansetron ODT (Zofran-ODT) 4 mg Tablet, Rapid Dissolve Take 4 mg by mouth as needed. 08/15/2020 melatonin 5 mg Tablet Take by mouth nightly. hydrOXYzine (Atarax) 10 mg Tablet TAKE 1 TO 2 TABLETS BY MOUTH EVERY 8 HOURS NEEDED FOR ANXIETY 07/09/2020 omeprazole (PriLOSEC) 20 mg Capsule, Delayed Release(E.C.) Take 20 mg by mouth daily. 12/19/2020 sertraline (Zoloft) 50 mg Tablet TAKE 1 TABLET BY MOUTH DAILY 08/08/2020 12/19/2020 loratadine (Claritin) 10 mg Tablet Take 10 mg by mouth daily. 11/15/2021 LORazepam (Ativan) 0.5 mg Tablet Take 1 tablet by mouth every 6 hours as needed (for chemo-induced nausea) for up to 30 days. 15 tablet 07/20/2020 08/19/2020 prochlorperazine (Compazine) 10 mg Tablet Take 1 [...] Progress Notes * Michaela Mcleod RN - 08/17/2020 11:49 AM EDT Patient Name: Alis Silva Patient Age: 29 y.o. Birthdate: 1990 Admit date: 08/17/2020 Attending Physician: No att. providers found Alis Silva, 29 y.o. female with diagnosis of breast cancer is here for first time chemotherapy infusion of TCHOP with Onpro application. Patient observed for 60 minutes post pertuzumab per protocol. Oriented to the infusion suite and all questions addressed. PROTOCOL: no CYCLE: 1 DAY: 1 LVEF: 07/20/2020 62% S: Patient offers no complaints at this time. O: Chemotherapy orders independently verified for correct drug name, route and dosage per patient'sheight, weight and BSA by Chaya Mcleod RN and onsite pharmacist REACTIONS (DESCRIPTION, TIME, INTERVENTION AND EFFECTIVENESS) None A: Pt. Tolerated treatment well. Alis Avelar Ricardo confirms that all questions and issues have been addressed. P: Return to clinic as scheduled Pt. chemo teaching instructions included: During clinic hours (8am-5pm Thursday-Thursday): pt. can call [phone] with questions or concerns. After clinic hours (5pm-8am Thursday-Thursday and s) pt can call [phone] and ask for the anime artist/oncologist workers compensation defense attorney. Alis Silva verbalized understanding of potential chemotherapy side effects and home care including but not limited to- handwashing to prevent infection, signs and symptoms of low blood counts (fever, fatigue, bleeding), to call with a fever of 100.4 or greater, any significant constipation/diarrhea, importance of nutrition and fluid intake (drinking at least 32-64 ounces of non-caffeinated beverages/day), mouth care. Alis Silva verbalized understanding of how to take prescription medications given for home use after chemotherapy. documented in this encounter Plan of Treatment Upcoming Encounters Date Type Department Care Team (Late st Contact Info) Description 02/13/2025 1:00 PM EDT Office Visit Radiation Oncology at [address] [address] Eleonora Mensah MD [facility] [place] [address] documented as of this encounter Visit Diagnoses Diagnosis 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, estrogen receptor positive documented in this encounter Administered Medications Inactive Administered Medications - up to 3 most recent administrations Medication Order MAR Action Action Date Dose Rate Site aprepitant (CINVANTI) injection Emul 130 mg 130 mg, Intravenous, Administer over 2 Minutes, ONCE, 1 dose, On Thu08/17/20 at 1045, Alternative administration of IV push over 2 minutes is a recommendation from the supervisor acoustical tile carpenters. Administer prior to chemotherapy., Routine Given 08/17/2020 1:05 PM EDT 130 mg CARBOplatin (Paraplatin) 900 mg in dextrose 5% 340 mL infusion 900 mg (Target AUC = 6), Intravenous, ONCE, 1 dose, On Thu08/17/20 at 1145, Administer over 30 Minutes, Warning Vesicant/Irritant Medication New Bag 08/17/2020 5:08 PM EDT 900 mg 680 mL/hr dexamethasone (PF) (Decadron) (10 mg/mL) injection 10 mg 10 mg, Intravenous, ONCE, 1 dose, On Thu08/17/20 at 1045, Administer 60 minutes prior to DOCEtaxel Given 08/17/2020 1:05 PM EDT 10 mg diphenhydrAMINE (Benadryl) capsule 50 mg 50 mg, Oral, ONCE, 1 dose, On Thu08/17/20 at 1045, Administer 60 minutes prior to DOCEtaxel, Routine Given 08/17/2020 1:04 PM EDT 50 mg DOCEtaxeL (Taxotere) 140 mg in sodium chloride 0.9% Non-PVC 257 mL infusion 140 mg, Intravenous, ONCE, 1 dose, On Thu08/17/20 at 1145, Administer over 60 Minutes, Warning Vesicant/Irritant Medication Dose Ordered = 153 mg (75 mg/m2). Pharmacist rounded dose per procedure. New Bag 08/17/2020 3:59 PM EDT 140 mg 257 mL/hr famotidine (Pepcid) (10 mg/mL) injection 20 mg 20 mg, Intravenous, ONCE, 1 dose, On Thu08/17/20 at 1045, Administer 60 minutes prior to DOCEtaxel Given 08/17/2020 1:05 PM EDT 20 mg heparin (pf) (porcine) (100 units/mL) flush 5 mL syringe 500 Units 500 Units, Intravenous, ONCE PRN, Starting on Thu08/17/20 at 1025, Until 4/24/21 at 0435, Line Care, Refer to Intravenous (IV) Procedure: Accessing Implanted Vascular Access Devices (654) procedure and/or Intravenous (IV) Job Aid: Adult Flushing & Catheter Care (3811) job aid for additional information regarding guidelines and administration., Routine Given 08/17/2020 5:44 PM EDT 500 Units palonosetron (Aloxi) (0.25 mg/mL) injection 0.25 mg 0.25 mg, Intravenous, ONCE, 1 dose, On Thu08/17/20 at 1045, Administer over 30 seconds., Routine Given 08/17/2020 1:05 PM EDT 0.25 mg pegfilgrastim (Neulasta Onpro) (6 mg/0.6 mL) injection kit 6 mg 6 mg, Subcutaneous, ONCE, 1 dose, On Thu08/17/20 at 1045, Allow the prefilled syringe co-packaged with the on-body injector to reach room temperature at least 30 minutes prior to administration. , Routine, This agent is restricted to outpatient use. Is this drug being given as an outpatient? Yes Given 08/17/2020 5:37 PM EDT 6 mg Right Arm pertuzumab (Perjeta) 840 mg in sodium chloride 0.9% 278 mL infusion 840 mg, Intravenous, ONCE, 1 dose, On Thu08/17/20 at 1145, Administer over 60 Minutes, This agent is restricted to outpatient use. Is this drug being given as an outpatient? Yes New Bag 08/17/2020 11:39 AM EDT 840 mg 278 mL/hr sodium chloride 0.9 % (flush) flush 5-20 mL 5-20 mL, Intravenous, EVERY 1 MIN PRN, Starting on Thu08/17/20 at 1025, Until 08/18/20 at 0435, Line Care, Flush pertains to all indwelling lines. Flush per protocol found in the job aid using the link provided on this medication record. Refer to Intravenous (IV) Job Aid: Adult Flushing & Catheter Care (1681) job aid for additional information regarding guidelines and administration., Routine Given 08/17/2020 5:44 PM EDT 20 mLs TRASTuzumab-anns (Kanjinti) 680 mg in sodium chloride 0.9% 282.4133 mL infusion 680 mg (rounded from 684 mg = 8 mg/kg/dose ? 85.5 kg Treatment plan Recorded weight), Intravenous, ONCE, 1 dose, On Thu08/17/20 at 1145, Administer over 90 Minutes, Incompatible in D5W, This agent is restricted to outpatient use. Is this drug being given as an outpatient? Yes New Bag 08/17/2020 2:10 PM EDT 680 mg 188.3 mL/hr documented in this encounter Care Teams Ski Lift Mechanic Relationship Specialty Start Date End Date Charleen Williamson APRN [address] [place] [address] PCP - General Family Medicine 06/29/20 documented as of this encounter
--- OUTSIDE RECORDS SUMMARY | 2024-05-09 14:06 | XMS_ITS | Encounter Summary ---
[place] [address] Care Team Providers Care Health Care Assistant Name Role Phone Charleen Williamson APRN Primary Care Provider [phone] [phone] Encounter Details Date Type Department Care Team (Late st Contact Info) Description 07/23/2020 Telephone Hematology [place] [phone] Dafne Cabrera Social History Tobacco Use Types Packs/Day Years [...] encounter Miscellaneous Notes * Telephone Encounter - Dafne Cabrera - 07/23/2020 7:59 AM EDT Referral for fertility preservation sent to [facility] Reproductive Medicine documented in this encounter Plan of Treatment Upcoming Encounters Date Type Department Care Team (Late st Contact Info) Description 02/13/2025 1:00 PM EDT Office Visit Radiation Oncology at [address] [address] Eleonora Mensah MD [facility] [place] [address] documented as of this encounter Visit Diagnoses Not on filedocumented in this encounter Care Teams Health Care Assistant Relationship Specialty Start Date End Date Charleen Williamson APRN [address] [place] [address] PCP - General Family Medicine 06/29/20 documented as of this encounter
--- OUTSIDE RECORDS SUMMARY | 2024-05-09 14:06 | XMS_ITS | Encounter Summary ---
Author Organization [facility] Address [facility] [place] [address] Care Team Providers Care Jacquard Loom Weaver Name Role Phone Charleen Williamson APRN Primary Care Provider [phone] [phone] Reason for Visit * Reason Comments Establish Care Encounter Details Date Type Department Care Team (Late st Contact Info) Description 07/11/2020 3:45 PM EDT Office Visit [place] [address] Eulalio Hunt MD [facility] [place] [address] Malignant neoplasm of right breast in female, estrogen receptor positive, unspecified site of breast Social History Tobacco Use Types Packs/Day Years Used Date Smoking Tobacco: Never Assessed Overall Financial Resource Strain (CARDIA) Answe r [...] Sign Reading Time Taken Comments Blood Pressure 141/86 07/11/2020 3:14 PM EDT Pulse 109 07/11/2020 3:14 PM EDT Temperature 36.5 ??C (97.7 ??F) 07/11/2020 3:14 PM ED T Respiratory Rate 18 07/11/2020 3:14 PM EDT Oxygen Saturation 100% 07/11/2020 3:14 PM EDT Inhaled Oxygen Concentration - - Weight 87.5 kg (193 lb) 07/11/2020 3:14 PM EDT Height 172.7 cm (5' 8) 07/11/2020 3:14 PM EDT Body Mass Index 29.35 07/11/2020 3:14 PM EDT documented in this encounter Progress Notes * Eulalio Hunt MD - 07/11/2020 3:45 PM EDT Alis Silva is a 29-year-old woman sent for consultation by Charleen Williamson for right breast cancer. Alis over the last several months felt a mass located beneath her right areola. Her right nipple began to invert a bit as well. She had a mammogram which showed a 2.7 cm right retroareolar mass with calcifications and some skinthickening. On ultrasound a 2.5 cm mass was seen at 11:00 2 cm from the right nipple. Core biopsy showed invasive carcinoma, ER positive, W[place] positive and HER-2 positive. On physical exam I noted some erythema of her breast skin. She cannot recall how long that is been present for. Right axillary ultrasound showed 1 lymph node with that was 8 mm in diameter but had a thickened cortex. Core biopsy of that was positive for cancer. Metastatic work-up has included a bone scan that was negative. A CT scan is being done later this afternoon. She is scheduled for an MRI this evening. I have asked our breast program to set her up with genetics counseling. She has a family history of breast cancer in her paternal grandmother who developed breast cancer in her 80s. A paternal aunt had ovarian cancer. Alis is not of Ashkenazi Jehovah'S Witness heritage. She is G0, P0. Current medications: Inderal and hydroxyzine. She has no known drug allergies. Past surgical history significant for some oral surgery. Social history: she works on a [employer] outside of [facility]. She is here with her significant other. His name is Elmer. Review of systems: negative for cardiac, pulmonary, renal symptoms. Rest of ROS negative. On physical exam she is alert and oriented. In general she appears anxious. BMI is 29. Lungs are clear. Heart is a regular rhythm. On examination of her right breast she has an 8 x 5 cm area of erythema over the skin that is present around the areola. There is pitting edema of the skin in that areaalso. Her nipple is inverted. There is a 5 x 4 cm mass present underneath the entire areola. The are olar skin is really not movable over the mass. The mass is movable on the chest wall. There are no other masses in the right breast. There is no right axillary adenopathy. She has full range of motion of the right arm, no right arm edema. There are no left nipple abnormalities or breast masses, no left axillary adenopathy. Abdomen is flat. She is grossly neurologically nonfocal. I personally reviewed her mammogram and ultrasound images. 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 She has erythema of the skin that isdiscrete and clear edema of the skin as well. I did not do a skin punch biopsy today because I do not want to interfere with the CT scheduling orcomplicate the interpretation of the skin on the MRI that she is tp have later this evening. I can potentially do a skin punch biopsy next week when she comes back in to see Dr. Cornejo, but this is not necessary to establish the inflammatory diagnosis. The CT scan will be important to rule out distant metastatic disease. I told Alis that we would be starting her treatment with systemic therapy will be directed to Her-2. Since she has inflammatory breast cancer I would then recommend that we proceed with a modified radical mastectomy. After that we would routinely treat with radiation therapy. I will give her a call after the results of the CT scan come back. The genetics testing will be done but its not urgent because we will be proceeding with systemic therapy first. Copy to Tyra Cornejo and Charleen Williamson 07/12/20 Addendum I called Alis today and let her know the results of her CT and mRI. CT: no distant mets. MRI: extensive right breast tumor as expected. 6 mm indeterminate left breast lesion. Although this may be overly compulsive, since she is going to be getting chemo and we will likely not be able to follow this lesion well, I asked Radiology to go ahead with the LEFT breast MR guided core bx that they suggested in their report. * Denia Zhong RN - 07/11/2020 3:45 PM EDT Comprehensive Breast Program Note Alis Silva is a 29 y.o. female with right breast cancer and right axillary lymph node metastatic carcinoma. I met with the patient and her Daren before her surgical oncology consultation. SPECIFIC TEACHIN. Breast Cancer Treatment Handbook (Soo Adams, 2017) was sent via mail. 2. Information from our Shared Decision-Marking Program on Early-Stage Breast Cancer and Systemic Adjuvant Treatment Options previously provided. 3. She understands she will meet with a medical oncologist (on 07/18) to discuss neoadjuvant treatment. 4. Contact phone number for questions or concerns in the immediate post- operative period. 5. Comprehensive Breast Program Binder provided. 6. Post Breast Surgery Exercises handout created by physical therapists at [facility] [place] (briefly reviewed). 7. Breast Cancer Treatment Process care map (neoadjuvant treatment) provided and reviewed. 8. Things to Consider...What I Wish I Knew advice from breast cancer patients handout provided. 9. Contact information for the General Surgery Clinic Nurses and Dr. Cornejo's number/triage nurse number were given and the doctor craft demonstrator system explained. Twenty minutes was spent in education and providing support. She will meet with Dr. Cornejo next week in medical oncology alis has our contact information. Pre-op MRI: Yes Abnormalities detected Contralateral (other than index lesion) Referral to familial counseling: Yes documented in this encounter Plan of Treatment Upcoming Encounters Date Type Department Care Team (Late st Contact Info) Description 02/13/2025 1:00 PM EDT Office Visit Radiation Oncology at [address] [phone] Eleonora Mensah MD [facility] RADIATION [place]COL[place] [address] documented as of this encounter Visit Diagnoses Diagnosis Malignant neoplasm of right breast in female, estrogen receptor positive, unspecified site of breast documented in this encounter Care Teams Jacquard Loom Weaver Relationship Specialty Start Date End Date Charleen Williamson APRN [address] [place] [address] PCP - General Family Medicine 06/29/20 documented as of this encounter
--- OUTSIDE RECORDS SUMMARY | 2024-05-09 14:06 | XMS_ITS | Encounter Summary ---
Author Organization [facility] [place] [address] Care Team Providers Care Fitness Centre Manager Name Role Phone Charleen Williamson APRN Primary Care Provider [phone] Reason for Visit * Reason Comments Genetic Evaluation * Consultation (Routine) - Closed Specialty Diagnoses / Procedures Referred By Fawn t Referred To Contact Hematology and Oncology Diagnoses Breast cancer personal and Strong fhx of breast cancer Eulalio Hunt MD [facility] [place] [address] [facility] Hem [place]c [address] [place] [address] Referral ID Status Reason Start Date Expiration Date Visits Re quested Visits Authorized [id number] Closed 07/11/2020 07/11/2021 1 1 Encounter Details Date Type Department Care Team (Latest Contact Info) Description 07/23/2020 11:00 AM EDT TH Visit (TeleHealth) [place] [address] Luisa Quintero, [facility] 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, estrogen receptor positive; Family history of ovarian cancer; Family history of breast cancer Social History Tobacco [...] as of this encounter Progress Notes * Luisa Quintero LGC - 07/23/2020 11:00 AM EDT Alis Silva was seen by Luisa Quintero [facility] in consultation at the request of Eulalio snider regarding possible heritable predisposition to cancer. Due to COVID-19 restrictions this wasa phone consult. I spent 20 minutes of this telephone encounter with the patient gathering medical and family history and discussing the likelihood of a genetic predisposition to cancer and the option of genetic testing. Reason for referral/Chief complaint Personal history of breast cancer. Medical history Cancer hx and treatment: Right Inflammatory ER/OH/HER2+ IDC/ILC with a positive lymph node diagnosed at age 29. Biopsy of the left breast was normal. Payam- adjuvant chemotherapy is planned followed by mastectomy. Age at 1st menses: 14 Age at 1st child: n/a Oral contraceptive use: none Family history Paternal grandmother - Breast cancer at age 83 Paternal aunt - Uterine and ovarian cancer at about age 50. Currently age 60. Alis does not thinkamari has had any genetic testing. Maternal ethnic background is [place]. Paternal ethnic background is [place]. Not sure if any Ashkenazi Buddhism background Genetic risk assessment Based on personal history of breast cancer at age 29, the likelihood that Alis would be found to have a mutation in a cancer predisposition gene is high enough to offer the option of genetic testing. Panel genetic testing for an inherited predisposition to cancer, including breast, gynecologic and other cancers was discussed. The risks, benefits and limitations of panel genetic testing were reviewed, specifically a high rate of identifying a variant of uncertain significance, lack of knowledge of cancer risk for newly identified, moderate risk genes included in the panel and lack of effective screening, as well as cancer risk for other cancers not observed in the family. Alis opted for t esting with [employer] 9 gene STAT Breast Cancer Panel, including BRCA1 and BRCA2, reflexing to the Multi-Cancer Panel which will analyze an additional 75 genes that contribute to increased risk for cancer. Alis gave verbal consent for testing. I will be mailing the consent forms to Alis to complete and return to me. Alis was in the car when we spoke having [place] [facility] [place] going to return to the [facility] lab to have her blood drawn today. Testing will take 5-12 days for the STAT study and up to 3 weeks for the rest of the analysis. Alis will be contacted via telephone once her test results become available. If positive, we will offer a follow-up appointment. At that time, we will discuss with Alis the implications that this testresult may have for her, as well as her family members and answer any questions she may have. documented in this encounter Plan of Treatment Upcoming Encounters Date Type Department Care Team (Late st Contact Info) Description 02/13/2025 1:00 PM EDT Office Visit Radiation Oncology at [address] [phone] [facility] [place] [address] documented as of this encounter Results * Research Venipuncture (07/23/2020 12:11 PM EDT) Research Venipuncture Drawn [facility] Blood specimen (specimen) 07/23/2020 12:11 PM EDT 07/23/2020 12:20 PM EDT Narrative Resulting Agency Comment Spec In Lab Jose Ramhan MD CHEMISTRY ORDERABLES [facility] [place] [address] documented in this encounter Visit Diagnoses Diagnosis 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, estrogen receptor positive Family history of ovarian cancer Family history of malignant neoplasm of ovary Family history of breast cancer Family history of malignant neoplasm of breast documented in this encounter Care Teams Fitness Centre Manager Relationship Specialty Start Date End Date Charleen Williamson APRN [address] [place] [address] PCP - General Family Medicine 06/29/20 documented as of this encounter
--- OUTSIDE RECORDS SUMMARY | 2024-05-09 14:06 | XMS_ITS | Encounter Summary ---
Author Organization [facility] Address [facility] [place] [address] Care Team Providers Care Chimney Supervisor Brick Name Role Phone Chraleen Williamson APRN Primary Care Provider [phone] Reason for Visit * Treatment/Therapy Plan Authorization [...] (PARAPLATIN) [id number] Romie (Trastuzumab-anns) Tyra Cornejo MD [facility] [address] [place] [address] [facility] Hem Onc [address] [place] [address] Referral ID Status Reason Start Date Expiration Date Visits Re quested Visits Authorized [id number] Closed 07/20/2020 07/20/2021 99 99 Encounter Details Date Type Department Care Team (Latest Contact Info) Description 08/17/2020 8:45 AM EDT - 08/17/2020 8:48 AM EDT Hospital Encounter [place] [address] Malignant neoplasm of overlapping sites [...] 8 HOURS NEEDED FOR ANXIETY 07/09/2020 sertraline (Zoloft) 50 mg Tablet TAKE 1 [...] Progress Notes * Mindi Vences RN - 08/17/2020 9:23 AM EDT Patient Name: Alis Silva Patient Age: 29 y.o. Birthdate: 1990 Admit date: 08/17/2020 Attending Physician: No att. providers found Access visit. See MAR and/or flowsheet. documented in this encounter Miscellaneous Notes * Addendum Note - Mindi Vences RN - 08/17/2020 10:58 AM EDTEncounter addended by: Mindi Vences RN on: 08/17/2020 10:58 AM Actions taken: Allergies modified documented in this encounter Plan of Treatment Upcoming Encounters Date Type Department Care Team (Late st Contact Info) Description 02/13/2025 1:00 PM EDT Office Visit Radiation Oncology at [address] [phone] Eleonora Mensah MD [facility] [place] [address] documented as of this encounter Procedures Procedure Name Priority Date/Time Associated Diagnosis Comments SCAN, PERIPHERAL BLOOD STAT 9:15 AM EDT HEMOGRAM STAT 08/17/2020 9:15 AM EDT 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, estrogen receptor positive DIFFERENTIAL, AUTOMATED STAT 08/17/2020 9:15 AM EDT 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, estrogen receptor positive HC CBC,PLT & AUTO DIFF STAT 9:15 AM EDT 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, estrogen receptor positive COMPREHENSIVE METABOLIC PANEL STAT 08/17/2020 9:15 AM EDT 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, estrogen receptor positive documented in this encounter Results * Scan, Peripheral Blood (08/17/2020 9:15 AM EDT) Plat estimate Normal [facility] RBC Morphology Normal [facility] Blood specimen (specimen) 08/17/2020 9:15 AM EDT 08/17/2020 9:34 AM EDT Narrative Resulting Agency Comment Spec In Lab Tyra Cornejo MD HEMATOLOGY ORDERABL ES [facility] [place] [address] * (ABNORMAL) Differential, Automated (08/17/2020 9:15 AM EDT) Neutrophil % 71.5 % [facility] Neutrophil Absolute 10.89(H) 1.70 - 6.10 x10(3)/mc L [facility] Lymph % 16.0 % [facility] Lymphocytes Abs 2.4 0.9 - 3.2 x10(3)/mc L [facility] Monocyte % 10.6 % [facility] Monocyte Abs 1.6(H) 0.3 - 0.9 x10(3)/mc L [facility] Eos % 0.9 % [facility] Eosinophils Abs 0.1 0.0 - 0.4 x10(3)/mc L [facility] Basophil % 0.5 % [facility] Baso Absolute 0.1 0.0 - 0.1 x10(3)/mc L [facility] Immature Gran % 0.50 % [facility] Comment: Immature granulocytes(IG's)percentage and absolute count will include metamyelocytes, myelocytes, and promyelocytes. Blood smears from CBCs yielding IG's will be scanned manually for concordance. If this scan disagrees with the automated IG or if promyelocytes are noted, a manual differential will be performed. Immature Gran Absolute 0.07(H) 0.00 - 0.04 x10(3)/ L [facility] Blood specimen (specimen) 08/17/2020 9:15 AM EDT 08/17/2020 9:34 AM EDT Narrative Resulting Agency Comment Spec In Lab Tyra Cornejo MD HEMATOLOGY ORDERABL ES [facility] [place] [address] * (ABNORMAL) Hemogram (08/17/2020 9:15 AM EDT) White Blood Cell 15.2(H) 4.0 - 9.5 x10(3)/[facility] Red Blood Cell 4.51 4.00 - 5.21 x10(6)/[facility] Hemoglobin 13.8 11.7 - 15.5 gm/dL [facility] Hematocrit 38.7 35.7 - 45.8 % [facility] Mean Cell Volume 85.8 82.6 - 94.4 fL [facility] Mean Cell Hemoglobin 30.6 27.1 - 32.0 pg [facility] Mean Cell Hemoglobin Concentration 35.7(H) 31.7 - 35.0 gm/dL [facility] Platelet 187 145 - 357 x10(3)/[facility] RDW Standard Deviation 37.8 37.0 - 46.0 [facility] RDW coefficient of variation 12.2 11.5 - 14.1 % [facility] Mean Platelet Volume 8.6 7.6 - 12.9 fL [facility] NRBC% auto 0.0 % [facility] NRBC Absolute 0.000 0.000 - 0.000 x10(3)/[facility] Blood specimen (specimen) 08/17/2020 9:15 AM EDT 08/17/2020 9:34 AM EDT Narrative Resulting Agency Comment Spec In Lab Tyra Cornejo MD HEMATOLOGY ORDERABL ES [facility] [place] [address] * (ABNORMAL) Comprehensive metabolic panel (non-fasting) (08/17/2020 9:15 AM EDT) Glucose 86 65 - 199 mg/dL [facility] Comment:Diabetes: >=200 mg/d L plus symptoms Blood Urea Nitrogen 9 8 - 18 mg/dL [facility] Creatinine 0.65(L) 0.70 - 1.20 mg/dL [facility] Sodium 136 135 - 145 mmol/L [facility] Potassium 4.2 3.5 - 5.0 mmol/L [facility] Comment: Please note: ??Patients with WBC >100,000 may have falsely elevated Potassium levels. ??For accurate Potassium quantification in these patients send serum separator tube (gold top) for subsequent determinations. ??Contact the Clinical Chemistry Laboratory if there are any questions. Chloride 105 98 - 107 mmol/L [facility] Carbon Dioxide 24 22 - 31 mmol/L [facility] Anion Gap 7 5 - 15 mmol/L [facility] Calcium 9.1 8.5 - 10.5 mg/dL [facility] Protein, Total 7.1 6.1 - 8.0 gm/dL [facility] Albumin 3.9 3.2 - 5.2 gm/dL [facility] Aspartate Aminotransferase 42(H) 0 - 30 unit/L [facility] Alanine Aminotransferase 53(H) 0 - 30 unit/L [facility] Alkaline Phosphatase 63 35 - 105 unit/L [facility] Bilirubin, Total <0.2(L) 0.2 - 1.3 mg/dL [facility] Est Glomerular Filtration Rate 122 >=60 mL/min/1. 73 m?? [facility] Comment: This patient? s estimated glomerular filtration rate (eGFR) is between 122 mL/min/1.73 m2 (patients with less muscle mass) and 141 mL/min/1.73 m2 (patients with more muscle mass) [...] in addition to eGFR. Blood specimen (specimen) 08/17/2020 9:15 AM EDT 08/17/2020 9:34 AM EDT Narrative Resulting Agency Comment Spec In Lab Tyra Cornejo MD CHEMISTRY ORDERABLE S [facility] [place] [address] documented in this encounter Visit Diagnoses Diagnosis 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, estrogen receptor positive documented in this encounter Administered Medications Inactive Administered Medications - up to 3 most recent administrations Medication Order MAR Action Action Date Dose Rate Site sodium chloride 0.9 % (flush) flush 5-20 mL 5-20 mL, Intravenous, EVERY 1 MIN PRN, Starting on 08/17/20 at 0850, Until 08/18/20 at 0435, Line Care, Flush pertains to all indwelling lines. Flush per protocol found in the job aid using the link provided on this medication record. Refer to Intravenous (IV) Job Aid: Adult Flushing & Catheter Care (8981) job aid for additional information regarding guidelines and administration., Routine Given 08/17/2020 9:19 AM EDT 20 mLs documented in this encounter Care Teams Chimney Supervisor Brick Relationship Specialty Start Date End Date Charleen Williamson APRN [address] [place] [address] PCP - General Family Medicine 06/29/20 documented as of this encounter
--- OUTSIDE RECORDS SUMMARY | 2024-05-09 14:06 | XMS_ITS | Encounter Summary ---
Author Organization [facility] Address [facility] [place] [address] Care Team Providers Care Chemical Engineering Intern Name Role Phone Charleen Williamson APRN Primary Care Provider [phone] [phone] Reason for Referral * Diagnostic Test (Routine) - Closed Specialty Diagnoses / Procedures Referred By Contac t Referred To Contact Radiology Diagnoses Malignant 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, estrogen receptor positive Procedures IR Mediport Placement Tyra Cornejo MD [facility] [address] [place] [address] [facility] [place] [address] Referral ID Status Reason Start Date Expiration Date V isits Requested Visits Authorized [id number] Closed Specialty Service Requested 07/18/2020 01/18/2022 1 1 * Diagnostic Test (Routine) - Closed Specialty Diagnoses / Procedures Referred By Contac t Referred To Contact Cardiology Diagnoses Malignant 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, estrogen receptor positive Procedures Echocardiogram Transthoracic([facility] or [facility]) Tyra Cornejo MD [facility] [address] [place] [address] [facility] [place] [address] Referral ID Status Reason Start Date Expiration Date V isits Requested Visits Authorized [id number] Closed Specialty Service Requested 07/18/2020 07/18/2021 1 1 Reason for Visit * Reason Comments Advice Only Encounter Details Date Type Department Care Team ([facility] st Contact Info) Description 07/18/2020 3:00 PM EDT Office Visit H[place] [address] Tyra Cornejo MD [facility] [address] [place] [address] Malignant neoplasm of central portion of right [...] Sign Reading Time Taken Comments Blood Pressure 145/83 07/18/2020 2:58 PM EDT Pulse 117 07/18/2020 2:58 PM EDT pt. stated pulse run high lately Temperature 37 ??C (98.6 ??F) 07/18/2020 2:5 8 PM EDT Respiratory Rate 18 07/18/2020 2:58 PM EDT Oxygen Saturation 98% 07/18/2020 2:5 8 PM EDT Inhaled Oxygen Concentration - - Weight 85.5 kg (188 lb 6.4 oz) 07/18/2020 2:58 PM EDT Height 174.6 cm (5' 8.74) 07/18/2020 2 :58 PM EDT Body Mass Index 28.03 07/18/2020 2:58 PM EDT documented in this encounter Progress Notes * Tyra Cornejo MD - 07/18/2020 3:00 PM EDT Subjective: Patient ID: Alis Silva is a 29 y.o. female. Cc: breast cancer New patient consult Requesting MD: Darius Hunt Reason for referral: evaluate for neoadjuvant therapy 29 yo self-palpated a mass under the right nipple when she noticed it had inverted at the end of May 2020. Dx 06/29/20 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 R ALN bx + metastatic carcinoma. cT2N1 grade 2/3 Stage IB Fhx: PGM with breast cancer in her 80's; paternal aunt with ovarian ca; 2 brothers without cancer; no cousins with breast or ovarian cancer. menses age 14 to present; no menses while on Depo provera. Review of Systems Constitutional: Negative. HENT: Negative. Eyes: Negative. Respiratory: Negative. Cardiovascular: Negative. Gastrointestinal: Negative. Endocrine: Negative. Genitourinary: Negative. Musculoskeletal: Negative. Skin: Positive for color change. Allergic/Immunologic: Negative. Neurological: Negative. Hematological: Negative. Psychiatric/Behavioral: Negative. Objective: Physical Exam Vitals and nursing note reviewed. HENT: Head: Normocephalic. Right Ear: External ear normal. Left Ear: External ear normal. Eyes: General: No scleral icterus. Conjunctiva/sclera: Conjunctivae normal. Pupils: Pupils are equal, round, and reactive to light. Cardiovascular: Rate and Rhythm: Normal rate and regular rhythm. Pulses: Normal pulses. Heart sounds: Normal heart sounds. Pulmonary: Effort: Pulmonary effort is normal. Chest: Breasts: Right: Inverted nipple, mass and skin change present. No tenderness. Left: Skin change present. No inverted nipple, mass, nipple discharge or tenderness. Abdominal: General: Abdomen is flat. Musculoskeletal: General: Normal range of motion. Cervical back: Normal range of motion. Skin: General: Skin is warm and dry. Findings: Erythema present. Neurological: General: No focal deficit present. Mental Status: She is alert and oriented to person, place, and time. Psychiatric: Mood and Affect: Mood normal. Behavior: Behavior normal. Thought Content: Thought content normal. Judgment: Judgment normal. Pathology, mammogram, MRI, ct , bone scan, medical records reviewed in detail. Assessment and Plan: No problem-specific Assessment & Plan notes found for this encounter. #1 Breast cancer--clinical stage IB triple positive breast cancer, Doesn't currently meet criteria for inflammatory breast cancer as <30% of the breast is erythematous; skin reaction with erythema and peau d'orange seems to be limited to area directly overlying tumor mass. Pt consented to photograph today. Will follow to see rate of change and re-image prior tostarting chemotherapy, but patient has not reported a big change in the last several weeks since she discovered the lumps. We did not review predict data today. #2 Chemotherapy--monitoring for toxicity--discussed in detail what to expect for TCH-P, preparatorytests including echo. #3 Fatigue--advised to adjust work schedule to allow for flexibility if possible, especially aroundthe physically strenuous parts of her job. Regular exercise very important to prevent fatigue. #4 Menopausal symptoms--currently using depo provera, so no regular menstrual flow; suggest keepingthis until after chemo and surgery, then transitioninn to non-hormonal method. Discussed fertility preservation. She and Daren do want to have children. I expect she will regainfertility given her young age, but if she'd like more of a guarantee, I recommend researching fertility preservation. Medicaid does not cover it, but the [employer] [facility] at [facility] for young breast cancer survivors may have freida funding available. #5 Bone health--bone scan neg for mets. #6 Medication management --discussed supportive care and medications to be used to help prevent side effects. Sleeping very poorly now, recommend trying trazodone, if not effective, she can discuss alternatives with PCP. Plan: Port Echo Chemo teach for TCH-P Fertility preservation referral if desired, she will let us know. Trazodone 50-150 mg qhs F/u 2-3 wks for eval prior to starting chemotherapy. Thank you for this referral, I appreciate the opportunity to participate in her care. Time: 60 minutes of this 80 minute visit was spent in counseling patient on treatment options and assessment and plan. Yayu-oc-aphk visit 80 min History and Physical: 20 min. Discussion pts of counseling: as outlined above. documented in this encounter Plan of Treatment Upcoming Encounters Date Type Department Care Team (Late st Contact Info) Description 02/13/2025 1:00 PM EDT Office Visit Radiation Oncology at [address] [address] Eleonora Mensah MD [facility] [address] [place] [address] documented as of this encounter Results * IR Mediport Placement (07/23/2020 10:05 AM EDT) Anatomical Region Laterality Modality X-Ray Angiograph y Narrative 07/23/2020 9:57 AM EDT IR PROCEDURE NOTE ?? Procedure: Port placement. ?? Indication for Procedure: Per Alis Edmonds??is a 29 y.o.??female??with inflammatory cancer of the right breast. Her treatment team is planning to start chemotherapy and a planning modified radical mastectomy. IR has been consulted to place a Mediport for alf durable venous access for chemotherapy.? Procedure events and findings: After obtaining informed consent patient was positioned supine on procedure table. ??Left neck base and upper chest prepped and draped with maximum sterile barrier technique used throughout the procedure. ??Due to the painful nature of the procedure, patient received split doses of intravenous fentanyl and versed from the IR nurse while pulse, pressure, and oxygen saturation were continuously monitored. ?? Prophylactic antibiotic was administered. ? Local anesthesia provided with 1% lidocaine. ??Left IJ accessed with micropuncture technique under U/S guidance and a 4Fr sheath placed. ??After additional local anesthetic with 1% lidocaine and 1% lidocaine with epinephrine, a transverse skin incision was made and a port pocket created with blunt dissection in the upper chest. ?? Single lumen CT injection compatible port was connected to the port catheter. ??The port catheter (8Fr) was tunneled from the port pocket to the neck entry site and the port positioned in the port pocket. The guide wire was used to measure the amount of catheter to be placed. ??The 4Fr sheath was exchanged for a peel-away sheath and the port catheter placed via the peel-away with catheter tip positioned in RA under fluoroscopic guidance. ??Port was accessed and aspirated and flushed readily. ??The port was then loaded with heparin solution. ?? The neck incision was closed with tissue adhesive. ??The pocket incision was closed with interrupted deep 2-0 resorbable suture, superficial 4-0 resorbable suture and tissue adhesive. ? Medications: Fentanyl 250 mcg IV, Versed 4mg IV, 1% Lidocaine <10ccs subcutaneous, Ancef 2.0 grams IV. ?? Est Blood Loss: <5cc. ?? Complications: ??No immediate. ?? Impression: ?? 1. ??Patent left IJ by ultrasound. ?? 2. ??Placement of single lumen CT injection compatible port via left IJ, catheter tip in right atrium, port ready for use. ?? Resident/Fellow: ??None. ?? Attending: I, Dr. Urbina performed this procedure. ??I was present during the intraservice time as documented by the IR Nurse.? Tyra Cornejo MD IMG IR ORDERABLES * ECHO COMPLETE W CONTRAST (07/20/2020 2:09 PM EDT) EF 62 HEARTLAB SYSTEM Anatomical Region Laterality Modality Other 07/20/2020 Narrative 07/20/2020 2:37 PM EDT Procedure: ?Transthoracic Echocardiogram Patient: ?REYNA FORMAN R ?(Age): 1990(29y) Med Rec#: ? [id number] ?Sex: ?F ? Site Loc: ? [facility] ?Ht / Wt: ??177(cm)/86(kg) Pt. Loc: ?Echo Lab ?BSA: ?2.03 Study Date: ?? 07/20/2020 ?Pt. Type: Outpatient Tape: ? Referring: KEN Reading: Emiliano Sanchez ([id number]) Expert Witness: Gali Thomas Expert Witness 2: Rena Roberts Diagnosis: *Estrogen receptor positive status [ER+] (Z17.0) Rhythm: ? Sinus BP: ? 130/70 SUMMARY: 1. The left ventricular chamber size is normal. ??Left ventricular wall thickness is normal. ??There is normal global left ventricular systolic function. ??The quantitative left ventricular ejection fraction by biplane Garcia's method is 62%. 2. Right ventricular chamber size, wall thickness, and systolic function are within normal limits. Findings ? : Left Ventricle: ? The left ventricular chamber size is normal. ?Left ventricular wall thickness is normal. ?There is no evidence of LVOT obstruction. ?No ventricular septal defect is visualized. ?There is normal global left ventricular systolic function. ?The quantitative left ventricular ejection fraction by biplane Garcia's method is 62%. ?There are no left ventricular segmental wall motion abnormalities. ?Doppler assessment is consistent with normal left sided filling pressure. Left Atrium: ? The left atrium is normal in size. Right Ventricle: ? Right ventricular chamber size, wall thickness, and systolic function are within normal limits. Right Atrium: ? The right atrium appears [...] ?Value ?Units (Range) ? IVSd (2D) ? 0.89 ? cm ? LVPWd (2D) ?0.9 ?cm ? IVS:LVPW ratio (2D) 0.99 ? ratio ? RWT (2D) ?0.44 ? ratio ? RWT PW (2D) ? 0.44 ? ratio ? LVIDd (2D) ?4.09 ? cm ? LVIDs (2D) ?2.1 ?cm ? LVIDd (2D) index ?2.01 ? cm/m2 ? LVIDs (2D) index ?1.03 ? cm/m2 ? LV FS (2D) ?48.67 ?% ? EF Teichholz (2D) ?? 80.5 ? % ? Ao root diameter (2D3.16 ? cm (2.1 - 3.6) ? Ascending Ao ?2.39 ? cm (2 - 3.5) ? Volumes/Mass ?Value ?Units (Range) ? LA Area 4 CH ?16.4 ? cm2 (<21) ? LA ESV BP (A/L) inde18.6 ? ml/m2 ? RA AREA 4CH ? 9.6 ?cm2 ? LV ESV SP 4CH (MOD) 21.91 ?ml ? LV ESV SP 2CH (MOD) 28.56 ?ml ? LV EDV BP ? 68.12 ?ml ? LV ESV BP ? 25.93 ?ml ? LV EDV BP index ? 33.49 ?ml/m2 ? LV ESV BP index ? 12.75 ?ml/m2 ? BP EF (MOD) ? 61.94 ?% ? LV mass (2D) ?112.8 ?g ? LV mass (2D) index ??55.46 ?g/m2 ? Diastolic/Systolic Function ?Value ?Units (Range) ? MV E-wave Vmax ?0.85 ? m/sec ? MV deceleration asyq967.68 ? msec ? MV A-wave Vmax ?0.53 ? m/sec ? MV E:A ratio ?1.61 ? ratio ? LV septal e' Vmax ?? 0.15 ? m/sec ? LV lateral e' Vmax ??0.18 ? m/sec ? LV average e' Vmax ??0.17 ? m/sec ? LV E:e' septal ratio5.65 ? ratio ? LV E:e' lateral rati4.71 ? ratio ? LV average E:e' rati5.13 ? ratio ? Wall Motion: Segment Name ?Rest ? Base-Anteroseptal ?? Normal ? Base-Anterior ? Normal ? Base-Anterolateral ??Normal ? Base-Posterolateral Normal ? Base-Inferior ? Normal ? Base-Inferoseptal ?? Normal ? Mid-Anteroseptal ?Normal ? Mid-Anterior ?Normal ? Mid-Anterolateral ?? Normal ? Mid-Posterolateral ??Normal ? Mid-Inferior ?Normal ? Mid-Inferoseptal ?Normal ? Cameron-Septal ? Normal ? Cameron-Anterior ? Normal ? Cameron-Lateral ?Normal ? Cameron-Inferior ? Normal ? Cameron-Tip ?Normal ? This report has been electronically signed by: Emiliano Sanchez M.D. ? 07/20/2020 14:37:02 Images reviewed and interpretation verified [facility] Cardiac Ultrasound Laboratory Procedure Note Emiliano Sanchez MD - 07/20/2020 Procedure: Transthoracic Echocardiogram Patient: REYNA HEMPHILL(Age): 1990(29y) Med Rec#: [id number] Sex: F Site Loc: [facility] Ht / Wt: 177(cm)/86(kg) Pt. Loc: Echo Lab BSA: 2.03 Study Date: 07/20/2020 Pt. Type: Outpatient Tape: Referring: [facility] Reading: Emiliano Sanchez ([id number]) Expert Witness: Gali Thomas Expert Witness 2: Rena Roberts Diagnosis: *Estrogen receptor positive status [ER+] (Z17.0) Rhythm: Sinus BP: 130/70 SUMMARY: 1. The left ventricular chamber size is normal. Left ventricular wall thickness is normal. There is normal global left ventricular systolic function. The quantitative left ventricular ejection fraction by biplane Garcia's method is 62%. 2. Right ventricular chamber size, wall thickness, and systolic function are within normal limits. Findings : Left Ventricle: The left ventricular chamber size is normal. Left ventricular wall thickness is normal. There is no evidence of LVOT obstruction. No ventricular septal defect is visualized. There is normal global left ventricular systolic function. The quantitative left ventricular ejection fraction by biplane Garcia's method is 62%. There are no left ventricular segmental wall motion abnormalities. Doppler assessment is consistent with normal left sided filling pressure. Left Atrium: The left atrium is normal in size. Right Ventricle: Right ventricular chamber size, wall thickness, and systolic function are within normal limits. Right Atrium: The right atrium appears normal. [...] Chambers 2D Value Units (Range) IVSd (2D) 0.89 cm LVPWd (2D) 0.9 cm IVS:LVPW ratio (2D) 0.99 ratio RWT (2D) 0.44 ratio RWT PW (2D) 0.44 ratio LVIDd (2D) 4.09 cm LVIDs (2D) 2.1 cm LVIDd (2D) index 2.01 cm/m2 LVIDs (2D) index 1.03 cm/m2 LV FS (2D) 48.67 % EF Teichholz (2D) 80.5 % Ao root diameter (2D3.16 cm (2.1 - 3.6) Ascending Ao 2.39 cm (2 - 3.5) Volumes/Mass Value Units (Range) LA Area 4 CH 16.4 cm2 (<21) LA ESV BP (A/L) inde18.6 ml/m2 RA AREA 4CH 9.6 cm2 LV ESV SP 4CH (MOD) 21.91 ml LV ESV SP 2CH (MOD) 28.56 ml LV EDV BP 68.12 ml LV ESV BP 25.93 ml LV EDV BP index 33.49 ml/m2 LV ESV BP index 12.75 ml/m2 BP EF (MOD) 61.94 % LV mass (2D) 112.8 g LV mass (2D) index 55.46 g/m2 Diastolic/Systolic Function Value Units (Range) MV E-wave Vmax 0.85 m/sec MV deceleration [id number] msec MV A-wave Vmax 0.53 m/sec MV E:A ratio 1.61 ratio LV septal e' Vmax 0.15 m/sec LV lateral e' Vmax 0.18 m/sec LV average e' Vmax 0.17 m/sec LV E:e' septal ratio5.65 ratio LV E:e' lateral rati4.71 ratio LV average E:e' rati5.13 ratio Wall Motion: Segment Name Rest Base-Anteroseptal Normal Base-Anterior Normal Base-Anterolateral Normal Base-Posterolateral Normal Base-Inferior Normal Base-Inferoseptal Normal Mid-Anteroseptal Normal Mid-Anterior Normal Mid-Anterolateral Normal Mid-Posterolateral Normal Mid-Inferior Normal Mid-Inferoseptal Normal Cameron-Septal Normal Cameron-Anterior Normal Cameron-Lateral Normal Cameron-Inferior Normal Cameron-Tip Normal This report has been electronically signed by: Emiliano Sanchez M.D. 07/20/2020 14:37:02 Images reviewed and interpretation verified [facility] Cardiac Ultrasound Laboratory Tyra Cornejo MD ECHO ORDERABLES documented in this encounter Visit Diagnoses Diagnosis Malignant 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, estrogen receptor positive Malignant 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, estrogen receptor positive Malignant 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, estrogen receptor positive documented in this encounter Care Teams Chemical Engineering Intern Relationship Specialty Start Date End Date Charleen Williamson APRN [address] [place] [address] PCP - General Family Medicine 06/29/20 documented as of this encounter
--- OUTSIDE RECORDS SUMMARY | 2024-05-09 14:06 | XMS_ITS | Encounter Summary ---
Author Organization [facility] [place] [address] Care Team Providers Care Senior Oracle Developer Name Role Phone Charleen Williamson APRN Primary Care Provider [phone] [phone] Encounter Details Date Type Department Care Team (Late st Contact Info) Description 07/17/2020 [place] [id number] Ronda Silva MSW Social History Tobacco Use [...] Progress Notes * Ronda Silva MSW - 07/17/2020 1:38 PM EDT [facility] called pt after receiving a referral from Aniyah Zhong, [facility] Nurse Navigator, that she would liketo receive counseling to help her cope with her breast cancer diagnosis. Pt also requested information about support groups. I told pt that we have mental health providers at [facility] who provide therapyvirtually. Pt is interested in meeting but would need to do so by phone because her internet connection is not good. I will meet with Alis tomorrow and give her the booklet , Pt and Family Support Services at [facility], which describes some of the support groups offered. Lastly, pt was told she had been approved for transportation assistance from [facility] and should receive a check in for $150.00. P- CCM will meet with pt tomorrow to provide support and information. documented in this encounter Plan of Treatment Upcoming Encounters Date Type Department Care Team (Late st Contact Info) Description 02/13/2025 1:00 PM EDT Office Visit Radiation Oncology at [address] [address] Eleonora Mensah MD [facility] [place] [address] documented as of this encounter Visit Diagnoses Not on filedocumented in this encounter Care Teams Senior Oracle Developer Relationship Specialty Start Date End Date Charleen Williamson APRN [address] [place] [address] PCP - General Family Medicine 06/29/20 documented as of this encounter
--- OUTSIDE RECORDS SUMMARY | 2024-05-09 14:06 | XMS_ITS | Encounter Summary ---
[place] [address] Care Team Providers Care Student Life Dean Name Role Phone Charleen Williamson APRN Primary Care Provider [phone] Encounter Details Date Type Department Care Team (Late st Contact Info) Description 07/27/2020 9:00 AM EDT Telephone Hematology [place] [phone] Social History Tobacco Use Types Packs/Day Years [...] encounter Miscellaneous Notes * Telephone Encounter - Shelli De Jesus RD - 07/27/2020 7:47 AM EDT [facility] Dietitian Phone Call Seen By: Shelli De Jesus RD LD Referred by: patient request Reason for visit: nutrition questions Patient and diagnosis: Alis Silva is a 29 y.o. female with clinical stage IB triple positive right breast cancer. Plan for patient to begin neoadjuvant chemotherapy with TCHP. HPI: Patient Active Problem List Diagnosis Code ??? Malignant neoplasm of right breast in female, estrogen receptor positive C50.911, Z17.0 Meds: reviewed Labs: NNL Estimated body mass index is 27.18 kg/m?? as calculated from the following: Height as of 07/20/20: 177.6 cm (5' 9.92). Weight as of 07/20/20: 85.7 kg (189 lb). Wt Readings from Last 3 Encounters: 07/20/20 85.7 kg (189 lb) 07/18/20 85.5 kg (188 lb 6.4 oz) 07/11/20 87.5 kg (193 lb) Nutrition Assessment: Patient requested nutrition consult to discuss nutrition recommendations while undergoing treatmentfor breast cancer. She denies any new changes to her diet other than discontinuing alcohol consumption. Asks about what to eat/avoid, if beverages such as tati fatuma or gatorade are OK, and asks about whey protein powder. Patient states she typically does most of the cooking. She is taking a probiotic supplement. Food Intake: Am: granola bar and fruit, yogurt, or cereal Noon: varies - could be sandwich, mac and cheese, or soup Pm: protein, such as chicken or hamburg, veggies, pasta or potato Snacks: occasional, varies Fluids: no longer drinking alcohol Nutrition Intervention/Discussion: ? Discussed nutrition recommendations in the setting of breast cancer and with regard to upcoming treatment ? Encouraged adequate hydration, can add electrolyte containing beverages as needed ? Provided tips if changes to appetite occur during treatment; If needed, can supplement with shakes/smoothies, OK to use whey protein powder ? Also discussed the benefits of light physical activity, 20-30 minutes, most days of the week to help with fatigue, stimulate appetite, and preserve muscle mass during treatment. Educational Handouts provided: ? Protein Plate ? Healthy Recipes/Smoothie Recipes ? Links to resources: cancerdietitian.com; aicr.org Monitoring and Evaluation: Will follow up as needed. Encouraged patient to reach out if questions/concerns arise. Thank you for this consult. documented in this encounter Plan of Treatment Upcoming Encounters Date Type Department Care Team (Late st Contact Info) Description 02/13/2025 1:00 PM EDT Office Visit Radiation Oncology at [address] [address] Eleonora Mensah MD [facility] [place] [address] documented as of this encounter Visit Diagnoses Not on filedocumented in this encounter Care Teams Student Life Dean Relationship Specialty Start Date End Date Charleen Williamson APRN [address] [place] [address] PCP - General Family Medicine 06/29/20 documented as of this encounter
--- OUTSIDE RECORDS SUMMARY | 2024-05-09 14:06 | XMS_ITS | Encounter Summary ---
Author Organization [facility] Address [facility] [place] [address] Care Team Providers Care Housing Management Officer Name Role Phone Charleen Williamson APRN Primary Care Provider +1 [phone] Encounter Details Date Type Department Care Team (Late st Contact Info) Description 07/16/2020 [place] [address] Douglas Mcleod MD [facility] [address] [place] [address] Social History Tobacco Use Types Packs/Day Years [...] as of this encounter Progress Notes * Douglas Mcleod MD - 07/16/2020 10:34 AM EDT Pre-procedure note for needle breast biopsies performed in radiology. Procedure date: Scheduled for:07/18/20 Procedure type: left breast MRI guided biopsy Allergies: Patient has no known allergies. Medications: Current Outpatient Medications: ??? hydrOXYzine (Atarax) 10 mg Tablet, TAKE 1 TO 2 TABLETS BY MOUTH EVERY 8 HOURS NEEDED FOR ANXIETY, Disp: , Rfl: ??? propranoloL (Inderal) 10 mg Tablet, TAKE 1 TABLET BY MOUTH TWICE DAILY, Disp: , Rfl: Anticoagulation status: none stopped on: N/A Imaging reviewed and procedural plan approved by Dr. DOUGLAS MCLEOD MD documented in this encounter Plan of Treatment Upcoming Encounters Date Type Department Care Team (Late st Contact Info) Description 02/13/2025 1:00 PM EDT Office Visit Radiation Oncology at [address] [address] Eleonora Mensah MD [facility] [place] [address] documented as of this encounter Visit Diagnoses Not on filedocumented in this encounter Care Teams Housing Management Officer Relationship Specialty Start Date End Date Charleen Williamson, BULBS FARMWORKER [address] [place] [address] PCP - General Family Medicine 06/29/20 documented as of this encounter
--- OUTSIDE RECORDS SUMMARY | 2024-05-09 14:06 | XMS_ITS | Encounter Summary ---
Author Organization [facility] [place] [address] Care Team Providers Care Real Estate Subagent Name Role Phone Niharika Williamsonhrjessica White IVY Primary Care Provider +1 [phone] Encounter Details Date Type Department Care Team (Late st Contact Info) Description 07/23/2020 Telephone [place] [phone] Avery Castle MD [facility] [place] [address] Social History Tobacco Use Types Packs/Day Years [...] EDT Office Visit Radiation Oncology at [address] [phone] Eleonora Mensah MD [facility] [place] [address] documented as of this encounter Visit Diagnoses Not on filedocumented in this encounter Care Teams Real Estate Subagent Relationship Specialty Start Date End Date Charleen Williamson APRN [address] [place] [address] PCP - General Family Medicine 06/29/20 documented as of this encounter
--- OUTSIDE RECORDS SUMMARY | 2024-05-09 14:06 | XMS_ITS | Encounter Summary ---
[place] [address] Care Team Providers Care Director Of Hotel Operations Name Role Phone Charleen Williamson APRN Primary Care Provider [phone] [phone] Reason for Visit * Reason Comments Follow-up Encounter Details Date Type Department Care Team (Late st Contact Info) Description 08/17/2020 9:30 AM EDT Office Visit [place] [address] Barbara Cain PA 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, estrogen receptor positive; Encounter for fertility preservation counseling Social History Tobacco Use Types Packs/Day [...] Sign Reading Time Taken Comments Blood Pressure 121/77 08/17/2020 9:29 AM EDT Pulse - - Temperature 36.9 ??C (98.4 ??F) 08/17/2020 9:29 AM ED T Respiratory Rate 18 08/17/2020 9:29 AM EDT Oxygen Saturation 100% 08/17/2020 9:29 AM EDT Inhaled Oxygen Concentration - - Weight 89.6 kg (197 lb 9.6 oz) 08/17/2020 9:29 A M EDT Height 173.2 cm (5' 8.19) 08/17/2020 9:29 AM ED T Body Mass Index 29.88 08/17/2020 9:29 AM EDT documented in this encounter Progress Notes * Barbara Cain PA - 08/17/2020 9:30 AM EDT Images from the original note were not included. [facility] Follow-up Visit CC: breast cancer Identification: 29 y.o. female with locally advanced right breast cancer on neoadjuvant chemotherapy with TCHP Medical Oncologist: Tyra Cornejo MD Interim History: Alis presents today to begin neoadjuvant chemotherapy with TCHP q3 weeks x 6 cycles. Alis underwent oocyte harvesting and embryo cryopreservation through [facility] on Sunday 08/13. She reports this went well, and they were able to harvest 15 embryos. She received her second COVID vaccine on 08/14. She had her first goserelin injection at the [facility] on Monday 08/14 for preservation of ovarian function. She feels overall well, although she endorses lower abdominal/pelvic pain since the egg harvesting. She has been alternating ibuprofen 600 mgand Tylenol 1000 mg a few times a day; however, she stopped this yesterday as it was upsetting her stomach. She denies melena or hematochezia. She says her pain is about a 5 out of 10 without analgesics, and a 3 or 4 after taking something. She has been feeling warm recently, but no discrete hot flashes. Review of Systems: General: Denies fevers, chills, appetite changes, weight changes, fatigue. Skin: Denies rashes, new skin lesions. HEENT: Denies double or blurry vision, dental pain, mouth sores. Reports a few recent headaches, attributes to ibuprofen/Tylenol. Pulm: Denies cough, dyspnea. CV: Denies chest pain, palpitations. Extremities: Denies peripheral edema, leg swelling/pain/redness. Breast: Denies new masses, nipple discharge, breast pain, skin changes. Lymph: Denies lymphadenopathy, lymphedema. GI: Denies N/V/C, abdominal pain, heartburn, melena, hematochezia. Started omeprazole for GERD. Reports diarrhea yesterday, took Imodium with good relief. : Denies dysuria, hematuria. Repro: Premenopausal. Previously on Depot Provera q3 months, last dose early June 2020, no menses since being on this. Denies abnormal vaginal bleeding, vaginal dryness or irritation. Endo: Denies hot flashes, night sweats, hair thinning/loss. Reports feeling more warm. Heme: Denies bleeding, easy bruising MSK: Denies new or worsening skeletal pain, joint pains, myalgias. Neuro: Denies dizziness, lightheadedness, weakness, balance problems, peripheral neuropathy, cognitive changes. Psych: Denies depression, insomnia. Takes hydroxyzine for anxiety. Started sertraline on 07/25. Reports sleep disturbance - ?trazodone. Breast Cancer History: Diagnosis: - 29 yo self-palpated a mass under the right nipple when she noticed it had inverted at the end of May 2020. - Dx 06/29/20 [facility] [place] + HER2 + right invasive carcinoma with [...] cryopreservation - 08/14/2020 goserelin dose #1 at [place] - 08/17/2020 cycle 1 neoadjuvant TCHP ?? RFs: menses age 14 to present; no menses while on Depo provera. ?? PMH: Patient Active Problem List Diagnosis Code ??? Malignant neoplasm of right breast in female, estrogen receptor positive C50.911, Z17.0 Meds: LORazepam, hydrOXYzine, lactobacillus rhamnosus (GG), lidocaine-prilocaine, loratadine, melatonin, omeprazole, ondansetron ODT, prochlorperazine, sertraline, and traZODone Allergies: Allergies Allergen Reactions ??? Tegaderm [Transparent Dressings] Irritation with emla cream covering. Sorbaview used 08/17. Assess at next visit FH: family history includes Breast Cancer (age of onset: 83) in her paternal grandmother; Ovarian Cancer (age of onset: 50) in her paternal aunt; Uterine Cancer (age of onset: 50) in her paternal aunt. 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 - VUS was detected in the following genes: Gene Variant RET c.2982A>C (p.Wht357Slb) SDHB c.482A>G (p.Nsl716Dqu) SH: Social History Tobacco Use ??? Smoking status: Never Smoker ??? Smokeless tobacco: Never Used Substance Use Topics ??? Alcohol use: Not on file ??? Drug use: Not on file Social History Social History Narrative Had been working on a [employer] outside of [facility] but unemployed recently. On Medicaid. Alis lives with her who is disabled and receives disability benefits. They also get food stamps, fuel assistance and use the local food pantry. Vitals: Patient Vitals for the past 24 hrs: Temp Resp BP SpO2 08/17/20 0929 36.9 ??C (98.4 ??F) 18 121/77 100 % Wt Readings from Last 3 Encounters: 08/17/20 89.6 kg (197 lb 9.6 oz) 08/14/20 89.1 kg (196 lb 6.4 oz) 07/30/20 85.9 kg (189 lb 6.4 oz) Physical Exam: Vitals reviewed and remarkable for: Weight gain of 8 pounds in the last 3 weeks; afebrile General: A&Ox3. Well-developed and well-nourished. No acute distress. Head: Normocephalic, atraumatic. Eyes: PERRL. EOMs intact. Conjunctiva pink. No scleral icterus. Mouth: Good dentition. No oral erythema, exudates, or ulcerations. Neck: Supple, nontender. No cervical or supraclavicular lymphadenopathy. No thyromegaly. Chest: Port site (left) accessed. No tenderness. Mild erythema at the medial edge of the dressing (used sensitive dressing today). Cardiovascular: Normal rate, regular rhythm. No murmurs appreciated. No peripheral edema. Pulmonary: Breathing comfortably on room air. Lungs clear to auscultation bilaterally without wheezes, rhonchi, or crackles. Breasts: ?? Right: Central discrete area of erythema measuring 12 x 8 cm. Palpable mass within this area, mostly superior to nipple, measuring 8 x 8 cm. Single palpable axillary node. See photo: ??? Left: There are no suspicious masses, skin changes, nipple changes, or palpable axillary nodes. Abdomen: Soft, nondistended. Tender to palpation across lower abdomen. No masses, rebound, or guarding. No hepatomegaly. Small areas of resolving bruising in RLQ and LLQ (RLQ - goserelin, LLQ - fertility shots). Musculoskeletal: No spinal or pelvic tenderness upon palpation. Neurological: Gait normal. No focal deficits noted. Skin: Warm and dry. No rashes noted. Psychiatric: Friendly and conversive. Mood is euthymic. Affect is mood- congruent. Insight is good. Thought-content is normal, future-oriented. Results: Lab Results Component Value Date WBC 15.2 (H) 08/17/2020 HGB 13.8 08/17/2020 HCT 38.7 08/17/2020 MCV 85.8 08/17/2020 PLATELET 187 08/17/2020 Lab Results Component Value Date NEUTROABS 10.89 (H) 08/17/2020 Lab Results Component Value Date NA 136 08/17/2020 K 4.2 08/17/2020 CL 105 08/17/2020 CO2 24 08/17/2020 BUN 9 08/17/2020 CREATININE 0.65 (L) 08/17/2020 GLUCOSE 86 08/17/2020 CALCIUM 9.1 08/17/2020 ESTGFR 122 08/17/2020 Lab Results Component Value Date ALT 53 (H) 08/17/2020 AST 42 (H) 08/17/2020 ALKPHOS 63 08/17/2020 BILITOT <0.2 (L) 08/17/2020 ALBUMIN 3.9 08/17/2020 PROT 7.1 08/17/2020 Baseline echo 07/20/20: EF 62% Assessment & Plan: Alis is a 29 y.o. woman with locally advanced right breast cancer, here tostart neoadjuvant chemotherapy with TCHP. She has undergone oocyte harvesting and embryo preservation and has received her first dose of goserelin for preservation of ovarian function during cytotoxic chemotherapy (of note, there was less than 1 week between goserelin and chemo start in order to start therapy as soon as possible). Laboratory results are within acceptable limits to proceed with treatment today. Her white blood cell count is moderately elevated; however, she denies infectious symptoms such as fevers or chills. Oocyte harvesting procedure was done transvaginally, and her lower abdomen is moderately tender without rigidity or guarding. She was prescribed antibiotics after her procedure. This leukocytosis may be inflammatory/reactive as a result of the procedure or recent COVID vaccination. She will contact us or her fertility doctor SEVERIANO if the pain in her abdomen increases. Additionally her LFTs are elevated today, although I suspect this is due to recent acetaminophen use as they were normal in June. ?? Proceed with C1D1 of TCHP, to be given q3 weeks x 6 cycles ?? Goserelin injections for fertility preservation to be done q4 weeks. Patient prefers these are done at [facility] if not aligning with chemo treatments. ?? Growth factor support: Neulasta OnPro. Recommended claritin (takes daily for allergies anyway). ?? Antiemetic plan: ?? Premedications: Cinvanti, Aloxi ?? Home regimen: Compazine and/or Ativan PRN. She has Zofran 4 mg as prescribed by PCP. I let her know that she should not take this within 72 hours from her infusion, as it is a similar medication to Aloxi. ?? Symptom management: ?? Abdominal pain: Recommended heating pads to the lower abdomen and continuing Tylenol rather thanibuprofen, as she has been having GI upset; however, she reports this occurs with Tylenol as well. I offered to prescribe her a small amount of tramadol; however, she declines this as her pain is currently manageable. I let her know that if her pain increases, she should contact her fertility doctor SEVERIANO. ?? Sleep dysfunction: Trazodone 100 mg helping, although she still has occasional trouble falling back asleep if she wakes up. We will keep at current dose for now and revisit increasing dose if needed. ?? Mood: Improved, sertraline now at 50 mg. Has not needed hydroxyzine recently. ?? Contraception: Dr. Cornejo has recommended abstinence for 4 weeks, after which ovaries shouldbe suppressed with goserelin. ?? Psychosocial: Coping well, anxiety improved. Good support from , PCP. Followed by MILAGROS Hernandez. ?? RTC in 3 weeks. Our nurse will follow up with her next week. She will contact me in the interim if she has any concerns. Chemo: C1 - 08/17 C2 - 09/06 C3 - 09/27 C4 - 10/18 C5 - 11/08 C6 - 8/5 Goserelin: #1 - 08/14 #2 - 09/06 (will do a few days early to coordinate with chemo here) #3 - 10/04 #4 - 11/01 #5 - 11/29 (done here, with C6 chemo) Barbara Cain PA-C Medical Oncology - Breast & GI Cancers [facility] Pager - [phone] Future Appointments Date Time Provider Department Center 09/06/2020 9:00 AM ACCESS ROOM [facility] [address] [place] [address] 09/06/2020 10:00 AM Tyra Cornejo MD [facility] 09/06/2020 12:30 PM [facility] IN[facility]ION THERAPY [facility] [address] [place] [address] 2020 10:00 AM ACCESS ROOM [facility] [address] [place] [address] 2020 11:00 AM Barbara Cain PA [facility] 2020 12:30 PM LEB INFUSION THERAPY [facility] [address] [place] [address] 10/18/2020 10:00 AM ACCESS ROOM [facility] [address] [place] [address] 10/18/2020 11:00 AM Tyra Cornejo MD [facility] 10/18/2020 12:30 PM LEB INFUSION THERAPY [facility] [address] [place] [address] 11/08/2020 10:30 AM ACCESS ROOM [facility] [address] [place] [address] 11/08/2020 11:30 AM Barbara Cain PA [facility] 11/08/2020 1:00 PM LEB INFUSION THERAPY [facility] 3K [facility] 11/29/2020 9:00 AM ACCESS ROOM [facility] [address] [place] [address] 11/29/2020 10:00 AM Tyra Cornejo MD [facility] 11/29/2020 11:30 AM LEB INFUSION THERAPY [facility] [address] [place] [address] documented in this encounter Plan of Treatment Upcoming Encounters Date Type Department Care Team (Late st Contact Info) Description 02/13/2025 1:00 PM EDT Office Visit Radiation Oncology at [address] [phone] Eleonora Mensah MD [facility] [place] [address] documented as of this encounter Visit Diagnoses Diagnosis 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, estrogen receptor positive Encounter for fertility preservation counseling documented in this encounter Care Teams Director Of Hotel Operations Relationship Specialty Start Date End Date Charleen Williamson APRN [address] [place] [address] PCP - General Family Medicine 06/29/20 documented as of this encounter
--- OUTSIDE RECORDS SUMMARY | 2024-05-09 14:06 | XMS_ITS | Encounter Summary ---
[place] [address] Care Team Providers Care Duplicating Machine Servicer Name Role Phone Charleen Williamson APRN Primary Care Provider [phone] [phone] Reason for Visit * Reason Onset Date Comments Results 07/30/2020 Encounter Details Date Type Department Care Team (Late st Contact Info) Description 07/30/2020 Telephone Hematology [place] [phone] Luisa Quintero LGC Results Social History Tobacco Use Types Packs/Day Years [...] encounter Miscellaneous Notes * Telephone Encounter - Luisa Quintero LGC - 07/30/2020 5:33 PM EDT I called to let Alis know that the STAT genetic test results are back and are normal. The following 9 genes were analyzed: PAULINO, BRCA1, BRCA2, CDH1, CHEK2, PALB2, PTEN, STK11, and TP53. I have scanned a copy of the report into the medical record and sent a copy to Alis. I let her know that the rest of the multi-cancer panel is expected to be completed between August 09- August 20. I will contactSandra again when the rest of the results are available. documented in this encounter Plan of Treatment Upcoming Encounters Date Type Department Care Team (Late st Contact Info) Description 02/13/2025 1:00 PM EDT Office Visit Radiation Oncology at [address] [phone] Eleonora Mensah MD [facility] [place] [address] documented as of this encounter Visit Diagnoses Not on filedocumented in this encounter Care Teams Duplicating Machine Servicer Relationship Specialty Start Date End Date Charleen Williamson APRN [address] [place] [address] PCP - General Family Medicine 06/29/20 documented as of this encounter
--- OUTSIDE RECORDS SUMMARY | 2024-05-09 14:06 | XMS_ITS | Encounter Summary ---
Author Organization [facility] Address [facility] [place] [address] Care Team Providers Care Drop Wire Hanger Name Role Phone Charleen Williamson APRN Primary Care Provider +1 -[phone] Encounter Details Date Type Department Care Team (Late st Contact Info) Description 08/17/2020 Notes [place] [phone] Ronda Silva MSW Social History Tobacco Use [...] Progress Notes * Ronda Silva MSW - 08/17/2020 11:59 PM EDT [facility] met with pt during her first chemo treatment. She appeared to be coping well. Alis states shesuccessfully completed fertility preservation before she started her treatments. [facility] assisted with some of the cost and she arranged a payment plan for the balance. Pt will be mailed a [employer] gift card and two gas cards. I encouraged pt to contact me with any questions or concerns. P- [facility] will continue to provide support and resources to pt. documented in this encounter Plan of Treatment Upcoming Encounters Date Type Department Care Team (Late st Contact Info) Description 02/13/2025 1:00 PM EDT Office Visit Radiation Oncology at [address] [phone] Eleonora Mensah MD [facility] [place] [address] documented as of this encounter Visit Diagnoses Not on filedocumented in this encounter Care Teams Drop Wire Hanger Relationship Specialty Start Date End Date Charleen Williamson APRN [address] [place] [address] PCP - General Family Medicine 06/29/20 documented as of this encounter
--- OUTSIDE RECORDS SUMMARY | 2024-05-09 14:06 | XMS_ITS | Encounter Summary ---
[place] [address] Care Team Providers Care Qa Architect Name Role Phone Charleen Williamson APRN Primary Care Provider +1 -[phone] Encounter Details Date Type Department Care Team (Late st Contact Info) Description 07/12/2020 Telephone [place] [address] Eulalio Hunt MD [facility] [place] [address] Social History Tobacco Use Types Packs/Day Years [...] encounter Miscellaneous Notes * Telephone Encounter - Eulalio Hunt MD - 07/12/2020 1:01 PM EDT I called and let Alis know the CT scan results and MRI results from yesterday. documented in this encounter Plan of Treatment Upcoming Encounters Date Type Department Care Team (Late st Contact Info) Description 02/13/2025 1:00 PM EDT Office Visit Radiation Oncology at [address] [phone] Eleonora Mensah MD [facility] [address] documented as of this encounter Visit Diagnoses Not on filedocumented in this encounter Care Teams Qa Architect Relationship Specialty Start Date End Date Charleen Williamson APRN [address] [place] [address] PCP - General Family Medicine 06/29/20 documented as of this encounter
--- OUTSIDE RECORDS SUMMARY | 2024-05-09 14:06 | XMS_ITS | Encounter Summary ---
Author Organization [facility] Address [facility] [place] [address] Care Team Providers Care Cattle Sprayer Name Role Phone Charleen Williamson APRN Primary Care Provider +1 -[phone] Reason for Referral * Consultation (Routine) - Closed Specialty Diagnoses / Procedures Referred By Contmaycol t Referred To Contact Hematology and Oncology Diagnoses Malignant neoplasm of right breast in female, estrogen receptor positive, unspecified site of breast Tyra Cornejo MD [facility] [place] [address] Lacy Barroso, PhD [facility] [address] Referral ID Status Reason Start Date Expiration Date V isits Requested Visits Authorized [id number] Closed Consult, Test & Treat 07/18/2020 07/18/2021 1 1 Reason for Visit * Reason Onset Date Comments Referral 07/18/2020 referral to Uriel tapia Encounter Details Date Type Department Care Team (Late st Contact Info) Description 07/18/2020 Telephone Hematology and [place]cology [place] [address] Subha Holt, water chemist (referral to Lacy ) Social History Tobacco Use Types Packs/Day Years Used Date Smoking Tobacco: Never Smokeless Tobacco: Never Overall Financial Resource Strain (CARDIA) Arpitae r [...] Telephone Encounter - Subha Holt RN - 07/18/2020 4:23 PM EDT Message received from MILAGROS Morse: Ronda Silva MSW Sent: ThuJuly 17, 2020 ??1:47 PM To: Subha Holt RN Message: Bea, Can you put a referral in for pt to see Lacy Barroso. ?? Thanks Ronda Referral placed 07/18 documented in this encounter Plan of Treatment Upcoming Encounters Date Type Department Care Team (Late st Contact Info) Description 02/13/2025 1:00 PM EDT Office Visit Radiation Oncology at [address] [phone] Eleonora Mensah MD [facility] [place] [address] Scheduled Referrals Name Type Priority Associated Diagnoses Orde r Schedule Referral to [facility] Psychiatry (Cancer Center Only) Outpatient Referral Routine Malignant neoplasm of right breast in female, estrogen receptor positive, unspecified site of breast Ordered: 07/18/2020 documented as of this encounter Visit Diagnoses Diagnosis Malignant neoplasm of right breast in female, estrogen receptor positive, unspecified site of breast documented in this encounter Care Teams Cattle Sprayer Relationship Specialty Start Date End Date Charleen Williamson APRN [address] [place] [address] PCP - General Family Medicine 06/29/20 documented as of this encounter
--- OUTSIDE RECORDS SUMMARY | 2024-05-09 14:06 | XMS_ITS | Encounter Summary ---
[place] [address] Care Team Providers Care Tool Procurement Coordinator Name Role Phone Charleen Williamson APRN Primary Care Provider +1 [phone] Reason for Referral * Consultation (Routine) - Closed Specialty Diagnoses / Procedures Referred By Contac t Referred To Contact Hematology and Oncology Diagnoses Malignant neoplasm of right breast in female, estrogen receptor positive, unspecified site of breast Eulalio Hunt MD [facility] [place] [address] [facility] Hem Onc [address] [place] [address] Referral ID Status Reason Start Date Expiration Date V isits Requested Visits Authorized [id number] Closed Continuity of Care 07/13/2020 07/13/2021 1 1 Encounter Details Date Type Department Care Team (Late st Contact Info) Description 07/13/2020 Patient Outreach [place]ematology [place] [address] Denia Zhong RN Social History Tobacco Use Types Packs/Day [...] encounter Miscellaneous Notes * Telephone Encounter - Denia Zhong RN - 07/13/2020 11:20 AM EDT [facility] Nurse Navigator Call for the Comprehensive Breast Program (CBP) ?? Alis Silva??is a 29 y.o.??female with newly diagnosed ER/VA+/HER2+??right??breast invasive carcinoma with??ductal??and??lobular??features and right axillary lymph node metastatic carcinoma??[place] [facility]?? She met with Dr. Hunt in surgical consultation on 07/11 and has a medical oncology consultation on 07/[address] Cornejo. Reason for call: contacted Alis to see if she was aware of contralateral (left) breast bx which is scheduled for 07/18. Plan: She asked why another biopsy and we reviewed this was per breast MRI findings and Dr. Hunt would like to do this biopsy to get more information before any treatment starts. She verbalized understanding and is in agreement with the plan. Requested Maeve from radiology call her to review schedule on 07/18. Alis asked for referrals to grain farmworker, counseling and support groups. Referral to nutrition entered. Requested Ronda Silva contact her regarding support groups and counseling. documented in this encounter Plan of Treatment Upcoming Encounters Date Type Department Care Team (Late st Contact Info) Description 02/13/2025 1:00 PM EDT Office Visit Radiation Oncology at [address] [phone] [facility] [place] [address] Scheduled Referrals Name Type Priority Associated Diagnoses Orde r Schedule Referral to Nutrition Services Outpatient Referral Routine Malignant neoplasm of right breast in female, estrogen receptor positive, unspecified site of breast Ordered: 07/13/2020 documented as of this encounter Visit Diagnoses Diagnosis Malignant neoplasm of right breast in female, estrogen receptor positive, unspecified site of breast documented in this encounter Care Teams Tool Procurement Coordinator Relationship Specialty Start Date End Date Charleen Williamson APRN [address] [place] [address] PCP - General Family Medicine 06/29/20 documented as of this encounter
--- OUTSIDE RECORDS SUMMARY | 2024-05-09 14:06 | XMS_ITS | Encounter Summary ---
[place] [address] Care Team Providers Care Health Evaluator Name Role Phone Charleen Williamson APRN Primary Care Provider [phone] [phone] Encounter Details Date Type Department Care Team (Late st Contact Info) Description 08/19/2020 Telephone Hematology [place] [phone] Randi Schwarz MD Social History Tobacco Use Types Packs/Day Years [...] encounter Miscellaneous Notes * Telephone Encounter - Randi Schwarz MD - 08/19/2020 9:12 PM EDT Reason for call: Loose stools Alis reports 3 episodes of small volume loose stools since this am but notes that the volume is less with each episode. Denied fever, cramping abdominal pain or hematochezia. Advised to increase oral fluid intake (water/clears) and to let us know if symptoms persist/worsen. Randi Schwarz MD Hematology/Oncology Fellow Pager: [phone] documented in this encounter Plan of Treatment Upcoming Encounters Date Type Department Care Team (Late st Contact Info) Description 02/13/2025 1:00 PM EDT Office Visit Radiation Oncology at [address] [address] Eleonora Mensah MD [facility] [address] [place] [address] documented as of this encounter Visit Diagnoses Not on filedocumented in this encounter Care Teams Health Evaluator Relationship Specialty Start Date End Date Charleen Williamson APRN [address] [place] [address] PCP - General Family Medicine 06/29/20 documented as of this encounter
--- OUTSIDE RECORDS SUMMARY | 2024-05-09 14:06 | XMS_ITS | Encounter Summary ---
[place] [address] Care Team Providers Care Assistant Kitchen Manager Name Role Phone Charleen Williamson APRN Primary Care Provider [phone] [phone] Encounter Details Date Type Department Care Team (Late st Contact Info) Description 07/20/2020 Notes Only Hematology [place] [phone] Jose Rahman MD Social History Tobacco Use Types Packs/Day [...] as of this encounter Progress Notes * Jose Rahman MD - 07/20/2020 7:44 AM EDT I have reviewed the patient's record and given personal and/or family history of cancer she should be seen by genetic counselor. This is scheduled for next week. documented in this encounter Plan of Treatment Upcoming Encounters Date Type Department Care Team (Late st Contact Info) Description 02/13/2025 1:00 PM EDT Office Visit Radiation Oncology at [address] [phone] Eleonora Mensah MD [facility] [place] [address] documented as of this encounter Visit Diagnoses Not on filedocumented in this encounter Care Teams Assistant Kitchen Manager Relationship Specialty Start Date End Date Charleen Williamson, [employer] [address] [place] [address] PCP - General Family Medicine 06/29/20 documented as of this encounter
--- OUTSIDE RECORDS SUMMARY | 2024-05-09 14:06 | XMS_ITS | Encounter Summary ---
Author Organization [facility] [place] [address] Care Team Providers Care Lifts And Cranes Inspector Name Role Phone ClayNiharika packerhryn Christopher HAYNES Primary Care Provider [phone] [phone] Encounter Details Date Type Department Care Team (Late st Contact Info) Description 07/20/2020 Orders Only Hematology [place] [address] Tyra Cornejo MD [facility] [place] [address] Social History Tobacco Use Types Packs/Day Years [...] EDT Office Visit Radiation Oncology at [address] [phone] Eleonora Mensah MD [facility] [place] [address] documented as of this encounter Visit Diagnoses Not on filedocumented in this encounter Care Teams Lifts And Cranes Inspector Relationship Specialty Start Date End Date Charleen Williamson APRN [address] [place] [address] PCP - General Family Medicine 06/29/20 documented as of this encounter
--- OUTSIDE RECORDS SUMMARY | 2024-05-09 14:06 | XMS_ITS | Encounter Summary ---
Author Organization [facility] [place] [address] Care Team Providers Care Purchasing Administrator Name Role Phone Charleen Williamson APRN Primary Care Provider [phone] [phone] Encounter Details Date Type Department Care Team (Late st Contact Info) Description 07/20/2020 Orders Only Hematology [place] [phone] Barbara Cain PA Social History Tobacco Use [...] EDT Office Visit Radiation Oncology at [address] [phone] Eleonora Mensah MD [facility] [place] [address] documented as of this encounter Visit Diagnoses Not on filedocumented in this encounter Care Teams Purchasing Administrator Relationship Specialty Start Date End Date Charleen Williamson APRN [address] [place] [address] PCP - General Family Medicine 06/29/20 documented as of this encounter
--- OUTSIDE RECORDS SUMMARY | 2024-05-09 14:06 | XMS_ITS | Encounter Summary ---
Author [facility] [place] [address] Care Team Providers Care Licensed Marine Engineer Name Role Phone Charleen Williamson APRN Primary Care Provider [phone] [phone] Reason for Referral * Diagnostic Test (Routine) - Closed Specialty Diagnoses / Procedures Referred By Contac t Referred To Contact Radiology Diagnoses Abnormal finding on breast imaging Procedures MRI Guided Biopsy Breast Vacuum Assisted Left Mili Burgos MD [facility] [place] [address] [place] [address] Referral ID Status Reason Start Date Expiration Date V isits Requested Visits Authorized [id number] Closed Specialty Service Requested 07/13/2020 01/13/2022 1 1 Reason for Visit * Diagnostic Test (Routine) - Closed Specialty Diagnoses / Procedures Referred By Contac t Referred To Contact Radiology Diagnoses Abnormal finding on breast imaging Procedures MRI Guided Biopsy Breast Vacuum Assisted Left Mili Burgos MD [facility] [place] [address] [place] [address] Referral ID Status Reason Start Date Expiration Date V isits Requested Visits Authorized [id number] Closed Specialty Service Requested 07/13/2020 01/13/2022 1 1 Encounter Details Date Type Department Care Team (Latest Contact Info) Description 07/18/2020 10:10 AM EDT - 07/18/2020 11:45 AM EDT Hospital [place] [address] Mili Burgos MD [facility] [place] [address] Abnormal finding on breast imaging Discharge Disposition: [...] Sig Dispensed Refills Start Date End Date hydrOXYzine (Atarax) 10 mg Tablet TAKE 1 TO 2 TABLETS BY MOUTH EVERY 8 HOURS NEEDED FOR ANXIETY 07/09/2020 propranoloL (Inderal) 10 mg Tablet Take 20 mg by mouth 2 times daily. 07/09/2020 08/17/2020 documented as of this encounter Plan of Treatment Upcoming Encounters Date Type Department Care Team (Late st Contact Info) Description 02/13/2025 1:00 PM EDT Office Visit Radiation Oncology at [address] [phone] Eleonora Mensah MD [facility] [place] [address] documented as of this encounter Procedures Procedure Name Priority Date/Time Associated Diagnosis Comments MRI GUIDED BIOPSY BREAST VACUUM ASSISTED LEFT Routine 07/18/2020 12:00 PM EDT Abnormal finding on breast imaging SURGICAL PATHOLOGY REPORT Routine 07/18/2020 11:40 AM EDT SPECIMEN TO PATHOLOGY Routine 07/18/2020 11:40 AM EDT documented in this encounter Results * MRI Guided Biopsy Breast Vacuum Assisted Left (07/18/2020 12:00 PM EDT) Anatomical Region Laterality Modality Breast Left Magnetic Resonan ce Impressions 07/19/2020 5:01 PM EDT Benign concordant result RECOMMENDATION: Definitive surgical management for contralateral biopsy-proven malignancy. REVIEW PATH CONFERENCE?: Yes I have personally reviewed the image(s) and the resident's interpretation and agree with the findings, Sheridan Mcleod MD at 07/19/2020 5:01 PM Thank you for letting us participate in the care of this patient. ? Electronically signed by: Sheridan Mcleod MD, 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 Left breast lesion #1 seen on MRI, circumscribed enhancing 0.6 cm mass in the LEFT breast, deep central 6:00 radian, 7.5 cm from the nipple. TECHNIQUE: After obtaining informed consent the patient was placed in the 1.5 Anabel magnet using a breast imaging coil with a localizing grid. Multiplanar sequences were obtained pre- and post- intravenous administration of 17cc's Dotarem. EmergenSee localizing software was used to identify and localize the lesion of interest. While using sterile technique, less than 5 cc's of 1% Xylocaine for superficial anesthesia, and less than 10 cc's of 1% Xylocaine with epinephrine for deep anesthesia a skin knick was made and a 9 gauge Suros Eviva needle ??was placed in position. Pre- sampling axial images were obtained and verified satisfactory location of the needle. Multiple samples were obtained using the vacuum-assisted device. A marker was deployed. Subsequently, a post biopsy mammogram was performed in the CC and true lateral projections to verify clip type and location. FINDINGS: The lesion was identified and per protocol the lesion was sampled and a clip was deployed. The CC and true lateral view of the left breast show approximately 3 cm lateral displacement of the M clip. COMPLICATIONS: None. PROCEDURAL ATTESTATION: Fellow: Rachele IMAGING DIFFERENTIAL DIAGNOSIS: Papilloma, fibrocystic change, IDC/ILC PATHOLOGIC DIAGNOSIS: Benign breast tissue with nodular adenosis Mili Hester MD [facility] [place] ORDERABLES * Surgical Pathology Report (07/18/2020 11:40 AM EDT) Final Diagnosis [id number] ? Location: 3Z The signing pathologist has (i) examined the relevant preparation(s) for the specimen(s) and (ii) rendered or confirmed the diagnosis(es). . ?Surgical Pathology DIAGNOSIS Needle biopsies: ?Left breast Diagnosis: ?Benign breast tissue with nodular adenosis Microcalcificat ions: ??N/A Electronically signed by: ??Jeff Salas MD Verified: ??07/19/2020 ?Pathologist Performed at: ??-[facility] Dept. of Pathology, [place], [place] SPECIMEN(S) SUBMITTED A - LEFT BREAST MRI BIOPSY, biopsy (Multiple) CLINICAL INFORMATION Mass 1. Papilloma 2. FCD 3. CA SPECIMEN PROCESSING A - Labeled/Fixativ e: Left breast MRI biopsy, formalin. Quantity/Size: Multiple, 4.0 x 1.3 x 0.8 cm Tissue Description: Aggregate of yellow-white fibrofatty needle core biopsies. Sections/Proces sing: Entirely submitted in 6 cassettes labeled A1-A6. Ischemic Time: 7 minutes ??vamshi 07/19/2020 11:20 AM EDT [facility] BREAST STRUCTURE / Unknown 07/18/2020 11:40 AM EDT 07/18/2020 11:40 AM EDT Sheridan Mcleod MD PATHOLOGY/CYTOLOGY O ROGELIO Performing Organization Address [facility]/[place] [address] * Specimen to Pathology (07/18/2020 11:40 AM EDT) AP Specimen 07/18/2020 11:4 0 AM EDT 07/18/2020 11:40 AM EDT Narrative [facility] - 07/18/2020 11:40 AM EDT Specimen requisition ordered. ??Separate Pathology report to follow Sheridan Mcleod MD PATHOLOGY/CYTOLOGY O ROGELIO Performing Organization Address [facility] Co de Phone Number [facility] [place] [place] [address] documented in this encounter Visit Diagnoses Diagnosis Abnormal finding on breast imaging Other (abnormal) findings on radiological examination of breast documented in this encounter Administered Medications Inactive Administered Medications - up to 3 most recent administrations Medication Order MAR Action Action Date Dose Rate Site gadoterate meglumine (Dotarem) (0.5 mMol/mL) injection solution 0-100 mL 0-100 mL, Intravenous, ONCE PRN, 1 dose, Starting on Thu07/18/20 at 1341, Until Thu07/18/20 at 1352, Per Protocol, Radiology Contrast, Routine Given 07/18/2020 1:52 PM EDT 17 mLs lidocaine (Xylocaine) 1% (10 mg/mL) injection 10 mg 10 mg, Intradermal, ONCE, 1 dose, On Thu07/18/20 at 1200, Routine Given 07/18/2020 12:00 PM EDT 10 mg lidocaine-EPINEPHrine (1% - 1:100,000) injection 20 mL 20 mL, Intradermal, ONCE, 1 dose, On Thu07/18/20 at 1200, Warning Vesicant/Irritant Medication , Routine Given 07/18/2020 12:00 PM EDT 20 mLs documented in this encounter Care Teams Licensed Marine Engineer Relationship Specialty Start Date End Date Charleen Williamson APRN [address] [place] [address] PCP - General Family Medicine 06/29/20 documented as of this encounter
--- OUTSIDE RECORDS SUMMARY | 2024-05-09 14:06 | XMS_ITS | Encounter Summary ---
[place] [address] Care Team Providers Care Wire Brusher Name Role Phone Clay, Charleen White APRN Primary Care Provider +1 [phone] Encounter Details Date Type Department Care Team (Late st Contact Info) Description 07/23/2020 Tele[place] [phone] Avery Castle MD [facility] [place] [address] Social History Tobacco Use Types Packs/Day Years [...] encounter Miscellaneous Notes * Telephone Encounter - Avery Castle MD - 07/23/2020 9:10 PM EDT Received a page at 2042 from Alis Silva. Alis had a Mediport placed this morning with IR. Spoke with Alis's , Daren on the phone. Per Daren, Alis has been having dry heaves for about the last 15 minutes. She checked her blood pressure and it was 110/84 (normally runs about 140/90). She is not having any other symptoms at this time. She denies fevers or chills. Discussed option o f monitoring symptoms at home tonight. But if symptoms should worsen, then [facility], [facility] hospital to their home. They were in agreementwith this plan. documented in this encounter Plan of Treatment Upcoming Encounters Date Type Department Care Team (Late st Contact Info) Description 02/13/2025 1:00 PM EDT Office Visit Radiation Oncology at [address] [phone] Eleonora Mensah MD [facility] [place] [address] documented as of this encounter Visit Diagnoses Not on filedocumented in this encounter Care Teams Wire Brusher Relationship Specialty Start Date End Date Charleen Williamson APRN [address] [place] [address] PCP - General Family Medicine 06/29/20 documented as of this encounter
--- OUTSIDE RECORDS SUMMARY | 2024-05-09 14:06 | XMS_ITS | Encounter Summary ---
Author Organization [facility] Address [facility] [place] [address] Care Team Providers Care Cementer Oil Well Name Role Phone Charleen Williamson APRN Primary Care Provider +1 -[phone] Encounter Details Date Type Department Care Team (Latest Contact Info) Description 07/18/2020 11:46 AM EDT - 07/18/2020 11:59 PM EDT Hospital [place] [address] Mili Burgos MD [facility] DIAGNOSTIC [place] [address] Abnormal finding on breast imaging Discharge Disposition: [...] Sig Dispensed Refills Start Date End Date melatonin 5 mg Tablet Take by mouth nightly. hydrOXYzine (Atarax) 10 mg Tablet TAKE 1 TO 2 TABLETS BY MOUTH EVERY 8 HOURS NEEDED FOR ANXIETY 07/09/2020 lactobacillus rhamnosus, GG, (CULTURELLE) 10 billion cell Capsule Take 1 capsule by mouth daily. 02/15/2024 traZODone (Desyrel) 50 mg Tablet Take 1 tablet by mouth nightly. My take up to three nightly for sleep. 90 tablet 3 07/18/2020 12/20/2020 propranoloL (Inderal) 10 mg Tablet Take 20 mg by mouth 2 times daily. 07/09/2020 08/17/2020 documented as of this encounter Plan of Treatment Upcoming Encounters Date Type Department Care Team (Late st Contact Info) Description 02/13/2025 1:00 PM EDT Office Visit Radiation Oncology at [address] [phone] Eleonora Mensah MD [facility] DR [place] [address] documented as of this encounter Procedures Procedure Name Priority Date/Time Associated Diagnosis Comments MAMMO DIAGNOSTIC WITHOUT CAD LEFT Routine 07/18/2020 12:05 PM EDT Abnormal finding on breast imaging documented in this encounter Results * Mammo Diagnostic Without Cad Left (07/18/2020 12:05 PM EDT) Anatomical Region Laterality Modality Breast Left Mammography Impressions 07/19/2020 5:01 PM EDT Benign concordant result RECOMMENDATION: Definitive surgical management for contralateral biopsy-proven malignancy. REVIEW PATH CONFERENCE?: Yes I have personally reviewed the image(s) and the resident's interpretation and agree with the findings, Sheridan Mcleod MD at 07/19/2020 5:01 PM Thank you for letting us participate in the care of this patient. ? Narrative 07/19/2020 5:01 PM EDT MRI GUIDED [...] and post- intravenous administration of 17cc's Dotarem. Conferensum localizing software was used to identify and [...] M clip. COMPLICATIONS: None. PROCEDURAL ATTESTATION: Fellow: Winking IMAGING DIFFERENTIAL DIAGNOSIS: Papilloma, fibrocystic change, IDC/ILC PATHOLOGIC DIAGNOSIS: Benign breast tissue with nodular adenosis Mili Hester MD IMG MAMM O ORDERABLES documented in this encounter Visit Diagnoses Diagnosis Abnormal finding on breast imaging Other (abnormal) findings on radiological examination of breast documented in this encounter Care Teams [employer] Relationship Specialty Start Date End Date Charleen Williamson, IVY [address] [place] [address] PCP - General Family Medicine 06/29/20 documented as of this encounter
--- OUTSIDE RECORDS SUMMARY | 2024-05-09 14:06 | XMS_ITS | Encounter Summary ---
Author Organization [place] [address] Care Team Providers Care Completions Manager Name Role Phone Charleen Williamson APRN Primary Care Provider [phone] Reason for Referral * Diagnostic Test (Routine) - Closed Specialty Diagnoses / Procedures Referred By Contac t Referred To Contact Radiology Diagnoses Malignant 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, estrogen receptor positive Procedures IR [facility] yTra Block MD [facility] [place] [address] [facility] [place] [address] Referral ID Status Reason Start Date Expiration Date V isits Requested Visits Authorized [id number] Closed Specialty Service Requested 07/18/2020 01/18/2022 1 1 Reason for Visit * Diagnostic Test (Routine) - Closed Specialty Diagnoses / Procedures Referred By Contac t Referred To Contact Radiology Diagnoses Malignant 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, estrogen receptor positive Procedures IR Tyra English MD [facility] [place] [address] [facility] [place] [address] Referral ID Status Reason Start Date Expiration Date V isits Requested Visits Authorized [id number] Closed Specialty Service Requested 07/18/2020 01/18/2022 1 1 Encounter Details Date Type Department Care Team (Latest Contact Info) Description 07/23/2020 7:34 AM EDT - 07/23/2020 11:44 AM EDT Hospital Encounter Radiology at [facility] [place] [address] Tyra Cornejo MD [facility] [address] [place] [address] Malignant neoplasm of central portion of right [...] Sign Reading Time Taken Comments Blood Pressure 135/80 07/23/2020 10:30 AM EDT Pulse 84 07/23/2020 9:50 AM EDT Temperature 37 ??C (98.6 ??F) 07/23/2020 7:57 AM EDT Respiratory Rate 16 07/23/2020 10:30 AM EDT Oxygen Saturation 98% 07/23/2020 10:30 AM EDT Inhaled Oxygen Concentration - - Weight - - Height - - Body Mass Index - - documented in this encounter Discharge Instructions * Discharge Instructions* Lora Shahid RN - 07/23/2020 8:33 AM EDT Images from the original note were not included. [facility] Department of Vascular and Interventional Radiology Discharge Instructions for your Chest Port You have received a ???Power Port?? , which provides access for infusions and blood draws. What makes this a ???Power Port?? is the unique ability to ???power inject?? contrast (intravenous dye) through the port when getting a CT scan, which produces superior images (pictures). Patients who don???t have these special ports need to have an IV started if they need dye injected for their CT scan. Your port is printed with the letters ???CT?? which can be detected by x- ray to identify it as a ???Power Port?? . You will be provided with an ID card stating the hand tile maker and type of port you have. Please carry this with you in a safe place. Bandage: There is a sterile dressing over the port site consisting of small gauze with a clear dressing (Tegaderm or [id number] ). This dressing should be left in place for 48 hours. If the clear dressing becomes loose you should place tape over the edges to secure it in place. Note: If you have steri-strips beneath your dressing, simply allow them to fall off. Do not peel them off. There may be Quintana-barnett (skin glue) also, allow this to flake off. Pain: Apply ice bag to site (s) at 30 minute intervals (30 minutes on and 30 minutes off) for 24 hours?? . May use as needed for pain and/or bruising after 24 hours. Bathing: Do not take a shower until 48 hours after your port is placed; after this time you may shower with the dressing in place, then remove it and pat your skin dry. After 48 hours, we recommend that you cover the area with THE AQUA GUARD PROVIDED for 1 week while showering, facing away from theshower stream. You may use a bandaid to cover the site after the 48 hours are up if there is any drainage. No tub baths, whirlpools or swimming for one week following port placement. Flushing the mediport: If your port has not been used, it must be flushed every 30 days. What to expect when your port is accessed: 1. You may feel tenderness the first few times it is accessed but generally this subsides over time. Ask your healthcare provider to use a local anesthetic on the site if discomfort is a problem for you. You may ask for a prescription for a topical cream (EMLA) from your clinician; you may apply athome prior to your appointments, to help numb the skin over your port. 2. The clinician should be wearing sterile gloves and a mask during the access procedure. Anyone inthe room with you should also have a mask on. 3. The skin over and 2 inches around the port should be cleaned with a disinfectant 4. Tell the clinician if you would like the skin numbed (lidocaine) before the access needle is placed. 5. Unless you are unable to take heparin (blood thinner), the port should be injected with a heparin solution before deaccess (at end of each treatment or blood draw). When to call your healthcare provider: ??? If you notice bleeding from the puncture site in your neck, or from the port incision on your chest, you should apply firm pressure over the site for 10-15 minutes, keeping the site covered. Callif you are still bleeding after 10-15 minutes. ??? If you develop pain, redness, drainage or swelling at or around the port site, or the puncture site in the neck ??? If you develop fever (elevation of more than 2 degrees or greater than 101F) and/or shaking chills When to call the Interventional Radiology Department: Please call with any questions or concerns. If it is during regular office hours, please call [phone]. If it is after regular office hours, or on weekends or holidays, please call [phone] and ask to speak to the Loss Claim Clerk online services manager for Interventional Radiology. XXX You have received medication during your procedure to help lessen anxiety and keep you comfortable. These medications affect judgement and reaction time. We [...] drainage occurs, please contact your M. D. Revised 02/10/19 documented in this encounter Medications at Time [...] 07/09/2020 08/17/2020 documented as of this encounter Progress Notes * kAilah Davis RN - 07/23/2020 11:44 AM EDT Interventional and Vascular Radiology Post-Procedure Call Name: Alis Silva Age: 29 y.o. Sex: Female Date of : 1990 (home) Telephone Information: PCP Charleen Williamson, FEED MANAGER [phone] Date/Time of call: July 24, 2020/9:09 AM Procedure: Mediport Placement Procedural Provider: Dr Urbina Contact with patient or if not, with whom? yes Message left on answering machine? [X] N/A Are you having pain related to your procedure now? [X] Yes Are you having any swelling or bleeding from the site? No Are there any improvement in your symptoms? No Are you having any other problems related to your procedure? no Did you understand the discharge instructions given and do you have any questions? Yes/no Do you have any comments about your Nurse or Provider or the care you received? [X] Yes Comments (if applicable):everyone was excellent. * Lora Shahid RN - 07/23/2020 8:44 AM EDT ANGIO NURSING DATABASE Name: ALIS SILVA Date of : 1990 AGE: 29 y.o. Address: [address] [place] [phone] (home) Mobile: Telephone Information: Referring Provider: Tyra Cornejo REASON FOR VISIT: Mediport Placement Order Questions Answers Where will study be performed? [facility] Radiology [120] Prefered insertion location: Left side Is the patient on anticoagulant / anitplatelet therapy ? No Reason for exam and clinical history: new dx right breast cancer Is the patient ? No Does patient require sedation? None No Known Allergies Pertinent PMH: Patient Active Problem List Diagnosis Code ??? Malignant neoplasm of right breast in female, estrogen receptor positive C50.911, Z17.0 Date/Procedure Meds Given/Comments 07/23/20 Mediport placement Ancef 2 gm IV, Fentanyl 250 mcg IV, Versed 4 mg IV 0847 to procedure room 2 via stretcher. Onto table supine. All monitors, O2, safety strap in place.Meds per protocol. Laboratory Results: Lab Results Component Value Date CREATININE 0.74 07/04/2020 Lab Results Component Value Date K 3.9 07/04/2020 Lab Results Component Value Date PLATELET 273 07/04/2020 documented in this encounter H&P Notes * Jese Gonzales DO - 07/23/2020 8:17 AM EDT INTERVENTIONAL RADIOLOGY FOCUSED H&P: Procedure: Planned procedure: IR Mediport Placement The patient's history and physical exam have been reviewed and completed. There has been no interval change from that of the pre-operative history and physical exam done within the last 30 days. Physical Exam: Cardiovascular: Regular, Normal Pulmonary: Breath sounds clear to auscultation The planned procedure (and sedation plan if appropriate) , its benefits and risks, and alternativeswere discussed with the patient. The patient consented to the procedure. PRE-SEDATION ASSESSMENT: Sedation Plan: moderate (conscious sedation) ASA: 1: Normally healthy patient Mallampati: III: only the base of the uvula can be seen Confirm NPO status: Yes History of anesthetic complications: No Current medications reviewed: Yes Allergies reviewed: Yes Source Note - Avery Castle MD - 07/19/2020 11:25 AM EDT Images from the original note were not included. INTERVENTIONAL RADIOLOGY FOCUSED H&P and PRE-PROCEDURE NOTE: PCP: Charleen Williamson APRN Referring Provider: Tyra Cornejo Planned Procedure: Planned procedure: IR Mediport Placement Procedure Indication: Newly diagnosed right breast cancer, need for fpc durable venous accessfor chemotherapy. Procedure request received through Interventional Radiology eDH order queue. Order Questions Answers Where will study be performed? [facility] Radiology [120] Prefered insertion location: Left side Is the patient on anticoagulant / anitplatelet therapy ? No Reason for exam and clinical history: new dx right breast cancer Is the patient ? No Does patient require sedation? None Presenting Diagnosis/ Complaint: Per chart review, Alis Silva is a 29 y.o. 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 Her treatment team is planning to start chemotherapy and a planning modified radical mastectomy. IR has been consulted to place a Mediport for fpc durable venous access for chemotherapy. Past Medical/Surgical History: Patient Active Problem List Diagnosis Code ??? Malignant neoplasm of right breast in female, estrogen receptor positive C50.911, Z17.0 No past medical history on file. Past Surgical History: Procedure Laterality Date ??? MAMMO US BIOPSY LYMPH NODE RIGHT Right 06/29/2020 Mammo US Biopsy Lymph Node Right 06/29/2020 Danni Osuna MD [facility] RAD MAMMOGRAPHY ??? MAMMO US BIOPSY RIGHT Right 06/29/2020 Mammo Us Biopsy Right 06/29/2020 Danni Osuna MD [facility] RAD MAMMOGRAPHY Medications: Current Outpatient Medications on File Prior to Encounter Medication Sig Dispense Refill ??? lactobacillus rhamnosus, GG, (CULTURELLE) 10 billion cell Capsule Take 1 capsule by mouth daily. ??? melatonin 5 mg Tablet Take by mouth. ??? traZODone (Desyrel) 50 mg Tablet Take 1 tablet by mouth nightly. My take up to three nightly for sleep. 90 tablet 3 ??? hydrOXYzine (Atarax) 10 mg Tablet TAKE 1 TO 2 TABLETS BY MOUTH EVERY 8 HOURS NEEDED FOR ANXIETY ??? propranoloL (Inderal) 10 mg Tablet TAKE 1 TABLET BY MOUTH TWICE DAILY Current Facility-Administered Medications on File Prior to Encounter Medication Dose Route Frequency Provider Last Rate Last Admin ??? [COMPLETED] lidocaine (Xylocaine) 1% (10 mg/mL) injection 10 mg 10 mg Intradermal Once Sheridan Mcleod MD 10 mg at 07/18/20 1200 ??? [COMPLETED] lidocaine-EPINEPHrine (1% - 1:100,000) injection 20 mL 20 mL Intradermal Once Sheridan Mcleod MD 20 mL at 07/18/20 1200 ??? [COMPLETED] gadoterate meglumine (Dotarem) (0.5 mMol/mL) injection solution 0-100 mL 0-100 mL Intravenous Once PRN Cornelius Hernandez DO 17 mL at 07/18/20 1352 Allergies: Patient has no known allergies. Social History and Habits: Social History Socioeconomic History ??? Marital status: Spouse name: Not on file ??? Number of children: Not on file ??? Years of education: Not on file ??? Highest education level: Not on file Occupational History ??? Not on file Tobacco Use ??? Smoking status: Never Smoker ??? Smokeless tobacco: Never Used Substance and Sexual Activity ??? Alcohol use: Not on file ??? Drug use: Not on file ??? Sexual activity: Not on file Other Topics Concern ??? Not on file Social History Narrative ??? Not on file Social Determinants of Health Financial Resource Strain: High Risk ??? Difficulty of Paying Living Expenses: Hard Food Insecurity: ??? Worried About Running Out of Food in the Last Year: ??? Ran Out of Food in the Last Year: Transportation Needs: ??? Lack of Transportation (Medical): ??? Lack of Transportation (Non-Medical): Physical Activity: ??? Days of Exercise per Week: ??? Minutes of Exercise per Session: Stress: ??? Feeling of Stress : Social Connections: ??? Frequency of Communication with Friends and Family: ??? Frequency of Social Gatherings with Friends and Family: ??? Attends Protestant Services: ??? Active Member of Clubs or Organizations: ??? Attends Club or Organization Meetings: ??? Marital Status: Intimate Partner Violence: ??? Fear of Current or Ex-Partner: ??? Emotionally Abused: ??? Physically Abused: ??? Sexually Abused: Significant Family History: Family History Problem Relation Age of Onset ??? Breast Cancer Paternal Grandmother 80 's ??? Ovarian Cancer Paternal Aunt 50 's (around 2010) ??? 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 Her treatment team is planning to start chemotherapy and a planning modified radical mastectomy. IR has been consulted to place a Mediport for fpc durable venous access for chemotherapy. Plan Planned procedure: IR Mediport Placement Labs to be performed day of procedure: No labs Sedation: Moderate (Conscious sedation) Prophylactic antibiotic : Ancef Contrast: No contrast Additional medications for procedure: Lidocaine, Other (see comments)(Lidocaine with epinephrine) Medications to discontinue (and days held): None Planned access site: Left IJ Position: Supine Cytopathology presence needed: No Consent: Pending 07/19/2020 * Avery Castle MD - 07/19/2020 11:25 AM EDT Images from the original note were not included. INTERVENTIONAL RADIOLOGY FOCUSED H&P and PRE-PROCEDURE NOTE: PCP: Charleen Williamson APRN Referring Provider: Tyra Cornejo Planned Procedure: Planned procedure: IR Mediport Placement Procedure Indication: Newly diagnosed right breast cancer, need for fpc durable venous accessfor chemotherapy. Procedure request received through Interventional Radiology eDH order queue. Order Questions Answers Where will study be performed? [facility] Radiology [120] Prefered insertion location: Left side Is the patient on anticoagulant / anitplatelet therapy ? No Reason for exam and clinical history: new dx right breast cancer Is the patient ? No Does patient require sedation? None Presenting Diagnosis/ Complaint: Per chart review, Alis Silva is a 29 y.o. 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 Her treatment team is planning to start chemotherapy and a planning modified radical mastectomy. 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 Past Medical/Surgical History: Patient Active Problem List Diagnosis Code ??? Malignant neoplasm of right breast in female, estrogen receptor positive C50.911, Z17.0 No past medical history on file. Past Surgical History: Procedure Laterality Date ??? MAMMO US BIOPSY LYMPH NODE RIGHT Right 06/29/2020 Mammo US Biopsy Lymph Node Right 06/29/2020 Danni Osuna MD [facility] RAD MAMMOGRAPHY ??? MAMMO US BIOPSY RIGHT Right 06/29/2020 Mammo Us Biopsy Right 06/29/2020 Danni Osuna MD [facility] RAD MAMMOGRAPHY Medications: Current Outpatient Medications on File Prior to Encounter Medication Sig Dispense Refill ??? lactobacillus rhamnosus, GG, (CULTURELLE) 10 billion cell Capsule Take 1 capsule by mouth daily. ??? melatonin 5 mg Tablet Take by mouth. ??? traZODone (Desyrel) 50 mg Tablet Take 1 tablet by mouth nightly. My take up to three nightly for sleep. 90 tablet 3 ??? hydrOXYzine (Atarax) 10 mg Tablet TAKE 1 TO 2 TABLETS BY MOUTH EVERY 8 HOURS NEEDED FOR ANXIETY ??? propranoloL (Inderal) 10 mg Tablet TAKE 1 TABLET BY MOUTH TWICE DAILY Current Facility-Administered Medications on File Prior to Encounter Medication Dose Route Frequency Provider Last Rate Last Admin ??? [COMPLETED] lidocaine (Xylocaine) 1% (10 mg/mL) injection 10 mg 10 mg Intradermal Once Sheridan Mcleod MD 10 mg at 07/18/20 1200 ??? [COMPLETED] lidocaine-EPINEPHrine (1% - 1:100,000) injection 20 mL 20 mL Intradermal Once Sheridan Mcleod MD 20 mL at 07/18/20 1200 ??? [COMPLETED] gadoterate meglumine (Dotarem) (0.5 mMol/mL) injection solution 0-100 mL 0-100 mL Intravenous Once PRN Cornelius Hernandez DO 17 mL at 07/18/20 1352 Allergies: Patient has no known allergies. Social History and Habits: Social History Socioeconomic History ??? Marital status: Spouse name: Not on file ??? Number of children: Not on file ??? Years of education: Not on file ??? Highest education level: Not on file Occupational History ??? Not on file Tobacco Use ??? Smoking status: Never Smoker ??? Smokeless tobacco: Never Used Substance and Sexual Activity ??? Alcohol use: Not on file ??? Drug use: Not on file ??? Sexual activity: Not on file Other Topics Concern ??? Not on file Social History Narrative ??? Not on file Social Determinants of Health Financial Resource Strain: High Risk ??? Difficulty of Paying Living Expenses: Hard Food Insecurity: ??? Worried About Running Out of Food in the Last Year: ??? Ran Out of Food in the Last Year: Transportation Needs: ??? Lack of Transportation (Medical): ??? Lack of Transportation (Non-Medical): Physical Activity: ??? Days of Exercise per Week: ??? Minutes of Exercise per Session: Stress: ??? Feeling of Stress : Social Connections: ??? Frequency of Communication with Friends and Family: ??? Frequency of Social Gatherings with Friends and Family: ??? Attends Protestant Services: ??? Active Member of Clubs or Organizations: ??? Attends Club or Organization Meetings: ??? Marital Status: Intimate Partner Violence: ??? Fear of Current or Ex-Partner: ??? Emotionally Abused: ??? Physically Abused: ??? Sexually Abused: Significant Family History: Family History Problem Relation Age of Onset ??? Breast Cancer Paternal Grandmother 80 's ??? Ovarian Cancer Paternal Aunt 50 's (around 2010) ??? 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 Her treatment team is planning to start chemotherapy and a planning modified radical mastectomy. 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 Plan Planned procedure: IR Mediport Placement Labs to be performed day of procedure: No labs Sedation: Moderate (Conscious sedation) Prophylactic antibiotic : Ancef Contrast: No contrast Additional medications for procedure: Lidocaine, Other (see comments)(Lidocaine with epinephrine) Medications to discontinue (and days held): None Planned access site: Left IJ Position: Supine Cytopathology presence needed: No Consent: Pending 07/19/2020 documented in this encounter Procedure Notes * Ernesto Urbina MD - 07/23/2020 9:52 AM EDT IR PROCEDURE NOTE Procedure: Port placement. Indication for Procedure: Per Alis Edmonds is a 29 y.o. 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 Her treatment team is planning to start chemotherapy and a planning modified radical mastectomy. IR has been consulted to place a Mediport for fpc durable venous access for chemotherapy. Procedure events and findings: After obtaining informed consent patient was positioned supine on procedure table. Left neck base and upper chest prepped and draped with maximum sterile barrier technique used throughout the procedure. Due to the painful nature of the procedure, patient received split doses of intravenous fentanyl and versed from the IR nurse while pulse, pressure, and oxygen saturation were continuously monitored. Prophylactic antibiotic was administered. Local anesthesia provided with 1% lidocaine. Left IJ accessed with micropuncture technique under U/S guidance and a 4Fr sheath placed. After additional local anesthetic with 1% lidocaine and 1% lidocaine with epinephrine, a transverse skin incision was made and a port pocket created with blunt dissection in the upper chest. Single lumen CT injection compatible port was connected to the port catheter. The port catheter (8Fr) was tunneled from the port pocket to the neck entry site and the port positioned in the port pocket. The guide wire was used to measure the amount of catheter to be placed. The 4Fr sheath was exchanged for a peel- away sheath and the port catheter placed via the peel-away with catheter tip positioned in RA under fluoroscopic guidance. Port was accessed and aspirated and flushed readily. The portwas then loaded with heparin solution. The neck incision was closed with tissue adhesive. The pocket incision was closed with interrupted deep 2-0 resorbable suture, superficial 4-0 resorbable suture and tissue adhesive. Medications: Fentanyl 250 mcg IV, Versed 4mg IV, 1% Lidocaine <10ccs subcutaneous, Ancef 2.0 grams IV. Est Blood Loss: <5cc. Complications: No immediate. Impression: 1. Patent left IJ by ultrasound. 2. Placement of single lumen CT injection compatible port via left IJ, catheter tip in right atrium, port ready for use. Resident/Fellow: None. Attending: Dr. Carlitos Darnell performed this procedure. I was present during the intraservice time as documented by the IR Nurse. documented in this encounter Plan of Treatment Upcoming Encounters Date Type Department Care Team (Late st Contact Info) Description 02/13/2025 1:00 PM EDT Office Visit Radiation Oncology at [address] [phone] Eleonora Mensah MD [facility] [place] [address] documented as of this encounter Procedures Procedure Name Priority Date/Time Associated Diagnosis Comments IR MEDIPORT PLACEMENT Routine 07/23/2020 10:05 AM EDT Malignant 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, estrogen receptor positive documented in this encounter Results * IR Mediport Placement [...] been consulted to place a Mediport for terminal block assembler durable venous access for chemotherapy.? Procedure events [...] Nurse.? Tyra Cornejo MD IMG IR ORDERABLES documented [...] 5% 100 mL infusion 2 g, Intravenous, ONCE, 1 dose, On Thu07/23/20 at 0815, Administer over 30 Minutes, Redose every 3 hours if CrCl is greater than 20. Redose every 8 hours if CrCl is less than 20., Angio/IR (Day of Procedure), Indication for (Active or Suspected): Prophylaxis Given 07/23/2020 9:05 AM EDT 2 g 200 mL/hr fentaNYL (pf) (50 mcg/mL) multi-dose injection 25-50 mcg 25-50 mcg, Intravenous, EVERY 3 MIN PRN, Starting on Thu07/23/20 at 0757, Until Thu07/23/20 at 1049, Pain, per unit protocol, - Start dose 50 mcg (reduce dose to 25 mcg if history of sedation sensitivity). - Titration dose 25-50 mcg IV, (based on patient response) every 3 minutes PRN, to maintain procedural pain less than 2 per pain Scale. Maximum dose: 50 mcg/dose, 250 mcg/hour For use in Interventional Radiology (IR) only for procedural sedation with direct provider supervision and verbal order., Angio/IR (Intra-Procedure), Routine Given 07/23/2020 9:33 AM EDT 50 mcg Given 07/23/2020 9:25 AM EDT 50 mcg Given 07/23/2020 9:18 AM EDT 50 mcg lidocaine (Xylocaine) 1% (10 mg/mL) injection 10 mg 10 mg, Subcutaneous, ONCE, 1 dose, On Thu07/23/20 at 0815, For use in Interventional Radiology (IR) only for procedure with direct provider supervision and verbal order., Angio/IR (Intra-Procedure), Routine Given 07/23/2020 9:18 AM EDT 10 mg lidocaine-EPINEPHrine (1% - 1:100,000) injection 50 mL 50 mL, Intradermal, ONCE, 1 dose, On Thu07/23/20 at 0815, For use in Interventional Radiology (IR) only for Radiofrequency Ablation of Saphenous Vein procedure with direct provider supervision and verbal order., Angio/IR (Intra-Procedure), Routine Given 07/23/2020 9:25 AM E DT 50 mLs midazolam (pf) (Versed) (1 mg/mL) multi-dose injection 0.5-1 mg 0.5-1 mg, Intravenous, EVERY 3 MIN PRN, Starting on Thu07/23/20 at 0757, Until Thu07/23/20 at 1049, Sleep, - Start dose; 1 mg (Reduce dose to 0.5 mg if history of sedation sensitivity). - Titration dose: 0.5 mg - 1 mg (based on patient response) every 3 minutes PRN to obtain RASS score of -3. Maximum dose: 1 mg per dose, 5 mg/hour. For use in Interventional Radiology (IR) only for procedural sedation with direct provider supervision and verbal order., Angio/IR (Intra-Procedure), Routine Given 07/23/2020 9:33 AM EDT 0.5 mg Given 07/23/2020 9:25 AM EDT 1 mg Given 07/23/2020 9:18 AM EDT 0.5 mg sodium chloride 0.9 % (flush) flush 5 mL 5 mL, Intravenous, 2 TIMES DAILY, First dose on Alannah 07/19/20 at 1200, Until Discontinued, Routine Given 07/23/2020 9:00 AM EDT 5 mLs documented in this encounter Care Teams Completions Manager Relationship Specialty Start Date End Date Charleen Williamson APRN [address] [place] [address] PCP - General Family Medicine 06/29/20 documented as of this encounter
--- OUTSIDE RECORDS SUMMARY | 2024-05-09 14:06 | XMS_ITS | Encounter Summary ---
Author Organization [facility] [place] [address] Care Team Providers Care Advertising Account Manager Name Role Phone Charleen Williamson APRN Primary Care Provider [phone] Reason for Referral * Diagnostic Test (Routine) - Closed Specialty Diagnoses / Procedures Referred By Contac t Referred To Contact Radiology Diagnoses Malignant neoplasm of right breast in female, estrogen receptor positive, unspecified site of breast Procedures CT Chest Abdomen Pelvis w Contrast (Generic) Gorge Soto MD [facility] [address] [place] [address] [facility] [place] [address] Referral ID Status Reason Start Date Expiration Date V isits Requested Visits Authorized [id number] Closed Specialty Service Requested 07/03/2020 01/03/2022 1 1 Reason for Visit * Diagnostic Test (Routine) - Closed Specialty Diagnoses / Procedures Referred By Contac t Referred To Contact Radiology Diagnoses Malignant neoplasm of right breast in female, estrogen receptor positive, unspecified site of breast Procedures CT Chest Abdomen Pelvis w Contrast (Generic) Gorge Soto MD [facility] [address] [place] [address] [facility] [place] [address] Referral ID Status Reason Start Date Expiration Date V isits Requested Visits Authorized [id number] Closed Specialty Service Requested 07/03/2020 01/03/2022 1 1 Encounter Details Date Type Department Care Team (Latest Contact Info) Description 07/11/2020 3:03 PM EDT - 07/11/2020 5:00 PM EDT Hospital [place] [address] Gorge Soto MD [facility] [place] [address] Malignant neoplasm of right breast in female, [...] EDT Office Visit Radiation Oncology at [address] [address] Eleonora Mensah MD [facility] [place] [address] documented as of this encounter Procedures Procedure Name Priority Date/Time Associated Diagnosis Comments CT CHEST ABDOMEN PELVIS W CONTRAST (GENERIC) Routine 07/11/2020 5:33 PM EDT Malignant neoplasm of right breast in female, estrogen receptor positive, unspecified site of breast documented in this encounter Results * CT Chest Abdomen Pelvis w Contrast (Generic) (07/11/2020 5:33 PM EDT) Anatomical Region Laterality Modality Abdomen, Pelvis Computed Tomogra phy Impressions 07/12/2020 9:17 AM EDT 1. ??Right breast mass. Morphologically suspicious subcentimeter right axillary lymph node. 2. ??No metastatic disease in the abdomen or pelvis. I have personally reviewed the image(s) and the resident's interpretation and agree with the findings, Bipin Contreras MD at 07/12/2020 9:17 AM Thank you for letting us participate in the care of this patient. For questions regarding this report, please contact the number below. ? Narrative 07/12/2020 9:17 AM EDT EXAMINATION: CT CHEST ABDOMEN PELVIS W CONTRAST (GENERIC) CLINICAL HISTORY: Breast cancer, staging LOCALLY ADVANCED BREAST CANCER TECHNIQUE: Helical CT of the chest, abdomen, and pelvis was performed following the intravenous administration of 101.0 ml of OMNIPAQUE 350.00 mg/ml. Oral contrast was administered. COMPARISON: None FINDINGS: Chest: Lungs and large airways: Normal. Pleura: No effusion. Heart/vasculature: Normal. Lymph nodes: Biopsy clip in the right axilla. Lateral to the biopsy clip is a subcentimeter lymph node with loss of the fatty hilum and adjacent fat stranding (series 3 image 37), question biopsy site which was positive for mary metastasis. No other suspicious morphology or pathologically enlarged thoracic nodes identified. Mediastinum and mónica: Normal. Chest wall/breasts: 3.6 x 1.7 cm right retroareolar mass containing a biopsy clip consistent with known invasive carcinoma. Asymmetric right breast skin thickening. Unremarkable appearing glandular tissue within the left breast. Abdomen/pelvis: Liver: Normal size and attenuation without lesions. Bile ducts: Nondilated. Gallbladder: No calcified gallstones. Normal caliber wall. Pancreas: Normal attenuation without ductal dilatation. Spleen: Normal. Adrenals: Normal. Kidneys: Normal. Urinary Bladder: Normal. Vasculature: No aneurysm. Lymph Nodes: ??No enlarged lymph nodes. Bowel: Enteric contrast is present within the stomach, small and large colon to the level of the hepatic flexure. No focal gastric wall thickening. No dilated loops of small or large bowel or bowel wall thickening. The appendix is normal. Scattered colonic diverticula without evidence of acute diverticulitis. Peritoneum and mesentery: No ascites, free air, or loculated fluid collection. No mesenteric inflammation. Abdominal wall: Normal. Reproductive organs: Normal. Osseous structures: No suspicious lytic or sclerotic lesions. Procedure Note Bipin Contreras MD - 07/12/2020 EXAMINATION: CT CHEST ABDOMEN PELVIS W CONTRAST (GENERIC) CLINICAL HISTORY: Breast cancer, staging LOCALLY ADVANCED BREAST CANCER TECHNIQUE: Helical CT of the chest, abdomen, and pelvis was performedfollowing the intravenous administration of 101.0 ml of OMNIPAQUE 350.00 mg/ml.Oral contrast was administered. COMPARISON: None FINDINGS: Chest: Lungs and large airways: Normal. Pleura: No effusion. Heart/vasculature: Normal. Lymph nodes: Biopsy clip in the right axilla. Lateral to the biopsy clipis a subcentimeter lymph node with loss of the fatty hilum and adjacent fatstranding (series 3 image 37), question biopsy site which was positive for mary metastasis. No other suspicious morphology or pathologically enlargedthoracic nodes identified. Mediastinum and mónica: Normal. Chest wall/breasts: 3.6 x 1.7 cm right retroareolar mass containing abiopsy clip consistent with known invasive carcinoma. Asymmetric right breastskin thickening. Unremarkable appearing glandular tissue within the leftbreast. Abdomen/pelvis: Liver: Normal size and attenuation without lesions. Bile ducts: Nondilated. Gallbladder: No calcified gallstones. Normal caliber wall. Pancreas: Normal attenuation without ductal dilatation. Spleen: Normal. Adrenals: Normal. Kidneys: Normal. Urinary Bladder: Normal. Vasculature: No aneurysm. Lymph Nodes: No enlarged lymph nodes. Bowel: Enteric contrast is present within the stomach, small and largecolon to the level of the hepatic flexure. No focal gastric wall thickening. Nodilated loops of small or large bowel or bowel wall thickening. The appendix isnormal. Scattered colonic diverticula without evidence of acute diverticulitis. Peritoneum and mesentery: No ascites, free air, or loculated fluidcollection. No mesenteric inflammation. Abdominal wall: Normal. Reproductive organs: Normal. Osseous structures: No suspicious lytic or sclerotic lesions. IMPRESSION 1. Right breast mass. Morphologically suspicious subcentimeter rightaxillary lymph node. 2. No metastatic disease in the abdomen or pelvis. I have personally reviewed the image(s) and the resident's interpretationand agree with the findings, Bipin Contreras MD at 07/12/2020 9:17 AM Thank you for letting us participate in the care of this patient. Forquestions regarding this report, please contact the number below. Gorge Soto MD IMG CT ORDERABLES documented in this encounter Visit Diagnoses Diagnosis Malignant neoplasm of right breast in female, estrogen receptor positive, unspecified site of breast documented in this encounter Administered Medications Inactive Administered Medications - up to 3 most recent administrations Medication Order MAR Action Action Date Dose Rate Site iohexoL (Omnipaque) (350 mg/mL) injection solution 0-200 mL 0-200 mL, Intravenous, ONCE PRN, 1 dose, Starting on Thu07/11/20 at 1733, Until Thu07/11/20 at 1734, Per Protocol, Warning Vesicant/Irritant Medication , Radiology Contrast, Routine Given 07/11/2020 5:34 PM EDT 101 mLs iohexoL (Omnipaque) (350 mg/mL) injection solution 0-50 mL 0-50 mL, Oral, ONCE PRN, 1 dose, Starting on Thu07/11/20 at 1733, Until Thu07/11/20 at 1734, Per Protocol, Warning Vesicant/Irritant Medication , Radiology Contrast, Routine Given 07/11/2020 5:34 PM EDT 50 mLs documented in this encounter Care Teams Advertising Account Manager Relationship Specialty Start Date End Date Charlene Williamson, IVY [address] [place] [address] PCP - General Family Medicine 06/29/20 documented as of this encounter
--- OUTSIDE RECORDS SUMMARY | 2024-05-09 14:06 | XMS_ITS | Encounter Summary ---
Author Organization [facility] [place] [address] Care Team Providers Care Phosphorus Processing Supervisor Name Role Phone Charleen Williamson APRN Primary Care Provider [phone] Encounter Details Date Type Department Care Team (Late st Contact Info) Description 07/11/2020 Notes [place] [phone] Ronda Silva MSW Social History Tobacco Use [...] Progress Notes * Ronda Silva MSW - 07/11/2020 11:59 PM EDT OFFICE OF CARE MANAGEMENT/CONTINUING VISCOSITY INSPECTOR Reason for referral: Alis Silva is a 29 year old, female who was seen in general surgery clinic for a surgical consult as she was diagnosed with ER/OK+, Her2-, right breast, IDC. 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 She has a medical oncology consult next week with Dr. Cornejo. [facility] met with pt to complete a psychosocial assessment and to explain myrole in the breast program. Pt was encouraged to contact me if she has any questions or concerns. Living arrangements/social supports: Pt lives with her , Elmer, in [place], [place]. She has support from her family and her who accompanied her to today's visit. 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 Presently, she is not employed and her is disabled and receives SSDI. Pt has medical coverage through [place] [employer] medicaid. Finances are a concern for pt and her . They had to borrow money for gas to come to [facility]. Pt and her get food stamps and use a food pantry to supplement their groceries. I will mail pt gas cards and a [employer] gift certificate. Pt was given information about financial assistance programs which assist cancer pts with household expenses and transportation. I will apply on pt's behalf to [facility] for transportation assistance. Tobacco/drug/alcohol history: This information will be obtained at her next visit. Advance Directives: Advance directives were not discussed at this visit. Adjustment to illness/Mental Health Concerns: Pt indicated her distress level was a 9 prior to meeting with Dr. Hunt. Dr. Hunt informed pt she would need neoadjuvant therapy and a mastectomy because she has IBC. She was upset to learn her breast would need to be removed. Focus of today's meeting was on financial resources. Pt has a history of depression and anxiety and her PCP is prescribing ananti-depressant. I gave pt information about the on-line support and services available to her in the cancer center. Pt was told that there are mental health professionals in the cancer center who provide counseling and medication management of depression and anxiety. Plan: [facility]CM will continue to follow pt to assess and assist with their psychosocial needs. MILAGROS [facility]/[place] [address] Pager #[phone] documented in this encounter Plan of Treatment Upcoming Encounters Date Type Department Care Team (Late st Contact Info) Description 02/13/2025 1:00 PM EDT Office Visit Radiation Oncology at [address] [address] [facility] [place] [address] documented as of this encounter Visit Diagnoses Not on filedocumented in this encounter Care Teams Phosphorus Processing Supervisor Relationship Specialty Start Date End Date Charleen Williamson APRN [address] [place] [address] PCP - General Family Medicine 06/29/20 documented as of this encounter
--- OUTSIDE RECORDS SUMMARY | 2024-05-09 14:06 | XMS_ITS | Encounter Summary ---
[place] [address] Care Team Providers Care International Marketing Coordinator Name Role Phone Charleen Williamson APRN Primary Care Provider [phone] Encounter Details Date Type Department Care Team (Late st Contact Info) Description 07/26/2020 Orders Only [place] [phone] Barbara Cain PA Social History Tobacco Use [...] as of this encounter Progress Notes * Barbara Cain PA - 07/26/2020 3:46 PM EDT Phone call with Dr. Jonatan Stover from [facility] Reproductive Medicine: Planning for ovarian stimulation on 08/01, will be ready for oocyte retrieval in 10-12 days (around 08/11-08/13). He also recommends ovarian suppression during chemotherapy to preserve ovarian function, OK to start this any time after the retrieval. They are helping her with as much financial services officer as possible. [employer] application completed by Dr. Cornejo today. They will be in touch with our office as she moves through this process. Call placed to patient to review plan. Feeling very anxious about getting going with chemo but still wants to pursue embryo preservation. She has not noticed any changes to the breast. She started sertraline yesterday, and her PCP set her up with a counseling appt on Thursday. Wondering if we could start chemo sooner than the last week in July. Per Dr. Cornejo - OK to start chemo <7 days after zoladex injection. Plan: - Cancel 08/10 chemo start date - RTC for zoladex injection after retrieval, early in week of 08/13 - Chemo start date or Thu same week - 08/16 or 08/17 [facility] Medical Oncology - Breast & GI Cancers [facility] Pager - [phone] documented in this encounter Plan of Treatment Upcoming Encounters Date Type Department Care Team (Late st Contact Info) Description 02/13/2025 1:00 PM EDT Office Visit Radiation Oncology at [address] [address] Eleonora Mensah MD [facility] [place] [address] documented as of this encounter Visit Diagnoses Not on filedocumented in this encounter Care Teams International Marketing Coordinator Relationship Specialty Start Date End Date Charleen Williamson APRN [address] [place] [address] PCP - General Family Medicine 06/29/20 documented as of this encounter
--- OUTSIDE RECORDS SUMMARY | 2024-05-09 14:06 | XMS_ITS | Encounter Summary ---
Author Organization [facility] [place] [address] Care Team Providers Care Assistant Drafter Name Role Phone Charleen Williamson APRN Primary Care Provider [phone] [phone] Encounter Details Date Type Department Care Team (Late st Contact Info) Description 07/11/2020 Patient Outreach Hematology [place] [address] Denia Zhong, RN Social History Tobacco Use Types Packs/Day [...] EDT Office Visit Radiation Oncology at [address] [phone] Eleonora Mensah MD [facility] [place] [address] documented as of this encounter Visit Diagnoses Not on filedocumented in this encounter Care Teams Assistant Drafter Relationship Specialty Start Date End Date Charleen Williamson APRN [address] [place] [address] PCP - General Family Medicine 06/29/20 documented as of this encounter
--- OUTSIDE RECORDS SUMMARY | 2024-05-09 14:06 | XMS_ITS | Encounter Summary ---
Author Organization [facility] [place] [address] Care Team Providers Care Senior Asic Design Engineer Name Role Phone Charleen Williamson APRN Primary Care Provider [phone] Reason for Visit * Consultation (Routine) - Closed Specialty Diagnoses / Procedures Referred By Contac t Referred To Contact Hematology and Oncology Diagnoses Malignant neoplasm of right breast in female, estrogen receptor positive, unspecified site of breast Eulalio Hunt MD [facility] [place] [address] [facility] [address] [place] [address] Referral ID Status Reason Start Date Expiration Date V isits Requested Visits Authorized [id number] Closed Continuity of Care 07/13/2020 07/13/2021 1 1 Encounter Details Date Type Department Care Team (Late st Contact Info) Description 07/19/2020 9:00 AM EDT Telephone Hematology [place] [address] Shelli De Jesus, RD Social History Tobacco Use Types Packs/Day [...] Encounter - Shelli De Jesus RD - 07/25/2020 1:13 PM EDT Spoke to patient per nutrition referral. Patient requests call on Thursday 07/27 at 9am. Will request this to be scheduled. documented in this encounter Plan of Treatment Upcoming Encounters Date Type Department Care Team (Late st Contact Info) Description 02/13/2025 1:00 PM EDT Office Visit Radiation Oncology at [address] [phone] Eleonora Mensah MD [facility] [address] [place] [address] documented as of this encounter Visit Diagnoses Not on filedocumented in this encounter Care Teams Senior Asic Design Engineer Relationship Specialty Start Date End Date Charleen Williamson APRN [address] [place] [address] PCP - General Family Medicine 06/29/20 documented as of this encounter
--- OUTSIDE RECORDS SUMMARY | 2024-05-09 14:06 | XMS_ITS | Encounter Summary ---
[place] [address] Care Team Providers Care Button Attaching Machine Operator Name Role Phone Charleen Williamson APRN Primary Care Provider [phone] [phone] Reason for Visit * Reason Comments Follow-up Encounter Details Date Type Department Care Team (Latest Contact Info) Description 07/20/2020 10:15 AM EDT Clinical Support [place] [address] Altaf Rodríguez, [facility] Malignant neoplasm of overlapping sites of [...] Sign Reading Time Taken Comments Blood Pressure 130/80 07/20/2020 10:07 AM EDT Pulse 73 07/20/2020 10:07 AM EDT Temperature 36.3 ??C (97.3 ??F) 07/20/2020 1 0:07 AM EDT Respiratory Rate 22 07/20/2020 10:0 7 AM EDT Oxygen Saturation 100% 07/20/2020 10: 07 AM EDT Inhaled Oxygen Concentration - - Weight 85.7 kg (189 lb) 07/20/2020 10:0 7 AM EDT patient declined to remove shoes Height 177.6 cm (5' 9.92) 07/20/2020 1 0:07 AM EDT patient declined to remove shoes Body Mass Index 27.18 07/20/2020 10:07 AM EDT documented in this encounter Progress Notes * Altaf Rodríguez, [facility] - 07/20/2020 10:15 AM EDT Pharmacist New Chemo Teach Visit PATIENT ID: Alis Silva is a 29 y.o. female with stage IB ER/NJ+, HER2+ right breast cancer who presents today for chemotherapy teaching and is accompaned by her Elmer. The plan is for TCHP given as below. The following information was reviewed with the patient and family. i Drug-Drug / Drug-Herb Interactions: No Antitumor Therapy Schedule: Docetaxel (taxotere), Carboplatin (paraplatin), Trastuzumab (Kanjinti), Pertuzumab (perjeta) every 3 weeks for 6 cycles The trastuzumab (Kanjinti) will continue every 3 weeks for a total of 1 year of treatment Possible Side Effects include, but are not limited to: Docetaxel [...] pain, and changes in liver function tests. ??? Patient interested in participating in peripheral neuropathy study (5-7 days needed for enrollment prior to taxane start): Patient was given information about peripheral neuropathy study and was informed to contact investigators 5-7 days prior to docetaxel start if interested. Carboplatin (paraplatin): The most common side effects [...] ears or hearing loss, electrolyte abnormalities. Trastuzumab (Kanjinti) and Pertuzumab (perjeta): The most common potential side effects include: Diarrhea, mild nausea, rash, allergic reactions to the drug, and a small risk of heart failure or decrease in heart function. Plan: Alis Silva was given written information regarding chemotherapy regimen, side effects and management strategies. She was given an opportunity to ask questions and verbalized understandingof the information and treatment plan. No barriers to learning were identified. Alis Silva was counseled on how to call for any further questions or concerns. ??? Chemotherapy is scheduled to begin on 08/10/20 ??? Supportive Care: o To reduce the risk of neutropenia, she will need injections of pegfilgrastim given the day following chemotherapy. Pegfilgrastim may cause skeletal pain for several days after each injection. Claritin (loratadine) may be helpful in alleviating pegfilgrastim related bone pain. She may take 10 mg starting before her injection and continue to take daily for 5-7 days. - Pegfilgrastim will be arranged via on-body injector given the day of therapy o Prescriptions for antiemetics and other supportive care agents will be reviewed with patient and written by PA. ??? Chemotherapy exposure precautions reviewed: Yes ??? Follow up: Return to clinic on 08/10/20 45 of this 45 minute face to face encounter was spent in counseling, education and coordination of care. documented in this encounter Plan of Treatment Upcoming Encounters Date Type Department Care Team (Late st Contact Info) Description 02/13/2025 1:00 PM EDT Office Visit Radiation Oncology at [address] [address] Eleonora Mensah MD [facility] RADIATION [place] [address] documented as of this encounter Visit Diagnoses Diagnosis 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, estrogen receptor positive documented in this encounter Care Teams Button Attaching Machine Operator Relationship Specialty Start Date End Date Charleen Williamson APRN [address] [place] [address] PCP - General Family Medicine 06/29/20 documented as of this encounter
--- OUTSIDE RECORDS SUMMARY | 2024-05-09 14:06 | XMS_ITS | Encounter Summary ---
[place] [address] Care Team Providers Care Special Education Teaching Assistant Name Role Phone Charleen Williamson APRN Primary Care Provider [phone] [phone] Reason for Visit * Reason Onset Date Comments Results 08/02/2020 MUTYH mutation Encounter Details Date Type Department Care Team (Late st Contact Info) Description 08/02/2020 Telephone Hematology [place] [phone] Luisa Quintero LGC Results (MUTYH mutation) Social History Tobacco Use Types Packs/Day Years [...] Telephone Encounter - Luisa Quintero LGC - 08/02/2020 2:58 PM EDT This test result was discussed with the patient by phone. A copy of the test results have been scanned in the medical record and sent to Alis. A summary of the results is provided below. Please be advised that [place] law requires that all health care workers respect the confidentiality of this information and not pass it along to other health care providers, insurance companies, or indivi duals without the written permission of the patient. The Familial Cancer Program welcomes any questions about these matters. Our phone number is: [phone]. On 07/23/2020, lAis underwent genetic testing for a hereditary predisposition to cancers in eight major organ systems including breast, gynecologic, gastrointestinal, endocrine, genitourinary, skin,brain/nervous system, sarcoma and hematologic. Following are the results of this test. 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 No other mutations were detected. The following 84 genes were evaluated for sequence changes and exonic deletions/duplications: AIP, ALK, APC, PAULINO, AXIN2, BAP1, BARD1, BLM, BMPR1A, BRCA1, BRCA2, BRIP1, CASR, CDC73, CDH1, CDK4, CDKN1B, CDKN1C, CDKN2A (p14ARF), CDKN2A (a73IUZ7M), CEBPA, CHEK2, CTNNA1, DICER1, DIS3L2, EGFR, EPCAM (Deletion/duplication testing only), FH, FLCN, GATA2, GPC3, GREM1 (Promoter region deletion/duplication testing only), HOXB13, HRAS, KIT, MAX, MEN1, MET, MITF, (c.952G>A,P.Mvg243Fqt variant only), MLH1, MSH2, MSH3, MSH6, MUTYH, NBN, NF1, NF2, NTHL1, PALB2, PDGFRA, PHOX2B, PMS2, POLD1, POLE, POT1, GCJTB2E, PTCH1, PTEN, RAD50, RAD51C, RAD51D, RB1,RECQL4, RET, RUNX1, SDHA, SDHAF2, SDHB, SDHC, SDHD, SMAD4, SMARCA4, SMARCB1, SMARCE1, STK11, SUFU, TERC, TERT, ACZB838, TP53, TSC1, TSC2, VHL, WRN, and WT1. A variant of uncertain significance (VUS) was detected in the following genes: Gene Variant RET c.2982A>C (p.Ouw600Mxx) SDHB c.482A>G (p.Vib826Tmb) Interpretation: This test did not identify an underlying genetic cause for the personal history of breast cancer and family history of breast, uterine and ovarian cancer. Possible explanations for this negative testresult include: ?? Alis's cancer and the cancer in her family may be due to non genetic, environmental causes. ?? There could be a mutation in Alis's family that Alis did not inherit. It is possible that Alis's paternal aunt who has had ovarian cancer has a mutation. She should consider testing. ?? There could be mutations in other cancer genes not included in this test, or in genes yet to be discovered. ?? There is a very small chance that a pathogenic variant/mutation could be missed due to limitations in the testing. Additional genetic testing for Alis is not recommended at this time. MUTYH mutation The National Comprehensive Cancer Network (NCCN) Guidelines report that having one copy of the MUTYH gene may increase the risk for colon cancer. For individuals without a family history of colon cancer, as is the case for Alis, the data is unclear as to whether specialized screening is warranted. For those who have a first degree relative with colon cancer, one is expected to benefit from earlier and more frequent screening colonoscopies. While there is some evidence that having one MUTYH mutation may increase the risk for breast cancer, the evidence is insufficient to determine if this finding was a factor in Joshs breast cancer. If the partner of an individual with an MUTYH gene alteration also has an alteration in this same gene their children are at 25% risk of inheriting 2 copies (one from each parent). When an individualinherits two mutations of the MUTYH gene, the individual has a diagnosis of MUTYH-Associated Polyposis Syndrome (MAP). As adults, these individuals develop multiple colon polyps and have a lifetime risk of colon cancer of 43% to almost 100% in the absence of timely surveillance, compared to a 5% lifetime risk for the general [place] population. The risk for duodenal (small intestine) cancer is also increased in carriers of two MUTYH alterations, with a lifetime risk of approximately 4%. There is also a modestly increased risk for late-onset cancer of the ovary, bladder, and skin and some evidence for an increased risk for breast and endometrial cancer. Thyroid abnormalities and sebaceous (oil) gland tumors have also been reported in some studies. It is important to keep in mind that not all individuals who inherit two alterations in the MUTYH gene will develop cancer. The recommendation is to begin colonoscopy at age 25 in those who have MAP. Since 1-2% of the general population has a mutation in the MUTYH gene, when Alis is thinking about starting a family, testing for the MUTYH mutation in Alis's partner is an option to learn whether their future children will be at risk for MAP.Reproductive options are also available to those interested in preventing passing this condition tofuture children. A consultation with a genetic counselor may be warranted for family members who have reproductive concerns. ??? Each of Alis's brothers has a 50% chance of having inherited the altered gene and should consider testing. While having just one copy of the gene is not a major risk factor, since mutations in this gene are relatively common, testing can be done to rule out MAP and to determine who may be at risk for having a child with MAP. ??? Based on the family history,it is not known which side of the family this was likely inherited from. We would suggest that each of Alis's parents be tested so it can be determined which side ofthe family should be informed of this finding. We are happy to see family members here for genetic counseling and testing. Our scheduling personal secretary can be reached at [phone]. Family members can also go to the website of the National Society of Genetic Counselors at www.nsgc.org in order to find a counselor in their area. Variants of uncertain significance It is unclear at this time whether either the RET or SDHB VUS identified in Alis is a cancer-associated mutation or a benign change in the gene with no increased cancer risks. [facility] is continually collecting and analyzing their data, in an effort to reclassify these variants as either cancer-causing mutations or benign changes. It is important to remember that a vast majority of variants of uncertain significance are normal, benign changes in the gene. We will be contacted by the laboratory, in the future, if a reclassification is made and we would then notify Alis. It is important that Alis's phone number and mailing address stay updated in the [facility] system, in order for us to reach her in the future, should an amended report be issued. Family members should NOT be tested for the variant of uncertain significance identified in Alis in order to find out their own cancer risks. Screening Recommendations Based on genetic test results and personal and/or family history, we recommend: Breast cancer screening ?? Clinical breast exams and imaging as recommended by Alis's oncologists. Gynecologic cancer screening ?? Pelvic exams and/or Pap smears as recommended by Alis's splicing machine operator or primary care provider. Colon cancer screening Baseline colorectal cancer screening starting by age 50 is important for everyone, regardless of genetic predisposition. Skin cancer screening ?? Skin cancer screening and sun protection are important for everyone, regardless of genetic predisposition. ?? Consideration of routine dermatologic/skin exams, as recommended by Alis's primary care provider or straight pin making machine operator. documented in this encounter Plan of Treatment Upcoming Encounters Date Type Department Care Team (Late st Contact Info) Description 02/13/2025 1:00 PM EDT Office Visit Radiation Oncology at [address] [phone] Eleonora Mensah MD [facility] [place] [address] documented as of this encounter Visit Diagnoses Not on filedocumented in this encounter Care Teams Special Education Teaching Assistant Relationship Specialty Start Date End Date Charleen Williamson APRN [address] [place] [address] PCP - General Family Medicine 06/29/20 documented as of this encounter
--- OUTSIDE RECORDS SUMMARY | 2024-05-09 14:06 | XMS_ITS | Encounter Summary ---
[place] [address] Care Team Providers Care Roll Plugger Name Role Phone Charleen Williamson APRN Primary Care Provider [phone] [phone] Encounter Details Date Type Department Care Team (Late st Contact Info) Description 07/24/2020 [place] [phone] Avery Castle MD [facility] [place] [address] Social History Tobacco Use Types Packs/Day Years [...] Telephone Encounter - Avery Castle MD - 07/24/2020 8:12 AM EDT Followed up with Alis this morning regarding her symptoms yesterday evening. Last night Alis was having dry heaves. This morning Alis reports she is doing much better. Her symptoms have resolved. documented in this encounter Plan of Treatment Upcoming Encounters Date Type Department Care Team (Late st Contact Info) Description 02/13/2025 1:00 PM EDT Office Visit Radiation Oncology at [address] [address] Eleonora Mensah MD [facility] [place] [address] documented as of this encounter Visit Diagnoses Not on filedocumented in this encounter Care Teams Roll Plugger Relationship Specialty Start Date End Date Charleen Williamson APRN [address] [place] [address] PCP - General Family Medicine 06/29/20 documented as of this encounter
--- OUTSIDE RECORDS SUMMARY | 2024-05-09 14:06 | XMS_ITS | Encounter Summary ---
[place] [address] Care Team Providers Care Track Repair Supervisor Name Role Phone Charleen Williamson APRN Primary Care Provider +1 -[phone] Encounter Details Date Type Department Care Team (Latest Contact Info) Description 07/23/2020 11:45 AM EDT - 07/23/2020 11:59 PM EDT Hospital Encounter [place]ematology [place] [address] 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, estrogen receptor positive; Family history of ovarian cancer; Family history of breast cancer Discharge Disposition: Home Social History Tobacco Use [...] EDT Office Visit Radiation Oncology at [address] [phone] Eleonora Mensah MD [facility] [place] [address] documented as of this encounter Procedures Procedure Name Priority Date/Time Associated Diagnosis Comments RESEARCH VENIPUNCTURE Routine 07/23/2020 12:11 PM EDT 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, estrogen receptor positive Family history of ovarian cancer Family history of breast cancer documented in this encounter Results * Research Venipuncture (07/23/2020 12:11 PM EDT) Research Venipuncture [facility] LABORATORY Blood specimen (specimen) 07/23/2020 12:11 PM EDT 07/23/2020 12:20 PM EDT Narrative Resulting Agency Comment Spec In Lab Jose Rahman MD CHEMISTRY ORDERABLES [facility] [place] [address] documented in this encounter Visit Diagnoses Diagnosis 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, estrogen receptor positive Family history of ovarian cancer Family history of malignant neoplasm of ovary Family history of breast cancer Family history of malignant neoplasm of breast documented in this encounter Care Teams Track Repair Supervisor Relationship Specialty Start Date End Date Charleen Williamson APRN [address] [place] [address] PCP - General Family Medicine 06/29/20 documented as of this encounter
--- OUTSIDE RECORDS SUMMARY | 2024-05-09 14:06 | XMS_ITS | Encounter Summary ---
[place] [address] Care Team Providers Care Oil Lease Broker Name Role Phone Charleen Williamson APRN Primary Care Provider [phone] [phone] Reason for Visit * Reason Comments Injections Zoladex * Treatment/Therapy Plan Authorization (Routine) - Closed Specialty Diagnoses / Procedures Referred By Fawn weston Referred To Contact Diagnoses 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, estrogen receptor positive Procedures TC GOSERELIN ACETATE IMPLANT, 3.6MG (ZOLADEX) [id number] Zoladex (Goserelin) Tyra Cornejo MD [facility] [address] [place] [address] [facility] [address] [place] [address] Referral ID Status Reason Start Date Expiration Date Visits Re quested Visits Authorized [id number] Closed 07/27/2020 07/14/2021 99 99 Encounter Details Date Type Department Care Team (Late st Contact Info) Description 08/14/2020 11:00 AM EDT Infusion Hematology Oncology at [address] [address] Malignant neoplasm of overlapping sites [...] Sign Reading Time Taken Comments Blood Pressure 138/84 08/14/2020 10:53 AM EDT Pulse 103 08/14/2020 10:53 AM EDT Temperature 36.9 ??C (98.4 ??F) 08/14/2020 10:53 AM E DT Respiratory Rate 24 08/14/2020 10:53 AM EDT Oxygen Saturation 99% 08/14/2020 10:53 AM EDT Inhaled Oxygen Concentration - - Weight 89.1 kg (196 lb 6.4 oz) 08/14/2020 10:53 AM EDT Height 172.7 cm (5' 8) 08/14/2020 10:53 AM EDT Body Mass Index 29.86 08/14/2020 10:53 AM EDT documented in this encounter Progress Notes * Griffin Poole RN - 08/14/2020 11:00 AM EDT INFUSION THERAPY ADMINISTRATION NOTES DIAGNOSIS: Breast cancer REASON FOR VISIT: Zoladex injection SUBJECTIVE Alis offers no complaints. Pre administration: Orders independently verified for drug name, route, and dosage per patient's height, weight and BSAby GRIFFIN POOLE RN & Jose Block [facility] ASSESSMENT Alis tolerated the injection well. PLAN Return to clinic as scheduled. documented in this encounter Plan of Treatment Upcoming Encounters Date Type Department Care Team (Late st Contact Info) Description 02/13/2025 1:00 PM EDT Office Visit Radiation Oncology at [address] [phone] Eleonora Mensah MD [facility] [place] [address] documented as of this encounter Visit Diagnoses Diagnosis 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, estrogen receptor positive documented in this encounter Administered Medications Inactive Administered Medications - up to 3 most recent administrations Medication Order MAR Action Action Date Dose Rate Site goserelin (ZOLADEX) implant 3.6 mg 3.6 mg, Subcutaneous, ONCE, 1 dose, On Thu08/14/20 at 1115, Routine, This agent is restricted to outpatient use. Is this drug being given as an outpatient? Yes Given 08/14/2020 11:04 AM EDT 3.6 mg Abdominal Tissue lidocaine (Xylocaine) 1% (10 mg/mL) injection 10 mg 10 mg (1 mL), Subcutaneous, ONCE, 1 dose, On Thu08/14/20 at 1115, Order either Ice or lidocaine for the injection. Inject up to 3 mL, Routine Given 08/14/2020 11:00 AM EDT 10 mg documented in this encounter Care Teams Oil Lease Broker Relationship Specialty Start Date End Date Charleen Williamson APRN [address] [place] [address] PCP - General Family Medicine 06/29/20 documented as of this encounter
--- OUTSIDE RECORDS SUMMARY | 2024-05-09 14:06 | XMS_ITS | Encounter Summary ---
Author Organization [facility] Address [facility] [place] [address] Care Team Providers Care Chronic Disease Epidemiologist Name Role Phone Charleen Williamson APRN Primary Care Provider [phone] Reason for Visit * Reason Comments Follow-up Encounter Details Date Type Department Care Team (Late st Contact Info) Description 07/30/2020 9:00 AM EDT Office Visit Hematology [place] [address] Tyra Cornejo MD [facility] [address] [place] [address] Barbara Cain, [place] Malignant neoplasm of overlapping sites of right [...] Sign Reading Time Taken Comments Blood Pressure 141/82 07/30/2020 8:57 AM EDT Pulse 97 07/30/2020 8:57 AM EDT Temperature 37.2 ??C (99 ??F) 07/30/2020 8:57 AM EDT Respiratory Rate 18 07/30/2020 8:57 AM EDT Oxygen Saturation 100% 07/30/2020 8:57 AM EDT Inhaled Oxygen Concentration - - Weight 85.9 kg (189 lb 6.4 oz) 07/30/2020 8:57 A M EDT Height 175.6 cm (5' 9.13) 07/30/2020 8:57 AM ED T Body Mass Index 27.86 07/30/2020 8:57 AM EDT documented in this encounter Progress Notes * Barbara Cain PA - 07/30/2020 9:00 AM EDT 08/14 second dose COVID - Thursday * Tyra Cornejo MD - 07/30/2020 9:00 AM EDT Images from the original note were not included. Subjective: Patient ID: Alis Silva is a 29 y.o. female. Cc: breast cancer Interval history: Alis is here with her Elmer for f/u questions after our first visit. She has questions about the timing of all of the upcoming appts. Right breast is stable. Increased anxiety causing sleep disturbance, poor appetite and moodiness, PCP has been very supportive, recently started sertraline. Plans to adjust her work duties to reduce physical demands. 29 yo self-palpated a mass under the right nipple when she noticed it had inverted at the end of May 2020. Dx 06/29/20 [facility] + HER2 + right invasive carcinoma with [...] Allergic/Immunologic: Negative. Neurological: Negative. Hematological: Negative. Psychiatric/Behavioral: The patient is nervous/anxious. Objective: Physical Exam Vitals reviewed. Constitutional: General: She is not in acute distress. Appearance: Normal appearance. She is normal weight. HENT: Head: Normocephalic. Right Ear: External ear normal. Left Ear: External ear normal. Nose: Nose normal. Cardiovascular: Rate and Rhythm: Normal rate. Pulses: Normal pulses. Pulmonary: Effort: Pulmonary effort is normal. Chest: Breasts: Right: Inverted nipple, mass and skin change present. Abdominal: General: Abdomen is flat. Musculoskeletal: General: Normal range of motion. Cervical back: Normal range of motion. Lymphadenopathy: Cervical: No cervical adenopathy. Skin: General: Skin is warm and dry. Neurological: General: No focal deficit present. Mental Status: She is alert and oriented to person, place, and time. Psychiatric: Mood and Affect: Mood normal. Behavior: Behavior normal. Thought Content: Thought content normal. Judgment: Judgment normal. Assessment and Plan: No problem-specific Assessment & Plan notes found for this encounter. #1 Breast cancer--29 yo with locally advanced right breast cancer, clinically stable. OK to proceed with egg harvest attempt x 1 as scheduled, directly followed by ovarian suppression injection with goserelin. Cycle 1 TCH-P planned for 08/17/20 #2 Chemotherapy--monitoring for toxicity--reviewed in detail, and tour of infusion suite today withBarbara Cain. #3 Fatigue--stable. #4 Menopausal symptoms--pre-menopausal. Abstinence recommended until at least 4 wks after goserelininjections start. Not currently sexually active. #5 Bone health--no bone pain. #6 Medication management --no new rx. Time: 30 minutes of this 40 minute visit was spent in counseling patient on treatment options and assessment and plan. Fimx-bh-eqlj visit 40 min History and Physical: 10 min. Discussion pts of counseling: as outlined above. documented in this encounter Plan of Treatment Upcoming Encounters Date Type Department Care Team (Late st Contact Info) Description 02/13/2025 1:00 PM EDT Office Visit Radiation Oncology at [address] [address] Eleonora Mensah MD [facility] [place] [address] documented as of this encounter Visit Diagnoses Diagnosis 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, estrogen receptor positive documented in this encounter Care Teams Chronic Disease Epidemiologist Relationship Specialty Start Date End Date Charleen Williamson APRN [address] [place] [address] PCP - General Family Medicine 06/29/20 documented as of this encounter
--- OUTSIDE RECORDS SUMMARY | 2024-05-09 14:06 | XMS_ITS | Encounter Summary ---
Author Organization [facility] [address] Care Team Providers Care Electro Tech Name Role Phone Charleen Williamson APRN Primary Care Provider [phone] Reason for Referral * Diagnostic Test (Routine) - Closed Specialty Diagnoses / Procedures Referred By Contac t Referred To Contact Cardiology Diagnoses Malignant 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, estrogen receptor positive Procedures Echocardiogram Transthoracic([facility]) Tyra Cornejo MD [facility] [address] [place] [address] [facility] [place] [address] Referral ID Status Reason Start Date Expiration Date V isits Requested Visits Authorized [id number] Closed Specialty Service Requested 07/18/2020 07/18/2021 1 1 Reason for Visit * Diagnostic Test (Routine) - Closed Specialty Diagnoses / Procedures Referred By Contac t Referred To Contact Cardiology Diagnoses Malignant 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, estrogen receptor positive Procedures Echocardiogram Transthoracic([facility] or [facility]) Tyra Cornejo MD [facility] [address] [place] [address] [facility] Non-[place] [address] Referral ID Status Reason Start Date Expiration Date V isits Requested Visits Authorized [id number] Closed Specialty Service Requested 07/18/2020 07/18/2021 1 1 Encounter Details Date Type Department Care Team (Latest Contact Info) Description 07/20/2020 12:13 PM EDT - 07/20/2020 11:59 PM EDT Hospital Encounter Non-Invasive [place] [address] Tyra Cornejo MD [facility] [address] [place] [address] Malignant neoplasm of central portion of right [...] EDT Office Visit Radiation Oncology at [address] [address] Eleonora Mensah MD [facility] [place] [address] documented as of this encounter Procedures Procedure Name Priority Date/Time Associated Diagnosis Comments ECHO COMPLETE W CONTRAST Routine 07/20/2020 2:09 PM EDT Malignant 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, estrogen receptor positive documented in this encounter Results * ECHO COMPLETE W CONTRAST (07/20/2020 2:09 PM EDT) EF 62 HEART[facility] SYSTEM Anatomical Region Laterality Modality Other 07/20/2020 Narrative 07/20/2020 2:37 PM EDT Procedure: ?Transthoracic Echocardiogram Patient: ?REYNA FORMAN R ?(Age): 1990(29y) Med Rec#: ? [id number] ?Sex: ?F ? [place] Loc: ? [facility] [place]Ht / Wt: ??177(cm)/86(kg) Pt. Loc: ?Echo Lab ?BSA: ?2.03 Study Date: ?? 07/20/2020 ?Pt. Type: Outpatient Tape: ? Referring: KEN Reading: Emiliano Sanchez ([id number]) Grommet Man: Gali Thomas Grommet Man 2: Rena Roberts Diagnosis: *Estrogen receptor positive [...] Vmax ?0.85 ? m/sec ? MV deceleration teff055.68 ? msec ? MV A-wave Vmax ?0.53 [...] ? Mid-Inferior ?Normal ? Mid-Inferoseptal ?Normal ? [place]-Septal ? Normal ? [place]-Anterior ? Normal ? [place]-Lateral ?Normal ? [place]-Inferior ? Normal ? [place]-Tip ?Normal ? This report has been electronically signed by: Emiliano Sanchez M.D. ? 07/20/2020 14:37:02 Images reviewed and interpretation verified [facility] Cardiac Ultrasound Laboratory Procedure Note Emiliano Sanchez MD - 07/20/2020 Procedure: Transthoracic Echocardiogram Patient: REYNA HEMPHILL(Age): 1990(29y) Med Rec#: [id number] Sex: F [place] [facility] Ht / Wt: 177(cm)/86(kg) Pt. Loc: Echo Lab BSA: 2.03 Study Date: 07/20/2020 Pt. Type: Outpatient Tape: Referring: KEN Reading: Emiliano Sanchez ([id number]) Grommet Man: Gali Thomas Grommet Man 2: Rena Roberts Diagnosis: *Estrogen receptor positive [...] MV E-wave Vmax 0.85 m/sec MV deceleration [id number] msec MV A-wave Vmax 0.53 m/sec MV [...] Normal Mid-Posterolateral Normal Mid-Inferior Normal Mid-Inferoseptal Normal [place]-Septal Normal [place]-Anterior Normal [place]-Lateral Normal [place]-Inferior Normal [place]-Tip Normal This report has been electronically signed by: Emiliano Sanchez M.D. 07/20/2020 14:37:02 Images reviewed and interpretation verified [facility] Cardiac Ultrasound Laboratory Tyra Cornejo MD ECHO ORDERABLES documented in this encounter Visit Diagnoses Diagnosis Malignant 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, estrogen receptor positive documented in this encounter Administered Medications Inactive Administered Medications - up to 3 most recent administrations Medication Order MAR Action Action Date Dose Rate Site perflutren protein-A microsphers (Optison) (0.22 mg/mL) injection 1.5 mL 1.5 mL, Intravenous, ONCE PRN, 1 dose, Starting on Thu07/20/20 at 1410, Until Thu07/20/20 at 1345, for enhancement of sub-optimal echo images, Echo Lab (Intra-Procedure), Routine Given 07/20/2020 1:45 PM EDT 1.5 mLs documented in this encounter Care Teams Electro Tech Relationship Specialty Start Date End Date Charleen Williamson APRN [address] [place] [address] PCP - General Family Medicine 06/29/20 documented as of this encounter
--- OUTSIDE RECORDS SUMMARY | 2024-05-09 14:06 | XMS_ITS | Encounter Summary ---
Author Organization [facility] [place] [address] Care Team Providers Care Batch Operator Name Role Phone Charleen Williamson APRN Primary Care Provider [phone] [phone] Encounter Details Date Type Department Care Team (Late st Contact Info) Description 07/20/2020 Notes [place] [id number] Ronda Silva MSW Social History Tobacco Use [...] Progress Notes * Ronda Silva MSW - 07/20/2020 11:59 PM EDT CCM/SW met with pt and her , Daren, after her chemo teach appt with Barbara Cain, Breast Oncology PA. Alis was given the names and websites of organizations ([employer] and [facility] [employer]) for young women with breast cancer. I also encouraged her to contact the [employer] to apply for financial assistance for fertility preservation. Pt was told that [facility] was the only agency in the area that contracts with [employer] and they have offices in [place] and [place], [place]. Alis attempted to get an apptwith Dr. Lacy Barroso, but the earliest she could be seen was at the end of July. She plans to ask her PCP for names of counselors in her community and I gave her the website [email or web address] which will provide her with a list of therapists in the [facility]. Pt would like assistance with a vet bill from [facility] which I will submit. I encouraged Alis to contact me with any additionalquestions or concerns. [facility] will continue to provide support and resources to pt. documented in this encounter Plan of Treatment Upcoming Encounters Date Type Department Care Team (Late st Contact Info) Description 02/13/2025 1:00 PM EDT Office Visit Radiation Oncology at [address] [phone] Eleonora Mensah MD [facility] [place] [address] documented as of this encounter Visit Diagnoses Not on filedocumented in this encounter Care Teams Batch Operator Relationship Specialty Start Date End Date Charleen Williamson APRN [address] [place] [address] PCP - General Family Medicine 06/29/20 documented as of this encounter
--- OUTSIDE RECORDS SUMMARY | 2024-05-09 14:06 | XMS_ITS | Encounter Summary ---
[place] [address] Care Team Providers Care Block Sorter Name Role Phone Charleen Williamson APRN Primary Care Provider [phone] Encounter Details Date Type Department Care Team (Late st Contact Info) Description 07/20/2020 11:00 AM EDT Office Visit [place] [phone] Barbara Cain PA 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, estrogen receptor positive; Encounter for fertility preservation counseling; Adjustment disorder with mixed anxiety and depressed [...] Progress Notes * Barbara Cain PA - 07/20/2020 11:00 AM EDT [facility] Chemotherapy Teaching Visit This teaching visit was done in conjunction with a clinic pharmacist who reviewed chemotherapy principles and specific drug side effects. Please refer to their note for more details. The following information was reviewed directly by me. Clinic pharmacist: Emeterio Rodríguez RPH PATIENT ID: Alis Silva is a 29 y.o. 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 Medical Oncologist: Tyra Cornejo HPI: Alis is doing overall okay. She is feeling overwhelmed by all of this and has been speaking a lotto someone at her PCP's office who also had breast cancer. She has been referred to [facility] psycho-oncology but was told she would not be able to be seen until late July. She plans to talk with her PCPabout seeing a counselor elsewhere. She has not started trazodone yet as someone at the pharmacy mentioned a drug interaction. She is scheduled to get her COVID vaccine dose #2 on 08/14/20. She get Depot Provera shots for contraception every 3 months; last was early June. She and Daren have lookedinto financial assistance for fertility preservation, and they appear to qualify for the [facility] assistance program. Breast Cancer History: - 29 yo self-palpated a mass under the right nipple when she noticed it had inverted at the end of May 2020. - [place] [facility] [place]2 + right invasive carcinoma with [...] c/w benign breast tissue with nodular adenosis ?? RFs: menses age 14 to present; no menses while on Depo provera. ?? PMH, PSH, medications, allergies, and PFSH were reviewed by me and updated in the chart. PMH: Patient Active Problem List Diagnosis Code ??? Malignant neoplasm of right breast in female, estrogen receptor positive C50.911, Z17.0 Anxiety and depression PSH: Past Surgical History: Procedure Laterality Date ??? MAMMO US BIOPSY LYMPH NODE RIGHT Right 06/29/2020 Mammo US Biopsy Lymph Node Right 06/29/2020 Danni Osuna MD [facility] RAD MAMMOGRAPHY ??? MAMMO US BIOPSY RIGHT Right 06/29/2020 Mammo Us Biopsy Right 06/29/2020 Danni Osuna MD [facility] RAD MAMMOGRAPHY ??? MRI GUIDED BIOPSY BREAST VACUUM ASSISTED LEFT Left 07/18/2020 MRI Guided Biopsy Breast Vacuum Assisted Left 07/18/2020 [facility] RAD MRI Current Medications: hydrOXYzine, lactobacillus rhamnosus (GG), melatonin, propranoloL, and traZODone No Known Allergies Social History Tobacco Use ??? Smoking status: Never Smoker ??? Smokeless tobacco: Never Used Substance Use Topics ??? Alcohol use: Not on file ??? Drug use: Not on file Social History Social History Narrative ??? Not on file Family History: family history includes Breast Cancer (age of onset: 80) in her paternal grandmother; Cervical Cancer in her paternal aunt; Ovarian Cancer (age of onset: 50) in her paternal aunt. She has been referred to genetics; scheduled for 07/23 Chemotherapy Plan: Regimen: TCHP Number of cycles: 6 Intent: Curative Timing: Neoadjuvant Antitumor Therapy Schedule: ?? Docetaxel (Taxotere), carboplatin (Paraplatin), trastuzumab (Kanjinti), pertuzumab (Perjeta) every 3 weeks for 6 cycles ?? The trastuzumab (Kanjinti) will continue every 3 weeks for a total of 1 year of treatment Laboratory Tests: CMP and CBC prior to each cycle Provider Visits: Prior to every cycle, with either the physician or PA Possible Side Effects: See pharmacist note Premedications: ??? To prevent nausea, you will be given aprepitant (Cinvanti) and palonosetron (Aloxi). ??? To prevent hypersensitivity reactions, you will be given dexamethasone (Decadron), diphenhydramine (Benadryl) and famotidine (Pepcid). Infection Prevention: ??? To reduce the risk of neutropenia, she will need injections of pegfilgrastim (Neulasta) given the day following chemotherapy. Pegfilgrastim may cause skeletal pain for several days after each injection. o Pegfilgrastim will be given via Neulasta OnPro (on-body injector). If insurance does not cover this, she will likely get Fulphila injections the day after each treatment, which could be done closerto home at the [facility]. o Pegfilgrastim may cause bone pain. Recommend loratadine (Claritin) 1 tablet (10 mg) once a day starting the day of chemotherapy and taken for a total of 5-7 days to help with the pain. ??? Encouraged frequent hand washing, social distancing, and avoiding people who have symptoms of an illness. ??? Recommended daily temperature checks with a thermometer prior to taking any analgesics that canbring down a fever (like Tylenol). Call for a temperature >100.4F. Chemotherapy-Induced Nausea and Vomiting (CINV): ??? Risk factors for chemotherapy-induced nausea and vomiting: Risk factor RF present? Younger age YES Female sex YES Previous history of CINV n/a Little or no previous alcohol use no History of morning sickness during n/a Prone to motion sickness no Anxiety / high pre-treatment expectation of nausea no ??? Antiemetic premedications will be given here (see above). ??? Home antiemetics: o prochlorperazine (Compazine) 1 tablet (10 mg) every 6 hours as needed for nausea o lorazepam (Ativan) 1 tablet (0.5 mg) every 6 hours as needed for nausea Bowel Care: ??? Reviewed possible side effects of constipation and diarrhea. Alis knows to call our office with >3 loose stools per day or more than 2 days without a bowel movement. ??? OTC medications for constipation: MiraLAX, senna (Senokot), docusate (Colace) ??? OTC medication for diarrhea: loperamide (Imodium A-D) Fatigue: ??? Reviewed that fatigue is a common side effect of cancer treatment. Recommended the following: o Rest, but not too much: Plan your day so you have time to rest. Take short naps or breaks (30 minutes or less). Try to sleep 7-8 hours each night. o Stay active: Stay as active as you can with regular moderate exercise like walking. o Save your energy: Prioritize! Decide which activities are really important to you and which ones aren???t. Plan ahead and spread your activities throughout the day with rest breaks between activities. o Get help: Ask your family or friends to help with the things you find tiring or hard to do. o Get support: Think about joining a support group. Sharing your feelings with others can ease the burden of fatigue. You can learn coping hints from others by talking about your situation. o Eat well: Drink plenty of water. Eat as well as you can, prioritizing health fruits, vegetables, and protein. o Call your doctor: Call your doctor if you feel too tired to get out of bed for a 24-hour period, if you feel confused, dizzy, lose your balance or fall, have problems waking up, have problems catching your breath, or if the fatigue seems to be getting worse. Sexual Activity & Fertility: ??? Reviewed the risks of infection and bleeding and ways to mitigate this. ??? Recommended barrier protection for at least 1 week after each infusion to prevent any chemotherapy in body fluids from potentially affecting a partner. ??? Contraception: Reviewed the need for reliable contraception for at least [address] Cornejo has told her to continue with Depot Provera injections during chemotherapy and surgery with plan to transition to non-hormonal method after. ??? Fertility: Reviewed that chemotherapy may cause infertility; although she will likely regain fertility after treatment given her young age. Alis does wish to preserve her fertility and wants todo so with the strategy that will give her the greatest chance of having a biological child. Jose shares that he has fertility issues himself. I shared the options of oocyte or embryo harvesting and cryopreservation as well as the use of concurrent GnRH agonist such as goserelin (although the efficacy of this method is unclear). Alis wishes to proceed with ART, and I briefly discussed what that would entail. She met with MILAGROS Hernandez to discuss application to the [facility] financial assistance program. I will set up an urgent referral to [facility]. Alopecia: ??? Hair loss can be expected as a result of this chemotherapy regimen. Most patients will start tonotice this 2-4 weeks after starting chemo. ??? Reviewed local resources for wigs and scarves. Distress: Distress Scale Distress Score: 8 When Screening Completed: Before treatment Screening Location: [address] Problem List Practical Problems: Insurance/financial, Transportation Emotional Problems: Depression, Fears, Nervousness Physical Problems: Eating, Indigestion, Nausea, Sleep Referrals Made Today: Social work, Mental health ??? Referrals made: previously referred to DRUG COORDINATOR, [facility] psycho-onc, nutrition. Also recommended the following to find a counselor: Psychology Today website, Payteller Plan: Alis was given written information regarding the chemotherapy regimen, side effects, and management strategies. Alis was given an opportunity to ask questions and verbalized understanding of the information and treatment plan. No barriers to learning were identified. Alis was counseled on how to call for any further questions or concerns. #Chemotherapy teaching ??? Chemotherapy is scheduled to begin on 08/10 (then after that) ??? Mediport placement: 07/23 ??? Testing/Diagnostics: o Baseline blood work will be done on day 1 of cycle 1 o An echocardiogram is scheduled for today at 12:30 ??? Supportive Care: reviewed above ??? Smoking Cessation: N/A ??? Advance Directives: deferred ??? Follow up: Return to clinic on 08/10 for C1D1, visit with me ??? Our nurse will give Alis a phone call after the first cycle to check in. #Insomnia ?? Trazodone and hydroxyzine interaction Class C: monitor. HydrOXYzine may enhance the DATA MINING ANALYST depressant effect of DATA MINING ANALYST Depressants. Severity: Moderate, Reliability Rating: Fair. ?? She is taking hydralazine for anxiety about once daily. I let her know that she may feel more sleepy when she combines the two. Trazodone is to be taken only at night. She will space this out fromher hydroxyzine. #COVID vaccine ?? Recommend getting dose #2 when she is able within the window allowed. It is okay to get at any point during chemotherapy, but day 4-5 may be best. #Fertility preservation ?? See discussion above ?? Financial assistance application through [employer] ?? Referral to [facility] ?? Gave printouts from [facility] and [facility] regarding fertility preservation options #Financial toxicity ?? Followed by MILAGROS Hernandez ?? Approved for transportation assistance from [facility] #Psychosocial ?? Coming to terms with diagnosis, seeking out appropriate resources ?? Discussed [employer] resources including online info sheets, support groups, seminars, email list, etc. Alis was given the contact information for our breast oncology team and was instructed to call with any questions or concerns during normal business hours. Alis was also given the phone number for the hospital flipping machine operator to reach the on-call oncology fellow during non-business hours. ??? Mon-Fri 8am-5pm: ??? Weekends, nights, and holidays: - ask for the on-call oncology fellow. 40 of this 50 minute face to face encounter was spent in counseling, education and coordination of care. Barbara Cain PA-C Medical Oncology - Breast & GI Cancers [facility] Pager - [phone] documented in this encounter Plan of Treatment Upcoming Encounters Date Type Department Care Team (Late st Contact Info) Description 02/13/2025 1:00 PM EDT Office Visit Radiation Oncology at [address] [phone] Eleonora Mensah MD [facility] [place] [address] documented as of this encounter Visit Diagnoses Diagnosis 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, estrogen receptor positive Encounter for fertility preservation counseling Adjustment disorder with mixed anxiety and depressed mood documented in this encounter Care Teams Block Sorter Relationship Specialty Start Date End Date Charleen Williamson APRN [address] [place] [address] PCP - General Family Medicine 06/29/20 documented as of this encounter
--- OUTSIDE RECORDS SUMMARY | 2024-05-09 14:06 | XMS_ITS | Encounter Summary ---
[place] [address] Care Team Providers Care Training And Development Coordinator Name Role Phone Charleen Williamson APRN Primary Care Provider [phone] Reason for Visit * Reason Onset Date Comments Chemotherapy Teaching 08/14/2020 Encounter Details Date Type Department Care Team (Late st Contact Info) Description 08/14/2020 Telephone [place]ology [place] [phone] Subha Holt RN Chemotherapy Teaching Social History Tobacco Use Types Packs/Day Years [...] Telephone Encounter - Subha Holt RN - 08/14/2020 8:31 AM EDT Pre-chemotherapy Telephone Call Call placed to patient to confirm first time chemotherapy visit scheduled for 08/17/2020 11:00. Spoke with Alis. Patient scheduled to receive: CARBOplatin / DOCEtaxel / TRASTuzumab / PERTuzumab Plan for every three weeks for 6 cycles . Supportive care medications to take at home before treatment: Claritin the night of infusion. Confirmed that the patient: ??? knows where to park ??? understands where the infusion suite is located and where to arrive ??? has received chemotherapy teaching and educational materials ??? knows that if they will be here through noon, we offer lunch and snacks ??? understands that Infusing chemotherapy often takes a few hours o encourage patient to bring books or a computer (wireless access available) ??? knows to wear loose comfortable clothing ??? understands that they can only have one (1) visitor in infusion suite at a time Taking omeprazole so will skip morning of. Talk to PAYTON Moffett Atarax and ativan. Reminded patient to call [phone] with any questions or symptoms before or after treatment. documented in this encounter Plan of Treatment Upcoming Encounters Date Type Department Care Team (Late st Contact Info) Description 02/13/2025 1:00 PM EDT Office Visit Radiation Oncology at [address] [phone] Eleonora Mensah MD [facility] [place] [address] documented as of this encounter Visit Diagnoses Not on filedocumented in this encounter Care Teams Training And Development Coordinator Relationship Specialty Start Date End Date Charleen Williamson APRN [address] [place] [address] PCP - General Family Medicine 06/29/20 documented as of this encounter
--- OUTSIDE RECORDS SUMMARY | 2024-05-09 14:07 | XMS_ITS | Encounter Summary ---
Author Organization [facility] [place] [address] Care Team Providers Care Senior Business Broker Name Role Phone Clay, Charleen White APRN Primary Care Provider [phone] Encounter Details Date Type Department Care Team (Latest Contact Info) Description 06/29/2020 2:02 PM EST - 06/29/2020 2:17 PM EST Hospital [place] [phone] Bhavik Boucher MD Abnormal mammogram Discharge Disposition: Home Social History Tobacco Use Types Packs/Day Years Used Date Smoking Tobacco: Never Assessed Sex and Gender Information Value Date Recorded Sex Assigned at Female 07/19/2020 8:39 AM EDT Gender Identity Female 08/04/2022 1:11 PM EDT Sexual Orientation Straight 08/04/2022 1: 11 PM EDT documented as of this encounter Plan of Treatment Upcoming Encounters Date Type Department Care Team (Late st Contact Info) Description 02/13/2025 1:00 PM EDT Office Visit Radiation Oncology at [address] [phone] Eleonora Mensah MD [facility] [place] [address] documented as of this encounter Procedures Procedure Name Priority Date/Time Associated Diagnosis Comments MAMMO DIAGNOSTIC WITHOUT CAD RIGHT Routine 06/29/2020 3:25 PM EST Abnormal mammogram documented in this encounter Results * Mammo Diagnostic Without Cad Right (06/29/2020 3:25 PM EST) Anatomical Region Laterality Modality Breast Right Mammography Impressions 07/03/2020 8:38 AM EST Concordant result RECOMMENDATION: Definitive management. I phoned these results and recommendations to the patient on 07/03/2020 at 0835 hours. REVIEW PATH CONFERENCE?: No Thank you for letting us participate in the care of this patient. For questions regarding this report, please contact the number below. ? Electronically signed by: Danni Osuna MD, [facility] ([phone]), at 07/03/2020 8:38 AM Narrative 07/03/2020 8:38 AM EST RIGHT BREAST ULTRASOUND GUIDED AUTOMATED CORE BIOPSY RIGHT AXILLA ULTRASOUND GUIDED AUTOMATED CORE BIOPSY CLINICAL HISTORY: Abnormal mammogram. Right breast lesion #1: There is an irregular mass in the right retroareolar region centered at the 11:00 radian 2 cm from the nipple with dermal extension and skin thickening. This measures at least 4 cm in diameter. Right axilla: 0.8 cm morphologically abnormal lymph node PROCEDURAL DETAILS: Informed consent was obtained and a timeout procedure was performed per protocol. RIGHT AXILLA: Using local anesthetic (less than 5 cc of 1% lidocaine), sterile technique, and ultrasound guidance the lesion in the right axilla was localized and sampled. Multiple satisfactory core biopsy specimens were obtained using a 14-gauge automated device. A Lemonwise twirl marker clip was placed. The clip was in satisfactory position sonographically. RIGHT BREAST LESION #1:Using local anesthetic (less than 5 cc of 1% lidocaine), sterile technique, and ultrasound guidance the lesion in the right breast was localized and sampled. Multiple satisfactory core biopsy specimens were obtained using a 14-gauge automated device. A Senomark hooked coil 14G marker clip was placed. The clip was in satisfactory position both sonographically and at follow-up cranio-caudal and true lateral digital mammography. COMPLICATIONS: None. PROCEDURAL ATTESTATION: Resident: Rachele Darnell performed the procedure with the resident observing. 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
--- OUTSIDE RECORDS SUMMARY | 2024-05-09 14:07 | XMS_ITS | Encounter Summary ---
Author Organization [facility]ly [facility] [place] [address] Care Team Providers Care Anesthesiology Physician Name Role Phone Charleen Williamson APRN Primary Care Provider [phone] Encounter Details Date Type Department Care Team (Latest Contact Info) Description 07/04/2020 11:05 AM EST Laboratory Appointment Lab [address] [place] [phone] Malignant neoplasm of right breast in female, estrogen receptor positive, unspecified site of breast Social History Tobacco Use Types Packs/Day Years Used Date Smoking Tobacco: Never Assessed Overall Financial Resource Strain (CARDIA) Arpitae r [...] EDT Office Visit Radiation Oncology at [address] [phone] Eleonora Mensah MD [facility] [place] [address] documented as of this encounter Procedures Procedure Name Priority Date/Time Associated Diagnosis Comments HEMOGRAM Routine 07/04/2020 11:57 AM EST Malignant neoplasm of right breast in female, estrogen receptor positive, unspecified site of breast DIFFERENTIAL, AUTOMATED Routine 07/04/2020 11:57 AM EST Malignant neoplasm of right breast in female, estrogen receptor positive, unspecified site of breast HC CBC,PLT & AUTO DIFF Routine 11:57 AM EST Malignant neoplasm of right breast in female, estrogen receptor positive, unspecified site of breast COMPREHENSIVE METABOLIC PANEL Routine 07/04/2020 11:57 AM EST Malignant neoplasm of right breast in female, estrogen receptor positive, unspecified site of breast documented in this encounter Results * (ABNORMAL) Differential, Automated (07/04/2020 11:57 AM EST) Neutrophil % 70.7 % [facility] Neutrophil Absolute 7.01(H) 1.70 - 6.10 x10(3)/mc L [facility] Lymph % 21.8 % [facility] Lymphocytes Abs 2.2 0.9 - 3.2 x10(3)/mc L [facility] Monocyte % 6.0 % [facility] Monocyte Abs 0.6 0.3 - 0.9 x10(3)/mc L [facility] Eos % 0.4 % [facility] Eosinophils Abs 0.0 0.0 - 0.4 x10(3)/mc L [facility] Basophil % 0.8 % [facility] Baso Absolute 0.1 0.0 - 0.1 x10(3)/mc L [facility] Immature Gran % 0.30 % [facility] Comment: Immature granulocytes(IG's)percentage and absolute count will include metamyelocytes, myelocytes, and promyelocytes. Blood smears from CBCs yielding IG's will be scanned manually for concordance. If this scan disagrees with the automated IG or if promyelocytes are noted, a manual differential will be performed. Immature Gran Absolute 0.03 0.00 - 0.04 x10(3)/mc L [facility] Blood specimen (specimen) 07/04/2020 11:57 AM EST 07/04/2020 12:37 PM EST Narrative Resulting Agency Comment Spec In Lab Gorge Soto MD HEMATOLOGY ORDERABLE S [facility] [place] [address] * (ABNORMAL) Hemogram (07/04/2020 11:57 AM EST) White Blood Cell 9.9(H) 4.0 - 9.5 x10(3)/[facility] Red Blood Cell 4.99 4.00 - 5.21 x10(6)/[facility] Hemoglobin 14.8 11.7 - 15.5 gm/dL [facility] Hematocrit 42.8 35.7 - 45.8 % [facility] Mean Cell Volume 85.8 82.6 - 94.4 fL [facility] Mean Cell Hemoglobin 29.7 27.1 - 32.0 pg [facility] Mean Cell Hemoglobin Concentration 34.6 31.7 - 35.0 gm/dL [facility] Platelet 273 145 - 357 x10(3)/[facility] RDW Standard Deviation 36.3(L) 37.0 - 46.0 [facility] RDW coefficient of variation 11.7 11.5 - 14.1 % [facility] Mean Platelet Volume 8.9 7.6 - 12.9 [facility] NRBC% auto 0.0 % [facility] NRBC Absolute 0.000 0.000 - 0.000 x10(3)/ L [facility] Blood specimen (specimen) 07/04/2020 11:57 AM EST 07/04/2020 12:37 PM EST Narrative Resulting Agency Comment Spec In Lab Gorge Soto MD HEMATOLOGY ORDERABLE S [facility] [place] [address] * (ABNORMAL) Comprehensive metabolic panel (non-fasting) (07/04/2020 11:57 AM EST) Glucose 93 65 - 199 mg/dL [facility] Comment:Diabetes: >=200 mg/d L plus symptoms Blood Urea Nitrogen 9 8 - 18 mg/dL [facility] Creatinine 0.74 0.70 - 1.20 mg/dL [facility] Sodium 139 135 - 145 mmol/L [facility] Potassium 3.9 3.5 - 5.0 mmol/L [facility] Comment: Please note: ??Patients with WBC >100,000 may have falsely elevated Potassium levels. ??For accurate Potassium quantification in these patients send serum separator tube (gold top) for subsequent determinations. ??Contact the Clinical Chemistry Laboratory if there are any questions. Chloride 104 98 - 107 mmol/L [facility] Carbon Dioxide 23 22 - 31 mmol/L [facility] Anion Gap 12 5 - 15 mmol/L [facility] Calcium 10.0 8.5 - 10.5 mg/dL [facility] Protein, Total 8.7(H) 6.1 - 8.0 gm/dL [facility] Albumin 4.8 3.2 - 5.2 gm/dL [facility] Aspartate Aminotransferase 15 0 - 30 unit/L [facility] Alanine Aminotransferase 10 0 - 30 unit/L [facility] Alkaline Phosphatase 79 35 - 105 unit/L [facility] Bilirubin, Total 0.7 0.2 - 1.3 mg/dL [facility] Est Glomerular Filtration Rate 111 >=60 mL/min/1. 73 m?? [facility] Comment: This patient? s estimated glomerular filtration rate (eGFR) is between 111 mL/min/1.73 m2 (patients with less muscle mass) and 129 mL/min/1.73 m2 (patients with more muscle mass) [...] in addition to eGFR. Blood specimen (specimen) 07/04/2020 11:57 AM EST 07/04/2020 12:37 PM EST Narrative Resulting Agency Comment Spec In Lab Gorge Soto MD [place] [address] documented in this encounter Visit Diagnoses Diagnosis Malignant neoplasm of right breast in female, estrogen receptor positive, unspecified site of breast documented in this encounter Care Teams Anesthesiology Physician Relationship Specialty Start Date End Date Charleen Williamson APRN [address] [place] [address] PCP - General Family Medicine 06/29/20 documented as of this encounter
--- OUTSIDE RECORDS SUMMARY | 2024-05-09 14:07 | XMS_ITS | Encounter Summary ---
Author Organization [facility] Address [facility] [place] [address] Care Team Providers Care Vault Maker Name Role Phone Charleen Williamson APRN Primary Care Provider [phone] Reason for Visit * - Closed Specialty Diagnoses / Procedures Referred By Fawn t Referred To Contact Diagnoses Breast mass, right Procedures Request for 2nd read Mammo Charleen Williamson APRN [address] [place] [address] Referral ID Status Reason Start Date Expiration Date Visits Re quested Visits Authorized [id number] Closed 06/28/2020 06/28/2021 1 1 Encounter Details Date Type Department Care Team (Latest Contact Info) Description 06/28/2020 2:10 PM EST Ancillary Procedure Radiology [place] [address] Charleen Williamson APRN [address] [place] [address] Breast mass, right Social History Tobacco Use Types Packs/Day Years [...] EDT Office Visit Radiation Oncology at [address] [phone] Eleonora Mensah MD [facility] [place] [address] documented as of this encounter Procedures Procedure Name Priority Date/Time Associated Diagnosis Comments REQUEST FOR 2ND READ MAMMO Routine 06/28/2020 1:56 PM EST Breast mass, right documented in this encounter Results * Request for 2nd read Mammo (06/28/2020 1:56 PM EST) Anatomical Region Laterality Modality SO Impressions 06/28/2020 3:17 PM EST Right breast retroareolar mass with associated microcalcifications. BI-RADS Category 5: Highly Suggestive of Malignancy - Appropriate Action Should Be Taken Left breast: BI-RADS 1, negative. RECOMMENDATION: Recommend ultrasound-guided core needle biopsy of the right breast retroareolar mass. Recommend surgical consultation, in the setting of skin thickening. Recommend right axillary repeat ultrasound, and consideration of axillary biopsy. Note: We will coordinate this appointment. The comprehensive breast program has been informed. Please note: The interpretation of the [facility] Breast Imaging Radiologist subspecialist may differ from the original radiologists interpretation. This is usually not due to a deficiency of the original interpreting radiologist, rather due to the greater skill level afforded by sub-specialization in the field and/or reasonable variations in interpretations. If you have a concern regarding the [facility] interpretation you may contact the [facility] Breast Junior Linux Systems Administrator Office at . I have personally reviewed the image(s) and the resident's interpretation and agree with the findings, Bhavik Boucher MD at 06/28/2020 3:17 PM Thank you for letting us participate in the care of this patient. For questions regarding this report, please contact the number below. ? Electronically signed by: Bhavik Boucher MD, [facility] ([phone]), at 06/28/2020 3:17 PM Narrative 06/28/2020 3:17 PM EST INTERPRETATION OF OUTSIDE BREAST IMAGING I have been asked to consult on this patient by Charleen Williamson APRN because she believes a review of this study may change or alter the care of this patient. STUDIES FROM: [facility] DATES: 06/28/2020 TYPE OF EXAM: Bilateral diagnostic mammogram and right breast ultrasound CLINICAL HISTORY: Right breast mass: CAT5, Patient would like treatment at [facility]; [facility]; What Modality is the exam? Mammography; Body Part (please add comments as necessary): Breast; Sending Institution [facility]; Date of exam 20200628; I believe a reinterpretation of this exam may alter care of Patient. Yes. ?? COMPARISONS: None TECHNIQUE: Reinterpretation of outside mammographic images including CC and MLO views of each breast. 2-D and 3- D tomosynthesis images were obtained. Computer aided detection was used. Reinterpretation of outside ultrasound images labeled right breast. Please note: Breast ultrasound is facsimile machine operator dependent. Complete assessment of the breast tissue is not possible through static images or cine loops. Because breast ultrasound is a dynamic process the interpretive value of outside images is limited. FINDINGS: MAMMOGRAM: In the right breast at 11:00, approximately 2 cm from the nipple there is a spiculated mass measuring approximately 2.5 cm with an associated group of microcalcifications spanning approximately 1 cm. There is associated surrounding architectural distortion. There is associated skin thickening, adjacent to the mass. The right axilla suggests prominent lymph nodes, when compared to the contralateral side. The left breast is normal. ULTRASOUND: Ultrasound images labeled right breast retroareolar region demonstrate a hypoechoic mass with irregular borders and associated echogenic foci consistent with microcalcifications. On cine images of the mass measures up to approximately 2.4 cm in length with antiparallel orientation and posterior acoustical shadowing. Possible association with the nipple areolar complex. Axillary ultrasound labeled right axilla demonstrates multiple lymph nodes with prominent to enlarged cortices, and small lymph nodes with apparent loss of fatty mónica. Procedure Note Bhavik Boucher MD - 06/28/2020 INTERPRETATION OF OUTSIDE BREAST IMAGING I have been asked to consult on this patient by Charleen Kaye she believes a review of this study may change or alter the care of thispatient. STUDIES FROM: [facility] DATES: 06/28/2020 TYPE OF EXAM: Bilateral diagnostic mammogram and right breast ultrasound CLINICAL HISTORY: Right breast mass: CAT5, [facility]; What Modality is the exam? Mammography; Body Part (pleaseadd comments as necessary): Breast; Sending Institution [facility]; Date of exam 20200628; I believe a reinterpretation of this exammay alter care of Patient. Yes. COMPARISONS: None TECHNIQUE: Reinterpretation of outside mammographic images including CCand MLO views of each breast. 2-D and 3- D tomosynthesis images were obtained.Computer aided detection was used. Reinterpretation of outside ultrasound images labeled right breast. Pleasenote: Breast ultrasound is facsimile machine operator dependent. Complete assessment of thebreast tissue is not possible through static images or cine loops. Becausebreast ultrasound is a dynamic process the interpretive value of outside imagesis limited. FINDINGS: MAMMOGRAM: In the right breast at 11:00, approximately 2 cm from the nipple there mack spiculated mass measuring approximately 2.5 cm with an associated groupof microcalcifications spanning approximately 1 cm. There is associatedsurrounding architectural distortion. There is associated skin thickening, adjacent tothe mass. The right axilla suggests prominent lymph nodes, when compared tothe contralateral side. The left breast is normal. ULTRASOUND: Ultrasound images labeled right breast retroareolar region demonstrate a hypoechoic mass with irregular borders and associated echogenic fociconsistent with microcalcifications. On cine images of the mass measures up to approximately 2.4 cm in length with antiparallel orientation andposterior acoustical shadowing. Possible association with the nipple areolarcomplex. Axillary ultrasound labeled right axilla demonstrates multiple lymph nodeswith prominent to enlarged cortices, and small lymph nodes with apparent lossof fatty mónica. IMPRESSION Right breast retroareolar mass with associated microcalcifications. BI-RADS Category 5: Highly Suggestive of Malignancy - Appropriate ActionShould Be Taken Left breast: BI-RADS 1, negative. RECOMMENDATION: Recommend ultrasound-guided core needle biopsy of the right breastretroareolar mass. Recommend surgical consultation, in the setting of skinthickening. Recommend right axillary repeat ultrasound, and consideration ofaxillary biopsy. Note: We will coordinate this appointment. The comprehensive breastprogram has been informed. Please note: The interpretation of the [facility] BreastImaging Radiologist subspecialist may differ from the original radiologists interpretation. This is usually not due to a deficiency of the original interpreting radiologist, rather due to the greater skill level affordedby sub-specialization in the field and/or reasonable variations ininterpretations. If you have a concern regarding the [facility] interpretation you may contact [facility] Junior Linux Systems Administrator [facility] at . I have personally reviewed the image(s) and the resident's interpretationand agree with the findings, Bhavik Boucher MD at 06/28/2020 3:17 PM Thank you for letting us participate in the care of this patient. Forquestions regarding this report, please contact the number below. Electronically signed by: Bhavik Boucher MD, [facility]([phone]), at 06/28/2020 3:17 PM Charleen Williamson APRN IMG OUTSIDE INTER PRETATION ORDERABLES documented in this encounter Visit Diagnoses Diagnosis Breast mass, right Lump or mass in breast documented in this encounter Care Teams Vault Maker Relationship Specialty Start Date End Date Charleen Williamson APRN [address] [place] [address] PCP - General Family Medicine 06/29/20 documented as of this encounter
--- OUTSIDE RECORDS SUMMARY | 2024-05-09 14:07 | XMS_ITS | Encounter Summary ---
[place] [address] Care Team Providers Care Proposal Manager Name Role Phone Charleen Williamson APRN Primary Care Provider [phone] Reason for Visit * Diagnostic Test (Routine) - Closed Specialty Diagnoses / Procedures Referred By Contac t Referred To Contact Radiology Diagnoses Malignant neoplasm of right breast in female, estrogen receptor positive, unspecified site of breast Procedures NM Bone Scan Whole Body Gorge Soto MD [facility] [place] [address] [place] [address] Referral ID Status Reason Start Date Expiration Date V isits Requested Visits Authorized [id number] Closed Specialty Service Requested 07/03/2020 01/03/2022 1 1 Encounter Details Date Type Department Care Team (Latest Contact Info) Description 07/04/2020 2:50 PM EST - 07/04/2020 11:59 PM EST Hospital Encounter [place] [address] Gorge Soto MD [facility] [place] [address] Discharge Disposition: Home Social History [...] EDT Office Visit Radiation Oncology at [address] [phone] Eleonora Mensah MD [facility] [place] [address] documented as of this encounter Procedures Procedure Name Priority Date/Time Associated Diagnosis Comments NM BONE SCAN WHOLE BODY Routine 07/04/2020 3:24 PM EST Malignant neoplasm of right breast in female, estrogen receptor positive, unspecified site of breast documented in this encounter Results * NM Bone Scan Whole Body (07/04/2020 3:24 PM EST) Anatomical Region Laterality Modality Nuclear Medicine Impressions 07/04/2020 4:09 PM EST No skeletal metastasis. I have personally reviewed the image(s) and the resident's interpretation and agree with the findings, Finn Zhu MD at 07/04/2020 4:09 PM Thank you for letting us participate in the care of this patient. For questions regarding this report, please contact the number below. ? Narrative 07/04/2020 4:09 PM EST EXAMINATION: NM BONE SCAN WHOLE BODY CLINICAL HISTORY: Breast cancer, staging LOCALLY ADVANCED BREAST CANCER TECHNIQUE: Three hours following the intravenous administration of 24.2 mCi of technetium-99m MDP, planar images of the skeleton in anterior and posterior projection were obtained. COMPARISON: None FINDINGS: No abnormal osseous activity is present. Normal renally excreted activity in the kidneys and in the urinary bladder. Procedure Note Finn Zhu MD - 07/04/2020 EXAMINATION: NM BONE SCAN WHOLE BODY CLINICAL HISTORY: Breast cancer, staging LOCALLY ADVANCED BREAST CANCER TECHNIQUE: Three hours following the intravenous administration of 24.2mCi of technetium-99m MDP, planar images of the skeleton in anterior andposterior projection were obtained. COMPARISON: None FINDINGS: No abnormal osseous activity is present. Normal renally excreted activity in the kidneys and in the urinarybladder. IMPRESSION No skeletal metastasis. I have personally reviewed the image(s) and the resident's interpretationand agree with the findings, Finn Zhu MD at 07/04/2020 4:09 PM Thank you for letting us participate in the care of this patient. Forquestions regarding this report, please contact the number below. Gorge Soto MD [facility] ORDERABLES documented in this encounter Visit Diagnoses Not on filedocumented in this encounter Care Teams Proposal Manager Relationship Specialty Start Date End Date Charleen Williamson APRN [address] [place] [address] PCP - General Family Medicine 06/29/20 documented as of this encounter
--- OUTSIDE RECORDS SUMMARY | 2024-05-09 14:07 | XMS_ITS | Encounter Summary ---
[place] [address] Care Team Providers Care Fibreglass Lay Up Worker Name Role Phone ClayNiharika packerhrjessica White IVY Primary Care Provider [phone] [phone] Encounter Details Date Type Department Care Team (Latest Contact Info) Description 06/29/2020 2:02 PM EST - 06/29/2020 2:17 PM EST Hospital En[place] [address] Bhavik Boucher MD Abnormal mammogram Discharge Disposition: Home Social History Tobacco Use Types Packs/Day Years Used Date Smoking Tobacco: Never Assessed Sex and Gender Information Value Date Recorded Sex Assigned at Female 07/19/2020 8:39 AM EDT Gender Identity Female 08/04/2022 1:11 PM EDT Sexual Orientation Straight 08/04/2022 1: 11 PM EDT documented as of this encounter Progress Notes * Gali Smith MD - 06/29/2020 2:20 PM EST Pre-procedure note for needle breast biopsies performed in radiology. Procedure date: Today Procedure type: right Breast and axilla ultrasound guided biopsy Allergies: Patient has no allergy information on record. Medications: No current outpatient medications on file. Anticoagulation status: none stopped on: N/A Imaging reviewed and procedural plan approved by Dr. Gali Smith MD documented in this encounter Plan of Treatment Upcoming Encounters Date Type Department Care Team (Late st Contact Info) Description 02/13/2025 1:00 PM EDT Office Visit Radiation Oncology at [address] [phone] Eleonora Mensah MD [facility] [address] [place] [address] documented as of this encounter Procedures Procedure Name Priority Date/Time Associated Diagnosis Comments MAMMO US BIOPSY RIGHT Routine 06/29/2020 3:05 PM EST Abnormal mammogram documented in this encounter Results * Mammo Us Biopsy Right (06/29/2020 3:05 PM EST) Anatomical Region Laterality Modality Breast Right Mammography Impressions 07/03/2020 8:38 AM EST Concordant result RECOMMENDATION: Definitive management. I phoned these results and recommendations to the patient on 07/03/2020 at 0835 hours. REVIEW PATH CONFERENCE?: No Thank you for letting us participate in the care of this patient. For questions regarding this report, please contact the number below. ? Narrative 07/03/2020 8:38 AM EST RIGHT BREAST [...] obtained using a 14-gauge automated device. A [employer] twirl marker clip was placed. The clip was in satisfactory position sonographically. RIGHT BREAST LESION #1:Using local anesthetic (less than 5 cc of 1% lidocaine), sterile technique, and ultrasound guidance the lesion in the right breast was localized and sampled. Multiple satisfactory core biopsy specimens were obtained using a 14-gauge automated device. A [employer] hooked coil 14G marker clip was placed. [...] unspecified documented in this encounter Care Teams Fibreglass Lay Up Worker Relationship Specialty Start Date End Date Charleen Williamson APRN [address] [place] [address] PCP - General Family Medicine 06/29/20 documented as of this encounter
--- OUTSIDE RECORDS SUMMARY | 2024-05-09 14:07 | XMS_ITS | Encounter Summary ---
[place] [address] Care Team Providers Care Tile Conduit Layer Name Role Phone Charleen Williamson APRN Primary Care Provider +1 [phone] Encounter Details Date Type Department Care Team (Late st Contact Info) Description 07/04/2020 Patient Outreach Hematology [place] [phone] Denia Zhong, RN Social History Tobacco Use [...] Telephone Encounter - Denia Zhong RN - 07/04/2020 4:08 PM EST [facility] Nurse Navigation Patient Care Plan for the Comprehensive Breast Program(CBP) Reason for call: contacted Alis R Ricardo via phone to assess for nurse navigation services afterDr. Osuna informed her that her breast biopsy results indicated she has breast cancer, and to introduce her to the CBP. Alis R Ricardo is a 29 y.o. 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 Alis sounds concerned and states she is not that great right now. They were driving home after her bone scan today. She has support. Her will drive with her on 07/11 and will accompany her to appointment via phone. She is anxious to meet with a breast surgeon and medical oncologist (07/18) to determine a treatment plan. Alis asked about the bore size of the breast MRI (for 07/11) and states the bone scan made her feel claustrophobic today. We can either reschedule the breast MRI to another date (with sedation) or she may ask her PCP for something for sedation to take prior to MRI. She is not sure if she will needanything since she will be lying face down for the MRI. States she had been working but currently not employed. She has Medicaid. States they are barely scraping by financially and could use help with gas assistance/gas card. [facility] is not active. Plan: Appointments for breast MRI, CT scan and consultations with a breast surgeon and a medical oncologist have been scheduled. She was introduced to the CBP and told she would receive information about her diagnosis and treatment for her review (the Breast Cancer Treatment Handbook; link and access code to the [facility] Early-Stage: Invasive Breast Cancer and Early-Stage Breast Cancer: Systemic Adjuvant Treatment Options programs e-mailed to Alis). Plan to meet with her on the day of her surgical consult apt. at 3:30 on 07/11. She understands that Ronda Silva, MILAGROS, JOE and I are available to her for support/concerns. Addressed her questions and encouraged her to contact me with any additional questions or concerns.She has our contact information. FAMILY HISTORY Breast Cancer: PGM in her 80's (a few years ago) Ovarian Cancer: and cervical CA in her PAunt in her 50's, less than 10 years ago. She does not know if her aunt underwent genetic testing. She understands she may be referred for genetic testing (she would be a candidate). Laterality:Right Is this a recurrence:No Family history of breast cancer:Yes Family history of ovarian cancer: Yes Personal history or breast cancer:No Method of detection: Patient detected Method of diagnosis: Ultrasound Core Biopsy Patient comments or concerns: financial challenges and could use assistance. documented in this encounter Plan of Treatment Upcoming Encounters Date Type Department Care Team (Late st Contact Info) Description 02/13/2025 1:00 PM EDT Office Visit Radiation Oncology at [address] [address] Eleonora Mensah MD [facility] [place] [address] documented as of this encounter Visit Diagnoses Not on filedocumented in this encounter Care Teams Tile Conduit Layer Relationship Specialty Start Date End Date Charleen Williamson APRN [address] [place] [address] PCP - General Family Medicine 06/29/20 documented as of this encounter
--- OUTSIDE RECORDS SUMMARY | 2024-05-09 14:07 | XMS_ITS | Encounter Summary ---
Author Organization [facility] [place] [address] Care Team Providers Care Food Equipment Service Technician Name Role Phone Clay, Charleen White APRN Primary Care Provider [phone] [phone] Encounter Details Date Type Department Care Team (Latest Contact Info) Description 06/29/2020 2:18 PM EST - 06/29/2020 11:59 PM EST Hospital [place] [address] Bhavik Boucher MD Abnormal ultrasound Discharge Disposition: Home Social History Tobacco Use [...] EDT Office Visit Radiation Oncology at [address] [address] Eleonora Mensah MD [facility] [address] RADIATION [place] [address] documented as of this encounter Procedures Procedure Name Priority Date/Time Associated Diagnosis Comments MAMMO US BIOPSY LYMPH NODE RIGHT Routine 06/29/2020 3:29 PM EST Abnormal ultrasound SPECIMEN TO PATHOLOGY Routine 06/29/2020 2:58 PM EST SURGICAL PATHOLOGY REPORT Routine 06/29/2020 2:48 PM EST SPECIMEN TO PATHOLOGY Routine 06/29/2020 2:48 PM EST documented in this encounter Results * Mammo US Biopsy Lymph Node Right (06/29/2020 3:29 PM EST) Anatomical Region Laterality Modality Breast [...] ? Electronically signed by: Danni Osuna MD, [facility] ([phone]), at 07/03/2020 8:38 AM Narrative 07/03/2020 8:38 [...] obtained using a 14-gauge automated device. A AddShoppers twirl marker clip was placed. The clip [...] mammography. COMPLICATIONS: None. PROCEDURAL ATTESTATION: Resident: Rachele I performed the procedure with the resident observing. IMAGING DIFFERENTIAL DIAGNOSIS: Right axilla: Benign hyperplasia, metastatic breast cancer Right breast lesion #1: Invasive ductal carcinoma PATHOLOGIC DIAGNOSIS: Invasive ductal carcinoma with lobular features right breast Metastatic breast cancer right axilla Bhavik Boucher MD IMG MAMMO ORDERABLES * Specimen to Pathology (06/29/2020 2:58 PM EST) AP Specimen 06/29/2020 2:58 PM EST 06/29/2020 2:58 PM EST Narrative [facility] - 06/29/2020 2:58 PM EST Specimen requisition ordered. ??Separate Pathology report to follow Danni Osuna MD PATHOLOGY/CYTOLOGY ORDERABLES [facility] [place] [address] * Surgical Pathology Report (06/29/2020 2:48 PM EST) Final Diagnosis [id number] ? Location: 3L The signing pathologist has (i) examined the relevant preparation(s) for the specimen(s) and (ii) rendered or confirmed the diagnosis(es). . ?Molecular Genetics RESULTS TEST: HER2 (ERBB2) FISH, Breast METHOD: Fluorescence in situ hybridization (FISH) with chromosome 17 centromere (17p11.1-q11.1) probe and a locus specific probe for the HER2 gene locus (17q11.2- q12). SAMPLE ANALYZED: A2-6 RESULT: ?POSITIVE FOR HER2/ANNE MARIE AMPLIFICATION ? TOTAL # SIGNALS/TOTAL # NUCLEI COUNTED FOR HER2 PROBE = 828 ? TOTAL # SIGNALS/TOTAL # NUCLEI COUNTED FOR CEP-17 PROBE = 65 ? HER2 TO CEP-17 RATIO = 12.7 ? (NORMAL RANGE <2.0) ? TOTAL # NUCLEI COUNTED = 40 ? AVERAGE # HER2 signals/cell = 20.7 Interpretation: ??Paraffin-embedde d tissue sections were submitted for HER2 (ERBB2) gene amplification analysis by FISH. ??Direct analysis was performed using the [employer]. ??Slide adequacy and signal enumeration were evaluated and satisfactory for both control and patient slides. ??A signal ratio derived from the HER2 probe and the CEP-17 centromere probe of ?2.0 is considered positive for HER2 gene amplification. The 2013 ASCO/CAP guideline recommendation for HER2 testing in breast cancer states that samples with a HER2 to CEP-17 ratio of less than 2.0 are non-amplified. Specimens with a HER2 to CEP-17 range of ?2.0 are considered amplified. This test is approved by the U.S. FDA for clinical diagnostic use. Reference: Karla GUERRIER, et al. Recommendations for human epidermal growth factor receptor 2 testing in breast cancer: [place] Society of Clinical Oncology/College of [place] Pathologists clinical practice guideline update. J Clin Oncol. 2013 Feb 25. Karla GUERRIER, et al. Human Epidermal Growth Factor Receptor 2 Testing in Breast Cancer: [place] Society of Clinical Oncology/College of [place] Pathologists Clinical Practice Guideline Focused Update. Arch Pathol Lab Med. 2017September 23/J Clin Oncol. 2017September 23. Electronically signed by: ??Jolly Lewis MD Verified: ??07/09/2020 ?Pathologist Performed at: ??-[facility] [place], [place], [place] ?Surgical Pathology DIAGNOSIS A - ??Needle biopsies: ??Right axillary node Diagnosis: ?Lymph node with metastatic carcinoma Microcalcification s: ??N/A . DIAGNOSIS ER immunoreactivity: Positive (70-80% cancer cells with immunostaining) Stain intensity: Moderate to strong CT immunoreactivity: Positive (1-10% cancer cells with immunostaining) Stain intensity: Weak HER2 FISH: separate report to follow B - ??Needle biopsies: ??Right breast Diagnosis: ?Invasive carcinoma with ductal and lobular features (see discussion) Microcalcification s: ??N/A Electronically signed by: ??Josue CRAFT, Jeff Peoples Verified: ??07/02/2020 ?Pathologist Performed at: ??-[facility]. [place]ology, [place], [place] DISCUSSION Part B contains marked crush artifact making morphologic evaluation and tumor grading difficult. Based on the findings in Part A, the tumor appears to be at least intermediate grade and possibly high grade. E-cadherin immunostains performed on Parts A and B display mostly an intact membranous staining pattern, but with focal areas demonstrating partial loss/cytoplasmic staining. ADDITIONAL STUDIES Immunohistochemist ry Studies: Block ? Antibody ?Result (Positive/Negative ) A2 ? E-cadherin ? see discussion A2 ? ER ? Positive A2 ? CT ? Positive B1 ? E-cadherin ? see discussion ? *Diagnostic ramirez for hormone receptors (ASCO/CAP GUIDELINES, 2020): ?Negative immunoreactivity: <1% tumor cells with immunostaining ?Positive immunoreactivity: >=1% tumor cells with immunostaining ??Low Positive: 1-10% tumor cells with immunostaining* *There are limited data on the overall benefit of endocrine therapies for patients with low level (1-10%) ER expression, but they currently suggest possible benefit, so patients are considered eligible for endocrine treatment. There are data that suggest invasive cancers with these results are heterogeneous in both behavior and biology and often have gene expression profiles more similar to ER-negative cancers. Immunohistochemica l assays were performed on paraffin-embedded tissue sections fixed in 10% neutral buffered formalin for 6-72 hours using the polymer system technique with appropriate controls. The assays were performed according to the commercial lines manager ? 's instructions using Anti-ER (SP1) and Anti-CT (16) antibodies. These tests were developed and their performance characteristics determined by [facility]. They may not have been cleared or approved by the US Food and Drug Administration. The FDA does not require such tests to go through premarket FDA review. These tests are used for clinical purposes and should not be regarded as investigational or for research. This laboratory is certified under the Clinical Laboratory Improvement Amendments (CLIA) as qualified to perform high complexity clinical laboratory testing. . SPECIMEN(S) SUBMITTED A - RIGHT AXILLARY NODE CORE NEEDLE BIOPSY (4) B - RIGHT BREAST CORE NEEDLE BIOPSY (3) CLINICAL INFORMATION A - Axillary node. 1-reactive; 2-mary involvement B - Mass. 1-IDC SPECIMEN PROCESSING A - Labeled/Fixative: Right axillary node core needle biopsy, formalin. Quantity/Size: Six, ranging from 0.5-1.3 x 0.2 cm Tissue Description: [place] to yellow-gibbs, focally hemorrhagic fibrofatty needle core biopsies. Sections/Processin g: Entirely submitted in 2 cassettes labeled A1-A2. Ischemic Time: 5 minutes B - Labeled/Fixative: Right breast core needle biopsy, formalin. Quantity/Size: Three, ranging from 0.7-1.7 x 0.2 cm Tissue Description: Yellow gibbs to pink-white fibrofatty needle core biopsies and clotted blood. Sections/Processin g: Entirely submitted in 1 cassette labeled B1. Ischemic Time: 4 minutes ??shb 07/09/2020 5:23 PM EDT [facility] BREAST STRUCTURE / Unknown 06/29/2020 2:48 PM EST 06/29/2020 2:48 PM EST BREAST STRUCTURE / Unknown 06/29/2020 2:48 PM EST 06/29/2020 2:48 PM EST Danni Osuna MD PATHOLOGY/CYTOLOGY ORDERABLES Performing Organization Address City/[facility]/[place] [address] * Specimen to Pathology (06/29/2020 2:48 PM EST) AP Specimen 06/29/2020 2:48 PM EST 06/29/2020 2:48 PM EST Narrative [facility] - 06/29/2020 2:48 PM EST Specimen requisition ordered. ??Separate Pathology report to follow Danni Osuna MD PATHOLOGY/CYTOLOGY ORDERABLES Performing Organization Address City/[facility] [place] [address] documented in this encounter Visit Diagnoses Diagnosis Abnormal ultrasound Other nonspecific (abnormal) findings on radiological and other examinations of body structure documented in this encounter Administered Medications Inactive Administered Medications - up to 3 most recent administrations Medication Order MAR Action Action Date Dose Rate Site lidocaine (Xylocaine) 1% (10 mg/mL) injection 10 mg 10 mg, Intradermal, ONCE, 1 dose, On Thu06/29/20 at 1515, Routine Given 06/29/2020 2:48 PM EST 10 mg lidocaine (Xylocaine) 1% (10 mg/mL) injection 10 mg 10 mg, Intradermal, ONCE, 1 dose, On Thu06/29/20 at 1515, Routine Given 06/29/2020 3:00 PM EST 10 mg documented in this encounter Care Teams Food Equipment Service Technician Relationship Specialty Start Date End Date Charleen Williamson APRN [address] [place] [address] PCP - General Family Medicine 06/29/20 documented as of this encounter
--- OUTSIDE RECORDS SUMMARY | 2024-05-09 14:07 | XMS_ITS | Encounter Summary ---
[place] [address] Care Team Providers Care Lead Software Qa Engineer Name Role Phone Charleen Williamson APRN Primary Care Provider [phone] [phone] Encounter Details Date Type Department Care Team (Late st Contact Info) Description 07/10/2020 Patient Outreach Hematology [place] [phone] Denia Zhong, RN Social History Tobacco Use [...] Telephone Encounter - Denia Zhong RN - 07/10/2020 2:56 PM EDT [facility] Nurse Navigator Call for the Comprehensive Breast Program (CBP) ?? Alis Silva is a 29 y.o. 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 She is scheduled to meet with Dr. Hunt, surgical oncologist, on 07/11 along with breast MRI and CT scans and to meet with Dr. Cornejo, medical oncologist, on 07/18. Bone scan completed on 07/04 (no skeletal metastasis). Reason for call: Returned Alis's call. She LM to ask if the oncologist recommends a COVID vaccineand, per her PCP, if this is recommended if we could move her oncology appt. up from next week to an earlier date. Plan: LM for Alis. We do recommend she get the vaccine. Dr. Hunt can speak with her on 07/11 regarding timing related to surgery (typically 1 week before or after surgery) and Dr. Cornejo can speak with her regarding timing related to chemotherapy/targeted therapy. We probably can not move her medical oncology appt. to an earlier date but she was given the numberfor our CBP to call if she would like to speak with our schedulers about this. Plan to meet with Alis on 07/11 before her surgical oncology consult. documented in this encounter Plan of Treatment Upcoming Encounters Date Type Department Care Team (Late st Contact Info) Description 02/13/2025 1:00 PM EDT Office Visit Radiation Oncology at [address] [phone] Eleonora Mensah MD [facility] [place] [address] documented as of this encounter Visit Diagnoses Not on filedocumented in this encounter Care Teams Lead Software Qa Engineer Relationship Specialty Start Date End Date Charleen Williamson APRN [address] [place] [address] PCP - General Family Medicine 06/29/20 documented as of this encounter
--- OUTSIDE RECORDS SUMMARY | 2024-05-09 14:07 | XMS_ITS | Encounter Summary ---
Author Organization [facility] [place] [address] Care Team Providers Care Practical Nursing Teacher Name Role Phone Charleen Williamson APRN Primary Care Provider [phone] [phone] Reason for Referral * Diagnostic Test (Routine) - Closed Specialty Diagnoses / Procedures Referred By Contac t Referred To Contact Radiology Diagnoses Malignant neoplasm of right breast in female, estrogen receptor positive, unspecified site of breast Procedures NM Bone Scan Whole Body Gorge Soto MD [facility] [place] [address] [place] [address] Referral ID Status Reason Start Date Expiration Date V isits Requested Visits Authorized [id number] Closed Specialty Service Requested 07/03/2020 01/03/2022 1 1 Reason for Visit * Diagnostic Test (Routine) - Closed Specialty Diagnoses / Procedures Referred By Contac t Referred To Contact Radiology Diagnoses Malignant neoplasm of right breast in female, estrogen receptor positive, unspecified site of breast Procedures NM Bone Scan Whole Body Gorge Soto MD [facility] [place] [address] [facility] [place] [address] Referral ID Status Reason Start Date Expiration Date V isits Requested Visits Authorized [id number] Closed Specialty Service Requested 07/03/2020 01/03/2022 1 1 Encounter Details Date Type Department Care Team (Latest Contact Info) Description 07/04/2020 12:00 PM EST - 07/04/2020 2:49 PM EST Hospital Encounter [place] [address] Gorge Soto MD [facility] [place] [address] Malignant neoplasm of right breast in female, [...] EDT Office Visit Radiation Oncology at [address] [address] Eleonora Mensah MD [facility] [place] [address] documented as of this encounter Procedures Procedure [...] contact the number below. Gorge Soto MD [facility] [place] ORDERABLES documented in this encounter Visit [...] Intravenous, ONCE PRN, 1 dose, Starting on Thu07/04/20 at 1223, Until Thu07/04/20 at 1210, Per Protocol, Radiology Contrast, Routine Given 07/04/2020 12:10 PM EST 24.2 mCi Left Arm documented in this encounter Care Teams Practical Nursing Teacher Relationship Specialty Start Date End Date Charleen Williamson APRN [address] [place] [address] PCP - General Family Medicine 06/29/20 documented as of this encounter
--- OUTSIDE RECORDS SUMMARY | 2024-05-09 14:07 | XMS_ITS | Encounter Summary ---
Author Organization [facility] [place] [address] Care Team Providers Care Credit Union Teller Name Role Phone Charleen Williamson APRN Primary Care Provider [phone] [phone] Encounter Details Date Type Department Care Team (Late st Contact Info) Description 07/09/2020 [place] [phone] Ronda Silva MSW Social History Tobacco Use [...] Progress Notes * Ronda Silva MSW - 07/09/2020 10:25 AM EDT CCM/SW contacted pt after receiving a referral from Aniyah Zhong, [facility] Nurse Navigator, to assist with financial resources. Pt has a surgical consult on 07/[address] Hunt as she was diagnosed with breast cancer. She states she is not working because she is depressed and anxious. Pt is taking medication prescribed by her pcp but she is experiencing side effects and has an appt this afternoon to discuss changing her prescription. Alis lives with her who is disabled and receives disability benefits. They also get food stamps, fuel assistance and use the local food pantry. I gave pt information about CPSP, a program which assists cancer pts with household expenses. She was told that Dami give her gas cards on 07/11. Alis is borrowing her parents car to come to her appt. I told pt that [facility] visitor policy has changed and her can accompany her to her appt with Dr. Hunt.I encouraged pt to contact me with any questions or concerns. P- CCM/SW will continue to assess and address pt's psychosocial needs. documented in this encounter Plan of Treatment Upcoming Encounters Date Type Department Care Team (Late st Contact Info) Description 02/13/2025 1:00 PM EDT Office Visit Radiation Oncology at [address] [phone] Eleonora Mensah MD [facility] [place] [address] documented as of this encounter Visit Diagnoses Not on filedocumented in this encounter Care Teams Credit Union Teller Relationship Specialty Start Date End Date Charleen Williamson APRN [address] [place] [address] PCP - General Family Medicine 06/29/20 documented as of this encounter
--- OUTSIDE RECORDS SUMMARY | 2024-05-09 14:07 | XMS_ITS | Encounter Summary ---
[place] [address] Care Team Providers Care Assistant Tennis Coach Name Role Phone Unavailable Primary Care Provider Unavailabl e Encounter Details Date Type Department Care Team (Late st Contact Info) Description 06/28/2020 Telephone Hematology [place] [phone] Tamiko Joy Social History Tobacco Use Types Packs/Day Years Used Date Smoking Tobacco: Never Assessed Sex and Gender Information Value Date Recorded Sex Assigned at Female 07/19/2020 8:39 AM EDT Gender Identity Female 08/04/2022 1:11 PM EDT Sexual Orientation Straight 08/04/2022 1: 11 PM EDT documented as of this encounter Miscellaneous Notes * Telephone Encounter - Tamiko Joy - 06/28/2020 12:59 PM EST Alis Silva 1990 [id number] Referring provider: RORO CHAPMAN Date of Referral: 06/28/20 Please review outside breast imaging dated: 06/28/20 Reason for exam and clinical history:RIGHT BREAST MASS Category:5 Questions to be answered:BX MORE IMAGING Sending Institution: [facility] Patient would like treatment at:[facility] Call pt at: Mobile Not on file. documented in this encounter Plan of Treatment Upcoming Encounters Date Type Department Care Team (Late st Contact Info) Description 02/13/2025 1:00 PM EDT Office Visit Radiation Oncology at [address] [phone] Eleonora Mensah MD [facility] [place] [address] documented as of this encounter Visit Diagnoses Not on filedocumented in this encounter
--- OUTSIDE RECORDS SUMMARY | 2024-05-09 14:07 | XMS_ITS | Encounter Summary ---
Author Organization Formerly [facility] [place] [id number] Care Team Providers Care Post Tensioning Ironworker Name Role Phone Unavailable Primary Care Provider Unavailabl e Reason for Visit * - Closed Specialty Diagnoses / Procedures Referred By Fawn weston Referred To Contact Procedures Film Library Storage Only US Breast Charleen Williamson, GEOLOGICAL E LOGGER [address] [place] [address] Referral ID Status Reason Start Date Expiration Date Visits Re quested Visits Authorized [id number] Closed 06/28/2020 06/28/2021 1 1 Encounter Details Date Type Department Care Team (Late st Contact Info) Description 06/28/2020 1:55 PM EST Ancillary Procedure Radiology Library [place] [facility] [place] [id number] Charleen Williamson, GEOLOGICAL E LOGGER [address] [place] [address] [id number] Social History Tobacco Use Types Packs/Day Years [...] EDT Office Visit Radiation Oncology at [address] [phone] Eleonora Mensah MD [facility] [place] [address] documented as of this encounter Procedures Procedure Name Priority Date/Time Associated Diagnosis Comments FILM LIBRARY-STORAGE ONLY US BREAST Routine 06/28/2020 1:48 PM EST documented in this encounter Results * Film Library Storage Only US Breast (06/28/2020 1:48 PM EST) Narrative MATTHIAS - 06/28/2020 1:48 PM EST This exam is auto-finalizing. It's purpose is for storage only. Charleen BLANCO FILM LIBRARY ORDERABLES [place], [place] documented in this encounter Visit Diagnoses Not on filedocumented in this encounter
--- OUTSIDE RECORDS SUMMARY | 2024-05-09 14:07 | XMS_ITS | Encounter Summary ---
Author Organization [facility] [address] Care Team Providers Care Station Installer And Repairer Name Role Phone Charleen Williamson APRN Primary Care Provider [phone] [phone] Reason for Referral * Diagnostic Test (Routine) - Closed Specialty Diagnoses / Procedures Referred By Contac t Referred To Contact Radiology Diagnoses Malignant neoplasm of right breast in female, estrogen receptor positive, unspecified site of breast Procedures MRI Breast wwo Contrast Gorge Guerrero MD [facility] [place] [address] [place] [address] Referral ID Status Reason Start Date Expiration Date V isits Requested Visits Authorized [id number] Closed Specialty Service Requested 07/03/2020 01/03/2022 1 1 Reason for Visit * Diagnostic Test (Routine) - Closed Specialty Diagnoses / Procedures Referred By Contac t Referred To Contact Radiology Diagnoses Malignant neoplasm of right breast in female, estrogen receptor positive, unspecified site of breast Procedures MRI Breast wwo Contrast Gorge Guerrero MD [facility] [place] [address] [place] [address] Referral ID Status Reason Start Date Expiration Date V isits Requested Visits Authorized [id number] Closed Specialty Service Requested 07/03/2020 01/03/2022 1 1 Encounter Details Date Type Department Care Team (Latest Contact Info) Description 07/11/2020 5:36 PM EDT - 07/11/2020 11:59 PM EDT Hospital [place] [address] Gorge Soto MD [facility] [place] [address] Malignant neoplasm of right breast in female, [...] EDT Office Visit Radiation Oncology at [address] [phone] Eleonora Mensah MD [facility] [place] [address] documented as of this encounter Procedures Procedure Name Priority Date/Time Associated Diagnosis Comments MRI BREAST WWO CONTRAST BILAT Routine 07/11/2020 6:47 PM EDT Malignant neoplasm of right breast in female, estrogen receptor positive, unspecified site of breast documented in this encounter Results * MRI Breast wwo Contrast Bilat (07/11/2020 6:47 PM EDT) Anatomical Region Laterality Modality Breast Bilateral Magnetic Resonan ce Impressions 07/12/2020 12:00 PM EDT Right breast: Dominant retroareolar mass with contiguous nonmass enhancement extending to a second mass in the right upper outer quadrant suggestive of a satellite lesion with intervening DCIS. There is overlying skin thickening and distortion. Known right axillary node metastasis is visualized. Findings consistent with inflammatory breast cancer. Left breast: 6 mm mass with plateau kinetics. RECOMMENDATION: 1. ??Definitive treatment of right inflammatory breast cancer with associated mary metastasis. 2. ??Indeterminate focus in the deep central left breast for which MRI guided biopsy may be considered. RIGHT BREAST BIRADS BI-RADS Category 6: Known Biopsy-Proven Malignancy LEFT BREAST BIRADS BI-RADS Category 4: Suspicious Finding - Biopsy Should Be Considered I have personally reviewed the image(s) and the resident's interpretation and agree with the findings, Mili Whalen MD at 07/12/2020 12:00 PM Thank you for letting us participate in the care of this patient. For questions regarding this report, please contact the number below. ? 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 TECHNIQUE: Multiplanar sequences were obtained pre- and post- Dotarem enhancement, to include SPGR weighted dynamic run-off and subtraction sequences obtained after the intravenous administration of 18 ccs of Dotarem. Computer algorithm analysis for lesion detection and kinetic contrast enhancement curve analysis was performed, using [employer] software. COMPARISON STUDIES: Compared and/or correlated with prior studies including mammogram and ultrasound dated 06/29/2020. FINDINGS: Background Enhancement Pattern (first post Dotarem image): Mild (25-50% breast) Amount of Fibroglandular Tissue: Heterogeneous fibroglandular tissue LEFT Breast:There is a 6 mm mass with plateau kinetics that is not T2 bright. Consider MRI guided biopsy in this clinical setting. LEFT BREAST LESION #1: 0.6 cm Mass Deep central ??6 O'Clock 7.5 cm from the nipple by MRI. Mass: Shape: Oval/lobulated ??Margins: Circumscribed Enhancement: Homogenous Kinetics: Initial upslope: Medium Delayed phase: Plateau RIGHT Breast:There is a large irregular retroareolar mass CCL. An additional mass is present in the posterior right outer breast, likely satellite lesion. There is nonmass enhancement bridging these 2 masses likely corresponding to intervening DCIS. There is diffuse overlying skin thickening, distortion, and nipple retraction consistent with inflammatory breast cancer. RIGHT BREAST LESION #1: ??6.0 x 5.5 cm Mass Retroareolar region ??1.5cm from the nipple by MRI, Mass: Shape: Irregular Margins: Not circumscribed - Irregular Enhancement: Heterogeneous Kinetics: Initial upslope: Fast Delayed phase: Washout RIGHT BREAST LESION #2: ??1.7 x 0.9 ??cm Mass Upper outer quadrant 10 O'Clock r 8.5 cm from the nipple by MRI Mass: Shape: Irregular Margins: Not circumscribed - Irregular Enhancement: Heterogeneous Kinetics: Initial upslope: Fast Delayed phase: Washout Non mass enhancement: There is clumped nonmass enhancement with mixed kinetics extending between the dominant mass (lesion #1) and the mass in the right upper outer quadrant (lesion #2). Lymph Node Basins/Other: Biopsy-proven metastatic right axillary node is identified with adjacent postbiopsy change. No additional morphologically abnormal lymph nodes are seen. No significant abnormalities are seen in the chest wall.. Diffuse skin thickening of the right breast is identified consistent with inflammatory breast cancer. Gorge Soto MD IMG MRI ORDERABLES documented in this [...] PRN, 1 dose, Starting on Thu07/11/20 at 1824, Until Thu07/11/20 at 1828, Per Protocol, Radiology Contrast, Routine Given 07/11/2020 6:28 PM EDT 18 mLs documented in this encounter Care Teams Station Installer And Repairer Relationship Specialty Start Date End Date Charleen Williamson, MANAGER FLORAL [address] [place] [address] PCP - General Family Medicine 06/29/20 documented as of this encounter
--- OUTSIDE RECORDS SUMMARY | 2024-05-09 14:07 | XMS_ITS | Encounter Summary ---
Author Organization [facility] [place] [address] Care Team Providers Care Junior Business Analyst Name Role Phone Clay, Charleen White APRN Primary Care Provider [phone] [phone] Encounter Details Date Type Department Care Team (Latest Contact Info) Description 06/29/2020 1:59 PM EST - 06/29/2020 2:01 PM EST Hospital En[place] [address] Bhavik Boucher MD Abnormal mammogram Discharge Disposition: [...] PM EDT Office Visit Radiation Oncology at [address] [phone] Eleonora Mensah MD [facility] [address] [place] [address] documented as of this encounter Procedures Procedure Name Priority Date/Time Associated Diagnosis Comments MAMMO US AXILLA RIGHT Routine 06/29/2020 2:30 PM EST Abnormal mammogram documented in this encounter Results * Mammo US Axilla Right (06/29/2020 2:30 PM EST) Anatomical Region Laterality Modality Breast Right Mammography Impressions 06/29/2020 3:48 PM EST Morphologically abnormal 0.8 cm nonenlarged right axillary lymph node. Recommend ultrasound-guided core biopsy of the right axillary lymph node at the time of the biopsy of the highly suspicious right breast mass. This is performed and dictated separately on the day of the patient's visit. Right axilla: BI-RADS Category 4: Suspicious Finding - Biopsy Should Be Considered Thank you for letting us participate in the care of this patient. For questions regarding this report, please contact the number below. ? Electronically signed by: Danni Osuna MD, [facility] ([phone]), at 06/29/2020 3:48 PM Narrative 06/29/2020 3:48 PM EST EXAMINATION: MAMMO US AXILLA RIGHT CLINICAL HISTORY: Abnormal mammogram TECHNIQUE: High-resolution ultrasound was performed of the right axilla. COMPARISON: This study was compared with prior images. FINDINGS: There are no enlarged right axillary lymph nodes. However, there is a morphologically abnormal lymph node in the mid right axilla measuring 0.8 cm there is cortical thickness is 0.4 cm, mildly thick. Bhavik Boucher MD IMG MAMMO ORDERABLES documented in this encounter Visit Diagnoses Diagnosis Abnormal mammogram Abnormal mammogram, unspecified documented in this encounter Care Teams Junior Business Analyst Relationship Specialty Start Date End Date Charleen Williamson APRN [address] [place] [address] PCP - General Family Medicine 06/29/20 documented as of this encounter
--- OUTSIDE RECORDS SUMMARY | 2024-05-09 14:07 | XMS_ITS | Encounter Summary ---
Author Organization [facility] Address [facility] [place] [address] Care Team Providers Care Correctional Manager Name Role Phone Charleen Williamson APRN Primary Care Provider [phone] Reason for Referral * Diagnostic Test (Routine) - Closed Specialty Diagnoses / Procedures Referred By Contac t Referred To Contact Radiology Diagnoses Malignant neoplasm of right breast in female, estrogen receptor positive, unspecified site of breast Procedures CT Chest Abdomen Pelvis w Contrast (Generic) Gorge Soto MD [facility] [place] [address] [facility] [place] [address] Referral ID Status Reason Start Date Expiration Date V isits Requested Visits Authorized [id number] Closed Specialty Service Requested 07/03/2020 01/03/2022 1 1 * Diagnostic Test (Routine) - Closed Specialty Diagnoses / Procedures Referred By Contac t Referred To Contact Radiology Diagnoses Malignant neoplasm of right breast in female, estrogen receptor positive, unspecified site of breast Procedures NM Bone Scan Whole Body Gorge Soto MD [facility] [place] [address] [facility] [place] [address] Referral ID Status Reason Start Date Expiration Date V isits Requested Visits Authorized [id number] Closed Specialty Service Requested 07/03/2020 01/03/2022 1 1 * Diagnostic Test (Routine) - Closed Specialty Diagnoses / Procedures Referred By Fawn weston Referred To Contact Radiology Diagnoses Malignant neoplasm of right breast in female, estrogen receptor positive, unspecified site of breast Procedures MRI Breast wwo Contrast Bilat Gorge Soto MD [facility] [place] [address] [place] [address] Referral ID Status Reason Start Date Expiration Date V isits Requested Visits Authorized [id number] Closed Specialty Service Requested 07/03/2020 01/03/2022 1 1 Encounter Details Date Type Department Care Team (Late Contact Info) Description 07/03/2020 Orders [place] [phone] Gorge Soto MD [facility] [place] [address] Malignant neoplasm of right breast in female, [...] EDT Office Visit Radiation Oncology at [address] [phone] Eleonora Mensah MD [facility] [place] [address] documented as of this encounter Results * [...] contact the number below. ? Narrative 07/12/2020 12:00 PM EDT BILATERAL BREAST MRI CLINICAL INDICATION: Breast biopsy proven right inflammatory breast cancer. TECHNIQUE: Multiplanar sequences were obtained pre- and post- Dotarem enhancement, to include SPGR weighted dynamic run-off and subtraction sequences obtained after the intravenous administration of 18 ccs of Dotarem. Computer algorithm analysis for lesion detection and kinetic contrast enhancement curve analysis was performed, using [employer] software. COMPARISON STUDIES: Compared and/or correlated with [...] identified consistent with inflammatory breast cancer. Gorge P Loehrer MD IMG MRI ORDERABLES * CT Chest Abdomen Pelvis w Contrast [...] the number below. ? Electronically signed by: Bipin Contreras MD, [facility] ([phone]), at 07/12/2020 9:17 AM Narrative 07/12/2020 9:17 AM EDT EXAMINATION: CT [...] pathologically enlarged thoracic nodes identified. Mediastinum and móncia: Normal. Chest wall/breasts: 3.6 x 1.7 cm [...] contact the number below. Electronically signed by: Bipin Contreras MD, [facility]([phone]), at 07/12/2020 9:17 AM Gorge Soto MD IMG CT ORDERABLES * NM Bone Scan Whole Body (07/04/2020 [...] contact the number below. Gorge Soto MD [facility] ORDERABLES * (ABNORMAL) Comprehensive metabolic panel (non-fasting) (07/04/2020 11:57 AM EST) Glucose 93 65 - 199 mg/dL [facility] Comment:Diabetes: >=200 mg/d L plus symptoms Blood Urea Nitrogen 9 8 - 18 mg/dL [facility] Creatinine 0.74 0.70 - 1.20 mg/dL [facility] Sodium 139 135 - 145 mmol/L [facility] Potassium 3.9 3.5 - 5.0 mmol/L [facility] Comment: Please note: ??Patients with WBC >100,000 may have falsely elevated Potassium levels. ??For accurate Potassium quantification in these patients send serum separator tube (gold top) for subsequent determinations. ??Contact the Clinical Chemistry Laboratory if there are any questions. Chloride 104 98 - 107 mmol/L [facility] Carbon Dioxide 23 22 - 31 mmol/L [facility] Anion Gap 12 5 - 15 mmol/L [facility] Calcium 10.0 8.5 - 10.5 mg/dL [facility] Protein, Total 8.7(H) 6.1 - 8.0 gm/dL [facility] Albumin 4.8 3.2 - 5.2 gm/dL [facility] Aspartate Aminotransferase 15 0 - 30 unit/L [facility] Alanine Aminotransferase 10 0 - 30 unit/L [facility] Alkaline Phosphatase 79 35 - 105 unit/L [facility] Bilirubin, Total 0.7 0.2 - 1.3 mg/dL [facility] Est Glomerular Filtration Rate 111 >=60 mL/min/1. 73 m?? [facility] [...] In Lab Gorge Soto [place] [address] documented in this encounter Visit Diagnoses Diagnosis [...] breast documented in this encounter Care Teams Correctional Manager Relationship Specialty Start Date End Date Charleen Williamson APRN [address] [place] [address] PCP - General Family Medicine 06/29/20 documented as of this encounter
--- OUTSIDE RECORDS SUMMARY | 2024-05-09 14:07 | XMS_ITS | Encounter Summary ---
Author Organization [facility] Address [facility] [place] [address] Care Team Providers Care General Clerk Name Role Phone Unavailable Primary Care Provider Unavailabl e Reason for Visit * - Closed Specialty Diagnoses / Procedures Referred By Fawn t Referred To Contact Procedures Film Library- Storage Only Mammo Charleen Williamson APRN [address] [place] [address] Referral ID Status Reason Start Date Expiration Date Visits Re quested Visits Authorized [id number] Closed 06/28/2020 06/28/2021 1 1 Encounter Details Date Type Department Care Team (Late st Contact Info) Description 06/28/2020 1:50 PM EST Ancillary Procedure Radiology Library [place] [address] Charleen Williamson, PROGRAM MANUFACTURING LEADER [address] [place], [place] [id number] Social History Tobacco Use Types Packs/Day Years [...] EDT Office Visit Radiation Oncology at [address] [phone] Eleonora Mensah MD [facility] [place] [address] documented as of this encounter Procedures Procedure Name Priority Date/Time Associated Diagnosis Comments FILM LIBRARY STORAGE ONLY MAMMO Routine 06/28/2020 1:45 PM EST documented in this encounter Results * Film Library- Storage Only Mammo (06/28/2020 1:45 PM EST) Narrative [facility] - 06/28/2020 1:45 PM EST This exam is auto-finalizing. It's purpose is for storage only. Charleen BLANCO FILM LIBRARY ORDERABLES [place], [place] documented in this encounter Visit Diagnoses Not on filedocumented in this encounter
[2024-05-09 15:10] LABS: Bilirubin Negative (Negative); Blood Negative (Negative); Clarity Sl Cloudy (Clear); Glucose Negative (Negative); Ketones Negative (Negative); Leukocyte Esterase Negative (Negative); Nitrite Negative (Negative); Specific Gravity >= 1.030 (1.005-1.025); Urobilinogen 0.2 mg/dL (Up to 0.2)
[2024-05-09 15:59] LABS: COMMENT (LAB VIEW ONLY) 214.46 mg/dL; Microalb ug/mg Crea 7.7 ug/mg Cr
== END 2024-05-09 13:53 | disposition home or self-care (01) ==
LOC: NCHCN 13:52
PROVIDERS: PCP Nurse Practitioner Family; Visit Provider Nurse Practitioner Family
DX: I10 Essential (primary) hypertension (principal)
CPT/HCPCS: 81003; 82043; 82570

== ENCOUNTER 2025-01-24 17:29 | Outpatient (REF) | payer OTHER, SELFPAY ==
[2025-01-24 14:26] LABS: Abs Immature Grans 0.16 10^3/uL (0.0-0.06); HCT 34.4 % (36.0-46.0); HGB 11.7 g/dL (11.2-15.7); Immature Grans % 1.0 %; MCH 31.2 pg (27.0-33.0); MCHC 34.0 % (32.0-36.0); MCV 92 fL (80-95); MPV 8.4 fL (8.0-11.0); Platelet Count 297 10^3/uL (130-400); RBC 3.75 10^6/uL (3.93-5.22); RDW 12.1 % (11.7-14.6); RDW-SD 40.2 fL; WBC 15.28 10^3/uL (4.4-10.8)
[2025-01-24 15:13] LABS: Iron 71 ug/dL (50-170); Total Iron Binding Capacity 417 ug/dL (250-450); Transferrin Sat 17 % (15-50)
== END 2025-01-24 17:30 | disposition home or self-care (01) ==
LOC: NCHCN 17:29
PROVIDERS: PCP Nurse Practitioner Family; Visit Provider Nurse Practitioner Family
DX: R07.89 Other chest pain (principal)
CPT/HCPCS: 83540; 83550; 85025